=== PATIENT | female | born 1995 | race Caucasian/White ===

== ENCOUNTER 2023-05-12 21:09 | Outpatient (REF) | payer OTHER, SELFPAY ==
[2023-05-17 11:08] LABS: Age Gdln ACOG Testing Note (.); IGP, rfx Aptima HPV ASCU Note (.)
== END 2023-05-12 21:10 | disposition home or self-care (01) ==
LOC: LAB 21:09
PROVIDERS: Visit Provider Obstetrics & Gynecology
DX: Z12.4 Encounter for screening for malignant neoplasm of cervix (principal); Z11.51 Encounter for screening for human papillomavirus (HPV)
CPT/HCPCS: G0145

== ENCOUNTER 2023-06-09 11:37 | Outpatient (OUT) | payer OTHER, SELFPAY ==
[2023-06-12 15:09] LABS: AFP Value 42.1 ng/mL (.); Gest. Age on Collection Date 19.6 weeks (.); Gestat. Age Based On Ultrasound (.); Insulin Dep Diabetes No (.); Maternal Age At EDD 28.9 yr (.); OSBR Risk 1 IN 10000 (.); Results Report (.)
== END 2023-06-09 11:38 | disposition home or self-care (01) ==
PROVIDERS: Visit Provider Obstetrics & Gynecology
DX: Z34.92 Encounter for supervision of normal pregnancy, unspecified, second trimester (principal)
CPT/HCPCS: 36415; 82105

== ENCOUNTER 2023-06-28 09:56 | Outpatient (OUT) | payer OTHER, SELFPAY ==
--- NOTE | 2023-06-28 09:57 | US_ITS ---
[address] [address] Patient Name: RUEL READ MRN: [id number] date: 1995 Sex: F Assigned Patient Location: US Current Patient Location: US Accession/Order Number: [id number] Exam Date: 06/28/2023 10:06 Report Date: 06/28/2023 15:45 At the request of: YULIA ESTES Procedure: US OB anatomy EXAMINATION: US OB anatomy, US OB transvaginal HISTORY: SECOND TRIMESTER Z34.92 COMPARISON: No relevant comparison available. TECHNIQUE: Transabdominal sonographic examination was performed for obstetrical and evaluation. FINDINGS: Number: 1 Heart Rate: 126 H.B. /min Amniotic Fluid Volume: Subjectively normal Placental Location: Anterior with lower margin 5.8 cm from os Cervix Length: 3.5 cm, closed. ANATOMY: Normal Structures -cerebellum, choroid plexus, cisterna magna, lateral cerebral ventricles, orbits, midline falx, hard palate, four-chamber heart, RVOT, LVOT, stomach, kidneys, bladder, umbilical cord insertion into abdomen, three-vessel cord, cervical spine, thoracic spine, lumbar spine, sacral spine, right upper extremity, left upper extremity, right lower extremity, left lower extremity. SUBOPTIMALLY SEEN: None ABNORMALITIES: None BIOMETRY: BPD: 4.96 cm , 21 weeks 0 days HC: 19.60 cm 21 weeks 6 days AC: 15.51 cm 20 weeks 5 days FL: 3.85 cm 22 weeks 2 days EFW:425 g; 77% FL/AC: 24.82 FL/BPD: 77.62 HC/AC: 1.26 GESTATIONAL AGE: Age by EDC: 20 weeks 6 days SHADY by EDC: 11/09/2023 Age by current US: 21 weeks 3 days SHADY by current US: 11/05/2023 US/US OB anatomy IMPRESSION: 1. Single live intrauterine with growth detailed above. Electronically authenticated by: ALIS ECKERT Date: 06/28/2023 15:45
--- NOTE | 2023-06-28 09:58 | US_ITS ---
[address] [address] Patient Name: RUEL READ MRN: [id number] date: 1995 Sex: F Assigned Patient Location: US Current Patient Location: Accession/Order Number: [id number] Exam Date: 06/28/2023 10:06 Report Date: 06/28/2023 15:45 At the request of: YULIA ESTES Procedure: US OB transvaginal EXAMINATION: US OB anatomy, US OB transvaginal HISTORY: SECOND TRIMESTER Z34.92 COMPARISON: No relevant comparison available. TECHNIQUE: Transabdominal sonographic examination was performed for obstetrical and evaluation. FINDINGS: Number: 1 Heart Rate: 126 H.B. /min Amniotic Fluid Volume: Subjectively normal Placental Location: Anterior with lower margin 5.8 cm from os Cervix Length: 3.5 cm, closed. ANATOMY: Normal Structures -cerebellum, choroid plexus, cisterna magna, lateral cerebral ventricles, orbits, midline falx, hard palate, four-chamber heart, RVOT, LVOT, stomach, kidneys, bladder, umbilical cord insertion into abdomen, three-vessel cord, cervical spine, thoracic spine, lumbar spine, sacral spine, right upper extremity, left upper extremity, right lower extremity, left lower extremity. SUBOPTIMALLY SEEN: None ABNORMALITIES: None BIOMETRY: BPD: 4.96 cm , 21 weeks 0 days HC: 19.60 cm 21 weeks 6 days AC: 15.51 cm 20 weeks 5 days FL: 3.85 cm 22 weeks 2 days EFW:425 g; 77% FL/AC: 24.82 FL/BPD: 77.62 HC/AC: 1.26 GESTATIONAL AGE: Age by EDC: 20 weeks 6 days SHADY by EDC: 11/09/2023 Age by current US: 21 weeks 3 days SHADY by current US: 11/05/2023 US/US OB transvaginal IMPRESSION: 1. Single live intrauterine with growth detailed above. Electronically authenticated by: ALIS ECKERT Date: 06/28/2023 15:45
== END 2023-06-28 09:57 | disposition home or self-care (01) ==
LOC: US 09:56
PROVIDERS: Visit Provider Obstetrics & Gynecology
DX: Z34.92 Encounter for supervision of normal pregnancy, unspecified, second trimester (principal); Z3A.21 21 weeks gestation of pregnancy
CPT/HCPCS: 76805; 76817

== ENCOUNTER 2023-07-08 11:47 | Outpatient (OUT) | payer OTHER, SELFPAY ==
[2023-07-08 13:00] LABS: Basophils Percent Auto 0.1 % (0.2-2.0); Eosinophils Absolute Auto 0.1 10^3/uL (0.0-0.7); Eosinophils Percent Auto 0.8 % (0.9-7.0); Hematocrit 32.2 % (36.0-48.0); Immature Granulocytes Abs Auto 0.05 10^3/uL (0.00-0.03); Immature Granulocytes Pct Auto 0.6 % (0.0-0.5); Lymphocytes Absolute Auto 1.4 10^3/uL (1.2-3.8); Lymphocytes Percent Auto 18.6 % (20.5-60.0); Mean Corpuscular HGB Conc 34.2 g/dL (29.9-35.2); Mean Corpuscular Hemoglobin 29.3 pg (26.7-34.0); Mean Corpuscular Volume 85.9 fL (81.0-99.0); Mean Platelet Volume 12.2 fL (9.5-13.5); Monocytes Absolute Auto 0.4 10^3/uL (0.3-0.8); Monocytes Percent Auto 5.5 % (1.7-12.0); Neutrophils Absolute Auto 5.8 10^3/uL (1.4-6.5); Neutrophils Percent Auto 74.4 % (43.0-75.0); Platelet Count 133 10^3/uL (150-450); Red Blood Count 3.75 10^6/uL (4.20-5.40); Red Cell Distribution Width 13.2 % (11.0-15.0); White Blood Count 7.8 10^3/uL (4.0-11.0)
[2023-07-08 13:45] LABS: Glucose 1 Hour 119 mg/dL
== END 2023-07-08 11:48 | disposition home or self-care (01) ==
LOC: LAB 11:47
PROVIDERS: Visit Provider Obstetrics & Gynecology
DX: Z34.92 Encounter for supervision of normal pregnancy, unspecified, second trimester (principal)
CPT/HCPCS: 36415; 82950; 85025

== ENCOUNTER 2023-08-18 07:59 | Outpatient (OUT) | payer OTHER, SELFPAY | END 2023-08-18 08:00 | disposition home or self-care (01) | LOC: LAB 07:59 | PROVIDERS: Visit Provider Obstetrics & Gynecology | DX: O26.899 Other specified pregnancy related conditions, unspecified trimester (principal); Z67.91 Unspecified blood type, Rh negative | CPT/HCPCS: 36415; 86850; 86900; 86901 ==

== ENCOUNTER 2023-08-19 07:19 | Outpatient (RCR) | payer OTHER, SELFPAY ==
[2023-08-19 13:31] VITALS: BP 121/80; PULSE 86; RESP 18; TEMP 36.6; O2SAT 99
[2023-08-19] MEDS: RHO(D) IMMUNE GLOBULIN 1,500 UNIT SYRINGE 1500 UNIT IM (13:35)
--- NOTE | 2023-08-19 14:03 | PC.NURSE ---
Rhogam as per order left dorsal gluteal. Tolerated well. Instructed on s/s of rxn. explained will need to wait here for 15 to 20 mins. Given education on Rh-
== END 2023-08-21 23:59 | disposition home or self-care (01) ==
LOC: INF 07:19
PROVIDERS: Visit Provider Obstetrics & Gynecology
DX: O26.893 Other specified pregnancy related conditions, third trimester (principal); Z67.91 Unspecified blood type, Rh negative
CPT/HCPCS: 96372; J2790

== ENCOUNTER 2023-09-14 13:02 | Outpatient (OUT) | payer OTHER, SELFPAY ==
--- NOTE | 2023-09-14 13:05 | US_ITS ---
The [address] [address] Patient Name: RUEL READ MRN: [id number] date: 1995 Sex: F Assigned Patient Location: US Current Patient Location: US Accession/Order Number: [id number] Exam Date: 09/14/2023 13:06 Report Date: 09/14/2023 22:21 At the request of: YULIA ROBISON Procedure: US OB growth EXAMINATION: US OB growth HISTORY: SIZE INCONSISTENT WITH DATES COMPARISON: Ultrasound OB anatomy 06/28/2023 FINDINGS: Heart Rate: 148 bpm Number: One Position: Cephalic Amniotic Fluid Volume: 11.9 cm; normal range Maximum Vertical Pocket: 4.1 cm BIOMETRY: BPD: 8.45 cm; 34 weeks 0 days; 91% HC: 31.66cm; 35 weeks 4 days; 94% AC: 29.94 cm; 33 weeks 6 days; 93% FL: 6.72 cm; 34 weeks 4 days; 93 % EFW: 2391 g; 96% FL/AC: 22.44 FL/BPD: 79.53 HC/AC: 1.06 GESTATIONAL AGE: Age by EDC: 32 weeks 0 days SHADY by EDC: 11/09/2023 Age by US: 34 weeks 4 days SHADY by US: 10/22/2023 US/US OB growth IMPRESSION: 1. Single live intrauterine with growth detailed above. 2. Estimated weight is at [address] Robison was notified of these findings by nuclear equipment test engineer at time of imaging. Electronically authenticated by: ALIS ECKERT Date: 09/14/2023 22:21
== END 2023-09-14 13:03 | disposition home or self-care (01) ==
LOC: US 13:02
PROVIDERS: Visit Provider Obstetrics & Gynecology
DX: O26.843 Uterine size-date discrepancy, third trimester (principal); Z3A.34 34 weeks gestation of pregnancy
CPT/HCPCS: 76816

== ENCOUNTER 2023-10-05 13:10 | Emergency (ER) | payer OTHER, SELFPAY | END 2023-10-05 13:15 | disposition left against medical advice (07) | LOC: ER 13:14 | DX: Z53.8 Procedure and treatment not carried out for other reasons (principal) ==

== ENCOUNTER 2023-10-05 13:12 | Observation (INO) | payer OTHER, SELFPAY ==
[2023-10-05 13:33] VITALS: BP 131/73; PULSE 102
[2023-10-05 13:59] LABS: Bilirubin Urine NEGATIVE (NEGATIVE); Blood Urine TRACE-I (NEGATIVE); Clarity Urine CLEAR (CLEAR); Color Urine YELLOW (YELLOW); Glucose Urine UA 100 mg/dL (NEGATIVE); Ketones Urine NEGATIVE (NEGATIVE); Leukocyte Esterase Urine SMALL (NEGATIVE); Nitrite Urine NEGATIVE (NEGATIVE); Protein Urine TRACE mg/dL (NEG/TRACE); Specific Gravity Urine >=1.030 (1.005-1.025); Urobilinogen Urine 0.2 EU/dL (0.2-1.0)
[2023-10-05 14:10] LABS: Urine Microscopic Indicated YES
[2023-10-05 14:24] LABS: Bacteria Urine MODERATE #/HPF (NONE SEEN); Crystals Seen? Seen #/HPF (None Seen); Mucus Urine SMALL (NONE SEEN); Squamous Epithelial Cell Urine MODERATE #/LPF (NONE/RARE)
[2023-10-05 14:25] LABS: Calcium Oxalate Crystals Urine MODERATE; Cast Seen? NONE SEEN #/LPF (NONE SEEN); Urine Culture Indicated YES
== END 2023-10-05 15:45 | disposition home or self-care (01) ==
PROVIDERS: Admitting Provider Obstetrics & Gynecology; Visit Provider Obstetrics & Gynecology
DX: O26.899 Other specified pregnancy related conditions, unspecified trimester (principal); R10.2 Pelvic and perineal pain; O36.8190 Decreased fetal movements, unspecified trimester, not applicable or unspecified; Z3A.00 Weeks of gestation of pregnancy not specified
CPT/HCPCS: 59025; 81001; 87086; G0378; G0379

== ENCOUNTER 2023-10-07 19:28 | Outpatient (REF) | payer OTHER, SELFPAY | END 2023-10-07 19:29 | disposition home or self-care (01) | LOC: LAB 19:28 | PROVIDERS: Visit Provider Obstetrics & Gynecology | DX: Z34.93 Encounter for supervision of normal pregnancy, unspecified, third trimester (principal) | CPT/HCPCS: 87081 ==

== ENCOUNTER 2023-10-18 08:51 | Outpatient (OUT) | payer OTHER, SELFPAY ==
--- NOTE | 2023-10-18 08:53 | US_ITS ---
The [address] [address] Patient Name: RUEL READ MRN: [id number] date: 1995 Sex: F Assigned Patient Location: US Current Patient Location: US Accession/Order Number: [id number] Exam Date: 10/18/2023 08:54 Report Date: 10/18/2023 15:12 At the request of: YULIA ESTES Procedure: US OB growth EXAMINATION: US OB growth HISTORY: SIZE INCONSISTENT WITH DATES COMPARISON: Ultrasound OB growth 09/14/2023 FINDINGS: Heart Rate: 148.0 bpm Number: 1.0 Position: CEPHALIC Amniotic Fluid Volume: 18.1 cm Maximum Vertical Pocket: 7.0 cm BIOMETRY: BPD: 9.0 cm cm; 36 weeks 2 days; 48% HC: 34.7 cmcm; 40 weeks 1 days ; 92% AC: 35.2 cm cm; 39 weeks 1 days; >97% FL: 7.5 cm cm; 38 weeks 2 days; 82% EFW: 3561.4 grams; 93% FL/AC: 21.3 FL/BPD: 83.5 HC/AC: 1.0 GESTATIONAL AGE: Age by EDC: 36 weeks 6 days SHADY by EDC: 11/09/2023 Age by US: 38 weeks 3 days SHADY by US: 10/29/2023 US/US OB growth IMPRESSION: 1. Single live intrauterine with growth detailed above. 2. Abdominal circumference is greater than 97th percentile. Electronically authenticated by: ALIS ECKERT Date: 10/18/2023 15:12
== END 2023-10-18 08:52 | disposition home or self-care (01) ==
LOC: US 08:51
PROVIDERS: Visit Provider Obstetrics & Gynecology
DX: O26.843 Uterine size-date discrepancy, third trimester (principal); Z3A.36 36 weeks gestation of pregnancy
CPT/HCPCS: 76816

== ENCOUNTER 2023-10-19 14:44 | Outpatient (OUT) | payer OTHER, SELFPAY ==
[2023-10-19 15:02] VITALS: BP 127/83; PULSE 88; TEMP 36.6
[2023-10-19 15:44] LABS: Bilirubin Urine NEGATIVE (NEGATIVE); Blood Urine MODERATE (NEGATIVE); Clarity Urine CLEAR (CLEAR); Color Urine LT. YELLOW (YELLOW); Glucose Urine UA 250 mg/dL (NEGATIVE); Ketones Urine NEGATIVE (NEGATIVE); Leukocyte Esterase Urine TRACE (NEGATIVE); Nitrite Urine NEGATIVE (NEGATIVE); Protein Urine TRACE mg/dL (NEG/TRACE); Specific Gravity Urine 1.025 (1.005-1.025); Urine Microscopic Indicated YES; Urobilinogen Urine 0.2 EU/dL (0.2-1.0)
[2023-10-19 15:52] LABS: Bacteria Urine LARGE #/HPF (NONE SEEN); Mucus Urine MODERATE (NONE SEEN); Squamous Epithelial Cell Urine MANY #/LPF (NONE/RARE)
[2023-10-19 15:54] LABS: Urine Culture Indicated YES
[2023-10-19 19:24] VITALS: BP 127/72; PULSE 78; TEMP 36.3
== END 2023-10-19 21:53 | disposition home or self-care (01) ==
LOC: FBCO 14:45 → FBC 14:49
PROVIDERS: Visit Provider Midwife
DX: O26.843 Uterine size-date discrepancy, third trimester (principal)
CPT/HCPCS: 59025; 81001; 87086

== ENCOUNTER 2023-10-25 09:35 | Inpatient (IN) | payer OTHER, SELFPAY ==
[2023-10-25] VITALS (39 sets, daily range): BP systolic 109–145; BP diastolic 54–83; PULSE 61–93; RESP 16–18; TEMP 35.4–36.8
[2023-10-25 11:23] LABS: Basophils Percent Auto 0.2 % (0.2-2.0); Eosinophils Percent Auto 0.5 % (0.9-7.0); Hematocrit 35.4 % (36.0-48.0); Hemoglobin 11.6 g/dL (12.0-16.0); Immature Granulocytes Abs Auto 0.02 10^3/uL (0.00-0.03); Immature Granulocytes Pct Auto 0.3 % (0.0-0.5); Lymphocytes Absolute Auto 1.6 10^3/uL (1.2-3.8); Lymphocytes Percent Auto 23.6 % (20.5-60.0); Mean Corpuscular HGB Conc 32.8 g/dL (29.9-35.2); Mean Corpuscular Hemoglobin 27.4 pg (26.7-34.0); Mean Corpuscular Volume 83.5 fL (81.0-99.0); Mean Platelet Volume 10.7 fL (9.5-13.5); Monocytes Absolute Auto 0.5 10^3/uL (0.3-0.8); Monocytes Percent Auto 7.2 % (1.7-12.0); Neutrophils Absolute Auto 4.5 10^3/uL (1.4-6.5); Neutrophils Percent Auto 68.2 % (43.0-75.0); Platelet Count 184 10^3/uL (150-450); Red Blood Count 4.24 10^6/uL (4.20-5.40); Red Cell Distribution Width 13.9 % (11.0-15.0); White Blood Count 6.7 10^3/uL (4.0-11.0)
[2023-10-25 11:33] LABS: Amphetamine Screen Urine NEGATIVE (NEGATIVE); Barbiturates Screen Urine NEGATIVE (NEGATIVE); Benzodiazepines Screen Urine NEGATIVE (NEGATIVE); Buprenorphine Screen Urine NEGATIVE (NEGATIVE); Cannabinoid Screen Urine NEGATIVE (NEGATIVE); Cocaine Screen Urine NEGATIVE (NEGATIVE); Methadone Screen Urine NEGATIVE (NEGATIVE); Methamphetamines Screen Urine NEGATIVE (NEGATIVE); Opiate Screen Urine NEGATIVE (NEGATIVE); Oxycodone Screen Urine NEGATIVE (NEGATIVE); Phencyclidine Screen Urine NEGATIVE (NEGATIVE); Tricyclic Antidepressant Urine NEGATIVE (NEGATIVE)
[2023-10-25] MEDS: 0.9 % SODIUM CHLORIDE 1,000 ML 125 ML IV (12:00)
[2023-10-25] MEDS: OXYTOCIN/0.9 % SODIUM CHLORIDE 10 UNITS/500 ML PLAST..BAG 6 UNIT IV (12:00)
[2023-10-25] MEDS: ROPIVACAINE HCL/PF 400 MG/200 ML PREMIX 8 MG EPIDURAL (15:24)
--- NOTE | 2023-10-25 17:07 | PM.OBPRCVD ---
Procedure Intrapartal events: None Induction method: none Delivery augmentation: rupture of membranes and pitocin Delivery monitor: external FHT and external uterine Route of delivery: Episiotomy Description: midline Laceration description: perineal - 2nd degree Delivery repair: Vicryl Estimated blood loss (mL): 300 Anesthesia type: Epidural Disposition: floor Infant Delivery date: 10/25/23 Gender: female presentation: vertex Placental delivery description: Spontaneous cord description: 3 Vessels
[2023-10-25] MEDS: LIDOCAINE HCL 1% 200 MG/20 ML MDV INJ (17:25)
[2023-10-25] MEDS: OXYTOCIN/0.9 % SODIUM CHLORIDE 20 UNITS/1,000 ML PLAST..BAG 125 UNIT IV (17:25)
[2023-10-25] MEDS: IBUPROFEN 400 MG TABLET 800 MG PO (18:09)
--- NOTE | 2023-10-25 19:11 | W.PC.ACHO ---
Registration Status: ADM IN Primary Language: Salvadorean Preferred Language: Salvadorean Report given to Tameka Hathaway RN. Care relinquished. Active Medications Generic Name Dose Route Start Last Admin Trade Name Freq PRN Reason Stop Dose Admin Al Hydroxide/Mg Hydroxide 2,400 mg 10/25/23 17:39 Magnesium Hydroxide 2,400 Mg/10 Ml Oral.Susp PO Q6H PRN Dyspepsia Benzocaine/Menthol 1 applic 10/25/23 17:39 Benzocaine/Menthol 85 Gram Davis Bottle TOPICAL Q2H PRN Pain Carboprost Tromethamine 250 mcg 10/25/23 10:03 Carboprost Tromethamine 250 Mcg/Ml 1 Ml Vial IM 10/27/23 10:03 Q15M PRN Bleeding Diphenhydramine HCl 25 mg 10/25/23 13:43 Diphenhydramine Hcl 50 Mg/Ml (1ml) Vial IV 10/26/23 13:45 Q6H PRN Itching Diphtheria/Pertussis/Tetanus Vacc 0.5 ml 10/27/23 09:00 Adacel Diph,Pertuss(Acell),Tet Vac/Pf 0.5 Ml Adult Syringe IM 10/27/23 09:01 .ONCE ONE Docusate Sodium 100 mg 10/26/23 09:00 Docusate Sodium 100 Mg Capsule PO BID CANDIDA Ephedrine Sulfate 5 mg 10/25/23 13:43 Ephedrine Sulfate 50 Mg/Ml Vial IV 10/26/23 13:45 Q5M PRN Blood Pressure - Low Sodium Chloride 1,000 mls @ 125 mls/hr 10/25/23 10:15 10/25/23 12:00 Sodium Chloride 0.9% 1,000 Ml IV 125 mls/hr .Q8H CANDIDA Administration Oxytocin/Sodium Chloride 10 units in 500 mls @ 6 mls/hr 10/25/23 10:15 10/25/23 16:04 Pitocin 10 Unit/500 Ml-Ns IV 2 milliunit/min CONT CANDIDA 6 mls/hr Infusion Protocol 2 MILLIUNIT/MIN Ropivacaine/Sodium Chloride 400 mg in 200 mls @ 6 mls/hr 10/25/23 13:45 10/25/23 15:24 Naropin 0.2% 400 Mg/200 Ml Bag EPIDURAL 8 mls/hr Q24H CANDIDA Administration Ibuprofen 800 mg 10/25/23 17:39 10/25/23 18:09 Ibuprofen 400 Mg Tablet PO 800 mg Q8H PRN Administration Pain Lidocaine 5 ml 10/25/23 10:03 Lidocaine Viscous 2% 15 Ml Solution TOPICAL ONCE PRN Pain Lidocaine 1 ml 10/25/23 10:03 10/25/23 17:25 Lidocaine Hcl 1% 200 Mg/20 Ml Mdv INJ 1 ml ONCE PRN Administration Pain Lidocaine 5 ml 10/25/23 13:43 Lidocaine Hcl 2% Pf 100 Mg/5 Ml Vial INJ 10/26/23 13:44 Q1H PRN Pain Measles/Mumps/Rubella Vaccine Live 0.5 ml 10/27/23 09:00 Measles,Mumps,Rubella Vacc/Pf 0.5 Ml Vial SQ 10/27/23 09:01 .ONCE ONE Methylergonovine Maleate 0.2 mg 10/25/23 10:03 Methylergonovine Maleate 0.2 Mg/Ml Ampule IM 10/27/23 10:03 ONCE PRN Uterine Contractility/Contract Methylergonovine Maleate 0.2 mg 10/25/23 10:03 Methylergonovine Maleate 0.2 Mg Tablet PO 10/27/23 10:03 Q4H PRN Uterine Contractility/Contract Misoprostol 600 mcg 10/25/23 10:03 Misoprostol 100 Mcg Tablet PO 10/27/23 10:03 ONCE PRN Uterine Bleeding Misoprostol 800 mcg 10/25/23 10:03 Misoprostol 100 Mcg Tablet SL 10/27/23 10:03 ONCE PRN Uterine Bleeding Misoprostol 1,000 mcg 10/25/23 10:03 Misoprostol 100 Mcg Tablet AK 10/27/23 10:03 ONCE PRN Uterine Bleeding Naloxone HCl 0.4 mg 10/25/23 17:39 Naloxone Hcl 0.4 Mg/Ml Vial IV ONCE PRN Opiate Reversal Ondansetron HCl 4 mg 10/25/23 10:03 Ondansetron Pf 4 Mg/2 Ml Vial IV Q6H PRN Nausea And Vomiting Ondansetron HCl 4 mg 10/25/23 10:03 Ondansetron 4 Mg Rapdis Tablet SL Q6H PRN Nausea And Vomiting Oxytocin 10 unit 10/25/23 10:03 Oxytocin 10 Unit/Ml Vial IM 10/27/23 10:03 ONCE PRN Bleeding Simethicone 80 mg 10/25/23 17:39 Simethicone 80 Mg Tab.Chew PO QID PRN Abdominal Distention Witch Alysia/Glycerin 1 pad 10/25/23 17:39 Glycerin/Witch Alysia Pads TOPICAL Q2H PRN Pain Diet Category Date Time Status Regular Consistency Diet Diet 10/25/23 17:39 Active IV Insertion/Site Date of IV Line Insertion [20g 10/25/23 right Hand] IV Insertion Time [20g right 11:00 Hand] Neurology Patient orientation (short person,place,time,situation list)
[2023-10-25] MEDS: GLYCERIN/WITCH HAZEL PADS 1 PAD TOPICAL (19:42)
[2023-10-25] MEDS: BENZOCAINE/MENTHOL 85 GRAM SPRAY BOTTLE 1 APPLIC TOPICAL (19:42)
[2023-10-26] MEDS: RHO(D) IMMUNE GLOBULIN 1,500 UNIT SYRINGE 1500 UNIT IV (00:05)
[2023-10-26 04:10] VITALS: BP 111/57; PULSE 64; TEMP 36.8
[2023-10-26 06:54] LABS: Red Blood Count 3.28 10^6/uL (4.20-5.40); White Blood Count 8.3 10^3/uL (4.0-11.0)
[2023-10-26 06:55] LABS: Basophils Percent Auto 0.1 % (0.2-2.0); Eosinophils Percent Auto 0.2 % (0.9-7.0); Hematocrit 28.1 % (36.0-48.0); Immature Granulocytes Pct Auto 0.4 % (0.0-0.5); Lymphocytes Absolute Auto 2.1 10^3/uL (1.2-3.8); Lymphocytes Percent Auto 25.6 % (20.5-60.0); Mean Corpuscular Hemoglobin 27.4 pg (26.7-34.0); Mean Corpuscular Volume 85.7 fL (81.0-99.0); Mean Platelet Volume 11.5 fL (9.5-13.5); Monocytes Absolute Auto 0.5 10^3/uL (0.3-0.8); Monocytes Percent Auto 5.9 % (1.7-12.0); Neutrophils Absolute Auto 5.7 10^3/uL (1.4-6.5); Neutrophils Percent Auto 67.8 % (43.0-75.0); Platelet Count 142 10^3/uL (150-450); Red Cell Distribution Width 13.8 % (11.0-15.0)
[2023-10-26 06:56] LABS: Immature Granulocytes Abs Auto 0.03 10^3/uL (0.00-0.03)
[2023-10-26 08:47] VITALS: BP 119/72; PULSE 72
[2023-10-26] MEDS: DOCUSATE SODIUM 100 MG CAPSULE PO ×2 (08:48→22:27)
--- NOTE | 2023-10-26 08:48 | P.OBPN_ITS ---
OB - PN: Subj Subjective Patient comments: no complaints and pain well controlled [place] status: doing well and well [place] feeding status: exclusively Exam Constitutional Vital Signs, click to edit/add: Last Vital Signs Temp 98.2 F 10/26/23 04:10 Pulse 72 10/26/23 08:47 Resp 16 10/25/23 19:30 BP 119/72 10/26/23 08:47 O2 Del Method Room Air 10/25/23 19:30 Documenting provider has reviewed patient's vital signs: yes Common normals: no apparent distress and oriented x3 General appearance: cooperative and comfortable Orientation/consciousness: Yes awake, Yes oriented to person, Yes oriented to place and Yes oriented to time HENMT Common normals: normocephalic Eye Common normals: EOMs intact bilaterally Neck & C-Spine Common normals: full ROM and no lymphadenopathy Lymph Lymphatic: no lymphadenopathy noted Chest Common normals: inspection of chest normal Respiratory Common normals: normal respiratory effort Effort & inspection: able to speak in complete sentences Auscultation: clear to auscultation bilaterally Cardio Common normals: regular rate, regular rhythm and no murmurs GI Common normals: Normal to inspection, nondistended, normoactive bowel sounds present Common normals: no CVA tenderness Back & Pelvis Common normals: no CVA tenderness Extremity Common normals: normal to inspection Neuro Common normals: oriented x3 Sensorium/orientation: awake, alert, oriented to person, oriented to place and oriented to time Psych Common normals: mental status grossly normal and thought process normal Results Labs Labs: Short CBC 10/25/23 10/26/23 Range/Units 11:00 05:49 WBC 6.7 8.3 (4.0-11.0) 10^3/uL Hgb 11.6 L 9.0 L (12.0-16.0) g/dL Hct 35.4 L 28.1 L (36.0-48.0) % Plt Count 184 142 L (150-450) 10^3/uL OB - PN: A/P Plan - Vaginal Delivery day: 1 Plan: routine care Time Spent with Patient Time: Total time spent is greater than 50% in coordination of care (as documented) at patient's floor/unit and/or counseling patient: Total time spent with greater than 50% in coordination of care (as documented) at patient's floor/unit and/or counseling patient: less than 15 minutes
[2023-10-26 09:00] VITALS: RESP 18; TEMP 36.9
[2023-10-26] MEDS: IBUPROFEN 400 MG TABLET 800 MG PO ×2 (15:15→22:56)
[2023-10-26 15:38] VITALS: BP 125/79; PULSE 69
[2023-10-26 15:51] VITALS: BP 125/79; TEMP 36.7
[2023-10-26 15:54] VITALS: RESP 18
[2023-10-27 00:01] VITALS: TEMP 35.7
[2023-10-27 00:02] VITALS: BP 109/63; PULSE 58
[2023-10-27] MEDS: DOCUSATE SODIUM 100 MG CAPSULE PO (08:52)
[2023-10-27] MEDS: IBUPROFEN 400 MG TABLET 800 MG PO (08:52)
[2023-10-27 08:53] VITALS: BP 127/81; PULSE 64
[2023-10-27 09:16] VITALS: RESP 16; TEMP 36.9
--- NOTE | 2023-10-27 11:07 | P.OBPN_ITS ---
OB - PN: Subj Subjective Patient comments: no complaints and pain well controlled [place] status: doing well Exam Constitutional Vital Signs, click to edit/add: Last Vital Signs Temp 98.4 F 10/27/23 09:16 Pulse 64 10/27/23 08:53 Resp 16 10/27/23 09:16 BP 127/81 10/27/23 08:53 O2 Del Method Room Air 10/27/23 09:16 Documenting provider has reviewed patient's vital signs: yes Common normals: no apparent distress Respiratory Common normals: normal respiratory effort and clear to auscultation bilaterally Cardio Common normals: regular rate and regular rhythm GI Common normals: Normal to inspection, nondistended, normoactive bowel sounds present Extremity Common normals: no clubbing, cyanosis or edema and no calf tenderness OB - PN: A/P Plan - Vaginal Delivery day: 2 Plan: routine care, discharge home and follow up 6 weeks Time Spent with Patient Time: Total time spent is greater than 50% in coordination of care (as documented) at patient's floor/unit and/or counseling patient: Total time spent with greater than 50% in coordination of care (as documented) at patient's floor/unit and/or counseling patient: less than 15 minutes
== END 2023-10-27 11:30 | disposition home or self-care (01) | DRG 560 ==
PROVIDERS: Admitting Provider Obstetrics & Gynecology; Visit Provider Obstetrics & Gynecology
DX: O70.1 Second degree perineal laceration during delivery (principal); Z3A.37 37 weeks gestation of pregnancy; Z37.0 Single live birth; Z88.5 Allergy status to narcotic agent
CPT/HCPCS: 36415; 59050; 59410; 80307; 85025; 86850; 86900; 86901; 96372; 96374; 96376; J2790

== ENCOUNTER 2023-11-01 19:30 | Outpatient (OUT) | payer OTHER, SELFPAY ==
--- NOTE | 2023-11-01 20:35 | PC.NURSE ---
Meena and 7 day old Sowmya arrive for support as was seen in PEDS office to day and has weight loss of 15.6%. Mom denies complications with labor, no risk factors with , augmented for advanced dilatation, epidural with no relief of labor pain. and immediate skin to skin, latches and feeds well after delivery. Mom noted no sore nipples, milk in as able to pump 3-4 oz from one breast after baby nursed the other side. Currently only offering one breast per feed as baby appears satisfied. Infant weight 3240 gms pre-feed, to right breast, latches easily in cradle hold, audible swallows noted , good rhythm for suck swallow breast. Nursed 10 min and off breast. Post-feed weight 3270 gms. Burped and to second breast, again placed in cradle hold, to breast,latch but has short choppy sucks. Noted to have chin tucked to chest due to positioning. Unlatched and to breast in cross cradle hold. Chin now up off chest, tucked into breast with nose off breast. Immediate change is suck pattern, smooth suck swallow breathe rhythm noted. Audible swallows/gulps noted. Mom denies nipple pain at any point in feeding. Active nursing noted 12 minutes, to scales and additional 40 gms noted. Total of 70 gms up after feed. Discussed easy milk to assist in weight increase of 15ml to 45 ml. Affirmed to offer extra milk after BF effort, but not to cause vomiting/regurge of feed. jaundiced in color, states serum level was 15-16 today Mom to return to PEDS office 11/02/2023 0840 for weight check. Peds will consider re-admit if weight has not increased. plans for weight check 11/03/2023 1245 for continued support. Mom is motivated to continue to breastfeed. Willing to pump 10 min after breast effort to ensure supply and able to supplement with breast milk. See Visit Instructions. Mom and baby leave ambulatory, no further questions or concerns. Aware to call as needed and to keep scheduled appointments. Meena states feel better now on way out of door.
== END 2023-11-01 20:20 | disposition home or self-care (01) ==
PROVIDERS: Visit Provider Obstetrics & Gynecology
DX: Z39.1 Encounter for care and examination of lactating mother (principal)
CPT/HCPCS: G0463

== ENCOUNTER 2023-11-03 13:43 | Outpatient (OUT) | payer OTHER, SELFPAY ==
--- NOTE | 2023-11-03 14:15 | PC.NURSE ---
1245 Meena and Sujey present for weight check. Sujey is asleep in carrier. Mom states, she just finished eating before we came. Nb to scales after diaper change for a heavy wet, awakens with stimuli and tracks movements with eyes. Weight 3270 gms. 7# 3.5 ounces. Mother verbalizes she has been able to adhere to feeding plan and will continue. Mother will call if unable to adhere to plan or if anything is needed. Scheduled to return Wednesday @ 08. Sujey sees [employer] tomorrow.
== END 2023-11-03 13:44 | disposition home or self-care (01) ==
LOC: FBCO 13:44
PROVIDERS: Visit Provider Obstetrics & Gynecology
DX: Z39.1 Encounter for care and examination of lactating mother (principal)

== ENCOUNTER 2023-11-08 09:15 | Outpatient (OUT) | payer OTHER, SELFPAY | END 2023-11-08 09:16 | disposition home or self-care (01) | LOC: FBCO 09:18 | PROVIDERS: Visit Provider Obstetrics & Gynecology | DX: Z34.93 Encounter for supervision of normal pregnancy, unspecified, third trimester (principal) ==

== ENCOUNTER 2023-11-24 12:34 | Outpatient (OUT) | payer OTHER, SELFPAY ==
--- NOTE | 2023-11-24 13:56 | PC.NURSE ---
Val and Sowmya arrive for support. Baby is now 4 weeks old and remains below weight. BW 8-7 and today's weight 8-2 at [facility] office. Val seen here for follow up after delivery and doing well. Latch and positioning appropriate, milk in and couplet transferring well. Returned for follow up weight as needed and gain slow. feed observed and again , no concerns noted. Today Baby shows no signs of oral restrictions visually, adequate outputs and number of feeds per 24 hours. Mom tearful as she is concerned for lack of weight gain. Mom reports is now instructed to nurse baby on 1 breast for 10 minutes and pump the other breast at same time. Then to give 2 oz of fresh pumped milk that has been fortified with powder formula as directed. Mom states has plenty of milk as she is able to pump 7 oz from side baby not nursing on in the 10 minute window. Uses this pumped milk for supplement. LC and mom discuss concerns of over supply and not obtaining hind milk higher fat content milk. Baby does not display gassiness, fussiness or bright green colored stools typical for over supply, but also is not gaining weight appropriately. Plan that mom agrees with include, removing all obvious dairy products from her diet (1st child had severe milk allergy), Pumping both breasts prior to latching infant for feed at the breast, encouraging availability of higher fat content milk, and increasing supplement to 3 oz of fortified milk every 2-3 hours. Catch up milk amounts are approximately 25.3 oz intake daily. (9 feeds X 3 oz =27 oz total intake) Additionally, infant will have intake from time at the breast amount taken in undetermined each feed. Val tearful, states feels like I am failing her as a mom, like I produce the milk but it's not making her grow . Support and validation for feelings given. Discussed options of continuing to breastfeed and work through plan set by [employer], or to stop if feels that is better option. Val prefers to continue to work through challenges until after swallow study is complete and trying other recommendations. Support given and scheduled for visit 11/30/2023 for further support after her visit with [facility] earlier in the AM. Leaves feeling able to continue efforts and follow through.
== END 2023-11-24 14:15 | disposition home or self-care (01) ==
PROVIDERS: Visit Provider Obstetrics & Gynecology
DX: Z39.1 Encounter for care and examination of lactating mother (principal)

== ENCOUNTER 2023-11-30 08:15 | Outpatient (OUT) | payer OTHER, SELFPAY ==
--- OUTSIDE RECORDS SUMMARY | 2023-11-30 08:20 | XMS_ITS | CCD ---
Author Name Unknown Address 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 Name Role Phone Unavailable Primary Care Provider UnavailCharli Browne Primary Care Physician Kevin BENAVIDEZ, Keyon Brandon Primary Care Provider 1( [phone] ANTHONY Carl Attending UnavailKeyon Lockett Unavailable Evan Moyer Attending Unavailable LISHA, DR DRUMMOND LISTED Consulting Unavailronald BAXTER, DR NICOLE Primary Care Unavailable MEERA ., DR BENDER Attending Unavailable MEERA ., DR BENDER Admitting Unavailable ISRAEL BILLS Referring Unavailable ISRAEL BILLS Referring Unavailable ISRAEL BILLS Referring Unavailable KEYON BROWN Primary Care Unavailable KEYON BROWN Primary Care Unavailable OTTO INGRAM Attending Unavailable KEYON BROWN Primary Care Unavailable BEST THORNE Attending Unavailable KEYON BROWN Primary Care Unavailable SHA RUELAS Attending Unavailable ISRAEL BILLS Referring Unavailable KEYON BROWN Primary Care Unavailable KEYON BROWN Primary Care Unavailable ISRAEL BILLS Referring Unavailable YULIA ESTES Attending Unavailable YULIA ESTES Attending Unavailable YULIA ESTES Attending Unavailable Allergies Allergy Classification Reported Allergen(s) Allergy Type Date of Onset Reaction(s) Facility (6 sources) Acetaminophen / HYDROcodone Drug Allergy 7 Rash [facility] (6 sources) Acetaminophen / oxyCODONE Drug Allergy 6 Rash [facility] (9 sources) Codeine; Translations: [codeine] Drug Allergy 7 Rash, Cutaneous eruption (morphologic abnormality) [facility] (3 sources) Acetaminophen / HYDROcodone; Translations: [acetaminophen-hy drocodone] Drug Allergy Hives [facility] (3 sources) Acetaminophen / oxyCODONE; Translations: [acetaminophen-ox ycodone] Drug Allergy Cutaneous eruption (morphologic abnormality) [facility] (1 source) Acetaminophen / HYDROcodone Drug Allergy [facility] (1 source) Acetaminophen / oxyCODONE Drug Allergy [facility] (1 source) Codeine Drug Allergy [facility] Medications Current Medications Medication Drug Class(es) Dates Sig (Normalized) Sig (Original) amoxicillin 875 mg / clavulanate 125 mg oral tablet (1 source) Penicillin-class Antibacterial Start: 09-14-2021 End: 09-24-2021 take 1 tablet by mouth twice daily amoxicillin-clavu lanate (AUGMENTIN) 875-125 MG per tablet Take 1 tablet by mouth 2 times daily for 10 days 20 tablet 0 09/14/2021 09/24/2021 Active 12 hr dextromethorphan hydrobromide 60 mg / guaiFENesin 1200 mg extended release oral tablet (6 sources) Uncompetitive D-ciidju-M-aspartate Receptor Antagonist, Sigma-1 Agonist Start: 09-14-2021 take 1 tablet by mouth every twelve hours as needed for cough Dextromethorphan- guaiFENesin 60-1200 MG TB12 Take 1 tablet by mouth every 12 hours as needed (COUGH CONGESTION) 28 tablet 0 09/14/2021 Active dextromethorphan hydrobromide 3 mg/ml / promethazine hydrochloride 1.25 mg/ml oral solution (6 sources) Phenothiazine, Uncompetitive W-iiixra-Y-aspartate Receptor Antagonist, Sigma-1 Agonist Start: 05-31-2018 promethazine-dext romethorphan (PROMETHAZINE-DM) 6.25-15 MG/5ML syrup Take 5 mLs by mouth 4 times daily as needed for Cough 120 mL 0 05/31/2018 Active dicyclomine hydrochloride 20 mg oral tablet (7 sources) Anticholinergic Start: 07-20-2015 End: 12-18-2022 dicyclomine (BENTYL) 20 MG tablet ibuprofen 800 mg oral tablet (1 source) Nonsteroidal Anti-inflammatory Drug Start: 06-01-2022 End: 06-21-2022 take 1 tablet by mouth three times daily at mealtime, then take 4 tablets by mouth once daily ibuprofen 800 mg Tab 800 mg = 1 tab(s), Oral, TID, Take with food. Not to exceed 3200 mg/day, X 10 day(s), # 30 tab(s), Refills(s) 1, Pharmacy: [id number], 170, cm, 06/01/22 12:55:00 EDT, Height/Length Dosing, 91.3, kg, 06/01/22 12:55:00 EDT, Weight Dosing Start Date: 06/01/22 Stop Date: 06/21/22 Status: Ordered loperamide hydrochloride 2 mg oral capsule (1 source) Opioid Agonist Start: 12-04-2022 End: 12-14-2022 take 1 capsule by mouth four times daily as needed for diarrhea loperamide (RA ANTI-DIARRHEAL) 2 MG capsule Take 1 capsule by mouth 4 times daily as needed for Diarrhea 20 capsule 0 12/04/2022 12/14/2022 Active meloxicam 7.5 mg oral tablet (6 sources) Nonsteroidal Anti-inflammatory Drug Start: 07-12-2015 take 1 tablet by mouth once daily meloxicam (MOBIC) 7.5 MG tablet Indications: Rib pain on right side Take 1 tablet by mouth daily 30 tablet 3 07/12/2015 Active methocarbamol 500 mg oral tablet (6 sources) Muscle Relaxant take 1 tablet by mouth four times daily methocarbamol (ROBAXIN) 500 MG tablet Take 500 mg by mouth 4 times daily 0 Active omeprazole 20 mg delayed release oral capsule (6 sources) Proton Pump Inhibitor take 1 capsule by mouth once daily omeprazole (PRILOSEC) 20 MG capsule Take 20 mg by mouth daily 0 Active ondansetron 4 mg oral tablet (4 sources) Serotonin-3 Receptor Antagonist Start: 12-04-2022 take 1 tablet by mouth every eight hours as needed for nausea ondansetron (ZOFRAN) 4 MG tablet Take 1 tablet by mouth every 8 hours as needed for Nausea or Vomiting 12 tablet 0 12/04/2022 Active Multivitamins with Vitamin B Complex, Vitamin C, Minerals and L-Methylfolate oral capsule (2 sources) Start: 01-19-2017 Multivitamins with Vitamin B Complex, Vitamin C, Minerals and L-Methylfolate oral capsule 1 cap(s), Oral, Daily, 30 cap(s), Refill(s) 0 Start Date: 01/19/17 Status: Ordered Zofran ODT 4 mg Tab-Dis (1 source) Start: 09-03-2022 take 1 tablet by mouth three times daily Zofran ODT 4 mg Tab-Dis 4 mg = 1 tab(s), Oral, TID, # 15 tab(s), Refills(s) 0, Pharmacy: [id number], 170, cm, 09/03/22 14:31:00 EDT, Height/Length Dosing, 92, kg, 09/03/22 14:31:00 EDT, Weight Dosing Start Date: 09/03/22 Status: Ordered Problems Active Problems Problem Classification Problem Date Documented Da te Episodic/Chronic Acute bronchitis (1 source) Subacute bronchitis; Translations: [Acute bronchitis, unspecified] Episodic Esophageal disorders (2 sources) Acid reflux 08-22-2016 Chronic Fracture of lower limb (4 sources) Closed fracture of upper end of fibula; Translations: [Other fracture of upper and lower end of right fibula, subsequent encounter for closed fracture with routine healing] Onset: 01-29-2023 Episodic Headache; including migraine (1 source) Headache; including migraine; Translations: [Headache, unspecified] Onset: 05-05-2023 Intestinal infection (2 sources) Intestinal infectious disease; Translations: [Other specified intestinal infections] Onset: 12-08-2022 Episodic Other injuries and conditions due to external causes (1 source) Injury of right ankle; Translations: [Unspecified injury of right ankle, initial encounter] Episodic Other nervous system disorders (1 source) Carpal tunnel syndrome of left wrist; Translations: [Carpal tunnel syndrome, left upper limb] Onset: 06-01-2022 Chronic Other nervous system disorders (1 source) Carpal tunnel syndrome 06-01-2022 Chronic Other non-traumatic joint disorders (1 source) Pain of left wrist; Translations: [Pain in left wrist] Episodic Other nutritional; endocrine; and metabolic disorders (2 sources) Obese class I; Translations: [Body mass index (BMI) 31.0-31.9, adult] Onset: 06-01-2022 Chronic Other nutritional; endocrine; and metabolic disorders (4 sources) Obesity; Translations: [Obesity, unspecified] Onset: 06-01-2022 Chronic Other nutritional; endocrine; and metabolic disorders (2 sources) Body mass index 30+ - obesity 06-01-2022 Chronic Residual codes; unclassified (1 source) Patient encounter status; Translations: [Other specified health status] Onset: 06-01-2022 Episodic Residual codes; unclassified (1 source) 14 weeks gestation of ; Translations: [14 weeks gestation of ] Onset: 05-05-2023 Episodic Unclassified (2 sources) Non-smoker 06-01-2022 Past or Other Problems Problem Classification Problem Date Documented Da te Episodic/Chronic Other injuries and conditions due to external causes (1 source) Unspecified injury of right ankle, initial encounter; Translations: [Unspecified injury of right ankle, initial encounter] Onset: 01-10-2023 Episodic Other non-traumatic joint disorders (3 sources) Pain in left wrist; Translations: [Pain in left wrist] Onset: 06-19-2022 Episodic Unclassified (4 sources) Onset: 10-21-2012 Resolved: 11-22-2017 12-03-2017 Viral infection (2 sources) Viral disease; Translations: [Viral infection, unspecified] Onset: 12-04-2022 Episodic Results Test Name Value Interpretation Reference Range Facility CBC with Diffon 05-05-2023 Abs. Basophil 0.00 k/uL Normal 0.0-0.2 [facility] Comment on above: Performed By: #### C DP, CP #### [facility] [address] [place] [address] College Admissions Counselor: Armen Madrigal MD Abs.Neutrophil (Seg) 5.30 k/uL Normal 2.5-7.0 [facility] Comment on above: Performed By: #### C DP, CP #### [facility] [address] [place] [address] College Admissions Counselor: Amren Madrigal MD Auto Diff Performed YES Normal [facility] Comment on above: Performed By: #### C DP, CP #### [facility] [address] [place] [address] College Admissions Counselor: Armen Madrigal MD Basophils/100 WBC (Bld) 1 % Normal 0-2 [facility] Comment on above: Performed By: #### C DP, CP #### [facility] [address] [place], [place] [id number] College Admissions Counselor: Armen Madrigal MD Eosinophils (Bld) [#/Vol] 0.00 10*3/uL Normal 0.0-0.4 [facility] Comment on above: Performed By: #### C DP, CP #### [facility] [address] [place], [place] [id number] College Admissions Counselor: Armen Madrigal MD Eosinophils/100 WBC (Bld) 1 % Normal 0-5 [facility] Comment on above: Performed By: #### C DP, CP #### [facility] [address] [place] [id number] College Admissions Counselor: Armen Madrigal MD Erythrocyte distribution width (RBC) [Ratio] 13.8 % Normal 12.1-15.2 [facility] Comment on above: Performed By: #### C DP, CP #### [facility] [address] [place] [address] College Admissions Counselor: Amren Madrigal MD Hematocrit (Bld) [Volume fraction] 34.4 % Low 36-46 [facility] Comment on above: Performed By: #### C DP, CP #### [facility] [address] [place], [place] [id number] College Admissions Counselor: Armen Madrigal MD Hemoglobin (Bld) [Mass/Vol] 11.9 g/dL Low 12.0-16.0 [facility] Comment on above: Performed By: #### C DP, CP #### [facility] [address] [place], [place] [id number] College Admissions Counselor: Armen Madrigal MD Lymphocytes (Bld) [#/Vol] 1.90 10*3/uL Normal 1.0-4.8 [facility] Comment on above: Performed By: #### C DP, CP #### [facility] [address] [place] [address] College Admissions Counselor: Armen Madrigal MD Lymphocytes/100 WBC (Bld) 25 % Normal 15-40 [facility] Comment on above: Performed By: #### C DP, CP #### [facility] [address] [place] [address] College Admissions Counselor: Armen Madrigal MD MCH (RBC) [Entitic mass] 29.3 pg Normal 26-34 [facility] Comment on above: Performed By: #### C DP, CP #### [facility] [address] [place] [id number] College Admissions Counselor: Armen Madrigal MD MCHC (RBC) [Mass/Vol] 34.6 g/dL Normal 31-37 [facility] Comment on above: Performed By: #### C DP, CP #### [facility] [address] [place] [address] College Admissions Counselor: Armen Madrigal MD MCV (RBC) [Entitic vol] 84.8 fL Normal 80-100 [facility] Comment on above: Performed By: #### C DP, CP #### [facility] [address] [place] [id number] College Admissions Counselor: Armen Madrigal MD Monocytes (Bld) [#/Vol] 0.50 10*3/uL Normal 0.0-1.0 [facility] Comment on above: Performed By: #### C DP, CP #### [facility] [address] [place] [address] College Admissions Counselor: Armen Madrigal MD Monocytes/100 WBC (Bld) 6 % Normal 4-8 [facility] Comment on above: Performed By: #### C DP, CP #### [facility] [address] [place], [place] [id number] College Admissions Counselor: Armen Madrigal MD Neutrophil (Seg) 67 % Normal 47-75 [facility] Comment on above: Performed By: #### C DP, CP #### [facility] [address] [place], [place] [id number] College Admissions Counselor: Armen Madrigal MD Platelets (Bld) [#/Vol] 191 10*3/uL Normal 140-450 [facility] Comment on above: Performed By: #### C DP, CP #### [facility] [address] [place], [place] [id number] College Admissions Counselor: Armen Madrigal MD RBC (Bld) [#/Vol] 4.06 10*6/uL Normal 4.0-5.2 [facility] Comment on above: Performed By: #### C DP, CP #### [facility] [address] [place], [place] [phone] College Admissions Counselor: Armen Madrigal MD WBC (Bld) [#/Vol] 7.7 10*3/uL Normal 3.5-11.0 [facility] Comment on above: Performed By: #### C DP, CP #### [facility] [address] [place] [address] College Admissions Counselor: Armen Madrigal MD Comp Metabolic Profon 2022 Albumin [Mass/Vol] 3.4 g/dL Low 3.5-5.2 [facility] Comment on above: Performed By: #### C DP, CP #### [facility] [address] [place] [address] College Admissions Counselor: Armen Madrigal MD Alkaline Phos 44 U/L Normal 35-104 [facility] Comment on above: Performed By: #### C DP, CP #### [facility] [address] [place] [address] College Admissions Counselor: Armen Madrigal MD ALT [Catalytic activity/Vol] 5 U/L Normal 5-33 [facility] Comment on above: Performed By: #### C DP, CP #### [facility] [address] [place], [place] [phone] College Admissions Counselor: Armen Madrigal MD Anion gap [Moles/Vol] 11 mmol/L Normal 9-17 [facility] Comment on above: Performed By: #### C DP, CP #### [facility] [address] [place], [place] [id number] College Admissions Counselor: Armen Madrigal MD AST [Catalytic activity/Vol] 9 U/L Normal <32 [facility] Comment on above: Performed By: #### C DP, CP #### [facility] [address] [place], [place] [phone] College Admissions Counselor: Armen Madrigal MD Bilirubin [Mass/Vol] 0.2 mg/dL Low 0.3-1.2 [facility] Comment on above: Performed By: #### C DP, CP #### [facility] [address] [place], [place] [phone] College Admissions Counselor: Armen Madrigal MD BUN/CRE Ratio 22 High 9-20 [facility] Comment on above: Performed By: #### C DP, CP #### [facility] [address] [place], [place] [id number] College Admissions Counselor: Armen Madrigal MD Calcium [Mass/Vol] 8.8 mg/dL Normal 8.6-10.4 [facility] Comment on above: Performed By: #### C DP, CP #### [facility] [address] [place], [place] [id number] College Admissions Counselor: Armen Madrigal MD Chloride [Moles/Vol] 104 mmol/L Normal 98-107 [facility] Comment on above: Performed By: #### C DP, CP #### [facility] [address] [place], [place] [id number] College Admissions Counselor: Armen Madrigal MD CO2 [Moles/Vol] 19 mmol/L Low 20-31 [facility] Comment on above: Performed By: #### C DP, CP #### [facility] [address] [place], [place] [phone] College Admissions Counselor: Armen Madrigal MD Creatinine [Mass/Vol] 0.55 mg/dL Normal 0.50-0.90 [facility] Comment on above: Performed By: #### C DP, CP #### [facility] [address] [place] [address] College Admissions Counselor: Armen Madrigal MD GFR/1.73 sq M.predicted among non-blacks MDRD (S/P/Bld) [Vol rate/Area] mL/min/{1.73_m2} Normal >60 [facility] Comment on above: Result Comment: These results are not intended for use in patients <18 years of age. eGFR results are calculated without a race factor using the 2020 CKD-EPI equation. Careful clinical correlation is recommended, particularly when comparing to results calculated using previous equations. The CKD-EPI equation is less accurate in patients with extremes of muscle mass, extra-renal metabolism of creatine, excessive creatine ingestion, or following therapy that affects renal tubular secretion. Performed By: #### C DP, CP #### [facility] [address] [place] [address] College Admissions Counselor: Armen Madrigal MD Glucose [Mass/Vol] 86 mg/dL Normal 70-99 [facility] Comment on above: Performed By: #### C DP, CP #### [facility] [address] [place] [address] College Admissions Counselor: Armen Madriagl MD Potassium [Moles/Vol] 3.8 mmol/L Normal 3.7-5.3 [facility] Comment on above: Performed By: #### C DP, CP #### [facility] [address] [place], [place] [id number] College Admissions Counselor: Armen Madrigal MD Protein [Mass/Vol] 6.0 g/dL Low 6.4-8.3 [facility] Comment on above: Performed By: #### C DP, CP #### [facility] [address] [place], [place] [phone] College Admissions Counselor: Armen Madrigal MD Sodium [Moles/Vol] 134 mmol/L Low 135-144 [facility] Comment on above: Performed By: #### C DP, CP #### [facility] [address] [place], [place] [id number] College Admissions Counselor: Armen Madrigal MD Urea nitrogen [Mass/Vol] 12 mg/dL Normal 6-20 [facility] Comment on above: Performed By: #### C DP, CP #### [facility] [address] [place], [place] [phone] College Admissions Counselor: Armen Madrigal MD Urinalysis, Routineon 2022 Bilirubin, SemiQt,Ur Negative Normal NEG [facility] Comment on above: Performed By: #### U A #### [facility] [address] [place] [address] College Admissions Counselor: Armen Madrigal MD Blood, Urine Negative Normal NEG [facility] Comment on above: Performed By: #### U A #### [facility] [address] [place], [place] [id number] College Admissions Counselor: Armen Madrigal MD Clarity (U) Clear Normal CLEAR [facility] Comment on above: Performed By: #### U A #### [facility] [address] [place], [place] [phone] College Admissions Counselor: Armen Madrigal MD Color (U) Yellow Normal YEL [facility] Comment on above: Performed By: #### U A #### [facility] [address] [place], [place] [id number] College Admissions Counselor: Armen Madrigal MD Comment Normal [facility] Comment on above: Performed By: #### U A #### [facility] [address] [place], [place] [phone] College Admissions Counselor: Armen Madrigal MD Glucose Ql (U) Negative Normal NEG [facility] Comment on above: Performed By: #### U A #### [facility] [address] [place], [place] [phone] College Admissions Counselor: Armen Madrigal MD Ketones Ql (U) TRACE Abnormal NEG [facility] Comment on above: Performed By: #### U A #### [facility] [address] [place], [place] [phone] College Admissions Counselor: Armen Madrigal MD Leukocyte esterase Test strip Ql (U) Negative Normal NEG [facility] Comment on above: Performed By: #### U A #### [facility] [address] [place] [address] College Admissions Counselor: Armen Madrigal MD Nitrite,Ur Negative Normal NEG [facility] Comment on above: Performed By: #### U A #### [facility] [address] [place], [place] [phone] College Admissions Counselor: Armen Madrigal MD PH,Ur 6.0 Normal 5.0-8.0 [facility] Comment on above: Performed By: #### U A #### [facility] [address] [place], [place] [id number] College Admissions Counselor: Armen Madrigal MD Protein Ql (U) Negative Normal NEG [facility] Comment on above: Performed By: #### U A #### [facility] [address] [place], [place] [id number] College Admissions Counselor: Armen Madrigal MD Spec. [place],Ur 1.025 Normal 1.005-1.030 [facility] Comment on above: Performed By: #### U A #### [facility] [address] [place], [place] [phone] College Admissions Counselor: Armen Madrigal MD Urobilinogen,Ur Normal Normal NORM [facility] Comment on above: Performed By: #### U A #### [facility] [address] [place] [address] College Admissions Counselor: Armen Madrigal MD RAD - MISCon 02-01-2023 RAD - MISC [id number] #[id number]:127 Normal [facility] XR ANKLE RIGHT (MIN 3 VIEWS) on 01-29-2023 XR ANKLE RIGHT (MIN 3 VIEWS) EXAM: XR ANKLE RIGHT (MIN 3 VIEWS). HISTORY: Other closed fracture of proximal end of right fibula with routine healing, subsequent encounter. COMPARISON: 01/10/2023. IMPRESSION: FINDINGS/IMPRESSION: 1. Compression fracture tip of the fibula no longer separately seen. 2. Anatomic alignment throughout. 3. Soft tissue swelling has resolved. Interpreted by: Mauro Anton Jr., MD Signed by: Mauro Anton Jr., MD 01/29/23 Final result Normal [facility] FINDINGS/IMPRESSION: 1. Compression fracture tip of the fibula no longer separately seen. 2. Anatomic alignment throughout. 3. Soft tissue swelling has resolved. [facility] EXAM: XR ANKLE RIGHT (MIN 3 VIEWS). HISTORY: Other closed fracture of proximal end of right fibula with routine healing, subsequent encounter. COMPARISON: 01/10/2023. [facility] Mauro Anton Jr., MD - 01/29/2023 EXAM: XR ANKLE RIGHT (MIN 3 VIEWS). HISTORY: Other closed fracture of proximal end of right fibula with routine healing, subsequent encounter. COMPARISON: 01/10/2023. IMPRESSION: FINDINGS/IMPRESSION: 1. Compression fracture tip of the fibula no longer separately seen. 2. Anatomic alignment throughout. 3. Soft tissue swelling has resolved. [employer]LL[employer] Processing [facility] Work Phone: Radiology Study observation (narrative) [email or web address] Phone: XR ANKLE RIGHT (MIN 3 VIEWS) Ordered By: Mauro Anton on 01-29-2023 [email or web address] Phone: RAD - MISCon 01-11-2023 RAD - MISC [id number] #[id number]:[id number] Normal [facility] XR ANKLE RIGHT (MIN 3 VIEWS) on 01-10-2023 XR ANKLE RIGHT (MIN 3 VIEWS) CLINICAL HISTORY: Right ankle pain and swelling since an injury yesterday. RIGHT ANKLE 3 VIEWS: IMPRESSION: FINDINGS/IMPRESSION: 1. Very small nondisplaced incomplete fracture is questioned in the distal tip of the right fibula, with mild surrounding soft tissue swelling. 2. No other fracture, malalignment, significant arthritis or acute bony abnormality is seen. Interpreted by: João Amezquita MD Signed by: João Amezquita MD 01/10/23 Final result Normal [facility] FINDINGS/IMPRESSION: 1. Very small nondisplaced incomplete fracture is questioned in the distal tip of the right fibula, with mild surrounding soft tissue swelling. 2. No other fracture, malalignment, significant arthritis or acute bony abnormality is seen. [facility] CLINICAL HISTORY: Right ankle pain and swelling since an injury yesterday. RIGHT ANKLE 3 VIEWS: [facility] João Amezquita MD - 01/10/2023 CLINICAL HISTORY: Right ankle pain and swelling since an injury yesterday. RIGHT ANKLE 3 VIEWS: IMPRESSION: FINDINGS/IMPRESSION: 1. Very small nondisplaced incomplete fracture is questioned in the distal tip of the right fibula, with mild surrounding soft tissue swelling. 2. No other fracture, malalignment, significant arthritis or acute bony abnormality is seen. [email or web address] Phone: Radiology Study observation (narrative) [email or web address] Phone: XR ANKLE RIGHT (MIN 3 VIEWS) Ordered By: João Amezquita on 01-10-2023 [facility] [employer] Phone: Ambulatory Visit Summaryon 0 12-08-2022 Ambulatory Visit Summary MEENA READ :1995 Visit Date:12/08/2022 Ambulatory Visit Instructions Your Diagnosis Gastroenteritis due to [place]-like virus Obesity due to excess calories BMI 31.0-31.9,adult Your Care Team Attending Physician - KEVIN BENAVIDEZ, [place] Primary Care Physician - Charli LOPEZ This Is Your Medications List dicyclomine (dicyclomine 20 mg Tab) Contact prescribing physician if questions or concerns multivitamin, ( Multivitamins with Vitamin B Complex, Vitamin C, Minerals and L-Methylfolate oral capsule) ondansetron (Zofran ODT 4 mg Tab-Dis) Procedures Performed Cholecystectomy (2014), T and A education, Tonsillectomy. Discharge Vitals Temperature (Temporal Artery) 36.8 ?C Heart Rate (Peripheral) 84 Respiratory Rate 16 Blood Pressure 114/78 Height 170 cm Height 67 in Weight 90.5 kg Weight 199.1 lb BMI 31.31 What to do next You Need to Schedule the Following Appointments Follow Up with KEVIN BENAVIDEZ, KANDY Caban When: Only if needed Where: Medications What How Much When Instructions New dicyclomine (dicyclomine 20 mg Tab) 1 Tablets By Mouth 3 times a day Duration: 10 Days 30 to 60 minutes before meals Pickup at [facility] Unchanged multivitamin, ( Multivitamins with Vitamin B Complex, Vitamin C, Minerals and L-Methylfolate oral capsule) 1 Capsules By Mouth Every day Contact prescribing physician if questions or concerns Unchanged ondansetron (Zofran ODT 4 mg Tab-Dis) 1 Tablets By Mouth 3 times a day Contact prescribing physician if questions or concerns Pharmacy Information [facility]: [address] [place], [place] [phone] Medications and Immunizations Administered Not Given influenza virus vaccine, inactivated, Postpone due to refusal SARS-CoV-2 mRNA (tozinameran 5y-11y) vac, Postpone due to refusal Allergies Percocet 5/325 (Hives, Rash) Vicodin (Hives) codeine (Hives, Rash) Problems Ongoing - Any problem that you are currently receiving treatment for. BMI 31.0-31.9,adult Gastroenteritis due to Kingman-like virus Non-smoker Obesity due to excess calories Historical - Any problem that you are no longer receiving treatment for. Acid reflux Education Materials Viral Gastroenteritis, Adult Viral gastroenteritis is also known as the stomach flu. This condition may affect your stomach, small intestine, and large intestine. It can cause sudden watery diarrhea, fever, and vomiting. This condition is caused by many different viruses. These viruses can be passed from person to person very easily (are contagious). Diarrhea and vomiting can make you feel weak and cause you to become dehydrated. You may not be able to keep fluids down. Dehydration can make you tired and thirsty, cause you to have a dry mouth, and decrease how often you urinate. It is important to replace the fluids that you lose from diarrhea and vomiting. What are the causes? Gastroenteritis is caused by many viruses, including rotavirus and norovirus. Norovirus is the most common cause in adults. You can get sick after being exposed to the viruses from other people. You can also get sick by: ? Eating food, drinking water, or touching a surface contaminated with one of these viruses. ? Sharing utensils or other personal items with an infected person. What increases the risk? You are more likely to develop this condition if you: ? Have a weak body defense system (immune system). ? Live with one or more children who are younger than 2 years old. ? Live in a usp. ? Travel on cruise ships. What are the signs or symptoms? Symptoms of this condition start suddenly 1?3 days after exposure to a virus. Symptoms may last for a few days or for as long as a week. Common symptoms include watery diarrhea and vomiting. Other symptoms include: ? Fever. ? Headache. ? Fatigue. ? Pain in the abdomen. ? Chills. ? Weakness. ? Nausea. ? Muscle aches. ? Loss of appetite. How is this diagnosed? This condition is diagnosed with a medical history and physical exam. You may also have a stool test to check for viruses or other infections. How is this treated? This condition typically goes away on its own. The focus of treatment is to prevent dehydration and restore lost fluids (rehydration). This condition may be treated with: ? An oral rehydration solution (ORS) to replace important salts and minerals (electrolytes) in your body. Take this if told by your health care provider. This is a drink that is sold at pharmacies and retail stores. ? Medicines to help with your symptoms. ? Probiotic supplements to reduce symptoms of diarrhea. ? Fluids given through an IV, if dehydration is severe. Older adults and people with other diseases or a weak immune system (more content not included)... Normal [facility] ED Note-Physicianon 12-08-19 ED Note-Physician [id number] #1.00CD:127 Normal [facility] Family Medicine Office/Clini c Noteon 12-08-2022 Family Medicine Office/Clinic Note Chief Complaint mhw er f/u 12/04/22 for n/v/d, fevers, nasal congestion, cough, myalgias. neg covid and flu A/B. pt presents today with cont c/o same sx's. History of Present Illness Patient complains of multitude of symptoms developed approximately November 27. Her son was equally ill at that time but only lasted about 2 days primarily with fevers cough mild diarrhea. Her symptoms have progressed with persistent intermittent diarrhea associated with any meal generally watery. Has had some nausea using Zofran from the emergency room 12/04 as well as loperamide with limited response. Generally having abdominal cramps but no recognized fevers or chills currently. She feels weak but is keeping fluids in adequately. Cough is nonproductive. She tested negative for influenza and COVID. 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 She has city water. Has not had any recent antibiotics or other exposures. Review of Systems PHQ Score Initial Depression Screen Score: 0 See HPI otherwise negative Physical Exam Vitals & Measurements T: 36.8 ?C(Temporal Artery) HR: 84(Peripheral) RR: 16 BP: 114/78 SpO2: 100% HT: 67 in HT: 170 cm WT: 90.5 kg WT: 199.1 lb BMI: 31.31 Constitutional: Adequately hydrated HEENT: Slight dryness to the external nostrils, clear rhinorrhea. Oropharynx pink and moist no lesions. Neck without adenopathy conjunctive a clear TMs are clear Cardiothoracic: Regular rate and rhythm no murmurs Respiratory: CTA bilaterally does have a dry cough Abdomen/GI: Overweight nontender, hyperactive bowel sounds. Rectal exam deferred. Genitourinary: Deferred Musculoskeletal: Well-developed Neurologic: No tremors Integument: Skin pale warm dry adequate turgor Psychiatric: Cooperative insightful Assessment/Plan 1. Gastroenteritis due to Kingman-like virus (A08.8: Other specified intestinal infections) Viral nature of GI illness reviewed. Must maintain fluid hydration. Slow advancement of clear liquid diet discussed. Needs for which to call regarding dehydration potential reviewed. Antiemetic?s if indicated w/ sedation warning. Strict hygiene to prevent further transmission. Trial of Bentyl for the cramping offered. If persistent symptoms would give consideration to stool cultures. Strict hygiene because of working with food. 2. Obesity due to excess calories (E66.09: Other obesity due to excess calories) The standard range for ages 18 and older is >=18.5 and < 25 kg/m2. Your BMI today was above this range, this falls in the overweight to obese category and there are medical benefits to weight loss. We can offer counselling, referral, and/or medical support in addressing this problem. Your BMI and weight management will be followed at subsequent visits. 3. BMI 31.0-31.9,adult (Z68.31: Body mass index [BMI] 31.0-31.9, adult) See #2 Orders: dicyclomine, 20 mg = 1 tab(s), Oral, TID, 30 to 60 minutes before meals, X 10 day(s), # 30 tab(s), Refills(s) 0, Pharmacy: [facility], 170, cm, 12/08/22 12:00:00 EST, Height/Length Dosing, 90.5, kg, 12/08/22 12:00:00 EST, Weight Dosing Follow-up With When Contact Information Keyon BROWN MD, FAM Only if needed Additional Instructions: Patient Education Viral Gastroenteritis, Adult Problem List/Past Medical History Ongoing BMI 31.0-31.9,adult Gastroenteritis due to Kingman-like virus Non-smoker Obesity due to excess calories Historical Acid reflux Procedure/Surgical History Cholecystectomy (2014), T and A education, Tonsillectomy. 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 Never Smokeless Tobacco Use:., 12/08/2022 Family History Family history is negative Immunizations Vaccine Date Status Comments influenza virus vaccine, inactivated - Not Given Postpone due to refusal SARS-CoV-2 mRNA (tocassandranameran 5y-11y) vac - Not Given Postpone due to refusal Hep A, unspecified formulation 02/16/2008 Recorded diphtheria/pertussis , acel/tetanus adult 08/02/2007 Recorded meningococcal conjugate vaccine 08/02/2007 Recorded Hep A, unspecified formulation 08/02/2007 Recorded measles/mumps/rubell a virus vaccine 08/19/2000 Recorded DTaP, unspecified formulation 08/19/2000 Recorded varicella virus vaccine 10/10/1997 Recorded m (more content not included)... Normal [facility] Comment on above: Result Comment: Elec tronically Signed By: KEVIN BENAVIDEZ, Keyon\.br\Date and Time Signed: 12/08/22 12:20 EST Patient Educationon 12-08-19 23 Patient Education Gastroenterology Viral Gastroenteritis, Adult Viral gastroenteritis is also known as the stomach flu. This condition may affect your stomach, small intestine, and large intestine. It can cause sudden watery diarrhea, fever, and vomiting. This condition is caused by many different viruses. These viruses can be passed from person to person very easily (are contagious). Diarrhea and vomiting can make you feel weak and cause you to become dehydrated. You may not be able to keep fluids down. Dehydration can make you tired and thirsty, cause you to have a dry mouth, and decrease how often you urinate. It is important to replace the fluids that you lose from diarrhea and vomiting. What are the causes? Gastroenteritis is caused by many viruses, including rotavirus and norovirus. Norovirus is the most common cause in adults. You can get sick after being exposed to the viruses from other people. You can also get sick by: ? Eating food, drinking water, or touching a surface contaminated with one of these viruses. ? Sharing utensils or other personal items with an infected person. What increases the risk? You are more likely to develop this condition if you: ? Have a weak body defense system (immune system). ? Live with one or more children who are younger than 2 years old. ? Live in a usp. ? Travel on cruise ships. What are the signs or symptoms? Symptoms of this condition start suddenly 1?3 days after exposure to a virus. Symptoms may last for a few days or for as long as a week. Common symptoms include watery diarrhea and vomiting. Other symptoms include: ? Fever. ? Headache. ? Fatigue. ? Pain in the abdomen. ? Chills. ? Weakness. ? Nausea. ? Muscle aches. ? Loss of appetite. How is this diagnosed? This condition is diagnosed with a medical history and physical exam. You may also have a stool test to check for viruses or other infections. How is this treated? This condition typically goes away on its own. The focus of treatment is to prevent dehydration and restore lost fluids (rehydration). This condition may be treated with: ? An oral rehydration solution (ORS) to replace important salts and minerals (electrolytes) in your body. Take this if told by your health care provider. This is a drink that is sold at pharmacies and retail stores. ? Medicines to help with your symptoms. ? Probiotic supplements to reduce symptoms of diarrhea. ? Fluids given through an IV, if dehydration is severe. Older adults and people with other diseases or a weak immune system are at higher risk for dehydration. Follow these instructions at home: Eating and drinking ? Take an ORS as told by your health care provider. ? Drink clear fluids in small amounts as you are able. Clear fluids include: ? Water. ? Ice chips. ? Diluted fruit juice. ? Low-calorie sports drinks. ? Drink enough fluid to keep your urine pale yellow. ? Eat small amounts of healthy foods every 3?4 hours as you are able. This may include whole grains, fruits, vegetables, lean meats, and yogurt. ? Avoid fluids that contain a lot of sugar or caffeine, such as energy drinks, sports drinks, and soda. ? Avoid spicy or fatty foods. ? Avoid alcohol. General instructions ? Wash your hands often, especially after having diarrhea or vomiting. If soap and water are not available, use hand farm equipment operator. ? Make sure that all people in your household wash their hands well and often. ? Take lzwe-jlp-weguzfu and prescription medicines only as told by your health care provider. ? Rest at home while you recover. ? Watch your condition for any changes. ? Take a warm bath to relieve any burning or pain from frequent diarrhea episodes. ? Keep all follow-up visits as told by your health care provider. This is important. Contact a health care provider if you: ? Cannot keep fluids down. ? Have symptoms that get worse. ? Have new symptoms. ? Feel light-headed or dizzy. ? Have muscle cramps. Get help right away if you: ? Have chest pain. ? Feel extremely weak or you faint. ? See blood in your vomit. ? Have vomit that looks like coffee grounds. ? Have bloody or black stools or stools that look like tar. ? Have a severe headache, a stiff neck, or both. ? Have a rash. ? Have severe pain, cramping, or bloating in your abdomen. ? Have trouble breathing or you are breathing very quickly. ? Have a fast heartbeat. ? Have skin that feels cold and clammy. ? Feel confused. ? Have pain when you urinate. ? Have signs of dehydration, such as: ? Dark urine, very little urine, or no urine. ? Cracked lips. ? Dry mouth. ? Sunken eyes. ? Sleepiness. ? Weakness. Summary ? Viral gastroenteritis is also known as the stomach flu. It can cause sudden watery diarrhea, fever, and vomiting. ? This condition can be passed from person to person (more content not included)... Normal [facility] COVID-19, Rapidon 12-04-2022 SARS-CoV-2 (COVID-19) RNA WADE+probe Ql (Unsp spec) Not detected Not Detected [facility] Comment on above: Rapid NAAT: The specimen is NEGATIVE for SARS-CoV-2, the novel coronavirus associated with COVID-19. The ID NOW COVID-19 assay is designed to detect the virus that causes COVID-19 in patients with signs and symptoms of infection who are suspected of COVID-19. An individual without symptoms of COVID-19 and who is not shedding SARS-CoV-2 virus would expect to have a negative (not detected) result in this assay. Negative results should be treated as presumptive and, if inconsistent with clinical signs and symptoms or necessary for patient management, should be tested with an alternative molecular assay. Negative results do not preclude SARS-CoV-2 infection and should not be used as the sole basis for patient management decisions. Fact sheet for Healthcare Providers: https://www.fda.gov/media/512295/download Fact sheet for Patients: https://www.fda.gov/media/226230/download Methodology: Isothermal Nucleic Acid Amplification Specimen Description .[facility]NGEAL [facility] Flu A/B Ag Detectionon 12-04 Flu A Ag Detection Negative Normal NEG [facility] Comment on above: Result Comment: for Influenza A Antigen Performed By: #### F LUABA #### [facility] [address] [place] [address] College Admissions Counselor: Armen Madrigal MD Flu B Ag Detection Negative Normal NEG [facility] Comment on above: Result Comment: for Influenza B Antigen. Performed By: #### F LUABA #### [facility] [address] [place] [address] College Admissions Counselor: Armen Madrigal MD Rapid influenza A/B antigens on 12-04-2022 Flu A Antigen Negative NEGATIVE [facility] Comment on above: for Influenza A Anti gen Flu B Antigen Negative NEGATIVE [facility] Comment on above: for Influenza B Anti gen. [facility] [id number] 12-04-2022 SARS-CoV-2 (COVID-19) RNA WADE+probe Ql (Unsp spec) Not detected Normal NOTDET [facility] Comment on above: Result Comment: Rapid NAAT: The specimen is NEGATIVE for SARS-CoV-2, the novel coronavirus associated with COVID-19. The ID NOW COVID-19 assay is designed to detect the virus that causes COVID-19 in patients with signs and symptoms of infection who are suspected of COVID-19. An individual without symptoms of COVID-19 and who is not shedding SARS-CoV-2 virus would expect to have a negative (not detected) result in this assay. Negative results should be treated as presumptive and, if inconsistent with clinical signs and symptoms or necessary for patient management, should be tested with an alternative molecular assay. Negative results do not preclude SARS-CoV-2 infection and should not be used as the sole basis for patient management decisions. Fact sheet for Healthcare Providers: https://www.fda.gov/media/516687/download Fact sheet for Patients: https://www.fda.gov/media/145666/download Methodology: Isothermal Nucleic Acid Amplification Performed By: #### C OVRB #### [facility] [address] [place] [address] College Admissions Counselor: MD Massimo Stevens Urineon 09-06-2022 Bacteria identified Cx Nom (U) Microbiology PROCEDURE: Urine Culture [R1] SOURCE: U CleanCatch BODY SITE: COLLECTED DATE/TIME: 09/03/2022 14:49 EDT RECEIVED DATE/TIME: 09/04/2022 07:34 EDT START DATE/TIME: 09/04/2022 07:34 EDT FREE TEXT SOURCE: Derrick BELLAMY, Neil Meza PA-C, Neil FINAL REPORTS Final Report [] Verified Date/Time: 09/06/2022 11:12 EDT <10,000 cfu/ml Mixed skin contaminants Performing Locations R1: This test was performed at: [facility], [address] [place] [address], [address] , , [facility] Comment on above: Performed By: #### 2 [id number] ####[facility] [address] [place] [address] Coding Summary.on 09-04-2022 Coding Summary. CD:[id number] Gh0bWw+PGhlYWQ+PE1FV FDuK75ygZGtzR8LV7fLF D7FGIHVIABEOG2LKX5nt WW9ZSxnG4TbofUl HpwpgVOgAY86GIv8LHZ6 bBpuMLklzH8xpORrT1x3 NvUeOW18pQ14VJkuXHQv ZlR7AyUkrdpwmYHx I6noXfBpbBIaFkq+PHRh YmxlIHdpZHRoPScxMDAl IoSyqOgtCU2uTz7iUUHi LWNvbGxhcHNlOiBj p5fhGRAjNVfvYH6mrHcv E6AlfGT9ZCNud1o0Tr78 dHI+THVyCWG1cNgbJQqb b757VlXun7jrWGK8 tMBpPXskQSW4T75qy4Z4 MQRnIBInISK7dKA3xX5f wTmiwykdJ0QmmOQuWkE9 KAS8pKFmmM0hiOrg vmrbsQ7kTgh+Q14RGF0G QCCCHM7XSgu9M3AyGyyy dHI+OA93YWKgZN09rMGx yBJwy5hpzKz4RbMy WPVtBWJ0gYcjLLeen0Qp YJDsK35hfTCpn1M3GFQn fCbsxTMvJjFwvES6gB8j HDwgctfaa5mlhvzr Erziw7rfej85mA42Z97m PDyuEBSlPNW6FPKbUYVq qTbvkp8krX7sEh9+IDxj g8ppb7cjaYw7MjWf AZAlznPfuGfrYNL2b1Rf Ny46N9MytFcni7NcKeh0 ur03nJHkw1W1zJR6DGey ORJoeU5hUJtlDeZ7 REVzJzPsbP17xWCtXRrr Jv0whTaqqQoaBJ5sXEPs scxfEBEvwD4zKAXnxVNo lQsgYW8rNYIomjja p258IyJaMZZ5IFGdmGPw S1GtjM8aVqCtBDFbYSOk X3VswSHpWAxuA342CZjd AyA7HRDakvIzB2Av USEsgNybUgU9j1Y1Ha9V l8BpeojoGPA0AYynEQHr TlO9CmPlTaP1X4QzWoy7 FYQxuUfmHI3qW2Jx FQLkbzhemvzzaJQ3NUSt FYLysN93uNKxOWcoJx7f r0G6w885ULKlZHIszF78 Af2vjAbuVCFncHOR rU2meyykx2ygeqxuMpPn CDKaWHz0CBn8ACAefOzg BeFuRZH2QjY3ZRZ1tPWt cF3uvGkupkekiZ8s Oyc+H68foY7dCYR0TMP5 mgjtCYYhlwMoSR58ND25 M6LiLwtpgJDedDH+PGRp krGkoWreLQ9hUlSd e9alg2YlQBfeW5RtJIEy RWsvPsq8UVKqWZJ2wCC1 yV3zWSHnYGmlx3R2yOV0 Q5NokfNudu2ia4am JJKnGWiuB47wvCUpb1X6 AFJhtNN1HNPbrRkoShVl kX68Fyb+BBKyxSdwm7Dk Eagln1rgf2jcbNb5 IjMwJSIgdmFsaWduPSJ0 l1XsVy14R84nKDgpQFIs PBUsHHOfIJRcaYsrcb0k cG2nZv8+PGNvbCB3 iSO9dF5aBZTwCcG1OBdm W493SnUicLIlDeaxq3tc w7juxYu4YkHuRORdcrHf lJbhAXW7i8HxDb89 T18gAIlfRTLeIYOsNFUt JHJtzWkzoq2jfA9qFt6+ FL1bm5dqlm11uG14wJS+ CLDvKOD1xBwgKQdw BJYabZ0vVVppPkM0TLTc ReNmrJ26kXStLTrxEm2w fEijrNfuNM3cDBLqsanh o003CrYzl6knBQHq nTErAIycFFX2Y42ez6U1 UPSdKEChAJM0nKL8cI4m bGlnbjogbGVmdDsgdmVy eQkoEGclTNyqT757 IHRvcDsnPlBhdGllbnQg SrYvRVu5X7MuUom0YSXl gXzfVB0omSTsZVgkLs2i rRgwnWlhPP7yAZKx bhduy206IjCvq0vpVFJg yJJiRHzdLPM4Q69yg9E4 GYCqRIEgOCO2dEJ4pO7t bGlnbjogbGVmdDsg bqLkkTdhDGodWYolB774 IHRvcDsnPkJpcnRoIERh vIE3YJ39VA12yIVfb5T7 eXM2G6EjQHFnvela sousvYR1PCZwBOUynT34 Bg6nzVllIu3yXHPnDCB9 MXTieDQqM0XviC7eOdKc PIWmBOCwG0JeyWSf XRjcK192PWmmFxL9MYHr rgAnW6LqEZJypOjvIwU7 w0P7Lh0HE8S1OX60RS73 hPOsg8G4bNR8M6Ul BZWmluuhtylmbAZ4ISCs RSHvcA95Sc9tmXbvYn5c KBThIBM0PBDkfNLtV0Wd sL2gQfTmYNWvQCTd L4AghVSkFNpuC058BHam LnB7FGIiteArY4VnZLKq rKxoKoJ7d6X2Zn6UNTe3 VA01VW11kTLrc3D0 jYM5P3AiVMSozuyrkund rRT5HOHlZOUdgH71Nl1z gCvgFi8nGQDxPEU1DHDz tTDiY4XcrM4hSkMr YBEcFNCxA4IhsTSmOLqf W133BNvdDtM1XEPxocXl O0NxIVFqaDrnEqS2k0I6 Ll0MBXMnEC32AJM6 rUQ6CE79QV33T3GdApfa dGFibGU+PHRhYmxlIHdp ZHRoPScxMDAlJyBzdHls PI5uGo7bIDDgFTAr mXpbfLRrTyGkl5taXANe VUlbRN2yqOkqC9QjhIX8 KUQth2y3Or88S16wN4Mn dXA+SSEuwIK5vXS7 oC4jKsAwIbN1DAhfQ960 UmLuwCCmLyvbh0rti3nh qTx9SpG1ZBCsdrWrpAhm NVV0g7AiUr94X45v IHdpZHRoPSIxNSUiIHZh bOknvj9cpA8cOe6+PGNv lYO6uVD5uJ6rWxCnIrD3 BBwwX555YiEbmXSh Fuyii2ltj6xzeOa4SsTh TXArsvKbjGfpWZM0r3Dr Pb63I2LzkXweh1HkKdh6 hz42mVUxs8E3wHU5 Z2IiXHTwwmipiDFsbWbw WR0wMHQrxamrDRQgjB2g ZYNyZ2l6UzZgAbJ8CSyc W9DeexU2MDYnoWKd MHnaBMQ7R57hl1A2YGQm AOUiNUM6sOE5jD3kbExu bjogbGVmdDsgdmVydGlj KPngAUaxS676QYNi wZadHVVdmM0qSIDnvSNo oAjeSV3vLUJvhpeiLhSF Ql2UHFXqICrLPRtUGW0n RTwvdGQ+PHRkIHN0 xFebXYmiJJXusF4vTZFb P5r8ZbUeFtY5LUrhA1Wa GASkiamcWx28cN0oHhVf OzW7JGpjP1MpzxC9 ZCIvcUIwMUcaTJH9B39d d3A4NZQlRWIuLQE5hTE9 kD0irEsknifnaIRbxFth dmVydGljYWwtYWxp K908ADBusOdmIcLwAkR5 PvJ6PKA8L7YyRhq5ETLv eZvbNW3jnUFiAVnnEw2j lFgmrEatYR8bFFDa ggciMMOpvS5eMQPkcCIr dAvzMH5kGDVjdyxkz789 VqDlOTQ5UGLfkKVbM5Gy xW6cJaOuOLBtRIQc W1AekMIoPPgcM621BRqw VcR1KZGjdtFqF6VqFIEd qBnlUbR2u2K5Ib8tOsQO ZWFyczwvdGQ+PHRk SRA8gCjbRFlyOMLzcY3g SLTiO0z5ZpZoJeH7MGkl X4VpRPEcntwjLz47sQ9f BzUoXcU6OPzrU3Pm afA1LTPnsCUrONooJTD5 E33vo6H5HATqOAFpYYO7 hLI6rI7xsFzmvgzzgVIz dDsgdmVydGljYWwt FWleT144OKBwkPfkAsSc bWFsZTwvdGQ+PHRkIHN0 iYocWEqvOEHqoP2hSCLv O3u9GuCgOlI9VRly L0MjUIVdiavlFf61jI4q BuAsKqV4AUauG1QiwaX4 CUUcqTNjIRcsCLV4H43p x6P0SPKgIPQbMLK8 pNH6wF8ybWfdhiivoWDg dDsgdmVydGljYWwtYWxp C806KQWpuOhpUvYgILNq GD1pbYbyzKO+PC90 ms32Q1ThAjarWpi9IWLj ITB9ySA1nG8mBUFwHVie u7V2cWJ2B9XpqsQkej0z s9toMXLhIFzqR14t xRVxc7X5CMIvbBL7OSNs gAjtEbHzuC23Wfn+PGNv mDfoc8TfShmad4koc0xe tTe4NlIiLRXoerKv bEkwDEU5a3TvLu10G82d IHdpZHRoPSIzMCUiIHZh hHcxav3fdV7hCr0+PGNv aKJ4kTC2mO1dNuTd SaR6AEqqM667JgGwlDAw Fiwfe3qxa7ascKa7ZpEb FUTtttHelDxcIRQ8z5Ku Eq77T3TttAooe2Ya Ird3tv83iYSim8D2jOB2 R5JwKPFfhtdrqOGooMrk JU3uPJUzryhjJMBsrW5b IBLhA4e6TyVaVmG2 EPwzV7UeavB4GPBgaLKp XBBeyDMOfS0iypcpc4qe jlrxFlBfLLTnYNi1JTm4 LWFsaWduOiBsZWZ0 ZkK9ZUE6eEFdoW6mwDng lfvelA3dDfr+TJa3a1gu qTByUW4txCJ5YY53LK13 uGTns0Q2dFG6X0Nd SPCvtuvhhmtpoGA1DORr DVLvgQ53Di9geGpyNc9t NTEmZKZ8BSMhoXBhL4Eo kC9kYiXyDXOiIOBu J5TbbEOuEJbeE863EBch FdI9KQTtmtApC4TaSWWe fIgxJeL3l7Y8Ti7ARB92 ED17PG29qYTgm8J5 jPB0O8HeZWPllrltkttj oOE5CJCxAROeyQ23Iv4k jOgvRe2zOWJpAGT9BIXn aGWrR8VpiH3mPkEb UICfOCSvV7OphQSnATkj L493MGoyNzA0YPQdlvVq O7KvQQRqnCahBgM5u8N1 Cv3LEu21YZ35DO93 fYZhp2C6iFD3K1FmUFTa alpnbvmlhBX5UMRtIENo mW69Ah1bjOqcSv7vNDIc YMY2HOSfwYSbS4Kl rG2mHmVxFVWxYWTaW7Us fTRoZRouK396WLkeUuA6 KEGdsgXsF6OmUDWarIaz ZmQ3n6I8Pp7XAIej wwc1S5ToEtznmHS+PC90 LLBfNB04tXQyuXAhq2zs gXv1TaAyEOKsZPS1rGpp BWori8FmNWPiT84q bGFw (more content not included)... Normal [facility] Consent for Treatmenton 08-22 Consent for Treatment [id number] #1.00CD:127 Normal [facility] Discharge Instructionson Discharge Instructions [id number] #1.00CD:127 Normal [facility] ED Clinical Summaryon 2021 ED Clinical Summary [place] [address] ED Clinical Summary Person Information Name: MEENA READ Gayathri/[facility] Age: 26 Years : 1995 Sex: Female Language: Swiss PCP: Charli LOPEZ Marital Status: Single Visit Id: Visit Reason: Test; Nausea; POSS PREG, NAUSEA Speciality: Acuity: 4 Enc Type: Emergency Med Service: Emergency Arrival: 09/03/2022 14:27:10 Discharge: 09/03/2022 15:51:46 LOS: 000 01:24 Checkin: 09/03/2022 14:27:10 Checkout: 09/03/2022 15:51:46 Dispo Type: Home (Routine DC) EVENTS: Event Name Event Status Request Date/Time Start Date/Time Complete Date/Time Arrive Complete 09/03/2022 14:27:10 09/03/2022 14:27:10 09/03/2022 14:27:10 Document Home Meds Request 09/03/2022 14:27:10 Triage Complete 09/03/2022 14:27:10 09/03/2022 14:31:57 09/03/2022 14:31:57 Bed Assign Complete 09/03/2022 14:28:22 09/03/2022 14:28:22 09/03/2022 14:28:22 Dr Exam Complete 09/03/2022 14:28:22 09/03/2022 14:30:24 09/03/2022 14:30:24 RN Exam Complete 09/03/2022 14:28:22 09/03/2022 14:48:03 09/03/2022 14:48:03 Registration Complete 09/03/2022 14:30:24 09/03/2022 14:53:25 09/03/2022 14:53:25 Dr Exam Complete 09/03/2022 14:30:30 09/03/2022 14:30:30 09/03/2022 14:30:30 Pending Labs Complete 09/03/2022 14:33:13 09/03/2022 15:17:11 Lab Complete 09/03/2022 14:33:13 09/03/2022 15:17:11 Urine Collect Complete 09/03/2022 14:33:13 09/03/2022 15:17:11 Reg Complete Request 09/03/2022 14:53:25 Reg Bed Request Complete 09/03/2022 14:53:25 09/03/2022 14:53:25 09/03/2022 14:53:25 Pending Labs Collected 09/03/2022 15:17:11 09/03/2022 15:17:11 Lab Collected 09/03/2022 15:17:11 09/03/2022 15:17:11 Discharge Complete 09/03/2022 15:45:16 09/03/2022 15:51:51 09/03/2022 15:51:51 Transfer Complete 09/03/2022 15:51:51 09/03/2022 15:51:51 09/03/2022 15:51:51 ADDRESS: [address] [place] [id number] PHYS DOC NOTES: MEDICAL INFORMATION: Prescriptions Given: New Medications [facility], [address] [place], [place] [id number], [phone] ondansetron (Zofran ODT 4 mg Tab-Dis) 1 Tablets By Mouth 3 times a day. Refills: 0. Medications to Continue with No Changes Other Medications multivitamin, ( Multivitamins with Vitamin B Complex, Vitamin C, Minerals and L-Methylfolate oral capsule) 1 Capsules By Mouth every day. Refills: 0. PATIENT EDUCATION INFORMATION: Instructions: Nausea and Vomiting, Adult Follow up: With: Address: When: [place] [address] [facility] (1) In 3 days 09/06/2022 DIAGNOSIS: Nausea & vomiting Normal [facility] ED Note-Physicianon 09-03-20 ED Note-Physician Basic Information Time Seen: Neil Meza PA-C 09/03/2022 14:30 Chief Complaint patient c/o nausea x 2 wks. states that she is 17 days late and had a faintly + preg test History of Present Illness 26-year-old female comes to the ED with concern for . She states she currently 17 days late for her menstrual period. She been having associated nausea and vomiting. No fever, chills, abdominal pain, diarrhea constipation. No vaginal discharge or bleeding. She has had 1 previous , but did not have any of these same symptoms. No prior treatments. She took a home test that was faintly positive. Review of Systems A 10 point review of systems is negative except as noted above. Medical and Surgical History: Reviewed and noted Social history: Lives at home Tobacco: Denies Physical Exam Vitals & Measurements T: 36.5 ?C(Oral) HR: 99(Peripheral) RR: 18 BP: 125/74 SpO2: 95% HT: 170 cm WT: 92 kg BMI: 31.83 nurses notes and vital signs reviewed and patient is not hypoxic. General: The patient appears well, resting comfortably. Skin: Warm, dry. Head: Atraumatic. Neck: No JVD. Eye: Normal conjunctiva. Ears, Nose, Mouth, and Throat: Moist mucous membranes. Cardiovascular: Strong distal pulses. Chest wall: Respiratory: Respirations are nonlabored. Back: Normal range of motion. Musculoskeletal: Normal ROM with no gross deformity. Gastrointestinal: Soft and nontender Urological: Neurological: Awake and alert. No focal deficits. Follows commands. Psychiatric: Cooperative. Medical Decision Making Patient well-appearing examination. Abdomen is soft and nontender. No vaginal discharge or bleeding. Urine is negative. She does go on to report that there is been a stomach virus at work and other people have had nausea and vomiting as well. She is treated with Zofran discharged home PCP follow-up. Patient was encouraged to return to the ED if symptoms worsen or change. Assessment/Plan Nausea & vomiting (R11.2: Nausea with vomiting, unspecified) Orders: ondansetron, 4 mg = 1 tab(s), Oral, TID, # 15 tab(s), Refills(s) 0, Pharmacy: [facility], 170, cm, 09/03/22 14:31:00 EDT, Height/Length Dosing, 92, kg, 09/03/22 14:31:00 EDT, Weight Dosing U Beta Hcg Qual UA With Cult Reflex Urine Culture Disposition Plan Patient Discharge Condition Disposition: Discharged home Condition: Improved and stable Counseled: Patient and/or family were counseled to workup, results, treatment plan and follow-up recommendations Discharge Prescription List Prescriptions Zofran ODT 4 mg Tab-Dis, 4 mg= 1 tab(s), Oral, TID Follow-up With When Contact Information Charli CARLSON In 3 days 09/06/2022 EDT [address] [place] [address] [facility] (1) Additional Instructions: Patient Education Nausea and Vomiting, Adult Attestation Patient seen and evaluated by the physician field research assistant. Attending physician was present in the emergency department and supervised care. This visit was performed by both the physician and an APC. I performed all aspects of the MDM as documented. This report was transcribed using voice recognition software. Every effort was made to ensure accuracy, however, inadvertently computerized metal fabricator helper mistakes may be present. Appropriate healthcare PPE was used in evaluating this patient. The patient was placed in a mask. The healthcare provider was wearing mask, gloves, and utilizing proper hand hygiene. All equipment was properly cleansed. Problem List/Past Medical History Ongoing BMI 31.0-31.9,adult Carpal tunnel syndrome on left Non-smoker Obesity Historical Acid reflux Procedure/Surgical History Cholecystectomy (2014), T and A education, Tonsillectomy. Medications Inpatient No active inpatient medications Home Multivitamins with Vitamin B Complex, Vitamin C, Minerals and L-Methylfolate oral capsule, 1 cap(s), Oral, Daily Zofran ODT 4 mg Tab-Dis, 4 mg= 1 tab(s), Oral, TID Allergies Percocet 5/325 (Hives, Rash) Vicodin (Hives) codeine (Hives, Rash) Social History Alcohol - Denies Alcohol Use, 05/26/2017 Substance Abuse - Denies Substance Abuse, 05/26/2017 Tobacco - Denies Tobacco Use, 05/26/2017 Never (less than 100 in lifetime) Tobacco Use:. Never Smokeless Tobacco Use:., 06/01/2022 Family History Family history is negative Lab Results UA Spec Desc: Clean Catch (09/03/22 14:49:00) UA Color: Yellow2 (09/03/22 14:49:00) UA Clarity: Clear2 (09/03/22 14:49:00) UA Spec Grav: >=1.030 (09/03/22 14:49:00) UA pH: 5.5 (09/03/22 14:49:00) UA Protein: NEGATIVE1 (09/03/22 14:49:00) UA Glucose: NEGATIVE1 (09/03/22 14:49:00) UA Ketones: NEGATIVE1 (09/03/22 14:49:00) UA Bili: NEGATIVE1 (09/03/22 14:49:00) UA Blood: NEGATIVE1 (09/03/22 14:49:00) UA Nitrite: NEGATIVE1 (09/03/22 14:49:00) UA Urobilinogen: 0.2 (09/03/22 14:49:00) UA Leuk Est: NEGATIVE1 (09/03/22 14:49:0 (more content not included)... Normal [facility] Comment on above: Result Comment: Elec tronically Signed By: Neil Meza PA-C\.br\Date and Time Signed: 09/03/22 15:50 EDT\.br\Electronically Co-Signed By: Evan Moyer DO\.br\Date and Time Co-Signed: 09/03/22 19:41 EDT ED Patient Education Noteon 09-03-2022 ED Patient Education Note Gastroenterology Nausea and Vomiting, Adult Nausea is the feeling that you have an upset stomach or that you are about to vomit. Vomiting is when stomach contents are thrown up and out of the mouth as a result of nausea. Vomiting can make you feel weak and cause you to become dehydrated. Dehydration can make you feel tired and thirsty, cause you to have a dry mouth, and decrease how often you urinate. Older adults and people with other diseases or a weak disease-fighting system (immune system) are at higher risk for dehydration. It is important to treat your nausea and vomiting as told by your health care provider. Follow these instructions at home: Watch your symptoms for any changes. Tell your health care provider about them. Follow these instructions to care for yourself at home. Eating and drinking ? Take an oral rehydration solution (ORS). This is a drink that is sold at pharmacies and retail stores. ? Drink clear fluids slowly and in small amounts as you are able. Clear fluids include water, ice chips, low-calorie sports drinks, and fruit juice that has water added (diluted fruit juice). ? Eat bland, llqh-jw-xteakg foods in small amounts as you are able. These foods include bananas, applesauce, rice, lean meats, toast, and crackers. ? Avoid fluids that contain a lot of sugar or caffeine, such as energy drinks, sports drinks, and soda. ? Avoid alcohol. ? Avoid spicy or fatty foods. General instructions ? Take itnr-dsr-icjueuq and prescription medicines only as told by your health care provider. ? Drink enough fluid to keep your urine pale yellow. ? Wash your hands often using soap and water. If soap and water are not available, use hand farm equipment operator. ? Make sure that all people in your household wash their hands well and often. ? Rest at home while you recover. ? Watch your condition for any changes. ? Breathe slowly and deeply when you feel nauseated. ? Keep all follow-up visits as told by your health care provider. This is important. Contact a health care provider if: ? Your symptoms get worse. ? You have new symptoms. ? You have a fever. ? You cannot drink fluids without vomiting. ? Your nausea does not go away after 2 days. ? You feel light-headed or dizzy. ? You have a headache. ? You have muscle cramps. ? You have a rash. ? You have pain while urinating. Get help right away if: ? You have pain in your chest, neck, arm, or jaw. ? You feel extremely weak or you faint. ? You have persistent vomiting. ? You have vomit that is bright red or looks like black coffee grounds. ? You have bloody or black stools or stools that look like tar. ? You have a severe headache, a stiff neck, or both. ? You have severe pain, cramping, or bloating in your abdomen. ? You have difficulty breathing, or you are breathing very quickly. ? Your heart is beating very quickly. ? Your skin feels cold and clammy. ? You feel confused. ? You have signs of dehydration, such as: ? Dark urine, very little urine, or no urine. ? Cracked lips. ? Dry mouth. ? Sunken eyes. ? Sleepiness. ? Weakness. These symptoms may represent a serious problem that is an emergency. Do not wait to see if the symptoms will go away. Get medical help right away. Call your local emergency services (911 in the [place] Do not drive yourself to the hospital. Summary ? Nausea is the feeling that you have an upset stomach or that you are about to vomit. As nausea gets worse, it can lead to vomiting. Vomiting can make you feel weak and cause you to become dehydrated. ? Follow instructions from your health care provider about eating and drinking to prevent dehydration. ? Take apma-eiv-newmmyy and prescription medicines only as told by your health care provider. ? Contact your health care provider if your symptoms get worse, or you have new symptoms. ? Keep all follow-up visits as told by your health care provider. This is important. This information is not intended to replace advice given to you by your health care provider. Make sure you discuss any questions you have with your health care provider. Document Released: 11/08/2006 Document Revised: 03/01/2020 Document Reviewed: 04/18/2019 Elsevier Patient Education ? 2019 [employer] Normal [facility] ED Patient Summaryon 022 ED Patient Summary [address] [address] Patient Discharge Instructions Person Information Name: MEENA READ Age: 26 Years Arrival Date: 09/03/2022 14:27:10 Discharge Diagnosis: Nausea & vomiting Primary Care Physician: Charli LOPEZ Provider Information Primary Provider: Evan Moyer DO Advanced Cultural Historian:Neil Meza PA-C The exam and treatment you received in the Emergency Department were for an urgent problem and are not intended as complete care. It is important that you follow up with a doctor, nurse practitioner, or physician?s field research assistant for ongoing care. If your symptoms become worse or you do not improve as expected and you are unable to reach your usual health care provider, you should return to the Emergency Department. We are available 24 hours a day. MEENA READ has been given the following list of patient education materials, prescriptions and follow-up instructions: Follow-up Instructions: With: Address: When: Charli CARLSON [address] [place], [place] [id number] Business (1) In 3 days 09/06/2022 In the event that this physician does not participate in your insurance network, please consult with your insurance company to find a nearby participating provider. Patient Education Materials: Nausea and Vomiting, Adult A MESSAGE TO ALL PATIENTS REGARDING OPIOIDS PRESCRIPTION OPIOIDS: WHAT YOU NEED TO KNOW Prescription opioids can be used to help relieve wslhobba-wq-mrztof pain and are often prescribed following a surgery or injury, or for certain health conditions. These medications can be an important part of the treatment but also come with serious risks. It is important to work with your healthcare provider to make sure you are getting the safest, most effective care. WHAT ARE THE RISKS AND SIDE EFFECTS OF OPIOID USE? Prescription opioids carry serious risks of addiction and overdose, especially with prolonged use. An opioid overdose, often marked by slowed breathing, can cause sudden . The use of prescription opioids can have a number of side effects as well, even when taken as directed: ? Tolerance?meaning you might need to take more of the medication for the same pain relief ? Physical dependence?meaning you have symptoms of withdrawal when a medication is stopped ? Increased sensitivity to pain ? Constipation ? Nausea, vomiting, and dry mouth ? Sleepiness and dizziness ? Confusion ? Depression ? Low levels of testosterone that can result in lower sex drive, energy, and strength ? Itching and sweating RISKS ARE GREATER WITH: ? History of drug misuse, substance use disorder, or overdose ? Mental health conditions (such as depression or anxiety) ? Sleep apnea ? Older age (65 years and older) ? Avoid alcohol while taking prescription opioids. Also, unless specifically advised by your health care provider, medications to avoid include: ? Benzodiazepines (such as Xanax or Valium) ? Muscle relaxants (such as Soma or Flexeril) ? Hypnotics (such as Ambien or Lunesta) ? Other prescription opioids KNOW YOUR OPTIONS Talk to your health care provider about ways to manage your pain that don?t involve prescription opioids. Some of these options may actually work better and have fewer risks and side effects. Options may include: ? Pain relievers such as acetaminophen, ibuprofen, and naproxen ? Some medication that are also used for depression or seizures ? Physical therapy and exercise ? Cognitive behavioral therapy, a psychological, goal-directed approach, in which patients learn how to modify physical, behavioral, and emotional triggers of pain and stress. IF YOU ARE PRESCRIBED OPIOIDS FOR PAIN: ? Never take opioids in greater amounts or more often than prescribed. ? Follow up with your primary health care provider. o Work together to create a plan on how to manage your pain. o Talk about ways to help manage your pain that don?t involve prescription opioids. o Talk about any and all concerns and side effects. ? Help prevent misuse and abuse o Never sell or share prescription opioids. o Never use another person?s prescription opioids. ? Store prescription opioids in a secure place and out of reach of others (this may include visitors, children, friends, and family). ? Safely dispose of unused prescription opioids: Find your community drug take-back program or your pharmacy mail-back program, or flush them down the toilet, following guidance from the Food and Drug Administration (www.fda.gov/Drugs/R esourcesForYou). ? Visit www.cdc.gov/drugover dose to learn about the risks of opioids abuse and overdose. ? If you believe you may be struggling with addiction, tell your health career agent and ask for guidance or call SAMHSA?S National Helpline at 6-310-473-HELP. v Source: US Dep (more content not included)... [facility] U BetaHcg Qualon 09-03-2022 HCG.beta subunit (U) [Moles/Vol] Negative Normal [facility] Comment on above: Performed By: #### 2 [id number], [id number], [id number] ####[facility] [address] [place] [address] UA With Cult Reflexon 2021 Bacteria LM Ql (Urine sed) 2+ /HPF Abnormal Trace [facility] Comment on above: Performed By: #### 2 [id number], [id number], [id number] ####[facility] [address] [place] [address] Bilirubin Ql (U) Negative Normal Negative [facility] Comment on above: Performed By: #### 2 [id number], [id number], [id number] ####[facility] [address] [place] [address] Clarity (U) CLEAR Normal Clear [facility] Comment on above: Performed By: #### 2 [id number], [id number], [id number] ####[facility] [address] [place] [address] Color (U) YELLOW Normal Yellow [facility] Comment on above: Performed By: #### 2 [id number], [id number], [id number] ####[facility] [address] [place] [address] Epithelial cells.squamous LM.HPF (Urine sed) [#/Area] 5-8 Normal 0-2 [facility] Comment on above: Performed By: #### 2 [id number], [id number], [id number] ####[facility] [address] [place] [address] Glucose Test strip (U) [Mass/Vol] Negative Normal Negative [facility] Comment on above: Performed By: #### 2 [id number], [id number], [id number] ####[facility] [address] [place] [address] Hemoglobin Ql (U) Negative Normal Negative [facility] Comment on above: Performed By: #### 2 [id number], [id number], 0454212 ####[facility] [address] [place] [address] Ketones (U) [Mass/Vol] Negative Normal Negative [facility] Comment on above: Performed By: #### 2 [id number], [id number], [id number] ####[facility] [address] [place] [address] Kupreanof.plasma/Lit hium.RBC (Bld) [Mass ratio] 0-3 Normal 0-3 [facility] Comment on above: Performed By: #### 2 [id number], [id number], 5954559 ####[place] [address] Mucus Ql (Urine sed) 1+ Normal [facility] Comment on above: Performed By: #### 2 [id number], [id number], [id number] ####[place] [address] Nitrite Ql (U) Negative Normal Negative [facility] Comment on above: Performed By: #### 2 [id number], [id number], 7220426 ####[address] [address] pH (U) 5.5 [pH] Invalid Interpretation Code 5.0-9.0 [facility] Comment on above: Performed By: #### 2 [id number], [id number], 1563283 ####[address] [address] Protein (U) [Mass/Vol] Negative Normal Negative [facility] Comment on above: Performed By: #### 2 [id number], [id number], 5510010 ####[address] [address] Specific gravity (U) [Rel density] >=1.030 Invalid Interpretation Code 1.005-1.030 [facility] Comment on above: Performed By: #### 2 8270549, [id number], 1128119 ####[place] [address] Type of Urine collection method Clean Catch Normal [facility] Comment on above: Performed By: #### 2 5576565, [id number], [id number] ####[facility] [address] [place] [address] Urobilinogen Qn (U) 0.2 {Elver'U}/dL Normal 0.0-1.0 [facility] Comment on above: Performed By: #### 2 [id number], 19687102, 1731275 ####[facility] [address] [place] [address] WBC Auto Ql (U) Negative Normal Negative [facility] Comment on above: Performed By: #### 2 5899950, 50176610, 2180775 ####[facility] [address] [place] [address] WBC LM.HPF (Urine sed) [#/Area] 0-5 Normal 0-5 [facility] Comment on above: Performed By: #### 2 [id number], [id number], 2459520 ####[facility] [address] [place] [address] XR WRIST LEFT (MIN 3 VIEWS)o n 06-19-2022 XR WRIST LEFT (MIN 3 VIEWS) EXAM: XR WRIST LEFT (MIN 3 VIEWS) HISTORY: M25.532. 26-year-old female, left wrist pain. COMPARISON: None. TECHNIQUE: Three views left wrist. FINDINGS: The radiocarpal joint and wrist are normal. Normal scapholunate distance. No erosion or chondrocalcinosis. IMPRESSION: Normal left wrist. Interpreted by: Mauro Anton Jr., MD Signed by: Mauro Anton Jr., MD 06/19/22 Final result Normal [facility] Normal left wrist. [facility] EXAM: XR WRIST LEFT (MIN 3 VIEWS) HISTORY: M25.532. 26-year-old female, left wrist pain. COMPARISON: None. TECHNIQUE: Three views left wrist. FINDINGS: The radiocarpal joint and wrist are normal. Normal scapholunate distance. No erosion or chondrocalcinosis. [facility] Mauro Anton Jr., MD - 06/19/2022 EXAM: XR WRIST LEFT (MIN 3 VIEWS) HISTORY: M25.532. 26-year-old female, left wrist pain. COMPARISON: None. TECHNIQUE: Three views left wrist. FINDINGS: The radiocarpal joint and wrist are normal. Normal scapholunate distance. No erosion or chondrocalcinosis. IMPRESSION: Normal left wrist. 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 pain has been constant for about 1 week now. History of Present Illness Pt presents today to [facility] care. Previous pt of [facility] in [place]. Concerned today about left wrist pain which started about 1 yr ago; pain has worsened over the last week. 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 Carries everything in her left hand. Right handed. Pain location: medial martinez hand, radiating to wrist Pain description: shooting Pain rated: 2/10, 7/10 with certain movements. 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 Taking 400 mg QD. Review of Systems PHQ Score Initial Depression Screen Score: 0 See above. Physical Exam Vitals & Measurements T: 36.1 ?C(Oral) HR: 88(Peripheral) BP: 122/60 SpO2: 97% HT: 170.0 cm HT: 170 cm WT: 91.3 kg WT: 91.3 kg BMI: 31.59 General: well developed, well groomed, well nourished, in no acute distress. Neck: supple, no masses palpable. Trachea midline. Lungs: normal respiratory effort. Lungs clear and equal to auscultation throughout all raymond anterior and posterior. Cardiovascular: S1 and S2 present, with regular rate and rhythm. No murmur. Radial pulses palpable. No peripheral edema. Abdomen: soft, non-distended, non-tender. Bowel sounds active throughout. Musculoskeletal: full ROM of thomas wrists with smooth movements, without crepitus. Tenderness with full flexion/ext. Joints without swelling, redness, tenderness, deformities bilaterally. Negative Tinels and DeQuervians. + Phalens. Typing Pool Supervisor strength equal. Neurologic: Cranial nerves II-XII grossly intact. Skin: [place], warm and dry. No rashes, ulcerations, or suspicious lesions noted on visible/exposed skin. Mental status: alert and oriented x 3. Normal mood and affect, normal behavior for age. Assessment/Plan 1. Carpal tunnel syndrome on left (G56.02: Carpal tunnel syndrome, left upper limb) Discussed options. Will treat with Ibuprofen, dosing and s/e. reviewed. Declines PT. Will refer to specialist near [place], advised she will be called to set up appt. Continue to wear wrist brace. Avoid heavy lifting or exacerbating activities. Ordered: ibuprofen, 800 mg = 1 tab(s), Oral, TID, Take with food. Not to exceed 3200 mg/day, X 10 day(s), # 30 tab(s), Refills(s) 1, Pharmacy: [id number], 170, cm, 06/01/22 12:55:00 EDT, Height/Length Dosing, 91.3, kg, 06/01/22 12:55:00 EDT, Weight Dosing [facility] External Ambulatory Referral 2. BMI 31.0-31.9,adult (Z68.31: Body mass index [BMI] 31.0-31.9, adult) The standard range for ages 18 and older is >=18.5 and < 25 kg/m2. Your BMI today was above this range, this falls in the obese category and there are medical benefits to weight loss. We can offer counselling, referral, and/or medical support in addressing this problem. Visit [employer].gov for useful information to help make better choices when eating. Your BMI and weight management will be followed at subsequent visits. Ordered: Body Mass Index (BMI) documented 3008F Current tobacco non-user 1036F 3. Obesity (E66.9: Obesity, unspecified) See #2. 4. Non-smoker (Z78.9: Other specified health status) Continue non-smoking behaviors. Follow-up With When Contact Information Meena Carl CNP Only if needed Additional Instructions: Patient Education BMI for Adults Carpal Tunnel Syndrome Problem List/Past Medical History Ongoing BMI 31.0-31.9,adult Carpal tunnel syndrome on left Non-smoker Obesity Historical Acid reflux Procedure/Surgical History Cholecystectomy (2014), [employer] education, Tonsillectomy. Medications ibuprofen 800 mg Tab, 800 mg= 1 tab(s), Oral, TID, 1 refills Multivitamins with Vitamin B Complex, Vitamin C, Minerals and L-Methylfolate oral capsule, 1 cap(s), Oral, Daily Allergies Percocet 5/325 (Hives, Rash) Vicodin (Hives) codeine (Hives, Rash) Social History Alcohol - Denies Alcohol Use, 05/26/2017 Substance Abuse - Denies Substance Abuse, 05/26/2017 Tobacco - Denies Tobacco Use, 05/26/2017 Never (less than 100 in lifetime) Tobacco Use:. Never Smokeless Tobacco Use:., 06/01/2022 Family History Family history is negative Immunizations Vaccine Date Status Hep A, unspecified formulation 02/16/2008 Recorded diphtheria/pertussis , acel/tetanus adult 08/02/2007 Recorded meningococcal conjugate vaccine 08/02/2007 Recorded Hep A, unspecified formulation 08/02/2007 Recorded measles/mumps/rubell a virus vaccine 08/19/2000 Recorded DTaP, unspecified formulation 08/19/2000 Recorded varicella virus vaccine 10/10/1997 Recorded measles/mumps/rubell a virus vaccine 03/09/1996 Recorded Hib, unspecified formulation 03/09/1996 Recorded DTaP, unspecified fo (more content not included)... Normal [facility] Comment on above: Result Comment: Elec tronically Signed By: Meena Carl CNP\.br\Date and Time Signed: 06/01/22 13:16 EDT Patient Educationon 06-01-20 Patient Education Nutrition BMI for Adults Body mass index (BMI) is a number that is calculated from a person's weight and height. BMI may help to estimate how much of a person's weight is composed of fat. BMI can help identify those who may be at higher risk for certain medical problems. How is BMI used with adults? BMI is used as a screening tool to identify possible weight problems. It is used to check whether a person is obese, overweight, healthy weight, or underweight. How is BMI calculated? BMI measures your weight and compares it to your height. This can be done either in Swiss ([place] or metric measurements. Note that charts are available to help you find your BMI quickly and easily without having to do these calculations yourself. To calculate your BMI in Swiss ([place] measurements, your health care provider will: 1. Measure your weight in pounds (lb). 2. Multiply the number of pounds by 703. ? For example, for a person who weighs 180 lb, multiply that number by 703, which equals 126,540. 3. Measure your height in inches (in). Then multiply that number by itself to get a measurement called inches squared. ? For example, for a person who is 70 in tall, the inches squared measurement is 70 in x 70 in, which equals 4900 inches squared. 4. Divide the total from Step 2 (number of lb x 703) by the total from Step 3 (inches squared): 126,540 ? 4900 = 25.8. This is your BMI. To calculate your BMI in metric measurements, your health care provider will: 1. Measure your weight in kilograms (kg). 2. Measure your height in meters (m). Then multiply that number by itself to get a measurement called meters squared. ? For example, for a person who is 1.75 m tall, the meters squared measurement is 1.75 m x 1.75 m, which is equal to 3.1 meters squared. 3. Divide the number of kilograms (your weight) by the meters squared number. In this example: 70 ? 3.1 = 22.6. This is your BMI. How is BMI interpreted? To interpret your results, your health care provider will use BMI charts to identify whether you are underweight, normal weight, overweight, or obese. The following guidelines will be used: ? Underweight: BMI less than 18.5. ? Normal weight: BMI between 18.5 and 24.9. ? Overweight: BMI between 25 and 29.9. ? Obese: BMI of 30 and above. Please note: ? Weight includes both fat and muscle, so someone with a muscular build, such as an athlete, may have a BMI that is higher than 24.9. In cases like these, BMI is not an accurate measure of body fat. ? To determine if excess body fat is the cause of a BMI of 25 or higher, further assessments may need to be done by a health care provider. ? BMI is usually interpreted in the same way for men and women. Why is BMI a useful tool? BMI is useful in two ways: ? Identifying a weight problem that may be related to a medical condition, or that may increase the risk for medical problems. ? Promoting lifestyle and diet changes in order to reach a healthy weight. Summary ? Body mass index (BMI) is a number that is calculated from a person's weight and height. ? BMI may help to estimate how much of a person's weight is composed of fat. BMI can help identify those who may be at higher risk for certain medical problems. ? BMI can be measured using Swiss measurements or metric measurements. ? To interpret your results, your health care provider will use BMI charts to identify whether you are underweight, normal weight, overweight, or obese. This information is not intended to replace advice given to you by your health care provider. Make sure you discuss any questions you have with your health care provider. Document Released: 07/20/2005 Document Revised: 10/21/2018 Document Reviewed: 09/21/2018 [employer] Patient Education ? 2020 [employer] Orthopedics Carpal Tunnel Syndrome Carpal tunnel syndrome is a condition that causes pain in your hand and arm. The carpal tunnel is a narrow area located on the palm side of your wrist. Repeated wrist motion or certain diseases may cause swelling within the tunnel. This swelling pinches the main nerve in the wrist (median nerve). What are the causes? This condition may be caused by: ? Repeated wrist motions. ? Wrist injuries. ? Arthritis. ? A cyst or tumor in the carpal tunnel. ? Fluid buildup during . Sometimes the cause of this condition is not known. What increases the risk? The following factors may make you more likely to develop this condition: ? Having a job, such as being a internal sales or a parking lot attendant and cashier, that requires you to repeatedly move your wrist in the same motion. ? Being a woman. ? Having certain conditions, such as: ? Diabetes. ? Obesity. ? An underactive thyroid (hypothyroidism). ? Kidney failure. What are the signs or symptoms? Symptoms of this condition include: ? A tingling feeling in your fingers, especially in your thumb, index, and midd (more content not included)... Normal [facility] Physician Referralon 022 Physician Referral [id number] Normal [facility] Vital Signs Date Time Vital Sign Value Performing Clinician Faci lity 01-10-2023 14:29-0500 Body height 165.1 cm Best Thorne MD Work Phone: [employer] 01-10-2023 14:29-0500 Body mass index (BMI) [Ratio] 34.35 kg/m2 Best Thorne MD Work Phone: [employer] 01-10-2023 14:29-0500 Body temperature 98.49 [degF] Best Thorne MD Work Phone: [employer] 01-10-2023 14:29-0500 Body weight 93.62 kg Best Thorne MD Work Phone: [employer] 01-10-2023 14:29-0500 Diastolic blood pressure 79 mm[Hg] Best Thorne MD Work Phone: [employer] 01-10-2023 14:29-0500 Heart rate 75 /min Best Thorne MD Work Phone: [facility] 01-10-2023 14:29-0500 Respiratory rate 16 /min Best Thorne MD Work Phone: [employer] 01-10-2023 14:29-0500 SaO2% (BldA) [Mass fraction] 99 % Best Thorne MD Work Phone: [employer] 01-10-2023 14:29-0500 Systolic blood pressure 140 mm[Hg] Best Thorne MD Work Phone: [employer] 01-17-2023 11:51-0500 Blood Pressure Location Keyon BROWN [facility] 12-08-2022 11:51-0500 Body temperature 98.24 [degF] Keyon BROWN [facility] 12-08-2022 11:51-0500 Diastolic blood pressure 78 mm[Hg] Keyon BROWN [facility] 12-08-2022 11:51-0500 Heart rate 84 /min Keyon BROWN [facility] 12-08-2022 11:51-0500 Respiratory rate 16 /min Keyon BROWN [facility] 12-08-2022 11:51-0500 SaO2% (BldA) [Mass fraction] 100 % Keyon BROWN [facility] 12-08-2022 11:51-0500 Systolic blood pressure 114 mm[Hg] Keyon BROWN [facility] 12-04-2022 16:32-0500 Body mass index (BMI) [Ratio] 33.66 kg/m2 Sha Ruelas MD Work Phone: [facility] [employer] 12-04-2022 16:32-0500 Body temperature 98.49 [degF] Sha Ruelas MD Work Phone: [facility] [employer] 12-04-2022 16:32-0500 Body weight 91.76 kg Sha Ruelas MD Work Phone: [facility] [employer] 12-04-2022 16:32-0500 Diastolic blood pressure 75 mm[Hg] Sha Ruelas MD Work Phone: [facility] [employer] 12-04-2022 16:32-0500 Heart rate 91 /min Sha Ruelas MD Work Phone: [facility] 12-04-2022 16:32-0500 Respiratory rate 16 /min Sha Ruelas MD Work Phone: [facility] 12-04-2022 16:32-0500 SaO2% (BldA) [Mass fraction] 99 % Sha Ruelas MD Work Phone: [facility] 12-04-2022 16:32-0500 Systolic blood pressure 123 mm[Hg] Sha Ruelas MD Work Phone: [facility] 06-01-2022 12:50-0400 Blood Pressure Location Meena Carl [facility] 06-01-2022 12:50-0400 Body temperature 96.98 [degF] Meena Carl [facility] 06-01-2022 12:50-0400 Diastolic blood pressure 60 mm[Hg] Meena Carl [facility] 06-01-2022 12:50-0400 Heart rate 88 /min Meena Aguilarell [facility] 06-01-2022 12:50-0400 SaO2% (BldA) [Mass fraction] 97 % Meena Carl [facility] 06-01-2022 12:50-0400 Systolic blood pressure 122 mm[Hg] Meena Aguilarell [facility] 09-14-2021 10:15-0400 Body mass index (BMI) [Ratio] 31.62 kg/m2 Christopher Minh MD Work Phone: [employer] Work Phone: 09-14-2021 10:15-0400 Body weight 86.18 kg Keyon Wilkinson MD Work Phone: [employer] Work Phone: 09-14-2021 10:14-0400 Body height 165.1 cm Keyon Wilkinson MD Work Phone: [employer] Work Phone: 09-14-2021 10:14-0400 Body temperature 98.2 [degF] Keyon Wilkinson MD Work Phone: [employer] Work Phone: 09-14-2021 10:14-0400 Diastolic blood pressure 93 mm[Hg] Keyon Wilkinson MD Work Phone: [employer] Work Phone: 09-14-2021 10:14-0400 Heart rate 91 /min Keyon Wilkinson MD Work Phone: [employer] Work Phone: 09-14-2021 10:14-0400 Respiratory rate 20 /min Keyon Wilkinson MD Work Phone: [employer] Work Phone: 09-14-2021 10:14-0400 SaO2% (BldA) [Mass fraction] 96 % Keyon Wilkinson MD Work Phone: [employer] Work Phone: 09-14-2021 10:14-0400 Systolic blood pressure 131 mm[Hg] Keyon Wilkinson MD Work Phone: [employer] Work Phone: Encounters Encounter Date Encounter Type Care Provider Facility Start: 10-25-2023 End: 10-25-2023 ambulatory YULIA MEERA Not Available Start: 10-18-2023 End: 10-18-2023 ambulatory YULIA MEERA Not Available Start: 10-07-2023 End: 10-07-2023 ambulatory YULIA MEERA Not Available Start: 05-05-2023 End: 05-05-2023 Emergency department patient visit [facility] Start: 04-09-[address] NONE LISTED REQUEST Facility: Start: 02-26-2023 ambulatory [facility] Start: 01-29-2023 End: 02-01-2023 ambulatory [facility] Start: 01-29-2023 End: 02-01-2023 ambulatory [facility] Start: 01-29-2023 End: 01-31-2023 Subsequent hospital visit by physician [facility] Additional Xray At [facility] Comment on above: Other closed fractur e of proximal end of right fibula with routine healing, subsequent encounter Start: 01-29-2023 End: 01-31-2023 Subsequent hospital visit by physician Keyon Brown MD Work Phone: [facility] Start: 01-10-2023 End: 01-10-2023 Emergency department patient visit [facility] Start: 01-10-2023 End: 01-10-2023 Emergency department patient visit Best Thorne MD Work Phone: [facility] ED Comment on above: Injury of right ankl e, initial encounter (Primary Dx) Start: 12-08-2022 End: 12-09-2022 ambulatory Keyon BROWN Facility:[facility] Start: 12-08-2022 End: 12-08-2022 Patient encounter procedure Keyon BROWN [facility] Start: 12-04-2022 End: 12-04-2022 Emergency department patient visit [facility] Start: 12-04-2022 End: 12-04-2022 Emergency department patient visit Sha Ruelas MD Work Phone: [facility] ED Comment on above: Viral illness (Prima ry Dx) Start: 09-03-2022 End: 09-03-2022 Emergency department patient visit Evan OrozcoRosa João Facility[place] Start: 06-19-2022 End: 06-22-2022 ambulatory [facility] Start: 06-19-2022 End: 06-21-2022 Subsequent hospital visit by physician [facility] Additional Xray At [facility] Comment on above: Left wrist pain Start: 06-01-2022 End: 06-02-2022 ambulatory BROACH [employer]TER Meena Carl Facility:[facility] Start: 06-01-2022 End: 06-01-2022 Patient encounter procedure Meena Carl [facility] Start: 05-28-2022 ambulatory BROACH SETTER Meena Carl Faci lity:[facility] Start: 09-14-2021 End: 09-14-2021 Emergency department patient visit Keyon Wilkinson MD Work Phone: [facility] ED Comment on above: Subacute bronchitis (Primary Dx) Procedures Date Procedure Procedure Detail Performing Clinician Start: 01-29-2023 Radex ankle complete minimum 3 views Israel Bills MD Work Phone: Start: 01-10-2023 Radex ankle complete minimum 3 views Best Thorne MD Work Phone: Start: 12-04-2022 [employer] influenza Deniz Ruelas MD Work Phone: Start: 12-04-2022 COVID-19, RAPID Sha Ruelas MD Work Phone: Start: 06-19-2022 Radex wrist complete minimum 3 views Israel Bills MD Work Phone: Start: 11-22-2014 Cholecystectomy Meena Carl Tonsillectomy Meena Carl Tonsils and adenoids postoperative education Meena Carl Plan of Treatment Date Care Activity Detail Author Start: 07-23-2022 Influenza vaccination Flu vaccine (# 1) [facility] [employer] Start: 06-22-2022 Influenza vaccination Flu vaccine (# 1) [facility] [employer] Start: 07-23-2021 Influenza vaccination Flu vaccine (# 1) [employer] Phone: Start: 08-02-2017 DTaP/Tdap/Td vaccine (2 - Td or Tdap) DTaP/Tdap/Td vaccine (2 - Td or Tdap) [facility] [employer] Start: 2015 Screening for malign ant neoplasm of cervix [facility] Start: 2013 DTaP/Tdap/Td vaccine (1 - Tdap) DTaP/Tdap/Td vaccine (1 - Tdap) [employer] Phone: Start: 2012 Hepatitis C screening Hepatitis C sc reen [facility] Start: 2009 [facility] Start: 2006 COVID-19 Vaccine (1) COVID-19 Vaccin e (1) [employer] Phone: Start: 2006 Depression Screen Depression Screen [facility] Start: 2005 HPV vaccine (1 - 2-d ose series) HPV vaccine (1 - 2-dose series) [employer] Phone: Start: 1998 Varicella vaccine (2 of 2 - 2-dose childhood series) Varicella vaccine (2 of 2 - 2-dose childhood series) [facility] [employer] Start: 1995 Varicella vaccine (1 of 2 - 2-dose childhood series) Varicella vaccine (1 of 2 - 2-dose childhood series) [employer] Phone: Start: 05-30-1995 COVID-19 Vaccine (#1) COVID-19 Vacci ne (#1) [facility] Start: 1994 Hepatitis C screening [facility] [employer] Phone: Immunizations Immunization Date Immunization Notes Care Provider Jaci masterson 02-16-2008 Hep A, unspecified formulation Meena Carl [facility] 08-02-2007 Hep A, unspecified formulation Meena Carl [facility] 08-02-2007 meningococcal ACWY vaccine, unspecified formulation Meena Carl [facility] 08-02-2007 tetanus toxoid, reduced diphtheria toxoid, and acellular pertussis vaccine, adsorbed Meena Carl [facility] 08-19-2000 DTaP, unspecified formulation Meena Carl [facility] 08-19-2000 measles, mumps and rubella virus vaccine Meena Carl [facility] 10-10-1997 varicella virus vaccine Meena Carl [facility] 03-09-1996 DTaP, unspecified formulation Meena Carl [facility] 03-09-1996 Hib, unspecified formulation Meena Carl [facility] 03-09-1996 measles, mumps and rubella virus vaccine Meena Carl [facility] 06-11-1995 DTP-Hib Meena Carl [facility] 06-11-1995 hepatitis B vaccine, pediatric or pediatric/adolescent dosage Meena Carl [facility] 04-05-1995 DTP-Hib Meena Carl [facility] 02-01-1995 DTP-Hib Meena Carl [facility] 01-04-1995 hepatitis B vaccine, pediatric or pediatric/adolescent dosage Meena Carl [facility] 1994 hepatitis B vaccine, pediatric or pediatric/adolescent dosage Meena Carl [facility] NEGATED: Highlighted row has not occurred!12-08-2022 influenza virus vaccine, unspecified formulation [employer] KEVIN [facility] [place] NEGATED: Highlighted row has not occurred!12-08-2022 SARS-CoV-2 mRNA (tozinameran 5y-11y) vaccine [employer]ellro[employer] KEVIN [facility] [place] Payers Date Payer Category Payer Unknown [id number] 1994 Unknown [id number] 2.16.8 [id number] 1994 Unknown [id number] 2.16.8 [id number] 1994 Unknown [id number] 2.16.8 [id number] 1994 Unknown [id number] 2.16.8 [id number] 1994 Unknown [id number] 2.16.84 [id number] 1994 Unknown [id number] 2.16.8 [id number] 1994 Unknown [id number] 2.16.8 [id number] 1994 Unknown [id number] 2.16.8 [id number] 1994 Unknown [id number] 2.16.8 [id number] 1994 Unknown [id number] 2.16.8 [id number] 1994 Unknown [id number] 2.16.8 [id number] 1994 Unknown [id number] 2.16.8 [id number] 1994 Unknown [id number] 2.16.8 [id number] 1994 Unknown [id number] 2.16.840 .[id number] 1994 Unknown [id number] 2.16.840 .[id number] 1994 Unknown [id number] 2.16.840 .[id number] 1959 Unknown [id number] 1. [id number] Social History Date Type Detail Facility Start: 05-31-2018 End: 09-14-2021 Tobacco smoking status [facility] Never smoker [employer] Phone: Start: 05-31-2018 End: 09-14-2021 Tobacco use and exposure Never used [employer] Start: 09-14-2021 End: 01-10-2023 Alcohol intake Current non-drinker of alcohol (finding) [employer] Work Phone: Start: 1995 Sex Assigned At Not on file M ALTHIA Work Phone: Start: 11-24-2022 End: 01-10-2023 Exposure to SARS-CoV-2 (event) Not sure [employer] Tobacco smoking status Never [facility] Sex Assigned At Female [facility] Start: 12-04-2022 End: 01-10-2023 History SDOH Alcohol Frequency 1 [email or web address] Phone: Functional Status Date Assessment Result Facility 12-08-2022 Functional Status N/A [facility] [place] 06-01-2022 Functional Status N/A [facility] Clinical Notes 06-01-2022 to 01-10-2023 Discharge InstructionsAttachmentsDischarge InstructionsAttachments Note Date & Type Note Facility 01-10-2023 Hospital Discharg e instructions Best Thorne MD - 01/10/2023 3:17 PM EST There was a possible concern for fracture of the fibula. Please follow-up with Dr. Bills for further evaluation and be sure to use crutches and be nonweightbearing until then. The following attachments cannot be sent through Care Everywhere.Ankle Sprain (Swiss)documented in this encounter [email or web address] Phone: 12-08-2022 Hospital Discharg e instructions Patient Education 12/08/2022 09:52:19 Viral Gastroenteritis, Adult Viral Gastroenteritis, Adult Viral gastroenteritis is also known as the stomach flu. This condition may affect your stomach, small intestine, and large intestine. It can cause sudden watery diarrhea, fever, and vomiting. This condition is caused by many different viruses. These viruses can be passed from person to person very easily (are contagious). Diarrhea and vomiting can make you feel weak and cause you to become dehydrated. You may not be able to keep fluids down. Dehydration can make you tired and thirsty, cause you to have a dry mouth, and decrease how often you urinate. It is important to replace the fluids that you lose from diarrhea and vomiting. What are the causes? Gastroenteritis is caused by many viruses, including rotavirus and norovirus. Norovirus is the most common cause in adults. You can get sick after being exposed to the viruses from other people. You can also get sick by: Eating food, drinking water, or touching a surface contaminated with one of these viruses. Sharing utensils or other personal items with an infected person. What increases the risk? You are more likely to develop this condition if you: Have a weak body defense system (immune system). Live with one or more children who are younger than 2 years old. Live in a usp. Travel on cruise ships. What are the signs or symptoms? Symptoms of this condition start suddenly 1 3 days after exposure to a virus. Symptoms may last for a few days or for as long as a week. Common symptoms include watery diarrhea and vomiting. Other symptoms include: Fever. Headache. Fatigue. Pain in the abdomen. Chills. Weakness. Nausea. Muscle aches. Loss of appetite. How is this diagnosed? This condition is diagnosed with a medical history and physical exam. You may also have a stool test to check for viruses or other infections. How is this treated? This condition typically goes away on its own. The focus of treatment is to prevent dehydration and restore lost fluids (rehydration). This condition may be treated with: An oral rehydration solution (ORS) to replace important salts and minerals (electrolytes) in your body. Take this if told by your health care provider. This is a drink that is sold at pharmacies and retail stores. Medicines to help with your symptoms. Probiotic supplements to reduce symptoms of diarrhea. Fluids given through an IV, if dehydration is severe. Older adults and people with other diseases or a weak immune system are at higher risk for dehydration. Follow these instructions at home: Eating and drinking Take an ORS as told by your health care provider. Drink clear fluids in small amounts as you are able. Clear fluids include: ?Water. ?Ice chips. ?Diluted fruit juice. ?Low-calorie sports drinks. Drink enough fluid to keep your urine pale yellow. Eat small amounts of healthy foods every 3 4 hours as you are able. This may include whole grains, fruits, vegetables, lean meats, and yogurt. Avoid fluids that contain a lot of sugar or caffeine, such as energy drinks, sports drinks, and soda. Avoid spicy or fatty foods. Avoid alcohol. General instructions Wash your hands often, especially after having diarrhea or vomiting. If soap and water are not available, use hand farm equipment operator. Make sure that all people in your household wash their hands well and often. Take ewyj-tzx-clbxnob and prescription medicines only as told by your health care provider. Rest at home while you recover. Watch your condition for any changes. Take a warm bath to relieve any burning or pain from frequent diarrhea episodes. Keep all follow-up visits as told by your health care provider. This is important. Contact a health care provider if you: Cannot keep fluids down. Have symptoms that get worse. Have new symptoms. Feel light-headed or dizzy. Have muscle cramps. Get help right away if you: Have chest pain. Feel extremely weak or you faint. See blood in your vomit. Have vomit that looks like coffee grounds. Have bloody or black stools or stools that look like tar. Have a severe headache, a stiff neck, or both. Have a rash. Have severe pain, cramping, or bloating in your abdomen. Have trouble breathing or you are breathing very quickly. Have a fast heartbeat. Have skin that feels cold and clammy. Feel confused. Have pain when you urinate. Have signs of dehydration, such as: ?Dark urine, very little urine, or no urine. ?Cracked lips. ?Dry mouth. ?Sunken eyes. ?Sleepiness. ?Weakness. Summary Viral gastroenteritis is also known as the stomach flu. It can cause sudden watery diarrhea, fever, and vomiting. This condition can be passed from person to person very easily (is contagious). Take an ORS if told by your health care provider. This is a drink that is sold at pharmacies and retail stores. Wash your hands often, especially after having diarrhea or vomiting. If soap and water are not available, use hand farm equipment operator. This information is not intended to replace advice given to you by your health care provider. Make sure you discuss any questions you have with your health care provider. Document Released: 11/08/2006 Document Revised: 04/26/2020 Document Reviewed: 09/13/2019 [employer] Patient Education 2020 [employer]. Follow Up Care 12/08/2022 09:17:52 With:Keoyn BROWN MD, FAM Address: When: only if needed [facility] [place] 12-04-2022 Hospital Discharg e instructions Sha Ruelas MD - 12/04/2022 4:33 PM EST Increase fluids at home. Take Zofran for any nausea. Try Imodium/loperamide for diarrhea. Call primary care doctor for close follow-up. Use Tylenol or Motrin to keep fever down. The following attachments cannot be sent through Care Everywhere.Viral Infections (Swiss)documented in this encounter [facility] LOZ[facility] [employer] Phone: 06-01-2022 Hospital Discharg e instructions Patient Education 06/01/2022 13:15:41 BMI for Adults BMI for Adults Body mass index (BMI) is a number that is calculated from a person's weight and height. BMI may help to estimate how much of a person's weight is composed of fat. BMI can help identify those who may be at higher risk for certain medical problems. How is BMI used with adults? BMI is used as a screening tool to identify possible weight problems. It is used to check whether a person is obese, overweight, healthy weight, or underweight. How is BMI calculated? BMI measures your weight and compares it to your height. This can be done either in [place] or metric measurements. Note that charts are available to help you find your BMI quickly and easily without having to do these calculations yourself. To calculate your BMI in [place] measurements, your health care provider will: 1.Measure your weight in pounds (lb). 2.Multiply the number of pounds by 703. For example, for a person who weighs 180 lb, multiply that number by 703, which equals 126,540. 3.Measure your height in inches (in). Then multiply that number by itself to get a measurement called inches squared. For example, for a person who is 70 in tall, the inches squared measurement is 70 in x 70 in, which equals 4900 inches squared. 4.Divide the total from Step 2 (number of lb x 703) by the total from Step 3 (inches squared): 126,540 4900 = 25.8. This is your BMI. To calculate your BMI in metric measurements, your health care provider will: 1.Measure your weight in kilograms (kg). 2.Measure your height in meters (m). Then multiply that number by itself to get a measurement called meters squared. For example, for a person who is 1.75 m tall, the meters squared measurement is 1.75 m x 1.75 m, which is equal to 3.1 meters squared. 3.Divide the number of kilograms (your weight) by the meters squared number. In this example: 70 3.1 = 22.6. This is your BMI. How is BMI interpreted? To interpret your results, your health care provider will use BMI charts to identify whether you are underweight, normal weight, overweight, or obese. The following guidelines will be used: Underweight: BMI less than 18.5. Normal weight: BMI between 18.5 and 24.9. Overweight: BMI between 25 and 29.9. Obese: BMI of 30 and above. Please note: Weight includes both fat and muscle, so someone with a muscular build, such as an athlete, may have a BMI that is higher than 24.9. In cases like these, BMI is not an accurate measure of body fat. To determine if excess body fat is the cause of a BMI of 25 or higher, further assessments may need to be done by a health care provider. BMI is usually interpreted in the same way for men and women. Why is BMI a useful tool? BMI is useful in two ways: Identifying a weight problem that may be related to a medical condition, or that may increase the risk for medical problems. Promoting lifestyle and diet changes in order to reach a healthy weight. Summary Body mass index (BMI) is a number that is calculated from a person's weight and height. BMI may help to estimate how much of a person's weight is composed of fat. BMI can help identify those who may be at higher risk for certain medical problems. BMI can be measured using Swiss measurements or metric measurements. To interpret your results, your health care provider will use BMI charts to identify whether you are underweight, normal weight, overweight, or obese. This information is not intended to replace advice given to you by your health care provider. Make sure you discuss any questions you have with your health care provider. Document Released: 07/20/2005 Document Revised: 10/21/2018 Document Reviewed: 09/21/2018 [employer] Patient Education 2020 [employer]. 06/01/2022 13:15:39 Carpal Tunnel Syndrome Carpal Tunnel Syndrome Carpal tunnel syndrome is a condition that causes pain in your hand and arm. The carpal tunnel is a narrow area located on the palm side of your wrist. Repeated wrist motion or certain diseases may cause swelling within the tunnel. This swelling pinches the main nerve in the wrist (median nerve). What are the causes? This condition may be caused by: Repeated wrist motions. Wrist injuries. Arthritis. A cyst or tumor in the carpal tunnel. Fluid buildup during . Sometimes the cause of this condition is not known. What increases the risk? The following factors may make you more likely to develop this condition: Having a job, such as being a internal sales or a parking lot attendant and cashier, that requires you to repeatedly move your wrist in the same motion. Being a woman. Having certain conditions, such as: ?Diabetes. ?Obesity. ?An underactive thyroid (hypothyroidism). ?Kidney failure. What are the signs or symptoms? Symptoms of this condition include: A tingling feeling in your fingers, especially in your thumb, index, and middle fingers. Tingling or numbness in your hand. An aching feeling in your entire arm, especially when your wrist and elbow are bent for a long time. Wrist pain that goes up your arm to your shoulder. Pain that goes down into your palm or fingers. A weak feeling in your hands. You may have trouble grabbing and holding items. Your symptoms may feel worse during the night. How is this diagnosed? This condition is diagnosed with a medical history and physical exam. You may also have tests, including: Electromyogram (EMG). This test measures electrical signals sent by your nerves into the muscles. Nerve conduction study. This test measures how well electrical signals pass through your nerves. Imaging tests, such as X-rays, ultrasound, and MRI. These tests check for possible causes of your condition. How is this treated? This condition may be treated with: Lifestyle changes. It is important to stop or change the activity that caused your condition. Doing exercise and activities to strengthen your muscles and bones (physical therapy). Learning how to use your hand again after diagnosis (occupational therapy). Medicines for pain and inflammation. This may include medicine that is injected into your wrist. A wrist splint. Surgery. Follow these instructions at home: If you have a splint: Wear the splint as told by your health care provider. Remove it only as told by your health care provider. Loosen the splint if your fingers tingle, become numb, or turn cold and blue. Keep the splint clean. If the splint is not waterproof: ?Do not let it get wet. ?Cover it with a watertight covering when you take a bath or shower. Managing pain, stiffness, and swelling If directed, put ice on the painful area: ?If you have a removable splint, remove it as told by your health care provider. ?Put ice in a plastic bag. ?Place a towel between your skin and the bag. ?Leave the ice on for 20 minutes, 2 3 times per day. General instructions Take vwpz-mhj-keidaru and prescription medicines only as told by your health care provider. Rest your wrist from any activity that may be causing your pain. If your condition is work related, talk with your employer about changes that can be made, such as getting a wrist pad to use while typing. Do any exercises as told by your health care provider, physical therapist, or occupational therapist. Keep all follow-up visits as told by your health care provider. This is important. Contact a health care provider if: You have new symptoms. Your pain is not controlled with medicines. Your symptoms get worse. Get help right away if: You have severe numbness or tingling in your wrist or hand. Summary Carpal tunnel syndrome is a condition that causes pain in your hand and arm. It is usually caused by repeated wrist motions. Lifestyle changes and medicines are used to treat carpal tunnel syndrome. Surgery may be recommended. Follow your health care provider's instructions about wearing a splint, resting from activity, keeping follow-up visits, and calling for help. This information is not intended to replace advice given to you by your health care provider. Make sure you discuss any questions you have with your health care provider. Document Released: 11/05/2001 Document Revised: 03/17/2019 Document Reviewed: 03/17/2019 [employer] Patient Education [employer]. Follow Up Care 05/28/2022 08:22:05 With:Meena Carl CNP Address: When: only if needed [facility] Primary Care Evaluation + Plan note [facility] Primary Care Evaluation note Diagnosis Subacute bronchitis- Primary Acute bronchitis documented in this encounter [employer] Phone: evalqeyylu note* Diagnosis Left wrist pain Pain in joint, forearm documented in this encounter [facility] [place] [employer] Phone: evalegmvis note* Diagnosis Viral illness- Primary Unspecified viral infection, in conditions classified elsewhere and of unspecified site documented in this encounter [facility] [place] [employer] Phone: evalnhtevs note* Diagnosis Injury of right ankle, initial encounter- Primary documented in this encounter [employer] Phone: evaldbwtdi note* Diagnosis Other closed fracture of proximal end of right fibula with routine healing, subsequent encounter documented in this encounter [facility] [place] [employer] Phone: Hospital course Narrative No data available for this section [facility] Discharge instructions* Attachments The following attachments cannot be sent through Care Everywhere. 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 Son diagnosed with virus last week. Her pcp told her to push fluids. Reason Comments Ankle Pain Step on a seat wrong and has ankle pain to the right ankle Ordered Prescriptions (unrec ognized section and content) Prescription Sig Dispensed Refills Start Date End Da te Dextromethorphan-guaiFENe sin 60-1200 MG TB12 Take 1 tablet by mouth every 12 hours as needed (COUGH CONGESTION) 28 tablet 0 09/14/2021 amoxicillin-clavulanate (AUGMENTIN) 875-125 MG per tablet Take 1 tablet by mouth 2 times daily for 10 days 20 tablet 0 09/14/2021 09/24/2021 Prescription Sig Dispensed Refills Start Date End Da te loperamide (RA ANTI-DIARRHEAL) 2 MG capsule Take 1 capsule by mouth 4 times daily as needed for Diarrhea 20 capsule 0 12/04/2022 12/14/2022 ondansetron (ZOFRAN) 4 MG tablet Take 1 tablet by mouth every 8 hours as needed for Nausea or Vomiting 12 tablet 0 12/04/2022 Care Team (unrecognized sect ion and content) 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 Specialty Start Date End Date Keyon Brown MD [address] [place] [address] [place] [address] PCP - General Family Medicine 12/04/22 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 Specialty Start Date End Date Keyon Brown MD [address] [place] [address] [place] [address] PCP - General Family Medicine 12/04/22 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 Specialty Start Date End Date Keyon Brown MD [address] [place] [address] [place] [address] PCP - General Family Medicine 12/04/22 INFORMATION SOURCE (unrecogn ized section and content) DATE CREATED AUTHOR 02/01/2023 [facility] DATE CREATED AUTHOR AUTHOR'S ORGANIZ ATION 04/01/2023 [facility] DATE CREATED AUTHOR AUTHOR'S ORGANIZ ATION 05/06/2023 Kirsty charles DATE CREATED AUTHOR AUTHOR'S ORGANIZ ATION 10/26/2023 [facility] FOR RECORDS PERTAINING TO PATIENTS WHO ARE OR HAVE BEEN ENROLLED IN A CHEMICAL DEPENDENCY/SUBSTANCEABUSE PROGRAM, SOME INFORMATION MAY BE OMITTED. This clinical summary was aggregated from multiple sources. Caution should be exercised in using it in the provision of clinical care. This summary normalizes information from multiple sources, and as a consequence, information in this document may materially change the coding, format and clinical context of patient data. In addition, data may be omitted in some cases. CLINICAL DECISIONS SHOULD BE BASED ON THE PRIMARY CLINICAL RECORDS. [employer] provides no warranty or guarantee of the accuracy or completeness of information in this document.
== END 2023-11-30 08:16 | disposition home or self-care (01) ==
LOC: FBCO 08:17
PROVIDERS: Visit Provider Obstetrics & Gynecology
DX: Z39.1 Encounter for care and examination of lactating mother (principal)

== ENCOUNTER 2024-02-03 11:35 | Outpatient (RCR) | payer OTHER, SELFPAY ==
--- OUTSIDE RECORDS SUMMARY | 2024-02-03 11:49 | XMS_ITS | CCD ---
Author Name Unknown Address [address] [place] [address] Organization [facility] Care Team Providers Care Timber Robber Name Role Phone Unavailable Primary Care Provider UnavailCharli Browne Primary Care Physician Kevin BENAVIDEZ, Keyon Brandon Primary Care Provider ANTHONY Carl Attending UnavailKeyon Lockett Unavailable Evan Moyer Attending Unavailable LISHA, DR RDUMMOND LISTED Consulting Unavailronald BAXTER, DR NICOLE Primary Care Unavailable MEERA ., DR BENDER Attending Unavailable MEERA ., DR BENDER Admitting Unavailable ISRAEL BILLS Referring Unavailable ISRAEL BILLS Referring Unavailable ISRAEL BILLS Referring Unavailable KEYON BRWON Primary Care Unavailable KEYON BROWN Primary Care [...] Acetaminophen / HYDROcodone Drug Allergy 7 Rash [facility] (6 sources) Acetaminophen / oxyCODONE Drug Allergy 6 Rash [facility] (9 sources) Codeine; Translations: [codeine] Drug Allergy 7 Rash, Cutaneous eruption (morphologic abnormality) [facility] (3 sources) Acetaminophen / HYDROcodone; Translations: [acetaminophen-hy drocodone] Drug Allergy Hives [facility] (3 sources) Acetaminophen / oxyCODONE; Translations: [acetaminophen-ox ycodone] Drug Allergy Cutaneous eruption (morphologic abnormality) [facility] (1 source) Acetaminophen / HYDROcodone Drug Allergy [facility] (1 source) Acetaminophen / oxyCODONE Drug Allergy [facility] (1 source) Codeine Drug Allergy [facility] Medications Current Medications Medication Drug [...] extended release oral tablet (6 sources) Uncompetitive L-mxlfat-D-aspartate Receptor Antagonist, Sigma-1 Agonist Start: 09-14-2021 take 1 tablet by mouth every twelve hours as needed for cough Dextromethorphan- guaiFENesin 60-1200 MG TB12 Take 1 tablet by mouth every 12 hours as needed (COUGH CONGESTION) 28 tablet 0 09/14/2021 Active dextromethorphan hydrobromide 3 mg/ml / promethazine hydrochloride 1.25 mg/ml oral solution (6 sources) Phenothiazine, Uncompetitive K-qgjpuz-J-aspartate Receptor Antagonist, Sigma-1 Agonist Start: 05-31-2018 promethazine-dext [...] day(s), # 30 tab(s), Refills(s) 1, Pharmacy: [facility], 170, cm, 06/01/22 12:55:00 EDT, Height/Length [...] TID, # 15 tab(s), Refills(s) 0, Pharmacy: [facility], 170, cm, 09/03/22 14:31:00 EDT, Height/Length [...] 05-05-2023 Abs. Basophil 0.00 k/uL Normal 0.0-0.2 [facility] Comment on above: Performed By: #### C DP, CP #### [facility] [address] [place] [address] Plant Safety Leader: Armen Madrigal MD Abs.Neutrophil (Seg) 5.30 k/uL Normal 2.5-7.0 [facility] Comment on above: Performed By: #### C DP, CP #### [facility] [address] [facility] [place] [address] Plant Safety Leader: Armen Madrigal MD Auto Diff Performed YES Normal [facility] Comment on above: Performed By: #### C DP, CP #### [facility] [address] [facility] [address] [place], [place] [phone] Plant Safety Leader: Armen Madrigal MD Basophils/100 WBC (Bld) 1 % Normal 0-2 [facility] Comment on above: Performed By: #### C DP, CP #### [facility] [address] [place], [place] [phone] Plant Safety Leader: Armen Madrigal MD Eosinophils (Bld) [#/Vol] 0.00 10*3/uL Normal 0.0-0.4 [facility] Comment on above: Performed By: #### C DP, CP #### [facility] [address] [place], [place] [phone] Plant Safety Leader: Armen Madrigal MD Eosinophils/100 WBC (Bld) 1 % Normal 0-5 [facility] Comment on above: Performed By: #### C DP, CP #### [facility] [address] [place] [phone] Plant Safety Leader: Armen Madrigal MD Erythrocyte distribution width (RBC) [Ratio] 13.8 % Normal 12.1-15.2 [facility] Comment on above: Performed By: #### C DP, CP #### [facility] [address] [place] [phone] Plant Safety Leader: Armen Madrigal MD Hematocrit (Bld) [Volume fraction] 34.4 % Low 36-46 [facility] Comment on above: Performed By: #### C DP, CP #### [facility] [address] [place] [phone] Plant Safety Leader: Armen Madrigal MD Hemoglobin (Bld) [Mass/Vol] 11.9 g/dL Low 12.0-16.0 [facility] Comment on above: Performed By: #### C DP, CP #### [facility] [address] [place], [place] [phone] Plant Safety Leader: Armen aMdrigal MD Lymphocytes (Bld) [#/Vol] 1.90 10*3/uL Normal 1.0-4.8 [facility] Comment on above: Performed By: #### C DP, CP #### [facility] [address] [place] [address] Plant Safety Leader: Armen Madrigal MD Lymphocytes/100 WBC (Bld) 25 % Normal 15-40 [facility] Comment on above: Performed By: #### C DP, CP #### [facility] [address] [place] [address] Plant Safety Leader: Armen Madrigal MD MCH (RBC) [Entitic mass] 29.3 pg Normal 26-34 [facility] Comment on above: Performed By: #### C DP, CP #### [facility] [address] [place] [address] Plant Safety Leader: Armen Madrigal MD MCHC (RBC) [Mass/Vol] 34.6 g/dL Normal 31-37 [facility] Comment on above: Performed By: #### C DP, CP #### [facility] [address] [place] [address] Plant Safety Leader: Armen Madrigal MD MCV (RBC) [Entitic vol] 84.8 fL Normal 80-100 [facility] Comment on above: Performed By: #### C DP, CP #### [facility] [address] [place] [phone] Plant Safety Leader: Armen Madrigal MD Monocytes (Bld) [#/Vol] 0.50 10*3/uL Normal 0.0-1.0 [facility] Comment on above: Performed By: #### C DP, CP #### [facility] [address] [place] [address] Plant Safety Leader: Armen Madrigal MD Monocytes/100 WBC (Bld) 6 % Normal 4-8 [facility] Comment on above: Performed By: #### C DP, CP #### [facility] [address] [place], [place] [phone] Plant Safety Leader: Armen Madrigal MD Neutrophil (Seg) 67 % Normal 47-75 [facility] Comment on above: Performed By: #### C DP, CP #### [facility] [address] [place] [address] Plant Safety Leader: Armen Madrigal MD Platelets (Bld) [#/Vol] 191 10*3/uL Normal 140-450 [facility] Comment on above: Performed By: #### C DP, CP #### [facility] [address] [place], [place] [phone] Plant Safety Leader: Armen Madrigal MD RBC (Bld) [#/Vol] 4.06 10*6/uL Normal 4.0-5.2 [facility] Comment on above: Performed By: #### C DP, CP #### [facility] [address] [place], [place] [phone] Plant Safety Leader: Armen Madrigal MD WBC (Bld) [#/Vol] 7.7 10*3/uL Normal 3.5-11.0 [facility] Comment on above: Performed By: #### C DP, CP #### [facility] [address] [place], [place] [phone] Plant Safety Leader: Armen Madrigal MD Comp Metabolic Profon 2022 Albumin [Mass/Vol] 3.4 g/dL Low 3.5-5.2 [facility] Comment on above: Performed By: #### C DP, CP #### [facility] [address] [place], [place] [phone] Plant Safety Leader: Armen Madrigal MD Alkaline Phos 44 U/L Normal 35-104 [facility] Comment on above: Performed By: #### C DP, CP #### [facility] [address] [place], [place] [phone] Plant Safety Leader: Armen Madrigal MD ALT [Catalytic activity/Vol] 5 U/L Normal 5-33 [facility] Comment on above: Performed By: #### C DP, CP #### [facility] [address] [place], [place] [phone] Plant Safety Leader: Armen Madrigal MD Anion gap [Moles/Vol] 11 mmol/L Normal 9-17 [facility] Comment on above: Performed By: #### C DP, CP #### [facility] [address] [place], [place] [phone] Plant Safety Leader: Armen Madrigal MD AST [Catalytic activity/Vol] 9 U/L Normal <32 [facility] Comment on above: Performed By: #### C DP, CP #### [facility] [address] [place], [place] [phone] Plant Safety Leader: Armen Madrigal MD Bilirubin [Mass/Vol] 0.2 mg/dL Low 0.3-1.2 [facility] Comment on above: Performed By: #### C DP, CP #### [facility] [address] [place], [place] [phone] Plant Safety Leader: Armen Madrigal MD BUN/CRE Ratio 22 High 9-20 [facility] Comment on above: Performed By: #### C DP, CP #### [facility] [address] [place], [place] [phone] Plant Safety Leader: Armen Madrigal MD Calcium [Mass/Vol] 8.8 mg/dL Normal 8.6-10.4 [facility] Comment on above: Performed By: #### C DP, CP #### [facility] [address] [place], [place] [phone] Plant Safety Leader: Armen Madrigal MD Chloride [Moles/Vol] 104 mmol/L Normal 98-107 [facility] Comment on above: Performed By: #### C DP, CP #### [facility] [address] [place] [address] Plant Safety Leader: Armen Madrigal MD CO2 [Moles/Vol] 19 mmol/L Low 20-31 [facility] Comment on above: Performed By: #### C DP, CP #### [facility] [address] [place] [address] Plant Safety Leader: Armen Madrigal MD Creatinine [Mass/Vol] 0.55 mg/dL Normal 0.50-0.90 [facility] Comment on above: Performed By: #### C DP, CP #### [facility] [address] [place] [address] Plant Safety Leader: Armen Madrigal MD GFR/1.73 sq M.predicted among non-blacks MDRD (S/P/Bld) [Vol rate/Area] mL/min/{1.73_m2} Normal >60 [facility] Comment on above: Result Comment: These results [...] Performed By: #### C DP, CP #### [facility] [address] [place] [address] Plant Safety Leader: Armen Madrigal MD Glucose [Mass/Vol] 86 mg/dL Normal 70-99 [facility] Comment on above: Performed By: #### C DP, CP #### [facility] [address] [place] [address] Plant Safety Leader: Armen Madrigal MD Potassium [Moles/Vol] 3.8 mmol/L Normal 3.7-5.3 [facility] Comment on above: Performed By: #### C DP, CP #### [facility] [address] [place], [place] [phone] Plant Safety Leader: Armen Madrigal MD Protein [Mass/Vol] 6.0 g/dL Low 6.4-8.3 [facility] Comment on above: Performed By: #### C DP, CP #### [facility] [address] [place], [place] [phone] Plant Safety Leader: Armen Madrigal MD Sodium [Moles/Vol] 134 mmol/L Low 135-144 [facility] Comment on above: Performed By: #### C DP, CP #### [facility] [address] [place], [place] [phone] Plant Safety Leader: Armen Madrigal MD Urea nitrogen [Mass/Vol] 12 mg/dL Normal 6-20 [facility] Comment on above: Performed By: #### C DP, CP #### [facility] [address] [place], [place] [phone] Plant Safety Leader: Armen Madrigal MD Urinalysis, Routineon 2022 Bilirubin, SemiQt,Ur Negative Normal NEG [facility] Comment on above: Performed By: #### U A #### [facility] [address] [place], [place] [phone] Plant Safety Leader: Armen Madrigal MD Blood, Urine Negative Normal NEG [facility] Comment on above: Performed By: #### U A #### [facility] [address] [place], [place] [phone] Plant Safety Leader: Armen Madrigal MD Clarity (U) Clear Normal CLEAR [facility] Comment on above: Performed By: #### U A #### [facility] [address] [place], [place] [phone] Plant Safety Leader: Armen Madrigal MD Color (U) Yellow Normal YEL [facility] Comment on above: Performed By: #### U A #### [facility] [address] [place], [place] [phone] Plant Safety Leader: Armen Madrigal MD Comment Normal [facility] Comment on above: Performed By: #### U A #### [facility] [address] [place], [place] [phone] Plant Safety Leader: Armen Madrigal MD Glucose Ql (U) Negative Normal NEG [facility] Comment on above: Performed By: #### U A #### [facility] [address] [place] [address] Plant Safety Leader: Armen Madrigal MD Ketones Ql (U) TRACE Abnormal NEG [facility] Comment on above: Performed By: #### U A #### [facility] [address] [place] [address] Plant Safety Leader: Armen Madrigal MD Leukocyte esterase Test strip Ql (U) Negative Normal NEG [facility] Comment on above: Performed By: #### U A #### [facility] [address] [place] [address] Plant Safety Leader: Armen Madrigal MD Nitrite,Ur Negative Normal NEG [facility] Comment on above: Performed By: #### U A #### [facility] [address] [place], [place] [phone] Plant Safety Leader: Armen Madrigal MD PH,Ur 6.0 Normal 5.0-8.0 [facility] Comment on above: Performed By: #### U A #### [facility] [address] [place], [place] [phone] Plant Safety Leader: Armen Madrigal MD Protein Ql (U) Negative Normal NEG [facility] Comment on above: Performed By: #### U A #### [facility] [address] [place], [place] [phone] Plant Safety Leader: Armen Madrigal MD Spec. [place],Ur 1.025 Normal 1.005-1.030 [facility] Comment on above: Performed By: #### U A #### [facility] [address] [place] [address] Plant Safety Leader: Armen Madrigal MD Urobilinogen,Ur Normal Normal NORM [facility] Comment on above: Performed By: #### U A #### [facility] [address] [place] [address] Plant Safety Leader: Armen Madrigal MD RAD - MISCon 02-01-2023 RAD - MISC [id number] #1.00CD:127 Normal [facility] XR ANKLE RIGHT (MIN 3 VIEWS) [...] Anton Jr., MD 01/29/23 Final result Normal [facility] FINDINGS/IMPRESSION: 1. Compression fracture tip of the fibula no longer separately seen. 2. Anatomic alignment throughout. 3. Soft tissue swelling has resolved. [facility] EXAM: XR ANKLE RIGHT (MIN 3 VIEWS). HISTORY: Other closed fracture of proximal end of right fibula with routine healing, subsequent encounter. COMPARISON: 01/10/2023. [facility] Mauro Anton Jr., MD - 01/29/2023 EXAM: XR ANKLE RIGHT (MIN 3 VIEWS). HISTORY: Other closed fracture of proximal end of right fibula with routine healing, subsequent encounter. COMPARISON: 01/10/2023. IMPRESSION: FINDINGS/IMPRESSION: 1. Compression fracture tip of the fibula no longer separately seen. 2. Anatomic alignment throughout. 3. Soft tissue swelling has resolved. [facility] [employer] Phone: Radiology Study observation (narrative) [employer] Phone: XR ANKLE RIGHT (MIN 3 VIEWS) Ordered By: Mauro Anton on 01-29-[address] [facility] [employer] Phone: RAD - MISCon 01-11-2023 RAD - MISC [id number] #1.00CD:127 Normal [facility] XR ANKLE RIGHT (MIN 3 VIEWS) [...] João Amezquita MD 01/10/23 Final result Normal [facility] FINDINGS/IMPRESSION: 1. Very small nondisplaced incomplete fracture is questioned in the distal tip of the right fibula, with mild surrounding soft tissue swelling. 2. No other fracture, malalignment, significant arthritis or acute bony abnormality is seen. [facility] CLINICAL HISTORY: Right ankle pain and swelling since an injury yesterday. RIGHT ANKLE 3 VIEWS: [facility] João Amezquita MD - 01/10/2023 CLINICAL HISTORY: Right ankle pain and swelling since an injury yesterday. RIGHT ANKLE 3 VIEWS: IMPRESSION: FINDINGS/IMPRESSION: 1. Very small nondisplaced incomplete fracture is questioned in the distal tip of the right fibula, with mild surrounding soft tissue swelling. 2. No other fracture, malalignment, significant arthritis or acute bony abnormality is seen. [employer] Phone: Radiology Study observation (narrative) [employer] Phone: XR ANKLE RIGHT (MIN 3 VIEWS) Ordered By: João Amezquita on 01-10-2023 [employer] [employer] Phone: Ambulatory Visit Summaryon 0 12-08-2022 Ambulatory Visit Summary MEENA READ :1995 Visit Date:12/08/2022 Ambulatory Visit Instructions Your Diagnosis Gastroenteritis due to [place]-like virus Obesity due to excess calories BMI [...] to 60 minutes before meals Pickup at [facility] Unchanged multivitamin, ( Multivitamins with Vitamin B Complex, Vitamin C, Minerals and L-Methylfolate oral capsule) 1 Capsules By Mouth Every day Contact prescribing physician if questions or concerns Unchanged ondansetron (Zofran ODT 4 mg Tab-Dis) 1 Tablets By Mouth 3 times a day Contact prescribing physician if questions or concerns Pharmacy Information [facility]: [address], [place] [phone] Medications and Immunizations Administered Not Given influenza virus vaccine, inactivated, Postpone due to refusal SARS-CoV-2 mRNA (tozinameran 5y-11y) vac, Postpone due to refusal Allergies Percocet 5/325 (Hives, Rash) Vicodin (Hives) codeine (Hives, Rash) Problems Ongoing - Any problem that you are currently receiving treatment for. BMI 31.0-31.9,adult Gastroenteritis due to [place]-like virus Non-smoker Obesity due to excess calories [...] 1 years old. ? Live in a residential. ? Travel on cruise ships. What are [...] immune system (more content not included)... Normal [facility] ED Note-Physicianon 12-08-19 ED Note-Physician [id number] #1.00CD:127 Normal [facility] Family Medicine Office/Clini c Noteon 12-08-2022 [...] influenza and COVID. 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 She has [employer] water. Has not had any recent antibiotics [...] Cooperative insightful Assessment/Plan 1. Gastroenteritis due to [place]-like virus (A08.8: Other specified intestinal infections) Viral [...] day(s), # 30 tab(s), Refills(s) 0, Pharmacy: [facility], 170, cm, 12/08/22 12:00:00 EST, Height/Length Dosing, 90.5, kg, 12/08/22 12:00:00 EST, Weight Dosing Follow-up With When Contact Information Keyon BROWN MD, FAM Only if needed Additional Instructions: Patient Education Viral Gastroenteritis, Adult Problem List/Past Medical History Ongoing BMI 31.0-31.9,adult Gastroenteritis due to [place]-like virus Non-smoker Obesity due to excess calories [...] Use, 05/26/2017 Employment/School 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 Never Smokeless Tobacco Use:., 12/08/2022 Family History Family history is negative Immunizations Vaccine Date Status Comments influenza virus vaccine, inactivated - Not Given Postpone due to refusal SARS-CoV-2 mRNA (tozinameran 5y-11y) vac - Not Given Postpone due to refusal Hep A, unspecified formulation 02/16/2008 Recorded diphtheria/pertussis , acel/tetanus adult 08/02/2007 Recorded meningococcal conjugate vaccine 08/02/2007 Recorded Hep A, unspecified formulation 08/02/2007 Recorded measles/mumps/rubell a virus vaccine 08/19/2000 Recorded DTaP, unspecified formulation 08/19/2000 Recorded varicella virus vaccine 10/10/1997 Recorded m (more content not included)... Normal [facility] Comment on above: Result Comment: Elec tronically Signed By: KEVIN BENAVIDEZ, Keyon\.br\Date and Time Signed: 12/08/22 12:20 EST Patient Educationon 12-08-19 Patient Education Gastroenterology Viral Gastroenteritis, Adult Viral [...] 1 years old. ? Live in a residential. ? Travel on cruise ships. What are [...] and water are not available, use hand woodworking machine feeder. ? Make sure that all people in your household wash their hands well and often. ? Take jftr-hjk-sqzhlkd and prescription medicines only as told by [...] to person (more content not included)... Normal [facility] COVID-19, Rapidon 12-04-2022 SARS-CoV-2 (COVID-19) RNA WADE+probe Ql (Unsp spec) Not detected Not Detected [facility] Comment on above: Rapid NAAT: The [...] management decisions. Fact sheet for Healthcare Providers: https://www.fda.gov/media/747272/download Fact sheet for Patients: https://www.fda.gov/media/757897/download Methodology: Isothermal Nucleic Acid Amplification Specimen Description .NASOPHARYNGEAL SWAB [facility] Flu A/B Ag Detectionon 12-04 Flu A Ag Detection Negative Normal NEG [facility] Comment on above: Result Comment: for Influenza A Antigen Performed By: #### F LUABA #### [facility] [address] [place] [address] Plant Safety Leader: Armen Madrigal MD Flu B Ag Detection Negative Normal NEG [facility] Comment on above: Result Comment: for Influenza B Antigen. Performed By: #### F LUABA #### [facility] [address] [place] [address] Plant Safety Leader: Armen Madrigal MD Rapid influenza A/B antigens on 12-04-2022 Flu A Antigen Negative NEGATIVE [facility] Comment on above: for Influenza A Anti gen Flu B Antigen Negative NEGATIVE [facility] Comment on above: for Influenza B Anti gen. [facility] JTQO-QlX-2fk 12-04-2022 SARS-CoV-2 (COVID-19) RNA WADE+probe Ql (Unsp spec) Not detected Normal [facility] Comment on above: Result Comment: Rapid [...] management decisions. Fact sheet for Healthcare Providers: https://www.fda.gov/media/906547/download Fact sheet for Patients: https://www.fda.gov/media/627656/download Methodology: Isothermal Nucleic Acid Amplification Performed By: #### C OVRB #### [facility] [address] [place] [address] Plant Safety Leader: MD Massimo Stevens Urineon 09-06-2022 Bacteria identified [...] Locations R1: This test was performed at: [facility], [address] [place] [address], [phone] , [facility] Comment on above: Performed By: #### 2 [id number], [id number], [id number] ####[facility] [address] [address] Coding Summary.on 09-04-2022 Coding Summary. [id number] Gh0bWw+PGhlYWQ+PE1FV OUzC70gySYtnS8VT5nMF B7FAQBASSWFJV7BOE7ta LU1ACovA0YdfaLw RbtpfLPuIO38PLx8CMC3 tLyyVKalrB8ezIMqO6c8 FuEvVS86gS75BZvqRJQf UnN8BpGgsmegwIDq O1bbUeJvvJFiHzt+PHRh YmxlIHdpZHRoPScxMDAl RgLctOzvMX5fRy5tIQAb LWNvbGxhcHNlOiBj a4ubPTOcXBcfQO9btNnl P4AyfXR6ECIak4v4Xd49 dHI+XTOmRGY0fLqwMAgw t694NkHdw5voGDU7 uVKcOAmbOYL6R38ma3K3 HDOrPNLqHDT5dTZ8gD4z zHnlpqfuT2IddXIqPpQ1 XFG0sDXjvB8dpYkq ezaptZ7fYbt+D05VNJ7C TZQHCW5DRll6R8EzYnmk dHI+BE45XAZpSW31qQTy dXNdq9iaxUt7RwCn YLFjQOI9hQyfJGhai5Ly EWWfI00urUMni5N8UOZh nNcdmLSwDzQhmKY0iW7a QUkdhkilw5fveady Oefvm7sqyb30uV29G11b SLkfHOHiXBR1JJHqFGAq rXaucx9kjG4aLm0+IDxj k6ypp5ozyBn6AsLs WKSujyGibOxsTHC7p2Dz Gf64V1HrtCjmj3HnCun6 be43tHMlq0Q1gKR9WQtd DSEdoF4eGGneQqF9 OHUqEnHqvF38yXTsOQtk Mx5azQxgxUvmOO6fNXCt azgbRDHfwF8xTWRspTUf dIjtPQ8cWXPyetxo a686GcUyITJ8JPWllCNu H4VfwB0sSnRgIIBoARWg P6HroPEwDLgbP510SBvh QdM3TAUrtyAaB4Wg NUAtyGqvTyS6p8P6Ve4Y g5CkwxoyLWE3IKdjPAXy GaE6KbNrPaD9Y7CtAqv9 DBUpvOmqET3tH3Ik ZKJyjiiozxkpmEO7OZFe OBHjfZ18kIJuLBtcCu5v u5L8b495IYMtGKWhpY06 La5qcWtwHTJxoJIU gP5taolrk9epabjjGdTe OIAxTAt6VQz5YXVeuAbi HlDbMAU8DfK3SFM2kNMs lM6wpCrpudiyzJ6h Oyc+O99opJ7kPBS4KJR3 lgmbJHVpzrXmFV95BH85 P2LkKnfvfGIneLX+PGRp ipQjgTtaYB9rXzEe i2eih5YqERkqS2OpNJHu RIqjLrs8EEQbVSN3zPS4 wL5sTBAhKXeer0T2wYU6 J7WpwjSnvm3cg8fh GIFnYRrlW50fgOYmg9N5 EXYgcAI3UTYmqCgiBgNj uQ21Voh+EXWypDhgd9Hs Qbwko5yhz1jlbAg4 IjMwJSIgdmFsaWduPSJ0 j2BzGw45K61bLWnqQEVx FZTtLZAoNRLedQhkwd6u jK2tJz0+PGNvbCB3 vJR6zC1tKJYlNrH3OErr V073OnFgaSCoRmbar9ny e2lxkRq0KnFaWHMkgeBr uEvyFRZ1s0KlOv47 S33bSErhZNYhEIEeVROu QUDcgUihza4lsB6pWo8+ YN3vb3opij28yH84cOJ+ OCYrRTQ0iNglFHfd UJVhbV7cXBrpDzV3EIXe OxFhhX44hXRkZNirXm9u aEymtRaqQG3sQFOewmbv o938LzCwo6yxVDKe dNMkOMjsUSI5Y06hc1M9 DPHoISFrBGM9hXR3iL7u bGlnbjogbGVmdDsgdmVy yWxiDUgoCAeaX290 IHRvcDsnPlBhdGllbnQg WqHhWDt3J2TzZud7NVBp aCgzKC4fdTNiMMheWb4t jQstlOooFZ7oSSFr hsohk505VdQex4hqGXAq cFAxSQpsDWA1D58fr7J8 AUZrUEFtKMW9uOO6wL1v bGlnbjogbGVmdDsg huIdxHpyYHloUKviA702 IHRvcDsnPkJpcnRoIERh sML5BG38CX38bZSiy5C2 uLL2X4EhLLFbpqog iriouOF3YTPgSXOiyI02 Ln2pvLapIp9pJJEpUZF8 PSTijSQhM6YtcG9iXeZk NDKqMVChZ8QshRQz RZbsL699OUpkRtR3CQQn faDnW0YsJBMgmOjtRoT2 l9F9Gz2QI7H0AA98DB80 mTQeg1V2fVS0O4Db ONGjyhroilcyoHJ6WOAk MIKacK50Aa5bfUeaTz5l XCJtGJH1NKFjbTRkR6Ft pD2rSvPlWZKeWZIu S1RwnIEfBZegN890WShf RyR4OHNavoGiK3OuFVRm qGyeYyG3c1I3Ly5JUTg6 RM02NW12kIVvb9I3 tXT0F9OcUYDmqjfkpike nZW1DFQrHRNnnP57Rf1r fRpgNa2dCQEvZHO7DYLl kQDiE9XzkI1kGpGd YBQcFCGpY8UusONrEQqz Z354LYfqJmX7LCBvcjPe C8TpGNPqjRynHxN8i0S2 Bv2MCFZaXV65HGI5 kSN8UV28DA46Q1AcYgsl dGFibGU+PHRhYmxlIHdp ZHRoPScxMDAlJyBzdHls PE4dJm6wNKXgOGVb nOalkIMkSdHqu7hhUTTw DXyrZR7yqZxbI4CuqVO1 QWXli7u6Qd69D03oG2Qu dXA+RPWaxIT1iTT4 zU5nFhMlDrZ3MFnzJ719 GcYwjHQkKajqp4qlh3uo rJn5JhW1PKYfztFczBhu NCY6c7IuWh77H72z IHdpZHRoPSIxNSUiIHZh rPwiec4ikN9fHm8+PGNv sIS9oMP0hC8yLtFlGhW8 AZzwX788IiRkvJSg Iwuvf1afu4uytUg4RsNo ULNhqwYaeFuoGEW7i7Pd Lp55Q4SxlBkpy8HaUds3 xr61mHHba9O3uNM8 J2CiZZQfdkseaLRjsJxe EX6mWYRxmrwlLEMyoS8f DPNeL3q5HbPiOuE0IAlh Z4MawaH1HGGskELc RXnmUKM8C20oj8B5AZDf PKUnLLH7dPG4tO7twCfr bjogbGVmdDsgdmVydGlj EWlhWZtrQ476SEDi vMdgSCCmuS8gHAVyxWRm cPgnOJ6gNHOaiqhsUiAW Ja4PPUQlWZrACWxMEN9u RTwvdGQ+PHRkIHN0 kOaaPWpkWXQzkB0kWDYe V3a2OiQdEcS9TApfO7Vq PWPchceyWh75bW6pObAy HlZ1MZwnC0MpvrN9 XOEffNPqRKamJLT0L94m n2K2XZTxDQZaREV0pEA9 dI7pqJnrpfxbxJTonUkk dmVydGljYWwtYWxp S027FWEnuZobWeZsZvH0 BtR5VVW7O3BpChb5JPAf vCtmFZ9xpVVyZWcaHx2b uMpveHfrBW4eBGKc lrikVTCnpM1nCHYklNNq zVfvRL8uCYSyeszjo020 ZfNaMJN4AIJirNHaQ6Yf cH1gMtKkCKQgRBGe W4RqaDSvDXmgI791XDpw VsK7VPKtktOlV9GnHICu oJabTlR0f2W1Xh6xDyKO ZWFyczwvdGQ+PHRk HMP0zBakBZjcFVIngI3o JEYcJ5r0DvMlGwC8KOcr R1QjTQYqsyovHm73qM1w ZhBhKkB5PWnoR8Aq onM8WGQhfYGdTYdcUME1 F25jv9S2WHQaORWzOJB6 iUO5gE4ckVemijjcbZQw dDsgdmVydGljYWwt TDixL890DHTkhZbpSeAm bWFsZTwvdGQ+PHRkIHN0 eEqrGNowVGGtoH4aSUXr K4t8ZgMhBrM0QMiw Y4MdACWepbckFb66lF0y LcVlUjW2JCstW5NyysR5 UYBifOOoAJsfVUQ5I60o a1D9RNPhHILmFSX7 zRL0bF2cnQbqebtsiDZh dDsgdmVydGljYWwtYWxp U684AIQkzTcyLiMyISWt CB6vqDegcOZ+PC90 ks09Q2HlNnomWtt7HENn AKI4nKT5zH5dNMIaWMui f1T2aZZ6L1SxlrFlss8t l7dkKBQjSLnlD52w qDFtc3U0LVFvnNB7OPTy sDknHpMrzF42Ugb+PGNv xGzyd9MyAoqqm5ncg8js qRu3BjGsRGRixrOd bCnoSQQ0c6FtGf05G93r IHdpZHRoPSIzMCUiIHZh eBgjli3orS6dJn2+PGNv dST9hYP5wI7cDjDp LbD7BJaiQ866QgFmfSAl Vbart5xrk0uvqAp3ZxHq RQTpmdChzBewTLN9l9Lj Uw67S3XlcGqyw2Ld Jck7zx09nYYdg3P1tQP8 I5ZtWZDsstqogOPpgGtp MN2oLDYlsjtnQXHyxN2l JGOeD8m2RrEfVpJ0 IGwzO2IwdxH0QVNdeDVf QFKvvNIKqH3vdsbxo2tl hhxqIgWnMQQoTUj7ZAe0 LWFsaWduOiBsZWZ0 HmT9FET4uHNraW6dyCis ayvsdR2aOmt+FQw3e6pr lTImDZ2usKI2WI75IV46 xZXmh1P5hPT9Y2Mh KTIcevieyvipeZV6IXFx SANtwO51Zf2jjKhtIa2f WPBlTLF3BWFqfSHiG0Ai zO9yHwJiUXMuPPDt X3JuiFFlYBogZ183OWpi JaU6EAYcglNtE7CvBDRw lJwxMvU8c3D1Pi0WSR45 EJ90DH61sDYar6E2 wCU2M4ErRYBwgyzsqohz cTX1TJPlLZPihZ54Cw7i tXxwHx0kNPVkBFE5HTKg rTJzC8OsmF5iPqRn GLTjQDGqN7UvoPCyKVnp Q375GHkrUpW9KTQlefEj W1RjUWOuyXjsCgF4j4L7 Od3GOh64OT46PC68 vGXcf7I7sDI4A4RkYVMz bvmqikdczZL6UUEzMNJt aG57Ug5sqIglDm3xVHIa MHH9GCLreQTuT6Ns lW9mUmDvIAYbGGVyD9Rr mEHxTGkoU860CGcmHcB1 DNLvzmGwZ6RaJCVwlZjb OaM5m5D2Rq6OVTsg exc9U8IbMblmzUQ+PC90 BTUjSW87oDPjiXYer1vj nMv3OkOfRWZxTAR8fPki BFfzh1XcDOXbT86c bGFw (more content not included)... Normal [facility] Consent for Treatmenton 08-22 Consent for Treatment [id number] #1.00CD:127 Normal [facility] Discharge Instructionson Discharge Instructions [id number] #1.00CD:127 Normal [facility] ED Clinical Summaryon 2021 ED Clinical Summary [place] [address] ED Clinical Summary Person Information [facility]: [facility] 26 Years : 1995 Sex: Female Language: Samoan PCP: Charli LOPEZ Marital Status: Single Visit [...] 09/03/2022 15:51:51 09/03/2022 15:51:51 09/03/2022 15:51:51 ADDRESS: [address] [place] [id number] [facility] DOC NOTES: MEDICAL INFORMATION: Prescriptions Given: New Medications [facility] [address], [address], [place] [id number], [phone] ondansetron (Zofran ODT 4 mg Tab-Dis) 1 Tablets By Mouth 3 times a day. Refills: 0. Medications to Continue with No Changes Other Medications multivitamin, ( Multivitamins with Vitamin B Complex, Vitamin C, Minerals and L-Methylfolate oral capsule) 1 Capsules By Mouth every day. Refills: 0. PATIENT EDUCATION INFORMATION: Instructions: Nausea and Vomiting, Adult Follow up: With: Address: When: [place] [address] Business (1) In 3 days 09/06/2022 DIAGNOSIS: Nausea & vomiting Normal [facility] ED Note-Physicianon 09-03-20 ED Note-Physician Basic [...] TID, # 15 tab(s), Refills(s) 0, Pharmacy: [facility], 170, cm, 09/03/22 14:31:00 EDT, Height/Length [...] CARLSON In 3 days 09/06/2022 EDT [address] [place] [address]- Business (1) Additional Instructions: Patient Education Nausea and Vomiting, Adult Attestation Patient seen and evaluated by the physician freezer assistant. Attending physician was present in the emergency department and supervised care. This visit was performed by both the physician and an APC. I performed all aspects of the MDM as documented. This report was transcribed using voice recognition software. Every effort was made to ensure accuracy, however, inadvertently computerized bung sewer mistakes may be present. Appropriate healthcare PPE [...] (09/03/22 14:49:0 (more content not included)... Normal [facility] Comment on above: Result Comment: Elec [...] added (diluted fruit juice). ? Eat bland, nkrm-ao-rywxte foods in small amounts as you are able. These foods include bananas, applesauce, rice, lean meats, toast, and crackers. ? Avoid fluids that contain a lot of sugar or caffeine, such as energy drinks, sports drinks, and soda. ? Avoid alcohol. ? Avoid spicy or fatty foods. General instructions ? Take lvay-nkc-gmihzvv and prescription medicines only as told by your health care provider. ? Drink enough fluid to keep your urine pale yellow. ? Wash your hands often using soap and water. If soap and water are not available, use hand woodworking machine feeder. ? Make sure that all people in [...] and drinking to prevent dehydration. ? Take tkyy-aog-mrdltfv and prescription medicines only as told by [...] Reviewed: 04/18/2019 Elsevier Patient Education ? 2019 [employer] Normal [facility] ED Patient Summaryon 132 022 ED Patient Summary [place] [address] Patient Discharge Instructions Person Information Name: MEENA READ Age: 26 Years Arrival Date: 09/03/2022 14:27:10 Discharge Diagnosis: Nausea & vomiting Primary Care Physician: Charli LOPEZ Provider Information Primary Provider: Evan Moyer DO Advanced Safety Professional:Neil Meza PA-C The exam and treatment you received in the Emergency Department were for an urgent problem and are not intended as complete care. It is important that you follow up with a doctor, nurse practitioner, or physician?s freezer assistant for ongoing care. If your symptoms [...] Follow-up Instructions: With: Address: When: Charli CARLSON [address] [place], [place] [id number] Business (1) In 3 days 09/06/2022 In the event that this physician does not participate in your insurance network, please consult with your insurance company to find a nearby participating provider. Patient Education Materials: Nausea and Vomiting, Adult A MESSAGE TO ALL PATIENTS REGARDING OPIOIDS PRESCRIPTION OPIOIDS: WHAT YOU NEED TO KNOW Prescription opioids can be used to help relieve hvphmfxy-ew-dwkpqz pain and are often prescribed following a [...] be struggling with addiction, tell your health director of critical care and ask for guidance or call SAMHSA?S National Helpline at 1-177-435-POOE. v Source: [place] Dep (more content not included)... [facility] 09-03-2022 HCG.beta subunit (U) [Moles/Vol] Negative Normal [facility] Comment on above: Performed By: #### 2 [id number], [id number], [id number] ####[facility] [address] [place] [address] UA With Cult Reflexon 2021 Bacteria LM Ql (Urine sed) 2+ /HPF Abnormal Trace [facility] Comment on above: Performed By: #### 2 [id number], [id number], [id number] ####[facility] [address] [place] [address] Bilirubin Ql (U) Negative Normal Negative [facility] Comment on above: Performed By: #### 2 [id number], [id number], [id number] ####[facility] [address] [place] [address] Clarity (U) CLEAR Normal Clear [facility] Comment on above: Performed By: #### 2 [id number], [id number], [id number] ####[facility] [address] [place] [address] Color (U) YELLOW Normal Yellow [facility] Comment on above: Performed By: #### 2 [id number], [id number], [id number] ####[facility] [address] [place] [address] Epithelial cells.squamous LM.HPF (Urine sed) [#/Area] 5-8 Normal 0-2 [facility] Comment on above: Performed By: #### 2 [id number], [id number], [id number] ####[facility] [address] [place] [address] Glucose Test strip (U) [Mass/Vol] Negative Normal Negative [facility] Comment on above: Performed By: #### 2 [id number], [id number], 3351209 ####[facility] [address] [place] [address] Hemoglobin Ql (U) Negative Normal Negative [facility] Comment on above: Performed By: #### 2 3786969, [id number], 8565579 ####[address] [address] Ketones (U) [Mass/Vol] Negative Normal Negative [facility] Comment on above: Performed By: #### 2 [id number], [id number], 2332743 ####[address] [address] [place].plasma/Lit hium.RBC (Bld) [Mass ratio] 0-3 Normal 0-3 [facility] Comment on above: Performed By: #### 2 5125580, [id number], 2593202 ####[address] [address] Mucus Ql (Urine sed) 1+ Normal [facility] Comment on above: Performed By: #### 2 [id number], 01126671, 6891007 ####[place] [address] Nitrite Ql (U) Negative Normal Negative [facility] Comment on above: Performed By: #### 2 [id number], 72066199, 2540031 ####[address] [address] pH (U) 5.5 [pH] Invalid Interpretation Code 5.0-9.0 [facility] Comment on above: Performed By: #### 2 [id number], [id number], 7782839 ####[address] [address] Protein (U) [Mass/Vol] Negative Normal Negative [facility] Comment on above: Performed By: #### 2 2395119, 89921001, 2458335 ####[address] [address] Specific gravity (U) [Rel density] >=1.030 Invalid Interpretation Code 1.005-1.030 [facility] Comment on above: Performed By: #### 2 [id number], [id number], 3929404 ####[address] [place] [address] Type of Urine collection method Clean Catch Normal [facility] Comment on above: Performed By: #### 2 [id number], [id number], 8031182 ####[facility] [address] [place] [address] Urobilinogen Qn (U) 0.2 {Elver'U}/dL Normal 0.0-1.0 [facility] Comment on above: Performed By: #### 2 [id number], [id number], 8464794 ####[facility] [address] [place] [address] WBC Auto Ql (U) Negative Normal Negative [facility] Comment on above: Performed By: #### 2 5191631, 94164977, 2424818 ####[facility] [address] [place] [address] WBC LM.HPF (Urine sed) [#/Area] 0-5 Normal 0-5 [facility] Comment on above: Performed By: #### 2 [id number], [id number], 1072300 ####[facility] [address] [place] [address] XR WRIST LEFT (MIN 3 VIEWS)o n [...] Anton Jr., MD 06/19/22 Final result Normal [facility] Normal left wrist. [facility] CONSOLIDATED EXAM: XR WRIST LEFT (MIN 3 VIEWS) HISTORY: M25.532. 26-year-old female, left wrist pain. COMPARISON: None. TECHNIQUE: Three views left wrist. FINDINGS: The radiocarpal joint and wrist are normal. Normal scapholunate distance. No erosion or chondrocalcinosis. [facility] RIS CONSOLIDATED Mauro Anton Jr., MD - 06/19/2022 EXAM: XR WRIST LEFT (MIN 3 VIEWS) HISTORY: M25.532. 26-year-old female, left wrist pain. COMPARISON: None. TECHNIQUE: Three views left wrist. FINDINGS: The radiocarpal joint and wrist are normal. Normal scapholunate distance. No erosion or chondrocalcinosis. IMPRESSION: Normal left wrist. 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 pain has been constant for about 1 week now. History of Present Illness Pt presents today to [facility] care. Previous pt of [facility] in [place]. Concerned today about left wrist pain which started about 1 yr ago; pain has worsened over the last week. 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 Carries everything in her left hand. Right handed. Pain location: medial martinez hand, radiating to wrist Pain description: shooting Pain rated: 2/10, 7/10 with certain movements. 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 Negative Tinels and DeQuervians. + Phalens. Internal Medicine Doctor strength equal. Neurologic: Cranial nerves II-XII grossly intact. Skin: [place], warm and dry. No rashes, ulcerations, or [...] day(s), # 30 tab(s), Refills(s) 1, Pharmacy: [facility], 170, cm, 06/01/22 12:55:00 EDT, Height/Length Dosing, 91.3, kg, 06/01/22 12:55:00 EDT, Weight Dosing [facility] External Ambulatory Referral 2. BMI 31.0-31.9,adult (Z68.31: Body mass index [BMI] 31.0-31.9, adult) The standard range for ages 18 and older is >=18.5 and < 25 kg/m2. Your BMI today was above this range, this falls in the obese category and there are medical benefits to weight loss. We can offer counselling, referral, and/or medical support in addressing this problem. Visit [employer] for useful information to help make better [...] unspecified fo (more content not included)... Normal [facility] Comment on above: Result Comment: Elec [...] height. This can be done either in Samoan (U.S[place] or metric measurements. Note that charts are available to help you find your BMI quickly and easily without having to do these calculations yourself. To calculate your BMI in Samoan ([place] measurements, your health care provider will: [...] problems. ? BMI can be measured using Samoan measurements or metric measurements. ? To interpret [...] 07/20/2005 Document Revised: 10/21/2018 Document Reviewed: 09/21/2018 [employer] Patient Education ? 2020 [employer]. Orthopedics Carpal Tunnel Syndrome Carpal tunnel syndrome [...] Having a job, such as being a computing services director or a snuff grinder, that requires you to repeatedly move your [...] and midd (more content not included)... Normal [facility] Physician Referralon 022 Physician Referral [id number] #1.00CD:127 Normal [facility] Vital Signs Date Time Vital Sign Value Performing Clinician Faci lity 01-10-2023 14:29-0500 Body height 165.1 cm Best Thorne MD Work Phone: [employer] 01-10-2023 14:29-0500 Body mass index (BMI) [Ratio] 34.35 kg/m2 Best Thorne MD Work Phone: [employer] 01-10-2023 14:29-0500 Body temperature 98.49 [degF] Best Thorne MD Work Phone: [employer] 01-10-2023 14:29-0500 Body weight 93.62 kg Best Thorne MD Work Phone: [employer] 01-10-2023 14:29-0500 Diastolic blood pressure 79 mm[Hg] Best Thorne MD Work Phone: [employer] 01-10-2023 14:29-0500 Heart rate 75 /min Best Thorne MD Work Phone: [employer] 01-10-2023 14:29-0500 Respiratory rate 16 /min Best Thorne MD Work Phone: [employer] 01-10-2023 14:29-0500 SaO2% (BldA) [Mass fraction] 99 % Best Thorne MD Work Phone: [employer] 01-10-2023 14:29-0500 Systolic blood pressure 140 mm[Hg] Best Thorne MD Work Phone: [employer] 12-08-2022 11:51-0500 Blood Pressure Location Keyon BROWN [facility] 12-08-2022 11:51-0500 Body temperature 98.24 [degF] Keyon BROWN [facility] 12-08-2022 11:51-0500 Diastolic blood pressure 78 mm[Hg] Keyon BROWN [facility] 12-08-2022 11:51-0500 Heart rate 84 /min Keyon BROWN [facility] 12-08-2022 11:51-0500 Respiratory rate 16 /min Keyon BROWN [facility] 12-08-2022 11:51-0500 SaO2% (BldA) [Mass fraction] 100 % Keyon BROWN [facility] 12-08-2022 11:51-0500 Systolic blood pressure 114 mm[Hg] Keyon BROWN [facility] 12-04-2022 16:32-0500 Body mass index (BMI) [Ratio] 33.66 kg/m2 Sha Ruelas MD Work Phone: [facility] [employer] 12-04-2022 16:32-0500 Body temperature 98.49 [degF] Sha Ruelas MD Work Phone: [facility] [employer] 12-04-2022 16:32-0500 Body weight 91.76 kg Sha Ruelas MD Work Phone: [facility] 12-04-2022 16:32-0500 Diastolic blood pressure 75 mm[Hg] Sha Ruelas MD Work Phone: [facility] [employer] 12-04-2022 16:32-0500 Heart rate 91 /min Sha Ruelas MD Work Phone: [facility] 12-04-2022 16:32-0500 Respiratory rate 16 /min Sha Ruelas MD Work Phone: [facility] 12-04-2022 16:32-0500 SaO2% (BldA) [Mass fraction] 99 % Sha Ruelas MD Work Phone: [facility] 12-04-2022 16:32-0500 Systolic blood pressure 123 mm[Hg] Sha Ruelas MD Work Phone: [facility] [employer] 06-01-2022 12:50-0400 Blood Pressure Location Meena Carl [facility] 06-01-2022 12:50-0400 Body temperature 96.98 [degF] Meena Aguilarell [facility] 06-01-2022 12:50-0400 Diastolic blood pressure 60 mm[Hg] Meena Aguilarell [facility] 06-01-2022 12:50-0400 Heart rate 88 /min Meena Aguilarell [facility] 06-01-2022 12:50-0400 SaO2% (BldA) [Mass fraction] 97 % Meenazachariah Aguilarell [facility] 06-01-2022 12:50-0400 Systolic blood pressure 122 mm[Hg] Meena Carl [facility] 09-14-2021 10:15-0400 Body mass index (BMI) [Ratio] 31.62 kg/m2 Keyon Wilkinson MD Work Phone: [employer] Work Phone: 09-14-2021 10:15-0400 Body weight 86.18 kg Keyon Wilkinson MD Work Phone: [employer] Work Phone: 09-14-2021 10:14-0400 Body height 165.1 cm Keyon Wilkinson MD Work Phone: [employer] Work Phone: 09-14-2021 10:14-0400 Body temperature 98.2 [degF] Keyon Wilkinson MD Work Phone: [employer] Work Phone: 09-14-2021 10:14-0400 Diastolic blood pressure 93 mm[Hg] Keyon Wilkinson MD Work Phone: [employer] Work Phone: 09-14-2021 10:14-0400 Heart rate 91 /min Keyon Wilkinson MD Work Phone: [employer] Work Phone: 09-14-2021 10:14-0400 Respiratory rate 20 /min Keyon Wilkinson MD Work Phone: [employer] Work Phone: 09-14-2021 10:14-0400 SaO2% (BldA) [Mass fraction] 96 % Keyon Wilkinson MD Work Phone: [employer] Work Phone: 09-14-2021 10:14-0400 Systolic blood pressure 131 mm[Hg] Keyon Wilkinson MD Work Phone: [employer] Work Phone: Encounters Encounter Date Encounter Type Care Provider Facility Start: 12-08-2023 End: 12-08-2023 ambulatory YULIA ESTES Not Available Start: 10-25-2023 End: 10-25-2023 ambulatory YULIA MEERA Not Available Start: 10-18-2023 End: 10-18-2023 ambulatory YULIA MEERA Not Available Start: 10-07-2023 End: 10-07-2023 ambulatory YULIA MEERA Not Available Start: 05-05-2023 End: 05-05-2023 [facility] Start: 04-09-[address] NONE LISTED REQUEST Facility: Start: 02-26-2023 ambulatory [facility] Start: 01-29-2023 End: 02-01-2023 ambulatory [facility] Start: 01-29-2023 End: 02-01-2023 ambulatory [facility] Start: 01-29-2023 End: 01-31-2023 Subsequent hospital visit by physician [facility] Additional Xray At [facility] Comment on above: Other closed fractur e of proximal end of right fibula with routine healing, subsequent encounter Start: 01-29-2023 End: 01-31-2023 Subsequent hospital visit by physician Keyon Brown MD Work Phone: [facility] Start: 01-10-2023 End: 01-10-2023 Emergency department [facility] Start: 01-10-2023 End: 01-10-2023 Emergency department patient visit Best Thorne MD Work Phone: [facility] ED Comment on above: Injury of right ankl e, initial encounter (Primary Dx) Start: 12-08-2022 End: 12-09-2022 ambulatory Keyon BROWN Facility:[facility] Start: 12-08-2022 End: 12-08-2022 Patient encounter procedure Keyon BROWN [facility] [place] Start: 12-04-2022 End: 12-04-2022 Emergency department [facility] Start: 12-04-2022 End: 12-04-2022 Emergency department patient visit Sha Ruelas MD Work Phone: [facility] ED Comment on above: Viral illness (Prima ry Dx) Start: 09-03-2022 End: 09-03-2022 Emergency department patient visit Evan Moyer Facility:[facility] Start: 06-19-2022 End: 06-22-2022 ambulatory [facility] Start: 06-19-2022 End: 06-21-2022 Subsequent hospital visit by physician [facility] Additional Xray At [facility] Comment on above: Left wrist pain Start: 06-01-2022 End: 06-02-2022 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 Meena Carl Facility:[facility] Start: 06-01-2022 End: 06-01-2022 Patient encounter procedure Meena Carl [facility] Start: 05-28-2022 ambulatory 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 Meena Carl Faci lity:[facility] Start: 09-14-2021 End: 09-14-2021 Emergency department patient visit Keyon Wilkinson MD Work Phone: [facility] ED Comment on above: Subacute bronchitis (Primary [...] 07-23-2022 Influenza vaccination Flu vaccine (# 1) [facility] Start: 06-22-2022 Influenza vaccination Flu vaccine (# 1) [facility] Start: 07-23-2021 Influenza vaccination Flu vaccine (# 1) [facility] Phone: Start: 08-02-2017 DTaP/Tdap/Td vaccine (2 - Td or Tdap) DTaP/Tdap/Td vaccine (2 - Td or Tdap) [facility] Start: 2015 Screening for malign ant neoplasm of cervix Pap smear [facility] Start: 2013 DTaP/Tdap/Td vaccine (1 - Tdap) DTaP/Tdap/Td vaccine (1 - Tdap) [facility] Phone: Start: 2012 Hepatitis C screening Hepatitis C sc reen [facility] Start: 2009 HIV screening HIV screen [facility] Start: 2006 COVID-19 Vaccine (1) COVID-19 Vaccin e (1) [facility] Phone: Start: 2006 Depression Screen Depression Screen [facility] Start: 2005 HPV vaccine (1 - 2-d ose series) HPV vaccine (1 - 2-dose series) [facility] Phone: Start: 1998 Varicella vaccine (2 of 2 - 2-dose childhood series) Varicella vaccine (2 of 2 - 2-dose childhood series) [facility] Start: 1995 Varicella vaccine (1 of 2 - 2-dose childhood series) Varicella vaccine (1 of 2 - 2-dose childhood series) [facility] Phone: Start: 05-30-1995 COVID-19 Vaccine (#1) COVID-19 Vacci ne (#1) [facility] Start: 1994 Hepatitis C screening Hepatitis C sc reen [facility] Work Phone: Immunizations Immunization Date Immunization Notes Care Provider Jaci masterson 02-16-2008 Hep A, unspecified formulation Meena Carl [facility] 08-02-2007 Hep A, unspecified formulation Meena Carl [facility] 08-02-2007 meningococcal ACWY vaccine, unspecified formulation Meena Carl [facility] 08-02-2007 tetanus toxoid, reduced diphtheria toxoid, and acellular pertussis vaccine, adsorbed Meena Carl [facility] 08-19-2000 DTaP, unspecified formulation [facility] [facility] 08-19-2000 measles, mumps and rubella virus vaccine Meena Carl [facility] 10-10-1997 varicella virus vaccine Meena Carl [facility] 03-09-1996 DTaP, unspecified formulation Meena Carl [facility] 03-09-1996 Hib, unspecified formulation Meena Carl [facility] 03-09-1996 measles, mumps and rubella virus vaccine Meena Aguilarell [facility] 06-11-1995 DTP-Hib Meena Carl [facility] 06-11-1995 hepatitis B vaccine, pediatric or pediatric/adolescent dosage Meena Aguilarell [facility] 04-05-1995 DTP-Hib Meena Carl [facility] 02-01-1995 DTP-Hib Meena Carl [facility] 01-04-1995 hepatitis B vaccine, pediatric or pediatric/adolescent dosage Meena Carl [facility] 1994 hepatitis B vaccine, pediatric or pediatric/adolescent dosage Meena Carl [facility] NEGATED: Highlighted row has not occurred!12-08-2022 influenza virus vaccine, unspecified formulation Cordellroin KEVIN [facility] [place] NEGATED: Highlighted row has not occurred!12-08-2022 SARS-CoV-2 mRNA (tozinameran 5y-11y) vaccine Cordellsheriesarah BROWN [facility] [place] Payers Date Payer Category Payer Unknown [id number] 1994 Unknown [id number] 2.16.8 [id number] 1994 Unknown [id number] 2.16.8 40.1.419898.3.579.2.727 1994 Unknown [id number] 2.16.8 40.1.547270.3.579.2.727 1994 Unknown [id number] 2.16.8 40.1.151639.3.579.2.727 1994 Unknown [id number] 2.16.84 0.1.823601.3.579.2.593 1994 Unknown [id number] 2.16.8 40.1.825212.3.579.2.174 1994 Unknown [id number] 2.16.8 40.1.648582.3.579.2.174 1994 Unknown [id number] 2.16.8 40.1.068588.3.579.2.174 1994 Unknown [id number] 2.16.8 40.1.413355.3.579.2.174 1994 Unknown [id number] 2.16.8 40.1.591924.3.579.2.174 1994 Unknown [id number] 2.16.8 40.1.553400.3.579.2.174 1994 Unknown [id number] 2.16.8 40.1.631824.3.579.2.174 1994 Unknown [id number] 2.16.8 40.1.606809.3.579.2.174 1994 Unknown [id number] 2.16.84 0.1.376014.3.579.2.1259 1994 Unknown [id number] 2.16.840 .1.832314.3.579.2.1259 1994 Unknown [id number] 2.16.840 .1.146119.3.579.2.1259 1994 Unknown [id number] 2.16.840 .1.003336.3.579.2.1259 1959 Unknown [id number] 1. [id number] Social History Date Type Detail Facility Start: 05-31-2018 End: 09-14-2021 Tobacco smoking status NHIS Never smoker [facility] Phone: Start: 05-31-2018 End: 09-14-2021 Tobacco use and exposure Never used [facility] Start: 09-14-2021 End: 01-10-2023 Alcohol intake Current non-drinker of alcohol (finding) [facility] Work Phone: Start: 1995 Sex Assigned At Not on file M [facility] Phone: Start: 11-24-2022 End: 01-10-2023 Exposure to SARS-CoV-2 (event) Not sure [facility] Tobacco smoking status Never [facility] Sex Assigned At Female [facility] Start: 12-04-2022 End: 01-10-2023 History SDOH Alcohol Frequency 1 [facility] Phone: Functional Status Date Assessment Result Facility 12-08-2022 Functional Status N/A [facility] [place] 06-01-2022 Functional Status N/A [facility] Clinical Notes 06-01-2022 to 01-10-2023 [...] cannot be sent through Care Everywhere.Ankle Sprain (Samoan)documented in this encounter [facility] Phone: 12-08-2022 [facility] Discharg e instructions Patient Education 12/08/2022 09:52:19 [...] than 2 years old. Live in a residential. Travel on cruise ships. What are the [...] and water are not available, use hand woodworking machine feeder. Make sure that all people in your household wash their hands well and often. Take zytk-zck-tyltqcp and prescription medicines only as told by [...] and water are not available, use hand woodworking machine feeder. This information is not intended to replace advice given to you by your health care provider. Make sure you discuss any questions you have with your health care provider. Document Released: 11/08/2006 Document Revised: 04/26/2020 Document Reviewed: 09/13/2019 [employer] Patient Education 2020 [employer]. Follow Up Care 12/08/2022 09:17:52 With:Keyon BROWN MD, FAM Address: When: only if needed [facility] [place] 12-04-2022 [facility] Discharg e instructions Sha Ruelas MD - 12/04/2022 4:33 PM EST Increase fluids at home. Take Zofran for any nausea. Try Imodium/loperamide for diarrhea. Call primary care doctor for close follow-up. Use Tylenol or Motrin to keep fever down. The following attachments cannot be sent through Care Everywhere.Viral Infections (Samoan)documented in this encounter [facility] Work Phone: 06-01-2022 Hospital Discharg e instructions [...] height. This can be done either in Samoan ([place] or metric measurements. Note that charts are available to help you find your BMI quickly and easily without having to do these calculations yourself. To calculate your BMI in Samoan ([place] measurements, your health care provider will: [...] medical problems. BMI can be measured using Samoan measurements or metric measurements. To interpret your [...] 07/20/2005 Document Revised: 10/21/2018 Document Reviewed: 09/21/2018 [employer] Patient Education 2020 [employer]. 06/01/2022 13:15:39 Carpal Tunnel Syndrome Carpal Tunnel [...] Having a job, such as being a computing services director or a snuff grinder, that requires you to repeatedly move your [...] 3 times per day. General instructions Take hdxa-gwk-tcipkle and prescription medicines only as told by [...] 11/05/2001 Document Revised: 03/17/2019 Document Reviewed: 03/17/2019 [employer] Patient Education 2020 [employer]. Follow Up Care 05/28/2022 08:22:05 With:Meena Carl CNP Address: When: only if needed [facility] Evaluation + Plan note [facility] Evaluation note Diagnosis Subacute bronchitis- Primary Acute bronchitis [facility]: evaluation note* Diagnosis Left wrist pain Pain in joint, forearm documented in this encounter [facility] [employer] Phone: evalewnsoq note* Diagnosis Viral illness- Primary Unspecified viral infection, in conditions classified elsewhere and of unspecified site documented in this encounter [facility] [employer] Phone: evalkxjglt note* Diagnosis Injury of right ankle, initial encounter- Primary documented in this encounter [facility] [employer] Phone: evallgafqj note* Diagnosis Other closed fracture of proximal end of right fibula with routine healing, subsequent encounter [facility] Narrative No data available for this section [facility] Hospital Discharge instructions* Attachments The following attachments cannot be sent through Care Everywhere. 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 Summary Purpose Family History No Family History [...] Care Team (unrecognized sect ion and content) Timber Robber Relationship Specialty Start Date End Date Keyon Brown MD [address] [place] [address] [place] [address] PCP - General Family Medicine 12/04/22 Timber Robber Relationship Specialty Start Date End Date Keyon Brown MD [address] [place] [address] [place] [address] PCP - General Family Medicine 12/04/22 Timber Robber Relationship Specialty Start Date End Date Keyon Brown MD [address] [place] [address] [place] [address] PCP - General Family Medicine 12/04/22 INFORMATION SOURCE (unrecogn ized section and content) DATE CREATED AUTHOR 02/01/2023 Papito Monge [facility] DATE CREATED AUTHOR AUTHOR'S ORGANIZ ATION 04/01/2023 J[facility] DATE CREATED AUTHOR AUTHOR'S ORGANIZ ATION 05/06/2023 Kirsty Meza spital DATE CREATED AUTHOR AUTHOR'S ORGANIZ ATION 12/09/2023 [facility] Specialists [facility] FOR RECORDS PERTAINING TO PATIENTS WHO ARE [...] BE BASED ON THE PRIMARY CLINICAL RECORDS. [employer] [facility]. provides no warranty or guarantee of the accuracy or completeness of information in this document.
[2024-02-03 12:42] LABS: HCG Quantitative 68 mIU/mL
[2024-02-05 13:28] LABS: HCG Quantitative 245 mIU/mL
== END 2024-02-21 08:45 | disposition home or self-care (01) ==
LOC: LAB 11:35
PROVIDERS: Visit Provider Obstetrics & Gynecology
DX: N92.6 Irregular menstruation, unspecified (principal)
CPT/HCPCS: 36415; 84702

== ENCOUNTER 2024-03-02 08:24 | Emergency (ER) | payer OTHER, SELFPAY ==
[2024-03-02 08:30] VITALS: BP 137/74; PULSE 75; TEMP 36.7; O2SAT 99; BMI 34.1
--- NOTE | 2024-03-02 08:41 | US_ITS ---
The [address] [address] Patient Name: RUEL READ MRN: [id number] date: 1995 Sex: F Assigned Patient Location: ER Current Patient Location: ER Accession/Order Number: [id number] Exam Date: 03/02/2024 09:50 Report Date: 03/02/2024 10:49 At the request of: SHARON MONAHAN Procedure: US OB transvaginal EXAMINATION: US OB transvaginal HISTORY: /bleed COMPARISON: No relevant comparison available. FINDINGS: GESTATIONAL SAC: Present and normal appearing. YOLK SAC: Present and normal appearing. POLE: Present and normal appearing. CARDIAC: Present. UTERUS: Normal size and appearance. OVARIES: Right: Normal. Left: Normal. CERVIX: 3.5 cm in length and closed. CUL-DE-SAC: Normal. OTHER: None. AGE BY LMP: Unknown LMP SHADY BY LMP: AGE BY US CRL: 6 weeks 1 day SHADY BY US CRL: 10/25/2024 US/US OB transvaginal IMPRESSION: 1. Single live intrauterine . 2. No findings to suggest impending . Electronically authenticated by: ALIS ECKERT Date: 03/02/2024 10:49
[2024-03-02 08:58] LABS: Basophils Percent Auto 0.6 % (0.2-2.0); Eosinophils Absolute Auto 0.1 10^3/uL (0.0-0.7); Eosinophils Percent Auto 1.8 % (0.9-7.0); Hematocrit 37.9 % (36.0-48.0); Hemoglobin 12.3 g/dL (12.0-16.0); Immature Granulocytes Abs Auto 0.01 10^3/uL (0.00-0.03); Immature Granulocytes Pct Auto 0.2 % (0.0-0.5); Lymphocytes Absolute Auto 1.3 10^3/uL (1.2-3.8); Lymphocytes Percent Auto 26.2 % (20.5-60.0); Mean Corpuscular HGB Conc 32.5 g/dL (29.9-35.2); Mean Corpuscular Hemoglobin 27.4 pg (26.7-34.0); Mean Corpuscular Volume 84.4 fL (81.0-99.0); Mean Platelet Volume 10.8 fL (9.5-13.5); Monocytes Absolute Auto 0.3 10^3/uL (0.3-0.8); Monocytes Percent Auto 6.7 % (1.7-12.0); Neutrophils Absolute Auto 3.2 10^3/uL (1.4-6.5); Neutrophils Percent Auto 64.5 % (43.0-75.0); Platelet Count 168 10^3/uL (150-450); Red Blood Count 4.49 10^6/uL (4.20-5.40); Red Cell Distribution Width 13.6 % (11.0-15.0); White Blood Count 4.9 10^3/uL (4.0-11.0)
[2024-03-02 09:38] LABS: HCG Quantitative 18806 mIU/mL
--- NOTE | 2024-03-02 09:44 | ED.ABDPAIN1 ---
HPI - Abdominal Pain General Chief Complaint: Abdominal Pain Stated Complaint: ABDOMINAL PAIN Time Seen by Provider: 03/02/24 08:39 Source: patient Mode of arrival: walk-in History of Present Illness HPI narrative: This patient is here for abdominal cramping and a little bit of vaginal bleeding. She is , she has seen her PRODUCT APPLICATIONS ENGINEER and early in her she had serial quantitative hCGs done to make sure that they were doubling. She indicates that that test was normal. She is estimated to be about 6 weeks at this time. She has not had nausea vomiting and diarrhea she has not had a fever. She is not on any antibiotics. She has a 4-month-old baby. She never really had a period after her last . Related Data Home Medications ?Medication ?Instructions ?Recorded ?Confirmed rkkrcktyxonyewv-gisyntrhlpurmrp-HV 5 ml PO Q6H PRN cold symptoms 10/25/23 10/25/23 2 mg-30 mg-10 mg/5 mL oral syrup ondansetron HCl 4 mg tablet 4 mg PO Q6H 10/25/23 10/25/23 vits,calcium 21-iron fum 1 tab PO DAILY 10/25/23 10/25/23 14 mg iron-folic acid 400 mcg tablet ( Complete) Allergies Allergy/AdvReac Type Severity Reaction Status Date / Time codeine Allergy Chest Pain Verified 10/25/23 09:57 hydrocodone [From Vicodin] Allergy Rash Verified 10/25/23 09:57 oxycodone [From Percocet] Allergy Rash Verified 10/25/23 09:57 Exam Narrative Exam Narrative: This patient is awake alert very pleasant peers and noted. Vital signs are stable. She is holding her 4-month-old baby. Vital her stay: She does not appear pale or anemic. There is no clamminess or pallor. She has no respiratory distress or congestion. Describes minor abdominal cramping. Constitutional Vital Signs, click to edit/add: Last Vital Signs Temp 98.1 F 03/02/24 08:30 Pulse 72 03/02/24 11:03 Resp 18 03/02/24 11:03 BP 128/78 03/02/24 11:03 Pulse Ox 98 03/02/24 11:03 Course Vital Signs Vital signs: Vital Signs Temperature 98.1 F 03/02/24 08:30 Pulse Rate 75 03/02/24 08:30 Respiratory Rate 18 03/02/24 08:30 Blood Pressure 137/74 03/02/24 08:30 Pulse Oximetry 99 03/02/24 08:30 Temperature 98.1 F 03/02/24 08:30 Pulse Rate 72 03/02/24 11:03 Respiratory Rate 18 03/02/24 11:03 Blood Pressure 128/78 03/02/24 11:03 Pulse Oximetry 98 03/02/24 11:03 MDM - Abdominal Pain MDM Narrative Medical decision making narrative: Patient's quantitative hCG is more remarkably elevated. A ultrasound was done and is confirmatory for a live intrauterine gestation at 6 weeks. At this stage she is not having heavy bleeding or severe cramping. She is to continue present course of management and follow-up with her PRODUCT APPLICATIONS ENGINEER Lab Data Labs: Lab Results 03/02/24 Range/Units 08:45 WBC 4.9 (4.0-11.0) 10^3/uL RBC 4.49 (4.20-5.40) 10^6/uL Hgb 12.3 (12.0-16.0) g/dL Hct 37.9 (36.0-48.0) % MCV 84.4 (81.0-99.0) fL MCH 27.4 (26.7-34.0) pg MCHC 32.5 (29.9-35.2) g/dL RDW 13.6 (11.0-15.0) % Plt Count 168 (150-450) 10^3/uL MPV 10.8 (9.5-13.5) fL Neut % (Auto) 64.5 (43.0-75.0) % Lymph % (Auto) 26.2 (20.5-60.0) % Vance % (Auto) 6.7 (1.7-12.0) % Eos % (Auto) 1.8 (0.9-7.0) % Baso % (Auto) 0.6 (0.2-2.0) % Neut # (Auto) 3.2 (1.4-6.5) 10^3/uL Lymph # (Auto) 1.3 (1.2-3.8) 10^3/uL Vance # (Auto) 0.3 (0.3-0.8) 10^3/uL Eos # (Auto) 0.1 (0.0-0.7) 10^3/uL Baso # (Auto) 0.0 (0.0-0.1) 10^3/uL Abs Immat Gran (auto) 0.01 (0.00-0.03) 10^3/uL Imm/Tot Granulo (auto) 0.2 (0.0-0.5) % HCG, Quant 35589 mIU/mL Blood Type A Negative Discharge Plan Discharge Stand Alone Forms: Portal Instructions Chief Complaint: Abdominal Pain Clinical Impression: Intrauterine Patient Disposition: Home, Self-Care Time of Disposition Decision: 11:07 Prescriptions / Home Meds: No Action Complete 14 mg iron- 400 mcg tablet 1 tab PO DAILY ondansetron HCl 4 mg tablet 4 mg PO Q6H jqntbqerqkcijkx-xwebbsfkm-ZM 2-30-10 mg/5 mL syrup 5 ml PO Q6H PRN (Reason: cold symptoms) Print Language: Azeri Additional Instructions: Follow-up with primary care doctor Referrals: Physician,Non-Staff, [Primary Care Provider] - 1 week
[2024-03-02 11:03] VITALS: BP 128/78; PULSE 72; O2SAT 98
== END 2024-03-02 11:24 | disposition home or self-care (01) ==
PROVIDERS: Emergency Provider Emergency Medicine Emergency Medical Services
DX: O26.891 Other specified pregnancy related conditions, first trimester (principal); R10.9 Unspecified abdominal pain; Z3A.01 Less than 8 weeks gestation of pregnancy; Z79.899 Other long term (current) drug therapy
CPT/HCPCS: 36415; 76817; 84702; 85025; 86900; 86901; 99284

== ENCOUNTER 2024-03-04 10:31 | Outpatient (OUT) | payer OTHER, SELFPAY ==
--- OUTSIDE RECORDS SUMMARY | 2024-03-04 10:34 | XMS_ITS | CCD ---
Author Organization [facility] Care Team Providers Care Realtime Court Reporter Name Role Phone Unavailable Primary Care Provider UnavailCharli Browne Primary Care Physician Kevin BENAVIDEZ, Keyon Brandon Primary Care Provider 1( [phone] ANTHONY Carl Attending UnavailKeyon Lockett Unavailable Evan Moyer Attending Unavailable LISHA, DR DRUMMOND LISTED Consulting Unavailronald [facility], DR NICOLE Primary Care Unavailable MEERA ., [...] Referring Unavailable KEYON BROWN Primary Care Unavailable KEOYN BROWN Primary Care Unavailable ISRAEL BILLS Referring Unavailable YULIA ESTES Attending Unavailable YULIA ESTES Attending Unavailable YULIA ESTES Attending Unavailable YULIA ESTES Attending Unavailable Allergies Allergy Classification Reported Allergen(s) Allergy Type Date of Onset Reaction(s) Facility (6 sources) Acetaminophen / HYDROcodone Drug Allergy 7 Rash [facility] (6 sources) Acetaminophen / oxyCODONE Drug Allergy 6 Rash [facility] (9 sources) Codeine; Translations: [codeine] Drug Allergy 7 Rash, Cutaneous eruption (morphologic abnormality) [facility] (3 sources) Acetaminophen / HYDROcodone; Translations: [acetaminophen-hy drocodone] Drug Allergy [facility] (3 sources) Acetaminophen / oxyCODONE; Translations: [acetaminophen-ox ycodone] Drug Allergy Cutaneous eruption (morphologic abnormality) [facility] (1 source) Acetaminophen / HYDROcodone Drug Allergy [facility] (1 source) Acetaminophen / oxyCODONE Drug Allergy [facility] (1 source) Codeine Drug Allergy [facility] Medications Current Medications Medication Drug Class(es) [...] extended release oral tablet (6 sources) Uncompetitive U-lhhotb-E-aspartate Receptor Antagonist, Sigma-1 Agonist Start: 09-14-2021 take 1 tablet by mouth every twelve hours as needed for cough Dextromethorphan- guaiFENesin 60-1200 MG TB12 Take 1 tablet by mouth every 12 hours as needed (COUGH CONGESTION) 28 tablet 0 09/14/2021 Active dextromethorphan hydrobromide 3 mg/ml / promethazine hydrochloride 1.25 mg/ml oral solution (6 sources) Phenothiazine, Uncompetitive G-loqoih-V-aspartate Receptor Antagonist, Sigma-1 Agonist Start: 05-31-2018 promethazine-dext [...] day(s), # 30 tab(s), Refills(s) 1, Pharmacy: [facility], 170, cm, 06/01/22 12:55:00 EDT, Height/Length [...] TID, # 15 tab(s), Refills(s) 0, Pharmacy: [facility], 170, cm, 09/03/22 14:31:00 EDT, Height/Length [...] 05-05-2023 Abs. Basophil 0.00 k/uL Normal 0.0-0.2 [facility] Comment on above: Performed By: #### C DP, CP #### [facility] [address] [place] [address] Pilot Teacher: Armen Madrigal MD Abs.Neutrophil (Seg) 5.30 k/uL Normal 2.5-7.0 [facility] Comment on above: Performed By: #### C DP, CP #### [facility] [address] [facility] [place] [address] Pilot Teacher: Armen Madrigal MD Auto Diff Performed YES Normal [facility] Comment on above: Performed By: #### C DP, CP #### [facility] [address] [facility] [place] [address] Pilot Teacher: Armen Madrigal MD Basophils/100 WBC (Bld) 1 % Normal 0-2 [facility] Comment on above: Performed By: #### C DP, CP #### [facility] [address] [place] [address] Pilot Teacher: Armen Madrigal MD Eosinophils (Bld) [#/Vol] 0.00 10*3/uL Normal 0.0-0.4 [facility] Comment on above: Performed By: #### C DP, CP #### [facility] [address] [place] [id number] Pilot Teacher: Armen Madrigal MD Eosinophils/100 WBC (Bld) 1 % Normal 0-5 [facility] Comment on above: Performed By: #### C DP, CP #### [facility] [address] [place] [id number] Pilot Teacher: Armen Madrigal MD Erythrocyte distribution width (RBC) [Ratio] 13.8 % Normal 12.1-15.2 [facility] Comment on above: Performed By: #### C DP, CP #### [facility] [address] [place] [id number] Pilot Teacher: Armen Madrigal MD Hematocrit (Bld) [Volume fraction] 34.4 % Low 36-46 [facility] Comment on above: Performed By: #### C DP, CP #### [facility] [address] [place] [id number] Pilot Teacher: Armen Madrigal MD Hemoglobin (Bld) [Mass/Vol] 11.9 g/dL Low 12.0-16.0 [facility] Comment on above: Performed By: #### C DP, CP #### [facility] [address] [place] [address] Pilot Teacher: Armen Madrigal MD Lymphocytes (Bld) [#/Vol] 1.90 10*3/uL Normal 1.0-4.8 [facility] Comment on above: Performed By: #### C DP, CP #### [facility] [address] [place] [address] Pilot Teacher: Armen Madrigal MD Lymphocytes/100 WBC (Bld) 25 % Normal 15-40 [facility] Comment on above: Performed By: #### C DP, CP #### [facility] [address] [place] [address] Pilot Teacher: Armen Madrigal MD MCH (RBC) [Entitic mass] 29.3 pg Normal 26-34 [facility] Comment on above: Performed By: #### C DP, CP #### [facility] [address] [place] [address] Pilot Teacher: Armen Madrigal MD MCHC (RBC) [Mass/Vol] 34.6 g/dL Normal 31-37 [facility] Comment on above: Performed By: #### C DP, CP #### [facility] [address] [place] [address] Pilot Teacher: Armen Madrigal MD MCV (RBC) [Entitic vol] 84.8 fL Normal 80-100 [facility] Comment on above: Performed By: #### C DP, CP #### [facility] [address] [place] [address] Pilot Teacher: Armen Madrigal MD Monocytes (Bld) [#/Vol] 0.50 10*3/uL Normal 0.0-1.0 [facility] Comment on above: Performed By: #### C DP, CP #### [facility] [address] [place] [address] Pilot Teacher: Armen Madrigal MD Monocytes/100 WBC (Bld) 6 % Normal 4-8 [facility] Comment on above: Performed By: #### C DP, CP #### [facility] [address] [place] [address] Pilot Teacher: Armen Madrigal MD Neutrophil (Seg) 67 % Normal 47-75 [facility] Comment on above: Performed By: #### C DP, CP #### [facility] [address] [place], [place] [phone] Pilot Teacher: Armen Madrigal MD Platelets (Bld) [#/Vol] 191 10*3/uL Normal 140-450 [facility] Comment on above: Performed By: #### C DP, CP #### [facility] [address] [place], [place] [phone] Pilot Teacher: Armen Madrigal MD RBC (Bld) [#/Vol] 4.06 10*6/uL Normal 4.0-5.2 [facility] Comment on above: Performed By: #### C DP, CP #### [facility] [address] [place] [address] Pilot Teacher: Armen Madrigal MD WBC (Bld) [#/Vol] 7.7 10*3/uL Normal 3.5-11.0 [facility] Comment on above: Performed By: #### C DP, CP #### [facility] [address] [place] [address] Pilot Teacher: Armen Madrigal MD Comp Metabolic Profon 2022 Albumin [Mass/Vol] 3.4 g/dL Low 3.5-5.2 [facility] Comment on above: Performed By: #### C DP, CP #### [facility] [address] [place] [address] Pilot Teacher: Armen Madirgal MD Alkaline Phos 44 U/L Normal 35-104 [facility] Comment on above: Performed By: #### C DP, CP #### [facility] [address] [place] [address] Pilot Teacher: Armen Madrigal MD ALT [Catalytic activity/Vol] 5 U/L Normal 5-33 [facility] Comment on above: Performed By: #### C DP, CP #### [facility] [address] [place], [place] [id number] Pilot Teacher: Armen Madrigal MD Anion gap [Moles/Vol] 11 mmol/L Normal 9-17 [facility] Comment on above: Performed By: #### C DP, CP #### [facility] [address] [place], [place] [id number] Pilot Teacher: Armen Madrigal MD AST [Catalytic activity/Vol] 9 U/L Normal <32 [facility] Comment on above: Performed By: #### C DP, CP #### [facility] [address] [place], [place] [id number] Pilot Teacher: Armen Madrigal MD Bilirubin [Mass/Vol] 0.2 mg/dL Low 0.3-1.2 [facility] Comment on above: Performed By: #### C DP, CP #### [facility] [address] [place], [place] [id number] Pilot Teacher: Armen Madrigal MD BUN/CRE Ratio 22 High 9-20 [facility] Comment on above: Performed By: #### C DP, CP #### [facility] [address] [place], [place] [phone] Pilot Teacher: Armen Madrigal MD Calcium [Mass/Vol] 8.8 mg/dL Normal 8.6-10.4 [facility] Comment on above: Performed By: #### C DP, CP #### [facility] [address] [place], [place] [phone] Pilot Teacher: Armen Madrigal MD Chloride [Moles/Vol] 104 mmol/L Normal 98-107 [facility] Comment on above: Performed By: #### C DP, CP #### [facility] [address] [place] [address] Pilot Teacher: Armen Madrigal MD CO2 [Moles/Vol] 19 mmol/L Low 20-31 [facility] Comment on above: Performed By: #### C DP, CP #### [facility] [address] [place], [place] [id number] Pilot Teacher: Armen Madrigal MD Creatinine [Mass/Vol] 0.55 mg/dL Normal 0.50-0.90 [facility] Comment on above: Performed By: #### C DP, CP #### [facility] [address] [place] [address] Pilot Teacher: Armen Madrigal MD GFR/1.73 sq M.predicted among non-blacks MDRD (S/P/Bld) [Vol rate/Area] mL/min/{1.73_m2} Normal >60 [facility] Comment on above: Result Comment: These [...] Performed By: #### C DP, CP #### [facility] [address] [place] [address] Pilot Teacher: Armen Madrigal MD Glucose [Mass/Vol] 86 mg/dL Normal 70-99 [facility] Comment on above: Performed By: #### C DP, CP #### [facility] [address] [place] [address] Pilot Teacher: Armen Madrigal MD Potassium [Moles/Vol] 3.8 mmol/L Normal 3.7-5.3 [facility] Comment on above: Performed By: #### C DP, CP #### [facility] [address] [place] [address] Pilot Teacher: Armen Madrigal MD Protein [Mass/Vol] 6.0 g/dL Low 6.4-8.3 [facility] Comment on above: Performed By: #### C DP, CP #### [facility] [address] [place], [place] [id number] Pilot Teacher: Armen Madrigal MD Sodium [Moles/Vol] 134 mmol/L Low 135-144 [facility] Comment on above: Performed By: #### C DP, CP #### [facility] [address] [place] [address] Pilot Teacher: Armen Madrigal MD Urea nitrogen [Mass/Vol] 12 mg/dL Normal 6-20 [facility] Comment on above: Performed By: #### C DP, CP #### [facility] [address] [place], [place] [phone] Pilot Teacher: Armen Madrigal MD Urinalysis, Routineon 2022 Bilirubin, SemiQt,Ur Negative Normal NEG [facility] Comment on above: Performed By: #### U A #### [facility] [address] [place], [place] [id number] Pilot Teacher: Armen Madrigal MD Blood, Urine Negative Normal NEG [facility] Comment on above: Performed By: #### U A #### [facility] [address] [place] [address] Pilot Teacher: Armen Madrigal MD Clarity (U) Clear Normal CLEAR [facility] Comment on above: Performed By: #### U A #### [facility] [address] [place], [place] [id number] Pilot Teacher: Armen Madrigal MD Color (U) Yellow Normal YEL [facility] Comment on above: Performed By: #### U A #### [facility] [address] [place], [place] [id number] Pilot Teacher: Armen Mardigal MD Comment Normal [facility] Comment on above: Performed By: #### U A #### [facility] [address] [place], [place] [id number] Pilot Teacher: Armen Madrigal MD Glucose Ql (U) Negative Normal NEG [facility] Comment on above: Performed By: #### U A #### [facility] [address] [place], [place] [id number] Pilot Teacher: Armen Madrigal MD Ketones Ql (U) TRACE Abnormal NEG [facility] Comment on above: Performed By: #### U A #### [facility] [address] [place] [address] Pilot Teacher: Armen Madrigal MD Leukocyte esterase Test strip Ql (U) Negative Normal NEG [facility] Comment on above: Performed By: #### U A #### [facility] [address] [place], [place] [id number] Pilot Teacher: Armen Madrigal MD Nitrite,Ur Negative Normal NEG [facility] Comment on above: Performed By: #### U A #### [facility] [address] [place], [place] [id number] Pilot Teacher: Armen Madrigal MD PH,Ur 6.0 Normal 5.0-8.0 [facility] Comment on above: Performed By: #### U A #### [facility] [address] [place], [place] [address] Pilot Teacher: Armen Madrigal MD Protein Ql (U) Negative Normal NEG [facility] Comment on above: Performed By: #### U A #### [facility] [address] [place], [place] [id number] Pilot Teacher: Armen Madrigal MD Spec. [place],Ur 1.025 Normal 1.005-1.030 [facility] Comment on above: Performed By: #### U A #### [facility] [address] [place] [address] Pilot Teacher: Armen Madrigal MD Urobilinogen,Ur Normal Normal NORM [facility] Comment on above: Performed By: #### U A #### [facility] [address] [place] [address] Pilot Teacher: Armen Madrigal MD RAD - MISCon 02-01-2023 RAD - MISC [id number] #1.00CD:127 Normal [facility] XR ANKLE RIGHT (MIN 3 VIEWS) on [...] Anton Jr., MD 01/29/23 Final result Normal [facility] FINDINGS/IMPRESSION: 1. Compression fracture tip of the fibula no longer separately seen. 2. Anatomic alignment throughout. 3. Soft tissue swelling has resolved. [facility] EXAM: XR ANKLE RIGHT (MIN 3 VIEWS). HISTORY: Other closed fracture of proximal end of right fibula with routine healing, subsequent encounter. COMPARISON: 01/10/2023. [facility] Mauro Anton Jr., MD - 01/29/2023 EXAM: XR ANKLE RIGHT (MIN 3 VIEWS). HISTORY: Other closed fracture of proximal end of right fibula with routine healing, subsequent encounter. COMPARISON: 01/10/2023. IMPRESSION: FINDINGS/IMPRESSION: 1. Compression fracture tip of the fibula no longer separately seen. 2. Anatomic alignment throughout. 3. Soft tissue swelling has resolved. [employer] Phone: Radiology Study observation (narrative) [employer] Phone: XR ANKLE RIGHT (MIN 3 VIEWS) Ordered By: Mauro Anton on 01-29-2023 [facility] [employer] Phone: RAD - MISCon 01-11-2023 RAD - MIS [id number] #1.00CD:127 Normal [facility] XR ANKLE RIGHT (MIN 3 VIEWS) on [...] João Amezquita MD 01/10/23 Final result Normal [facility] FINDINGS/IMPRESSION: 1. Very small nondisplaced incomplete fracture is questioned in the distal tip of the right fibula, with mild surrounding soft tissue swelling. 2. No other fracture, malalignment, significant arthritis or acute bony abnormality is seen. [facility] CLINICAL HISTORY: Right ankle pain and swelling since an injury yesterday. RIGHT ANKLE 3 VIEWS: [facility] João Amezquita MD - 01/10/2023 CLINICAL HISTORY: Right ankle pain and swelling since an injury yesterday. RIGHT ANKLE 3 VIEWS: IMPRESSION: FINDINGS/IMPRESSION: 1. Very small nondisplaced incomplete fracture is questioned in the distal tip of the right fibula, with mild surrounding soft tissue swelling. 2. No other fracture, malalignment, significant arthritis or acute bony abnormality is seen. [employer] Phone: Radiology Study observation (narrative) [employer] Phone: XR ANKLE RIGHT (MIN 3 VIEWS) Ordered By: João Amezquita on 01-10-2023 [employer] Phone: Ambulatory Visit Summaryon 0 12-08-2022 Ambulatory Visit Summary MEENA READ :1995 Visit Date:12/08/2022 Ambulatory Visit Instructions Your Diagnosis Gastroenteritis due to Higdon-like virus Obesity due to excess calories BMI [...] to 60 minutes before meals Pickup at [facility] Unchanged multivitamin, ( Multivitamins with Vitamin B Complex, Vitamin C, Minerals and L-Methylfolate oral capsule) 1 Capsules By Mouth Every day Contact prescribing physician if questions or concerns Unchanged ondansetron (Zofran ODT 4 mg Tab-Dis) 1 Tablets By Mouth 3 times a day Contact prescribing physician if questions or concerns Pharmacy Information [facility]: [address], [place] [id number] [phone] Medications and Immunizations Administered Not Given influenza virus vaccine, inactivated, Postpone due to refusal SARS-CoV-2 mRNA (tozinameran 5y-11y) vac, Postpone due to refusal Allergies Percocet 5/325 (Hives, Rash) Vicodin (Hives) codeine (Hives, Rash) Problems Ongoing - Any problem that you are currently receiving treatment for. BMI 31.0-31.9,adult Gastroenteritis due to Higdon-like virus Non-smoker Obesity due to excess calories [...] 1 years old. ? Live in [place]. ? Travel on cruise ships. What are [...] immune system (more content not included)... Normal [facility] ED Note-Physicianon 12-08-19 ED Note-Physician [id number] #1.00CD:127 Normal [facility] Family Medicine Office/Clini c Noteon 12-08-2022 Family [...] and COVID. 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 Gastroenteritis due to Higdon-like virus (A08.8: Other specified intestinal infections) Viral [...] day(s), # 30 tab(s), Refills(s) 0, Pharmacy: [facility], 170, cm, 12/08/22 12:00:00 EST, Height/Length Dosing, 90.5, kg, 12/08/22 12:00:00 EST, Weight Dosing Follow-up With When Contact Information Keyon BROWN MD, FAM Only if needed Additional Instructions: Patient Education Viral Gastroenteritis, Adult Problem List/Past Medical History Ongoing BMI 31.0-31.9,adult Gastroenteritis due to Higdon-like virus Non-smoker Obesity due to excess calories [...] Alcohol Use, 05/26/2017 Employment/School 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 Never Smokeless Tobacco Use:., 12/08/2022 Family History Family history is negative Immunizations Vaccine Date Status Comments influenza virus vaccine, inactivated - Not Given Postpone due to refusal SARS-CoV-2 mRNA (lauren 5y-11y) vac - Not Given Postpone due to refusal Hep A, unspecified formulation 02/16/2008 Recorded diphtheria/pertussis , acel/tetanus adult 08/02/2007 Recorded meningococcal conjugate vaccine 08/02/2007 Recorded Hep A, unspecified formulation 08/02/2007 Recorded measles/mumps/rubell a virus vaccine 08/19/2000 Recorded DTaP, unspecified formulation 08/19/2000 Recorded varicella virus vaccine 10/10/1997 Recorded m (more content not included)... Normal [facility] Comment on above: Result Comment: Elec tronically [...] 1 years old. ? Live [place]. ? Travel on cruise ships. What are [...] and water are not available, use hand director of culture. ? Make sure that all people in your household wash their hands well and often. ? Take gsxy-jdz-qrstanv and prescription medicines only as told by [...] person (more content not included)... Normal [facility] COVID-19, Rapidon 12-04-2022 SARS-CoV-2 (COVID-19) RNA [...] management decisions. Fact sheet for Healthcare Providers: https://www.fda.gov/media/551816/download Fact sheet for Patients: https://www.fda.gov/media/924176/download Methodology: Isothermal Nucleic Acid Amplification Specimen Description .NASOPHARYNGEAL SWAB [facility] Flu A/B Ag Detectionon 12-04 Flu A Ag Detection Negative Normal NEG [facility] Comment on above: Result Comment: for Influenza A Antigen Performed By: #### F LUABA #### [facility] [address] [place] [address] Pilot Teacher: Armen Madrigal MD Flu B Ag Detection Negative Normal NEG [facility] Comment on above: Result Comment: for Influenza B Antigen. Performed By: #### F LUABA #### [facility] [address] [place] [address] Pilot Teacher: Armen Madrigal MD Rapid influenza A/B antigens on 12-04-2022 Flu A Antigen Negative NEGATIVE [facility] Comment on above: for Influenza A Anti gen Flu B Antigen Negative NEGATIVE [facility] Comment on above: for Influenza B Anti gen. [facility] AAKW-JcQ-2lf 12-04-2022 SARS-CoV-2 (COVID-19) RNA WADE+probe Ql (Unsp spec) Not detected Normal NOTDET [facility] Comment on above: Result Comment: Rapid NAAT: [...] management decisions. Fact sheet for Healthcare Providers: https://www.fda.gov/media/673356/download Fact sheet for Patients: https://www.fda.gov/media/777865/download Methodology: Isothermal Nucleic Acid Amplification Performed By: #### C OVRB #### [facility] [address] [place] [address] Pilot Teacher: MD Massimo Stevens Urineon 09-06-2022 Bacteria identified [...] Locations R1: This test was performed at: [facility], [address] [place] [address], [address] [place] [address], [facility] Comment on above: Performed By: #### 2 [id number], [id number], [id number] ####[facility] [address] [address] Coding Summary.on 09-04-2022 Coding Summary. [id number] Gh0bWw+PGhlYWQ+PE1FV ZGcY60awCBtfX2OI7eVM H7OTGTGSEOXRN6YUF2kt XJ1AWygE2VtupMr TpritULmWX93BXo8VMY8 zAzwZTbxiH7mgBFlN4j5 MbAcOG73cX31WWutKJHd SjT1AlZorqjakSLt O5dqWoSkxMHqCob+PHRh YmxlIHdpZHRoPScxMDAl QoXeaHzvLM6qMy0yRWIa LWNvbGxhcHNlOiBj z0rzICFvABqbXV9viQjk J3DauFW8YUMev1h3Zb85 dHI+UCYsTFK5aDcdYFas d381BiNhk6thZLQ3 gYRtRUmqYSR1Z16xc8D8 NYYkATJaQPR6bQO5nJ5d lRmuhajgW7BitPNsAzR8 VLD9xOKbiZ6atMpg ihrgxM3rTyt+F72WJD4J URYDDL6ONes3D5SgFfpo dHI+QG16OXPtWW11lYYv hFUkh0jgsMa5TbAj EHVqCTL1eXwhOAkkl0Hp LDMwV85udRUdp2K7OEDm jNuxdFNoIrFknJD4bT2k VUkipxtjy8kmduui Iucqm0ffig82pY92X53b VOdzVHKyYZV5ZRZyDCQg yMvtzd6wkA9sDo6+IDxj o0mnp7nqrNu0LtQx JCJlmsEkvMeqODE4t8Wd Is90T0ByfPzyt8GhHwu7 hn78kFSzv6L1jGY3TQtw NYVjiX2gZGzhYmO8 UJIvYvBllP80zCXvHEsg Gm4zuNmhyPemVD2nYZBq kkhcFVTthK5fPJYwoSRb nUnqDK7zNFTlzqhn b313LuDuYBR1VVXbjYNf Y6RhhS2qLfUlVKVvXRMz J0ZggDVsWXmdT865CBqg XwJ4VIEztuKfF1Ao CEZibMbrWaY9u5P3Rc7I i0OtzwwwPAL1NYfmKZZn VvT3WpRqYrP6P6TySlf2 PEZjyVzbFQ1eC6Zw UZQoftejgbqirID0SGWz ZRJnjZ76pUHaGRljHx4o w2Z1o318CNPdFZHlrU67 Wv1kyXvdBDSzuXLF zT0rwkxqz7bdiofjQsOt QFJaPFw4WEe1WASebJue OdKtEMD8TtN2OQJ6eRPv tA9aaBmqgsdloC3x Oyc+K79lxA1tGJY1GUT7 pneaFXAivkJmRW55WS43 U2CbNxjzgSPtxQO+PGRp zxGfvLvvBS6nVnSa m6xnj5SrEEosH3TdSZSz XNcdQyj5JKWeBUR1qHC5 eR2zQLJkRCzlp9W6qRK6 L2SxieZdoe4xn2cf NOFaUBnpJ66onMWgv3G0 JZNjxIN9KAUohUvrTiUi qU16Xga+TXOcnZtfd5Xz Mvitg6pzw0bzuKe0 IjMwJSIgdmFsaWduPSJ0 l1BjLs10D31bMOfvYBBu IMSeQRGvEKGohTbmzt4p uT0lUi9+PGNvbCB3 oBA1zA5oOHJtWiK4XOrx T662RrCypVFcMefjg5nv q8xsyKc0LjEgHWRlosDy rUqyXUT1n9XuGn29 M51iROxfIBXbHQTpOKRp LCSceWhsji3qnG5uEu8+ WC5dg0eniy37nW89aFB+ ILRgAAC9uSqwLRpc FROouF7hHLimSfY4KLOb QiHkgL77lNDsEEhdVh8u nSwhyVwqIJ5mPWJkonnu b775AnSwh9atCAHu kMBnGMgbNDB4H23xd0G6 TGBfIAIaWTM1xJN3fX6g bGlnbjogbGVmdDsgdmVy vSjzVBggVKmsD783 IHRvcDsnPlBhdGllbnQg PpHpOGu2T3DuJzj0GVOf yZzeSD5jgVJrKCvvGp5j cKhlqPuyCF6sYPCc dmdjt286VxCxc3vjHJZq dCZsQCnbZCO5X78hl3H8 PLIjHQUyYWK8fCO7gK5b bGlnbjogbGVmdDsg yuMizNoiVPtcQAmxV040 IHRvcDsnPkJpcnRoIERh sDK1ZA27DO84tTPaz2L5 vAX3P0WpLXGscvoa mjontXD6KOTwZRQhcK15 Jf3neKjkYa7gAJSbUIG7 QOQgaTAlA7OojH5yFwEm PBKsELUkW6OljPYj RBvhU339LSlnVyS0VYZm ncXyG3YiNVXamRgqKoP5 z0X1Nd6WS1D0RM45WH44 yLCkq4C1eDV3F2Gk LYDxtrditoprzLO6MXCz QILbeG13Pp9nsTijPh4a FQIsGKN3TIHkoDLnV5Ge uU4lCaDsIWJhJEXj L6RuyMTyMZpuM887JCpk QiV0CDWuwcMyT7GqRKFd cHntWpM1v0T7Vf9EPZc8 IH63KC22dBKlt9T2 gED3T5AwVUSuaofuacsu yNO2LSIcPYEtjC88Nh8d bDmtUj2qGRIcAGK6WNMf dHPdY1ZwpN6uWzAk VOShFHYxA3IeeQLfBMbc A285EDjdCbE9UENzsqYq H1CnULAxdQstRxL9e4R8 Bl3BLTJiYQ50JVC4 eNQ1XF85ZW20V7TsTelo dGFibGU+PHRhYmxlIHdp ZHRoPScxMDAlJyBzdHls CF9lUv4qDBRjSWYj jIxilUYfKgYbe0phAOTa DIcgEU1wdKzsW3SbsSP4 WYYeu9f9Is55D00lY0Ab dXA+WWYoeAV9oFL6 cS9eYwRxXmJ5IBcdK013 PaGdsQXdHdcdx9peh3jd mUv8OyF8ZQRqnmXuoTsc MVT3f9OsNf25F61l IHdpZHRoPSIxNSUiIHZh kCpmvd9ykT9bYj2+PGNv xVP2hMK1mL2qSoMqFzN6 KOihS101IdSpcVSe Plfpv4lom6hozVb0EaIr LDQseoRxbZzhBSH7w1Ua Dx75K6BzwCjcg8YcIlq4 ez32cXCht1G4mNY0 N3VcFHMcgwjvnHImzGzg UF6zFSLnhtcmIQHcdN7d GOQuM9k9PwVoDuM0DBev T0NlliA2TRQnxEXm CFnuEOQ3U01ka1J4JBNp FOWdADL0lAP5wB5joVks bjogbGVmdDsgdmVydGlj LDfdDRwaY903HWDf tJzaIJVeiZ8qRDYaoXOa nJoeYW7lDEJgibqjZlML Aj7AOMVcAPiXYMpUVQ7m RTwvdGQ+PHRkIHN0 iEapNCbzGUUfyP3yONUc O3y7OrTnCbN7ACxmM8Yp EJItujuiIk77tU7yDhWg GyZ3KEtgB5ZyegS4 YRWzbPYhBFsvUZI8Q39q a4E8ZQFjCBYoVVT8eKS7 wS5poQacierjuYHpfOoj dmVydGljYWwtYWxp P347GZUhdPctLdBuKiE1 IgT8JKJ5I1XaPsd7ARRg kUnrSV0rtUAjKMhrVf2l vVxrwUhvIH1qVHXn dbpfEARvgQ0lNRGemZGe rPpeYH0uGXWdccyzl369 SrRsAHD2CXTmuUZkY5Mg xO1vLqJoXBOuLRZc J8LtvSXkGFenU280BLwr BlK0IPXpezQcE6WlLDDy vBznJdL5g5O5Ta1dVfEW ZWFyczwvdGQ+PHRk DWL1iYltHLrbBARkqH5y BFWyS4n1PmGmHaH0FEwr B2VdKOJrblfuZd44dS0x IrJfQtA7APsyJ7Wi xpY3NPPuaWCzSWxhHLZ8 W79cv0Q7SEBpTZAjCFS2 yXT7pL7eoHavbmnzlGWd dDsgdmVydGljYWwt YKktV145JKPpnMtxKbXb bWFsZTwvdGQ+PHRkIHN0 vRwgSVfgNVKbiI9pJTSe L2v3HpDqJfU9DOqx B9FhDBTxyrebIk16yV4l AxJmGrV7LGaqN6GgbqW0 EFAklBSlIDkoUBN7R89x r9P0RDUcKAXeYZP4 xZT2kZ8nyGzdildwtQDz dDsgdmVydGljYWwtYWxp B591MJClySncAiSkCAGn DW6qnSymwAB+PC90 tc03E0PoDnwrDnm8WOVu GQT9jBV9qJ9cSKZjNIhl l2X4nIT5X5JmqrZkyo1h j2byUMQaVTbnM34d qFYot0B7OEIgoQV4UBDa zYzrDhFmtD94Rck+PGNv lAcun1LxYyiey3qyz8fa mMa6BsApVJArpsTb tLjuSSN4e8AkWr82N81b IHdpZHRoPSIzMCUiIHZh uEwiul2mzT3wXf1+PGNv tOD1pWM6eN6nRtDn XsY6AQedE112OoVzbDAj Krklj9tce6szyGi0KyJk PSTecsZniMxiOEK0v9Se Ay29Q7GruOdoa7Yg Ddt0fq41mEYhl1S5fAH9 H8VaDNZlwwnotMBalOcw VM4jLOQogaiiJOIfoI6b TSVhQ5l9WlWfJwH3 WZkiJ2UgylD6VBLheMFa ZGAevZDNcK5ktyocj8kt hlauFwLfDFVuWRx0OUq5 LWFsaWduOiBsZWZ0 UnO1HUO8eNOzvE9tbEax enlmjE6nEbw+UNa7l4tq zECyIM6udJT1TT50HJ45 hUNeq8R0aIA2E7Bn QIUhtkimvbjntUC9NHAg WIPdbG95Xx7mbEbdAh6j XSFnWNW4DFZzfGXsD9Sm cB4rTgSzKHXvMLBi U2QslEMmRFfuW406CEln OsA1YURyonKrE7IiRKMw hJfnMzX1u6Q4Ff3XDK73 SN38SE46pOGxi5F4 tCV3O2HkTEIafuuhnpnm qBF4MIElQXVezC88Aj1n dClkRm1bJTBbBWW6KBCf wGVhJ5UrgB2nCvNj DFSmHIOiC2NcwHQpLPpb K204XZffWgQ9MSFrujDd D1NcPFYywLaeKuO8f5R4 Js1XFt89UV57KV73 jQHhn7F8zWB9F1AiCARb jqibsqmyrNT1QWNxPKLp jG04Jk1nuChyTc7nGXCk PQG7XEBxjWDiY6Qj qO1rNfWrCDPzKEHqK1Iw oRFoWIfaI950RAejUnI6 LRBttzPhD3EyDDTllBgy AnW4o2P2Qw2CJVnu uew4L8KoRbzfiKO+PC90 UCXdLF62tQClrESzl6ml hMh6RoWeRVOcGLV2kBvs VKezo7GwSBPeH86q bGFw (more content not included)... Normal [facility] Consent for Treatmenton 08-22 Consent for Treatment [id number] #1.00CD:127 [facility] Discharge Instructionson Discharge Instructions [id number] #1.00CD:127 [facility] ED Clinical Summaryon 2021 ED Clinical Summary [place] [id number] ED Clinical Summary Person Information Name: MEENA READ [facility]ath[facility] Age: 26 Years : 1995 Sex: Female Language: Gibraltarian PCP: Charli LOPEZ Marital Status: Single Visit [...] 09/03/2022 15:51:51 09/03/2022 15:51:51 09/03/2022 15:51:51 ADDRESS: [address] [place] [id number] PHYS DOC NOTES: MEDICAL INFORMATION: Prescriptions Given: New Medications [facility], [address], [place] [id number], [phone] ondansetron (Zofran ODT 4 mg Tab-Dis) 1 Tablets By Mouth 3 times a day. Refills: 0. Medications to Continue with No Changes Other Medications multivitamin, ( Multivitamins with Vitamin B Complex, Vitamin C, Minerals and L-Methylfolate oral capsule) 1 Capsules By Mouth every day. Refills: 0. PATIENT EDUCATION INFORMATION: Instructions: Nausea and Vomiting, Adult Follow up: With: Address: When: Charli Gaines [place] [id number] Business ([employer]) In 3 days 09/06/2022 DIAGNOSIS: Nausea & vomiting Normal [facility] ED Note-Physicianon 09-03-20 ED Note-Physician Basic Information [...] TID, # 15 tab(s), Refills(s) 0, Pharmacy: [facility], 170, cm, 09/03/22 14:31:00 EDT, Height/Length [...] CARLSON In 3 days 09/06/2022 EDT [address] [place] [address] [facility] (1) Additional Instructions: Patient Education Nausea and Vomiting, Adult Attestation Patient seen and evaluated by the physician baking assistant. Attending physician was present in the emergency department and supervised care. This visit was performed by both the physician and an APC. I performed all aspects of the MDM as documented. This report was transcribed using voice recognition software. Every effort was made to ensure accuracy, however, inadvertently computerized machine cage maker mistakes may be present. Appropriate healthcare PPE [...] (09/03/22 14:49:0 (more content not included)... Normal [facility] Comment on above: Result Comment: Elec tronically [...] added (diluted fruit juice). ? Eat bland, nrcd-kl-nxyyma foods in small amounts as you are able. These foods include bananas, applesauce, rice, lean meats, toast, and crackers. ? Avoid fluids that contain a lot of sugar or caffeine, such as energy drinks, sports drinks, and soda. ? Avoid alcohol. ? Avoid spicy or fatty foods. General instructions ? Take qejp-gnr-iackjrz and prescription medicines only as told by your health care provider. ? Drink enough fluid to keep your urine pale yellow. ? Wash your hands often using soap and water. If soap and water are not available, use hand director of culture. ? Make sure that all people in [...] and drinking to prevent dehydration. ? Take arrw-zuj-bbdsdhl and prescription medicines only as told by [...] Reviewed: 04/18/2019 Elsevier Patient Education ? 2019 [employer] Normal [facility] ED Patient Summaryon 022 ED Patient Summary [place] [id number] Patient Discharge Instructions Person Information Name: MEENA READ Age: 26 Years Arrival Date: 09/03/2022 14:27:10 Discharge Diagnosis: Nausea & vomiting Primary Care Physician: Charli LOPEZ Provider Information Primary Provider: Evan Moyer DO Advanced Clinic Lead:Neil Meza PA-C The exam and treatment you received in the Emergency Department were for an urgent problem and are not intended as complete care. It is important that you follow up with a doctor, nurse practitioner, or physician?s baking assistant for ongoing care. If your symptoms [...] Follow-up Instructions: With: Address: When: Charli CARLSON [address] [place], [place] [id number] Business (1) In 3 days 09/06/2022 In the event that this physician does not participate in your insurance network, please consult with your insurance company to find a nearby participating provider. Patient Education Materials: Nausea and Vomiting, Adult A MESSAGE TO ALL PATIENTS REGARDING OPIOIDS PRESCRIPTION OPIOIDS: WHAT YOU NEED TO KNOW Prescription opioids can be used to help relieve msnpfvpx-bo-hqpijn pain and are often prescribed following a [...] be struggling with addiction, tell your health wild animal caretaker and ask for guidance or call [facility] National Helpline at 3-693-187-HELP. v Source: US Dep (more content not included)... Normal [facility] U BetaHcg Qualon 09-03-2022 HCG.beta subunit (U) [Moles/Vol] Negative Normal [facility] Comment on above: Performed By: #### 2 [id number], [id number], [id number] ####[facility] [address] [place] [address] UA With Cult Reflexon 2021 Bacteria LM Ql (Urine sed) 2+ /HPF Abnormal Trace [facility] Comment on above: Performed By: #### 2 [id number], [id number], [id number] ####[address] [address] Bilirubin Ql (U) Negative Normal Negative [facility] Comment on above: Performed By: #### 2 [id number], [id number], [id number] ####[place] [address] Clarity (U) CLEAR Normal Clear [facility] Comment on above: Performed By: #### 2 [id number], [id number], 9334672 ####[place] [address] Color (U) YELLOW Normal Yellow [facility] Comment on above: Performed By: #### 2 [id number], [id number], 9432230 ####[place] [address] Epithelial cells.squamous LM.HPF (Urine sed) [#/Area] 5-8 Normal 0-2 [facility] Comment on above: Performed By: #### 2 [id number], 44087226, 6213899 ####[address] [address] Glucose Test strip (U) [Mass/Vol] Negative Normal Negative [facility] Comment on above: Performed By: #### 2 8132677, 10313266, 7252507 ####[address] [address] Hemoglobin Ql (U) Negative Normal Negative [facility] Comment on above: Performed By: #### 2 [id number], 31060418, 4635724 ####[address] [place] [address] Ketones (U) [Mass/Vol] Negative Normal Negative [facility] Comment on above: Performed By: #### 2 8495077, 45910287, 6619608 ####[address] [address] Hornick.plasma/Lit hium.RBC (Bld) [Mass ratio] 0-3 Normal 0-3 [facility] Comment on above: Performed By: #### 2 1517939, 84467918, 9813002 ####[address] [address] Mucus Ql (Urine sed) 1+ Normal [facility] Comment on above: Performed By: #### 2 2804322, 59474033, 2678857 ####[address] [address] Nitrite Ql (U) Negative Normal Negative [facility] Comment on above: Performed By: #### 2 1862363, 28977696, 5833043 ####[address] [address] pH (U) 5.5 [pH] Invalid Interpretation Code 5.0-9.0 [facility] Comment on above: Performed By: #### 2 9538339, 19737090, 5682993 ####[address] [address] Protein (U) [Mass/Vol] Negative Normal Negative [facility] Comment on above: Performed By: #### 2 6835496, 30037453, 8271379 ####[address] [address] Specific gravity (U) [Rel density] >=1.030 Invalid Interpretation Code 1.005-1.030 [facility] Comment on above: Performed By: #### 2 9172756, 57937719, 7635618 ####[address] [address] Type of Urine collection method Clean Catch Normal [facility] Comment on above: Performed By: #### 2 8547919, [id number], 4959379 ####[facility] [address] [place] [address] Urobilinogen Qn (U) 0.2 {Elver'U}/dL Normal 0.0-1.0 [facility] Comment on above: Performed By: #### 2 6484003, 91431987, 0735104 ####[facility] [address] [place] [address] WBC Auto Ql (U) Negative Normal Negative [facility] Comment on above: Performed By: #### 2 5666352, 71599531, 6581057 ####[facility] [address] [place] [address] WBC LM.HPF (Urine sed) [#/Area] 0-5 Normal 0-5 [facility] Comment on above: Performed By: #### 2 9470309, [id number], 1045474 ####[facility] [address] [place] [address] XR WRIST LEFT (MIN 3 VIEWS)o n [...] Anton Jr., MD 06/19/22 Final result Normal [facility] Normal left wrist. [facility] EXAM: XR WRIST LEFT (MIN 3 VIEWS) HISTORY: M25.532. 26-year-old female, left wrist pain. COMPARISON: None. TECHNIQUE: Three views left wrist. FINDINGS: The radiocarpal joint and wrist are normal. Normal scapholunate distance. No erosion or chondrocalcinosis. [facility] Mauro Anton Jr., MD - 06/19/2022 EXAM: XR WRIST LEFT (MIN 3 VIEWS) HISTORY: M25.532. 26-year-old female, left wrist pain. COMPARISON: None. TECHNIQUE: Three views left wrist. FINDINGS: The radiocarpal joint and wrist are normal. Normal scapholunate distance. No erosion or chondrocalcinosis. IMPRESSION: Normal left wrist. 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 pain has been constant for about 1 week now. History of Present Illness Pt presents today to [facility]. Previous pt of [facility] [place]. Concerned today about left wrist pain which started about 1 yr ago; pain has worsened over the last week. 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 Carries everything in her left hand. Right handed. Pain location: medial martinez hand, radiating to wrist Pain description: shooting Pain rated: 2/10, 7/10 with certain movements. 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 Negative Tinels and DeQuervians. + Phalens. Technical Engineer strength equal. Neurologic: Cranial nerves II-XII grossly intact. Skin: [place], warm and dry. No rashes, ulcerations, or suspicious lesions noted on visible/exposed skin. Mental status: alert and oriented x 3. Normal mood and affect, normal behavior for age. Assessment/Plan 1. Carpal tunnel syndrome on left (G56.02: Carpal tunnel syndrome, left upper limb) Discussed options. Will treat with Ibuprofen, dosing and s/e. reviewed. Declines PT. Will refer to specialist shraddha Arciniega, advised she will be called to set up appt. Continue to wear wrist brace. Avoid heavy lifting or exacerbating activities. Ordered: ibuprofen, 800 mg = 1 tab(s), Oral, TID, Take with food. Not to exceed 3200 mg/day, X 10 day(s), # 30 tab(s), Refills(s) 1, Pharmacy: [facility], 170, cm, 06/01/22 12:55:00 EDT, Height/Length Dosing, 91.3, kg, 06/01/22 12:55:00 EDT, Weight Dosing [facility] External Ambulatory Referral 2. BMI 31.0-31.9,adult (Z68.31: Body mass index [BMI] 31.0-31.9, adult) The standard range for ages 18 and older is >=18.5 and < 25 kg/m2. Your BMI today was above this range, this falls in the obese category and there are medical benefits to weight loss. We can offer counselling, referral, and/or medical support in addressing this problem. Visit ChooseMyPlate.gov for useful information to help make better [...] unspecified fo (more content not included)... Normal [facility] Comment on above: Result Comment: Elec tronically Signed By: Meena Carl CNP\.br\Date and Time Signed: 06/01/22 13:16 EDT Patient Educationon 06-01-20 22 Patient Education Nutrition BMI for Adults Body [...] height. This can be done either in [place]arian ([place] or metric measurements. Note that charts are available to help you find your BMI quickly and easily without having to do these calculations yourself. To calculate your BMI in [place]arian ([place] measurements, your health care provider will: [...] problems. ? BMI can be measured using Gibraltarian measurements or metric measurements. ? To interpret [...] 07/20/2005 Document Revised: 10/21/2018 Document Reviewed: 09/21/2018 Fingerprint Patient Education ? 2020 [employer]. Orthopedics Carpal Tunnel Syndrome Carpal tunnel syndrome [...] Having a job, such as being a turbine subassembler or a lot attendant, that requires you to repeatedly move your [...] and midd (more content not included)... Normal [facility] Physician Referralon 022 Physician Referral [id number] #1.00CD:127 Normal [facility] Vital Signs Date Time Vital Sign Value Performing Clinician Chucki litmariya 01-10-2023 14:29-0500 Body height 165.1 cm Best Thorne MD Work Phone: [employer] 01-10-2023 14:29-0500 Body mass index (BMI) [Ratio] 34.35 kg/m2 Best Thorne MD Work Phone: [facility] 01-10-2023 14:29-0500 Body temperature 98.49 [degF] Best Thorne MD Work Phone: [facility] 01-10-2023 14:29-0500 Body weight 93.62 kg Best Thorne MD Work Phone: [facility] 01-10-2023 14:29-0500 Diastolic blood pressure 79 mm[Hg] Best Thorne MD Work Phone: [facility] 01-10-2023 14:29-0500 Heart rate 75 /min Best Thorne MD Work Phone: [facility] 01-10-2023 14:29-0500 Respiratory rate 16 /min Best Thorne MD Work Phone: [facility] 01-10-2023 14:29-0500 SaO2% (BldA) [Mass fraction] 99 % Best Thorne MD Work Phone: [facility] 01-10-2023 14:29-0500 Systolic blood pressure 140 mm[Hg] Best Thorne MD Work Phone: [employer] 12-08-2022 11:51-0500 Blood Pressure Location [facility] KEVIN [place] 12-08-2022 11:51-0500 Body temperature 98.24 [degF] Keyon BROWN [place] 12-08-2022 11:51-0500 Diastolic blood pressure 78 mm[Hg] Keyon BROWN [place] 12-08-2022 11:51-0500 Heart rate 84 /min Keyon BROWN [place] 12-08-2022 11:51-0500 Respiratory rate 16 /min Keyon BROWN [place] 12-08-2022 11:51-0500 SaO2% (BldA) [Mass fraction] 100 % Keyon BROWN [place] 12-08-2022 11:51-0500 Systolic blood pressure 114 mm[Hg] Keyon BROWN [place] 12-04-2022 16:32-0500 Body mass index (BMI) [Ratio] 33.66 kg/m2 Sha Ruelas MD Work Phone[facility] [employer] 12-04-2022 16:32-0500 Body temperature 98.49 [degF] Sha Ruelas MD Work Phone: [facility] 12-04-2022 16:32-0500 Body weight 91.76 kg Sha Ruelas MD Work Phone: [facility] [employer] 12-04-2022 16:32-0500 Diastolic blood pressure 75 mm[Hg] Sha Ruelas MD Work Phone: [facility] [employer] 12-04-2022 16:32-0500 Heart rate 91 /min Sha [...] 06-01-2022 12:50-0400 Blood Pressure Location Meena Carl [facility] 06-01-2022 12:50-0400 Body temperature 96.98 [degF] Meena Aguilarell [facility] 06-01-2022 12:50-0400 Diastolic blood pressure 60 mm[Hg] Meena Aguilarell [facility] 06-01-2022 12:50-0400 Heart rate 88 /min Meena Aguilarell [facility] 06-01-2022 12:50-0400 SaO2% (BldA) [Mass fraction] 97 % Meena Aguilarell [facility] 06-01-2022 12:50-0400 Systolic blood pressure 122 mm[Hg] Meena Carl [facility] 09-14-2021 10:15-0400 Body mass index (BMI) [Ratio] 31.62 kg/m2 Keyon Wilkinson MD Work Phone: [email or web address] Work Phone: 09-14-2021 10:15-0400 Body weight 86.18 kg Keyon Wilkinson MD Work Phone: [email or web address] Work Phone: 09-14-2021 10:14-0400 Body height 165.1 cm Keyon Wilkinson MD Work Phone: [email or web address] Work Phone: 09-14-2021 10:14-0400 Body temperature 98.2 [degF] Keyon Wilkinson MD Work Phone: [email or web address] Work Phone: 09-14-2021 10:14-0400 Diastolic blood pressure 93 mm[Hg] Keyon Wilkinson MD Work Phone: [email or web address] Work Phone: 09-14-2021 10:14-0400 Heart rate 91 /min Keyon Wilkinson MD Work Phone: [email or web address] Work Phone: 09-14-2021 10:14-0400 Respiratory rate 20 /min Keyon Wilkinson MD Work Phone: [email or web address] Work Phone: 09-14-2021 10:14-0400 SaO2% (BldA) [Mass fraction] 96 % Keyon Wilkinson MD Work Phone: [email or web address] Work Phone: 09-14-2021 10:14-0400 Systolic blood pressure 131 mm[Hg] Keyon Wilkinson MD Work Phone: [email or web address] Work Phone: Encounters Encounter Date Encounter Type Care Provider Facility Start: 12-08-2023 End: 12-08-2023 ambulatory YULIA MEERA Not Available Start: 10-25-2023 End: 10-25-2023 ambulatory YULIA MEERA Not Available Start: 10-18-2023 End: 10-18-2023 ambulatory YULIA CAMPBELLO Not Available Start: 10-07-2023 End: 10-07-2023 ambulatory YULIA MEERA Not Available Start: 05-05-2023 End: 05-05-2023 Emergency department patient visit [facility] Start: 04-09-[address] NONE LISTED REQUEST Facility: Start: 02-26-2023 ambulatory [facility] Start: 01-29-2023 End: 02-01-2023 ambulatory Critical access hospital Start: 01-29-2023 End: 02-01-2023 ambulatory [facility] Start: 01-29-2023 End: 01-31-2023 Subsequent hospital visit by physician [facility] Additional Xray At [facility] Comment on above: Other closed fractur e of proximal end of right fibula with routine healing, subsequent encounter Start: 01-29-2023 End: 01-31-2023 Subsequent hospital visit by physician Keyon Brown MD Work Phone: [facility] Start: 01-10-2023 End: 01-10-2023 Emergency department patient visit [facility] Start: 01-10-2023 End: 01-10-2023 Emergency department patient visit Best Thorne MD Work Phone: [facility] ED Comment on above: Injury of right ankl e, initial encounter (Primary Dx) Start: 12-08-2022 End: 12-09-2022 ambulatory Keyon BROWN Facility:[facility] Start: 12-08-2022 End: 12-08-2022 Patient encounter procedure Keyon BROWN [place] Start: 12-04-2022 End: 12-04-2022 Emergency department patient visit [facility] Start: 12-04-2022 End: 12-04-2022 Emergency department patient visit Sha Ruelas MD Work Phone: [facility] ED Comment on above: Viral illness (Prima ry Dx) Start: 09-03-2022 End: 09-03-2022 Emergency department patient visit Evan Matthew Moyer Facility:[facility] Start: 06-19-2022 End: 06-22-2022 ambulatory ISRAEL C [facility] Start: 06-19-2022 End: 06-21-2022 Subsequent hospital visit by physician [facility] Additional Xray At [facility] Radiology Comment on above: Left wrist pain Start: 06-01-2022 End: 06-02-2022 ambulatory WAFER FABRICATION OPERATOR Meena Carl Facility:[facility] Start: 06-01-2022 End: 06-01-2022 Patient encounter procedure Meena Carl [facility] Start: 05-28-2022 ambulatory WAFER FABRICATION OPERATOR Meena Carl Faci lity:[facility] Start: 09-14-2021 End: 09-14-2021 Emergency department patient visit Keyon Wilkinson MD Work Phone: [facility] ED Comment on above: Subacute bronchitis [...] 07-23-2022 [facility] Start: 06-22-2022 Influenza vaccination Flu vaccine (# 1) [facility] [employer] Start: 07-23-2021 Influenza vaccination Flu vaccine (# 1) [facility] Phone: Start: 08-02-2017 DTaP/Tdap/Td vaccine (2 - Td or Tdap) DTaP/Tdap/Td vaccine (2 - Td or Tdap) [facility] Start: 2015 Screening for malign ant neoplasm of cervix Pap smear [facility] [employer] Start: 2013 DTaP/Tdap/Td vaccine (1 - Tdap) DTaP/Tdap/Td vaccine (1 - Tdap) [facility] Phone: Start: 2012 Hepatitis C screening Hepatitis C sc reen [facility] [employer] Start: 2009 HIV screening HIV screen [facility] [employer] Start: 2006 COVID-19 Vaccine (1) COVID-19 Vaccin e (1) [facility] Phone: Start: 2006 Depression Screen Depression Screen [facility] Start: 2005 HPV vaccine (1 - 2-d ose series) HPV vaccine (1 - 2-dose series) [facility] Phone: Start: 1998 Varicella vaccine (2 of 2 - 2-dose childhood series) Varicella vaccine (2 of 2 - 2-dose childhood series) [facility] Start: 1995 Varicella vaccine (1 of 2 - 2-dose childhood series) Varicella vaccine (1 of 2 - 2-dose childhood series) [facility] Phone: Start: 05-30-1995 COVID-19 Vaccine (#1) COVID-19 Vacci ne (#1) [facility] Start: 1994 Hepatitis C screening [facility] Immunizations Immunization Date Immunization Notes Care Provider Fa prakash 02-16-2008 Hep A, unspecified formulation Meena Carl [facility] 08-02-2007 Hep A, unspecified formulation Meena Carl [facility] 08-02-2007 meningococcal ACWY vaccine, unspecified formulation Meena Carl [facility] 08-02-2007 tetanus toxoid, reduced diphtheria toxoid, and acellular pertussis vaccine, adsorbed Meena Carl [facility] 08-19-2000 DTaP, unspecified formulation Meena Carl [facility] 08-19-2000 measles, mumps and rubella virus vaccine Me[facility] Carl [facility] [facility] 10-10[facility]1997 varicella virus vaccine Meena Carl [facility] 03-09-1996 DTaP, unspecified formulation Meena Carl [facility] 03-09-1996 Hib, unspecified formulation Meena Carl [facility] 03-09-1996 measles, mumps and rubella virus vaccine Meena Carl [facility] 06-11-1995 DTP-Hib Meena Carl [facility] 06-11-1995 hepatitis B vaccine, pediatric or pediatric/adolescent dosage Meena Carl [facility] 04-05-1995 DTP-Hib Meena Carl [facility] 02-01-1995 DTP-Hib Meena Carl [facility] 01-04-1995 hepatitis B vaccine, pediatric or pediatric/adolescent dosage Meena Carl [facility] 1994 hepatitis B vaccine, pediatric or pediatric/adolescent dosage Meena Carl [facility] NEGATED: Highlighted row has not occurred!12-08-2022 influenza virus vaccine, unspecified formulation [facility] NEGATED: Highlighted row has not occurred!12-08-2022 SARS-CoV-2 mRNA (tozinameran 5y-11y) vaccine [facility] Payers Date Payer Category Payer Unknown [id number] 1994 Unknown [id number] 2.16.8 40.1.499013.3.579.2.727 1994 Unknown [id number] 2.16.8 40.1.327784.3.579.2.727 1994 Unknown [id number] 2.16.8 40.1.632740.3.579.2.727 1994 Unknown [id number] 2.16.8 40.1.195625.3.579.2.727 1994 Unknown [id number] 2.16.84 0.1.080455.3.579.2.593 1994 Unknown [id number] 2.16.8 40.1.122795.3.579.2.174 1994 Unknown [id number] 2.16.8 40.1.331854.3.579.2.174 1994 Unknown [id number] 2.16.8 40.1.332116.3.579.2.174 1994 Unknown [id number] 2.16.8 40.1.285557.3.579.2.174 1994 Unknown [id number] 2.16.8 40.1.141305.3.579.2.174 1994 Unknown [id number] 2.16.8 40.1.874962.3.579.2.174 1994 Unknown [id number] 2.16.8 40.1.473077.3.579.2.174 1994 Unknown [id number] 2.16.8 40.1.510936.3.579.2.174 1994 Unknown [id number] 2.16.84 0.1.113053.3.579.2.1259 1994 Unknown [id number] 2.16.840 .1.337935.3.579.2.1259 1994 Unknown [id number] 2.16.840 .1.362474.3.579.2.1259 1994 Unknown [id number] 2.16.840 .1.752050.3.579.2.1259 1959 Unknown [id number] 1. [id number] Social History Date Type Detail Facility Start: 05-31-2018 End: 09-14-2021 Tobacco smoking status NHIS Never smoker [facility] Phone: Start: 05-31-2018 End: 09-14-2021 Tobacco use and exposure Never used [email or web address] Start: 09-14-2021 End: 01-10-2023 Alcohol intake Current non-drinker of alcohol (finding) [facility] Phone: Start: 1995 Sex Assigned At Not on file [facility] [employer] Work Phone: Start: 11-24-2022 End: 01-10-2023 Exposure to SARS-CoV-2 (event) Not sure [email or web address] Tobacco smoking status Never [facility] Sex Assigned At Female [facility] Start: 12-04-2022 End: 01-10-2023 History SDOH Alcohol Frequency 1 [employer] Phone: Functional Status Date Assessment Result Facility 12-08-2022 Functional Status N/A [facility] 06-01-2022 Functional Status N/A [facility] Clinical Notes 06-01-2022 to [...] cannot be sent through Care Everywhere.Ankle Sprain ([place])documented in this encounter [employer] Phone: 12-08-2022 Hospital Discharg e instructions Patient [...] than 2 years old. Live in a [place]. Travel on cruise ships. What are the [...] and water are not available, use hand director of culture. Make sure that all people in your household wash their hands well and often. Take ktdx-maq-usyvuew and prescription medicines only as told by [...] and water are not available, use hand director of culture. This information is not intended to replace advice given to you by your health care provider. Make sure you discuss any questions you have with your health care provider. Document Released: 11/08/2006 Document Revised: 04/26/2020 Document Reviewed: 09/13/2019 [employer] Patient Education 2019 [employer]. Follow Up Care 12/08/2022 09:17:52 With:Keyon BROWN MD, FAM Address: When: only if needed [facility] [place] 12-04-2022 [facility] Discharg e instructions Sha Ruelas MD - 12/04/2022 4:33 PM EST Increase fluids at home. Take Zofran for any nausea. Try Imodium/loperamide for diarrhea. Call primary care doctor for close follow-up. Use Tylenol or Motrin to keep fever down. The following attachments cannot be sent through Care Everywhere.Viral Infections ([place])documented in this encounter [facility] Work Phone: 06-01-2022 Hospital Discharg e instructions [...] height. This can be done either in [place] or metric measurements. Note that charts are available to help you find your BMI quickly and easily without having to do these calculations yourself. To calculate your BMI in [place] measurements, your health care provider will: [...] medical problems. BMI can be measured using [place] measurements or metric measurements. To interpret your [...] 07/20/2005 Document Revised: 10/21/2018 Document Reviewed: 09/21/2018 [employer] Patient Education 2020 [employer]. 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 General instructions Take kdnu-iuc-ukqbwnc and prescription medicines only as told by [...] 11/05/2001 Document Revised: 03/17/2019 Document Reviewed: 03/17/2019 [employer] Patient Education 2020 [employer]. Follow Up Care 05/28/2022 08:22:05 With:Meena Carl CNP Address: When: only if needed [facility] Evaluation + Plan note [facility] Evaluation note Diagnosis Subacute bronchitis- Primary Acute bronchitis [facility]* Diagnosis Left wrist pain Pain in joint, forearm documented in this encounter [facility] [employer] Phone: evalnonocq note* Diagnosis Viral illness- Primary Unspecified viral infection, in conditions classified elsewhere and of unspecified site documented in this encounter [facility] [employer] Phone: evalxuagki note* Diagnosis Injury of right ankle, initial encounter- Primary documented in this encounter [facility] [employer] Phone: evalfnjtie note* Diagnosis Other closed fracture of proximal end of right fibula with routine healing, subsequent encounter [facility] Narrative No data available for this section [facility] Hospital Discharge instructions* Attachments The following attachments cannot be sent through Care Everywhere. 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 Court 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 Relationship Specialty Start Date End Date Keyon Brown MD [address] [place] [address] [place] [address] PCP - General Family Medicine 12/04/[address] Relationship Specialty Start Date End Date Keyon Brown MD [address] [place] [address] [place] [address] PCP - General Family Medicine 12/04/[address] Relationship Specialty Start Date End Date Keyon Brown MD [address] [place] [address] [place] [address] PCP - General Family Medicine 12/04/22 INFORMATION SOURCE (unrecogn ized section and content) DATE CREATED AUTHOR 02/01/2023 Papito Monge [facility] DATE CREATED AUTHOR AUTHOR'S ORGANIZ ATION 04/01/2023 [facility] DATE CREATED AUTHOR AUTHOR'S ORGANIZ ATION 05/06/2023 Kirsty charles DATE CREATED AUTHOR AUTHOR'S ORGANIZ ATION 12/09/2023 [facility] FOR RECORDS PERTAINING TO PATIENTS WHO [...] BE BASED ON THE PRIMARY CLINICAL RECORDS. [email or web address] provides no warranty or guarantee of the accuracy or completeness of information in this document.
[2024-03-04 11:45] LABS: HCG Qualitative POSITIVE (NEGATIVE)
[2024-03-04 12:58] LABS: HCG Quantitative 4050 mIU/mL
== END 2024-03-04 10:32 | disposition home or self-care (01) ==
LOC: LAB 10:32
PROVIDERS: Obstetrics & Gynecology; Visit Provider Obstetrics & Gynecology
DX: N92.6 Irregular menstruation, unspecified (principal)
CPT/HCPCS: 36415; 84702; 84703

== ENCOUNTER 2024-03-06 10:35 | Outpatient (OUT) | payer OTHER, SELFPAY ==
--- NOTE | 2024-03-06 10:50 | US_ITS ---
The [address] [address] Patient Name: RUEL READ MRN: [id number] date: 1995 Sex: F Assigned Patient Location: LAB Current Patient Location: LAB Accession/Order Number: [id number] Exam Date: 03/06/2024 10:51 Report Date: 03/06/2024 12:27 At the request of: YULIA ESTES Procedure: US OB transvaginal EXAMINATION: US OB transvaginal HISTORY: Vaginal Bleeding In O46.90 COMPARISON: 03/02/2024 FINDINGS: No intrauterine or ectopic is observed on the current exam. The uterus is normal, anteverted. The ovaries are normal. The cervix is closed US/US OB transvaginal IMPRESSION: Findings consistent with interval complete miscarriage Electronically authenticated by: GABBIE PICKERING Date: 03/06/2024 12:27
--- OUTSIDE RECORDS SUMMARY | 2024-03-06 10:56 | XMS_ITS | CCD ---
Author Organization [facility] Care Team Providers Care Inside Sales Representative Name Role Phone Unavailable Primary Care Provider UnavailCharli Browne Primary Care Physician [phone] Keyon Brown MD Primary Care Provider ANTHONY Carl Attending UnavailKeyon Lockett Unavailable Evan Moyer Attending Unavailable LISHA, DR DRUMMOND LISTED Consulting Unavaila peggy [facility], DR NICOLE Primary Care Unavailable MEERA ., DR BENDER Attending Unavailable MEERA ., DR BENDER Admitting Unavailable YULIA ESTES Attending Unavailable YULIA ESTES Attending Unavailable YULIA ESTES Attending Unavailable YULIA ESTES Attending Unavailable KEYON BROWN Primary Care Unavailable KEYON BROWN Primary Care Unavailable OTTO INGRAM Attending Unavailable KEYON BROWN Primary Care Unavailable OTTO INGRAM Attending Unavailable YULIA ESTES Referring Unavailable KEYON BROWN Primary Care Unavailable Allergies Allergy Classification Reported Allergen(s) Allergy Type Date of Onset Reaction(s) Facility (6 sources) Acetaminophen / HYDROcodone Drug Allergy 7 Rash [facility] (6 sources) Acetaminophen / oxyCODONE Drug Allergy 6 Rash [facility] (9 sources) Codeine; Translations: [codeine] Drug Allergy 7 Rash, Cutaneous eruption (morphologic abnormality) [facility] (3 sources) Acetaminophen / HYDROcodone; Translations: [acetaminophen-hy drocodone] Drug Allergy Hives [facility] (3 sources) Acetaminophen / oxyCODONE; Translations: [acetaminophen-ox ycodone] Drug Allergy Cutaneous eruption (morphologic abnormality) [facility] (1 source) Acetaminophen / HYDROcodone Drug Allergy [facility] (1 source) Acetaminophen / oxyCODONE Drug Allergy [facility] (1 source) Codeine Drug Allergy [facility] Medications Current Medications Medication Drug Class(es) [...] extended release oral tablet (6 sources) Uncompetitive U-qxsvpl-I-aspartate Receptor Antagonist, Sigma-1 Agonist Start: 09-14-2021 take 1 tablet by mouth every twelve hours as needed for cough Dextromethorphan- guaiFENesin 60-1200 MG TB12 Take 1 tablet by mouth every 12 hours as needed (COUGH CONGESTION) 28 tablet 0 09/14/2021 Active dextromethorphan hydrobromide 3 mg/ml / promethazine hydrochloride 1.25 mg/ml oral solution (6 sources) Phenothiazine, Uncompetitive P-nohgva-J-aspartate Receptor Antagonist, Sigma-1 Agonist Start: 05-31-2018 promethazine-dext [...] day(s), # 30 tab(s), Refills(s) 1, Pharmacy: [facility], 170, cm, 06/01/22 12:55:00 EDT, Height/Length [...] TID, # 15 tab(s), Refills(s) 0, Pharmacy: [facility], 170, cm, 09/03/22 14:31:00 EDT, Height/Length Dosing, 92, kg, 09/03/22 14:31:00 EDT, Weight Dosing Start Date: 09/03/22 Status: Ordered Problems Active Problems Problem Classification Problem Date Documented Da te Episodic/Chronic Acute bronchitis (1 source) Subacute bronchitis; Translations: [Acute bronchitis, unspecified] Episodic Esophageal disorders (2 sources) Acid reflux 08-22-2016 Chronic Fracture of lower limb (1 source) Closed fracture of upper end of fibula; Translations: [Other fracture of upper and lower end of right fibula, subsequent encounter for closed fracture with routine healing] Episodic Headache; including migraine (1 source) Headache; including migraine; Translations: [Headache, unspecified] Onset: 05-05-2023 Intestinal infection (2 sources) Intestinal infectious disease; Translations: [Other specified intestinal infections] Onset: 12-08-2022 Episodic Menstrual disorders (2 sources) Irregular menstruation, unspecified; Translations: [Irregular menstruation, unspecified] Onset: 03-04-2024 Chronic Other injuries and conditions due to external [...] [Other specified health status] Onset: 06-01-2022 Episodic Unclassified (2 sources) Non-smoker 06-01-2022 Viral infection (1 source) Viral disease; Translations: [Viral infection, unspecified] Episodic Past or Other Problems Problem Classification Problem Date Documented Da te Episodic/Chronic Other upper respiratory infections (1 source) Acute upper respiratory infection, unspecified; Translations: [Acute upper respiratory infection, unspecified] Onset: 07-19-2023 Episodic Residual codes; unclassified (1 source) 24 weeks gestation of ; Translations: [24 weeks gestation of ] Onset: 07-19-2023 Episodic Residual codes; unclassified (1 source) 14 weeks gestation of ; Translations: [14 weeks gestation of ] Onset: 05-05-2023 Episodic Unclassified (4 sources) Onset: 10-21-2012 Resolved: 11-22-2017 12-03-2017 Results Test Name Value Interpretation Reference Range Facility HCG, Quanton 03-04-2024 HCG, Quant 3680.0 mIU/mL High <5 [facility] Comment on above: Result Comment: Non-preg premeno <=5 Postmeno <=8 Male <=3 If HCG results do not concur with clinical observations, additional testing to confirm results is recommended. Performed By: #### B HCG #### [facility] [address] [place], [place] [id number] Capital Project Engineer: Armen Madrigal MD CBC with Diffon 05-05-2023 Abs. Basophil 0.00 k/uL Normal 0.0-0.2 [facility] Comment on above: Performed By: #### C DP, CP #### [facility] [address] [place], [place] [id number] Capital Project Engineer: Armen Madrigal MD Abs.Neutrophil (Seg) 5.30 k/uL Normal 2.5-7.0 [facility] Comment on above: Performed By: #### C DP, CP #### [facility] [address] [place], [place] [id number] Capital Project Engineer: Armen Madrigal MD Auto Diff Performed YES Normal [facility] Comment on above: Performed By: #### C DP, CP #### [facility] [address] [place] [id number] Capital Project Engineer: Armen Madrigal MD Basophils/100 WBC (Bld) 1 % Normal 0-2 [facility] Comment on above: Performed By: #### C DP, CP #### [facility] [address] [place] [id number] Capital Project Engineer: Armen Madrigal MD Eosinophils (Bld) [#/Vol] 0.00 10*3/uL Normal 0.0-0.4 [facility] Comment on above: Performed By: #### C DP, CP #### [facility] [address] [place] [address] Capital Project Engineer: Armen Madrigal MD Eosinophils/100 WBC (Bld) 1 % Normal 0-5 [facility] Comment on above: Performed By: #### C DP, CP #### [facility] [address] [place] [id number] Capital Project Engineer: Armen Madrigal MD Erythrocyte distribution width (RBC) [Ratio] 13.8 % Normal 12.1-15.2 [facility] Comment on above: Performed By: #### C DP, CP #### [facility] [address] [place] [id number] Capital Project Engineer: Armen Madrigal MD Hematocrit (Bld) [Volume fraction] 34.4 % Low 36-46 [facility] Comment on above: Performed By: #### C DP, CP #### [facility] [address] [place] [id number] Capital Project Engineer: Armen Madrigal MD Hemoglobin (Bld) [Mass/Vol] 11.9 g/dL Low 12.0-16.0 [facility] Comment on above: Performed By: #### C DP, CP #### [facility] [address] [place], [place] [id number] Capital Project Engineer: Armen Madrigal MD Lymphocytes (Bld) [#/Vol] 1.90 10*3/uL Normal 1.0-4.8 [facility] Comment on above: Performed By: #### C DP, CP #### [facility] [address] [place], [place] [id number] Capital Project Engineer: Armen Madrigal MD Lymphocytes/100 WBC (Bld) 25 % Normal 15-40 [facility] Comment on above: Performed By: #### C DP, CP #### [facility] [address] [place] [address] Capital Project Engineer: Armen Madrigal MD MCH (RBC) [Entitic mass] 29.3 pg Normal 26-34 [facility] Comment on above: Performed By: #### C DP, CP #### [facility] [address] [place] [address] Capital Project Engineer: Armen Madrigal MD MCHC (RBC) [Mass/Vol] 34.6 g/dL Normal 31-37 [facility] Comment on above: Performed By: #### C DP, CP #### [facility] [address] [place] [address] Capital Project Engineer: Armen Madrigal MD MCV (RBC) [Entitic vol] 84.8 fL Normal 80-100 [facility] Comment on above: Performed By: #### C DP, CP #### [facility] [address] [place] [address] Capital Project Engineer: Armen Madrigal MD Monocytes (Bld) [#/Vol] 0.50 10*3/uL Normal 0.0-1.0 [facility] Comment on above: Performed By: #### C DP, CP #### [facility] [address] [place] [address] Capital Project Engineer: Armen Madrigal MD Monocytes/100 WBC (Bld) 6 % Normal 4-8 [facility] Comment on above: Performed By: #### C DP, CP #### [facility] [address] [place], [place] [id number] Capital Project Engineer: Armen Madrigal MD Neutrophil (Seg) 67 % Normal 47-75 [facility] Comment on above: Performed By: #### C DP, CP #### [facility] [address] [place] [address] Capital Project Engineer: Armen Madrigal MD Platelets (Bld) [#/Vol] 191 10*3/uL Normal 140-450 [facility] Comment on above: Performed By: #### C DP, CP #### [facility] [address] [place] [address] Capital Project Engineer: Armen Madrigal MD RBC (Bld) [#/Vol] 4.06 10*6/uL Normal 4.0-5.2 [facility] Comment on above: Performed By: #### C DP, CP #### [facility] [address] [place] [address] Capital Project Engineer: Armen Madrigal MD WBC (Bld) [#/Vol] 7.7 10*3/uL Normal 3.5-11.0 [facility] Comment on above: Performed By: #### C DP, CP #### [facility] [address] [place] [address] Capital Project Engineer: Armen Madrigal MD Comp Metabolic Profon 2022 Albumin [Mass/Vol] 3.4 g/dL Low 3.5-5.2 [facility] Comment on above: Performed By: #### C DP, CP #### [facility] [address] [place] [address] Capital Project Engineer: Armen Madrigal MD Alkaline Phos 44 U/L Normal 35-104 [facility] Comment on above: Performed By: #### C DP, CP #### [facility] [address] [place], [place] [id number] Capital Project Engineer: Armen Madrigal MD ALT [Catalytic activity/Vol] 5 U/L Normal 5-33 [facility] Comment on above: Performed By: #### C DP, CP #### [facility] [address] [place], [place] [id number] Capital Project Engineer: Armen Madrigal MD Anion gap [Moles/Vol] 11 mmol/L Normal 9-17 [facility] Comment on above: Performed By: #### C DP, CP #### [facility] [address] [place], [place] [id number] Capital Project Engineer: Armen Madrigal MD AST [Catalytic activity/Vol] 9 U/L Normal <32 [facility] Comment on above: Performed By: #### C DP, CP #### [facility] [address] [place], [place] [id number] Capital Project Engineer: Armen Madrigal MD Bilirubin [Mass/Vol] 0.2 mg/dL Low 0.3-1.2 [facility] Comment on above: Performed By: #### C DP, CP #### [facility] [address] [place], [place] [id number] Capital Project Engineer: Armen Madrigal MD BUN/CRE Ratio 22 High 9-20 [facility] Comment on above: Performed By: #### C DP, CP #### [facility] [address] [place], [place] [id number] Capital Project Engineer: Armen Madrigal MD Calcium [Mass/Vol] 8.8 mg/dL Normal 8.6-10.4 [facility] Comment on above: Performed By: #### C DP, CP #### [facility] [address] [place], [place] [id number] Capital Project Engineer: Armen Madrigal MD Chloride [Moles/Vol] 104 mmol/L Normal 98-107 [facility] Comment on above: Performed By: #### C DP, CP #### [facility] [address] [place] [address] Capital Project Engineer: Armen Madrigal MD CO2 [Moles/Vol] 19 mmol/L Low 20-31 [facility] Comment on above: Performed By: #### C DP, CP #### [facility] [address] [place], [place] [id number] Capital Project Engineer: Armen Madrigal MD Creatinine [Mass/Vol] 0.55 mg/dL Normal 0.50-0.90 [facility] Comment on above: Performed By: #### C DP, CP #### [facility] [address] [place] [address] Capital Project Engineer: Armen Madrigal MD GFR/1.73 sq M.predicted among [...] Performed By: #### C DP, CP #### [facility] [address] [place] [address] Capital Project Engineer: Armen Madrigal MD Glucose [Mass/Vol] 86 mg/dL Normal 70-99 [facility] Comment on above: Performed By: #### C DP, CP #### [facility] [address] [place], [place] [id number] Capital Project Engineer: Armen Madrigal MD Potassium [Moles/Vol] 3.8 mmol/L Normal 3.7-5.3 [facility] Comment on above: Performed By: #### C DP, CP #### [facility] [address] [place], [place] [id number] Capital Project Engineer: Armen Madrigal MD Protein [Mass/Vol] 6.0 g/dL Low 6.4-8.3 [facility] Comment on above: Performed By: #### C DP, CP #### [facility] [address] [place] [address] Capital Project Engineer: Armen Madrigal MD Sodium [Moles/Vol] 134 mmol/L Low 135-144 [facility] Comment on above: Performed By: #### C DP, CP #### [facility] [address] [place], [place] [id number] Capital Project Engineer: Armen Madrigal MD Urea nitrogen [Mass/Vol] 12 mg/dL Normal 6-20 [facility] Comment on above: Performed By: #### C DP, CP #### [facility] [address] [place], [place] [id number] Capital Project Engineer: Armen Madrigal MD Urinalysis, Routineon 2022 Bilirubin, SemiQt,Ur Negative Normal NEG [facility] Comment on above: Performed By: #### U A #### [facility] [address] [place] [address] Capital Project Engineer: Armen Madrigal MD Blood, Urine Negative Normal NEG [facility] Comment on above: Performed By: #### U A #### [facility] [address] [place] [address] Capital Project Engineer: Armen Madrigal MD Clarity (U) Clear Normal CLEAR [facility] Comment on above: Performed By: #### U A #### [facility] [address] [place] [address] Capital Project Engineer: Armen Madrigal MD Color (U) Yellow Normal YEL [facility] Comment on above: Performed By: #### U A #### [facility] [address] [place] [address] Capital Project Engineer: Armen Madrigal MD Comment Normal [facility] Comment on above: Performed By: #### U A #### [facility] [address] [place], [place] [phone] Capital Project Engineer: Armen Madrigal MD Glucose Ql (U) Negative Normal NEG [facility] Comment on above: Performed By: #### U A #### [facility] [address] [place] [address] Capital Project Engineer: Armen Madrigal MD Ketones Ql (U) TRACE Abnormal NEG [facility] Comment on above: Performed By: #### U A #### [facility] [address] [place] [address] Capital Project Engineer: Armen Madrigal MD Leukocyte esterase Test strip Ql (U) Negative Normal NEG [facility] Comment on above: Performed By: #### U A #### [facility] [address] [place] [address] Capital Project Engineer: Armen Madrigal MD Nitrite,Ur Negative Normal NEG [facility] Comment on above: Performed By: #### U A #### [facility] [address] [place] [address] Capital Project Engineer: Armen Madrigal MD PH,Ur 6.0 Normal 5.0-8.0 [facility] Comment on above: Performed By: #### U A #### [facility] [address] [place] [address] Capital Project Engineer: Armen Madrigal MD Protein Ql (U) Negative Normal NEG [facility] Comment on above: Performed By: #### U A #### [facility] [address] [place] [address] Capital Project Engineer: Armen Madrigal MD Spec. Griffith,Ur 1.025 Normal 1.005-1.030 [facility] Comment on above: Performed By: #### U A #### [facility] [address] [place], [place] [id number] Capital Project Engineer: Armen Madrigal MD Urobilinogen,Ur Normal Normal NORM [facility] Comment on above: Performed By: #### U A #### [facility] [address] [place], [place] [id number] Capital Project Engineer: Armen Madrigal MD RAD - MISCon 02-01-2023 RAD - MISC [id number] #1.00CD:127 Normal [facility] XR ANKLE RIGHT (MIN 3 VIEWS) on 01-29-2023 FINDINGS/IMPRESSION: 1. Compression fracture tip of the fibula no longer separately seen. 2. Anatomic alignment throughout. 3. Soft tissue swelling has resolved. [facility] EXAM: XR ANKLE RIGHT (MIN 3 VIEWS). HISTORY: Other closed fracture of proximal end of right fibula with routine healing, subsequent encounter. COMPARISON: 01/10/2023. [facility] Mauro Anton Jr., MD - 01/29/2023 EXAM: XR ANKLE RIGHT (MIN 3 VIEWS). HISTORY: Other closed fracture of proximal end of right fibula with routine healing, subsequent encounter. COMPARISON: 01/10/2023. IMPRESSION: FINDINGS/IMPRESSION: 1. Compression fracture tip of the fibula no longer separately seen. 2. Anatomic alignment throughout. 3. Soft tissue swelling has resolved. [employer] Phone: Radiology Study observation (narrative) [employer] Phone: XR ANKLE RIGHT (MIN 3 VIEWS) Ordered By: Mauro Anton on 01-29-2023 [employer] Phone: RAD - MISCon 01-11-2023 RAD - [facility] [id number] #1.00CD:127 Normal [facility] XR ANKLE RIGHT (MIN 3 VIEWS) on 01-10-2023 FINDINGS/IMPRESSION: 1. Very small nondisplaced incomplete fracture is questioned in the distal tip of the right fibula, with mild surrounding soft tissue swelling. 2. No other fracture, malalignment, significant arthritis or acute bony abnormality is seen. [facility] CLINICAL HISTORY: Right ankle pain and swelling since an injury yesterday. RIGHT ANKLE 3 VIEWS: [facility] João Amezquita MD - 01/10/2023 CLINICAL HISTORY: Right ankle pain and swelling since an injury yesterday. RIGHT ANKLE 3 VIEWS: IMPRESSION: FINDINGS/IMPRESSION: 1. Very small nondisplaced incomplete fracture is questioned in the distal tip of the right fibula, with mild surrounding soft tissue swelling. 2. No other fracture, malalignment, significant arthritis or acute bony abnormality is seen. [employer] Phone: Radiology Study observation (narrative) [employer] Phone: XR ANKLE RIGHT (MIN 3 VIEWS) Ordered By: João Amezquita on 01-10-2023 [employer] Phone: Ambulatory Visit Summaryon 0 12-08-2022 Ambulatory Visit Summary MEENA READ :1995 Visit Date:12/08/2022 Ambulatory Visit Instructions Your Diagnosis Gastroenteritis due to [place]-like virus Obesity due to excess calories BMI 31.0-31.9,adult Your Care Team Attending Physician - SUSAN BENAVIDEZ, Keyon Primary Care Physician - Charli LOPEZ This Is Your Medications List dicyclomine (dicyclomine 20 mg Tab) Contact prescribing physician if questions or concerns multivitamin, ( Multivitamins with Vitamin B Complex, Vitamin C, Minerals and L-Methylfolate oral capsule) ondansetron (Zofran ODT 4 mg Tab-Dis) Procedures Performed Cholecystectomy (2015), T and A education, Tonsillectomy. Discharge Vitals Temperature (Temporal Artery) 36.8 ?C Heart Rate (Peripheral) 84 Respiratory Rate 16 Blood Pressure 114/78 Height 170 cm Height 67 in Weight 90.5 kg Weight 199.1 lb BMI 31.31 What to do next You Need to Schedule the Following Appointments Follow Up with SUSAN BENAVIDEZ, KANDY Caban When: Only if needed Where: Medications What How Much When Instructions New dicyclomine (dicyclomine 20 mg Tab) 1 Tablets By Mouth 3 times a day Duration: 10 Days 30 to 60 minutes before meals Pickup at [facility] Unchanged multivitamin, ( Multivitamins with Vitamin B Complex, Vitamin C, Minerals and L-Methylfolate oral capsule) 1 Capsules By Mouth Every day Contact prescribing physician if questions or concerns Unchanged ondansetron (Zofran ODT 4 mg Tab-Dis) 1 Tablets By Mouth 3 times a day Contact prescribing physician if questions or concerns Pharmacy Information [facility]: [address], [place] [id number] [phone] Medications and Immunizations Administered Not Given influenza virus vaccine, inactivated, Postpone due to refusal SARS-CoV-2 mRNA (tozinameran 5y-11y) vac, Postpone due to refusal Allergies Percocet 5/325 (Hives, Rash) Vicodin (Hives) codeine (Hives, Rash) Problems Ongoing - Any problem that you are currently receiving treatment for. BMI 31.0-31.9,adult Gastroenteritis due to [place]-like virus Non-smoker Obesity due to excess calories [...] 1 years old. ? Live in a correction. ? Travel on cruise ships. What are [...] immune system (more content not included)... Normal [facility] ED Note-Physicianon 12-08-19 ED Note-Physician [id number] #1.00CD:127 Normal [facility] Family Medicine Office/Clini c Noteon 12-08-2022 Family [...] influenza and COVID. 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 Gastroenteritis due to [place]-like virus (A08.8: Other specified intestinal infections) Viral [...] day(s), # 30 tab(s), Refills(s) 0, Pharmacy: [facility], 170, cm, 12/08/22 12:00:00 EST, Height/Length Dosing, 90.5, kg, 12/08/22 12:00:00 EST, Weight Dosing Follow-up With When Contact Information Keyon BROWN MD [facility] Only if needed Additional Instructions: Patient Education Viral Gastroenteritis, Adult Problem List/Past Medical History Ongoing BMI 31.0-31.9,adult Gastroenteritis due to [place]-like virus Non-smoker Obesity due to excess calories [...] Alcohol Use, 05/26/2017 Employment/School 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 Normal [facility] Comment on above: Result Comment: Elec tronically Signed By: SUSAN BENAVIDEZ, Keyon\.br\Date and Time Signed: 12/08/22 12:20 [...] 1 years old. ? Live in a correction. ? Travel on cruise ships. 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 ? Make sure that all people in your household wash their hands well and often. ? Take prdi-spi-urqxvmu and prescription medicines only as told by [...] to person (more content not included)... Normal [facility] COVID-19, Rapidon 12-04-2022 SARS-CoV-2 (COVID-19) RNA WADE+probe Ql (Unsp spec) Not detected Not Detected [facility] Comment on above: Rapid NAAT: The specimen [...] management decisions. Fact sheet for Healthcare Providers: https://www.fda.gov/media/415078/download Fact sheet for Patients: https://www.fda.gov/media/074649/download Methodology: Isothermal Nucleic Acid Amplification Specimen Description .NASOPHARYNGEAL SWAB [facility] Rapid influenza A/B antigens on 12-04-2022 Flu A Antigen Negative NEGATIVE [facility] Comment on above: for Influenza A Anti gen Flu B Antigen Negative NEGATIVE [facility] Comment on above: for Influenza B Anti gen. [facility] C Urineon 09-06-2022 Bacteria identified Cx Nom (U) Microbiology PROCEDURE: Urine Culture [R1] SOURCE: U CleanCatch BODY SITE: COLLECTED DATE/TIME: 09/03/2022 14:49 EDT RECEIVED DATE/TIME: 09/04/2022 07:34 EDT START DATE/TIME: 09/04/2022 07:34 EDT FREE TEXT SOURCE: Neil Meza PA-C, PA-C, Neil FINAL REPORTS Final Report [] Verified Date/Time: 09/06/2022 11:12 EDT <10,000 cfu/ml Mixed skin contaminants Performing Locations R1: This test was performed at: [facility], [address] [place] [address], [facility] , , [facility] Comment on above: Performed By: #### 2 [id number], [id number] ####[facility] [id number] [place] [address] Coding Summary.on 09-04-2022 Coding Summary. [id number] Gh0bWw+PGhlYWQ+PE1FV SWwQ62crDQcoI2HC9sQG I8XTGACASKMUZ5CGI8fa IE9SAnhA3EuubDg BxfkqQGfTC54IYh2JIV2 pXjaYWbzhG7gzQAyB1q7 OrZfCH94zD32TPpgYITr IyM3ZtVvblluaUDn V5ocXfMipOItMwv+PHRh YmxlIHdpZHRoPScxMDAl GtPwnZckBT8lYt3jVKJw LWNvbGxhcHNlOiBj j2eiGGJzPQlvZB9agMra E1OhxEM9ELVav0r5Ak25 dHI+ASHfHHI4sAfaKQnl k110HtNww8bpEXH9 vTZaSRevNVT2Z34oz3S1 LPQnXQMsWQW2iML9wG3f kHxqtulrE5QknFGbYhK3 BFC5wPNdoF0lmEkr lpabfQ1xJcu+R02PSG6Q PVMOLW5NFvh0O6OmAmcc dHI+YP70LSEvCE77vCIc yPOrh8ojlHh5MwWu QYEcQRV5oYciDXbdk3Eo JDBhS81azYRdu7O6AZCr xSqlwYIjWiQhtLB4kQ6d UVkloinae6pvoaox Oqrrj1cfru11jO37Z82v JEqlMZAbBYM1KGJsRBUf wEleno3laD9eMh1+IDxj d8rpy0opvUj8IdEz LCHjmeUbjUqsVJI2c1Hw Rf53P6BjcWgml9ToKzn0 fy66hJFnn2B2iEO3AMkh QHRosF3zHTrvZiP3 WQGaEcVunW13kSQpYJef Cp5qcDgjiHrmNK2uEAFs xhrhCAOpjP5gPIRrqEDu wLryIV2dGQMitfde z445NvZvCCF1ZWUbpPSi W0ZeaX3sNzPgOQAlWXAl S9SqmFMsPLycM095XFzs HyJ4QSFupsIwF5Yq KFVtfYezKmB0e1J9Qs1G r0TqvleoPAJ3XUniFOWo EtJ1KgTxTuU9S3SbAyi7 FTJivRbySM8eK6Rn GJPfxjenyxihyUK9EKMt RRJhrF31mMUcHAtbAm3z r4L7i999ARFqWQSqxK60 Yn8syFkwODOyjBFK lN5opaens1vfztxfHtPr PHFkMXq7KKt7RNNpxPzb ZmCaIVI5MkZ2GUH4kSQb dT3hnXgbvbfmdV5t Oyc+D00caZ8vQEK1ZXG9 zljuPEKifbNgUT20JS93 L5XcEwhjeUXqoPY+PGRp imXvuSwyAR4lMqIk e2osh3AgOPmhT1DuKNXo XBnbMue9XQKoJTO6yZN4 bE7pXKIdUMhlr5R2hRT2 X8PrutSmnm9sz0kl WGApKQuoZ20hdFUkz3I6 JJBneZH5ANFwuTnpFsKy wE21Hhb+UDAvvGrxn6Gq Zxflw1bjv3godUe8 IjMwJSIgdmFsaWduPSJ0 d4PcLv99O68fPUrwDFJp BRZtURAiGVNubVfuza7a fE9jOt4+PGNvbCB3 dJU7dM3mGLTgPdB8QMxu Z266IqCfaPJxFqcix5eq g1pjlBr0BuRqGONkpjBk wYafFZV9c7YsZv76 O08qFNoaBBKoATVtTEBb LIDmdRjulj4egO9qLa2+ XT3ld9xegw94kN70eDD+ EWAgAOT7yVntQUgy ECUlcR0eEVhxGeK6QRMo CeSwoF60bGDiPVqrPu5n pAfubOmmRX6cJNNlwopp b979XqQdh0dpYKBk jDVyMJubBFR0A82uk9N1 FGVdOUWrSLI9vUB9rJ7a bGlnbjogbGVmdDsgdmVy lGbkKNuoYKmiA583 IHRvcDsnPlBhdGllbnQg RsIbVSc8E0UuFvn5PALy vBfxXG4onWZxKQaqOf0d uHyxeJttYY0wRQPm fcphp694JmIsv6fuAXLe jBJtCUqrKUT3B35bx9L9 LAHdUPQzKJA6rPQ2iD9k bGlnbjogbGVmdDsg izApzKsoBJfmJRlrP758 IHRvcDsnPkJpcnRoIERh fMS8YK24NY59zSLxk7I3 vQP6D9IaGWUisohd qxhilGE3VSZoDTMopP42 Wb0mhRqzTj8kEMAvQJR4 QNVpdDCdM0VagO5wHlDt ZHDwUPOtT2WefAVh ELsxV629ADnnTqK7ESWd wlAgF2SiFGOjyGhkDyM8 m6D0Hy7DT9N5BT86ZM76 tPMyh5E4dDD0C1Ke WGCgyhfyliiseUX1PUAl DIOtaT92Lj1twNsrOv3w MHMxYPO6PDHblHYfX0Ye zK2jFkFsFQIcPQEm I0KbmXIcMQniB211UUuf ImU2FAXviuUuP4FtPAMy mKdkUrA7x8G1Cj6KMHt7 RO91BY07sHAtw4J8 lSX6B5EeGOJacndabjyt lQA9HLWbYMNyjO51Ae6t hDszVy0jLDHyITC1KWOt wFOcA8GhgW8bRsYj ALKrHHMfC4BwrDGcSLog E929YJakLeI1HVXnloJm B5LrEISwwCezCgX7k8L7 Xl3UHOKpFZ12JFH8 qNF6NP52AN68S0BiMxld dGFibGU+PHRhYmxlIHdp ZHRoPScxMDAlJyBzdHls BA4bPe8eXYUhGGSi zGydpCHrFxLsp6eyASUy IHefUN7wmNcpK9VcjMP5 SGGgw0z9Oj84U83tX2Nf dXA+SCDcnHA3lWM1 pP3uIcDzCuI9UQubH686 XqYroNHgSqbrr7qdu7dr kWc1NxK4XTGetgPnwYge HXO0x4XmIu09H87c IHdpZHRoPSIxNSUiIHZh gNvfbc5shA7yXp7+PGNv kNC0kHX5gR4xVtDxAyK6 OZquZ441AkQuuKZf Pnmah0cow9gsvCd6UhBf UNAwgwKhuVedBBZ2j1Fc Oz83Y1MmuAudu5UvEsh0 sc44jGOhh1O5qLW0 P1LiQMXyinackUOepZst MX0dCIWqdukfXHNohR8k HHLdX1u2XhOpDsY5OUel H7NpsjS0FSQtcUVx GAxvFPD4B57ug0F3MYIo LOBoMSD9kHS5oD3wcWag bjogbGVmdDsgdmVydGlj ORsoLTlaR790BXGi kVfiWBSolH0sAIPpyZCl uAdpJP5gKNHboolhQnEC Ec7AIPTeHHrXYAuBMS5v RTwvdGQ+PHRkIHN0 kZtcPFqxPQTsjY1rBSBx U1g0MgNuIlO9RAnkW0Pz IZIgmqjeIc08bA3lGvPz KuK6IJmpV8LhguC0 UTDosUKuOHmuNFD8S55a p5J5FJPdITYgULA0kIB4 tW7vfDovynjbdACggKqp dmVydGljYWwtYWxp P356PORnrPxnZvFpMaQ6 XcD6ZVK4Q6DdBcd5SLMh wHlpES3lbYLoBFuiZz0w xWhwyDxoFT8lBAYu yzqeEQVdxO7yMYCawIHe kUehQU6dAEGqjxiap537 RgZnNXI5ZOVjdUIbC7Kb cX3jUhVrVLCiDCGw F7IjdXDsFUfvE128JMio AqD6MLEkypOpV7TvYTXe xFikTnB0g9X9Pd7tSiDK ZWFyczwvdGQ+PHRk QLH4aSejGGvjRUAbpD4c DDIsH5e0RxBmJqT2WUli U8DhUUDbxzxdQe99rP9t OoDdCaO9RVglJ9Zt ifX8ZOUokGLjJUycPIX0 M19zh4A2DTEfILXuMPB3 hQA7jH2saKrvjyrrbSUd dDsgdmVydGljYWwt AQupQ628KUEebOscPdDt bWFsZTwvdGQ+PHRkIHN0 cVgnSNldXUWysD7oCABa T5i2LdSqJvB2GKht R4VwJSYxiobdOy73uO7c LfRjBcT0KEttM9SgvpI5 PBZfpJIvQPczXKB7C99e x3H5LXSeANJcENB7 lBP4sW6ryGlyukqsxKWl dDsgdmVydGljYWwtYWxp Y632RIUqsBcvVpKfSGZv NL8hdLvrbNM+PC90 nb03U0EyGvexWch1NCPk EJS0mAW5rP0rNTVlRVfc j8J9zSZ5H3ZtsoWozy1l w9mjOFBnDVvzA49b gNBve1Z3QJMnbKV3AZOa wOipTlKbbB56Diw+PGNv yHmaw9VbFdyjz9nap6dh fNf0YkKoSFFltrGl mLgyDEA5m4IcAa29M75q IHdpZHRoPSIzMCUiIHZh xBhwiu3xgS9cXx2+PGNv dAF6iQI6oH1eSmLk TrY8TJsrB286IyKssQQc Ffuog9tuf0qalBa7KyNz LEJhrrDzrZqfDEX9e7Er Io20Q5KuuQfzx6Rh Oej3cl40eMFgy4U0tUV8 A3ZoUVAkcdphnJRadRzs HX2yREQfclziZQOpbA7f UWGlE6s2OfLxCbR2 MUoqZ5DtcaV7PNOlnUNl KYPgwQRCwR6smyacy9gg kldwSmQkDSNqBIh3LJf5 LWFsaWduOiBsZWZ0 HcV1PSO3rYZbdA6jnVcs vlbbvN4cCxj+SRb5i0qg xLGkVM9hmAV7ZR02PY54 uEThf5A8vNQ6O0Yl JIAizkgnmmubuLX2WUPq TNTzmU48Zo4hcGnkSx2p LVJaYPL0MYHjkWWeW5Jk wR9pMaRbLXFoBVUj K3WtbSIiTVikQ457UOol MoF6GSRctlLgU4QbCVUi yHxzMuD7d8T7Ze2ONK49 GG26KN54jZHdz3G6 yUC0G1EcPLQfnbmqvkgr bWC0TDXkVYTokW46Lz1w pCzeTy7mDDIvVVH6CSOn aLJbS8VsjA7lPsKs PVSqQLMwB7MnjOAnLKpn W803TWoeTdO0PMFzgqYg Y9JuABQiwXuoFfW0r2M7 Rl8ANp57AM36CO63 fYJmb5E2oPO2U7JpEHRz koevkiphmAR9OXMaIVSa lJ23Ce3akBddUo9lNAYi PFC7QJDilUYfI0Lq cB8lIlFgUUHxDQJuC4Od sSCxGDjiI601KEojAhA4 NJZvxxZdX7UuNOZeeSms XkC0p0Q6Kl8UBZom coq9H6RuXqgwuWG+PC90 JPTyNK02lRRtdDLhr8yt iVr0ChRfZWNcDPK8iYad KLahj7LfOOTdM19j bGFw (more content not included)... Normal [facility] Consent for Treatmenton 08-22 Consent for Treatment [id number] #[id number]:127 Normal [facility] Discharge Instructionson Discharge Instructions [id number] #1.00CD:127 Normal [facility] ED Clinical Summaryon 2021 ED Clinical Summary [place] [id number] ED Clinical Summary Person Information Name: MEENA READ Gayathri/[facility] Age: 26 Years : 1995 Sex: Female Language: Swedish PCP: Charli LOPEZ Marital Status: Single Visit [...] 09/03/2022 15:51:51 09/03/2022 15:51:51 09/03/2022 15:51:51 ADDRESS: [address] [place] [phone] PHYS DOC NOTES: MEDICAL INFORMATION: Prescriptions Given: New Medications [facility], [address], [place] [id number], [phone] ondansetron (Zofran ODT 4 mg Tab-Dis) 1 Tablets By Mouth 3 times a day. Refills: 0. Medications to Continue with No Changes Other Medications multivitamin, ( Multivitamins with Vitamin B Complex, Vitamin C, Minerals and L-Methylfolate oral capsule) 1 Capsules By Mouth every day. Refills: 0. PATIENT EDUCATION INFORMATION: Instructions: Nausea and Vomiting, Adult Follow up: With: Address: When: Charli CARLSON [address] [place] [address] [phone] Business (1) In 3 days 09/06/2022 DIAGNOSIS: Nausea & vomiting Normal [facility] ED Note-Physicianon 09-03-20 ED Note-Physician Basic Information Time Seen: Derrick BELLAMY Neil 09/03/2022 14:30 Chief Complaint patient c/o nausea [...] TID, # 15 tab(s), Refills(s) 0, Pharmacy: [facility], 170, cm, 09/03/22 14:31:00 EDT, Height/Length [...] CARLSON In 3 days 09/06/2022 EDT [address] [phone] Business (1) Additional Instructions: Patient Education Nausea and Vomiting, Adult Attestation Patient seen and evaluated by the physician computer lab assistant. Attending physician was present in the emergency department and supervised care. This visit was performed by both the physician and an APC. I performed all aspects of the MDM as documented. This report was transcribed using voice recognition software. Every effort was made to ensure accuracy, however, inadvertently computerized academic advisor mistakes may be present. Appropriate healthcare PPE [...] (09/03/22 14:49:0 (more content not included)... Normal [facility] Comment on above: Result Comment: Elec tronically [...] added (diluted fruit juice). ? Eat bland, jbrh-xn-bwmcwe foods in small amounts as you are able. These foods include bananas, applesauce, rice, lean meats, toast, and crackers. ? Avoid fluids that contain a lot of sugar or caffeine, such as energy drinks, sports drinks, and soda. ? Avoid alcohol. ? Avoid spicy or fatty foods. General instructions ? Take ekah-plp-ftejphb and prescription medicines only as told by your health care provider. ? Drink enough fluid to keep your urine pale yellow. ? Wash your hands often using soap and water. If soap and water are not available, use hand blooming mill supervisor. ? Make sure that all people in [...] and drinking to prevent dehydration. ? Take lqrn-uaq-zgdklca and prescription medicines only as told by [...] 11/08/2006 Document Revised: 03/01/2020 Document Reviewed: 04/18/2019 [employer] Patient Education ? 2019 [employer] Normal [facility] ED Patient Summaryon 022 ED Patient Summary [place] [id number] Patient Discharge Instructions Person Information Name: MEENA READ Age: 26 Years Arrival Date: 09/03/2022 14:27:10 Discharge Diagnosis: Nausea & vomiting Primary Care Physician: Charli LOPEZ Provider Information Primary Provider: Evan Moyer DO Advanced Suspension Cord Tier:Neil Meza PA-C The exam and treatment you received in the Emergency Department were for an urgent problem and are not intended as complete care. It is important that you follow up with a doctor, nurse practitioner, or physician?s computer lab assistant for ongoing care. If your symptoms become worse or you do not improve as expected and you are unable to reach your usual health care provider, you should return to the Emergency Department. We are available 24 hours a day. MEENA READ has been given the following list of patient education materials, prescriptions and follow-up instructions: Follow-up Instructions: With: Address: When: [place] [address] Business (1) In 3 days 09/06/2022 In the event that this physician does not participate in your insurance network, please consult with your insurance company to find a nearby participating provider. Patient Education Materials: Nausea and Vomiting, Adult A MESSAGE TO ALL PATIENTS REGARDING OPIOIDS PRESCRIPTION OPIOIDS: WHAT YOU NEED TO KNOW Prescription opioids can be used to help relieve xinvttro-xm-drvojw pain and are often prescribed following a [...] be struggling with addiction, tell your health day care center director and ask for guidance or call [facility]?S National Helpline at 7-299-587-JRWP. v Source: US Dep (more content not included)... Normal [facility] U BetaHcg Qualon 09-03-2022 HCG.beta subunit (U) [Moles/Vol] Negative Normal [facility] Comment on above: Performed By: #### 2 [id number], [id number], [id number] ####[facility] [address] [place] [address] UA With Cult Reflexon 2021 Bacteria LM Ql (Urine sed) 2+ /HPF Abnormal Trace [facility] Comment on above: Performed By: #### 2 [id number], [id number], [id number] ####[facility] [address] [place] [address] Bilirubin Ql (U) Negative Normal Negative [facility] Comment on above: Performed By: #### 2 [id number], [id number], [id number] ####[facility] [address] [place] [address] Clarity (U) CLEAR Normal Clear [facility] Comment on above: Performed By: #### 2 [id number], [id number], 5022944 ####[address] [address] Color (U) YELLOW Normal Yellow [facility] Comment on above: Performed By: #### 2 [id number], [id number], 6491149 ####[place] 8[address]757 Epithelial cells.squamous LM.HPF (Urine sed) [#/Area] 5-8 Normal 0-2 [facility] Comment on above: Performed By: #### 2 4638186, 22046076, 0279766 ####[facility] [address] [place], [place] [id number] Glucose Test strip (U) [Mass/Vol] Negative Normal Negative [facility] Comment on above: Performed By: #### 2 8702717, 78934936, 8510682 ####[facility] [address] [place] [address] Hemoglobin Ql (U) Negative Normal Negative [facility] Comment on above: Performed By: #### 2 [id number], [id number], 9248269 ####[facility] [address] [place] [address] Ketones (U) [Mass/Vol] Negative Normal Negative [facility] Comment on above: Performed By: #### 2 7303885, 79559424, 6502754 ####[facility] [address] [place] [address] Mastic.plasma/Lit hium.RBC (Bld) [Mass ratio] 0-3 Normal 0-3 [facility] Comment on above: Performed By: #### 2 7724278, 63673309, 8206367 ####[facility] [address] [place] [address] Mucus Ql (Urine sed) 1+ Normal [facility] Comment on above: Performed By: #### 2 2726083, 99713720, 3825151 ####[facility] [address] [place] [address] Nitrite Ql (U) Negative Normal Negative [facility] Comment on above: Performed By: #### 2 5418688, 82404038, 2549377 ####[address] [address] pH (U) 5.5 [pH] Invalid Interpretation Code 5.0-9.0 [facility] Comment on above: Performed By: #### 2 9523254, 88440008, 4635213 ####[address] [address] Protein (U) [Mass/Vol] Negative Normal Negative [facility] Comment on above: Performed By: #### 2 1689008, 93032103, 1672066 ####[place] [address]757 Specific gravity (U) [Rel density] >=1.030 Invalid Interpretation Code 1.005-1.030 [facility] Comment on above: Performed By: #### 2 1806664, 50122634, 6377338 ####[place] [address] Type of Urine collection method Clean Catch Normal [facility] Comment on above: Performed By: #### 2 7492940, 16212288, 0256643 ####[address] [address] Urobilinogen Qn (U) 0.2 {Elver'U}/dL Normal 0.0-1.0 [facility] Comment on above: Performed By: #### 2 3885518, 47682939, 9931802 ####[place] [address] WBC Auto Ql (U) Negative Normal Negative [facility] Comment on above: Performed By: #### 2 8968968, 20454430, 8676026 ####[facility] [address] [place] [address] WBC LM.HPF (Urine sed) [#/Area] 0-5 Normal 0-5 [facility] Comment on above: Performed By: #### 2 2680321, 97552560, 2986883 ####[facility] [address] [place] [address] XR WRIST LEFT (MIN 3 VIEWS)o n 06-19-2022 Normal left wrist. [facility] EXAM: XR WRIST LEFT (MIN 3 VIEWS) HISTORY: M25.532. 26-year-old female, left wrist pain. COMPARISON: None. TECHNIQUE: Three views left wrist. FINDINGS: The radiocarpal joint and wrist are normal. Normal scapholunate distance. No erosion or chondrocalcinosis. [facility] Mauro Anton Jr., MD - 06/19/2022 EXAM: XR WRIST LEFT (MIN 3 VIEWS) HISTORY: M25.532. 26-year-old female, left wrist pain. COMPARISON: None. TECHNIQUE: Three views left wrist. FINDINGS: The radiocarpal joint and wrist are normal. Normal scapholunate distance. No erosion or chondrocalcinosis. IMPRESSION: Normal left wrist. 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 pain has been constant for about 1 week now. History of Present Illness Pt presents today to [facility] care. Previous pt of [facility] in [place]. Concerned today about left wrist pain which started about 1 yr ago; pain has worsened over the last week. 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 Carries everything in her left hand. Right handed. Pain location: medial martinez hand, radiating to wrist Pain description: shooting Pain rated: 2/10, 7/10 with certain movements. 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 Negative Tinels and DeQuervians. + Phalens. Sous Chef strength equal. Neurologic: Cranial nerves II-XII grossly intact. Skin: [place], warm and dry. No rashes, ulcerations, or [...] day(s), # 30 tab(s), Refills(s) 1, Pharmacy: [facility], 170, cm, 06/01/22 12:55:00 EDT, Height/Length Dosing, 91.3, kg, 06/01/22 12:55:00 EDT, Weight Dosing [facility] External Ambulatory Referral 2. BMI 31.0-31.9,adult (Z68.31: Body mass index [BMI] 31.0-31.9, adult) The standard range for ages 18 and older is >=18.5 and < 25 kg/m2. Your BMI today was above this range, this falls in the obese category and there are medical benefits to weight loss. We can offer counselling, referral, and/or medical support in addressing this problem. Visit [email or web address] for useful information to help make better [...] unspecified fo (more content not included)... Normal [facility] Comment on above: Result Comment: Elec tronically Signed By: Siddhartha CRUZ, Meena Adame.br\Date and Time Signed: 06/01/22 13:16 EDT Patient [...] height. This can be done either in Swedish (U.S.) or metric measurements. Note that charts are available to help you find your BMI quickly and easily without having to do these calculations yourself. To calculate your BMI in Swedish ([place].S[place] measurements, your health care provider will: [...] problems. ? BMI can be measured using Swedish measurements or metric measurements. ? To interpret [...] 07/20/2005 Document Revised: 10/21/2018 Document Reviewed: 09/21/2018 Elsevier Patient Education ? 2019 [employer]. Orthopedics Carpal Tunnel Syndrome Carpal tunnel syndrome [...] Having a job, such as being a netezza developer or a agency cashier, that requires you to repeatedly move [...] and midd (more content not included)... Normal [facility] Physician Referralon 022 Physician Referral [id number] #1.00CD:127 Normal [facility] Vital Signs Date Time Vital Sign Value Performing Clinician Ayad lozoya 01-10-2023 14:29-0500 Body height 165.1 cm Fei Canales MD Work Phone: [employer] 01-10-2023 14:29-0500 Body mass index (BMI) [Ratio] 34.35 kg/m2 Fei Canales MD Work Phone: [employer] 01-10-2023 14:29-0500 Body temperature 98.49 [degF] Fei Canales MD Work Phone: [employer] 01-10-2023 14:29-0500 Body weight 93.62 kg Fei Canales MD Work Phone: [employer] 01-10-2023 14:29-0500 Diastolic blood pressure 79 mm[Hg] Fei Canales MD Work Phone: [employer] 01-10-2023 14:29-0500 Heart rate 75 /min Fei Canales MD Work Phone: [employer] 01-10-2023 14:29-0500 Respiratory rate 16 /min Fei Canales MD Work Phone: [employer] 01-10-2023 14:29-0500 SaO2% (BldA) [Mass fraction] 99 % Fei Canales MD Work Phone: [employer] 01-10-2023 14:29-0500 Systolic blood pressure 140 mm[Hg] Fei Canales MD Work Phone: [employer] 12-08-2022 11:51-0500 Blood Pressure Location Keyon BROWN [facility] 12-08-2022 11:51-0500 Body temperature 98.24 [degF] Cordellorin BROWN [facility] 12-08-2022 11:51-0500 Diastolic blood pressure 78 mm[Hg] Keyon BROWN [facility] 12-08-2022 11:51-0500 Heart rate 84 /min Garfielder BROWN [facility] 12-08-2022 11:51-0500 Respiratory rate 16 /min Garfielder BROWN [facility] 12-08-2022 11:51-0500 SaO2% (BldA) [Mass fraction] 100 % Keyon BROWN [facility] 12-08-2022 11:51-0500 Systolic blood pressure 114 mm[Hg] Keyon BROWN [facility] [place] 12-04-2022 16:32-0500 Body mass index (BMI) [Ratio] 33.66 kg/m2 Jason [facility] MD [facility] 12-04-2022 16:32-0500 Body temperature 98.49 [degF] Jason Tracy MD Work Phone: [facility] [employer] 12-04-2022 16:32-0500 Body weight 91.76 kg Jason Tracy MD Work Phone: [facility] [employer] 12-04-2022 16:32-0500 Diastolic blood pressure 75 mm[Hg] Jason Tracy MD Work Phone: [facility] [employer] 12-04-2022 16:32-0500 Heart rate 91 /min Jason Tracy MD Work Phone: [facility] [employer] 12-04-2022 16:32-0500 Respiratory rate 16 /min Jason Tracy MD Work Phone: [facility] [employer] 12-04-2022 16:32-0500 SaO2% (BldA) [Mass fraction] 99 % Jason Tracy MD [facility] 12-04-2022 16:32-0500 Systolic blood pressure 123 mm[Hg] Jason Tracy MD Work Phone: [facility] [employer] 06-01-2022 12:50-0400 Blood Pressure Location [facility] 06-01-2022 12:50-0400 Body temperature 96.98 [degF] [facility] 06-01-2022 12:50-0400 Diastolic blood pressure 60 mm[Hg] [facility] 06-01-2022 12:50-0400 Heart rate 88 /min [facility] 06-01-2022 12:50-0400 SaO2% (BldA) [Mass fraction] 97 % [facility] 06-01-2022 12:50-0400 Systolic blood pressure 122 mm[Hg] [facility] 09-14-2021 10:15-0400 Body mass index (BMI) [Ratio] 31.62 kg/m2 Keyon Wilkinson MD Work Phone: [employer] Work Phone: 09-14-2021 10:15-0400 Body weight 86.18 kg Keyon Wilkinson MD Work Phone: [employer] Work Phone: 09-14-2021 10:14-0400 Body height 165.1 cm Keyon Wilkinson MD Work Phone: [employer] Work Phone: 09-14-2021 10:14-0400 Body temperature 98.2 [degF] Keyon Wilkinson MD Work Phone: [employer] Work Phone: 09-14-2021 10:14-0400 Diastolic blood pressure 93 mm[Hg] Keyon Wilkinson MD Work Phone: [employer] Work Phone: 09-14-2021 10:14-0400 Heart rate 91 /min Keyon Wilkinson MD Work Phone: [employer] Work Phone: 09-14-2021 10:14-0400 Respiratory rate 20 /min Keyon Wilkinson MD Work Phone: [employer] Work Phone: 09-14-2021 10:14-0400 SaO2% (BldA) [Mass fraction] 96 % Keyon Wilkinson MD Work Phone: [employer] Work Phone: 09-14-2021 10:14-0400 Systolic blood pressure 131 mm[Hg] Keyon Wilkinson MD Work Phone: [facility] [employer] Work Phone: Encounters Encounter Date Encounter Type Care Provider Facility Start: 03-04-2024 End: 03-05-2024 ambulatory YULIAMallorie AGUILAR [facility] Start: 03-04-2024 Emergency department patient visit [facility] Start: 12-08-2023 End: 12-08-2023 ambulatory YULIA MEERA Not Available Start: 10-25-2023 End: 10-25-2023 ambulatory YULIA MEERA Not Available Start: 10-18-2023 End: 10-18-2023 ambulatory YULIA MEERA Not Available Start: 10-07-2023 End: 10-07-2023 ambulatory YULIA MEERA Not Available Start: 07-19-2023 End: 07-19-2023 Emergency department patient visit [facility] Start: 05-05-2023 End: 05-05-2023 Emergency department patient visit [facility] Start: 04-09-[address] NONE LISTED REQUEST Facility: Start: 01-29-2023 End: 01-31-2023 Subsequent hospital visit by physician Neeru Additional Xray At [facility] Comment on above: Other closed fractur e of proximal end of right fibula with routine healing, subsequent encounter Start: 01-29-2023 End: 01-31-2023 Subsequent hospital visit by physician Keyon Brown MD Work Phone: [facility] Start: 01-10-2023 End: 01-10-2023 Emergency department patient visit Fei Canales MD Work Phone: [facility] ED Comment on above: Injury of right ankl e, initial encounter (Primary Dx) Start: 12-08-2022 End: 12-09-2022 ambulatory Keyon BROWN Facility:[facility] Start: 12-08-2022 End: 12-08-2022 Patient encounter procedure Keyon BROWN [facility] [place] Start: 12-04-2022 End: 12-04-2022 Emergency department patient visit Jason Tracy MD Work Phone: [facility] ED Comment on above: Viral illness (Prima ry Dx) Start: 09-03-2022 End: 09-03-2022 Emergency department patient visit Evan Moyer Facility:[facility] Start: 06-19-2022 End: 06-21-2022 Subsequent hospital visit by physician [facility] Additional Xray At [facility] Radiology Comment on above: Left wrist pain Start: 06-01-2022 End: 06-02-2022 ambulatory SERGEANT OF CORRECTIONS Meena Carl Facility:[facility] Start: 06-01-2022 End: 06-01-2022 Patient encounter procedure Meena Carl [facility] Start: 05-28-2022 ambulatory SERGEANT OF CORRECTIONS Meena Carl Faci lity:[facility] Start: 09-14-2021 End: 09-14-2021 Emergency department patient visit Keyon Wilkinson MD Work Phone: [facility] ED Comment on above: Subacute bronchitis (Primary Dx) Procedures Date Procedure Procedure Detail Performing Clinician Start: 01-29-2023 Radex ankle complete minimum 3 views Israel Rehman MD Work Phone: Start: 01-10-2023 Radex ankle complete minimum 3 views Fei Canales MD Work Phone: Start: 12-04-2022 Iaadiadoo influenza Deniz gabriela Tracy MD Work Phone: Start: 12-04-2022 COVID-19, RAPID Jason Tracy MD Work Phone: Start: 06-19-2022 Radex wrist complete minimum 3 views Israel Rehman MD Work Phone: Start: 11-22-2014 Cholecystectomy Meena Carl Tonsillectomy Meena Carl Tonsils and adenoids postoperative education Meena Carl Plan of Treatment Date Care Activity Detail Author Start: 07-23-2022 Influenza vaccination Flu vaccine (# 1) [facility] Start: 06-22-2022 Influenza vaccination Flu vaccine (# 1) [facility] Start: 07-23-2021 Influenza vaccination Flu vaccine (# 1) [facility] [employer] Work Phone: Start: 08-02-2017 DTaP/Tdap/Td vaccine (2 - Td or Tdap) DTaP/Tdap/Td vaccine (2 - Td or Tdap) [facility] Start: 2015 Screening for malign ant neoplasm of cervix Pap smear [facility] Start: 2013 DTaP/Tdap/Td vaccine (1 - Tdap) DTaP/Tdap/Td vaccine (1 - Tdap) [facility] [employer] Work Phone: Start: 2012 Hepatitis C screening Hepatitis C sc reen [facility] Start: 2009 HIV screening HIV screen [facility] Start: 2006 COVID-19 Vaccine (1) COVID-19 Vaccin e (1) [facility] [employer] Work Phone: Start: 2006 Depression Screen Depression Screen [facility] Start: 2005 HPV vaccine (1 - 2-d ose series) HPV vaccine (1 - 2-dose series) [facility] Phone: Start: 1998 Varicella vaccine (2 of 2 - 2-dose childhood series) Varicella vaccine (2 of 2 - 2-dose childhood series) [facility] Start: 1995 Varicella vaccine (1 of 2 - 2-dose childhood series) Varicella vaccine (1 of 2 - 2-dose childhood series) [facility] Phone: Start: 05-30-1995 COVID-19 Vaccine (#1) COVID-19 Vacci ne (#1) [facility] Start: 1994 Hepatitis C screening Hepatitis C sc reen [facility] Phone: Immunizations Immunization Date Immunization Notes Care Provider Jaci masterson 02-16-2008 Hep A, unspecified formulation Meena Carl [facility] 08-02-2007 Hep A, unspecified formulation Meena Carl [facility] 08-02-2007 meningococcal ACWY vaccine, unspecified formulation Meena Carl [facility] 08-02-2007 tetanus toxoid, reduced diphtheria toxoid, and acellular pertussis vaccine, adsorbed Meena Carl [facility] 08-19-2000 DTaP, unspecified formulation Meena Carl [facility] 08-19-2000 measles, mumps and rubella virus vaccine Meena Carl [facility] 10-10-1997 varicella virus vaccine Meena Carl [facility] 03-09-1996 DTaP, unspecified formulation Meena Carl [facility] 03-09-1996 Hib, unspecified formulation Meena Carl [facility] 03-09-1996 measles, mumps and rubella virus vaccine Meena Carl [facility] 06-11-1995 DTP-Hib Meena Carl [facility] 06-11-1995 hepatitis B vaccine, pediatric or pediatric/adolescent dosage Meena Carl [facility] 04-05-1995 DTP-Hib Meena Carl [facility] 02-01-1995 DTP-Hib Meena Carl [facility] 01-04-1995 hepatitis B vaccine, pediatric or pediatric/adolescent dosage Meena Carl [facility] 1994 hepatitis B vaccine, pediatric or pediatric/adolescent dosage Meena Carl [facility] NEGATED: Highlighted row has not occurred!12-08-2022 influenza virus vaccine, unspecified formulation Keyon BROWN [facility] [place] NEGATED: Highlighted row has not occurred!12-08-2022 SARS-CoV-2 mRNA (lauren 5y-11y) vaccine Keyon BROWN [facility] [place] Payers Date Payer Category Payer Unknown [id number] 1994 Unknown [id number] 2.16.8 [id number] 1994 Unknown [id number] 2.16.8 [id number] 1994 Unknown [id number] 2.16.8 [id number] 1994 Unknown [id number] 2.16.8 [id number] 1994 Unknown [id number] 2.16.84 [id number] 1994 Unknown [id number] 2.16.84 [id number] 1994 Unknown [id number] 2.16.840 .[id number] 1994 Unknown [id number] 2.16.840 .[id number] 1994 Unknown [id number] 2.16.840 .[id number] 1994 Unknown [id number] 2.16.8 [id number] 1994 Unknown [id number] 2.16.8 [id number] 1994 Unknown [id number] 2.16.8 [id number] 1994 Unknown [id number] 2.16.8 [id number] 1959 Unknown [id number] 1. [id number] Social History Date Type Detail Facility Start: 05-31-2018 End: 09-14-2021 Tobacco smoking status NHIS Never smoker [facility] Phone: Start: 05-31-2018 End: 09-14-2021 Tobacco use and exposure Never used [employer] Start: 09-14-2021 End: 01-10-2023 Alcohol intake Current non-drinker of alcohol (finding) [facility] Phone: Start: 1995 Sex Assigned At Not on file [facility] [employer] Phone: Start: 11-24-2022 End: 01-10-2023 Exposure to SARS-CoV-2 (event) Not sure [employer] Tobacco smoking status Never [facility] Sex Assigned At Female [facility] Start: 12-04-2022 End: 01-10-2023 History SDOH Alcohol Frequency 1 [facility] [employer] [employer] Work Phone: Functional Status Date Assessment Result Facility 12-08-2022 Functional Status N/A [facility] [place] 06-01-2022 Functional Status N/A [facility] Clinical Notes 06-01-2022 to 01-10-2023 Discharge InstructionsAttachmentsDischarge InstructionsAttachments Note Date & Type Note Facility 01-10-2023 Hospital Discharg e instructions Fei Canales MD - 01/10/2023 3:17 PM EST There was a possible concern for fracture of the fibula. Please follow-up with Dr. Rehman for further evaluation and be sure to use crutches and be nonweightbearing until then. The following attachments cannot be sent through Care Everywhere.Ankle Sprain (Swedish)documented in this encounter SALO BASSETT [employer] Work Phone: 12-08-2022 Hospital Discharg e instructions Patient [...] than 2 years old. Live in a correction. Travel on cruise ships. 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 Make sure that all people in your household wash their hands well and often. Take xycd-lny-fbrpiws and prescription medicines only as told by [...] and water are not available, use hand blooming mill supervisor. This information is not intended to replace advice given to you by your health care provider. Make sure you discuss any questions you have with your health care provider. Document Released: 11/08/2006 Document Revised: 04/26/2020 Document Reviewed: 09/13/2019 [employer] Patient Education 2020 [employer]. Follow Up Care 12/08/2022 09:17:52 With:SUSAN BENAVIDEZ, KANDY Caban Address: When: only if needed [facility] [place] 12-04-2022 Hospital Discharg e instructions Jason Tracy MD - 12/04/2022 4:33 PM EST Increase fluids at home. Take Zofran for any nausea. Try Imodium/loperamide for diarrhea. Call primary care doctor for close follow-up. Use Tylenol or Motrin to keep fever down. The following attachments cannot be sent through Care Everywhere.Viral Infections (Swedish)documented in this encounter [facility] Work Phone: 06-01-2022 Hospital Discharg e [...] height. This can be done either in [place] ([place] or metric measurements. Note that charts are available to help you find your BMI quickly and easily without having to do these calculations yourself. To calculate your BMI in [place] ([place] measurements, your health care provider will: [...] medical problems. BMI can be measured using Swedish measurements or metric measurements. To interpret your [...] 07/20/2005 Document Revised: 10/21/2018 Document Reviewed: 09/21/2018 [employer] Patient Education 2020 [employer]. 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 General instructions Take vpxx-omk-nnywcfu and prescription medicines only as told by [...] 11/05/2001 Document Revised: 03/17/2019 Document Reviewed: 03/17/2019 [employer] Patient Education [email or web address] Follow Up Care 05/28/2022 08:22:05 With:Meena Carl CNP Address: When: only if needed [facility] Evaluation + Plan note [facility] Evaluation note Diagnosis Subacute bronchitis- Primary Acute bronchitis documented in this encounter [facility] Phone: evalcsdskh note* Diagnosis Left wrist pain Pain in joint, forearm documented in this encounter [facility] [employer] Phone: evaleujpah note* Diagnosis Viral illness- Primary Unspecified viral infection, in conditions classified elsewhere and of unspecified site documented in this encounter [facility] [employer] Phone: evalyzeupq note* Diagnosis Injury of right ankle, initial encounter- Primary documented in this encounter [facility] [employer] Phone: evalezxoif note* Diagnosis Other closed fracture of proximal end of right fibula with routine healing, subsequent encounter documented in this encounter [facility] [employer] Phone: Hospital course Narrative No data available for this section [facility] Hospital Discharge instructions* Attachments The following attachments cannot be sent through Care Everywhere. 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 ACP-Advance Directive ACP-Power of Bacteriologist Dairy Summary Purpose Family History No Family History [...] Care Team (unrecognized sect ion and content) Inside Sales Representative Relationship Specialty Start Date End Date Keyon Brown MD [address] [place] [address] PCP - General Family Medicine 12/04/22 Inside Sales Representative Relationship Specialty Start Date End Date Keyon Brown MD [address] [place] [address] PCP - General Family Medicine 12/04/22 Inside Sales Representative Relationship Specialty Start Date End Date Keyon Brown MD [address] [place] [address] [place] [address] PCP - General Family Medicine 12/04/22 INFORMATION SOURCE (unrecogn ized section and content) DATE CREATED AUTHOR 02/01/[address] [facility] DATE CREATED AUTHOR AUTHOR'S ORGANIZ ATION 04/01/2023 [facility] DATE CREATED AUTHOR AUTHOR'S ORGANIZ ATION 12/09/2023 [facility] DATE CREATED AUTHOR AUTHOR'S ORGANIZ ATION 03/05/2024 Kirsty charles FOR RECORDS PERTAINING TO PATIENTS WHO ARE [...] BE BASED ON THE PRIMARY CLINICAL RECORDS. [employer] provides no warranty or guarantee of the accuracy or completeness of information in this document.
[2024-03-06 12:13] LABS: HCG Quantitative 1636 mIU/mL
== END 2024-03-06 10:36 | disposition home or self-care (01) ==
LOC: LAB 10:36
PROVIDERS: Visit Provider Obstetrics & Gynecology
DX: N92.6 Irregular menstruation, unspecified (principal); O46.90 Antepartum hemorrhage, unspecified, unspecified trimester
CPT/HCPCS: 36415; 76817; 84702

== ENCOUNTER 2024-03-13 08:56 | Outpatient (OUT) | payer OTHER, SELFPAY ==
[2024-03-13 11:09] LABS: HCG Quantitative 123 mIU/mL; Total Protein 6.9 g/dL (6.4-8.2)
[2024-03-14 15:08] LABS: Anticardiolipin Ab, IgG, Qn <9 GPL U/mL (0-14)
[2024-03-15 00:07] LABS: Antithrombin Activity 106 % (75-135)
[2024-03-15 05:07] LABS: Protein C-Functional 115 % (73-180); Protein S, Free 95 % (61-136); Protein S, Total 71 % (60-150)
[2024-03-16 05:08] LABS: Beta-2 Glycoprotein I Ab, IgA <9 (0-25); Beta-2 Glycoprotein I Ab, IgG <9 (0-20); Beta-2 Glycoprotein I Ab, IgM <9 (0-32)
== END 2024-03-13 08:57 | disposition home or self-care (01) ==
LOC: LAB 08:57
PROVIDERS: Visit Provider Obstetrics & Gynecology
DX: O03.9 Complete or unspecified spontaneous abortion without complication (principal); Z51.89 Encounter for other specified aftercare; D69.9 Hemorrhagic condition, unspecified
CPT/HCPCS: 36415; 81241; 84155; 84702; 85300; 85303; 85305; 85306; 85613; 86146; 86147

== ENCOUNTER 2024-03-20 08:05 | Outpatient (OUT) | payer OTHER, SELFPAY ==
--- OUTSIDE RECORDS SUMMARY | 2024-03-20 08:13 | XMS_ITS | CCD ---
Author Organization [facility] Care Team Providers Care Sales Special Agent Name Role Phone Unavailable Primary Care Provider UnavailCharli Browne Primary Care Physician [phone] Kevin BENAVIDEZ, Keyon Brandon Primary Care Provider [phone]( [phone] ANTHONY Carl Attending UnavailKeyon Lockett Unavailable Evan Moyer Attending Unavailable LISHA, DR DRUMMOND LISTED Consulting Unavaila [facility], DR NICOLE Primary Care Unavailable MEERA ., DR BENDER Attending Unavailable MEERA ., DR BENDER Admitting Unavailable KEYON BROWN Primary Care Unavailable KEYON BROWN Primary Care Unavailable OTTO INGRAM Attending Unavailable KEYON BROWN Primary Care Unavailable OTTO INGRAM Attending Unavailable YULIA ESTES JEFF Referring Unavailable KEYON BROWN Primary Care Unavailable YULIA ESTES Attending Unavailable YULIA ESTES Attending Unavailable YULIA ESTES Attending Unavailable YULIA ESTES Attending Unavailable YULIA ESTES Attending Unavailable Allergies Allergy Classification Reported Allergen(s) Allergy Type Date of Onset Reaction(s) Facility (6 sources) Acetaminophen / HYDROcodone Drug Allergy 7 Rash [facility] (6 sources) Acetaminophen / oxyCODONE Drug Allergy 6 Rash [facility] (9 sources) Codeine; Translations: [codeine] Drug Allergy 7 Rash, Cutaneous eruption (morphologic abnormality) [facility] (3 sources) Acetaminophen / HYDROcodone; Translations: [acetaminophen-hy drocodone] Drug Allergy Hives [facility] (3 sources) Acetaminophen / oxyCODONE; Translations: [acetaminophen-ox ycodone] Drug Allergy Cutaneous eruption (morphologic abnormality) [facility] (1 source) Acetaminophen / HYDROcodone Drug Allergy [facility] (1 source) Acetaminophen / oxyCODONE Drug Allergy [facility] (1 source) Codeine Drug Allergy [facility] Medications Current Medications Medication Drug [...] extended release oral tablet (6 sources) Uncompetitive N-dclmdm-V-aspartate Receptor Antagonist, Sigma-1 Agonist Start: 09-14-2021 take 1 tablet by mouth every twelve hours as needed for cough Dextromethorphan- guaiFENesin 60-1200 MG TB12 Take 1 tablet by mouth every 12 hours as needed (COUGH CONGESTION) 28 tablet 0 09/14/2021 Active dextromethorphan hydrobromide 3 mg/ml / promethazine hydrochloride 1.25 mg/ml oral solution (6 sources) Phenothiazine, Uncompetitive O-imasfa-X-aspartate Receptor Antagonist, Sigma-1 Agonist Start: 05-31-2018 promethazine-dext [...] day(s), # 30 tab(s), Refills(s) 1, Pharmacy: [facility], 170, cm, 06/01/22 12:55:00 EDT, Height/Length [...] TID, # 15 tab(s), Refills(s) 0, Pharmacy: [facility], 170, cm, 09/03/22 14:31:00 EDT, Height/Length [...] 03-04-2024 HCG, Quant 3680.0 mIU/mL High <5 [facility] Comment on above: Result Comment: Non-preg premeno <=5 Postmeno <=8 Male <=3 If HCG results do not concur with clinical observations, additional testing to confirm results is recommended. Performed By: #### B HCG #### [facility] [address] [place], [place] [phone] [employer] Kiss Maker: Armen Madrigal MD CBC with Diffon 05-05-2023 Abs. Basophil 0.00 k/uL Normal 0.0-0.2 [facility] Comment on above: Performed By: #### C DP, CP #### [facility] [address] [place] [address] [employer] Kiss Maker: Armen Madrigal MD Abs.Neutrophil (Seg) 5.30 k/uL Normal 2.5-7.[address] [facility] Comment on above: Performed By: #### C DP, CP #### [facility] [address] [place] [address] [employer] Fo[employer] Kiss Maker: Armen Madrigal MD Auto Diff Performed YES Normal [facility] Comment on above: Performed By: #### C DP, CP #### [facility] [address] [place] [address] [employer] Kiss Maker: Armen Madrigal MD Basophils/100 WBC (Bld) 1 % Normal 0-[address] [facility] Comment on above: Performed By: #### C DP, CP #### [facility] [address] [place] [phone] [employer] Kiss Maker: Armen Madrigal MD Eosinophils (Bld) [#/Vol] 0.00 10*3/uL Normal 0.0-0.[address] [facility] Comment on above: Performed By: #### C DP, CP #### [facility] [address] [place] [phone] [employer] Kiss Maker: Armen Madrigal MD Eosinophils/100 WBC (Bld) 1 % Normal 0-[address] [facility] Comment on above: Performed By: #### C DP, CP #### [facility] [address] [place] [phone] [employer] Kiss Maker: Armen Madrigal MD Erythrocyte distribution width (RBC) [Ratio] 13.8 % Normal 12.1-15.[address] [facility] Comment on above: Performed By: #### C DP, CP #### [facility] [address] [place] [phone] [employer] Kiss Maker: Armen Madrigal MD Hematocrit (Bld) [Volume fraction] 34.4 % Low 36-[address] [facility] Comment on above: Performed By: #### C DP, CP #### [facility] [address] [place] [phone] [employer] Kiss Maker: Armen Madrigal MD Hemoglobin (Bld) [Mass/Vol] 11.9 g/dL Low 12.0-16.[address] [facility] Comment on above: Performed By: #### C DP, CP #### [facility] [address] [place] [address] [employer] Foam Kiss Maker: Armen Madrigal MD Lymphocytes (Bld) [#/Vol] 1.90 10*3/uL Normal 1.0-4.[address] [facility] Comment on above: Performed By: #### C DP, CP #### [facility] [address] [place] [address] [employer] Fo[employer] Kiss Maker: Armen Madrigal MD Lymphocytes/100 WBC (Bld) 25 % Normal 15-[address] [facility] Comment on above: Performed By: #### C DP, CP #### [facility] [address] [place] [address] [employer] Foam Kiss Maker: Armen Madrigal MD MCH (RBC) [Entitic mass] 29.3 pg Normal 26-[address] [facility] Comment on above: Performed By: #### C DP, CP #### [facility] [address] [place] [address] [employer] Fo[employer] Kiss Maker: Armen Madrigal MD MCHC (RBC) [Mass/Vol] 34.6 g/dL Normal 31-[address] [facility] Comment on above: Performed By: #### C DP, CP #### [facility] [address] [place] [address] [employer] Fo[employer] Kiss Maker: Armen Madrigal MD MCV (RBC) [Entitic vol] 84.8 fL Normal 80-[address] [facility] Comment on above: Performed By: #### C DP, CP #### [facility] [address] [place] [address] [employer] Foam Kiss Maker: Armen Madrigal MD Monocytes (Bld) [#/Vol] 0.50 10*3/uL Normal 0.0-1.[address] [facility] Comment on above: Performed By: #### C DP, CP #### [facility] [address] [place], [place] [phone] Sea Foam Kiss Maker: Armen Madrigal MD Monocytes/100 WBC (Bld) 6 % Normal 4-[address] [facility] Comment on above: Performed By: #### C DP, CP #### [facility] [address] [place], [place] [phone] Sea Foam Kiss Maker: Armen Madrigal MD Neutrophil (Seg) 67 % Normal 47-75 [facility] Comment on above: Performed By: #### C DP, CP #### [facility] [address] [place], [place] [phone] Sea Fo[employer] Kiss Maker: Armen Madrigal MD Platelets (Bld) [#/Vol] 191 10*3/uL Normal 140-[address] [facility] Comment on above: Performed By: #### C DP, CP #### [facility] [address] [place], [place] [phone] Sea Fo[employer] Kiss Maker: Armen Madrigal MD RBC (Bld) [#/Vol] 4.06 10*6/uL Normal 4.0-5.[address] [facility] Comment on above: Performed By: #### C DP, CP #### [facility] [address] [place], [place] [phone] Sea Fo[employer] Kiss Maker: Armen Madrigal MD WBC (Bld) [#/Vol] 7.7 10*3/uL Normal 3.5-11.[address] [facility] Comment on above: Performed By: #### C DP, CP #### [facility] [address] [place], [place] [phone] Sea Fo[employer] Kiss Maker: Armen Madrigal MD Comp Metabolic Profon 2022 Albumin [Mass/Vol] 3.4 g/dL Low 3.5-5.[address] [facility] Comment on above: Performed By: #### C DP, CP #### [facility] [address] [place], [place] [phone] [employer] Fo[employer] Kiss Maker: Armen Madrigal MD Alkaline Phos 44 U/L Normal 35-104 [facility] Comment on above: Performed By: #### C DP, CP #### [facility] [address] [place], [place] [phone] Sea Fo[employer] Kiss Maker: Armen Madrigal MD ALT [Catalytic activity/Vol] 5 U/L Normal 5-[address] [facility] Comment on above: Performed By: #### C DP, CP #### [facility] [address] [place], [place] [phone] Sea Fo[employer] Kiss Maker: Armen Madrigal MD Anion gap [Moles/Vol] 11 mmol/L Normal 9-[address] [facility] Comment on above: Performed By: #### C DP, CP #### [facility] [address] [place], [place] [phone] Sea Fo[employer] Kiss Maker: Armen Madrigal MD AST [Catalytic activity/Vol] 9 U/L Normal <[address] [facility] Comment on above: Performed By: #### C DP, CP #### [facility] [address] [place], [place] [phone] Sea Fo[employer] Kiss Maker: Armen Madrigal MD Bilirubin [Mass/Vol] 0.2 mg/dL Low 0.3-1.[address] [facility] Comment on above: Performed By: #### C DP, CP #### [facility] [address] [place], [place] [phone] [employer] Fo[employer] Kiss Maker: Armen Madrigal MD BUN/CRE Ratio 22 High 9-20 [facility] Comment on above: Performed By: #### C DP, CP #### [facility] [address] [place], [place] [phone] [employer] Fo[employer] Kiss Maker: Armen Madrigal MD Calcium [Mass/Vol] 8.8 mg/dL Normal 8.6-10.[address] [facility] Comment on above: Performed By: #### C DP, CP #### [facility] [address] [place] [address] Sea Foam Kiss Maker: Armen Madrigal MD Chloride [Moles/Vol] 104 mmol/L Normal 98-[address] [facility] Comment on above: Performed By: #### C DP, CP #### [facility] [address] [place] [address] Sea Foam Kiss Maker: Armen Madrigal MD CO2 [Moles/Vol] 19 mmol/L Low 20-31 [facility] Comment on above: Performed By: #### C DP, CP #### [facility] [address] [place] [address] Sea Foam Kiss Maker: Armen Madrigal MD Creatinine [Mass/Vol] 0.55 mg/dL Normal 0.50-0.[address] [facility] Comment on above: Performed By: #### C DP, CP #### [facility] [address] [place], [place] [phone] Sea Foam Kiss Maker: Armen Madrigal MD GFR/1.73 sq M.predicted among non-blacks MDRD (S/P/Bld) [Vol rate/Area] mL/min/{1.73_m2} Normal >[address] [facility] Comment on above: Result Comment: These [...] Performed By: #### C DP, CP #### [facility] [address] [place], [place] [phone] Sea Foam Kiss Maker: Armen Madrigal MD Glucose [Mass/Vol] 86 mg/dL Normal 70-[address] [facility] Comment on above: Performed By: #### C DP, CP #### [facility] [address] [place] [address] Sea Foam Kiss Maker: Armen Madrigal MD Potassium [Moles/Vol] 3.8 mmol/L Normal 3.7-5.[address] [facility] Comment on above: Performed By: #### C DP, CP #### [facility] [address] [place], [place] [phone] Sea Foam Kiss Maker: Armen Madrigal MD Protein [Mass/Vol] 6.0 g/dL Low 6.4-8.[address] [facility] Comment on above: Performed By: #### C DP, CP #### [facility] [address] [place] [address] Sea Foam Kiss Maker: Armen Madrigal MD Sodium [Moles/Vol] 134 mmol/L Low 135-[address] [facility] Comment on above: Performed By: #### C DP, CP #### [facility] [address] [place], [place] [phone] Sea Foam Kiss Maker: Armen Madrigal MD Urea nitrogen [Mass/Vol] 12 mg/dL Normal 6-[address] [facility] Comment on above: Performed By: #### C DP, CP #### [facility] [address] [place] [address] Sea Foam Kiss Maker: Armen Madrigal MD Urinalysis, Routineon 2022 Bilirubin, SemiQt,Ur Negative Normal NEG [facility] Comment on above: Performed By: #### U A #### [facility] [address] [place] [address] Sea Foam Kiss Maker: Armen Madrigal MD Blood, Urine Negative Normal NEG [facility] Comment on above: Performed By: #### U A #### [facility] [address] [place], [place] [phone] Sea Foam Kiss Maker: Armen Madrigal MD Clarity (U) Clear Normal CLEAR [facility] Comment on above: Performed By: #### U A #### [facility] [address] [place], [place] [phone] Sea Foam Kiss Maker: Armen Madrigal MD Color (U) Yellow Normal YEL [facility] Comment on above: Performed By: #### U A #### [facility] [address] [place], [place] [phone] Sea Foam Kiss Maker: Armen Madrigal MD Comment Normal [facility] Comment on above: Performed By: #### U A #### [facility] [address] [place], [place] [phone] Sea Foam Kiss Maker: Armen Madrigal MD Glucose Ql (U) Negative Normal NEG [facility] Comment on above: Performed By: #### U A #### [facility] [address] [place] [address] Sea Foam Kiss Maker: Armen Madrigal MD Ketones Ql (U) TRACE Abnormal NEG [facility] Comment on above: Performed By: #### U A #### [facility] [address] [place], [place] [phone] Sea Foam Kiss Maker: Armen Madrigal MD Leukocyte esterase Test strip Ql (U) Negative Normal NEG [facility] Comment on above: Performed By: #### U A #### [facility] [address] [place], [place] [address] Sea Foam Kiss Maker: Armen Madrigal MD Nitrite,Ur Negative Normal NEG [facility] Comment on above: Performed By: #### U A #### [facility] [address] [place], [place] [phone] Sea Foam Kiss Maker: Armen Madrigal MD PH,Ur 6.0 Normal 5.0-8.[address] [facility] Comment on above: Performed By: #### U A #### [facility] [address] [place], [place] [phone] Sea Foam Kiss Maker: Armen Madrigal MD Protein Ql (U) Negative Normal NEG [facility] Comment on above: Performed By: #### U A #### [facility] [address] [place] [address] Sea Foam Kiss Maker: Armen Madrigal MD Spec. Troy,Ur 1.025 Normal 1.005-1.030 [facility] Comment on above: Performed By: #### U A #### [facility] [address] [place] [address] Sea Foam Kiss Maker: Armen Madrigal MD Urobilinogen,Ur Normal Normal NORM [facility] Comment on above: Performed By: #### U A #### [facility] [address] [place], [place] [phone] Sea Foam Kiss Maker: Armen Madrigal MD RAD - MISCon 02-01-2023 RAD - MISC [id number] #1.00CD:127 Normal [facility] XR ANKLE RIGHT (MIN 3 VIEWS) on 01-29-2023 FINDINGS/IMPRESSION: 1. Compression fracture tip of the fibula no longer separately seen. 2. Anatomic alignment throughout. 3. Soft tissue swelling has resolved. [facility] EXAM: XR ANKLE RIGHT (MIN 3 VIEWS). HISTORY: Other closed fracture of proximal end of right fibula with routine healing, subsequent encounter. COMPARISON: 01/10/2023. [facility] Mauro Anton Jr., MD - 01/29/2023 EXAM: XR ANKLE RIGHT (MIN 3 VIEWS). HISTORY: Other closed fracture of proximal end of right fibula with routine healing, subsequent encounter. COMPARISON: 01/10/2023. IMPRESSION: FINDINGS/IMPRESSION: 1. Compression fracture tip of the fibula no longer separately seen. 2. Anatomic alignment throughout. 3. Soft tissue swelling has resolved. [employer] Phone: Radiology Study observation (narrative) [employer] Phone: XR ANKLE RIGHT (MIN 3 VIEWS) Ordered By: Mauro Anton on 01-29-2023 [employer] Phone: RAD - MISCon 01-11-2023 RAD - MIS [id number] #1.00CD:127 Normal [facility] XR ANKLE RIGHT (MIN 3 VIEWS) on 01-10-2023 FINDINGS/IMPRESSION: 1. Very small nondisplaced incomplete fracture is questioned in the distal tip of the right fibula, with mild surrounding soft tissue swelling. 2. No other fracture, malalignment, significant arthritis or acute bony abnormality is seen. [facility] CLINICAL HISTORY: Right ankle pain and swelling since an injury yesterday. RIGHT ANKLE 3 VIEWS: [facility] João Amezquita MD - 01/10/2023 CLINICAL HISTORY: Right ankle pain and swelling since an injury yesterday. RIGHT ANKLE 3 VIEWS: IMPRESSION: FINDINGS/IMPRESSION: 1. Very small nondisplaced incomplete fracture is questioned in the distal tip of the right fibula, with mild surrounding soft tissue swelling. 2. No other fracture, malalignment, significant arthritis or acute bony abnormality is seen. [employer] Phone: Radiology Study observation (narrative) [employer] Phone: XR ANKLE RIGHT (MIN 3 VIEWS) Ordered By: João Amezquita on 01-10-2023 [employer] Phone: Ambulatory Visit Summaryon 0 12-08-2022 Ambulatory Visit Summary MEENA READ :1995 Visit Date:12/08/2022 Ambulatory Visit Instructions Your Diagnosis Gastroenteritis due to [place]-like virus Obesity due to excess calories BMI [...] to 60 minutes before meals Pickup at [facility] Unchanged multivitamin, ( Multivitamins with Vitamin B Complex, Vitamin C, Minerals and L-Methylfolate oral capsule) 1 Capsules By Mouth Every day Contact prescribing physician if questions or concerns Unchanged ondansetron (Zofran ODT 4 mg Tab-Dis) 1 Tablets By Mouth 3 times a day Contact prescribing physician if questions or concerns Pharmacy Information [facility]: [address] [place], [place] [id number] [phone] Medications and Immunizations Administered Not Given influenza virus vaccine, inactivated, Postpone due to refusal SARS-CoV-2 mRNA (tozinameran 5y-11y) vac, Postpone due to refusal Allergies Percocet 5/325 (Hives, Rash) Vicodin (Hives) codeine (Hives, Rash) Problems Ongoing - Any problem that you are currently receiving treatment for. BMI 31.0-31.9,adult Gastroenteritis due to [place]-like virus Non-smoker Obesity due to excess calories [...] 1 years old. ? Live in a long term. ? Travel on cruise ships. What are [...] immune system (more content not included)... Normal [facility] ED Note-Physicianon 12-08-19 ED Note-Physician [id number] #1.00CD:127 Normal [facility] Family Medicine Office/Clini c Noteon 12-08-2022 [...] for influenza and COVID. 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 Gastroenteritis due to [place]-like virus (A08.8: Other specified intestinal infections) Viral [...] day(s), # 30 tab(s), Refills(s) 0, Pharmacy: [facility], 170, cm, 12/08/22 12:00:00 EST, Height/Length Dosing, 90.5, kg, 12/08/22 12:00:00 EST, Weight Dosing Follow-up With When Contact Information Keyon BROWN MD, FAM Only if needed Additional Instructions: Patient Education Viral Gastroenteritis, Adult Problem List/Past Medical History Ongoing BMI 31.0-31.9,adult Gastroenteritis due to [place]-like virus Non-smoker Obesity due to excess calories [...] Use, 05/26/2017 Employment/School 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 Normal [facility] Comment on above: Result Comment: Elec [...] 1 years old. ? Live in a long term. ? Travel on cruise ships. 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 ? Make sure that all people in your household wash their hands well and often. ? Take rhei-unn-busntmf and prescription medicines only as told by [...] to person (more content not included)... Normal [facility] COVID-19, Rapidon 12-04-2022 SARS-CoV-2 (COVID-19) RNA WADE+probe Ql (Unsp spec) Not detected Not Detected [facility] Comment on above: Rapid NAAT: [...] management decisions. Fact sheet for Healthcare Providers: https://www.fda.gov/media/661695/download Fact sheet for Patients: https://www.fda.gov/media/137311/download Methodology: Isothermal Nucleic Acid Amplification Specimen Description .NASOPHARYNGEAL SWAB [facility] Rapid influenza A/B antigens on 12-04-2022 Flu A Antigen Negative NEGATIVE [facility] Comment on above: for Influenza A Anti gen Flu B Antigen Negative NEGATIVE [facility] Comment on above: for Influenza B Anti gen. [facility] C Urineon 09-06-2022 Bacteria identified Cx Nom [...] Locations R1: This test was performed at: [facility], [address] [place] [address], [facility] , , [facility] Comment on above: Performed By: #### 2 [id number], [id number], [id number] ####[facility] [id number] [place] [address] Coding Summary.on 09-04-2022 Coding Summary. [id number] Gh0bWw+PGhlYWQ+PE1FV GXvB70vcHBhqD5BN7qVQ X8RQECLUERRBH7DMF6zd HR9GAffJ2FjozRv PgdaqVLwDE95MWj8VBR6 bEdoYQivtN7tmKMkD6l5 KlZpZI08pK14LWtgTXXa EpS9QzQdmtxqfUVf R0ahEpRwkSFdFng+PHRh YmxlIHdpZHRoPScxMDAl HcSzzZofJF4cYo0kWACo LWNvbGxhcHNlOiBj c1pvRHOnPSpuCK5vdBoz F4UfuOU3DCMvb7r9Lo05 dHI+ZIAxQVV7gWksHWsn x924CiHqi8xxLWX5 xDPmNKcsTZF7C19zf9V8 JQRpGBNqNQP9zXD8aD4p iKoaqgrzF0LqyNKvCbF1 WDR8hEPrqW2yoWhe ibcdcQ5oXmh+T83SJZ6S UOPKZT5OUrb1Q9OfUled dHI+ND25DDAbVT54fDQr mYMhv2lqxYa4GzSn UPWkSGY8tVedHEkqb2Hv UDMwC19hdVYlo0L7LXSh kHehjBZcJjIqpLU9kY1v QVxstybiv6hutihd Jzzdu5omzw97bB44B90b LTuoSDIaVYG9RHBdARWa iRdbaw5tgW1gGj8+IDxj x7zes0mvzRt3NrSz MZXkqbLngDcmWPC4a8Mx Ew37V6PdcJnwl2RwZmu0 ul02bSNwb9Y6zGU4FKls AHPbuX5gVGrsDtT1 ZUYdNcJzyZ90sYEnNKtr Rh5emYubeLdmRQ9iFXVi zljkKSEdmP3pKMTyvDHv qNfbYI7hAFMhzvzz a301NdFzHKB6TCXkpDYq S3FlwQ6cYcUyCKYrQSAs J6XglQMjVYjcI553BWwf KiI6HBJdgjGkQ3Sd MQAzvXqtDqI4l8J2Bl9D h3QmhwaiVWQ1IYscUGCb ZdB7ApTfNcU3B9XhUmh4 DHYugEdhOY7aE2Gn STGnamhrbvfytKH6LTPv SYPugO45bJTyNLklZq4m x3S5f535MMZvTTIrqT45 Lq7obLfxJEAniSNI uA6xdqdwu4uyshriTwBi YMLsKEi5TAd5VPFeyVcy MeVgJDP8FaE1PYC8rTQb qG8xdUbxpqhewV4z Oyc+N77ahT2nZEV7KNI4 ncxnRGAohoHzRU49IT85 Z7GpFfixrNVhiXM+PGRp qvThtArhHV0lSsZu n1mkd5PuSWsyW3LaKWCw RPfuEyq0MKNnZRR2gYF2 kI0xHPDxSHxml7V8xIT5 G3WmdaHwdz9hp0qu XSBbBGedB66hiNJam4P9 RWInpWC2VCNrqSgcLjWx yZ80Afn+ALAntRali3Ec Yofro3ood3yrkLc5 IjMwJSIgdmFsaWduPSJ0 w9GrUk82G66hHXuxVMJt BMFcOTKlSNDzcYaxoa7y mB8aYo9+PGNvbCB3 zVL3zH1tCXIvNxU2VIcl W498BnAyfGSbAkatj3mj d3zpfQp3DbMsYOMkdqMx eHjcHJY2r2AxFt96 Q93uDEhcJHMqGHElCJFh EBGjnHxtlo6zwH3uLh5+ QL9me1ieip53yP59rPJ+ FINcFNC3tPelKWcb MJLumS0yZOpsLwH9LMSz IpGjiB05zYBbUYvqWa8y bWitmHamQT5lJOGlgdxx u528AfKlf9ssHXTq fEVgYLvqNKN5L42mx1U4 TKWxXCRwEYM1eJM6pW0h bGlnbjogbGVmdDsgdmVy fGrbQXrgSGzrP012 IHRvcDsnPlBhdGllbnQg YyUzUCy8A4TbXxs1ARAp wXsgNG0hyIZwKTuqPn6v pVussOsrKW5dERSw psado822UhCdy1ccXXFq dHIzVVojYZA6H71wg9Y3 XBGeGYCkFZM7dOR2zV5d bGlnbjogbGVmdDsg pmIvkPzmKUilEYieD580 IHRvcDsnPkJpcnRoIERh sDE7EU16YL43bVNeb2W4 vCL9B5JeFPSpeltu yemytNK5EGFzSCGddD99 Gy3beEcxWw7gSJJyVAO3 OMHmuJAeT3RqtZ8eArZn QYJgZDFnA4IkrCPf KLfwT540FMknUwP3MSUu cvDdZ4VyQRHnbAiiKiU3 q1K5Yy4UW0Y7RB19HV71 wLLxc8N1qFL8F4Nj QFYhmcxtiwghuDB4YRKc GAPcbZ93Ut7hnAhrGy3t HQMnLHS0CTAwdXZpK1Gh gQ5iOrLsSZJqZGVu V6HggBWoDLleY488PYab YxS6QUCqnuLqY7IkKBWl fSdeXpN4k8L6Dk8SYEl7 LO43HN41bYXqr8A3 hJG3S8RjNORqhqibkyue hZI2HUAlBKEcgJ92Vu9h zLxhJg1vTHKeRUM1GUWc oUAwB3CphS9nCuCw OOUbUFWhM3ZavBMvPNmr P060NQqgYhQ6MKHumjNr T0NqRUWhuAlnRlW0f9E8 Ad4PFBAmRU65DON9 vSH8SA70WF88R0HxBimc dGFibGU+PHRhYmxlIHdp ZHRoPScxMDAlJyBzdHls QY9kXw0nVMJrMYLm dIgbfMEwCcNhs7ehPYBg OPwfNZ3qiFdvM9MvsCD3 CAAjk1j3Lg93D59lN6Gy dXA+CMJuuNM7iDJ1 cZ3bNwMrVtB8XTlgE712 RzOohXRqQaytq7sjn9cm dTk6TzT5ETOnpgUylIek AVA1i9DxXl73N34u IHdpZHRoPSIxNSUiIHZh mXjqze5vfD9xDx3+PGNv lWG9cFX1aP6fApSbRkK3 KOwyW955WhYkeIYi Bmyje1ffa6gbzNi2SlHm UGVlyvHxpAkpXHQ1h4Pm Lt84M6FdzEvxc9DyNmn2 dn42lIQpy3F0uVQ6 M6MsXSDrwbozkYGloJlb AP6pFPVnskdvFCWcfY4h CGVfW0m1JrNlOoV5GIlx Y0VgpoO5NUNofLDg VGvhBLF7T32hv9A7XJFp VXGrRCH5iPC4rK1ytQaq bjogbGVmdDsgdmVydGlj JZbePSptF657VEWf fRncYWZqkE8hFTSjuZHk kKglXL4kJPYjdnnwLfYO Ig3YCKMaUPrKSKnKWA2r RTwvdGQ+PHRkIHN0 cXmoHKtxVHRqkS9rOLLl W3e9XhCmQpH9CYphH7Sd OYHwatkbBg02kP9pSdWa WhS4CGwvH3KirvC5 FBWhyOEsSGjoWPZ5J22m g4T2JIAaVJXhDLZ7vCG1 kU1geDcczbgcoKNdnCmk dmVydGljYWwtYWxp C333UYAnkZltUjDxFuC6 SsC2OSY5Z9MoBjx5LLAk cBhzSR7arAZcTQrnKh0r iFsjyIkhCX6rXAIg drryUFJfbB0xNZDdwOXn sKwxNM4bOTMdmkxat462 DrEsFWA8SURvrSPaO8Ph kO5bCuLlNDIfRUAq B4EuvMDjFRcmC294EEmb XfJ1EURdilUbO0XeHYJs tKciJvA5b2B9Kc7jYyLD ZWFyczwvdGQ+PHRk HRA9eNfiJZscWJGfhK3z YPSuD0e6JmAfZiB6AOsp J2TkNBWqwttiWo54kA8j DuAvSmR2DFnjD0Vu tkE5DXUfxQDdUZcmKVI6 N41cm3C5BRWlKGIkBPE5 sCF8bE5phWhcdngnoWZg dDsgdmVydGljYWwt SDmbW904OVCarUgxKyDi bWFsZTwvdGQ+PHRkIHN0 uUgtRLjoPXBzlU1lBFFt N1o0RlSiAvD9NCkw S8AjSTMeqabxZp13xW2a CtWpRvS4FNlsY0WihoO0 ZUCryVLtIBahCMY7M28d q2L4MWTdUNHaBMT2 rGE1kU5zcTozkjaysMWo dDsgdmVydGljYWwtYWxp Z440RZBvoMdqCqIlMXRj OA1bxKcxyRT+PC90 mg95T5WeYxusGil1GQTl WOG7vFE5mI7wUAAsJSbj x7D6vVU0O5TxdtBquq2r i8ivBSTfCFprW04t zQOir0C8ZLPckIX8POJl lIcuRcMmmM66Cym+PGNv iKgkv5EeRpafm8sfy8lv jMt4GjIgVCRktdKy xGssMOT5v7XgKv75S68u IHdpZHRoPSIzMCUiIHZh nUfchz3veJ1nJp0+PGNv nXS0kHA6xB3hIfVe CwZ3GEotA140BaSsfUWl Feafy1gil0upzBe5ZlTb XMPstvIkeMglDFK1m0Vh Hp55K8HsxMpvm6Fh Tot7oa71xICeu4Y3oDW8 D2PcGRHtyixyqXGqyTpb WU5aBCYxrfjlXLUteU1s XZLtU6y0CtBvDkP0 OIobD1UcsmN9EDLgkQIl ISPdcPYJdA7pdcsll1zf bmoiMpSnVHOwKWe3EPw4 LWFsaWduOiBsZWZ0 GhX8RVF0gEUtwI0ipWuh qpgjxE1yVap+ZFw9n1mi uNPuNJ7qqHF5WI13KN55 gEHzn8R6aTX4H3Dj VNWggippypkgpCH9ZKWe YDUgcW70Ne0cpQwfWa3j KMJrTCR1QQZquFNlB8Tp dG7rAfJpFYKfHWMz Z9CwsOAlXLuiT825GDku LlL9JROpbkNoK0ZnNSLd sZsyWxN2d1P5Pd6VYZ33 PP97TB02bBQfb4C0 dYS6E2MmUSQdoubwfexl kME1CZFbIHGqvU88Ze7j uTprOh7pXPDnWDY7JMBu vUDzY4PxqK2nHxFe CYGdRKUpU6KnqOVpOHld M900CLroZaL6FGMawdBj L5WtUILlwAayRsA0p1C6 Bi0ZBc86KP53EY60 hPVzn4Q3aOY8Z8PzYHRy nusmyoawoZI2STQhVGIk mC39Ln8qzUpaAb7bCNFq EHP2UQSowJCnO0Da vA9nJsSqGFYrVHDqY1Gt dYQnGHygI363LCtmKyZ7 XVMgjvWsR5BoAOTfyJnj XoF1v0Q4Ig9FOTmo wwb6J8EqNpvhaAO+PC90 CXEaXI03sREanAGze0er aNj8NzXpJFOaRZZ2kLmm NOasw2ReJVNdB71i bGFw (more content not included)... Normal [facility] Consent for Treatmenton 10- Consent for Treatment [id number] #1.00CD:127 Normal [facility] Discharge Instructionson Discharge Instructions [id number] #1.00CD:127 Normal [facility] ED Clinical Summaryon 2021 ED Clinical Summary [place] [id number] ED Clinical Summary Person Information Name: MEENA READ [place] Age: 26 Years : 1995 Sex: Female Language: Venezuelan PCP: Charli LOPEZ Marital Status: Single Visit [...] 09/03/2022 15:51:51 09/03/2022 15:51:51 09/03/2022 15:51:51 ADDRESS: [address] [place] [phone] PHYS DOC NOTES: MEDICAL INFORMATION: Prescriptions Given: New Medications [facility], [address] [place], [place] [id number], [phone] ondansetron (Zofran ODT 4 mg Tab-Dis) 1 Tablets By Mouth 3 times a day. Refills: 0. Medications to Continue with No Changes Other Medications multivitamin, ( Multivitamins with Vitamin B Complex, Vitamin C, Minerals and L-Methylfolate oral capsule) 1 Capsules By Mouth every day. Refills: 0. PATIENT EDUCATION INFORMATION: Instructions: Nausea and Vomiting, Adult Follow up: With: Address: When: Charli CARLSON [address] [place] [id number] Business (1) In 3 days 09/06/2022 DIAGNOSIS: Nausea & vomiting Normal [facility] ED Note-Physicianon 09-03-20 ED Note-Physician Basic Information Time Seen: Derrick BELLAMYNeil 09/03/2022 14:30 Chief Complaint patient c/o nausea [...] TID, # 15 tab(s), Refills(s) 0, Pharmacy: [facility], 170, cm, 09/03/22 14:31:00 EDT, Height/Length [...] CARLSON In 3 days 09/06/2022 EDT [address] [place] [address] [facility] (1) Additional Instructions: Patient Education Nausea and Vomiting, Adult Attestation Patient seen and evaluated by the physician oncology physician assistant. Attending physician was present in the emergency department and supervised care. This visit was performed by both the physician and an APC. I performed all aspects of the MDM as documented. This report was transcribed using voice recognition software. Every effort was made to ensure accuracy, however, inadvertently computerized health care consultant mistakes may be present. Appropriate healthcare PPE [...] (09/03/22 14:49:0 (more content not included)... Normal [facility] Comment on above: Result Comment: Elec [...] added (diluted fruit juice). ? Eat bland, znfw-ma-emmrwq foods in small amounts as you are able. These foods include bananas, applesauce, rice, lean meats, toast, and crackers. ? Avoid fluids that contain a lot of sugar or caffeine, such as energy drinks, sports drinks, and soda. ? Avoid alcohol. ? Avoid spicy or fatty foods. General instructions ? Take hqbp-dgq-awkokza and prescription medicines only as told by your health care provider. ? Drink enough fluid to keep your urine pale yellow. ? Wash your hands often using soap and water. If soap and water are not available, use hand turning machine operator helper. ? Make sure that all people in [...] and drinking to prevent dehydration. ? Take zmoz-ulk-yoqrkpw and prescription medicines only as told by [...] 11/08/2006 Document Revised: 03/01/2020 Document Reviewed: 04/18/2019 [employer] Patient Education ? 2019 [employer] Normal [facility] ED Patient Summaryon 022 ED Patient Summary [place] [id number] Patient Discharge Instructions Person Information Name: MEENA READ Age: 26 Years Arrival Date: 09/03/2022 14:27:10 Discharge Diagnosis: Nausea & vomiting Primary Care Physician: Charli LOPEZ Provider Information Primary Provider: Evan Moyer DO Advanced Territory Service Representative:Neil Meza PA-C The exam and treatment you received in the Emergency Department were for an urgent problem and are not intended as complete care. It is important that you follow up with a doctor, nurse practitioner, or physician?s oncology physician assistant for ongoing care. If your symptoms [...] Follow-up Instructions: With: Address: When: Charli Gaines [place] [phone] Business (1) In 3 days 09/06/2022 In the event that this physician does not participate in your insurance network, please consult with your insurance company to find a nearby participating provider. Patient Education Materials: Nausea and Vomiting, Adult A MESSAGE TO ALL PATIENTS REGARDING OPIOIDS PRESCRIPTION OPIOIDS: WHAT YOU NEED TO KNOW Prescription opioids can be used to help relieve fabratkj-hy-bfxtto pain and are often prescribed following a [...] be struggling with addiction, tell your health progressive care unit registered nurse and ask for guidance or call [facility]S National Helpline at 4-313-545-UOCQ. v Source: US Dep (more content not included)... Normal [facility] U BetaHcg Qualon 09-03-2022 HCG.beta subunit (U) [Moles/Vol] Negative Normal [facility] Comment on above: Performed By: #### 2 [id number], [id number], [id number] ####[facility] [address] [place] [address] UA With Cult Reflexon 2021 Bacteria LM Ql (Urine sed) 2+ /HPF Abnormal Trace [facility] Comment on above: Performed By: #### 2 [id number], [id number], [id number] ####[facility] [address] [place] [address] Bilirubin Ql (U) Negative Normal Negative [facility] Comment on above: Performed By: #### 2 [id number], [id number], [id number] ####[address] [address] Clarity (U) CLEAR Normal Clear [facility] Comment on above: Performed By: #### 2 [id number], [id number], [id number] ####[address] [address] Color (U) YELLOW Normal Yellow [facility] Comment on above: Performed By: #### 2 6339982, 69734165, [id number] ####[place] 1922457 Epithelial cells.squamous LM.HPF (Urine sed) [#/Area] 5-8 Normal 0-2 [facility] Comment on above: Performed By: #### 2 [id number], [id number], 4635661 ####[facility] [address] [place] [address] Glucose Test strip (U) [Mass/Vol] Negative Normal Negative [facility] Comment on above: Performed By: #### 2 3292879, [id number], 7660411 ####[address] [address] Hemoglobin Ql (U) Negative Normal Negative [facility] Comment on above: Performed By: #### 2 4773760, [id number], 4155703 ####[address] [address] Ketones (U) [Mass/Vol] Negative Normal Negative [facility] Comment on above: Performed By: #### 2 6062419, [id number], 0933937 ####[address] [address] [place].plasma/Lit hium.RBC (Bld) [Mass ratio] 0-3 Normal 0-3 [facility] Comment on above: Performed By: #### 2 0686496, [id number], 6565873 ####[address] [address] Mucus Ql (Urine sed) 1+ Normal [facility] Comment on above: Performed By: #### 2 5853983, 04172859, 4964637 ####[address] [address] Nitrite Ql (U) Negative Normal Negative [facility] Comment on above: Performed By: #### 2 [id number], 40028308, 0704790 ####[address] [address] pH (U) 5.5 [pH] Invalid Interpretation Code 5.0-9.0 [facility] Comment on above: Performed By: #### 2 2133491, 50678396, 7068299 ####[place] [address]22457 Protein (U) [Mass/Vol] Negative Normal Negative [facility] Comment on above: Performed By: #### 2 5689888, 62171604, 4033222 ####[place] 1922457 Specific gravity (U) [Rel density] >=1.030 Invalid Interpretation Code 1.005-1.030 [facility] Comment on above: Performed By: #### 2 2911607, 07576573, 5158145 ####[place] [address]22457 Type of Urine collection method Clean Catch Normal [facility] Comment on above: Performed By: #### 2 3282560, [id number], 4438479 ####[address] [address] Urobilinogen Qn (U) 0.2 {Elver'U}/dL Normal 0.0-1.0 [facility] Comment on above: Performed By: #### 2 8752655, 25923138, 0055368 ####[address] [address] WBC Auto Ql (U) Negative Normal Negative [facility] Comment on above: Performed By: #### 2 1659634, 36951848, 8074627 ####[facility] [address] [place] [address] WBC LM.HPF (Urine sed) [#/Area] 0-5 Normal 0-5 [facility] Comment on above: Performed By: #### 2 5015212, 41367104, 3749986 ####[facility] [address] [place] [address] XR WRIST LEFT (MIN 3 VIEWS)o n 06-19-2022 Normal left wrist. [facility] EXAM: XR WRIST LEFT (MIN 3 VIEWS) HISTORY: M25.532. 26-year-old female, left wrist pain. COMPARISON: None. TECHNIQUE: Three views left wrist. FINDINGS: The radiocarpal joint and wrist are normal. Normal scapholunate distance. No erosion or chondrocalcinosis. [facility] Mauro Anton Jr., MD - 06/19/2022 EXAM: XR WRIST LEFT (MIN 3 VIEWS) HISTORY: M25.532. 26-year-old female, left wrist pain. COMPARISON: None. TECHNIQUE: Three views left wrist. FINDINGS: The radiocarpal joint and wrist are normal. Normal scapholunate distance. No erosion or chondrocalcinosis. IMPRESSION: Normal left wrist. 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 pain has been constant for about 1 week now. History of Present Illness Pt [facility]. Previous pt of [facility] in [place]. Concerned today about left wrist pain which started about 1 yr ago; pain has worsened over the last week. 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 Carries everything in her left hand. Right handed. Pain location: medial martinez hand, radiating to wrist Pain description: shooting Pain rated: 2/10, 7/10 with certain movements. 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 Negative Tinels and DeQuervians. + Phalens. Executive Assistant strength equal. Neurologic: Cranial nerves II-XII grossly intact. Skin: [place], warm and dry. No rashes, ulcerations, or [...] day(s), # 30 tab(s), Refills(s) 1, Pharmacy: [facility], 170, cm, 06/01/22 12:55:00 EDT, Height/Length Dosing, 91.3, kg, 06/01/22 12:55:00 EDT, Weight Dosing [facility] External Ambulatory Referral 2. BMI 31.0-31.9,adult (Z68.31: Body mass index [BMI] 31.0-31.9, adult) The standard range for ages 18 and older is >=18.5 and < 25 kg/m2. Your BMI today was above this range, this falls in the obese category and there are medical benefits to weight loss. We can offer counselling, referral, and/or medical support in addressing this problem. Visit [employer] for useful information to help make better [...] unspecified fo (more content not included)... Normal [facility] Comment on above: Result Comment: Elec tronically Signed By: Siddhartha CRUZ, Meena Brandon\.br\Date and Time Signed: 06/01/22 13:16 EDT Patient [...] height. This can be done either in [place]an (U.S[place] or metric measurements. Note that charts are available to help you find your BMI quickly and easily without having to do these calculations yourself. To calculate your BMI in [place]an ([place] measurements, your health care provider will: [...] problems. ? BMI can be measured using Venezuelan measurements or metric measurements. ? To interpret [...] 07/20/2005 Document Revised: 10/21/2018 Document Reviewed: 09/21/2018 [employer] Patient Education ? 2019 [employer] Orthopedics Carpal Tunnel Syndrome Carpal tunnel syndrome [...] Having a job, such as being a supervisor telephone information or a front window cashier, that requires you to repeatedly move [...] and midd (more content not included)... Normal [facility] Physician Referralon 022 Physician Referral [id number] #1.00CD:127 Normal [facility] Vital Signs Date Time Vital Sign Value Performing Clinician Faci litmariya 01-10-2023 14:29-0500 Body height 165.1 cm Fei Canales MD Work Phone: [employer] 01-10-2023 14:29-0500 Body mass index (BMI) [Ratio] 34.35 kg/m2 Fei Canales MD Work Phone: [employer] 01-10-2023 14:29-0500 Body temperature 98.49 [degF] Fei Canales MD Work Phone: [employer] 01-10-2023 14:29-0500 Body weight 93.62 kg Fei Canales MD Work Phone: [employer] 01-10-2023 14:29-0500 Diastolic blood pressure 79 mm[Hg] Fei Canales MD Work Phone: [employer] 01-10-2023 14:29-0500 Heart rate 75 /min Fei Canales MD Work Phone: [employer] 01-10-2023 14:29-0500 Respiratory rate 16 /min Fei Canales MD Work Phone: [employer] 01-10-2023 14:29-0500 SaO2% (BldA) [Mass fraction] 99 % Fei Canales MD Work Phone: [employer] 01-10-2023 14:29-0500 Systolic blood pressure 140 mm[Hg] Fei Canales MD Work Phone: [employer] 12-08-2022 11:51-0500 Blood Pressure Location Keyon BROWN [facility] 12-08-2022 11:51-0500 Body temperature 98.24 [degF] Keyon BROWN [facility] 12-08-2022 11:51-0500 Diastolic blood pressure 78 mm[Hg] Keyon BROWN [facility] 12-08-2022 11:51-0500 Heart rate 84 /min Keyon KEVIN [facility] 12-08-2022 11:51-0500 Respiratory rate 16 /min Keyon BROWN [facility] 12-08-2022 11:51-0500 SaO2% (BldA) [Mass fraction] 100 % Keyon BROWN [facility] 12-08-2022 11:51-0500 Systolic blood pressure 114 mm[Hg] Keyon BROWN [facility] 12-04-2022 16:32-0500 Body mass index (BMI) [Ratio] 33.66 kg/m2 Jason Tracy MD Work Phone[email or web address] 12-04-2022 16:32-0500 Body temperature 98.49 [degF] Jason Tracy MD Work Phone: [email or web address] 12-04-2022 16:32-0500 Body weight 91.76 kg Jason Tracy MD Work Phone: [email or web address] 12-04-2022 16:32-0500 Diastolic blood pressure 75 mm[Hg] Jason Tracy MD Work Phone: [email or web address] 12-04-2022 16:32-0500 Heart rate 91 /min Jason Tracy MD Work Phone[facility] 12-04-2022 16:32-0500 Respiratory rate 16 /min Jason Tracy MD Work Phone: [facility] 12-04-2022 16:32-0500 SaO2% (BldA) [Mass fraction] 99 % Jason Tracy MD Work Phone: [email or web address] 12-04-2022 16:32-0500 Systolic blood pressure 123 mm[Hg] Jason Tracy MD Work Phone: [facility] 06-01-2022 12:50-0400 Blood Pressure Location Meena Carl [facility] 06-01-2022 12:50-0400 Body temperature 96.98 [degF] Meena Carl [facility] 06-01-2022 12:50-0400 Diastolic blood pressure 60 mm[Hg] Meena Carl [facility] 06-01-2022 12:50-0400 Heart rate 88 /min Meena Carl [facility] 06-01-2022 12:50-0400 SaO2% (BldA) [Mass fraction] 97 % Meena Carl [facility] 06-01-2022 12:50-0400 Systolic blood pressure 122 mm[Hg] Meena Carl [facility] 09-14-2021 10:15-0400 Body mass index (BMI) [Ratio] 31.62 kg/m2 Keyon Wilkinson MD Work Phone: [employer] Work Phone: 09-14-2021 10:15-0400 Body weight 86.18 kg Keyon Wilkinson MD Work Phone: [employer] Work Phone: 09-14-2021 10:14-0400 Body height 165.1 cm Keyon Wilkinson MD Work Phone: [employer] Work Phone: 09-14-2021 10:14-0400 Body temperature 98.2 [degF] Keyon Wilkinson MD Work Phone: [employer] Work Phone: 09-14-2021 10:14-0400 Diastolic blood pressure 93 mm[Hg] Keyon Wilkinson MD Work Phone: [employer] Work Phone: 09-14-2021 10:14-0400 Heart rate 91 /min Keyon Wilkinson MD Work Phone: [employer] Work Phone: 09-14-2021 10:14-0400 Respiratory rate 20 /min Keyon Wilkinson MD Work Phone: [employer] Work Phone: 09-14-2021 10:14-0400 SaO2% (BldA) [Mass fraction] 96 % Keyon Wilkinson MD Work Phone: [employer] Work Phone: 09-14-2021 10:14-0400 Systolic blood pressure 131 mm[Hg] Keyon Wilkinson MD Work Phone: [employer] Work Phone: Encounters Encounter Date Encounter Type Care Provider Facility Start: 03-06-2024 End: 03-06-2024 ambulatory YULIA MEERA Not Available Start: 03-04-2024 End: 03-05-2024 ambulatory YULIA JEFF [facility] Start: 03-04-2024 Emergency department patient visit [facility] Start: 12-08-2023 End: 12-08-2023 ambulatory YULIA MEERA Not Available Start: 10-25-2023 End: 10-25-2023 ambulatory YULIA MEERA Not Available Start: 10-18-2023 End: 10-18-2023 ambulatory YULIA MEERA Not Available Start: 10-07-2023 End: 10-07-2023 ambulatory YULIA MEERA Not Available Start: 07-19-2023 End: 07-19-2023 Emergency department patient visit [facility] Start: 05-05-2023 End: 05-05-2023 Emergency department patient visit [facility] Start: 04-09-[address] NONE LISTED REQUEST Facility: Start: 01-29-2023 End: 01-31-2023 Subsequent hospital visit by physician [facility] Additional Xray At [facility] Comment on above: Other closed fractur e of proximal end of right fibula with routine healing, subsequent encounter Start: 01-29-2023 End: 01-31-2023 Subsequent hospital visit by physician Keyon Brown MD Work Phone: [facility] Start: 01-10-2023 End: 01-10-2023 Emergency department patient visit Fei Canales MD Work Phone: [facility] ED Comment on above: Injury of right ankl e, initial encounter (Primary Dx) Start: 12-08-2022 End: 12-09-2022 ambulatory Keyon BROWN Facility:[facility] Start: 12-08-2022 End: 12-08-2022 Patient encounter procedure Keyon BROWN [facility] [place] Start: 12-04-2022 End: 12-04-2022 Emergency department patient visit Jason Tracy MD Work Phone: [facility] ED Comment on above: Viral illness (Prima ry Dx) Start: 09-03-2022 End: 09-03-2022 Emergency department patient visit Evan Moyer Facility:[facility] Start: 06-19-2022 End: 06-21-2022 Subsequent hospital visit by physician [facility] Additional Xray At [facility] Comment on above: Left wrist pain Start: 06-01-2022 End: 06-02-2022 ambulatory ANTHONY Carl Facility:[facility] Start: 06-01-2022 End: 06-01-2022 Patient encounter procedure Meena Carl [facility] Start: 05-28-2022 ambulatory ANTHONY Cral Faci lity:[facility] Start: 09-14-2021 End: 09-14-2021 Emergency department patient visit Keyon Wilkinson MD Work Phone: [facility] ED Comment on above: Subacute bronchitis [...] MD Work Phone: Start: 11-22-2014 Cholecystectomy Meena Siddhartha Tonsillectomy Meena Carl Tonsils and adenoids postoperative education Meena Carl Plan of Treatment Date Care Activity Detail Author Start: 07-23-2022 Influenza vaccination Flu vaccine (# 1) [facility] Start: 06-22-2022 Influenza vaccination Flu vaccine (# 1) [facility] Start: 07-23-2021 Influenza vaccination Flu vaccine (# 1) [facility] [employer] Work Phone: Start: 08-02-2017 DTaP/Tdap/Td vaccine (2 - Td or Tdap) DTaP/Tdap/Td vaccine (2 - Td or Tdap) [facility] Start: 2015 Screening for malign ant neoplasm of cervix Pap smear [facility] Start: 2013 DTaP/Tdap/Td vaccine (1 - Tdap) DTaP/Tdap/Td vaccine (1 - Tdap) [facility] [employer] Work Phone: Start: 2012 Hepatitis C screening Hepatitis C sc reen [facility] Start: 2009 HIV screening HIV screen [facility] Start: 2006 COVID-19 Vaccine (1) COVID-19 Vaccin e (1) [employer] Work Phone: Start: 2006 Depression Screen Depression Screen [facility] Start: 2005 HPV vaccine (1 - 2-d ose series) HPV vaccine (1 - 2-dose series) [email or web address] Phone: Start: 1998 Varicella vaccine (2 of 2 - 2-dose childhood series) Varicella vaccine (2 of 2 - 2-dose childhood series) [facility] Start: 1995 Varicella vaccine (1 of 2 - 2-dose childhood series) Varicella vaccine (1 of 2 - 2-dose childhood series) [email or web address] Phone: Start: 05-30-1995 COVID-19 Vaccine (#1) COVID-19 Vacci ne (#1) [facility] Start: 1994 Hepatitis C screening Hepatitis C sc reen [email or web address] Phone: Immunizations Immunization Date Immunization Notes Care Provider Fa zelalem 02-16-2008 Hep A, unspecified formulation Meena Carl [facility] 08-02-2007 Hep A, unspecified formulation Meena Carl [facility] 08-02-2007 meningococcal ACWY vaccine, unspecified formulation Meena Aguilarell [facility] 08-02-2007 tetanus toxoid, reduced diphtheria toxoid, and acellular pertussis vaccine, adsorbed Meena Carl [facility] 08-19-2000 DTaP, unspecified formulation Meena Carl [facility] 08-19-2000 measles, mumps and rubella virus vaccine Meena Carl [facility] 10-10-1997 varicella virus vaccine [facility] [facility] 03[facility]1996 DTaP, unspecified formulation Meena Carl [facility] 03-09-1996 Hib, unspecified formulation Meena Carl [facility] 03-09-1996 measles, mumps and rubella virus vaccine Meena Carl [facility] 06-11-1995 DTP-Hib Meena Carl [facility] 06-11-1995 hepatitis B vaccine, pediatric or pediatric/adolescent dosage Meena Carl [facility] 04-05-1995 DTP-Hib Meena Carl [facility] 02-01-1995 DTP-Hib Meena Carl [facility] 01-04-1995 hepatitis B vaccine, pediatric or pediatric/adolescent dosage Meena Aguilarell [facility] 1994 hepatitis B vaccine, pediatric or pediatric/adolescent dosage Meena Carl [facility] NEGATED: Highlighted row has not occurred!12-08-2022 influenza virus vaccine, unspecified formulation Keyon BROWN [facility] NEGATED: Highlighted row has not occurred!12-08-2022 SARS-CoV-2 mRNA (tocassandranameran 5y-11y) vaccine Keyon BROWN [facility] Payers Date Payer Category Payer Unknown [id number] 1994 Unknown [id number] 2.16.8 40.1.916116.3.579.2.727 1994 Unknown [id number] 2.16.8 40.1.091795.3.579.2.727 1994 Unknown [id number] 2.16.8 40.1.838135.3.579.2.727 1994 Unknown [id number] 2.16.8 40.1.755254.3.579.2.727 1994 Unknown [id number] 2.16.84 0.1.781737.3.579.2.593 1994 Unknown [id number] 2.16.8 40.1.570876.3.579.2.174 1994 Unknown [id number] 2.16.8 40.1.499779.3.579.2.174 1994 Unknown [id number] 2.16.8 40.1.356734.3.579.2.174 1994 Unknown [id number] 2.16.8 40.1.882450.3.579.2.174 1994 Unknown [id number] 2.16.84 0.1.356186.3.579.2.1259 1994 Unknown [id number] 2.16.84 0.1.254947.3.579.2.1259 1994 Unknown [id number] 2.16.840 .1.431934.3.579.2.1259 1994 Unknown [id number] 2.16.840 .1.495269.3.579.2.1259 1994 Unknown [id number] 2.16.840 .1.797089.3.579.2.1259 1959 Unknown [id number] 1. [id number] Social History Date Type Detail Facility Start: 05-31-2018 End: 09-14-2021 Tobacco smoking status NHIS Never smoker [email or web address] Phone: Start: 05-31-2018 End: 09-14-2021 Tobacco use and exposure Never used [employer] Start: 09-14-2021 End: 01-10-2023 Alcohol intake Current non-drinker of alcohol (finding) [email or web address] Phone: Start: 1995 Sex Assigned At Not on file [employer] Work Phone: Start: 11-24-2022 End: 01-10-2023 Exposure to SARS-CoV-2 (event) Not sure [employer] Tobacco smoking status Never [facility] Sex Assigned At Female [facility] Start: 12-04-2022 End: 01-10-2023 History SDOH Alcohol Frequency 1 [facility] [employer] Work Phone: Functional Status Date Assessment Result Facility 12-08-2022 Functional Status N/A [facility] [place] 06-01-2022 Functional Status N/A [facility] Clinical Notes 06-01-2022 to 01-10-2023 [...] cannot be sent through Care Everywhere.Ankle Sprain ([place])documented in this encounter [facility] [employer] Work Phone: 12-08-2022 Hospital Discharg e [...] than 2 years old. Live in a long term. Travel on cruise ships. What are the [...] and water are not available, use hand turning machine operator helper. Make sure that all people in your household wash their hands well and often. Take yhvp-ukk-hlmidgc and prescription medicines only as told by [...] and water are not available, use hand turning machine operator helper. This information is not intended to replace advice given to you by your health care provider. Make sure you discuss any questions you have with your health care provider. Document Released: 11/08/2006 Document Revised: 04/26/2020 Document Reviewed: 09/13/2019 [employer] Patient Education 2020 [employer]. Follow Up Care 12/08/2022 09:17:52 With:Keyon BROWN MD, FAM Address: When: only if needed [facility] [place] 12-04-2022 [facility] Discharg e instructions Jason Tracy MD - 12/04/2022 4:33 PM EST Increase fluids at home. Take Zofran for any nausea. Try Imodium/loperamide for diarrhea. Call primary care doctor for close follow-up. Use Tylenol or Motrin to keep fever down. The following attachments cannot be sent through Care Everywhere.Viral Infections ([place])documented in this encounter [facility] [employer] Work Phone: 06-01-2022 [facility] Discharg e instructions Patient Education 06/01/2022 [...] height. This can be done either in [place] ([place] or metric measurements. Note that charts are available to help you find your BMI quickly and easily without having to do these calculations yourself. To calculate your BMI in [place] ([place] measurements, your health care provider will: [...] medical problems. BMI can be measured using [place]an measurements or metric measurements. To interpret your [...] 07/20/2005 Document Revised: 10/21/2018 Document Reviewed: 09/21/2018 [employer] Patient Education 2020 [employer] 06/01/2022 13:15:39 Carpal Tunnel Syndrome Carpal Tunnel [...] Having a job, such as being a supervisor telephone information or a front window cashier, that requires you to repeatedly move [...] 3 times per day. General instructions Take ttns-ipu-apnozbm and prescription medicines only as told by [...] 11/05/2001 Document Revised: 03/17/2019 Document Reviewed: 03/17/2019 [employer] Patient Education [employer]. Follow Up Care 05/28/2022 08:22:05 With:Meena Carl CNP Address: When: only if needed [facility] Evaluation + Plan note [facility] Evaluation note Diagnosis Subacute bronchitis- Primary Acute bronchitis documented in this encounter [email or web address] Phone: evaluation note* Diagnosis Left wrist pain Pain in joint, forearm documented in this encounter [employer] Phone: evaluation note* Diagnosis Viral illness- Primary Unspecified viral infection, in conditions classified elsewhere and of unspecified site documented in this encounter [employer] Phone: evaluation note* Diagnosis Injury of right ankle, initial encounter- Primary documented in this encounter [employer] Phone: evaluation note* Diagnosis Other closed fracture of proximal end of right fibula with routine healing, subsequent encounter documented in this encounter [employer] Phone: Hospital course Narrative No data available for this section [facility] Hospital Discharge instructions* Attachments The following attachments cannot be sent through Care Everywhere. 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 Relationship Specialty Start Date End Date Keyon Brown MD [address] [place] [address] [place] [address] PCP - General Family Medicine 12/04/22 Sales Special 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 Relationship Specialty Start Date End Date Keyon Brown MD [address] [place] [address] PCP - General Family Medicine 12/04/22 Sales Special Agent Relationship Specialty Start Date End Date Keyon Brown MD [address] [place] [address] PCP - General Family Medicine 12/04/22 INFORMATION SOURCE (unrecogn ized section and content) DATE CREATED AUTHOR 02/01/2023 [facility] DATE CREATED AUTHOR AUTHOR'S ORGANIZ ATION 04/01/2023 [facility] DATE CREATED AUTHOR AUTHOR'S ORGANIZ ATION 03/05/2024 Kirsty charles DATE CREATED AUTHOR AUTHOR'S ORGANIZ ATION 03/07/2024 [facility] FOR RECORDS PERTAINING TO PATIENTS WHO [...] BE BASED ON THE PRIMARY CLINICAL RECORDS. [facility] [employer] provides no warranty or guarantee of the accuracy or completeness of information in this document.
[2024-03-20 09:52] LABS: HCG Quantitative 12 mIU/mL
== END 2024-03-20 08:06 | disposition home or self-care (01) ==
PROVIDERS: Visit Provider Obstetrics & Gynecology
DX: O03.9 Complete or unspecified spontaneous abortion without complication (principal); Z51.89 Encounter for other specified aftercare
CPT/HCPCS: 36415; 84702

== ENCOUNTER 2024-03-27 08:08 | Outpatient (OUT) | payer OTHER, SELFPAY ==
--- OUTSIDE RECORDS SUMMARY | 2024-03-27 08:21 | XMS_ITS | CCD ---
Author Organization [facility] Care Team Providers Care Matte Cutter Name Role Phone Unavailable Primary Care Provider UnavailCharli Browne Primary Care Physician Kevin BENAVIDEZ, Keyon Brandon Primary Care Provider ANTHONY Carl Attending UnavailKeyon Lockett Unavailable Evan Moyer Attending Unavailable LISHA, DR DRUMMOND LISTED Consulting Unavaila [facility], DR NICOLE Primary Care Unavailable MEERA ., [...] Acetaminophen / HYDROcodone Drug Allergy 7 Rash [facility] (6 sources) Acetaminophen / oxyCODONE Drug Allergy 6 Rash [facility] (9 sources) Codeine; Translations: [codeine] Drug Allergy 7 Rash, Cutaneous eruption (morphologic abnormality) [facility] (3 sources) Acetaminophen / HYDROcodone; Translations: [acetaminophen-hy drocodone] Drug Allergy Hives [facility] (3 sources) Acetaminophen / oxyCODONE; Translations: [acetaminophen-ox ycodone] Drug Allergy Cutaneous eruption (morphologic abnormality) [facility] (1 source) Acetaminophen / HYDROcodone Drug Allergy [facility] (1 source) Acetaminophen / oxyCODONE Drug Allergy [facility] (1 source) Codeine Drug Allergy [facility] Medications Current Medications Medication Drug [...] extended release oral tablet (6 sources) Uncompetitive Z-omypwx-P-aspartate Receptor Antagonist, Sigma-1 Agonist Start: 09-14-2021 take 1 tablet by mouth every twelve hours as needed for cough Dextromethorphan- guaiFENesin 60-1200 MG TB12 Take 1 tablet by mouth every 12 hours as needed (COUGH CONGESTION) 28 tablet 0 09/14/2021 Active dextromethorphan hydrobromide 3 mg/ml / promethazine hydrochloride 1.25 mg/ml oral solution (6 sources) Phenothiazine, Uncompetitive U-tklvfs-G-aspartate Receptor Antagonist, Sigma-1 Agonist Start: 05-31-2018 promethazine-dext [...] day(s), # 30 tab(s), Refills(s) 1, Pharmacy: [facility], 170, cm, 06/01/22 12:55:00 EDT, Height/Length [...] TID, # 15 tab(s), Refills(s) 0, Pharmacy: [facility], 170, cm, 09/03/22 14:31:00 EDT, Height/Length [...] 03-04-2024 HCG, Quant 3680.0 mIU/mL High <5 [facility] Comment on above: Result Comment: Non-preg premeno <=5 Postmeno <=8 Male <=3 If HCG results do not concur with clinical observations, additional testing to confirm results is recommended. Performed By: #### B HCG #### [facility] [address] [place], [place] [id number] Probe Operator: Armen Madrigal MD CBC with Diffon 05-05-2023 Abs. Basophil 0.00 k/uL Normal 0.0-0.2 [facility] Comment on above: Performed By: #### C DP, CP #### [facility] [address] [place] [address] Probe Operator: Armen Madrigal MD Abs.Neutrophil (Seg) 5.30 k/uL Normal 2.5-7.0 [facility] Comment on above: Performed By: #### C DP, CP #### [facility] [address] [place] [address] Probe Operator: Armen Madrigal MD Auto Diff Performed YES Normal [facility] Comment on above: Performed By: #### C DP, CP #### [facility] [address] [place] [address] Probe Operator: Armen Madrigal MD Basophils/100 WBC (Bld) 1 % Normal 0-2 [facility] Comment on above: Performed By: #### C DP, CP #### [facility] [address] [place] [id number] Probe Operator: Armen Madrigal MD Eosinophils (Bld) [#/Vol] 0.00 10*3/uL Normal 0.0-0.4 [facility] Comment on above: Performed By: #### C DP, CP #### [facility] [address] [place] [id number] Probe Operator: Armen Madrigal MD Eosinophils/100 WBC (Bld) 1 % Normal 0-5 [facility] Comment on above: Performed By: #### C DP, CP #### [facility] [address] [place] [id number] Probe Operator: Armen Madrigal MD Erythrocyte distribution width (RBC) [Ratio] 13.8 % Normal 12.1-15.2 [facility] Comment on above: Performed By: #### C DP, CP #### [facility] [address] [place] [id number] Probe Operator: Armen Madrigal MD Hematocrit (Bld) [Volume fraction] 34.4 % Low 36-46 [facility] Comment on above: Performed By: #### C DP, CP #### [facility] [address] [phone] Probe Operator: Armen Madrigal MD Hemoglobin (Bld) [Mass/Vol] 11.9 g/dL Low 12.0-16.0 [facility] Comment on above: Performed By: #### C DP, CP #### [facility] [address] [place] [address] Probe Operator: Armen Madrigal MD Lymphocytes (Bld) [#/Vol] 1.90 10*3/uL Normal 1.0-4.8 [facility] Comment on above: Performed By: #### C DP, CP #### [facility] [address] [place] [address] Probe Operator: Armen Madrigal MD Lymphocytes/100 WBC (Bld) 25 % Normal 15-40 [facility] Comment on above: Performed By: #### C DP, CP #### [facility] [address] [place] [address] Probe Operator: Armen Madrigal MD MCH (RBC) [Entitic mass] 29.3 pg Normal 26-34 [facility] Comment on above: Performed By: #### C DP, CP #### [facility] [address] [place] [address] Probe Operator: Armen Madrigal MD MCHC (RBC) [Mass/Vol] 34.6 g/dL Normal 31-37 [facility] Comment on above: Performed By: #### C DP, CP #### [facility] [address] [place] [address] Probe Operator: Armen Madrigal MD MCV (RBC) [Entitic vol] 84.8 fL Normal 80-100 [facility] Comment on above: Performed By: #### C DP, CP #### [facility] [address] [place] [address] Probe Operator: Armen Madrigal MD Monocytes (Bld) [#/Vol] 0.50 10*3/uL Normal 0.0-1.0 [facility] Comment on above: Performed By: #### C DP, CP #### [facility] [address] [place], [place] [phone] (139) Probe Operator: Armen Madrigal MD Monocytes/100 WBC (Bld) 6 % Normal 4-8 [facility] Comment on above: Performed By: #### C DP, CP #### [facility] [address] [place], [place] [phone] ([phone]) Probe Operator: Armen Madrigal MD Neutrophil (Seg) 67 % Normal 47-75 [facility] Comment on above: Performed By: #### C DP, CP #### [facility] [address] [place], [place] [phone] (358) Probe Operator: Armen Madrigal MD Platelets (Bld) [#/Vol] 191 10*3/uL Normal 140-450 [facility] Comment on above: Performed By: #### C DP, CP #### [facility] [address] [place], [place] [phone] (154) Probe Operator: Armen Madrigal MD RBC (Bld) [#/Vol] 4.06 10*6/uL Normal 4.0-5.2 [facility] Comment on above: Performed By: #### C DP, CP #### [facility] [address] [place], [place] [phone] (696) Probe Operator: Armen Madrigal MD WBC (Bld) [#/Vol] 7.7 10*3/uL Normal 3.5-11.0 [facility] Comment on above: Performed By: #### C DP, CP #### [facility] [address] [place], [place] [phone] ([phone]) Probe Operator: Armen Madrigal MD Comp Metabolic Profon 2022 Albumin [Mass/Vol] 3.4 g/dL Low 3.5-5.2 [facility] Comment on above: Performed By: #### C DP, CP #### [facility] [address] [place], [place] [phone] Probe Operator: Armen Madrigal MD Alkaline Phos 44 U/L Normal 35-104 [facility] Comment on above: Performed By: #### C DP, CP #### [facility] [address] [place], [place] [phone] Probe Operator: Armen Madrigal MD ALT [Catalytic activity/Vol] 5 U/L Normal 5-33 [facility] Comment on above: Performed By: #### C DP, CP #### [facility] [address] [place], [place] [phone] Probe Operator: Armen Madrigal MD Anion gap [Moles/Vol] 11 mmol/L Normal 9-17 [facility] Comment on above: Performed By: #### C DP, CP #### [facility] [address] [place], [place] [phone] Probe Operator: Armen Madrigal MD AST [Catalytic activity/Vol] 9 U/L Normal <32 [facility] Comment on above: Performed By: #### C DP, CP #### [facility] [address] [place], [place] [phone] Probe Operator: Armen Madrigal MD Bilirubin [Mass/Vol] 0.2 mg/dL Low 0.3-1.2 [facility] Comment on above: Performed By: #### C DP, CP #### [facility] [address] [place], [place] [phone] Probe Operator: Armen Madrigal MD BUN/CRE Ratio 22 High 9-20 [facility] Comment on above: Performed By: #### C DP, CP #### [facility] [address] [place], [place] [phone] Probe Operator: Armen Madrigal MD Calcium [Mass/Vol] 8.8 mg/dL Normal 8.6-10.4 [facility] Comment on above: Performed By: #### C DP, CP #### [facility] [address] [place] [address] Probe Operator: Armen Madrigal MD Chloride [Moles/Vol] 104 mmol/L Normal 98-107 [facility] Comment on above: Performed By: #### C DP, CP #### [facility] [address] [place] [address] Probe Operator: Armen Madrigal MD CO2 [Moles/Vol] 19 mmol/L Low 20-31 [facility] Comment on above: Performed By: #### C DP, CP #### [facility] [address] [place] [address] Probe Operator: Armen Madrigal MD Creatinine [Mass/Vol] 0.55 mg/dL Normal 0.50-0.90 [facility] Comment on above: Performed By: #### C DP, CP #### [facility] [address] [place], [place] [phone] Probe Operator: Armen Madrigal MD GFR/1.73 sq M.predicted among non-blacks MDRD (S/P/Bld) [Vol rate/Area] mL/min/{1.73_m2} Normal >60 [facility] Comment on above: Result Comment: These [...] Performed By: #### C DP, CP #### [facility] [address] [place], [place] [phone] Probe Operator: Armen Madrigal MD Glucose [Mass/Vol] 86 mg/dL Normal 70-99 [facility] Comment on above: Performed By: #### C DP, CP #### [facility] [address] [place] [address] Probe Operator: Armen Madrigal MD Potassium [Moles/Vol] 3.8 mmol/L Normal 3.7-5.3 [facility] Comment on above: Performed By: #### C DP, CP #### [facility] [address] [place], [place] [phone] Probe Operator: Armen Madrigal MD Protein [Mass/Vol] 6.0 g/dL Low 6.4-8.3 [facility] Comment on above: Performed By: #### C DP, CP #### [facility] [address] [place] [address] Probe Operator: Armen Madrigal MD Sodium [Moles/Vol] 134 mmol/L Low 135-144 [facility] Comment on above: Performed By: #### C DP, CP #### [facility] [address] [place], [place] [phone] Probe Operator: Armen Madrigal MD Urea nitrogen [Mass/Vol] 12 mg/dL Normal 6-20 [facility] Comment on above: Performed By: #### C DP, CP #### [facility] [address] [place] [address] Probe Operator: Armen Madrigal MD Urinalysis, Routineon 2022 Bilirubin, SemiQt,Ur Negative Normal NEG [facility] Comment on above: Performed By: #### U A #### [facility] [address] [place] [address] Probe Operator: Armen Madrigal MD Blood, Urine Negative Normal NEG [facility] Comment on above: Performed By: #### U A #### [facility] [address] [place], [place] [phone] Probe Operator: Armen Madrigal MD Clarity (U) Clear Normal CLEAR [facility] Comment on above: Performed By: #### U A #### [facility] [address] [place], [place] [phone] Probe Operator: Armen Madrigal MD Color (U) Yellow Normal YEL [facility] Comment on above: Performed By: #### U A #### [facility] [address] [place], [place] [phone] Probe Operator: Armen Madrigal MD Comment Normal [facility] Comment on above: Performed By: #### U A #### [facility] [address] [place], [place] [phone] Probe Operator: Armen Madrigal MD Glucose Ql (U) Negative Normal NEG [facility] Comment on above: Performed By: #### U A #### [facility] [address] [place] [address] Probe Operator: Armen Madrigal MD Ketones Ql (U) TRACE Abnormal NEG [facility] Comment on above: Performed By: #### U A #### [facility] [address] [place], [place] [phone] Probe Operator: Armen Madrigal MD Leukocyte esterase Test strip Ql (U) Negative Normal NEG [facility] Comment on above: Performed By: #### U A #### [facility] [address] [place], [place] [address] Probe Operator: Armen Madrigal MD Nitrite,Ur Negative Normal NEG [facility] Comment on above: Performed By: #### U A #### [facility] [address] [place], [place] [phone] Probe Operator: Armen Madrigal MD PH,Ur 6.0 Normal 5.0-8.0 [facility] Comment on above: Performed By: #### U A #### [facility] [address] [place], [place] [phone] Probe Operator: Armen Madrigal MD Protein Ql (U) Negative Normal NEG [facility] Comment on above: Performed By: #### U A #### [facility] [address] [place] [address] Probe Operator: Armen Madrigal MD Spec. [place],Ur 1.025 Normal 1.005-1.030 [facility] Comment on above: Performed By: #### U A #### [facility] [address] [place] [address] Probe Operator: Armen Madrigal MD Urobilinogen,Ur Normal Normal NORM [facility] Comment on above: Performed By: #### U A #### [facility] [address] [place], [place] [id number] Probe Operator: Armen Madrigal MD RAD - MISCon 02-01-2023 RAD - MISC [id number] #1.00CD:[address] [facility] XR ANKLE RIGHT (MIN 3 VIEWS) on 01-29-2023 FINDINGS/IMPRESSION: 1. Compression fracture tip of the fibula no longer separately seen. 2. Anatomic alignment throughout. 3. Soft tissue swelling has resolved. [facility] EXAM: XR ANKLE RIGHT (MIN 3 VIEWS). HISTORY: Other closed fracture of proximal end of right fibula with routine healing, subsequent encounter. COMPARISON: 01/10/2023. [facility] Mauro Anton Jr., MD - 01/29/2023 EXAM: XR ANKLE RIGHT (MIN 3 VIEWS). HISTORY: Other closed fracture of proximal end of right fibula with routine healing, subsequent encounter. COMPARISON: 01/10/2023. IMPRESSION: FINDINGS/IMPRESSION: 1. Compression fracture tip of the fibula no longer separately seen. 2. Anatomic alignment throughout. 3. Soft tissue swelling has resolved. [employer] Phone: Radiology Study observation (narrative) [employer] Phone: XR ANKLE RIGHT (MIN 3 VIEWS) Ordered By: Mauro Anton on 01-29-2023 [employer] Phone: RAD - MISCon 01-11-2023 RAD - MIS [id number] #1.00CD:[address] [facility] XR ANKLE RIGHT (MIN 3 VIEWS) on 01-10-2023 FINDINGS/IMPRESSION: 1. Very small nondisplaced incomplete fracture is questioned in the distal tip of the right fibula, with mild surrounding soft tissue swelling. 2. No other fracture, malalignment, significant arthritis or acute bony abnormality is seen. [facility] CLINICAL HISTORY: Right ankle pain and swelling since an injury yesterday. RIGHT ANKLE 3 VIEWS: [facility] João Amezquita MD - 01/10/2023 CLINICAL HISTORY: Right ankle pain and swelling since an injury yesterday. RIGHT ANKLE 3 VIEWS: IMPRESSION: FINDINGS/IMPRESSION: 1. Very small nondisplaced incomplete fracture is questioned in the distal tip of the right fibula, with mild surrounding soft tissue swelling. 2. No other fracture, malalignment, significant arthritis or acute bony abnormality is seen. [employer] Phone: Radiology Study observation (narrative) [employer] Phone: XR ANKLE RIGHT (MIN 3 VIEWS) Ordered By: João Amezquita on 01-10-2023 [employer] Phone: Ambulatory Visit Summaryon 0 12-08-2022 Ambulatory Visit Summary MEENA READ :1995 Visit Date:12/08/2022 Ambulatory Visit Instructions Your Diagnosis Gastroenteritis due to [place]-like virus Obesity due to excess calories BMI [...] to 60 minutes before meals Pickup at [facility] Unchanged multivitamin, ( Multivitamins with Vitamin B Complex, Vitamin C, Minerals and L-Methylfolate oral capsule) 1 Capsules By Mouth Every day Contact prescribing physician if questions or concerns Unchanged ondansetron (Zofran ODT 4 mg Tab-Dis) 1 Tablets By Mouth 3 times a day Contact prescribing physician if questions or concerns Pharmacy Information [facility]: [address] [place], [place] [id number] [phone] Medications and Immunizations Administered Not Given influenza virus vaccine, inactivated, Postpone due to refusal SARS-CoV-2 mRNA (tozinameran 5y-11y) vac, Postpone due to refusal Allergies Percocet 5/325 (Hives, Rash) Vicodin (Hives) codeine (Hives, Rash) Problems Ongoing - Any problem that you are currently receiving treatment for. BMI 31.0-31.9,adult Gastroenteritis due to [place]-like virus Non-smoker Obesity due to excess calories [...] 1 years old. ? Live in a halfway. ? Travel on cruise ships. What are [...] immune system (more content not included)... Normal [facility] ED Note-Physicianon 12-08-19 ED Note-Physician [id number] #1.00CD:[address] [facility] Family Medicine Office/Clini c Noteon 12-08-2022 [...] influenza and COVID. 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 Gastroenteritis due to [place]-like virus (A08.8: Other specified intestinal infections) Viral [...] day(s), # 30 tab(s), Refills(s) 0, Pharmacy: [facility], 170, cm, 12/08/22 12:00:00 EST, Height/Length Dosing, 90.5, kg, 12/08/22 12:00:00 EST, Weight Dosing Follow-up With When Contact Information Keyon BROWN MD, FAM Only if needed Additional Instructions: Patient Education Viral Gastroenteritis, Adult Problem List/Past Medical History Ongoing BMI 31.0-31.9,adult Gastroenteritis due to [place]-like virus Non-smoker Obesity due to excess calories [...] Alcohol Use, 05/26/2017 Employment/School 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 Normal [facility] Comment on above: Result Comment: Elec [...] 1 years old. ? Live in a halfway. ? Travel on cruise ships. What are [...] and water are not available, use hand town manager. ? Make sure that all people in your household wash their hands well and often. ? Take qadv-yha-aomrlgz and prescription medicines only as told by [...] to person (more content not included)... Normal [facility] COVID-19, Rapidon 12-04-2022 SARS-CoV-2 (COVID-19) RNA WADE+probe Ql (Unsp spec) Not detected Not Detected [facility] Comment on above: Rapid NAAT: The [...] management decisions. Fact sheet for Healthcare Providers: https://www.fda.gov/media/777983/download Fact sheet for Patients: https://www.fda.gov/media/243913/download Methodology: Isothermal Nucleic Acid Amplification Specimen Description .NASOPHARYNGEAL SWAB [facility] Rapid influenza A/B antigens on 12-04-2022 Flu A Antigen Negative NEGATIVE [facility] Comment on above: for Influenza A Anti gen Flu B Antigen Negative NEGATIVE [facility] Comment on above: for Influenza B Anti gen. [facility] C Urineon 09-06-2022 Bacteria identified Cx [...] Locations R1: This test was performed at: [facility], [address] [place] [address], [facility] , , [facility] Comment on above: Performed By: #### 2 [id number] ####[facility] [address] [place] [address] Coding Summary.on 09-04-2022 Coding Summary. [id number] Gh0bWw+PGhlYWQ+PE1FV OClC85nkIOxuQ6EK1fRE W5AAPMIWFPNRN5FMO0jp IR3AEbsO2LehuVu GdggjVNzBS87VWl0KUE7 dRnkBBxxcU6xyQLjV9n0 HzPuNK66dJ45VEhrZWRz JpL6JeBqpzfazSIg G7nvTdUmdSIpBat+PHRh YmxlIHdpZHRoPScxMDAl KjOicPjeTR9aVl4bSGQg LWNvbGxhcHNlOiBj x5vbVBAjZAgeJA8exBae I3IydQO5MHHyb1f2Bx69 dHI+JORpPWO4xFupGTbz d103JfBil8srKSN5 uTSyZSkbHSE8X87mm4K4 PDMvGKKxSZB4hSP8jK4s yHatnvpnQ8OilJJoFtW3 WCO4iIAzlJ0dzDnj epynfO7lKji+C96OBP7C NMLJUI0JUmh5B6FxYsca dHI+KX41CEQgTX18ePOk oTQdu5mqbWy1ZaGb UZYqPQW3dGtiZJoif2Qj ISQsQ88tdUXzs4V8QJXf bOfwnFAxCoLofVF3hC8v BHpchmrto1iljxgk Ezuag6mdeg84cI38P06c XJcxLBYuVGK7DLUuFOAd hXfsrs1fhR0zIu3+IDxj s9rdl7mbfNo7OcXk TMZpobQzzNsvGGX0q8Ce Pw69E0WgtMjee3SvNuj3 pp55wUPer4T7vLI1KZhb FNOmcS2oDZrgJyQ3 SWOkAhHjwT19cAEaNEis Me1yrIlfdDovHZ7rSNTr hvujIJWdeS0xXLPcnSRj zHqyUP1nPYXsidse c922ZlFzFGB4MSCtsWRd L5GziM1jNfEhDVEeTEUt O3YcyNPgHCckH476AWwu EgM0ZTUtllHpV1Aa GBPnhNctBpB3g2W8Fh0C l0XmrcvaDEU8CQmpPBEn FoG7SaPjKhQ9U1LgIxf9 NYVssJyeUU0qY9Fc VZJkmwhzdnpkcFN8TVYg PTVpjG92qZFjAFtvGl9c c0K6n029LKYwBQOiyP38 Cm7xdMzlUWKonCVR jW8gbpwrd8elgtvdEtAr YRCyQWr7ZRe3SBSqwLkd OwOrMRV9BjP3PKQ5jRVf iK3stQqrigehhS6u Oyc+J33gfT1wARQ5AYT8 uglqBQWqkiRfWD73IF39 B0PiNcbjnSAswRI+PGRp ygZfjMqvCN0lWdYo o2mmg6AlZCjpX7MxKMKi SVkpFly7QPEsYMJ6nST4 jB3jVTIqDGgef3D3bBU1 O3QvixDkry4sw7gd RAWqVMmjH50dvNKfy2B2 RGYwwYD2FIJxiQvvZmAu zW02Lza+OKYolZxto0Mj Fkllr3ynn3bcjAh4 IjMwJSIgdmFsaWduPSJ0 v1PlIr21X23vGWsvPXCc BKGeOTJzPPYznYzgcd1q oI5nCh0+PGNvbCB3 hMB5gO6jMFOcZnN5MLwg A307RpXjrKIyRbaks8ic y7dqvNg2UsLdYTJdmdOo sYrbBEG1t6WoZu84 Z22nYTstBEByHWQuRZDq FSXasJybds5pmW5vQz4+ VG7km2ykoq30bP77xYF+ GJEqIGV0rYoeWGfg HRQsqR7kYZomWvL7VRYo FxClyP13zTWnVGqqLu6r fZizpEuuMY4gLGWlnfhs t600IyIgd9vnOGAh qGEdSJhtXCE1E62rv2A3 WDLjDRKsOTI0jZG5sN4p bGlnbjogbGVmdDsgdmVy kLwpFEucNKhbL063 IHRvcDsnPlBhdGllbnQg UuCbVHc7U3FgWwp2HRCu sLmyMR8zrMBrBJglGh5y sAgznPxqOG3nWJAj nzjcy143ZfOub8qoYLFw iTYkVUezLOE7G78ht9V4 WMLbUVGkLDU1vWX6qA4h bGlnbjogbGVmdDsg mlVedWpyXLakOStbO085 IHRvcDsnPkJpcnRoIERh dNK1MP13QW10aQKdh0L8 jGI5J2McUWYbepat usrljSE9WAHaFVKccO95 Sp1juVafQr6fEUYfPTL8 XLPvaQHlI7ZaoZ8jNcJl AUApZCWsU1ZtbYGp TIalH722OLysMsJ3TGRr moEfP3FiMNInbOxoVzC2 h5F9Qq6SQ2Y0YJ97IM38 zSYgu9L0mTK9R1Yc MJWtggslqvptoDS4CZWr AAFyrY52Sw6uxOiiLz2s DYBnXDM1HEOpaURiY0Jb oI9pWcJtWORhSNCg Y0IjtEXkPQfvK237OSkp CyS6DARlctCjC8BhVGGt sDlhKoE2o6J7Mn4BZKq5 UC70CD58xWUho6Q9 rPF3I3BkILRxqxnwgyyu mUS2NMOfYBWwiY07Nd9f rLwuBu6iADUpZEW1AOUu yVRgT7EonB9tJqGi NFQfVICiM9GtkYHoPDcm E427SZxmKyD6NZMkprTa O0HzNIRkeOpsZvG6p9J9 Sg3EGJNgOO20WNM8 cZJ0AY70WU26T4ElXavr dGFibGU+PHRhYmxlIHdp ZHRoPScxMDAlJyBzdHls DA2lFt4oCPTwCDEz nQvqlJOdZzSqm8ghIXIq NJsvPT4cmPwcS6InsZT7 PSUth0r6Bf65X11jE7Lf dXA+LCJvlMO8wGA6 wQ2oIxRwMiI9OXefD403 MjZgaFRgWnjqa5fqn9hd iUs7JaX6IKHafzGujTlg FOQ4z8MwXn83V70n IHdpZHRoPSIxNSUiIHZh sTbhhh7ptY1tRw0+PGNv tHM8hBF9kY9kFkNvHrU1 WQqqI702CiFvfCEo Cofyr5yzv9borSt8GsCb BUWrwtYimPcnMBT5p5Af Fn90G1MmwTahv1ZzVya3 ee00xJLov9C1wIA9 B2CiJIBajnshaRLsiLed BY5bQARfespnAROwjL2y OWMiI0z5RvRzPrC9IKjn O1AvzqV5PZTutTDm LRycUEL3D43qx2I7HYVs MGYrTHO7vRU2xW0hlUod bjogbGVmdDsgdmVydGlj SRnkWObeO452THPd aKesOUIkxT6aHMYktMFf kAitRM7xOCBsrfjtFkLY Wx9RTCBsANaMVPiPUX5n RTwvdGQ+PHRkIHN0 aBdfCLhdEEMecP0jEABy U3y3UzFyVjI6AZalY1Ct FIGxfqnrWk75iC8wYrTd YdU3JLpwT7FbzxD3 JFKmiJBmOYkiLQB4J58m i3U6TBRfWKOfRCP0vBQ1 wN0nxIrajewwaNQkxMsc dmVydGljYWwtYWxp X810ALRdsMzxRuIfDfU7 UtN8HFL2R0XbDiq4QJHs rFdsIN9cnUNoJRraBr0j xVuhbPdtWO3dLMTy ucrqJZRkfD3lTZKycOEs xXxwPJ2rOLUecbyfg316 OxNfGPC8FIVtyUMfU0Mc cW0hUjLtCGLvOECf L7HchTPsKKdaK388DOiv YiB2TOBknsSjE7IzWIFx yZlwKhP0d6N0Hr5cRjJN ZWFyczwvdGQ+PHRk JWD9tKemOHhsFZZewN9k MNZvG9p8CkBqWbN1FYia W9IiQQXfwxheNx77cY7z MkNiApG4DAehY3Ud wqF1IGTjsRZrNKkjWQH2 N09wf4Z4VSVpJXYeDJU3 rVL7vO7uhYjkvbuzvVPi dDsgdmVydGljYWwt ALxiR050PELtcIvkUtIh bWFsZTwvdGQ+PHRkIHN0 dCuaJDuaPXTcfZ9vMTNn R5g6OvKhJnZ5PWhr S2KoAHBdkromTe49tQ7h DxZdFgA2HGjrY1CmzfI8 DXFxsKTwDQeiCKB3L39o p8N3GRVvZREjRHS3 tXJ7yI4pkHbwbtvbpVLz dDsgdmVydGljYWwtYWxp K881VNOltQjvLpDsCOZo ZA0xeImirDD+PC90 le04T1RsErovGen4EMVn PCZ2vZI0sT3gBDPlCRhl p5K2kKT9C5KnndBsyg7z b0spIRFlKYckV45m rTKij0P4IXZqnKC7IVLf vEgrJfHlpY11Zrw+PGNv eXdfv8AjXqgyc8ljd2mk gGa3QdWdQDNmnbUu uYgtKLH7u1ZbKp88Y80y IHdpZHRoPSIzMCUiIHZh dRxtfc2ovV0mMf7+PGNv qDA0mQZ9zK3dZdBa MjZ3MNdxC835IsDvnEEi Dbnpd7zkr0hqmOs0JjJm ZWHhdcGvfQfrOTB8r4Cl Og16R3IetXhxp0Sq Nwx3lp19lGVne9S4rSJ1 R0CzIDCrejgzzPWgqIiy DK5yPTRsbtdkKQZadI5n VRWuF8x6CaVvCoF7 LUxkY7CcyiP7LMOqfFXl SETblVBYlU2gbcnvv7cg ryufMwPaVDFjXCv8XWy4 LWFsaWduOiBsZWZ0 PpE3YVN0vBDpbY0dmFgl rqhioM2sYwp+AVb5o2fr uTCpVT9rrIN6ZW87IM46 oSKnp8A7bQS2B6Fv KEHlyzkadhvrnHB4GAJg RVSnsM31Cm2niNgePm2z DGOsJTB0VNNanXWxF1Bv vO3mRbJxCHTmEACq F8GjgGVhBOtwB167BYul RsV3GYTtgsRcU6RpVUGi gPzgUqA5c0Z6Jo7WGS87 YG74PB96pURyd7N2 sBH7W3XdIEYztxqfdugc zMI2YQEkRLKxbK40Rt8t iFtpCn1kZPTyLBH4YZMm eFBiY4IthL7lDtFt GDBdKWMaM5DfqNGxJVvb I946XJdtQrH1VWLunmBh Q5VoJGLmoJpvVcC5g2W1 Td7ZSo46TI78WL03 wOKiv9M7yDH8A3FiTUTy aeptohurrWC1GBCrDFPo nT13Fo3rrLipYm2eAZSq NXR8GNMohEUgW8Uj hC4rHzEbCWWiPGScJ2Fj iCGjKXjvU305RWcqUoM2 UMWygsQpZ7QbDIQrmJzg SaI9q6H7Tb3QFZir wiq5Q7QkPdtslQV+PC90 IPJhHF50oHMxdMOaf4vk vYj8GzHpXMHgELO8lWml OVsbk2JtCVItL24v bGFw (more content not included)... Normal [facility] Consent for Treatmenton 10- Consent for Treatment [id number] #1.00CD:[address] [facility] Discharge Instructionson Discharge Instructions [id number] #1.00CD:[address] [facility] ED Clinical Summaryon 2021 ED Clinical Summary [place] [id number] ED Clinical Summary Person Information Name: MEENA READ [place] Age: 26 Years : 1995 Sex: Female Language: Swazi PCP: Charli LOPEZ Marital Status: Single Visit [...] 09/03/2022 15:51:51 09/03/2022 15:51:51 09/03/2022 15:51:51 ADDRESS: [address] [place] [id number] PHYS DOC NOTES: MEDICAL INFORMATION: Prescriptions Given: New Medications [facility], [address] [place], [place] [id number], [phone] ondansetron (Zofran ODT 4 mg Tab-Dis) 1 Tablets By Mouth 3 times a day. Refills: 0. Medications to Continue with No Changes Other Medications multivitamin, ( Multivitamins with Vitamin B Complex, Vitamin C, Minerals and L-Methylfolate oral capsule) 1 Capsules By Mouth every day. Refills: 0. PATIENT EDUCATION INFORMATION: Instructions: Nausea and Vomiting, Adult Follow up: With: Address: When: Charli CARLSON [address] [place] [id number] Business (1) In 3 days 09/06/2022 DIAGNOSIS: Nausea & vomiting Normal [facility] ED Note-Physicianon 09-03-20 ED Note-Physician Basic [...] TID, # 15 tab(s), Refills(s) 0, Pharmacy: [facility], 170, cm, 09/03/22 14:31:00 EDT, Height/Length [...] CARLSON In 3 days 09/06/2022 EDT [address] [place] [address] [facility] (1) Additional Instructions: Patient Education Nausea and Vomiting, Adult Attestation Patient seen and evaluated by the physician assistant county attorney. Attending physician was present in the emergency department and supervised care. This visit was performed by both the physician and an APC. I performed all aspects of the MDM as documented. This report was transcribed using voice recognition software. Every effort was made to ensure accuracy, however, inadvertently computerized jig and fixture builder mistakes may be present. Appropriate healthcare PPE [...] (09/03/22 14:49:0 (more content not included)... Normal [facility] Comment on above: Result Comment: Elec [...] added (diluted fruit juice). ? Eat bland, sexq-me-lsxjtl foods in small amounts as you are able. These foods include bananas, applesauce, rice, lean meats, toast, and crackers. ? Avoid fluids that contain a lot of sugar or caffeine, such as energy drinks, sports drinks, and soda. ? Avoid alcohol. ? Avoid spicy or fatty foods. General instructions ? Take fkxr-uwz-zkvmabv and prescription medicines only as told by your health care provider. ? Drink enough fluid to keep your urine pale yellow. ? Wash your hands often using soap and water. If soap and water are not available, use hand town manager. ? Make sure that all people in [...] and drinking to prevent dehydration. ? Take eqdd-ilz-znndhyu and prescription medicines only as told by [...] 11/08/2006 Document Revised: 03/01/2020 Document Reviewed: 04/18/2019 [employer] Patient Education ? 2019 [employer] Normal [facility] ED Patient Summaryon 022 ED Patient Summary [place] [id number] Patient Discharge Instructions Person Information Name: MEENA READ Age: 26 Years Arrival Date: 09/03/2022 14:27:10 Discharge Diagnosis: Nausea & vomiting Primary Care Physician: Charli LOPEZ Provider Information Primary Provider: Evan Moyer DO Advanced Filter Bed Placer:Neil Meza PA-C The exam and treatment you received in the Emergency Department were for an urgent problem and are not intended as complete care. It is important that you follow up with a doctor, nurse practitioner, or physician?s assistant county attorney for ongoing care. If your symptoms become worse or you do not improve as expected and you are unable to reach your usual health care provider, you should return to the Emergency Department. We are available 24 hours a day. MEENA READ has been given the following list of patient education materials, prescriptions and follow-up instructions: Follow-up Instructions: With: Address: When: Charli Gaines [place] [phone] Business (1) In 3 days 09/06/2022 In the event that this physician does not participate in your insurance network, please consult with your insurance company to find a nearby participating provider. Patient Education Materials: Nausea and Vomiting, Adult A MESSAGE TO ALL PATIENTS REGARDING OPIOIDS PRESCRIPTION OPIOIDS: WHAT YOU NEED TO KNOW Prescription opioids can be used to help relieve mdebepoz-cd-jcvxoq pain and are often prescribed following a [...] be struggling with addiction, tell your health rn wound care and ask for guidance or call [facility] National Helpline at 7-621-396-SBEG. v Source: US Dep (more content not included)... Normal [facility] U BetaHcg Qualon 09-03-2022 HCG.beta subunit (U) [Moles/Vol] Negative Normal [facility] Comment on above: Performed By: #### 2 [id number], [id number], [id number] ####[facility] [address] [place] [address] UA With Cult Reflexon 2021 Bacteria LM Ql (Urine sed) 2+ /HPF Abnormal Trace [facility] Comment on above: Performed By: #### 2 [id number], [id number], 9377541 ####[facility] [address] [place] [address] Bilirubin Ql (U) Negative Normal Negative [facility] Comment on above: Performed By: #### 2 8851573, 13291068, 7254116 ####[address] [address] Clarity (U) CLEAR Normal Clear [facility] Comment on above: Performed By: #### 2 [id number], [id number], 6466101 ####[address] [address] Color (U) YELLOW Normal Yellow [facility] Comment on above: Performed By: #### 2 0681872, 39437632, 4100537 ####[place] 0846957 Epithelial cells.squamous LM.HPF (Urine sed) [#/Area] 5-8 Normal 0-2 [facility] Comment on above: Performed By: #### 2 1757856, 69019444, 4069043 ####[facility] [address] [place] [address] Glucose Test strip (U) [Mass/Vol] Negative Normal Negative [facility] Comment on above: Performed By: #### 2 4203627, 64697070, 7603695 ####[address] [address] Hemoglobin Ql (U) Negative Normal Negative [facility] Comment on above: Performed By: #### 2 8364370, 08010142, 3258442 ####[address] [address] Ketones (U) [Mass/Vol] Negative Normal Negative [facility] Comment on above: Performed By: #### 2 0929144, 43219399, 0329281 ####[address] [address] [place].plasma/Lit hium.RBC (Bld) [Mass ratio] 0-3 Normal 0-3 [facility] Comment on above: Performed By: #### 2 7004760, 46482041, 0249351 ####[address] [address] Mucus Ql (Urine sed) 1+ Normal [facility] Comment on above: Performed By: #### 2 0870012, 17516461, 1907738 ####[address] [address] Nitrite Ql (U) Negative Normal Negative [facility] Comment on above: Performed By: #### 2 0573928, 32091353, 2768702 ####[address] [address] pH (U) 5.5 [pH] Invalid Interpretation Code 5.0-9.0 [facility] Comment on above: Performed By: #### 2 3657924, 69834458, 9349968 ####[place] [address]846957 Protein (U) [Mass/Vol] Negative Normal Negative [facility] Comment on above: Performed By: #### 2 5754821, 48805178, 6266651 ####[place] 0846957 Specific gravity (U) [Rel density] >=1.030 Invalid Interpretation Code 1.005-1.030 [facility] Comment on above: Performed By: #### 2 1137521, 06488483, 6184054 ####[place] [address]846957 Type of Urine collection method Clean Catch Normal [facility] Comment on above: Performed By: #### 2 4331156, 01509002, 6209272 ####[address] [address] Urobilinogen Qn (U) 0.2 {Elver'U}/dL Normal 0.0-1.0 [facility] Comment on above: Performed By: #### 2 5708577, 71583826, 2913608 ####[address] [address] WBC Auto Ql (U) Negative Normal Negative [facility] Comment on above: Performed By: #### 2 0112451, 17038162, 9866617 ####[facility] [address] [place] [address] WBC LM.HPF (Urine sed) [#/Area] 0-5 Normal 0-5 [facility] Comment on above: Performed By: #### 2 3464048, 83898215, 0762102 ####[facility] [address] [place] [address] XR WRIST LEFT (MIN 3 VIEWS)o n 06-19-2022 Normal left wrist. [facility] EXAM: XR WRIST LEFT (MIN 3 VIEWS) HISTORY: M25.532. 26-year-old female, left wrist pain. COMPARISON: None. TECHNIQUE: Three views left wrist. FINDINGS: The radiocarpal joint and wrist are normal. Normal scapholunate distance. No erosion or chondrocalcinosis. [facility] Mauro Anton Jr., MD - 06/19/2022 EXAM: XR WRIST LEFT (MIN 3 VIEWS) HISTORY: M25.532. 26-year-old female, left wrist pain. COMPARISON: None. TECHNIQUE: Three views left wrist. FINDINGS: The radiocarpal joint and wrist are normal. Normal scapholunate distance. No erosion or chondrocalcinosis. IMPRESSION: Normal left wrist. 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 pain has been constant for about 1 week now. History of Present Illness Pt presents today to [facility] care. Previous pt of [facility] in [place]. Concerned today about left wrist pain which started about 1 yr ago; pain has worsened over the last week. 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 Carries everything in her left hand. Right handed. Pain location: medial martinez hand, radiating to wrist Pain description: shooting Pain rated: 2/10, 7/10 with certain movements. 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 Negative Tinels and DeQuervians. + Phalens. Door Patcher strength equal. Neurologic: Cranial nerves II-XII grossly intact. Skin: [place], warm and dry. No rashes, ulcerations, or [...] day(s), # 30 tab(s), Refills(s) 1, Pharmacy: [facility], 170, cm, 06/01/22 12:55:00 EDT, Height/Length Dosing, 91.3, kg, 06/01/22 12:55:00 EDT, Weight Dosing [facility] External Ambulatory Referral 2. BMI 31.0-31.9,adult (Z68.31: Body mass index [BMI] 31.0-31.9, adult) The standard range for ages 18 and older is >=18.5 and < 25 kg/m2. Your BMI today was above this range, this falls in the obese category and there are medical benefits to weight loss. We can offer counselling, referral, and/or medical support in addressing this problem. Visit [email or web address] for useful information to help make better [...] unspecified fo (more content not included)... Normal [facility] Comment on above: Result Comment: Elec [...] height. This can be done either in [place]azi ([place] or metric measurements. Note that charts are available to help you find your BMI quickly and easily without having to do these calculations yourself. To calculate your BMI in [place] ([place].S[place] measurements, your health care provider will: [...] problems. ? BMI can be measured using Swazi measurements or metric measurements. ? To interpret [...] 07/20/2005 Document Revised: 10/21/2018 Document Reviewed: 09/21/2018 [employer] Patient Education ? 2019 [employer] Orthopedics Carpal Tunnel Syndrome Carpal tunnel syndrome [...] Having a job, such as being a business management intern or a casino cashier, that requires you to repeatedly move [...] and midd (more content not included)... Normal [facility] Physician Referralon 022 Physician Referral [id number] #1.00CD:[address] [facility] Vital Signs Date Time Vital Sign Value Performing Clinician Faci litmariya 01-10-2023 14:29-0500 Body height 165.1 cm Fei Canales MD Work Phone: [facility] 01-10-2023 14:29-0500 Body mass index (BMI) [Ratio] 34.35 kg/m2 Fei Canales MD Work Phone: [facility] 01-10-2023 14:29-0500 Body temperature 98.49 [degF] Fei Canales MD Work Phone: [facility] 01-10-2023 14:29-0500 Body weight 93.62 kg Fei Canales MD Work Phone: [facility] 01-10-2023 14:29-0500 Diastolic blood pressure 79 mm[Hg] Fei Canales MD Work Phone: [facility] 01-10-2023 14:29-0500 Heart rate 75 /min Fei Canales MD Work Phone: [facility] 01-10-2023 14:29-0500 Respiratory rate 16 /min Fei Canales MD Work Phone: [facility] 01-10-2023 14:29-0500 SaO2% (BldA) [Mass fraction] 99 % Fei Canales MD Work Phone: [facility] 01-10-2023 14:29-0500 Systolic blood pressure 140 mm[Hg] Fei Canales MD Work Phone: [facility] 12-08-2022 11:51-0500 Blood Pressure Location Keyon BROWN [facility] 12-08-2022 11:51-0500 Body temperature 98.24 [degF] Keyon BROWN [facility] 12-08-2022 11:51-0500 Diastolic blood pressure 78 mm[Hg] Keyon BROWN [facility] 12-08-2022 11:51-0500 Heart rate 84 /min Keyon KEVIN [facility] 12-08-2022 11:51-0500 Respiratory rate 16 /min Keyon BROWN [facility] 12-08-2022 11:51-0500 SaO2% (BldA) [Mass fraction] 100 % Keyon BROWN [facility] 12-08-2022 11:51-0500 Systolic blood pressure 114 mm[Hg] Keyon BROWN [facility] 12-04-2022 16:32-0500 Body mass index (BMI) [Ratio] 33.66 kg/m2 Jason Tracy MD Work Phone: [email or web address] 12-04-2022 16:32-0500 Body temperature 98.49 [degF] Jason Tracy MD Work Phone: [email or web address] 12-04-2022 16:32-0500 Body weight 91.76 kg Jason Tracy MD Work Phone: [email or web address] 12-04-2022 16:32-0500 Diastolic blood pressure 75 mm[Hg] Jason Tracy MD Work Phone: [email or web address] 12-04-2022 16:32-0500 Heart rate 91 /min Jason Tracy MD Work Phone: [email or web address] 12-04-2022 16:32-0500 Respiratory rate 16 /min Jason Tracy MD Work Phone: [facility] 12-04-2022 16:32-0500 SaO2% (BldA) [Mass fraction] 99 % Jason Tracy MD Work Phone: [email or web address] 12-04-2022 16:32-0500 Systolic blood pressure 123 mm[Hg] Jason Tracy MD Work Phone: [facility] 06-01-2022 12:50-0400 Blood Pressure Location Meena Carl [facility] 06-01-2022 12:50-0400 Body temperature 96.98 [degF] Meena Carl [facility] 06-01-2022 12:50-0400 Diastolic blood pressure 60 mm[Hg] Meena Carl [facility] 06-01-2022 12:50-0400 Heart rate 88 /min Meena Carl [facility] 06-01-2022 12:50-0400 SaO2% (BldA) [Mass fraction] 97 % Meena Carl [facility] 06-01-2022 12:50-0400 Systolic blood pressure 122 mm[Hg] Meena Carl [facility] 09-14-2021 10:15-0400 Body mass index (BMI) [Ratio] 31.62 kg/m2 Keyon Wilkinson MD Work Phone: [facility] Work Phone: 09-14-2021 10:15-0400 Body weight 86.18 kg Keyon Wilkinson MD Work Phone: [facility] Work Phone: 09-14-2021 10:14-0400 Body height 165.1 cm Keyon Wilkinson MD Work Phone: [facility] Work Phone: 09-14-2021 10:14-0400 Body temperature 98.2 [degF] Keyon Wilkinson MD Work Phone: [facility] Work Phone: 09-14-2021 10:14-0400 Diastolic blood pressure 93 mm[Hg] Keyon Wilkinson MD Work Phone: [facility] Work Phone: 09-14-2021 10:14-0400 Heart rate 91 /min Keyon Wilkinson MD Work Phone: [facility] Work Phone: 09-14-2021 10:14-0400 Respiratory rate 20 /min Keyon Wilkinson MD Work Phone: [facility] Work Phone: 09-14-2021 10:14-0400 SaO2% (BldA) [Mass fraction] 96 % Keyon Wilkinson MD Work Phone: [facility] Work Phone: 09-14-2021 10:14-0400 Systolic blood pressure 131 mm[Hg] Keyon Wilkinson MD Work Phone: [facility] Work Phone: Encounters Encounter Date Encounter Type Care Provider Facility Start: 03-06-2024 End: 03-06-2024 ambulatory YULIA MEERA Not Available Start: 03-04-2024 End: 03-05-2024 ambulatory YULIA JEFF [facility] Start: 03-04-2024 Emergency department patient visit [facility] Start: 12-08-2023 End: 12-08-2023 ambulatory YULIA MEERA Not Available Start: 10-25-2023 End: 10-25-2023 ambulatory YULIA MEERA Not Available Start: 10-18-2023 End: 10-18-2023 ambulatory YULIA MEERA Not Available Start: 10-07-2023 End: 10-07-2023 ambulatory YULIA MEERA Not Available Start: 07-19-2023 End: 07-19-2023 Emergency department patient visit [facility] Start: 05-05-2023 End: 05-05-2023 Emergency department patient visit [facility] Start: 04-09-[address] NONE LISTED REQUEST Facility: Start: 01-29-2023 End: 01-31-2023 Subsequent hospital visit by physician [facility] Additional Xray At [facility] Comment on above: Other closed fractur e of proximal end of right fibula with routine healing, subsequent encounter Start: 01-29-2023 End: 01-31-2023 Subsequent hospital visit by physician Keyon Brown MD Work Phone: [facility] Start: 01-10-2023 End: 01-10-2023 Emergency department patient visit Fei Canales MD Work Phone: [facility] Comment on above: Injury of right ankl e, initial encounter (Primary Dx) Start: 12-08-2022 End: 12-09-2022 ambulatory Keyon BROWN Facility:[facility] Start: 12-08-2022 End: 12-08-2022 Patient encounter procedure Keyon BROWN [facility] [place] Start: 12-04-2022 End: 12-04-2022 Emergency department patient visit Jason Tracy MD Work Phone: [facility] ED Comment on above: Viral illness (Prima ry Dx) Start: 09-03-2022 End: 09-03-2022 Emergency department patient visit Evan Moyer Facility:[facility] Start: 06-19-2022 End: 06-21-2022 Subsequent hospital visit by physician [facility] Additional Xray [facility] Comment on above: Left wrist pain Start: 06-01-2022 End: 06-02-2022 ambulatory ANTHONY Carl Facility:[facility] Start: 06-01-2022 End: 06-01-2022 Patient encounter procedure Meena Carl [facility] Start: 05-28-2022 ambulatory ANTHONY Carl Faci lity:[facility] Start: 09-14-2021 End: 09-14-2021 Emergency department patient visit Keyon Wilkinson MD Work Phone: [facility] ED Comment on above: Subacute bronchitis [...] 07-23-2022 Influenza vaccination Flu vaccine (# 1) [facility] Start: 06-22-2022 Influenza vaccination Flu vaccine (# 1) [facility] Start: 07-23-2021 Influenza vaccination Flu vaccine (# 1) [facility] Work Phone: Start: 08-02-2017 DTaP/Tdap/Td vaccine (2 - Td or Tdap) DTaP/Tdap/Td vaccine (2 - Td or Tdap) [facility] Start: 2015 Screening for malign ant neoplasm of cervix Pap smear [facility] Start: 2013 DTaP/Tdap/Td vaccine (1 - Tdap) DTaP/Tdap/Td vaccine (1 - Tdap) [facility] Work Phone: Start: 2012 Hepatitis C screening Hepatitis C sc reen [facility] Start: 2009 HIV screening HIV screen [facility] Start: 2006 COVID-19 Vaccine (1) COVID-19 Vaccin e (1) [facility] Work Phone: Start: 2006 Depression Screen Depression Screen [facility] Start: 2005 HPV vaccine (1 - 2-d ose series) HPV vaccine (1 - 2-dose series) [facility] Phone: Start: 1998 Varicella vaccine (2 of 2 - 2-dose childhood series) Varicella vaccine (2 of 2 - 2-dose childhood series) [facility] Start: 1995 Varicella vaccine (1 of 2 - 2-dose childhood series) Varicella vaccine (1 of 2 - 2-dose childhood series) [facility] Phone: Start: 05-30-1995 COVID-19 Vaccine (#1) COVID-19 Vacci ne (#1) [facility] Start: 1994 Hepatitis C screening Hepatitis C sc reen [facility] Phone: Immunizations Immunization Date Immunization Notes Care Provider Fa zelalem 02-16-2008 Hep A, unspecified formulation Meena Carl [facility] 08-02-2007 Hep A, unspecified formulation Meena Carl [facility] 08-02-2007 meningococcal ACWY vaccine, unspecified formulation Meena Aguilraell [facility] 08-02-2007 tetanus toxoid, reduced diphtheria toxoid, and acellular pertussis vaccine, adsorbed Meena Carl [facility] 08-19-2000 DTaP, unspecified formulation Meena Carl [facility] 08-19-2000 measles, mumps and rubella virus vaccine Meena Carl [facility] 10-10-1997 varicella virus vaccine Meena Carl [facility] 03-09-1996 DTaP, unspecified formulation Meena Carl [facility] 03-09-1996 Hib, unspecified formulation Meena Carl [facility] 03-09-1996 measles, mumps and rubella virus vaccine Meena Carl [facility] 06-11-1995 DTP-Hib Meena Carl [facility] 06-11-1995 hepatitis B vaccine, pediatric or pediatric/adolescent dosage Meena Carl [facility] 04-05-1995 DTP-Hib Meena Carl [facility] 02-01-1995 DTP-Hib Meena Carl [facility] 01-04-1995 hepatitis B vaccine, pediatric or pediatric/adolescent dosage Meena Aguilarell [facility] 1995 hepatitis B vaccine, pediatric or pediatric/adolescent dosage Meena Carl [facility] NEGATED: Highlighted row has not occurred!12-08-2022 influenza virus vaccine, unspecified formulation Keyon BROWN [facility] NEGATED: Highlighted row has not occurred!12-08-2022 SARS-CoV-2 mRNA (tocassandranameran 5y-11y) vaccine Keyon BROWN [facility] Payers Date Payer Category Payer Unknown [id number] 1995 Unknown [id number] 2.16.8 [id number] 1995 Unknown [id number] 2.16.8 [id number] 1994 Unknown [id number] 2.16.8 [id number] 1994 Unknown [id number] 2.16.8 [id number] 1994 Unknown [id number] 2.16.84 [id number] 1994 Unknown [id number] 2.16.8 40.1.911916.3.579.2.174 1994 Unknown [id number] 2.16.8 40.1.909770.3.579.2.174 1994 Unknown [id number] 2.16.8 40.1.275223.3.579.2.174 1994 Unknown [id number] 2.16.8 40.1.498943.3.579.2.174 1994 Unknown [id number] 2.16.84 0.1.458545.3.579.2.1259 1994 Unknown [id number] 2.16.84 0.1.337204.3.579.2.1259 1994 Unknown [id number] 2.16.840 .1.371242.3.579.2.1259 1994 Unknown [id number] 2.16.840 .1.642441.3.579.2.1259 1994 Unknown [id number] 2.16.840 .1.422082.3.579.2.1259 1959 Unknown [id number] 1. [id number] Social History Date Type Detail Facility Start: 05-31-2018 End: 09-14-2021 Tobacco smoking status NHIS Never smoker [employer] Phone: Start: 05-31-2018 End: 09-14-2021 Tobacco use and exposure Never used [facility] Start: 09-14-2021 End: 01-10-2023 Alcohol intake Current non-drinker of alcohol (finding) [employer] Phone: Start: 1995 Sex Assigned At Not on file [facility] [employer] Work Phone: Start: 11-24-2022 End: 01-10-2023 Exposure to SARS-CoV-2 (event) Not sure [facility] Tobacco smoking status Never [facility] Sex Assigned At Female [facility] Start: 12-04-2022 End: 01-10-2023 History SDOH Alcohol Frequency 1 [facility] [employer] Work Phone: Functional Status Date Assessment Result Facility 12-08-2022 Functional Status N/A [facility] [place] 06-01-2022 Functional Status N/A [facility] Clinical Notes 06-01-2022 [...] cannot be sent through Care Everywhere.Ankle Sprain ([place])documented in this encounter [facility] [employer] Work Phone: 12-08-2022 Hospital Discharg e instructions [...] than 2 years old. Live in a halfway. Travel on cruise ships. What are the [...] and water are not available, use hand town manager. Make sure that all people in your household wash their hands well and often. Take xhes-twa-eigotvv and prescription medicines only as told by [...] and water are not available, use hand town manager. This information is not intended to replace advice given to you by your health care provider. Make sure you discuss any questions you have with your health care provider. Document Released: 11/08/2006 Document Revised: 04/26/2020 Document Reviewed: 09/13/2019 [employer] Patient Education 2020 [employer]. Follow Up Care 12/08/2022 09:17:52 With:Keyon BROWN MD, FAM Address: When: only if needed [facility] [place] 12-04-2022 [facility] Discharg e instructions Jason Tracy MD - 12/04/2022 4:33 PM EST Increase fluids at home. Take Zofran for any nausea. Try Imodium/loperamide for diarrhea. Call primary care doctor for close follow-up. Use Tylenol or Motrin to keep fever down. The following attachments cannot be sent through Care Everywhere.Viral Infections ([place])documented in this encounter [facility] [employer] Work Phone: 06-01-2022 [facility] Discharg e instructions Patient Education 06/01/2022 [...] height. This can be done either in [place] or metric measurements. Note that charts are available to help you find your BMI quickly and easily without having to do these calculations yourself. To calculate your BMI in [place] measurements, your health care provider will: [...] medical problems. BMI can be measured using [place] measurements or metric measurements. To interpret your [...] 07/20/2005 Document Revised: 10/21/2018 Document Reviewed: 09/21/2018 [employer] Patient Education 2020 [employer] 06/01/2022 13:15:39 Carpal Tunnel Syndrome Carpal [...] Having a job, such as being a business management intern or a casino cashier, that requires you to repeatedly move [...] 3 times per day. General instructions Take zigg-nhn-quhkbjj and prescription medicines only as told by [...] 11/05/2001 Document Revised: 03/17/2019 Document Reviewed: 03/17/2019 [employer] Patient Education [employer] Follow Up Care 05/28/2022 08:22:05 With:Meena Carl CNP Address: When: only if needed [facility] Evaluation + Plan [facility] Evaluation note Diagnosis Subacute bronchitis- Primary Acute bronchitis documented in this encounter [employer] Phone: evaluation note* Diagnosis Left wrist pain Pain in joint, forearm documented in this encounter [employer] Phone: evaluation note* Diagnosis Viral illness- Primary Unspecified viral infection, in conditions classified elsewhere and of unspecified site documented in this encounter [employer] Phone: evaluation note* Diagnosis Injury of right ankle, initial encounter- Primary documented in this encounter [employer] Phone: evaluation note* Diagnosis Other closed fracture of proximal end of right fibula with routine healing, subsequent encounter documented in this encounter [employer] Phone: Hospital course Narrative No data available for this section [facility] Hospital Discharge instructions* Attachments The following attachments cannot be sent through Care Everywhere. 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 Summary Purpose Family History No Family History [...] Care Team (unrecognized sect ion and content) Matte Cutter Relationship Specialty Start Date End Date Keyon Brown MD [address] [place] [address] [place] [address] PCP - General Family Medicine 12/04/22 Matte Cutter Relationship Specialty Start Date End Date Keyon Brown MD [address] [place] [address] PCP - General Family Medicine 12/04/22 Matte Cutter Relationship Specialty Start Date End Date Keyon Brown MD [address] [place] [address] PCP - General Family Medicine 12/04/22 INFORMATION SOURCE (unrecogn ized section and content) DATE CREATED AUTHOR 02/01/2023 [facility] DATE CREATED AUTHOR AUTHOR'S ORGANIZ ATION 04/01/2023 [facility] DATE CREATED AUTHOR AUTHOR'S ORGANIZ ATION 03/05/2024 Kirsty charles DATE CREATED AUTHOR AUTHOR'S ORGANIZ ATION 03/07/2024 [facility] FOR RECORDS PERTAINING TO PATIENTS WHO [...] BE BASED ON THE PRIMARY CLINICAL RECORDS. [facility] [employer] provides no warranty or guarantee of the accuracy or completeness of information in this document.
[2024-03-27 09:33] LABS: HCG Quantitative 3 mIU/mL
== END 2024-03-27 08:09 | disposition home or self-care (01) ==
LOC: LAB 08:08
PROVIDERS: Visit Provider Obstetrics & Gynecology
DX: O03.9 Complete or unspecified spontaneous abortion without complication (principal); Z51.89 Encounter for other specified aftercare
CPT/HCPCS: 36415; 84702

== ENCOUNTER 2024-08-18 09:05 | Outpatient (OUT) | payer OTHER, SELFPAY ==
--- NOTE | 2024-08-18 09:09 | US_ITS ---
The [address] [address] Patient Name: RUEL READ MRN: [id number] date: 1995 Sex: F Assigned Patient Location: [facility] Current Patient Location: [facility] Accession/Order Number: [id number] Exam Date: 08/18/2024 09:09 Report Date: 08/18/2024 15:27 At the request of: YULIA ESTES Procedure: US OB transvaginal EXAMINATION: US OB transvaginal HISTORY: MISSED MENSES COMPARISON: No relevant comparison available. FINDINGS: GESTATIONAL SAC: Present and normal appearing. YOLK SAC: Present and normal appearing. POLE: Present and normal appearing. CARDIAC: Present. UTERUS: Normal size and appearance. OVARIES: Right: Normal. Left: Not seen. CERVIX: 4.0 cm in length and closed. CUL-DE-SAC: Normal. OTHER: None. AGE BY LMP: 8 weeks 0 days SHADY BY LMP: 03/30/2025 AGE BY US CRL: 6 weeks 5 days SHADY BY US CRL: 04/08/2025 US/US OB transvaginal IMPRESSION: 1. Single live intrauterine . Electronically authenticated by: ALIS ECKERT Date: 08/18/2024 15:27
--- OUTSIDE RECORDS SUMMARY | 2024-08-18 09:09 | XMS_ITS | CCD ---
Author Organization [facility] Care Team Providers Care Lap Maker Name Role Phone Unavailable Primary Care Provider UnavailCharli Browne Primary Care Physician Keyon Brown MD Primary Care Provider ANTHNOY Carl Attending UnavailKeyon Lockett Attending Unavailable Evan Moyer Attending Unavailable LISHA, DR DRUMMOND LISTED Consulting Unavaila ble [facility], DR NICOLE Primary Care Unavailable MEERA ., DR BENDER Attending Unavailable MEERA ., DR BENDER Admitting Unavailable YULIA ROBISON Attending Unavailable MEERAYULIA Santos Attending Unavailable MEERAYULIA Attending Unavailable MEERAYULIA Attending Unavailable YULIA ROBISON Attending Unavailable Clingman DNP, Óscar A Primary Care Provider ClingmaÓscar yeh DNP A Primary Care Provider JOHN PARTIDA Referring Unavailable CLINGMAN, ÓSCAR A Primary Care Unavailable JOHN PARTIDA Attending Unavailable CLINREED, ÓSCAR A Primary Care Unavailable JOHN PARTIDA Referring Unavailable JOHN PARTIDA Attending Unavailable CLINJEFFN, ÓSCAR A Primary Care Unavailable YULIA ROBISON Referring Unavailable CLINGMAN, ÓSCAR A Primary Care Unavailable YULIA ROBISON Referring Unavailable YULIA ROBISON Referring Unavailable KEYON BROWN Primary Care Unavailable JOHN PARTIDA Referring Unavailable CLINGMAN, ÓSCAR A Primary Care Unavailable CLINGMAN, ÓSCAR A Primary Care Unavailable YULIA ROBISON Referring Unavailable CLINGMAN, ÓSCAR A Primary Care Unavailable JOHN PARTIDA Referring Unavailable JOHN PARTIDA Attending Unavailable CLINGMAN, ÓSCAR A Primary Care Unavailable JOHN PARTIDA J Referring Unavailable CLINGMAN, ÓSCAR A Primary Care Unavailable YULIA ROBISON Referring Unavailable OLEJOHN CAIN Attending Unavailable OLEJOHN CAIN J Referring Unavailable CLINGMAN, ÓSCAR A Primary Care Unavailable OLEJOHN CAIN Attending Unavailable OLEJHON CAIN J Referring Unavailable CLINGMAN, ÓSCAR A Primary Care Unavailable OLEJOHN CAIN Referring Unavailable OLEWIJOHN GOODMAN Attending Unavailable CLINGMAN, ÓSCAR A Primary Care Unavailable CLINGMAN, ÓSCAR A Primary Care Unavailable OLEWILERJOHN Referring Unavailable OLEWILERJOHN Attending Unavailable CLINGMAN, ÓSCAR A Primary Care Unavailable OLEANT, JOHN J Referring Unavailable OLEWIMAXINE, JOHN Dockery Attending Unavailable YULIA ROBISON Referring Unavailable CLINGMAN, ÓSCAR A Primary Care Unavailable OLEWIJOHN GOODMAN J Referring Unavailable CLINGMAN, ÓSCAR A Primary Care Unavailable JOHN PARTIDA Attending Unavailable JOHN PARTIAD Attending Unavailable CLINGMAN, ÓSCAR A Primary Care Unavailable OLEWIJOHN GOODMAN J Referring Unavailable CLINGMAN, ÓSCAR A Primary Care Unavailable YULIA ROBISON Referring Unavailable CLINGMAN, ÓSCAR A Primary Care Unavailable OLEWIMAXINE, JOHN J Referring Unavailable OLEWILER, JOHN Dockery Attending Unavailable OLEWILER, JOHN Dockery Attending Unavailable CLINGMAN, ÓSCAR A Primary Care Unavailable OLEJOHN CAIN J Referring Unavailable KEYON BROWN Primary Care Unavailable JOHN PARTIDA Referring Unavailable CLINGMAN, ÓSCAR A Primary Care Unavailable OLEJOHN CAIN Attending Unavailable OLELUCRECIALER, JOHN J Referring Unavailable CLINGMAN, ÓSCAR A Primary Care Unavailable JOHN PARTIDA Attending Unavailable Allergies Allergy Classification Reported Allergen(s) Allergy Type Date of Onset Reaction(s) Facility (13 sources) Acetaminophen / HYDROcodone Drug Allergy 7 Rash [facility] (13 sources) Acetaminophen / oxyCODONE Drug Allergy 6 [facility] (16 sources) Codeine; Translations: [codeine] Drug Allergy 7 Rash, Cutaneous eruption (morphologic abnormality) [facility] (3 sources) Acetaminophen / HYDROcodone; Translations: [acetaminophen-hy drocodone] Drug Allergy Hives [facility] (3 sources) Acetaminophen / oxyCODONE; Translations: [acetaminophen-ox ycodone] Drug Allergy Cutaneous eruption (morphologic abnormality) [facility] (1 source) Acetaminophen / HYDROcodone Drug Allergy [facility] (1 source) Acetaminophen / oxyCODONE Drug Allergy [facility] (1 source) Codeine Drug Allergy [facility] Medications Current Medications Medication Drug [...] extended release oral tablet (6 sources) Uncompetitive S-pvcuto-S-aspartate Receptor Antagonist, Sigma-1 Agonist Start: 09-14-2021 take 1 tablet by mouth every twelve hours as needed for cough Dextromethorphan- guaiFENesin 60-1200 MG TB12 Take 1 tablet by mouth every 12 hours as needed (COUGH CONGESTION) 28 tablet 0 09/14/2021 Active dextromethorphan hydrobromide 3 mg/ml / promethazine hydrochloride 1.25 mg/ml oral solution (6 sources) Phenothiazine, Uncompetitive V-hjydav-E-aspartate Receptor Antagonist, Sigma-1 Agonist Start: 05-31-2018 promethazine-dext [...] day(s), # 30 tab(s), Refills(s) 1, Pharmacy: [facility], 170, cm, 06/01/22 12:55:00 EDT, Height/Length [...] or Vomiting 12 tablet 0 12/04/2022 Active predniSONE 20 mg oral tablet (1 source) Start: 05-22-2024 End: 05-27-2024 take 2 tablets by mouth once daily predniSONE (DELTASONE) 20 MG tablet Indications: Right buttock pain , Sacral pain Take 2 tablets by mouth daily for 5 days 10 tablet 0 05/22/2024 05/27/2024 Active Multivitamins with Vitamin B Complex, Vitamin C, Minerals and L-Methylfolate oral capsule (2 sources) Start: 01-19-2017 Multivitamins with Vitamin B Complex, Vitamin C, Minerals and L-Methylfolate oral capsule 1 cap(s), Oral, Daily, 30 cap(s), Refill(s) 0 Start Date: 01/19/17 Status: Ordered MV-Min-Fe Fum-FA-DHA ( 1 PO) (7 sources) MV-Min-Fe Fum-FA-DHA ( 1 PO) Take by mouth Active MV-Min- Fe Fum-FA-DHA ( 1 PO) Take by mouth 0 Active Zofran ODT 4 mg Tab-Dis (1 source) Start: 09-03-2022 take 1 tablet by mouth three times daily Zofran ODT 4 mg Tab-Dis 4 mg = 1 tab(s), Oral, TID, # 15 tab(s), Refills(s) 0, Pharmacy: [facility], 170, cm, 09/03/22 14:31:00 EDT, Height/Length Dosing, 92, kg, 09/03/22 14:31:00 EDT, Weight Dosing Start Date: 09/03/22 Status: Ordered Problems Active Problems Problem Classification Problem Date Documented Date Episodic/Chronic Acute bronchitis (1 source) Subacute bronchitis; Translations: [Acute bronchitis, unspecified] Episodic Esophageal disorders (2 sources) Acid reflux 08-22-2016 Chronic Fracture of lower limb (1 source) Closed fracture of upper end of fibula; Translations: [Other fracture of upper and lower end of right fibula, subsequent encounter for closed fracture with routine healing] Episodic Intestinal infection (2 sources) Intestinal infectious disease; Translations: [Other specified intestinal infections] Onset: 12-08-2022 Episodic Menstrual disorders (2 sources) Irregular menstruation, unspecified; Translations: [Irregular menstruation, unspecified] Onset: 07-27-2024 Chronic Other connective tissue disease (3 sources) Myalgia, other site; Translations: [Myalgia, other site] Onset: 05-22-2024 Episodic Other injuries and conditions due to [...] [Other specified health status] Onset: 06-01-2022 Episodic Spondylosis; intervertebral disc disorders; other back problems (3 sources) Sacrococcygeal disorders, not elsewhere classified; Translations: [Sacrococcygeal disorders, not elsewhere classified] Onset: 05-22-2024 Episodic Unclassified (2 sources) Non-smoker 06-01-2022 Viral infection (1 source) Viral disease; Translations: [Viral infection, unspecified] Episodic Past or Other Problems Problem Classification Problem Date Documented Da te Episodic/Chronic Unclassified (4 sources) Onset: 10-21-2012 Resolved: 11-22-2017 12-03-2017 Results Test Name Value Interpretation Reference Range Facility HCG, [place] 08-07-2024 HCG, Quant 50394.0 mIU/mL High <5 [facility] Comment on above: Result Comment: Non-preg premeno <=5 Postmeno <=8 Male <=3 If HCG results do not concur with clinical observations, additional testing to confirm results is recommended. Performed By: #### B HCG #### [facility] [address] [place] [address] Regional Marketing Manager: Armen Madrigal MD HCG, Quantitative, on 08-07-2024 [place] [address].0 m[IU]/mL High [facility] Comment on above: Non-preg premeno <=5 Postmeno <=8 Male <=3 If HCG results do not concur with clinical observations, additional testing to confirm results is recommended. Interpretation and review of laboratory results Abnormal [facility] HCG, [place] 08-02-2024 HCG, Quant 1366.0 mIU/mL High <5 [facility] Comment on above: Result Comment: Non-preg premeno <=5 Postmeno <=8 Male <=3 If HCG results do not concur with clinical observations, additional testing to confirm results is recommended. Performed By: #### B HCG #### [facility] [address] [place] [address] Regional Marketing Manager: Armen Madrigal MD HCG, [place] 07-31-2024 HCG, Quant 506.3 mIU/mL High <5 [facility] Comment on above: Result Comment: Non-preg premeno <=5 Postmeno <=8 Male <=3 If HCG results do not concur with clinical observations, additional testing to confirm results is recommended. Performed By: #### B HCG #### [facility] [address] [place] [address] Regional Marketing Manager: Armen Madrigal MD HCG, Quantitative, on 07-31-2024 HCG.beta subunit Qn 506.3 m[IU]/mL High [facility] Comment on above: Non-preg premeno <=5 Postmeno <=8 Male <=3 If HCG results do not concur with clinical observations, additional testing to confirm results is recommended. Interpretation and review of laboratory results Abnormal [facility] HCG, [place] 07-29-2024 HCG, Quant 200.3 mIU/mL High <5 [facility] Comment on above: Result Comment: Non-preg premeno <=5 Postmeno <=8 Male <=3 If HCG results do not concur with clinical observations, additional testing to confirm results is recommended. Performed By: #### B HCG #### [facility] [address] [place] [address] Regional Marketing Manager: Armen Madrigal MD HCG Screen, Bloodon 07-27-20 24 HCG Screen, Blood Positive Abnormal NEG [facility] Comment on above: Result Comment: If HCG results do not concur with clinical observations, additional testing to confirm result is recommended. This test is not labeled for use as a tumor marker. [facility] has confirmed the use of plasma for this test. This has not been cleared or approved by the U.S. Food and Drug Administration. The FDA has determined that such clearance is not necessary. Performed By: #### H CG #### [facility] [address] [place] [address] Regional Marketing Manager: Armen Madrigal MD HCG, [place] 07-27-2024 HCG, Quant 73.4 mIU/mL High <5 [facility] Comment on above: Result Comment: Non-preg premeno <=5 Postmeno <=8 Male <=3 If HCG results do not concur with clinical observations, additional testing to confirm results is recommended. Performed By: #### B HCG #### [facility] [address] [place] [address] Regional Marketing Manager: Armen Madrigal MD HCG, [place] 06-08-2024 HCG, Quant <1.0 Normal <[address] [place] [address] Comment on above: Result Comment: Non-preg premeno <=5 Postmeno <=8 Male <=3 If HCG results do not concur with clinical observations, additional testing to confirm results is recommended. Performed By: #### B HCG #### [facility] [address] [place] [address] Regional Marketing Manager: Armen Madrigal MD XR SACRUM COCCYX (MIN 2 VIEW S)on 05-24-2024 XR SACRUM COCCYX (MIN 2 VIEWS) HISTORY: Sacral pain. TECHNIQUE: 3 views sacrum and coccyx. COMPARISON: None. FINDINGS: Sacroiliac joints are normal. No fracture or acute osseous abnormality is identified. IMPRESSION: No acute process. Interpreted by: Parker Coleman MD Signed by: Parker Coleman MD 05/24/24 Final result Normal [facility] HCG, [place] 03-04-2024 HCG, Quant 3680.0 mIU/mL High <5 [facility] Comment on above: Result Comment: Non-preg premeno <=5 Postmeno <=8 Male <=3 If HCG results do not concur with clinical observations, additional testing to confirm results is recommended. Performed By: #### B HCG #### [facility] [address] [place] [address] Regional Marketing Manager: Armen Madrigal MD [facility] [id number] #1.00CD:127 Normal [facility] XR ANKLE RIGHT (MIN 3 VIEWS) on 01-29-2023 FINDINGS/IMPRESSION: 1. Compression fracture tip of the fibula no longer separately seen. 2. Anatomic alignment throughout. 3. Soft tissue swelling has resolved. [facility] EXAM: XR ANKLE RIGHT (MIN 3 VIEWS). HISTORY: Other closed fracture of proximal end of right fibula with routine healing, subsequent encounter. COMPARISON: 01/10/2023. [facility] Mauro Anton Jr., MD - 01/29/2023 EXAM: XR ANKLE RIGHT (MIN 3 VIEWS). HISTORY: Other closed fracture of proximal end of right fibula with routine healing, subsequent encounter. COMPARISON: 01/10/2023. IMPRESSION: FINDINGS/IMPRESSION: 1. Compression fracture tip of the fibula no longer separately seen. 2. Anatomic alignment throughout. 3. Soft tissue swelling has resolved. [employer] Phone: Radiology Study observation (narrative) [employer] Phone: XR ANKLE RIGHT (MIN 3 VIEWS) Ordered By: Mauro Anton on 01-29-2023 [employer] Phone: RAD - MISCon 01-11-2023 RAD - MIS [id number] #1.00CD:127 Normal [facility] XR ANKLE RIGHT (MIN 3 VIEWS) on 01-10-2023 FINDINGS/IMPRESSION: 1. Very small nondisplaced incomplete fracture is questioned in the distal tip of the right fibula, with mild surrounding soft tissue swelling. 2. No other fracture, malalignment, significant arthritis or acute bony abnormality is seen. [facility] CLINICAL HISTORY: Right ankle pain and swelling since an injury yesterday. RIGHT ANKLE 3 VIEWS: [facility] João Amezquita MD - 01/10/2023 CLINICAL HISTORY: Right ankle pain and swelling since an injury yesterday. RIGHT ANKLE 3 VIEWS: IMPRESSION: FINDINGS/IMPRESSION: 1. Very small nondisplaced incomplete fracture is questioned in the distal tip of the right fibula, with mild surrounding soft tissue swelling. 2. No other fracture, malalignment, significant arthritis or acute bony abnormality is seen. [employer] Phone: Radiology Study observation (narrative) [employer] Phone: XR ANKLE RIGHT (MIN 3 VIEWS) Ordered By: João Amezquita on 01-10-2023 [employer] Phone: Ambulatory Visit Summaryon 0 12-08-2022 Ambulatory Visit Summary MEENA LUCERO :1995 Visit Date:12/08/2022 Ambulatory Visit Instructions Your Diagnosis Gastroenteritis due to [place]-like virus Obesity due to excess calories BMI [...] to 60 minutes before meals Pickup at [facility] Unchanged multivitamin, ( Multivitamins with Vitamin B Complex, Vitamin C, Minerals and L-Methylfolate oral capsule) 1 Capsules By Mouth Every day Contact prescribing physician if questions or concerns Unchanged ondansetron (Zofran ODT 4 mg Tab-Dis) 1 Tablets By Mouth 3 times a day Contact prescribing physician if questions or concerns Pharmacy Information [facility]: [address], [place] [phone] Medications and Immunizations Administered Not Given influenza virus vaccine, inactivated, Postpone due to refusal SARS-CoV-2 mRNA (tozinameran 5y-11y) vac, Postpone due to refusal Allergies Percocet 5/325 (Hives, Rash) Vicodin (Hives) codeine (Hives, Rash) Problems Ongoing - Any problem that you are currently receiving treatment for. BMI 31.0-31.9,adult Gastroenteritis due to [place]-like virus Non-smoker Obesity due to excess calories [...] 1 years old. ? Live in a senior living. ? Travel on cruise ships. What are [...] immune system (more content not included)... Normal [facility] ED Note-Physicianon 12-08-19 ED Note-Physician [id number] #1.00CD:127 Normal [facility] Family Medicine Office/Clini c Noteon 12-08-2022 [...] for influenza and COVID. She works in hand [employer] but absolutely no exposure to spoiled food [...] Cooperative insightful Assessment/Plan 1. Gastroenteritis due to [place]-like virus (A08.8: Other specified intestinal infections) Viral [...] day(s), # 30 tab(s), Refills(s) 0, Pharmacy: [facility], 170, cm, 12/08/22 12:00:00 EST, Height/Length Dosing, 90.5, kg, 12/08/22 12:00:00 EST, Weight Dosing Follow-up With When Contact Information Keyon BROWN MD [facility] Only if needed Additional Instructions: Patient Education Viral Gastroenteritis, Adult Problem List/Past Medical History Ongoing BMI 31.0-31.9,adult Gastroenteritis due to [place]-like virus Non-smoker Obesity due to excess calories [...] Use, 05/26/2017 Employment/School 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 Normal [facility] Comment on above: Result Comment: Elec [...] 1 years old. ? Live in a senior living. ? Travel on cruise ships. What are [...] and water are not available, use hand paste mixer. ? Make sure that all people in your household wash their hands well and often. ? Take slse-fqy-vnebujv and prescription medicines only as told by [...] to person (more content not included)... Normal [facility] COVID-19, Rapidon 12-04-2022 SARS-CoV-2 (COVID-19) RNA [...] management decisions. Fact sheet for Healthcare Providers: https://www.fda.gov/media/158813/download Fact sheet for Patients: https://www.fda.gov/media/202527/download Methodology: Isothermal Nucleic Acid Amplification Specimen Description .NASOPHARYNGEAL SWAB [facility] Rapid influenza A/B antigens on 12-04-2022 Flu [...] Locations R1: This test was performed at: [facility], [address] [place] [address], [facility] , , [facility] Comment on above: Performed By: #### 2 [id number] ####[facility] [address] [place] [address] Coding Summary.on 09-04-2022 Coding Summary. [id number] Gh0bWw+PGhlYWQ+PE1FV HJkG47giTTbkL9HH0aBF P6SPNAXUTUSZK5TTI3rx WJ7LSclZ0RhckEa TeeplMFgSH42CZd7DJH0 cCilDKpqyB6hqJFsV8k5 VkKdBF98uA04GWlaBIFm VsY0KlZagqbswGVm S5rmAcAcvJJzWcb+PHRh YmxlIHdpZHRoPScxMDAl WhTllDztPP0oQe1iPQVy LWNvbGxhcHNlOiBj y9nlHDZuAAksFR3aiIpp W6XzwJG9TGUxp6k6Ba35 dHI+CJDxHMO1mQdqLJcu h131YwBcl9tiFDX1 lYMxDWwuZKY2F51iz7Z9 WBWoJFVrTDU0cDM6pM7h yLusydgdZ9AryFXeKpE2 QYI6mKCgfU0wbRbi eutdjD5rOsm+D46HQP7L MYQMNZ3CEtr7K9IjFifa dHI+NH88GIGuZY62bNQg wDVdu1dhvHv6XbGw UJFwFQJ6iLpcXEssh2Ze HENvJ35gpZSgw4W6PSEr aOagbZDgDlLteVU0nW4y TYtclddtj5xbnlru Edbgm6pbak29dD17S67h TNlfUOTsAIQ1BXMmVSSc hQnsow3jqA8mGb1+IDxj b3wcz8ksjQr7JbXq QMEiybZzcCitBKW2l3Oy Ou01T0DkdYwob0DeSbj2 af96lFYsr4S1rJP1TOuv KGPbfQ2nPRtmJfS1 HGVvPkNswL49rNIhVGxq Ys7lcMiydKabON1yYHIl wjywQKLyxN7zKUIinTTj wDhwKU6vRGJcpdoi z449NkRoCEL3PFBdqIOz T8FbcM8xJuDeWXHtSPKs M0IswQQjXTjkP757KAko RgV8YRDuyyHqQ2Cp YXUhsAjtPsK2i5B0Jb4W o3FbqwbuVND8PZinUWHz MkE2CxVtMoE8I5GeDgo5 TIGujUiaBN0oS9Kt ATQprosbdhuzsTL9AXEs VXHpjS49tQDiRVymRc9e b1L1b360IRNhGXYdkA76 Vm7jrUhqWESwgUYF hC2essufu5mszaleQtSf QAXfSLy0ZPg5SDFhhEps EiWcWPI2IkT0BMR1pVUt wY0hrPkeckcfwH8x Oyc+T83voG7yXFX3YTL8 fjtrACIthcFgMP43ZS69 D0TfOfymiGXjoBU+PGRp ioOavQvgYS6ePsPg u9fhc4MqVMsuN4MuBDHx YSwpDxg4HUWtLZH3nZT9 rD9jJKAyCPzlt8N0tLL6 G3AlnlIvhc1gk7gb GPEgAQjvW18pfASrk5S0 ZANmzZL2JYCebHriQjXl kZ74Wiu+GAJeoYoih3Ec Gsxoq4omf7idbPn2 IjMwJSIgdmFsaWduPSJ0 y1WrGh42A05dLWfvYSRq AOWkCWItDJAtyDcijk6g pO5vIa3+PGNvbCB3 bAP3rF4tMRRzUwO9WSkz S646YhDnpGLuPxsky0tz k2yftQf8MoHeFMNpfdEj nSdaDJN0n4HfOm23 R35qPRkvCNUpSZYkJNCb TZFcySrivh9kyM0mIh0+ XK3or1zryo90jD37nZC+ DXKuZEC0nWqyCGeq LLRcbB4cEWzbDcZ0BBQv GnPwjC05nHHgUPrmXr9f tKoaxFifIF3lVZGvumnr i563UoBys2oeYCBi yOQnPNwaEQY3Q26ti6V2 SCDlVSThDVV1hDI1fO1r bGlnbjogbGVmdDsgdmVy dYkrLVnoSZnaH661 IHRvcDsnPlBhdGllbnQg OrAuDYa5D5YvRfw8TERh lEohQG7avYYfVMymEo8e dMxxgJraAZ4lTILz soddc049PvNht1cfLOGt nBGuHFqhGFH4W80ti2V0 FTBvAPKgRAD5wJV0kJ3p bGlnbjogbGVmdDsg sfEuuRafWKoeXDybL275 IHRvcDsnPkJpcnRoIERh cRO6GU29YK73fPOvt9T2 tAR6W3YpPRTskiyp hnjjiZT5AGXiLZZzyQ19 Ur0moZmgBz4dTTYlBHK3 GPDafKZjT3UyeW2tErEd OOLnSSTgK1LanWPe HDugI116ZRqxFzE7NRUt rfXyS6OiCHFgoWpkKpK5 n4X2Ne7EK1V0OL49YL81 gYNfx8P2gTH4C2My QXQqjhkyzuqrsEG8QASl SQFttW99Pq5esRtbBr8k YQVbPVN8NQLqbNPeO6Xs xX8eYnRgZRMqYINj D0LrzAZpNNxaA237LYre QsR2XHArmuGeO0IrUFVi jHhdGuP6f4X6Ua0JGXz6 CX47BA76uYKtn0Z6 uUC6R8UqGINwijsvltzn rDI2EWHaMDQgzY06Lj9e rXusJc1gDEQxQAQ0VROg wSZrH4IwwN9xVvEp JLUoHOBxL9LuoTYiXWpw Z278KEpwUhO7GWFfarVd C7JtBMHswNaoArN2f7Z6 Uh3QBREjRL06IVC3 sMT8VM70QN17L6VaHwbd dGFibGU+PHRhYmxlIHdp ZHRoPScxMDAlJyBzdHls YZ6zKo0uNSLhIFQh vDvpdAXlLeNnl9thJVZl VQjeDN4fhPneT3YxrMV1 IEEej0m9Xb61V30mU5Yr dXA+MGBwdAX1lGL1 bU5zEvMwEzM8PBgdR121 LaQzxQNcVkrdp3mip3wv uVl8JsC8HFNqeuCmhRus NLA1v0HxIb67A19u IHdpZHRoPSIxNSUiIHZh gBxnbd4deR7sGv7+PGNv eFB0nTW7sE4nHrTsQmM0 VAqoG545XbNamGFm Zprba5vqz2oebWy2JmTh OJGgxgGgfFkkFIE6o4Ur Id26J3BffFkfc7LhHcn9 ea73tYOtb9X5hWP7 J7ClPCAywviydZRlzEca TS9mHADesjrbNQUiuT4d HBMwV3j2IaVpKlP0FCjb V8PqvmU7FLJnhMNu ATclPWI3E40wi2O3DZRu MTMrVME7fXS3cW6cbUxw bjogbGVmdDsgdmVydGlj BBwpVBgeB311FCOz vQdfKGHblJ9hKNIvkMFg wNliOQ6tYRWnvktnTlER Yo9SUTEjJTpUWFoESV1u RTwvdGQ+PHRkIHN0 rEfwXLzpUBFjgE9fWLLx I1t5SoRoRdE5VQkiY7Sm LTSgefabQt96sN7kMuBb ZaH4SFkgC1UemeQ4 ZAEblCVqOOfsDXY0C43k u5U2JVJrSIJcUTM8kPZ4 yP7mxWhoesfwbFDevYoo dmVydGljYWwtYWxp T323KEJvwQorNqJfZsS4 SsV2JKX3O7WaMxm4ENJk jJlmSE1xsFCcAXeaWb1f aMjhjWldQB4rYOPv pethEOKudH6kDHTsoATt iDfcKV0hHSDfutqxf764 ClXfFNC8KXNggGQlP9De uS9dEnUfTNPxYAZb Y1EtzJLmRBgeZ177GEnu BgY7CCTaipFgW6EfSDZh fEqtPuO6u6X8Sm6lRuEF ZWFyczwvdGQ+PHRk JIU2zQvqJIvzAUFcjL1k QIUhD8b4DsScIbY0JIzp I2CkYAFbsgebOr98dD7j EpOzGbN8MYzkR7Id vcZ3GPHmwHFwURryWGO9 G01do7N8TRKpPFSjYTE0 mDB2pK1mcVnstgvknHLl dDsgdmVydGljYWwt PQjaU556CVZneJwsZbLl bWFsZTwvdGQ+PHRkIHN0 jFzfLYhoUVVnrG0eDAVh O9r9FpWvCoF4EZyl J2MlCOBwnxwuLs50aZ4a IoFzMvW1PYeyI4PujgN4 KFOepWOpEZcpRWJ3Z50z c6K2GHZeEAZiPJN4 vDE2hW9yuImboqhbzUDu dDsgdmVydGljYWwtYWxp L088RKMlrUdpScIePZQe LU8xvBabkGX+PC90 jh96N4TwZxumIhb2NTZv ZXB7kDS6oO5kBOFuBQnq y5M6lBY0C0UoleObvl6g e1xsSTLhTKloG15m xVUqp2F0WDWrtEG8KEVq yUbpDqErlX16Iwu+PGNv qTqxg5TpPgfgd0hen8yi hJv0GfFnMGKuwkGj wHdtMVR2u7HwMh33W43l IHdpZHRoPSIzMCUiIHZh mYkrxy4ymZ3bIz4+PGNv dUT5eLD9aN6sBqXg EvF5XRgcP468EjSckBZz Yodkp1alz4ckeUs1YhKz CHChbeZkgAkcLRZ2x8Wu As31R1XdtNtyy6Mj Ads4kj69lJWhy3I9lDQ6 E8ZqKPVbyjfxmLIexNex XB7uYJArkoukQTGrbI1c NSQfV1y4XnSxXmD7 NCvlD7VvwmQ1NGLbbPOf NABbaFMLoY8ksencz4tm jldaWuGeFWBlDJb3MBs4 LWFsaWduOiBsZWZ0 XkX9SZZ2nSUmpU8utIvn lumubZ6cVfd+FPy3t5hh cTXhSE9uyOT5DJ29SJ46 xLTdx2E8yBL8C8Kl ANKdjehpawglcSZ1NIIu TBZfuX97Hv9dkVqkNu3x DVFqSIT2RHJbaJTtK2Ls oZ7yZyHdWMUyMCSf Z6OxcHBhEWyuA832KJux IgW7MNDwveUeH0MjERPx sEtmCmB7c1W9By7KRL26 SQ57DC73sUEbd7V3 qVX1A7RuYPLjfxllorjd fIX4VSEgUQPhjO09Tn0q oKnqDp4jXABeOXX7UVDr rLUrA9MciR6rQkVu DXIxCJBpU2IcoUAnZPsc E825KOuxHtS5AGWdlrBb R9JvNLFnjFgyJeW2w6J4 Zr4OLt87QH05DA19 tCHpt3W7nAZ5S4PfOUOw jbsixhjvoTI5NNRmDVZy aN05Yg0bvDetSu7fBSDf FXG2KIFhaIZhW7Du dY4fPnUmICXtDCDvA8Gf cKNqRTgiJ870WLhvXeK6 TLEctoEkL8OcQERgtHcu NiF7z2K9Hp9CRDyb yrg4M4DlDxcwnVV+PC90 DCEsDA33iRZnwHVrn5ts cIa7LcCmAVLeZKB7pXje HYajl8TcLVZxH01u bGFw (more content not included)... Normal [facility] Consent for Treatmenton 10 Consent for Treatment [id number] #1.00CD:127 Normal [facility] Discharge Instructionson Discharge Instructions [id number] #1.00CD:127 Normal [facility] ED Clinical Summaryon 2021 ED Clinical Summary [place] [id number] ED Clinical Summary Person Information Name: MEENA LUCERO [facility] Age: 26 Years : 1995 Sex: Female Language: Bulgarian PCP: Charli LOPEZ Marital Status: Single Visit [...] 09/03/2022 15:51:51 09/03/2022 15:51:51 09/03/2022 15:51:51 ADDRESS: [address] [place] [id number] PHYS DOC NOTES: MEDICAL INFORMATION: Prescriptions Given: New Medications [facility], [address], [place] [id number], [phone] ondansetron (Zofran ODT 4 mg Tab-Dis) 1 Tablets By Mouth 3 times a day. Refills: 0. Medications to Continue with No Changes Other Medications multivitamin, ( Multivitamins with Vitamin B Complex, Vitamin C, Minerals and L-Methylfolate oral capsule) 1 Capsules By Mouth every day. Refills: 0. PATIENT EDUCATION INFORMATION: Instructions: Nausea and Vomiting, Adult Follow up: With: Address: When: Charli CARLSON [address] [place] [id number] Business (1) In 3 days 09/06/2022 DIAGNOSIS: Nausea & vomiting Normal [facility] ED Note-Physicianon 09-03-20 ED Note-Physician [...] TID, # 15 tab(s), Refills(s) 0, Pharmacy: [facility] #[facility], 170, cm, 09/03/22 14:31:00 EDT, Height/Length [...] CARLSON In 3 days 09/06/2022 EDT [address] [place] [address]- Business (1) Additional Instructions: Patient Education Nausea and Vomiting, Adult Attestation Patient seen and evaluated by the physician podiatrist assistant. Attending physician was present in the emergency department and supervised care. This visit was performed by both the physician and an APC. I performed all aspects of the MDM as documented. This report was transcribed using voice recognition software. Every effort was made to ensure accuracy, however, inadvertently computerized mint machine operator mistakes may be present. Appropriate healthcare PPE [...] (09/03/22 14:49:0 (more content not included)... Normal [facility] Comment on above: Result Comment: Elec [...] added (diluted fruit juice). ? Eat bland, rxnf-ds-qguqcv foods in small amounts as you are able. These foods include bananas, applesauce, rice, lean meats, toast, and crackers. ? Avoid fluids that contain a lot of sugar or caffeine, such as energy drinks, sports drinks, and soda. ? Avoid alcohol. ? Avoid spicy or fatty foods. General instructions ? Take zckl-idz-vvbgqqf and prescription medicines only as told by your health care provider. ? Drink enough fluid to keep your urine pale yellow. ? Wash your hands often using soap and water. If soap and water are not available, use hand paste mixer. ? Make sure that all people in [...] and drinking to prevent dehydration. ? Take oune-sjs-nqjbmam and prescription medicines only as told by [...] 11/08/2006 Document Revised: 03/01/2020 Document Reviewed: 04/18/2019 [employer] Patient Education ? 2019 [employer] Inc[employer] Normal [facility] ED Patient Summaryon 022 ED Patient Summary [place] [id number] Patient Discharge Instructions Person Information Name: MEENA LUCERO Age: 26 Years Arrival Date: 09/03/2022 14:27:10 Discharge Diagnosis: Nausea & vomiting Primary Care Physician: Charli LOPEZ Provider Information Primary Provider: Evan Moyer DO Advanced Clinical Haematologist:Neil Meza PA-C The exam and treatment you received in the Emergency Department were for an urgent problem and are not intended as complete care. It is important that you follow up with a doctor, nurse practitioner, or physician?s podiatrist assistant for ongoing care. If your symptoms become worse or you do not improve as expected and you are unable to reach your usual health care provider, you should return to the Emergency Department. We are available 24 hours a day. MEENA LUCERO has been given the following list of patient education materials, prescriptions and follow-up instructions: Follow-up Instructions: With: Address: When: [facility] [place] [address] Business (1) In 3 days 09/06/2022 In the event that this physician does not participate in your insurance network, please consult with your insurance company to find a nearby participating provider. Patient Education Materials: Nausea and Vomiting, Adult A MESSAGE TO ALL PATIENTS REGARDING OPIOIDS PRESCRIPTION OPIOIDS: WHAT YOU NEED TO KNOW Prescription opioids can be used to help relieve dtdkeyhj-zs-xuaicx pain and are often prescribed following a [...] be struggling with addiction, tell your health healthcare market consultant and ask for guidance or call [facility] National Helpline at 8-819-659-WHMJ. v Source: Dep (more content not included)... Normal [facility] U BetaHcg Qualon 09-03-2022 HCG.beta subunit (U) [Moles/Vol] Negative Normal [facility] Comment on above: Performed By: #### 2 [id number], [id number], [id number] ####[facility] [address] [place] [address] UA With Cult Reflexon 2021 Bacteria LM Ql (Urine sed) 2+ /HPF Abnormal Trace [facility] Comment on above: Performed By: #### 2 [id number], [id number], [id number] ####[facility] [address] [place] [address] Bilirubin Ql (U) Negative Normal Negative [facility] Comment on above: Performed By: #### 2 [id number], [id number], [id number] ####[address] [address] Clarity (U) CLEAR Normal Clear [facility] Comment on above: Performed By: #### 2 [id number], [id number], [id number] ####[address] [address] Color (U) YELLOW Normal Yellow [facility] Comment on above: Performed By: #### 2 [id number], [id number], [id number] ####[place] [id number] Epithelial cells.squamous LM.HPF (Urine sed) [#/Area] 5-8 Normal 0-2 [facility] Comment on above: Performed By: #### 2 [id number], [id number], [id number] ####[place] [address]04157 Glucose Test strip (U) [Mass/Vol] Negative Normal Negative [facility] Comment on above: Performed By: #### 2 [id number], [id number], [id number] ####[place] [address]157 Hemoglobin Ql (U) Negative Normal Negative [facility] Comment on above: Performed By: #### 2 [id number], [id number], [id number] ####[place] [address]04157 Ketones (U) [Mass/Vol] Negative Normal Negative [facility] Comment on above: Performed By: #### 2 4297085, 98504158, 0296963 ####[address] [address] Citrus.plasma/Lit hium.RBC (Bld) [Mass ratio] 0-3 Normal 0-3 [facility] Comment on above: Performed By: #### 2 8483705, [id number], [id number] ####[address] [address] Mucus Ql (Urine sed) 1+ Normal [facility] Comment on above: Performed By: #### 2 9232167, 15740907, 3724035 ####[address] [address] Nitrite Ql (U) Negative Normal Negative [facility] Comment on above: Performed By: #### 2 6906190, 48284133, 4162913 ####[address] [address] pH (U) 5.5 [pH] Invalid Interpretation Code 5.0-9.0 [facility] Comment on above: Performed By: #### 2 4097953, 97126001, 5112952 ####[address] [address] Protein (U) [Mass/Vol] Negative Normal Negative [facility] Comment on above: Performed By: #### 2 2631915, 70079088, 3318315 ####[address] [address] Specific gravity (U) [Rel density] >=1.030 Invalid Interpretation Code 1.005-1.030 [facility] Comment on above: Performed By: #### 2 0258881, 30109453, 2857051 ####[address] [address] Type of Urine collection method Clean Catch Normal [facility] Comment on above: Performed By: #### 2 6794927, [id number], [id number] ####[address] [address] Urobilinogen Qn (U) 0.2 {Elver'U}/dL Normal 0.0-1.0 [facility] Comment on above: Performed By: #### 2 9900981, 23035188, 3612731 ####[address] [address] WBC Auto Ql (U) Negative Normal Negative [facility] Comment on above: Performed By: #### 2 3450358, 08592224, 4732468 ####[facility] [address] [place] [address] WBC LM.HPF (Urine sed) [#/Area] 0-5 Normal 0-5 [facility] Comment on above: Performed By: #### 2 6180551, [id number], 7615458 ####[facility] [address] [place] [address] XR WRIST LEFT (MIN 3 VIEWS)o n 06-19-2022 Normal left wrist. [facility] EXAM: XR WRIST LEFT (MIN 3 VIEWS) HISTORY: M25.532. 26-year-old female, left wrist pain. COMPARISON: None. TECHNIQUE: Three views left wrist. FINDINGS: The radiocarpal joint and wrist are normal. Normal scapholunate distance. No erosion or chondrocalcinosis. [facility] Mauro Anton Jr., MD - 06/19/2022 EXAM: XR WRIST LEFT (MIN 3 VIEWS) HISTORY: M25.532. 26-year-old female, left wrist pain. COMPARISON: None. TECHNIQUE: Three views left wrist. FINDINGS: The radiocarpal joint and wrist are normal. Normal scapholunate distance. No erosion or chondrocalcinosis. IMPRESSION: Normal left wrist. 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 pain has been constant for about 1 week now. History of Present Illness Pt presents today to [facility] care. Previous pt of [facility] in [place]. Concerned today about left wrist pain which started about 1 yr ago; pain has worsened over the last week. 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 Carries everything in her left hand. Right handed. Pain location: medial martinez hand, radiating to wrist Pain description: shooting Pain rated: 2/10, 7/10 with certain movements. 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 Negative Tinels and DeQuervians. + Phalens. Report Developer strength equal. Neurologic: Cranial nerves II-XII grossly intact. Skin: [place], warm and dry. No rashes, ulcerations, or [...] day(s), # 30 tab(s), Refills(s) 1, Pharmacy: [facility], 170, cm, 06/01/22 12:55:00 EDT, Height/Length Dosing, 91.3, kg, 06/01/22 12:55:00 EDT, Weight Dosing [facility] External Ambulatory Referral 2. BMI 31.0-31.9,adult (Z68.31: Body mass index [BMI] 31.0-31.9, adult) The standard range for ages 18 and older is >=18.5 and < 25 kg/m2. Your BMI today was above this range, this falls in the obese category and there are medical benefits to weight loss. We can offer counselling, referral, and/or medical support in addressing this problem. Visit [employer] for useful information to help make better [...] unspecified fo (more content not included)... Normal [facility] Comment on above: Result Comment: Elec tronically [...] height. This can be done either in Bulgarian (U.S.) or metric measurements. Note that charts are available to help you find your BMI quickly and easily without having to do these calculations yourself. To calculate your BMI in Bulgarian (U.S[place] measurements, your health care provider will: [...] problems. ? BMI can be measured using Bulgarian measurements or metric measurements. ? To interpret [...] 07/20/2005 Document Revised: 10/21/2018 Document Reviewed: 09/21/2018 [employer] Patient Education ? 2019 [employer]. Orthopedics Carpal Tunnel Syndrome Carpal tunnel syndrome [...] Having a job, such as being a autotransfusionist or a food cashier, that requires you to repeatedly move [...] and midd (more content not included)... Normal [facility] Physician Referralon 022 Physician Referral [id number] #[id number] Normal [facility] Vital Signs Date Time Vital Sign Value Performing Clinician Ayad lozoya 01-10-2023 14:29-0500 Body height 165.1 cm Fei Canales MD Work Phone: [employer] [facility] 01-10-2023 14:29-0500 Body mass index (BMI) [Ratio] 34.35 kg/m2 Fei Canales MD Work Phone: [employer] [facility] 01-10-2023 14:29-0500 Body temperature 98.49 [degF] Fei Canales MD Work Phone: [facility] 01-10-2023 14:29-0500 Body weight 93.62 kg Fei Canales MD Work Phone: [facility] 01-10-2023 14:29-0500 Diastolic blood pressure 79 mm[Hg] Fei Canales MD Work Phone: [facility] 01-10-2023 14:29-0500 Heart rate 75 /min Fei Canales MD Work Phone: [facility] 01-10-2023 14:29-0500 Respiratory rate 16 /min Fei Canales MD Work Phone: [facility] 01-10-2023 14:29-0500 SaO2% (BldA) [Mass fraction] 99 % Fei Canales MD Work Phone: [facility] 01-10-2023 14:29-0500 Systolic blood pressure 140 mm[Hg] Fei Canales MD Work Phone: [facility] 12-08-2022 11:51-0500 Blood Pressure Location Keyon BROWN [facility] 12-08-2022 11:51-0500 Body temperature 98.24 [degF] Keyon BROWN [facility] 12-08-2022 11:51-0500 Diastolic blood pressure 78 mm[Hg] Cordellorin BROWN [facility] 12-08-2022 11:51-0500 Heart rate 84 /min Cordellorin BROWN [facility] 12-08-2022 11:51-0500 Respiratory rate 16 /min Keyon BROWN [facility] 12-08-2022 11:51-0500 SaO2% (BldA) [Mass fraction] 100 % Keyon SUSAN [facility] 12-08-2022 11:51-0500 Systolic blood pressure 114 mm[Hg] Keyon BROWN [facility] [place] 12-04-2022 16:32-0500 Body mass index (BMI) [Ratio] 33.66 kg/m2 Jason Tracy MD Work Phone: [facility] [place] 12-04-2022 16:32-0500 Body temperature 98.49 [degF] Jason Tracy MD Work Phone: [facility] [place] 12-04-2022 16:32-0500 Body weight 91.76 kg Jason Tracy MD Work Phone: [facility] [place] 12-04-2022 16:32-0500 Diastolic blood pressure 75 mm[Hg] Jason Tracy MD Work Phone: [facility] 12-04-2022 16:32-0500 Heart rate 91 /min Jason Tracy MD Work Phone: [facility] [place] 12-04-2022 16:32-0500 Respiratory rate 16 /min Jason Tracy MD Work Phone: [facility] [place] 12-04-2022 16:32-0500 SaO2% (BldA) [Mass fraction] 99 % Jason Tracy MD Work Phone: [facility] [place] 12-04-2022 16:32-0500 Systolic blood pressure 123 mm[Hg] Jason Tracy MD Work Phone: [facility] [place] 06-01-2022 12:50-0400 Blood Pressure Location Meena Carl [facility] 06-01-2022 12:50-0400 Body temperature 96.98 [degF] Meena Cral [facility] 06-01-2022 12:50-0400 Diastolic blood pressure 60 mm[Hg] Meena Carl [facility] 06-01-2022 12:50-0400 Heart rate 88 /min Meena Carl [facility] 06-01-2022 12:50-0400 SaO2% (BldA) [Mass fraction] 97 % Meena Carl [facility] 06-01-2022 12:50-0400 Systolic blood pressure 122 mm[Hg] Meena Carl [facility] 09-14-2021 10:15-0400 Body mass index (BMI) [Ratio] 31.62 kg/m2 Keyon Wilkinson MD Work Phone: [employer] Work Phone: 09-14-2021 10:15-0400 Body weight 86.18 kg Keyon Wilkinson MD Work Phone: [employer] Work Phone: 09-14-2021 10:14-0400 Body height 165.1 cm Keyon Wilkinson MD Work Phone: [employer] Work Phone: 09-14-2021 10:14-0400 Body temperature 98.2 [degF] Keyon Wilkinson MD Work Phone: [employer] Work Phone: 09-14-2021 10:14-0400 Diastolic blood pressure 93 mm[Hg] Keyon Wilkinson MD Work Phone: [employer] Work Phone: 09-14-2021 10:14-0400 Heart rate 91 /min Keyon Wilkinson MD Work Phone: [employer] Work Phone: 09-14-2021 10:14-0400 Respiratory rate 20 /min Keyon Wilkinson MD Work Phone: [employer] Work Phone: 09-14-2021 10:14-0400 SaO2% (BldA) [Mass fraction] 96 % Keyon Wilkinson MD Work Phone: [employer] Work Phone: 09-14-2021 10:14-0400 Systolic blood pressure 131 mm[Hg] Keyon Wilkinson MD Work Phone: [employer] Work Phone: Encounters Encounter Date Encounter Type Care Provider Facility Start: 08-07-2024 End: 08-07-2024 ambulatory ÓSCAR FUENTESJEFFLam [facility] Start: 08-07-2024 End: 08-07-2024 Subsequent hospital visit by physician Óscar Villagran DNP Work Phone: [facility] Start: 08-02-2024 End: 08-02-2024 ambulatory ÓSCAR Moreno ALFREDOJEFFN Chris[facility] Start: 07-31-2024 End: 07-31-2024 ambulatory ÓSCAR Moreno ALFREDOJEFFN [facility] Start: 07-31-2024 End: 07-31-2024 Subsequent hospital visit by physician Óscar Villagran DNP Work Phone: [facility] Start: 07-29-2024 End: 07-29-2024 ambulatory ÓSCAR GALLEGOSN [facility] Start: 07-27-2024 End: 07-27-2024 ambulatory ÓSCAR [facility]FFN [facility] Start: 07-27-2024 End: 07-27-2024 Subsequent hospital visit by physician John Partida DO Work Phone: [facility] Comment on above: Arrived Start: 07-25-2024 End: 07-25-2024 ambulatory ÓSCAR [facility] Start: 07-21-2024 End: 07-21-2024 ambulatory ÓSCAR [facility] Start: 07-19-2024 End: 07-19-2024 ambulatory ÓSCAR [facility] Start: 07-13-2024 End: 07-13-2024 Subsequent hospital visit by physician John Partida DO Work Phone: [facility] Comment on above: Arrived Start: 07-13-2024 End: 07-13-2024 ambulatory JOHN MEJIASLUCRECIAMAXINE [facility] Start: 07-06-2024 End: 07-06-2024 Subsequent hospital visit by physician John Partida DO Work Phone: [facility] Start: 06-29-2024 End: 06-29-2024 ambulatory JOHN PARTIDA [facility] Start: 06-29-2024 End: 06-29-2024 Subsequent hospital visit by physician John Partida DO Work Phone: [facility] Comment on above: Arrived Start: 06-26-2024 End: 06-26-2024 ambulatory JOHN MEJIASLUCRECIAMAXINE [facility] Start: 06-22-2024 End: 06-22-2024 ambulatory JOHN MEJIASLUCRECIAMAXINE [facility] Start: 06-20-2024 End: 06-20-2024 ambulatory JOHN Sarkis MEJIASLUCRECIAMAXINE [facility] Start: 06-16-2024 End: 06-16-2024 ambulatory JOHN Sarkis MEJIASLUCRECIAMAXINE [facility] Start: 06-14-2024 End: 06-14-2024 ambulatory JOHN Sarkis MEJIASLUCRECIAMAXINE [facility] Start: 06-08-2024 End: 06-08-2024 ambulatory YULIA ALVAREZZIO Mercmariya [facility] Start: 06-08-2024 End: 06-08-2024 ambulatory JOHN MEJIASLUCRECIAMAXINE [facility] Start: 05-22-2024 End: 05-24-2024 ambulatory JOHN JOHANSENMAXINE [facility] Start: 05-22-2024 End: 05-24-2024 Subsequent hospital visit by physician Óscar Villagran DNP Work Phone: [facility] Start: 03-06-2024 End: 03-06-2024 ambulatory YULIA MEERA Not Available Start: 03-04-2024 End: 03-04-2024 ambulatory YULIA JEFF MEERA [facility] Start: 03-04-2024 Emergency department patient visit KEYON BROWN [facility] Start: 12-08-2023 End: 12-08-2023 ambulatory YULIA MEERA Not Available Start: 10-25-2023 End: 10-25-2023 ambulatory YULIA MEERA Not Available Start: 10-18-2023 End: 10-18-2023 ambulatory YULIA MEERA Not Available Start: 10-07-2023 End: 10-07-2023 ambulatory YULIA MEERA Not Available Start: 04-09-[address] NONE LISTED REQUEST Facility: Start: 01-29-2023 End: 01-31-2023 Subsequent hospital visit by physician [facility] Additional Xray At [facility] Comment on above: Other closed fractur e of proximal end of right fibula with routine healing, subsequent encounter Start: 01-29-2023 End: 01-31-2023 Subsequent hospital visit by physician Keyon Brown MD Work Phone: [facility] Start: 01-10-2023 End: 01-10-2023 Emergency department patient visit Fei Canales MD Work Phone: [facility] ED Comment on above: Injury of right ankl e, initial encounter (Primary Dx) Start: 12-08-2022 End: 12-09-2022 ambulatory Keyon BROWN Facility:[facility] Start: 12-08-2022 End: 12-08-2022 Patient encounter procedure Keyon BROWN [facility] [place] Start: 12-04-2022 End: 12-04-2022 Emergency department patient visit Jason Tracy MD Work Phone: [facility] ED Comment on above: Viral illness (Prima ry Dx) Start: 09-03-2022 End: 09-03-2022 Emergency department patient visit Evan Moyer Facility:[facility] Start: 06-19-2022 End: 06-21-2022 Subsequent hospital visit by physician [facility] Additional Xray At [facility] Comment on above: Left wrist pain Start: 06-01-2022 End: 06-02-2022 ambulatory INTERNET MARKETING INTERN Meena Carl Facility:[facility] Start: 06-01-2022 End: 06-01-2022 Patient encounter procedure Meena Carl [facility] Start: 05-28-2022 ambulatory INTERNET MARKETING INTERN Meena Carl Faci lity:[facility] Start: 09-14-2021 End: 09-14-2021 Emergency department patient visit Keyon Wilkinson MD Work Phone: [facility] ED Comment on above: Subacute bronchitis (Primary Dx) Procedures Date Procedure Procedure Detail Performing Clinician Start: 08-07-2024 Gonadotropin chorion ic quantitative Yulia Robison MD Work Phone: Start: 07-31-2024 Gonadotropin chorion ic quantitative Yulia Robison MD Work Phone: Start: 01-29-2023 Radex ankle complete minimum 3 [...] Treatment Date Care Activity Detail Author Start: 03-14-2025 Depression Screen Depression Screen [facility] Start: 07-23-2024 COVID-19 Vaccine ( season) COVID-19 Vaccine () [facility] Start: 07-19-2024 End: 07-19-2024 Patient encounter procedure 07/19/2024 8:00 AM EDT Appointment [facility] Therapy [address] [place] [address] John Partida, DO [address] [place] [address] Claudia Mix, PT [address] [place] [address] [facility] Start: 07-13-2024 End: 07-13-2024 Patient encounter procedure [facility] Therapy Start: 07-06-2024 End: 07-06-2024 Patient encounter procedure 07/06/2024 9:00 AM EDT Appointment [facility] Physical Therapy [address] [facility] [place] [place] [address] John Partida, DO [address] [place] [address] Claudia Mix, PT [address] [place] [address] [facility] Physical Therapy Start: 06-22-2024 Influenza vaccination Flu vaccine (# 1) [facility] Start: 07-23-2023 COVID-19 Vaccine () COVID-19 Vaccine ( season) [facility] Start: 07-23-2022 Influenza vaccination Flu vaccine (# 1) [facility] Start: 06-22-2022 Influenza vaccination Flu vaccine (# 1) [facility] Start: 07-23-2021 Influenza vaccination Flu vaccine (# 1) [facility] Phone: Start: 08-02-2017 DTaP/Tdap/Td vaccine (2 - Td or Tdap) DTaP/Tdap/Td vaccine (2 - Td or Tdap) [facility] Start: 2015 Screening for malign ant neoplasm of cervix Pap smear [facility] Start: 2013 DTaP/Tdap/Td vaccine (1 - Tdap) DTaP/Tdap/Td vaccine (1 - Tdap) [facility] [facility] [employer] Phone: Start: 2013 Hepatitis B vaccine (1 of 3 - 19+ 3-dose series) Hepatitis B vaccine (1 of 3 - 19+ 3-dose series) [facility] Start: 2012 Hepatitis C screening Hepatitis C sc reen [facility] Start: 2009 HIV screening HIV screen [facility] Start: 2006 COVID-19 Vaccine (1) COVID-19 Vaccin e (1) [facility] [employer] Phone: Start: 2006 Depression Screen Depression Screen [facility] Start: 2005 HPV vaccine (1 - 2-d ose series) HPV vaccine (1 - 2-dose series) [facility] [employer] Phone: Start: 1998 Varicella vaccine (2 of 2 - 2-dose childhood series) Varicella vaccine (2 of 2 - 2-dose childhood series) [facility] Start: 1995 Varicella vaccine (1 of 2 - 2-dose childhood series) Varicella vaccine (1 of 2 - 2-dose childhood series) [facility] Phone[facility] Start: 05-30-1995 COVID-19 Vaccine (#1) COVID-19 Vacci ne (#1) [facility] Start: 1994 Hepatitis B vaccine (1 of 3 - 3-dose series) Hepatitis B vaccine (1 of 3 - 3-dose series) [facility] Start: 1994 Hepatitis C screening Hepatitis C [facility] Work Phone: Immunizations Immunization Date Immunization Notes Care Provider Fa zelalem 02-16-2008 Hep A, unspecified formulation Meena Carl [facility] 08-02-2007 Hep A, unspecified formulation Meena Carl [facility] 08-02-2007 meningococcal ACWY vaccine, unspecified formulation Meena Carl [facility] 08-02-2007 tetanus toxoid, reduced diphtheria toxoid, and acellular pertussis vaccine, adsorbed Meenazachariah Aguilarell [facility] 08-19-2000 DTaP, unspecified formulation Meena Carl [facility] 08-19-2000 measles, mumps and rubella virus vaccine Meena Carl [facility] 10-10-1997 varicella virus vaccine Meena Carl [facility] 03-09-1996 DTaP, unspecified formulation Meena Carl [facility] 03-09-1996 Hib, unspecified formulation Meena Carl [facility] 03-09-1996 measles, mumps and rubella virus vaccine Meena Carl [facility] 06-11-1995 DTP-Hib Meena Carl [facility] 06-11-1995 hepatitis B vaccine, pediatric or pediatric/adolescent dosage Meena Carl [facility] 04-05-1995 DTP-Hib Meena Carl [facility] 02-01-1995 DTP-Hib Meena Carl [facility] 01-04-1995 hepatitis B vaccine, pediatric or pediatric/adolescent dosage Meena Carl [facility] 1994 hepatitis B vaccine, pediatric or pediatric/adolescent dosage Meena Carl [facility] NEGATED: Highlighted row has not occurred!12-08-2022 influenza virus vaccine, unspecified formulation Cordellorin SUSAN [facility] NEGATED: Highlighted row has not occurred!12-08-2022 SARS-CoV-2 mRNA (tozinameran 5y-11y) vaccine Cordellsheriesarah BROWN [facility] [place] Payers Date Payer Category Payer Unknown [id number] 1994 Unknown [id number] 2.16.8 40.1.721853.3.579.2.727 1994 Unknown [id number] 2.16.8 40.1.584161.3.579.2.727 1994 Unknown [id number] 2.16.8 40.1.313264.3.579.2.727 1994 Unknown [id number] 2.16.8 40.1.438584.3.579.2.727 1994 Unknown [id number] 2.16.84 0.1.893814.3.579.2.593 1994 Unknown [id number] 2.16.84 0.1.384407.3.579.2.1259 1994 Unknown [id number] 2.16.84 0.1.560613.3.579.2.1259 1994 Unknown [id number] 2.16.840 .1.343623.3.579.2.1259 1994 Unknown [id number] 2.16.840 .1.172110.3.579.2.1259 1994 Unknown [id number] 2.16.840 .1.182522.3.579.2.1259 1994 Unknown [id number] 2.16.8 40.1.803953.3.579.2.174 1994 Unknown [id number] 2.16.8 40.1.548394.3.579.2.174 1994 Unknown [id number] 2.16.8 40.1.387307.3.579.2.174 1994 Unknown [id number] 2.16.8 40.1.066881.3.579.2.174 1994 Unknown [id number] 2.16.8 40.1.410490.3.579.2.174 1994 Unknown [id number] 2.16.8 40.1.628583.3.579.2.174 1994 Unknown [id number] 2.16.8 40.1.404581.3.579.2.174 1994 Unknown [id number] 2.16.8 40.1.177014.3.579.2.174 1994 Unknown [id number] 2.16.8 40.1.812447.3.579.2.174 1994 Unknown [id number] 2.16.8 40.1.191127.3.579.2.174 1994 Unknown [id number] 2.16.8 40.1.322038.3.579.2.174 1994 Unknown [id number] 2.16.8 40.1.223006.3.579.2.174 1994 Unknown [id number] 2.16.8 40.1.247646.3.579.2.174 1994 Unknown [id number] 2.16.8 40.1.318486.3.579.2.174 1994 Unknown [id number] 2.16.8 40.1.206413.3.579.2.174 1994 Unknown [id number] 2.16.8 40.1.819996.3.579.2.174 1994 Unknown [id number] 2.16.8 40.1.555499.3.579.2.174 1994 Unknown [id number] 2.16.8 40.1.771655.3.579.2.174 1994 Unknown [id number] 2.16.8 40.1.320785.3.579.2.174 1994 Unknown [id number] 2.16.8 40.1.664523.3.579.2.174 1994 Unknown [id number] 2.16.8 40.1.432319.3.579.2.174 1994 Unknown [id number] 2.16.8 40.1.189441.3.579.2.174 1994 Unknown [id number] 2.16.8 40.1.103934.3.579.2.174 1994 Unknown [id number] 2.16.8 40.1.165115.3.579.2.174 1959 Unknown [id number] 1. 2.840.452931.1.13.239.2.7.3.218711.315 Social History Date Type Detail Facility Start: 09-14-2021 End: 03-14-2024 Tobacco smoking status [facility] Never smoker [employer] Work Phone: Start: 09-14-2021 End: 03-14-2024 Tobacco use and exposure Never used [employer] Start: 09-14-2021 End: 05-22-2024 Alcohol intake Current non-drinker of alcohol (finding) [employer] Work Phone: Start: 1995 Sex Assigned At Not on file [facility] [employer] Work Phone: Start: 11-24-2022 End: 01-10-2023 Exposure to SARS-CoV-2 (event) Not sure [employer] Tobacco smoking status Never [facility] Start: 07-19-2023 End: 03-14-2024 Sex Assigned At Female [facility] Start: 12-04-2022 End: 01-10-2023 History SDOH Alcohol Frequency 1 [employer] Work Phone: Start: 07-19-2023 End: 03-14-2024 History of Social function [facility] [place] How often to you hav e a drink containing alcohol? Never [facility] [place] (I/We) worried wheth er (my/our) food would run out before (I/we) got money to buy more. Never true [facility] [place] At any time in the p ast 12 months, were you homeless or living in usp [including now]? No [facility] Start: 1995 Sex Assigned At Female [facility] [employer] Start: 07-19-2023 Gender identity Identifies as female gender (finding) [facility] Start: 07-19-2023 Sexual orientation Heterosexual (padmini miguelito) [facility] Functional Status Date Assessment Result Facility 12-08-2022 Functional Status N/A [facility] [place] 06-01-2022 Functional Status N/A [facility] Clinical Notes 06-01-2022 to 07-27-2024 Onel Brown, PT - 07/27/2024 9:15 AM EDClaudia Spivey, PT - 07/06/2024 9:00 AM Claudia Kowalski, PT - 06/29/2024 9:15 AM EDTDischarge InstructionsAttachmentsDischarge InstructionsAttachments Note Date & Type Note Facility 07-27-2024 History of Presen t illness Narrative Images from the original note were not included. [facility] Outpatient Physical Therapy Daily Note Date: 07/27/2024 Patient Name: Meena Lucero : 1995 (28 y.o.) Referring Provider (secondary): Dr. Partida Diagnosis: Sacral pain Treatment Diagnosis: SI pain Onset Date: 05/29/24 PT Insurance Information: [facility] Total # of Visits Approved: 16 Per Physician Order Total # of Visits to Date: 12 No Show: 0 Canceled Appointment: 0 Plan of Care/Certification Expiration Date: 08/03/24 Pre-Treatment Pain: 7/10 Subjective: 0910: Pain remains relatively unchanged. Pain still to gluteal fold today. Just found out she is . Assessment Assessment: Mild improvement after sacral corrections. Overall, minimal change since starting treatment. Advised to call referring physician if symptoms perisist. To call back here if she gets relief from today's treatment. Plan Continue with current plan of care Exercises/Modalities/Manual: See DocFlow Sheet Education: Education on POC and updated HEP with stretching Goals (Total # of Visits to Date: 12) Short Term Goals Short Term Goal 1: STG= LTG Travel Professional Goals Time Frame for Assisted Goals : 16 visits Travel Professional Goal 1: Decrease subjective SI/right gluteal pain to <3/10 with activity and transitional movements Post Treatment Pain: 5/10 Time In: 0910 Time Out : 09 Timed Code Treatment Minutes: 25 Minutes Total Treatment Time: 25 Minutes Onel Brown, PT Date: 07/27/2024 documented in this encounter [facility] 07-06-2024 History of Presen t illness Narrative Images from the original note were not included. [facility] Outpatient Physical Therapy Daily Note Date: 07/06/2024 Patient Name: Meena Lucero : 1995 (28 y.o.) Referring Provider (secondary): Dr. Partida Diagnosis: Sacral pain Treatment Diagnosis: SI pain Onset Date: 05/29/24 PT Insurance Information: [employer] Per Physician Order Total # of Visits to Date: 8 No Show: 0 Canceled Appointment: 0 Plan of Care/Certification Expiration Date: 08/03/24 Pre-Treatment Pain: 5/10 Assessment Assessment: Patient noting increased pain this week primarily with sitting and sit to stand movements. Symetrical iliac heights and PSIS in standing and supine. Forward flexion in standing exhibits slight right rotation higher than left PSIS. Tightness along sacral sulcus/crest. Educated on all 4's stretching. Will assess in one week. Plan Continue with current plan of care Exercises/Modalities/Manual: See DocFlow Sheet Education: All 4's stretching / lateral stretch. Will have pelvic health specialist in on treatment next session. Goals (Total # of Visits to Date: 8) Short Term Goals Time Frame for Short Term Goals: 4 visits Short Term Goal 1: Educate on home program of trunk/hip stretching and strengthening for self-correction of pelvic asymetry- MET Assisted Goals Time Frame for Travel Professional Goals : 10 visits Travel Professional Goal 1: Decrease subjective SI/right gluteal pain to <3/10 with activity and transitional movements Assisted Goal 2: Upgrade HEP for pelvic stab ex Assisted Goal 3: Maintain symetrical pelvic alignment for 5 consecutive days Post Treatment Pain: 4/10 Time In: 0910 Time Out : 0945 Timed Code Treatment Minutes: 35 Minutes Total Time: 35 Minutes CLAUDIA MIX PT Date: 07/06/2024 documented in this encounter [facility] 06-29-2024 History of Presen t illness Narrative Images from the original note were not included. [facility] Outpatient Physical Therapy Daily Note Date: 06/29/2024 Patient Name: Meena Lucero : 1995 (28 y.o.) Referring Provider (secondary): Dr. Partida Diagnosis: Sacral pain Treatment Diagnosis: SI pain Onset Date: 05/29/24 PT Insurance Information: [employer] Per Physician Order Total # of Visits to Date: 7 No Show: 0 Canceled Appointment: 0 Plan of Care/Certification Expiration Date: 08/03/24 Pre-Treatment Pain: 2/10 Assessment Assessment: Pain rated 2-3/10. Improved gait pattern and transfers sit to stand. Symetrical iliac crest heights as well as PSIS. Educated on standing hip ext and hip abd with tband. Hold IFES due to pain reduction. Plan to hold x 1 week and monitor status with patient completing independent HEP. Plan Continue with current plan of care Exercises/Modalities/Manual: See DocFlow Sheet Education: Educated on HEP and issued orang tband for hip abd and hip ext. Goals (Total # of Visits to Date: 7) Short Term Goals Time Frame for Short Term Goals: 4 visits Short Term Goal 1: Educate on home program of trunk/hip stretching and strengthening for self-correction of pelvic asymetry- MET Travel Professional Goals Time Frame for Assisted Goals : 10 visits Assisted Goal 1: Decrease subjective SI/right gluteal pain to <3/10 with activity and transitional movements Assisted Goal 2: Upgrade HEP for pelvic stab ex Travel Professional Goal 3: Maintain symetrical pelvic alignment for 5 consecutive days Post Treatment Pain: 2-01/29 Time In: 0915 Time Out : 0955 Timed Code Treatment Minutes: 35 Minutes Total Time: 40 Minutes CLAUDIA MIX PT Date: 06/29/2024 documented in this encounter [facility] 01-10-2023 Hospital Discharg e instructions Fei Canales MD - 01/10/2023 3:17 PM EST There was a possible concern for fracture of the fibula. Please follow-up with Dr. Rehman for further evaluation and be sure to use crutches and be nonweightbearing until then. The following attachments cannot be sent through Care Everywhere.Ankle Sprain (Bulgarian)documented in this encounter [facility] Work Phone: 12-08-2022 Hospital Discharg e instructions [...] than 2 years old. Live in a senior living. Travel on cruise ships. What are the [...] and water are not available, use hand paste mixer. Make sure that all people in your household wash their hands well and often. Take gbgi-ttt-harrklg and prescription medicines only as told by [...] and water are not available, use hand paste mixer. This information is not intended to replace advice given to you by your health care provider. Make sure you discuss any questions you have with your health care provider. Document Released: 11/08/2006 Document Revised: 04/26/2020 Document Reviewed: 09/13/2019 [employer] Patient Education 2020 [employer] Follow Up Care 12/08/2022 09:17:52 With:Keyon BROWN MD, FAM Address: When: only if needed [facility] [place] 12-04-2022 Hospital Discharg e instructions Jason Tracy MD - 12/04/2022 4:33 PM EST Increase fluids at home. Take Zofran for any nausea. Try Imodium/loperamide for diarrhea. Call primary care doctor for close follow-up. Use Tylenol or Motrin to keep fever down. The following attachments cannot be sent through Care Everywhere.Viral Infections (Bulgarian)documented in this encounter SAL[facility] LOZANO [employer] Work Phone: 06-01-2022 Hospital Discharg e instructions [...] height. This can be done either in Bulgarian ([place] or metric measurements. Note that charts are available to help you find your BMI quickly and easily without having to do these calculations yourself. To calculate your BMI in Bulgarian ([place] measurements, your health care provider will: [...] medical problems. BMI can be measured using Bulgarian measurements or metric measurements. To interpret your [...] 07/20/2005 Document Revised: 10/21/2018 Document Reviewed: 09/21/2018 [employer] Patient Education 2020 [employer] Inc[employer] 06/01/2022 13:15:39 Carpal Tunnel Syndrome Carpal [...] Having a job, such as being a autotransfusionist or a food cashier, that requires you to repeatedly move [...] 3 times per day. General instructions Take nfgu-vao-dneblav and prescription medicines only as told by [...] 11/05/2001 Document Revised: 03/17/2019 Document Reviewed: 03/17/2019 [employer] Patient Education 2020 [employer] Inc[employer] Follow Up Care 05/28/2022 08:22:05 With:Meena Carl CNP Address: When: only if needed [facility] Evaluation + Plan note [facility] Evaluation note Diagnosis Subacute bronchitis- Primary Acute bronchitis documented in this encounter [employer] Phone: evaluation note* Diagnosis Left wrist pain Pain in joint, forearm documented in this encounter SALO LOZANO [employer] Phone: evaluation note* Diagnosis Viral illness- Primary Unspecified viral infection, in conditions classified elsewhere and of unspecified site documented in this encounter [facility] [employer] Phone: [email or web address] note* Diagnosis Injury of right ankle, initial encounter- Primary documented in this encounter [facility] [employer] Phone: [email or web address] note* Diagnosis Other closed fracture of proximal end of right fibula with routine healing, subsequent encounter documented in this encounter [facility] [employer] Phone: Hospital course Narrative No data available for this section [facility] Care Hospital Discharge instructions* Attachments The following attachments cannot be sent through Care Everywhere. * Bronchitis (Bulgarian) [facility] Phone: progress note No data available for this section [facility] Reason for referral (narrative) Referred by: Meena Carl CNP 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 Summary Purpose Family History No Family History [...] Care Team (unrecognized sect ion and content) Lap Maker Relationship Specialty Start Date End Date Keyon Brown MD [address] [place] [address] [place] [address] PCP - General Family Medicine 12/04/22 Lap Maker Relationship Specialty Start Date End Date Keyon Brown MD [address] [place] [address] [place] [address] PCP - General Family Medicine 12/04/22 Lap Maker Relationship Specialty Start Date End Date Keyon Brown MD [address] [place] [address] [place] [address] PCP - General Family Medicine 12/04/22 Lap Maker Relationship Specialty Start Date End Date Óscar Villagran DNP [address] [place] [address] PCP - General Family Nurse Practitioner 03/14/24 Lap Maker Relationship Specialty Start Date End Date Óscar Vlilagran DNP [address] [place] [address] PCP - General Family Nurse Practitioner 03/14/24 Lap Maker Relationship Specialty Start Date End Date Óscar Villagran DNP [address] [place] [address] PCP - General Family Nurse Practitioner 03/14/24 Lap Maker Relationship Specialty Start Date End Date Óscar Villagran DNP [address] [place] [id number] PCP - General Family Nurse Practitioner 03/14/24 INFORMATION SOURCE (unrecogn ized section and content) DATE CREATED AUTHOR 02/01/2023 Cobos Saleem [facility] DATE CREATED AUTHOR AUTHOR'S ORGANIZ ATION 04/01/2023 [facility] DATE CREATED AUTHOR AUTHOR'S ORGANIZ ATION 03/07/2024 [facility] [place] DATE CREATED AUTHOR AUTHOR'S ORGANIZ ATION 08/08/2024 [facility] Acrinie[facility] Derrick charles FOR RECORDS PERTAINING TO PATIENTS WHO [...] BE BASED ON THE PRIMARY CLINICAL RECORDS. [facility] [employer] [facility]. provides no warranty or guarantee of the accuracy or completeness of information in this document.
== END 2024-08-18 09:06 | disposition home or self-care (01) ==
LOC: NOMS 09:06
PROVIDERS: Visit Provider Obstetrics & Gynecology
DX: Z34.91 Encounter for supervision of normal pregnancy, unspecified, first trimester (principal); Z3A.08 8 weeks gestation of pregnancy; N92.6 Irregular menstruation, unspecified
CPT/HCPCS: 76817

== ENCOUNTER 2024-09-11 08:32 | Outpatient (OUT) | payer OTHER, SELFPAY ==
--- OUTSIDE RECORDS SUMMARY | 2024-09-11 08:41 | XMS_ITS | CCD ---
Author Organization [facility] Care Team Providers Care Acid Etch Operator Name Role Phone Unavailable Primary Care Provider UnavailCharli Browne Primary Care Physician [phone] Keyon Brown MD Primary Care Provider 1( [phone] ANTHONY Carl Attending UnavailKeyon Lockett Attending Unavailable Evan Moyer Attending Unavailable LISHA, DR DRUMMOND LISTED Consulting Unavailronald woods [facility] NICOLE Primary Care Unavailable MEERA ., DR BENDER Attending Unavailable MEERA ., DR BENDER Admitting Unavailable Clingman DNP, Óscar A Primary Care Provider Clingman DNP, Óscar A Primary Care Provider JOHN PARTIDA Referring Unavailable CLINGMAN, ÓSCAR A Primary Care Unavailable JOHN PARTIDA Attending Unavailable CLINGMAN, ÓSCAR [...] Unavailable CLINJEFFN, ÓSCAR A Primary Care Unavailable JOHN PARTIDA Referring Unavailable CLINGMAN, ÓSCAR A Primary Care Unavailable YULIA ROBISON Referring Unavailable JOHN PARTIDA Attending Unavailable JOHN PARTIDA Referring Unavailable CLINGMAN, ÓSCAR A Primary Care Unavailable JOHN PARTIDA Attending Unavailable JOHN PARTIDA Referring Unavailable CLINGMAN, ÓSCAR A Primary Care Unavailable OLEJOHN CAIN Referring Unavailable OLEJOHN CAIN Attending Unavailable CLINGMAN, ÓSCAR A Primary Care Unavailable CLINGMAN, ÓSCAR A Primary Care Unavailable JOHN PARTIDA Referring Unavailable OLEJOHN CAIN Attending Unavailable CLINGMAN, ÓSCAR A Primary Care Unavailable OLEJOHN CAIN Referring Unavailable OLEJOHN CAIN Attending Unavailable YULIA ROBISON Referring Unavailable CLINGMAN, ÓSCAR A Primary Care Unavailable OLEJOHN CAIN Referring Unavailable CLINGMAN, ÓSCAR A Primary Care Unavailable OLEWIJOHN GOODMAN Attending Unavailable JOHN PARTIDA Attending Unavailable CLINGMAN, ÓSCAR A Primary Care Unavailable JOHN PARTIDA Referring Unavailable CLINGMAN, ÓSCAR A Primary Care Unavailable YULIA ROBISON Referring Unavailable CLINGMAN, ÓSCAR A Primary Care Unavailable OLEJOHN CAIN Referring Unavailable OLEWIJOHN GOODMAN Attending Unavailable JOHN PARTIDA Attending Unavailable CLINGMAN, ÓSCAR A Primary Care Unavailable JOHN PARTIDA Referring Unavailable KEYON BROWN Primary Care Unavailable JOHN PARTIDA Referring Unavailable CLINGMAN, ÓSCAR A Primary Care Unavailable JOHN PARTIDA Attending Unavailable JOHN PARTIDA Referring Unavailable CLINGMAN, ÓSCAR A Primary Care Unavailable JOHN PARTIDA Attending Unavailable MEERAYULIA Santos Attending Unavailable MEERAYULIA Attending Unavailable MEERAYULIA Attending Unavailable MEERA, YULIA Attending Unavailable MEERAYULIA Santos Attending Unavailable Allergies Allergy Classification Reported Allergen(s) Allergy Type Date of Onset Reaction(s) Facility (13 sources) Acetaminophen / HYDROcodone Drug Allergy 7 Rash [facility] (13 sources) Acetaminophen / oxyCODONE Drug Allergy 6 Rash [facility] (16 sources) Codeine; Translations: [codeine] Drug Allergy 7 Rash, Cutaneous eruption (morphologic abnormality) [facility] (3 sources) Acetaminophen / HYDROcodone; Translations: [acetaminophen-hy drocodone] Drug Allergy Hives [facility] (3 sources) Acetaminophen / oxyCODONE; Translations: [acetaminophen-ox ycodone] Drug Allergy Cutaneous eruption (morphologic abnormality) [facility] (1 source) Acetaminophen / HYDROcodone Drug Allergy [facility] (1 source) Acetaminophen / oxyCODONE Drug Allergy [facility] (1 source) Codeine Drug Allergy [facility] Medications Current Medications Medication Drug Class(es) [...] extended release oral tablet (6 sources) Uncompetitive P-trkihv-R-aspartate Receptor Antagonist, Sigma-1 Agonist Start: 09-14-2021 take 1 tablet by mouth every twelve hours as needed for cough Dextromethorphan- guaiFENesin 60-1200 MG TB12 Take 1 tablet by mouth every 12 hours as needed (COUGH CONGESTION) 28 tablet 0 09/14/2021 Active dextromethorphan hydrobromide 3 mg/ml / promethazine hydrochloride 1.25 mg/ml oral solution (6 sources) Phenothiazine, Uncompetitive J-citajx-X-aspartate Receptor Antagonist, Sigma-1 Agonist Start: 05-31-2018 promethazine-dext [...] day(s), # 30 tab(s), Refills(s) 1, Pharmacy: [facility], 170, cm, 06/01/22 12:55:00 EDT, Height/Length [...] TID, # 15 tab(s), Refills(s) 0, Pharmacy: [facility], 170, cm, 09/03/22 14:31:00 EDT, Height/Length [...] Range Facility HCG, [place] 08-07-2024 HCG, Quant 85294.0 mIU/mL High <5 [facility] Comment on above: Result Comment: Non-preg premeno <=5 Postmeno <=8 Male <=3 If HCG results do not concur with clinical observations, additional testing to confirm results is recommended. Performed By: #### B HCG #### [facility] [address] [place] [address] Telecommunications Cable Jointer: Armen Madrigal MD HCG, Quantitative, on 08-07-2024 [place] [address].0 m[IU]/mL High [facility] Comment on above: Non-preg premeno <=5 Postmeno <=8 Male <=3 If HCG results do not concur with clinical observations, additional testing to confirm results is recommended. Interpretation and review of laboratory results Abnormal [facility] HCG, [place] 08-02-2024 HCG, Quant 1366.0 mIU/mL High <5 [facility] Comment on above: Result Comment: Non-preg premeno <=5 Postmeno <=8 Male <=3 If HCG results do not concur with clinical observations, additional testing to confirm results is recommended. Performed By: #### B HCG #### [facility] [address] [place] [address] Telecommunications Cable Jointer: Armen Madrigal MD HCG, [place] 07-31-2024 HCG, Quant 506.3 mIU/mL High <5 [facility] Comment on above: Result Comment: Non-preg premeno <=5 Postmeno <=8 Male <=3 If HCG results do not concur with clinical observations, additional testing to confirm results is recommended. Performed By: #### B HCG #### [facility] [address] [place] [address] Telecommunications Cable Jointer: Armen Madrigal MD HCG, Quantitative, on 07-31-2024 HCG.beta subunit Qn 506.3 m[IU]/mL High [facility] Comment on above: Non-preg premeno <=5 Postmeno <=8 Male <=3 If HCG results do not concur with clinical observations, additional testing to confirm results is recommended. Interpretation and review of laboratory results Abnormal [facility] HCG, [place] 07-29-2024 HCG, Quant 200.3 mIU/mL High <5 [facility] Comment on above: Result Comment: Non-preg premeno <=5 Postmeno <=8 Male <=3 If HCG results do not concur with clinical observations, additional testing to confirm results is recommended. Performed By: #### B HCG #### [facility] [address] [place] [address] Telecommunications Cable Jointer: Armen Madrigal MD HCG Screen, Bloodon 07-27-20 24 HCG Screen, Blood Positive Abnormal [facility] Comment on above: Result Comment: If HCG results do not concur with clinical observations, additional testing to confirm result is recommended. This test is not labeled for use as a tumor marker. [facility] has confirmed the use of plasma for this test. This has not been cleared or approved by the U.S. Food and Drug Administration. The FDA has determined that such clearance is not necessary. Performed By: #### H CG #### [facility] [address] [place] [address] Telecommunications Cable Jointer: Armen Madrigal MD HCG, [place] 07-27-2024 HCG, Quant 73.4 mIU/mL High <[address] [place] [address] Comment on above: Result Comment: Non-preg premeno <=5 Postmeno <=8 Male <=3 If HCG results do not concur with clinical observations, additional testing to confirm results is recommended. Performed By: #### B HCG #### [facility] [address] [place] [address] Telecommunications Cable Jointer: Armen Madrigal MD HCG, [place] 06-08-2024 HCG, Quant <1.0 Normal <[address] [place] [address] Comment on above: Result Comment: Non-preg premeno <=5 Postmeno <=8 Male <=3 If HCG results do not concur with clinical observations, additional testing to confirm results is recommended. Performed By: #### B HCG #### [facility] [address] [place] [address] Telecommunications Cable Jointer: Armen Madrigal MD XR SACRUM COCCYX (MIN 2 VIEW S)on 05-24-2024 XR SACRUM COCCYX (MIN 2 VIEWS) HISTORY: Sacral pain. TECHNIQUE: 3 views sacrum and coccyx. COMPARISON: None. FINDINGS: Sacroiliac joints are normal. No fracture or acute osseous abnormality is identified. IMPRESSION: No acute process. Interpreted by: Parker Coleman MD Signed by: Parker Coleman MD 05/24/24 Final result Normal [facility] HCG, [place] 03-04-2024 HCG, Quant 3680.0 mIU/mL High <5 [facility] Comment on above: Result Comment: Non-preg premeno <=5 Postmeno <=8 Male <=3 If HCG results do not concur with clinical observations, additional testing to confirm results is recommended. Performed By: #### B HCG #### [facility] [address] [place] [address] Telecommunications Cable Jointer: Armen Madrigal MD RAD - MISCon 02-01-2023 RAD - MIS [id number] #1.00CD:127 [facility] XR ANKLE RIGHT (MIN 3 VIEWS) on 01-29-2023 FINDINGS/IMPRESSION: 1. Compression fracture tip of the fibula no longer separately seen. 2. Anatomic alignment throughout. 3. Soft tissue swelling has resolved. [facility] EXAM: XR ANKLE RIGHT (MIN 3 VIEWS). HISTORY: Other closed fracture of proximal end of right fibula with routine healing, subsequent encounter. COMPARISON: 01/10/2023. [facility] Mauro Anton Jr., MD - 01/29/2023 EXAM: XR ANKLE RIGHT (MIN 3 VIEWS). HISTORY: Other closed fracture of proximal end of right fibula with routine healing, subsequent encounter. COMPARISON: 01/10/2023. IMPRESSION: FINDINGS/IMPRESSION: 1. Compression fracture tip of the fibula no longer separately seen. 2. Anatomic alignment throughout. 3. Soft tissue swelling has resolved. [facility] Phone: Radiology Study observation (narrative) [facility] Phone: XR ANKLE RIGHT (MIN 3 VIEWS) Ordered By: Mauro Anton on 01-29-2023 [facility] Phone: RAD - MISCon 01-11-2023 [facility] [id number] #1.00CD:127 [facility] XR ANKLE RIGHT (MIN 3 VIEWS) on 01-10-2023 FINDINGS/IMPRESSION: 1. Very small nondisplaced incomplete fracture is questioned in the distal tip of the right fibula, with mild surrounding soft tissue swelling. 2. No other fracture, malalignment, significant arthritis or acute bony abnormality is seen. [facility] CLINICAL HISTORY: Right ankle pain and swelling since an injury yesterday. RIGHT ANKLE 3 VIEWS: [facility] João Amezquita MD - 01/10/2023 CLINICAL HISTORY: Right ankle pain and swelling since an injury yesterday. RIGHT ANKLE 3 VIEWS: IMPRESSION: FINDINGS/IMPRESSION: 1. Very small nondisplaced incomplete fracture is questioned in the distal tip of the right fibula, with mild surrounding soft tissue swelling. 2. No other fracture, malalignment, significant arthritis or acute bony abnormality is seen. [facility] Phone: Radiology Study observation (narrative) [facility] Phone: XR ANKLE RIGHT (MIN 3 VIEWS) Ordered By: João Amezquita on 01-10-2023 [facility] Phone: Ambulatory Visit Summaryon 0 12-08-2022 Ambulatory Visit Summary MEENA LUCERO :1995 Visit Date:12/08/2022 Ambulatory Visit Instructions Your Diagnosis Gastroenteritis due to [place]-like virus Obesity due to excess calories BMI [...] to 60 minutes before meals Pickup at [facility] Unchanged multivitamin, ( Multivitamins with Vitamin B Complex, Vitamin C, Minerals and L-Methylfolate oral capsule) 1 Capsules By Mouth Every day Contact prescribing physician if questions or concerns Unchanged ondansetron (Zofran ODT 4 mg Tab-Dis) 1 Tablets By Mouth 3 times a day Contact prescribing physician if questions or concerns Pharmacy Information [facility]: [address], [place] [id number] [phone] Medications and Immunizations Administered Not Given influenza virus vaccine, inactivated, Postpone due to refusal SARS-CoV-2 mRNA (tozinameran 5y-11y) vac, Postpone due to refusal Allergies Percocet 5/325 (Hives, Rash) Vicodin (Hives) codeine (Hives, Rash) Problems Ongoing - Any problem that you are currently receiving treatment for. BMI 31.0-31.9,adult Gastroenteritis due to [place]-like virus Non-smoker Obesity due to excess calories [...] 1 years old. ? Live in a assisted. ? Travel on cruise ships. What are [...] immune system (more content not included)... [facility] ED Note-Physicianon 12-08-19 ED Note-Physician [id number] #1.00CD:127 [facility] Family Medicine Office/Clini c Noteon 12-08-2022 [...] influenza and COVID. 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 Gastroenteritis due to [place]-like virus (A08.8: Other specified intestinal infections) Viral [...] day(s), # 30 tab(s), Refills(s) 0, Pharmacy: [facility], 170, cm, 12/08/22 12:00:00 EST, Height/Length Dosing, 90.5, kg, 12/08/22 12:00:00 EST, Weight Dosing Follow-up With When Contact Information Keyon BROWN MD [facility] Only if needed Additional Instructions: Patient Education Viral Gastroenteritis, Adult Problem List/Past Medical History Ongoing BMI 31.0-31.9,adult Gastroenteritis due to [place]-like virus Non-smoker Obesity due to excess calories [...] Use, 05/26/2017 Employment/School 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 [facility] Comment on above: Result Comment: Elec [...] 1 years old. ? Live in a assisted. ? Travel on cruise ships. What are [...] and water are not available, use hand surveillance camera technician. ? Make sure that all people in your household wash their hands well and often. ? Take qixb-msp-aihlukq and prescription medicines only as told by [...] to person (more content not included)... [facility] COVID-19, Rapidon 12-04-2022 SARS-CoV-2 (COVID-19) RNA WADE+probe Ql (Unsp spec) Not detected Not Detected [facility] Comment on above: Rapid NAAT: The [...] management decisions. Fact sheet for Healthcare Providers: https://www.fda.gov/media/986042/download Fact sheet for Patients: https://www.fda.gov/media/852724/download Methodology: Isothermal Nucleic Acid Amplification Specimen Description .NASOPHARYNGEAL SWAB [facility] Rapid influenza A/B antigens on 12-04-2022 Flu A Antigen Negative NEGATIVE [facility] Comment on above: for Influenza A Anti gen Flu B Antigen Negative NEGATIVE [facility] Comment on above: for Influenza B Anti gen. [facility] C Urineon 09-06-2022 Bacteria identified Cx [...] Locations R1: This test was performed at: [facility], [address] [place] [address], [facility] , , [facility] Comment on above: Performed By: #### 2 [id number] ####[facility] [address] [place] [address] Coding Summary.on 09-04-2022 Coding Summary. CD:[id number] Gh0bWw+PGhlYWQ+PE1FV YQcL13bwDRwhP9YD5jJJ C7LDAQFKQSIBC2GHW3er XZ7TGtmO3MktnQd IiudyCVkQF20JAi0JWV9 qAqzPWpotX3zbVDkH4i3 XwCqRH11aK65TQybZSAs VbN6VpTzqzixiAVx B8fsPdTckKXlPcx+PHRh YmxlIHdpZHRoPScxMDAl UkZsoTikOA0fHs8wWJJz LWNvbGxhcHNlOiBj j8nxCVUwNXpxBY5dtDjt L4TpcUQ0OHBfh9h2Nx92 dHI+CREgGAE5wVlfBCil c909YsYdc7ugSAK6 xZOtQBioTOS9C03lc0B3 LLVnQUGiOOB9oMY3wM9y gMuzwkiaI5CrxFYlNwI4 HZO8pMEtuQ1njOqi eqdfmE6jBwf+S91KRK8G CTQCDZ8DEwx4I7SwAbgl dHI+OA60NIGpII16mNXc dSKzq2alvLq8ZvLp KMKbUSH0pUmyNTijw6Lv JJTpP43lqSCtv0Q3JBNd lFdtjCTgYnZyxKO6uI4c FUxrhmkyl6fpvzaj Hdzvy5ingw66zB41F40h WIouHKHwNVS8AKTqDTNg eWoufq2haP3iUd8+IDxj o6mgb1ewySq7FkSf ASFcjkLyiIjfGXV2y5Eb Hw73K1NgsNasp5CcEwx5 xh27qHVyl7N0fDL3LUij FHIskE1fGCxhNfN8 BMFwPoRxuF52gRDnNPgv Ur4ydPlqbEicOJ3vTKDh qjvlUCYmsZ8sJBGvzMEx sHeaVY9tLEKgxfgj d042FaWbHGZ3UBEnhDIo S1FjbB6nEjQaBODiQFGa X0NgeZBeHPicY753ZIok OxY0WENyqpGqO1Xw AWQlwFbmNpQ8c6W3By9M q0LjnitmFJL4TSuqBTRx UmK9OqRnRcS6T6AgMcb3 NCEacQmiJJ6aU6Gu IDMqkxuljswecOI9JHDq XJWhmF41hJWsNPutPt2d z4M5s880QIUdSWPnwB72 Ld3veFeqPLIsoKBL yY7tpzpzk5uviolbUtUu FKKbZXd6SFl8OKGczUbj UcYjZJC9ZrI4NQW6pXFy oC5gtRrpeafoyH2i Oyc+S73poL4tZWI4WVX4 haeqDLGbkdEsFP33IK89 J8CoGioaeZUxvEX+PGRp zwExxPmmLP5hRzVi l4bte7FxBFnaD6EfAXOf AUroWra0DFRbJBI4eHJ9 jW4dMIIpNAmbd8N2pBZ8 K4BpmjDcxr9io7ki KISmZNnrE87lzMFft9D0 GTDgfGZ7HPRezSarBvPt bT56Rkc+ANWifSlwr6Jn Skdey1fqp6eoxTp1 IjMwJSIgdmFsaWduPSJ0 k7PxIs12L36fBVadKYEb SBLbGPHvKDZchIgiau3y pM7iOp0+PGNvbCB3 fZF6gU6uNOBoCdD3LDvo W725TaVblGGzQonbc3py j9xyjZc8JfKhMOYckrLx zXmkENZ4o8UkRn16 W85yQCnuVNZpDNJoNSSw DAIehPwbhx8acM2wSr0+ FA5yw0rapf19oD52nHF+ TSIeCQA0rCgsAGdv VRMjtF2aRTnzOzA8FINq LvYuhR27qCYwOMvxNk8e rSfzeXunVO9aUEIrinkm y087PxRox8kqNGTo qCKmGXjmTRB0Q88ou5Z5 YRTdISNtQOH9uYB5iA4e bGlnbjogbGVmdDsgdmVy iYznFZlkQNwfF092 IHRvcDsnPlBhdGllbnQg ZsYbPPe8G3IiYsj7CHEh zJodLB7usSUxWTfpTw6h nXzkbRvdRZ2lPOLk vqdhz282ElNqp5gfPJRn eNDkNFnrZRN4Q90az0F3 OUUfPWKzCZR2gLM5tT6x bGlnbjogbGVmdDsg bsQboEuvSBkaHCqoS000 IHRvcDsnPkJpcnRoIERh sOM5EP20NA08lQDmm1Q3 iZN1J2KnOFLaaoqk fqcmvXX1ODEuVOOzzF00 Ua2dyWuxYw7cPNCxRRQ2 MFFhgYClJ4WyvM6mBgOu FETaZDPsF4GlvWSj SZtlE174BLwmLbD5IPBp rtBmA7NjYUKxuDumKvU2 c2H8Bs5OE1E9XJ70XF17 yQEzj3R9mFY9N6Rx VKQjemoywdvvsMK6AUGm GWAgqA19Qf1snJqlCb6x SGGwJDV3LOPujFKrS5Dv zU5uMbYcUVJdVBHu W0NzyNYgYGtoM445TNcm YoG5JWIhtfDaY0HkBPDp cPfcQjT7d3S3Sz3QPLa5 OD63IY63rQSil6G0 fTO3V4DgLXQqcxhcpuyr gNV7HTPqSDLmmB97It0i iQmhJx7aGFFtLUN8HQNh xRJaW1ZpaN3qBgQx CPOnWARvF4ZlzHAiSShi M000CUlgLtY5HIGekcUb B6WsUAMonVhtUuF9n3T5 Im7BTALbLM49LFX7 aXS4QZ34QJ20T8ZeZlpm dGFibGU+PHRhYmxlIHdp ZHRoPScxMDAlJyBzdHls CL7nCh3dTLWcZIPp eKxqrFWbFhJbv1bkBPIr SNrkFI3ceFsxD9ImpGA0 YBSmj3i5Dr17P53vA9Ir dXA+JTRtcAM8aIM0 iP0kWeQuBtV8JMcnI256 LvMbmTBaTcxsc0vqn2nu jVq3EkR3GBOguxLyxYdd XFX9b5CyWh10S53n IHdpZHRoPSIxNSUiIHZh tOjcfc8leI9gJm6+PGNv bQD5kQQ6dQ5tAqNvEzJ4 DGklN736LkChrDLn Lafiz5dlw4alhEp9SnKl LASsdgUhhTldYZH7c9Rg Ud77P7WioEwfm3LpNuw8 gx53pQXxf4H1cIV9 V4DzPEJdpxfzyKGneJld BY0aINJijdfqLVGmaT5m AXQsX1r7CoKnJyC8BSqo V9LjbfB8DQEeyXMz BMsiTXE3U14li9F0YHEr CHYmGHY2kOV0dZ7crTdw bjogbGVmdDsgdmVydGlj FYzfPAayC235XCIh qZlgSHEkbT0hDZThbDEp wQbqNF9uQHJzhvhtIaJE Yq8QDQYvROpGBJlREB2s RTwvdGQ+PHRkIHN0 tDmrCJnyMTVwaO5oKPSu E2b8WuVwYfU1VZksR0Mv YOEbqanzIf41oD1xKpNf YhN1NXjtG7QlpbP9 RBBnoFJxMWfgDVN5R08l i3Q7OXDiTCJsBJG8qTH7 dL5riXqsiuwbxEFjzLeg dmVydGljYWwtYWxp I736ZKStxBitLyQeAkO7 RmW8DSB1A5XxMuh1XZLh tNklNW6xqGYaVFnxAl0s zBzzbDenMY0oXIXx bvfwGYDfuL8eZNOyoEKc oRyqOJ7fCQPkpebbz180 GrQiNUC5YIWldEHmM5Fp oU9kQfUrHPUqGQRd H2QajFErUTprJ072FLvb RsD7HZSverNgP4NzAIWb uBlnAuR5l3R8Fx5qDpBE ZWFyczwvdGQ+PHRk SVT5xVnvYCoyHZWbuK1a GXEjB3l0UuRxCkY2LXwl T6OsNUIbhvzrIv43gR7q KlJnOmA7UKcbY7Pb qoH1TWKxoLQmIIwxYPH2 K76ow7F0QBExUHOvWAP5 hXP8aR3xpVqyumdybGEo dDsgdmVydGljYWwt UUdhM502QMMypHhzTbHi bWFsZTwvdGQ+PHRkIHN0 pVehCVcmYQRqhX0wMEIu G1r6CeVvEkN1EKfl J5GyGJCdfqfjLk57sF6r YtDrKtW2KAnlZ2WpjrZ9 PIYjlZIuOIqtOGP4Z11h d8F8AAVtLYPkOKY2 gPP9lA7pbYcfgvtzxMAk dDsgdmVydGljYWwtYWxp H449ZWKjnUamGhFqLJSg EU2adPgyjYK+PC90 rk31A6TkJqwnMyi6LQCo HQT4sIO9rZ3wLJWsHMpf q7D4bID2W8VjrtGsqx4b h6mqQUTmXMbkE67a rAPjg9Z5BTNscKF9KHOc kQxhPwWlpQ81Ceu+PGNv fMfoi9BfWfced9nqr7er qOq8OkBeHOYkooXx rUfcLRA9x1CsCu30B50l IHdpZHRoPSIzMCUiIHZh fZvmhm6soO2iHh1+PGNv qFN7fHP8jP7tWtOy KhL0ZVooT216CtMqeNIs Xfqwh3phs5tmiYe7NzJw CKFqsfIamHlfRCU0q0Ii Fw02E1DpsGgzx6Kd Ujt5tx12pPUtk0T0rDS7 M5DdVJAcrfnvzOPpbKdl BG5yVHYpauydSTGmhL7v BQWjT8r5WuAcWzC0 ZHjdD5MtjhN6KAPvnRHt WITkqOZYoK0ldqqmb5fx ohkoQiAzDJUdELn8RPx2 LWFsaWduOiBsZWZ0 EuS5WQK9hOMqpJ4kbPgu lwxqoM7aCpm+QQs1x2ly uTCfLP5psQO0NG94TD88 oZHzm5R2tUW7M8Xq XGVsnvbsjskzcFZ9QUXd ISKdqS50Ro0utFrpWp0m PKFzCMJ8QNXjwKZhI3Mn dA6mLtRiDLKpHCLr S7TlwVRdVHdxI893OWwe JbW0MXUrjfGwY2JgVRKd nFmeNyC6g3W7Sl8RSZ53 YQ81YK30iHFwq9F2 lTD5H2GyWJYmtavchllu gUC2HTKlIZLojF85Qs7o kRveSi8aGMVfSKC6LJWa uAMdE8XywG7nOsLc AYGgOQNkT6LjvOTkYKom A117LHmiIxM1BTHbgnBm B0PeVSQceZgsAiS5b7F4 Uz4TWs07BV34LU64 kHOgl6O4bZN4G2ZzOXKk zoqobingnFE3LRPdXKSu tE22Zs4gkQdmUk9oQZGh XIY3FYRouXEoO3Ds mW1yAhRrEGXhULStQ6Wo sILgUKxiI874DNksLfE6 UDYjopXhW3AiRZVpaNyu AqD4p8I6Iu2NVHez crx2L4DhSzqhaFP+PC90 SEFyOB82vTVfmDDmc7oz zCq5HeSaPBBiZKD2lFdx FGoxm0GnSUKpN22e bGFw (more content not included)... [facility] Consent for Treatmenton 08-22 Consent for Treatment [id number] #1.00CD:127 [facility] Discharge Instructionson Discharge Instructions [id number] #1.00CD:127 [facility] ED Clinical Summaryon 2021 ED Clinical Summary [place] [id number] ED Clinical Summary Person Information Name: MEENA LUCERO [facility]athri/[facility] Age: 26 Years : 1995 Sex: Female Language: Sri [place]an PCP: Charli LOPEZ Marital Status: Single Visit [...] 15:51:51 09/03/2022 15:51:51 09/03/2022 15:51:51 ADDRESS: [address] [place] [address] [id number] PHYS DOC NOTES: MEDICAL INFORMATION: Prescriptions Given: New Medications [facility], [address], [place] [id number], [phone] ondansetron (Zofran ODT 4 mg Tab-Dis) 1 Tablets By Mouth 3 times a day. Refills: 0. Medications to Continue with No Changes Other Medications multivitamin, ( Multivitamins with Vitamin B Complex, Vitamin C, Minerals and L-Methylfolate oral capsule) 1 Capsules By Mouth every day. Refills: 0. PATIENT EDUCATION INFORMATION: Instructions: Nausea and Vomiting, Adult Follow up: With: Address: When: Charli CARLSON [address] [place] [id number] Business (1) In 3 days 09/06/2022 DIAGNOSIS: Nausea & vomiting [facility] ED Note-Physicianon 09-03-20 22 ED Note-Physician Basic Information Time Seen: Derrick [...] TID, # 15 tab(s), Refills(s) 0, Pharmacy: [facility], 170, cm, 09/03/22 14:31:00 EDT, Height/Length [...] CARLSON In 3 days 09/06/2022 EDT [address] [id number] Business (1) Additional Instructions: Patient Education Nausea and Vomiting, Adult Attestation Patient seen and evaluated by the physician anesthesiology physician assistant. Attending physician was present in the emergency department and supervised care. This visit was performed by both the physician and an APC. I performed all aspects of the MDM as documented. This report was transcribed using voice recognition software. Every effort was made to ensure accuracy, however, inadvertently computerized water treatment plant repairer mistakes may be present. Appropriate healthcare PPE [...] (09/03/22 14:49:0 (more content not included)... [facility] Comment on above: Result Comment: Elec [...] added (diluted fruit juice). ? Eat bland, omji-eo-gvdqlo foods in small amounts as you are able. These foods include bananas, applesauce, rice, lean meats, toast, and crackers. ? Avoid fluids that contain a lot of sugar or caffeine, such as energy drinks, sports drinks, and soda. ? Avoid alcohol. ? Avoid spicy or fatty foods. General instructions ? Take ypmp-giz-pzimraj and prescription medicines only as told by your health care provider. ? Drink enough fluid to keep your urine pale yellow. ? Wash your hands often using soap and water. If soap and water are not available, use hand surveillance camera technician. ? Make sure that all people in [...] and drinking to prevent dehydration. ? Take fzvv-ofs-zslwyho and prescription medicines only as told by [...] 11/08/2006 Document Revised: 03/01/2020 Document Reviewed: 04/18/2019 [employer] Patient Education ? 2019 [employer] [facility] ED Patient Summaryon 022 ED Patient Summary Jennifer [place] [id number] Patient Discharge Instructions Person Information Name: MEENA LUCERO Age: 26 Years Arrival Date: 09/03/2022 14:27:10 Discharge Diagnosis: Nausea & vomiting Primary Care Physician: Charli LOPEZ Provider Information Primary Provider: Evan Moyer DO Advanced Technical Solution Architect:Neil Meza PA-C The exam and treatment you received in the Emergency Department were for an urgent problem and are not intended as complete care. It is important that you follow up with a doctor, nurse practitioner, or physician?s anesthesiology physician assistant for ongoing care. If your [...] Follow-up Instructions: With: Address: When: [place] [address] Business (1) In 3 days 09/06/2022 In the event that this physician does not participate in your insurance network, please consult with your insurance company to find a nearby participating provider. Patient Education Materials: Nausea and Vomiting, Adult A MESSAGE TO ALL PATIENTS REGARDING OPIOIDS PRESCRIPTION OPIOIDS: WHAT YOU NEED TO KNOW Prescription opioids can be used to help relieve yyvvohzo-kr-limvwb pain and are often prescribed following a [...] be struggling with addiction, tell your health small animal caretaker and ask for guidance or call [facility]?S National Helpline at 9-320-031-BLVS. v Source: US Dep (more content not included)... Normal [facility] U BetaHcg Qualon 09-03-2022 HCG.beta subunit (U) [Moles/Vol] Negative Normal [facility] Comment on above: Performed By: #### 2 [id number], [id number], [id number] ####[facility] [address] [place] [address] UA With Cult Reflexon 2021 Bacteria LM Ql (Urine sed) 2+ /HPF Abnormal Trace [facility] Comment on above: Performed By: #### 2 [id number], [id number], [id number] ####[facility] [address] [place] [address] Bilirubin Ql (U) Negative Normal Negative [facility] Comment on above: Performed By: #### 2 [id number], [id number], [id number] ####[address] [address] Clarity (U) CLEAR Normal Clear [facility] Comment on above: Performed By: #### 2 [id number], [id number], [id number] ####[address] [address] Color (U) YELLOW Normal Yellow [facility] Comment on above: Performed By: #### 2 [id number], [id number], [id number] ####[place] 0680057 Epithelial cells.squamous LM.HPF (Urine sed) [#/Area] 5-8 Normal 0-2 [facility] Comment on above: Performed By: #### 2 [id number], [id number], [id number] ####[place] 0680057 Glucose Test strip (U) [Mass/Vol] Negative Normal Negative [facility] Comment on above: Performed By: #### 2 [id number], [id number], 1657879 ####[address] [address] Hemoglobin Ql (U) Negative Normal Negative [facility] Comment on above: Performed By: #### 2 [id number], [id number], [id number] ####[address] [address] Ketones (U) [Mass/Vol] Negative Normal Negative [facility] Comment on above: Performed By: #### 2 [id number], [id number], 0134073 ####[address] [address] [place].plasma/Lit hium.RBC (Bld) [Mass ratio] 0-3 Normal 0-3 [facility] Comment on above: Performed By: #### 2 [id number], [id number], [id number] ####[facility] [address] [place] [address] Mucus Ql (Urine sed) 1+ Normal [facility] Comment on above: Performed By: #### 2 [id number], [id number], [id number] ####[facility] [address] [place] [address] Nitrite Ql (U) Negative Normal Negative [facility] Comment on above: Performed By: #### 2 [id number], [id number], [id number] ####[address] [address] pH (U) 5.5 [pH] Invalid Interpretation Code 5.0-9.0 [facility] Comment on above: Performed By: #### 2 [id number], [id number], [id number] ####[address] [address] Protein (U) [Mass/Vol] Negative Normal Negative [facility] Comment on above: Performed By: #### 2 [id number], [id number], 6191833 ####[address] [address] Specific gravity (U) [Rel density] >=1.030 Invalid Interpretation Code 1.005-1.030 [facility] Comment on above: Performed By: #### 2 [id number], [id number], [id number] ####[place] [address]0057 Type of Urine collection method Clean Catch Normal [facility] Comment on above: Performed By: #### 2 [id number], [id number], [id number] ####[address] [address] Urobilinogen Qn (U) 0.2 {Elver'U}/dL Normal 0.0-1.0 [facility] Comment on above: Performed By: #### 2 8339056, 75966823, 0796081 ####[address] [address] WBC Auto Ql (U) Negative Normal Negative [facility] Comment on above: Performed By: #### 2 [id number], [id number], 0252277 ####[facility] [address] [place] [address] WBC LM.HPF (Urine sed) [#/Area] 0-5 Normal 0-5 [facility] Comment on above: Performed By: #### 2 [id number], [id number], 9013716 ####[facility] [address] [place] [address] XR WRIST LEFT (MIN 3 VIEWS)o n 06-19-2022 Normal left wrist. [facility] EXAM: XR WRIST LEFT (MIN 3 VIEWS) HISTORY: M25.532. 26-year-old female, left wrist pain. COMPARISON: None. TECHNIQUE: Three views left wrist. FINDINGS: The radiocarpal joint and wrist are normal. Normal scapholunate distance. No erosion or chondrocalcinosis. [facility] Mauro Anton Jr., MD - 06/19/2022 EXAM: XR WRIST LEFT (MIN 3 VIEWS) HISTORY: M25.532. 26-year-old female, left wrist pain. COMPARISON: None. TECHNIQUE: Three views left wrist. FINDINGS: The radiocarpal joint and wrist are normal. Normal scapholunate distance. No erosion or chondrocalcinosis. IMPRESSION: Normal left wrist. 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 pain has been constant for about 1 week now. History of [facility] Ill[facility] pt of [facility] in [place]. Concerned today about left wrist pain which started about 1 yr ago; pain has worsened over the last week. 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 Carries everything in her left hand. Right handed. Pain location: medial martinez hand, radiating to wrist Pain description: shooting Pain rated: 2/10, 7/10 with certain movements. 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 Negative Tinels and DeQuervians. + Phalens. Builder'S Labourer strength equal. Neurologic: Cranial nerves II-XII grossly intact. Skin: [place], warm and dry. No rashes, ulcerations, or [...] day(s), # 30 tab(s), Refills(s) 1, Pharmacy: [facility], 170, cm, 06/01/22 12:55:00 EDT, Height/Length Dosing, 91.3, kg, 06/01/22 12:55:00 EDT, Weight Dosing [facility] External Ambulatory Referral 2. BMI 31.0-31.9,adult (Z68.31: Body mass index [BMI] 31.0-31.9, adult) The standard range for ages 18 and older is >=18.5 and < 25 kg/m2. Your BMI today was above this range, this falls in the obese category and there are medical benefits to weight loss. We can offer counselling, referral, and/or medical support in addressing this problem. Visit [employer] for useful information to help make better [...] unspecified fo (more content not included)... Normal [facility] Comment on above: Result Comment: Elec [...] height. This can be done either in [place] (U.S[place] or metric measurements. Note that charts are available to help you find your BMI quickly and easily without having to do these calculations yourself. To calculate your BMI in [place] (U.[place] measurements, your health care provider will: [...] problems. ? BMI can be measured using [place]an measurements or metric measurements. ? To interpret [...] 07/20/2005 Document Revised: 10/21/2018 Document Reviewed: 09/21/2018 [employer] Patient Education ? 2020 [employer]. Orthopedics Carpal Tunnel Syndrome Carpal tunnel syndrome [...] Having a job, such as being a fire investigation lieutenant or a concession cashier, that requires you to repeatedly move [...] and midd (more content not included)... Normal [facility] Physician Referralon 022 Physician Referral [id number] Normal [facility] Vital Signs Date Time Vital Sign Value Performing Clinician Chucki devora 01-10-2023 14:29-0500 Body height 165.1 cm Fei Canales MD Work Phone: [facility] [employer] 01-10-2023 14:29-0500 Body mass index (BMI) [Ratio] 34.35 kg/m2 Fei Canales MD Work Phone: [facility] [employer] [facility] 01-10-2023 14:29-0500 Body temperature 98.49 [degF] Fei Canales MD Work Phone: [facility] [employer] [facility] 01-10-2023 14:29-0500 Body weight 93.62 kg Fei Canales MD Work Phone: [facility] [employer] [facility] 01-10-2023 14:29-0500 Diastolic blood pressure 79 mm[Hg] Fei Canales MD Work Phone: [facility] [employer] [facility] 01-10-2023 14:29-0500 Heart rate 75 /min Fei Canales MD Work Phone: [facility] [employer] [facility] 01-10-2023 14:29-0500 Respiratory rate 16 /min Fei Canales MD Work Phone: [employer] [facility] 01-10-2023 14:29-0500 SaO2% (BldA) [Mass fraction] 99 % Fei Canales MD Work Phone: [facility] [employer] 01-10-2023 14:29-0500 Systolic blood pressure 140 mm[Hg] Fei Canales MD Work Phone: [facility] 12-08-2022 11:51-0500 Blood Pressure Location Keyon BROWN [facility] 12-08-2022 11:51-0500 Body temperature 98.24 [degF] Cordellorin [facility] 12-08-2022 11:51-0500 Diastolic blood pressure 78 mm[Hg] Keyon S[facility] 12-08-2022 11:51-0500 Heart rate 84 /min Keyon SUSAN [facility] 12-08-2022 11:51-0500 Respiratory rate 16 /min Garfielder [facility] 12-08-2022 11:51-0500 SaO2% (BldA) [Mass fraction] 100 % Keyon BROWN [facility] 12-08-2022 11:51-0500 Systolic blood pressure 114 mm[Hg] Keyon BROWN [facility] [place] 12-04-2022 16:32-0500 Body mass index (BMI) [Ratio] 33.66 kg/m2 Jason Tracy MD Work Phone: [facility] [employer] 12-04-2022 16:32-0500 Body temperature 98.49 [degF] Jason Tracy MD Work Phone: [facility] [employer] 12-04-2022 16:32-0500 Body weight 91.76 kg Jason Tracy MD Work Phone: [facility] 12-04-2022 16:32-0500 Diastolic blood pressure 75 mm[Hg] Jason Tracy MD Work Phone: [facility] [employer] 12-04-2022 16:32-0500 Heart rate 91 /min Jason Tracy MD Work Phone: [facility] [employer] 12-04-2022 16:32-0500 Respiratory rate 16 /min Jason Tracy MD Work Phone: [facility] [employer] 12-04-2022 16:32-0500 SaO2% (BldA) [Mass fraction] 99 % Jason Tracy MD Work Phone: [facility] [employer] 12-04-2022 16:32-0500 Systolic blood pressure 123 mm[Hg] Jason Tracy MD Work Phone: [facility] [employer] 06-01-2022 12:50-0400 Blood Pressure Location Meena Carl [facility] 06-01-2022 12:50-0400 Body temperature 96.98 [degF] Meena Carl [facility] 06-01-2022 12:50-0400 Diastolic blood pressure 60 mm[Hg] Meena Carl [facility] 06-01-2022 12:50-0400 Heart rate 88 /min Meena Carl [facility] 06-01-2022 12:50-0400 SaO2% (BldA) [Mass fraction] 97 % Meena Carl [facility] 06-01-2022 12:50-0400 Systolic blood pressure 122 mm[Hg] Meena Carl [facility] 09-14-2021 10:15-0400 Body mass index (BMI) [Ratio] 31.62 kg/m2 Keyon Wilkinson MD Work Phone: [employer] Work Phone: 09-14-2021 10:15-0400 Body weight 86.18 kg Keyon Wilkinson MD Work Phone: [employer] Work Phone: 09-14-2021 10:14-0400 Body height 165.1 cm Keyon Wilkinson MD Work Phone: [employer] Work Phone: 09-14-2021 10:14-0400 Body temperature 98.2 [degF] Keyon Wilkinson MD Work Phone: [employer] Work Phone: 09-14-2021 10:14-0400 Diastolic blood pressure 93 mm[Hg] Keyon Wilkinson MD Work Phone: [employer] Work Phone: 09-14-2021 10:14-0400 Heart rate 91 /min Keyon Wilkinson MD Work Phone: [employer] Work Phone: 09-14-2021 10:14-0400 Respiratory rate 20 /min Keyon Wilkinson MD Work Phone: [employer] Work Phone: 09-14-2021 10:14-0400 SaO2% (BldA) [Mass fraction] 96 % Keyon Wilkinson MD Work Phone: [employer] Work Phone: 09-14-2021 10:14-0400 Systolic blood pressure 131 mm[Hg] Keyon Wilkinson MD Work Phone: [employer] Work Phone: Encounters Encounter Date Encounter Type Care Provider Facility Start: 08-18-2024 End: 08-18-2024 ambulatory YULIA ROBISON Not Available Start: 08-07-2024 End: 08-07-2024 ambulatory [facility] Start: 08-07-2024 End: 08-07-2024 Subsequent hospital visit by physician Óscar Villagran DNP Work Phone: [facility] Start: 08-02-2024 End: 08-02-2024 ambulatory ÓSCAR Ronald FUENTESREED [facility] Start: 07-31-2024 End: 07-31-2024 ambulatory [facility]AR [facility] Start: 07-31-2024 End: 07-31-2024 Subsequent hospital visit by physician Óscar Villagran DNP Work Phone: [facility] Start: 07-29-2024 End: 07-29-2024 ambulatory [facility] Start: 07-27-2024 End: 07-27-2024 ambulatory [facility]SCAR [facility] Start: 07-27-2024 End: 07-27-2024 Subsequent hospital visit by physician John Partida DO Work Phone: [facility] Comment on above: Arrived Start: 07-25-2024 End: 07-25-2024 ambulatory [facility]AR [facility] Start: 07-21-2024 End: 07-21-2024 ambulatory [facility] Start: 07-19-2024 End: 07-19-2024 ambulatory [facility]SCAR [facility] Start: 07-13-2024 End: 07-13-2024 Subsequent hospital visit by physician John Partida DO Work Phone: [facility] Comment on above: Arrived Start: 07-13-2024 End: 07-13-2024 ambulatory JOHN MEJIASLUCRECIAMAXINE [facility] Start: 07-06-2024 End: 07-06-2024 Subsequent hospital visit by physician John Partida DO Work Phone: [facility] Start: 06-29-2024 End: 06-29-2024 ambulatory JOHN MEJIASLUCRECIAMAXINE [facility] Start: 06-29-2024 End: 06-29-2024 Subsequent hospital visit by physician John Partida DO Work Phone: [facility] Comment on above: Arrived Start: 06-26-2024 End: 06-26-2024 ambulatory JOHN Sarkis MEJIASANT [facility] Start: 06-22-2024 End: 06-22-2024 ambulatory JOHN Sarkis MEJIASANT [facility] Start: 06-20-2024 End: 06-20-2024 ambulatory JOHN Dockery MAGALIEANT [facility] Start: 06-16-2024 End: 06-16-2024 ambulatory JOHN Sarkis MEJIASANT [facility] Start: 06-14-2024 End: 06-14-2024 ambulatory JOHN J MAGALIELUCRECIAMAXINE [facility] Start: 06-08-2024 End: 06-08-2024 ambulatory YULIA [facility] Start: 06-08-2024 End: 06-08-2024 ambulatory JOHN PARTIDA [facility] Start: 05-22-2024 End: 05-24-2024 [facility] Start: 05-22-2024 End: 05-24-2024 Subsequent hospital visit by physician Óscar Villagran DNP Work Phone: [facility] Start: 03-06-2024 End: 03-06-2024 ambulatory YULIA MEERA Not Available Start: 03-04-2024 End: 03-04-2024 ambulatory YULIA JEFF MEERA [facility] Start: 03-04-2024 Emergency department patient visit KEYON BROWN [facility] Start: 12-08-2023 End: 12-08-2023 ambulatory YULIA MEERA Not Available Start: 10-25-2023 End: 10-25-2023 ambulatory YULIA MEERA Not Available Start: 10-18-2023 End: 10-18-2023 ambulatory YULIA MEERA Not Available Start: 10-07-2023 End: 10-07-2023 ambulatory YULIA MEERA Not Available Start: 04-09-[address] NONE LISTED REQUEST Facility: Start: 01-29-2023 End: 01-31-2023 Subsequent hospital visit by physician Neeru Additional Xray At [facility] Comment on above: Other closed fractur e of proximal end of right fibula with routine healing, subsequent encounter Start: 01-29-2023 End: 01-31-2023 Subsequent hospital visit by physician Keyon Brown MD Work Phone: [facility] Start: 01-10-2023 End: 01-10-2023 Emergency department patient visit Fei Canales MD Work Phone: [facility] ED Comment on above: Injury of right ankl e, initial encounter (Primary Dx) Start: 12-08-2022 End: 12-09-2022 ambulatory Keyon BROWN Facility:[facility] Start: 12-08-2022 End: 12-08-2022 Patient encounter procedure Keyon BROWN [facility] [place] Start: 12-04-2022 End: 12-04-2022 Emergency department patient visit Jason Tracy MD Work Phone: [facility] ED Comment on above: Viral illness (Prima ry Dx) Start: 09-03-2022 End: 09-03-2022 Emergency department patient visit Evan Moyer Facility:[facility] Start: 06-19-2022 End: 06-21-2022 Subsequent hospital visit by physician [facility] Additional Xray At [facility] Comment on above: Left wrist pain Start: 06-01-2022 End: 06-02-2022 ambulatory CLINICAL SPECIALIST MEDICAL DEVICE Meena Carl Facility:[facility] Start: 06-01-2022 End: 06-01-2022 Patient encounter procedure Meena Carl [facility] Start: 05-28-2022 ambulatory CLINICAL SPECIALIST MEDICAL DEVICE Meena Carl Faci lity:[facility] Start: 09-14-2021 End: 09-14-2021 Emergency department patient visit Keyon Wilkinson MD Work Phone: [facility] ED Comment on above: Subacute [...] Work Phone: Start: 12-04-2022 Iaadiadoo influenza Deniz Tracy MD Work Phone: Start: 12-04-2022 COVID-19, RAPID Jason Tracy MD Work Phone: Start: 06-19-2022 Radex wrist complete minimum 3 views Israel Rehman MD Work Phone: Start: 11-22-2014 Cholecystectomy Meena Carl Tonsillectomy Meena Carl Tonsils and adenoids postoperative education Meena Carl Plan of Treatment Date Care Activity Detail Author Start: 03-14-2025 Depression Screen Depression Screen [facility] Start: 07-23-2024 COVID-19 Vaccine () COVID-19 Vaccine () [facility] Start: 07-19-2024 End: 07-19-2024 Patient encounter procedure 07/19/2024 8:00 AM EDT Appointment [facility] [address] [place] [address] John Partida, [address] [place] [id number] Claudia Mix, PT [address] [place] [address] [facility] Start: 07-13-2024 End: 07-13-2024 Patient encounter procedure [facility] Start: 07-06-2024 End: 07-06-2024 Patient encounter procedure 07/06/2024 9:00 AM EDT Appointment [facility] [address] [place] [address] John Partida, [address] [place] [address] Claudia Mix, PT [address] [place] [address] [facility] Start: 06-22-2024 Influenza vaccination Flu vaccine (# 1) [facility] Start: 07-23-2023 COVID-19 Vaccine ( season) COVID-19 Vaccine ( season) [facility] Start: 07-23-2022 Influenza vaccination Flu vaccine (# 1) [facility] Start: 06-22-2022 Influenza vaccination Flu vaccine (# 1) [facility] Start: 07-23-2021 Influenza vaccination Flu vaccine (# 1) [facility] Phone: Start: 08-02-2017 DTaP/Tdap/Td vaccine (2 - Td or Tdap) DTaP/Tdap/Td vaccine (2 - Td or Tdap) [facility] Start: 2015 Screening for malign ant neoplasm of cervix Pap smear [facility] Start: 2013 DTaP/Tdap/Td vaccine (1 - Tdap) DTaP/Tdap/Td vaccine (1 - Tdap) [facility] Phone: Start: 2013 Hepatitis B vaccine (1 of 3 - 19+ 3-dose series) Hepatitis B vaccine (1 of 3 - 19+ 3-dose series) [facility] Start: 2012 Hepatitis C screening Hepatitis C sc reen [facility] Start: 2009 HIV screening HIV screen [facility] Start: 2006 COVID-19 Vaccine (1) COVID-19 Vaccin e (1) [facility] Phone: Start: 2006 Depression Screen Depression Screen [facility] Start: 2005 HPV vaccine (1 - 2-d ose series) HPV vaccine (1 - 2-dose series) [facility] Phone: Start: 1998 Varicella vaccine (2 of 2 - 2-dose childhood series) Varicella vaccine (2 of 2 - 2-dose childhood series) [facility] Start: 1995 Varicella vaccine (1 of 2 - 2-dose childhood series) Varicella vaccine (1 of 2 - 2-dose childhood series) [facility] Work Phone: Start: 05-30-1995 COVID-19 Vaccine (#1) COVID-19 Vacci ne (#1) [facility] Start: 1994 Hepatitis B vaccine (1 of 3 - 3-dose series) Hepatitis B vaccine (1 of 3 - 3-dose series) [facility] Start: 1994 Hepatitis C screening Hepatitis C sc [facility] Work Phone: Immunizations Immunization Date Immunization Notes Care Provider Fa cilityrone 02-16-2008 Hep A, unspecified formulation Meena Carl [facility] 08-02-2007 Hep A, unspecified formulation Meena Carl [facility] 08-02-2007 meningococcal ACWY vaccine, unspecified formulation Meena Carl [facility] 08-02-2007 tetanus toxoid, reduced diphtheria toxoid, and acellular pertussis vaccine, adsorbed Meenazachariah Aguilarell [facility] 08-19-2000 DTaP, unspecified formulation Meena Carl [facility] 08-19-2000 measles, mumps and rubella virus vaccine Meenazachariah Carl [facility] 10-10-1997 varicella virus vaccine Meenazachariah Carl [facility] 03-09-1996 DTaP, unspecified formulation Meena Carl [facility] 03-09-1996 Hib, unspecified formulation Meena Carl [facility] 03-09-1996 measles, mumps and rubella virus vaccine Meena Carl [facility] 06-11-1995 DTP-Hib Meena Carl [facility] 06-11-1995 hepatitis B vaccine, pediatric or pediatric/adolescent dosage Meena Carl [facility] 04-05-1995 DTP-Hib Meena Carl [facility] 02-01-1995 DTP-Hib Meena Carl [facility] 01-04-1995 hepatitis B vaccine, pediatric or pediatric/adolescent dosage Meena Carl [facility] 1994 hepatitis B vaccine, pediatric or pediatric/adolescent dosage Meena Carl [facility] NEGATED: Highlighted row has not occurred!12-08-2022 influenza virus vaccine, unspecified formulation Keyon BROWN [facility] NEGATED: Highlighted row has not occurred!12-08-2022 SARS-CoV-2 mRNA (tozinameran 5y-11y) vaccine Keyon BROWN [facility] [place] Payers Date Payer Category Payer Unknown [id number] 1994 Unknown [id number] 2.16.8 [id number] 1994 Unknown [id number] 2.16.8 40.1.976780.3.579.2.727 1994 Unknown [id number] 2.16.8 40.1.845598.3.579.2.727 1994 Unknown [id number] 2.16.8 40.1.620560.3.579.2.727 1994 Unknown [id number] 2.16.84 0.1.682608.3.579.2.593 1994 Unknown [id number] 2.16.8 40.1.091526.3.579.2.174 1994 Unknown [id number] 2.16.8 40.1.097079.3.579.2.174 1994 Unknown [id number] 2.16.8 40.1.149707.3.579.2.174 1994 Unknown [id number] 2.16.8 40.1.118474.3.579.2.174 1994 Unknown [id number] 2.16.8 40.1.426159.3.579.2.174 1994 Unknown [id number] 2.16.8 40.1.880628.3.579.2.174 1994 Unknown [id number] 2.16.8 40.1.670847.3.579.2.174 1994 Unknown [id number] 2.16.8 40.1.321356.3.579.2.174 1994 Unknown [id number] 2.16.8 40.1.079003.3.579.2.174 1994 Unknown [id number] 2.16.8 40.1.217323.3.579.2.174 1994 Unknown [id number] 2.16.8 40.1.389483.3.579.2.174 1994 Unknown [id number] 2.16.8 40.1.905245.3.579.2.174 1994 Unknown [id number] 2.16.8 40.1.027261.3.579.2.174 1994 Unknown [id number] 2.16.8 40.1.215928.3.579.2.174 1994 Unknown [id number] 2.16.8 40.1.715371.3.579.2.174 1994 Unknown [id number] 2.16.8 40.1.066631.3.579.2.174 1994 Unknown [id number] 2.16.8 40.1.347034.3.579.2.174 1994 Unknown [id number] 2.16.8 40.1.080505.3.579.2.174 1994 Unknown [id number] 2.16.8 40.1.674848.3.579.2.174 1994 Unknown [id number] 2.16.8 40.1.375254.3.579.2.174 1994 Unknown [id number] 2.16.8 40.1.691544.3.579.2.174 1994 Unknown [id number] 2.16.8 40.1.714436.3.579.2.174 1994 Unknown [id number] 2.16.8 40.1.940429.3.579.2.174 1994 Unknown [id number] 2.16.8 40.1.382758.3.579.2.174 1994 Unknown [id number] 2.16.84 0.1.021998.3.579.2.1259 1994 Unknown [id number] 2.16.84 0.1.708537.3.579.2.1259 1994 Unknown [id number] 2.16.84 0.1.762013.3.579.2.1259 1994 Unknown [id number] 2.16.840 .1.371484.3.579.2.1259 1994 Unknown [id number] 2.16.840 .1.509463.3.579.2.1259 1994 Unknown [id number] 2.16.840 .1.482492.3.579.2.1259 1959 Unknown [id number] 1. 2.840.922774.1.13.239.2.7.3.015272.315 Social History Date Type Detail Facility Start: 09-14-2021 End: 03-14-2024 Tobacco smoking status [facility] Never smoker [employer] Work Phone: Start: 09-14-2021 End: 03-14-2024 Tobacco use and exposure Never used [employer] Start: 09-14-2021 End: 05-22-2024 Alcohol intake Current non-drinker of alcohol (finding) [employer] Work Phone: Start: 1995 [facility] Start: 11-24-2022 End: 01-10-2023 Exposure to SARS-CoV-2 (event) Not sure [employer] Tobacco smoking status Never [facility] Start: 07-19-2023 End: 03-14-2024 Sex Assigned At Female [facility] Start: 12-04-2022 End: 01-10-2023 History SDOH Alcohol Frequency 1 [employer] Work Phone: Start: 07-19-2023 End: 03-14-2024 History of Social function [employer] [employer] How often to you hav e a drink containing alcohol? Never [place] [employer] (I/We) worried wheth er (my/our) food would run out before (I/we) got money to buy more. Never true [facility] At any time in the p ast 12 months, were you homeless or living in [facility] [including now]? No [facility] Start: 1995 Sex Assigned At Female [facility] Start: 07-19-2023 Gender identity Identifies as female gender (finding) [facility] Start: 07-19-2023 Sexual orientation Heterosexual (fin ding) [facility] Functional Status Date Assessment Result Facility 12-08-2022 Functional Status N/A [facility] 06-01-2022 Functional Status N/A [facility] Clinical Notes 06-01-2022 to 07-27-2024 Onel Brown, PT - 07/27/2024 9:15 AM Claudia Kowalski, PT - 07/06/2024 9:00 AM Claudia Kowalski, PT - 06/29/2024 9:15 AM EDTDischarge InstructionsAttachmentsDischarge InstructionsAttachments Note Date & Type Note Facility 07-27-2024 History of Presen t illness Narrative Images from the original note were not included. [facility] Daily Note Date: 07/27/2024 Patient Name: Meena Lucero : 1995 (28 y.o.) Referring Provider (secondary): Dr. Partida Diagnosis: Sacral pain Treatment Diagnosis: SI pain Onset Date: 05/29/24 PT Insurance Information: [employer] Total # of Visits Approved: 16 Per [...] Goals Short Term Goal 1: STG= LTG Straight Edger Goals Time Frame for Straight Edger Goals : 16 [address] Jail Goal 1: Decrease subjective SI/right gluteal pain to <3/10 with activity and transitional movements Post Treatment Pain: 5/10 Time In: 0910 Time Out : 09 Timed Code Treatment Minutes: 25 Minutes Total Treatment Time: 25 Minutes Onel Brown, PT Date: 07/27/2024 documented in this encounter [facility] 07-06-2024 History of Presen t illness Narrative Images from the original note were not included. [facility] Daily Note Date: 07/06/2024 [...] strengthening for self-correction of pelvic asymetry- MET Jail Goals Time Frame for Straight Edger Goals : 10 visits Jail Goal 1: Decrease subjective SI/right gluteal pain to <3/10 with activity and transitional movements Straight Edger Goal 2: Upgrade HEP for pelvic stab ex Straight Edger Goal 3: Maintain symetrical pelvic alignment for 5 consecutive days Post Treatment Pain: 10 Time In: 0910 Time Out : 0945 Timed Code Treatment Minutes: 35 Minutes Total Time: 35 Minutes CLAUDIA MIX PT Date: 07/06/2024 documented in this encounter [facility] 06-29-2024 History of Presen t illness Narrative Images from the original note were not included. [facility] Therapy Daily Note Date: 06/29/2024 [...] strengthening for self-correction of pelvic asymetry- MET Jail Goals Time Frame for Straight Edger Goals : 10 visits Jail Goal 1: Decrease subjective SI/right gluteal pain to <3/10 with activity and transitional movements Straight Edger Goal 2: Upgrade HEP for pelvic stab ex Jail Goal 3: Maintain symetrical pelvic alignment for 5 consecutive days Post Treatment Pain: 2-3/10 Time In: 0915 Time Out : 0955 Timed Code Treatment Minutes: 35 Minutes Total Time: 40 Minutes CLAUDIA MIX PT Date: 06/29/2024 documented in this encounter [facility] 01-10-2023 [facility] Discharg e instructions Fei Canales MD - 01/10/2023 3:17 PM EST There was a possible concern for fracture of the fibula. Please follow-up with Dr. Rehman for further evaluation and be sure to use crutches and be nonweightbearing until then. The following attachments cannot be sent through Care Everywhere.Ankle Sprain ([place])documented in this encounter [facility] Work Phone: 12-08-2022 Hospital Discharg e [...] than 2 years old. Live in a assisted. Travel on cruise ships. What are the [...] and water are not available, use hand surveillance camera technician. Make sure that all people in your household wash their hands well and often. Take tmed-rur-rzrerjp and prescription medicines only as told by [...] and water are not available, use hand surveillance camera technician. This information is not intended to replace advice given to you by your health care provider. Make sure you discuss any questions you have with your health care provider. Document Released: 11/08/2006 Document Revised: 04/26/2020 Document Reviewed: 09/13/2019 [employer] Patient Education 2020 [employer] Follow Up Care 12/08/2022 09:17:52 With:Keyon BROWN MD, FAM Address: When: only if needed [facility] [place] 12-04-2022 Hospital Discharg e instructions Jason Tracy MD - 12/04/2022 4:33 PM EST Increase fluids at home. Take Zofran for any nausea. Try Imodium/loperamide for diarrhea. Call primary care doctor for close follow-up. Use Tylenol or Motrin to keep fever down. The following attachments cannot be sent through Care Everywhere.Viral Infections ([place])documented in this encounter [employer] [employer] Work Phone: 06-01-2022 Hospital Discharg e instructions [...] height. This can be done either in [place] ([place] or metric measurements. Note that charts are available to help you find your BMI quickly and easily without having to do these calculations yourself. To calculate your BMI in [place] measurements, your health care provider will: [...] medical problems. BMI can be measured using [place] measurements or metric measurements. To interpret your [...] 07/20/2005 Document Revised: 10/21/2018 Document Reviewed: 09/21/2018 [employer] Patient Education 2020 [employer] 06/01/2022 13:15:39 Carpal Tunnel Syndrome Carpal [...] Having a job, such as being a fire investigation lieutenant or a concession cashier, that requires you to repeatedly move [...] 3 times per day. General instructions Take knpe-gbx-nuybgdt and prescription medicines only as told by [...] 11/05/2001 Document Revised: 03/17/2019 Document Reviewed: 03/17/2019 [employer] Patient Education 2020 [employer]. Follow Up Care 05/28/2022 08:22:05 With:Meena Carl CNP Address: When: only if needed [facility] Evaluation + Plan note [facility] Evaluation note Diagnosis Subacute bronchitis- Primary Acute bronchitis documented in this encounter [employer] Phone: evalsfpsor note* Diagnosis Left wrist pain Pain in joint, forearm documented in this encounter [facility] [employer] Phone: evalefazvg note* Diagnosis Viral illness- Primary Unspecified viral infection, in conditions classified elsewhere and of unspecified site documented in this encounter [employer] Phone: evalspbvjl note* Diagnosis Injury of right ankle, initial encounter- Primary documented in this encounter [employer] Phone: evaluqvotz note* Diagnosis Other closed fracture of proximal end of right fibula with routine healing, subsequent encounter documented in this encounter [facility] [employer] Phone: Hospital course Narrative No data available for this section [facility] Hospital Discharge instructions* Attachments The following attachments cannot be sent through Care Everywhere. * Bronchitis ([place]) [facility] progress note No data available for this section [facility] Reason for referral (narrative) Referred by: Meena Carl CNP [facility] Advance Directives No Advanced Directives Records FoundDocuments on File Type Date Recorded Patient Radio Rigger Expl anation ACP-Advance Directive ACP-Power of [employer] Sales Associate Summary Purpose Family History No Family History [...] Sig Dispensed Refills Start Date End Da loperamide (RA ANTI-DIARRHEAL) 2 MG capsule Take 1 capsule by mouth 4 times daily as needed for Diarrhea 20 capsule 0 12/04/2022 12/14/2022 ondansetron (ZOFRAN) 4 MG tablet Take 1 tablet by mouth every 8 hours as needed for Nausea or Vomiting 12 tablet 0 12/04/2022 Care Team (unrecognized sect ion and content) Acid Etch Operator Relationship Specialty Start Date End Date Keyon Brown MD [address] [place] [address] [place] [address] PCP - General Family Medicine 12/04/22 Acid Etch Operator Relationship Specialty Start Date End Date Keyon Brown MD [address] [place] [address] [place] [address] PCP - General Family Medicine 12/04/22 Acid Etch Operator Relationship Specialty Start Date End Date Keyon Brown MD [address] [place] [address] [place] [address] PCP - General Family Medicine 12/04/22 Acid Etch Operator Relationship Specialty Start Date End Date Óscar Villagran DNP [address] [place] [address] PCP - General Family Nurse Practitioner 03/14/24 Acid Etch Operator Relationship Specialty Start Date End Date Óscar Villagran DNP [address] [place] [address] PCP - General Family Nurse Practitioner 03/14/24 Acid Etch Operator Relationship Specialty Start Date End Date Óscar Villagran DNP [address] [place] [id number] PCP - General Family Nurse Practitioner 03/14/24 Acid Etch Operator Relationship Specialty Start Date End Date Óscar VillagranHUMA [address] [place] [phone] PCP - General Family Nurse Practitioner 03/14/24 INFORMATION SOURCE (unrecogn ized section and content) DATE CREATED AUTHOR [facility]/01/2023 [facility] DATE CREATED AUTHOR AUTHOR'S ORGANIZ ATION 04/01/2023 [facility] DATE CREATED AUTHOR AUTHOR'S ORGANIZ ATION 08/08/2024 Kirsty charles DATE CREATED AUTHOR AUTHOR'S ORGANIZ ATION 08/19/[address] [facility] FOR RECORDS PERTAINING TO PATIENTS WHO ARE [...] BE BASED ON THE PRIMARY CLINICAL RECORDS. [facility] [employer] [facility]. provides no warranty or guarantee of the accuracy or completeness of information in this document.
[2024-09-11 08:59] LABS: BOX Test Reference Lab UNITY; BOX Test Sent Out UNITY
[2024-09-11 09:00] LABS: Basophils Percent Auto 0.7 % (0.2-2.0); Eosinophils Absolute Auto 0.1 10^3/uL (0.0-0.7); Eosinophils Percent Auto 1.8 % (0.9-7.0); Hematocrit 38.8 % (36.0-48.0); Immature Granulocytes Abs Auto 0.01 10^3/uL (0.00-0.03); Immature Granulocytes Pct Auto 0.2 % (0.0-0.5); Lymphocytes Percent Auto 21.5 % (20.5-60.0); Mean Corpuscular HGB Conc 33.5 g/dL (29.9-35.2); Mean Corpuscular Hemoglobin 28.3 pg (26.7-34.0); Mean Corpuscular Volume 84.3 fL (81.0-99.0); Mean Platelet Volume 12.1 fL (9.5-13.5); Monocytes Absolute Auto 0.3 10^3/uL (0.3-0.8); Monocytes Percent Auto 5.8 % (1.7-12.0); Neutrophils Absolute Auto 3.2 10^3/uL (1.4-6.5); Platelet Count 133 10^3/uL (150-450); Red Cell Distribution Width 13.6 % (11.0-15.0); White Blood Count 4.5 10^3/uL (4.0-11.0)
[2024-09-11 11:10] LABS: Estimated Average Glucose 100 mg/dL; Glycohemoglobin A1C 5.1 % (4.5-6.2)
[2024-09-11 11:15] LABS: Amphetamine Screen Urine NEGATIVE (NEGATIVE); Barbiturates Screen Urine NEGATIVE (NEGATIVE); Benzodiazepines Screen Urine NEGATIVE (NEGATIVE); Buprenorphine Screen Urine NEGATIVE (NEGATIVE); Cannabinoid Screen Urine NEGATIVE (NEGATIVE); Cocaine Screen Urine NEGATIVE (NEGATIVE); Methadone Screen Urine NEGATIVE (NEGATIVE); Methamphetamines Screen Urine NEGATIVE (NEGATIVE); Opiate Screen Urine NEGATIVE (NEGATIVE); Oxycodone Screen Urine NEGATIVE (NEGATIVE); Phencyclidine Screen Urine NEGATIVE (NEGATIVE); Tricyclic Antidepressant Urine NEGATIVE (NEGATIVE)
[2024-09-12 06:09] LABS: HBsAg Screen Negative (Negative); HCV Ab Non Reactive (Non Reactive); HIV Ab/p24 Ag Screen Non Reactive (Non Reactive)
[2024-09-12 07:09] LABS: Rubella Antibodies, IgG <0.90 index (Immune >0.99)
[2024-09-12 11:09] LABS: Rapid Plasma Reagin, Quant Non Reactive titer (NonRea<1:1)
== END 2024-09-11 08:33 | disposition home or self-care (01) ==
LOC: LAB 08:33
PROVIDERS: Visit Provider Obstetrics & Gynecology
DX: Z34.01 Encounter for supervision of normal first pregnancy, first trimester (principal); Z36.0 Encounter for antenatal screening for chromosomal anomalies; N92.6 Irregular menstruation, unspecified
CPT/HCPCS: 36415; 80307; 83036; 85025; 86592; 86762; 86803; 86850; 86900; 86901; 87086; 87340; 87389

== ENCOUNTER 2024-10-17 19:37 | Outpatient (REF) | payer OTHER, SELFPAY ==
--- OUTSIDE RECORDS SUMMARY | 2024-10-17 19:41 | XMS_ITS | CCD ---
Author Organization [facility] Care Team Providers Care [place] Distribution Clerk Name Role Phone Unavailable Primary Care Provider UnavailCharli Browne Primary Care Physician Keyon Brown MD Primary Care Provider ANTHONY Carl Attending UnavailKeyon Lockett Attending Unavailable Evan Moyer Attending Unavailable REQUEST, DR DRUMMOND LISTED Consulting Unavaila [place] [facility] [place]ICO[place] Primary Care Unavailable ENRIQUETA ., DR BENDER Attending Unavailable ENRIQUETA ., DR BENDER Admitting Unavailable Clingman HUMA, Óscar Moreno Primary Care Provider Tyshawn FINN, Óscar A Primary Care Provider Keyon Brown MD Primary Care Provider Yulia Robison DO Unavailable YULIA ROBISON Attending Unavailable ENRIQUETA, YULIA Attending Unavailable ENRIQUETAYULIA Attending Unavailable ENRIQUETAYULIA Attending Unavailable ENRIQUETAYULIA Attending Unavailable YULIA ROBISON Attending Unavailable CLINGMAN, ÓSCAR A Primary Care [...] Care Unavailable OLEWIMAXINE, JOHN J Referring Unavailable OLEWILERJOHN Attending Unavailable CLINGMAN, ÓSCAR A Primary Care Unavailable OLEWIJOHN GOODMAN J Referring Unavailable OLEWILER, JOHN J Attending Unavailable CLINGMAN, ÓSCAR A Primary Care Unavailable OLEWILER, JOHN J Referring Unavailable OLEWIJOHN GOODMAN J Attending Unavailable CLINGMAN, ÓSCAR A Primary Care Unavailable OLEWILER, JOHN J Referring Unavailable OLEWILER, JOHN J Attending Unavailable CLINGMAN, ÓSCAR A Primary Care Unavailable OLEWILER, JOHN J Referring Unavailable OLEWILER, JOHN J Attending Unavailable CLINGMAN, ÓSCAR A Primary Care Unavailable OLEWILER, JOHN J Referring Unavailable OLEWILER, JOHN J Attending Unavailable CLINGMAN, ÓSCAR A Primary Care Unavailable OLEANT, JOHN J Referring Unavailable OLEWILER, JOHN J Attending Unavailable CLINGMAN, ÓSCAR A Primary Care Unavailable OLEANT, JOHN J Referring Unavailable OLEWILER, JOHN J Attending Unavailable CLINGMAN, ÓSCAR A Primary Care Unavailable YULIA ROBISON Referring Unavailable CLINGMAN, ÓSCAR A Primary Care Unavailable OLEANT, JOHN J Referring Unavailable OLEWIJOHN GOODMAN J Attending Unavailable CLINGMAN, ÓSCAR A Primary Care Unavailable OLEWIMAXINE, JOHN J Referring Unavailable OLEJOHN CAIN Attending Unavailable CLINGMAN, ÓSCAR A Primary Care Unavailable YULIA ROBISON Referring Unavailable CLINGMAN, ÓSCAR A Primary Care Unavailable JOHN PARTIDA Referring Unavailable OLEJOHN CAIN Attending Unavailable CLINGMAN, ÓSCAR A Primary Care Unavailable YULIA ROBISON Referring Unavailable CLINGMAN, ÓSCAR A Primary Care Unavailable JOHN PARTIDA Referring Unavailable OLEJOHN CAIN Attending Unavailable CLINGMAN, ÓSCAR A Primary Care Unavailable ELENOLER, JOHN Dockery Referring Unavailable OLEWIMAXINE, JOHN Dockery Attending Unavailable CLINGMAN, ÓSCAR A Primary Care Unavailable JOHN PARTIDA Referring Unavailable JOHN PARTIDA Attending Unavailable KEYON BROWN Primary Care Unavailable KEYON BROWN Primary Care Unavailable YULIA ROBISON Referring Unavailable ÓSCAR NASSAR Primary Care Unavailable JOHN PARTIDA Referring Unavailable JOHN PARTIDA Attending Unavailable Allergies Allergy Classification Reported Allergen(s) Allergy Type Date of Onset Reaction(s) Facility (19 sources) Acetaminophen / HYDROcodone Drug Allergy 7 Rash, Unknown [facility] (19 sources) Acetaminophen / oxyCODONE Drug Allergy 5 Rash, Unknown [facility] (20 sources) Codeine; Translations: [codeine] Drug Allergy 7 Rash, Cutaneous eruption (morphologic abnormality), Unknown [facility] (3 sources) Acetaminophen / HYDROcodone; Translations: [acetaminophen-hy drocodone] Drug Allergy [facility] (3 sources) Acetaminophen / oxyCODONE; Translations: [acetaminophen-ox ycodone] Drug Allergy Cutaneous eruption (morphologic abnormality) [facility] (1 source) Acetaminophen / HYDROcodone Drug Allergy [facility] (1 source) Acetaminophen / oxyCODONE Drug Allergy [facility] (1 source) Codeine Drug Allergy [facility] (3 sources) HYDROcodone Drug Allergy 3 [facility] (3 sources) orange allergenic extract Drug Allergy 5 [facility] Medications Current Medications Medication Drug Class(es) Dates [...] extended release oral tablet (6 sources) Uncompetitive O-vvcygt-D-aspartate Receptor Antagonist, Sigma-1 Agonist Start: 09-14-2021 take 1 tablet by mouth every twelve hours as needed for cough Dextromethorphan- guaiFENesin 60-1200 MG TB12 Take 1 tablet by mouth every 12 hours as needed (COUGH CONGESTION) 28 tablet 0 09/14/2021 Active dextromethorphan hydrobromide 3 mg/ml / promethazine hydrochloride 1.25 mg/ml oral solution (6 sources) Phenothiazine, Uncompetitive Y-zzqtma-D-aspartate Receptor Antagonist, Sigma-1 Agonist Start: 05-31-2018 promethazine-dext [...] day(s), # 30 tab(s), Refills(s) 1, Pharmacy: [facility], 170, cm, 06/01/22 12:55:00 EDT, Height/Length [...] days 10 tablet 0 05/22/2024 05/27/2024 Active 27-1 MG tablet (3 sources) 27-1 MG tablet 1 (one) time each day at the same time Active Multivitamins with Vitamin B Complex, Vitamin C, Minerals and L-Methylfolate oral capsule (2 sources) Start: 01-19-2017 Multivitamins with Vitamin B Complex, Vitamin C, Minerals and L-Methylfolate oral capsule 1 cap(s), Oral, Daily, 30 cap(s), Refill(s) 0 Start Date: 01/19/17 Status: Ordered MV-Min-Fe Fum-FA-DHA ( 1 PO) (13 sources) MV-Min-Fe Fum-FA-DHA ( 1 PO) Take by mouth. Active MV-Min- Fe Fum-FA-DHA ( 1 PO) Take by mouth Active MV-Min- Fe Fum-FA-DHA ( 1 PO) Take by mouth 0 Active promethazine hydrochloride 12.5 mg oral tablet (3 sources) Phenothiazine Start: 02-10-2024 take 1 tablet by mouth every six hours for nausea promethazine (Phenergan) 12.5 MG tablet Indications: Nausea and vomiting in Take 1 tablet (12.5 mg) by mouth every 6 (six) hours if needed for nausea or vomiting for up to 14 doses 56 tablet 02/10/2024 Active Zofran ODT 4 mg Tab-Dis (1 source) Start: 09-03-2022 take 1 tablet by mouth three times daily Zofran ODT 4 mg Tab-Dis 4 mg = 1 tab(s), Oral, TID, # 15 tab(s), Refills(s) 0, Pharmacy: [facility], 170, cm, 09/03/22 14:31:00 EDT, Height/Length [...] menstruation, unspecified; Translations: [Irregular menstruation, unspecified] Onset: 08-02-2024 Chronic Other injuries and conditions due to [...] mass index 30+ - obesity 06-01-2022 Chronic Other and delivery including normal (2 sources) First trimester ; Translations: [Encounter for supervision of normal , unspecified, first trimester] 09-18-2024 Episodic Residual codes; unclassified (3 sources) Patient encounter status; Translations: [Other specified health status] Onset: 06-01-2022 Episodic Residual codes; unclassified (2 sources) Gestation period, 11 weeks; Translations: [11 weeks gestation of ] 09-18-2024 Episodic Unclassified (2 sources) Non-smoker 06-01-2022 Viral infection (1 source) Viral disease; Translations: [Viral infection, unspecified] Episodic Past or Other Problems Problem Classification Problem Date Documented Date Episodic/Chronic Other connective tissue disease (3 sources) Myalgia, other site; Translations: [Myalgia, other site] Onset: 05-22-2024 Episodic Spondylosis; intervertebral disc disorders; other back problems (3 sources) Sacrococcygeal disorders, not elsewhere classified; Translations: [Sacrococcygeal disorders, not elsewhere classified] Onset: 05-22-2024 Episodic Unclassified (4 sources) Onset: 10-21-2012 Resolved: 11-22-2017 12-03-2017 NEGATED: Highlighted row has been ruled out!Unclassified (3 sources) No known active problems 05-22-2024 Results Test Name Value Interpretation Reference Range Facility Urinalysis macro (dipstick) panel (U)on 09-18-2024 Bilirubin, UA Negative Negative - 4(70) +++ mg/dL [facility] Blood, UA Negative Negative - 50 Darnell/mcL [facility] Clarity, UA Clear [facility] re Color, UA Yellow [facility] Healthcar e Glucose, UA Negative Negative - 1999(110) ++++ mg/dL [facility] Interpretation and review of laboratory results [facility] Ketones, UA Negative Negative - 160(16) ++++ mg/dL [facility] Leukocytes, UA Negative Negative - 500+++ Shona/mcL [facility] Nitrite, UA Negative Negative - Positive [facility] pH, UA 6.5 5 - 9 [facility] Healthcar e Protein, UA Negative Negative - 1999(20) ++++ mg/dL [facility] Spec Grav, UA 1.015 1 - 1.03 [facility] Urobilinogen, UA 0.2 0.2 - 12 mg/dL [facility] BOX TESTon 09-11-2024 BOX TEST SENT OUT [facility] [address] [facility] Healthcar e [address]OX2 11/11/24 [facility] Healthcar e UNITY BOX [facility] Healthcar e HCG, Quanton 08-07-2024 HCG, Quant 50313.0 mIU/mL High <5 [facility] Comment on above: Result Comment: Non-preg premeno <=5 Postmeno <=8 Male <=3 If HCG results do not concur with clinical observations, additional testing to confirm results is recommended. Performed By: #### B HCG #### [facility] [address] [place] [address] Circulation Supervisor: Armen Madrigal MD HCG, Quantitative, on 08-07-2024 [place] [address].0 m[IU]/mL High [facility] Comment on above: Non-preg premeno <=5 Postmeno <=8 Male <=3 If HCG results do not concur with clinical observations, additional testing to confirm results is recommended. Interpretation and review of laboratory results Abnormal [facility] HCG, Quanton 08-02-2024 HCG, Quant 1366.0 mIU/mL High <5 [facility] Comment on above: Result Comment: Non-preg premeno <=5 Postmeno <=8 Male <=3 If HCG results do not concur with clinical observations, additional testing to confirm results is recommended. Performed By: #### B HCG #### [facility] [address] [place] [address] Circulation Supervisor: Armen Madrigal MD HCG, Quanton 07-31-2024 HCG, Quant 506.3 mIU/mL High <5 [facility] Comment on above: Result Comment: Non-preg premeno <=5 Postmeno <=8 Male <=3 If HCG results do not concur with clinical observations, additional testing to confirm results is recommended. Performed By: #### B HCG #### [facility] [address] [place] [address] Circulation Supervisor: Armen Madrigal MD HCG, Quantitative, on 07-31-2024 HCG.beta subunit Qn 506.3 m[IU]/mL High [facility] Comment on above: Non-preg premeno <=5 Postmeno <=8 Male <=3 If HCG results do not concur with clinical observations, additional testing to confirm results is recommended. Interpretation and review of laboratory results Abnormal [facility] HCG, Quanton 07-29-2024 HCG, Quant 200.3 mIU/mL High <[address] [place] [address] Comment on above: Result Comment: Non-preg premeno <=5 Postmeno <=8 Male <=3 If HCG results do not concur with clinical observations, additional testing to confirm results is recommended. Performed By: #### B HCG #### [facility] [address] [place] [address] Circulation Supervisor: Armen Madrigal MD HCG Screen, Bloodon 07-27-20 24 HCG Screen, Blood Positive Abnormal [facility] Comment on above: Result Comment: If HCG results do not concur with clinical observations, additional testing to confirm result is recommended. This test is not labeled for use as a tumor marker. [facility] has confirmed the use of plasma for this test. This has not been cleared or approved by the U.S. Food and Drug Administration. The FDA has determined that such clearance is not necessary. Performed By: #### H CG #### [facility] [address] [place] [address] Circulation Supervisor: Armen Madrigal MD HCG, Quanton 07-27-2024 HCG, Quant 73.4 mIU/mL High <[address] [place] [address] Comment on above: Result Comment: Non-preg premeno <=5 Postmeno <=8 Male <=3 If HCG results do not concur with clinical observations, additional testing to confirm results is recommended. Performed By: #### B HCG #### [facility] [address] [place] [address] Circulation Supervisor: Armen Madrigal MD HCG, Quanton 06-08-2024 HCG, Quant <1.0 Normal <5 [facility] Comment on above: Result Comment: Non-preg premeno <=5 Postmeno <=8 Male <=3 If HCG results do not concur with clinical observations, additional testing to confirm results is recommended. Performed By: #### B HCG #### [facility] [address] [place] [address] Circulation Supervisor: Armen Madrigal MD XR SACRUM COCCYX (MIN 2 VIEW S)on 05-24-2024 XR SACRUM COCCYX (MIN 2 VIEWS) HISTORY: Sacral pain. TECHNIQUE: 3 views sacrum and coccyx. COMPARISON: None. FINDINGS: Sacroiliac joints are normal. No fracture or acute osseous abnormality is identified. IMPRESSION: No acute process. Interpreted by: Parker Coleman MD Signed by: Parker Coleman MD 05/24/24 Final result Normal [facility] HCG, Quanton 03-04-2024 HCG, Quant 3680.0 mIU/mL High <5 [facility] Comment on above: Result Comment: Non-preg premeno <=5 Postmeno <=8 Male <=3 If HCG results do not concur with clinical observations, additional testing to confirm results is recommended. Performed By: #### B HCG #### [facility] [address] [place] [address] Circulation Supervisor: Armen Madrigal MD [facility] - MIS [id number] #1.00CD:127 Normal [facility] XR ANKLE RIGHT (MIN 3 VIEWS) on 01-29-2023 FINDINGS/IMPRESSION: 1. Compression fracture tip of the fibula no longer separately seen. 2. Anatomic alignment throughout. 3. Soft tissue swelling has resolved. [facility] RIS CONSOLIDATED EXAM: XR ANKLE RIGHT (MIN 3 VIEWS). HISTORY: Other closed fracture of proximal end of right fibula with routine healing, subsequent encounter. COMPARISON: 01/10/2023. [facility] RIS Mauro Dhaliwal Jr., MD - 01/29/2023 EXAM: XR ANKLE RIGHT (MIN 3 VIEWS). HISTORY: Other closed fracture of proximal end of right fibula with routine healing, subsequent encounter. COMPARISON: 01/10/2023. IMPRESSION: FINDINGS/IMPRESSION: 1. Compression fracture tip of the fibula no longer separately seen. 2. Anatomic alignment throughout. 3. Soft tissue swelling has resolved. [facility] Phone: Radiology Study observation (narrative) [facility] Phone: XR ANKLE RIGHT (MIN 3 VIEWS) Ordered By: Mauro Anton on 01-29-2023 [facility] Phone: RAD - MISCon 01-11-2023 RAD - MIS [id number] #1.00CD:127 Normal [facility] XR ANKLE RIGHT (MIN 3 VIEWS) on 01-10-2023 FINDINGS/IMPRESSION: 1. Very small nondisplaced incomplete fracture is questioned in the distal tip of the right fibula, with mild surrounding soft tissue swelling. 2. No other fracture, malalignment, significant arthritis or acute bony abnormality is seen. [facility] CLINICAL HISTORY: Right ankle pain and swelling since an injury yesterday. RIGHT ANKLE 3 VIEWS: [facility] João Driscoll MD - 01/10/2023 CLINICAL HISTORY: Right ankle pain and swelling since an injury yesterday. RIGHT ANKLE 3 VIEWS: IMPRESSION: FINDINGS/IMPRESSION: 1. Very small nondisplaced incomplete fracture is questioned in the distal tip of the right fibula, with mild surrounding soft tissue swelling. 2. No other fracture, malalignment, significant arthritis or acute bony abnormality is seen. [facility] Phone: Radiology Study observation (narrative) [facility] Phone: XR ANKLE RIGHT (MIN 3 VIEWS) Ordered By: João Amezquita on 01-10-2023 [facility] Phone: Ambulatory Visit Summaryon 0 12-08-2022 Ambulatory Visit Summary MEENA LUCERO :1995 Visit Date:12/08/2022 Ambulatory Visit Instructions Your Diagnosis Gastroenteritis due to [place]-like virus Obesity due to excess calories [...] to 60 minutes before meals Pickup at [facility] Unchanged multivitamin, ( Multivitamins with Vitamin B Complex, Vitamin C, Minerals and L-Methylfolate oral capsule) 1 Capsules By Mouth Every day Contact prescribing physician if questions or concerns Unchanged ondansetron (Zofran ODT 4 mg Tab-Dis) 1 Tablets By Mouth 3 times a day Contact prescribing physician if questions or concerns Pharmacy Information [facility]: [address], [place] [phone] Medications and Immunizations Administered Not Given influenza virus vaccine, inactivated, Postpone due to refusal SARS-CoV-2 mRNA (tozinameran 5y-11y) vac, Postpone due to refusal Allergies Percocet 5/325 (Hives, Rash) Vicodin (Hives) codeine (Hives, Rash) Problems Ongoing - Any problem that you are currently receiving treatment for. BMI 31.0-31.9,adult Gastroenteritis due to [place]-like virus Non-smoker Obesity due to excess [...] 1 years old. ? Live in a long-term. ? Travel on cruise ships. What are [...] immune system (more content not included)... Normal [facility] ED Note-Physicianon 12-08-19 ED Note-Physician [id number] #1.00CD:127 Normal [facility] Family Medicine Office/Clini c Noteon [...] for influenza and COVID. 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 Normal [facility] Comment on above: Result Comment: Elec tronically Signed By: SUSAN BENAVIDEZ, Keyon\.mariann\Date and Time Signed: 12/08/22 12:20 EST Patient [...] 1 years old. ? Live in a long-term. ? Travel on cruise ships. 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 ? Make sure that all people in your household wash their hands well and often. ? Take bftn-lrr-xtmxrac and prescription medicines only as told by [...] person (more content not included)... Normal [facility] COVID-19, Rapidon 12-04-2022 SARS-CoV-2 (COVID-19) RNA WADE+probe Ql (Unsp spec) Not detected Not Detected [facility] Comment on above: Rapid NAAT: [...] management decisions. Fact sheet for Healthcare Providers: https://www.fda.gov/media/749811/download Fact sheet for Patients: https://www.fda.gov/media/181660/download Methodology: Isothermal Nucleic Acid Amplification Specimen Description .NASOPHARYNGEAL SWAB [facility] Rapid influenza A/B antigens on 12-04-2022 Flu A Antigen Negative NEGATIVE [facility] Comment on above: for Influenza A Anti gen Flu B Antigen Negative NEGATIVE [facility] Comment on above: for Influenza B Anti gen. [facility] C Urineon 09-06-2022 Bacteria identified [...] Locations R1: This test was performed at: [facility], [address] [place] [address], [id number] [place] [address], Normal [facility] Comment on above: Performed By: #### 2 [id number] ####[facility] [id number] [place] [id number] Coding Summary.on 09-04-2022 Coding Summary. CD:[id number] Gh0bWw+PGhlYWQ+PE1FV ASkH08cuQVmuO8KN7mMD P0IIAROUOLFAZ5AFC0pf FV0ORvlQ6QyevFg RopbtWOpOF87ZXf2LDT2 pUhbOCdqqW4xsGNeR1a6 GnCpTB89zE40PTjbXPHh DtJ1LjZybqgpwGPt F3egYqScrURwRbf+PHRh YmxlIHdpZHRoPScxMDAl CsSbfSrhDH5wEo8pSEQj LWNvbGxhcHNlOiBj a5mmYZFxXKquNZ5zxNnl B8EclIP8AXZog3m1Xv23 dHI+VURpZKN3hDyqADty o713KbPru5iiAWL5 pAWhGRmoUAC1J79lx1H8 BXPqUNIbQJC0uRO1nT0g wBqbmpcmX0DxzAAoAlY4 UVN4wYKffG1dwOiv sgyscM5aLls+R50UPT6Q OTTOAT5OQdk9P3JiAyir dHI+UG41DTMoYK60lFHj tOFgp6yowSv0RiDz EXVgNKL1bKouUVdme0Mu TFYjH89rqSOuj1P2NMDw aGocbJNiJcRfcOA1oZ9l JXmukvsqh2uvmjiw Ezwhh7yshq99wY10N15e WVwrRGFsPJA3PTAzFJDl dAcdvc9viN4eLq9+IDxj f3miw5mvbHy7SnJh FWAdhuAlnOfvZFK4v3Td Hn12O5AbeKnpb6GxAtv1 mj18vCQjc8C6iSS2HYze VYAndM0xAEvxOxK8 CNIxTkLemZ89mSGkDPqt Pe8qrPsquXrtHU4aJVCt gqmjTVYviA7gRBTrfYJn bFrtSW0nPUZcvffx r468VzHaPEL5CKNfcUIp Q9RchU3jVmPtSNViNWQa J0BdqYHhLOblQ304PThd AtX5NJSwuoVqX9Xw HGAbbCovDxU0w2Y7Hn5L v0GmzdmcZRS4OXjfGMUc OsO2HcEgOyZ7X9DvNco1 LWIhtKfaYT7yK1Ip EGRkrmzxkeqgfBK6QVAy SMVycM30uPCkGYarOf6s u9W9m213WHNeSGQnlJ87 Fr5kcHwqXJLwhYGH uS9ayhfhp8pjptbpEiXf LSBwSCh2JWt8MHScaBbr GaAcVDM0AiA6WHW5yGFo oP2scEbqzmanzJ0i Oyc+U86zmC2pVLJ4XIH0 jzstMGManuMzBN66JS43 S7MdSebzvWEigLP+PGRp zcHhuPhdEA7fPlIe b4xuh9YbMPjtF8EqESYu HNwnXcn2GYFbCLM1dUW2 dH1iFGOlEMkir2W7iOF9 T2OxpsHcep0lc7xo QTEsOIbqU79loLHfm1Q3 GADuvDV7ZJWchTkdVfAv qM77Zie+YTTtzSidy8Hb Kneqb9she6kagEq1 IjMwJSIgdmFsaWduPSJ0 v8UbYx28Q13qBQhdFIFy PPZqNBTmCOYcuGgtyp2v iD3pMz2+PGNvbCB3 hZJ8tO9oTUBmNjV8AWug Y669UiWhyRZoVqtvu9da v8nvkZn3ToYgGRWkvkHq cMjzRBI1d7XlVb69 H29rFVhdQXNpQMKmBUMo FNPxmLlrxg6pnW2lXg0+ OS5ql6oicb18qC82vJL+ USWbQXF2wQjmZCnx DRYfaD7mRYnpZdM5PBFg UlEydT52rEGgHTmdSg8u gYeddCcgWU6pENPfijib r867FsVdz2cmMGRl uRDyXTvzAKC1R08wv5B5 ZVWsCEXbPLA7fRN7mT8w bGlnbjogbGVmdDsgdmVy aOjyNZszRPwrR530 IHRvcDsnPlBhdGllbnQg NtIxMRf7U9BxCpn2HZBc wVxdWV1ahGDeOWtzAx4b eQjggMouBN5hRAKy sphab193KvAoy7dhWMTf rFDqXFteAQA5G78ei5O1 NPElAHWfTLD2cQE6vZ1k bGlnbjogbGVmdDsg feHzeUexQVqbQPzfA968 IHRvcDsnPkJpcnRoIERh zXT3KL90LR61yZZnp9K7 rIO9C1NkCPTtycam dygnjFD4NSYoGMYnhS59 Za5erNivRs6kFWGmELB5 PZRneZZlL4VkkS1xEaKw ACWcSBYsS7HcrRXk XPikY319LUebSnQ0OIWl ngOaG9LiXVGanLymYnE3 h9D9Xt2PK9X8ED45KH60 jIFxo6O1bIT7F3Sj LSPfxldpeetsxNA1KEOp PUAaxY75Pv9kbJphPy2e LTRbIMB0OLRqgJOtU8Sm eJ8eNpBkUZZyJVZg F6GjjVUeUUjrP247VDgi EwF6EHRubkSyV2WmNLXy rVigGoD4d1A6Ub6GUHv1 EU62CH23bCKhb7M3 eEY6X2UlALOsbzzvbslk kYM4CPOmMJPcoI21Fc9h bZrbTz7zPPMfBOV1VSVd sCYaZ8VscR5gVyDu DCYpGLUuI4NabVLnUOqo F024YWmdCrI3JSUlyaTp L4OmUBAhfBcwYoS7j2C1 Bb5PFAZbIN82YXL0 fVO7VO66SL97C3EtXxbh dGFibGU+PHRhYmxlIHdp ZHRoPScxMDAlJyBzdHls HA5tJf2uSUDiLMOe kWbiwQVaRuTph4wtISTn HGzlGJ9yzDycH8VjvCW2 KTFak1g6Rv73U56eV2Sa dXA+XKPbxND6gUN3 oQ4uEzEwTvW0UXnnM784 MzZyiSIbDugfd4tib2yq kJf4JoA9OGEtvdVmnXad MNN7m0BfYs80X87e IHdpZHRoPSIxNSUiIHZh tOniua8dkM8nNf1+PGNv wHM3qCL7eL3yQoUmDaI6 FVjvN249MrEjbVQp Zhfzb2fiy2unvSm9CtKl YRVjqpYrdVyoBJA3n9Uw Jc68L4ImtNfak2IyFog0 ke05bNYqn0M1gXL2 M2ZkCKLbmwaqcNFvyYmv OO9uUDCnfuvsIHUsdA3w VOOnO1c6XjAvKjO0PUxi S0PfcdY0FECngQIx FEeeSBV0B59uf0D1UGAq YDDqNVE8xMN2eN4qeQoj bjogbGVmdDsgdmVydGlj HMfiZPysB881ARJp aZuaOAJjjL8kPOKzqDOp aRpyOG9hXEZytxldFuRJ Fo5VDWWoQBgJFCxUGD4n RTwvdGQ+PHRkIHN0 wHncTQcuXDGczC3sZWAg I8m4LyCoYjG5XTyhW7Ci KTXjlqgzEf99fP5rAgUp JyX2XPupM0LhwoA9 JNLzlSDeDLkdMRW6V83t w1T1BVIrHQNdSZM9pWT7 iD7vkAiwwkqktMHxuGnx dmVydGljYWwtYWxp R450KIBysFjcShVaBsQ9 KbF9RZL4H8BlPwo0GTNg rAuvZV9viGVkPNpbAa0l cOzihGkhZO2sUVNy idzxXJEtaM0wTTUtoREu iOgrPO5zTNLcavtuw419 DcJyLTU5YSHddVEmV9Xa aT0pOgDmQCBqTUZg C6BcnZMcKLswY312OEln BiI1XFUofyHrU1NrUPQj hXuaYgO7v3T5Ii6mHzZD ZWFyczwvdGQ+PHRk TIG3kFjtVLsoKLGwgE8i BWJdD7o6WhObZkR3ZNce E9HeHKNitijiWh48tL6h SsTtKpN4EReyG3Fv fdW3JAMobDNwDVdvBGE2 S92dh4V6JREeVVLqEAP0 aYY0uC7aqImbepiarAXn dDsgdmVydGljYWwt MTroB675AXEuzVmnYtJs bWFsZTwvdGQ+PHRkIHN0 xPlbUGthKMPxeP6fZDNo V6h9BnYvSlE9XNlp N7UfOYPfzokhDy49kK6d NqNjVrU7UBmkU6QvayI9 OCGokMHuUFipJOJ3G94k d3J8AZFxHGJkADT8 aCT6nW3yoFheujhrxNZs dDsgdmVydGljYWwtYWxp B618QCItmHhuCeGaPHMq KC2yaTfxzRM+PC90 qf00T9ZvTnztYcv3UQCf ZQX2xVO1eC0oGPZvRKwx l0Q9nES9B1KsiiOwtv9j d5zjJNXdWHxvM98f fMCga8J0MVVadYT3FSCj yAtsSoVxwJ20Whz+PGNv vAwhj3PnGchzj3irt1gi fFt7YxAkEEJhvoNl yTnmGJW1r9NnPa63R35f IHdpZHRoPSIzMCUiIHZh pFfawz2qbU9nGa9+PGNv oPX1dCD8rU2bWdPh CsC1HNdrU028ErKmaOWw Znmza9vaq6ytpUi9ObVt TKWgkwAztJnuVXJ8f2Nl Ja12G1IzuLbbm2Da Jgw6dk47mFNmb8N1fGD9 K6RtBUSfbsrxnFOuiSvs XV5oYWEkaxnjVOQteO8t MHKvK8e7JqGiMwD1 LYlfC1FzeoA6UBNhaGVv QKJlxNCVbT6ctyytp8pa ddprFaRtDJJeLTh4HMk6 LWFsaWduOiBsZWZ0 ZhS2BJU9oDTjbB0tnDue pglweR1pEey+GCp1i9kw dQSnGD0vfWC2UO28YR00 iVUbp4M5fMM4V1Nk EDUpjdfmbvlskWK0XQKb XVKdpU51Op5haNkfKc9k KGCuCGX1ITLfpTSyW5Ye wC5fVlPhHMZfEGHz L0KttWToLWjaG588YEem QaN3RTOmdtMaH9UqEIIp eYirMzK3n3S7Dq7NAX02 JV62BD60eBQks1T8 jPG7S3QvCPGfcpwxjjwj pWA7GWIbVIJgpM66Ws1b wIfyYh6cXAPgCGW0GXNs kWHpZ0LkbV9aDhPp OONcPEFgS5DjiHHfLEtm M685UZlwAzB5EMVdmmXs I8BkSYBmlJflBlS4o0K9 Ts8AZj00LQ78WO10 sLFnn5X5vDN0J6VnJEPq gieutnwrcVK4AETjDLOt vR09Ub0klYwnNt7fLFYv UZV2LXYxkUWuL2Iu gX7dGhOlEZCvVMIdG3Zu xCLiQRoaK026GUafIpX2 XBKzltOxH4DuTEWrvDqv QuN8k3N4Ua7IOKrm lft2I8XdXgtteEX+PC90 PODvTX56dZNcoBWbn8zh nUo3LrRjLIMhAUZ2uZvk UDbcq7FcXLNuH41l bGFw (more content not included)... Normal [facility] Consent for Treatmenton 08-22 Consent for Treatment [id number] #1.00CD:127 Normal [facility] Discharge Instructionson Discharge Instructions [id number] #1.00CD:127 Normal [facility] ED Clinical Summaryon 2021 ED Clinical Summary [place] [id number] ED Clinical Summary Person Information Name: MEENA LUCERO [facility]athri/[facility] Age: 26 Years : 1995 Sex: Female Language: Canadian PCP: Charli LOPEZ Marital Status: Single Visit [...] 09/03/2022 15:51:51 09/03/2022 15:51:51 09/03/2022 15:51:51 ADDRESS: [address] [place] [id number] PHYS DOC NOTES: MEDICAL INFORMATION: Prescriptions Given: New Medications [facility], [address] [place], [place] [id number], [phone] ondansetron (Zofran ODT 4 mg Tab-Dis) 1 Tablets By Mouth 3 times a day. Refills: 0. Medications to Continue with No Changes Other Medications multivitamin, ( Multivitamins with Vitamin B Complex, Vitamin C, Minerals and L-Methylfolate oral capsule) 1 Capsules By Mouth every day. Refills: 0. PATIENT EDUCATION INFORMATION: Instructions: Nausea and Vomiting, Adult Follow up: With: Address: When: [place] [address] Business (1) In 3 days 09/06/2022 DIAGNOSIS: Nausea & vomiting Normal [facility] ED Note-Physicianon 09-03-20 ED Note-Physician Basic [...] TID, # 15 tab(s), Refills(s) 0, Pharmacy: [facility], 170, cm, 09/03/22 14:31:00 EDT, Height/Length [...] CARLSON In 3 days 09/06/2022 EDT [address] [place] [address]- Business (1) Additional Instructions: Patient Education Nausea and Vomiting, Adult Attestation Patient seen and evaluated by the physician assistant professor of art. Attending physician was present in the emergency department and supervised care. This visit was performed by both the physician and an APC. I performed all aspects of the MDM as documented. This report was transcribed using voice recognition software. Every effort was made to ensure accuracy, however, inadvertently computerized blindstitch lining feller mistakes may be present. Appropriate healthcare PPE [...] (09/03/22 14:49:0 (more content not included)... Normal [facility] Comment on above: Result Comment: [...] added (diluted fruit juice). ? Eat bland, otcn-hf-uzthsh foods in small amounts as you are able. These foods include bananas, applesauce, rice, lean meats, toast, and crackers. ? Avoid fluids that contain a lot of sugar or caffeine, such as energy drinks, sports drinks, and soda. ? Avoid alcohol. ? Avoid spicy or fatty foods. General instructions ? Take erov-vxv-qkzxked and prescription medicines only as told by your health care provider. ? Drink enough fluid to keep your urine pale yellow. ? Wash your hands often using soap and water. If soap and water are not available, use hand button tufting machine operator. ? Make sure that all people [...] and drinking to prevent dehydration. ? Take petu-vsi-pxpxggm and prescription medicines only as told by [...] 11/08/2006 Document Revised: 03/01/2020 Document Reviewed: 04/18/2019 [employer] Patient Education ? 2019 [employer]. [facility] ED Patient Summaryon 022 ED Patient Summary [address] [address] Patient Discharge Instructions Person Information Name: MEENA LUCERO Age: 26 Years Arrival Date: 09/03/2022 14:27:10 Discharge Diagnosis: Nausea & vomiting Primary Care Physician: Charli LOPEZ Provider Information Primary Provider: Evan Moyer DO Advanced Composition Instructor:Neil Meza PA-C The exam and treatment you received in the Emergency Department were for an urgent problem and are not intended as complete care. It is important that you follow up with a doctor, nurse practitioner, or physician?s assistant professor of art for ongoing care. If your symptoms become worse or you do not improve as expected and you are unable to reach your usual health care provider, you should return to the Emergency Department. We are available 24 hours a day. MEENA LUCERO has been given the following list of patient education materials, prescriptions and follow-up instructions: Follow-up Instructions: With: Address: When: Charli CARLSON [address] [place] [id number] Business (1) In 3 days 09/06/2022 In the event that this physician does not participate in your insurance network, please consult with your insurance company to find a nearby participating provider. Patient Education Materials: Nausea and Vomiting, Adult A MESSAGE TO ALL PATIENTS REGARDING OPIOIDS PRESCRIPTION OPIOIDS: WHAT YOU NEED TO KNOW Prescription opioids can be used to help relieve zqmegmin-wf-suzjaj pain and are often prescribed following a [...] be struggling with addiction, tell your health urgent care technician and ask for guidance or call SAMHSA?S National Helpline at 4-174-184-HELP. v Source: Dep (more content not included)... Normal [facility] U BetaHcg Qualon 09-03-2022 HCG.beta subunit (U) [Moles/Vol] Negative Normal [facility] Comment on above: Performed By: #### 2 [id number], [id number], [id number] ####[facility] [address] [place] [address] UA With Cult Reflexon 2021 Bacteria LM Ql (Urine sed) 2+ /HPF Abnormal Trace [facility] Comment on above: Performed By: #### 2 [id number], [id number], [id number] ####[place] [address]57 Bilirubin Ql (U) Negative Normal Negative [facility] Comment on above: Performed By: #### 2 [id number], [id number], [id number] ####[place] [address] Clarity (U) CLEAR Normal Clear [facility] Comment on above: Performed By: #### 2 [id number], [id number], 9581559 ####[facility] [address] [place] [address] Color (U) YELLOW Normal Yellow [facility] Comment on above: Performed By: #### 2 [id number], [id number], 7995645 ####[address] [address] Epithelial cells.squamous LM.HPF (Urine sed) [#/Area] 5-8 Normal 0-2 [facility] Comment on above: Performed By: #### 2 [id number], [id number], 4892551 ####[facility] [address] [place] [address] Glucose Test strip (U) [Mass/Vol] Negative Normal Negative [facility] Comment on above: Performed By: #### 2 8428419, [id number], [id number] ####[facility] [address] [place] [address] Hemoglobin Ql (U) Negative Normal Negative [facility] Comment on above: Performed By: #### 2 3632123, 11007782, 4443990 ####[facility] [address] [place] [address] Ketones (U) [Mass/Vol] Negative Normal Negative [facility] Comment on above: Performed By: #### 2 8055385, [id number], 2825947 ####[facility] [address] [place] [address] West Line.plasma/Lit hium.RBC (Bld) [Mass ratio] 0-3 Normal 0-3 [facility] Comment on above: Performed By: #### 2 6054912, [id number], 0728445 ####[address] [address] Mucus Ql (Urine sed) 1+ Normal [facility] Comment on above: Performed By: #### 2 [id number], 30272737, 5168372 ####[address] [address] Nitrite Ql (U) Negative Normal Negative [facility] Comment on above: Performed By: #### 2 0922985, [id number], 4346176 ####[facility] [address] [place] [address] pH (U) 5.5 [pH] Invalid Interpretation Code 5.0-9.0 [facility] Comment on above: Performed By: #### 2 6034559, 72835789, 8756431 ####[facility] [address] [place] [address] Protein (U) [Mass/Vol] Negative Normal Negative [facility] Comment on above: Performed By: #### 2 1979467, 15778692, 6442445 ####[facility] [address] [place] [address] Specific gravity (U) [Rel density] >=1.030 Invalid Interpretation Code 1.005-1.030 [facility] Comment on above: Performed By: #### 2 [id number], [id number], [id number] ####[facility] [address] [place] [address] Type of Urine collection method Clean Catch Normal [facility] Comment on above: Performed By: #### 2 [id number], [id number], 0235812 ####[facility] [address] [place] [address] Urobilinogen Qn (U) 0.2 {Elver'U}/dL Normal 0.0-1.0 [facility] Comment on above: Performed By: #### 2 1069099, 23710572, 2636568 ####[facility] [address] [place] [address] WBC Auto Ql (U) Negative Normal Negative [facility] Comment on above: Performed By: #### 2 8519678, [id number], 4359187 ####[facility] [address] [place] [address] WBC LM.HPF (Urine sed) [#/Area] 0-5 Normal 0-5 [facility] Comment on above: Performed By: #### 2 0947949, 24702941, 9428862 ####[facility] [address] [place], [place] [address] XR WRIST LEFT (MIN 3 VIEWS)o n 06-19-2022 Normal left wrist. [facility] CONSOLIDATED EXAM: XR WRIST LEFT (MIN 3 VIEWS) HISTORY: M25.532. 26-year-old female, left wrist pain. COMPARISON: None. TECHNIQUE: Three views left wrist. FINDINGS: The radiocarpal joint and wrist are normal. Normal scapholunate distance. No erosion or chondrocalcinosis. [facility] CONSOLID[facility] Mauro Anton Jr., MD - 06/19/2022 EXAM: XR WRIST LEFT (MIN 3 VIEWS) HISTORY: M25.532. 26-year-old female, left wrist pain. COMPARISON: None. TECHNIQUE: Three views left wrist. FINDINGS: The radiocarpal joint and wrist are normal. Normal scapholunate distance. No erosion or chondrocalcinosis. IMPRESSION: Normal left wrist. 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 pain has been constant for about 1 week now. History of Present Illness Pt presents [facility]. Previous pt of [facility] in [place]. Concerned today about left wrist pain which started about 1 yr ago; pain has worsened over the last week. 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 Carries everything in her left hand. Right handed. Pain location: medial martinez hand, radiating to wrist Pain description: shooting Pain rated: 2/10, 7/10 with certain movements. 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 Negative Tinels and DeQuervians. + Phalens. Frame Trimmer strength equal. Neurologic: Cranial nerves II-XII grossly intact. Skin: [place], warm and dry. No rashes, ulcerations, or [...] day(s), # 30 tab(s), Refills(s) 1, Pharmacy: [facility], 170, cm, 06/01/22 12:55:00 EDT, Height/Length Dosing, 91.3, kg, 06/01/22 12:55:00 EDT, Weight Dosing [facility] External Ambulatory Referral 2. BMI 31.0-31.9,adult (Z68.31: Body mass index [BMI] 31.0-31.9, adult) The standard range for ages 18 and older is >=18.5 and < 25 kg/m2. Your BMI today was above this range, this falls in the obese category and there are medical benefits to weight loss. We can offer counselling, referral, and/or medical support in addressing this problem. Visit [employer] for useful information to help make better [...] unspecified fo (more content not included)... Normal [facility] Comment on above: Result Comment: Elec tronically Signed By: Siddhartha CRUZ, Meena Adame.mariann\Date and Time Signed: 06/01/22 13:16 EDT Patient [...] height. This can be done either in [place] (U.S.) or metric measurements. Note that charts are available to help you find your BMI quickly and easily without having to do these calculations yourself. To calculate your BMI in Canadian (U.S.) measurements, your health care provider will: [...] problems. ? BMI can be measured using Canadian measurements or metric measurements. ? To interpret [...] 07/20/2005 Document Revised: 10/21/2018 Document Reviewed: 09/21/2018 [employer] Patient Education ? 2020 [employer]. Orthopedics Carpal Tunnel Syndrome Carpal tunnel [...] Having a job, such as being a air conditioning unit assembler or a cashier office, that requires you to repeatedly move your [...] and midd (more content not included)... Normal [facility] Physician Referralon 022 Physician Referral [id number] #1.00CD:127 [facility] Vital Signs Date Time Vital Sign Value Performing Clinician Ayad lozoya 09-18-2024 11:15-0400 Body mass index (BMI) [Ratio] 35.2 kg/m2 Yulia Enriqueta DO Work Phone: [facility] 09-18-2024 11:15-0400 Body weight 95.94 kg Yulia Enriqueta DO Work Phone: [facility] 09-18-2024 11:15-0400 Diastolic blood pressure 74 mm[Hg] Yulia Enriqueta DO Work Phone: [facility] 09-18-2024 11:15-0400 Systolic blood pressure 122 mm[Hg] Yulia Enriqueta DO Work Phone: [facility] 01-10-2023 14:29-0500 Body height 165.1 cm Fei Canales MD Work Phone: [employer] 01-10-2023 14:29-0500 Body mass index (BMI) [Ratio] 34.35 kg/m2 Fei Canales MD Work Phone: [employer] 01-10-2023 14:29-0500 Body temperature 98.49 [degF] Fei Canales MD Work Phone: [employer] 01-10-2023 14:29-0500 Body weight 93.62 kg Fei Canales MD Work Phone: [employer] 01-10-2023 14:29-0500 Diastolic blood pressure 79 mm[Hg] Fei Canales MD Work Phone: [employer] 01-10-2023 14:29-0500 Heart rate 75 /min Fei Canales MD Work Phone: [employer] 01-10-2023 14:29-0500 Respiratory rate 16 /min Fei Canales MD Work Phone: [employer] 01-10-2023 14:29-0500 SaO2% (BldA) [Mass fraction] 99 % Fei Canales MD Work Phone: [facility] [employer] 01-10-2023 14:29-0500 Systolic blood pressure 140 mm[Hg] Fei Canales MD Work Phone: [facility] 12-08-2022 11:51-0500 Blood Pressure Location Keyon BROWN [facility] 12-08-2022 11:51-0500 Body temperature 98.24 [degF] Keyon BROWN [facility] 12-08-2022 11:51-0500 Diastolic blood pressure 78 mm[Hg] Keyon BROWN [facility] 12-08-2022 11:51-0500 Heart rate 84 /min Keyon BROWN [facility] 12-08-2022 11:51-0500 Respiratory rate 16 /min Keyon BROWN [facility] 12-08-2022 11:51-0500 SaO2% (BldA) [Mass fraction] 100 % Keyon BROWN [facility] 12-08-2022 11:51-0500 Systolic blood pressure 114 mm[Hg] Keyon BROWN [facility] 12-04-2022 16:32-0500 Body mass index (BMI) [Ratio] 33.66 kg/m2 Jason Tracy MD Work Phone: [facility] [employer] 12-04-2022 16:32-0500 Body temperature 98.49 [degF] Jason Tracy MD Work Phone: [facility] [employer] 12-04-2022 16:32-0500 Body weight 91.76 kg Jason Tracy MD Work Phone[facility] 12-04-2022 16:32-0500 Diastolic blood pressure 75 mm[Hg] Jason Tracy MD Work Phone[facility] 12-04-2022 16:32-0500 Heart rate 91 /min Jason Tracy MD Work Phone[facility] 12-04-2022 16:32-0500 Respiratory rate 16 /min Jason Tracy MD Work Phone: [facility] [employer] 12-04-2022 16:32-0500 SaO2% (BldA) [Mass fraction] 99 % Jason Tracy MD Work Phone: [facility] 12-04-2022 16:32-0500 Systolic blood pressure 123 mm[Hg] Jason Tracy MD Work Phone: [facility] 06-01-2022 12:50-0400 Blood Pressure Location Meena Carl [facility] 06-01-2022 12:50-0400 Body temperature 96.98 [degF] Meena Carl [facility] 06-01-2022 12:50-0400 Diastolic blood pressure 60 mm[Hg] Meena Carl [facility] 06-01-2022 12:50-0400 Heart rate 88 /min Meena Carl [facility] 06-01-2022 12:50-0400 SaO2% (BldA) [Mass fraction] 97 % Meena Carl [facility] 06-01-2022 12:50-0400 Systolic blood pressure 122 mm[Hg] Meena Carl [facility] 09-14-2021 10:15-0400 Body mass index (BMI) [Ratio] 31.62 kg/m2 Keyon Wilkinson MD Work Phone: [employer] Work Phone: 09-14-2021 10:15-0400 Body weight 86.18 kg Keyon Wilkinson MD Work Phone: [employer] Work Phone: 09-14-2021 10:14-0400 Body height 165.1 cm Keyon Wilkinson MD Work Phone: [employer] Work Phone: 09-14-2021 10:14-0400 Body temperature 98.2 [degF] Keyon Wilkinson MD Work Phone: [employer] Work Phone: 09-14-2021 10:14-0400 Diastolic blood pressure 93 mm[Hg] Keyon Wilkinson MD Work Phone: [employer] Work Phone: 09-14-2021 10:14-0400 Heart rate 91 /min Keyon Wilkinson MD Work Phone: [employer] Work Phone: 09-14-2021 10:14-0400 Respiratory rate 20 /min Keyon Wilkinson MD Work Phone: [employer] Work Phone: 09-14-2021 10:14-0400 SaO2% (BldA) [Mass fraction] 96 % Keyon Wilkinson MD Work Phone: [employer] Work Phone: 09-14-2021 10:14-0400 Systolic blood pressure 131 mm[Hg] Keyon Wilkinson MD Work Phone: [facility] Work Phone: Encounters Encounter Date Encounter Type Care Provider Facility Start: 10-12-2024 End: 10-12-[address] [facility] Start: 10-12-2024 End: 10-12-2024 Subsequent hospital visit by physician John Partida DO Work Phone: [facility] Comment on above: Arrived Start: 10-10-2024 End: 10-10-[address] [facility] Start: 10-10-2024 End: 10-10-2024 Subsequent hospital visit by physician John Partida DO Work Phone: [facility] Comment on above: Arrived Start: 10-04-2024 End: 10-04-2024 Subsequent hospital visit by physician John Partida DO Work Phone: [facility] Start: 10-04-2024 [facility] Start: 09-18-2024 End: 09-18-2024 Office outpatient visit 15 minutes Yulia Enriqueta DO Work Phone: [facility] Comment on above: First trimester preg wily; 11 weeks gestation of ; Encounter for sterilization education Start: 09-18-2024 End: 09-18-2024 ambulatory YULIA ENRIQUETA Not Available Start: 09-11-2024 End: 09-11-2024 [facility] Result Encounter Yulia Enriqueta DO Work Phone: [facility] External Department Unsolicited Start: 09-11-2024 End: 09-11-2024 [facility] Result Encounter Yulia Enriqueta DO Work Phone: [facility] External Department Unsolicited Start: 08-18-2024 End: 08-18-2024 ambulatory YULIA ENRIQUETA Not Available Start: 08-07-2024 End: 08-07-[address] [facility] Start: 08-07-2024 End: 08-07-2024 Subsequent hospital visit by physician Óscar Nassar DNP Work Phone: [facility] Start: 08-02-2024 End: 08-02-2024 ambulatory [facility] Start: 07-31-2024 End: 07-31-2024 ambulatory [facility] Start: 07-31-2024 End: 07-31-2024 Subsequent hospital visit by physician Óscar Nassar DNP Work Phone: [facility] Start: 07-29-2024 End: 07-29-2024 ambulatory [facility] Start: 07-27-2024 End: 07-27-2024 ambulatory [facility] Start: 07-27-2024 End: 07-27-2024 Subsequent hospital visit by physician John Partida DO Work Phone: [facility] Comment on above: Arrived Start: 07-25-2024 End: 07-25-[address] [facility] Start: 07-21-2024 End: 07-21-2024 ambulatory [facility] Start: 07-19-2024 End: 07-19-[address] [facility] Start: 07-13-2024 End: 07-13-2024 Subsequent hospital visit by physician John Partida DO Work Phone: [facility] Comment on above: Arrived Start: 07-13-2024 End: 07-13-2024 ambulatory [facility] Start: 07-06-2024 End: 07-06-2024 Subsequent hospital visit by physician John Partdia DO Work Phone: [facility] Start: 06-29-2024 End: 06-29-2024 ambulatory [facility] Start: 06-29-2024 End: 06-29-2024 Subsequent hospital visit by physician Johnyifan Partida DO Work Phone: [facility] Comment on above: Arrived Start: 06-26-2024 End: 06-26-2024 ambulatory [facility] Start: 06-22-2024 End: 06-22-2024 ambulatory [facility] Start: 06-20-2024 End: 06-20-2024 ambulatory [facility] Start: 06-16-2024 End: 06-16-2024 ambulatory [facility] Start: 06-14-2024 End: 06-14-2024 ambulatory [facility] Start: 06-08-2024 End: 06-08-2024 ambulatory [facility] Start: 06-08-2024 End: 06-08-2024 ambulatory [facility] Start: 05-22-2024 End: 05-24-2024 ambulatory [facility] Start: 05-22-2024 End: 05-24-2024 Subsequent hospital visit by physician Óscar Nassar DNP Work Phone: [facility] Start: 03-06-2024 End: 03-06-2024 ambulatory YULIA ENRIQUETA Not Available Start: 03-04-2024 End: 03-04-2024 ambulatory [facility] Start: 03-04-2024 Emergency department patient visit [facility] Start: 12-08-2023 End: 12-08-2023 ambulatory YULIA ENRIQUETA Not Available Start: 10-25-2023 End: 10-25-2023 ambulatory YULIA ENRIQUETA Not Available Start: 10-18-2023 End: 10-18-2023 ambulatory YULIA ENRIQUETA Not Available Start: 10-07-2023 End: 10-07-2023 ambulatory YULIA ENRIQUETA Not Available Start: 04-09-[address] NONE LISTED REQUEST Facility: Start: 01-29-2023 End: 01-31-2023 Subsequent hospital visit by physician Neeru Additional Xray At [facility] Comment on above: Other closed fractur e of proximal end of right fibula with routine healing, subsequent encounter Start: 01-29-2023 End: 01-31-2023 Subsequent hospital visit by physician Keyon Brown MD Work Phone: [facility] Start: 01-10-2023 End: 01-10-2023 Emergency department patient visit Fei Canales MD Work Phone: [facility] ED Comment on above: Injury of right ankl e, initial encounter (Primary Dx) Start: 12-08-2022 End: 12-09-2022 ambulatory Keyon BROWN Facility:[facility] Start: 12-08-2022 End: 12-08-2022 Patient encounter procedure Keyon BROWN [facility] [place] Start: 12-04-2022 End: 12-04-2022 Emergency department patient visit Jason Tracy MD Work Phone: [facility] ED Comment on above: Viral illness (Prima ry Dx) Start: 09-03-2022 End: 09-03-2022 Emergency department patient visit Evan Moyer Facility:[facility] Start: 06-19-2022 End: 06-21-2022 Subsequent hospital visit by physician Betito Additional Xray At [facility] Comment on above: Left wrist pain Start: 06-01-2022 End: 06-02-2022 ambulatory ANTHONY Carl Facility:[facility] Start: 06-01-2022 End: 06-01-2022 Patient encounter procedure Meena Carl [facility] Start: 05-28-2022 ambulatory ANTHONY Carl Faci lity:[facility] Start: 09-14-2021 End: 09-14-2021 Emergency department patient visit Keyon Wilkinson MD Work Phone: [facility] ED Comment on above: Subacute bronchitis (Primary Dx) Procedures Date Procedure Procedure Detail Performing Clinician Start: 09-18-2024 Urnls dip stick/tabl et rgnt non-auto w/o micrscp Yulia Robison DO Work Phone: Start: 09-11-2024 BOX TEST Yulia barone DO Work Phone: Start: 08-07-2024 Gonadotropin chorion ic quantitative Yulia [...] Treatment Date Care Activity Detail Author Start: 2069 Respiratory Syncytia l Virus (RSV) or age 60 yrs+ (1 - 1-dose 75+ series) Respiratory Syncytial Virus (RSV) or age 60 yrs+ (1 - 1-dose 75+ series) [facility] [employer] Start: 2054 Respiratory Syncytia l Virus (RSV) or age 60 yrs+ (1 - 1-dose 60+ series) Respiratory Syncytial Virus (RSV) or age 60 yrs+ (1 - 1-dose 60+ series) [employer] Start: 03-14-2025 Depression Screen Depression Screen [facility] Start: 10-17-2024 End: 10-17-2024 Patient encounter procedure 10/17/2024 10:50 AM EST Routine [facility] [address] [place] [address] Yulia Robison DO [address] [place] [address] [facility] Start: 10-17-2024 End: 10-17-2024 Patient encounter procedure 10/17/2024 8:15 AM EST Appointment [facility] [address] [place] [address] John Partida, DO [address] [place] [address] Trinity Browning 16 of 30 Sacral Pain, [facility] Comment on above: 16 of 30 Sacral Pain , Start: 10-12-2024 End: 10-12-2024 Patient encounter procedure 10/12/2024 8:00 AM EST Appointment [facility] [address] [place] [address] John Partida, DO [address] [place] [address] Clara Castrejon, PT 15 of 30 Sacral Pain, [facility] Comment on above: 15 of 30 Sacral Pain , Start: 10-10-2024 End: 10-10-2024 Patient encounter procedure 10/10/2024 9:30 AM EST Appointment [facility] [address] [place] [address] John Partida, DO [address] [place] [address] Clara Castrejon, PT 14 of 30 Sacral Pain, [facility] Comment on above: 14 of 30 Sacral Pain , Start: 09-18-2024 End: 09-18-2024 Patient encounter procedure 09/18/2024 10:40 AM EDT Routine [facility] [address] [place] [id number] Yulia Robison, DO [address] [place] [address] [facility] Start: 07-23-2024 COVID-19 Vaccine ( season) COVID-19 Vaccine ( season) [facility] Start: 07-23-2024 Influenza vaccination Influenza Vacc ine (#1) [facility] Start: 07-19-2024 End: 07-19-2024 Patient encounter procedure 07/19/2024 8:00 AM EDT Appointment [facility] [address] [place] [address] John Partida, DO [address] [place] [address] Claudia Mix, PT [address] [place] [address] [facility] Start: 07-13-2024 End: 07-13-2024 Patient encounter procedure [facility] Start: 07-06-2024 End: 07-06-2024 Patient encounter procedure 07/06/2024 9:00 AM EDT Appointment [facility] [address] [place] [address] John Partida, DO [address] [place] [address] Claudia Mix, PT [address] [place] [address] [facility] Start: 06-22-2024 Influenza vaccination Flu vaccine (# 1) [facility] Start: 07-23-2023 COVID-19 Vaccine ( season) COVID-19 Vaccine ( season) [facility] Start: 07-23-2022 Influenza vaccination Flu vaccine (# 1) [facility] Start: 06-22-2022 Influenza vaccination Flu vaccine (# 1) [facility] Start: 07-23-2021 Influenza vaccination Flu vaccine (# [facility]) [facility] Start: 08-02-2017 DTaP/Tdap/Td vaccine (2 - Td or Tdap) DTaP/Tdap/Td vaccine (2 - Td or Tdap) [facility] Start: 2015 Screening for malign ant neoplasm of cervix Pap smear [facility] Start: 2013 DTaP/Tdap/Td vaccine (1 - Tdap) DTaP/Tdap/Td vaccine (1 - Tdap) [facility]: Start: 2013 Hepatitis B vaccine (1 of 3 - 19+ 3-dose series) Hepatitis B vaccine (1 of 3 - 19+ 3-dose series) [facility] Start: 2012 Hepatitis C screening Hepatitis C sc reen [facility] Start: 2009 HIV screening HIV screen [facility] Start: 2006 COVID-19 Vaccine (1) COVID-19 Vaccin e (1) [facility]: Start: 2006 Depression Screen Depression Screen [facility] Start: 2005 HPV vaccine (1 - 2-d ose series) HPV vaccine (1 - 2-dose series) [facility] [employer] Phone: Start: 1998 Varicella vaccine (2 of 2 - 2-dose childhood series) Varicella vaccine (2 of 2 - 2-dose childhood series) [facility] Start: 1995 Varicella vaccine (1 of 2 - 2-dose childhood series) Varicella vaccine (1 of 2 - 2-dose childhood series) [facility]: Start: 05-30-1995 COVID-19 Vaccine (#1) COVID-19 Vacci ne (#1) [facility] Start: 1994 Hepatitis B vaccine (1 of 3 - 3-dose series) Hepatitis B vaccine (1 of 3 - 3-dose series) [facility] Start: 1994 Hepatitis C screening Hepatitis C [facility] Work Phone: Immunizations Immunization Date Immunization Notes Care Provider Fa zelalem 02-16-2008 Hep A, unspecified formulation Meena Carl [facility] 08-02-2007 Hep A, unspecified formulation Meena Carl [facility] 08-02-2007 meningococcal ACWY vaccine, unspecified formulation Meena Carl [facility] 08-02-2007 tetanus toxoid, reduced diphtheria toxoid, and acellular pertussis vaccine, adsorbed Meena Carl [facility] 08-19-2000 DTaP, unspecified formulation Meena Siddhartha [facility] 08-19-2000 measles, mumps and rubella virus vaccine Meena Carl [facility] 10-10-1997 varicella virus vaccine Meenazachariah Aguilarell [facility] 03-09-1996 DTaP, unspecified formulation Meena Carl [facility] 03-09-1996 Hib, unspecified formulation Meena Carl [facility] 03-09-1996 measles, mumps and rubella virus vaccine Meena Carl [facility] 06-11-1995 DTP-Hib Meena Carl [facility] 06-11-1995 hepatitis B vaccine, pediatric or pediatric/adolescent dosage Meena Carl [facility] 04-05-1995 DTP-Hib Meena Carl [facility] 02-01-1995 DTP-Hib Meena Carl [facility] 01-04-1995 hepatitis B vaccine, pediatric or pediatric/adolescent dosage Meena Carl [facility] 1994 hepatitis B vaccine, pediatric or pediatric/adolescent dosage Meena Carl [facility] NEGATED: Highlighted row has not occurred!12-08-2022 influenza virus vaccine, unspecified formulation Keyon BROWN [facility] NEGATED: Highlighted row has not occurred!12-08-2022 SARS-CoV-2 mRNA (tozinameran 5y-11y) vaccine Keyon BROWN [facility] Payers Date Payer Category Payer Private Health Insurance [facility] MEDICAID [id number] 2014 Unknown [id number] 1.2.840.568484.1.13.239.2. 7.3.439725.315 1994 Unknown [id number] 2.16.840.1.765785.3.579.2. 727 1994 Unknown [id number] 2.16.840.1.693165.3.579.2. 727 1994 Unknown [id number] 2.16.840.1.005989.3.579.2. 727 1994 Unknown [id number] 2.16.840.1.642413.3.579.2. 7 1994 Unknown [id number] 2.16.840.1.112668.3.579.2. 593 1994 Unknown [id number] 2.16.840.1.471552.3.579.2. 1259 1994 Unknown [id number] 2.16.840.1.107248.3.579.2. 9 1994 Unknown [id number] 2.16.840.1.815461.3.579.2. 9 1994 Unknown [id number] 2.16.840.1.084222.3.579.2. 9 1994 Unknown [id number] 2.16.840.1.953508.3.579.2. 9 1994 Unknown [id number] 2.16.840.1.670222.3.579.2. 1259 1994 Unknown [id number] 2.16.840.1.965464.3.579.2. 1259 1994 Unknown [id number] 2.16.840.1.030931.3.579.2. 174 1994 Unknown [id number] 2.16.840.1.363552.3.579.2. 174 1994 Unknown [id number] 2.16.840.1.744177.3.579.2. 174 1994 Unknown [id number] 2.16.840.1.205365.3.579.2. 174 1994 Unknown [id number] 2.16.840.1.003184.3.579.2. 174 1994 Unknown [id number] 2.16.840.1.070461.3.579.2. 174 1994 Unknown [id number] 2.16.840.1.020628.3.579.2. 174 1994 Unknown [id number] 2.16.840.1.795285.3.579.2. 174 1994 Unknown [id number] 2.16.840.1.290132.3.579.2. 174 1994 Unknown [id number] 2.16.840.1.044362.3.579.2. 174 1994 Unknown [id number] 2.16.840.1.690185.3.579.2. 174 1994 Unknown [id number] 2.16.840.1.585519.3.579.2. 174 1994 Unknown [id number] 2.16.840.1.769454.3.579.2. 174 1994 Unknown [id number] 2.16.840.1.818402.3.579.2. 174 1994 Unknown [id number] 2.16.840.1.201737.3.579.2. 174 1994 Unknown [id number] 2.16.840.1.421743.3.579.2. 174 1994 Unknown [id number] 2.16.840.1.098844.3.579.2. 174 1994 Unknown [id number] 2.16.840.1.863958.3.579.2. 174 1994 Unknown [id number] 2.16.840.1.616031.3.579.2. 174 1994 Unknown [id number] 2.16.840.1.215353.3.579.2. 174 1994 Unknown [id number] 2.16.840.1.723868.3.579.2. 174 1994 Unknown [id number] 2.16.840.1.636110.3.579.2. 174 1994 Unknown [id number] 2.16.840.1.820892.3.579.2. 174 1994 Unknown [id number] 2.16.840.1.972739.3.579.2. 174 1994 Unknown [id number] 2.16.840.1.689677.3.579.2. 174 1994 Unknown [id number] 2.16.840.1.168515.3.579.2. 174 1994 Unknown [id number] 2.16.840.1.094232.3.579.2. 174 1959 Unknown [id number] 1.2.840.679539.1.13.239.2. 7.3.668031.315 Social History Date Type Detail Facility Start: 09-14-2021 End: 03-14-2024 Tobacco smoking status [facility] Never smoker [employer] Phone: Start: 09-14-2021 End: 03-14-2024 Tobacco use and exposure Never used [employer] Start: 09-14-2021 End: 08-21-2024 Alcohol intake Current non-drinker of alcohol (finding) [employer] Work Phone: Start: 1995 Sex Assigned At Not on file [employer] Work Phone: Start: 11-24-2022 End: 01-10-2023 Exposure to SARS-CoV-2 (event) Not sure [facility] [employer] Tobacco smoking status Never [facility] Start: 07-19-2023 End: 03-14-2024 Sex Assigned At Female [facility] Start: 12-04-2022 End: 01-10-2023 History SDOH Alcohol Frequency 1 [employer] Work Phone: Start: 07-19-2023 End: 03-14-2024 History of Social function [employer] How often to you hav e a drink containing alcohol? Never [employer] (I/We) worried artemio er (my/our) food would run out before (I/we) got money to buy more. Never true [employer] At any time in the p ast 12 months, were you homeless or living in senior care [including now]? No [employer] Start: 1995 Sex Assigned At Female [employer] Start: 07-19-2023 Gender identity Identifies as female gender (finding) [employer] Start: 07-19-2023 Sexual orientation Heterosexual (finding) [employer] Start: 07-16-2024 [facility] Start: 09-18-2024 Alcoholic beverage intake Lifetime non-drinker (finding) [facility] Functional Status Date Assessment Result Facility 12-08-2022 Functional Status N/A [facility] [place] 06-01-2022 Functional Status N/A [facility] Clinical Notes 06-01-2022 to 10-12-2024 Clara Castrejon, PT - 10/12/2024 8:00 AM Trinity Posey - 10/04/2024 9:30 AM Bob Cordova LPN - 09/18/2024 10:40 AM Onel Merrill PT - 07/27/2024 9:15 AM EDTDishallerge Instructions Note Date & Type Note Facility 10-12-2024 History of Present illness Narrative Images from the original note were not included. [facility] Daily Note Date: 10/12/2024 Patient Name: Meena Lucero : 1995 (28 y.o.) Referring Provider (secondary): Dr. Partida Diagnosis: R buttock pain, sacral pain Treatment Diagnosis: back pain, SI pain Onset Date: 09/28/24 (Referral) PT [facility] Total # of Visits Approved: 16 Per Physician Order Total # of Visits to Date: 2 Plan of Care/Certification Expiration Date: 12/08/24 Pre-Treatment Pain: 5/10 Assessment Assessment: Pain 5/10 in low back Nad R buttock, mild limp this date. Patient completed therex and manual therapy per Doc flow. Reviewed HEP,patient repots compliance. Discussed SI belt, patient plans to order it this weekend. Cntinue per plan. Plan Continue with current plan of care Exercises/Modalities/Manual: See DocFlow Sheet Education: On ex form, review of HEP Goals (Total # of Visits to Date: 2) Short Term Goals Time Frame for Short Term Goals: 8 Short Term Goal 1: Patient to be educated on and independent with HEP safe ex during pregnacy Short Term Goal 2: Patient to be educated on and use SI belt to decrease pain during Short Term Goal 3: Increase strength R hip abd 4+/5 for improved pelvic stability Academic Associate Goals Time Frame for Academic Associate Goals : 16 [facility] Goal 1: Improve functional mobility with Oswestry score <15/50 (from 50) [facility] Goal 2: Decrease R SI pain 4/10 at worst x3 days Post Treatment Pain: 4/10 Time In: 8:00 Time Out : 8:33 Timed Code Treatment Minutes: 33 Minutes Total Treatment Time: 33 Minutes Clara Castrejon, PT Date: 10/12/2024 documented in this encounter [facility] 10-04-2024 History of Present illness Narrative Physical Therapy [facility] Date: 10/04/2024 Patient Name: Meena Lucero : 1995 Pt Cancelled Appt due to therapist ill Trinity Harris Date: 10/04/2024 documented in this encounter [facility] 09-18-2024 History of Present illness Narrative Reason for Appointment: Patient ID: Meena Lucero is a 28 y.o. female who presents for Routine Visit Patient presents today for Return OB appointment. MEDICATIONS Current Outpatient Medications Medication Instructions 27-1 MG tablet Every 24 hours MV-Min-Fe Fum-FA-DHA ( 1 PO) Oral promethazine (PHENERGAN) 12.5 mg, Oral, Every 6 hours PRN ALLERGIES Allergies Allergen Reactions Hydrocodone Elk Oil Hives Codeine Rash and Unknown Chest and back pain Hydrocodone-Acetaminophen Unknown and Rash Oxycodone-Acetaminophen Rash and Unknown PROBLEMS Active Ambulatory Problems Diagnosis Date Noted No Active Ambulatory Problems Resolved Ambulatory Problems Diagnosis Date Noted No Resolved Ambulatory Problems Past Medical History: Diagnosis Date Bronchitis HISTORY PAST MEDICAL HISTORY SOCIAL HISTORY Past Medical History: Diagnosis Date Bronchitis Social History Tobacco Use Smoking status: Never Smokeless tobacco: Never Substance Use Topics Alcohol use: Never Drug use: Never FAMILY HISTORY Family History Problem Relation Name Age of Onset Narcolepsy Mother No Known Problems Son Breast cancer Maternal Grandmother Grandma Cancer Maternal Grandmother Grandma Diabetes Maternal Grandmother Grandma SURGICAL HISTORY Past Surgical History: Procedure Laterality Date CHOLECYSTECTOMY TONSILLECTOMY REVIEW OF SYSTEMS Review of Systems: Review of Systems All other systems reviewed and are negative. OBJECTIVE Objective: Physical Exam Constitutional: Appearance: Normal appearance. She is well-developed. Cardiovascular: Rate and Rhythm: Normal rate and regular rhythm. Pulmonary: Effort: Pulmonary effort is normal. Breath sounds: Normal breath sounds. Abdominal: General: Bowel sounds are normal. There is no distension. Palpations: Abdomen is soft. Tenderness: There is no abdominal tenderness. There is no guarding or rebound. Musculoskeletal: General: No swelling. Normal range of motion. Right lower leg: No edema. Left lower leg: No edema. Neurological: Mental Status: She is alert and oriented to person, place, and time. Skin: General: Skin is warm and dry. Psychiatric: Mood and Affect: Mood normal. Behavior: Behavior normal. Vitals and nursing note reviewed. Exam conducted with a collection officer present. Vitals: Estimated body mass index is 35.2 kg/m as calculated from the following: Height as of 04/09/23: 5' 5 . Weight as of this encounter: 211 lb 8 oz. BP: 122/74 Patient's last menstrual period was 06/23/2024. ASSESSMENT & PLAN ICD-10-CM 1. First trimester Z34.91 POCT urinalysis dipstick manually resulted 2. 11 weeks gestation of Z3A.11 New OB: Patient presents today for 1st time obstetrics appointment with provider. Patient is currently 11w1d . Patients history has been reviewed in great detail including any potential risks. Patient stated she currently has no complaints. Expectations throughout regarding labs, ultrasounds, and appointments have been discussed with the patient in detail. It was reiterated that the patient is to drink 6-8 glasses of water a day, eat 6 small meals a day, do not consume raw or undercooked meat, and stay away from [facility]. Patient has been consulted regarding any further do's and don'ts of . Patient voiced understanding and all questions and concerns were answered. Patient voiced that she desires to have permanent sterilization after delivery. Patient aware that surgical procedure could be setup 7 weeks post appointment and if patient has to have a she would desire to have sterilization at time of delivery. Patient voiced that her PCP she should put in for disability due to to back pain. Patient has started process and for disability & office may receive paperwork in regards to increase in pain during . Orders Placed This Encounter Procedures POCT urinalysis dipstick manually resulted Follow Up: Patient is to return in 4 weeks for routine OB appointment. Documented by Bre Cordova LPN on behalf of: Yulia Robison DO documented in this encounter [facility] 07-27-2024 History of Present illness Narrative Images from the original note were not included. [facility] Daily Note Date: 07/27/2024 Patient Name: Meena Lucero : 1995 (28 y.o.) Referring Provider (secondary): Dr. Partida Diagnosis: Sacral pain Treatment Diagnosis: SI pain Onset Date: 05/29/24 PT Insurance Information: [facility] Total # of Visits Approved: 16 [...] Goals Short Term Goal 1: STG= LTG Academic Associate Goals Time Frame for [facility] Goals : 16 visits Academic Associate Goal 1: Decrease subjective SI/right gluteal pain to <3/10 with activity and transitional movements Post Treatment Pain: 5/10 Time In: 0910 Time Out : 0935 Timed Code Treatment Minutes: 25 Minutes Total Treatment Time: 25 Minutes Onel Brown, PT Date: 07/27/2024 documented in this encounter [facility] 07-06-2024 History of Present illness Narrative Images from the original note were not included. [facility] Daily Note Date: 07/06/2024 [...] strengthening for self-correction of pelvic asymetry- MET Academic Associate Goals Time Frame for Academic Associate Goals : 10 visits Academic Associate Goal 1: Decrease subjective SI/right gluteal pain to <3/10 with activity and transitional movements [facility] Goal 2: Upgrade HEP for pelvic stab ex Academic Associate Goal 3: Maintain symetrical pelvic alignment for 5 consecutive days Post Treatment Pain: 4/10 Time In: 0910 Time Out : 0945 Timed Code Treatment Minutes: 35 Minutes Total Time: 35 Minutes CLAUDIA MIX PT Date: 07/06/2024 documented in this encounter [facility] 06-29-2024 History of Present illness Narrative Images from the original note were not included. [facility] Daily Note Date: 06/29/2024 [...] strengthening for self-correction of pelvic asymetry- MET [facility] Goals Time Frame for [facility] Goals : 10 visits [facility] Goal 1: Decrease subjective SI/right gluteal pain to <3/10 with activity and transitional movements Academic Associate Goal 2: Upgrade HEP for pelvic stab ex Academic Associate Goal 3: Maintain symetrical pelvic alignment for 5 consecutive days Post Treatment Pain: 2-3/10 Time In: 0915 Time Out : 0955 Timed Code Treatment Minutes: 35 Minutes Total Time: 40 Minutes CLAUDIA MIX PT Date: 06/29/2024 documented in this encounter [facility] 01-10-2023 Hospital Discharge instructions Fei Canales MD - 01/10/2023 3:17 PM EST There was a possible concern for fracture of the fibula. Please follow-up with Dr. Rehman for further evaluation and be sure to use crutches and be nonweightbearing until then. The following attachments cannot be sent through Care Everywhere.Ankle Sprain (Canadian)documented in this encounter [facility] LO[facility]ANO [employer] Work Phone: 12-08-2022 Hospital Discharge instructions Patient Education 12/08/2022 09:52:19 Viral Gastroenteritis, [...] than 2 years old. Live in a long-term. Travel on cruise ships. What are the [...] and water are not available, use hand button tufting machine operator. Make sure that all people in your household wash their hands well and often. Take [id number] and prescription medicines only as told by [...] and water are not available, use hand button tufting machine operator. This information is not intended to replace advice given to you by your health care provider. Make sure you discuss any questions you have with your health care provider. Document Released: 11/08/2006 Document Revised: 04/26/2020 Document Reviewed: 09/13/2019 [employer] Patient Education 2020 [employer]. Follow Up Care 12/08/2022 09:17:52 With:Keyon BROWN MD, FAM Address: When: only if needed [facility] [place] 12-04-2022 Hospital Discharge instructions Jason Tracy MD - 12/04/2022 4:33 PM EST Increase fluids at home. Take Zofran for any nausea. Try Imodium/loperamide for diarrhea. Call primary care doctor for close follow-up. Use Tylenol or Motrin to keep fever down. The following attachments cannot be sent through Care Everywhere.Viral Infections (Canadian)documented in this encounter [facility] Work Phone: 06-01-2022 Hospital Discharge instructions Patient Education 06/01/2022 13:15:41 BMI for [...] height. This can be done either in [place] ([place] or metric measurements. Note that charts are available to help you find your BMI quickly and easily without having to do these calculations yourself. To calculate your BMI in [place] ([place] measurements, your health care provider will: [...] medical problems. BMI can be measured using Canadian measurements or metric measurements. To interpret your [...] 07/20/2005 Document Revised: 10/21/2018 Document Reviewed: 09/21/2018 [employer] Patient Education 2020 [employer]. 06/01/2022 13:15:39 Carpal Tunnel Syndrome Carpal [...] Having a job, such as being a air conditioning unit assembler or a cashier office, that requires you to repeatedly move your [...] 3 times per day. General instructions Take [id number] and prescription medicines only as told by [...] 11/05/2001 Document Revised: 03/17/2019 Document Reviewed: 03/17/2019 [employer] Patient Education [employer]. Follow Up Care 05/28/2022 08:22:05 With:Meena Carl CNP Address: When: only if needed [facility] Evaluation + Plan note [facility] Evaluation note Diagnosis Subacute bronchitis- Primary Acute bronchitis documented in this encounter [facility] Phone: evaluation note* Diagnosis Left wrist pain Pain in joint, forearm documented in this encounter [facility] Phone: evaluation note* Diagnosis Viral illness- Primary Unspecified viral infection, in conditions classified elsewhere and of unspecified site documented in this encounter [facility] Phone: evaluation note* Diagnosis Injury of right ankle, initial encounter- Primary documented in this encounter [facility] Phone: evaluation note* Diagnosis Other closed fracture of proximal end of right fibula with routine healing, subsequent encounter documented in this encounter [facility] Phone: evaluation note* Diagnosis First trimester state, incidental 11 weeks gestation of Encounter for sterilization education [facility] Narrative No data available for this section [facility] Hospital Discharge instructions* Attachments The following attachments cannot be sent through Care Everywhere. 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 ACP-Advance Directive ACP-Power of Freight Service Inspector Summary Purpose Family History No Family History [...] has ankle pain to the right ankle Reason Comments Routine Visit Ordered Prescriptions (unrec ognized section and content) [...] Care Team (unrecognized sect ion and content) City Distribution Clerk Relationship Specialty Start Date End Date Keyon Brown MD [facility] [place] [place] [address] PCP - General Family Medicine 12/04/22 City Distribution Clerk Relationship Specialty Start Date End Date Keyon Brown MD [address] [place] [place] [address] PCP - General Family Medicine 12/04/22 City Distribution Clerk Relationship Specialty Start Date End Date Keyon Brown MD [address] [place] [address] [place] [address] PCP - General Family Medicine 12/04/22 City Distribution Clerk Relationship Specialty Start Date End Date Óscar Nassar DNP [address] [place] [address] PCP - General Family Nurse Practitioner 03/14/24 City Distribution Clerk Relationship Specialty Start Date End Date Óscar Nassar DNP [address] [place] [address] PCP - General Family Nurse Practitioner 03/14/24 City Distribution Clerk Relationship Specialty Start Date End Date Óscar Nassar DNP [address] [place] [address] PCP - General Family Nurse Practitioner 03/14/24 City Distribution Clerk Relationship Specialty Start Date End Date Óscar Nassar DNP [address] [place] [address] PCP - General Family Nurse Practitioner 03/14/24 City Distribution Clerk Relationship Specialty Start Date End Date Keyon Brown MD [address] [place] [address] [place] [address] PCP - General 05/12/23 Yulia Robison DO [address] [place] [address] [place] [address] PCP - [facility] 02/21/24 City Distribution Clerk Relationship Specialty Start Date End Date Keyon Brown MD [address] [place] [address] [place] [address] PCP - General 05/12/23 Yulia Robison DO [address] [place] [address] [place] [address] PCP - [facility] 02/21/24 City Distribution Clerk Relationship Specialty Start Date End Date Óscar Nassar DNP [address] [place] [address] PCP - General Family Nurse Practitioner 03/14/24 INFORMATION SOURCE (unrecogn ized section and content) DATE CREATED AUTHOR 02/01/2023 [place] [facility] DATE CREATED AUTHOR AUTHOR'S ORGANIZ ATION 04/01/2023 [facility] p[facility] DATE CREATED AUTHOR AUTHOR'S ORGANIZ ATION 09/19/2024 [facility] DATE CREATED AUTHOR AUTHOR'S ORGANIZ ATION 10/16/2024 Kirsty charles FOR RECORDS PERTAINING TO PATIENTS [...] BE BASED ON THE PRIMARY CLINICAL RECORDS. [employer] provides no warranty or guarantee of the accuracy or completeness of information in this document.
== END 2024-10-17 19:38 | disposition home or self-care (01) ==
LOC: LAB 19:37
PROVIDERS: Visit Provider Obstetrics & Gynecology
DX: Z01.419 Encounter for gynecological examination (general) (routine) without abnormal findings (principal)
CPT/HCPCS: 88175

== ENCOUNTER 2024-11-20 07:48 | Outpatient (OUT) | payer OTHER, SELFPAY ==
--- NOTE | 2024-11-20 07:50 | US_ITS ---
[address] [address] Patient Name: RUEL READ MRN: [id number] date: 1995 Sex: F Assigned Patient Location: US Current Patient Location: US Accession/Order Number: [id number] Exam Date: 11/20/2024 07:55 Report Date: 11/20/2024 14:08 At the request of: YULIA ESTES Procedure: US OB anatomy EXAMINATION: US OB anatomy, US OB cervical length HISTORY: Anatomy Scan Second Trimester COMPARISON: No relevant comparison available. TECHNIQUE: Transabdominal sonographic examination was performed for obstetrical and evaluation. FINDINGS: Number: 1 Heart Rate: 148.35 bpm H.B. /min Amniotic Fluid Volume: Subjectively normal Placental Location: Posterior with lower margin 5.6 cm from os. Suspect circumvallate placenta. Cervix Length: 3.69 cm ; closed. ANATOMY: Normal Structures -cerebellum, choroid plexus, cisterna magna, lateral cerebral ventricles, orbits, midline falx, hard palate, four-chamber heart, RVOT, LVOT, stomach, kidneys, bladder, umbilical cord insertion into abdomen, three-vessel cord, cervical spine, thoracic spine, lumbar spine, sacral spine, right upper extremity, left upper extremity, right lower extremity, left lower extremity. SUBOPTIMALLY SEEN: None ABNORMALITIES: None BIOMETRY: BPD: 4.78 cm; 20 weeks 3 days; 63.50 % HC: 18.08 cm; 20 weeks 3 days; 58.50 % AC: 17.15 cm; 22 weeks 1 day; 93.80 % FL: 3.28 cm; 20 weeks 2 days; 45.90 % EFW:403.57 g; 92.90 % FL/AC: 19.13 FL/BPD: 68.58 HC/AC: 1.05 GESTATIONAL AGE: Age by EDC: 20 weeks 1 day Age by current US: 20 weeks 6 days SHADY by current US: 2025-04-03 SHADY by EDC: 2025-04-08 US/US OB anatomy IMPRESSION: 1. Single live intrauterine with growth detailed above. 2. Suspect circumflex placenta (normal variant). No perfusion or previa. Electronically authenticated by: ALIS ECKERT Date: 11/20/2024 14:08
--- NOTE | 2024-11-20 07:50 | US_ITS ---
[address] [address] Patient Name: RUEL READ MRN: [id number] date: 1995 Sex: F Assigned Patient Location: US Current Patient Location: Accession/Order Number: [id number] Exam Date: 11/20/2024 07:55 Report Date: 11/20/2024 14:08 At the request of: YULIA ESTES Procedure: US OB cervical length EXAMINATION: US OB anatomy, US OB cervical length HISTORY: Anatomy Scan Second Trimester COMPARISON: No relevant comparison available. TECHNIQUE: Transabdominal sonographic examination was performed for obstetrical and evaluation. FINDINGS: Number: 1 Heart Rate: 148.35 bpm H.B. /min Amniotic Fluid Volume: Subjectively normal Placental Location: Posterior with lower margin 5.6 cm from os. Suspect circumvallate placenta. Cervix Length: 3.69 cm ; closed. ANATOMY: Normal Structures -cerebellum, choroid plexus, cisterna magna, lateral cerebral ventricles, orbits, midline falx, hard palate, four-chamber heart, RVOT, LVOT, stomach, kidneys, bladder, umbilical cord insertion into abdomen, three-vessel cord, cervical spine, thoracic spine, lumbar spine, sacral spine, right upper extremity, left upper extremity, right lower extremity, left lower extremity. SUBOPTIMALLY SEEN: None ABNORMALITIES: None BIOMETRY: BPD: 4.78 cm; 20 weeks 3 days; 63.50 % HC: 18.08 cm; 20 weeks 3 days; 58.50 % AC: 17.15 cm; 22 weeks 1 day; 93.80 % FL: 3.28 cm; 20 weeks 2 days; 45.90 % EFW:403.57 g; 92.90 % FL/AC: 19.13 FL/BPD: 68.58 HC/AC: 1.05 GESTATIONAL AGE: Age by EDC: 20 weeks 1 day Age by current US: 20 weeks 6 days SHADY by current US: 2025-04-03 SHADY by EDC: 2025-04-08 US/US OB cervical length IMPRESSION: 1. Single live intrauterine with growth detailed above. 2. Suspect circumflex placenta (normal variant). No perfusion or previa. Electronically authenticated by: ALIS ECKERT Date: 11/20/2024 14:08
--- OUTSIDE RECORDS SUMMARY | 2024-11-20 08:05 | XMS_ITS | CCD ---
Author Organization [facility] Care Team Providers Care Paving Inspector Name Role Phone Unavailable Primary Care Provider UnavailCharli Browne Primary Care Physician [phone] Keyon Brown MD Primary Care Provider ANTHONY Carl Attending UnavailKeyon Lockett Attending Unavailable Evan Moyer Attending Unavailable LISHA, DR DRUMMOND LISTED Consulting Unavaila ble [facility] [place] [facility] [place] NICOLE Primary Care Unavailable ENRIQUETA ., DR BENDER Attending Unavailable ENRIQUETA ., DR BENDER Admitting Unavailable Clingman HUMA, Óscar Moreno Primary Care Provider Tyshawn FINN, Óscar Moreno Primary Care Provider [phone] Keyon Brown MD Primary Care Provider [phone] Gary Robison DO Unavailable GARY ROBISON Attending Unavailable ENRIQUETA, GARY Attending Unavailable ENRIQUETAGARY WOODS Attending Unavailable ENRIQUETA, GARY Attending Unavailable ENRIQUETAGARY WOODS Attending Unavailable GARY ROBISON Attending Unavailable JOHN PARTIDA Referring Unavailable JOHN PARTIDA Attending Unavailable CLINGMAN, ÓSCAR A Primary Care Unavailable JOHN PARTIDA Referring Unavailable CLINGMAN, ÓSCAR A Primary Care Unavailable JOHN PARTIDA Referring Unavailable CLINGMAN, ÓSCAR A Primary Care Unavailable JOHN PARTIDA Attending Unavailable GARY ROBISON Referring Unavailable CLINGMAN, ÓSCAR A Primary Care Unavailable GARY ROBISON Referring Unavailable CLINGMAN, ÓSCAR A Primary Care Unavailable GARY ROBISON Referring Unavailable CLINGMAN, ÓSCAR A Primary Care Unavailable GARY ROBISON Referring Unavailable CLINGMAN, ÓSCAR A Primary [...] Primary Care Unavailable OLEJOHN CAIN Attending Unavailable CLINGMAN, ÓSCAR A Primary Care Unavailable JOHN PARTIDA Referring Unavailable JOHN PARTIDA Referring Unavailable OLEJOHN CAIN Attending Unavailable CLINGMAN, ÓSCAR A Primary Care Unavailable JOHN PARTIDA Referring Unavailable CLINGMAN, ÓSCAR A Primary Care Unavailable JOHN PARTIDA Attending Unavailable JOHN PARTIDA Referring Unavailable CLINGMAN, ÓSCAR A Primary Care Unavailable JOHN PARTIDA Attending Unavailable GARY ROBISON Referring Unavailable CLINGMAN, ÓSCAR A Primary Care Unavailable JOHN PARTIDA Referring Unavailable JOHN PARTIDA Attending Unavailable CLINGMAN, ÓSCAR A Primary Care Unavailable JOHN PARTIDA Referring Unavailable JOHN PARTIDA Attending Unavailable CLINGMAN, ÓSCAR A Primary Care Unavailable KEYON BROWN Primary Care Unavailable GARY ROBISON Referring Unavailable JOHN PARTIDA Attending Unavailable [...] Unavailable CLINGMAN, ÓSCAR A Primary Care Unavailable KEYON BROWN Primary Care Unavailable GARY ROBISON Referring Unavailable CLINGMAN, ÓSCAR A Primary Care Unavailable JOHN PARTIDA Attending Unavailable JOHN PARTIDA Referring Unavailable ÓSCAR VILLAGRAN Primary Care Unavailable Allergies Allergy Classification Reported Allergen(s) Allergy Type Date of Onset Reaction(s) Facility (20 sources) Acetaminophen / HYDROcodone Drug Allergy 7 Rash, Unknown [facility] (20 sources) Acetaminophen / oxyCODONE Drug Allergy 5 Rash, Unknown [facility] (20 sources) Codeine; Translations: [codeine] Drug Allergy 7 Rash, Cutaneous eruption (morphologic abnormality), Unknown [facility] (3 sources) Acetaminophen / HYDROcodone; Translations: [acetaminophen-hy drocodone] Drug Allergy [facility] (3 sources) Acetaminophen / oxyCODONE; Translations: [acetaminophen-ox ycodone] Drug Allergy Cutaneous eruption (morphologic abnormality) [facility] Care (1 source) Acetaminophen / HYDROcodone Drug Allergy [facility] (1 source) Acetaminophen / oxyCODONE Drug Allergy [facility] (1 source) Codeine Drug Allergy [facility] (13 sources) HYDROcodone Drug Allergy 3 [facility] (13 sources) orange allergenic extract Drug Allergy 5 [facility] Medications Current Medications Medication Drug Class(es) Dates Sig (Normalized) Sig (Original) amoxicillin 875 mg / clavulanate 125 mg oral tablet (1 source) Penicillin-class Antibacterial Start: 09-14-2021 End: 09-24-2021 take 1 tablet by mouth twice daily amoxicillin-clavul anate (AUGMENTIN) 875-125 MG per tablet Take 1 tablet by mouth 2 times daily for 10 days 20 tablet 0 09/14/2021 09/24/2021 Active 12 hr dextromethorphan hydrobromide 60 mg / guaiFENesin 1200 mg extended release oral tablet (6 sources) Uncompetitive O-htogkh-H-aspartate Receptor Antagonist, Sigma-1 Agonist Start: 09-14-2021 take 1 tablet by mouth every twelve hours as needed for cough Dextromethorphan-g uaiFENesin 60-1200 MG TB12 Take 1 tablet by mouth every 12 hours as needed (COUGH CONGESTION) 28 tablet 0 09/14/2021 Active dextromethorphan hydrobromide 3 mg/ml / promethazine hydrochloride 1.25 mg/ml oral solution (6 sources) Phenothiazine, Uncompetitive F-gwjdwk-H-aspartate Receptor Antagonist, Sigma-1 Agonist Start: 05-31-2018 promethazine-dextr omethorphan (PROMETHAZINE-DM) 6.25-15 MG/5ML syrup Take 5 mLs [...] day(s), # 30 tab(s), Refills(s) 1, Pharmacy: [id number], 170, cm, 06/01/22 12:55:00 EDT, Height/Length [...] by mouth 4 times daily 0 Active metoclopramide 10 mg oral tablet (4 sources) Dopamine-2 Receptor Antagonist Start: 10-17-2024 End: 01-15-2025 metoclopramide (Reglan) 10 MG tablet Indications: Nausea and vomiting during Take 1 tablet (10 mg) by mouth in the morning and 1 tablet (10 mg) at noon and 1 tablet (10 mg) in the evening and 1 tablet (10 mg) before bedtime. 120 tablet 2 10/17/2024 01/15/2025 Active omeprazole 20 mg delayed release oral capsule (6 sources) Proton Pump Inhibitor take 1 capsule by mouth once daily omeprazole (PRILOSEC) 20 MG capsule Take 20 mg by mouth daily 0 Active ondansetron 4 mg disintegrating oral tablet (5 sources) Serotonin-3 Receptor Antagonist Start: 08-07-2024 End: 09-06-2024 take 1 tablet by mouth every six hours for nausea ondansetron ODT (Zofran-ODT) 4 MG disintegrating tablet Indications: Nausea and vomiting in Take 1 tablet (4 mg) by mouth every 6 (six) hours if needed for nausea or vomiting 30 tablet 2 08/07/2024 09/06/2024 Active Start: 12-04-2022 take 1 tablet by aurelia th every eight hours as needed for nausea [...] 0 05/22/2024 05/27/2024 Active 27-1 MG tablet (8 sources) 27-1 MG tablet 1 (one) time each day at the same time Active Multivitamins with Vitamin B Complex, Vitamin C, Minerals and L-Methylfolate oral capsule (2 sources) Start: 01-19-2017 Multi vitamins with Vitamin B Complex, Vitamin C, Minerals and L-Methylfolate oral capsule 1 cap(s), Oral, Daily, 30 cap(s), Refill(s) 0 Start Date: 01/19/17 Status: Ordered MV-Min-Fe Fum-FA-DHA ( 1 PO) (20 sources) MV-Min- Fe Fum-FA-DHA ( 1 PO) Take by mouth. Active MV-Min- Fe Fum-FA-DHA ( 1 PO) Take by mouth Active MV-Min- Fe Fum-FA-DHA ( 1 PO) Take by mouth 0 Active promethazine hydrochloride 12.5 mg oral tablet (13 sources) Phenothiazine Start: 02-10-2024 take 1 tablet [...] TID, # 15 tab(s), Refills(s) 0, Pharmacy: [facility], 170, cm, 09/03/22 14:31:00 EDT, Height/Length [...] for closed fracture with routine healing] Episodic Immunizations and screening for infectious disease (2 sources) Exposure to sexually transmissible disorder; Translations: [Contact with and (suspected) exposure to infections with a predominantly sexual mode of transmission] 10-17-2024 Episodic Intestinal infection (2 sources) Intestinal infectious disease; Translations: [Other specified intestinal infections] Onset: 12-08-2022 Episodic Menstrual disorders (3 sources) Irregular menstruation, unspecified; Translations: [Missed period] Onset: 06-08-2024 Chronic Other complications of (2 sources) Vomiting of , unspecified; Translations: [Unspecified vomiting of , unspecified as to episode of care or not applicable] 10-17-2024 Episodic Other female genital disorders (2 sources) Vaginal discharge; Translations: [Other specified noninflammatory disorders of vagina] 10-17-2024 Episodic Other injuries and conditions due to [...] 06-01-2022 Chronic Other and delivery including normal (11 sources) First trimester ; Translations: [Encounter for supervision of normal , unspecified, first trimester] Onset: 10-17-2024 09-18-2024 Episodic Residual codes; unclassified (9 sources) Patient encounter status; Translations: [Other specified health status] Onset: 06-01-2022 Episodic Residual codes; unclassified (2 sources) Gestation period, 11 weeks; Translations: [11 weeks gestation of ] 09-18-2024 Episodic Residual codes; unclassified (6 sources) Gestation period, 15 weeks; Translations: [15 weeks gestation of ] Onset: 10-17-2024 10-17-2024 Episodic Residual codes; unclassified (1 source) Gestation period, 6 weeks; Translations: [Less than 8 weeks gestation of ] 08-18-2024 Episodic Unclassified (2 sources) Non-smoker 06-01-2022 Viral [...] NEGATED: Highlighted row has been ruled out!Unclassified (4 sources) No known active problems 05-22-2024 Results Test Name Value Interpretation Reference Range Facility IGP,APTIMA HPV,AGE GDLNon AGE GDLN ACOG TESTING Note . [facility] Comment on above: TESTS RESULT FLAG UN ITS REF RANGE LAB Clinician Provided Cytology Information Source.............Cervix No. of containers..01 ThinPrep Vial Age Algo ACOG Subha... -20 12 FLAG LEGEND: L-Low Normal,H-High Normal,LL-Alert Low,HH-Alert High <-Panic Low,>-Panic High,A-Abnormal,AA-Critical Abnormal Performed at: 01 =G [facility] [address] [place] [address] Yulisa Mustafa MD, IGP, RFX APTIMA HPV ASCU Note . [facility] Comment on above: TESTS RESULT FLAG UN ITS REF RANGE LAB DIAGNOSIS: 02 NEGATIVE FOR INTRAEPITHELIAL LESION OR MALIGNANCY. FUNGAL ORGANISMS MORPHOLOGICALLY CONSISTENT WITH FELIPE SPECIES ARE PRESENT. Specimen adequacy: 02 Satisfactory for evaluation. Endocervical and/or squamous metaplastic cells (endocervical component) are present. Performed by: 02 Susan Boucher, Tile Edger ([facility]) . 02 Note: Note 03 The Pap smear is a screening test designed to aid in the detection of premalignant and malignant conditions of the uterine cervix. It is not a diagnostic procedure and should not be used as the sole means of detecting cervical cancer. Both false-positive and false-negative reports do occur. Test Methodology: Note 03 This liquid based ThinPrep(R) pap test was screened with the use of an image guided system. . 02 The HPV DNA reflex criteria were not met with this specimen result therefore, no HPV testing was performed. FLAG LEGEND: L-Low Normal,H-High Normal,LL-Alert Low,HH-Alert High <-Panic Low,>-Panic High,A-Abnormal,AA-Critical Abnormal Performed at: 02 [facility]NGEL [facility] [address] [facility] [place] [address] Pily Shields PhD, [facility] [address] [place] [address] Yulisa Mustafa MD, Performed at: [facility] [address], [place] [id number] Storage Center Manager: Yulisa Mustafa MD, Phone: [phone] Performed at: [address], [place] [id number] Storage Center Manager: Pily Shields PhD, Phone: [phone] SPATULA-ALONE CERVIX [facility] Healthcar e RECURRENT VAGINITIS (HTRX)on 10-18-2024 ATOPOBIUM VAGINAE 0 [facility] ATOPOBIUM VAGINAE Not detected [facility] BVAB 2,3 (BACTERIAL VAGINOSIS ASSOCIATED BACTERIA 2, 3); MOBILUNCUS SPP 0 [facility] BVAB 2,3 (BACTERIAL VAGINOSIS ASSOCIATED BACTERIA 2, 3); MOBILUNCUS SPP Not detected [facility] FELIPE ALBICANS, PARAPSILOSIS, TROPICALIS 0 [facility] FELIPE ALBICANS, PARAPSILOSIS, TROPICALIS Not detected [facility] FELIPE GLABRATA 0 [facility] FELIPE GLABRATA Not detected [facility] FELIPE KRUSEI [facility] KRUSEI Not detected [facility] CHLAMYDIA TRACHOMATIS 0 [facility] CHLAMYDIA TRACHOMATIS Not detected [facility] GARDNERELLA VAGINALIS 0 [facility] GARDNERELLA VAGINALIS Not detected [facility] MEGASPHAERA (TYPES 1, 2) 0 [facility] MEGASPHAERA (TYPES 1, 2) Not detected [facility] MYCOPLASMA GENITALIUM 0 [facility] MYCOPLASMA GENITALIUM Not detected [facility] NEISSERIA GONORRHOEAE 0 [facility] NEISSERIA GONORRHOEAE Not detected [facility] TRICHOMONAS VAGINALIS 0 [facility] TRICHOMONAS VAGINALIS Not detected [facility] Healthcar e Urinalysis macro (dipstick) panel (U)on 10-17-2024 Bilirubin, UA Negative Negative - 4(70) +++ mg/dL [facility] Comment on above: n Blood, UA Negative Negative - 50 Darnell/mcL [facility] Clarity, UA Clear [facility] Color, UA Yellow [facility] Glucose, UA Negative Negative - 1999(110) ++++ mg/dL [facility] Interpretation and review of laboratory results Normal [facility] Healthca re Ketones, UA Negative Negative - 160(16) ++++ mg/dL [facility] Leukocytes, UA Negative Negative - 500+++ Shona/mcL [facility] Nitrite, UA Negative Negative - Positive [facility] pH, UA 6 5 - 9 [facility] Healthcar e Protein, UA Negative Negative - 1999(20) ++++ mg/dL [facility] Spec Grav, UA 1.03 1 - 1.03 [facility] Urobilinogen, UA 0.2 0.2 - 12 mg/dL [facility] Healthcar e Urinalysis macro (dipstick) panel (U)on 09-18-2024 Bilirubin, UA Negative Negative - 4(70) +++ mg/dL [facility] Blood, UA Negative Negative - 50 Darnell/mcL [facility] Clarity, UA Clear [facility] Color, UA Yellow [facility] Healthcar e Glucose, UA Negative Negative - 1999(110) ++++ mg/dL [facility] Interpretation and review of laboratory results Normal [facility] Ketones, UA Negative Negative - 160(16) ++++ mg/dL [facility] Leukocytes, UA Negative Negative - 500+++ Shona/mcL [facility] Nitrite, UA Negative Negative - Positive [facility] pH, UA 6.5 5 - 9 [facility] Healthcar e Protein, UA Negative Negative - 1999(20) ++++ mg/dL [facility] Spec Grav, UA 1.015 1 - 1.03 [facility] Urobilinogen, UA 0.2 0.2 - 12 mg/dL [facility] BOX TESTon 09-11-2024 BOX TEST SENT OUT [employer] [facility] althcare [address] [facility] iPierian e [address] 11/11/24 [facility] [employer] BOX [facility] [employer] HCG ( test) Ql (U)o n 08-18-2024 Interpretation and review of laboratory results Abnormal [facility] Healthca re Preg Test, Ur Positive [facility] Urinalysis macro (dipstick) panel (U)on 08-18-2024 Bilirubin, UA Negative Negative - 4(70) +++ mg/dL [facility] Blood, UA Negative Negative - 50 Darnell/mcL [facility] Clarity, UA Clear [facility] Healthca re Color, UA Yellow [facility] Healthcar e Glucose, UA Negative Negative - 1999(110) ++++ mg/dL [facility] Interpretation and review of laboratory results Abnormal [facility] Healthca re Ketones, UA Negative Negative - 160(16) ++++ mg/dL [facility] Leukocytes, UA Negative Negative - 500+++ Shona/mcL [facility] Nitrite, UA Positive Negative - Positive [facility] Comment on above: small pH, UA 7.0 5 - 9 [facility] Protein, UA Negative Negative - 1999(20) ++++ mg/dL [facility] Spec Grav, UA 1.015 1 - 1.03 [facility] Urobilinogen, UA 0.2 0.2 - 12 mg/dL [facility] Healthcar e ALL HCG, QUANTITATIVEon 07-23 Interpretation and review of laboratory results Abnormal [facility] Healthma re MHPT HCG, QUANT 50995.0 High [facility] Comment on above: Non-preg premeno <=5 Postmeno <=8 Male <=3 If HCG results do not concur with clinical observations, additional testing to confirm results is recommended. Original Ordering Provider: GARY HARRELLZIO [facility] Healthcar e HCG, Quanton 08-07-2024 HCG, Quant 01436.0 mIU/mL High <5 [facility] Comment on above: Result Comment: Non-preg premeno <=5 Postmeno <=8 Male <=3 If HCG results do not concur with clinical observations, additional testing to confirm results is recommended. Performed By: #### B HCG #### [facility] [address] [place] [address] Storage Center Manager: Armen Madrigal MD HCG, Quantitative, on 08-07-2024 [place] [address].0 m[IU]/mL High [facility] Comment on above: Non-preg premeno <=5 Postmeno <=8 Male <=3 If HCG results do not concur with clinical observations, additional testing to confirm results is recommended. Interpretation and review of laboratory results Abnormal [facility] ALL HCG, QUANTITATIVEon 07-23 Interpretation and review of laboratory results Abnormal [facility] MHPT HCG, QUANT 1366.0 High [facility] Comment on above: Non-preg premeno <=5 Postmeno <=8 Male <=3 If HCG results do not concur with clinical observations, additional testing to confirm results is recommended. Original Ordering Provider: GARY AGUILAR DO ALVAREZZIO [facility] HCG, Quanton 08-02-2024 HCG, Quant 1366.0 mIU/mL High <5 [facility] Comment on above: Result Comment: Non-preg premeno <=5 Postmeno <=8 Male <=3 If HCG results do not concur with clinical observations, additional testing to confirm results is recommended. Performed By: #### B HCG #### [facility] [address] [place] [address] Storage Center Manager: Armen Madrigal MD ALL HCG, QUANTITATIVEon Interpretation and review of laboratory results Abnormal [facility] re MHPT HCG, QUANT 506.3 High [facility] Comment on above: Non-preg premeno <=5 Postmeno <=8 Male <=3 If HCG results do not concur with clinical observations, additional testing to confirm results is recommended. Original Ordering Provider: GARY AGUILAR DO [facility] Health[facility] HCG, Quanton 07-31-2024 HCG, Quant 506.3 mIU/mL High <[address] [facility] Comment on above: Result Comment: Non-preg premeno <=5 Postmeno <=8 Male <=3 If HCG results do not concur with clinical observations, additional testing to confirm results is recommended. Performed By: #### B HCG #### [facility] [address] [place] [address] Storage Center Manager: Armen Madrigal MD HCG, Quantitative, on 07-31-2024 HCG.beta subunit Qn 506.3 m[IU]/mL High [facility] Comment on above: Non-preg premeno <=5 Postmeno <=8 Male <=3 If HCG results do not concur with clinical observations, additional testing to confirm results is recommended. Interpretation and review of laboratory results Abnormal [facility] ALL HCG, QUANTITATIVEon Interpretation and review of laboratory results Abnormal [facility] MHPT HCG, QUANT 200.3 High [facility]INF [facility] Comment on above: Non-preg premeno <=5 Postmeno <=8 Male <=3 If HCG results do not concur with clinical observations, additional testing to confirm results is recommended. Original Ordering Provider: GARY HARRELLZIO [facility] HCG, Quanton 07-29-2024 HCG, Quant 200.3 mIU/mL High <[address] [facility] Comment on above: Result Comment: Non-preg premeno <=5 Postmeno <=8 Male <=3 If HCG results do not concur with clinical observations, additional testing to confirm results is recommended. Performed By: #### B HCG #### [facility] [address] [place] [address] Storage Center Manager: Armen Madrigal MD ALL HCG SERUM,QUALITATIVEon 07-27-2024 Interpretation and review of laboratory results Abnormal [facility] MHPT HCG SCREEN, BLOOD Positive Abnormal NEG [facility] Comment on above: If HCG results do not concur with clinical observations, additional testing to confirm result is recommended. This test is not labeled for use as a tumor marker. [facility] has confirmed the use of plasma for this test. This has not been cleared or approved by the U.S. Food and Drug Administration. The FDA has determined that such clearance is not necessary. Original Ordering Provider: GARY WALTERSISYMN [facility] HCG Screen, Bloodon 07-27-20 24 HCG Screen, Blood Positive Abnormal NEG [facility] Comment on above: Result Comment: If HCG results do not concur with clinical observations, additional testing to confirm result is recommended. This test is not labeled for use as a tumor marker. [facility] has confirmed the use of plasma for this test. This has not been cleared or approved by the U.S. Food and Drug Administration. The FDA has determined that such clearance is not necessary. Performed By: #### H CG #### [facility] [address] [place] [address] Storage Center Manager: Armen Madrigal MD HCG, Quanton 07-27-2024 HCG, Quant 73.4 mIU/mL High <5 [facility] Comment on above: Result Comment: Non-preg premeno <=5 Postmeno <=8 Male <=3 If HCG results do not concur with clinical observations, additional testing to confirm results is recommended. Performed By: #### B HCG #### [facility] [address] [place], [place] [id number] Storage Center Manager: Armen Madrigal MD HCG, Quanton 06-08-2024 HCG, Quant <1.0 Normal <5 [facility] Comment on above: Result Comment: Non-preg premeno <=5 Postmeno <=8 Male <=3 If HCG results do not concur with clinical observations, additional testing to confirm results is recommended. Performed By: #### B HCG #### [facility] [address] [place] [address] Storage Center Manager: Armen Madrigal MD XR SACRUM COCCYX (MIN 2 VIEW S)on 05-24-2024 XR SACRUM COCCYX (MIN 2 VIEWS) HISTORY: Sacral pain. TECHNIQUE: 3 views sacrum and coccyx. COMPARISON: None. FINDINGS: Sacroiliac joints are normal. No fracture or acute osseous abnormality is identified. IMPRESSION: No acute process. Interpreted by: Parker Coleman MD Signed by: Parker Coleman MD 05/24/24 Final result Normal [facility] HCG, Quanton 03-04-2024 HCG, Quant 3680.0 mIU/mL High <5 [facility] Comment on above: Result Comment: Non-preg premeno <=5 Postmeno <=8 Male <=3 If HCG results do not concur with clinical observations, additional testing to confirm results is recommended. Performed By: #### B HCG #### [facility] [address] [place] [address] Storage Center Manager: Armen Madrigal MD Cytology Cervical or vaginal smear or scraping studyon 05-26-[address] [facility] lissa RAD - MISCon 02-01-2023 RAD - MISC [id number] Normal [facility] XR ANKLE RIGHT (MIN 3 VIEWS) on 01-29-2023 FINDINGS/IMPRESSION: 1. Compression fracture tip of the fibula no longer separately seen. 2. Anatomic alignment throughout. 3. Soft tissue swelling has resolved. [facility] EXAM: XR ANKLE RIGHT (MIN 3 VIEWS). HISTORY: Other closed fracture of proximal end of right fibula with routine healing, subsequent encounter. COMPARISON: 01/10/2023. [facility] Mauro Anton Jr., MD - 01/29/2023 EXAM: XR ANKLE RIGHT (MIN 3 VIEWS). HISTORY: Other closed fracture of proximal end of right fibula with routine healing, subsequent encounter. COMPARISON: 01/10/2023. IMPRESSION: FINDINGS/IMPRESSION: 1. Compression fracture tip of the fibula no longer separately seen. 2. Anatomic alignment throughout. 3. Soft tissue swelling has resolved. [email or web address] Phone: Radiology Study observation (narrative) [employer] Phone: XR ANKLE RIGHT (MIN 3 VIEWS) Ordered By: Mauro Anton on 01-29-2023 [facility] [employer] Phone: RAD - MISCon 01-11-2023 RAD - MISC [id number] #1.00CD:127 Normal [facility] XR ANKLE RIGHT (MIN 3 VIEWS) on 01-10-2023 FINDINGS/IMPRESSION: 1. Very small nondisplaced incomplete fracture is questioned in the distal tip of the right fibula, with mild surrounding soft tissue swelling. 2. No other fracture, malalignment, significant arthritis or acute bony abnormality is seen. [facility] CLINICAL HISTORY: Right ankle pain and swelling since an injury yesterday. RIGHT ANKLE 3 VIEWS: [facility] DAVID Amezquita, João Ayala MD - 01/10/2023 CLINICAL HISTORY: Right ankle pain and swelling since an injury yesterday. RIGHT ANKLE 3 VIEWS: IMPRESSION: FINDINGS/IMPRESSION: 1. Very small nondisplaced incomplete fracture is questioned in the distal tip of the right fibula, with mild surrounding soft tissue swelling. 2. No other fracture, malalignment, significant arthritis or acute bony abnormality is seen. 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 Obesity due to excess calories BMI [...] to 60 minutes before meals Pickup at [facility] Unchanged multivitamin, ( Multivitamins with Vitamin B Complex, Vitamin C, Minerals and L-Methylfolate oral capsule) 1 Capsules By Mouth Every day Contact prescribing physician if questions or concerns Unchanged ondansetron (Zofran ODT 4 mg Tab-Dis) 1 Tablets By Mouth 3 times a day Contact prescribing physician if questions or concerns Pharmacy Information [facility]: [address], [place] [id number] [phone] Medications and Immunizations Administered Not Given influenza virus vaccine, inactivated, Postpone due to refusal SARS-CoV-2 mRNA (tozinameran 5y-11y) vac, Postpone due to refusal Allergies Percocet 5/325 (Hives, Rash) Vicodin (Hives) codeine (Hives, Rash) Problems Ongoing - Any problem that you are currently receiving treatment for. 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 Normal [facility] ED Note-Physicianon 12-08-19 ED Note-Physician [id number] #1.00CD:127 Normal [facility] Family Medicine Office/Clini c Noteon 12-08-2022 [...] for influenza and COVID. 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 Normal [facility] Comment on above: Result Comment: Elec jacquelinenically Signed By: Keyon BROWN MD\.br\Date and Time Signed: 12/08/22 12:20 EST Patient [...] and water are not available, use hand ice platform supervisor. ? Make sure that all people in your household wash their hands well and often. ? Take mhkq-wnw-bbedhvi and prescription medicines only as told by [...] content not included)... Normal [facility] COVID-19, Rapidon 12-04-2022 SARS-CoV-2 (COVID-19) RNA WADE+probe Ql (Unsp spec) Not detected Not Detected [facility] Comment on above: Rapid NAAT: The [...] management decisions. Fact sheet for Healthcare Providers: https://www.fda.gov/media/825269/download Fact sheet for Patients: https://www.fda.gov/media/613092/download Methodology: Isothermal Nucleic Acid Amplification Specimen Description .NASOPHARYNGEAL SWAB [facility] Rapid influenza A/B antigens on 12-04-2022 Flu A Antigen Negative NEGATIVE [facility] Comment on above: for Influenza A Anti gen Flu B Antigen Negative NEGATIVE [facility] Comment on above: for Influenza B Anti gen. [facility] C Urineon 09-06-2022 Bacteria identified Cx [...] Locations R1: This test was performed at: [facility], [address] [place] [address], [facility] , , [facility] Comment on above: Performed By: #### 2 [id number], [id number], [id number] ####[facility] [address] [place] [address] Coding Summary.on 09-04-2022 Coding Summary. [id number] Gh0bWw+PGhlYWQ+PE1FV DGqF00csXBsfW7FY7fLN M1LHEHBSEHJMA9LMX4hl DT5MTzgG2MkrdKk SvggkOUmYB73PGe1OFR1 gKcbTOuanU4miDOsI4u2 GmBsGD94oC28HCiuUPYu AhS4WcYupgnbtMJu K7aqAcUykNDkCta+PHRh YmxlIHdpZHRoPScxMDAl DtBuiVwhMV0fTr0wFYQr LWNvbGxhcHNlOiBj j3jiNQEgJMcqMT1hsNev V3AimTV7VMEoh9n2Pe39 dHI+HSPgGIG6yDwwRJjy z447EeRrh6ayUCG8 sWOnFYgiMRY9D32jj4L0 YOKbAKKpKLR4gPX6yD4f jHvrcaxjI3RnnYFiEmX0 HJY3aWDicV8zkSeh mviogI2xMfc+T53OGM3F CYSQPN1IFam7G8MtClur dHI+DE32RBEmNK25tLFj gKUpj9qimTs5HjZu WNMgPZP9qYxrBZmrr3Gl GWQtC71arBOul6S1WADb iIuwzEAvZaRqkPK4pJ1r AEdngidub4maczto Kofkn0lmpt33hV75Q44e MJulHFZfIDG4RUQuQAZi fEwnsz5qqA6kKd3+IDxj e3vcp1mpcWh5BkFi BWDilqCnmGuoCTW8x9Qo Ex64Q3UvzCkfa0AlWgc2 sc31aTOcb8H1pCX3WPzd UVPnoV2mVIwnNjZ3 STWwRdKxaL42cIJoWJvm Tz2ylBnvePbbPY3vBAZn fmvcUKSukG8jBMObmFNm wSwpPS0yJWSzpkvx r959BvYmWWZ0LHZncJMo L2ShzJ3kOpJlJGKnPKKg L3IefRYqXYccU368NTdt MeD9TYIsuzYsZ9Uc BBPnqYnjTvZ4n8D9Ov3F x9FdopibLJM9QHkrZDEr EzA3JmQkEtZ0Y5JeQyn9 BAShoVqaIV3uS7Vy ECCpknasxrivsJL7QHZb ZRQiqV03dJMnGNunSe9j r6W1i745XUEuFYOokQ40 Wa7xzUtpCCFvyVMO yK3hfgpqz7bgzsxlVgWy PCYwQKz5DLp6ILSwqMzc LeVeAVQ8FyT9NSJ5jMCw nK1fbYsbnbtfoR3h Oyc+X95noK5vSDI8VKG4 eogzZMLyqtHgFR21SB46 Q2WgPwbtuNJkjTH+PGRp qaYgyDudCM1cKjCn e8nsv0KhKYyfB7HfLHHb GTbhEfx9KMGgJKD3eGQ3 hH7qSEWnLPtjc7B9eIN9 B2IcwaRafb0tp7wo MQCtNHdsD12pbSChk0O6 CLFlwZZ2SIUdnVvlNaIe oW88Rmx+ADIabUoaa8Gc Tcawc6awm2tmvMi5 IjMwJSIgdmFsaWduPSJ0 f3RbEb79Q46vMPwfDBEk YUHrYUHrISSrqZhigm8i fF5aTf2+PGNvbCB3 zHY7uI4oLYZvOjX8LMzv S826ZiZurBOvHtzge8rk u4nkyRh0NlEzMARnnpJg dDwmHKA2m3BwLj74 A19vZTszFKSgIOGrRVNb NMLgdGsdai3zeW1qKw6+ VS2gw1arpr10eS18uBX+ ACDnRPU1mHenDRwt LLPkzY1hXMlqXpD0JIFf IhCxjJ12jMGqNSxbSc5g mOmizTyoCJ3nMEXkbfrj h989UqGbt3mxAZAa rRLsAVltCAL5T83gm7L2 IDJwJSZnQUF0tTZ5tP4m bGlnbjogbGVmdDsgdmVy vFyyNBfnZHyfB291 IHRvcDsnPlBhdGllbnQg LuCgFHb2H2HoOjx2UJEe aKisXC4veSXlLJztMa1d nNbckSphEV3rKOOo ulary849EnBsx1ooKOYe nIRaTFftMHD9W44ru6I8 IDXcLJKiLXS0eSY1tZ7v bGlnbjogbGVmdDsg yzPejFmgSSweSWkwX524 IHRvcDsnPkJpcnRoIERh ePJ6SO94NR36lIZyo1K2 jWN3D2ShDFEbmhkh kzxegUE7NCYuFMKuzA35 Qi3ciPeoWm4aAWEpZOB9 CMBspBNhZ8OdvA2lOoVg VOCtUGWeR6KfjKEb DUjbD929RPqmQsB8KPUr guXrC1OtXPOidJkhGaO7 t6B6Cv3NA1F7EP63NM41 lBJma5L6dLL0L7Qh MVJyxqvwrquslNE1ZOWa DPMsvF10Xn9xoEyiFm0s DWTwEPU4FWUwpPKtH8Ot pD4rGcCwVSVuZONp H7HikUZjATpdT618LVdp NdF3KWCmwtGrJ0XtKBOm fDbeIvV6h5F6Ca7JHAb2 TS47AV11dTKty6I2 gBG8N9QyXUWnzxtwilcq mSN3OUKpXFNdvI59Fg4q yTyhPg9sMVBzOAQ4YEAq tJTwC1BigQ9cRrWn XNPsQXDpJ3TwhYUyKMqb O682VVljFwI1FLJsvwSj T5DsQBWtvRjkQeE4g2K4 Js1XLGHlYJ94SGZ9 fJQ0EB43UX43E1EcUkir dGFibGU+PHRhYmxlIHdp ZHRoPScxMDAlJyBzdHls JJ1fBn7sYLRtQLWc wDygzBJhBrMaq7zdEWSy BAozML2yrAdqC7TszMV8 VYYjg2j1Ax60I91vR0Zs dXA+ILXqvJP5eLP9 xP8hLpIhZtV5ZEpzE116 OyEneBNvLpezt5wmj8zd oEq3DaT0ZWPqkuGunVrq THY2h9OxDi35H46i IHdpZHRoPSIxNSUiIHZh aDptyg9byY4cNe9+PGNv rEC6vDR7uX1iBtPkFcE2 DEkrF268XgWttXGu Tgtxl9rmg0wijZj0HlRp PTWjvvXwsMfhWKS5m5Vi Qw97B6CjaJhtk7HrQbr6 mh07dXTgk3O7sGM1 B7PsMFQckknijQVemQhc MW4tPTWwsuygYBEpnC6o TFYtJ5l3ZaKrCjF9WUzo A1WjinO8QDWjuWYw OOdfEKQ1S68xr9T8YEXb WECwMFT3aMP0pD3hvMpm bjogbGVmdDsgdmVydGlj IAacRAboU349ACLb vZtwJXTpjE9jFSDxnAQe gWaqNN0wWESqvjhuYbWK Zm1AMSWfRUeSVUoKHF6r RTwvdGQ+PHRkIHN0 hPkiDJfdGXGhxC0aJDIt W7a7PwIkIsT9JEhdP7Av YQQzmiuxXl32yZ6mTtHh DtQ7CUmqJ7QutdF8 PWTnzBAdPXpaSKA6Q43x v2F5QNEtALSqGLO8sUU4 qX4zzUtffdtriMHrnUtt dmVydGljYWwtYWxp A711QRKpqLiwJkVtVtN9 VcJ4TWD7W1MpBrk4OVQt iTguZP0wjGErQIxeRu2s pJmwgWizEK6fQKTq mtfbPRPgiI0xZNQlhWUb gQflNL6yZQTqxbqfn829 SvTjSIH1LODviDBpM3Lm wI3iYcIrBQYtKAEl I6ScvKFsDFqjG886CVzg JxP6DHXkdwTjM1XmBWJd oKocZbI7p7N8Nm4wWfNO ZWFyczwvdGQ+PHRk OYO5gQxqKHqsDRXaeG5u RVDuH9o4HgEzZeL0ELin N3HbKMRzsegtTf50aW1x YpPfTvA0FGksG7Ty oiK5VYYyfFSwREpcIBL5 U12mw1Y1NTYhMPHaMQH7 mZI9jR4stKsbezqgfXCi dDsgdmVydGljYWwt ELwmB813HMYzdOmrKbWx bWFsZTwvdGQ+PHRkIHN0 fYttYVloLUMelT3oKHNo M9d6FeZjNcN7BMnc Q6DzFPToirriYx84bD6o ZsZxLeV0KDnzY4IdyzN3 FGTebCDuLYexFIQ0Y01h s7C7XMYzAMWqSRB5 zEC5cK8npRrrzbylrRZe dDsgdmVydGljYWwtYWxp E459FTNtsXirQlOoXXYo WS7fwMqsxLI+PC90 tu14B2HnNkgiBgo7XCJp DPV3oQG0bC9uMYJgXLgc i1L3kFK2F3QalyJrgy7g n5shMBBdCJovX65q aYNpb4Y6YWFglFY3WTXi qJjvSoWsiT94Gha+PGNv pUlrn0DnJnkky2pdt6da sNq5BzSyKXVnofEr cVdfCVZ9r2LhYg38Y75n IHdpZHRoPSIzMCUiIHZh uAulla3qdJ4eZx0+PGNv sJN8yRF0bR3hGhMu YgE2UHhxH401ReGlkWDl Qncwx5fqz2pmzYg7LhTh WIYmimZrsJkyXHZ2o7Xm Sy80L7CoxPlww6Of Sud5dr37rFRfu0U8tJH7 N3JgPYEtipfdhXTbpRid AW9wMOBrmlhtWULlkS9a OGNfV9d8NkWbTgT3 ISdmK5HvnjO9CQTksUEn OMPpqCUGuW5blwlng4ju rxwnQgLpABLgLQu5GZq0 LWFsaWduOiBsZWZ0 RaT4SUO7tCTswN6iwXju lwbraH0fXwr+EGs3o4zt yPEtDS4kuHI9WE83JQ78 dVVyw5U9pPY4U6Od XUFpjfnucktkjLW2AHKz ZENxbC46Er4thEshAt1b AKOaWUR8TJTleVBdJ1Vx cT3kYoVvYAApVLFr Y6YwsIFsYTgqO693WLwh DsT0AZParyEnN8IdLSHz lViqPdL2w9P0Nn8LCV85 DQ01KS27zBBkk5U7 bWY3P1EeSIPpmddjpjkb fWW5LPJaNTCyuI23Sl1i xMmaDn6bUFPcCLU7FATn sCDhK5BlgW8fDdRb YDQhSVQcG2FgxGCsJWph C928NOpbEmS9EIOcbcYn K0ZfJRNgoWpvEaD8g0W1 Nk6PMt40CJ58MA82 tXWhd6O3tOI9W8KgZMWs qxjtucvndLW4MJVmBAIi zW26Uz3foUssKu2nGLSt TSM6UNDkhBLvX1Ya aK2kJaHnYYWtGIEfW8Xa gVLlXHlcE092KKayEsP4 TZKitkVxI0HkPQEllQfp HrL6z3Z6Ik8NSImo lym1I1OxLcwkgLN+PC90 CWDmXB21rTUrnEChi4zo nQy8KnBhMJXlGOT4kMpt VVsmb2SgGMVqZ07k bGFw (more content not included)... Normal [facility] Consent for Treatmenton 08-22 Consent for Treatment [id number] #1.00CD:127 Normal [facility] Discharge Instructionson Discharge Instructions [id number] #1.00CD:127 Normal [facility] ED Clinical Summaryon 2021 ED Clinical Summary [address] [address] ED Clinical Summary Person Information Name: LUCEROMEENA/[place] Age: 26 Years : 1995 Sex: Female Language: Libyan PCP: Charli LOPEZ Marital Status: Single Visit [...] 09/03/2022 15:51:51 09/03/2022 15:51:51 09/03/2022 15:51:51 ADDRESS: [address] [place] [id number] PHYS DOC NOTES: MEDICAL INFORMATION: Prescriptions Given: New Medications [facility], [address], [place] [id number], [phone] ondansetron (Zofran ODT 4 mg Tab-Dis) 1 Tablets By Mouth 3 times a day. Refills: 0. Medications to Continue with No Changes Other Medications multivitamin, ( Multivitamins with Vitamin B Complex, Vitamin C, Minerals and L-Methylfolate oral capsule) 1 Capsules By Mouth every day. Refills: 0. PATIENT EDUCATION INFORMATION: Instructions: Nausea and Vomiting, Adult Follow up: With: Address: When: Charli CARLSON [address] [place] [address] Business (1) In 3 days 09/06/2022 DIAGNOSIS: Nausea & vomiting Normal [facility] ED Note-Physicianon 09-03-20 ED Note-Physician Basic [...] TID, # 15 tab(s), Refills(s) 0, Pharmacy: [facility], 170, cm, 09/03/22 14:31:00 EDT, Height/Length [...] CARLSON In 3 days 09/06/2022 EDT [address] [place] [address]- Business (1) Additional Instructions: Patient Education Nausea and Vomiting, Adult Attestation Patient seen and evaluated by the physician engineer third assistant. Attending physician was present in the emergency department and supervised care. This visit was performed by both the physician and an APC. I performed all aspects of the MDM as documented. This report was transcribed using voice recognition software. Every effort was made to ensure accuracy, however, inadvertently computerized baseball inspector mistakes may be present. Appropriate healthcare PPE [...] content not included)... Normal [facility] Comment on above: Result Comment: Elec [...] added (diluted fruit juice). ? Eat bland, luhj-to-bnspnr foods in small amounts as you are able. These foods include bananas, applesauce, rice, lean meats, toast, and crackers. ? Avoid fluids that contain a lot of sugar or caffeine, such as energy drinks, sports drinks, and soda. ? Avoid alcohol. ? Avoid spicy or fatty foods. General instructions ? Take bvou-dcc-lrqiolk and prescription medicines only as told by your health care provider. ? Drink enough fluid to keep your urine pale yellow. ? Wash your hands often using soap and water. If soap and water are not available, use hand ice platform supervisor. ? Make sure that all people [...] and drinking to prevent dehydration. ? Take hoql-gwv-egqmbus and prescription medicines only as told by [...] Reviewed: 04/18/2019 Elsevier Patient Education ? 2019 [employer]. Normal [facility] ED Patient Summaryon 022 ED Patient Summary [address] [address] Patient Discharge Instructions Person Information Name: MEENA LUCERO Age: 26 Years Arrival Date: 09/03/2022 14:27:10 Discharge Diagnosis: Nausea & vomiting Primary Care Physician: Charli LOPEZ Provider Information Primary Provider: Evan Moyer DO Advanced Education Intern:Neil Meza PA-C The exam and treatment you received in the Emergency Department were for an urgent problem and are not intended as complete care. It is important that you follow up with a doctor, nurse practitioner, or physician?s engineer third assistant for ongoing care. If your symptoms become worse or you do not improve as expected and you are unable to reach your usual health care provider, you should return to the Emergency Department. We are available 24 hours a day. JACEKSHAHEENMEENA Lissa has been given the following list of patient education materials, prescriptions and follow-up instructions: Follow-up Instructions: With: Address: When: Charli Gaines [place], [place] [id number] Business (1) In 3 days 09/06/2022 In the event that this physician does not participate in your insurance network, please consult with your insurance company to find a nearby participating provider. Patient Education Materials: Nausea and Vomiting, Adult A MESSAGE TO ALL PATIENTS REGARDING OPIOIDS PRESCRIPTION OPIOIDS: WHAT YOU NEED TO KNOW Prescription opioids can be used to help relieve ejgyajsd-hz-eblljo pain and are often prescribed following a [...] struggling with addiction, tell your health healthcare sales representative and ask for guidance or call [facility]?S National Helpline at 6-415-258-LNIG. b Source: Dep (more content not included)... Normal [facility] U BetaHcg Qualon 09-03-2022 HCG.beta subunit (U) [Moles/Vol] Negative Normal [facility] Comment on above: Performed By: #### 2 [id number], [id number], [id number] ####[facility] [address] [place] [address] UA With Cult Reflexon 2021 Bacteria LM Ql (Urine sed) 2+ /HPF Abnormal Trace [facility] Comment on above: Performed By: #### 2 [id number], [id number], [id number] ####[facility] [address] [place] [address] Bilirubin Ql (U) Negative Normal Negative [facility] Comment on above: Performed By: #### 2 [id number], [id number], 8638503 ####[facility] [address] [place] [address] Clarity (U) CLEAR Normal Clear [facility] Comment on above: Performed By: #### 2 [id number], [id number], 4081550 ####[facility] [address] [place] [address] Color (U) YELLOW Normal Yellow [facility] Comment on above: Performed By: #### 2 6693039, 31687999, 2949620 ####[facility] [address] [place] [address] Epithelial cells.squamous LM.HPF (Urine sed) [#/Area] 5-8 Normal 0-2 [facility] Comment on above: Performed By: #### 2 [id number], 46263461, 5605457 ####[address] [address] Glucose Test strip (U) [Mass/Vol] Negative Normal Negative [facility] Comment on above: Performed By: #### 2 [id number], 03093094, 6598652 ####[address] [address] Hemoglobin Ql (U) Negative Normal Negative [facility] Comment on above: Performed By: #### 2 7451496, 28836619, 9465846 ####[address] [address] Ketones (U) [Mass/Vol] Negative Normal Negative [facility] Comment on above: Performed By: #### 2 1906841, 75918747, 3201125 ####[place] [id number] Herald.plasma/Lit hium.RBC (Bld) [Mass ratio] 0-3 Normal 0-3 [facility] Comment on above: Performed By: #### 2 6279071, 64003864, 2818362 ####[facility] [address] [place] [address] Mucus Ql (Urine sed) 1+ Normal [facility] Comment on above: Performed By: #### 2 1854836, 74152201, 8356037 ####[address] [address] Nitrite Ql (U) Negative Normal Negative [facility] Comment on above: Performed By: #### 2 2479943, 86302356, 3400986 ####[address] [address] pH (U) 5.5 [pH] Invalid Interpretation Code 5.0-9.0 [facility] Comment on above: Performed By: #### 2 6068597, 68480307, 5224987 ####[address] [address] Protein (U) [Mass/Vol] Negative Normal Negative [facility] Comment on above: Performed By: #### 2 2512387, 82156051, 8865017 ####[address] [address] Specific gravity (U) [Rel density] >=1.030 Invalid Interpretation Code 1.005-1.030 [facility] Comment on above: Performed By: #### 2 6585932, 37563859, 2340064 ####[address] [address] Type of Urine collection method Clean Catch Normal [facility] Comment on above: Performed By: #### 2 4240916, 47118029, 2892804 ####[place] [address] Urobilinogen Qn (U) 0.2 {Elver'U}/dL Normal 0.0-1.0 [facility] Comment on above: Performed By: #### 2 1266920, 79975409, 5964576 ####[address] [address] WBC Auto Ql (U) Negative Normal Negative [facility] Comment on above: Performed By: #### 2 1839935, 65182049, 5540164 ####[address] [address] WBC LM.HPF (Urine sed) [#/Area] 0-5 Normal 0-5 [facility] Comment on above: Performed By: #### 2 [id number], 22976362, 4202960 ####[address] [address] XR WRIST LEFT (MIN 3 VIEWS)o n 06-19-2022 Normal left wrist. [facility] EXAM: XR WRIST LEFT (MIN 3 VIEWS) HISTORY: M25.532. 26-year-old female, left wrist pain. COMPARISON: None. TECHNIQUE: Three views left wrist. FINDINGS: The radiocarpal joint and wrist are normal. Normal scapholunate distance. No erosion or chondrocalcinosis. [facility] Mauro Anton Jr., MD - 06/19/2022 EXAM: XR WRIST LEFT (MIN 3 VIEWS) HISTORY: M25.532. 26-year-old female, left wrist pain. COMPARISON: None. TECHNIQUE: Three views left wrist. FINDINGS: The radiocarpal joint and wrist are normal. Normal scapholunate distance. No erosion or chondrocalcinosis. IMPRESSION: Normal left wrist. 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 pain has been constant for about 1 week now. History of Present Illness Pt [facility] to [facility]. Previous pt of [facility] in [place]. Concerned today about left wrist pain which started about 1 yr ago; pain has worsened over the last week. 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 Carries everything in her left hand. Right handed. Pain location: medial martinez hand, radiating to wrist Pain description: shooting Pain rated: 2/10, 7/10 with certain movements. 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 Negative Tinels and DeQuervians. + Phalens. Health And Fitness Professor strength equal. Neurologic: Cranial nerves II-XII grossly intact. Skin: [place], warm and dry. No rashes, ulcerations, or suspicious lesions noted on visible/exposed skin. Mental status: alert and oriented x 3. Normal mood and affect, normal behavior for age. Assessment/Plan 1. Carpal tunnel syndrome on left (G56.02: Carpal tunnel syndrome, left upper limb) Discussed options. Will treat with Ibuprofen, dosing and s/e. reviewed. Declines PT. [place] refer to specialist near [place], advised she will be called to set up appt. Continue to wear wrist brace. Avoid heavy lifting or exacerbating activities. Ordered: ibuprofen, 800 mg = 1 tab(s), Oral, TID, Take with food. Not to exceed 3200 mg/day, X 10 day(s), # 30 tab(s), Refills(s) 1, Pharmacy: [id number], 170, cm, 06/01/22 12:55:00 EDT, Height/Length Dosing, 91.3, kg, 06/01/22 12:55:00 EDT, Weight Dosing [facility] [place] Ambulatory Referral 2. BMI 31.0-31.9,adult (Z68.31: Body mass index [BMI] 31.0-31.9, adult) The standard range for ages 18 and older is >=18.5 and < 25 kg/m2. Your BMI today was above this range, this falls in the obese category and there are medical benefits to weight loss. We can offer counselling, referral, and/or medical support in addressing this problem. Visit [employer] for useful information to help make better [...] content not included)... Normal [facility] Comment on above: Result Comment: Elec tronically Signed By: Meena Carl CNP.[email or web address]\Date and Time Signed: 06/01/22 13:16 EDT Patient [...] height. This can be done either in [place] ([place] or metric measurements. Note that charts are available to help you find your BMI quickly and easily without having to do these calculations yourself. To calculate your BMI in [place] ([place] measurements, your health care provider will: [...] problems. ? BMI can be measured using [place] measurements or metric measurements. ? To interpret [...] 07/20/2005 Document Revised: 10/21/2018 Document Reviewed: 09/21/2018 [employer] Patient Education ? 2020 [employer] [facility] Carpal Tunnel Syndrome Carpal tunnel syndrome [...] Having a job, such as being a heat treatment technician or a hotel dining room cashier, that requires you to repeatedly move [...] content not included)... Normal [facility] Physician Referralon 022 Physician Referral [id number] Normal [facility] Vital Signs Date Time Vital Sign Value Performing Clinician Ayad lozoya 10-17-2024 13:10-0500 Body mass index (BMI) [Ratio] 35.35 kg/m2 Gary Enriqueta DO Work Phone: [facility] 10-17-2024 13:10-0500 Body weight 96.34 kg Gary Enriqueta DO Work Phone: [facility] 10-17-2024 13:10-0500 Diastolic blood pressure 70 mm[Hg] Gary Enriqueta DO Work Phone: [facility] 10-17-2024 13:10-0500 Systolic blood pressure 120 mm[Hg] Gary Enriqueta DO Work Phone: [facility] 09-18-2024 11:15-0400 Body mass index (BMI) [Ratio] 35.2 kg/m2 Gary Enriqueat DO Work Phone: [facility] 09-18-2024 11:15-0400 Body weight 95.94 kg Gary Enriqueta DO Work Phone: [facility] 09-18-2024 11:15-0400 Diastolic blood pressure 74 mm[Hg] Gary Enriqueta DO Work Phone: [facility] 09-18-2024 11:15-0400 Systolic blood pressure 122 mm[Hg] Gary Robison DO Work Phone: [facility] 08-18-2024 10:28-0400 Body mass index (BMI) [Ratio] 34.95 kg/m2 [facility] 08-18-2024 10:28-0400 Body weight 95.25 kg [facility] Nurse [facility] 01-10-2023 14:29-0500 Body height 165.1 cm Fei Canales MD Work Phone: [employer] 01-10-2023 14:29-0500 Body mass index (BMI) [Ratio] 34.35 kg/m2 Fei Canales MD Work Phone: [employer] 01-10-2023 14:29-0500 Body temperature 98.49 [degF] Fei Canales MD Work Phone: [employer] 01-10-2023 14:29-0500 Body weight 93.62 kg Fei Canales MD Work Phone: [employer] 01-10-2023 14:29-0500 Diastolic blood pressure 79 mm[Hg] Fei Canales MD Work Phone: [employer] 01-10-2023 14:29-0500 Heart rate 75 /min Fei Canales MD Work Phone: [employer] 01-10-2023 14:29-0500 Respiratory rate 16 /min Fei Canales MD Work Phone: [employer] 01-10-2023 14:29-0500 SaO2% (BldA) [Mass fraction] 99 % Fei Canales MD Work Phone: [employer] 01-10-2023 14:29-0500 Systolic blood pressure 140 mm[Hg] Fei Canales MD Work Phone: [employer] 12-08-2022 11:51-0500 Blood Pressure Location Cordellorin SUSAN [facility] 12-08-2022 11:51-0500 Body temperature 98.24 [degF] Keyon BROWN [facility] 12-08-2022 11:51-0500 Diastolic blood pressure 78 mm[Hg] Keyon BROWN [facility] 12-08-2022 11:51-0500 Heart rate 84 /min Keyon BROWN [facility] 12-08-2022 11:51-0500 Respiratory rate 16 /min Keyon BROWN [facility] 12-08-2022 11:51-0500 SaO2% (BldA) [Mass fraction] 100 % Keyon BROWN [facility] 12-08-2022 11:51-0500 Systolic blood pressure 114 mm[Hg] Keyon BROWN [facility] 12-04-2022 16:32-0500 Body mass index (BMI) [Ratio] 33.66 kg/m2 Jason Tracy MD Work Phone: [facility] [email or web address] 12-04-2022 16:32-0500 Body temperature 98.49 [degF] Jason Tracy MD Work Phone: [facility] 12-04-2022 16:32-0500 Body weight 91.76 kg Jason Tracy MD Work Phone: [facility] [email or web address] 12-04-2022 16:32-0500 Diastolic blood pressure 75 mm[Hg] Jason Tracy MD Work Phone: [facility] [email or web address] 12-04-2022 16:32-0500 Heart rate 91 /min Jason Tracy MD Work Phone: [facility] 12-04-2022 16:32-0500 Respiratory rate 16 /min Jason Tracy MD Work Phone: [facility] 12-04-2022 16:32-0500 SaO2% (BldA) [Mass fraction] 99 % Jason Tracy MD Work Phone: [facility] 12-04-2022 16:32-0500 Systolic blood pressure 123 mm[Hg] Jason Tracy MD Work Phone: [facility] 06-01-2022 12:50-0400 Blood Pressure Location Meena Carl [facility] 06-01-2022 12:50-0400 Body temperature 96.98 [degF] Meena Aguilarell [facility] 06-01-2022 12:50-0400 Diastolic blood pressure 60 mm[Hg] Meena Aguilarell [facility] 06-01-2022 12:50-0400 Heart rate 88 /min Meena Aguilarell [facility] 06-01-2022 12:50-0400 SaO2% (BldA) [Mass fraction] 97 % Meenazachariah Aguilarell [facility] 06-01-2022 12:50-0400 Systolic blood pressure 122 mm[Hg] Meena Carl [facility] 09-14-2021 10:15-0400 Body mass index (BMI) [Ratio] 31.62 kg/m2 Keyon Wilkinson MD Work Phone: [employer] Work Phone: 09-14-2021 10:15-0400 Body weight 86.18 kg Keyon Wilkinson MD Work Phone: [employer] Work Phone: 09-14-2021 10:14-0400 Body height 165.1 cm Keyon Wilkinson MD Work Phone: [employer] Work Phone: 09-14-2021 10:14-0400 Body temperature 98.2 [degF] Keyon Wilkinson MD Work Phone: [employer] Work Phone: 09-14-2021 10:14-0400 Diastolic blood pressure 93 mm[Hg] Keyon Wilkinson MD Work Phone: [employer] Work Phone: 09-14-2021 10:14-0400 Heart rate 91 /min Keyon Wilkinson MD Work Phone: [employer] Work Phone: 09-14-2021 10:14-0400 Respiratory rate 20 /min Keyon Wilkinson MD Work Phone: [employer] Work Phone: 09-14-2021 10:14-0400 SaO2% (BldA) [Mass fraction] 96 % Keyon Wilknison MD Work Phone: [employer] Work Phone: 09-14-2021 10:14-0400 Systolic blood pressure 131 mm[Hg] Keyon Wilkinson MD Work Phone: [employer] Work Phone: Encounters Encounter Date Encounter Type Care Provider Facility Start: 10-17-2024 End: 10-17-2024 Subsequent hospital visit by physician John Partida DO Work Phone: [facility] Start: 10-17-2024 End: 10-29-2024 Clinisync Result Encounter Gary Barcenaso DO Work Phone: [facility] Unsolicited Start: 10-17-2024 End: 10-18-2024 External Result Encounter Gary Barcenaso DO Work Phone: [facility] Unsolicited Start: 10-17-2024 End: 10-29-2024 External Result Encounter Gary Barcenaso DO Work Phone: [facility] Unsolicited Start: 10-17-2024 End: 10-17-2024 Office outpatient visit 15 minutes Gary Barcenaso DO Work Phone: [facility] Comment on above: Screening, , for anatomic survey; 15 weeks gestation of ; Second trimester ; Encounter for gynecological examination without abnormal finding; Vaginal discharge; STD exposure; Nausea and vomiting during Start: 10-17-2024 End: 10-17-2024 Patient encounter status Gary Barcenaso DO Work Phone: [facility] Start: 10-12-2024 End: 10-12-2024 ambulatory [facility] Start: 10-12-2024 End: 10-12-2024 Subsequent hospital visit by physician John Partida DO Work Phone: [facility] Comment on above: Arrived Start: 10-10-2024 End: 10-10-2024 [facility] Start: 10-10-2024 End: 10-10-2024 Subsequent hospital visit by physician John Partida DO Work Phone: [facility] Comment on above: Arrived Start: 10-04-2024 End: 10-04-2024 Subsequent hospital visit by physician John Partida DO Work Phone: [facility] Start: 10-04-2024 [facility] Start: 09-18-2024 End: 09-18-2024 Office outpatient visit 15 minutes Gary Barcenaso DO Work Phone: [facility] Comment on above: First trimester preg wily; 11 weeks gestation of ; Encounter for sterilization education Start: 09-18-2024 End: 09-18-2024 ambulatory GARY ENRIQUETA Not Available Start: 09-11-2024 End: 09-11-2024 Clinisync Result Encounter Gary Enriqueta DO Work Phone: [facility] Unsolicited Start: 09-11-2024 End: 09-11-2024 Clinisync Result Encounter Gary Enriqueta DO Work Phone: [facility] Unsolicited Start: 08-18-2024 End: 08-18-2024 ambulatory [facility] Enriqueta Nurse [facility] Comment on above: GA: 6w5d Start: 08-07-2024 End: 08-07-2024 Clinisync Result Encounter Gary Enriqueta DO Work Phone: [facility] Unsolicited Start: 08-07-2024 End: 08-07-2024 Clinisync Result Encounter Gary Enriqueta DO Work Phone: [facility] Unsolicited Start: 08-07-2024 End: 08-07-2024 ambulatory [facility] Start: 08-07-2024 End: 08-07-2024 Subsequent hospital visit by physician Óscar Villagran DNP Work Phone: [facility] Start: 08-02-2024 End: 08-02-2024 Clinisync Result Encounter Gary Enriqueta DO Work Phone: [facility] Unsolicited Start: 08-02-2024 End: 08-02-2024 Clinisync Result Encounter Gary Enriqueta DO Work Phone: [facility] Unsolicited Start: 08-02-2024 End: 08-02-2024 ambulatory [facility] Start: 07-31-2024 End: 07-31-2024 Clinisync Result Encounter Gary Enriqueta DO Work Phone: [facility] Unsolicited Start: 07-31-2024 End: 07-31-2024 Clinisync Result Encounter Gary Enriqueta DO Work Phone: [facility] Unsolicited Start: 07-31-2024 End: 07-31-2024 [facility] Start: 07-31-2024 End: 07-31-2024 Subsequent hospital visit by physician Óscar Villagran DNP Work Phone: [facility] Start: 07-29-2024 End: 07-29-2024 Clinisync Result Encounter Gary Enriqueta DO Work Phone: [facility] Unsolicited Start: 07-29-2024 End: 07-29-2024 Clinisync Result Encounter Gary Enriqueta DO Work Phone: [facility] Unsolicited Start: 07-29-2024 End: 07-29-2024 [facility] Start: 07-27-2024 End: 07-27-2024 Clinisync Result Encounter Gary Enriqueta DO Work Phone: [facility] Unsolicited Start: 07-27-2024 End: 07-27-2024 Clinisync Result Encounter Gary Enriqueta DO Work Phone: [facility] Unsolicited Start: 07-27-2024 End: 07-27-2024 ambulatory [facility] Start: 07-27-2024 End: 07-27-2024 Subsequent hospital visit by physician John Partida DO Work Phone: [facility] Comment on above: Arrived Start: 07-25-2024 End: 07-25-2024 [facility] Start: 07-21-2024 End: 07-21-2024 [facility] Start: 07-19-2024 End: 07-19-2024 [facility] Start: 07-13-2024 End: 07-13-2024 Subsequent hospital visit by physician John Partida DO Work Phone: [facility] Comment on above: Arrived Start: 07-13-2024 End: 07-13-2024 ambulatory [facility] Start: 07-06-2024 End: 07-06-2024 Subsequent hospital visit by physician John Partida DO Work Phone: [facility] Start: 06-29-2024 End: 06-29-2024 ambulatory [facility] Start: 06-29-2024 End: 06-29-2024 Subsequent hospital visit by physician John Partida DO Work Phone: [facility] Comment on above: Arrived Start: 06-26-2024 End: 06-26-2024 [facility] Start: 06-22-2024 End: 06-22-2024 [facility] Start: 06-20-2024 End: 06-20-2024 [facility] Start: 06-16-2024 End: 06-16-2024 ambulatory [facility] Start: 06-14-2024 End: 06-14-2024 [facility] Start: 06-08-2024 End: 06-08-2024 ambulatory GARY [facility] Start: 06-08-2024 End: 06-08-2024 ambulatory [facility] Start: 05-22-2024 End: 05-24-2024 ambulatory [facility] Start: 05-22-2024 End: 05-24-2024 Subsequent hospital visit by physician Óscar Villagran DNP Work Phone: [facility] Start: 03-06-2024 End: 03-06-2024 [facility] Start: 03-04-2024 End: 03-04-2024 [facility] Start: 03-04-2024 [facility] Start: 12-08-2023 End: 12-08-2023 ambulatory GARY ENRIQUETA Not Available Start: 10-25-2023 End: 10-25-2023 ambulatory GARY ENRIQUETA Not Available Start: 10-18-2023 End: 10-18-2023 ambulatory GARY ENRIQUETA Not Available Start: 10-07-2023 End: 10-07-2023 ambulatory GARY ENRIQUETA Not Available Start: 04-09-[address] NONE LISTED REQUEST Facility: Start: 01-29-2023 End: 01-31-2023 Subsequent hospital visit by physician [facility] Additional Xray At [facility] Comment on above: Other closed fractur e of proximal end of right fibula with routine healing, subsequent encounter Start: 01-29-2023 End: 01-31-2023 Subsequent hospital visit by physician Keyon Brown MD Work Phone: [facility] Start: 01-10-2023 End: 01-10-2023 Emergency department patient visit Fei Canales MD Work Phone: [facility] ED Comment on above: Injury of right ankl e, initial encounter (Primary Dx) Start: 12-08-2022 End: 12-09-2022 ambulatory Keyon BROWN Facility:[facility] Start: 12-08-2022 End: 12-08-2022 Patient encounter procedure Keyon BROWN 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 MACHINE OPERATOR HELPER Meena Carl Faci lity:[facility] Start: 09-14-2021 End: 09-14-2021 Emergency department patient visit Keyon Wilkinson MD Work Phone: [facility] Comment on above: Subacute bronchitis (Primary Dx) Procedures Date Procedure Procedure Detail Performing Clinician Start: 10-17-2024 Urnls dip stick/tabl et rgnt non-auto w/o micrscp Gary Enriqueta DO Work Phone: Start: 10-17-2024 RECURRENT VAGINITIS (HTRX) Gary Enriqueta DO Work Phone: Start: 10-17-2024 IGP,APTIMA HPV,AGE GDLN Agry Enriqueta DO Work Phone: Start: 09-18-2024 Urnls dip stick/tabl et rgnt non-auto w/o micrscp Gary Enriqueta DO Work Phone: Start: 09-11-2024 BOX TEST Gary Fazi o DO Work Phone: Start: 08-18-2024 End: 08-18-2024 Urnls dip stick/tablet rgnt non-auto w/o micrscp Gary Enriqueta DO Work Phone: Start: 08-07-2024 ALL HCG, QUANTITATIVE C orey Enriqueta DO Work Phone: Start: 08-07-2024 Gonadotropin chorion ic quantitative Gary Robison MD Work Phone: Start: 08-02-2024 ALL HCG, QUANTITATIVE C orey Enriqueta DO Work Phone: Start: 07-31-2024 ALL HCG, QUANTITATIVE C marco Robison DO Work Phone: Start: 07-31-2024 Gonadotropin chorion ic quantitative Gary Robison MD Work Phone: Start: 07-29-2024 ALL HCG, QUANTITATIVE C marco Robison DO Work Phone: Start: 07-27-2024 ALL HCG SERUM,QUALITATIVE Gary Robison DO Work Phone: Start: 05-26-2023 Cytp cerv/vag auto t hin layer prep mnl screen Gary Robison DO Work Phone: Start: 01-29-2023 Radex ankle complete [...] 60 yrs+ (1 - 1-dose 75+ series) [facility] Start: 2054 Respiratory Syncytia l Virus (RSV) or age 60 yrs+ (1 - 1-dose 60+ series) Respiratory Syncytial Virus (RSV) or age 60 yrs+ (1 - 1-dose 60+ series) [facility] Start: 03-14-2025 Depression Screen Depression Screen [facility] Start: 11-20-2024 End: 11-20-2024 Patient encounter procedure 11/20/2024 9:20 AM EST Routine [facility] [address] [place] [id number] Genevieve Calderon PA [address] [place] [address] [facility] Start: 11-20-2024 End: 11-20-2024 Professional / ancillary services management 11/20/2024 8:00 AM EST Ancillary Procedure [facility] [address] [place], [place] [address] [place] [id number] [facility] Start: 10-17-2024 End: 01-17-2025 Alpha fetoprotein, maternal Alpha fetoprotein, maternal Lab Routine 15 weeks gestation of Expected: 10/17/2024 (Approximate), Expires: 01/17/2025 [facility] Work Phone: Comment on above: Expected: 10/17/2024 (Approximate), Expires: 01/17/2025 Start: 10-17-2024 End: 10-17-2025 US for US OB ANATOMY SINGLE W US OB CERVICAL LENGTH Imaging Routine Screening, , for anatomic survey 15 weeks gestation of Expected: 10/17/2024 (Approximate), Expires: 10/17/2025 [facility] Comment on above: Expected: 10/17/2024 (Approximate), Expires: 10/17/2025 Start: 10-17-2024 End: 10-17-2024 Patient encounter procedure 10/17/2024 10:50 AM EST Routine [facility] [address] [facility] [place] [id number] Gary Robison DO [address] [place] [address] [facility] Start: 10-17-2024 End: 10-17-2024 Patient encounter procedure 10/17/2024 8:15 AM EST Appointment [facility] [address] [place] [address] John Partida, DO [address] [place] [address] Trinity Browning 16 of 30 Sacral Pain, [facility] Comment on above: 16 of 30 Sacral Pain , Start: 10-12-2024 End: 10-12-2024 Patient encounter procedure 10/12/2024 8:00 AM EST Appointment [facility] [address] [place] [address] John Partida, DO [address] [place] [address] Clara Castrejon, PT 15 of 30 Sacral Pain, [facility] Comment on above: 15 of 30 Sacral Pain , Start: 10-10-2024 End: 10-10-2024 Patient encounter procedure 10/10/2024 9:30 AM EST Appointment [facility] [address] [place] [address] John Partida, DO [address] [place] [address] Clara Castrejon, PT 14 of 30 Sacral Pain, [facility] Comment on above: 14 of 30 Sacral Pain , Start: 09-18-2024 End: 09-18-2024 Patient encounter procedure 09/18/2024 10:40 AM EDT Routine [facility] [address] [place] [place] [id number] Gary Robison DO [address] [place] [address] [facility] Start: 08-18-2024 End: 08-18-2025 ABO/Rh ABO/Rh Lab Routine Missed menses , unspecified gestational age Expected: 08/18/2024 (Approximate), Expires: 08/18/2025 [facility] Comment on above: Expected: 08/18/2024 (Approximate), Expires: 08/18/2025 Start: 08-18-2024 End: 08-18-2025 Blood type and Indirect antibody screen panel - Blood Type and screen Lab Routine Missed menses , unspecified gestational age Expected: 08/18/2024 (Approximate), Expires: 08/18/2025 [facility] Work Phone: Comment on above: Expected: 08/18/2024 (Approximate), Expires: 08/18/2025 Start: 08-18-2024 End: 08-18-2025 Drugs of abuse panel - Urine by Screen method Rapid drug screen, urine Lab Routine , unspecified gestational age Encounter for supervision of normal first in first trimester Expected: 08/18/2024 (Approximate), Expires: 08/18/2025 [facility] Comment on above: Expected: 08/18/2024 (Approximate), Expires: 08/18/2025 Start: 08-18-2024 End: 08-18-2025 US Pelvis transvaginal US OB transvaginal Imaging Routine Missed menses Expected: 08/18/2024 (Approximate), Expires: 08/18/2025 [facility] Comment on above: Expected: 08/18/2024 (Approximate), Expires: 08/18/2025 Start: 08-18-2024 End: 08-18-2024 ambulatory 08/18/2024 9:30 AM EDT Initial [facility] [address] [place] [address] [facility] Start: 08-18-2024 End: 08-18-2024 Professional / ancillary services management 08/18/2024 9:00 AM EDT Ancillary Procedure [facility] [address] [place] [address] [facility] Start: 07-23-2024 COVID-19 Vaccine ( season) COVID-19 Vaccine ( season) [facility] Start: 07-23-2024 Influenza vaccination Influenza Vacc ine (#1) [facility] Start: 07-19-2024 End: 07-19-2024 Patient encounter procedure 07/19/2024 8:00 AM EDT Appointment [facility] [address] [facility] [place] [address] John Partida, DO [address] [place] [address] Asia Mix, PT [address] [place] [address] [facility] Start: 07-13-2024 End: 07-13-2024 Patient encounter procedure [facility] Start: 07-06-2024 End: 07-06-2024 Patient encounter procedure 07/06/2024 9:00 AM EDT Appointment [facility] [address] [place] [address] John Partida, DO [address] [place] [address] Asia Mix, PT [address] [place] [address] [facility] Start: 06-22-2024 Influenza vaccination Flu vaccine (# 1) [facility] Start: 07-23-2023 COVID-19 Vaccine ( season) COVID-19 Vaccine ( season) [facility] Start: 07-23-2022 Influenza vaccination Flu vaccine (# 1) [facility] Start: 06-22-2022 Influenza vaccination Flu vaccine (# 1) [facility] Start: 07-23-2021 Influenza vaccination Flu vaccine (# 1) [facility] Work Phone: Start: 08-02-2017 DTaP/Tdap/Td vaccine (2 - Td or Tdap) DTaP/Tdap/Td vaccine (2 - Td or Tdap) [facility] [employer] Start: 2015 Screening for malign ant neoplasm of cervix Pap smear [facility] Start: 2013 DTaP/Tdap/Td vaccine (1 - Tdap) DTaP/Tdap/Td vaccine (1 - Tdap) [facility] Phone: Start: 2013 Hepatitis B vaccine (1 of 3 - 19+ 3-dose series) Hepatitis B vaccine (1 of 3 - 19+ 3-dose series) [facility] Start: 2012 Hepatitis C screening Hepatitis C sc reen [facility] Start: 2009 HIV screening HIV screen [facility] [employer] Start: 2006 COVID-19 Vaccine (1) COVID-19 Vaccin e (1) [facility] Phone: Start: 2006 Depression Screen Depression Screen [facility] Start: 2005 HPV vaccine (1 - 2-d ose series) HPV vaccine (1 - 2-dose series) [facility] Phone: Start: 1998 Varicella vaccine (2 of 2 - 2-dose childhood series) Varicella vaccine (2 of 2 - 2-dose childhood series) [facility] Start: 1995 Varicella vaccine (1 of 2 - 2-dose childhood series) Varicella vaccine (1 of 2 - 2-dose childhood series) [facility] Phone: Start: 05-30-1995 COVID-19 Vaccine (#1) COVID-19 Vacci ne (#1) [facility] Start: 1994 Hepatitis B vaccine (1 of 3 - 3-dose series) Hepatitis B vaccine (1 of 3 - 3-dose series) [facility] Start: 1994 Hepatitis C screening Hepatitis C sc reen [facility] Phone: Bacteria identified in Urine by Culture Urine culture Microbiology Routine Missed menses Ordered: 08/18/2024 [facility] Comment on above: Ordered: 08/18/2024 CBC W Auto Different ial panel - Blood CBC and differential Lab Routine Missed menses , unspecified gestational age Ordered: 08/18/2024 [facility] Comment on above: Ordered: 08/18/2024 CHLAMYDIA TRACHOMATI S (GENITO/STI) CHLAMYDIA TRACHOMATIS (GENITO/STI) Lab Routine Vaginal discharge STD exposure Ordered: 10/17/2024 [facility] Comment on above: Ordered: 10/17/2024 Cytology Cervical or vaginal smear or scraping study Pap Smear Pathology and Cytology Routine Encounter for gynecological examination without abnormal finding Ordered: 10/17/2024 [facility] Comment on above: Ordered: 10/17/2024 Hemoglobin A1c/Hemoglobin.total in Blood Hemoglobin A1c Lab Routine Missed menses , unspecified gestational age Ordered: 08/18/2024 [facility] Comment on above: Ordered: 08/18/2024 Hepatitis B virus surface Ag [Presence] in Serum or Plasma by Immunoassay Hepatitis B surface antigen Lab Routine Missed menses , unspecified gestational age Ordered: 08/18/2024 [facility] Comment on above: Ordered: 08/18/2024 Hepatitis C virus Ab [Presence] in Serum or Plasma by Immunoassay Hepatitis C antibody Lab Routine Missed menses , unspecified gestational age Ordered: 08/18/2024 [facility] Comment on above: Ordered: 08/18/2024 HIV-1/HIV-2 antigen/antibody combination immunoassay HIV-1 and HIV-2 antibodies Lab Routine Missed menses , unspecified gestational age Ordered: 08/18/2024 [facility] Comment on above: Ordered: 08/18/2024 Neisseria gonorrhoea e DNA [Presence] in Unspecified specimen by WADE with probe detection Neisseria gonorrhea DNA probe, direct Lab Routine Vaginal discharge STD exposure Ordered: 10/17/2024 [facility] Comment on above: Ordered: 10/17/2024 Reagin Ab [Presence] in Serum by RPR RPR Lab Routine Missed menses , unspecified gestational age Ordered: 08/18/2024 [facility] Comment on above: Ordered: 08/18/2024 Rubella antibody, IgG Rubella an tibody, IgG Lab Routine Missed menses , unspecified gestational age Ordered: 08/18/2024 [facility] Comment on above: Ordered: 08/18/2024 SURESWAB(R) ADVANCED VAGINITIS PLUS, TMA SURESWAB(R) ADVANCED VAGINITIS PLUS, TMA Pathology and Cytology Routine Vaginal discharge STD exposure Ordered: 10/17/2024 [facility] Comment on above: Ordered: 10/17/2024 Immunizations Immunization Date Immunization Notes Care Provider Jaci masterson 02-16-2008 Hep A, unspecified formulation Meena Aguilarell [facility] 08-02-2007 Hep A, unspecified formulation Meena Carl [facility] 08-02-2007 meningococcal ACWY vaccine, unspecified formulation Meena Carl [facility] 08-02-2007 tetanus toxoid, reduced diphtheria toxoid, and acellular pertussis vaccine, adsorbed Meena Carl [facility] 08-19-2000 DTaP, unspecified formulation Meena Carl [facility] 08-19-2000 measles, mumps and rubella virus vaccine Meena Carl [facility] 10-10-1997 varicella virus vaccine Meena Carl [facility] 03-09-1996 DTaP, unspecified formulation Meena Carl [facility] 03-09-1996 Hib, unspecified formulation Meena Carl [facility] 03-09-1996 measles, mumps and rubella virus vaccine Meena Carl [facility] 06-11-1995 DTP-Hib Meena Carl [facility] 06-11-1995 hepatitis B vaccine, pediatric or pediatric/adolescent dosage Meena Carl [facility] 04-05-1995 DTP-Hib Meena Carl [facility] 02-01-1995 DTP-Hib Meena Carl [facility] 01-04-1995 hepatitis B vaccine, pediatric or pediatric/adolescent dosage Meena Carl [facility] 1994 hepatitis B vaccine, pediatric or pediatric/adolescent dosage Meena Carl [facility] NEGATED: Highlighted row has not occurred!12-08-2022 influenza virus vaccine, unspecified formulation Keyon BROWN [facility] NEGATED: Highlighted row has not occurred!12-08-2022 SARS-CoV-2 mRNA (tozinameran 5y-11y) vaccine Keyon BROWN [facility] Payers Date Payer Category Payer Medicaid [employer] [place] [id number] 2022-Present [address] [place] [address] [id number] 2022 Private Health Insurance [facility] MEDICAID [id number] 2014 Unknown [id number] 1.2.840.204542.1.13.239.2. 7.3.330523.315 1994 Unknown [id number] 2.16.840.1.875524.3.579.2. 727 1994 Unknown [id number] 2.16.840.1.111865.3.579.2. 727 1994 Unknown [id number] 2.16.840.1.397124.3.579.2. 727 1994 Unknown [id number] 2.16.840.1.576069.3.579.2. 727 1994 Unknown [id number] 2.16.840.1.045837.3.579.2. 593 1994 Unknown [id number] 2.16.840.1.237630.3.579.2. 1259 1994 Unknown [id number] 2.16.840.1.254463.3.579.2. 9 1994 Unknown [id number] 2.16.840.1.089605.3.579.2. 1259 1994 Unknown [id number] 2.16.840.1.160221.3.579.2. 1259 1994 Unknown [id number] 2.16.840.1.824504.3.579.2. 1259 1994 Unknown [id number] 2.16.840.1.671509.3.579.2. 1259 1994 Unknown [id number] 2.16.840.1.055945.3.579.2. 1259 1994 Unknown [id number] 2.16.840.1.815985.3.579.2. 174 1994 Unknown [id number] 2.16.840.1.104362.3.579.2. 174 1994 Unknown [id number] 2.16.840.1.428300.3.579.2. 174 1994 Unknown [id number] 2.16.840.1.042131.3.579.2. 174 1994 Unknown [id number] 2.16.840.1.950887.3.579.2. 174 1994 Unknown [id number] 2.16.840.1.563790.3.579.2. 174 1994 Unknown [id number] 2.16.840.1.572805.3.579.2. 174 1994 Unknown [id number] 2.16.840.1.381784.3.579.2. 174 1994 Unknown [id number] 2.16.840.1.965446.3.579.2. 174 1994 Unknown [id number] 2.16.840.1.933466.3.579.2. 174 1994 Unknown [id number] 2.16.840.1.939078.3.579.2. 174 1994 Unknown [id number] 2.16.840.1.646665.3.579.2. 174 1994 Unknown [id number] 2.16.840.1.231961.3.579.2. 174 1994 Unknown [id number] 2.16.840.1.181555.3.579.2. 174 1994 Unknown [id number] 2.16.840.1.771502.3.579.2. 174 1994 Unknown [id number] 2.16.840.1.054457.3.579.2. 174 1994 Unknown [id number] 2.16.840.1.844491.3.579.2. 174 1994 Unknown [id number] 2.16.840.1.306396.3.579.2. 174 1994 Unknown [id number] 2.16.840.1.223716.3.579.2. 174 1994 Unknown [id number] 2.16.840.1.245741.3.579.2. 174 1994 Unknown [id number] 2.16.840.1.890836.3.579.2. 174 1994 Unknown [id number] 2.16.840.1.789140.3.579.2. 174 1994 Unknown [id number] 2.16.840.1.559649.3.579.2. 174 1994 Unknown [id number] 2.16.840.1.175490.3.579.2. 174 1994 Unknown [id number] 2.16.840.1.491079.3.579.2. 174 1994 Unknown [id number] 2.16.840.1.850465.3.579.2. 174 1994 Unknown [id number] 2.16.840.1.056615.3.579.2. 174 1959 Unknown [id number] 1.2.840.998746.1.13.239.2. 7.3.967990.315 Social History Date Type Detail Facility Start: 09-14-2021 End: 07-04-2023 Tobacco smoking status WIIS Never smoker [employer] Phone: Start: 09-14-2021 End: 09-18-2024 Tobacco use and exposure Never used [employer] Start: 09-14-2021 End: 08-21-2024 Alcohol intake Current non-drinker of alcohol (finding) [employer] Work Phone: Start: 1995 Sex Assigned At Not on file [employer] Work Phone: Start: 11-24-2022 End: 01-10-2023 Exposure to SARS-CoV-2 (event) Not sure [employer] Tobacco smoking status Never [facility] Start: 07-19-2023 End: 09-01-2023 Sex Assigned At Female [facility] Start: 12-04-2022 End: 01-10-2023 History SDOH Alcohol Frequency 1 [employer] Work Phone: Start: 07-19-2023 End: 09-01-2023 History of Social function [employer] How often to you hav e a drink containing alcohol? Never [employer] (I/We) worried wheth er (my/our) food would run out before (I/we) got money to buy more. Never true [employer] At any time in the p ast 12 months, were you homeless or living in penitentiary [including now]? No [employer] Start: 1995 Sex Assigned At Female [employer] Start: 07-19-2023 Gender identity Identifies as female gender (finding) [employer] Start: 07-19-2023 Sexual orientation Heterosexual (finding) [employer] Start: 07-16-2024 [facility] Start: 09-18-2024 Alcoholic beverage intake Lifetime non-drinker (finding) [facility] Functional Status Date Assessment Result Facility 12-08-2022 Functional Status N/A [facility] 06-01-2022 Functional Status N/A [facility] Clinical Notes 06-01-2022 to 10-17-2024 Marlene Olea [employer]TER - 10/17/2024 10:50 AM Trinity Posey - 10/17/2024 8:15 AM Clara Wahl, PT - 10/12/2024 8:00 AM Trinity Posey - 10/04/2024 9:30 AM ESTDischarge InstructionsAttachments Note Date & Type Note Facility 10-17-2024 History of Present illness Narrative Reason for Appointment: Patient ID: Meena Lucero is a 28 y.o. female who presents for No chief complaint on file. Patient presents today for Return OB appointment. MEDICATIONS Current Outpatient Medications Medication Instructions metoclopramide (REGLAN) 10 mg, Oral, 4 times daily 27-1 MG tablet Every 24 hours MV-Min-Fe Fum-FA-DHA ( 1 PO) Oral promethazine (PHENERGAN) 12.5 mg, Oral, Every 6 hours PRN ALLERGIES Allergies Allergen Reactions Hydrocodone Cutler Oil Hives Codeine Rash and Unknown Chest and back pain Hydrocodone-Acetaminophen Unknown and Rash Oxycodone-Acetaminophen Rash and Unknown PROBLEMS Active Ambulatory Problems Diagnosis Date Noted Screening, , for anatomic survey 10/17/2024 15 weeks gestation of 10/17/2024 Second trimester 10/17/2024 Resolved Ambulatory Problems Diagnosis Date Noted No [...] SYSTEMS Review of Systems: Review of Systems Constitutional: Negative. HENT: Negative. Eyes: Negative. Respiratory: Negative. Cardiovascular: Negative. Gastrointestinal: Negative. Genitourinary: Negative. Musculoskeletal: Negative. Skin: Negative. Neurological: Negative. All other systems reviewed and are negative. Hematological: Negative. Endocrine: Negative. Allergic/Immunologic: Negative. OBJECTIVE Objective: Physical Exam Constitutional: Appearance: Normal [...] nursing note reviewed. Exam conducted with a activities assistant present. Vitals: Estimated body mass index is 35.35 kg/m as calculated from the following: Height as of 04/09/23: 5' 5 . Weight as of this encounter: 212 lb 6.4 oz. BP: Patient's last menstrual period was 06/23/2024. ASSESSMENT & PLAN ICD-10-CM 1. Screening, , for anatomic survey Z36.89 US OB ANATOMY SINGLE W US OB CERVICAL LENGTH 2. 15 weeks gestation of Z3A.15 Alpha fetoprotein, maternal US OB ANATOMY SINGLE W US OB CERVICAL LENGTH Alpha fetoprotein, maternal POCT urinalysis dipstick manually resulted 3. Second trimester Z34.92 POCT urinalysis dipstick manually resulted 4. Encounter for gynecological examination without abnormal finding Z01.419 Pap Smear 5. Vaginal discharge N89.8 SURESWAB(R) ADVANCED VAGINITIS PLUS, TMA CHLAMYDIA TRACHOMATIS (GENITO/STI) Neisseria gonorrhea DNA probe, direct 6. STD exposure Z20.2 SURESWAB(R) ADVANCED VAGINITIS PLUS, TMA CHLAMYDIA TRACHOMATIS (GENITO/STI) Neisseria gonorrhea DNA probe, direct 7. Nausea and vomiting during O21.9 metoclopramide (Reglan) 10 MG tablet Return OB/Annual Exam: Patient presents today for a annual exam/routine obstetrics appointment. Patient is currently 15w2d . Patient states she is doing well but has complaints of nausea in the morning rx for reglan faxed to pharmacy. Pap and cultures was obtained without difficulty and patient was given orders for anatomy scan and msAFP to be obtained. Orders Placed This Encounter Procedures US OB ANATOMY SINGLE W US OB CERVICAL LENGTH Alpha fetoprotein, maternal CHLAMYDIA TRACHOMATIS (GENITO/STI) Neisseria gonorrhea DNA probe, direct POCT urinalysis dipstick manually resulted Follow Up: Patient is to schedule annual exam for next year and return to office in 4 weeks for OB appointment. Documented by Marlene Olea LPN on behalf of: Gary Robison DO documented in this encounter [facility] 10-17-2024 History of Present illness Narrative Occupational Therapy [facility] Date: 10/17/2024 Patient Name: Meena Lucero : 1995 Pt Cancelled Appt due to no reason for cancel Trinity Keys Kimberly Date: 10/17/2024 documented in this encounter [facility] 10-12-2024 History of Present illness Narrative Images from the original note were not included. [facility] Daily Note Date: 10/12/2024 Patient Name: Meena Lucero : 1995 (28 y.o.) Referring Provider (secondary): Dr. Partida Diagnosis: R buttock pain, sacral pain Treatment Diagnosis: back pain, SI pain Onset Date: 09/28/24 (Referral) PT Insurance Information: [facility] Total # of Visits Approved: 16 [...] hip abd 4+/5 for improved pelvic stability Child Care Nurse Goals Time Frame for Child Care Nurse Goals : 16 Fdc Goal 1: Improve functional mobility with Oswestry score <15/50 (from 22/50) Fdc Goal 2: Decrease R SI pain 4/10 at worst x3 days Post Treatment Pain: 4/10 Time In: 8:00 Time Out : 8:33 Timed Code Treatment Minutes: 33 Minutes Total Treatment Time: 33 Minutes Clara Castrejon, PT Date: 10/12/2024 documented in this encounter [facility] 10-04-2024 History of Present illness Narrative Physical Therapy [facility] Date: 10/04/2024 Patient Name: Meena Lucero : 1995 Pt Cancelled Appt due to therapist ill Trinity Harris Date: 10/04/2024 documented in this encounter [facility] 09-18-2024 History of Present illness Narrative Reason for Appointment: Patient ID: Meena Lucero is a 28 y.o. female who presents for Routine Visit Patient presents today for Return OB appointment. MEDICATIONS Current Outpatient Medications Medication Instructions 27-1 MG tablet Every 24 hours MV-Min-Fe Fum-FA-DHA ( 1 PO) Oral promethazine (PHENERGAN) 12.5 mg, Oral, Every 6 hours PRN ALLERGIES Allergies Allergen Reactions Hydrocodone Cutler Oil Hives Codeine Rash and Unknown Chest [...] nursing note reviewed. Exam conducted with a activities assistant present. Vitals: Estimated body mass index is [...] or undercooked meat, and stay away from [facility]. Patient has been consulted regarding any further [...] by Bre Cordova LPN on behalf of: Gary Robison DO documented in this encounter [facility] 08-18-2024 History of Present illness Narrative Reason for Appointment: Patient ID: Meena Lucero is a 28 y.o. female who presents for Amenorrhea Patient presents today for a Nurse OB Intake appointment. Patient is 6w5d with a Estimated Date of Delivery: 04/08/25 OB History Para Term AB Living 5 1 1 1 2 SAB IAB Ectopic Multiple Live Births 2 # Outcome Date GA Lbr Jackson/2nd Weight Sex Type Anes PTL Lv 5 Current 4 Term 10/25/23 37w6d Vag-Spont ROHINI 3 2 AB 1 Current Medications: has a current medication list which includes the following prescription(s): ondansetron odt, , mv-min-fe fum-fa-dha, and promethazine. Medical History: Active Ambulatory Problems Diagnosis Date Noted No Active Ambulatory Problems Resolved Ambulatory Problems Diagnosis Date Noted No Resolved Ambulatory Problems Past Medical History: Diagnosis Date Bronchitis Family History Problem Relation Name Age of Onset Narcolepsy Mother No Known Problems Son Social History Tobacco Use Smoking status: Never Smokeless tobacco: Not on file Substance Use Topics Alcohol use: Not on file Drug use: Never Past Surgical History: Procedure Laterality Date CHOLECYSTECTOMY TONSILLECTOMY Allergies Allergen Reactions Hydrocodone Cutler Oil Hives Codeine Rash and Unknown Chest and back pain Hydrocodone-Acetaminophen Unknown and Rash Oxycodone-Acetaminophen Rash and Unknown Vitals: Estimated body mass index is 34.95 kg/m as calculated from the following: Height as of 04/09/23: 5' 5 . Weight as of this encounter: 210 lb. BP: Patient's last menstrual period was 06/23/2024. Assessment/Plan Diagnoses and all orders for this visit: Missed menses - Type and screen; Future - ABO/Rh; Future - CBC and differential - Hemoglobin A1c - RPR - Rubella antibody, IgG - Hepatitis B surface antigen - Hepatitis C antibody - HIV-1 and HIV-2 antibodies - Urine culture - US OB transvaginal; Future - POCT , urine manually resulted - POCT urinalysis dipstick manually resulted First trimester 6 weeks gestation of , unspecified gestational age - Type and screen; Future - ABO/Rh; Future - CBC and differential - Hemoglobin A1c - RPR - Rubella antibody, IgG - Hepatitis B surface antigen - Hepatitis C antibody - HIV-1 and HIV-2 antibodies - Rapid drug screen, urine; Future Encounter for supervision of normal first in first trimester - Rapid drug screen, urine; Future Nurse Note: Pt given [place] 21 and advised to have labs done together at 10 weeks. Pt verbally understood. Pt requests to only see Enriqueta through out her . I noted this on Flowsheet. Pt was advised that there will times that she will not be able to see him due to being called out for a delivery. Pt may have to reschedule unless she agrees to see Genevieve Calderon. Follow Up: Patient is to have labs drawn at directed and return to office for initial OB appointment with provider. Patient may call office as needed with any concerns or questions. Nurse Visit Completed by: Daxa Martinez MA documented in this encounter [facility] 07-27-2024 History of Present illness Narrative Images from the original note were not included. [facility] Daily Note Date: [...] Goals Short Term Goal 1: STG= LTG Child Care Nurse Goals Time Frame for Child Care Nurse Goals : 16 visits Child Care Nurse Goal 1: Decrease subjective SI/right gluteal pain to <3/10 with activity and transitional movements Post Treatment Pain: 5/10 Time In: 0910 Time Out : 0935 Timed Code Treatment Minutes: 25 Minutes Total Treatment Time: 25 Minutes Onel Brown, PT Date: 07/27/2024 documented in this encounter [facility] 07-06-2024 History of Present illness Narrative Images from the original note were not included. [facility] Daily Note Date: [...] strengthening for self-correction of pelvic asymetry- MET Child Care Nurse Goals Time Frame for Child Care Nurse Goals : 10 visits Child Care Nurse Goal 1: Decrease subjective SI/right gluteal pain to <3/10 with activity and transitional movements Child Care Nurse Goal 2: Upgrade HEP for pelvic stab ex Fdc Goal 3: Maintain symetrical pelvic alignment for 5 consecutive days Post Treatment Pain: 4/10 Time In: 0910 Time Out : 0945 Timed Code Treatment Minutes: 35 Minutes Total Time: 35 Minutes ASIA MIX PT Date: 07/06/2024 documented in this encounter [facility] 06-29-2024 History of Present illness Narrative Images from the original note were not included. [facility] Daily Note Date: [...] strengthening for self-correction of pelvic asymetry- MET Fdc Goals Time Frame for Child Care Nurse Goals : 10 visits Child Care Nurse Goal 1: Decrease subjective SI/right gluteal pain to <3/10 with activity and transitional movements Fdc Goal 2: Upgrade HEP for pelvic stab ex Fdc Goal 3: Maintain symetrical pelvic alignment for 5 consecutive days Post Treatment Pain: 2-3/10 Time In: 0915 Time Out : 0955 Timed Code Treatment Minutes: 35 Minutes Total Time: 40 Minutes ASIA MIX PT Date: 06/29/2024 documented in this encounter [facility] 01-10-2023 Hospital Discharge instructions Fei Canales MD - 01/10/2023 3:17 PM EST There was a possible concern for fracture of the fibula. Please follow-up with Dr. Rehman for further evaluation and be sure to use crutches and be nonweightbearing until then. The following attachments cannot be sent through Care Everywhere.Ankle Sprain (Libyan)documented in this encounter [facility] Work Phone: 12-08-2022 Hospital Discharge instructions Patient [...] and water are not available, use hand ice platform supervisor. Make sure that all people in your household wash their hands well and often. Take gjkj-hlv-ptpjuqp and prescription medicines only as told by [...] and water are not available, use hand ice platform supervisor. This information is not intended to replace advice given to you by your health care provider. Make sure you discuss any questions you have with your health care provider. Document Released: 11/08/2006 Document Revised: 04/26/2020 Document Reviewed: 09/13/2019 [employer] Patient Education 2019 [employer]. Follow Up Care 12/08/2022 09:17:52 With:Keyon BROWN MD, FAM Address: When: only if needed [facility] [place] 12-04-2022 Hospital Discharge instructions Jason Tracy MD - 12/04/2022 4:33 PM EST Increase fluids at home. Take Zofran for any nausea. Try Imodium/loperamide for diarrhea. Call primary care doctor for close follow-up. Use Tylenol or Motrin to keep fever down. The following attachments cannot be sent through Care Everywhere.Viral Infections (Libyan)documented in this encounter [facility] [email or web address] Work Phone: 06-01-2022 Hospital Discharge instructions Patient [...] height. This can be done either in [place] ([place] or metric measurements. Note that charts are available to help you find your BMI quickly and easily without having to do these calculations yourself. To calculate your BMI in [place] ([place] measurements, your health care provider will: [...] medical problems. BMI can be measured using Libyan measurements or metric measurements. To interpret your [...] 07/20/2005 Document Revised: 10/21/2018 Document Reviewed: 09/21/2018 [employer] Patient Education 2020 [employer]. 06/01/2022 13:15:39 Carpal Tunnel Syndrome Carpal Tunnel [...] Having a job, such as being a heat treatment technician or a hotel dining room cashier, that requires you to repeatedly move [...] 3 times per day. General instructions Take gjte-hdh-ujvldrz and prescription medicines only as told by [...] 11/05/2001 Document Revised: 03/17/2019 Document Reviewed: 03/17/2019 [employer] Patient Education 2020 [employer]. Follow Up Care 05/28/2022 08:22:05 With:Meena Carl CNP Address: When: only if needed [facility] Evaluation + Plan note [facility] Evaluation note Diagnosis Subacute bronchitis- Primary Acute bronchitis documented in this encounter [employer] Phone: evaluation note* Diagnosis Left wrist pain Pain in joint, forearm documented in this encounter [email or web address] Phone: evaluation note* Diagnosis Viral illness- Primary Unspecified viral infection, in conditions classified elsewhere and of unspecified site documented in this encounter [email or web address] Phone: evaluation note* Diagnosis Injury of right ankle, initial encounter- Primary documented in this encounter [email or web address] Phone: evaluation note* Diagnosis Other closed fracture of proximal end of right fibula with routine healing, subsequent encounter documented in this encounter [email or web address] Phone: evaluation note* Diagnosis First trimester state, incidental 11 weeks gestation of Encounter for sterilization education [facility] Screening, , for anatomic survey Encounter for anatomic survey 15 weeks gestation of Second trimester state, incidental Encounter for gynecological examination without abnormal finding Vaginal discharge Leukorrhea, not specified as infective STD exposure Nausea and vomiting during [facility] Diagnosis Missed menses First trimester state, incidental 6 weeks gestation of , unspecified gestational age Encounter for supervision of normal first in first trimester documented in this encounter [facility] Narrative No data available for this section [facility] Hospital Discharge instructions* Attachments The following attachments cannot be sent through Care Everywhere. * Bronchitis ([place]) [facility]: progress note No data available for this section [facility] Reason for referral (narrative) Referred by: Meena Carl CNP [facility] Advance Directives Documents on File Type Date Recorded Patient Technology Services Manager Expl anation ACP-Advance Directive ACP-Power of Dental Assisting Instructor Summary Purpose Family History No Family History [...] the right ankle Reason Comments Routine Visit Reason Comments Amenorrhea Ordered Prescriptions (unrec ognized section and content) [...] Care Team (unrecognized sect ion and content) Paving Inspector Relationship Specialty Start Date End Date Keyon Brown MD [address] [place] [address] PCP - General Family Medicine 12/04/22 Paving Inspector Relationship Specialty Start Date End Date Keyon Brown MD [address] [place] [address] PCP - General Family Medicine 12/04/22 Paving Inspector Relationship Specialty Start Date End Date Keyon Brown MD [address] [place] [address] PCP - General Family Medicine 12/04/22 Paving Inspector Relationship Specialty Start Date End Date Óscar Villagran DNP [address] [place] [address] PCP - General Family Nurse Practitioner 03/14/24 Paving Inspector Relationship Specialty Start Date End Date Óscar Villagran DNP [address] [place] [address] PCP - General Family Nurse Practitioner 03/14/24 Paving Inspector Relationship Specialty Start Date End Date Óscar Villagran DNP [address] [id number] PCP - General Family Nurse Practitioner 03/14/24 Paving Inspector Relationship Specialty Start Date End Date Óscar Villagran DNP [address] [place] [phone] PCP - General Family Nurse Practitioner 03/14/24 Paving Inspector Relationship Specialty Start Date End Date Keyon Brown MD [address] [place], [place] [address] [address] PCP - General 05/12/23 Gary Robison DO [address] [place] [address] [place] [address] PCP - [facility] 02/21/24 Paving Inspector Relationship Specialty Start Date End Date Keyon Brown MD [facility] [place] [phone] PCP - General 05/12/23 Gary Robison, [facility] [place] [address] PCP - [facility] 02/21/24 Paving Inspector Relationship Specialty Start Date End Date Óscar Villagran DNP [address] [place], [place] [phone] PCP - General Family Nurse Practitioner 03/14/24 Paving Inspector Relationship Specialty Start Date End Date Keyon Brown MD [address] [place], [place] [address]k[place]y [place] [phone] PCP - General 05/12/23 Gary Robison, [facility] Le[place], [id number] PCP [facility] 02/21/24 Paving Inspector Relationship Specialty Start Date End Date Keyon Brown MD [address] [place], [place] [address]k[place]y [place] [phone] PCP - General 05/12/23 Gary Robison, [facility] [place] [address] PCP - [facility] 02/21/24 Paving Inspector Relationship Specialty Start Date End Date Keyon Brown MD [address] [place] [phone] PCP - General 05/12/23 Gary Robison DO [address] [place] [address] PCP - [facility] 02/21/24 Paving Inspector Relationship Specialty Start Date End Date Keyon Brown MD [address] [place] [address] [place] [phone] PCP - General 05/12/23 Gary Robison DO [address] [place] [address] PCP - [facility] 02/21/24 INFORMATION SOURCE (unrecogn ized section and content) DATE CREATED AUTHOR 02/01/2023 [facility] DATE CREATED AUTHOR AUTHOR'S ORGANIZ ATION 04/01/2023 [facility] DATE CREATED AUTHOR AUTHOR'S ORGANIZ ATION 09/19/2024 [facility] DATE CREATED AUTHOR AUTHOR'S ORGANIZ ATION 10/19/2024 Kirsty charles FOR RECORDS PERTAINING TO PATIENTS [...] BE BASED ON THE PRIMARY CLINICAL RECORDS. [facility] [employer] [facility]. provides no warranty or guarantee of the accuracy or completeness of information in this document.
== END 2024-11-20 07:49 | disposition home or self-care (01) ==
LOC: US 07:48
PROVIDERS: Visit Provider Obstetrics & Gynecology
DX: Z36.89 Encounter for other specified antenatal screening (principal); Z3A.20 20 weeks gestation of pregnancy
CPT/HCPCS: 76805; 76817

== ENCOUNTER 2024-12-12 08:09 | Outpatient (OUT) | payer OTHER, SELFPAY ==
--- NOTE | 2024-12-12 08:13 | US_ITS ---
The [address] [address] Patient Name: RUEL READ MRN: [id number] date: 1995 Sex: F Assigned Patient Location: US Current Patient Location: US Accession/Order Number: [id number] Exam Date: 12/12/2024 08:30 Report Date: 12/12/2024 08:51 At the request of: YULIA ESTES Procedure: US OB placenta EXAMINATION: US OB placenta HISTORY: Circumvallate Placenta In Second Trimester COMPARISON: Ultrasound OB anatomy 11/20/2024 FINDINGS: PLACENTA: Posterior, grade 0, without appreciable abnormality. No apparent circumvallate placenta on today's study. HEART RATE: 142 bpm OTHER: None. US/US OB placenta IMPRESSION: s 1. Normal appearance of the posterior placenta. No abnormal or suspicious findings. Electronically authenticated by: ALIS ECKERT Date: 12/12/2024 08:51
--- OUTSIDE RECORDS SUMMARY | 2024-12-12 08:20 | XMS_ITS | CCD ---
Author Organization [facility] Care Team Providers Care Insurance Counselor Name Role Phone Unavailable Primary Care Provider UnavailCharli Browne Primary Care Physician Keyon Brown MD Primary Care Provider ANTHONY Carl Attending UnavailKeyon Lockett Attending Unavailable Evan Moyer Attending Unavailable LISHA, DR DRUMMOND LISTED Consulting Unavaila ble [facility] [place] NICOLE Primary Care Unavailable ENRIQUETA ., DR BENDER Attending Unavailable ENRIQUETA ., DR BENDER Admitting Unavailable Clingman Óscar FINN Primary Care Provider Óscar Villagran DNP Primary Care Provider Keyon Brown MD Primary Care Provider Gary Robison DO Unavailable GARY ROBISON Attending Unavailable GARY ROBISON Attending Unavailable GARY ROBISON Attending Unavailable GENEVIEVE PINTO Attending Unavailable CLINGMAÓSCAR Fritz A Primary Care Unavailable JOHN PARTIDA Referring Unavailable JOHN PARTIDA Attending Unavailable CLINGMAN, ÓSCAR A Primary Care Unavailable JOHN PARTIDA Referring Unavailable JOHN PARTIDA Attending Unavailable CLINGMAN, ÓSCAR A Primary Care Unavailable JOHN PARTIDA Referring Unavailable JOHN PARTIDA Attending Unavailable CLINGMAN, ÓSCAR A Primary Care Unavailable GARY ROBISON Referring Unavailable KEYON BROWN Primary Care Unavailable GARY ROBISON Referring Unavailable CLINGMALam, ÓSCAR A Primary Care Unavailable JOHN PARTIDA Referring Unavailable CLINGMAN, ÓSCAR A Primary Care Unavailable GARY ROBISON Referring Unavailable CLINGMAN, ÓSCAR A Primary Care Unavailable OLEWILER, JOHN J Referring Unavailable JOHN PARTIDA Attending Unavailable CLINGMAN, [...] Referring Unavailable KEYON BROWN Primary Care Unavailable CLINGMAN, ÓSCAR A Primary Care Unavailable GARY ROBISON Referring Unavailable ÓSCAR VILLAGRAN Primary Care Unavailable JOHN PARTIDA Referring Unavailable JOHN PARTIDA Attending Unavailable Allergies Allergy Classification Reported Allergen(s) Allergy Type Date of Onset Reaction(s) Facility (20 sources) Acetaminophen / HYDROcodone Drug Allergy 7 Rash, Unknown [facility] (20 sources) Acetaminophen / oxyCODONE Drug Allergy 5 Rash, Unknown [facility] (20 sources) Codeine; Translations: [codeine] Drug Allergy 7 Rash, Cutaneous eruption (morphologic abnormality), Unknown [facility] (3 sources) Acetaminophen / HYDROcodone; Translations: [acetaminophen-hy drocodone] Drug Allergy [facility] (3 sources) Acetaminophen / oxyCODONE; Translations: [acetaminophen-ox ycodone] Drug Allergy Cutaneous eruption (morphologic abnormality) [facility] (1 source) Acetaminophen / HYDROcodone Drug Allergy [facility] Rep[facility] (1 source) Acetaminophen / oxyCODONE Drug Allergy [facility] (1 source) Codeine Drug Allergy [facility] (16 sources) HYDROcodone Drug Allergy 3 [facility] (16 sources) orange allergenic extract Drug Allergy 5 [facility] Medications Current Medications Medication Drug Class(es) Dates [...] extended release oral tablet (6 sources) Uncompetitive X-pctbyr-Q-aspartate Receptor Antagonist, Sigma-1 Agonist Start: 09-14-2021 take 1 tablet by mouth every twelve hours as needed for cough Dextromethorphan-g uaiFENesin 60-1200 MG TB12 Take 1 tablet by mouth every 12 hours as needed (COUGH CONGESTION) 28 tablet 0 09/14/2021 Active dextromethorphan hydrobromide 3 mg/ml / promethazine hydrochloride 1.25 mg/ml oral solution (6 sources) Phenothiazine, Uncompetitive B-liggqv-W-aspartate Receptor Antagonist, Sigma-1 Agonist Start: 05-31-2018 promethazine-dextr [...] day(s), # 30 tab(s), Refills(s) 1, Pharmacy: [facility], 170, cm, 06/01/22 12:55:00 EDT, Height/Length [...] 0 Active metoclopramide 10 mg oral tablet (7 sources) Dopamine-2 Receptor Antagonist Start: 10-17-2024 End: 01-15-2025 metoclopramide (Reglan) 10 MG tablet Indications: Nausea and vomiting during Take 1 tablet (10 mg) by mouth in the morning and 1 tablet (10 mg) at noon and 1 tablet (10 mg) in the evening and 1 tablet (10 mg) before bedtime. 120 tablet 2 10/17/2024 01/15/2025 Active omeprazole 20 mg delayed release oral capsule (8 sources) Proton Pump Inhibitor Start: 11-20-2024 End: 11-20-2025 take 1 capsule by mouth once before mealtime omeprazole (PriLOSEC) [address] capsule Indications: Second trimester Take 1 capsule (20 mg) by mouth in the morning. Take before meals. Do not crush or chew.. 30 capsule 11 11/20/2024 11/20/2025 Active take 1 capsule by mouth once brittney ly omeprazole (PRILOSEC) 20 MG capsule Take 20 [...] 0 05/22/2024 05/27/2024 Active 27-1 MG tablet (11 sources) 27-1 MG tablet 1 (one) time [...] Active promethazine hydrochloride 12.5 mg oral tablet (16 sources) Phenothiazine Start: 02-10-2024 take 1 tablet [...] TID, # 15 tab(s), Refills(s) 0, Pharmacy: [facility], 170, cm, 09/03/22 14:31:00 EDT, Height/Length [...] Onset: 12-08-2022 Episodic Menstrual disorders (3 sources) Missed period; Translations: [Irregular menstruation, unspecified] Onset: 08-07-2024 08-18-2024 Chronic Other complications of (2 sources) Vomiting [...] 06-01-2022 Chronic Other and delivery including normal (16 sources) First trimester ; Translations: [Encounter for supervision of normal , unspecified, first trimester] Onset: 10-17-2024 09-18-2024 Episodic Residual codes; unclassified (14 sources) Patient encounter status; Translations: [Other specified health status] Onset: 06-01-2022 Episodic Residual codes; unclassified (2 sources) Gestation period, 11 weeks; Translations: [11 weeks gestation of ] 09-18-2024 Episodic Residual codes; unclassified (9 sources) Gestation period, 15 weeks; Translations: [15 weeks gestation of ] Onset: 10-17-2024 10-17-2024 Episodic Residual codes; unclassified (1 source) Gestation period, 6 weeks; Translations: [Less than 8 weeks gestation of ] 08-18-2024 Episodic Residual codes; unclassified (2 sources) Gestation period, 20 weeks; Translations: [20 weeks gestation of ] 11-20-2024 Episodic Unclassified (2 sources) Non-smoker 06-01-2022 Viral [...] NEGATED: Highlighted row has been ruled out!Unclassified (5 sources) No known active problems 05-22-2024 Results Test Name Value Interpretation Reference Range Facility Urinalysis macro (dipstick) panel (U)on 11-20-2024 Bilirubin, UA Negative Negative - 4(70) +++ mg/dL [facility] Blood, UA Negative Negative - 50 Darnell/mcL [facility] Clarity, UA Clear [facility] Color, UA Yellow [facility] Glucose, UA Negative Negative - 2000(110) ++++ mg/dL [facility] Interpretation and review of laboratory results Abnormal [facility] re Ketones, UA Negative Negative - 160(16) ++++ mg/dL [facility] Leukocytes, UA Positive Negative - 500+++ Shona/mcL [facility] Comment on above: small Nitrite, UA Negative Negative - Positive [facility] pH, UA 7.5 5 - 9 [facility] RPost e Protein, UA Negative Negative - 1999(20) ++++ mg/dL [facility] Spec Grav, UA 1.015 1 - 1.03 [facility] Urobilinogen, UA 0.2 0.2 - 12 mg/dL [facility] RPost e IGP,APTIMA HPV,AGE GDLNon AGE GDLN ACOG TESTING Note . [facility] Comment on above: TESTS RESULT FLAG UN [facility] REF RANGE LAB Clinician Provided Cytology Information Source.............Cervix No. of containers..01 ThinPrep Vial Age Algo ACOG Subha... FLAG LEGEND: L-Low Normal,H-High Normal,LL-Alert Low,HH-Alert High <-Panic Low,>-Panic High,A-Abnormal,AA-Critical Abnormal Performed at: 01 =G [facility] [address] [place] [address] Yulisa Mustafa MD, IGP, RFX APTIMA HPV ASCU Note . [facility] Comment on above: TESTS RESULT FLAG UN ITS REF RANGE LAB DIAGNOSIS: 02 NEGATIVE FOR INTRAEPITHELIAL LESION OR MALIGNANCY. FUNGAL ORGANISMS MORPHOLOGICALLY CONSISTENT WITH FELIPE SPECIES ARE PRESENT. Specimen adequacy: 02 Satisfactory for evaluation. Endocervical and/or squamous metaplastic cells (endocervical component) are present. Performed by: Estefany Boucher, Injection Molding Operator ([facility]) . 02 Note: Note 03 The Pap [...] <-Panic Low,>-Panic High,A-Abnormal,AA-Critical Abnormal Performed at: [address] [place] [address] Pily Shields PhD, [address] [address] Yulisa Mustafa MD, Performed at: = - [address] [id number] Scheme Technician: Yulisa Mustafa MD, Phone: [phone] Performed at: [address], [place] [id number] Scheme Technician: Pily Shields PhD, Phone: [phone] SPATULA-ALONE CERVIX [facility]INIS[facility] e RECURRENT VAGINITIS (HTRX)on 10-18-2024 ATOPOBIUM VAGINAE 0 [facility] ATOPOBIUM VAGINAE Not detected [facility] BVAB 2,3 (BACTERIAL VAGINOSIS ASSOCIATED BACTERIA 2, 3); MOBILUNCUS SPP 0 [facility] BVAB 2,3 (BACTERIAL VAGINOSIS ASSOCIATED BACTERIA 2, 3); MOBILUNCUS SPP Not detected [facility] FELIPE ALBICANS, PARAPSILOSIS, TROPICALIS 0 [facility] FELIPE ALBICANS, PARAPSILOSIS, TROPICALIS Not detected [facility] FELIPE GLABRATA 0 [facility] FELIPE GLABRATA Not detected [facility] ealthcare FELIPE KRUSEI [facility]IPE KRUSEI Not detected [facility] CHLAMYDIA TRACHOMATIS 0 [facility] CHLAMYDIA TRACHOMATIS Not detected [facility] GARDNERELLA VAGINALIS 0 [facility] GARDNERELLA VAGINALIS Not detected [facility] MEGASPHAERA (TYPES 1, 2) 0 [facility] MEGASPHAERA (TYPES 1, 2) Not detected [facility] MYCOPLASMA GENITALIUM 0 [facility] MYCOPLASMA GENITALIUM Not detected [facility] NEISSERIA GONORRHOEAE 0 [facility] NEISSERIA GONORRHOEAE Not detected [facility] TRICHOMONAS VAGINALIS 0 [facility] TRICHOMONAS VAGINALIS Not detected [facility] Urinalysis macro (dipstick) panel (U)on 10-17-2024 Bilirubin, UA Negative Negative - (70) +++ mg/dL [facility] Comment on above: n Blood, UA Negative Negative - 50 Darnell/mcL [facility] Clarity, UA Clear [facility] re Color, UA Yellow [facility] e Glucose, UA Negative Negative - 1999(110) ++++ mg/dL [facility] Interpretation and review of laboratory results Normal [facility] re Ketones, UA Negative Negative - 160(16) ++++ mg/dL [facility] Leukocytes, UA Negative Negative - 500+++ Shona/mcL [facility] Nitrite, UA Negative Negative - Positive [facility] pH, UA 6 5 - [address] [facility] e Protein, UA Negative Negative - 1999(20) ++++ mg/dL [facility] Spec Grav, UA 1.03 1 - 1.03 [facility] Urobilinogen, UA 0.2 0.2 - 12 mg/dL [facility] Urinalysis macro (dipstick) panel (U)on 09-18-2024 Bilirubin, UA Negative Negative - 4(70) +++ mg/dL [facility] Blood, UA Negative Negative - 50 Darnell/mcL [facility] Clarity, UA Clear [facility] Health[facility] re Color, UA Yellow [facility] e Glucose, UA Negative Negative - 1999(110) ++++ mg/dL [facility] Interpretation and review of laboratory results Normal [facility] re Ketones, UA Negative Negative - 160(16) ++++ mg/dL [facility] Leukocytes, UA Negative Negative - 500+++ Shona/mcL [facility] Nitrite, UA Negative Negative - Positive [facility] pH, UA 6.5 5 - 9 [facility] Health[facility] e Protein, UA Negative Negative - 1999(20) ++++ mg/dL [facility] Spec Grav, UA 1.015 1 - 1.03 [facility] Urobilinogen, UA 0.2 0.2 - 12 mg/dL [facility] BOX TESTon 09-11-2024 BOX TEST SENT OUT [employer] [facility] BOX1 [facility] e BOX2 11/11/24 [facility] [employer] [facility] [employer] BOX [facility] e HCG ( test) Ql (U)o n 08-18-2024 Interpretation and review of laboratory results Abnormal [facility] Healthsc re Preg Test, Ur Positive [facility] Urinalysis macro (dipstick) panel (U)on 08-18-2024 Bilirubin, UA Negative Negative - 4(70) +++ mg/dL [facility] Blood, UA Negative Negative - 50 Darnell/mcL [facility] Clarity, UA Clear [facility] Health[facility] re Color, UA Yellow [facility] Health[facility] e Glucose, UA Negative Negative - 1999(110) ++++ mg/dL [facility] Interpretation and review of laboratory results Abnormal [facility] re Ketones, UA Negative Negative - 160(16) ++++ mg/dL [facility] Leukocytes, UA Negative Negative - 500+++ Shona/mcL [facility] Nitrite, UA Positive Negative - Positive [facility] Comment on above: small pH, UA 7.0 5 - 9 [facility] Health[facility] e Protein, UA Negative Negative - 1999(20) ++++ mg/dL [facility] Spec Grav, UA 1.015 1 - 1.03 [facility] Urobilinogen, UA 0.2 0.2 - 12 mg/dL [facility] ALL HCG, QUANTITATIVEon 07-23 Interpretation and review of laboratory results Abnormal [facility] Healthca re MHPT HCG, QUANT 43946.0 High [facility]al [facility]care Comment on above: Non-preg premeno <=5 Postmeno <=8 Male <=3 If HCG results do not concur with clinical observations, additional testing to confirm results is recommended. Original Ordering Provider: GARY AGUILAR DO [facility]A [facility] HCG, Quanton 08-07-2024 HCG, Quant 55260.0 mIU/mL High <5 [facility] Comment on above: Result Comment: Non-preg premeno <=5 Postmeno <=8 Male <=3 If HCG results do not concur with clinical observations, additional testing to confirm results is recommended. Performed By: #### B HCG #### [facility] [address] [place] [address] Scheme Technician: Armen Madrigal MD HCG, Quantitative, on 08-07-2024 [place] [address].0 m[IU]/mL High [facility] Comment on above: Non-preg premeno <=5 Postmeno <=8 Male <=3 If HCG results do not concur with clinical observations, additional testing to confirm results is recommended. Interpretation and review of laboratory results Abnormal [facility] ALL HCG, QUANTITATIVEon 07-23 Interpretation and review of laboratory results Abnormal [facility] re PT HCG, QUANT 1366.0 High [facility] Comment on above: Non-preg premeno <=5 Postmeno <=8 Male <=3 If HCG results do not concur with clinical observations, additional testing to confirm results is recommended. Original Ordering Provider: GARY AGUILAR DO ENRIQUETA CLINIS[facility]NC [facility] Health[facility] e HCG, Quanton 08-02-2024 HCG, Quant 1366.0 mIU/mL High <5 [facility] Comment on above: Result Comment: Non-preg premeno <=5 Postmeno <=8 Male <=3 If HCG results do not concur with clinical observations, additional testing to confirm results is recommended. Performed By: #### B HCG #### [facility] [address] [place], [place] [id number] Scheme Technician: Armen Madrigal MD ALL HCG, QUANTITATIVEon Interpretation and review of laboratory results Abnormal [facility] MHPT HCG, QUANT 506.3 High [facility] Comment on above: Non-preg premeno <=5 Postmeno <=8 Male <=3 If HCG results do not concur with clinical observations, additional testing to confirm results is recommended. Original Ordering Provider: [facility]ARY [facility]I [facility] HCG, Quanton 07-31-2024 HCG, Quant 506.3 mIU/mL High <5 [facility] Comment on above: Result Comment: Non-preg premeno <=5 Postmeno <=8 Male <=3 If HCG results do not concur with clinical observations, additional testing to confirm results is recommended. Performed By: #### B HCG #### [facility] [address] [place], [place] [id number] Scheme Technician: Armen Madrigal MD HCG, Quantitative, on 07-31-2024 HCG.beta subunit Qn 506.3 m[IU]/mL High [facility] Comment on above: Non-preg premeno <=5 Postmeno <=8 Male <=3 If HCG results do not concur with clinical observations, additional testing to confirm results is recommended. Interpretation and review of laboratory results Abnormal [facility] ALL HCG, QUANTITATIVEon Interpretation and review of laboratory results Abnormal [facility] MHPT HCG, QUANT 200.3 High [facility] Comment on above: Non-preg premeno <=5 Postmeno <=8 Male <=3 If HCG results do not concur with clinical observations, additional testing to confirm results is recommended. Original Ordering Provider: GARY MEI CLINISYDE [facility] HCG, Quanton 07-29-2024 HCG, Quant 200.3 mIU/mL High <5 [facility] Comment on above: Result Comment: Non-preg premeno <=5 Postmeno <=8 Male <=3 If HCG results do not concur with clinical observations, additional testing to confirm results is recommended. Performed By: #### B HCG #### [facility] [address] [place] [address] Scheme Technician: Armen Madrigal MD ALL HCG SERUM,QUALITATIVEon 07-27-2024 Interpretation and review of laboratory results Abnormal [facility] MHPT HCG SCREEN, BLOOD Positive Abnormal NEG [facility] Comment on above: If HCG results do not concur with clinical observations, additional testing to confirm result is recommended. This test is not labeled for use as a tumor marker. [facility] has confirmed the use of plasma for this test. This has not been cleared or approved by the U.S. Food and Drug Administration. The FDA has determined that such clearance is not necessary. Original Ordering Provider: GARY AGUILAR DO CAMP[facility] HCG Screen, Bloodon 07-27-20 24 HCG Screen, Blood Positive Abnormal NEG [facility] Comment on above: Result Comment: If HCG results do not concur with clinical observations, additional testing to confirm result is recommended. This test is not labeled for use as a tumor marker. [facility] has confirmed the use of plasma for this test. This has not been cleared or approved by the U.S. Food and Drug Administration. The FDA has determined that such clearance is not necessary. Performed By: #### H CG #### [facility] [address] [place] [address] Scheme Technician: Armen Madrigal MD HCG, Quanton 07-27-2024 HCG, Quant 73.4 mIU/mL High <5 [facility] Comment on above: Result Comment: Non-preg premeno <=5 Postmeno <=8 Male <=3 If HCG results do not concur with clinical observations, additional testing to confirm results is recommended. Performed By: #### B HCG #### [facility] [address] [place] [address] Scheme Technician: Armen Madrigla MD HCG, Quanton 06-08-2024 HCG, Quant <1.0 Normal <5 [facility] Comment on above: Result Comment: Non-preg premeno <=5 Postmeno <=8 Male <=3 If HCG results do not concur with clinical observations, additional testing to confirm results is recommended. Performed By: #### B HCG #### [facility] [address] [place] [address] Scheme Technician: Armen Madrigal MD XR SACRUM COCCYX (MIN 2 VIEW S)on 05-24-2024 XR SACRUM COCCYX (MIN 2 VIEWS) HISTORY: Sacral pain. TECHNIQUE: 3 views sacrum and coccyx. COMPARISON: None. FINDINGS: Sacroiliac joints are normal. No fracture or acute osseous abnormality is identified. IMPRESSION: No acute process. Interpreted by: Parker Coleman MD Signed by: Parker Coleman MD 05/24/24 Final result Normal [facility] HCG, Quanton 03-04-2024 HCG, Quant 3680.0 mIU/mL High <5 [facility] Comment on above: Result Comment: Non-preg premeno <=5 Postmeno <=8 Male <=3 If HCG results do not concur with clinical observations, additional testing to confirm results is recommended. Performed By: #### B HCG #### [facility] [address] [place] [address] Scheme Technician: Armen Madrigal MD Cytology Cervical or vaginal smear or scraping studyon 05-26-2023 [facility] RAD - MISCon 02-01-2023 RAD - MISC [id number] #1.00CD:127 Normal [facility] XR ANKLE RIGHT (MIN 3 VIEWS) on 01-29-2023 FINDINGS/IMPRESSION: 1. Compression fracture tip of the fibula no longer separately seen. 2. Anatomic alignment throughout. 3. Soft tissue swelling has resolved. [facility]IS CONSOLIDATED EXAM: XR ANKLE RIGHT (MIN 3 VIEWS). HISTORY: Other closed fracture of proximal end of right fibula with routine healing, subsequent encounter. COMPARISON: 01/10/2023. [facility] CON[facility] Mauro Anton Jr., MD - 01/29/2023 EXAM: XR ANKLE RIGHT (MIN 3 VIEWS). HISTORY: Other closed fracture of proximal end of right fibula with routine healing, subsequent encounter. COMPARISON: 01/10/2023. IMPRESSION: FINDINGS/IMPRESSION: 1. Compression fracture tip of the fibula no longer separately seen. 2. Anatomic alignment throughout. 3. Soft tissue swelling has resolved. [employer] Phone: Radiology Study observation (narrative) [employer] Phone: XR ANKLE RIGHT (MIN 3 VIEWS) Ordered By: Mauro Anton on 01-29-2023 [employer] Phone: RAD - MISCon 01-11-2023 RAD - MIS [id number] #1.00CD:127 Normal [facility] XR ANKLE RIGHT (MIN 3 VIEWS) on 01-10-2023 FINDINGS/IMPRESSION: 1. Very small nondisplaced incomplete fracture is questioned in the distal tip of the right fibula, with mild surrounding soft tissue swelling. 2. No other fracture, malalignment, significant arthritis or acute bony abnormality is seen. [facility] CONSOL[facility] CLINICAL HISTORY: Right ankle pain and swelling since an injury yesterday. RIGHT ANKLE 3 VIEWS: [facility] João Amezquita MD - 01/10/2023 CLINICAL HISTORY: Right ankle pain and swelling since an injury yesterday. RIGHT ANKLE 3 VIEWS: IMPRESSION: FINDINGS/IMPRESSION: 1. Very small nondisplaced incomplete fracture is questioned in the distal tip of the right fibula, with mild surrounding soft tissue swelling. 2. No other fracture, malalignment, significant arthritis or acute bony abnormality is seen. 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 Obesity due to excess calories BMI [...] to 60 minutes before meals Pickup at [facility] Unchanged multivitamin, ( Multivitamins with Vitamin B Complex, Vitamin C, Minerals and L-Methylfolate oral capsule) 1 Capsules By Mouth Every day Contact prescribing physician if questions or concerns Unchanged ondansetron (Zofran ODT 4 mg Tab-Dis) 1 Tablets By Mouth 3 times a day Contact prescribing physician if questions or concerns Pharmacy Information [facility]: [address], [place] [phone] Medications and Immunizations Administered Not Given influenza virus vaccine, inactivated, Postpone due to refusal SARS-CoV-2 mRNA (tozinameran 5y-11y) vac, Postpone due to refusal Allergies Percocet 5/325 (Hives, Rash) Vicodin (Hives) codeine (Hives, Rash) Problems Ongoing - Any problem that you are currently receiving treatment for. 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 [facility] ED Note-Physicianon 12-08-19 ED Note-Physician [id number] #1.00CD:127 [facility] Family Medicine Office/Clini c Noteon 12-08-2022 [...] and COVID. 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 [facility] Comment on above: Result Comment: Elec [...] and water are not available, use hand tobacco sizer. ? Make sure that all people in your household wash their hands well and often. ? Take fxoe-cgp-hxvwzxs and prescription medicines only as told by [...] person (more content not included)... [facility] COVID-19, Rapidon 12-04-2022 SARS-CoV-2 (COVID-19) RNA WADE+probe Ql (Unsp spec) Not detected Not Detected [facility] Comment on above: Rapid NAAT: [...] management decisions. Fact sheet for Healthcare Providers: https://www.fda.gov/media/046699/download Fact sheet for Patients: https://www.fda.gov/media/428543/download Methodology: Isothermal Nucleic Acid Amplification Specimen Description .NASOPHARYNGEAL SWAB [facility] Rapid influenza A/B antigens on 12-04-2022 Flu A Antigen Negative NEGATIVE [facility] Comment on above: for Influenza A Anti gen Flu B Antigen Negative NEGATIVE [facility] Comment on above: for Influenza B Anti gen. [facility] C Urineon 09-06-2022 Bacteria identified [...] This test was performed at: [facility], [address] [place] [address], [address]- , , Normal [facility] Comment on above: Performed By: #### 2 [id number], [id number], [id number] ####[facility] [address] [place] [address] Coding Summary.on 09-04-2022 Coding Summary. CD:[id number] Gh0bWw+PGhlYWQ+PE1FV AXrW18jlNZtoY5FK6bEK U1IGCTIDNEOYH2YYW3fy EM1AWrtR0CnzwBk ZyfwvNVaWJ28NQt9BKB9 iJamXEoewS7fiJAnF2d5 OnGdCG26wR81KFqxAZFg LqR5WpDschlsaNLk A7rdSfVhnEAiMlt+PHRh YmxlIHdpZHRoPScxMDAl MwXolJwaLK1zEm5sOKUa LWNvbGxhcHNlOiBj k5baAKVoZUbtXT1vnCqo S7UbyHR4YOVuk6o8Lm94 dHI+OTNnWVI5nXfsKGte d589TjTnr9bsBWG3 mFEeENsvOOP7T66cd9G3 ANWxOAIeEVO3cXG8yF2v nWghglczN5YphQXlGqM7 ZKK9gPGrpF5vbBbd unplzL7gTtv+W87HLI6G QRDPQU5IWyl5G8CcSxzy dHI+SM22NOGqOV85lZVh iUYzo4nuyTo3TsMt SFWdWTZ5wXrsZJmyd6Qq SZMjA82jeQQhc6Y6FOWw fXksmQDgFgYadLR5uD8z ZHvcvjzhj9jwvzdb Zabiq8nfic34uF91M81b QRcoOYXkBKM3BSFzNCEf cZzukv0ozB0tRk5+IDxj r6lpo3auuVm8BdZd MGSjjmBfvDfoFCS6b3Il Eo62H7DwfMaop0JnFkm2 cx08qEZyi2K1iJX7ZPun TQTbyL3qYRkzZoQ5 ZFDoNtEwqX78lQTvXRld Sy2jcPvsnHipCX9zSLCq oxrvWOOtfZ0yNYWpbUCj gEfaIO9gBBAsxidm n013WiIeRCB3QLOxeBNg X8XdeH2wCoXjOARbMXKd Y5IkpYOqZCmgY948JRui PlI4VOGbfyNhO5Md XOPkeWynKaS1d5E2Qu7H o5EiuvwqNCY8RXifLZKj OhD2TiVqXzJ3F7VjXrk6 XPDwjDktWJ7sF4Vj DPAlobfmsdenfRA0PQHw VYCfgW19aKDyRImlPs5c c5L3y891PIIbAOUchK57 Xa2nhItjDQVguTEP kK7jpbwxb5ddeumwFdHn QZFnMSt7BSo0KPKadCwb KeJmHLE6KzF4WVU7pPLu mU5toUrukhebnK5n Oyc+A04qgZ9hTWZ5RUA0 coowHKKufjDiVJ15DS38 K8XlWmkyfCNjkKU+PGRp auOxkIlkPC1jOhRv l4kjn7SbGAhqZ9DxGUPz EVkmGvl7XPQoYLY7iBJ8 rP1oODEpRKhwb2B7wWR3 M8BlzyNisn2kn8tr GGHcAExhA98xsMHsq8G5 ZYLamIF1ZFUojXcgJsUe xQ66Uqc+VJAwnCscz6Ij Einky3sjl5iybHo8 IjMwJSIgdmFsaWduPSJ0 h6UwTn08T57cZIkpVAPv HAVmBLUiAUAggWgiix8y oD7aVj3+PGNvbCB3 jPU4cE9xRWRdOjX6YHwr R399YwEzoHKhNlykv0hx l3vatDn8KgUnWRPelhKf gEtwARB2l5ZgMy68 P48nOJmqWJAiFNKyFELe CFFdoRsscy7zdV2nQd8+ US2xj2guwx24uK44eNE+ TLVfXKT7yPgcBXho VDSxeF7zAYqbZgF7POEr JvMezJ37wQUpOFtbTp7k mLmrgMxsTR7iFJVhfbgy a323RrEnd3uxBKZu dJMhWGckFDM4W61mh6V2 PNRhTKYlIFY2lBP8lY4p bGlnbjogbGVmdDsgdmVy wOaaBHteHPkeN851 IHRvcDsnPlBhdGllbnQg DcOdWQa8M7LbKjj4OPPf sIadNX5kwCZhHMqbSl1r yYimvViqYB8yFVTe tprjy429GbPmz4inRGIn yIMiCMkiZJT0A69lz5I0 FWUqAYFiQFQ1gFN5qB5n bGlnbjogbGVmdDsg xmIycBemWPmsMEhrE851 IHRvcDsnPkJpcnRoIERh rQT3QJ18UW80vZQbp3O1 zEQ5Q2MjQAJfwqdn srzjwMA5IACbORGdrL69 Jd2tdCuuBd5bEOGfRMO6 UBFjjNSiG8ZvbN4fBfGq IDVcBQNhE2OgxCMn GIbdK013UCguFoZ6MWGy ptTrA7DwDNCwqFlfBxR9 s3J4Nj6YF8A8EI98VN81 hUSod0W7jUC9D7Yp MXFyggmdhavxlIT6ENWh BNAvdB39Sx4lzPeuDq1t WBYlXAX3LYEanYUtB5An kS0rIzKtRFYvJUGz C9RbcTXwJUyzC390HAlw FpI6ZEHcmqPtN9EpUKLf oTrrOvA1g7Y7Zi2OIAv5 IB77NJ09nIHhv7F3 rKQ3Q8CwCATrtidbonet vFQ2QRTsXJTdbY35Tf6n lYnfAe9eBJAbVWS2WPMi qEDoF5IfeK7rLpNu MEAnZBBbX8IuoOSmWRnv T071QWaaVgI5YFAnjuIb U8TfIQXnuGlhEdM6u5N8 Qy9JLYJeNH05KAW4 kAL2DJ49GO50Z9WoDexl dGFibGU+PHRhYmxlIHdp ZHRoPScxMDAlJyBzdHls AW5gVo8zFYHwAABy iBxhcRIyHyMqg6joUXUv NXqgGU7yqOgrF0NfhZA2 PPFma6s2To94V71eV8Rw dXA+BQFyeCN7yRR5 zP3lWlJuIwQ9ODfoK532 RvAvgXVyRmcmh5mjc6uv mPf0OqN7YHObriTwtIqk ZWN4j0ZmAc91Z99g IHdpZHRoPSIxNSUiIHZh zGfqxc2pyT1lCn0+PGNv hUW2zZX8fB6jPkIbBtQ1 AYlmC563LaIgiBXl Mdxbi1ktx8eipOr9EnEh NEYjxjPzgSrfTLB6l7Ha Wa72O1XpnJobx0GjBru3 dn43dQPyz2T0sRM2 P2ZxDOXghpqvlGUatVqm SB6yWIPjrulhLLWhlM6t ETRzF9s0RjAwBqI3CRfx L6TvvoL6MTBgzNIe SLucTLQ8W50wh8J3WYOk SYSxRQO4qQD4pN2qaEpv bjogbGVmdDsgdmVydGlj IQpqFFjtI336DKWu xKdoWMEqtS1zLYHyeTAf aNlhOH2eFYDxfploNfKS Rh9BBTTzDArAHAnVLD3i RTwvdGQ+PHRkIHN0 eAcgBHokYYMkcZ9lGSIi A2z5QmHfZaX2YYlmP2Jf LAXbdzrdBg04jE7wTcIr EaY1CEyjC5WdovZ5 CWJstFHoSAqpKVF8L32z o9Z6AGNwGTXoFLX6pYG5 bA0hrPkmxhithTOkiBpr dmVydGljYWwtYWxp F743NUKwpCrbNiDoVzE3 OuV7YPB4Z2VqLlp0AEVc cNzuWT1qpKKpZXlfCq9k lReoqBfvLB2zKFAu irtwSUPwiF7bPWPvrWBe aYzzJK0wLTZxtwmal335 ZuVaUVH2UFUcbLIlU2Zx lW3cMjArWXYuEDNc H6WmaQGuNXicC239FHar OsC8RGSkyvTwH9MxPQPi cRgxYaN7h3N9Hh5pGjIJ ZWFyczwvdGQ+PHRk OTN3yBxlMMbcUSHhgN8q XHDdR7g6ZmGiLmF4KBpx F4FvLBYnwtaiHk63tP5o QmObFbR5HXgaP1Cv odS3OASrpBHiPXlsAXS1 X17ob8C8ODBgZCSwFQM1 zUW5jM2zwZxypyunkMNo dDsgdmVydGljYWwt UZfjJ018NMJgvGalOkSn bWFsZTwvdGQ+PHRkIHN0 pDrbLWbgFWZeoO7aACAp I6i2NeDqNgN2SNet S7YfHRJufkouVx26zN8n TkHlAyW6DVozT5AdqmA7 IEYuyMGjXHsnPWD1Z35v r7Z7JYLaAAPsZFH2 gQX1zU5uvGcdgiljfELk dDsgdmVydGljYWwtYWxp V438ENPqdJexDyOpEBVi DQ0ptOajvCZ+PC90 ti06J9ZyRjanAda8IGLg GYQ3vJH3aA7aZACcQYvq a8G2tAN6V7WgxgUbcr2n x5jpCJXbWVeeY56t yRShp4W3VWImbPQ2QYEe mSxiOdPpcZ35Cfr+PGNv lLosl6HwQmdrj8wgz1hz jOm1SrJyYRLsypXa fRrwFDQ2k6LoUs82H93a IHdpZHRoPSIzMCUiIHZh xYovtg3ggI5kLd3+PGNv jQE0gRZ8kW2dVmYg AlM0ADeoS108GiZceVJm Lchwd8xgv2mvsYx9ZlEa KRXmriKlrTypHOA1z1Cf Gj76M6FnvXuag1Jq Zve3cb87gKMvh8U5wBU6 D0NlMOVwzgoknFLncSej KC5cGCCqeqweFGPmzX4h SMScS4p6XlBbNtW3 PPqeS0UhutI6QSLkcKAc NYIrxKBXzD9bdphei6np akmkYmBvVJGjEEc4ZUs7 LWFsaWduOiBsZWZ0 MtW0DHP4fQCjzU6hlKou nddywJ3pOcv+PEx4u5tt uSEuGH6uyXO8HA03GH87 gPDbg7R3jSC1O1Lq DLXvwtnicakdvWX4TFCp RKPqjW19Xv0ytUfbSm4m TURqGUV4KLJqjFCdC4Fu oV3sSoDrXOLoCRFu Z6EfcVJlVKmaD162IFox FsV4SCOmcyUxA1VtQFHm jHhkJrU3b4J5Jb7SYS64 KW33ZU07nQVap5H6 jTO8U2DhOCBplvelitss aJY5ZEDhZBOobR07Nq8y xDvgGf1eDKGgLNU2NBHh vZAvG6GpvF1wIaJk QYByLPQlU4JfuPOcUPqm W759RIspTiK5QZDnklRi N6JnOBNauInvGjD7u4E4 Ph3RRe03ED97JJ28 wCYoj7J6bDB7H6NyGPFm pqisogzveQR5NVFyIQEw iO65Mv3imXnnQz9xFUSo UVV5GFLwsOFpD6Ri cZ2iRhExWYNqPHDvM8Uk kDTqBYnuW050TEzeMvW5 SCChvbRsB6CuOCKvnRch BnK1a4P1Ww2KEDxi dks7H8IgKdwprYK+PC90 MRMjBR21dZZolHSdh6bu cCg2UmCnVOHiBMQ9hIou WMqai6PeKBMrY47p bGFw (more content not included)... [facility] Consent for Treatmenton 08-22 Consent for Treatment [id number] #1.00CD:127 [facility] Discharge Instructionson Discharge Instructions [id number] #1.00CD:127 [facility] ED Clinical Summaryon 2021 ED Clinical Summary [place] [id number] ED Clinical Summary Person Information Name: MEENA LUCERO Gayathri/[facility] Age: 26 Years : 1995 Sex: Female Language: Belarusian PCP: Charli LOPEZ Marital Status: Single Visit [...] 09/03/2022 15:51:51 09/03/2022 15:51:51 09/03/2022 15:51:51 ADDRESS: [address] [place] [id number] PHYS DOC NOTES: MEDICAL INFORMATION: Prescriptions Given: New Medications [facility], [address], [place] [id number], [phone] ondansetron (Zofran ODT 4 mg Tab-Dis) 1 Tablets By Mouth 3 times a day. Refills: 0. Medications to Continue with No Changes Other Medications multivitamin, ( Multivitamins with Vitamin B Complex, Vitamin C, Minerals and L-Methylfolate oral capsule) 1 Capsules By Mouth every day. Refills: 0. PATIENT EDUCATION INFORMATION: Instructions: Nausea and Vomiting, Adult Follow up: With: Address: When: Charli CARLSON [address] [place] [id number] Business (1) In 3 days 09/06/2022 DIAGNOSIS: Nausea & vomiting [facility] ED Note-Physicianon 09-03-20 ED Note-Physician Basic [...] TID, # 15 tab(s), Refills(s) 0, Pharmacy: [facility], 170, cm, 09/03/22 14:31:00 EDT, Height/Length [...] Oral, TID Follow-up With When Contact Information hCarli CARLSON In 3 days 09/06/2022 EDT [address] [place] [address]- Business (1) Additional Instructions: Patient Education Nausea and Vomiting, Adult Attestation Patient seen and evaluated by the physician photography assistant. Attending physician was present in the emergency department and supervised care. This visit was performed by both the physician and an APC. I performed all aspects of the MDM as documented. This report was transcribed using voice recognition software. Every effort was made to ensure accuracy, however, inadvertently computerized drive thru order taker mistakes may be present. Appropriate healthcare PPE [...] (09/03/22 14:49:0 (more content not included)... [facility] Comment on above: Result Comment: Elec [...] added (diluted fruit juice). ? Eat bland, gnvf-gd-apptuc foods in small amounts as you are able. These foods include bananas, applesauce, rice, lean meats, toast, and crackers. ? Avoid fluids that contain a lot of sugar or caffeine, such as energy drinks, sports drinks, and soda. ? Avoid alcohol. ? Avoid spicy or fatty foods. General instructions ? Take oevm-dga-lpnvhvj and prescription medicines only as told by your health care provider. ? Drink enough fluid to keep your urine pale yellow. ? Wash your hands often using soap and water. If soap and water are not available, use hand tobacco sizer. ? Make sure that all people in [...] and drinking to prevent dehydration. ? Take cpny-wov-lqjurcj and prescription medicines only as told by [...] Reviewed: 04/18/2019 Elsevier Patient Education ? 2019 [employer] [facility] ED Patient Summaryon 022 ED Patient Summary [address] [address] Patient Discharge Instructions Person Information Name: MEENA LUCERO Age: 26 Years Arrival Date: 09/03/2022 14:27:10 Discharge Diagnosis: Nausea & vomiting Primary Care Physician: Charli LOPEZ Provider Information Primary Provider: Evan Moyer DO Advanced Postal Inspector:Neil Meza PA-C The exam and treatment you received in the Emergency Department were for an urgent problem and are not intended as complete care. It is important that you follow up with a doctor, nurse practitioner, or physician?s photography assistant for ongoing care. If your symptoms [...] Follow-up Instructions: With: Address: When: Charli CARLSON [address] [place] [phone] Business (1) In 3 days 09/06/2022 In the event that this physician does not participate in your insurance network, please consult with your insurance company to find a nearby participating provider. Patient Education Materials: Nausea and Vomiting, Adult A MESSAGE TO ALL PATIENTS REGARDING OPIOIDS PRESCRIPTION OPIOIDS: WHAT YOU NEED TO KNOW Prescription opioids can be used to help relieve avtxoexv-np-jpatrh pain and are often prescribed following a [...] be struggling with addiction, tell your health manager progressive care and ask for guidance or call [facility]?S National Helpline at 3-434-377-XCFZ. h Source: US Dep (more content not included)... [facility] U BetaHcg Qualon 09-03-2022 HCG.beta subunit (U) [Moles/Vol] Negative [facility] Comment on above: Performed By: #### 2 [id number], [id number], [id number] ####[facility] [address] [place] [address] UA With Cult Reflexon 2021 Bacteria LM Ql (Urine sed) 2+ /HPF Abnormal Trace [facility] Comment on above: Performed By: #### 2 [id number], [id number], [id number] ####[facility] [address] [place] [address] Bilirubin Ql (U) Negative Normal Negative [facility] Comment on above: Performed By: #### 2 8373358, [id number], [id number] ####[facility] [address] [place] [address] Clarity (U) CLEAR Normal Clear [facility] Comment on above: Performed By: #### 2 9786940, [id number], [id number] ####[facility] [address] [place] [address] Color (U) YELLOW Normal Yellow [facility] Comment on above: Performed By: #### 2 [id number], [id number], [id number] ####[facility] [address] [place] [address] Epithelial cells.squamous LM.HPF (Urine sed) [#/Area] 5-8 Normal 0-2 [facility] Comment on above: Performed By: #### 2 2046478, 60324675, 5262704 ####[facility] [address] [place] [address] Glucose Test strip (U) [Mass/Vol] Negative Normal Negative [facility] Comment on above: Performed By: #### 2 [id number], [id number], 8262360 ####[facility] [address] [place] [address] Hemoglobin Ql (U) Negative Normal Negative [facility] Comment on above: Performed By: #### 2 0053432, 56407624, 8819124 ####[facility] [address] [place] [address] Ketones (U) [Mass/Vol] Negative Normal Negative [facility] Comment on above: Performed By: #### 2 9130997, 44320938, 3441755 ####[place] [address] Gaastra.plasma/Lit hium.RBC (Bld) [Mass ratio] 0-3 Normal 0-3 [facility] Comment on above: Performed By: #### 2 4849576, 42564086, 5221773 ####[address] [address] Mucus Ql (Urine sed) 1+ Normal [facility] Comment on above: Performed By: #### 2 1232643, 44937483, 7520301 ####[address] [address] Nitrite Ql (U) Negative Normal Negative [facility] Comment on above: Performed By: #### 2 1981686, 17136193, 1453316 ####[address] [address] pH (U) 5.5 [pH] Invalid Interpretation Code 5.0-9.0 [facility] Comment on above: Performed By: #### 2 1979495, 78792815, 4910562 ####[address] [address] Protein (U) [Mass/Vol] Negative Normal Negative [facility] Comment on above: Performed By: #### 2 6330520, 95440920, 4656770 ####[place] [address] Specific gravity (U) [Rel density] >=1.030 Invalid Interpretation Code 1.005-1.030 [facility] Comment on above: Performed By: #### 2 9321288, 40089594, 5546553 ####[facility] [address] [place] [address] Type of Urine collection method Clean Catch Normal [facility] Comment on above: Performed By: #### 2 8808231, 70142854, 7505836 ####[facility] [address] [place] [address] Urobilinogen Qn (U) 0.2 {Elver'U}/dL Normal 0.0-1.0 [facility] Comment on above: Performed By: #### 2 9097914, 61592964, 4422808 ####[facility] [address] [place] [address] WBC Auto Ql (U) Negative Normal Negative [facility] Comment on above: Performed By: #### 2 7801996, 47899733, 4956746 ####[facility] [address] [place] [address] WBC LM.HPF (Urine sed) [#/Area] 0-5 Normal 0-5 [facility] Comment on above: Performed By: #### 2 6528862, 27740250, 5690330 ####[address] [address] XR WRIST LEFT (MIN 3 VIEWS)o n 06-19-2022 Normal left wrist. [facility] RIS CONSOLIDATED EXAM: XR WRIST LEFT (MIN 3 VIEWS) HISTORY: M25.532. 26-year-old female, left wrist pain. COMPARISON: None. TECHNIQUE: Three views left wrist. FINDINGS: The radiocarpal joint and wrist are normal. Normal scapholunate distance. No erosion or chondrocalcinosis. [facility] CONSOLIDATED Mauro Anton Jr., MD - 06/19/2022 EXAM: XR WRIST LEFT (MIN 3 VIEWS) HISTORY: M25.532. 26-year-old female, left wrist pain. COMPARISON: None. TECHNIQUE: Three views left wrist. FINDINGS: The radiocarpal joint and wrist are normal. Normal scapholunate distance. No erosion or chondrocalcinosis. IMPRESSION: Normal left wrist. 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 pain has been constant for about 1 week now. History of Present Illness Pt [facility]. Previous pt of [facility] [place]. Concerned today about left wrist pain which started about 1 yr ago; pain has worsened over the last week. 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 Carries everything in her left hand. Right handed. Pain location: medial martinez hand, radiating to wrist Pain description: shooting Pain rated: 2/10, 7/10 with certain movements. 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 Negative Tinels and DeQuervians. + Phalens. Rv Servicer strength equal. Neurologic: Cranial nerves II-XII grossly intact. Skin: [place], warm and dry. No rashes, ulcerations, or [...] day(s), # 30 tab(s), Refills(s) 1, Pharmacy: [facility], 170, cm, 06/01/22 12:55:00 EDT, Height/Length Dosing, 91.3, kg, 06/01/22 12:55:00 EDT, Weight Dosing [facility] [place] External Ambulatory Referral 2. BMI 31.0-31.9,adult (Z68.31: Body mass index [BMI] 31.0-31.9, adult) The standard range for ages 18 and older is >=18.5 and < 25 kg/m2. Your BMI today was above this range, this falls in the obese category and there are medical benefits to weight loss. We can offer counselling, referral, and/or medical support in addressing this problem. Visit [employer] for useful information to help make better [...] unspecified fo (more content not included)... [facility] Comment on above: Result Comment: Elec [...] height. This can be done either in [place]ian ([place] or metric measurements. Note that charts are available to help you find your BMI quickly and easily without having to do these calculations yourself. To calculate your BMI in [place]ian ([place] measurements, your health care provider will: [...] problems. ? BMI can be measured using Belarusian measurements or metric measurements. ? To interpret [...] 07/20/2005 Document Revised: 10/21/2018 Document Reviewed: 09/21/2018 [employer] Patient Education ? 2020 [employer]. Orthopedics Carpal Tunnel Syndrome Carpal tunnel syndrome [...] Having a job, such as being a keyseater operator or a snack bar cashier, that requires you to repeatedly move [...] and midd (more content not included)... [facility] Physician Referralon 022 Physician Referral [id number] #1.00CD:127 [facility] Vital Signs Date Time Vital Sign Value Performing Clinician Faci lity 11-20-2024 09:42-0500 Body mass index (BMI) [Ratio] 36.61 kg/m2 Genevieve MARIA Work Phone: [facility] 11-20-2024 09:42-0500 Body weight 99.79 kg Genevieve MARIA Work Phone: [facility] 11-20-2024 09:42-0500 Diastolic blood pressure 74 mm[Hg] Genevieve MARIA Work Phone: [facility] 11-20-2024 09:42-0500 Systolic blood pressure 120 mm[Hg] Genevieve MARIA Work Phone: [facility] 10-17-2024 13:10-0500 Body mass index (BMI) [Ratio] 35.35 kg/m2 Gary Enriqueta DO Work Phone: [facility] 10-17-2024 13:10-0500 Body weight 96.34 kg Gary Enriqueta DO Work Phone: [facility] 10-17-2024 13:10-0500 Diastolic blood pressure 70 mm[Hg] Gary Enriqueta DO Work Phone: [facility] 10-17-2024 13:10-0500 Systolic blood pressure 120 mm[Hg] Gary Enriqueta DO Work Phone: [facility] 09-18-2024 11:15-0400 Body mass index (BMI) [Ratio] 35.2 kg/m2 Gary Enriqueta DO Work Phone: [facility] 09-18-2024 11:15-0400 Body weight 95.94 kg Gary Enriqueta DO Work Phone: [facility] 09-18-2024 11:15-0400 Diastolic blood pressure 74 mm[Hg] Gary Enriqueta DO Work Phone: [facility] 09-18-2024 11:15-0400 Systolic blood pressure 122 mm[Hg] Gary Enriqueta DO Work Phone: [facility] 08-18-2024 10:28-0400 Body mass index (BMI) [Ratio] 34.95 kg/m2 [facility] 08-18-2024 10:28-0400 Body weight 95.25 kg [facility] 01-10-2023 14:29-0500 Body height 165.1 cm Fei Canales MD Work Phone: [employer] 01-10-2023 14:29-0500 Body mass index (BMI) [Ratio] 34.35 kg/m2 Fei Canales MD Work Phone: [employer] 01-10-2023 14:29-0500 Body temperature 98.49 [degF] Fei Canales MD Work Phone: [employer] 01-10-2023 14:29-0500 Body weight 93.62 kg Fei Canales MD Work Phone: [employer] 01-10-2023 14:29-0500 Diastolic blood pressure 79 mm[Hg] Fei Canales MD Work Phone: [employer] 01-10-2023 14:29-0500 Heart rate 75 /min Fei Canales MD Work Phone: [employer] 01-10-2023 14:29-0500 Respiratory rate 16 /min Fei Canales MD Work Phone: [employer] 01-10-2023 14:29-0500 SaO2% (BldA) [Mass fraction] 99 % Fei Canales MD Work Phone: [employer] 01-10-2023 14:29-0500 Systolic blood pressure 140 mm[Hg] Fei Canales MD Work Phone: [employer] 12-08-2022 11:51-0500 Blood Pressure Location [facility] 12-08-2022 11:51-0500 Body temperature 98.24 [degF] [facility] 12-08-2022 11:51-0500 Diastolic blood pressure 78 mm[Hg] [facility] 12-08-2022 11:51-0500 Heart rate 84 /min [facility] 12-08-2022 11:51-0500 Respiratory rate 16 /min [facility] 12-08-2022 11:51-0500 SaO2% (BldA) [Mass fraction] 100 % [facility] 12-08-2022 11:51-0500 Systolic blood pressure 114 mm[Hg] [facility] 12-04-2022 16:32-0500 Body mass index (BMI) [Ratio] 33.66 kg/m2 Jason Tracy MD Work Phone: [facility] [employer] [facility] 12-04-2022 16:32-0500 Body temperature 98.49 [degF] Jason Tracy MD Work Phone: [facility] [employer] 12-04-2022 16:32-0500 Body weight 91.76 kg Jason Tracy MD Work Phone: [facility] [employer] 12-04-2022 16:32-0500 Diastolic blood pressure 75 mm[Hg] Jason Tracy MD Work Phone: [facility] [employer] 12-04-2022 16:32-0500 Heart rate 91 /min Jason Tracy MD Work Phone: [facility] [employer] [facility] 12-04-2022 16:32-0500 Respiratory rate 16 /min Jason Trcay MD Work Phone: [facility] [employer] [facility] 12-04-2022 16:32-0500 SaO2% (BldA) [Mass fraction] 99 % Jason Tracy MD Work Phone: [facility] [employer] [facility] 12-04-2022 16:32-0500 Systolic blood pressure 123 mm[Hg] Jason Tracy MD Work Phone: [facility] [employer] 06-01-2022 12:50-0400 Blood Pressure Location Meena Carl [facility] 06-01-2022 12:50-0400 Body temperature 96.98 [degF] Meena Carl [facility] 06-01-2022 12:50-0400 Diastolic blood pressure 60 mm[Hg] Meena Aguilarell [facility] 06-01-2022 12:50-0400 Heart rate 88 /min Meena Aguilarell [facility] 06-01-2022 12:50-0400 SaO2% (BldA) [Mass fraction] 97 % Meena Aguilarell [facility] 06-01-2022 12:50-0400 Systolic blood pressure 122 mm[Hg] Meena Aguilarell [facility] 09-14-2021 10:15-0400 Body mass index (BMI) [Ratio] 31.62 kg/m2 Keyon Wilkinson MD Work Phone: [facility] Work Phone: 09-14-2021 10:15-0400 Body weight 86.18 kg Keyon Wilkinson MD Work Phone: [facility] Work Phone: 09-14-2021 10:14-0400 Body height 165.1 cm Keyon Wilkinson MD Work Phone: [facility] Work Phone: 09-14-2021 10:14-0400 Body temperature 98.2 [degF] Keyon Wilkinson MD Work Phone: [facility] Work Phone: 09-14-2021 10:14-0400 Diastolic blood pressure 93 mm[Hg] Keyon Wilkinson MD Work Phone: [facility] Work Phone: 09-14-2021 10:14-0400 Heart rate 91 /min Keyon Wilkinson MD Work Phone: [facility] Work Phone: 09-14-2021 10:14-0400 Respiratory rate 20 /min Keyon Wilkinson MD Work Phone: [facility] Work Phone: 09-14-2021 10:14-0400 SaO2% (BldA) [Mass fraction] 96 % Keyon Wilkinson MD Work Phone: [facility] Work Phone: 09-14-2021 10:14-0400 Systolic blood pressure 131 mm[Hg] Keyon Wilkinson MD Work Phone: [facility] Work Phone: Encounters Encounter Date Encounter Type Care Provider Facility Start: 12-06-2024 End: 12-06-2024 [facility] Start: 12-06-2024 End: 12-06-2024 Subsequent hospital visit by physician John Partida DO Work Phone: [facility] Comment on above: Arrived Start: 11-20-2024 End: 11-20-2024 Bamboo flowsheet Genevieve MARIA Work Phone: [facility] Start: 11-20-2024 End: 11-20-2024 Bamboo flowsheet Genevieve MARIA Work Phone: [facility] Start: 11-20-2024 End: 11-20-2024 ambulatory GENEVIEVE PINTO Not Available Start: 11-20-2024 End: 11-20-2024 Office outpatient visit 15 minutes Genevieve MARIA Work Phone: [facility] Comment on above: Second trimester pre gnancy; 20 weeks gestation of ; Diabetes mellitus screening Start: 10-17-2024 End: 10-17-2024 Subsequent hospital visit by physician John Partida DO Work Phone: [facility] Start: 10-17-2024 End: 10-29-2024 Clinisync Result Encounter Gary Enriqueta DO Work Phone: [facility] External Department Unsolicited Start: 10-17-2024 End: 10-18-2024 External Result Encounter Gary Enriqueta DO Work Phone: [facility] External Department Unsolicited Start: 10-17-2024 End: 10-29-2024 External Result Encounter Gary Enriqueta DO Work Phone: [facility] External Department Unsolicited Start: 10-17-2024 End: 10-17-2024 Office outpatient visit 15 minutes Gary Enriqueta DO Work Phone: [facility] Comment on above: Screening, , for anatomic survey; 15 weeks gestation of ; Second trimester ; Encounter for gynecological examination without abnormal finding; Vaginal discharge; STD exposure; Nausea and vomiting during Start: 10-17-2024 End: 10-17-2024 Patient encounter status Gary Enriqueta DO Work Phone: [facility] Start: 10-12-2024 End: 10-12-2024 ambulatory [facility] Start: 10-12-2024 End: 10-12-2024 Subsequent hospital visit by physician John Partida DO Work Phone: [facility] Comment on above: Arrived Start: 10-10-2024 End: 10-10-2024 ambulatory [facility] Start: 10-10-2024 End: 10-10-2024 Subsequent hospital visit by physician John Partida DO Work Phone: [facility] Comment on above: Arrived Start: 10-04-2024 End: 10-04-2024 Subsequent hospital visit by physician John Partida DO Work Phone: [facility] Start: 10-04-2024 [facility] Start: 09-18-2024 End: 09-18-2024 Office outpatient visit 15 minutes Gary Enriqueta DO Work Phone: [facility] [...] ambulatory [facility] Enriqueta Nurse [facility] Comment on above: GA: 6w5d Start: 08-07-2024 End: 08-07-2024 Clinisync Result Encounter Gary Enriqueta DO Work Phone: [facility] Unsolicited Start: 08-07-2024 End: 08-07-2024 Clinisync Result Encounter Gary Enriqueta DO Work Phone: [facility] Unsolicited Start: 08-07-2024 End: 08-07-2024 [facility] Start: 08-07-2024 End: 08-07-2024 Subsequent hospital visit by physician Óscar Villagran DNP Work Phone: [facility] Start: 08-02-2024 End: 08-02-2024 Clinisync Result Encounter Gary Enriqueta DO Work Phone: [facility] Unsolicited Start: 08-02-2024 End: 08-02-2024 Clinisync Result Encounter Gary Enriqueta DO Work Phone: [facility] Unsolicited Start: 08-02-2024 End: 08-02-2024 [facility] Start: 07-31-2024 End: 07-31-2024 Clinisync Result Encounter Gary Enriqueta DO Work Phone: [facility] Unsolicited Start: 07-31-2024 End: 07-31-2024 Clinisync Result Encounter Gary Enriqueta DO Work Phone: [facility] Unsolicited Start: 07-31-2024 End: 07-31-2024 [facility] Start: 07-31-2024 End: 07-31-2024 Subsequent hospital visit by physician Óscar Villagran DNP Work Phone: [facility] Start: 07-29-2024 End: 07-29-2024 Clinisync Result Encounter Gary Enriqueta DO Work Phone: [facility] Unsolicited Start: 07-29-2024 End: 07-29-2024 Clinisync Result Encounter Gary Enriqueta DO Work Phone: [facility] Unsolicited Start: 07-29-2024 End: 07-29-2024 ambulatory [facility] Start: 07-27-2024 End: 07-27-2024 Clinisync Result Encounter Gary Enriqueta DO Work Phone: [facility] Unsolicited Start: 07-27-2024 End: 07-27-2024 Clinisync Result Encounter Gary Enriqueta DO Work Phone: [facility] Unsolicited Start: 07-27-2024 End: 07-27-2024 ambulatory [facility] Start: 07-27-2024 End: 07-27-2024 Subsequent hospital visit by physician John Partida DO Work Phone: [facility] Comment on above: Arrived Start: 07-25-2024 End: 07-25-2024 [facility] Start: 07-21-2024 End: 07-21-2024 ambulatory [facility] Start: 07-19-2024 End: 07-19-2024 ambulatory [facility] Start: 07-13-2024 End: 07-13-2024 Subsequent hospital visit by physician John Partida DO Work Phone: [facility] Comment on above: Arrived Start: 07-13-2024 End: 07-13-2024 [facility] Start: 07-06-2024 End: 07-06-2024 Subsequent hospital visit by physician John Partida DO Work Phone: [facility] Start: 06-29-2024 End: 06-29-2024 ambulatory [facility] Start: 06-29-2024 End: 06-29-2024 Subsequent hospital visit by physician John Partida DO Work Phone: [facility] Comment on above: Arrived Start: 06-26-2024 End: 06-26-2024 [facility] Start: 06-22-2024 End: 06-22-2024 ambulatory [facility] Start: 06-20-2024 End: 06-20-2024 ambulatory [facility] Start: 06-16-2024 End: 06-16-2024 ambulatory [facility] Start: 06-14-2024 End: 06-14-2024 ambulatory [facility] Start: 06-08-2024 End: 06-08-2024 ambulatory [facility] Start: 06-08-2024 End: 06-08-2024 ambulatory [facility] Start: 05-22-2024 End: 05-24-2024 ambulatory [facility] Start: 05-22-2024 End: 05-24-2024 Subsequent hospital visit by physician Óscar Villagran DNP Work Phone: [facility] Start: 03-06-2024 End: 03-06-2024 ambulatory GARY ENRIQUETA Not Available Start: 03-04-2024 End: 03-04-2024 [facility] Start: 03-04-2024 [facility] Start: 12-08-2023 End: 12-08-2023 ambulatory GARY ENRIQUETA Not Available Start: 04-09-[address] NONE LISTED REQUEST Facility: Start: 01-29-2023 End: 01-31-2023 Subsequent hospital visit by physician Neeru Additional Xray At [facility] Comment on above: Other closed fractur e of proximal end of right fibula with routine healing, subsequent encounter Start: 01-29-2023 End: 01-31-2023 Subsequent hospital visit by physician Keyon Brown MD Work Phone: [facility] Start: 01-10-2023 End: 01-10-2023 Emergency department patient visit Fei Canales MD Work Phone: [facility] Comment on above: Injury of right ankl e, initial encounter (Primary Dx) Start: 12-08-2022 End: 12-09-2022 ambulatory Keyon BROWN Facility: [facility] Start: 12-08-2022 End: 12-08-2022 Patient encounter procedure Keyon BROWN [facility] Start: 12-04-2022 End: 12-04-2022 Emergency department patient visit Jason Tracy MD Work Phone: [facility] Comment on above: Viral illness (Prima ry Dx) Start: 09-03-2022 End: 09-03-2022 Emergency department patient visit Evan Moyer Facility:[facility] Start: 06-19-2022 End: 06-21-2022 Subsequent hospital visit by physician [facility] Additional Xray At [facility] Comment on above: Left wrist pain Start: 06-01-2022 End: 06-02-2022 ambulatory [employer] Meena Carl Facility:[facility] Start: 06-01-2022 End: 06-01-2022 Patient encounter procedure Meena Carl [facility] Start: 05-28-2022 ambulatory [employer] Meena Carl Faci lity:[facility] Start: 09-14-2021 End: 09-14-2021 Emergency department patient visit Keyon Wilkinson MD Work Phone: [facility] Comment on above: Subacute bronchitis (Primary Dx) Procedures Date Procedure Procedure Detail Performing Clinician Start: 11-20-2024 Urnls dip stick/tabl et rgnt non-auto w/o micrscp Genevieve MARIA Work Phone: Start: 10-17-2024 Urnls dip stick/tabl et rgnt non-auto w/o micrscp Gary Robison DO Work Phone: Start: 10-17-2024 RECURRENT VAGINITIS (HTRX) Gary Enriqueta DO Work Phone: Start: 10-17-2024 IGP,APTIMA HPV,AGE GDLN Gary Robison DO Work Phone: Start: 09-18-2024 Urnls dip stick/tabl et rgnt non-auto w/o micrscp Garymariya Campbello DO Work Phone: Start: 09-11-2024 BOX TEST Gary barone DO Work Phone: Start: 08-18-2024 End: 08-18-2024 Urnls dip stick/tablet rgnt non-auto w/o micrscp Gary Robison DO Work Phone: Start: 08-07-2024 ALL HCG, QUANTITATIVE C marco Robison DO Work Phone: Start: 08-07-2024 Gonadotropin chorion ic quantitative Gary Robison MD Work Phone: Start: 08-02-2024 ALL HCG, QUANTITATIVE C marco Campbello DO Work Phone: Start: 07-31-2024 ALL HCG, QUANTITATIVE C marco Campbello DO Work Phone: Start: 07-31-2024 Gonadotropin chorion ic quantitative Gary Robison MD Work Phone: Start: 07-29-2024 ALL HCG, QUANTITATIVE C marco Campbello DO Work Phone: Start: 07-27-2024 ALL HCG [...] MD Work Phone: Start: 11-22-2014 Cholecystectomy Meena Aguilarell Tonsillectomy Meena Aguilarell Tonsils and adenoids postoperative education Meena Aguilarell Plan of Treatment Date Care Activity Detail Author Start: 2069 Respiratory Syncytia l Virus (RSV) or age 60 yrs+ (1 - 1-dose 75+ series) Respiratory Syncytial Virus (RSV) or age 60 yrs+ (1 - 1-dose 75+ series) [facility] Start: 2054 Respiratory Syncytia l Virus (RSV) or age 60 yrs+ (1 - 1-dose 60+ series) Respiratory Syncytial Virus (RSV) or age 60 yrs+ (1 - 1-dose 60+ series) [facility] Start: 03-14-2025 Depression Screen Depression Screen [facility] Start: 12-19-2024 End: 12-19-2024 Patient encounter procedure 12/19/2024 9:50 AM EST Routine [facility] [address] [place] [address] Gary Robison DO [address] [place] [address] [facility] Start: 12-15-2024 End: 12-15-2024 Patient encounter procedure 12/15/2024 8:15 AM EST Appointment [facility] [address] [place] [address] John Partida, DO [address] [place] [address] Clara Castrejon, PT *[employer] 3 of 30 Sacral Pain, [facility] Comment on above: *[employer] 3 of 30 Sacral Pain, Start: 12-13-2024 End: 12-13-2024 Patient encounter procedure 12/13/2024 9:45 AM EST Appointment [facility] [address] [place] [address] John Partida, DO [address] [place] [address] Trinity Browning *[employer] 2 of 30 Sacral Pain, [facility] Comment on above: *[employer] 2 of 30 Sacral Pain, Start: 2024 Screening for malign ant neoplasm of cervix [facility] Start: 11-20-2024 End: 11-20-2025 CBC panel - Blood by Automated count CBC Lab Routine Diabetes mellitus screening Expected: 11/20/2024 (Approximate), Expires: 11/20/2025 [facility] Work Phone: Comment on above: Expected: 11/20/2024 (Approximate), Expires: 11/20/2025 Start: 11-20-2024 End: 11-20-2025 Measurement of glucose 1 hour after glucose challenge for glucose tolerance test Glucose tolerance, 1 hour Lab Routine Diabetes mellitus screening Expected: 11/20/2024 (Approximate), Expires: 11/20/2025 [facility] Comment on above: Expected: 11/20/2024 (Approximate), Expires: 11/20/2025 Start: 11-20-2024 End: 11-20-2024 Patient encounter procedure 11/20/2024 9:20 AM EST Routine [facility] [address] [place] [address] Genevieve Pinto PA [address] [place] [address] [facility] Start: 11-20-2024 End: 11-20-2024 Professional / ancillary services management 11/20/2024 8:00 AM EST Ancillary Procedure [facility] [address] [place] [address] [facility] Start: 10-17-2024 End: 01-17-2025 [...] gestation of Expected: 10/17/2024 (Approximate), Expires: 10/17/2025 [facility] Comment on above: Expected: 10/17/2024 (Approximate), Expires: 10/17/2025 Start: 10-17-2024 End: 10-17-2024 Patient encounter procedure 10/17/2024 10:50 AM EST Routine [facility] [address] [place] [id number] Gary Robison DO [address] [place] [address] [facility] Start: 10-17-2024 End: 10-17-2024 Patient encounter procedure 10/17/2024 8:15 AM EST Appointment [facility] [address] [place] [address] John Partida, DO [address] [place] [phone] Trinity Browning 16 of 30 Sacral Pain, [facility] Comment on above: 16 of 30 Sacral Pain , Start: 10-12-2024 End: 10-12-2024 Patient encounter procedure 10/12/2024 8:00 AM EST Appointment [facility] [address] [place] [address] John Partida, DO [address] [place] [address] Clara Castrejon, PT 15 of 30 Sacral Pain, [facility] Comment on above: 15 of 30 Sacral Pain , Start: 10-10-2024 End: 10-10-2024 Patient encounter procedure 10/10/2024 9:30 AM EST Appointment [facility] [address] [place], [place] [id number] John Partida, DO [address] [place] [address] Clara Castrejon, PT 14 of 30 Sacral Pain, [facility] Comment on above: 14 of 30 Sacral Pain , Start: 09-18-2024 End: 09-18-2024 Patient encounter procedure 09/18/2024 10:40 AM EDT Routine [facility] [address] [place] [id number] Gary Robison [address] [address] [facility] Start: 08-18-2024 End: 08-18-2025 ABO/Rh ABO/Rh Lab Routine Missed menses , unspecified gestational age Expected: 08/18/2024 (Approximate), Expires: 08/18/2025 [facility] Comment on above: Expected: 08/18/2024 (Approximate), Expires: 08/18/2025 Start: 08-18-2024 End: 08-18-2025 Blood type and Indirect antibody screen panel - Blood Type and screen Lab Routine Missed menses , unspecified gestational age Expected: 08/18/2024 (Approximate), Expires: 08/18/2025 [facility] Work Phone: Comment on above: Expected: 08/18/2024 (Approximate), Expires: 08/18/2025 Start: 08-18-2024 End: 08-18-2025 Drugs of abuse panel - Urine by Screen method Rapid drug screen, urine Lab Routine , unspecified gestational age Encounter for supervision of normal first in first trimester Expected: 08/18/2024 (Approximate), Expires: 08/18/2025 [facility] Comment on above: Expected: 08/18/2024 (Approximate), Expires: 08/18/2025 Start: 08-18-2024 End: 08-18-2025 US Pelvis transvaginal US OB transvaginal Imaging Routine Missed menses Expected: 08/18/2024 (Approximate), Expires: 08/18/2025 [facility] Comment on above: Expected: 08/18/2024 (Approximate), Expires: 08/18/2025 Start: 08-18-2024 End: 08-18-2024 ambulatory 08/18/2024 9:30 AM EDT Initial [facility] [address] [place] [address] [facility] Start: 08-18-2024 End: 08-18-2024 Professional / ancillary services management 08/18/2024 9:00 AM EDT Ancillary Procedure [facility] [address] [place] [address] [facility] Start: 07-23-2024 COVID-19 Vaccine ( season) COVID-19 Vaccine ( season) [facility] Start: 07-23-2024 Influenza vaccination Influenza Vacc ine (#1) [facility] Start: 07-19-2024 End: 07-19-2024 Patient encounter procedure 07/19/2024 8:00 AM EDT Appointment [facility] [address] [place] [phone] John Partida, DO [address] [place] [phone] Asia Mix, JASPER [address] [place] [phone] [facility] Start: 07-13-2024 End: 07-13-2024 Patient encounter procedure [facility] Start: 07-06-2024 End: 07-06-2024 Patient encounter procedure 07/06/2024 9:00 AM EDT Appointment [facility] [address] [place] [address] John Partida, DO [address] [place] [address] Asia Mix, PT [address] [place] [address] [facility] Start: 06-22-2024 Influenza vaccination Flu vaccine (# 1) [facility] Start: 07-23-2023 COVID-19 Vaccine ( season) COVID-19 Vaccine ( season) [facility] Start: 07-23-2022 Influenza vaccination Flu vaccine (# 1) [facility] Start: 06-22-2022 Influenza vaccination Flu vaccine (# 1) [facility] Start: 07-23-2021 Influenza vaccination Flu vaccine (# 1) [facility] [employer] Phone: Start: 08-02-2017 DTaP/Tdap/Td vaccine (2 - Td or Tdap) DTaP/Tdap/Td vaccine (2 - Td or Tdap) [facility] Start: 2015 Screening for malign ant neoplasm of cervix Pap smear [facility] Start: 2013 DTaP/Tdap/Td vaccine (1 - Tdap) DTaP/Tdap/Td vaccine (1 - Tdap) [facility] [employer] Phone: Start: 2013 Hepatitis B vaccine (1 of 3 - 19+ 3-dose series) Hepatitis B vaccine (1 of 3 - 19+ 3-dose series) [facility] Start: 2012 Hepatitis C screening Hepatitis C sc reen [facility] Start: 2009 HIV screening HIV screen [facility] Start: 2006 COVID-19 Vaccine (1) COVID-19 Vaccin e (1) [employer] Phone: Start: 2006 Depression Screen Depression Screen [facility] [employer] Start: 2005 HPV vaccine (1 - 2-d ose series) HPV vaccine (1 - 2-dose series) [employer] Phone: Start: 1998 Varicella vaccine (2 of 2 - 2-dose childhood series) Varicella vaccine (2 of 2 - 2-dose childhood series) [facility] Start: 1995 Varicella vaccine (1 of 2 - 2-dose childhood series) Varicella vaccine (1 of 2 - 2-dose childhood series) [employer] Phone: Start: 05-30-1995 COVID-19 Vaccine (#1) COVID-19 Vacci ne (#1) [facility] [employer] Start: 1994 Hepatitis B vaccine (1 of 3 - 3-dose series) Hepatitis B vaccine (1 of 3 - 3-dose series) [facility] Start: 1994 Hepatitis C screening Hepatitis C sc [facility] [employer] Phone: Bacteria identified in Urine by Culture Urine culture Microbiology Routine Missed menses Ordered: 08/18/2024 [facility] Comment on above: Ordered: 08/18/2024 CBC W Auto Different ial panel - Blood CBC and differential Lab Routine Missed menses , unspecified gestational age Ordered: 08/18/2024 [facility] Comment on above: Ordered: 08/18/2024 CHLAMYDIA TRACHOMATI S (GENITO/STI) CHLAMYDIA TRACHOMATIS (GENITO/STI) Lab Routine Vaginal discharge STD exposure Ordered: 10/17/2024 [facility] Comment on above: Ordered: 10/17/2024 Cytology Cervical or vaginal smear or scraping study Pap Smear Pathology and Cytology Routine Encounter for gynecological examination without abnormal finding Ordered: 10/17/2024 [facility] Comment on above: Ordered: 10/17/2024 Hemoglobin A1c/Hemoglobin.total in Blood Hemoglobin A1c Lab Routine Missed menses , unspecified gestational age Ordered: 08/18/2024 [facility] Comment on above: Ordered: 08/18/2024 Hepatitis B virus surface Ag [Presence] in Serum or Plasma by Immunoassay Hepatitis B surface antigen Lab Routine Missed menses , unspecified gestational age Ordered: 08/18/2024 [facility] Comment on above: Ordered: 08/18/2024 Hepatitis C virus Ab [Presence] in Serum or Plasma by Immunoassay Hepatitis C antibody Lab Routine Missed menses , unspecified gestational age Ordered: 08/18/2024 [facility] Comment on above: Ordered: 08/18/2024 HIV-1/HIV-2 antigen/antibody combination immunoassay HIV-1 and HIV-2 antibodies Lab Routine Missed menses , unspecified gestational age Ordered: 08/18/2024 [facility] Comment on above: Ordered: 08/18/2024 Neisseria gonorrhoea e DNA [Presence] in Unspecified specimen by WADE with probe detection Neisseria gonorrhea DNA probe, direct Lab Routine Vaginal discharge STD exposure Ordered: 10/17/2024 [facility] Comment on above: Ordered: 10/17/2024 Reagin Ab [Presence] in Serum by RPR RPR Lab Routine Missed menses , unspecified gestational age Ordered: 08/18/2024 [facility] Comment on above: Ordered: 08/18/2024 Rubella antibody, IgG Rubella an tibody, IgG Lab Routine Missed menses , unspecified gestational age Ordered: 08/18/2024 [facility] Comment on above: Ordered: 08/18/2024 SURESWAB(R) ADVANCED VAGINITIS PLUS, TMA SURESWAB(R) ADVANCED VAGINITIS PLUS, TMA Pathology and Cytology Routine Vaginal discharge STD exposure Ordered: 10/17/2024 [facility] Comment on above: Ordered: 10/17/2024 Immunizations Immunization Date Immunization Notes Care Provider Jaci masterson 02-16-2008 Hep A, unspecified formulation Meena Carl [facility] 08-02-2007 Hep A, unspecified formulation Meena Carl [facility] 08-02-2007 meningococcal ACWY vaccine, unspecified formulation Meena Carl [facility] 08-02-2007 tetanus toxoid, reduced diphtheria toxoid, and acellular pertussis vaccine, adsorbed Meena Carl [facility] 08-19-2000 DTaP, unspecified formulation Meena Carl [facility] 08-19-2000 measles, mumps and rubella virus vaccine Meena Carl [facility] 10-10-1997 varicella virus vaccine Meena Carl [facility] 03-09-1996 DTaP, unspecified formulation Meena Carl [facility] 03-09-1996 Hib, unspecified formulation Meena Carl [facility] 03-09-1996 measles, mumps and rubella virus vaccine Meena Carl [facility] 06-11-1995 DTP-Hib Meena Carl [facility] 06-11-1995 hepatitis B vaccine, pediatric or pediatric/adolescent dosage Meena Carl [facility] 04-05-1995 DTP-Hib Meena Carl [facility] 02-01-1995 DTP-Hib Meena Carl [facility] 01-04-1995 hepatitis B vaccine, pediatric or pediatric/adolescent dosage Meena Aguilarell [facility] 1994 hepatitis B vaccine, pediatric or pediatric/adolescent dosage Meena [facility] NEGATED: Highlighted row has not occurred!12-08-2022 influenza virus vaccine, unspecified formulation Keyon BROWN [facility] NEGATED: Highlighted row has not occurred!12-08-2022 SARS-CoV-2 mRNA (tozinameran 5y-11y) vaccine Keyon BROWN [facility] Payers Date Payer Category Payer Medicaid [employer] [place] [id number] 2022-Present [address] [place] [address] [id number] 2022 Private Health Insurance [facility] MEDICAID [id number] 2014 Unknown [id number] 1.2.840.191467.1.13.239.2. 7.3.628568.315 1994 Unknown [id number] 2.16.840.1.116512.3.579.2. 727 1994 Unknown [id number] 2.16.840.1.744794.3.579.2. 727 1994 Unknown [id number] 2.16.840.1.091557.3.579.2. 727 1994 Unknown [id number] 2.16.840.1.010294.3.579.2. 727 1994 Unknown [id number] 2.16.840.1.790813.3.579.2. 593 1994 Unknown [id number] 2.16.840.1.935546.3.579.2. 1259 1994 Unknown [id number] 2.16.840.1.631022.3.579.2. 1259 1994 Unknown [id number] 2.16.840.1.563925.3.579.2. 9 1994 Unknown [id number] 2.16.840.1.399241.3.579.2. 1259 1994 Unknown [id number] 2.16.840.1.255194.3.579.2. 9 1994 Unknown [id number] 2.16.840.1.602259.3.579.2. 174 1994 Unknown [id number] 2.16.840.1.536978.3.579.2. 174 1994 Unknown [id number] 2.16.840.1.370936.3.579.2. 174 1994 Unknown [id number] 2.16.840.1.367802.3.579.2. 174 1994 Unknown [id number] 2.16.840.1.299523.3.579.2. 174 1994 Unknown [id number] 2.16.840.1.775226.3.579.2. 174 1994 Unknown [id number] 2.16.840.1.195252.3.579.2. 174 1994 Unknown [id number] 2.16.840.1.652774.3.579.2. 174 1994 Unknown [id number] 2.16.840.1.839727.3.579.2. 174 1994 Unknown [id number] 2.16.840.1.396313.3.579.2. 174 1994 Unknown [id number] 2.16.840.1.698966.3.579.2. 174 1994 Unknown [id number] 2.16.840.1.604268.3.579.2. 174 1994 Unknown [id number] 2.16.840.1.546890.3.579.2. 174 1994 Unknown [id number] 2.16.840.1.591460.3.579.2. 174 1994 Unknown [id number] 2.16.840.1.401733.3.579.2. 174 1994 Unknown [id number] 2.16.840.1.693122.3.579.2. 174 1994 Unknown [id number] 2.16.840.1.519996.3.579.2. 174 1994 Unknown [id number] 2.16.840.1.240575.3.579.2. 174 1994 Unknown [id number] 2.16.840.1.559080.3.579.2. 174 1994 Unknown [id number] 2.16.840.1.944241.3.579.2. 174 1994 Unknown [id number] 2.16.840.1.558879.3.579.2. 174 1994 Unknown [id number] 2.16.840.1.028357.3.579.2. 174 1994 Unknown [id number] 2.16.840.1.379878.3.579.2. 174 1994 Unknown [id number] 2.16.840.1.795144.3.579.2. 174 1994 Unknown [id number] 2.16.840.1.688028.3.579.2. 174 1994 Unknown [id number] 2.16.840.1.888006.3.579.2. 174 1994 Unknown [id number] 2.16.840.1.862553.3.579.2. 174 1994 Unknown [id number] 2.16.840.1.057382.3.579.2. 174 1959 Unknown [id number] 1.2.840.796014.1.13.239.2. 7.3.992375.315 Social History Date Type Detail Facility Start: 09-14-2021 End: 03-14-2024 Tobacco smoking status [facility] Never smoker [employer] Phone: Start: 09-14-2021 End: 03-14-2024 Tobacco use and exposure Never used [employer] Start: 09-14-2021 End: 08-21-2024 Alcohol intake Current non-drinker of alcohol (finding) [employer] Phone: Start: 1995 Sex Assigned At Not on file [employer] Phone: Start: 11-24-2022 End: 01-10-2023 Exposure to SARS-CoV-2 (event) Not sure [facility] Tobacco smoking status Never [facility] Start: 07-19-2023 End: 03-14-2024 Sex Assigned At Female [facility] Start: 12-04-2022 End: 01-10-2023 History SDOH Alcohol Frequency 1 [employer] Work Phone: Start: 07-19-2023 End: 03-14-2024 History of Social function [employer] How often to you hav e a drink containing alcohol? Never [employer] (I/We) worried artemio er (my/our) food would run out before (I/we) got money to buy more. Never true [facility] At any time in the p ast 12 months, were you homeless or living in longterm [including now]? No [facility] Start: 1995 Sex [facility]igned At [facility] Start: 07-19-2023 Gender identity Identifies as female gender (finding) [facility] Start: 07-19-2023 Sexual orientation Heterosexual (finding) [facility] Start: 07-16-2024 [facility] Start: 09-18-2024 Alcoholic beverage intake Lifetime non-drinker (finding) [facility] Functional Status Date Assessment Result Facility 12-08-2022 Functional Status N/A [facility]es 06-01-2022 Functional Status N/A [facility] Clinical Notes 06-01-2022 to 12-06-2024 Clara Castrejon, PT - 12/06/2024 9:45 AM Clara Wahl, PT - 12/06/2024 9:45 AM Oskar Pinto PA - 11/20/2024 9:20 AM Lalo Olea LPN - 10/17/2024 10:50 AM Sera Instructions Note Date & Type Note Facility 12-06-2024 History of Present illness Narrative Images from the original note were not included. [facility] Daily Note Date: 12/06/2024 Patient Name: Meena Lucero : 1995 (29 y.o.) Referring Provider (secondary): Dr. Partida Diagnosis: R buttock pain, sacral pain Treatment Diagnosis: back pain, SI pain Onset Date: 09/28/24 (Referral) PT Insurance Information: [facility] Total # of Visits Approved: 16 Per Physician Order Total # of Visits to Date: 3 Plan of Care/Certification Expiration Date: 01/19/25 Pre-Treatment Pain: 8/10 Assessment Assessment: Patient reports she missed 6 wks of therapy due to holidays and miscommunication with therapy office personnel; but she would like to resume PT due to back pain. Pain 8/10 R buttock and low back, radiates down R posterior leg. Completed therex and manual therapy per doc flow. reviewed and modifeid HEP. Patient reports compliance to HEP. She reports she has an back brace she uses regularly. Strength R hip abd 4-/5 with painful MMT. Plan to focus on lumbar and piriformis tissue mobs in sidelying as patient 5 month . Plan Continue with current plan of care Exercises/Modalities/Manual: See DocFlow Sheet Education: reviewed and modifeid HEP. Patient reports compliance to HEP. She reports she has an back brace she uses regularl Goals (Total # of Visits to Date: 3) Short Term Goals Time Frame for Short Term Goals: 8 Short Term Goal 1: Patient to be educated on and independent with HEP safe ex during pregnacy-Met Short Term Goal 2: Patient to be educated on and use SI belt to decrease pain during -Met Short Term Goal 3: Increase strength R hip abd 4+/5 for improved pelvic stability Naturopathic Oncology Provider Goals Time Frame for Naturopathic Oncology Provider Goals : 16 Naturopathic Oncology Provider Goal 1: Improve functional mobility with Oswestry score <15/50 (from 22/50) Custodial Goal 2: Decrease R SI pain 4/10 at worst x3 days Treatment Tolerance: Treatment Tolerance: Tolerated treatment well. Post Treatment Pain: 6/10 Time In: 9:45 Time Out : 10:18 Timed Code Treatment Minutes: 33 Minutes Total Treatment Time: 33 Minutes Clara Castrejon, PT Date: 12/06/2024 Images from the original note were not included. [facility] Progress Report Date: 12/06/2024 Patient: Meena Lucero : 1995 Referring Provider (secondary): Dr. Partida Diagnosis: R buttock pain, sacral pain Treatment Diagnosis: back pain, SI pain Onset Date: 09/28/24 (Referral) PT Insurance Information: [facility] Total # of Visits Approved: 16 Per Physician Order Total # of Visits to Date: 3 Assessment Assessment: Patient reports she missed 6 wks of therapy due to holidays and miscommunication with therapy office personnel; but she would like to resume PT due to back pain. Pain 8/10 R buttock and low back, radiates down R posterior leg. Completed therex and manual therapy per doc flow. reviewed and modifeid HEP. Patient reports compliance to HEP. She reports she has an back brace she uses regularly. Strength R hip abd 4-/5 with painful MMT. Plan to focus on lumbar and piriformis tissue mobs in sidelying as patient 5 month . Therapy Prognosis: Good Plan Continue with current plan of care Goals Short Term Goals Time Frame for Short Term Goals: 8 Short Term Goal 1: Patient to be educated on and independent with HEP safe ex during pregnacy-Met Short Term Goal 2: Patient to be educated on and use SI belt to decrease pain during -Met Short Term Goal 3: Increase strength R hip abd 4+/5 for improved pelvic stability Naturopathic Oncology Provider Goals Time Frame for Naturopathic Oncology Provider Goals : 16 Custodial Goal 1: Improve functional mobility with Oswestry score <15/50 (from 22/50) Custodial Goal 2: Decrease R SI pain 4/10 at worst x3 days Clara Castrejon, PT Date: 12/06/2024 documented in this encounter [facility] 11-20-2024 History of Present illness Narrative Reason for [...] hours PRN ALLERGIES Allergies Allergen Reactions Hydrocodone Conner Oil Hives Codeine Rash and Unknown Chest [...] Negative. Gastrointestinal: Negative. Genitourinary: Negative. Musculoskeletal: Negative. Neurological: Negative. Psychiatric/Behavioral: Negative. OBJECTIVE Objective: Physical Exam Constitutional: Appearance: Normal appearance. She is normal weight. HENT: Head: Normocephalic. Cardiovascular: Rate and Rhythm: Normal rate. Pulses: Normal pulses. Pulmonary: Effort: Pulmonary effort is normal. Breath sounds: Normal breath sounds. Abdominal: Palpations: Abdomen is soft. Musculoskeletal: General: Normal range of motion. Neurological: General: No focal deficit present. Mental Status: She is alert and oriented to person, place, and time. Psychiatric: Mood and Affect: Mood normal. Behavior: Behavior normal. Thought Content: Thought content normal. Judgment: Judgment normal. Vitals and nursing note reviewed. Vitals: Estimated body mass index is 35.35 kg/m as calculated from the following: Height as of 04/09/23: 5' 5 . Weight as of 10/17/24: 212 lb 6.4 oz. BP: Patient's last menstrual period was 06/23/2024. ASSESSMENT & PLAN ICD-10-CM 1. Second trimester Z34.92 POCT urinalysis dipstick manually resulted 2. 20 weeks gestation of Z3A.20 3. Diabetes mellitus screening Z13.1 CBC Glucose tolerance, 1 hour CBC Glucose tolerance, 1 hour Return OB: Patient presents today for a routine obstetrics appointment. Patient is currently 20w1d . Patient states she is doing well but has complaints of being tired due to current . Patient has verbalizes frequent movement. labor precautions was discussed/given and patient was instructed to perform kick counts three times a day. Orders Placed This Encounter Procedures CBC Glucose tolerance, 1 hour POCT urinalysis dipstick manually resulted Follow Up: Patient is to return to office in 2 week for routine OB appointment. Documented by Daxa Martinez MA on behalf of: CANDACE Avitia documented in this encounter [facility] 10-17-2024 History of Present illness Narrative Reason [...] hours PRN ALLERGIES Allergies Allergen Reactions Hydrocodone Conner Oil Hives Codeine Rash and Unknown Chest [...] nursing note reviewed. Exam conducted with a optical instruments supervisor present. Vitals: Estimated body mass index is [...] Gary Robison DO documented in this encounter [facility] 10-17-2024 History of Present illness Narrative Occupational Therapy [facility] Date: 10/17/2024 Patient Name: Meena Lucero : 1995 Pt Cancelled Appt due to no reason for cancel Trinity Keys Kimberly Date: 10/17/2024 documented in this encounter [facility] 10-12-2024 History of Present illness Narrative Images from the original note were not included. [facility] Daily Note Date: 10/12/2024 Patient Name: Meena Lucero : 1995 (28 y.o.) Referring Provider (secondary): Dr. Partida Diagnosis: R buttock pain, sacral pain Treatment Diagnosis: back pain, SI pain Onset Date: 09/28/24 (Referral) PT Insurance Information: [employer] Total # of [...] hip abd 4+/5 for improved pelvic stability Custodial Goals Time Frame for Naturopathic Oncology Provider Goals : 16 Naturopathic Oncology Provider Goal 1: Improve functional mobility with Oswestry score <15/50 (from 22/50) Custodial Goal 2: Decrease R SI pain 4/10 at worst x3 days Post Treatment Pain: 4/10 Time In: 8:00 Time Out : 8:33 Timed Code Treatment Minutes: 33 Minutes Total Treatment Time: 33 Minutes Clara Castrejon, PT Date: 10/12/2024 documented in this encounter [facility] 10-04-2024 History of Present illness Narrative Physical Therapy [facility] Date: 10/04/2024 Patient Name: Meean Lucero : 1995 Pt Cancelled Appt due to therapist ill Trinity Harris Date: 10/04/2024 documented in this encounter [facility] 09-18-2024 History of Present illness Narrative Reason for Appointment: Patient ID: Meena Lucero is a 28 y.o. female who presents for Routine Visit Patient presents today for Return OB appointment. MEDICATIONS Current Outpatient Medications Medication Instructions 27-1 MG tablet Every 24 hours MV-Min-Fe Fum-FA-DHA ( 1 PO) Oral promethazine (PHENERGAN) 12.5 mg, Oral, Every 6 hours PRN ALLERGIES Allergies Allergen Reactions Hydrocodone Conner Oil Hives Codeine Rash and Unknown Chest [...] nursing note reviewed. Exam conducted with a optical instruments supervisor present. Vitals: Estimated body mass index is [...] or undercooked meat, and stay away from [facility]. Patient has been consulted regarding any further [...] Gary Robison DO documented in this encounter [facility] 08-18-2024 History of Present illness Narrative Reason [...] Date CHOLECYSTECTOMY TONSILLECTOMY Allergies Allergen Reactions Hydrocodone Conner Oil Hives Codeine Rash and Unknown Chest [...] screen, urine; Future Nurse Note: Pt given [place] [address] and advised to have labs done [...] reschedule unless she agrees to see Genevieve Pinto. Follow Up: Patient is to have labs drawn at directed and return to office for initial OB appointment with provider. Patient may call office as needed with any concerns or questions. Nurse Visit Completed by: Daxa Martinez MA documented in this encounter [facility] 07-27-2024 History of Present illness Narrative Images from the original note were not included. [facility] Therapy Daily Note Date: 07/27/2024 Patient Name: Meena Lucero : 1995 (28 y.o.) Referring Provider (secondary): Dr. Partida Diagnosis: Sacral pain Treatment Diagnosis: SI pain Onset Date: 05/29/24 PT Insurance Information: [facility] Total # of Visits Approved: 16 [...] Goals Short Term Goal 1: STG= LTG Naturopathic Oncology Provider Goals Time Frame for Naturopathic Oncology Provider Goals : 16 visits Naturopathic Oncology Provider Goal 1: Decrease subjective SI/right gluteal pain to <3/10 with activity and transitional movements Post Treatment Pain: 5/10 Time In: 0910 Time Out : 0935 Timed Code Treatment Minutes: 25 Minutes Total Treatment Time: 25 Minutes Onel Brown, PT Date: 07/27/2024 documented in this encounter [facility] 07-06-2024 History of Present illness Narrative Images from the original note were not included. [facility] Therapy Daily Note Date: 07/06/2024 [...] strengthening for self-correction of pelvic asymetry- MET Naturopathic Oncology Provider Goals Time Frame for Naturopathic Oncology Provider Goals : 10 visits Custodial Goal 1: Decrease subjective SI/right gluteal pain to <3/10 with activity and transitional movements Custodial Goal 2: Upgrade HEP for pelvic stab ex Naturopathic Oncology Provider Goal 3: Maintain symetrical pelvic alignment for 5 consecutive days Post Treatment Pain: 4/10 Time In: 0910 Time Out : 0945 Timed Code Treatment Minutes: 35 Minutes Total Time: 35 Minutes ASIA MIX PT Date: 07/06/2024 documented in this encounter [facility] 06-29-2024 History of Present illness Narrative Images from the original note were not included. [facility] Daily Note Date: 06/29/2024 [...] strengthening for self-correction of pelvic asymetry- MET Naturopathic Oncology Provider Goals Time Frame for Naturopathic Oncology Provider Goals : 10 visits Custodial Goal 1: Decrease subjective SI/right gluteal pain to <3/10 with activity and transitional movements Naturopathic Oncology Provider Goal 2: Upgrade HEP for pelvic stab ex Naturopathic Oncology Provider Goal 3: Maintain symetrical pelvic alignment for 5 consecutive days Post Treatment Pain: 2-3/10 Time In: 0915 Time Out : 0955 Timed Code Treatment Minutes: 35 Minutes Total Time: 40 Minutes ASIA MIX, PT Date: 06/29/2024 documented in this encounter [facility] [employer] [facility] 01-10-2023 Hospital Discharge instructions Fei Canales MD - 01/10/2023 3:17 PM EST There was a possible concern for fracture of the fibula. Please follow-up with Dr. Rehman for further evaluation and be sure to use crutches and be nonweightbearing until then. The following attachments cannot be sent through Care Everywhere.Ankle Sprain (Belarusian)documented in this encounter [employer] Work Phone: 12-08-2022 Hospital Discharge instructions Patient [...] and water are not available, use hand tobacco sizer. Make sure that all people in your household wash their hands well and often. Take zaxj-gwt-omoqbrx and prescription medicines only as told by [...] and water are not available, use hand tobacco sizer. This information is not intended to replace advice given to you by your health care provider. Make sure you discuss any questions you have with your health care provider. Document Released: 11/08/2006 Document Revised: 04/26/2020 Document Reviewed: 09/13/2019 [employer] Patient Education 2019 [employer]. Follow Up Care 12/08/2022 09:17:52 With:Keyon BROWN MD, FAM Address: When: only if needed [facility] Jo[facility] 12-04-2022 Hospital Discharge instructions Jason Tracy MD - 12/04/2022 4:33 PM EST Increase fluids at home. Take Zofran for any nausea. Try Imodium/loperamide for diarrhea. Call primary care doctor for close follow-up. Use Tylenol or Motrin to keep fever down. The following attachments cannot be sent through Care Everywhere.Viral Infections (Belarusian)documented in this encounter [facility] [employer] Work Phone: 06-01-2022 Hospital Discharge instructions Patient [...] height. This can be done either in [place]ian ([place] or metric measurements. Note that charts are available to help you find your BMI quickly and easily without having to do these calculations yourself. To calculate your BMI in [place]ian ([place] measurements, your health care provider will: [...] medical problems. BMI can be measured using Belarusian measurements or metric measurements. To interpret your [...] 07/20/2005 Document Revised: 10/21/2018 Document Reviewed: 09/21/2018 [employer] Patient Education 2020 [employer]. 06/01/2022 13:15:39 Carpal Tunnel Syndrome Carpal Tunnel [...] Having a job, such as being a keyseater operator or a snack bar cashier, that requires you to repeatedly move [...] 3 times per day. General instructions Take ehwk-vij-feghvap and prescription medicines only as told by [...] 11/05/2001 Document Revised: 03/17/2019 Document Reviewed: 03/17/2019 [employer] Patient Education 2020 [employer]. Follow Up Care 05/28/2022 08:22:05 With:Meena Carl CNP Address: When: only if needed [facility] Evaluation + Plan note [facility] Evaluation note Diagnosis Subacute bronchitis- Primary Acute bronchitis documented in this encounter [employer] Phone: evalewxrzk note* Diagnosis Left wrist pain Pain in joint, forearm documented in this encounter [employer] Phone: evaluation note* Diagnosis Viral illness- Primary Unspecified viral infection, in conditions classified elsewhere and of unspecified site documented in this encounter [employer] Phone: evaluation note* Diagnosis Injury of right ankle, initial encounter- Primary documented in this encounter [employer] Phone: evaluation note* Diagnosis Other closed fracture of proximal end of right fibula with routine healing, subsequent encounter documented in this encounter [employer] Phone: evaluation note* Diagnosis First trimester state, [...] in first trimester documented in this encounter [facility] HealthcareEvaluation note* Diagnosis Second trimester state, incidental 20 weeks gestation of Diabetes mellitus screening Screening for diabetes mellitus documented in this encounter [facility] HealthcareHospital course Narrative No data available for this section [facility] Hospital Discharge instructions* Attachments The following attachments cannot be sent through Care Everywhere. * Bronchitis (Belarusian) [facility] progress note No data available for this section [facility] Reason for referral (narrative) Referred by: Meena Carl CNP 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 Summary Purpose Family History No Family [...] Care Team (unrecognized sect ion and content) Insurance Counselor Relationship Specialty Start Date End Date Keyon Brown MD [address] [place] [address] PCP - General Family Medicine 12/04/22 Insurance Counselor Relationship Specialty Start Date End Date Keyon Brown MD [address] [place] [address] PCP - General Family Medicine 12/04/22 Insurance Counselor Relationship Specialty Start Date End Date Keyon Brown MD [address] [place] [address] PCP - General Family Medicine 12/04/22 Insurance Counselor Relationship Specialty Start Date End Date Óscar Villagran DNP [address] [phone] PCP - General Family Nurse Practitioner 03/14/24 Insurance Counselor Relationship Specialty Start Date End Date Óscar Villagran DNP [address] [place] [address] PCP - General Family Nurse Practitioner 03/14/24 Insurance Counselor Relationship Specialty Start Date End Date Óscar Villagran DNP [address] [place] [address] PCP - General Family Nurse Practitioner 03/14/24 Insurance Counselor Relationship Specialty Start Date End Date Óscar Villagran DNP [address] [place] [address] PCP - General Family Nurse Practitioner 03/14/24 Insurance Counselor Relationship Specialty Start Date End Date Keyon Brown MD [address] [place] [phone] PCP - General 05/12/23 Gary Robison [place] [address] PCP - [facility] 02/21/24 Insurance Counselor Relationship Specialty Start Date End Date Keyon Brown MD [address] [place] [phone] PCP - General 05/12/23 Gary Robison, [facility] [place] [phone] PCP - [facility] 02/21/24 Insurance Counselor Relationship Specialty Start Date End Date Óscar Villagran DNP [address] [place], [place] [phone] PCP - General Family Nurse Practitioner 03/14/24 Insurance Counselor Relationship Specialty Start Date End Date Keyon Brown MD [address] [place], [place] [address] [phone] PCP - General 05/12/23 Gary Robison DO [facility] [place], [facility] PCP - [facility] 02/21/24 Insurance Counselor Relationship Specialty Start Date End Date Keyon Brown MD [address] [phone] PCP - General 05/12/23 Gary Robison [place] [address] PCP - [facility] 02/21/24 Insurance Counselor Relationship Specialty Start Date End Date Keyon Brown MD [address] [place] [phone] PCP - General 05/12/23 Gary Robison, [place] [facility] [address] PCP - [facility] 02/21/24 Insurance Counselor Relationship Specialty Start Date End Date Keyon Brown MD [address] [place] [phone] PCP - General 05/12/23 Gary Robison, [place] [address] PCP - [facility] 02/21/24 Insurance Counselor Relationship Specialty Start Date End Date Keyon Brown MD [address] [place] [phone] PCP - General 05/12/23 Gary Robison, [place] [address] PCP - [facility] 02/21/24 Insurance Counselor Relationship Specialty Start Date End Date Óscar Villagran DNP [address] [place] [address] [place] [phone] PCP - General Family Nurse Practitioner 03/14/24 INFORMATION SOURCE (unrecogn ized section and content) DATE CREATED AUTHOR 02/01/2023 Papito Monge [facility] DATE CREATED AUTHOR AUTHOR'S ORGANIZ ATION 04/01/2023 [facility] DATE CREATED AUTHOR AUTHOR'S ORGANIZ ATION 11/20/2024 [facility] DATE CREATED AUTHOR AUTHOR'S ORGANIZ ATION 12/09/2024 Chrismariya Arciniega Derrick charles FOR RECORDS PERTAINING TO PATIENTS [...] BE BASED ON THE PRIMARY CLINICAL RECORDS. [facility] Alexis Bittar [facility]. provides no warranty or guarantee of the accuracy or completeness of information in this document.
== END 2024-12-12 08:10 | disposition home or self-care (01) ==
LOC: US 08:09
PROVIDERS: Visit Provider Obstetrics & Gynecology
DX: O43.112 Circumvallate placenta, second trimester (principal)
CPT/HCPCS: 76815

== ENCOUNTER 2024-12-19 08:05 | Outpatient (OUT) | payer OTHER, SELFPAY ==
--- OUTSIDE RECORDS SUMMARY | 2024-12-19 08:31 | XMS_ITS | CCD ---
Author Organization [facility] Care Team Providers Care Satellite Project Site Monitor Name Role Phone Unavailable Primary Care Provider UnavailCharli Browne Primary Care Physician Keyon Brown MD Primary Care Provider 1( [phone] ANTHONY Carl Attending UnavailKeyon Lockett Attending Unavailable Evan Moyer Attending Unavailable LISHA, DR DRUMMOND LISTED Consulting Unavaila ble [facility] NICOLE Primary Care Unavailable ENRIQUETA ., [...] Referring Unavailable JOHN PARTIDA Attending Unavailable CLINGMAN, ÓSCRA A Primary Care Unavailable OLEJOHN CAIN Referring [...] Primary Care Unavailable GARY ROBISON Referring Unavailable SUSAN SINDIARUNAKWESI Roma Primary Care Unavailable ÓSCAR VILLAGRAN Primary Care Unavailable GARY ROBISON Referring Unavailable ÓSCAR VILLAGRAN Primary Care Unavailable JOHN PARTIDA Referring Unavailable JOHN PARTIDA Attending Unavailable Allergies Allergy Classification Reported Allergen(s) Allergy Type Date of Onset Reaction(s) Facility (20 sources) Acetaminophen / HYDROcodone Drug Allergy 7 Rash, Unknown [facility] (20 sources) Acetaminophen / oxyCODONE Drug Allergy 5 Rash, Unknown [facility] (20 sources) Codeine; Translations: [codeine] Drug Allergy 7 Rash, Cutaneous eruption (morphologic abnormality), Unknown [facility] (3 sources) Acetaminophen / HYDROcodone; Translations: [acetaminophen-hy drocodone] Drug Allergy [facility] Primary Care (3 sources) Acetaminophen / oxyCODONE; Translations: [acetaminophen-ox ycodone] Drug Allergy Cutaneous eruption (morphologic abnormality) [facility] Primary Care (1 source) Acetaminophen / HYDROcodone Drug Allergy [facility] (1 source) Acetaminophen / oxyCODONE Drug Allergy [facility] (1 source) Codeine Drug Allergy [facility] (16 sources) HYDROcodone Drug Allergy 3 [facility] Healthcare (16 sources) orange allergenic extract Drug Allergy 5 [facility] Medications Current Medications Medication Drug Class(es) Dates [...] extended release oral tablet (6 sources) Uncompetitive N-zrdidx-S-aspartate Receptor Antagonist, Sigma-1 Agonist Start: 09-14-2021 take 1 tablet by mouth every twelve hours as needed for cough Dextromethorphan-g uaiFENesin 60-1200 MG TB12 Take 1 tablet by mouth every 12 hours as needed (COUGH CONGESTION) 28 tablet 0 09/14/2021 Active dextromethorphan hydrobromide 3 mg/ml / promethazine hydrochloride 1.25 mg/ml oral solution (6 sources) Phenothiazine, Uncompetitive X-hctbvg-E-aspartate Receptor Antagonist, Sigma-1 Agonist Start: 05-31-2018 promethazine-dextr [...] day(s), # 30 tab(s), Refills(s) 1, Pharmacy: [facility], 170, cm, 06/01/22 12:55:00 EDT, Height/Length [...] TID, # 15 tab(s), Refills(s) 0, Pharmacy: [facility], 170, cm, 09/03/22 14:31:00 EDT, Height/Length [...] NEGATED: Highlighted row has been ruled out!Unclassified (6 sources) No known active problems 05-22-2024 Results Test Name Value Interpretation Reference Range Facility Urinalysis macro (dipstick) panel (U)on 11-20-2024 Bilirubin, UA Negative Negative - 4(70) +++ mg/dL [facility] Blood, UA Negative Negative - 50 Darnell/mcL [facility] Clarity, UA Clear [facility] re Color, UA Yellow [facility] Glucose, UA Negative Negative - 2000(110) ++++ mg/dL [facility] Interpretation and review of laboratory results Abnormal [facility] Health[facility] re Ketones, UA Negative Negative - 160(16) ++++ mg/dL [facility] Leukocytes, UA Positive Negative - 500+++ Shona/mcL [facility] Comment on above: small Nitrite, UA Negative Negative - Positive [facility] pH, UA 7.5 5 - 9 [facility] [employer] Protein, UA Negative Negative - 1999(20) ++++ mg/dL [facility] Spec Grav, UA 1.015 1 - 1.03 [facility] Urobilinogen, UA 0.2 0.2 - 12 mg/dL [facility] IGP,APTIMA HPV,AGE GDLNon AGE GDLN ACOG TESTING Note . [facility] Comment on above: TESTS RESULT FLAG UN ITS REF RANGE LAB Clinician Provided Cytology Information Source.............Cervix No. of containers..01 ThinPrep Vial Age Algo ACOG Subha... -20 12 FLAG LEGEND: L-Low Normal,H-High Normal,LL-Alert Low,HH-Alert High <-Panic Low,>-Panic High,A-Abnormal,AA-Critical Abnormal Performed at: 01 =[facility] [address] [place] [address] Yulisa Mustafa MD, IGP, RFX APTIMA HPV ASCU Note . [facility] Comment on above: TESTS RESULT FLAG UN ITS REF RANGE LAB DIAGNOSIS: 02 NEGATIVE FOR INTRAEPITHELIAL LESION OR MALIGNANCY. FUNGAL ORGANISMS MORPHOLOGICALLY CONSISTENT WITH FELIPE SPECIES ARE PRESENT. Specimen adequacy: 02 Satisfactory for evaluation. Endocervical and/or squamous metaplastic cells (endocervical component) are present. Performed by: Estefany Boucher, Display Manager ([facility]) . 02 Note: Note 03 The Pap [...] <-Panic Low,>-Panic High,A-Abnormal,AA-Critical Abnormal Performed at: [address] [address] Pily Shields PhD, [address] [address] Yulisa Mustafa MD, Performed at: [address] [id number] [employer] Worker: Yulisa Mustafa MD, Phone: [phone] Performed at: [address], [place], [place] [id number] [employer] Worker: Pily Shields PhD, Phone: [phone] SPATULA-ALONE CERVIX [facility] Healthcar e RECURRENT VAGINITIS (HTRX)on 10-18-2024 ATOPOBIUM VAGINAE 0 [facility] ATOPOBIUM VAGINAE Not detected [facility] BVAB 2,3 (BACTERIAL VAGINOSIS ASSOCIATED BACTERIA 2, 3); MOBILUNCUS SPP 0 [facility] BVAB 2,3 (BACTERIAL VAGINOSIS ASSOCIATED BACTERIA 2, 3); MOBILUNCUS SPP Not detected [facility] FELIPE ALBICANS, PARAPSILOSIS, TROPICALIS 0 [facility] FELIPE ALBICANS, PARAPSILOSIS, TROPICALIS Not detected [facility] Healthcare FELIPE GLABRATA 0 [facility] Hea lthcare FELIPE GLABRATA Not detected [facility] FELIPE KRUSEI 0 [facility] Healt hcare FELIPE KRUSEI Not detected [facility] Hea lthcare CHLAMYDIA TRACH[facility]ATIS 0 [facility]LAM[facility] TRACHOMATIS Not detected [facility] GARDNERELLA VAGINALIS 0 [facility] GARDNERELLA VAGINALIS Not detected [facility] MEGASPHAERA (TYPES 1, 2) 0 [facility] MEGASPHAERA (TYPES 1, 2) Not detected [facility] MYCOPLASMA GENITALIUM 0 [facility] MYCOPLASMA GENITALIUM Not detected [facility] NEISSERIA GONORRHOEAE 0 [facility] NEISSERIA GONORRHOEAE Not detected [facility] TRICHOMONAS VAGINALIS 0 [facility] TRICHOMONAS VAGINALIS Not detected [facility] Healthcar e Urinalysis macro (dipstick) panel (U)on 10-17-2024 Bilirubin, UA Negative Negative - (70) +++ mg/dL [facility] Comment on above: n Blood, UA Negative Negative - 50 Darnell/mcL [facility] Clarity, UA Clear [facility] Healthca re Color, UA Yellow [facility] Health[facility] e Glucose, UA Negative Negative - 1999(110) ++++ mg/dL [facility] Interpretation and review of laboratory results Normal [facility] Health[facility] re Ketones, UA Negative Negative - 160(16) ++++ mg/dL [facility] Leukocytes, UA Negative Negative - 500+++ Shona/mcL [facility] Nitrite, UA Negative Negative - Positive [facility] pH, UA 6 5 - 9 [facility] Protein, UA Negative Negative - 1999(20) ++++ mg/dL [facility] Spec Grav, UA 1.03 1 - 1.03 [facility] Urobilinogen, UA 0.2 0.2 - 12 mg/dL [facility] Urinalysis macro (dipstick) panel (U)on 09-18-2024 Bilirubin, UA Negative Negative - 4(70) +++ mg/dL [facility] Blood, UA Negative Negative - 50 Darnell/mcL [facility] Clarity, UA Clear [facility] Healthca re Color, UA Yellow [facility] Health[facility] e Glucose, UA Negative Negative - 1999(110) ++++ mg/dL [facility] Interpretation and review of laboratory results Normal [facility] Healthca re Ketones, UA Negative Negative - 160(16) ++++ mg/dL [facility] Leukocytes, UA Negative Negative - 500+++ Shona/mcL [facility] Nitrite, UA Negative Negative - Positive [facility] pH, UA 6.5 5 - 9 [facility] Healthcar e Protein, UA Negative Negative - 1999(20) ++++ mg/dL [facility] Spec Grav, UA 1.015 1 - 1.03 [facility] Urobilinogen, UA 0.2 0.2 - 12 mg/dL [facility] Healthcar e BOX TESTon 09-11-2024 BOX TEST SENT OUT [facility] BOX1 UNITY [facility] Healthcar e BOX2 11/11/24 [facility] [employer]CD[employer] e UNITY BOX [facility] Health[facility] e HCG ( test) Ql (U)o n 08-18-2024 Interpretation and review of laboratory results Abnormal [facility] Healthca re Preg Test, Ur Positive [facility] Urinalysis macro (dipstick) panel (U)on 08-18-2024 Bilirubin, UA Negative Negative - 4(70) +++ mg/dL [facility] Blood, UA Negative Negative - 50 Darnell/mcL [facility] Clarity, UA Clear [facility] Healthca re Color, UA Yellow [facility] Healthcar e Glucose, UA Negative Negative - 1999(110) ++++ mg/dL [facility] Interpretation and review of laboratory results Abnormal [facility] Health[facility] re Ketones, UA Negative Negative - 160(16) ++++ mg/dL [facility] Leukocytes, UA Negative Negative - 500+++ Shona/mcL [facility] Nitrite, UA Positive Negative - Positive [facility] Comment on above: small pH, UA 7.0 5 - 9 [facility] Healthcar e Protein, UA Negative Negative - 2000(20) ++++ mg/dL [facility] Spec Grav, UA 1.015 1 - 1.03 [facility] Urobilinogen, UA 0.2 0.2 - 12 mg/dL [facility] ALL HCG, QUANTITATIVEon 07-23 Interpretation and review of laboratory results Abnormal [facility] re MHPT HCG, QUANT 63735.0 High [facility] Heal thcare Comment on above: Non-preg premeno <=5 Postmeno <=8 Male <=3 If HCG results do not concur with clinical observations, additional testing to confirm results is recommended. Original Ordering Provider: GARY HARRELLZIO CLINIS[facility]NC [facility] Healthcar e HCG, Quanton 08-07-2024 HCG, Quant 32776.0 mIU/mL High <5 [facility] Comment on above: Result Comment: Non-preg premeno <=5 Postmeno <=8 Male <=3 If HCG results do not concur with clinical observations, additional testing to confirm results is recommended. Performed By: #### B HCG #### [facility] [address] [place] [address] [employer]am Worker: Armen Madrigal MD HCG, Quantitative, on 08-07-2024 [place] [address].0 m[IU]/mL High [facility] Comment on above: Non-preg premeno <=5 Postmeno <=8 Male <=3 If HCG results do not concur with clinical observations, additional testing to confirm results is recommended. Interpretation and review of laboratory results Abnormal [facility] ALL HCG, QUANTITATIVEon 07-23 Interpretation and review of laboratory results Abnormal [facility] Healthca re MHPT HCG, QUANT 1366.0 High [facility] Comment on above: Non-preg premeno <=5 Postmeno <=8 Male <=3 If HCG results do not concur with clinical observations, additional testing to confirm results is recommended. Original Ordering Provider: [facility]LL[facility] HCG, Quanton 08-02-2024 HCG, Quant 1366.0 mIU/mL High <5 [facility] Comment on above: Result Comment: Non-preg premeno <=5 Postmeno <=8 Male <=3 If HCG results do not concur with clinical observations, additional testing to confirm results is recommended. Performed By: #### B HCG #### [facility] [address] [place] [address] [employer] Worker: Armen Madrigal MD ALL HCG, QUANTITATIVEon Interpretation and review of laboratory results Abnormal [facility] MHPT HCG, QUANT 506.3 High [facility] Comment on above: Non-preg premeno <=5 Postmeno <=8 Male <=3 If HCG results do not concur with clinical observations, additional testing to confirm results is recommended. Original Ordering Provider: GARY JEFF [facility] e HCG, Quanton 07-31-2024 HCG, Quant 506.3 mIU/mL High <5 [facility] Comment on above: Result Comment: Non-preg premeno <=5 Postmeno <=8 Male <=3 If HCG results do not concur with clinical observations, additional testing to confirm results is recommended. Performed By: #### B HCG #### [facility] [address] [place] [address] [employer]am Worker: Armen Madrigal MD HCG, Quantitative, on 07-31-2024 HCG.beta subunit Qn 506.3 m[IU]/mL High [facility] Comment on above: Non-preg premeno <=5 Postmeno <=8 Male <=3 If HCG results do not concur with clinical observations, additional testing to confirm results is recommended. Interpretation and review of laboratory results Abnormal [facility] ALL HCG, QUANTITATIVEon Interpretation and review of laboratory results Abnormal [facility] MHPT HCG, QUANT 200.3 High [facility] Comment on above: Non-preg premeno <=5 Postmeno <=8 Male <=3 If HCG results do not concur with clinical observations, additional testing to confirm results is recommended. Original Ordering Provider: GARY AGUILAR ENRIQUETA [facility] HCG, Quanton 07-29-2024 HCG, Quant 200.3 mIU/mL High <5 [facility] Comment on above: Result Comment: Non-preg premeno <=5 Postmeno <=8 Male <=3 If HCG results do not concur with clinical observations, additional testing to confirm results is recommended. Performed By: #### B HCG #### [facility] [address] [place] [address] [employer] Foam Worker: Armen Madrigal MD ALL HCG SERUM,QUALITATIVEon 07-27-2024 Interpretation and review of laboratory results Abnormal [facility] MHPT HCG SCREEN, BLOOD Positive Abnormal NEG [facility] Comment on above: If HCG results do not concur with clinical observations, additional testing to confirm result is recommended. This test is not labeled for use as a tumor marker. [facility] has confirmed the use of plasma for this test. This has not been cleared or approved by the U.S. Food and Drug Administration. The FDA has determined that such clearance is not necessary. Original Ordering Provider: GARYMariya AGUILAR ENRIQUETA [facility] HCG Screen, Bloodon 07-27-20 24 HCG Screen, Blood Positive Abnormal NEG [facility] Comment on above: Result Comment: If HCG results do not concur with clinical observations, additional testing to confirm result is recommended. This test is not labeled for use as a tumor marker. [facility] has confirmed the use of plasma for this test. This has not been cleared or approved by the U.S. Food and Drug Administration. The FDA has determined that such clearance is not necessary. Performed By: #### H CG #### [facility] [address] [place] [address] [employer]am Worker: Armen Madrigal MD HCG, Quanton 07-27-2024 HCG, Quant 73.4 mIU/mL High <5 [facility] Comment on above: Result Comment: Non-preg premeno <=5 Postmeno <=8 Male <=3 If HCG results do not concur with clinical observations, additional testing to confirm results is recommended. Performed By: #### B HCG #### [facility] [address] [place], [place] [id number] [employer] Worker: Armen Madrigal MD HCG, Quanton 06-08-2024 HCG, Quant <1.0 Normal <5 [facility] Comment on above: Result Comment: Non-preg premeno <=5 Postmeno <=8 Male <=3 If HCG results do not concur with clinical observations, additional testing to confirm results is recommended. Performed By: #### B HCG #### [facility] [address] [place] [address] [employer] Foam Worker: Armen Madrigal MD XR SACRUM COCCYX (MIN 2 VIEW S)on 05-24-2024 XR SACRUM COCCYX (MIN 2 VIEWS) HISTORY: Sacral pain. TECHNIQUE: 3 views sacrum and coccyx. COMPARISON: None. FINDINGS: Sacroiliac joints are normal. No fracture or acute osseous abnormality is identified. IMPRESSION: No acute process. Interpreted by: Parker Coleman MD Signed by: Parker Coleman MD 05/24/24 Final result Normal [facility] HCG, Quanton 03-04-2024 HCG, Quant 3680.0 mIU/mL High <5 [facility] Comment on above: Result Comment: Non-preg premeno <=5 Postmeno <=8 Male <=3 If HCG results do not concur with clinical observations, additional testing to confirm results is recommended. Performed By: #### B HCG #### [facility] [address] [place], [place] [id number] [employer] Worker: Armen Madrigal MD Cytology Cervical or vaginal smear or scraping studyon 05-26-2023 [facility] RAD - MISCon 02-01-2023 RAD - MISC [id number] #1.00CD:127 Normal [facility] XR ANKLE RIGHT (MIN 3 VIEWS) on 01-29-2023 FINDINGS/IMPRESSION: 1. Compression fracture tip of the fibula no longer separately seen. 2. Anatomic alignment throughout. 3. Soft tissue swelling has resolved. [facility] EXAM: XR ANKLE RIGHT (MIN 3 VIEWS). HISTORY: Other closed fracture of proximal end of right fibula with routine healing, subsequent encounter. COMPARISON: 01/10/2023. [facility] Mauro Anton Jr., MD - 01/29/2023 EXAM: XR ANKLE RIGHT (MIN 3 VIEWS). HISTORY: Other closed fracture of proximal end of right fibula with routine healing, subsequent encounter. COMPARISON: 01/10/2023. IMPRESSION: FINDINGS/IMPRESSION: 1. Compression fracture tip of the fibula no longer separately seen. 2. Anatomic alignment throughout. 3. Soft tissue swelling has resolved. [employer] Phone: Radiology Study observation (narrative) [employer] Phone: XR ANKLE RIGHT (MIN 3 VIEWS) Ordered By: Mauro Anton on 01-29-2023 [employer] Phone: RAD - MISCon 01-11-2023 RAD - MISC [id number] #1.00CD:127 Normal [facility] XR ANKLE RIGHT (MIN 3 VIEWS) on 01-10-2023 FINDINGS/IMPRESSION: 1. Very small nondisplaced incomplete fracture is questioned in the distal tip of the right fibula, with mild surrounding soft tissue swelling. 2. No other fracture, malalignment, significant arthritis or acute bony abnormality is seen. [facility] CLINICAL HISTORY: Right ankle pain and swelling since an injury yesterday. RIGHT ANKLE 3 VIEWS: [facility] João Amezquita MD - 01/10/2023 CLINICAL HISTORY: Right ankle pain and swelling since an injury yesterday. RIGHT ANKLE 3 VIEWS: IMPRESSION: FINDINGS/IMPRESSION: 1. Very small nondisplaced incomplete fracture is questioned in the distal tip of the right fibula, with mild surrounding soft tissue swelling. 2. No other fracture, malalignment, significant arthritis or acute bony abnormality is seen. 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 Obesity due to excess calories BMI [...] to 60 minutes before meals Pickup at [facility] Unchanged multivitamin, ( Multivitamins with Vitamin B Complex, Vitamin C, Minerals and L-Methylfolate oral capsule) 1 Capsules By Mouth Every day Contact prescribing physician if questions or concerns Unchanged ondansetron (Zofran ODT 4 mg Tab-Dis) 1 Tablets By Mouth 3 times a day Contact prescribing physician if questions or concerns Pharmacy Information [facility]: [address], [place] [phone] Medications and Immunizations Administered Not Given influenza virus vaccine, inactivated, Postpone due to refusal SARS-CoV-2 mRNA (tocassandranameran 5y-11y) vac, Postpone due to refusal Allergies Percocet /325 (Hives, Rash) Vicodin (Hives) codeine (Hives, Rash) Problems Ongoing - Any problem that you are currently receiving treatment for. 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 ? Live in a penitentiary. ? Travel on cruise ships. What are [...] immune system (more content not included)... Normal [facility] ED Note-Physicianon 12-08-19 ED Note-Physician [id number] #1.00CD:127 Normal [facility] Family Medicine Office/Clini c Noteon 12-08-2022 [...] for influenza and COVID. 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 Normal [facility] Comment on above: Result Comment: Elec [...] 1 years old. ? Live in a penitentiary. ? Travel on cruise ships. What are [...] and water are not available, use hand event mgr. ? Make sure that all people in your household wash their hands well and often. ? Take upue-qyz-dcczlat and prescription medicines only as told by [...] person (more content not included)... Normal [facility] COVID-19, Rapidon 12-04-2022 SARS-CoV-2 (COVID-19) RNA [...] management decisions. Fact sheet for Healthcare Providers: https://www.fda.gov/media/444206/download Fact sheet for Patients: https://www.fda.gov/media/114719/download Methodology: Isothermal Nucleic Acid Amplification Specimen Description .NASOPHARYNGEAL SWAB [facility] Rapid influenza A/B antigens on 12-04-2022 Flu A Antigen Negative NEGATIVE [facility] Comment on above: for Influenza A Anti gen Flu B Antigen Negative NEGATIVE [facility] Comment on above: for Influenza B Anti gen. [facility] C Urineon 09-06-2022 Bacteria identified Cx Nom (U) Microbiology PROCEDURE: Urine Culture [R1] SOURCE: U CleanCatch BODY SITE: COLLECTED DATE/TIME: 09/03/2022 14:49 EDT RECEIVED DATE/TIME: 09/04/2022 07:34 EDT START DATE/TIME: 09/04/2022 07:34 EDT FREE TEXT SOURCE: Derrick BELLAMY, Neil Mercado PA-C FINAL REPORTS Final Report [] Verified Date/Time: 09/06/2022 11:12 EDT <10,000 cfu/ml Mixed skin contaminants Performing Locations R1: This test was performed at: [facility], [address] [place] [address], [id number] , [place], [facility] Comment on above: Performed By: #### 2 [id number], [id number] ####[facility] [address] [place] [id number] Coding Summary.on 09-04-2022 Coding Summary. CD:[id number] XCrO86eyYNhqC0OE8hDQ X3CTRFXYWGUQN4FWM0kg JW4USuoU6IjkzUf XmhakAYcMY80QNh0EBP1 mTulTIzvrG7zbIKjL3p7 KhXfBE30iX28DFjxNOUk IrJ1IsHoofsvvMKd P5gcBfOldDXsIvi+PHRh YmxlIHdpZHRoPScxMDAl YuObmDdfXC9iRv4nLTHb LWNvbGxhcHNlOiBj d7gbKENbNJenAJ5nfZft M1YqkAB6BFQll3s5Ze28 dHI+TETdEMG5hKnoXCjc q603WoZrr3cyITE2 qXTkPYxrKMB7O47gr7H1 JCMnIWIvGOG3pJB5cJ8a sYshnkugF3CmrZIxGuZ9 CKU5mPBttQ2njWqi mbafyU4dYem+V29ETK5M VDGBZW8UIqw3V0VyJmkp dHI+HL77GREnVF36iPEg qEZco5tghIp6LoIw GQHkWAU3wMbzHMnhk0Bm BBWyY22snLByg5E3NFLn tNknwLFyXqHmhGD0sY7m ZCmifyxtq1yjhpos Daqpu6jdku57xQ65Z37h IKerGOClXUU5JRIcATLw oUfbev7dmB4wKk1+IDxj c9nnf3jnjCd4DlBo YOIguoIqsZicHXE7g3Ie Zi91I1BhqXqpp8BwSoo9 vl62kOOtu1T6zVP8WRov RUUbeJ2rHMzuEnC2 ITPiLtCbjS58sDSsNLif Yj5xrVuuiPasIL4qYDHs zzgxSNRbeF2nYYHlhQNo rHadBO6mHKImekev p252FbAhLYC5UXJffPJm E8SlkA3pFjXmEDVzGLFm E2VrrDJtPDxkO476HMks ImL4YLYyvoXqY8Fw HLCbrEodAgJ5m9A9Dc0Z b2VtvcqnZSI7LZqcJJPo NrK5DvRfTiY7G5DqTtd5 TGPctQhvVF9cD2Ly CJMyzbatyvgbgOD7BKWg PNBybQ04qRSlPIgtMl5e i4O6y691BMRlDKKhwU01 Xb2plFxvFPUucIFQ rF8uhahvx8gpyxebAxOd BROeGLg6EVi4TCWyfQhs LzLcWFC0DoQ0CMI8hFEa yJ7nlQpgyncziQ0d Oyc+R91bnH4bHBP3IEW0 omokKVFstzPvTB10ZI30 M1LkUsjgdODkeVS+PGRp pyZssGqeYE9iEjOg y5mbw3KcKJfoN9CeTCLg AAdkEvd3CSXaNVE9qQF1 hD3vREGzJMjcm7S5sSX7 B4YslmXybp8jh2cb MEEfUOljJ27yvFKox0F6 TRSbsPA3MDCchKqjIeZu vY11Pww+NTHupJasz0Ts Ouiuh8mob8xydIp3 IjMwJSIgdmFsaWduPSJ0 f9VgZv57O99wYKrqNNQt LJGmLZOaBIWqqNvfha8j lB8zBf3+PGNvbCB3 aIB4dK2sGLJcBhL9DVuz T088VoPlqPNfLfpea7yv o7esqJu3MeIwNTCqifIe hPrrXOZ5y2JlPf63 Z10kHAmyRDRiAMMeYAEx ZOYbyAldhs4zvV5nNt4+ QB5jb9bvkc33tW54cQA+ RQAjMJL1dLftINqk KNJzkZ0mOEpyRhJ3DSKj EvGxvL01pBElDOphXk4u fKbrpZupHG6dKPAbkyuv j735EqZxi1wzOQAk dPLbQJhyNOH5K95ps3Q9 GQAoRRBgFOO8oTP2nJ6x bGlnbjogbGVmdDsgdmVy cLcfRAtpJKajJ757 IHRvcDsnPlBhdGllbnQg MpFjANv4S0YlBlh1IVRu yIjiIA2weVClPZeoEu8x tVvmjHpsSJ5zCJIl ozlui767CpTpm1ydYYTb mJRtSTifXIS7M64dc3J0 RBAcKXYrBCP2fJR0fC2n bGlnbjogbGVmdDsg euVmwBikTHjtPOogC619 IHRvcDsnPkJpcnRoIERh yVH3KI21LI95uMRhp0N9 hPT8S1CjTILgcdkg wujuvWK7RZQfMOQvbQ64 In3dhHukTe2fPNDiKHO1 IZTnrGUwW1EvyD6hMqWv AXOkHYHiE7MeoQEd CFykP667KIqoGrC1HBGg vrSkY5OrJEOvzHbuIdJ0 c3E5Az0XU1Y1SE27SZ11 lNCfj2F5yQN0Y5Kp IZFrwuiodkqhoOA0BGZg ZFNzpY70Jk4dyYcaQj8j DPNwBYJ2ZOAheBTbI3Yj pH4zIbJhINCdNOIu B6PmqBVuXZfhF671STxt OsA3YSHqenSnY2PuGXJc aOrsHdO8f2K9Wi4WGSk4 OM15TO80lFIzl1P9 nWM6X0WyOCWpcfyyawwd gBC5OEZqHLGwvY65Gf8h yTenSz1lJTNnNSD9ENLi jJXgZ4BebW3xAaXu UTHsYEQuR6RoyDAsALqj C112WFlkWhS7OXCelxMp L5YrGHLxyNkuOgQ7r2G5 Cr8CZLKpWQ06OKL0 iPK4UX95JM21B4XfWdfm dGFibGU+PHRhYmxlIHdp ZHRoPScxMDAlJyBzdHls UB9mCg0sTVMfQFLq aOpyoUCtWwOkj8paJEFu RExsKK1drRvcR8RcoBX2 AQPsh8b9Nw92L28sO1Vl dXA+LVKcmFG7lLY2 tR3wWrHoYeJ6QJqwC845 DhJdiFFdKnaxx4hoi7cn jLk1EgL5JSNkunFayFtf SIM2r4PoDy84Q09r IHdpZHRoPSIxNSUiIHZh gXalqk8ynO8wSl8+PGNv vUQ8aDI5vD1yBcJpCoX3 PEjvR653RbSmmRKa Ntcim2ygv7iiuYc9SsFx DMEklnCssJngPJS5r1Kl Jl76I3FrcVsqx1EcXuh1 fv42rHLcc5V5zEN1 G0CbLMPwmefagXMsyKqv DO2tQLKzufavXOScfS9k YPIvP6x3QxWoBmT9WVfk E6NfipV7YRHzjOPi SMgjDGJ1Q12jw6L5JGXp FZBzQNT1xHH3qF7tqQtl bjogbGVmdDsgdmVydGlj FNvuIZqeK764JOPh pRmbSWZxjI8gNRBbiEKa iJbwJB9aRLTchmadHbCC Dt1DCEUtAQyFIKcPTD8z RTwvdGQ+PHRkIHN0 uQcdDYdoVLPqmB8vSHUz A8l6EzRyPgO7XUqcM4Kb TAGmrfiaUp80vM1hSpBb NoV7IAxsN0RhklQ7 ZMFmgLTzDCgtFLM1N30o n7X5CUKhBPXtGVU4tCJ7 aH4hpWfbwgfciFTzaKtk dmVydGljYWwtYWxp F040NUClrXwqYhBsJvY9 JoL4KQN4R2WpZmr6CBTw nIezWU4nmLIgSHhaQb6l aLyhtRxxFB6yTQMq aqhqRSKgzM4zWYCwvLDr bLwrFW7eUKTdxpktm578 EzQjBGT2WRPkeYXqW5Lh yY8mYrQhWFNdHSXf Y1TxoDZdUXlhO350KEai IdX7BBCegrFnQ6NiKNQs dHbgMuZ6o5O5Pb8iWzUJ ZWFyczwvdGQ+PHRk FLY4bFcsFPmdRDXzhA0p ZQFdH3x5ChPqRxS2EVfz C8YpPTTzsndwFu28xO0v IlAgTwJ7ZPspY5Ho aaG9VLHtdNGfCBzlGZS6 N97gs7O8WTKcSEImDDQ4 hCN8gZ5yrShseyijxMCo dDsgdmVydGljYWwt JQuoP770WQCxpAblErQw bWFsZTwvdGQ+PHRkIHN0 xTnrYQtlZBJtqA5bRJRc E1c3RtDgKdK0ZPtz V7JuADRgjmzcIz67aL1o LsKyMxI2VThdP9LfndW0 RRSatFOgEQefBRQ1M59s i2A9CFSiREGyIFG9 mAS2aR8onDnnahxvhNTz dDsgdmVydGljYWwtYWxp W657SCMkpOfiMtXbNEXl YC6zzDpijEF+PC90 vy12P9GlMcnqAyl2LHJg NSJ6mBL0gG9cNNNeSRqo h0B8aQB6Y4NsqiDzkv1d f7onRRHvAJhhH23k mISca5S6GGToxXV2URXc ySupLrVzrS59Nnn+PGNv dWznc9FhLjcbg9mmq8pr dVq1VaHbKZKurfEi nIatCPK9b1FeWd78N91i IHdpZHRoPSIzMCUiIHZh cIroqs3ofP0kYp5+PGNv cCS1iZH6wA1eVrSj WmL1VDutK557SnKpfBAo Bavey3dlt9myzMk6VoKk VORnzvSdwSzfSOK8w5Hp Su27F9OeuQwhz4Xr Wox8ex51aKVlu0O2dWF3 H4MsIJIzqhgzjWFekWrr CY6gEJRehjlpOQZzmC0r NGXaI3s2GvRfFfU0 OQvdZ6JduqC1UWImgUQs AJZmjIAUgU2mvqwnb2eo fmusDeHdMPUwTPr8YDy5 LWFsaWduOiBsZWZ0 AaJ2LNW0mBQigJ7njLvn gshqkR8wMlo+LXk8m6vz aPBgBS2noWY8YX56QF69 oYPxk1N1vKE0F1Vp BPJvwptwkldnjUZ2IOQs NWXobU00Le5vsNwiWn2a EVKpWQR7VQBirIGiZ7Zw bP7xDuRcAAZjEQUa T6KsoHIcABmfY432CVwz NgO1GVNjimGiT6QdAGOv wTerIjH9i1F7Ey4RFT38 XZ34XI92jRJnf7S7 tXB1P9LmECVibpxdlmhn uAP8NKToPLTjvO13Fs7s pKoeRq6kIEXaPKP1MYCh fKUwS9AbmE6qUsTg QCUlHJKlJ6EueJBpMGlw X854PAxgImF3MLVvbeMz I6XtAFUahAhhByK3u0W8 Kn5KHr10EB46IA90 pQBub7P4cDR6A9YfFTRe ievxoqhewXS8ZSKfWNFr xG82Wl7hsOjxRy6qNCVk SYX9WLLsgCAeZ2Zj kD6gYxNoQIPnQLMiA3Tg sETlOHtsE836OZdkTdN3 GVJiswOlD9KcERSshTvm SwS4d4D6Sl9TNHfz pyf5S0GxOmfthYP+PC90 TEDoEH87gTVeaVWao9wm bHi5XmVlUTWkDGG0gGez PIehz6JjTFWzJ99p bGFw (more content not included)... Normal [facility] Consent for Treatmenton 08-22 Consent for Treatment [id number] #1.00CD:127 Normal [facility] Discharge Instructionson Discharge Instructions [id number] #1.00CD:127 Normal [facility] ED Clinical Summaryon 2021 ED Clinical Summary [place] [id number] ED Clinical Summary Person Information Name: [facility] Age[facility] 26 Years : 1995 Sex: Female Language: Filipino PCP: Charli LOPEZ Marital Status: Single Visit [...] 09/03/2022 15:51:51 09/03/2022 15:51:51 09/03/2022 15:51:51 ADDRESS: [address] [place] [id number] PHYS DOC NOTES: MEDICAL INFORMATION: Prescriptions Given: New Medications [facility], [address], [place] [id number], [phone] ondansetron (Zofran ODT 4 mg Tab-Dis) 1 Tablets By Mouth 3 times a day. Refills: 0. Medications to Continue with No Changes Other Medications multivitamin, ( Multivitamins with Vitamin B Complex, Vitamin C, Minerals and L-Methylfolate oral capsule) 1 Capsules By Mouth every day. Refills: 0. PATIENT EDUCATION INFORMATION: Instructions: Nausea and Vomiting, Adult Follow up: With: Address: When: Charli CARLSON [address] [place] [address] [phone] Business (1) In 3 days 09/06/2022 DIAGNOSIS: Nausea & vomiting Normal [facility] ED Note-Physicianon 09-03-20 ED Note-Physician Basic [...] TID, # 15 tab(s), Refills(s) 0, Pharmacy: [facility], 170, cm, 09/03/22 14:31:00 EDT, Height/Length [...] CARLSON In 3 days 09/06/2022 EDT [address] [place] [address]- Business (1) Additional Instructions: Patient Education Nausea and Vomiting, Adult Attestation Patient seen and evaluated by the physician hospital medical assistant. Attending physician was present in the emergency department and supervised care. This visit was performed by both the physician and an APC. I performed all aspects of the MDM as documented. This report was transcribed using voice recognition software. Every effort was made to ensure accuracy, however, inadvertently computerized commercial announcer mistakes may be present. Appropriate healthcare PPE [...] (09/03/22 14:49:0 (more content not included)... Normal [facility] Comment on above: Result Comment: Elec [...] added (diluted fruit juice). ? Eat bland, vjmj-sj-wubjow foods in small amounts as you are able. These foods include bananas, applesauce, rice, lean meats, toast, and crackers. ? Avoid fluids that contain a lot of sugar or caffeine, such as energy drinks, sports drinks, and soda. ? Avoid alcohol. ? Avoid spicy or fatty foods. General instructions ? Take eynn-wee-bxfhkwn and prescription medicines only as told by your health care provider. ? Drink enough fluid to keep your urine pale yellow. ? Wash your hands often using soap and water. If soap and water are not available, use hand event mgr. ? Make sure that all people in [...] and drinking to prevent dehydration. ? Take vgdf-lyp-nmguqat and prescription medicines only as told by [...] Reviewed: 04/18/2019 Elsevier Patient Education ? 2019 [employer]. Normal [facility] ED Patient Summaryon 022 ED Patient Summary [address] [address] Patient Discharge Instructions Person Information Name: MEENA LUCERO Age: 26 Years Arrival Date: 09/03/2022 14:27:10 Discharge Diagnosis: Nausea & vomiting Primary Care Physician: Charli LOPEZ Provider Information Primary Provider: Evan Moyer DO Advanced Project Mgr:Neil Meza PA-C The exam and treatment you received in the Emergency Department were for an urgent problem and are not intended as complete care. It is important that you follow up with a doctor, nurse practitioner, or physician?s hospital medical assistant for ongoing care. If your symptoms [...] Follow-up Instructions: With: Address: When: Charli CARLSON [address] [place] [phone] Business (1) In 3 days 09/06/2022 In the event that this physician does not participate in your insurance network, please consult with your insurance company to find a nearby participating provider. Patient Education Materials: Nausea and Vomiting, Adult A MESSAGE TO ALL PATIENTS REGARDING OPIOIDS PRESCRIPTION OPIOIDS: WHAT YOU NEED TO KNOW Prescription opioids can be used to help relieve blthrxpq-ac-mgerwg pain and are often prescribed following a [...] be struggling with addiction, tell your health personal care home administrator and ask for guidance or call [facility]?S National Helpline at 0-100-467-WODS. h Source: Dep (more content not included)... Normal [facility] U BetaHcg Qualon 09-03-2022 HCG.beta subunit (U) [Moles/Vol] Negative Normal [facility] Comment on above: Performed By: #### 2 [id number], [id number], [id number] ####[facility] [address] [place] [address] UA With Cult Reflexon 2021 Bacteria LM Ql (Urine sed) 2+ /HPF Abnormal Trace [facility] Comment on above: Performed By: #### 2 [id number], [id number], [id number] ####[facility] [address] [place] [address] Bilirubin Ql (U) Negative Normal Negative [facility] Comment on above: Performed By: #### 2 [id number], [id number], 1281547 ####[facility] [address] [place] [address] Clarity (U) CLEAR Normal Clear [facility] Comment on above: Performed By: #### 2 2253985, [id number], 5848918 ####[facility] [address] [place] [address] Color (U) YELLOW Normal Yellow [facility] Comment on above: Performed By: #### 2 [id number], 66153462, 7069407 ####[facility] [address] [place] [address] Epithelial cells.squamous LM.HPF (Urine sed) [#/Area] 5-8 Normal 0-2 [facility] Comment on above: Performed By: #### 2 3868227, 15388635, 3955054 ####[facility] [address] [place] [address] Glucose Test strip (U) [Mass/Vol] Negative Normal Negative [facility] Comment on above: Performed By: #### 2 0616284, 16541415, 9454871 ####[facility] [address] [place] [address] Hemoglobin Ql (U) Negative Normal Negative [facility] Comment on above: Performed By: #### 2 3207578, 22946192, 4178685 ####[facility] [address] [place] [address] Ketones (U) [Mass/Vol] Negative Normal Negative [facility] Comment on above: Performed By: #### 2 1622657, 53649084, 3846589 ####[facility] [address] [place] [address] [place].plasma/Lit hium.RBC (Bld) [Mass ratio] 0-3 Normal 0-3 [facility] Comment on above: Performed By: #### 2 2776031, 33240605, 9561891 ####[facility] [address] [place] [address] Mucus Ql (Urine sed) 1+ Normal [facility] Comment on above: Performed By: #### 2 5978311, 22379507, 7821720 ####[facility] [address] [place] [address] Nitrite Ql (U) Negative Normal Negative [facility] Comment on above: Performed By: #### 2 4558982, 88316986, 5895419 ####[facility] [address] [place] [address] pH (U) 5.5 [pH] Invalid Interpretation Code 5.0-9.0 [facility] Comment on above: Performed By: #### 2 0593883, 09065816, 1323689 ####[facility] [address] [place] [address] Protein (U) [Mass/Vol] Negative Normal Negative [facility] Comment on above: Performed By: #### 2 1107312, 65561512, 9099279 ####[facility] [address] [place] [address] Specific gravity (U) [Rel density] >=1.030 Invalid Interpretation Code 1.005-1.030 [facility] Comment on above: Performed By: #### 2 0854055, [id number], 5893683 ####[place] 2479957 Type of Urine collection method Clean Catch Normal [facility] Comment on above: Performed By: #### 2 2443044, 23880777, 8870529 ####[place] 2479957 Urobilinogen Qn (U) 0.2 {Elver'U}/dL Normal 0.0-1.0 [facility] Comment on above: Performed By: #### 2 2303709, 56620260, 6393757 ####[place] 2479957 WBC Auto Ql (U) Negative Normal Negative [facility] Comment on above: Performed By: #### 2 5553263, 87688446, 6620148 ####[place] 2479957 WBC LM.HPF (Urine sed) [#/Area] 0-5 Normal 0-5 [facility] Comment on above: Performed By: #### 2 8946212, 04195460, 1533549 ####[address] [address] XR WRIST LEFT (MIN 3 VIEWS)o n 06-19-2022 Normal left wrist. [facility] EXAM: XR WRIST LEFT (MIN 3 VIEWS) HISTORY: M25.532. 26-year-old female, left wrist pain. COMPARISON: None. TECHNIQUE: Three views left wrist. FINDINGS: The radiocarpal joint and wrist are normal. Normal scapholunate distance. No erosion or chondrocalcinosis. [facility] Mauro Anton Jr., MD - 06/19/2022 EXAM: XR WRIST LEFT (MIN 3 VIEWS) HISTORY: M25.532. 26-year-old female, left wrist pain. COMPARISON: None. TECHNIQUE: Three views left wrist. FINDINGS: The radiocarpal joint and wrist are normal. Normal scapholunate distance. No erosion or chondrocalcinosis. IMPRESSION: Normal left wrist. 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 pain has been constant for about 1 week now. History of Present Illness Pt [facility]. Previous pt of [facility] in [place]. Concerned today about left wrist pain which started about 1 yr ago; pain has worsened over the last week. 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 Carries everything in her left hand. Right handed. Pain location: medial martinez hand, radiating to wrist Pain description: shooting Pain rated: 2/10, 7/10 with certain movements. 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 Negative Tinels and DeQuervians. + Phalens. Amf Mechanic strength equal. Neurologic: Cranial nerves II-XII grossly intact. Skin: [place], warm and dry. No rashes, ulcerations, or [...] day(s), # 30 tab(s), Refills(s) 1, Pharmacy: [facility], 170, cm, 06/01/22 12:55:00 EDT, Height/Length Dosing, 91.3, kg, 06/01/22 12:55:00 EDT, Weight Dosing [facility] External Ambulatory Referral 2. BMI 31.0-31.9,adult (Z68.31: Body mass index [BMI] 31.0-31.9, adult) The standard range for ages 18 and older is >=18.5 and < 25 kg/m2. Your BMI today was above this range, this falls in the obese category and there are medical benefits to weight loss. We can offer counselling, referral, and/or medical support in addressing this problem. Visit [employer] for useful information to help make better [...] unspecified fo (more content not included)... Normal [facility] Comment on above: Result Comment: Elec [...] height. This can be done either in Filipino ([place].S[place] or metric measurements. Note that charts are available to help you find your BMI quickly and easily without having to do these calculations yourself. To calculate your BMI in Filipino (U.S[place] measurements, your health care provider will: [...] problems. ? BMI can be measured using Filipino measurements or metric measurements. ? To interpret [...] 07/20/2005 Document Revised: 10/21/2018 Document Reviewed: 09/21/2018 [employer] Patient Education ? 2020 [employer]. Orthopedics Carpal Tunnel Syndrome Carpal tunnel syndrome [...] Having a job, such as being a recreation instructor or a parimutuel cashier, that requires you to repeatedly move [...] and midd (more content not included)... Normal [facility] Physician Referralon 022 Physician Referral [id number] #1.00CD:127 Normal [facility] Vital Signs Date Time Vital Sign Value Performing Clinician Ayad lozoya 11-20-2024 09:42-0500 Body mass index (BMI) [Ratio] 36.61 kg/m2 Genevieve MARIA Work Phone: [facility] 11-20-2024 09:42-0500 Body weight 99.79 kg Genevieve MARIA Work Phone: [facility] 11-20-2024 09:42-0500 Diastolic blood pressure 74 mm[Hg] Genevieve MARIA Work Phone: [facility] 11-20-2024 09:42-0500 Systolic blood pressure 120 mm[Hg] Genevieve MARIA Work Phone: [facility] 10-17-2024 13:10-0500 Body mass index (BMI) [Ratio] 35.35 kg/m2 Gary Enriqueta DO Work Phone: [facility] 10-17-2024 13:10-0500 Body weight 96.34 kg Gary Enriqueta DO Work Phone: [facility] 10-17-2024 13:10-0500 Diastolic blood pressure 70 mm[Hg] Gary Enriqueta DO Work Phone: [facility] 10-17-2024 13:10-0500 Systolic blood pressure 120 mm[Hg] Gary Enriqueta DO Work Phone: [facility] 09-18-2024 11:15-0400 Body mass index (BMI) [Ratio] 35.2 kg/m2 Gary Enriqueta DO Work Phone: [facility] 09-18-2024 11:15-0400 Body weight 95.94 kg Gary Enriqueta DO Work Phone: [facility] 09-18-2024 11:15-0400 Diastolic blood pressure 74 mm[Hg] Gary Enriqueta DO Work Phone: [facility] 09-18-2024 11:15-0400 Systolic blood pressure 122 mm[Hg] Gary Enriqueta DO Work Phone: [facility] 08-18-2024 10:28-0400 Body mass index (BMI) [Ratio] 34.95 kg/m2 [facility] Nurse [facility] 08-18-2024 10:28-0400 Body weight 95.25 kg [facility] Nurse [facility] 01-10-2023 14:29-0500 Body height 165.1 cm Fei Canales MD Work Phone: [employer] [facility] 01-10-2023 14:29-0500 Body mass index (BMI) [Ratio] 34.35 kg/m2 Fei Canales MD Work Phone: [employer] [facility] 01-10-2023 14:29-0500 Body temperature 98.49 [degF] Fei Canales MD Work Phone: [employer] 01-10-2023 14:29-0500 Body weight 93.62 kg Fei Canales MD Work Phone: [employer] [facility] 01-10-2023 14:29-0500 Diastolic blood pressure 79 mm[Hg] Fei Canales MD Work Phone: [employer] 01-10-2023 14:29-0500 Heart rate 75 /min Fei Canales MD Work Phone: [employer] 01-10-2023 14:29-0500 Respiratory rate 16 /min Fei Canales MD Work Phone: [employer] 01-10-2023 14:29-0500 SaO2% (BldA) [Mass fraction] 99 % Fei Canales MD Work Phone: [employer] 01-10-2023 14:29-0500 Systolic blood pressure 140 mm[Hg] Fei Canales MD Work Phone: [facility] 12-08-2022 11:51-0500 Blood Pressure Location Keyon BROWN [facility] 12-08-2022 11:51-0500 Body temperature 98.24 [degF] Keyon BROWN [facility] 12-08-2022 11:51-0500 Diastolic blood pressure 78 mm[Hg] Keyon BROWN [facility] 12-08-2022 11:51-0500 Heart rate 84 /min Keyon BROWN [facility] 12-08-2022 11:51-0500 Respiratory rate 16 /min Keyon BROWN [facility] 12-08-2022 11:51-0500 SaO2% (BldA) [Mass fraction] 100 % Keyon BROWN [facility] 12-08-2022 11:51-0500 Systolic blood pressure 114 mm[Hg] Keyon BROWN [facility] 12-04-2022 16:32-0500 Body mass index (BMI) [Ratio] 33.66 kg/m2 Jason Tracy MD Work Phone: [facility] 12-04-2022 16:32-0500 Body temperature 98.49 [degF] Jason Tracy MD Work Phone: [facility] 12-04-2022 16:32-0500 Body weight 91.76 kg Jason Tracy MD Work Phone: [facility] 12-04-2022 16:32-0500 Diastolic blood pressure 75 mm[Hg] Jason Tracy MD Work Phone: [facility] 12-04-2022 16:32-0500 Heart rate 91 /min Jason Tracy MD Work Phone: [facility] 12-04-2022 16:32-0500 Respiratory rate 16 /min Jason Tracy MD Work Phone: [facility] [employer] 12-04-2022 16:32-0500 SaO2% (BldA) [Mass fraction] 99 % Jason Tracy MD Work Phone: [facility] 12-04-2022 16:32-0500 Systolic blood pressure 123 mm[Hg] Jason Tracy MD Work Phone: [facility] 06-01-2022 12:50-0400 Blood Pressure Location Meena Carl [facility] 06-01-2022 12:50-0400 Body temperature 96.98 [degF] Meena Aguilarell [facility] 06-01-2022 12:50-0400 Diastolic blood pressure 60 mm[Hg] Meena Carl [facility] 06-01-2022 12:50-0400 Heart rate 88 /min Meena Carl [facility] 06-01-2022 12:50-0400 SaO2% (BldA) [Mass fraction] 97 % Meena Carl [facility] 06-01-2022 12:50-0400 Systolic blood pressure 122 mm[Hg] Meena Carl [facility] 09-14-2021 10:15-0400 Body mass index (BMI) [Ratio] 31.62 kg/m2 Keyon Wilkinson MD Work Phone: [employer] Work Phone: 09-14-2021 10:15-0400 Body weight 86.18 kg Keyon Wilkinson MD Work Phone: [employer] Work Phone: 09-14-2021 10:14-0400 Body height 165.1 cm Keyon Wilkinson MD Work Phone: [employer] Work Phone: 09-14-2021 10:14-0400 Body temperature 98.2 [degF] Keyon Wilkinson MD Work Phone: [employer] Work Phone: 09-14-2021 10:14-0400 Diastolic blood pressure 93 mm[Hg] Keyon Wilkinson MD Work Phone: [employer] Work Phone: 09-14-2021 10:14-0400 Heart rate 91 /min Keyon Wilkinson MD Work Phone: [employer] Work Phone: 09-14-2021 10:14-0400 Respiratory rate 20 /min Keyon Wilkinson MD Work Phone: [employer] Work Phone: 09-14-2021 10:14-0400 SaO2% (BldA) [Mass fraction] 96 % Keyon Wilkinson MD Work Phone: [employer] Work Phone: 09-14-2021 10:14-0400 Systolic blood pressure 131 mm[Hg] Keyon Wilkinson MD Work Phone: [employer] Work Phone: Encounters Encounter Date Encounter Type Care Provider Facility Start: 12-13-2024 End: 12-13-2024 ambulatory [facility] Start: 12-13-2024 End: 12-13-2024 Subsequent hospital visit by physician John Partida DO Work Phone: [facility] Comment on above: Arrived Start: 12-06-2024 End: 12-06-2024 ambulatory [facility] Start: 12-06-2024 End: 12-06-2024 Subsequent hospital visit by physician John Partida DO Work Phone: [facility] Comment on above: Arrived Start: 11-20-2024 End: 11-20-2024 Bamboo flowsheet Genevieve MARIA Work Phone: [facility] Start: 11-20-2024 End: 11-20-2024 Bamboo flowsheet Genevieve MARIA Work Phone: [facility] Start: 11-20-2024 End: 11-20-2024 ambulatory GENEVIEVE PINTO Not Available Start: 11-20-2024 End: 11-20-2024 Office outpatient visit 15 minutes Genevieve MARIA Work Phone: [facility] Comment on above: Second trimester pre [...] encounter status Gary Enriqueta DO Work Phone: [facility] Start: 10-12-2024 End: 10-12-2024 ambulatory [facility] Start: 10-12-2024 End: 10-12-2024 Subsequent hospital visit by physician John Partida DO Work Phone: [facility] Comment on above: Arrived Start: 10-10-2024 End: 10-10-2024 [facility] Start: 10-10-2024 End: 10-10-2024 Subsequent hospital visit by physician John Partida DO Work Phone: [facility] Comment on above: Arrived Start: 10-04-2024 End: 10-04-2024 Subsequent hospital visit by physician John Partida DO Work Phone: [facility] Start: 10-04-2024 [facility] Start: 09-18-2024 End: 09-18-2024 Office outpatient [...] Department Unsolicited Start: 08-07-2024 End: 08-07-2024 ambulatory [facility] Start: 08-07-2024 End: 08-07-2024 Subsequent hospital visit by physician Óscar Villagran DNP Work Phone: [facility] Start: 08-02-2024 End: 08-02-2024 Clinisync Result Encounter Gary Enriqueta DO Work Phone: [facility] Unsolicited Start: 08-02-2024 End: 08-02-2024 Clinisync Result Encounter Gary Enriqueta DO Work Phone: [facility] Unsolicited Start: 08-02-2024 End: 08-02-2024 ambulatory [facility] Start: 07-31-2024 End: 07-31-2024 Clinisync Result Encounter Gary Enriqueta DO Work Phone: [facility] Unsolicited Start: 07-31-2024 End: 07-31-2024 Clinisync Result Encounter Gary Enriqueta DO Work Phone: [facility] Unsolicited Start: 07-31-2024 End: 07-31-2024 ambulatory [facility] Start: 07-31-2024 End: 07-31-2024 Subsequent hospital visit by physician Óscar Villagran DNP Work Phone: [facility] Start: 07-29-2024 End: 07-29-2024 Clinisync Result Encounter Gary Enriqueta DO Work Phone: [facility] Unsolicited Start: 07-29-2024 End: 07-29-2024 Clinisync Result Encounter Gary Enriqueta DO Work Phone: [facility] Unsolicited Start: 07-29-2024 End: 07-29-2024 ambulatory [facility] Start: 07-27-2024 End: 07-27-2024 Clinisync Result Encounter Gary Enriqueta DO Work Phone: [facility] Unsolicited Start: 07-27-2024 End: 07-27-2024 Clinisync Result Encounter Gary Enriqueta DO Work Phone: [facility] Unsolicited Start: 07-27-2024 End: 07-27-2024 ambulatory [facility] Start: 07-27-2024 End: 07-27-2024 Subsequent hospital visit by physician John Partida DO Work Phone: [facility] Comment on above: Arrived Start: 07-25-2024 End: 07-25-2024 [facility] Start: 07-21-2024 End: 07-21-2024 [facility] Start: 07-19-2024 End: 07-19-2024 ambulatory [facility] Start: 07-13-2024 End: 07-13-2024 Subsequent hospital visit by physician John Partida DO Work Phone: [facility] Comment on above: Arrived Start: 07-13-2024 End: 07-13-2024 ambulatory [facility] Start: 07-06-2024 End: 07-06-2024 Subsequent hospital visit by physician John Partida DO Work Phone: [facility] Start: 06-29-2024 End: 06-29-2024 ambulatory [facility] Start: 06-29-2024 End: 06-29-2024 Subsequent hospital visit by physician John Partida DO Work Phone: [facility] Physical Therapy Comment on above: Arrived Start: 06-26-2024 End: 06-26-2024 ambulatory [facility] Start: 06-22-2024 End: 06-22-2024 ambulatory [facility] Start: 06-20-2024 End: 06-20-2024 ambulatory [facility] Start: 06-16-2024 End: 06-16-2024 ambulatory [facility] Start: 06-14-2024 End: 06-14-2024 ambulatory [facility] Start: 06-08-2024 End: 06-08-2024 ambulatory [facility] Start: 06-08-2024 End: 06-08-2024 ambulatory [facility] Start: 05-22-2024 End: 05-24-2024 ambulatory [facility] Start: 05-22-2024 End: 05-24-2024 Subsequent hospital visit by physician Óscar Villagran DNP Work Phone: [facility] Start: 03-06-2024 End: 03-06-2024 ambulatory GARY ENRIQUETA Not Available Start: 03-04-2024 End: 03-04-2024 ambulatory [facility] Start: 03-04-2024 Emergency department patient visit [facility] Start: 12-08-2023 End: 12-08-2023 ambulatory GARY ENRIQUETA Not Available Start: 04-09-[address] NONE LISTED REQUEST Facility: Start: 01-29-2023 End: 01-31-2023 Subsequent hospital visit by physician [facility] Comment on above: Other closed fractur e of proximal end of right fibula with routine healing, subsequent encounter Start: 01-29-2023 End: 01-31-2023 Subsequent hospital visit by physician Keyon Brown MD Work Phone: [facility] Start: 01-10-2023 End: 01-10-2023 Emergency department patient visit Fei Canales MD Work Phone: [facility] ED Comment on above: Injury of right ankl e, initial encounter (Primary Dx) Start: 12-08-2022 End: 12-09-2022 ambulatory Keyon BROWN Facility:[facility] Start: 12-08-2022 End: 12-08-2022 Patient encounter procedure Keyon BROWN [facility] [place] Start: 12-04-2022 End: 12-04-2022 Emergency department patient visit Jason Tracy MD Work Phone: [facility] ED Comment on above: Viral illness (Prima ry Dx) Start: 09-03-2022 End: 09-03-2022 Emergency department patient visit Evan Moyer Facility:[facility] Start: 06-19-2022 End: 06-21-2022 Subsequent hospital visit by physician [facility] Additional [facility]iology Comment on above: Left wrist pain Start: 06-01-2022 End: 06-02-2022 ambulatory SUPERVISOR FLESHING Meena Carl Facility:[facility] Start: 06-01-2022 End: 06-01-2022 Patient encounter procedure Meena Carl [facility] Start: 05-28-2022 ambulatory [employer]PER[employer] Meena Carl Faci lity:[facility] Start: 09-14-2021 End: 09-14-2021 Emergency department patient visit Keyon Wilkinson MD Work Phone: [facility] ED Comment on above: Subacute bronchitis (Primary Dx) Procedures Date Procedure Procedure Detail Performing Clinician Start: 11-20-2024 Urnls dip stick/tabl et rgnt non-auto w/o micrscp Genevieve MARIA Work Phone: Start: 10-17-2024 Urnls dip stick/tabl et rgnt non-auto w/o micrscp Gary Barcenaso DO Work Phone: Start: 10-17-2024 RECURRENT VAGINITIS (HTRX) Gary Barcenaso DO Work Phone: Start: 10-17-2024 IGP,APTIMA HPV,AGE GDLN Garymariya Barcenaso DO Work Phone: Start: 09-18-2024 Urnls dip stick/tabl et rgnt non-auto w/o micrscp Gary Barcenaso DO Work Phone: Start: 09-11-2024 BOX TEST Gary barone DO Work Phone: Start: 08-18-2024 End: 08-18-2024 Urnls dip stick/tablet rgnt non-auto w/o micrscp Gary Barcenaso DO Work Phone: Start: 08-07-2024 ALL HCG, QUANTITATIVE C juaniy Enriqueta DO Work Phone: Start: 08-07-2024 Gonadotropin chorion ic quantitative Gary Robison MD Work Phone: Start: 08-02-2024 ALL HCG, QUANTITATIVE C marco Barcenaso DO Work Phone: Start: 07-31-2024 ALL HCG, QUANTITATIVE C orey Enriqueta DO Work Phone: Start: 07-31-2024 Gonadotropin chorion ic quantitative Gary Robison MD Work Phone: Start: 07-29-2024 ALL HCG, QUANTITATIVE C orey Enriqueta DO Work Phone: Start: 07-27-2024 ALL HCG SERUM,QUALITATIVE Gary Barcenaso DO Work Phone: Start: 05-26-2023 Cytp cerv/vag [...] 60 yrs+ (1 - 1-dose 75+ series) [facility] Start: 2054 Respiratory Syncytia l Virus (RSV) or age 60 yrs+ (1 - 1-dose 60+ series) Respiratory Syncytial Virus (RSV) or age 60 yrs+ (1 - 1-dose 60+ series) [facility] Start: 03-14-2025 Depression Screen Depression Screen [facility] Start: 12-22-2024 End: 12-22-2024 Patient encounter procedure 12/22/2024 8:00 AM EST Appointment [facility] [address] [place] [address] John Partida, DO [address] [place] [address] Austen Puga PTA *[employer] 5 of 30 Sacral Pain, [facility] Comment on above: *[employer] 5 of 30 Sacral Pain, Start: 12-20-2024 End: 12-20-2024 Patient encounter procedure 12/20/2024 9:00 AM EST Appointment [facility] [address] [place] [address] John Partida, DO [address] [place] [address] Clara Castrejon, PT *[employer] 4 of 30 Sacral Pain, [facility] Comment on above: *[employer] 4 of 30 Sacral Pain, Start: 12-19-2024 End: 12-19-2024 Patient encounter procedure 12/19/2024 9:50 AM EST Routine [facility] [address] [facility] [place] [address] Gary Robison DO [address] [facility] [place] [address] [facility] Start: 12-15-2024 End: 12-15-2024 Patient encounter procedure 12/15/2024 8:15 AM EST Appointment [facility] [address] [place] [address] John Partida, DO [address] [place] [address] Clara Castrejon, PT *[employer] 3 of 30 Sacral Pain, [facility] Comment on above: *[employer] 3 of 30 Sacral Pain, Start: 12-13-2024 End: 12-13-2024 Patient encounter procedure 12/13/2024 9:45 AM EST Appointment [facility] [address] [place] [address] John Partida, DO [address] [place] [address] Trinity Browning *[employer] 2 of 30 Sacral Pain, [facility] Comment on above: *[employer] 2 of 30 Sacral Pain, Start: 2024 Screening for malign ant neoplasm of cervix [facility] Start: 11-20-2024 End: 11-20-2025 CBC panel - Blood by Automated count CBC Lab Routine Diabetes mellitus screening Expected: 11/20/2024 (Approximate), Expires: 11/20/2025 [facility] Work Phone: Comment on above: Expected: 11/20/2024 (Approximate), Expires: 11/20/2025 Start: 11-20-2024 End: 11-20-2025 Measurement of glucose 1 hour after glucose challenge for glucose tolerance test Glucose tolerance, 1 hour Lab Routine Diabetes mellitus screening Expected: 11/20/2024 (Approximate), Expires: 11/20/2025 [facility] Comment on above: Expected: 11/20/2024 (Approximate), Expires: 11/20/2025 Start: 11-20-2024 End: 11-20-2024 Patient encounter procedure 11/20/2024 9:20 AM EST Routine [facility] [address] [facility] [place] [id number] Genevieve Pinto PA [address] [facility] [address] [place], [place] [id number] [facility] Start: 11-20-2024 End: 11-20-2024 Professional / ancillary services management 11/20/2024 8:00 AM EST Ancillary Procedure [facility] [address] [place] [address] [facility] Start: 10-17-2024 End: 01-17-2025 Alpha fetoprotein, maternal Alpha fetoprotein, maternal Lab Routine 15 weeks gestation of Expected: 10/17/2024 (Approximate), Expires: 01/17/2025 [facility] Work Phone: Comment on above: Expected: 10/17/2024 (Approximate), Expires: 01/17/2025 Start: 10-17-2024 End: 10-17-2025 US for US OB ANATOMY SINGLE W US OB CERVICAL LENGTH Imaging Routine Screening, , for anatomic survey 15 weeks gestation of Expected: 10/17/2024 (Approximate), Expires: 10/17/2025 [facility] Comment on above: Expected: 10/17/2024 (Approximate), Expires: 10/17/2025 Start: 10-17-2024 End: 10-17-2024 Patient encounter procedure 10/17/2024 10:50 AM EST Routine [facility] [address] [facility] [place] [address] Gary Robison DO [address] [facility] [place] [address] [facility] Start: 10-17-2024 End: 10-17-2024 Patient encounter procedure 10/17/2024 8:15 AM EST Appointment [facility] [address] [place] [address] John Partida, DO [address] [place] [address] Trinity Browning 16 of 30 Sacral Pain, [facility] Comment on above: 16 of 30 Sacral Pain , Start: 10-12-2024 End: 10-12-2024 Patient encounter procedure 10/12/2024 8:00 AM EST Appointment [facility] [address] [place] [address] John Partida, DO [address] [place] [address] Clara Castrejon, PT 15 of 30 Sacral Pain, [facility] Comment on above: 15 of 30 Sacral Pain , Start: 10-10-2024 End: 10-10-2024 Patient encounter procedure 10/10/2024 9:30 AM EST Appointment [facility] [address] [place] [address] John Partida, DO [address] [place] [address] Clara Castrejon, PT 14 of 30 Sacral Pain, [facility] Comment on above: 14 of 30 Sacral Pain , Start: 09-18-2024 End: 09-18-2024 Patient encounter procedure 09/18/2024 10:40 AM EDT Routine [facility] [address] [facility] [place] [id number] Gary Robison DO [address] [facility] [place] [address] [facility] Start: 08-18-2024 End: 08-18-2025 ABO/Rh ABO/Rh Lab Routine Missed menses , unspecified gestational age Expected: 08/18/2024 (Approximate), Expires: 08/18/2025 [facility] Comment on above: Expected: 08/18/2024 (Approximate), Expires: 08/18/2025 Start: 08-18-2024 End: 08-18-2025 Blood type and Indirect antibody screen panel - Blood Type and screen Lab Routine Missed menses , unspecified gestational age Expected: 08/18/2024 (Approximate), Expires: 08/18/2025 [facility] Work Phone: Comment on above: Expected: 08/18/2024 (Approximate), Expires: 08/18/2025 Start: 08-18-2024 End: 08-18-2025 Drugs of abuse panel - Urine by Screen method Rapid drug screen, urine Lab Routine , unspecified gestational age Encounter for supervision of normal first in first trimester Expected: 08/18/2024 (Approximate), Expires: 08/18/2025 [facility] Comment on above: Expected: 08/18/2024 (Approximate), Expires: 08/18/2025 Start: 08-18-2024 End: 08-18-2025 US Pelvis transvaginal US OB transvaginal Imaging Routine Missed menses Expected: 08/18/2024 (Approximate), Expires: 08/18/2025 [facility] Comment on above: Expected: 08/18/2024 (Approximate), Expires: 08/18/2025 Start: 08-18-2024 End: 08-18-2024 ambulatory 08/18/2024 9:30 AM EDT Initial [facility] [address] [facility] [place] [id number] [facility] Start: 08-18-2024 End: 08-18-2024 Professional / ancillary services management 08/18/2024 9:00 AM EDT Ancillary Procedure [facility] [address] [facility] [place] [address] [facility] Start: 07-23-2024 COVID-19 Vaccine ( season) COVID-19 Vaccine () [facility] Start: 07-23-2024 Influenza vaccination Influenza Vacc ine (#1) [facility] Start: 07-19-2024 End: 07-19-2024 Patient encounter procedure 07/19/2024 8:00 AM EDT Appointment [facility] [address] [place] [id number] John Partida, DO [address] [place] [address] Asia Mix, PT [address] [place] [address] [facility] Start: 07-13-2024 End: 07-13-2024 Patient encounter procedure [facility] Start: 07-06-2024 End: 07-06-2024 Patient encounter procedure 07/06/2024 9:00 AM EDT Appointment [facility] [address] [place] [address] John Partida, [address] [place] [address] Asia Mix, PT [address] [place] [address] [facility] Start: 06-22-2024 Influenza vaccination Flu vaccine (# 1) [facility] Start: 07-23-2023 COVID-19 Vaccine ( season) COVID-19 Vaccine ( season) [facility] Start: 07-23-2022 Influenza vaccination Flu vaccine (# 1) [facility] Start: 06-22-2022 Influenza vaccination Flu vaccine (# 1) [facility] Start: 07-23-2021 Influenza vaccination Flu vaccine (# 1) [facility] [employer] Phone: Start: 08-02-2017 DTaP/Tdap/Td vaccine (2 - Td or Tdap) DTaP/Tdap/Td vaccine (2 - Td or Tdap) [facility] Start: 2015 Screening for malign ant neoplasm of cervix Pap smear [facility] Start: 2013 DTaP/Tdap/Td vaccine (1 - Tdap) DTaP/Tdap/Td vaccine (1 - Tdap) [facility] [employer] Phone: Start: 2013 Hepatitis B vaccine (1 of 3 - 19+ 3-dose series) Hepatitis B vaccine (1 of 3 - 19+ 3-dose series) [facility] Start: 2012 Hepatitis C screening Hepatitis C sc reen [facility] Start: 2009 HIV screening HIV screen [facility] Start: 2006 COVID-19 Vaccine (1) COVID-19 Vaccin e (1) [facility] [employer] Phone: Start: 2006 Depression Screen Depression Screen [facility] Start: 2005 HPV vaccine (1 - 2-d ose series) HPV vaccine (1 - 2-dose series) [facility] [employer] Phone: Start: 1998 Varicella vaccine (2 of 2 - 2-dose childhood series) Varicella vaccine (2 of 2 - 2-dose childhood series) [facility] Start: 1995 Varicella vaccine (1 of 2 - 2-dose childhood series) Varicella vaccine (1 of 2 - 2-dose childhood series) [employer] Phone: Start: 05-30-1995 COVID-19 Vaccine (#1) COVID-19 Vacci ne (#1) [facility] Start: 1994 Hepatitis B vaccine (1 of 3 - 3-dose series) Hepatitis B vaccine (1 of 3 - 3-dose series) [facility] Start: 1994 Hepatitis C screening Hepatitis C sc [facility] [employer] Phone: Bacteria identified in Urine by Culture Urine culture Microbiology Routine Missed menses Ordered: 08/18/2024 [facility] Comment on above: Ordered: 08/18/2024 CBC W Auto Different ial panel - Blood CBC and differential Lab Routine Missed menses , unspecified gestational age Ordered: 08/18/2024 [facility] Comment on above: Ordered: 08/18/2024 CHLAMYDIA TRACHOMATI S (GENITO/STI) CHLAMYDIA TRACHOMATIS (GENITO/STI) Lab Routine Vaginal discharge STD exposure Ordered: 10/17/2024 [facility] Comment on above: Ordered: 10/17/2024 Cytology Cervical or vaginal smear or scraping study Pap Smear Pathology and Cytology Routine Encounter for gynecological examination without abnormal finding Ordered: 10/17/2024 [facility] Comment on above: Ordered: 10/17/2024 Hemoglobin A1c/Hemoglobin.total in Blood Hemoglobin A1c Lab Routine Missed menses , unspecified gestational age Ordered: 08/18/2024 [facility] Comment on above: Ordered: 08/18/2024 Hepatitis B virus surface Ag [Presence] in Serum or Plasma by Immunoassay Hepatitis B surface antigen Lab Routine Missed menses , unspecified gestational age Ordered: 08/18/2024 [facility] Comment on above: Ordered: 08/18/2024 Hepatitis C virus Ab [Presence] in Serum or Plasma by Immunoassay Hepatitis C antibody Lab Routine Missed menses , unspecified gestational age Ordered: 08/18/2024 [facility] Comment on above: Ordered: 08/18/2024 HIV-1/HIV-2 antigen/antibody combination immunoassay HIV-1 and HIV-2 antibodies Lab Routine Missed menses , unspecified gestational age Ordered: 08/18/2024 [facility] Comment on above: Ordered: 08/18/2024 Neisseria gonorrhoea e DNA [Presence] in Unspecified specimen by WADE with probe detection Neisseria gonorrhea DNA probe, direct Lab Routine Vaginal discharge STD exposure Ordered: 10/17/2024 [facility] Comment on above: Ordered: 10/17/2024 Reagin Ab [Presence] in Serum by RPR RPR Lab Routine Missed menses , unspecified gestational age Ordered: 08/18/2024 [facility] Comment on above: Ordered: 08/18/2024 Rubella antibody, IgG Rubella an tibody, IgG Lab Routine Missed menses , unspecified gestational age Ordered: 08/18/2024 [facility] Comment on above: Ordered: 08/18/2024 SURESWAB(R) ADVANCED VAGINITIS PLUS, TMA SURESWAB(R) ADVANCED VAGINITIS PLUS, TMA Pathology and Cytology Routine Vaginal discharge STD exposure Ordered: 10/17/2024 [facility] Comment on above: Ordered: 10/17/2024 Immunizations Immunization Date Immunization Notes Care Provider Jaci masterson 02-16-2008 Hep A, unspecified formulation Meena Carl [facility] 08-02-2007 Hep A, unspecified formulation Meena Siddhartha [facility] 08-02-2007 meningococcal ACWY vaccine, unspecified formulation Meena Siddhartha [facility] 08-02-2007 tetanus toxoid, reduced diphtheria toxoid, and acellular pertussis vaccine, adsorbed Meenazachariah Aguilarell [facility] 08-19-2000 DTaP, unspecified formulation Meena Carl [facility] 08-19-2000 measles, mumps and rubella virus vaccine Meenazachariah Carl [facility] 10-10-1997 varicella virus vaccine Meena Carl [facility] 03-09-1996 DTaP, unspecified formulation Meena Carl [facility] 03-09-1996 Hib, unspecified formulation Meena Carl [facility] 03-09-1996 measles, mumps and rubella virus vaccine Meena Carl [facility] 06-11-1995 DTP-Hib Meena Carl [facility] 06-11-1995 hepatitis B vaccine, pediatric or pediatric/adolescent dosage Meena Carl [facility] 04-05-1995 DTP-Hib Meena Carl [facility] 02-01-1995 DTP-Hib Meena Carl [facility] 01-04-1995 hepatitis B vaccine, pediatric or pediatric/adolescent dosage Meena Aguilarell [facility] 1994 hepatitis B vaccine, pediatric or pediatric/adolescent dosage Meena Aguilarell [facility] NEGATED: Highlighted row has not occurred!12-08-2022 influenza virus vaccine, unspecified formulation Keyon BROWN [facility] Kim NEGATED: Highlighted row has not occurred!12-08-2022 SARS-CoV-2 mRNA (tozinameran 5y-11y) vaccine Keyon BROWN [facility] Kim Payers Date Payer Category Payer Medicaid [employer] [place] [id number] 2022-Present [address] [place] [address] [id number] 2022 Private Health Insurance [facility] MEDICAID [id number] 2014 Unknown [id number] 1.2.840.263624.1.13.239.2. 7.3.187286.315 1994 Unknown [id number] 2.16.840.1.699607.3.579.2. 727 1994 Unknown [id number] 2.16.840.1.075033.3.579.2. 727 1994 Unknown [id number] 2.16.840.1.245994.3.579.2. 727 1994 Unknown [id number] 2.16.840.1.764982.3.579.2. 727 1994 Unknown [id number] 2.16.840.1.336174.3.579.2. 593 1994 Unknown [id number] 2.16.840.1.672592.3.579.2. 1259 1994 Unknown [id number] 2.16.840.1.769264.3.579.2. 1259 1994 Unknown [id number] 2.16.840.1.374433.3.579.2. 1259 1994 Unknown [id number] 2.16.840.1.564925.3.579.2. 1259 1994 Unknown [id number] 2.16.840.1.735424.3.579.2. 1259 1994 Unknown [id number] 2.16.840.1.394543.3.579.2. 174 1994 Unknown [id number] 2.16.840.1.802381.3.579.2. 174 1994 Unknown [id number] 2.16.840.1.234512.3.579.2. 174 1994 Unknown [id number] 2.16.840.1.147333.3.579.2. 174 1994 Unknown [id number] 2.16.840.1.361576.3.579.2. 174 1994 Unknown [id number] 2.16.840.1.573658.3.579.2. 174 1994 Unknown [id number] 2.16.840.1.632426.3.579.2. 174 1994 Unknown [id number] 2.16.840.1.885736.3.579.2. 174 1994 Unknown [id number] 2.16.840.1.591380.3.579.2. 174 1994 Unknown [id number] 2.16.840.1.915142.3.579.2. 174 1994 Unknown [id number] 2.16.840.1.760832.3.579.2. 174 1994 Unknown [id number] 2.16.840.1.570627.3.579.2. 174 1994 Unknown [id number] 2.16.840.1.303914.3.579.2. 174 1994 Unknown [id number] 2.16.840.1.212744.3.579.2. 174 1994 Unknown [id number] 2.16.840.1.930803.3.579.2. 174 1994 Unknown [id number] 2.16.840.1.974756.3.579.2. 174 1994 Unknown [id number] 2.16.840.1.450884.3.579.2. 174 1994 Unknown [id number] 2.16.840.1.357481.3.579.2. 174 1994 Unknown [id number] 2.16.840.1.945923.3.579.2. 174 1994 Unknown [id number] 2.16.840.1.705947.3.579.2. 174 1994 Unknown [id number] 2.16.840.1.126424.3.579.2. 174 1994 Unknown [id number] 2.16.840.1.153882.3.579.2. 174 1994 Unknown [id number] 2.16.840.1.208475.3.579.2. 174 1994 Unknown [id number] 2.16.840.1.193279.3.579.2. 174 1994 Unknown [id number] 1995 Unknown [id number] 1995 Unknown [id number] 1995 Unknown [id number] 1995 Unknown [id number] 1960 Unknown [id number] Social History Date Type Detail Facility Start: 09-14-2021 End: 03-14-2024 Tobacco smoking status NVIS Never smoker [facility] Work Phone: Start: 09-14-2021 End: 03-14-2024 Tobacco use and exposure Never used [facility] Start: 09-14-2021 End: 08-21-2024 Alcohol intake Current non-drinker of alcohol (finding) [facility] Work Phone: Start: 1995 Sex Assigned At Not on file [facility] Work Phone: Start: 11-24-2022 End: 01-10-2023 Exposure to SARS-CoV-2 (event) Not sure [facility] Tobacco smoking status Never [facility] Start: 07-19-2023 End: 03-14-2024 Sex Assigned At Female [facility] Start: 12-04-2022 End: 01-10-2023 History SDOH Alcohol Frequency 1 [employer] Work Phone: Start: 07-19-2023 End: 03-14-2024 History of Social function [employer] How often to you hav e a drink containing alcohol? Never [employer] (I/We) worried wheaniyah er (my/our) food would run out before (I/we) got money to buy more. Never true [employer] At any time in the p ast 12 months, were you homeless or living in usp [including now]? No [employer] Start: 1995 Sex Assigned At Female [facility] Start: 07-19-2023 Gender identity Identifies as female gender (finding) [facility] Start: 07-19-2023 Sexual orientation Heterosexual (finding) [facility] Start: 07-16-2024 [facility] Start: 09-18-2024 Alcoholic beverage intake Lifetime non-drinker (finding) [facility] Functional Status Date Assessment Result Facility 12-08-2022 Functional Status N/A [facility] Kim 06-01-2022 Functional Status N/A [facility] Clinical Notes 06-01-2022 to 12-13-2024 Austen Puga, HVAC DESIGNER - 12/13/2024 9:45 AM Clara Wahl, PT - 12/06/2024 9:45 AM Clara Wahl, PT - 12/06/2024 9:45 AM Oskar Pinto PA - 11/20/2024 9:20 AM Sera Instructions Note Date & Type Note Facility 12-13-2024 History of Present illness Narrative Images from the original note were not included. [facility] Daily Note Date: 12/13/2024 Patient Name: Meena Lucero : 1995 (29 y.o.) Referring Provider (secondary): Dr. Partida Diagnosis: R buttock pain, sacral pain Treatment Diagnosis: back pain, SI pain Onset Date: 09/28/24 (Referral) PT Insurance Information: [employer] Total # of Visits Approved: 16 Per Physician Order Total # of Visits to Date: 4 Plan of Care/Certification Expiration Date: 01/19/25 Pre-Treatment Pain: 8/10 Assessment Assessment: Pt reports pain 8/10 R buttock and low back, radiates down R posterior leg. She reports that her baby was breech, but she can feel him moving and that has created more pain. Completed therex and manual therapy per flowsheet. Mild relief noted with gentle stretching and manual therapy. Plan Continue with current plan of care Exercises/Modalities/Manual: See DocFlow Sheet Education: HEP review Goals (Total # of Visits to Date: 4) Short Term Goals Time Frame for Short Term Goals: 8 Short Term Goal 1: Patient to be educated on and independent with HEP safe ex during pregnacy-Met Short Term Goal 2: Patient to be educated on and use SI belt to decrease pain during -Met Short Term Goal 3: Increase strength R hip abd 4+/5 for improved pelvic stability Retail Area Manager Goals Time Frame for Retail Area Manager Goals : 16 Retail Area Manager Goal 1: Improve functional mobility with Oswestry score <15/50 (from ) Retail Area Manager Goal 2: Decrease R SI pain 4/10 at worst x3 days Treatment Tolerance: Treatment Tolerance: Tolerated treatment well. Post Treatment Pain: 6/10 Time In: 0945 Time Out: 1018 Timed Code Treatment Minutes: 33 Minutes Total Treatment Time: 33 Minutes Ausetn Puga, VITA Date: 12/13/2024 documented in this encounter [facility] 12-06-2024 History of Present illness Narrative Images from the original note were not included. [facility] Daily Note Date: 12/06/2024 [...] hip abd 4+/5 for improved pelvic stability Alf Goals Time Frame for Alf Goals : 16 Alf Goal 1: Improve functional mobility with Oswestry score <15/50 (from 22/50) Retail Area Manager Goal 2: Decrease R SI pain 4/10 at worst x3 days Treatment Tolerance: Treatment Tolerance: Tolerated treatment well. Post Treatment Pain: 6/10 Time In: 9:45 Time Out : 10:18 Timed Code Treatment Minutes: 33 Minutes Total Treatment Time: 33 Minutes Clara Castrejon, PT Date: 12/06/2024 Images from the original note were not included. [facility] Progress Report Date: 12/06/2024 Patient: Meena Lucero : 1995 Referring Provider (secondary): Dr. Partida Diagnosis: R buttock pain, sacral pain Treatment Diagnosis: back pain, SI pain Onset Date: 09/28/24 (Referral) PT Insurance Information: [facility] Total # of Visits Approved: 16 Per [...] hip abd 4+/5 for improved pelvic stability Alf Goals Time Frame for Alf Goals : 16 Alf Goal 1: Improve functional mobility with Oswestry score <15/50 (from 22/50) Retail Area Manager Goal 2: Decrease R SI pain 4/10 at worst x3 days Clara Castrejon, PT Date: 12/06/2024 documented in this encounter [facility] 11-20-2024 History of Present illness Narrative Reason [...] hours PRN ALLERGIES Allergies Allergen Reactions Hydrocodone Ponce Oil Hives Codeine Rash and Unknown Chest [...] of: CANDACE Avitia documented in this encounter [facility] 10-17-2024 History of Present illness Narrative Reason [...] hours PRN ALLERGIES Allergies Allergen Reactions Hydrocodone Ponce Oil Hives Codeine Rash and Unknown Chest [...] nursing note reviewed. Exam conducted with a coffee blender present. Vitals: Estimated body mass index is [...] Gary Robison DO documented in this encounter [facility] 10-17-2024 History of Present illness Narrative Occupational Therapy [facility] Date: 10/17/2024 Patient Name: Meena Lucero : 1995 Pt Cancelled Appt due to no reason for cancel Trinity Keys Kimberly Date: 10/17/2024 documented in this encounter [facility] 10-12-2024 History of Present illness Narrative Images from the original note were not included. [facility] Daily Note Date: 10/12/2024 Patient Name: Meena Lucero : 1995 (28 y.o.) Referring Provider (secondary): Dr. Partida Diagnosis: R buttock pain, sacral pain Treatment Diagnosis: back pain, SI pain Onset Date: 09/28/24 (Referral) PT Insurance Information: [facility] Total # of Visits Approved: 16 Per [...] hip abd 4+/5 for improved pelvic stability Alf Goals Time Frame for Retail Area Manager Goals : 16 Retail Area Manager Goal 1: Improve functional mobility with Oswestry score <15/50 (from 22/50) Alf Goal 2: Decrease R SI pain 4/10 at worst x3 days Post Treatment Pain: 4/10 Time In: 8:00 Time Out : 8:33 Timed Code Treatment Minutes: 33 Minutes Total Treatment Time: 33 Minutes Clara Castrejon, PT Date: 10/12/2024 documented in this encounter [facility] 10-04-2024 History of Present illness Narrative Physical Therapy [facility] Date: 10/04/2024 Patient Name: Meena Lucero : 1995 Pt Cancelled Appt due to therapist ill Trinity Massimo Harris Date: 10/04/2024 documented in this encounter [facility] 09-18-2024 History of Present illness Narrative Reason for Appointment: Patient ID: Meena Lucero is a 28 y.o. female who presents for Routine Visit Patient presents today for Return OB appointment. MEDICATIONS Current Outpatient Medications Medication Instructions 27-1 MG tablet Every 24 hours MV-Min-Fe Fum-FA-DHA ( 1 PO) Oral promethazine (PHENERGAN) 12.5 mg, Oral, Every 6 hours PRN ALLERGIES Allergies Allergen Reactions Hydrocodone Ponce Oil Hives Codeine Rash and Unknown Chest [...] nursing note reviewed. Exam conducted with a coffee blender present. Vitals: Estimated body mass index is [...] or undercooked meat, and stay away from [facility]. Patient has been consulted regarding any [...] Gary Robison DO documented in this encounter [facility] 08-18-2024 History of Present illness Narrative Reason [...] Date CHOLECYSTECTOMY TONSILLECTOMY Allergies Allergen Reactions Hydrocodone Ponce Oil Hives Codeine Rash and Unknown Chest and back pain Hydrocodone-Acetaminophen Unknown and Rash Oxycodone-Acetaminophen Rash and Unknown Vitals: Estimated body mass index is 34.95 kg/m as calculated from the following: Height as of 5/19/23: 5' 5 . Weight as of this [...] screen, urine; Future Nurse Note: Pt given [place] and advised to have labs done [...] Daxa Martinez MA documented in this encounter [facility] 07-27-2024 History of Present illness Narrative Images from the original note were not included. [facility] Daily Note [...] Goals Short Term Goal 1: STG= LTG Alf Goals Time Frame for Alf Goals : 16 visits Alf Goal 1: Decrease subjective SI/right gluteal pain to <3/10 with activity and transitional movements Post Treatment Pain: 5/10 Time In: 0910 Time Out : 0935 Timed Code Treatment Minutes: 25 Minutes Total Treatment Time: 25 Minutes Onel Brown, PT Date: 07/27/2024 documented in this encounter [facility] 07-06-2024 History of Present illness Narrative Images from the original note were not included. [facility] Daily Note [...] strengthening for self-correction of pelvic asymetry- MET Alf Goals Time Frame for Alf Goals : 10 visits Alf Goal 1: Decrease subjective SI/right gluteal pain to <3/10 with activity and transitional movements Retail Area Manager Goal 2: Upgrade HEP for pelvic stab ex Retail Area Manager Goal 3: Maintain symetrical pelvic alignment for 5 consecutive days Post Treatment Pain: 4/10 Time In: 0910 Time Out : 0945 Timed Code Treatment Minutes: 35 Minutes Total Time: 35 Minutes ASIA MIX PT Date: 07/06/2024 documented in this encounter [facility] 06-29-2024 History of Present illness Narrative Images from the original note were not included. [facility] Daily Note [...] strengthening for self-correction of pelvic asymetry- MET Alf Goals Time Frame for Retail Area Manager Goals : 10 visits Alf Goal 1: Decrease subjective SI/right gluteal pain to <3/10 with activity and transitional movements Alf Goal 2: Upgrade HEP for pelvic stab ex Alf Goal 3: Maintain symetrical pelvic alignment for 5 consecutive days Post Treatment Pain: 2-3/10 Time In: 0915 Time Out : 0955 Timed Code Treatment Minutes: 35 Minutes Total Time: 40 Minutes ASIA MIX PT Date: 06/29/2024 documented in this encounter [facility] 01-10-2023 Hospital Discharge instructions Fei Canales MD - 01/10/2023 3:17 PM EST There was a possible concern for fracture of the fibula. Please follow-up with Dr. Rehman for further evaluation and be sure to use crutches and be nonweightbearing until then. The following attachments cannot be sent through Care Everywhere.Ankle Sprain (Filipino)documented in this encounter [facility] Work Phone: 12-08-2022 Hospital Discharge instructions [...] than 2 years old. Live in a penitentiary. Travel on cruise ships. What are the [...] and water are not available, use hand event mgr. Make sure that all people in your household wash their hands well and often. Take xasz-cfx-agsnocr and prescription medicines only as told by [...] and water are not available, use hand event mgr. This information is not intended to replace advice given to you by your health care provider. Make sure you discuss any questions you have with your health care provider. Document Released: 11/08/2006 Document Revised: 04/26/2020 Document Reviewed: 09/13/2019 Elsevier Patient Education 2020 [employer] Follow Up Care 12/08/2022 09:17:52 With:Keyon BROWN MD, FAM Address: When: only if needed [facility] [place] 12-04-2022 Hospital Discharge instructions Jason Tracy MD - 12/04/2022 4:33 PM EST Increase fluids at home. Take Zofran for any nausea. Try Imodium/loperamide for diarrhea. Call primary care doctor for close follow-up. Use Tylenol or Motrin to keep fever down. The following attachments cannot be sent through Care Everywhere.Viral Infections (Filipino)documented in this encounter [facility] Work Phone: 06-01-2022 Hospital Discharge instructions Patient [...] height. This can be done either in Filipino ([place] or metric measurements. Note that charts are available to help you find your BMI quickly and easily without having to do these calculations yourself. To calculate your BMI in Filipino ([place] measurements, your health care provider will: [...] medical problems. BMI can be measured using Filipino measurements or metric measurements. To interpret your [...] 07/20/2005 Document Revised: 10/21/2018 Document Reviewed: 09/21/2018 [employer] Patient Education 2020 [employer]. 06/01/2022 13:15:39 Carpal Tunnel Syndrome Carpal Tunnel [...] Having a job, such as being a recreation instructor or a parimutuel cashier, that requires you to repeatedly move [...] 3 times per day. General instructions Take ijxp-ksb-gzzqanl and prescription medicines only as told by [...] 11/05/2001 Document Revised: 03/17/2019 Document Reviewed: 03/17/2019 [employer] Patient Education 2020 [employer]. Follow Up Care 05/28/2022 08:22:05 With:Meena Carl CNP Address: When: only if needed [facility] Evaluation + Plan note [facility] Evaluation note Diagnosis Subacute bronchitis- Primary Acute bronchitis documented in this encounter [employer] Phone: evaluation note* Diagnosis Left wrist pain Pain in joint, forearm documented in this encounter [employer] Phone: [email or web address] note* Diagnosis Viral illness- Primary Unspecified viral infection, in conditions classified elsewhere and of unspecified site documented in this encounter [employer] Phone: [email or web address] note* Diagnosis Injury of right ankle, initial encounter- Primary documented in this encounter [employer] Phone: [email or web address] note* Diagnosis Other closed fracture of proximal end of right fibula with routine healing, subsequent encounter documented in this encounter [employer] Phone: [email or web address] note* Diagnosis First trimester state, incidental 11 weeks gestation of Encounter for sterilization education documented in this encounter [facility] HealthcareEvaluation note* Diagnosis Screening, , for anatomic survey Encounter for anatomic survey 15 weeks gestation of Second trimester state, incidental Encounter for gynecological examination without abnormal finding Vaginal discharge Leukorrhea, not specified as infective STD exposure Nausea and vomiting during documented in this encounter [facility] HealthcareEvaluation note* Diagnosis Missed menses First trimester state, incidental 6 weeks gestation of , unspecified gestational age Encounter for supervision of normal first in first trimester documented in this encounter [facility] HealthcareEvaluation note* Diagnosis Second trimester state, incidental 20 weeks gestation of Diabetes mellitus screening Screening for diabetes mellitus documented in this encounter [facility] Healthcare[facility]ospital course Narrative No data available for this section [facility] Hospital Discharge instructions* Attachments The following attachments cannot be sent through Care Everywhere. * Bronchitis (Filipino) [facility] progress note No data available for this section [facility] Reason for referral (narrative) Referred by: Meena Carl CNP [facility] Advance Directives No Advanced Directives Records FoundDocuments on File Type Date Recorded Patient Land Manager Expl anation ACP-Advance Directive ACP-Power of Voice Studies Director Summary Purpose Family History No Family History [...] Care Team (unrecognized sect ion and content) [employer] Site Monitor Relationship Specialty Start Date End Date Keyon Brown MD [address] [place] [address] PCP - General Family Medicine 12/04/22 [employer]ellite Project Site Monitor Relationship Specialty Start Date End Date Keyon Brown MD [facility] [place] [address] PCP - General Family Medicine 12/04/22 Satellite Project Site Monitor Relationship Specialty Start Date End Date Keyon Brown MD [address] [place] [address] PCP - General Family Medicine 12/04/22 Satellite Project Site Monitor Relationship Specialty Start Date End Date Óscar Villagran DNP [address] [phone] PCP - General Family Nurse Practitioner 03/14/24 [employer]ellite Project Site Monitor Relationship Specialty Start Date End Date Óscar Villagran DNP [address] [phone] PCP - General Family Nurse Practitioner 03/14/24 Satellite Project Site Monitor Relationship Specialty Start Date End Date Óscar Villagran DNP [address] [place] [address] PCP - General Family Nurse Practitioner 03/14/24 Satellite Project Site Monitor Relationship Specialty Start Date End Date Óscar Villagran DNP [address] [place] [address] PCP - General Family Nurse Practitioner 03/14/24 [employer]ellite Project Site Monitor Relationship Specialty Start Date End Date Keyon Brown MD [address] [place], [place] [address] [address] PCP - General 05/12/23 Gary Robison DO [address] [place] [address] [place] [address] PCP - [facility] 02/21/24 Satellite Project Site Monitor Relationship Specialty Start Date End Date Keyon Brown MD [address] [phone] PCP - General 05/12/23 Gary Robison DO [facility] [address], [place] [phone] PCP [facility] 02/21/24 Satellite Project Site Monitor Relationship Specialty Start Date End Date Óscar Villagran DNP [address] [place] [address] [place] [address] PCP - General Family Nurse Practitioner 03/14/24 Satellite Project Site Monitor Relationship Specialty Start Date End Date Keyon Brown MD [facility] [address] [phone] PCP - General 05/12/23 Gary Robison DO [facility] [address] [place], [facility] PCP [facility] 02/21/24 Satellite Project Site Monitor Relationship Specialty Start Date End Date Keyon Brown MD [facility] [address] [phone] PCP - General 05/12/23 Gary Robison DO [facility] [address] [place], [facility] PCP [facility] 02/21/24 Satellite Project Site Monitor Relationship Specialty Start Date End Date Keyon Brown MD [address] [phone] PCP - General 05/12/23 Gary Robison DO [address] [place] [address] [address] - [facility] 02/21/24 Satellite Project Site Monitor Relationship Specialty Start Date End Date Keyon Brown MD [address] [phone] PCP - General 05/12/23 Gary Robison DO [address] [place] [address] PCP - [facility] 02/21/24 Satellite Project Site Monitor Relationship Specialty Start Date End Date Keyon Brown MD [address] [phone] PCP - General 05/12/23 Gary Robison DO [address] [place] [address] PCP - [facility] 02/21/24 Satellite Project Site Monitor Relationship Specialty Start Date End Date Óscar Villagran DNP [address] [place] [phone] PCP - General Family Nurse Practitioner 03/14/24 INFORMATION SOURCE (unrecogn ized section and content) DATE CREATED AUTHOR [facility]/01/2023 [facility] DATE CREATED AUTHOR AUTHOR'S ORGANIZ ATION 04/01/2023 [facility] DATE CREATED AUTHOR AUTHOR'S ORGANIZ ATION 11/20/2024 [facility] DATE CREATED AUTHOR AUTHOR'S ORGANIZ ATION 12/15/2024 Kirsty charles FOR RECORDS PERTAINING TO PATIENTS [...] BE BASED ON THE PRIMARY CLINICAL RECORDS. [facility]. provides no warranty or guarantee of the accuracy or completeness of information in this document.
[2024-12-19 09:21] LABS: Basophils Percent Auto 0.2 % (0.2-2.0); Eosinophils Absolute Auto 0.1 10^3/uL (0.0-0.7); Eosinophils Percent Auto 0.9 % (0.9-7.0); Hematocrit 34.6 % (36.0-48.0); Hemoglobin 11.5 g/dL (12.0-16.0); Immature Granulocytes Abs Auto 0.02 10^3/uL (0.00-0.03); Immature Granulocytes Pct Auto 0.3 % (0.0-0.5); Lymphocytes Absolute Auto 1.3 10^3/uL (1.2-3.8); Mean Corpuscular HGB Conc 33.2 g/dL (29.9-35.2); Mean Corpuscular Hemoglobin 28.8 pg (26.7-34.0); Mean Corpuscular Volume 86.5 fL (81.0-99.0); Mean Platelet Volume 11.7 fL (9.5-13.5); Monocytes Absolute Auto 0.4 10^3/uL (0.3-0.8); Monocytes Percent Auto 7.2 % (1.7-12.0); Neutrophils Percent Auto 69.4 % (43.0-75.0); Platelet Count 117 10^3/uL (150-450); Red Cell Distribution Width 13.2 % (11.0-15.0); White Blood Count 5.7 10^3/uL (4.0-11.0)
[2024-12-19 10:22] LABS: Glucose 1 Hour 93 mg/dL (<130)
== END 2024-12-19 08:06 | disposition home or self-care (01) ==
LOC: LAB 08:08
PROVIDERS: Physician Assistant; Visit Provider Obstetrics & Gynecology
DX: Z13.1 Encounter for screening for diabetes mellitus (principal)
CPT/HCPCS: 36415; 82950; 85025

== ENCOUNTER 2024-12-25 08:09 | Outpatient (OUT) | payer OTHER, SELFPAY ==
[2024-12-25 08:26] LABS: Platelet Count 139 10^3/uL (150-450)
--- OUTSIDE RECORDS SUMMARY | 2024-12-25 08:28 | XMS_ITS | CCD ---
Author Organization [facility] Care Team Providers Care Fire Lieutenant Name Role Phone Unavailable Primary Care Provider UnavailCharli Browne Primary Care Physician Keyon Brown MD Primary Care Provider ANTHONY Carl Attending UnavailKeyon Lockett Attending Unavailable Evan Moyer Attending Unavailable LISHA, DR DRUMMOND LISTED Consulting Unavaila ble [facility] NICOLE Primary Care Unavailable ENRIQUETA ., DR BENDER Attending Unavailable ENRIQUETA ., DR BENDER Admitting Unavailable Clingman HUMA, Óscar Moreno Primary Care Provider Tyshawn FINN, Óscar A Primary Care Provider Keyon Brown MD Primary Care Provider Gary Robison DO Unavailable GARY ROIBSON Attending Unavailable GARY ROBISON Attending Unavailable GARY ROBISON Attending Unavailable GENEVIEVE PINTO Attending Unavailable JOHN PARTIDA Attending Unavailable JOHN PARTIDA [...] PARTIDA Attending Unavailable JOHN PARTIDA Referring Unavailable JOHN PARTIDA Referring Unavailable JOHN PARTIDA [...] PARTIDA Attending Unavailable JOHN PARTIDA Referring Unavailable JOHN PARTIDA Attending Unavailable JOHN [...] PARTIDA Attending Unavailable JOHN PARTIDA Referring Unavailable JOHN PARTIDA Attending Unavailable JOHN PARTIDA Referring Unavailable CLINGMAN, ÓSCAR A Primary Care Unavailable CLINGMAN, ÓSCAR A Primary Care Unavailable OJHN PARTIDA Referring Unavailable CLINGMAN, ÓSCAR A Primary Care Unavailable JOHN PARTIDA Attending Unavailable JOHN PARTIDA Referring Unavailable JOHN PARTIDA Attending Unavailable JOHN PARTIDA Referring Unavailable CLINGMAN, ÓSCAR A Primary Care Unavailable CLINGMAN, ÓSCAR A Primary Care Unavailable JOHN PARTIDA Attending Unavailable JOHN PARTIDA Referring Unavailable CLINGMAN, ÓSCAR A Primary Care Unavailable OLEWILER, JOHN J Referring Unavailable JOHN PARTIDA Referring Unavailable JOHN PARTIDA [...] Unavailable CLINGMAN, ÓSCAR A Primary Care Unavailable Allergies Allergy Classification Reported Allergen(s) Allergy Type Date of Onset Reaction(s) Facility (20 sources) Acetaminophen / HYDROcodone Drug Allergy 7 Rash, Unknown [facility] (20 sources) Acetaminophen / oxyCODONE Drug Allergy 5 Rash, Unknown [employer] (20 sources) Codeine; Translations: [codeine] Drug Allergy 7 Rash, Cutaneous eruption (morphologic abnormality), Unknown [facility] (3 sources) Acetaminophen / HYDROcodone; Translations: [acetaminophen-hy drocodone] Drug Allergy [facility] (3 sources) Acetaminophen / oxyCODONE; Translations: [acetaminophen-ox ycodone] Drug Allergy Cutaneous eruption (morphologic abnormality) [facility] (1 source) Acetaminophen / HYDROcodone Drug Allergy [facility] (1 source) Acetaminophen / oxyCODONE Drug Allergy [facility] (1 source) Codeine Drug Allergy [facility] (19 sources) HYDROcodone Drug Allergy 3 [facility] Healthcare (19 sources) orange allergenic extract Drug Allergy [address] [facility] Medications Current Medications Medication Drug Class(es) Dates [...] extended release oral tablet (6 sources) Uncompetitive W-sqcqmh-N-aspartate Receptor Antagonist, Sigma-1 Agonist Start: 09-14-2021 take 1 tablet by mouth every twelve hours as needed for cough Dextromethorphan-g uaiFENesin 60-1200 MG TB12 Take 1 tablet by mouth every 12 hours as needed (COUGH CONGESTION) 28 tablet 0 09/14/2021 Active dextromethorphan hydrobromide 3 mg/ml / promethazine hydrochloride 1.25 mg/ml oral solution (6 sources) Phenothiazine, Uncompetitive X-ckszft-E-aspartate Receptor Antagonist, Sigma-1 Agonist Start: 05-31-2018 promethazine-dextr [...] day(s), # 30 tab(s), Refills(s) 1, Pharmacy: [id number], 170, cm, 06/01/22 12:55:00 EDT, Height/Length [...] 0 Active metoclopramide 10 mg oral tablet (10 sources) Dopamine-2 Receptor Antagonist Start: 10-17-2024 End: 01-15-2025 metoclopramide (Reglan) 10 MG tablet Indications: Nausea and vomiting during Take 1 tablet (10 mg) by mouth in the morning and 1 tablet (10 mg) at noon and 1 tablet (10 mg) in the evening and 1 tablet (10 mg) before bedtime. 120 tablet 2 10/17/2024 01/15/2025 Active omeprazole 20 mg delayed release oral capsule (11 sources) Proton Pump Inhibitor Start: 11-20-2024 End: [...] 0 05/22/2024 05/27/2024 Active 27-1 MG tablet (14 sources) 27-1 MG tablet 1 (one) time [...] TID, # 15 tab(s), Refills(s) 0, Pharmacy: [id number], 170, cm, 09/03/22 14:31:00 EDT, Height/Length Dosing, 92, kg, 09/03/22 14:31:00 EDT, Weight Dosing Start Date: 09/03/22 Status: Ordered Completed/Discontinued Medications Medication Drug Class(es) Dates Sig (Normalized) Sig (Original) promethazine hydrochloride 12.5 mg oral tablet (19 sources) Phenothiazine Start: 02-10-2024 End: 12-19-2024 take 1 tablet by mouth every six hours for nausea promethazine (Phenergan) 12.5 MG tablet Indications: Nausea and vomiting in Take 1 tablet (12.5 mg) by mouth every 6 (six) hours if needed for nausea or vomiting for up to 14 doses 56 tablet 02/10/2024 12/19/2024 Discontinued (Therapy completed) Problems Active Problems Problem Classification Problem Date Documented Date Episodic/Chronic Acute bronchitis (1 source) Subacute bronchitis; Translations: [Acute bronchitis, unspecified] Episodic Coagulation and hemorrhagic disorders (2 sources) Platelet count below reference range; Translations: [Thrombocytopenia, unspecified] 12-19-2024 Chronic Esophageal disorders (2 sources) Acid reflux 08-22-2016 [...] Missed period; Translations: [Irregular menstruation, unspecified] Onset: 03-04-2024 08-18-2024 Chronic Other complications of (2 sources) Vomiting of , unspecified; Translations: [Unspecified vomiting of , unspecified as to episode of care or not applicable] 10-17-2024 Episodic Other complications of (2 sources) Thrombocytopenic disorder; Translations: [Other diseases of the blood and blood-forming organs and certain disorders involving the immune mechanism complicating , unspecified trimester] 12-19-2024 Episodic Other complications of (2 sources) Placenta circumvallata; Translations: [Circumvallate placenta, second trimester] 12-19-2024 Episodic Other female genital disorders (2 sources) [...] 06-01-2022 Chronic Other and delivery including normal (20 sources) First trimester ; Translations: [Encounter for supervision of normal , unspecified, first trimester] Onset: 10-17-2024 09-18-2024 Episodic Residual codes; unclassified (19 sources) Patient encounter status; Translations: [Other specified health status] Onset: 06-01-2022 Episodic Residual codes; unclassified (2 sources) Gestation period, 11 weeks; Translations: [11 weeks gestation of ] 09-18-2024 Episodic Residual codes; unclassified (12 sources) Gestation period, 15 weeks; Translations: [15 weeks gestation of ] Onset: 10-17-2024 10-17-2024 Episodic Residual codes; unclassified (1 source) Gestation period, 6 weeks; Translations: [Less than 8 weeks gestation of ] 08-18-2024 Episodic Residual codes; unclassified (2 sources) Gestation period, 20 weeks; Translations: [20 weeks gestation of ] 11-20-2024 Episodic Residual codes; unclassified (2 sources) Gestation period, 24 weeks; Translations: [24 weeks gestation of ] 12-19-2024 Episodic Unclassified (2 sources) Non-smoker 06-01-2022 Viral [...] NEGATED: Highlighted row has been ruled out!Unclassified (8 sources) No known active problems 05-22-2024 Results Test Name Value Interpretation Reference Range Facility ALL CBC WITH AUTO DIFFon BASOPHILS ABSOLUTE AUTO 0 [facility] Basophils/100 WBC (Bld) 0.2 % 0.2 - 2.0 % [facility] Eosinophils/100 WBC (Bld) 0.9 % 0.9 - 7.0 % [facility] Erythrocyte distribution width (RBC) [Ratio] 13.2 % 11.0 - 15.0 % [facility] Hematocrit (Bld) [Volume fraction] 34.6 % Low 36.0 - 48.0 % [facility] (Bld) [Mass/Vol] 11.5 g/dL Low 12.0 - 16.0 g/dL [facility] IMMATURE GRANULOCYTES ABS AUTO 0.02 [facility] Immature granulocytes/100 WBC (Bld) 0.3 % 0.0 - 0.5 % [facility] Interpretation and review of laboratory results Abnormal [facility] LYMPHOCYTES ABSOLUTE AUTO 1.3 [facility] Lymphocytes/100 WBC (Bld) 22 % 20.5 - 60.0 % [facility] MCH (RBC) [Entitic mass] 28.8 pg 26.7 - 34.0 pg [facility] MCHC (RBC) [Mass/Vol] 33.2 g/dL 29.9 - 35.2 g/dL [facility] MCV (RBC) [Entitic vol] 86.5 fL 81.0 - 99.0 fL [facility] MONOCYTES ABSOLUTE AUTO 0.4 [facility] Monocytes/100 WBC (Bld) 7.2 % 1.7 - 12.0 % [facility] NEUTROPHILS ABSOLUTE AUTO 4 [facility] Neutrophils/100 WBC (Bld) 69.4 % 43.0 - 75.0 % [facility] Platelet mean volume (Bld) [Entitic vol] 11.7 fL 9.5 - 13.5 fL [facility] TBH EO # 0.1 [facility] TB PLT 117 Low [facility] Healthcar e TBH RBC 4 Low [facility] Healthcar e TBH WBC 5.7 [facility] Healthcar e Urinalysis macro (dipstick) panel (U)on 12-19-2024 Bilirubin, UA Negative Negative - 4(70) +++ mg/dL [facility] Blood, UA Negative Negative - 50 Darnell/mcL [facility] Clarity, UA Clear [facility] Healthca re Color, UA Yellow [facility] Healthcar e Glucose, UA Positive Negative - 1999(110) ++++ mg/dL [facility] Comment on above: 100 mg Interpretation and review of laboratory results Abnormal [facility] Healthca re Ketones, UA Negative Negative - 160(16) ++++ mg/dL [facility] Leukocytes, UA Positive Negative - 500+++ Shona/mcL [facility] Comment on above: small Nitrite, UA Negative Negative - Positive [facility] pH, UA 7 5 - 9 [facility] e Protein, UA Negative Negative - 1999(20) ++++ mg/dL [facility] Spec Grav, UA 1.02 1 - 1.03 [facility] Urobilinogen, UA 0.2 0.2 - 12 mg/dL [facility] Healthcar e Urinalysis macro (dipstick) panel (U)on 11-20-2024 Bilirubin, UA Negative Negative - 4(70) +++ mg/dL [facility] Blood, UA Negative Negative - 50 Darnell/mcL [facility] Clarity, UA Clear [facility] Healthca re Color, UA Yellow [facility] Healthcar e Glucose, UA Negative Negative - 1999(110) ++++ mg/dL [facility] Interpretation and review of laboratory results Abnormal [facility] Healthca re Ketones, UA Negative Negative - 160(16) ++++ mg/dL [facility] Leukocytes, UA Positive Negative - 500+++ Shona/mcL [facility] Comment on above: small Nitrite, UA Negative Negative - Positive [facility] pH, UA 7.5 5 - 9 [facility] [employer] e Protein, UA Negative Negative - 1999(20) ++++ mg/dL [facility] Spec Grav, UA 1.015 1 - 1.03 [facility] Urobilinogen, UA 0.2 0.2 - 12 mg/dL [facility] [employer] IGP,APTIMA HPV,AGE GDLNon AGE GDLN ACOG TESTING Note . [facility] Comment on above: TESTS RESULT FLAG U NITS REF RANGE LAB Clinician Provided Cytology Information Source.............Cervix No. of containers..01 ThinPrep Vial Age Algo ACOG Subha... FLAG LEGEND: L-Low Normal,H-High Normal,LL-Alert Low,HH-Alert High <-Panic Low,>-Panic High,A-Abnormal,AA-Critical Abnormal Performed at: 01 =[facility] [address] [place] [address] Yulisa Mustafa MD, IGP, RFX APTIMA HPV ASCU Note . [facility] Comment on above: TESTS RESULT FLAG UN ITS REF RANGE LAB DIAGNOSIS: 02 NEGATIVE FOR INTRAEPITHELIAL LESION OR MALIGNANCY. FUNGAL ORGANISMS MORPHOLOGICALLY CONSISTENT WITH FELIPE SPECIES ARE PRESENT. Specimen adequacy: 02 Satisfactory for evaluation. Endocervical and/or squamous metaplastic cells (endocervical component) are present. Performed by: Estefany Boucher, Firmware Software Verification Engineer ([facility]) . 02 Note: Note 03 The [...] <-Panic Low,>-Panic High,A-Abnormal,AA-Critical Abnormal Performed at: [address] [place] [address] Pily Shields PhD, [address] [address] Yulisa Mustafa MD, Performed at: = - [address] [id number] Shipping/Receiving Manager: Yulisa Mustafa MD, Phone: [phone] Performed at: [address], [place] [id number] Shipping/Receiving Manager: Pily Shields PhD, Phone: [phone] SPATULA-ALONE CERVIX [facility] RECURRENT VAGINITIS (HTRX)on 10-18-2024 AT[facility]UM VAGINAE [address] [facility] ATOP[facility]BI[facility] VAGINAE Not detected [facility] BVAB 2,3 (BACTERIAL VAGINOSIS ASSOCIATED BACTERIA 2, 3); MOBILUNCUS SPP 0 [facility] BVAB 2,3 (BACTERIAL VAGINOSIS ASSOCIATED BACTERIA 2, 3); MOBILUNCUS SPP Not detected [facility] FELIPE ALBICANS, PARAPSILOSIS, TROPICALIS 0 [facility] FELIPE ALBICANS, PARAPSILOSIS, TROPICALIS Not detected [facility] FELIPE GLABRATA 0 [facility] Hea lthcare FELIPE GLABRATA Not detected [facility] FELIPE KRUSEI 0 [facility] FELIPE KRUSEI Not [facility] CHLAMYDIA TRACHOMATIS 0 [facility] CHLAMYDIA TRACHOMATIS Not detected [facility] GARDNERELLA VAGINALIS 0 [facility] GARDNERELLA VAGINALIS Not detected [facility] MEGASPHAERA (TYPES 1, 2) 0 [facility] MEGASPHAERA (TYPES 1, 2) Not detected [facility] MYCOPLASMA GENITALIUM 0 [facility] MYCOPLASMA GENITALIUM Not detected [facility] NEISSERIA GONORRHOEAE 0 [facility] NEISSERIA GONORRHOEAE Not detected [facility] TRICHOMONAS VAGINALIS 0 [facility] TRICHOMONAS VAGINALIS Not detected [facility] e Urinalysis macro (dipstick) panel (U)on 10-17-2024 Bilirubin, UA Negative Negative - (70) +++ mg/dL [facility] Comment on above: n Blood, UA Negative Negative - 50 Darnell/mcL [facility] Clarity, UA Clear [facility] re Color, UA Yellow [facility] Glucose, UA Negative Negative - 1999(110) ++++ mg/dL [facility] Interpretation and review of laboratory results Normal [facility] re Ketones, UA Negative Negative - 160(16) ++++ mg/dL [facility] Leukocytes, UA Negative Negative - 500+++ Shona/mcL [facility] Nitrite, UA Negative Negative - Positive [facility] pH, UA 6 5 - 9 [facility] e Protein, UA Negative Negative - 1999(20) ++++ mg/dL [facility] Spec Grav, UA 1.03 1 - 1.03 [facility] Urobilinogen, UA 0.2 0.2 - 12 mg/dL [facility] Urinalysis macro (dipstick) panel (U)on 09-18-2024 Bilirubin, UA Negative Negative - 4(70) +++ mg/dL [facility] Blood, UA Negative Negative - 50 Darnell/mcL [facility] Clarity, UA Clear [facility] Color, UA Yellow [facility] Healthcar e Glucose, UA Negative Negative - 1999(110) ++++ mg/dL [facility] Interpretation and review of laboratory results Normal [facility] Health[facility] re Ketones, UA Negative Negative - 160(16) ++++ mg/dL [facility] Leukocytes, UA Negative Negative - 500+++ Shona/mcL [facility] Nitrite, UA Negative Negative - Positive [facility] pH, UA 6.5 5 - 9 [facility] Healthcar e Protein, UA Negative Negative - 1999(20) ++++ mg/dL [facility] Spec Grav, UA 1.015 1 - 1.03 [facility] Urobilinogen, UA 0.2 0.2 - 12 mg/dL [facility] BOX TESTon 09-11-2024 BOX TEST SENT OUT [employer] [facility] BOX1 [facility] e BOX2 11/11/24 [facility] [employer] BOX [facility] Healthcar e HCG ( test) Ql (U)o n 08-18-2024 Interpretation and review of laboratory results Abnormal [facility] Healthca re Preg Test, Ur Positive [facility] Urinalysis macro (dipstick) panel (U)on 08-18-2024 Bilirubin, UA Negative Negative - 4(70) +++ mg/dL [facility] Blood, UA Negative Negative - 50 Darnell/mcL [facility] Clarity, UA Clear [facility] Healthca re Color, UA Yellow [facility] Healthcar e Glucose, UA Negative Negative - 1999(110) ++++ mg/dL [facility] Interpretation and review of laboratory results Abnormal [facility] Ketones, UA Negative Negative - 160(16) ++++ mg/dL [facility] Leukocytes, UA Negative Negative - 500+++ Shona/mcL [facility] Nitrite, UA Positive Negative - Positive [facility] Comment on above: small pH, UA 7.0 5 - 9 [facility] Healthcar e Protein, UA Negative Negative - 1999(20) ++++ mg/dL [facility] Spec Grav, UA 1.015 1 - 1.03 [facility] Urobilinogen, UA 0.2 0.2 - 12 mg/dL [facility] ALL HCG, QUANTITATIVEon 07-23 Interpretation and review of laboratory results Abnormal [facility] Healthca re MHPT HCG, QUANT 18811.0 High [facility] Comment on above: Non-preg premeno <=5 Postmeno <=8 Male <=3 If HCG results do not concur with clinical observations, additional testing to confirm results is recommended. Original Ordering Provider: GARY FOSTERO [facility] HCG, Quanton 08-07-2024 HCG, Quant 88573.0 mIU/mL High <5 [facility] Comment on above: Result Comment: Non-preg premeno <=5 Postmeno <=8 Male <=3 If HCG results do not concur with clinical observations, additional testing to confirm results is recommended. Performed By: #### B HCG #### [facility] [address] [place] [address] Shipping/Receiving Manager: Armen Madrigal MD HCG, Quantitative, on 08-07-2024 [place] [address].0 m[IU]/mL High [facility] Comment on above: Non-preg premeno <=5 Postmeno <=8 Male <=3 If HCG results do not concur with clinical observations, additional testing to confirm results is recommended. Interpretation and review of laboratory results Abnormal [facility] ALL HCG, QUANTITATIVEon 07-23 Interpretation and review of laboratory results Abnormal [facility] Healthca re MHPT HCG, QUANT 1366.0 High [facility] Comment on above: Non-preg premeno <=5 Postmeno <=8 Male <=3 If HCG results do not concur with clinical observations, additional testing to confirm results is recommended. Original Ordering Provider: GARY AGUILAR DO [facility]A [facility] HCG, Quanton 08-02-2024 HCG, Quant 1366.0 mIU/mL High <5 [facility] Comment on above: Result Comment: Non-preg premeno <=5 Postmeno <=8 Male <=3 If HCG results do not concur with clinical observations, additional testing to confirm results is recommended. Performed By: #### B HCG #### [facility] [address] [place], [place] [id number] Shipping/Receiving Manager: Armen Madrigal MD ALL HCG, QUANTITATIVEon Interpretation and review of laboratory results Abnormal [facility] MHPT HCG, QUANT 506.3 High [facility] Comment on above: Non-preg premeno <=5 Postmeno <=8 Male <=3 If HCG results do not concur with clinical observations, additional testing to confirm results is recommended. Original Ordering Provider[facility] H[facility], Quanton 07-31-2024 HCG, Quant 506.3 mIU/mL High <5 [facility] Comment on above: Result Comment: Non-preg premeno <=5 Postmeno <=8 Male <=3 If HCG results do not concur with clinical observations, additional testing to confirm results is recommended. Performed By: #### B HCG #### [facility] [address] [place] [address] Shipping/Receiving Manager: Armen Madrigal MD HCG, Quantitative, on 07-31-2024 HCG.beta subunit Qn 506.3 m[IU]/mL High [facility] Comment on above: Non-preg premeno <=5 Postmeno <=8 Male <=3 If HCG results do not concur with clinical observations, additional testing to confirm results is recommended. Interpretation and review of laboratory results Abnormal [facility] ALL HCG, QUANTITATIVEon Interpretation and review of laboratory results Abnormal [facility] MHPT HCG, QUANT 200.3 High [facility] Comment on above: Non-preg premeno <=5 Postmeno <=8 Male <=3 If HCG results do not concur with clinical observations, additional testing to confirm results is recommended. Original Ordering Provider: GARY MEI [facility] HCG, Quanton 07-29-2024 HCG, Quant 200.3 mIU/mL High <5 [facility] Comment on above: Result Comment: Non-preg premeno <=5 Postmeno <=8 Male <=3 If HCG results do not concur with clinical observations, additional testing to confirm results is recommended. Performed By: #### B HCG #### [facility] [address] [place] [address] Shipping/Receiving Manager: Armen Madrigal MD ALL HCG SERUM,QUALITATIVEon 07-27-2024 Interpretation and review of laboratory results Abnormal [facility] MHPT HCG SCREEN, BLOOD Positive Abnormal NEG [facility] Comment on above: If HCG results do not concur with clinical observations, additional testing to confirm result is recommended. This test is not labeled for use as a tumor marker. [facility] has confirmed the use of plasma for this test. This has not been cleared or approved by the U.S. Food and Drug Administration. The FDA has determined that such clearance is not necessary. Original Ordering Provider: GARY MEI [facility] HCG Screen, Bloodon 07-27-20 24 HCG Screen, Blood Positive Abnormal NEG [facility] Comment on above: Result Comment: If HCG results do not concur with clinical observations, additional testing to confirm result is recommended. This test is not labeled for use as a tumor marker. [facility] [place] has confirmed the use of plasma for this test. This has not been cleared or approved by the U.S. Food and Drug Administration. The FDA has determined that such clearance is not necessary. Performed By: #### H CG #### [facility] [address] [place] [address] Shipping/Receiving Manager: Armen Madrigal MD HCG, Quanton 07-27-2024 HCG, Quant 73.4 mIU/mL High <5 [facility] Comment on above: Result Comment: Non-preg premeno <=5 Postmeno <=8 Male <=3 If HCG results do not concur with clinical observations, additional testing to confirm results is recommended. Performed By: #### B HCG #### [facility] [address] [place] [address] Shipping/Receiving Manager: Armen Madrigal MD HCG, Quanton 06-08-2024 HCG, Quant <1.0 Normal <5 [facility] Comment on above: Result Comment: Non-preg premeno <=5 Postmeno <=8 Male <=3 If HCG results do not concur with clinical observations, additional testing to confirm results is recommended. Performed By: #### B HCG #### [facility] [address] [place] [address] Shipping/Receiving Manager: Armen Madrigal MD XR SACRUM COCCYX (MIN 2 VIEW S)on 05-24-2024 XR SACRUM COCCYX (MIN 2 VIEWS) HISTORY: Sacral pain. TECHNIQUE: 3 views sacrum and coccyx. COMPARISON: None. FINDINGS: Sacroiliac joints are normal. No fracture or acute osseous abnormality is identified. IMPRESSION: No acute process. Interpreted by: Parker Coleman MD Signed by: Parker Coleman MD 05/24/24 Final result Normal [facility] HCG, Quanton 03-04-2024 HCG, Quant 3680.0 mIU/mL High <5 [facility] Comment on above: Result Comment: Non-preg premeno <=5 Postmeno <=8 Male <=3 If HCG results do not concur with clinical observations, additional testing to confirm results is recommended. Performed By: #### B HCG #### [facility] [address] [place] [address] Shipping/Receiving Manager: Armen Madrigal MD Cytology Cervical or vaginal smear or scraping studyon 05-26-2023 [facility] RAD - MISCon 02-01-2023 RAD - MISC [id number] #1.00CD:127 Normal [facility] XR ANKLE RIGHT (MIN 3 VIEWS) on 01-29-2023 FINDINGS/IMPRESSION: 1. Compression fracture tip of the fibula no longer separately seen. 2. Anatomic alignment throughout. 3. Soft tissue swelling has resolved. [facility] EXAM: XR ANKLE RIGHT (MIN 3 VIEWS). HISTORY: Other closed fracture of proximal end of right fibula with routine healing, subsequent encounter. COMPARISON: 01/10/2023. [facility] Mauro Anton Jr., MD - 01/29/2023 EXAM: XR ANKLE RIGHT (MIN 3 VIEWS). HISTORY: Other closed fracture of proximal end of right fibula with routine healing, subsequent encounter. COMPARISON: 01/10/2023. IMPRESSION: FINDINGS/IMPRESSION: 1. Compression fracture tip of the fibula no longer separately seen. 2. Anatomic alignment throughout. 3. Soft tissue swelling has resolved. [facility] Phone: Radiology Study observation (narrative) [facility] Phone: XR ANKLE RIGHT (MIN 3 VIEWS) Ordered By: Mauro Anton on 01-29-2023 [facility] Phone: RAD - MISCon 01-11-2023 RAD - MISC [id number] #1.00CD:127 Normal [facility] XR ANKLE RIGHT (MIN 3 VIEWS) on 01-10-2023 FINDINGS/IMPRESSION: 1. Very small nondisplaced incomplete fracture is questioned in the distal tip of the right fibula, with mild surrounding soft tissue swelling. 2. No other fracture, malalignment, significant arthritis or acute bony abnormality is seen. [facility] CLINICAL HISTORY: Right ankle pain and swelling since an injury yesterday. RIGHT ANKLE 3 VIEWS: [facility] João Amezquita MD - 01/10/2023 CLINICAL HISTORY: Right ankle pain and swelling since an injury yesterday. RIGHT ANKLE 3 VIEWS: IMPRESSION: FINDINGS/IMPRESSION: 1. Very small nondisplaced incomplete fracture is questioned in the distal tip of the right fibula, with mild surrounding soft tissue swelling. 2. No other fracture, malalignment, significant arthritis or acute bony abnormality is seen. [facility] Phone: Radiology Study observation (narrative) [facility] Phone: XR ANKLE RIGHT (MIN 3 VIEWS) Ordered By: João Amezquita on 01-10-2023 [facility] Phone: Ambulatory Visit Summaryon 0 12-08-2022 Ambulatory Visit Summary MEENA LUCERO :1995 Visit Date:12/08/2022 Ambulatory Visit Instructions Your Diagnosis Gastroenteritis due to [place]-like virus Obesity due to excess calories BMI [...] to 60 minutes before meals Pickup at [facility] Unchanged multivitamin, ( Multivitamins with Vitamin B Complex, Vitamin C, Minerals and L-Methylfolate oral capsule) 1 Capsules By Mouth Every day Contact prescribing physician if questions or concerns Unchanged ondansetron (Zofran ODT 4 mg Tab-Dis) 1 Tablets By Mouth 3 times a day Contact prescribing physician if questions or concerns Pharmacy Information [facility]: [address], [place] [id number] [phone] Medications and Immunizations Administered Not Given influenza virus vaccine, inactivated, Postpone due to refusal SARS-CoV-2 mRNA (tozinameran 5y-11y) vac, Postpone due to refusal Allergies Percocet 5/325 (Hives, Rash) Vicodin (Hives) codeine (Hives, Rash) Problems Ongoing - Any problem that you are currently receiving treatment for. BMI 31.0-31.9,adult Gastroenteritis due to [place]-like virus Non-smoker Obesity due to excess calories [...] 1 years old. ? Live in a fci. ? Travel on cruise ships. What are [...] system (more content not included)... Normal [facility] ED Note-Physicianon 12-08-19 ED Note-Physician [id number] #1.00CD:127 Normal [facility] Family Medicine Office/Clini c Noteon 12-08-2022 Family [...] for influenza and COVID. 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 Gastroenteritis due to [place]-like virus (A08.8: Other specified intestinal infections) Viral [...] day(s), # 30 tab(s), Refills(s) 0, Pharmacy: [facility], 170, cm, 12/08/22 12:00:00 EST, Height/Length Dosing, 90.5, kg, 12/08/22 12:00:00 EST, Weight Dosing Follow-up With When Contact Information Keyon BROWN MD, FAM Only if needed Additional Instructions: Patient Education Viral Gastroenteritis, Adult Problem List/Past Medical History Ongoing BMI 31.0-31.9,adult Gastroenteritis due to [place]-like virus Non-smoker Obesity due to excess calories [...] Alcohol Use, 05/26/2017 Employment/School 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 Normal [facility] Comment on above: Result Comment: Elec tronically [...] 1 years old. ? Live in a fci. ? Travel on cruise ships. What are [...] and water are not available, use hand color paste mixing supervisor. ? Make sure that all people in your household wash their hands well and often. ? Take prwb-jjq-mufllio and prescription medicines only as told by [...] person (more content not included)... Normal [facility] COVID-19, Rapidon 12-04-2022 SARS-CoV-2 (COVID-19) RNA WADE+probe Ql (Unsp spec) Not detected Not Detected [facility] Comment on above: Rapid NAAT: The [...] management decisions. Fact sheet for Healthcare Providers: https://www.fda.gov/media/908764/download Fact sheet for Patients: https://www.fda.gov/media/312571/download Methodology: Isothermal Nucleic Acid Amplification Specimen Description .NASOPHARYNGEAL SWAB [facility] Rapid influenza A/B antigens on 12-04-2022 Flu A Antigen Negative NEGATIVE [facility] Comment on above: for Influenza A Anti gen Flu B Antigen Negative NEGATIVE [facility] Comment on above: for Influenza B Anti gen. [facility] C Urineon 09-06-2022 Bacteria identified Cx [...] Locations R1: This test was performed at: [facility], [address] [place] [address], [address] , , [facility] Comment on above: Performed By: #### 2 [id number], [id number], [id number] ####[facility] [address] [place] [address] Coding Summary.on 09-04-2022 Coding Summary. CD:[id number] Gh0bWw+PGhlYWQ+PE1FV LHrU88myUHujN8MT3uTU C1PCZQCMYBWSC7SAL9ll NI1FNjlR9TeqeCc RkcrhNRxJU33LCb2OWZ0 gVldOYlkcU1raSTvX4x4 GdYuKY94qG52IZonWMTd DxH8FcHwyvswgRUr F9azFwAojZAuKaf+PHRh YmxlIHdpZHRoPScxMDAl YpTatAhcJK1qQw0kNWNg LWNvbGxhcHNlOiBj i6lbNYRcEQawIX2wtMzw U9RaxAI0KOFeq5p0Re66 dHI+OSAgPKP3qIeeIQve i010ZwSwj4zhGHE1 pBAgNEfwUHH3G02re2T6 UPQsHSNdTRT0hZR9wH1a iAiaqsxoH0SfaSUxFuX3 BGY4iPBjkA8uxYab rtmwpH4yYqm+H42ESD0O LMRXEK3BEvk5S9IdQsbs dHI+NY49CSZkQU19bLOh gAWtq7jahMn9AcGx REHjNRB1fHlbZBvud0Kx YECjF83hqUKgu2V0ZCSv eCjyuQQkCsGroNG0dH5s VFhbbfsja0wuglsh Dqybh1psta27iX96A47u VAjoDBMgAUY9FFNgMSQu rJjknh8mzY5aXt7+IDxj w8dwh2unbKl2NnUo SWXbxcIxdJvlIFV5s2Zo Rb11Z6ThyYkam4QsPxa0 ln91rZHzf5E8lZF3EFsy TBWhgB4pVAdlTuW2 MNHvDmLzgL91qDWfCSoz Zi7rtJrrhBxsPL8zXSNl dopyWUBsuO9qTLIzfNTf pSbrFG9mSDAcqrqv g654SrCgSHA7UVMwpJDs N5TjtB2gZcDkDSYoKFLd P0LqaDDqZTjfG562IBjd JhQ5QLSitrYjJ5Pk VAYgsEurYdM6n2U4Pk0G a5RnybjzEEM5VEdvHLJt AlT7GiVxChU7I5QrQyk9 VXPryOrjNV6sT2Cp NZKeovvkyveyoOA3CPWl KGPxlE49mWPtJLuzOq3p a5N6y924TZNtJPCzhT67 Oy1cmVutHHCkzYRY lR9ubstti9qjojmeRiZb NTNlLWb5HEb5SREmiVzx JkEsOOR5XqN8SAL1oPUs wU7wbLaztusodR4g Oyc+K85ugJ2rCPG5CEB9 atevPCDauaJeWC63GV38 C7SmHukfsMOxwEL+PGRp quZitNibIV9dQzTs w8ewy2KdVHfnZ9UsXUZj DTjpGmm0EGMeXCC8zTP5 mQ4jQTKpUGssw8O1vCY0 H2TfwpAlpe6ip8gi XPRrATbzQ42syMZwm6P2 BSBemKK4MGVldNkxRnAi aJ04Kvn+VXDdaHzdt8Wu Pmtgw1mtl2yuiDh2 IjMwJSIgdmFsaWduPSJ0 z1QePr83O43yVClwSNQz RCMuXGDvFBUetDczpv2d cN8rVu8+PGNvbCB3 tOV9tE7hCYVwEwA0DPfi S037BxZyjXMsAjqal9pa w3nkmIp5DfKmEWPnbuAy iAaeMQH7a3ZlTd81 M18hSGfsCZBnDNSnSUJc PHVgjFjwhg8cbQ7wJq1+ UY0gx3ojfv54kE35zIC+ MAOfSPM5oYyjZNgo BHNlkE8tTReoUkJ4NQKf VrYkqA09uNVuZJhpIv9a uDwwbEujRK5vAOGbhqxl k441WxEji5iuJMCn xZWeSTmyITC9K39sv8X4 QUExBFAuINX9nEZ2lD7o bGlnbjogbGVmdDsgdmVy qZtcJKlqMSxsT812 IHRvcDsnPlBhdGllbnQg TyTfDEa2R4SfUtt9ZAUp fDoxBR5uoSGdHRhjVl3g kPhhuIauVP8tNPXz qwmzb414XnJsx9njMFCn jSPrHNbcAAW2A27lf5O7 GHHzPYVxDGR2yKM9cG8h bGlnbjogbGVmdDsg bfIuaLpuEJphOHyfG326 IHRvcDsnPkJpcnRoIERh mLQ7YO51BA94pLAia1S7 cGC3U0HjMICethhz pmjyiAJ2AMIfBNNcoG63 Lp3rdAijNa0vYJRjINJ6 VUKeuEJiW0FikC6cAiMg SCPlCTYxK3GomXVi HIydN383GNtdCgO3LNCr nkOhG3ZzGTYomIkdLeV5 s0B6Hb7HJ0K5EF92ES62 rYEkt7X9tJZ8Z3Gr REZhpcfjwhztoTD0YRDu IBRbfP23Cm5rkNfwQb4l BOPjPZY6CBBclPBdO0Oy oF9nFgHmAZQvWIIm N6EleTUeTTvlU949QOac DhX9EDXfpqOpS8XbINOg vEtbQhI2c2U7Op1QZXp7 VB82SS84wXKpb3A0 dVO4S0EeDEIncufjyyjm dUX9MLWjAAEkwG76Xu4b pZkyIs6rSVPeOZD3JNSl vEWcT9ZzdH3lZkDk TKFpICCgC7DweHSaESbt P629OLxrQjL0TXWtugLb O8SwIINxyBskYkI5k0B7 Vq6PPZJvFM07WEJ4 gXQ1EW46YV46C6NsGqon dGFibGU+PHRhYmxlIHdp ZHRoPScxMDAlJyBzdHls BR5jLp8uKQFaNOEa gZvvoAYtZpGwu1djRHFb XPgxWZ2qpZxaA8AtdYF0 FIZeo2t4Zt73O77wR8Sg dXA+CKVpiHF2eLN9 iA3tTnEaWyI0BVryS019 WhBcbCGlCvcza5vrv7yd aDc4EmC1NLHosjIkeTpt VNB0p4SaJn22B98k IHdpZHRoPSIxNSUiIHZh fKauts1xmA1iNr1+PGNv uIN7kYC0hJ4xOiFcXvN7 UCkrI202JfLujUFf Aakll3epi5skxZw6KcDg GSJozxGsuLgyAEV7b5Ev Ha09O7VfdOrbp8RySyn7 jx54iYXcf2A8nUO1 H1TfXYLuheslcRIcjCmh PH7tEMVypdznFPIxeU3n THWwM5e5EcOdGgJ4OMpe B9EoxuW0BCQxrDIt JEgcEJU7Z81rg8A6AHQq CXYvDMO4zXJ6iO3inSnx bjogbGVmdDsgdmVydGlj IQeyTZsiX477SYXf sWfzCWVqxS7dPOMviCHk nZsrMB2hPMHgdaqyXpHG Tf4KBPZpOIaXESrOND2n RTwvdGQ+PHRkIHN0 oLnwVZxmZTArjS7uZKUy W0x0AqSzKmF4BAueR8Dp VLSlszirYm10mP7iLrMb DvA7DHhvI5JcstP3 VAHliPVwRRalFZF4R26a z2A9ZIVsCYIgKST1xGS6 iU3mrDvxnqkbqKDlcIcj dmVydGljYWwtYWxp A327LTQjpIpoSeWiTvR0 VtU2WTP6V4KwNbf4WELl vLtyIO1wrRJpXLrdYt3f tVlaaFxgVH7fRJMv dzetYLRirI6gOXWhlHSd jNocGV3xPQIpoqqdn760 PaDyZPP9BHPbnUPkB6Od dG2sLpCqGNHzQPPv K4MnkSXaEAsoY994PCft CnV2RKGucnKkG4ZkHFLv eDssPsT1o3U1Su1jGdNQ ZWFyczwvdGQ+PHRk VUD5qTdaWKonLEAcbS3c FRZyS2l3ApUeDyU1QAoj D8ZfPRQrpokqCb43pJ0h BxTaJfT5RUasT0Hj luY2VQEnxYRhGRqyJTC3 H82jq3J5RBAtOUEaACU7 sEM1jN3odEjtfrtdsRMe dDsgdmVydGljYWwt SCthE093TQIbiOgaEsNb bWFsZTwvdGQ+PHRkIHN0 tImgJFvaXZWmgX9aYQSm V8m0BnOpSzU3FLkr R6YkBIWirlmdSm17sR0w TzGaRrL8HOogL0QlidW2 HBCgaGOuYNjeDYC5M85o h8M6NMUjTQOvLJL2 vWG8sI0npOlrwqpbnLJl dDsgdmVydGljYWwtYWxp O007UHPdzMydWoAqKQNk RY1tzBbfqIL+PC90 cu76M7CrOqopDpr5FZBo LHH0pSX6zB5fZWPtBLct x5F7tOP5H8SetqOgaw1m u8imMKXtTClwX48o eBLfw7O5VFKxtUO2XDRj yAsiTsErcQ18Vic+PGNv aRxrq2McXonbg2odj0ks wNw8YdJvIKIbkmRe aCzjIOR9u3XrOp22S75y IHdpZHRoPSIzMCUiIHZh fWvbyy4wkV6cGb5+PGNv dXF1mHU4uM1tRgGg XoJ9HPlaG888KmWwdCWp Cbhsn6psz2fbbTr9YvKh MAZtkfOlaVupZQX4n6Rk Pw86E6AajVpou2Gj Xzb9vu40bOVym5B1qJJ9 S1ZkCJPtjheniOOjvHlg UO0mHDQsomxzCGTtmC8a DNSaV9c1LsDhDqO1 EElqO2FrfmV4GRUizNRb HWOzjMVWyC7pclxht4mf wpjvSyMhTOJqAJa0BQc3 LWFsaWduOiBsZWZ0 VgW6RUW7hBYciS1blNpc opakzX5yMww+SJb2z5tg fOTyMK6ozPM5XF61ZC08 wBGyn9M6tCR4V0Th MFGlexxludlivRE3SVKy POXhaW06Or8psBouTk5p CZJhUNE5JFEvdAXnJ4Pu oB0cBaTnUVBuUMXs N7FzoVSiBOhzJ461FXwr EwR3EEIsvcSxC1XvHQCw iIpdYxC6g2K4Xv6PHX47 AY73JW04cBFif5N3 aZX7D4LtQVWimaxtqbom yRJ4UYMuWDNdtN56Nw5k dGfyUl1fEYFnESV4MUYi xWBkW3EjbV6bTdYs LPMwSOZrU0UwoSOqALtz P278YDfaKaR1XQNagdZx O3FzLBHbxEzuOsM6g1X4 Gi7QYx36CA60DM13 iLTqw3I7ePM8Y6QyEVYt yexxyzwjqEB1EQThUKRi nG85Pm5gyXtgWk6rASXh WSM9UQPdoFAxI5Hr gR4dJlZzJUNeEGKlC9Yp zQIbCZlgE733KXqsJfQ1 ULLimvMiS3IbLADlqSfu TzF0o0B4Rl3FUStr oxx5N2YkZrkvwQL+PC90 KFWtPT17xENwbZSyz5yi hXn9IpIlVPEmFJH0lCtx LRtel1RtHEYrM24p bGFw (more content not included)... Normal [facility] Consent for Treatmenton 08-22 Consent for Treatment [id number] #1.00CD:127 Normal [facility] Discharge Instructionson Discharge Instructions [id number] #1.00CD:127 Normal [facility] ED Clinical Summaryon 2021 ED Clinical Summary [address] [address] ED Clinical Summary Person Information Name: MEENA LUCERO Gayathri/[facility] Age: 26 Years : 1995 Sex: Female Language: Czech PCP: Charli LOPEZ Marital Status: Single Visit [...] 15:51:51 09/03/2022 15:51:51 09/03/2022 15:51:51 ADDRESS: [address] [place] [id number] PHYS DOC NOTES: MEDICAL INFORMATION: Prescriptions Given: New Medications [facility], [address], [place] [id number], [phone] ondansetron (Zofran ODT 4 mg Tab-Dis) 1 Tablets By Mouth 3 times a day. Refills: 0. Medications to Continue with No Changes Other Medications multivitamin, ( Multivitamins with Vitamin B Complex, Vitamin C, Minerals and L-Methylfolate oral capsule) 1 Capsules By Mouth every day. Refills: 0. PATIENT EDUCATION INFORMATION: Instructions: Nausea and Vomiting, Adult Follow up: With: Address: When: Charli CARLSON [address] [place] [phone] Business (1) In 3 days 09/06/2022 DIAGNOSIS: Nausea & vomiting Normal [facility] ED Note-Physicianon 09-03-20 ED Note-Physician Basic Information [...] TID, # 15 tab(s), Refills(s) 0, Pharmacy: [facility], 170, cm, 09/03/22 14:31:00 EDT, Height/Length [...] CARLSON In 3 days 09/06/2022 EDT [address] [place] [address]- Business (1) Additional Instructions: Patient Education Nausea and Vomiting, Adult Attestation Patient seen and evaluated by the physician registered dental assistant rda. Attending physician was present in the emergency department and supervised care. This visit was performed by both the physician and an APC. I performed all aspects of the MDM as documented. This report was transcribed using voice recognition software. Every effort was made to ensure accuracy, however, inadvertently computerized drum tester mistakes may be present. Appropriate healthcare PPE [...] 14:49:0 (more content not included)... Normal [facility] Comment on above: Result Comment: Elec tronically [...] added (diluted fruit juice). ? Eat bland, jone-lz-ehqula foods in small amounts as you are able. These foods include bananas, applesauce, rice, lean meats, toast, and crackers. ? Avoid fluids that contain a lot of sugar or caffeine, such as energy drinks, sports drinks, and soda. ? Avoid alcohol. ? Avoid spicy or fatty foods. General instructions ? Take tkws-vtx-tqeunwr and prescription medicines only as told by your health care provider. ? Drink enough fluid to keep your urine pale yellow. ? Wash your hands often using soap and water. If soap and water are not available, use hand color paste mixing supervisor. ? Make sure that all people [...] and drinking to prevent dehydration. ? Take aqeg-ean-ipyhbsd and prescription medicines only as told by [...] Reviewed: 04/18/2019 Elsevier Patient Education ? 2019 [employer] Normal [facility] ED Patient Summaryon 022 ED Patient Summary [address] [address] Patient Discharge Instructions Person Information Name: MEENA LUCERO Age: 26 Years Arrival Date: 09/03/2022 14:27:10 Discharge Diagnosis: Nausea & vomiting Primary Care Physician: Charli LOPEZ Provider Information Primary Provider: Evan Moyer DO Advanced Assistant Printer Floor Covering:Neil Meza PA-C The exam and treatment you received in the Emergency Department were for an urgent problem and are not intended as complete care. It is important that you follow up with a doctor, nurse practitioner, or physician?s registered dental assistant rda for ongoing care. If your symptoms become worse or you do not improve as expected and you are unable to reach your usual health care provider, you should return to the Emergency Department. We are available 24 hours a day. MEENA LUCERO has been given the following list of patient education materials, prescriptions and follow-up instructions: Follow-up Instructions: With: Address: When: Charli CARLSON [address] [place] [phone] Business (1) In 3 days 09/06/2022 In the event that this physician does not participate in your insurance network, please consult with your insurance company to find a nearby participating provider. Patient Education Materials: Nausea and Vomiting, Adult A MESSAGE TO ALL PATIENTS REGARDING OPIOIDS PRESCRIPTION OPIOIDS: WHAT YOU NEED TO KNOW Prescription opioids can be used to help relieve gpsitvbg-jm-bzkpmp pain and are often prescribed following a [...] with addiction, tell your health urgent care nurse practitioner and ask for guidance or call [facility]?S National Helpline at 3-221-928-IRYS. y Source: Dep (more content not included)... Normal [facility] U BetaHcg Qualon 09-03-2022 HCG.beta subunit (U) [Moles/Vol] Negative Normal [facility] Comment on above: Performed By: #### 2 [id number], [id number], [id number] ####[facility] [address] [place] [address] UA With Cult Reflexon 2021 Bacteria LM Ql (Urine sed) 2+ /HPF Abnormal Trace [facility] Comment on above: Performed By: #### 2 [id number], [id number], [id number] ####[facility] [address] [place] [address] Bilirubin Ql (U) Negative Normal Negative [facility] Comment on above: Performed By: #### 2 [id number], [id number], [id number] ####[facility] [address] [place] [address] Clarity (U) CLEAR Normal Clear [facility] Comment on above: Performed By: #### 2 9039857, 24659065, [id number] ####[facility] [address] [place] [address] Color (U) YELLOW Normal Yellow [facility] Comment on above: Performed By: #### 2 2093663, [id number], 8649781 ####[facility] [address] [place] [address] Epithelial cells.squamous LM.HPF (Urine sed) [#/Area] 5-8 Normal 0-2 [facility] Comment on above: Performed By: #### 2 [id number], 18668335, 2988615 ####[facility] [address] [place] [address] Glucose Test strip (U) [Mass/Vol] Negative Normal Negative [facility] Comment on above: Performed By: #### 2 7615648, [id number], 1595101 ####[facility] [address] [place] [address] Hemoglobin Ql (U) Negative Normal Negative [facility] Comment on above: Performed By: #### 2 9007958, 80829720, 5338384 ####[facility] [address] [place] [address] Ketones (U) [Mass/Vol] Negative Normal Negative [facility] Comment on above: Performed By: #### 2 6366620, 27867243, 6710480 ####[place] [id number] [place].plasma/Lit hium.RBC (Bld) [Mass ratio] 0-3 Normal 0-3 [facility] Comment on above: Performed By: #### 2 6478347, 34863202, 0154281 ####[place] [id number] Mucus Ql (Urine sed) 1+ Normal [facility] Comment on above: Performed By: #### 2 6952876, 50051817, 5111223 ####[address] [address] Nitrite Ql (U) Negative Normal Negative [facility] Comment on above: Performed By: #### 2 6044068, 66661599, 8634893 ####[address] [address] pH (U) 5.5 [pH] Invalid Interpretation Code 5.0-9.0 [facility] Comment on above: Performed By: #### 2 [id number], 06225228, 0203413 ####[address] [address] Protein (U) [Mass/Vol] Negative Normal Negative [facility] Comment on above: Performed By: #### 2 3383563, 76292832, 8476878 ####[address] [place] [address] Specific gravity (U) [Rel density] >=1.030 Invalid Interpretation Code 1.005-1.030 [facility] Comment on above: Performed By: #### 2 3116075, 15555945, 7165341 ####[address] [address] Type of Urine collection method Clean Catch Normal [facility] Comment on above: Performed By: #### 2 0154630, [id number] ####[facility] [id number] [place] [id number] Urobilinogen Qn (U) 0.2 {Elver'U}/dL Normal 0.0-1.0 [facility] Comment on above: Performed By: #### 2 [id number], [id number], [id number] ####[place] [id number] WBC Auto Ql (U) Negative Normal Negative [facility] Comment on above: Performed By: #### 2 [id number], [id number], [id number] ####[facility] [address] [place] [id number] WBC LM.HPF (Urine sed) [#/Area] 0-5 Normal 0-5 [facility] Comment on above: Performed By: #### 2 [id number], [id number], [id number] ####[place] [id number] XR WRIST LEFT (MIN 3 VIEWS)o n 06-19-2022 Normal left wrist. [facility] RIS CONSOLIDATED EXAM: XR WRIST LEFT (MIN 3 VIEWS) HISTORY: M25.532. 26-year-old female, left wrist pain. COMPARISON: None. TECHNIQUE: Three views left wrist. FINDINGS: The radiocarpal joint and wrist are normal. Normal scapholunate distance. No erosion or chondrocalcinosis. [facility] CONSOLID[facility] Mauro Anton Jr., MD - 06/19/2022 EXAM: XR WRIST LEFT (MIN 3 VIEWS) HISTORY: M25.532. 26-year-old female, left wrist pain. COMPARISON: None. TECHNIQUE: Three views left wrist. FINDINGS: The radiocarpal joint and wrist are normal. Normal scapholunate distance. No erosion or chondrocalcinosis. IMPRESSION: Normal left wrist. 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 pain has been constant for about 1 week now. History of Present Illness Pt presents today to [facility]. Previous pt of [facility] in [place]. Concerned today about left wrist pain which started about 1 yr ago; pain has worsened over the last week. 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 Carries everything in her left hand. Right handed. Pain location: medial martinez hand, radiating to wrist Pain description: shooting Pain rated: 2/10, 7/10 with certain movements. 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 Negative Tin[place] and [employer]. + Phal[employer]. Human Resources Admin strength equal. Neurologic: Cranial nerves II-XII grossly intact. Skin: [place], warm and dry. No rashes, ulcerations, or [...] day(s), # 30 tab(s), Refills(s) 1, Pharmacy: [facility], 170, cm, 06/01/22 12:55:00 EDT, Height/Length Dosing, 91.3, kg, 06/01/22 12:55:00 EDT, Weight Dosing [facility] External Ambulatory Referral 2. BMI 31.0-31.9,adult (Z68.31: Body mass index [BMI] 31.0-31.9, adult) The standard range for ages 18 and older is >=18.5 and < 25 kg/m2. Your BMI today was above this range, this falls in the obese category and there are medical benefits to weight loss. We can offer counselling, referral, and/or medical support in addressing this problem. Visit [employer] for useful information to help make better [...] fo (more content not included)... Normal [facility] Comment on above: Result Comment: Elec tronically [...] height. This can be done either in [place] ([place].S.) or metric measurements. Note that charts are available to help you find your BMI quickly and easily without having to do these calculations yourself. To calculate your BMI in Czech ([place].S.) measurements, your health care provider will: [...] problems. ? BMI can be measured using Czech measurements or metric measurements. ? To interpret [...] 07/20/2005 Document Revised: 10/21/2018 Document Reviewed: 09/21/2018 [employer] Patient Education ? 2020 Integrated Medical Management. Orthopedics Carpal Tunnel Syndrome Carpal tunnel syndrome [...] Having a job, such as being a software verification engineer or a cashier manager, that requires you to repeatedly move your [...] midd (more content not included)... Normal [facility] Physician Referralon 022 Physician Referral [id number] #[id number] Normal [facility] Vital Signs Date Time Vital Sign Value Performing Clinician Faci lity 12-19-2024 10:19-0500 Body mass index (BMI) [Ratio] 37.44 kg/m2 Gary Enriqueta DO Work Phone: [facility] 12-19-2024 10:19-0500 Body weight 102.06 kg Gary Enriqueta DO Work Phone: [facility] 12-19-2024 10:19-0500 Diastolic blood pressure 76 mm[Hg] Gary Enriqueta DO Work Phone: [facility] 12-19-2024 10:19-0500 Systolic blood pressure 122 mm[Hg] Gary Enriqueta DO Work Phone: [facility] 11-20-2024 09:42-0500 Body mass index (BMI) [Ratio] 36.61 kg/m2 Genevieve MARIA Work Phone: [facility] 11-20-2024 09:42-0500 Body weight 99.79 kg Genevieve MARIA Work Phone: [facility] 11-20-2024 09:42-0500 Diastolic blood pressure 74 mm[Hg] Genevieve MARIA Work Phone: [facility] 11-20-2024 09:42-0500 Systolic blood pressure 120 mm[Hg] Genevieve MARIA Work Phone: [facility] 10-17-2024 13:10-0500 Body mass index (BMI) [Ratio] 35.35 kg/m2 Gary Enriqueta DO Work Phone: [facility] 10-17-2024 13:10-0500 Body weight 96.34 kg Gary Enriqueta DO Work Phone: [facility] 10-17-2024 13:10-0500 Diastolic blood pressure 70 mm[Hg] Gary Enriqueta DO Work Phone: [facility] 10-17-2024 13:10-0500 Systolic blood pressure 120 mm[Hg] Gary Enriqueta DO Work Phone: [facility] 09-18-2024 11:15-0400 Body mass index (BMI) [Ratio] 35.2 kg/m2 Gary Enriqueta DO Work Phone: [facility] 09-18-2024 11:15-0400 Body weight 95.94 kg Gary Enriqueta DO Work Phone: [facility] 09-18-2024 11:15-0400 Diastolic blood pressure 74 mm[Hg] Gary Enriqueta DO Work Phone: [facility] 09-18-2024 11:15-0400 Systolic blood pressure 122 mm[Hg] Gary Enriqueta DO Work Phone: [facility] 08-18-2024 10:28-0400 Body mass index (BMI) [Ratio] 34.95 kg/m2 [facility] Nurse [facility] 08-18-2024 10:28-0400 Body weight 95.25 kg [facility] Nurse [facility] 01-10-2023 14:29-0500 Body height 165.1 cm Fei Canales MD Work Phone: Maintenance Assistant [facility] [employer] 01-10-2023 14:29-0500 Body mass index (BMI) [Ratio] 34.35 kg/m2 Fei Canales MD Work Phone: [employer] 01-10-2023 14:29-0500 Body temperature 98.49 [degF] Fei Canales MD Work Phone: Maintenance Assistant [facility] [employer] 01-10-2023 14:29-0500 Body weight 93.62 kg Fei Canales MD Work Phone: Maintenance Assistant [facility] [employer] 01-10-2023 14:29-0500 Diastolic blood pressure 79 mm[Hg] Fei Canales MD Work Phone: Maintenance Assistant [facility] 01-10-2023 14:29-0500 Heart rate 75 /min Fei Canales MD Work Phone: [facility] 01-10-2023 14:29-0500 Respiratory rate 16 /min Fei Canales MD Work Phone: [facility] 01-10-2023 14:29-0500 SaO2% (BldA) [Mass fraction] 99 % Fei Canales MD Work Phone: [facility] 01-10-2023 14:29-0500 Systolic blood pressure 140 mm[Hg] Fei Canales MD Work Phone: [facility] [employer] 12-08-2022 11:51-0500 Blood Pressure Location Keyon BROWN [facility] 12-08-2022 11:51-0500 Body temperature 98.24 [degF] Keyon BROWN [facility] 12-08-2022 11:51-0500 Diastolic blood pressure 78 mm[Hg] Christopher BROWN [facility] 12-08-2022 11:51-0500 Heart rate 84 /min Keyon BROWN [facility] 12-08-2022 11:51-0500 Respiratory rate 16 /min Garfieldsarah BROWN [facility] 12-08-2022 11:51-0500 SaO2% (BldA) [Mass fraction] 100 % Christsherieer BROWN [facility] 12-08-2022 11:51-0500 Systolic blood pressure 114 mm[Hg] Christopher BROWN [facility] 12-04-2022 16:32-0500 Body mass index (BMI) [Ratio] 33.66 kg/m2 Jason Tracy MD Work Phone: [facility] 12-04-2022 16:32-0500 Body temperature 98.49 [degF] Jason Tracy MD Work Phone: [facility] 12-04-2022 16:32-0500 Body weight 91.76 kg Jason Tracy MD Work Phone: [facility] 12-04-2022 16:32-0500 Diastolic blood pressure 75 mm[Hg] Jason Tracy MD Work Phone: [facility] 12-04-2022 16:32-0500 Heart rate 91 /min Jason Tracy MD Work Phone: [facility] 12-04-2022 16:32-0500 Respiratory rate 16 /min Jason Tracy MD Work Phone: [email or web address] 12-04-2022 16:32-0500 SaO2% (BldA) [Mass fraction] 99 % Jason Tracy MD Work Phone: [email or web address] 12-04-2022 16:32-0500 Systolic blood pressure 123 mm[Hg] Jason Tracy MD Work Phone: [facility] 06-01-2022 12:50-0400 Blood Pressure Location Meena Siddhartha [facility] 06-01-2022 12:50-0400 Body temperature 96.98 [degF] Meena Siddhartha [facility] 06-01-2022 12:50-0400 Diastolic blood pressure 60 mm[Hg] Meena Carl [facility] 07-11-2022 12:50-0400 Heart rate 88 /min Meena Carl [facility] 06-01-2022 12:50-0400 SaO2% (BldA) [Mass fraction] 97 % Meena Carl [facility] 06-01-2022 12:50-0400 Systolic blood pressure 122 mm[Hg] Meena Carl [facility] 09-14-2021 10:15-0400 Body mass index (BMI) [Ratio] 31.62 kg/m2 Keyon Wilkinson MD Work Phone: [employer] Work Phone: 09-14-2021 10:15-0400 Body weight 86.18 kg Keyon Wilkinson MD Work Phone: [employer] Work Phone: 09-14-2021 10:14-0400 Body height 165.1 cm Keyon Wilkinson MD Work Phone: [employer] Work Phone: 09-14-2021 10:14-0400 Body temperature 98.2 [degF] Keyon Wilkinson MD Work Phone: [employer] Work Phone: 09-14-2021 10:14-0400 Diastolic blood pressure 93 mm[Hg] Keyon Wilkinson MD Work Phone: [employer] Work Phone: 09-14-2021 10:14-0400 Heart rate 91 /min Keyon Wilkinson MD Work Phone: [employer] Work Phone: 09-14-2021 10:14-0400 Respiratory rate 20 /min Keyon Wilkinson MD Work Phone: [employer] Work Phone: 09-14-2021 10:14-0400 SaO2% (BldA) [Mass fraction] 96 % Keyon Wilkinson MD Work Phone: [employer] Phone: 09-14-2021 10:14-0400 Systolic blood pressure 131 mm[Hg] Keyno Wilkinson MD Work Phone: [employer] Work Phone: Encounters Encounter Date Encounter Type Care Provider Facility Start: 12-22-2024 End: 12-22-2024 ambulatory [facility] Start: 12-22-2024 End: 12-22-2024 Subsequent hospital visit by physician John Partida DO Work Phone: [facility] Comment on above: Arrived Start: 12-20-2024 End: 12-20-2024 ambulatory DWIGHT Sarkis [facility] Start: 12-20-2024 End: 12-20-2024 Subsequent hospital visit by physician John Partida DO Work Phone: [facility] Comment on above: Arrived Start: 12-19-2024 End: 12-19-2024 Clinisync Result Encounter Genevieve MARIA Work Phone: [facility] Unsolicited Start: 12-19-2024 End: 12-19-2024 Clinisync Result Encounter Genevieve MARIA Work Phone: [facility] Unsolicited Start: 12-19-2024 End: 12-19-2024 Office outpatient visit 15 minutes Gary Enriqueta DO Work Phone: [facility] Comment on above: Second trimester pre gnancy; 24 weeks gestation of ; Diabetes mellitus screening; Low platelet count (CMS/HCC); Thrombocytopenia affecting , antepartum (CMS/HCC); 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] encounter status Gary Barcenaso DO Work Phone: [facility] Start: 10-12-2024 End: 10-12-2024 [facility] Start: 10-12-2024 End: 10-12-2024 Subsequent hospital visit by physician John Ruiz Phone: [facility] Comment on above: Arrived Start: 10-10-2024 End: 10-10-2024 [facility] Start: 10-10-2024 End: 10-10-2024 Subsequent hospital visit by physician John Ruiz Phone: [facility] Comment on above: Arrived Start: 10-04-2024 End: 10-04-2024 Subsequent hospital visit by physician John Partida DO Work Phone: [facility] Start: 10-04-2024 [facility] Start: 09-18-2024 End: 09-18-2024 Office [...] Department Unsolicited Start: 08-07-2024 End: 08-07-2024 ambulatory GARYMariya AGUILAR [facility] Start: 08-07-2024 End: 08-07-2024 Subsequent hospital visit by physician Óscar Villagran [facility] Work Phone: [facility] Start: 08-02-2024 End: 08-02-2024 Clinisync Result Encounter Gary Enriqueta DO Work Phone: [facility] External [facility] Unsolicited Start: 08-02-2024 End: 08-02-2024 Clinisync Result Encounter Gary Enriqueta DO Work Phone: [facility] External [facility] Unsolicited Start: 08-02-2024 End: 08-02-2024 ambulatory [facility] Josh [facility] Start: 07-31-2024 End: 07-31-2024 Clinisync Result Encounter Gary Enriqueta DO Work Phone: [facility] External [facility] Unsolicited Start: 07-31-2024 End: 07-31-2024 Clinisync Result Encounter Gary Enriqueta DO Work Phone: [facility] External [facility] Unsolicited Start: 07-31-2024 End: 07-31-2024 ambulatory [facility] Start: 07-31-2024 End: 07-31-2024 Subsequent hospital visit by physician Óscar Villagran DNP Work Phone: [facility] Start: 07-29-2024 End: 07-29-2024 Clinisync Result Encounter Gary Enriqueta DO Work Phone: [facility] External [facility] Unsolicited Start: 07-29-2024 End: 07-29-2024 Clinisync Result Encounter Gary Enriqueta DO Work Phone: [facility] Unsolicited Start: 07-29-2024 End: 07-29-2024 ambulatory SÓCARSCARLETT VILLAGRAN [facility] Start: 07-27-2024 End: 07-27-2024 Clinisync Result Encounter Gary Enriqueta DO Work Phone: [facility] Unsolicited Start: 07-27-2024 End: 07-27-2024 Clinisync Result Encounter Gary Enriqueta DO Work Phone: [facility] Unsolicited Start: 07-27-2024 End: 07-27-2024 ambulatory ÓSCAR VILLAGRAN [facility] Start: 07-27-2024 End: 07-27-2024 Subsequent hospital visit by physician John Partida DO Work Phone: [facility] Comment on above: Arrived Start: 07-25-2024 End: 07-25-2024 [facility] Start: 07-21-2024 End: 07-21-2024 ambulatory [facility] Start: 07-19-2024 End: 07-19-2024 [facility] Start: 07-13-2024 End: 07-13-2024 Subsequent hospital visit by physician John Partida DO Work Phone: [facility] Comment on above: Arrived Start: 07-13-2024 End: 07-13-2024 [facility] Start: 07-06-2024 End: 07-06-2024 Subsequent hospital visit by physician John Partida DO Work Phone: [facility] Start: 06-29-2024 End: 06-29-2024 ambulatory [facility] Start: 06-29-2024 End: 06-29-2024 Subsequent hospital visit by physician John Partida DO Work Phone: [facility] Comment on above: Arrived Start: 06-26-2024 End: 06-26-2024 ambulatory [facility] Start: 06-22-2024 End: 06-22-2024 ambulatory [facility] Start: 06-20-2024 End: 06-20-2024 [facility] Start: 06-16-2024 End: 06-16-2024 [facility] Start: 06-14-2024 End: 06-14-2024 ambulatory [facility] Start: 06-08-2024 End: 06-08-2024 ambulatory [facility] Start: 06-08-2024 End: 06-08-2024 ambulatory [facility] Start: 05-22-2024 End: 05-24-2024 [facility] Start: 05-22-2024 End: 05-24-2024 Subsequent hospital visit by physician Óscar Villagran DNP Work Phone: [facility] Start: 03-06-2024 End: 03-06-2024 ambulatory GARY ROBISON Not Available Start: 03-04-2024 End: 03-04-[address] [facility] Start: 03-04-2024 Emergency department patient visit [facility] Start: 04-09-[address] NONE LISTED REQUEST Facility: Start: 01-29-2023 End: 01-31-2023 Subsequent hospital visit by physician Neeru Additional Xray At [facility] Comment on above: Other closed fractur e of proximal end of right fibula with routine healing, subsequent encounter Start: 01-29-2023 End: 01-31-2023 Subsequent hospital visit by physician Keyon Brown MD Work Phone: [facility] Start: 01-10-2023 End: 01-10-2023 Emergency department patient visit Fei Canales MD Work Phone: [facility] ED Comment on above: Injury of right ankl e, initial encounter (Primary Dx) Start: 12-08-2022 End: 12-09-2022 ambulatory Keyon BROWN Facility:[facility] Start: 12-08-2022 End: 12-08-2022 Patient encounter procedure Keyon BROWN [facility] Start: 12-04-2022 End: 12-04-2022 Emergency department patient visit Jason Tracy MD Work Phone: [facility] ED Comment on above: Viral illness (Prima ry Dx) Start: 09-03-2022 End: 09-03-2022 Emergency department patient visit Evan Moyer Facility:[facility] Start: 06-19-2022 End: 06-21-2022 Subsequent hospital visit by physician Neeru Additional Xray At [facility] Comment on above: Left wrist pain Start: 06-01-2022 End: 06-02-2022 ambulatory ANTHONY Carl Facility:[facility] Start: 06-01-2022 End: 06-01-2022 Patient encounter procedure Meena Carl [facility] Start: 05-28-2022 ambulatory ANTHONY Carl Faci lity:[facility] Start: 09-14-2021 End: 09-14-2021 Emergency department patient visit Keyon Wilkinson MD Work Phone: [facility] ED Comment on above: Subacute bronchitis (Primary Dx) Procedures Date Procedure Procedure Detail Performing Clinician Start: 12-19-2024 Urnls dip stick/tabl et rgnt non-auto w/o micrscp Gary Enriqueta DO Work Phone: Start: 12-19-2024 ALL CBC WITH AUTO DIFF Genevieve MARIA Work Phone: Start: 11-20-2024 Urnls dip stick/tabl et rgnt non-auto w/o micrscp Genevieve MARIA Work Phone: Start: 10-17-2024 Urnls dip stick/tabl et rgnt non-auto w/o micrscp Gary Enriqueta DO Work Phone: Start: 10-17-2024 RECURRENT VAGINITIS (HTRX) Gary Enriqueta DO Work Phone: Start: 10-17-2024 IGP,APTIMA HPV,AGE GDLN Gary Enriqueta DO Work Phone: Start: 10-17-2024 Microscopic observat ion [Identifier] in Cervix by Cyto stain Genevieve MARIA Work Phone: Start: 09-18-2024 Urnls dip stick/tabl et rgnt non-auto w/o micrscp Gary Enriqueta DO Work Phone: Start: 09-11-2024 BOX TEST Gary Fazi o DO Work Phone: Start: 08-18-2024 End: 08-18-2024 Urnls dip stick/tablet rgnt non-auto w/o micrscp Gary Enriqueta DO Work Phone: Start: 08-07-2024 ALL HCG, QUANTITATIVE C orey Enriqueta DO Work Phone: Start: 08-07-2024 Gonadotropin chorion ic quantitative Gary Keo Robison MD Work Phone: Start: 08-02-2024 ALL [...] 60 yrs+ (1 - 1-dose 75+ series) [facility] Start: 2054 Respiratory Syncytia l Virus (RSV) or age 60 yrs+ (1 - 1-dose 60+ series) Respiratory Syncytial Virus (RSV) or age 60 yrs+ (1 - 1-dose 60+ series) [facility] [employer] Start: 05-26-2028 Screening for malign ant neoplasm of cervix HPV/Cotest [facility] Start: 10-17-2027 Screening for malign ant neoplasm of cervix [facility] Start: 03-14-2025 Depression Screen Depression Screen [facility] Start: 01-16-2025 End: 01-16-2025 Patient encounter procedure 01/16/2025 8:40 AM EST Routine [facility] [address] [place] [id number] Gary Robison DO [address] [place] [address] [facility] Start: 01-16-2025 End: 01-16-2025 Professional / ancillary services management 01/16/2025 8:00 AM EST Ancillary Procedure [facility] [address] [place] [id number] [facility] Start: 12-29-2024 End: 12-29-2024 Patient encounter procedure 12/29/2024 11:15 AM EST Appointment [facility] [address] [place] [address] John Partida, DO [address] [place] [address] Clara Castrejon, PT *[employer] 7 of 30 Sacral Pain, [facility] Comment on above: *[employer] 7 of 30 Sacral Pain, Start: 12-27-2024 End: 12-27-2024 Patient encounter procedure 12/27/2024 9:00 AM EST Appointment [facility] [address] [place] [address] John Partida, DO [address] [place] [address] Austen Puga PTA *[employer] 6 of 30 Sacral Pain, [facility] Comment on above: *[employer] 6 of 30 Sacral Pain, Start: 12-27-2024 ambulatory Ambulatory [facility] Start: 12-22-2024 End: 12-22-2024 Patient encounter procedure 12/22/2024 8:00 AM EST Appointment [facility] [address] [place] [address] John Partida, DO [address] [place] [address] Austen Puga PTA *[employer] 5 of 30 Sacral Pain, [facility] Comment on above: *[employer] 5 of 30 Sacral Pain, Start: 12-20-2024 End: 12-20-2024 Patient encounter procedure 12/20/2024 9:00 AM EST Appointment [facility] [address] [place] [address] John Partida, DO [address] [place] [place] [address] Clara Castrejon, PT *[employer] 4 of 30 Sacral Pain, [facility] Comment on above: *[employer] 4 of 30 Sacral Pain, Start: 12-19-2024 End: 12-19-2024 Patient encounter procedure 12/19/2024 9:50 AM EST Routine [facility] [address] [place] [id number] Gary Robison, DO [address] [place] [address] [facility] Start: 12-15-2024 End: 12-15-2024 Patient encounter procedure 12/15/2024 8:15 AM EST Appointment [facility] [address] [place] [address] John Partida, DO [address] [place] [place] [address] Clara Castrejon, PT *[employer] 3 of 30 Sacral Pain, [facility] Comment on above: *[employer] 3 of 30 Sacral Pain, Start: 12-13-2024 End: 12-13-2024 Patient encounter procedure 12/13/2024 9:45 AM EST Appointment [facility] [address] [place] [address] John Partida, DO [address] [place] [address] Trinity Browning *[employer] 2 of 30 Sacral Pain, [facility] Comment on above: *[employer] 2 of 30 Sacral Pain, Start: 2024 Screening for malign ant neoplasm of cervix [facility] Start: 11-20-2024 End: 11-20-2025 CBC panel - Blood by Automated count CBC Lab Routine Diabetes mellitus screening Expected: 11/20/2024 (Approximate), Expires: 11/20/2025 [facility] Work Phone: Comment on above: Expected: 11/20/2024 (Approximate), Expires: 11/20/2025 Start: 11-20-2024 End: 11-20-2025 Measurement of glucose 1 hour after glucose challenge for glucose tolerance test Glucose tolerance, 1 hour Lab Routine Diabetes mellitus screening Expected: 11/20/2024 (Approximate), Expires: 11/20/2025 [facility] Comment on above: Expected: 11/20/2024 (Approximate), Expires: 11/20/2025 Start: 11-20-2024 End: 11-20-2024 Patient encounter procedure 11/20/2024 9:20 AM EST Routine [facility] [address] [place] [address] Genevieve Pinto PA [address] [place] [address] [facility] Start: 11-20-2024 End: 11-20-2024 Professional / ancillary services management 11/20/2024 8:00 AM EST Ancillary Procedure [facility] [address] [place] [address] [facility] Start: 10-17-2024 End: 01-17-2025 Alpha fetoprotein, maternal Alpha fetoprotein, maternal Lab Routine 15 weeks gestation of Expected: 10/17/2024 (Approximate), Expires: 01/17/2025 [facility] Work Phone: Comment on above: Expected: 10/17/2024 (Approximate), Expires: 01/17/2025 Start: 10-17-2024 End: 10-17-2025 US for US OB ANATOMY SINGLE W US OB CERVICAL LENGTH Imaging Routine Screening, , for anatomic survey 15 weeks gestation of Expected: 10/17/2024 (Approximate), Expires: 10/17/2025 [facility] Comment on above: Expected: 10/17/2024 (Approximate), Expires: 10/17/2025 Start: 10-17-2024 End: 10-17-2024 Patient encounter procedure 10/17/2024 10:50 AM EST Routine [facility] OB [address] [place] [id number] Gary Robison DO [address] [place] [place] [address] [facility] OB Start: 10-17-2024 End: 10-17-2024 Patient encounter procedure 10/17/2024 8:15 AM EST Appointment [facility] [address] [place] [address] John Partida, DO [address] [place] [address] Trinity Browning 16 of 30 Sacral Pain, [facility] Comment on above: 16 of 30 Sacral Pain , Start: 10-12-2024 End: 10-12-2024 Patient encounter procedure 10/12/2024 8:00 AM EST Appointment [facility] [address] [place] [address] John Partida, DO [address] [place] [address] Clara Castrejon, PT 15 of 30 Sacral Pain, [facility] Comment on above: 15 of 30 Sacral Pain , Start: 10-10-2024 End: 10-10-2024 Patient encounter procedure 10/10/2024 9:30 AM EST Appointment [facility] [address] [place] [address] John Partida, DO [address] [place] [address] Clara Castrejon, PT 14 of 30 Sacral Pain, [facility] Comment on above: 14 of 30 Sacral Pain , Start: 09-18-2024 End: 09-18-2024 Patient encounter procedure 09/18/2024 10:40 AM EDT Routine [facility] [address] [place] [id number] Gary Robison [address] [place] [address] [facility] Start: 08-18-2024 End: 08-18-2025 ABO/Rh ABO/Rh Lab Routine Missed menses , unspecified gestational age Expected: 08/18/2024 (Approximate), Expires: 08/18/2025 [facility] Comment on above: Expected: 08/18/2024 (Approximate), [...] first trimester Expected: 08/18/2024 (Approximate), Expires: 08/18/2025 [facility] Healthcare Comment on above: Expected: 08/18/2024 (Approximate), Expires: 08/18/2025 Start: 08-18-2024 End: 08-18-2025 US Pelvis transvaginal US OB transvaginal Imaging Routine Missed menses Expected: 08/18/2024 (Approximate), Expires: 08/18/2025 [facility] Healthcare Comment on above: Expected: 08/18/2024 (Approximate), Expires: 08/18/2025 Start: 08-18-2024 End: 08-18-2024 ambulatory 08/18/2024 9:30 AM EDT Initial [facility] [address] [place] [address] [facility] Start: 08-18-2024 End: 08-18-2024 Professional / ancillary services management 08/18/2024 9:00 AM EDT Ancillary Procedure [facility] [address] [place] [address] [facility] Start: 07-23-2024 COVID-19 Vaccine ( season) COVID-19 Vaccine ( season) [facility] Start: 07-23-2024 Influenza vaccination Influenza Vacc ine (#1) [facility] Start: 07-19-2024 End: 07-19-2024 Patient encounter procedure 07/19/2024 8:00 AM EDT Appointment [facility] [address] [place] [id number] John Partida, DO [address] [place] [id number] Asia Mix, PT [address] [place] [id number] [facility] Start: 07-13-2024 End: 07-13-2024 Patient encounter procedure [facility] Start: 07-06-2024 End: 07-06-2024 Patient encounter procedure 07/06/2024 9:00 AM EDT Appointment [facility] [address] [place] [address] John Partida, DO [address] [place] [address] Saw Asia, PT [address] [place] [address] [facility] Start: 06-22-2024 Influenza vaccination Flu vaccine (# 1) [facility] Start: 07-23-2023 COVID-19 Vaccine ( season) COVID-19 Vaccine ( season) [facility] Start: 07-23-2022 Influenza vaccination Flu vaccine (# 1) [facility] Start: 06-22-2022 Influenza vaccination Flu vaccine (# 1) [facility] Start: 07-23-2021 Influenza vaccination Flu vaccine (# 1) [facility] Start: 08-02-2017 DTaP/Tdap/Td vaccine (2 - Td or Tdap) DTaP/Tdap/Td vaccine (2 - Td or Tdap) [facility] Start: 2015 Screening for malign ant neoplasm of cervix Pap smear [facility] Start: 2013 DTaP/Tdap/Td vaccine (1 - Tdap) DTaP/Tdap/Td vaccine (1 - Tdap) [facility] Start: 2013 Hepatitis B vaccine (1 of 3 - 19+ 3-dose series) Hepatitis B vaccine (1 of 3 - 19+ 3-dose series) [facility] Start: 2012 Hepatitis C screening Hepatitis C sc reen [facility] Start: 2009 HIV screening HIV screen [facility] Start: 2006 COVID-19 Vaccine (1) COVID-19 Vaccin e (1) [employer] Phone: Start: 2006 Depression Screen Depression Screen [facility] Start: 2005 HPV vaccine (1 - 2-d ose series) HPV vaccine (1 - 2-dose series) [employer] Phone: Start: 1998 Varicella vaccine (2 of 2 - 2-dose childhood series) Varicella vaccine (2 of 2 - 2-dose childhood series) [facility] Start: 1995 Varicella vaccine (1 of 2 - 2-dose childhood series) Varicella vaccine (1 of 2 - 2-dose childhood series) [employer] Phone: Start: 05-30-1995 COVID-19 Vaccine (#1) COVID-19 Vacci ne (#1) [facility] Start: 1994 Hepatitis B vaccine (1 of 3 - 3-dose series) Hepatitis B vaccine (1 of 3 - 3-dose series) [facility] Start: 1994 Hepatitis C screening Hepatitis C sc [facility] [employer] Phone: Bacteria identified in Urine by Culture Urine culture Microbiology Routine Missed menses Ordered: 08/18/2024 [facility] Comment on above: Ordered: 08/18/2024 CBC W Auto Different ial panel - Blood CBC and differential Lab Routine Missed menses , unspecified gestational age Ordered: 08/18/2024 [facility] Comment on above: Ordered: 08/18/2024 CHLAMYDIA TRACHOMATI S (GENITO/STI) CHLAMYDIA TRACHOMATIS (GENITO/STI) Lab Routine Vaginal discharge STD exposure Ordered: 10/17/2024 [facility] Comment on above: Ordered: 10/17/2024 Cytology Cervical or vaginal smear or scraping study Pap Smear Pathology and Cytology Routine Encounter for gynecological examination without abnormal finding Ordered: 10/17/2024 [facility] Comment on above: Ordered: 10/17/2024 Hemoglobin A1c/Hemoglobin.total in Blood Hemoglobin A1c Lab Routine Missed menses , unspecified gestational age Ordered: 08/18/2024 [facility] Comment on above: Ordered: 08/18/2024 Hepatitis B virus surface Ag [Presence] in Serum or Plasma by Immunoassay Hepatitis B surface antigen Lab Routine Missed menses , unspecified gestational age Ordered: 08/18/2024 [facility] Comment on above: Ordered: 08/18/2024 Hepatitis C virus Ab [Presence] in Serum or Plasma by Immunoassay Hepatitis C antibody Lab Routine Missed menses , unspecified gestational age Ordered: 08/18/2024 [facility] Comment on above: Ordered: 08/18/2024 HIV-1/HIV-2 antigen/antibody combination immunoassay HIV-1 and HIV-2 antibodies Lab Routine Missed menses , unspecified gestational age Ordered: 08/18/2024 [facility] Comment on above: Ordered: 08/18/2024 Neisseria gonorrhoea e DNA [Presence] in Unspecified specimen by WADE with probe detection Neisseria gonorrhea DNA probe, direct Lab Routine Vaginal discharge STD exposure Ordered: 10/17/2024 [facility] Comment on above: Ordered: 10/17/2024 Platelets [#/volume] in Blood Platelet count Lab Routine Low platelet count (CMS/HCC) Ordered: 12/19/2024 [facility] Work Phone: Comment on above: Ordered: 12/19/2024 Reagin Ab [Presence] in Serum by RPR RPR Lab Routine Missed menses , unspecified gestational age Ordered: 08/18/2024 [facility] Comment on above: Ordered: 08/18/2024 Rubella antibody, IgG Rubella an tibody, IgG Lab Routine Missed menses , unspecified gestational age Ordered: 08/18/2024 [facility] Comment on above: Ordered: 08/18/2024 SURESWAB(R) ADVANCED VAGINITIS PLUS, TMA SURESWAB(R) ADVANCED VAGINITIS PLUS, TMA Pathology and Cytology Routine Vaginal discharge STD exposure Ordered: 10/17/2024 [facility] Comment on above: Ordered: 10/17/2024 Immunizations Immunization Date Immunization Notes Care Provider Jaci masterson 02-16-2008 Hep A, unspecified formulation Meena Carl [facility] 08-02-2007 Hep A, unspecified formulation Meena Carl [facility] 08-02-2007 meningococcal ACWY vaccine, unspecified formulation Meena Carl [facility] 08-02-2007 tetanus toxoid, reduced diphtheria toxoid, and acellular pertussis vaccine, adsorbed Meena Carl [facility] 08-19-2000 DTaP, unspecified formulation Meena Carl [facility] 08-19-2000 measles, mumps and rubella virus vaccine Meena Carl [facility] 10-10-1997 varicella virus vaccine Meena Carl [facility] 03-09-1996 DTaP, unspecified formulation Meena Carl [facility] 03-09-1996 Hib, unspecified formulation Meena Carl [facility] 03-09-1996 measles, mumps and rubella virus vaccine Meena Carl [facility] 06-11-1995 DTP-Hib Meena Carl [facility] 06-11-1995 hepatitis B vaccine, pediatric or pediatric/adolescent dosage Meena Carl [facility] 04-05-1995 DTP-Hib Meena Aguilarell [facility] 02-01-1995 DTP-Hib Meena Carl [facility] 01-04-1995 hepatitis B vaccine, pediatric or pediatric/adolescent dosage Meena Carl [facility] 1994 hepatitis B vaccine, pediatric or pediatric/adolescent dosage Meena Carl [facility] NEGATED: Highlighted row has not occurred!12-08-2022 influenza virus vaccine, unspecified formulation Keyon SUSAN [facility] NEGATED: Highlighted row has not occurred!12-08-2022 SARS-CoV-2 mRNA (tozinameran 5y-11y) vaccine Cordellorin SUSAN [facility] Payers Date Payer Category Payer Medicaid [employer] [place] [id number] 2022-Present [address] [place] [id number] 2022 Private Health Insurance [facility] MEDICA[facility] [id number] 2014 Unknown [id number] 1.2.840.590597.1.13.239.2. 7.3.745170.315 1994 Unknown [id number] 2.16.840.1.094578.3.579.2. 727 1994 Unknown [id number] 2.16.840.1.859250.3.579.2. 727 1994 Unknown [id number] 2.16.840.1.320922.3.579.2. 727 1994 Unknown [id number] 2.16.840.1.954529.3.579.2. 727 1994 Unknown [id number] 2.16.840.1.943049.3.579.2. 593 1994 Unknown [id number] 2.16.840.1.712585.3.579.2. 1259 1994 Unknown [id number] 2.16.840.1.543365.3.579.2. 1259 1994 Unknown [id number] 2.16.840.1.221417.3.579.2. 1259 1994 Unknown [id number] 2.16.840.1.697968.3.579.2. 1259 1994 Unknown [id number] 2.16.840.1.594958.3.579.2. 1259 1994 Unknown [id number] 2.16.840.1.356058.3.579.2. 174 1994 Unknown [id number] 2.16.840.1.665404.3.579.2. 174 1994 Unknown [id number] 2.16.840.1.728122.3.579.2. 174 1994 Unknown [id number] 2.16.840.1.546183.3.579.2. 174 1994 Unknown [id number] 2.16.840.1.995952.3.579.2. 174 1994 Unknown [id number] 2.16.840.1.439009.3.579.2. 174 1994 Unknown [id number] 2.16.840.1.867774.3.579.2. 174 1994 Unknown [id number] 2.16.840.1.056086.3.579.2. 174 1994 Unknown [id number] 2.16.840.1.412884.3.579.2. 174 1994 Unknown [id number] 2.16.840.1.712393.3.579.2. 174 1994 Unknown [id number] 2.16.840.1.322763.3.579.2. 174 1994 Unknown [id number] 2.16.840.1.428168.3.579.2. 174 1994 Unknown [id number] 2.16.840.1.025366.3.579.2. 174 1994 Unknown [id number] 2.16.840.1.604890.3.579.2. 174 1994 Unknown [id number] 2.16.840.1.964918.3.579.2. 174 1994 Unknown [id number] 2.16.840.1.361898.3.579.2. 174 1994 Unknown [id number] 2.16.840.1.495033.3.579.2. 174 1994 Unknown [id number] 2.16.840.1.644377.3.579.2. 174 1994 Unknown [id number] 2.16.840.1.589026.3.579.2. 174 1994 Unknown [id number] 2.16.840.1.157874.3.579.2. 174 1994 Unknown [id number] 2.16.840.1.190953.3.579.2. 174 1994 Unknown [id number] 2.16.840.1.905523.3.579.2. 174 1994 Unknown [id number] 2.16.840.1.209623.3.579.2. 174 1994 Unknown [id number] 2.16.840.1.186991.3.579.2. 174 1994 Unknown [id number] 2.16.840.1.414501.3.579.2. 174 1994 Unknown [id number] 2.16.840.1.591823.3.579.2. 174 1994 Unknown [id number] 2.16.840.1.369006.3.579.2. 174 1994 Unknown [id number] 2.16.840.1.842615.3.579.2. 174 1994 Unknown [id number] 2.16.840.1.401027.3.579.2. 174 1994 Unknown [id number] 2.16.840.1.508796.3.579.2. 174 1994 Unknown [id number] 2.16.840.1.472341.3.579.2. 174 1994 Unknown [id number] 2.16.840.1.962662.3.579.2. 174 1994 Unknown [id number] 2.16.840.1.979088.3.579.2. 174 1959 Unknown [id number] 1.2.840.302359.1.13.239.2. 7.3.268461.315 Social History Date Type Detail Facility Start: 09-14-2021 End: 03-14-2024 Tobacco smoking status MIIS Never smoker [employer] Phone: Start: 09-14-2021 End: 03-14-2024 Tobacco use and exposure Never used [facility] Start: 09-14-2021 End: 08-21-2024 Alcohol intake Current non-drinker of alcohol (finding) [facility] Work Phone: Start: 1995 Sex Assigned At Not on file [employer] Work Phone: Start: 11-24-2022 End: 01-10-2023 Exposure to SARS-CoV-2 (event) Not sure [facility] Tobacco smoking status Never [facility] Start: 07-19-2023 End: 03-14-2024 Sex Assigned At Female [facility] Start: 12-04-2022 End: 01-10-2023 History SDOH Alcohol Frequency 1 [employer] Work Phone: Start: 07-19-2023 End: 03-14-2024 History of Social function Instant Information How often to you hav e a drink containing alcohol? Never Instant Information (I/We) worried artemio smith (my/our) food would run out before (I/we) got money to buy more. Never true Instant Information At any time in the p ast 12 months, were you homeless or living in [facility] [including now]? No [employer] Start: 1995 Sex Assigned At Female [employer] Start: 07-19-2023 Gender identity Identifies as female gender (finding) [employer] Start: 07-19-2023 Sexual orientation Heterosexual (finding) [employer] Start: 07-16-2024 [facility] Start: 09-18-2024 Alcoholic beverage intake Lifetime non-drinker (finding) [facility] Functional Status Date Assessment Result Facility 12-08-2022 Functional Status N/A [facility] 06-01-2022 Functional Status N/A [facility] Clinical Notes 06-01-2022 to 12-22-2024 Austen Puga, CLIENT DEVELOPMENT DIRECTOR - 12/22/2024 8:00 AM Clara aWhl PT - 12/20/2024 9:00 AM Lalo Olea LPN - 12/19/2024 9:50 AM Austen Jones PTA - 12/13/2024 9:45 AM Sera Instructions Note Date & Type Note Facility 12-22-2024 History of Present illness Narrative Images from the original note were not included. [facility] Daily Note Date: 12/22/2024 Patient Name: Meena Lucero : 1995 (29 y.o.) Referring Provider (secondary): Dr. Partida Diagnosis: R buttock pain, sacral pain Treatment Diagnosis: back pain, SI pain Onset Date: 09/28/24 (Referral) PT [facility] Total # of Visits Approved: 16 Per Physician Order Total # of Visits to Date: 7 Plan of Care/Certification Expiration Date: 01/19/25 Pre-Treatment Pain: 7/10 Assessment Assessment: Patient reports pain 7/10 today. Continued pain in groin and intermittent in sacral area. Completed manual therapy per Doc flow. Able to resume full program since pt daugther was cooperative today. Post session pain 5-6/10. Plan Continue with current plan of care Exercises/Modalities/Manual: See DocFlow Sheet Education: HEP Goals (Total # of Visits to [...] hip abd 4+/5 for improved pelvic stability Lehr Attendant Goals Time Frame for Lehr Attendant Goals : 16 Lehr Attendant Goal 1: Improve functional mobility with Oswestry score <15/50 (from ) Lehr Attendant Goal 2: Decrease R SI pain 4/10 at worst x3 days Treatment Tolerance: Treatment Tolerance: Tolerated treatment well. Post Treatment Pain: 5-6/10 Time In: 0801 Time Out: 0836 Timed Code Treatment Minutes: 35 Minutes Total Treatment Time: 35 Minutes Austen Puga PTA Date: 12/22/2024 documented in this encounter [facility] 12-20-2024 History of Present illness Narrative Images from the original note were not included. [facility] Daily Note Date: 12/20/2024 Patient Name: Meena Lucero : 1995 (29 y.o.) Referring Provider (secondary): Dr. Partida Diagnosis: R buttock pain, sacral pain Treatment Diagnosis: back pain, SI pain Onset Date: 09/28/24 (Referral) PT Insurance Information: [facility] Total # of Visits Approved: 16 Per Physician Order Total # of Visits to Date: 6 Plan of Care/Certification Expiration Date: 01/19/25 Pre-Treatment Pain: 7/10 Assessment Assessment: Patient reports pain 7/10 today, worse pain in R groin area. Patient had her 18 month old daugther with her, so did shortened session. Completed manual therapy per Doc flow. Patient to complete therex/ HEP at home later. post session pain decreased to 6/10 in groin, patient advised to work on hip add squeezes to help. Plan Continue with current plan of care Exercises/Modalities/Manual: See DocFlow Sheet Education: On continuation of HEP Goals (Total # of Visits to Date: 6) Short Term Goals Time Frame for Short Term Goals: 8 Short Term Goal 1: Patient to be educated on and independent with HEP safe ex during pregnacy-Met Short Term Goal 2: Patient to be educated on and use SI belt to decrease pain during -Met Short Term Goal 3: Increase strength R hip abd 4+/5 for improved pelvic stability Correction Goals Time Frame for Correction Goals : 16 Lehr Attendant Goal 1: Improve functional mobility with Oswestry score <15/50 (from 50) Correction Goal 2: Decrease R SI pain 4/10 at worst x3 days Treatment Tolerance: Treatment Tolerance: Tolerated treatment well. Post Treatment Pain: 6/10 Time In: 9;00 Time Out : 9:26 Timed Code Treatment Minutes: 26 Minutes Total Treatment Time: 26 Minutes Clara Castrejon, PT Date: 12/20/2024 documented in this encounter [facility] 12-19-2024 History of Present illness Narrative Reason for Appointment: Patient ID: Meena Lucero is a 29 y.o. female who presents for Routine Visit Patient presents today for Return OB appointment. MEDICATIONS Current Outpatient Medications Medication Instructions metoclopramide (REGLAN) 10 mg, Oral, 4 times daily omeprazole (PRILOSEC) 20 mg, Oral, Daily before breakfast, Do not crush or chew. 27-1 MG tablet Every 24 hours MV-Min-Fe Fum-FA-DHA ( 1 PO) Oral ALLERGIES Allergies Allergen Reactions Hydrocodone Limestone Oil Hives Codeine Rash and Unknown Chest [...] nursing note reviewed. Exam conducted with a chip bin operator present. Vitals: Estimated body mass index is 37.44 kg/m as calculated from the following: Height as of 04/09/23: 5' 5 . Weight as of this encounter: 225 lb. BP: 122/76 Patient's last menstrual period was 06/23/2024. ASSESSMENT & PLAN ICD-10-CM 1. Second trimester Z34.92 POCT urinalysis dipstick manually resulted 2. 24 weeks gestation of Z3A.24 3. Diabetes mellitus screening Z13.1 CANCELED: CBC CANCELED: Glucose tolerance, 1 hour CANCELED: CBC CANCELED: Glucose tolerance, 1 hour 4. Low platelet count (CMS/HCC) D69.6 Platelet count 5. Thrombocytopenia affecting , antepartum (CMS/HCC) O99.119 D69.6 6. 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, antepartum O43.112 Return OB: Patient presents today for a routine obstetrics appointment. Patient is currently 24w2d . Patient states she is doing well but has complaints of being tired due to current . Patient has verbalizes frequent movement. labor precautions was discussed/given. Pt passed glucose- platelets low- given repeat lab for platelets. Pt to start growths at 28 weeks- bc of circumvallate placenta. Discussed gestational thrombocytopenia. Orders Placed This Encounter Procedures Platelet count POCT urinalysis dipstick manually resulted Follow Up: Patient is to return to office in 2 week for routine OB appointment. Documented by Marlene Olea LPN on behalf of: Gary Robison DO documented in this encounter [facility] 12-13-2024 History of Present illness Narrative Images from the original note were not included. [facility] Daily Note Date: 12/13/2024 Patient Name: Meena Lucero : 1995 (29 y.o.) Referring Provider (secondary): Dr. Partida Diagnosis: R buttock pain, sacral pain Treatment Diagnosis: back pain, SI pain Onset Date: 09/28/24 (Referral) PT Insurance Information: [facility] Total # of Visits Approved: 16 [...] hip abd 4+/5 for improved pelvic stability Correction Goals Time Frame for Correction Goals : 16 Correction Goal 1: Improve functional mobility with Oswestry score <15/50 (from 50) Correction Goal 2: Decrease R SI pain 4/10 at worst x3 days Treatment Tolerance: Treatment Tolerance: Tolerated treatment well. Post Treatment Pain: 6/10 Time In: 0945 Time Out: 1018 Timed Code Treatment Minutes: 33 Minutes Total Treatment Time: 33 Minutes Austen Puga PTA Date: 12/13/2024 documented in this encounter [facility] 12-06-2024 History of Present illness Narrative Images from the original note were not included. [facility] Daily Note Date: 12/06/2024 Patient Name: Meena Lucero : 1995 (29 y.o.) Referring Provider (secondary): Dr. Partida Diagnosis: R buttock pain, sacral pain Treatment Diagnosis: back pain, SI pain Onset Date: 09/28/24 (Referral) PT Insurance Information: [facility] Total # of Visits Approved: 16 [...] hip abd 4+/5 for improved pelvic stability Lehr Attendant Goals Time Frame for Correction Goals : 16 Correction Goal 1: Improve functional mobility with Oswestry score <15/50 (from 22/50) Lehr Attendant Goal 2: Decrease R SI pain 4/10 at worst x3 days Treatment Tolerance: Treatment Tolerance: Tolerated treatment well. Post Treatment Pain: 6/10 Time In: 9:45 Time Out : 10:18 Timed Code Treatment Minutes: 33 Minutes Total Treatment Time: 33 Minutes Clara Castrejon PT Date: 12/06/2024 Images from the original note were not included. [facility] Progress Report Date: 12/06/2024 Patient: Meena Lucero : 1995 Referring Provider (secondary): Dr. Partida Diagnosis: R buttock pain, sacral pain Treatment Diagnosis: back pain, SI pain Onset Date: 09/28/24 (Referral) PT Insurance Information: [facility] Total # of Visits Approved: 16 [...] hip abd 4+/5 for improved pelvic stability Lehr Attendant Goals Time Frame for Correction Goals : 16 Lehr Attendant Goal 1: Improve functional mobility with Oswestry score <15/50 (from 22/50) Correction Goal 2: Decrease R SI pain 4/10 at worst x3 days Clara Castrejon PT Date: 12/06/2024 documented in this encounter [facility] 11-20-2024 History of Present illness Narrative [...] hours PRN ALLERGIES Allergies Allergen Reactions Hydrocodone Limestone Oil Hives Codeine Rash and Unknown Chest [...] of: CANDACE Avitia documented in this encounter [facility] 10-17-2024 History of Present illness Narrative Reason [...] hours PRN ALLERGIES Allergies Allergen Reactions Hydrocodone Limestone Oil Hives Codeine Rash and Unknown Chest [...] nursing note reviewed. Exam conducted with a chip bin operator present. Vitals: Estimated body mass index is [...] Gary Robison DO documented in this encounter [facility] 10-17-2024 History of Present illness Narrative Occupational Therapy [facility] Date: 10/17/2024 Patient Name: Meena Lucero : 1995 Pt Cancelled Appt due to no reason for cancel Trinity Harris Date: 10/17/2024 documented in this encounter [facility] 10-12-2024 History of Present illness Narrative Images from the original note were not included. [facility] Daily Note Date: 10/12/2024 [...] hip abd 4+/5 for improved pelvic stability Lehr Attendant Goals Time Frame for Correction Goals : 16 Lehr Attendant Goal 1: Improve functional mobility with Oswestry score <15/50 (from 22/50) Correction Goal 2: Decrease R SI pain 4/10 at worst x3 days Post Treatment Pain: 4/10 Time In: 8:00 Time Out : 8:33 Timed Code Treatment Minutes: 33 Minutes Total Treatment Time: 33 Minutes Clara Castrejon, PT Date: 10/12/2024 documented in this encounter [facility] 10-04-2024 History of Present illness Narrative Physical Therapy [facility] Date: 10/04/2024 Patient Name: Meena Lucero : 1995 Pt Cancelled Appt due to therapist ill Trinity Harris Date: 10/04/2024 documented in this encounter [facility] 09-18-2024 History of Present illness [...] hours PRN ALLERGIES Allergies Allergen Reactions Hydrocodone Limestone Oil Hives Codeine Rash and Unknown Chest [...] nursing note reviewed. Exam conducted with a chip bin operator present. Vitals: Estimated body mass index is [...] or undercooked meat, and stay away from [facility]. Patient has been consulted regarding any [...] Gary Robison DO documented in this encounter [facility] 08-18-2024 History of Present illness Narrative [...] Date CHOLECYSTECTOMY TONSILLECTOMY Allergies Allergen Reactions Hydrocodone Limestone Oil Hives Codeine Rash and Unknown Chest [...] screen, urine; Future Nurse Note: Pt given [place] [address] and advised to have labs done [...] Daxa Martinez MA documented in this encounter [facility] 07-27-2024 History of Present illness Narrative Images from the original note were not included. [facility] Daily Note Date: 07/27/2024 Patient Name: Meena Lucero : 1995 (28 y.o.) Referring Provider (secondary): Dr. Partida Diagnosis: Sacral pain Treatment Diagnosis: SI pain Onset Date: 05/29/24 PT Insurance Information: [facility] Total # of Visits Approved: 16 [...] Goals Short Term Goal 1: STG= LTG Lehr Attendant Goals Time Frame for Lehr Attendant Goals : 16 visits Correction Goal 1: Decrease subjective SI/right gluteal pain to <3/10 with activity and transitional movements Post Treatment Pain: 5/10 Time In: 0910 Time Out : 0935 Timed Code Treatment Minutes: 25 Minutes Total Treatment Time: 25 Minutes Onel Brown PT Date: 07/27/2024 documented in this encounter [facility] 07-06-2024 History of Present illness Narrative Images from the original note were not included. [facility] Daily Note Date: 07/06/2024 [...] strengthening for self-correction of pelvic asymetry- MET Lehr Attendant Goals Time Frame for Lehr Attendant Goals : 10 visits Lehr Attendant Goal 1: Decrease subjective SI/right gluteal pain to <3/10 with activity and transitional movements Lehr Attendant Goal 2: Upgrade HEP for pelvic stab ex Lehr Attendant Goal 3: Maintain symetrical pelvic alignment for 5 consecutive days Post Treatment Pain: 4/10 Time In: 0910 Time Out : 0945 Timed Code Treatment Minutes: 35 Minutes Total Time: 35 Minutes ASIA MIX PT Date: 07/06/2024 documented in this encounter [facility] 06-29-2024 History of Present illness Narrative Images from the original note were not included. [facility] Daily Note Date: 06/29/2024 [...] strengthening for self-correction of pelvic asymetry- MET Lehr Attendant Goals Time Frame for Lehr Attendant Goals : 10 visits Lehr Attendant Goal 1: Decrease subjective SI/right gluteal pain to <3/10 with activity and transitional movements Correction Goal 2: Upgrade HEP for pelvic stab ex Lehr Attendant Goal 3: Maintain symetrical pelvic alignment for 5 consecutive days Post Treatment Pain: 2-3/10 Time In: 0915 Time Out : 0955 Timed Code Treatment Minutes: 35 Minutes Total Time: 40 Minutes ASIA MIX PT Date: 06/29/2024 documented in this encounter [facility] 01-10-2023 Hospital Discharge instructions Fei Canales MD - 01/10/2023 3:17 PM EST There was a possible concern for fracture of the fibula. Please follow-up with Dr. Rehman for further evaluation and be sure to use crutches and be nonweightbearing until then. The following attachments cannot be sent through Care Everywhere.Ankle Sprain (Czech)documented in this encounter [facility] Work Phone: 12-08-2022 Hospital Discharge instructions Patient [...] than 2 years old. Live in a fci. Travel on cruise ships. What are the [...] and water are not available, use hand color paste mixing supervisor. Make sure that all people in your household wash their hands well and often. Take emjp-ntp-nzfgtys and prescription medicines only as told by [...] and water are not available, use hand color paste mixing supervisor. This information is not intended to replace advice given to you by your health care provider. Make sure you discuss any questions you have with your health care provider. Document Released: 11/08/2006 Document Revised: 04/26/2020 Document Reviewed: 09/13/2019 [employer] Patient Education 2020 Integrated Medical Management. Follow Up Care 12/08/2022 09:17:52 With:SUSAN BENAVIDEZ, KANDY Caban Address: When: only if needed [facility] Kim 12-04-2022 Hospital Discharge instructions Jason Tracy MD - 12/04/2022 4:33 PM EST Increase fluids at home. Take Zofran for any nausea. Try Imodium/loperamide for diarrhea. Call primary care doctor for close follow-up. Use Tylenol or Motrin to keep fever down. The following attachments cannot be sent through Care Everywhere.Viral Infections (Czech)documented in this encounter [facility] Work Phone: 06-01-2022 Hospital Discharge instructions Patient [...] height. This can be done either in [place] ([place] or metric measurements. Note that charts are available to help you find your BMI quickly and easily without having to do these calculations yourself. To calculate your BMI in Czech ([place] measurements, your health care provider will: [...] medical problems. BMI can be measured using Czech measurements or metric measurements. To interpret your [...] 07/20/2005 Document Revised: 10/21/2018 Document Reviewed: 09/21/2018 [employer] Patient Education 2020 Integrated Medical Management. 06/01/2022 13:15:39 Carpal Tunnel Syndrome Carpal Tunnel [...] Having a job, such as being a software verification engineer or a cashier manager, that requires you to repeatedly move your [...] 3 times per day. General instructions Take pdse-zol-igcqgzl and prescription medicines only as told by [...] 11/05/2001 Document Revised: 03/17/2019 Document Reviewed: 03/17/2019 [employer] Patient Education [employer] Follow Up Care 05/28/2022 08:22:05 With:Meena Carl CNP Address: When: only if needed [facility] Evaluation + Plan note [facility] Evaluation note Diagnosis Subacute bronchitis- Primary Acute bronchitis documented in this encounter [employer] Phone: evallllqjl note* Diagnosis Left wrist pain Pain in joint, forearm documented in this encounter [employer] Phone: [email or web address] note* Diagnosis Viral illness- Primary Unspecified viral infection, in conditions classified elsewhere and of unspecified site documented in this encounter [employer] Phone: evaltfbwnu note* Diagnosis Injury of right ankle, initial encounter- Primary documented in this encounter [employer] Phone: [email or web address] note* Diagnosis Other closed fracture of proximal end of right fibula with routine healing, subsequent encounter documented in this encounter [employer] Phone: evaluation note* Diagnosis First trimester state, incidental 11 weeks gestation of Encounter for sterilization education documented in this encounter [facility]* Diagnosis Screening, , for anatomic survey Encounter for anatomic survey 15 weeks gestation of Second trimester state, incidental Encounter for gynecological examination without abnormal finding Vaginal discharge Leukorrhea, not specified as infective STD exposure Nausea and vomiting during documented in this encounter [facility] HealthcareEvaluation note* Diagnosis Missed menses First trimester state, incidental 6 weeks gestation of , unspecified gestational age Encounter for supervision of normal first in first trimester documented in this encounter [facility] HealthcareEvaluation note* Diagnosis Second trimester state, incidental 20 weeks gestation of Diabetes mellitus screening Screening for diabetes mellitus documented in this encounter [facility] HealthcareEvaluation note* Diagnosis Second trimester state, incidental 24 weeks gestation of Diabetes mellitus screening Screening for diabetes mellitus Low platelet count (CMS/HCC) Thrombocytopenia affecting , antepartum (CMS/HCC) 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, antepartum documented in this encounter [facility] HealthcareHospital course Narrative No data available for this section [facility] Hospital Discharge instructions* Attachments The following attachments cannot be sent through Care Everywhere. * Bronchitis (Czech) [facility]: progress note No data available for this section [facility] Reason for referral (narrative) Referred by: Meena Carl CNP [facility] Advance Directives No Advanced Directives Records FoundDocuments on File Type Date Recorded Patient Bag Turner Expl anation ACP-Advance Directive ACP-Power of Wastewater Manager Summary Purpose Family History No Family [...] Care Team (unrecognized sect ion and content) Fire Lieutenant Relationship Specialty Start Date End Date Keyon Brown MD [address] [place] [address] [place] [address] PCP - General Family Medicine 12/04/22 Fire Lieutenant Relationship Specialty Start Date End Date Keyon Brown MD [address] [place] [address] [place] [address] PCP - General Family Medicine 12/04/22 Fire Lieutenant Relationship Specialty Start Date End Date Keyon Brown MD [address] [place] [address] [place] [address] PCP - General Family Medicine 12/04/22 Fire Lieutenant Relationship Specialty Start Date End Date Óscar Villagran DNP [address] [place] [address] PCP - General Family Nurse Practitioner 03/14/24 Fire Lieutenant Relationship Specialty Start Date End Date Óscar Villagran DNP [address] [place] [address] PCP - General Family Nurse Practitioner 03/14/24 Fire Lieutenant Relationship Specialty Start Date End Date Óscar Villagran DNP [address] [place] [address] PCP - General Family Nurse Practitioner 03/14/24 Fire Lieutenant Relationship Specialty Start Date End Date Óscar Villagran DNP [address] [place] [phone] PCP - General Family Nurse Practitioner 03/14/24 Fire Lieutenant Relationship Specialty Start Date End Date Keyon Brown MD [address] [place], [place] [address] [phone] PCP - General 05/12/23 Gary Robison DO [address] [place] [address] Dr Emma Juarez, [facility] PCP - [facility] 02/21/24 Fire Lieutenant Relationship Specialty Start Date End Date Keyon Brown MD [address] [place], [place] [address] [phone] PCP - General 05/12/23 Gary Robison DO [address] [place] [address] [place] [address] PCP - [facility] 02/21/24 Fire Lieutenant Relationship Specialty Start Date End Date Óscar Villagran DNP [address] [place] [phone] PCP - General Family Nurse Practitioner 03/14/24 Fire Lieutenant Relationship Specialty Start Date End Date Keyon Brown MD [address] [place] [phone] PCP - General 05/12/23 Gary Robison, [facility] Leia Juarez, [facility] PCP [facility] 02/21/24 Fire Lieutenant Relationship Specialty Start Date End Date Keyon Brown MD [facility] [place] [phone] PCP - General 05/12/23 Gary Robison, DO [facility] Leia Juarez, [facility] 02/21/24 Fire Lieutenant Relationship Specialty Start Date End Date Keyon Brown MD [facility] [place] [phone] PCP - General 05/12/23 Gary Robison, DO [facility] Leia Juarez, [facility] PCP [facility] 02/21/24 Fire Lieutenant Relationship Specialty Start Date End Date Keyon Brown MD [facility] [place] [address] PCP - General 05/12/23 Gary Robison, DO [facility] Leia Juarez, [place] [phone] PCP [facility] 02/21/24 Fire Lieutenant Relationship Specialty Start Date End Date Keyon Brown MD [address] [place] [phone] PCP - General 05/12/23 Gary Robison DO [facility] Leia Juarez, [place] [phone] PCP - [facility] 02/21/24 Fire Lieutenant Relationship Specialty Start Date End Date Óscar Villagran DNP [address] [place] [address] PCP - General Family Nurse Practitioner 03/14/24 Fire Lieutenant Relationship Specialty Start Date End Date Keyon Brown MD [address] [place], [place] [address] [phone] PCP - General 05/12/23 Gary Robison DO [facility] [place] [phone] PCP [facility] 02/21/24 Fire Lieutenant Relationship Specialty Start Date End Date Keyon Brown MD [facility] [place] [phone] PCP - General 05/12/23 Gary Robison DO [facility] [place] [phone] PCP [facility] 02/21/24 Fire Lieutenant Relationship Specialty Start Date End Date Óscar Villagran DNP [address] [place] [address] PCP - General Family Nurse Practitioner 03/14/24 INFORMATION SOURCE (unrecogn ized section and content) DATE CREATED AUTHOR 02/01/2023 Papito Monge [facility] DATE CREATED AUTHOR AUTHOR'S ORGANIZ ATION 04/01/2023 [facility] DATE CREATED AUTHOR AUTHOR'S ORGANIZ ATION 12/20/2024 [facility] Special[facility] DATE CREATED AUTHOR AUTHOR'S ORGANIZ ATION 12/24/2024 Chrismariya Arciniega Derrick charles FOR RECORDS PERTAINING [...] BE BASED ON THE PRIMARY CLINICAL RECORDS. [facility] [employer] [facility]. provides no warranty or guarantee of the accuracy or completeness of information in this document.
== END 2024-12-25 08:10 | disposition home or self-care (01) ==
LOC: LAB 08:10
PROVIDERS: Visit Provider Obstetrics & Gynecology
DX: D69.6 Thrombocytopenia, unspecified (principal)
CPT/HCPCS: 36415; 85049

== ENCOUNTER 2025-01-16 07:56 | Outpatient (OUT) | payer OTHER, SELFPAY ==
--- NOTE | 2025-01-16 | US_ITS ---
The [address] [address] Patient Name: RUEL READ MRN: [id number] date: 1995 Sex: F Assigned Patient Location: Current Patient Location: US Accession/Order Number: [id number] Exam Date: 01/16/2025 11:08 Report Date: 01/16/2025 11:19 At the request of: YULIA ESTES DO Procedure: US OB growth CLINICAL DATA: Suspected circumvallate placenta ULTRASOUND OB GROWTH COMPARISON: 12/12/2024 and 11/20/2024 There is a single live intrauterine gestation in cephalic presentation. There is cardiac and somatic activity with heart rate of 153 bpm. The amniotic fluid index measures 16.2 cm which is in normal range. The following measurements were obtained: Biparietal diameter 7.5 cm 30 weeks 0 days 87% Head circumference 28.2 cm 30 week 6 days 91% Abdominal circumference 24.3 cm 28 weeks 4 days 53% Femur length 5.6 cm 29 weeks 3 days 68% The composite ultrasound age based on these measurements is 29 weeks 5 days +/- 2 weeks 1 day. The estimated date of delivery based on today's measurements is 03/29/2025. The estimated weight is 3 lbs. 0 oz. +/- 7 ounces. US/US OB growth IMPRESSION: SINGLE LIVE INTRAUTERINE GESTATION WITH TODAY'S ULTRASOUND AGE OF 29 WEEKS 5 DAYS. ULTRASOUND OB PLACENTA COMPARISON: 12/12/2024 There is a grade 1 posterior placenta. There is no suspected circumvallate placenta on today's exam. No previa is noted. IMPRESSION: NO APPARENT PLACENTAL ABNORMALITY. Impression dictated by: Marlene Orellana M.D.01/16/2025 11:19 AM Dictation Location: [employer] Electronically authenticated by: [id number] Y Date: 01/16/2025 11:19
--- NOTE | 2025-01-16 07:59 | US_ITS ---
The [address] [address] Patient Name: RUEL READ MRN: [id number] date: 1995 Sex: F Assigned Patient Location: Current Patient Location: [facility] Accession/Order Number: [id number] Exam Date: 01/16/2025 11:08 Report Date: 01/16/2025 11:19 At the request of: YULIA ESTES DO Procedure: US OB growth CLINICAL DATA: Suspected circumvallate placenta ULTRASOUND OB GROWTH COMPARISON: 12/12/2024 and 11/20/2024 There is a single live intrauterine gestation in cephalic presentation. There is cardiac and somatic activity with heart rate of 153 bpm. The amniotic fluid index measures 16.2 cm which is in normal range. The following measurements were obtained: Biparietal diameter 7.5 cm 30 weeks 0 days 87% Head circumference 28.2 cm 30 week 6 days 91% Abdominal circumference 24.3 cm 28 weeks 4 days 53% Femur length 5.6 cm 29 weeks 3 days 68% The composite ultrasound age based on these measurements is 29 weeks 5 days +/- 2 weeks 1 day. The estimated date of delivery based on today's measurements is 03/29/2025. The estimated weight is 3 lbs. 0 oz. +/- 7 ounces. US/US OB placenta IMPRESSION: SINGLE LIVE INTRAUTERINE GESTATION WITH TODAY'S ULTRASOUND AGE OF 29 WEEKS 5 DAYS. ULTRASOUND OB PLACENTA COMPARISON: 12/12/2024 There is a grade 1 posterior placenta. There is no suspected circumvallate placenta on today's exam. No previa is noted. IMPRESSION: NO APPARENT PLACENTAL ABNORMALITY. Impression dictated by: Marlene Orellana M.D.01/16/2025 11:19 AM Dictation Location: [employer] Electronically authenticated by: [id number] Y Date: 01/16/2025 11:19
--- OUTSIDE RECORDS SUMMARY | 2025-01-16 08:16 | XMS_ITS | CCD ---
Author Organization [facility] Care Team Providers Care Operational Risk Manager Name Role Phone Unavailable Primary Care Provider UnavailCharli Browne Primary Care Physician [phone] Keyon Davis MD Primary Care Provider 1( [phone] ANTHONY Carl Attending UnavailKeyon Lockett Attending Unavailable Evan Moyer Attending Unavailable LISHA, DR DRUMMOND LISTED Consulting Unavaila ble [facility], DR NICOLE Primary Care Unavailable ENRIQUETA ., DR BENDER Attending Unavailable ENRIQUETA ., DR BENDER Admitting Unavailable Clingman HUMA, Óscar Moreno Primary Care Provider Tyshawn FINN, Óscar A Primary Care Provider Keyon Davis MD Primary Care Provider Gary Robison DO Unavailable GARY ROBISON Attending Unavailable GARY ROBISON Attending Unavailable GARY ROBISON Attending Unavailable GENEVIEVE CALDERON Attending Unavailable JOHN PARTIDA Attending Unavailable JOHN PARTIDA Referring Unavailable CLINGMAN, ÓSCAR A Primary Care Unavailable JOHN PARTIDA Attending Unavailable JOHN PARTIDA Referring Unavailable CLINGMAN, ÓSCAR A Primary Care Unavailable JOHN PARTIDA Attending Unavailable JOHN PARTIDA Referring Unavailable CLINGMAN, ÓSCAR A Primary Care Unavailable KEYON DAVIS Primary Care Unavailable GARY ROBISON Referring Unavailable CLINGMAN, ÓSCAR A Primary Care Unavailable GARY ROBISON Referring Unavailable CLINGMAN, ÓSCAR A Primary Care Unavailable GARY ROBISON Referring Unavailable GARY ROBISON Referring Unavailable CLINGMAN, ÓSCAR A Primary Care Unavailable JOHN PARTIDA Attending Unavailable JOHN PARITDA Referring Unavailable CLINGMAN, ÓSCAR A Primary Care [...] ÓSCAR A Primary Care Unavailable OLEWIJOHN GOODMAN Referring Unavailable CLINGMAN, ÓSCAR A Primary Care Unavailable OLEJOHN CAIN Attending Unavailable JOHN PARTIDA Referring Unavailable CLINGMAN, ÓSCAR A Primary Care Unavailable OLEJOHN CAIN Attending Unavailable OLEWILERJOHN J Referring Unavailable CLINGMAN, ÓSCAR A Primary Care Unavailable OLEJOHN CAIN Attending Unavailable OLEJOHN CAIN Referring Unavailable CLINGMAN, ÓSCAR A Primary Care Unavailable CLINGMAN, ÓSCAR A Primary Care Unavailable GARY ROBISON Referring Unavailable OLEWIJOHN GOODMAN Attending Unavailable JOHN PARTIDA Referring Unavailable CLINGMAN, ÓSCAR A Primary Care Unavailable JOHN PARTIDA Attending Unavailable OLEWIJOHN GOODMAN J Referring Unavailable CLINGMAN, ÓSCAR A Primary Care Unavailable OLEWIJOHN GOODMAN Attending Unavailable OLEJOHN CAIN Referring Unavailable CLINGMAN, ÓSCAR A Primary Care Unavailable OLEJOHN CAIN Attending Unavailable OLEJOHN CAIN Referring Unavailable CLINGMAN, ÓSCAR A Primary Care Unavailable OLEJOHN CAIN Attending Unavailable JOHN PARTIDA Referring Unavailable CLINGMAN, ÓSCAR A Primary Care Unavailable CLINGMAN, ÓSCAR A Primary Care Unavailable GARY ROBISON Referring Unavailable KEYON DAVIS Primary Care Unavailable CLINGMAN, ÓSCAR A Primary Care Unavailable GARY ROBISON Referring Unavailable JOHN PARTIDA Attending Unavailable JOHN PARTIDA Referring Unavailable CLINGMAN, ÓSCAR A Primary Care Unavailable Allergies Allergy Classification Reported Allergen(s) Allergy Type Date of Onset Reaction(s) Facility (20 sources) Acetaminophen / HYDROcodone Drug Allergy 7 Rash, Unknown [facility] (20 sources) Acetaminophen / oxyCODONE Drug Allergy 5 Rash, Unknown [facility] (20 sources) Codeine; Translations: [codeine] Drug Allergy 7 Rash, Cutaneous eruption (morphologic abnormality), Unknown [facility] (3 sources) Acetaminophen / HYDROcodone; Translations: [acetaminophen-hy drocodone] Drug Allergy Hives [facility] (3 sources) Acetaminophen / oxyCODONE; Translations: [acetaminophen-ox ycodone] Drug Allergy Cutaneous eruption (morphologic abnormality) [facility] (1 source) Acetaminophen / HYDROcodone Drug Allergy [facility] (1 source) Acetaminophen / oxyCODONE Drug Allergy [facility] (1 source) Codeine Drug Allergy [facility] (20 sources) HYDROcodone Drug Allergy 3 [facility] Healthcare (20 sources) orange allergenic extract Drug Allergy 5 [facility] Medications Current Medications Medication Drug Class(es) [...] extended release oral tablet (6 sources) Uncompetitive Y-cuhmnd-E-aspartate Receptor Antagonist, Sigma-1 Agonist Start: 09-14-2021 take 1 tablet by mouth every twelve hours as needed for cough Dextromethorphan-g uaiFENesin 60-1200 MG TB12 Take 1 tablet by mouth every 12 hours as needed (COUGH CONGESTION) 28 tablet 0 09/14/2021 Active dextromethorphan hydrobromide 3 mg/ml / promethazine hydrochloride 1.25 mg/ml oral solution (6 sources) Phenothiazine, Uncompetitive M-xjhzzw-A-aspartate Receptor Antagonist, Sigma-1 Agonist Start: 05-31-2018 promethazine-dextr [...] day(s), # 30 tab(s), Refills(s) 1, Pharmacy: [email or web address], 170, cm, 06/01/22 12:55:00 EDT, Height/Length [...] 0 Active metoclopramide 10 mg oral tablet (11 sources) Dopamine-2 Receptor Antagonist Start: 10-17-2024 End: 01-15-2025 metoclopramide (Reglan) 10 MG tablet Indications: Nausea and vomiting during Take 1 tablet (10 mg) by mouth in the morning and 1 tablet (10 mg) at noon and 1 tablet (10 mg) in the evening and 1 tablet (10 mg) before bedtime. 120 tablet 2 10/17/2024 01/15/2025 Active omeprazole 20 mg delayed release oral capsule (12 sources) Proton Pump Inhibitor Start: 11-20-2024 End: [...] 0 05/22/2024 05/27/2024 Active 27-1 MG tablet (15 sources) 27-1 MG tablet 1 (one) time [...] TID, # 15 tab(s), Refills(s) 0, Pharmacy: [email or web address], 170, cm, 09/03/22 14:31:00 EDT, Height/Length [...] Onset: 10-17-2024 09-18-2024 Episodic Residual codes; unclassified (20 sources) Patient encounter status; Translations: [Other specified health status] Onset: 06-01-2022 Episodic Residual codes; unclassified (2 sources) Gestation period, 11 weeks; Translations: [11 weeks gestation of ] 09-18-2024 Episodic Residual codes; unclassified (13 sources) Gestation period, 15 weeks; Translations: [15 [...] NEGATED: Highlighted row has been ruled out!Unclassified (15 sources) No known active problems 05-22-2024 Results Test Name Value Interpretation Reference Range Facility ALL PLATELET COUNTon 025 Interpretation and review of laboratory results Abnormal [facility] re TBH PLT 139 Low [facility] e ALL CBC WITH AUTO DIFFon BASOPHILS ABSOLUTE AUTO 0 [facility] Basophils/100 WBC (Bld) 0.2 % 0.2 - 2.0 % [facility] Eosinophils/100 WBC (Bld) 0.9 % 0.9 - 7.0 % [facility] Erythrocyte distribution width (RBC) [Ratio] 13.2 % 11.0 - 15.0 % [facility] Hematocrit (Bld) [Volume fraction] 34.6 % Low 36.0 - 48.0 % [facility] Health[facility] e Hemoglobin (Bld) [Mass/Vol] 11.5 g/dL Low 12.0 - 16.0 g/dL [facility] IMMATURE GRANULOCYTES ABS AUTO 0.02 [facility] Immature granulocytes/100 WBC (Bld) 0.3 % 0.0 - 0.5 % [facility] Interpretation and review of laboratory results [facility] LYMPHOC[facility] ABSOLUTE AUTO 1.3 [facility] Lymphocytes/100 WBC (Bld) 22 % 20.5 - 60.0 % [facility] MCH (RBC) [Entitic mass] 28.8 pg 26.7 - 34.0 pg [facility] MCHC (RBC) [Mass/Vol] 33.2 g/dL 29.9 - 35.2 g/dL [facility] MCV (RBC) [Entitic vol] 86.5 fL 81.0 - 99.0 fL [facility] MONOCYTES ABSOLUTE AUTO 0.4 [facility] Monocytes/100 WBC (Bld) 7.2 % 1.7 - 12.0 % [facility] NEUTROPHILS ABSOLUTE AUTO 4 [facility] Neutrophils/100 WBC (Bld) 69.4 % 43.0 - 75.0 % [facility] Platelet mean volume (Bld) [Entitic vol] 11.7 fL 9.5 - 13.5 fL [facility] TBH EO # 0.1 [facility] TB PLT 117 Low [facility] TB RBC 4 Low [facility] e TB WBC 5.7 [facility] e Urinalysis macro (dipstick) panel (U)on 12-19-2024 Bilirubin, UA Negative Negative - 4(70) +++ mg/dL [facility] Blood, UA Negative Negative - 50 Darnell/mcL [facility] Clarity, UA Clear [facility] re Color, UA Yellow [facility] Health[facility] e Glucose, UA Positive Negative - 2000(110) ++++ mg/dL [facility] Comment on above: 100 mg Interpretation and review of laboratory results Abnormal [facility] re Ketones, UA Negative Negative - 160(16) ++++ mg/dL [facility] Leukocytes, UA Positive Negative - 500+++ Shona/mcL [facility] Comment on above: small Nitrite, UA Negative Negative - Positive [facility] pH, UA 7 5 - 9 [facility] Health[facility] e Protein, UA Negative Negative - 1999(20) ++++ mg/dL [facility] Spec Grav, UA 1.02 1 - 1.03 [facility] Urobilinogen, UA 0.2 0.2 - 12 mg/dL [facility] Urinalysis macro (dipstick) panel (U)on 11-20-2024 Bilirubin, UA Negative Negative - 4(70) +++ mg/dL [facility] Blood, UA Negative Negative - 50 Darnell/mcL [facility] Clarity, UA Clear [facility] Color, UA Yellow [facility] Glucose, UA Negative Negative - 1999(110) ++++ mg/dL [facility] Interpretation and review of laboratory results Abnormal [facility] Ketones, UA Negative Negative - 160(16) ++++ mg/dL [facility] Leukocytes, UA Positive Negative - 500+++ Shona/mcL [facility] Comment on above: small Nitrite, UA Negative Negative - Positive [facility] pH, UA 7.5 5 - 9 [facility] Protein, UA Negative Negative - 1999(20) ++++ mg/dL [facility] Spec Grav, UA 1.015 1 - 1.03 [facility] Urobilinogen, UA 0.2 0.2 - 12 mg/dL [facility] IGP,APTIMA HPV,AGE GDLNon AGE GDLN ACOG TESTING Note . [facility] Comment on above: TESTS RESULT FLAG UN ITS REF RANGE LAB Clinician Provided Cytology Information Source.............Cervix No. of containers..01 ThinPrep Vial Age Algo ACOG Subha... FLAG LEGEND: L-Low Normal,H-High Normal,LL-Alert Low,HH-Alert High <-Panic Low,>-Panic High,A-Abnormal,AA-Critical Abnormal Performed at: 01 =G [facility] [address] [facility], [place] [address] Yulisa Mustafa MD, IGP, RFX APTIMA HPV ASCU Note . [facility] Comment on above: TESTS RESULT FLAG UN ITS REF RANGE LAB DIAGNOSIS: 02 NEGATIVE FOR INTRAEPITHELIAL LESION OR MALIGNANCY. FUNGAL ORGANISMS MORPHOLOGICALLY CONSISTENT WITH FELIPE SPECIES ARE PRESENT. Specimen adequacy: 02 Satisfactory for evaluation. Endocervical and/or squamous metaplastic cells (endocervical component) are present. Performed by: Estefany Boucher, [employer] ([facility]) . 02 Note: Note 03 The [...] <-Panic Low,>-Panic High,A-Abnormal,AA-Critical Abnormal Performed at: [id number] [facility] [place] [address] Pily Shields PhD, [address] [address] Yulisa Mustafa MD, Performed at: [address] [id number] [employer]: Yulisa Mustafa MD, Phone: [phone] Performed at: [address], [place] [id number] [employer]: Pily Shields PhD, Phone: [phone] SPATULA-ALONE CERVIX [facility] Healthcar e RECURRENT VAGINITIS (HTRX)on 10-18-2024 ATOPOBIUM VAGINAE 0 [facility] ATOPOBIUM VAGINAE Not detected [facility] BVAB 2,3 (BACTERIAL VAGINOSIS ASSOCIATED BACTERIA 2, 3); MOBILUNCUS SPP 0 [facility] BVAB 2,3 (BACTERIAL VAGINOSIS ASSOCIATED BACTERIA 2, 3); MOBILUNCUS SPP Not detected [facility] FELIPE ALBICANS, PARAPSILOSIS, TROPICALIS 0 [facility] FELIPE ALBICANS, PARAPSILOSIS, TROPICALIS Not detected [facility] FELIPE GLABRATA 0 [facility] FEL[facility] GLABRATA Not detected [facility] FELIPE KRUSEI 0 [facility] FELIPE KRUSEI Not [facility] CHLAMYDIA TRACHOMATIS 0 [facility] CHLAMYDIA TRACHOMATIS Not detected [facility] GARDNERELLA V[facility]INALIS 0 [facility] GARDN[facility] VAGINALIS Not detected [facility] MEGASPHAERA (TYPES 1, 2) 0 [facility] MEGASPHAERA (TYPES 1, 2) Not detected [facility] MYCOPLASMA GENITALIUM 0 [facility] MYCOPLASMA GENITALIUM Not detected [facility] NEISSERIA GONORRHOEAE 0 [facility] NEISSERIA GONORRHOEAE Not detected [facility] TRICHOMONAS VAGINALIS 0 [facility] TRICHOMONAS VAGINALIS Not detected [facility] Urinalysis macro (dipstick) panel (U)on 10-17-2024 Bilirubin, UA Negative Negative - 4(70) +++ mg/dL [facility] Comment on above: n Blood, UA Negative Negative - 50 Darnell/mcL [facility] Healthcare Clarity, UA Clear [facility] Color, UA Yellow [facility] Health[facility] e Glucose, UA Negative Negative - 1999(110) ++++ mg/dL [facility] Interpretation and review of laboratory results Normal [facility] re Ketones, UA Negative Negative - 160(16) ++++ mg/dL [facility] Leukocytes, UA Negative Negative - 500+++ Shona/mcL [facility] Nitrite, UA Negative Negative - Positive [facility] pH, UA 6 5 - 9 [facility] Health[facility] e Protein, UA Negative Negative - 1999(20) ++++ mg/dL [facility] Spec Grav, UA 1.03 1 - 1.03 [facility] Urobilinogen, UA 0.2 0.2 - 12 mg/dL [facility] Urinalysis macro (dipstick) panel (U)on 09-18-2024 Bilirubin, UA Negative Negative - 4(70) +++ mg/dL [facility] Blood, UA Negative Negative - 50 Darnell/mcL [facility] Clarity, UA Clear [facility] Health[facility] re Color, UA Yellow [facility] Health[facility] Glucose, UA Negative Negative - 1999(110) ++++ mg/dL [facility] Interpretation and review of laboratory results Normal [facility] re Ketones, UA Negative Negative - 160(16) ++++ mg/dL [facility] Leukocytes, UA Negative Negative - 500+++ Shona/mcL [facility] Healthcare Nitrite, UA Negative Negative - Positive [facility] pH, UA 6.5 5 - 9 [facility] Health[facility] e Protein, UA Negative Negative - 1999(20) ++++ mg/dL [facility] Spec Grav, UA 1.015 1 - 1.03 [facility] Urobilinogen, UA 0.2 0.2 - 12 mg/dL [facility] BOX TESTon 09-11-2024 BOX TEST SENT OUT [facility] [place] [facility]care BOX1 [facility] Healthcar e BOX2 11/11/24 [facility] e UNITY BOX [facility] ( test) Ql (U)o n 08-18-2024 Interpretation and review of laboratory results Abnormal [facility] re Preg Test, Ur Positive [facility] e Urinalysis macro (dipstick) panel (U)on 08-18-2024 Bilirubin, UA Negative Negative - 4(70) +++ mg/dL [facility] Blood, UA Negative Negative - 50 Darnell/mcL [facility] Clarity, UA Clear [facility] re Color, UA Yellow [facility] e Glucose, UA Negative Negative - 1999(110) ++++ mg/dL [facility] Interpretation and review of laboratory results Abnormal [facility] Ketones, UA Negative Negative - 160(16) ++++ mg/dL [facility] Leukocytes, UA Negative Negative - 500+++ Shona/mcL [facility] Nitrite, UA Positive Negative - Positive [facility] Comment on above: small pH, UA 7.0 5 - 9 [facility] Protein, UA Negative Negative - 1999(20) ++++ mg/dL [facility] Spec Grav, UA 1.015 1 - 1.03 [facility] Urobilinogen, UA 0.2 0.2 - 12 mg/dL [facility] ALL HCG, QUANTITATIVEon 07-23 Interpretation and review of laboratory results Abnormal [facility] re MHPT HCG, QUANT 31197.0 High [facility] thcare Comment on above: Non-preg premeno <=5 Postmeno <=8 Male <=3 If HCG results do not concur with clinical observations, additional testing to confirm results is recommended. Original Ordering Provider: GARY WALTERSISYNC [facility] Healthcar e HCG, Quanton 08-07-2024 HCG, Quant 26443.0 mIU/mL High <5 [facility] Comment on above: Result Comment: Non-preg premeno <=5 Postmeno <=8 Male <=3 If HCG results do not concur with clinical observations, additional testing to confirm results is recommended. Performed By: #### B HCG #### [facility] [address] [place] [address] [employer]: Armen Madrigal MD HCG, Quantitative, on 08-07-2024 [place] [address].0 m[IU]/mL High NINF [facility] Comment on above: Non-preg premeno <=5 Postmeno <=8 Male <=3 If HCG results do not concur with clinical observations, additional testing to confirm results is recommended. Interpretation and review of laboratory results Abnormal [facility] ALL HCG, QUANTITATIVEon 07-23 Interpretation and review of laboratory results Abnormal [facility] MHPT HCG, QUANT 1366.0 High NINF [facility] Comment on above: Non-preg premeno <=5 Postmeno <=8 Male <=3 If HCG results do not concur with clinical observations, additional testing to confirm results is recommended. Original Ordering Provider: GARY HARRELLZIO [facility] HCG, Quanton 08-02-2024 HCG, Quant 1366.0 mIU/mL High <5 [facility] Comment on above: Result Comment: Non-preg premeno <=5 Postmeno <=8 Male <=3 If HCG results do not concur with clinical observations, additional testing to confirm results is recommended. Performed By: #### B HCG #### [facility] [address], [place] [id number] [employer]ler: Armen Madrigal MD ALL HCG, QUANTITATIVEon Interpretation and review of laboratory results Abnormal [facility] MHPT HCG, QUANT 506.3 High [facility]INF [facility] Comment on above: Non-preg premeno <=5 Postmeno <=8 Male <=3 If HCG results do not concur with clinical observations, additional testing to confirm results is recommended. Original Ordering Provider: GARY AGUILAR DO ENRIQUETA [facility] HCG, Quanton 07-31-2024 HCG, Quant 506.3 mIU/mL High <5 [facility] Comment on above: Result Comment: Non-preg premeno <=5 Postmeno <=8 Male <=3 If HCG results do not concur with clinical observations, additional testing to confirm results is recommended. Performed By: #### B HCG #### [facility] [address] [place] [address] Stave [employer] Roller: Armen Madrigal MD HCG, Quantitative, on 07-31-2024 HCG.beta subunit Qn 506.3 m[IU]/mL High NINF [facility] Comment on above: Non-preg premeno <=5 Postmeno <=8 Male <=3 If HCG results do not concur with clinical observations, additional testing to confirm results is recommended. Interpretation and review of laboratory results Abnormal [facility] ALL HCG, QUANTITATIVEon Interpretation and review of laboratory results Abnormal [facility] MHPT HCG, QUANT 200.3 High NIN [facility] Comment on above: Non-preg premeno <=5 Postmeno <=8 Male <=3 If HCG results do not concur with clinical observations, additional testing to confirm results is recommended. Original Ordering Provider: GARY MEI [facility] HCG, Quanton 07-29-2024 HCG, Quant 200.3 mIU/mL High <5 [facility] Comment on above: Result Comment: Non-preg premeno <=5 Postmeno <=8 Male <=3 If HCG results do not concur with clinical observations, additional testing to confirm results is recommended. Performed By: #### B HCG #### [facility] [address] [place] [address] [employer]ler: Armen Madrigal MD ALL HCG SERUM,QUALITATIVEon 07-27-2024 Interpretation and review of laboratory results Abnormal [facility] MHPT HCG SCREEN, BLOOD Positive Abnormal NEG [facility] Healthcare Comment on above: If HCG results do not concur with clinical observations, additional testing to confirm result is recommended. This test is not labeled for use as a tumor marker. [employer] has confirmed the use of plasma for this test. This has not been cleared or approved by the U.S. Food and Drug Administration. The FDA has determined that such clearance is not necessary. Original Ordering Provider: GARY MEI [facility] HCG Screen, Bloodon 07-27-20 24 HCG Screen, Blood Positive Abnormal NEG [facility] Comment on above: Result Comment: If HCG results do not concur with clinical observations, additional testing to confirm result is recommended. This test is not labeled for use as a tumor marker. [facility] has confirmed the use of plasma for this test. This has not been cleared or approved by the U.S. Food and Drug Administration. The FDA has determined that such clearance is not necessary. Performed By: #### H CG #### [facility] [address] [place] [address] [employer]ler: Armen Madrigal MD HCG, Quanton 07-27-2024 HCG, Quant 73.4 mIU/mL High <5 [facility] Comment on above: Result Comment: Non-preg premeno <=5 Postmeno <=8 Male <=3 If HCG results do not concur with clinical observations, additional testing to confirm results is recommended. Performed By: #### B HCG #### [facility] [address] [facility] [place] [address] Stave [employer] Roller: Armen Madrigal MD HCG, Quanton 06-08-2024 HCG, Quant <1.0 Normal <[address] [place] [address] Comment on above: Result Comment: Non-preg premeno <=5 Postmeno <=8 Male <=3 If HCG results do not concur with clinical observations, additional testing to confirm results is recommended. Performed By: #### B HCG #### [facility] [address] [place] [address] [employer]ler: Armen Madrigal MD XR SACRUM COCCYX (MIN 2 VIEW S)on 05-24-2024 XR SACRUM COCCYX (MIN 2 VIEWS) HISTORY: Sacral pain. TECHNIQUE: 3 views sacrum and coccyx. COMPARISON: None. FINDINGS: Sacroiliac joints are normal. No fracture or acute osseous abnormality is identified. IMPRESSION: No acute process. Interpreted by: Parker Coleman MD Signed by: Parker Coleman MD 05/24/24 Final result Normal [facility] HCG, Quanton 03-04-2024 HCG, Quant 3680.0 mIU/mL High <5 [facility] Comment on above: Result Comment: Non-preg premeno <=5 Postmeno <=8 Male <=3 If HCG results do not concur with clinical observations, additional testing to confirm results is recommended. Performed By: #### B HCG #### [facility] [address] [place] [address] [employer] Roller: Armen Madrigal MD Cytology Cervical or vaginal smear or scraping studyon 05-26-2023 [facility] RAD - MISCon 02-01-2023 RAD - MISC [id number] #[id number] Normal [facility] XR ANKLE RIGHT (MIN 3 VIEWS) on 01-29-2023 FINDINGS/IMPRESSION: 1. Compression fracture tip of the fibula no longer separately seen. 2. Anatomic alignment throughout. 3. Soft tissue swelling has resolved. [facility] EXAM: XR ANKLE RIGHT (MIN 3 VIEWS). HISTORY: Other closed fracture of proximal end of right fibula with routine healing, subsequent encounter. COMPARISON: 01/10/2023. [facility] Mauro Anton Jr., MD - 01/29/2023 EXAM: XR ANKLE RIGHT (MIN 3 VIEWS). HISTORY: Other closed fracture of proximal end of right fibula with routine healing, subsequent encounter. COMPARISON: 01/10/2023. IMPRESSION: FINDINGS/IMPRESSION: 1. Compression fracture tip of the fibula no longer separately seen. 2. Anatomic alignment throughout. 3. Soft tissue swelling has resolved. [employer] Phone: Radiology Study observation (narrative) [employer] Phone: XR ANKLE RIGHT (MIN 3 VIEWS) Ordered By: Mauro Anton on 01-29-2023 [employer] Phone: RAD - MISCon 01-11-2023 RAD - MISC [id number] #1.00CD:127 Normal [facility] XR ANKLE RIGHT (MIN 3 VIEWS) on 01-10-2023 FINDINGS/IMPRESSION: 1. Very small nondisplaced incomplete fracture is questioned in the distal tip of the right fibula, with mild surrounding soft tissue swelling. 2. No other fracture, malalignment, significant arthritis or acute bony abnormality is seen. [facility] CLINICAL HISTORY: Right ankle pain and swelling since an injury yesterday. RIGHT ANKLE 3 VIEWS: [facility] João Amezquita MD - 01/10/2023 CLINICAL HISTORY: Right ankle pain and swelling since an injury yesterday. RIGHT ANKLE 3 VIEWS: IMPRESSION: FINDINGS/IMPRESSION: 1. Very small nondisplaced incomplete fracture is questioned in the distal tip of the right fibula, with mild surrounding soft tissue swelling. 2. No other fracture, malalignment, significant arthritis or acute bony abnormality is seen. [employer] Phone: Radiology Study observation (narrative) [employer] Phone: XR ANKLE RIGHT (MIN 3 VIEWS) Ordered By: João Amezquita on 01-10-2023 [employer] Phone: Ambulatory Visit Summaryon 0 12-08-2022 Ambulatory Visit Summary MEENA LUCERO :1995 Visit Date:12/08/2022 Ambulatory Visit Instructions Your Diagnosis Gastroenteritis due to [place]-like virus Obesity due to excess calories BMI [...] Schedule the Following Appointments Follow Up with Keyon DAVIS MD, FAM When: Only if needed Where: Medications What How Much When Instructions New dicyclomine (dicyclomine 20 mg Tab) 1 Tablets By Mouth 3 times a day Duration: 10 Days 30 to 60 minutes before meals Pickup at [facility] Unchanged multivitamin, ( Multivitamins with Vitamin B Complex, Vitamin C, Minerals and L-Methylfolate oral capsule) 1 Capsules By Mouth Every day Contact prescribing physician if questions or concerns Unchanged ondansetron (Zofran ODT 4 mg Tab-Dis) 1 Tablets By Mouth 3 times a day Contact prescribing physician if questions or concerns Pharmacy Information [facility]: [address], [place] [id number] [phone] Medications and Immunizations Administered Not Given influenza virus vaccine, inactivated, Postpone due to refusal SARS-CoV-2 mRNA (tozinameran 5y-11y) vac, Postpone due to refusal Allergies Percocet 5/325 (Hives, Rash) Vicodin (Hives) codeine (Hives, Rash) Problems Ongoing - Any problem that you are currently receiving treatment for. BMI 31.0-31.9,adult Gastroenteritis due to [place]-like virus Non-smoker Obesity due to excess calories [...] 1 years old. ? Live in a jail. ? Travel on cruise ships. What are [...] immune system (more content not included)... Normal [facility] ED Note-Physicianon 12-08-19 ED Note-Physician [id number] #1.00CD:127 Normal [facility] Family Medicine Office/Clini c Noteon [...] and COVID. 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 Gastroenteritis due to [place]-like virus (A08.8: Other specified intestinal infections) Viral [...] day(s), # 30 tab(s), Refills(s) 0, Pharmacy: [facility], 170, cm, 12/08/22 12:00:00 EST, Height/Length Dosing, 90.5, kg, 12/08/22 12:00:00 EST, Weight Dosing Follow-up With When Contact Information SUSAN BENAVIDEZ, KANDY Caban Only if needed Additional Instructions: Patient Education Viral Gastroenteritis, Adult Problem List/Past Medical History Ongoing BMI 31.0-31.9,adult Gastroenteritis due to [place]-like virus Non-smoker Obesity due to excess calories [...] Use, 05/26/2017 Employment/School 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 Normal [facility] Comment on above: Result Comment: [...] 1 years old. ? Live in a jail. ? Travel on cruise ships. What are [...] and water are not available, use hand insole department worker. ? Make sure that all people in your household wash their hands well and often. ? Take iyen-clh-hxcmeju and prescription medicines only as told by [...] to person (more content not included)... Normal [facility] COVID-19, Rapidon 12-04-2022 SARS-CoV-2 (COVID-19) [...] management decisions. Fact sheet for Healthcare Providers: https://www.fda.gov/media/885415/download Fact sheet for Patients: https://www.fda.gov/media/848561/download Methodology: Isothermal Nucleic Acid Amplification Specimen Description .NASOPHARYNGEAL [facility] Rapid influenza A/B antigens on 12-04-2022 Flu A Antigen Negative NEGATIVE [facility] Comment on above: for Influenza A Anti gen Flu B Antigen Negative NEGATIVE [facility] Comment on above: for Influenza B Anti gen. [facility] C Urineon 09-06-2022 Bacteria identified [...] Locations R1: This test was performed at: [facility], [address] [place] [address], [facility] , , [facility] Comment on above: Performed By: #### 2 [id number], [id number], [id number] ####[facility] [address] [place] [address] Coding Summary.on 09-04-2022 Coding Summary. [id number] Gh0bWw+PGhlYWQ+PE1FV GJiI67hvRJqtA8MQ9wNZ U8WETJCVYNCGL8XYS5wh HY8OYxvM6ObjkPc YllikAOoXU00LHe3AWA7 fXwaKDsxhT8nhDHdB2g8 IqZmPJ40hA67JOonFOMw JpQ3OoRcktlylSFf W5arHrIrcKJqGoc+PHRh YmxlIHdpZHRoPScxMDAl ItLtdIcwZX4vZk8dGXSg LWNvbGxhcHNlOiBj q4whEBIhUTxwSJ7rkQbg R1KziDA9ORNan4z2Nq71 dHI+NYYrXAN1oBgaVIag v802ImFuo4qlOKP7 iJTkYDxvEDS4V17ec5F3 KLTlNXCgLWX8oUM5xJ8l sZkbvvejC2VbcDApGoO6 CHE4eXQygS7vuXto cqvskY8qImr+C47TYQ8X HQNYFD0JPgb4R8SkOvlq dHI+JL76ZDIaGA68mNEb iUMbt5znlXt9QiAb CXOjNTW7aEweCFshf5Yj VMUjQ68dbQZsy3A3HUEw rIwclCJhMwPpaAJ6oQ2n RNqqmdndm9ulxfjv Hwssn5clsm11xE93E38x GDbaAJLhXNK9UEWlPVXr rIrugw7vvQ3dDp8+IDxj b4uqj6mupXp1FoKv IIQivbLsqUjmIJX2k4Tt Hs99Q1KtcBigf1RkBbs5 ig51aGUez1M1iYG8TPdj KMCxxR0rIRnxInH0 EDXsZeTfaB90iMGlJNzi Gt1lsDmnwYrjNU7mXSKm uawcUZRuoF5oUXBzdYOu hYrxGE0vTEVibfmg p430RfFkTJS7AYYsfUSh F6HbfW6kZwVgNLHvYZJm S3ZpyPKiGVdrR292UBne UhS9XHWktwNaO7Gf RIQhpBtgUyA0p1G3Ol7P t8TkmloiYBL2WOznHXXu NiA3PoYzTmE5Z2WiQju1 BVYvrAfdTW1qE9Ta MLDwuctmucvxmGG4PIMe WWAfcW13iCGbIYolMt8l q2K9n592DUCaANQsnF49 Eg9czFexXAVynUOQ eC9wscdib5mdeezkYpSa WFZkRVi6ODq2RGRtuFjt KeDqPOX6FyT5SJO2vMEi eD1ntPglqgxnfF2x Oyc+W94yaT7sDCW1DBQ3 qaabHXEycjMxOD01BT81 V9UbLbhdrFQxiJP+PGRp gaSzbBiuTD4pXyTg b2czl8AhLBazA6KbPOTa TIxmKcv0RSMtEEW1qJA5 dW2sXABfRAgbb7G5tOS2 V0YioiNadi8vp8ek CAVfWJhbW14roNMof9B4 VHDzgZD5EIApoPptKhGl rV84Lvt+APUvwPkwz9Oa Fckio2fzg6frwBk6 IjMwJSIgdmFsaWduPSJ0 s4WnRk26V21cQIscZSRy WFPyYWRnYWMciDpzky2n qU9dBb7+PGNvbCB3 yWG2nN9jKHVbLhN7FItg T328ElPijHFbClham9xd l1tuzKq3PrPkVSCghgCr nSkkPPS4d7DpEz86 P84iWUrvMKRlFSJkMSAq RZTtnTzcdc7etM3bGb8+ DX7fs3bemj08aE56kTG+ HQClRQI2iZtyWNsr RMBzfE7jVEvgEnD5HZIo FoDhwA09iORqLLpkPo8r sJwujKlxBC7wTOIqbtuf z823YqYsq0kwRSUv oEJuOKgoYBP2J90ah1O4 VQMzAYTxAPW4pPC2yX2a bGlnbjogbGVmdDsgdmVy yKnvIJjpUIzkI862 IHRvcDsnPlBhdGllbnQg ZuFyKIl4V0TqSex6OZRy kLwjOI2evKBaRDbmRj2c wVmblKenKO4vRHAi wryez451WwMlz6wrUJQg zCCiVGufOET6B35jt1Z7 PPLoNXIhABX2iNT6iN0k bGlnbjogbGVmdDsg joEarNixLIkpZYxiE069 IHRvcDsnPkJpcnRoIERh vNH4ZT75EO75yXXib3G2 zIW8C1UaHBXbqxsf tttpnNI5OCMnDQShcO11 Po7ahDquPk5mTDGoKXX1 XRSmkAWpG3EpbH4nHoKr QXDvDTPxN5FtoWMn DEokC096QMypYoD0IVLf bfGeW6LrMCFjoJmcTsZ4 h6H7Zv6KE2Q0WY59KL31 cFNyu9N0tQJ6C8Ar VAVgiakvzsllhBL4WYTl WQWbfR62Rz8qxUjuUh0i WMImOSY4JLZcoMXdM3Cx dK7aRwKzCXPhKYNe S8MepYFoJRcwB327QDxv GwV6HRDjaiMgU6QwXPSd nDheJeO6w5B3Ij2ASGs4 UB66JV19sUOnn5D7 jZB8T0ZoALXwpuzphiac bVA3ACEqYWQnsA29Jg1j sUcoTe3nTKPcGBQ6VEMl rJKxP7PttP9nPjXu RGTiKQOmL5OpoBIjUZzq T724AQipNdF5JBPmjbJk L4VnHMTpbRdwAvW0v3Y1 Hv3QGWPzAS69LBR4 tWF5AM56XV06M9KvTnog dGFibGU+PHRhYmxlIHdp ZHRoPScxMDAlJyBzdHls XD9vMm6gPSDaDPPc kJzgcAQzFkSzm0kuHHXs LYwpUE1lfRuoK1YrbDS2 TZUoa7f9Qs38H17vL4Av dXA+RGNehLX8aKB0 zX0vBlRyByI3XNgeM386 FtCzdPOqKkodi7mug0kf rZi9MpX8AGKrtaNsaXnx TQV5w8VuEz16Q56n IHdpZHRoPSIxNSUiIHZh uJpeez9viZ5uDy3+PGNv qYN3lEC3xY2nZjDaVnG6 HUntU827HtQsdXWd Bnapi7slh0bxdPt2DeUi YJZgvyOsqApjTZR9u5El Xr46Q8UqwUvtx4KeNwf5 tp16aJDum7J5kUJ3 B2PnRQKwbphbgEVheByf EB7aJAJrctkgZEXveM9e UURhV8y8GjDuWbY9AJjg O9GxtqH5RKZqbYNy VEmvCFP9M60gh2A0MHSb HCTrOLK1yPC3rZ4jnKtj bjogbGVmdDsgdmVydGlj YVgmBWkuJ848RXIm vSpbZVIavE8vJFOesIMl cBquLC6sBBFeiinvNpRW Fb0GBXCrIFoIFSkYSU1u RTwvdGQ+PHRkIHN0 lMulMQavKGZkgP2lMQWw Z1a0CsUtNmD9VZvmR0Ii ZTRduzylSz73fS0jJdSw EyK7EDbaA4ZjbfJ9 NJSqoTYjYCcsEMB8J21h u4Q7QFElUVEpQJD7jMV9 pV1gkLoofkakxDMqwKna dmVydGljYWwtYWxp R920TNNevBrtSxIyHtR6 YcA5BQF8W8LnUzt9ZVOp rEwnPY8irPJoKUgfIg9h vYguuBhvVN0dXYXf feomDJBboN8aUZGodAKv iKqgEU0yKGVczstly401 LrKdUFQ5ZEYcaRNhK8Hl sE2qQwKkZEKoYPLp E4XliLPzPWrpJ775BQxe VrI0CSDpqwZjL0FbKMUv wNhlHiH5d7B6Yx1pKkVH ZWFyczwvdGQ+PHRk VBM4wTjmKWhzZZTvmJ7f DKEgY6n0IdBzGiC0VTpt A0XvWVAbilymYc72rC6z CcJaCgW2ELhlI1At lwL1DQUnaOLiQJjdEXK5 B13gc8N7NQTiXLSgQEC0 lKJ2sA2pkAgsuqzjdUSt dDsgdmVydGljYWwt NZzoH864JFNytQihFsOr bWFsZTwvdGQ+PHRkIHN0 dBorZCjqDFMokH6jGKIp V8v6VhFhEvP4QThr X2BpLBRqbzynHb72hB4k LwXrQyX6XJiiF1KcgoJ7 FGJpwCTcQKkoSWL8K78k y3A3KASnGCGkBYS1 uXD0wB9oqIojmteonWRe dDsgdmVydGljYWwtYWxp I056VMTpeJynWcLzUUXa QD0weXgefWO+PC90 oo05A0QeOheaEwz9FDHo TBC1lRN6zB9xTBSwKFyh q9A2pTG9L0ZsguRjaa1t c9wcGKUtGTjhM01l tVPfn6B4CVMgjRI5IQDn tVyhDcKfsD89Ubf+PGNv hDvyr7LcAdbcp8okx1rb iQf6UbTeHGPjtwEx pEtjBJX1c7OaWs14S29s IHdpZHRoPSIzMCUiIHZh xFhokd2qnA2xEx4+PGNv qLB3rYL9fU3tBzIw DeV7HJhaD585EkLggFKq Fixhn3fac9jlxBj5PoEv VFOpeqQgeMhkQKE6q2Fv Qb97G1BypUjlv3Lb Juw2mp00wOXky7F8iZF4 E7BiITLoozldbXFxvCpk BC9iDKDjtxmtEFExpA4f CWAeN2a0JzGtNfZ1 SQmeE0ZdypY5WCLezBIc RAUeyTNJnM0xpwniu4im knwkObRmRPHrTOw1TPu2 LWFsaWduOiBsZWZ0 DkL7XDJ1lSUkhW1jzOhi jmnuoO3kHbs+UUk6o7ns zIUdGP9ciQH2KJ50XR50 kGOuo4D0lZA5D8Zm WLHyjtayfrskyNE3UQCo UCIuiD86Nx4swVhnTn9s RQHtCWS9WECfaMRvO1Cb fN6qHmZtIQVqSAMt D1OkmPWnUDfzF950YZih QtZ3LRCjvfYhK9OrWAUd eSmjOcP8r5F7Cp8IFX49 FV31LW79rCNam2J5 tMS9Z8UmFWSdtyjparzv kIJ5JDUmPLOqaZ39Ig2n bQxnHu2mRVMcZXY9YHFr mSYsJ9CqtY0cEzRl MCRjHYBwD0FuwKWlJHor M794XLorJbN2ADPqxkSj M8GsIYEbaIjqIiQ1q8S7 Lz4AGw62XN19TG90 rROum9H9jXR7O3MjAGRw zqyizrcnrHL2OIHhHSUr jJ47Vd1arNruHm1zPVSq PED2HMMskOAqU2Lw kJ2mLjHhCAFtOIOxT7Su eGPiMJszX898CAovEzW0 BAEivcSpY9WkKXAtvEtc JqR4e7F0Yi7SPFtm mnb4W4DqCylfiKC+PC90 BEIsDS37pUWnyOIqw7yj zYt8HeNvHLVoGOX9hItk OLrvj5PdSHUbB36c bGFw (more content not included)... Normal [facility] Consent for Treatmenton 08-22 Consent for Treatment [id number] #1.00CD:127 Normal [facility] Discharge Instructionson Discharge Instructions [id number] #1.00CD:127 Normal [facility] ED Clinical Summaryon 2021 ED Clinical Summary [place] [id number] ED Clinical Summary Person Information Name: MEENA LUCERO/New_Tang Age: 26 Years : 1995 Sex: Female Language: Taiwanese PCP: Charli LOPEZ Marital Status: Single Visit [...] 09/03/2022 15:51:51 09/03/2022 15:51:51 09/03/2022 15:51:51 ADDRESS: [address] [place] [id number] PHYS DOC NOTES: MEDICAL INFORMATION: Prescriptions Given: New Medications [facility], [address], [place] [id number], [phone] ondansetron (Zofran ODT 4 mg Tab-Dis) 1 Tablets By Mouth 3 times a day. Refills: 0. Medications to Continue with No Changes Other Medications multivitamin, ( Multivitamins with Vitamin B Complex, Vitamin C, Minerals and L-Methylfolate oral capsule) 1 Capsules By Mouth every day. Refills: 0. PATIENT EDUCATION INFORMATION: Instructions: Nausea and Vomiting, Adult Follow up: With: Address: When: Charli CARLSON [address] [place] [id number] Business (1) In 3 days 09/06/2022 DIAGNOSIS: Nausea & vomiting Normal [facility] ED Note-Physicianon 09-03-20 ED Note-Physician [...] TID, # 15 tab(s), Refills(s) 0, Pharmacy: [facility], 170, cm, 09/03/22 14:31:00 EDT, Height/Length [...] TID Follow-up With When Contact Information Charli ALDO In 3 days 09/06/2022 EDT [address] [place] [address]- Business (1) Additional Instructions: Patient Education Nausea and Vomiting, Adult Attestation Patient seen and evaluated by the physician assistant wrestling coach. Attending physician was present in the emergency department and supervised care. This visit was performed by both the physician and an APC. I performed all aspects of the MDM as documented. This report was transcribed using voice recognition software. Every effort was made to ensure accuracy, however, inadvertently computerized supervisor cell room mistakes may be present. Appropriate healthcare PPE [...] (09/03/22 14:49:0 (more content not included)... Normal [facility] Comment on above: Result Comment: [...] added (diluted fruit juice). ? Eat bland, yosk-gt-szbibr foods in small amounts as you are able. These foods include bananas, applesauce, rice, lean meats, toast, and crackers. ? Avoid fluids that contain a lot of sugar or caffeine, such as energy drinks, sports drinks, and soda. ? Avoid alcohol. ? Avoid spicy or fatty foods. General instructions ? Take okuy-ojy-yywqwas and prescription medicines only as told by your health care provider. ? Drink enough fluid to keep your urine pale yellow. ? Wash your hands often using soap and water. If soap and water are not available, use hand insole department worker. ? Make sure that all people in [...] and drinking to prevent dehydration. ? Take hftx-qym-cgjilpv and prescription medicines only as told by [...] 11/08/2006 Document Revised: 03/01/2020 Document Reviewed: 04/18/2019 [employer] Patient Education ? 2019 [employer] Normal [facility] ED Patient Summaryon 022 ED Patient Summary [place] [id number] Patient Discharge Instructions Person Information Name: MEENA LUCERO Age: 26 Years Arrival Date: 09/03/2022 14:27:10 Discharge Diagnosis: Nausea & vomiting Primary Care Physician: Charli LOPEZ Provider Information Primary Provider: Evan Moyer DO Advanced Mail Technician:Neil Meza PA-C The exam and treatment you received in the Emergency Department were for an urgent problem and are not intended as complete care. It is important that you follow up with a doctor, nurse practitioner, or physician?s assistant wrestling coach for ongoing care. If your symptoms become worse or you do not improve as expected and you are unable to reach your usual health care provider, you should return to the Emergency Department. We are available 24 hours a day. MEENA LUCERO has been given the following list of patient education materials, prescriptions and follow-up instructions: Follow-up Instructions: With: Address: When: [place] [address] Business (1) In 3 days 09/06/2022 In the event that this physician does not participate in your insurance network, please consult with your insurance company to find a nearby participating provider. Patient Education Materials: Nausea and Vomiting, Adult A MESSAGE TO ALL PATIENTS REGARDING OPIOIDS PRESCRIPTION OPIOIDS: WHAT YOU NEED TO KNOW Prescription opioids can be used to help relieve fgrnaxks-yb-ysbnbc pain and are often prescribed following a [...] be struggling with addiction, tell your health auto care center manager and ask for guidance or call [facility]?S National Helpline at [phone]-RMXL. v Source: US Dep (more content not included)... Normal [facility] U BetaHcg Qualon 09-03-2022 HCG.beta subunit (U) [Moles/Vol] Negative Normal [facility] Comment on above: Performed By: #### 2 [id number], [id number], [id number] ####[facility] [address] [place] [address] UA With Cult Reflexon 2021 Bacteria LM Ql (Urine sed) 2+ /HPF Abnormal Trace [facility] Comment on above: Performed By: #### 2 [id number], [id number], [id number] ####[facility] [address] [place] [address] Bilirubin Ql (U) Negative Normal Negative [facility] Comment on above: Performed By: #### 2 [id number], [id number], [id number] ####[facility] [address] [place] [address] Clarity (U) CLEAR Normal Clear [facility] Comment on above: Performed By: #### 2 4204707, [id number], 1705189 ####[facility] [address] [place] [address] Color (U) YELLOW Normal Yellow [facility] Comment on above: Performed By: #### 2 8963092, [id number], [id number] ####[facility] [address] [place] [address] Epithelial cells.squamous LM.HPF (Urine sed) [#/Area] 5-8 Normal 0-2 [facility] Comment on above: Performed By: #### 2 1122690, [id number], 9197083 ####[place] [address] Glucose Test strip (U) [Mass/Vol] Negative Normal Negative [facility] Comment on above: Performed By: #### 2 [id number], [id number], [id number] ####[facility] [address] [place] [address] Hemoglobin Ql (U) Negative Normal Negative [facility] Comment on above: Performed By: #### 2 0679006, 03934485, [id number] ####[facility] [address] [place] [address] Ketones (U) [Mass/Vol] Negative Normal Negative [facility] Comment on above: Performed By: #### 2 5507054, 20395898, 8975298 ####[facility] [address] [place] [address] [place].plasma/Lit hium.RBC (Bld) [Mass ratio] 0-3 Normal 0-3 [facility] Comment on above: Performed By: #### 2 9940218, [id number], 9040164 ####[facility] [address] [place] [address] Mucus Ql (Urine sed) 1+ Normal [facility] Comment on above: Performed By: #### 2 6734628, [id number], 0874058 ####[address] [address] Nitrite Ql (U) Negative Normal Negative [facility] Comment on above: Performed By: #### 2 5093441, 26262524, 1177435 ####[place] [address] pH (U) 5.5 [pH] Invalid Interpretation Code 5.0-9.0 [facility] Comment on above: Performed By: #### 2 9025034, 07101557, 9776883 ####[place] [address] Protein (U) [Mass/Vol] Negative Normal Negative [facility] Comment on above: Performed By: #### 2 0227409, 25868252, 3193919 ####[place] [address] Specific gravity (U) [Rel density] >=1.030 Invalid Interpretation Code 1.005-1.030 [facility] Comment on above: Performed By: #### 2 5427267, 93787690, 7026368 ####[place] [address] Type of Urine collection method Clean Catch Normal [facility] Comment on above: Performed By: #### 2 3081466, [id number], 7381144 ####[place] [address] Urobilinogen Qn (U) 0.2 {Elver'U}/dL Normal 0.0-1.0 [facility] Comment on above: Performed By: #### 2 5825792, 47114809, 0319346 ####[address] [address] WBC Auto Ql (U) Negative Normal Negative [facility] Comment on above: Performed By: #### 2 1321596, 50338102, 7547402 ####[facility] [address] [place] [address] WBC LM.HPF (Urine sed) [#/Area] 0-5 Normal 0-5 [facility] Comment on above: Performed By: #### 2 3106399, 03141157, 9784082 ####[facility] [address] [place] [address] XR WRIST LEFT (MIN 3 VIEWS)o n 06-19-2022 Normal left wrist. [facility] EXAM: XR WRIST LEFT (MIN 3 VIEWS) HISTORY: M25.532. 26-year-old female, left wrist pain. COMPARISON: None. TECHNIQUE: Three views left wrist. FINDINGS: The radiocarpal joint and wrist are normal. Normal scapholunate distance. No erosion or chondrocalcinosis. [facility] Mauro Anton Jr., MD - 06/19/2022 EXAM: XR WRIST LEFT (MIN 3 VIEWS) HISTORY: M25.532. 26-year-old female, left wrist pain. COMPARISON: None. TECHNIQUE: Three views left wrist. FINDINGS: The radiocarpal joint and wrist are normal. Normal scapholunate distance. No erosion or chondrocalcinosis. IMPRESSION: Normal left wrist. 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 pain has been constant for about 1 week now. History of Present Illness Pt presents today to [facility] care. Previous pt of [facility] in [place]. Concerned today about left wrist pain which started about 1 yr ago; pain has worsened over the last week. 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 Carries everything in her left hand. Right handed. Pain location: medial martinez hand, radiating to wrist Pain description: shooting Pain rated: 2/10, 7/10 with certain movements. 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 Negative Tinels and DeQuervians. + Phalens. Farm Product Purchaser strength equal. Neurologic: Cranial nerves II-XII grossly intact. Skin: [place], warm and dry. No rashes, ulcerations, or [...] day(s), # 30 tab(s), Refills(s) 1, Pharmacy: [email or web address], 170, cm, 06/01/22 12:55:00 EDT, Height/Length Dosing, 91.3, kg, 06/01/22 12:55:00 EDT, [place] D[place] [facility] [place] 2. BMI 31.0-31.9,adult (Z68.31: Body mass index [BMI] 31.0-31.9, adult) The standard range for ages 18 and older is >=18.5 and < 25 kg/m2. Your BMI today was above this range, this falls in the obese category and there are medical benefits to weight loss. We can offer counselling, referral, and/or medical support in addressing this problem. Visit [email or web address] for useful information to help make better [...] unspecified fo (more content not included)... [facility] Comment on above: Result Comment: Elec tronically Signed By: Meena Carl CNP.br\Date and Time Signed: 06/01/22 13:16 EDT Patient [...] height. This can be done either in [place] or metric measurements. Note that charts are available to help you find your BMI quickly and easily without having to do these calculations yourself. To calculate your BMI in [place] measurements, your health care provider will: [...] problems. ? BMI can be measured using [place]ese measurements or metric measurements. ? To interpret [...] Reviewed: 09/21/2018 Elsevier Patient Education ? 2019 [employer] [facility] Carpal Tunnel Syndrome Carpal tunnel [...] Having a job, such as being a general manager in training or a legal cashier, that requires you to repeatedly move [...] and midd (more content not included)... [facility] Physician Referralon 022 Physician Referral [id number] [facility] Vital Signs Date Time Vital Sign Value Performing Clinician Ayad lozoya 12-19-2024 10:19-0500 Body mass index (BMI) [Ratio] 37.44 kg/m2 Tapjoy DO Work Phone: [facility] [employer] 12-19-2024 10:19-0500 Body weight 102.06 kg Tapjoy DO Work Phone: [facility] 12-19-2024 10:19-0500 Diastolic blood pressure 76 mm[Hg] Tapjoy DO Work Phone: [facility] 12-19-2024 10:19-0500 Systolic blood pressure 122 mm[Hg] [employer] DO Work Phone: [facility] 11-20-2024 09:42-0500 Body mass index (BMI) [Ratio] 36.61 kg/m2 Genevieve Calderon PA Work Phone: [facility] 11-20-2024 09:42-0500 Body weight 99.79 kg Genevieve Calderon PA Work Phone: [facility] 11-20-2024 09:42-0500 Diastolic blood pressure 74 mm[Hg] Genevieve Calderon PA Work Phone: [facility] 11-20-2024 09:42-0500 Systolic blood pressure 120 mm[Hg] Genevieve Calderon PA Work Phone: [facility] 10-17-2024 13:10-0500 Body mass index (BMI) [Ratio] 35.35 kg/m2 Gary Enriqueta DO Work Phone: [facility] 10-17-2024 13:10-0500 Body weight 96.34 kg Gary Enriqueta DO Work Phone: [facility] 10-17-2024 13:10-0500 Diastolic blood pressure 70 mm[Hg] Gary Enriqueta DO Work Phone: [facility] 10-17-2024 13:10-0500 Systolic blood pressure 120 mm[Hg] Gary Enriqueta DO Work Phone: [facility] 09-18-2024 11:15-0400 Body mass index (BMI) [Ratio] 35.2 kg/m2 Gary Enriqueta DO Work Phone: [facility] 09-18-2024 11:15-0400 Body weight 95.94 kg Gary Enriqueta DO Work Phone: [facility] 09-18-2024 11:15-0400 Diastolic blood pressure 74 mm[Hg] Gary Enriqueta DO Work Phone: [facility] 09-18-2024 11:15-0400 Systolic blood pressure 122 mm[Hg] Gary Enriqueta DO Work Phone: [facility] 08-18-2024 10:28-0400 Body mass index (BMI) [Ratio] 34.95 kg/m2 [facility] 08-18-2024 10:28-0400 Body weight 95.25 kg [facility] Nurse [facility] 01-10-2023 14:29-0500 Body height 165.1 cm Fei Canales MD Work Phone: [employer] 01-10-2023 14:29-0500 Body mass index (BMI) [Ratio] 34.35 kg/m2 Fei Canales MD Work Phone: [employer] 01-10-2023 14:29-0500 Body temperature 98.49 [degF] Fei Canales MD Work Phone: [employer] 01-10-2023 14:29-0500 Body weight 93.62 kg Fei Canales MD Work Phone: [employer] 01-10-2023 14:29-0500 Diastolic blood pressure 79 mm[Hg] Fei Canales MD Work Phone: [employer] 01-10-2023 14:29-0500 Heart rate 75 /min Fei Canales MD Work Phone: [employer] 01-10-2023 14:29-0500 Respiratory rate 16 /min Fei Canales MD Work Phone: [employer] 01-10-2023 14:29-0500 SaO2% (BldA) [Mass fraction] 99 % Fei Canales MD Work Phone: [employer] 01-10-2023 14:29-0500 Systolic blood pressure 140 mm[Hg] Fei Canales MD Work Phone: [employer] 12-08-2022 11:51-0500 Blood Pressure Location Keyon DAVIS [facility] 12-08-2022 11:51-0500 Body temperature 98.24 [degF] Keyon DAVIS [facility] 12-08-2022 11:51-0500 Diastolic blood pressure 78 mm[Hg] Cordellorin DAVIS [facility] 12-08-2022 11:51-0500 Heart rate 84 /min Keyon DAVIS [facility] 12-08-2022 11:51-0500 Respiratory rate 16 /min Cordellorin DAVIS [facility] 12-08-2022 11:51-0500 SaO2% (BldA) [Mass fraction] 100 % Keyon DAVIS [facility] 12-08-2022 11:51-0500 Systolic blood pressure 114 mm[Hg] Keyon DAVIS [facility] 12-04-2022 16:32-0500 Body mass index (BMI) [Ratio] 33.66 kg/m2 Jason Tracy MD Work Phone: [employer] 12-04-2022 16:32-0500 Body temperature 98.49 [degF] Jason Tracy MD Work Phone: [facility] [employer] 12-04-2022 16:32-0500 Body weight 91.76 kg Jason Tracy MD Work Phone: [employer] 12-04-2022 16:32-0500 Diastolic blood pressure 75 mm[Hg] Jason Tracy MD Work Phone: [employer] 12-04-2022 16:32-0500 Heart rate 91 /min Jason Tracy MD Work Phone: [facility] [employer] 12-04-2022 16:32-0500 Respiratory rate 16 /min Jason Tracy MD Work Phone: [facility] [employer] 12-04-2022 16:32-0500 SaO2% (BldA) [Mass fraction] 99 % Jason Tracy MD Work Phone: [facility] [employer] 12-04-2022 16:32-0500 Systolic blood pressure 123 mm[Hg] Jason Tracy MD Work Phone: [facility] 06-01-2022 12:50-0400 Blood Pressure Location Meena Carl [facility] 06-01-2022 12:50-0400 Body temperature 96.98 [degF] Meena Carl [facility] 06-01-2022 12:50-0400 Diastolic blood pressure 60 mm[Hg] Meena Aguilarell [facility] 06-01-2022 12:50-0400 Heart rate 88 /min Meena Carl [facility] 06-01-2022 12:50-0400 SaO2% (BldA) [Mass fraction] 97 % Meena Carl [facility] 06-01-2022 12:50-0400 Systolic blood pressure 122 mm[Hg] Meena Aguilarell [facility] 09-14-2021 10:15-0400 Body mass index (BMI) [Ratio] 31.62 kg/m2 Keyon Wilkinson MD Work Phone: [employer] Work Phone: 09-14-2021 10:15-0400 Body weight 86.18 kg Keyon Wilkinson MD Work Phone: [employer] Work Phone: 09-14-2021 10:14-0400 Body height 165.1 cm Keyon Wilkinson MD Work Phone: [employer] Work Phone: 09-14-2021 10:14-0400 Body temperature 98.2 [degF] Keyon Wilkinson MD Work Phone: [employer] Work Phone: 09-14-2021 10:14-0400 Diastolic blood pressure 93 mm[Hg] Keyon Wilkinson MD Work Phone: [employer] Work Phone: 09-14-2021 10:14-0400 Heart rate 91 /min Keyon Wilkinson MD Work Phone: [employer] Work Phone: 09-14-2021 10:14-0400 Respiratory rate 20 /min Keyon Wilkinson MD Work Phone: [employer] Work Phone: 09-14-2021 10:14-0400 SaO2% (BldA) [Mass fraction] 96 % Keyon Wilkinson MD Work Phone: [employer] Phone: 09-14-2021 10:14-0400 Systolic blood pressure 131 mm[Hg] Keyon Wilkinson MD Work Phone: [employer] Work Phone: Encounters Encounter Date Encounter Type Care Provider Facility Start: 01-29-2025 [facility] Start: 01-15-2025 End: 01-15-2025 [facility] Start: 01-15-2025 End: 01-15-2025 Subsequent hospital visit by physician John Partida DO Work Phone: [facility] Comment on above: Arrived Start: 01-12-2025 End: 01-12-2025 [facility] Start: 01-12-2025 End: 01-12-2025 Subsequent hospital visit by physician John Partida DO Work Phone: [facility] Comment on above: Arrived Start: 01-10-2025 End: 01-10-2025 [facility] Start: 01-10-2025 End: 01-10-2025 Subsequent hospital visit by physician John Partida DO Work Phone: [facility] Comment on above: Arrived Start: 01-05-2025 End: 01-05-2025 [facility] Start: 01-05-2025 End: 01-05-2025 Subsequent hospital visit by physician John Partida DO Work Phone: [facility] Comment on above: Arrived Start: 01-02-2025 End: 01-02-2025 [facility] Start: 01-02-2025 End: 01-02-2025 Subsequent hospital visit by physician John Partida DO Work Phone: [facility] Comment on above: Arrived Start: 12-29-2024 End: 12-29-2024 [facility] Start: 12-29-2024 End: 12-29-2024 Subsequent hospital visit by physician John Partida DO Work Phone: [facility] Comment on above: Arrived Start: 12-27-2024 End: 12-27-2024 [facility] Start: 12-27-2024 End: 12-27-2024 Subsequent hospital visit by physician John Partida DO Work Phone: [facility] Comment on above: Arrived Start: 12-25-2024 End: 12-25-2024 Clinisync Result Encounter Gary Robison DO Work Phone: [facility] Unsolicited Start: 12-25-2024 End: 12-25-2024 Clinisync Result Encounter Gary Enriqueta DO Work Phone: [facility] Unsolicited Start: 12-22-2024 End: 12-22-2024 [facility] Start: 12-22-2024 End: 12-22-2024 Subsequent hospital visit by physician John Partida DO Work Phone: [facility] Comment on above: Arrived Start: 12-20-2024 End: 12-20-2024 [facility] Start: 12-20-2024 End: 12-20-2024 Subsequent hospital visit [...] ENRIQUETA Not Available Start: 12-15-2024 End: 12-15-2024 [facility] Start: 12-13-2024 End: 12-13-2024 [facility] Start: 12-13-2024 End: 12-13-2024 Subsequent hospital visit by physician John Partida DO Work Phone: [facility] Comment on above: Arrived Start: 12-06-2024 End: 12-06-2024 ambulatory JOHN PARTIDA [facility] Start: 12-06-2024 End: 12-06-2024 Subsequent hospital visit by physician John Partida DO Work Phone: [facility] Comment on above: Arrived Start: 11-20-2024 End: 11-20-2024 [employer] Genevieve MARIA Work Phone: [facility] Start: 11-20-2024 End: 11-20-2024 [employer]amboo flowsheet Genevieve MARIA Work Phone: [facility] Start: 11-20-2024 End: 11-20-2024 ambulatory GENEVIEVE CALDERON Not Available Start: 11-20-2024 End: 11-20-2024 Office [...] Start: 10-17-2024 End: 10-17-2024 Patient encounter status aGry Robison DO Work Phone: [facility] Start: 10-12-2024 End: 10-12-[address] [facility] Start: 10-12-2024 End: 10-12-2024 Subsequent hospital visit by physician John Partida DO Work Phone: [facility] Comment on above: Arrived Start: 10-10-2024 End: 10-10-2024 [facility] Start: 10-10-2024 End: 10-10-2024 Subsequent hospital visit by physician John Partida DO Work Phone: [facility] Comment on above: Arrived Start: 10-04-2024 End: 10-04-2024 Subsequent hospital visit by physician John Ruiz Phone: [facility] Start: 10-04-2024 [facility] Start: 09-18-2024 End: 09-18-2024 Office outpatient visit 15 minutes Gary Robison DO Work Phone: [facility] Comment on above: First trimester preg wily; 11 weeks gestation of ; Encounter for sterilization education Start: 09-18-2024 End: 09-18-2024 ambulatory GARY ALVAREZZIO Not Available Start: 09-11-2024 End: 09-11-2024 [employer] [...] 08-07-2024 End: 08-07-2024 Clinisync Result Encounter Gary Alvarezzio DO Work Phone: [facility] Unsolicited Start: 08-07-2024 End: 08-07-2024 ambulatory [facility] Josh [facility] Start: 08-07-2024 End: 08-07-2024 Subsequent hospital visit by physician Óscar Villagran DNP Work Phone: [facility] Start: 08-02-2024 End: 08-02-2024 Clinisync Result Encounter Gary Enriqueta DO Work Phone: [facility] Unsolicited Start: 08-02-2024 End: 08-02-2024 Clinisync Result Encounter Gary Enriqueta DO Work Phone: [facility] Unsolicited Start: 08-02-2024 End: 08-02-2024 [facility] Start: 07-31-2024 End: 07-31-2024 Clinisync Result Encounter Gary Alvarezzio DO Work Phone: [facility] Unsolicited Start: 07-31-2024 End: 07-31-2024 Clinisync Result Encounter Gary Alvarezzio DO Work Phone: [facility] Unsolicited Start: 07-31-2024 End: 07-31-2024 ambulatory [facility] Start: 07-31-2024 End: 07-31-2024 Subsequent hospital visit by physician Óscar Villagran DNP Work Phone: [facility] Start: 07-29-2024 End: 07-29-2024 Clinisync Result Encounter Gary Alvarezzio DO Work Phone: [facility] Unsolicited Start: 07-29-2024 End: 07-29-2024 Clinisync Result Encounter Gary Enriqueta DO Work Phone: [facility] Unsolicited Start: 07-29-2024 End: 07-29-2024 [facility] Start: 07-27-2024 End: 07-27-2024 Clinisync Result Encounter Gary Enriqueta DO Work Phone: [facility] Unsolicited Start: 07-27-2024 End: 07-27-2024 Clinisync Result Encounter Gary Enriqueta DO Work Phone: [facility] Unsolicited Start: 07-27-2024 End: 07-27-2024 [facility] Start: 07-27-2024 End: 07-27-2024 Subsequent hospital visit by physician John Partida DO Work Phone: [facility] Comment on above: Arrived Start: 07-25-2024 End: 07-25-2024 [facility] Start: 07-21-2024 End: 07-21-2024 [facility] Start: 07-19-2024 End: 07-19-2024 [facility] Start: 07-13-2024 End: 07-13-2024 Subsequent hospital visit by physician John Partida DO Work Phone: [facility] Comment on above: Arrived Start: 07-13-2024 End: 07-13-2024 [facility] Start: 07-06-2024 End: 07-06-2024 Subsequent hospital visit by physician John Partida DO Work Phone: [facility] Start: 06-29-2024 End: 06-29-2024 [facility] Start: 06-29-2024 End: 06-29-2024 Subsequent hospital visit by physician John Partida DO Work Phone: [facility] Comment on above: Arrived Start: 06-26-2024 End: 06-26-[address] [facility] Start: 06-22-2024 End: 06-22-2024 [facility] Start: 06-20-2024 End: 06-20-2024 ambulatory [facility] Start: 06-16-2024 End: 06-16-2024 ambulatory [facility] Start: 06-14-2024 End: 06-14-2024 ambulatory [facility] Start: 06-08-2024 End: 06-08-2024 [facility] Start: 06-08-2024 End: 06-08-2024 [facility] Start: 05-22-2024 End: 05-24-2024 ambulatory [facility] Start: 05-22-2024 End: 05-24-2024 Subsequent hospital visit by physician Óscar Villagran DNP Work Phone: [facility] Start: 03-06-2024 End: 03-06-2024 ambulatory GARYMallorie CAMPBELLO Not Available Start: 03-04-2024 End: 03-04-2024 [facility] Start: 03-04-2024 [facility] Start: 04-09-[address] NONE LISTED REQUEST Facility: Start: 01-29-2023 End: 01-31-2023 Subsequent hospital visit by physician [facility] Comment on above: Other closed fractur e of proximal end of right fibula with routine healing, subsequent encounter Start: 01-29-2023 End: 01-31-2023 Subsequent hospital visit by physician Keyon Davis MD Work Phone: [facility] Start: 01-10-2023 End: 01-10-2023 Emergency department patient visit Fei Canales MD Work Phone: [facility] ED Comment on above: Injury of right ankl e, initial encounter (Primary Dx) Start: 12-08-2022 End: 12-09-2022 ambulatory Keyon DAVIS Facility:[facility] Start: 12-08-2022 End: 12-08-2022 Patient encounter procedure Keyon DAVIS [facility] Start: 12-04-2022 End: 12-04-2022 Emergency department patient visit Jason Tracy MD Work Phone: [facility] ED Comment on above: Viral illness (Prima ry Dx) Start: 09-03-2022 End: 09-03-2022 Emergency department patient visit Evan Moyer [facility] Start: 06-19-2022 End: 06-21-2022 Subsequent hospital visit by physician [facility] Comment on above: Left wrist pain Start: 06-01-2022 End: 06-02-2022 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 Meena Carl Facility:[facility] Start: 06-01-2022 End: 06-01-2022 Patient encounter procedure Meena Carl [facility] Start: 05-28-2022 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 Meena Carl Faci lity:[facility] Start: 09-14-2021 End: 09-14-2021 Emergency department patient visit Keyon Wilkinson MD Work Phone: [facility] ED Comment on above: Subacute bronchitis (Primary Dx) Procedures Date Procedure Procedure Detail Performing Clinician Start: 12-25-2024 ALL PLATELET COUNT Core y Enriqueta DO Work Phone: Start: 12-19-2024 Urnls dip stick/tabl et rgnt [...] 60 yrs+ (1 - 1-dose 75+ series) [facility] Start: 2054 Respiratory Syncytia l Virus (RSV) or age 60 yrs+ (1 - 1-dose 60+ series) Respiratory Syncytial Virus (RSV) or age 60 yrs+ (1 - 1-dose 60+ series) [facility] Start: 05-26-2028 Screening for malign ant neoplasm of cervix HPV/[facility] Start: 10-17-2027 Screening for malign ant neoplasm of cervix [facility] Start: 03-14-2025 Depression Screen Depression Screen [facility] Start: 01-29-2025 End: 01-29-2025 Patient encounter procedure 01/29/2025 9:00 AM EDT Appointment [facility] [address] [place] [address] John Partida, DO [address] [place] [address] Clara Castrejon, PT *[employer] 15 of 30 Sacral Pain, [facility] Comment on above: *[employer] 15 of 30 Sacral Pain, Start: 01-18-2025 End: 01-18-2025 Patient encounter procedure 01/18/2025 8:00 AM EST Appointment [facility] [address] [place] [address] John Partida, DO [address] [facility] [place] [address] Clara Castrejon, PT *[employer] 14 of 30 Sacral Pain, [facility] Comment on above: *[employer] 14 of 30 Sacral Pain, Start: 01-16-2025 End: 01-16-2025 Patient encounter procedure 01/16/2025 8:40 AM EST Routine [facility] [address] [id number] Gary Robison, DO [address] [facility] [address] [place] [address] [facility] Start: 01-16-2025 End: 01-16-2025 Professional / ancillary services management 01/16/2025 8:00 AM EST Ancillary Procedure [facility] [address] [place] [id number] [facility] Start: 01-15-2025 End: 01-15-2025 Patient encounter procedure 01/15/2025 9:00 AM EST Appointment [facility] [address] [place] [address] John Partida, DO [address] [place] [address] lCara Castrejon, PT *[employer] 13 of 30 Sacral Pain, [facility] Comment on above: *[employer] 13 of 30 Sacral Pain, Start: 01-12-2025 End: 01-12-2025 Patient encounter procedure [facility] Comment on above: *[employer] 12 of 30 Sacral Pain, Start: 01-10-2025 End: 01-10-2025 Patient encounter procedure [facility] Comment on above: *[employer] 11 of 30 Sacral Pain, Start: 01-05-2025 End: 01-05-2025 Patient encounter procedure [facility] Comment on above: *[employer] 9 of 30 Sacral Pain, *[employer] 10 of 30 Sacral Pain, Start: 01-02-2025 Subsequent hospital visit by physician 01/02/2025 11:15 AM EST Hospital Encounter [facility] [address] [place] [address] John Partida, DO [address] [place] [address] Lauryn Edwards [facility] Start: 01-02-2025 End: 01-02-2025 Patient encounter procedure 01/02/2025 8:00 AM EST Appointment [facility] [address] [place] [address] John Partida, DO [address] [place] [address] Clara Castrejon, PT *[employer] 8 of 30 Sacral Pain, [facility] Comment on above: *[employer] 8 of 30 Sacral Pain, Start: 12-29-2024 End: 12-29-2024 Patient encounter procedure 12/29/2024 11:15 AM EST Appointment [facility] [address] [place] [address] John Partida, DO [address] [place] [address] Clara Castrejon, PT *[employer] 7 of 30 Sacral Pain, [facility] Comment on above: *[employer] 7 of 30 Sacral Pain, Start: 12-27-2024 End: 12-27-2024 Patient encounter procedure 12/27/2024 9:00 AM EST Appointment [facility] [address] [place] [address] John Partida, DO [address] [facility] [place] [address] Austen Puga PTA *[employer] 6 of 30 Sacral Pain, [facility] Comment on above: *[employer] 6 of 30 Sacral Pain, Start: 12-22-2024 End: 12-22-2024 Patient encounter procedure 12/22/2024 8:00 AM EST Appointment [facility] [address] [place] [address] John Partida, DO [address] [place] [address] Austen Puga PTA *[employer] 5 of 30 Sacral Pain, [facility] Comment on above: *[employer] 5 of 30 Sacral Pain, Start: 12-20-2024 End: 12-20-2024 Patient encounter procedure 12/20/2024 9:00 AM EST Appointment [facility] [address] [place] [address] John Partida, DO [address] [place] [address] Clara Castrejon, PT *[employer] 4 of 30 Sacral Pain, [facility] Comment on above: *[employer] 4 of 30 Sacral Pain, Start: 12-19-2024 End: 12-19-2024 Patient encounter procedure 12/19/2024 9:50 AM EST Routine [facility] [address] [place] [address] Gary Robison DO [address] [facility] [place] [address] [facility] Start: 12-15-2024 End: 12-15-2024 Patient encounter procedure 12/15/2024 8:15 AM EST Appointment [facility] [address] [facility] [place] [address] John Partida, DO [address] [facility] [place] [address] Clara Castrejon, PT *[employer] 3 of 30 Sacral Pain, [facility] Comment on above: *[employer] 3 of 30 Sacral Pain, Start: 12-13-2024 End: 12-13-2024 Patient encounter procedure 12/13/2024 9:45 AM EST Appointment [facility] [address] [place] [address] John Partida, DO [address] [place] [address] Trinity Browning *[employer] 2 of 30 Sacral Pain, [facility] Comment on above: *[employer] 2 of 30 Sacral Pain, Start: 2024 Screening for malign ant neoplasm of cervix [facility] Start: 11-20-2024 End: 11-20-2025 CBC panel - Blood by Automated count CBC Lab Routine Diabetes mellitus screening Expected: 11/20/2024 (Approximate), Expires: 11/20/2025 [facility] Work Phone: Comment on above: Expected: 11/20/2024 (Approximate), Expires: 11/20/2025 Start: 11-20-2024 End: 11-20-2025 Measurement of glucose 1 hour after glucose challenge for glucose tolerance test Glucose tolerance, 1 hour Lab Routine Diabetes mellitus screening Expected: 11/20/2024 (Approximate), Expires: 11/20/2025 [facility] Comment on above: Expected: 11/20/2024 (Approximate), Expires: 11/20/2025 Start: 11-20-2024 End: 11-20-2024 Patient encounter procedure 11/20/2024 9:20 AM EST Routine [facility] [address] [place] [id number] Genevieve Calderon PA [address] [facility] [place] [address] [facility] Start: 11-20-2024 End: 11-20-2024 Professional / ancillary services management 11/20/2024 8:00 AM EST Ancillary Procedure [facility] [address] [id number] [facility] Start: 10-17-2024 End: 01-17-2025 Alpha fetoprotein, maternal Alpha fetoprotein, maternal Lab Routine 15 weeks gestation of Expected: 10/17/2024 (Approximate), Expires: 01/17/2025 [facility] Work Phone: Comment on above: [...] AM EST Routine [facility] [address] [place] [id number] Gary Robison DO [address] [facility] [address] [place] [address] [facility] Start: 10-17-2024 End: 10-17-2024 Patient encounter procedure 10/17/2024 8:15 AM EST Appointment [facility] [address] [place] [address] John Partida, DO [address] [place] [address] Trinity Browning 16 of 30 Sacral Pain, [facility] Comment on above: 16 of 30 Sacral Pain , Start: 10-12-2024 End: 10-12-2024 Patient encounter procedure 10/12/2024 8:00 AM EST Appointment [facility] [address] [place] [address] John Partida, DO [address] [place] [address] Clara Castrejon, PT 15 of 30 Sacral Pain, [facility] Comment on above: 15 of 30 Sacral Pain , Start: 10-10-2024 End: 10-10-2024 Patient encounter procedure 10/10/2024 9:30 AM EST Appointment [facility] [address] [place] [address] John Partida, DO [address] [place] [address] Clara Castrejon, PT 14 of 30 Sacral Pain, [facility] Comment on above: 14 of 30 Sacral Pain , Start: 09-18-2024 End: 09-18-2024 Patient encounter procedure 09/18/2024 10:40 AM EDT Routine [facility] [address] [place] [phone] Gary Robison DO [address] [place] [address] [facility] Start: 08-18-2024 End: 08-18-2025 [...] first trimester Expected: 08/18/2024 (Approximate), Expires: 08/18/2025 [facility] Comment on above: Expected: 08/18/2024 (Approximate), Expires: 08/18/2025 Start: 08-18-2024 End: 08-18-2025 US Pelvis transvaginal US OB transvaginal Imaging Routine Missed menses Expected: 08/18/2024 (Approximate), Expires: 08/18/2025 [facility] Comment on above: Expected: 08/18/2024 (Approximate), Expires: 08/18/2025 Start: 08-18-2024 End: 08-18-2024 ambulatory 08/18/2024 9:30 AM EDT Initial [facility] [address] [place] [id number] [facility] Start: 08-18-2024 End: 08-18-2024 Professional / ancillary services management 08/18/2024 9:00 AM EDT Ancillary Procedure [facility] [address] [place] [id number] [facility] Start: 07-23-2024 COVID-19 Vaccine () COVID-19 Vaccine () [facility] Start: 07-23-2024 COVID-19 Vaccine ( season) COVID-19 Vaccine ( season) [facility] Start: 07-23-2024 Influenza vaccination Influenza Vacc ine (#1) [facility] Start: 07-19-2024 End: 07-19-2024 Patient encounter procedure 07/19/2024 8:00 AM EDT Appointment [facility] [address] [place] [id number] John Partida, [address] [place] [address] Asia Mix, PT [address] [place] [address] [facility] Start: 07-13-2024 End: 07-13-2024 Patient encounter procedure [facility] Start: 07-06-2024 End: 07-06-2024 Patient encounter procedure 07/06/2024 9:00 AM EDT Appointment [facility] [address] [place] [address] John Partida, [address] [place] [address] Asia Mix, PT [address] [place] [address] [facility] Start: 06-22-2024 Influenza vaccination Flu vaccine (# 1) [facility] Start: 07-23-2023 COVID-19 Vaccine ( season) COVID-19 Vaccine ( season) [facility] Start: 07-23-2022 Influenza vaccination Flu vaccine (# 1) [facility] Start: 06-22-2022 Influenza vaccination Flu vaccine (# 1) [facility] Start: 07-23-2021 Influenza vaccination Flu vaccine (# 1) [employer] Phone: Start: 08-02-2017 DTaP/Tdap/Td vaccine (2 - Td or Tdap) DTaP/Tdap/Td vaccine (2 - Td or Tdap) [facility] Start: 2015 Screening for malign ant neoplasm of cervix Pap smear [facility] Start: 2013 DTaP/Tdap/Td vaccine (1 - Tdap) DTaP/Tdap/Td vaccine (1 - Tdap) [facility] Start: 2013 Hepatitis B vaccine (1 of 3 - 19+ 3-dose series) Hepatitis B vaccine (1 of 3 - 19+ 3-dose series) [facility] Start: 2012 Hepatitis C screening Hepatitis C sc reen [facility] Start: 2009 HIV screening HIV screen [facility] Start: 2006 COVID-19 Vaccine (1) COVID-19 Vaccin e (1) [facility]: Start: 2006 [facility] Screen [facility] Start: 2005 HPV vaccine (1 - 2-d ose series) HPV vaccine (1 - 2-dose series) [facility]: Start: 1998 Varicella vaccine (2 of 2 - 2-dose childhood series) Varicella vaccine (2 of 2 - 2-dose childhood series) [facility] Start: 1995 Varicella vaccine (1 of 2 - 2-dose childhood series) Varicella vaccine (1 of 2 - 2-dose childhood series) [facility] Phone: Start: 05-30-1995 COVID-19 Vaccine (#1) COVID-19 Vacci ne (#1) [facility] Start: 1994 Hepatitis B vaccine (1 of 3 - 3-dose series) Hepatitis B vaccine (1 of 3 - 3-dose series) [facility] Start: 1994 Hepatitis C screening Hepatitis C sc reen [facility] [employer] Phone: Bacteria identified in Urine by Culture Urine culture Microbiology Routine Missed menses Ordered: 08/18/2024 [facility] Comment on above: Ordered: 08/18/2024 CBC W Auto Different ial panel - Blood CBC and differential Lab Routine Missed menses , unspecified gestational age Ordered: 08/18/2024 [facility] Comment on above: Ordered: 08/18/2024 CHLAMYDIA TRACHOMATI S (GENITO/STI) CHLAMYDIA TRACHOMATIS (GENITO/STI) Lab Routine Vaginal discharge STD exposure Ordered: 10/17/2024 [facility] Comment on above: Ordered: 10/17/2024 Cytology Cervical or vaginal smear or scraping study Pap Smear Pathology and Cytology Routine Encounter for gynecological examination without abnormal finding Ordered: 10/17/2024 [facility] Comment on above: Ordered: 10/17/2024 Hemoglobin A1c/Hemoglobin.total in Blood Hemoglobin A1c Lab Routine Missed menses , unspecified gestational age Ordered: 08/18/2024 [facility] Comment on above: Ordered: 08/18/2024 Hepatitis B virus surface Ag [Presence] in Serum or Plasma by Immunoassay Hepatitis B surface antigen Lab Routine Missed menses , unspecified gestational age Ordered: 08/18/2024 [facility] Comment on above: Ordered: 08/18/2024 Hepatitis C virus Ab [Presence] in Serum or Plasma by Immunoassay Hepatitis C antibody Lab Routine Missed menses , unspecified gestational age Ordered: 08/18/2024 [facility] Comment on above: Ordered: 08/18/2024 HIV-1/HIV-2 antigen/antibody combination immunoassay HIV-1 and HIV-2 antibodies Lab Routine Missed menses , unspecified gestational age Ordered: 08/18/2024 [facility] Comment on above: Ordered: 08/18/2024 Neisseria gonorrhoea e DNA [Presence] in Unspecified specimen by WADE with probe detection Neisseria gonorrhea DNA probe, direct Lab Routine Vaginal discharge STD exposure Ordered: 10/17/2024 [facility] Comment on above: Ordered: 10/17/2024 Platelets [#/volume] in Blood Platelet count Lab Routine Low platelet count (CMS/HCC) Ordered: 12/19/2024 [facility] Work Phone: Comment on above: Ordered: 12/19/2024 Reagin Ab [Presence] in Serum by RPR RPR Lab Routine Missed menses , unspecified gestational age Ordered: 08/18/2024 [facility] Comment on above: Ordered: 08/18/2024 Rubella antibody, IgG Rubella an tibody, IgG Lab Routine Missed menses , unspecified gestational age Ordered: 08/18/2024 [facility] Comment on above: Ordered: 08/18/2024 SURESWAB(R) ADVANCED VAGINITIS PLUS, TMA SURESWAB(R) ADVANCED VAGINITIS PLUS, TMA Pathology and Cytology Routine Vaginal discharge STD exposure Ordered: 10/17/2024 [facility] Comment on above: Ordered: 10/17/2024 Immunizations Immunization Date Immunization Notes Care Provider Jaci masterson 02-16-2008 Hep A, unspecified formulation Meena Carl [facility] 08-02-2007 Hep A, unspecified formulation Meena Carl [facility] 08-02-2007 meningococcal ACWY vaccine, unspecified formulation Meena Aguilarell [facility] 08-02-2007 tetanus toxoid, reduced diphtheria toxoid, and acellular pertussis vaccine, adsorbed Meena Carl [facility] 08-19-2000 DTaP, unspecified formulation Meena Aguilarell [facility] 08-19-2000 measles, mumps and rubella virus vaccine Meenazachariah Carl [facility] 10-10-1997 varicella virus vaccine Meena Carl [facility] 03-09-1996 DTaP, unspecified formulation Meena Carl [facility] 03-09-1996 Hib, unspecified formulation Meena Carl [facility] 03-09-1996 measles, mumps and rubella virus vaccine Meena Carl [facility] 06-11-1995 DTP-Hib Meena Carl [facility] 06-11-1995 hepatitis B vaccine, pediatric or pediatric/adolescent dosage Meena Carl [facility] 04-05-1995 DTP-Hib Meena Carl [facility] 02-01-1995 DTP-Hib Meena Carl [facility] 01-04-1995 hepatitis B vaccine, pediatric or pediatric/adolescent dosage Meena Carl [facility] 1994 hepatitis B vaccine, pediatric or pediatric/adolescent dosage Meena Carl [facility] NEGATED: Highlighted row has not occurred!12-08-2022 influenza virus vaccine, unspecified formulation Cordellorin SUSAN [facility] [place] NEGATED: Highlighted row has not occurred!12-08-2022 SARS-CoV-2 mRNA (tozinameran 5y-11y) vaccine Keyon DAVIS [facility] [place] Payers Date Payer Category Payer Medicaid [employer] [place] [id number] 2022-Present [address] [place] [address] [id number] 2022 Private Health Insurance [facility] [id number] 2014 Unknown [id number] 1.2.840.251587.1.13.239.2. 7.3.325982.315 1994 Unknown [id number] 2.16.840.1.463510.3.579.2. 727 1994 Unknown [id number] 2.16.840.1.221908.3.579.2. 727 1994 Unknown [id number] 2.16.840.1.736783.3.579.2. 727 1994 Unknown [id number] 2.16.840.1.029363.3.579.2. 727 1994 Unknown [id number] 2.16.840.1.639315.3.579.2. 593 1994 Unknown [id number] 2.16.840.1.774851.3.579.2. 1259 1994 Unknown [id number] 2.16.840.1.394605.3.579.2. 1259 1994 Unknown [id number] 2.16.840.1.652803.3.579.2. 1259 1994 Unknown [id number] 2.16.840.1.756193.3.579.2. 1259 1994 Unknown [id number] 2.16.840.1.108369.3.579.2. 1259 1994 Unknown [id number] 2.16.840.1.587437.3.579.2. 174 1994 Unknown [id number] 2.16.840.1.757278.3.579.2. 174 1994 Unknown [id number] 2.16.840.1.736649.3.579.2. 174 1994 Unknown [id number] 2.16.840.1.547160.3.579.2. 174 1994 Unknown [id number] 2.16.840.1.417531.3.579.2. 174 1994 Unknown [id number] 2.16.840.1.040059.3.579.2. 174 1994 Unknown [id number] 2.16.840.1.724411.3.579.2. 174 1994 Unknown [id number] 2.16.840.1.551605.3.579.2. 174 1994 Unknown [id number] 2.16.840.1.475357.3.579.2. 174 1994 Unknown [id number] 2.16.840.1.736724.3.579.2. 174 1994 Unknown [id number] 2.16.840.1.827196.3.579.2. 174 1994 Unknown [id number] 2.16.840.1.023324.3.579.2. 174 1994 Unknown [id number] 2.16.840.1.667887.3.579.2. 174 1994 Unknown [id number] 2.16.840.1.856595.3.579.2. 174 1994 Unknown [id number] 2.16.840.1.958190.3.579.2. 174 1994 Unknown [id number] 2.16.840.1.974993.3.579.2. 174 1994 Unknown [id number] 2.16.840.1.080719.3.579.2. 174 1994 Unknown [id number] 2.16.840.1.973101.3.579.2. 174 1994 Unknown [id number] 2.16.840.1.815279.3.579.2. 174 1994 Unknown [id number] 2.16.840.1.966523.3.579.2. 174 1994 Unknown [id number] 2.16.840.1.597112.3.579.2. 174 1994 Unknown [id number] 2.16.840.1.173012.3.579.2. 174 1994 Unknown [id number] 2.16.840.1.292169.3.579.2. 174 1994 Unknown [id number] 2.16.840.1.283062.3.579.2. 174 1994 Unknown [id number] 2.16.840.1.718079.3.579.2. 174 1994 Unknown [id number] 2.16.840.1.358511.3.579.2. 174 1994 Unknown [id number] 2.16.840.1.157142.3.579.2. 174 1994 Unknown [id number] 2.16.840.1.807544.3.579.2. 174 1994 Unknown [id number] 2.16.840.1.484145.3.579.2. 174 1994 Unknown [id number] 2.16.840.1.669709.3.579.2. 174 1994 Unknown [id number] 2.16.840.1.144433.3.579.2. 174 1994 Unknown [id number] 2.16.840.1.028880.3.579.2. 174 1994 Unknown [id number] 2.16.840.1.775735.3.579.2. 174 1994 Unknown [id number] 2.16.840.1.312157.3.579.2. 174 1994 Unknown [id number] 2.16.840.1.610923.3.579.2. 174 1994 Unknown [id number] 2.16.840.1.845805.3.579.2. 174 1994 Unknown [id number] 2.16.840.1.098479.3.579.2. 174 1994 Unknown [id number] 2.16.840.1.709732.3.579.2. 174 1994 Unknown [id number] 2.16.840.1.931592.3.579.2. 174 1994 Unknown [id number] 2.16.840.1.752299.3.579.2. 174 1959 Unknown [id number] 1.2.840.600437.1.13.239.2. 7.3.749259.315 Social History Date Type Detail Facility Start: 09-14-2021 End: 03-14-2024 Tobacco smoking status [facility] Never smoker [employer] Phone: Start: 09-14-2021 End: 03-14-2024 Tobacco use and exposure Never used [employer] Start: 09-14-2021 End: 08-21-2024 Alcohol intake Current non-drinker of alcohol (finding) [employer] Phone: Start: 1995 Sex Assigned At Not on file [employer] Phone: Start: 11-24-2022 End: 01-10-2023 Exposure to SARS-CoV-2 (event) Not sure [facility] Tobacco smoking status Never [facility] Start: 07-19-2023 End: 03-14-2024 Sex Assigned At Female [facility] Start: 12-04-2022 End: 01-10-2023 History SDOH Alcohol Frequency 1 [employer] Work Phone: Start: 07-19-2023 End: 03-14-2024 History of Social function [employer] How often to you hav e a drink containing alcohol? Never [employer] (I/We) worried artemio smith (my/our) food would run out before (I/we) got money to buy more. Never true [employer] At any time in the p ast 12 months, were you homeless or living in intermediate [including now]? No [employer] Start: 1995 Sex Assigned At Female [employer] Start: 07-19-2023 Gender identity Identifies as female gender (finding) [employer] Start: 07-19-2023 Sexual orientation Heterosexual (finding) [employer] Start: 07-16-2024 [facility] Start: 09-18-2024 Alcoholic beverage intake Lifetime non-drinker (finding) [facility] Functional Status Date Assessment Result Facility 12-08-2022 Functional Status N/A [facility] [place] 06-01-2022 Functional Status N/A [facility] Clinical Notes 06-01-2022 to 01-15-2025 Clara Castrejon, PT - 01/15/2025 9:00 AM Clara Wahl, PT - 01/12/2025 8:15 AM Austen Jones, [employer] - 01/10/2025 9:00 AM Austen Jones PTA - 01/05/2025 8:00 AM ESTDischarge Instructions Note Date & Type Note Facility 01-15-2025 History of Present illness Narrative Images from the original note were not included. [facility] Daily Note Date: 01/15/2025 Patient Name: Meena Lucero : 1995 (29 y.o.) Referring Provider (secondary): Dr. Partida Diagnosis: R buttock pain, sacral pain Treatment Diagnosis: back pain, SI pain Onset Date: 09/28/24 (Referral) PT Insurance Information: [facility] Total # of Visits Approved: 16 Per Physician Order Total # of Visits to Date: 14 Plan of Care/Certification Expiration Date: 01/19/25 Pre-Treatment Pain: 6/10 Assessment Assessment: Pain 6/10 today. Patient reports was walking and shopping yesterday, very active with pain 4-5/10, but now having increase pain this morning. Completed manual therapy per Doc Flow. Patient to continue with HEP on own. 2 visits remaining, recheck Oswestry. Plan Continue with current plan of care Exercises/Modalities/Manual: See DocFlow Sheet Education: On continuation of HEP Goals (Total # of Visits to Date: 14) Short Term Goals Time Frame for Short Term Goals: 8 Short Term Goal 1: Patient to be educated on and independent with HEP safe ex during pregnacy-Met Short Term Goal 2: Patient to be educated on and use SI belt to decrease pain during -Met Short Term Goal 3: Increase strength R hip abd 4+/5 for improved pelvic stability-Met STG Goal 3 Status:: Met [employer] Goals Time Frame for Am[employer]ia [employer]it[employer] Goals : 16 [facility] Goal 1: Improve functional mobility with Oswestry score <15/50 (from 22/50) [employer] Goal 2: Decrease R SI pain 4/10 at worst x3 days Treatment Tolerance: Treatment Tolerance: Tolerated treatment well. Post Treatment Pain: 5/10 Time In: 9:05 Time Out : 9:35 Timed Code Treatment Minutes: 30 Minutes Total Treatment Time: 30 Minutes Clara Castrejon, PT Date: 01/15/2025 documented in this encounter [facility] 01-12-2025 History of Present illness Narrative Images from the original note were not included. [facility] Daily Note Date: 01/12/2025 Patient Name: Meena Lucero : 1995 (29 y.o.) Referring Provider (secondary): Dr. Partida Diagnosis: R buttock pain, sacral pain Treatment Diagnosis: back pain, SI pain Onset Date: 09/28/24 (Referral) PT Insurance Information: [facility] Total # of Visits Approved: 16 Per Physician Order Total # of Visits to Date: 13 Plan of Care/Certification Expiration Date: 01/19/25 Pre-Treatment Pain: 6/10 Assessment Assessment: Pain 6/10 today. Patient reports pain daily, but somedays pain less than others. Completed therex and manual therapy both hips and low back per Doc flow. Post treatment pain 3/10. Continue per plan. Plan Continue with current plan of care Exercises/Modalities/Manual: See DocFlow Sheet Education: On ex form Goals (Total # of Visits to Date: 13) Short Term Goals Time Frame for Short Term Goals: 8 Short Term Goal 1: Patient to be educated on and independent with HEP safe ex during pregnacy-Met Short Term Goal 2: Patient to be educated on and use SI belt to decrease pain during -Met Short Term Goal 3: Increase strength R hip abd 4+/5 for improved pelvic stability-Met STG Goal 3 Status:: Met [facility] Goals Time Frame for Ammonia Nitrate Operator Goals : 16 [employer]it[employer] Goal 1: Improve functional mobility with Oswestry score <15/50 (from 22/50) [facility] Goal 2: Decrease R SI pain 4/10 at worst x3 days Treatment Tolerance: Treatment Tolerance: Tolerated treatment well. Post Treatment Pain: 3/10 Time In: 8:13 Time Out : 8:54 Timed Code Treatment Minutes: 41 Minutes Total Treatment Time: 41 Minutes Clara Castrejon, PT Date: 01/12/2025 documented in this encounter Bon [facility] 01-10-2025 History of Present illness Narrative Images from the original note were not included. [facility] Daily Note Date: 01/10/2025 Patient Name: Meena Lucero : 1995 (29 y.o.) Referring Provider (secondary): Dr. Partida Diagnosis: R buttock pain, sacral pain Treatment Diagnosis: back pain, SI pain Onset Date: 09/28/24 (Referral) PT Insurance Information: [facility] Total # of Visits Approved: 16 Per Physician Order Total # of Visits to Date: 12 Plan of Care/Certification Expiration Date: 01/19/25 Pre-Treatment Pain: 5/10 Assessment Assessment: Patient rates pain 5/10 today which is less than the last few visits. She feels that the baby is sitting lower now and this could be why she has less pain. Pt works well through session today. Hip flexor stretch and STM to both sides today d/t relief noted after trying both sides last visit. Plan Continue with current plan of care Exercises/Modalities/Manual: See DocFlow Sheet Education: HEP Goals (Total # of Visits to Date: 12) Short Term Goals Time Frame for Short Term Goals: 8 Short Term Goal 1: Patient to be educated on and independent with HEP safe ex during pregnacy-Met Short Term Goal 2: Patient to be educated on and use SI belt to decrease pain during -Met Short Term Goal 3: Increase strength R hip abd 4+/5 for improved pelvic stability-Met STG Goal 3 Status:: Met [facility] Goals Time Frame for [facility] Goals : 16 Am[employer]ia Nit[employer] Goal 1: Improve functional mobility with Oswestry score <15/50 (from 2250) [facility] Goal 2: Decrease R SI pain 4/10 at worst x3 days Treatment Tolerance: Treatment Tolerance: Tolerated treatment well. Post Treatment Pain: 4/10 Time In: 0902 Time Out: 09 Timed Code Treatment Minutes: 31 Minutes Total Treatment Time: 31 Minutes Austen Puga PTA Date: 01/10/2025 documented in this encounter Bon [facility] 01-05-2025 History of Present illness Narrative Images from the original note were not included. [facility] Daily Note Date: 01/05/2025 Patient Name: Meena Lucero : 1995 (29 y.o.) Referring Provider (secondary): Dr. Partida Diagnosis: R buttock pain, sacral pain Treatment Diagnosis: back pain, SI pain Onset Date: 09/28/24 (Referral) PT [facility] Total # of Visits Approved: 16 Per Physician Order Total # of Visits to Date: 11 Plan of Care/Certification Expiration Date: 01/19/25 Pre-Treatment Pain: 8/10 Assessment Assessment: Patient rates pain today 8/10 on left more than right. Added hip flexor stretch to left d/t relief noted. Pt tolerates treatment. She feels that relief only lasts for a few hours after each session. Plan Continue with current plan of care Exercises/Modalities/Manual: See DocFlow Sheet Education: HEP Goals (Total # of Visits to Date: 11) Short Term Goals Time Frame for Short Term Goals: 8 Short Term Goal 1: Patient to be educated on and independent with HEP safe ex during pregnacy-Met Short Term Goal 2: Patient to be educated on and use SI belt to decrease pain during -Met Short Term Goal 3: Increase strength R hip abd 4+/5 for improved pelvic stability-Met STG Goal 3 Status:: Met Am[employer]ia Nitrate Operator Goals Time Frame for [facility]ci Goals : 16 [facility] Goal 1: Improve functional mobility with Oswestry score <15/50 (from 22/50) [facility] Goal 2: Decrease R SI pain 4/10 at worst x3 days Treatment Tolerance: Treatment Tolerance: Tolerated treatment well. Post Treatment Pain: 5/10 Time In: 0802 Time Out: 0838 Timed Code Treatment Minutes: 36 Minutes Total Treatment Time: 36 Minutes Austen Puga PTA Date: 01/05/2025 documented in this encounter [facility] 01-02-2025 History of Present illness Narrative Images from the original note were not included. [facility] Daily Note Date: 01/02/2025 Patient Name: Meena Lucero : 1995 (29 y.o.) Referring Provider (secondary): Dr. Partida Diagnosis: R buttock pain, sacral pain Treatment Diagnosis: back pain, SI pain Onset Date: 09/28/24 (Referral) PT Insurance Information: [facility] Total # of Visits Approved: 16 Per Physician Order Total # of Visits to Date: 9 Plan of Care/Certification Expiration Date: 01/19/25 Pre-Treatment Pain: 8/10 Assessment Assessment: Patient rates pain today as 8/10. Completes exercises followed by manual therapy per doc flow sheet. No change in pain following session. Continue. Plan Continue with current plan of care Exercises/Modalities/Manual: See DocFlow Sheet Education: Goals (Total # of Visits to Date: 9) Short Term Goals Time Frame for Short Term Goals: 8 Short Term Goal 1: Patient to be educated on and independent with HEP safe ex during pregnacy-Met Short Term Goal 2: Patient to be educated on and use SI belt to decrease pain during -Met Short Term Goal 3: Increase strength R hip abd 4+/5 for improved pelvic stability-Met STG Goal 3 Status:: Met [facility] Goals Time Frame for Ammonia Nitrate Operator Goals : 16 [facility] Goal 1: Improve functional mobility with Oswestry score <15/50 (from 22/50) [employer] Goal 2: Decrease R SI pain 4/10 at worst x3 days Treatment Tolerance: Treatment Tolerance: Tolerated treatment well. Post Treatment Pain: 8/10 Time In: 1114 Time Out : 1152 Timed Code Treatment Minutes: 37 Minutes Total Treatment Time: 37 Minutes Lauryn Edwards,[employer] Date: 01/02/2025 documented in this encounter [facility] 12-29-2024 History of Present illness Narrative Images from the original note were not included. [facility] Daily Note Date: 12/29/2024 Patient Name: Meena Lucero : 1995 (29 y.o.) Referring Provider (secondary): Dr. Partida Diagnosis: R buttock pain, sacral pain Treatment Diagnosis: back pain, SI pain Onset Date: 09/28/24 (Referral) PT [facility] Total # of Visits Approved: 16 Per Physician Order Total # of Visits to Date: 9 Plan of Care/Certification Expiration Date: 01/19/25 Pre-Treatment Pain: 6/10 Assessment Assessment: Pain 6/10 bilateral low back and in sides of hips. Completed manual therapy per Doc Flow. Held therex due to has child with her. Post session pain 4/10. Continue per plan. Plan Continue with current plan of care Exercises/Modalities/Manual: See DocFlow Sheet Education: Goals (Total # of Visits to Date: 9) Short Term Goals Time Frame for Short Term Goals: 8 Short Term Goal 1: Patient to be educated on and independent with HEP safe ex during pregnacy-Met Short Term Goal 2: Patient to be educated on and use SI belt to decrease pain during -Met Short Term Goal 3: Increase strength R hip abd 4+/5 for improved pelvic stability-Met STG Goal 3 Status:: Met Ammonia Nitrate Operator Goals Time Frame for Fci Goals : 16 Ammonia Nitrate Operator Goal 1: Improve functional mobility with Oswestry score <15/50 (from 22/50) Ammonia Nitrate Operator Goal 2: Decrease R SI pain 4/10 at worst x3 days Treatment Tolerance: Treatment Tolerance: Tolerated treatment well. Post Treatment Pain: 4/10 Time In: 11;15 Time Out : 11:43 Timed Code Treatment Minutes: 28 Minutes Total Treatment Time: 28 Minutes Clara Castrejon, PT Date: 12/29/2024 documented in this encounter [facility] 12-27-2024 History of Present illness Narrative Images from the original note were not included. [facility] Outpatient Physical Therapy Daily Note Date: 12/27/2024 Patient Name: Meena Lucero : 1995 (29 y.o.) Referring Provider (secondary): Dr. Partida Diagnosis: R buttock pain, sacral pain Treatment Diagnosis: back pain, SI pain Onset Date: 09/28/24 (Referral) PT Insurance Information: [facility] Total # of Visits Approved: 16 Per Physician Order Total # of Visits to Date: 8 Plan of Care/Certification Expiration Date: 01/19/25 Pre-Treatment Pain: 6/10 Assessment Assessment: Pt reports pain in back today 5/10, pelvic pain 6/10. She reports feeling the baby's head is now in her pelvis since he's been moving, creating more discomfort.Hip ABD MMT 4+/5. Plan Continue with current plan of care [...] hip abd 4+/5 for improved pelvic stability STG Goal 3 Status:: Met Fci Goals Time Frame for Fci Goals : 16 Ammonia Nitrate Operator Goal 1: Improve functional mobility with Oswestry score <15/50 (from 22/50) Ammonia Nitrate Operator Goal 2: Decrease R SI pain 4/10 at worst x3 days Treatment Tolerance: Treatment Tolerance: Tolerated treatment well. Post Treatment Pain: 5/10 Time In: 0900 Time Out: 0935 Timed Code Treatment Minutes: 35 Minutes Total Treatment Time: 35 Minutes Austen Puga PTA Date: 12/27/2024 documented in this encounter Leonardo [facility] 12-22-2024 History of Present illness Narrative Images from the original note were not included. [facility] Outpatient Physical Therapy Daily Note Date: 12/22/2024 Patient Name: Meena Lucero : 1995 (29 y.o.) Referring Provider (secondary): Dr. Partida Diagnosis: R buttock pain, sacral pain Treatment Diagnosis: back pain, SI pain Onset Date: 09/28/24 (Referral) PT Insurance Information: [facility] Total # of Visits Approved: 16 [...] hip abd 4+/5 for improved pelvic stability Ammonia Nitrate Operator Goals Time Frame for Fci Goals : 16 Fci Goal 1: Improve functional mobility with Oswestry score <15/50 (from 22/50) Ammonia Nitrate Operator Goal 2: Decrease R SI pain 4/10 at worst x3 days Treatment Tolerance: Treatment Tolerance: Tolerated treatment well. Post Treatment Pain: 5-6/10 Time In: 0801 Time Out: 0836 Timed Code Treatment Minutes: 35 Minutes Total Treatment Time: 35 Minutes Austen Puga PTA Date: 12/22/2024 documented in this encounter Leonardo [facility] 12-20-2024 History of Present illness Narrative Images from the original note were not included. [facility] Outpatient Physical Therapy Daily Note Date: 12/20/2024 Patient Name: Meena Lucero : 1995 (29 y.o.) Referring Provider (secondary): Dr. Partida Diagnosis: R buttock pain, sacral pain Treatment Diagnosis: back pain, SI pain Onset Date: 09/28/24 (Referral) PT [facility] Total # of Visits Approved: 16 Per [...] hip abd 4+/5 for improved pelvic stability Fci Goals Time Frame for Ammonia Nitrate Operator Goals : 16 Fci Goal 1: Improve functional mobility with Oswestry score <15/50 (from 22/50) Ammonia Nitrate Operator Goal 2: Decrease R SI pain 4/10 at worst x3 days Treatment Tolerance: Treatment Tolerance: Tolerated treatment well. Post Treatment Pain: 6/10 Time In: 9;00 Time Out : 9:26 Timed Code Treatment Minutes: 26 Minutes Total Treatment Time: 26 Minutes Clara Castrejon, PT Date: 12/20/2024 documented in this encounter [facility] 12-19-2024 History of Present illness Narrative [...] PO) Oral ALLERGIES Allergies Allergen Reactions Hydrocodone [place] Oil Hives Codeine Rash and Unknown Chest [...] nursing note reviewed. Exam conducted with a supervisor computer operations present. Vitals: Estimated body mass index is [...] Gary Robison DO documented in this encounter [facility] 12-13-2024 History of Present illness Narrative Images from the original note were not included. [facility] Outpatient Physical Therapy Daily Note Date: 12/13/2024 Patient Name: Meena Lucero : 1995 (29 y.o.) Referring Provider (secondary): Dr. Partida Diagnosis: R buttock pain, sacral pain Treatment Diagnosis: back pain, SI pain Onset Date: 09/28/24 (Referral) PT Insurance Information: [facility] Total # of Visits Approved: 16 [...] hip abd 4+/5 for improved pelvic stability Fci Goals Time Frame for Fci Goals : 16 Fci Goal 1: Improve functional mobility with Oswestry score <15/50 (from 22/50) Ammonia Nitrate Operator Goal 2: Decrease R SI pain 4/10 at worst x3 days Treatment Tolerance: Treatment Tolerance: Tolerated treatment well. Post Treatment Pain: 6/10 Time In: 0945 Time Out: 1018 Timed Code Treatment Minutes: 33 Minutes Total Treatment Time: 33 Minutes Austen Puga PTA Date: 12/13/2024 documented in this encounter [facility] 12-06-2024 History of Present illness Narrative Images from the original note were not included. [facility] Outpatient Physical Therapy Daily Note Date: 12/06/2024 Patient Name: Meena Lucero : 1995 (29 y.o.) Referring Provider (secondary): Dr. Partida Diagnosis: R buttock pain, sacral pain Treatment Diagnosis: back pain, SI pain Onset Date: 09/28/24 (Referral) PT Insurance Information: [facility] Total # of Visits Approved: 16 [...] hip abd 4+/5 for improved pelvic stability Fci Goals Time Frame for Fci Goals : 16 Ammonia Nitrate Operator Goal 1: Improve functional mobility with Oswestry score <15/50 (from 22/50) Ammonia Nitrate Operator Goal 2: Decrease R SI pain 4/10 at worst x3 days Treatment Tolerance: Treatment Tolerance: Tolerated treatment well. Post Treatment Pain: 6/10 Time In: 9:45 Time Out : 10:18 Timed Code Treatment Minutes: 33 Minutes Total Treatment Time: 33 Minutes Clara Castrejon, PT Date: 12/06/2024 Images from the original note were not included. [facility] Out[facility] Therapy Progress Report Date: 12/06/2024 Patient: Meena Lucero : 1995 Referring Provider (secondary): Dr. Partida Diagnosis: R buttock pain, sacral pain Treatment Diagnosis: back pain, SI pain Onset Date: 09/28/24 (Referral) PT Insurance Information: [facility] Total # of Visits Approved: 16 [...] hip abd 4+/5 for improved pelvic stability Fci Goals Time Frame for Fci Goals : 16 Fci Goal 1: Improve functional mobility with Oswestry score <15/50 (from 22/50) Ammonia Nitrate Operator Goal 2: Decrease R SI pain 4/10 at worst x3 days Clara Castrejon, PT Date: 12/06/2024 documented in this encounter Bon [facility] 11-20-2024 History of Present illness Narrative [...] hours PRN ALLERGIES Allergies Allergen Reactions Hydrocodone [place] Oil Hives Codeine Rash and Unknown Chest [...] of: CANDACE Avitia documented in this encounter [facility] 10-17-2024 History of Present illness Narrative [...] hours PRN ALLERGIES Allergies Allergen Reactions Hydrocodone [place] Oil Hives Codeine Rash and Unknown Chest [...] nursing note reviewed. Exam conducted with a supervisor computer operations present. Vitals: Estimated body mass index is [...] Gary Robison DO documented in this encounter [facility] 10-17-2024 History of Present illness Narrative Occupational Therapy [facility] Date: 10/17/2024 Patient Name: Meena Lucero : 1995 Pt Cancelled Appt due to no reason for cancel Trinity Harris Date: 10/17/2024 documented in this encounter [facility] 10-12-2024 History of Present illness Narrative Images from the original note were not included. [facility] Outpatient Physical Therapy Daily Note Date: 10/12/2024 Patient Name: Meena Lucero : 1995 (28 y.o.) Referring Provider (secondary): Dr. Partida Diagnosis: R buttock pain, sacral pain Treatment Diagnosis: back pain, SI pain Onset Date: 09/28/24 (Referral) PT Insurance Information: [facility] Total # of Visits Approved: 16 [...] hip abd 4+/5 for improved pelvic stability Fci Goals Time Frame for Ammonia Nitrate Operator Goals : 16 Ammonia Nitrate Operator Goal 1: Improve functional mobility with Oswestry score <15/50 (from 22/50) Fci Goal 2: Decrease R SI pain 4/10 at worst x3 days Post Treatment Pain: 4/10 Time In: 8:00 Time Out : 8:33 Timed Code Treatment Minutes: 33 Minutes Total Treatment Time: 33 Minutes Clara Castrejon, PT Date: 10/12/2024 documented in this encounter [facility] 10-04-2024 History of Present illness Narrative Physical Therapy [facility] Date: 10/04/2024 Patient Name: Meena Lucero : 1995 Pt Cancelled Appt due to therapist ill Trinity Harris Date: 10/04/2024 documented in this encounter [facility] 09-18-2024 History of Present illness Narrative Reason for Appointment: Patient ID: Meena Lucero is a 28 y.o. female who presents for Routine Visit Patient presents today for Return OB appointment. MEDICATIONS Current Outpatient Medications Medication Instructions 27-1 MG tablet Every 24 hours MV-Min-Fe Fum-FA-DHA ( 1 PO) Oral promethazine (PHENERGAN) 12.5 mg, Oral, Every 6 hours PRN ALLERGIES Allergies Allergen Reactions Hydrocodone [place] Oil Hives Codeine Rash and Unknown Chest [...] nursing note reviewed. Exam conducted with a supervisor computer operations present. Vitals: Estimated body mass index is [...] or undercooked meat, and stay away from [facility]. Patient has been consulted regarding any further [...] Gary Robison DO documented in this encounter [facility] 08-18-2024 History of Present illness Narrative Reason for Appointment: Patient ID: Meena Luecro is a 28 y.o. female who presents [...] Date CHOLECYSTECTOMY TONSILLECTOMY Allergies Allergen Reactions Hydrocodone [place] Oil Hives Codeine Rash and Unknown Chest [...] screen, urine; Future Nurse Note: Pt given [place] [address] and advised to have labs done [...] Daxa Martinez MA documented in this encounter [facility] 07-27-2024 History of Present illness Narrative Images from the original note were not included. [facility] Outpatient Physical Therapy Daily Note Date: 07/27/2024 Patient Name: Meena Lucero : 1995 (28 y.o.) Referring Provider (secondary): Dr. Partida Diagnosis: Sacral pain Treatment Diagnosis: SI pain Onset Date: 05/29/24 PT Insurance Information: [facility] Total # of Visits Approved: 16 [...] Goals Short Term Goal 1: STG= LTG Fci Goals Time Frame for Fci Goals : 16 visits Ammonia Nitrate Operator Goal 1: Decrease subjective SI/right gluteal pain to <3/10 with activity and transitional movements Post Treatment Pain: 5/10 Time In: 0910 Time Out : 0935 Timed Code Treatment Minutes: 25 Minutes Total Treatment Time: 25 Minutes Onel Davis, PT Date: 07/27/2024 documented in this encounter [facility] 07-06-2024 History of Present illness Narrative Images from the original note were not included. [facility] Out[facility] Physical Therapy Daily Note Date: [...] strengthening for self-correction of pelvic asymetry- MET Fci Goals Time Frame for Ammonia Nitrate Operator Goals : 10 visits Fci Goal 1: Decrease subjective SI/right gluteal pain to <3/10 with activity and transitional movements Fci Goal 2: Upgrade HEP for pelvic stab ex Fci Goal 3: Maintain symetrical pelvic alignment for 5 consecutive days Post Treatment Pain: 4/10 Time In: 0910 Time Out : 0945 Timed Code Treatment Minutes: 35 Minutes Total Time: 35 Minutes ASIA MIX PT Date: 07/06/2024 documented in this encounter [facility] 06-29-2024 History of Present illness Narrative Images from the original note were not included. [facility] Outpatient Physical Therapy Daily Note Date: [...] strengthening for self-correction of pelvic asymetry- MET Ammonia Nitrate Operator Goals Time Frame for Ammonia Nitrate Operator Goals : 10 visits Fci Goal 1: Decrease subjective SI/right gluteal pain to <3/10 with activity and transitional movements Ammonia Nitrate Operator Goal 2: Upgrade HEP for pelvic stab ex Ammonia Nitrate Operator Goal 3: Maintain symetrical pelvic alignment for 5 consecutive days Post Treatment Pain: 2-3/10 Time In: 0915 Time Out : 0955 Timed Code Treatment Minutes: 35 Minutes Total Time: 40 Minutes ASIA MIX PT Date: 06/29/2024 documented in this encounter [facility] 01-10-2023 Hospital Discharge instructions Fei Canales MD - 01/10/2023 3:17 PM EST There was a possible concern for fracture of the fibula. Please follow-up with Dr. Rehman for further evaluation and be sure to use crutches and be nonweightbearing until then. The following attachments cannot be sent through Care Everywhere.Ankle Sprain ([place]ai[place]ese)documented in this encounter LEONARDO LOZANO [employer] [facility] Work Phone: 12-08-2022 Hospital Discharge instructions Patient [...] than 2 years old. Live in a jail. Travel on cruise ships. What are the [...] and water are not available, use hand insole department worker. Make sure that all people in your household wash their hands well and often. Take wtfo-mup-[id number] and prescription medicines only as told by [...] and water are not available, use hand insole department worker. This information is not intended to replace advice given to you by your health care provider. Make sure you discuss any questions you have with your health care provider. Document Released: 11/08/2006 Document Revised: 04/26/2020 Document Reviewed: 09/13/2019 [employer] Patient Education 2020 [employer]. Follow Up Care 12/08/2022 09:17:52 With:Keyon DAVIS MD, FAM Address: When: only if needed [facility] [place] 12-04-2022 Hospital Discharge instructions Jason Tracy MD - 12/04/2022 4:33 PM EST Increase fluids at home. Take Zofran for any nausea. Try Imodium/loperamide for diarrhea. Call primary care doctor for close follow-up. Use Tylenol or Motrin to keep fever down. The following attachments cannot be sent through Care Everywhere.Viral Infections (Taiwanese)documented in this encounter [facility] [employer] Work Phone: 06-01-2022 Hospital Discharge instructions Patient [...] height. This can be done either in [place] ([place] or metric measurements. Note that charts are available to help you find your BMI quickly and easily without having to do these calculations yourself. To calculate your BMI in [place]ese ([place] measurements, your health care provider will: [...] medical problems. BMI can be measured using [place]ese measurements or metric measurements. To interpret your [...] 07/20/2005 Document Revised: 10/21/2018 Document Reviewed: 09/21/2018 [employer] Patient Education 2020 [employer]. 06/01/2022 13:15:39 Carpal Tunnel Syndrome Carpal Tunnel [...] Having a job, such as being a general manager in training or a legal cashier, that requires you to repeatedly move [...] 3 times per day. General instructions Take gxwl-mtv-qfbofqx and prescription medicines only as told by [...] 11/05/2001 Document Revised: 03/17/2019 Document Reviewed: 03/17/2019 [employer] Patient Education [employer]. Follow Up Care 05/28/2022 08:22:05 With:Meena Carl CNP Address: When: only if needed [facility] Evaluation + Plan note [facility] Evaluation note Diagnosis Subacute bronchitis- Primary Acute bronchitis documented in this encounter [employer] Phone: evaldywekm note* Diagnosis Left wrist pain Pain in joint, forearm documented in this encounter [employer] Phone: evaluation note* Diagnosis Viral illness- Primary Unspecified viral infection, in conditions classified elsewhere and of unspecified site documented in this encounter [employer] Phone: evaluation note* Diagnosis Injury of right ankle, initial encounter- Primary documented in this encounter [employer] Phone: evaluation note* Diagnosis Other closed fracture of proximal end of right fibula with routine healing, subsequent encounter documented in this encounter [employer] Phone: evaluation note* Diagnosis First trimester state, [...] and vomiting during documented in this encounter [facility] HealthcareEvaluation note* Diagnosis Missed menses First trimester state, incidental 6 weeks gestation of , unspecified gestational age Encounter for supervision of normal first in first trimester documented in this encounter [facility] HealthcareEvaluation note* Diagnosis Second trimester state, incidental 20 weeks gestation of Diabetes mellitus screening Screening for diabetes mellitus documented in this encounter [facility] HealthcareEvaluation note* Diagnosis Second trimester state, incidental 24 weeks gestation of Diabetes mellitus screening Screening for diabetes mellitus Low platelet count (CMS/HCC) Thrombocytopenia affecting , antepartum (CMS/HCC) 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 * Bronchitis (Taiwanese) [facility] note No data available for this section [facility] Reason for referral (narrative) Referred by: Meena Carl CNP [facility] Advance Directives No Advanced Directives Records FoundDocuments on File Type Date Recorded Patient Thread Trimmer Expl anation ACP-Advance Directive ACP-Power of Methods Examiner Summary Purpose Family History No Family History [...] Care Team (unrecognized sect ion and content) Operational Risk Manager Relationship Specialty Start Date End Date Keyon Davis MD [address] [place] [address] [place] [address] PCP - General Family Medicine 12/04/22 Operational Risk Manager Relationship Specialty Start Date End Date Keyon Davis MD [address] [place] [address] [place] [address] PCP - General Family Medicine 12/04/22 Operational Risk Manager Relationship Specialty Start Date End Date Keyon Davis MD [address] [place] [address] [place] [address] PCP - General Family Medicine 12/04/22 Operational Risk Manager Relationship Specialty Start Date End Date Óscar Villagran DNP [address] [place] [address] PCP - General Family Nurse Practitioner 03/14/24 Operational Risk Manager Relationship Specialty Start Date End Date Óscar Villagran DNP [address] [place] [address] PCP - General Family Nurse Practitioner 03/14/24 Operational Risk Manager Relationship Specialty Start Date End Date Óscar Villagran DNP [address] [place] [address] PCP - General Family Nurse Practitioner 03/14/24 Operational Risk Manager Relationship Specialty Start Date End Date Óscar Villagran DNP [address] [place] [phone] PCP - General Family Nurse Practitioner 03/14/24 Operational Risk Manager Relationship Specialty Start Date End Date Keyon Davis MD [facility] [place] [place] [id number] PCP - General 05/12/23 Gary Robison DO [address] [place], [place] [address] [address] PCP - [facility] 02/21/24 Operational Risk Manager Relationship Specialty Start Date End Date Keyon Davis MD [facility] [place] [place] [id number] PCP - General 05/12/23 Gary Robison DO [address] [place], [place] [address] [address] PCP - [facility] 02/21/24 Operational Risk Manager Relationship Specialty Start Date End Date Óscar Villagran DNP [address] [place] [phone] PCP - General Family Nurse Practitioner 03/14/24 Operational Risk Manager Relationship Specialty Start Date End Date Keyon Davis MD [facility] [place] [address] PCP - General 05/12/23 Gary Robison DO [facility] [place] [address] PCP [facility] 02/21/24 Operational Risk Manager Relationship Specialty Start Date End Date Keyon Davis MD [address] [place] [phone] PCP - General 05/12/23 Gary Robison, [place] [facility] [place] [address] PCP [facility] 02/21/24 Operational Risk Manager Relationship Specialty Start Date End Date Keyon Davis MD [facility] [address], [phone] PCP - General 05/12/23 Gary Robison, [place] [facility] [place] [address] PCP [facility] 02/21/24 Operational Risk Manager Relationship Specialty Start Date End Date Keyon Davis MD [facility] [address], [phone] PCP - General 05/12/23 Gary Robison, [place] [facility] [place] [address] PCP [facility] 02/21/24 Operational Risk Manager Relationship Specialty Start Date End Date Keyon Davis MD [address] [place] [phone] PCP - General 05/12/23 Gary Robison, [address] [place], [place] [phone] PCP - [facility] 02/21/24 Operational Risk Manager Relationship Specialty Start Date End Date Óscar Villagran DNP [address] [place] [address] PCP - General Family Nurse Practitioner 03/14/24 Operational Risk Manager Relationship Specialty Start Date End Date Keyon Davis MD [facility] [place] [address] PCP - General 05/12/23 Gary Robison DO [address] [place] [address] PCP [facility] 02/21/24 Operational Risk Manager Relationship Specialty Start Date End Date Keyon Davis MD [facility] [place] [address] PCP - General 05/12/23 Gary Robison DO [address] [place] [phone] PCP [facility] 02/21/24 Operational Risk Manager Relationship Specialty Start Date End Date Óscar Villagran DNP [address] [place] [address] PCP - General Family Nurse Practitioner 03/14/24 Operational Risk Manager Relationship Specialty Start Date End Date Keyon Davis MD [facility] [place] [address] PCP - General 05/12/23 Gary Robison DO [address] [place] [address] [place] [address] PCP - [facility] 02/21/24 INFORMATION SOURCE (unrecogn ized section and content) DATE CREATED AUTHOR 02/01/2023 [facility] DATE CREATED AUTHOR AUTHOR'S ORGANIZ ATION 04/01/2023 [facility] DATE CREATED AUTHOR AUTHOR'S ORGANIZ ATION 12/20/2024 [facility] EPIC DATE CREATED AUTHOR AUTHOR'S ORGANIZ ATION 01/16/2025 Kirsty charles FOR RECORDS PERTAINING TO PATIENTS [...] BE BASED ON THE PRIMARY CLINICAL RECORDS. [employer] provides no warranty or guarantee of the accuracy or completeness of information in this document.
== END 2025-01-16 07:57 | disposition home or self-care (01) ==
LOC: US 07:57
PROVIDERS: Visit Provider Obstetrics & Gynecology
DX: O43.113 Circumvallate placenta, third trimester (principal); Z3A.29 29 weeks gestation of pregnancy
CPT/HCPCS: 76815; 76816

== ENCOUNTER 2025-01-17 07:35 | Outpatient (RCR) | payer OTHER, SELFPAY ==
[2025-01-17 09:58] VITALS: BP 122/76; PULSE 80; TEMP 36.5; O2SAT 99
[2025-01-17] MEDS: RHO(D) IMMUNE GLOBULIN 1,500 UNIT SYRINGE 1500 UNIT IM (10:12)
== END 2025-01-17 13:20 | disposition home or self-care (01) ==
LOC: INF 07:35
PROVIDERS: Visit Provider Obstetrics & Gynecology
DX: O43.113 Circumvallate placenta, third trimester (principal); Z3A.29 29 weeks gestation of pregnancy; O26.893 Other specified pregnancy related conditions, third trimester; Z67.91 Unspecified blood type, Rh negative
CPT/HCPCS: 36415; 76815; 76816; 86850; 86900; 86901; 96372; J2791

== ENCOUNTER 2025-01-22 10:01 | Outpatient (OUT) | payer OTHER, SELFPAY ==
--- OUTSIDE RECORDS SUMMARY | 2025-01-22 10:15 | XMS_ITS | CCD ---
Author Organization [facility] Care Team Providers Care Pattern Painter Name Role Phone Unavailable Primary Care Provider UnavailCharli Browne Primary Care Physician [phone] Keyon Davis MD Primary Care Provider ANTHONY Carl Attending UnavailKeyon Lockett Attending Unavailable Evan Moyer Attending Unavailable LISHA, DR DRUMMOND LISTED Consulting Unavaila ble [facility] [place] NICOLE Primary Care Unavailable ENRIQUETA ., DR BENDER Attending Unavailable ENRIQUETA ., DR BENDER Admitting Unavailable Clingman HUMA, Óscar Moreno Primary Care Provider Tyshawn FINN, Óscar A Primary Care Provider Keyon Davis MD Primary Care Provider Gary Robison DO Unavailable JOHN PARTIDA Attending Unavailable JOHN PARTIDA Referring Unavailable CLINGMAN, ÓSCAR A Primary Care Unavailable JOHN PARTIDA Attending Unavailable JOHN PARTIDA Referring Unavailable CLINGMAN, ÓSCAR A Primary Care Unavailable JOHN PARTIDA Attending Unavailable JOHN PARTIDA Referring Unavailable CLINGMAN, ÓSCAR A Primary Care Unavailable KEYON DAVIS Primary Care Unavailable GARY ROBSION Referring Unavailable CLINGMAN, ÓSCAR A Primary Care [...] Care Unavailable JOHN PARTIDA Attending Unavailable JOHN APRTIDA Referring Unavailable CLINGMAN, ÓSCAR A Primary Care [...] Unavailable CLINGMAN, ÓSCAR A Primary Care Unavailable ENRIQUETAGARY WOODS Referring Unavailable OLEWIJOHN GOODMAN Attending Unavailable JOHN [...] ÓSCAR A Primary Care Unavailable GARY ROBISON Attending Unavailable GARY ROBISON Attending Unavailable GARY ROBISON Attending Unavailable GARY ROBISON Attending Unavailable GENEVIEVE CALDERON Attending Unavailable Allergies Allergy Classification Reported Allergen(s) Allergy Type Date of Onset Reaction(s) Facility (20 sources) Acetaminophen / HYDROcodone Drug Allergy 7 Rash, Unknown [facility] (20 sources) Acetaminophen / oxyCODONE Drug Allergy 5 Rash, Unknown [facility] (20 sources) Codeine; Translations: [codeine] Drug Allergy 7 Rash, Cutaneous eruption (morphologic abnormality), Unknown [facility] (3 sources) Acetaminophen / HYDROcodone; Translations: [acetaminophen-hy drocodone] Drug Allergy [facility] (3 sources) Acetaminophen / oxyCODONE; Translations: [acetaminophen-ox ycodone] Drug Allergy Cutaneous eruption (morphologic abnormality) [facility] (1 source) Acetaminophen / HYDROcodone Drug Allergy [facility] (1 source) Acetaminophen / oxyCODONE Drug Allergy [facility] (1 source) Codeine Drug Allergy [facility] (20 sources) HYDROcodone Drug Allergy 3 [facility] (20 sources) orange allergenic extract Drug Allergy 5 [facility] Medications Current Medications Medication Drug Class(es) [...] extended release oral tablet (6 sources) Uncompetitive I-sfrjum-G-aspartate Receptor Antagonist, Sigma-1 Agonist Start: 09-14-2021 take 1 tablet by mouth every twelve hours as needed for cough Dextromethorphan-g uaiFENesin 60-1200 MG TB12 Take 1 tablet by mouth every 12 hours as needed (COUGH CONGESTION) 28 tablet 0 09/14/2021 Active dextromethorphan hydrobromide 3 mg/ml / promethazine hydrochloride 1.25 mg/ml oral solution (6 sources) Phenothiazine, Uncompetitive B-uciebl-L-aspartate Receptor Antagonist, Sigma-1 Agonist Start: 05-31-2018 promethazine-dextr [...] day(s), # 30 tab(s), Refills(s) 1, Pharmacy: [facility], 170, cm, 06/01/22 12:55:00 EDT, Height/Length [...] 0 Active metoclopramide 10 mg oral tablet (14 sources) Dopamine-2 Receptor Antagonist Start: 10-17-2024 End: 01-16-2025 metoclopramide (Reglan) 10 MG tablet Indications: Nausea and vomiting during Take 1 tablet (10 mg) by mouth in the morning and 1 tablet (10 mg) at noon and 1 tablet (10 mg) in the evening and 1 tablet (10 mg) before bedtime. 120 tablet 2 10/17/2024 01/16/2025 Discontinued omeprazole 20 mg delayed release oral capsule (17 sources) Proton Pump Inhibitor Start: 11-20-2024 End: [...] or Vomiting 12 tablet 0 12/04/2022 Active pantoprazole 40 mg delayed release oral tablet (4 sources) Proton Pump Inhibitor Start: 01-16-2025 End: 01-16-2026 take 1 tablet by mouth before mealtime pantoprazole (Protonix) 40 MG EC tablet Indications: Heartburn during in third trimester Take 1 tablet (40 mg) by mouth in the morning. Take before meals. Do not crush, chew, or split.. 30 tablet 11 01/16/2025 01/16/2026 Active predniSONE 20 mg oral tablet (1 source) Start: 05-22-2024 End: 05-27-2024 take 2 tablets by mouth once daily predniSONE (DELTASONE) 20 MG tablet Indications: Right buttock pain , Sacral pain Take 2 tablets by mouth daily for 5 days 10 tablet 0 05/22/2024 05/27/2024 Active 27-1 MG tablet (20 sources) 27-1 MG tablet 1 (one) time each day at the same time Active Multivitamins with Vitamin B Complex, Vitamin C, Minerals and L-Methylfolate oral capsule (2 sources) Start: 01-19-2017 Multivitamins with Vitamin B Complex, Vitamin C, Minerals and L-Methylfolate oral capsule 1 cap(s), Oral, Daily, 30 cap(s), Refill(s) 0 Start Date: 01/19/17 Status: Ordered MV-Min-Fe Fum-FA-DHA ( 1 PO) (20 sources) End: 01-16-2025 MV-Min-Fe Fum-FA-DHA ( 1 PO) Take by mouth. 01/16/2025 Discontinued MV-Min- Fe Fum-FA-DHA ( 1 PO) Take [...] TID, # 15 tab(s), Refills(s) 0, Pharmacy: [facility], 170, cm, 09/03/22 14:31:00 EDT, Height/Length [...] [Circumvallate placenta, second trimester] 12-19-2024 Episodic Other complications of (2 sources) Heartburn; Translations: [Other specified related conditions, third trimester] 01-16-2025 Episodic Other female genital disorders (2 sources) [...] system disorders (1 source) Carpal tunnel syndrome 07-11-2022 Chronic Other non-traumatic joint disorders (1 source) [...] - obesity 06-01-2022 Chronic Residual codes; unclassified (2 sources) Gestation period, 11 weeks; Translations: [11 weeks gestation of ] 09-18-2024 Episodic Residual codes; unclassified (1 source) Gestation period, 6 weeks; Translations: [Less than 8 weeks gestation of ] 08-18-2024 Episodic Residual codes; unclassified (2 sources) Gestation period, 20 weeks; Translations: [20 weeks gestation of ] 11-20-2024 Episodic Residual codes; unclassified (2 sources) Gestation period, 24 weeks; Translations: [24 weeks gestation of ] 12-19-2024 Episodic Residual codes; unclassified (2 sources) Gestation period, 28 weeks; Translations: [28 weeks gestation of ] 01-16-2025 Episodic Unclassified (2 sources) Non-smoker 06-01-2022 Viral infection (1 source) Viral disease; Translations: [Viral infection, unspecified] Episodic Past or Other Problems Problem Classification Problem Date Documented Date Episodic/Chronic Other connective tissue disease (3 sources) Myalgia, other site; Translations: [Myalgia, other site] Onset: 05-22-2024 Episodic Other and delivery including normal (20 sources) First trimester ; Translations: [Encounter for supervision of normal , unspecified, first trimester] Onset: 10-17-2024 09-18-2024 Episodic Residual codes; unclassified (20 sources) Patient encounter status; Translations: [Other specified health status] Onset: 06-01-2022 Episodic Residual codes; unclassified (18 sources) Gestation period, 15 weeks; Translations: [15 weeks gestation of ] Onset: 10-17-2024 10-17-2024 Episodic Spondylosis; intervertebral disc disorders; other back problems (3 sources) Sacrococcygeal disorders, not elsewhere classified; Translations: [Sacrococcygeal disorders, not elsewhere classified] Onset: 05-22-2024 Episodic Unclassified (4 sources) Onset: 10-21-2012 Resolved: 11-22-2017 12-03-2017 NEGATED: Highlighted row has been ruled out!Unclassified (15 sources) No known active problems 05-22-2024 Results Test Name Value Interpretation Reference Range Facility US OB PLACENTAon 01-17-2025 [place] [address] Ultrasound Report Signed Patient: MEENA LUCERO MR#: [id number] : 1995 Acct:[id number] Age/Sex: 29 / F ADM Date: 01/16/25 Loc: US Attending Dr: Gary Robison D.O. Ordering Physician: Gary Robison D.O. Date of Service: 01/16/25 Procedure(s): US OB placenta Accession Number(s): [id number] cc: Gary Robison D.O.; Physician,Non-Staff M.DRosa [address] [address] Patient Name: MEENA LUCERO MRN: [id number] date: 1995 Sex: F Assigned Patient Location: Current Patient Location: [facility] Accession/Order Number: [id number] Exam Date: 01/16/2025 11:08 Report Date: 01/16/2025 11:19 At the request of: GARY ROBISON DO Procedure: US OB growth CLINICAL DATA: Suspected circumvallate placenta ULTRASOUND OB GROWTH COMPARISON: 12/12/2024 and 11/20/2024 There is a single live intrauterine gestation in cephalic presentation. There is cardiac and somatic activity with heart rate of 153 bpm. The amniotic fluid index measures 16.2 cm which is in normal range. The following measurements were obtained: Biparietal diameter 7.5 cm 30 weeks 0 days 87% Head circumference 28.2 cm 30 week 6 days 91% Abdominal circumference 24.3 cm 28 weeks 4 days 53% Femur length 5.6 cm 29 weeks 3 days 68% The composite ultrasound age based on these measurements is 29 weeks 5 days +/- 2 weeks 1 day. The estimated date of delivery based on today's measurements is 03/29/2025. The estimated weight is 3 lbs. 0 oz. +/- 7 ounces. US/US OB placenta IMPRESSION: SINGLE LIVE INTRAUTERINE GESTATION WITH TODAY'S ULTRASOUND AGE OF 29 WEEKS 5 DAYS. ULTRASOUND OB PLACENTA COMPARISON: 12/12/2024 There is a grade 1 posterior placenta. There is no suspected circumvallate placenta on today's exam. No previa is noted. IMPRESSION: NO APPARENT PLACENTAL ABNORMALITY. Impression dictated by: Marlene Orellana M.D.01/16/2025 11:19 AM Dictation Location: [place] [address] Electronically authenticated by: [id number] Y Date: 01/16/2025 11:19 Dictated By: Marlene Orellana M.D. 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 Ordering Physician: Gary Robison D.O. Date of Service: 01/16/25 Procedure(s): US OB placenta Accession Number(s): [id number] cc: Gary Robison D.O.; Physician,Non-Staff Del The [place] [id number] Patient Name: MEENA LUCERO MRN: [facility]:[id number] date: 1995 Sex: F Assigned Patient Location: Current Patient Location: [facility] Accession/Order Number: [id number] Exam Date: 01/16/2025 11:08 Report Date: 01/16/2025 11:19 At the request of: GARY ENRIQUETA DO Procedure: US OB growth CLINICAL DATA: Suspected circumvallate placenta ULTRASOUND OB GROWTH COMPARISON: 12/12/2024 and 11/20/2024 There is a single live intrauterine gestation in cephalic presentation. There is cardiac and somatic activity with heart rate of 153 bpm. The amniotic fluid index measures 16.2 cm which is in normal range. The following measurements were obtained: Biparietal diameter 7.5 cm 30 weeks 0 days 87% Head circumference 28.2 cm 30 week 6 days 91% Abdominal circumference 24.3 cm 28 weeks 4 days 53% Femur length 5.6 cm 29 weeks 3 days 68% The composite ultrasound age based on these measurements is 29 weeks 5 days +/- 2 weeks 1 day. The estimated date of delivery based on today's measurements is 03/29/2025. The estimated weight is 3 lbs. 0 oz. +/- 7 ounces. US/US OB placenta IMPRESSION: SINGLE LIVE INTRAUTERINE GESTATION WITH TODAY'S ULTRASOUND AGE OF 29 WEEKS 5 DAYS. ULTRASOUND OB PLACENTA COMPARISON: 12/12/2024 There is a grade 1 posterior placenta. There is no suspected circumvallate placenta on today's exam. No previa is noted. IMPRESSION: NO APPARENT PLACENTAL ABNORMALITY. Impression dictated by: Marlene Orellana M.D.01/16/2025 11:19 AM Dictation Location: [place] [address] Electronically authenticated by: [id number] Y Date: 01/16/2025 11:19 Dictated By: Marlene Orellana M.D. Signed By: 01/17/25 1034 DD/ 1119 TD/TT: Ice Cream Truck Driver: [facility] Code[facility]ars OB PLACENTAOrdered By: Ra duncan Radiology on [facility]-17-2025 [facility] Work Phone: No Panel Informationon 01-16 Radiology Study observation (narrative) [facility]OWTHon 01-16-[address] [address] Ultrasound Report Signed Patient: MEENA LUCERO MR#: [id number] : 1995 Acct:[id number] Age/Sex: 29 / F ADM Date: 01/16/25 Loc: US Attending Dr: Gary Robison D.O. Ordering Physician: Gary Robison D.O. Date of Service: 01/16/25 Procedure(s): US OB growth Accession Number(s): [id number] cc: Gary Robison D.O.; Physician,Non-Staff Del [place] [id number] Patient Name: MEENA LUCERO MRN: [facility]:[id number] date: 1995 Sex: F Assigned Patient Location: Current Patient Location: US Accession/Order Number: [id number] Exam Date: 01/16/2025 11:08 Report Date: 01/16/2025 11:19 At the request of: GARY ROBISON DO Procedure: US OB growth CLINICAL DATA: Suspected circumvallate placenta ULTRASOUND OB GROWTH COMPARISON: 12/12/2024 and 11/20/2024 There is a single live intrauterine gestation in cephalic presentation. There is cardiac and somatic activity with heart rate of 153 bpm. The amniotic fluid index measures 16.2 cm which is in normal range. The following measurements were obtained: Biparietal diameter 7.5 cm 30 weeks 0 days 87% Head circumference 28.2 cm 30 week 6 days 91% Abdominal circumference 24.3 cm 28 weeks 4 days 53% Femur length 5.6 cm 29 weeks 3 days 68% The composite ultrasound age based on these measurements is 29 weeks 5 days +/- 2 weeks 1 day. The estimated date of delivery based on today's measurements is 03/29/2025. The estimated weight is 3 lbs. 0 oz. +/- 7 ounces. US/US OB growth IMPRESSION: SINGLE LIVE INTRAUTERINE GESTATION WITH TODAY'S ULTRASOUND AGE OF 29 WEEKS 5 DAYS. ULTRASOUND OB PLACENTA COMPARISON: 12/12/2024 There is a grade 1 posterior placenta. There is no suspected circumvallate placenta on today's exam. No previa is noted. IMPRESSION: NO APPARENT PLACENTAL ABNORMALITY. Impression dictated by: Marlene Orellana M.D.01/16/2025 11:19 AM [facility]ictation [facility] Electronically authenticated by: [id number] Y Date: 01/16/2025 11:19 Dictated By: Marlene Orellana M.D. Signed By: 01/16/25 1122 DD/ 1119 TD/TT: Ice Cream Truck Driver: [facility] Radiology, Radiologist, - 01/16/2025 [place] [address] Ultrasound Report Signed Patient: MEENA LUCERO MR#: [id number] : 1995 Acct:[id number] Age/Sex: 29 / F ADM Date: 01/16/25 Loc: US Attending Dr: Gary Robison D.O. Ordering Physician: Gary Robison D.O. Date of Service: 01/16/25 Procedure(s): US OB growth Accession Number(s): [id number] cc: Gary Robison D.O.; Physician,Non-Staff Del The [place] [id number] Patient Name: MEENA LUCERO MRN: [facility]:[id number] date: 1995 Sex: F Assigned Patient Location: US Current Patient Location: US Accession/Order Number: [id number] Exam Date: 01/16/2025 11:08 Report Date: 01/16/2025 11:19 At the request of: GARY ROBISON DO Procedure: US OB growth CLINICAL DATA: Suspected circumvallate placenta ULTRASOUND OB GROWTH COMPARISON: 12/12/2024 and 11/20/2024 There is a single live intrauterine gestation in cephalic presentation. There is cardiac and somatic activity with heart rate of 153 bpm. The amniotic fluid index measures 16.2 cm which is in normal range. The following measurements were obtained: Biparietal diameter 7.5 cm 30 weeks 0 days 87% Head circumference 28.2 cm 30 week 6 days 91% Abdominal circumference 24.3 cm 28 weeks 4 days 53% Femur length 5.6 cm 29 weeks 3 days 68% The composite ultrasound age based on these measurements is 29 weeks 5 days +/- 2 weeks 1 day. The estimated date of delivery based on today's measurements is 03/29/2025. The estimated weight is 3 lbs. 0 oz. +/- 7 ounces. US/US OB growth IMPRESSION: SINGLE LIVE INTRAUTERINE GESTATION WITH TODAY'S ULTRASOUND AGE OF 29 WEEKS 5 DAYS. ULTRASOUND OB PLACENTA COMPARISON: 12/12/2024 There is a grade 1 posterior placenta. There is no suspected circumvallate placenta on today's exam. No previa is noted. IMPRESSION: NO APPARENT PLACENTAL ABNORMALITY. Impression dictated by: Marlene Orellana M.D.01/16/2025 11:19 AM Dictation Location: [place] Electronically authenticated by: [id number] Y Date: 01/16/2025 11:19 Dictated By: Marlene Orellana M.D. Signed By: 01/16/25 1122 DD/ 1119 TD/TT: Ice Cream Truck Driver: [facility] OB GROWTHOrdered By: Braxton ologrolo Radiology on 01-16-2025 [facility] Work Phone: Urinalysis macro (dipstick) panel (U)on 01-16-2025 Bilirubin, UA Negative Negative - 4(70) +++ mg/dL [facility] Blood, UA Negative Negative - 50 Darnell/mcL [facility] Clarity, UA Clear [facility] Color, UA Yellow [facility] Glucose, UA Negative Negative - 1999(110) ++++ mg/dL [facility] Interpretation and review of laboratory results Abnormal [facility] re Ketones, UA Negative Negative - 160(16) ++++ mg/dL [facility] Leukocytes, UA Moderate Negative - 500+++ Shona/mcL [facility] Nitrite, UA Negative Negative - Positive [facility] pH, UA 7 5 - 9 [facility] Protein, UA Negative Negative - 1999(20) ++++ mg/dL [facility] Spec Grav, UA 1.015 1 - 1.03 [facility] Urobilinogen, UA 0.2 0.2 - 12 mg/dL [facility] ALL PLATELET COUNTon 025 Interpretation and review of laboratory results Abnormal [facility] PLT 139 Low [facility] ALL CBC WITH AUTO DIFFon BASOPHILS ABSOLUTE AUTO 0 [facility] Basophils/100 WBC (Bld) 0.2 % 0.2 - 2.0 % [facility] Eosinophils/100 WBC (Bld) 0.9 % 0.9 - 7.0 % [facility] Erythrocyte distribution width (RBC) [Ratio] 13.2 % 11.0 - 15.0 % [facility] Hematocrit (Bld) [Volume fraction] 34.6 % Low 36.0 - 48.0 % [facility] Hemoglobin (Bld) [Mass/Vol] 11.5 g/dL Low 12.0 - 16.0 g/dL [facility] IMMATURE GRANULOCYTES ABS AUTO 0.02 [facility] Immature granulocytes/100 WBC (Bld) 0.3 % 0.0 - 0.5 % [facility] Interpretation and review of laboratory results Abnormal [facility] LYMPHOCYTES ABSOLUTE AUTO 1.3 [facility] Lymphocytes/100 WBC (Bld) 22 % 20.5 - 60.0 % [facility] MCH (RBC) [Entitic mass] 28.8 pg 26.7 - 34.0 pg [facility] MCHC (RBC) [Mass/Vol] 33.2 g/dL 29.9 - 35.2 g/dL [facility] MCV (RBC) [Entitic vol] 86.5 fL 81.0 - 99.0 fL [facility] MONOCYTES ABSOLUTE AUTO 0.4 [facility] Monocytes/100 WBC (Bld) 7.2 % 1.7 - 12.0 % [facility] NEUTROPHILS ABSOLUTE AUTO 4 [facility] Neutrophils/100 WBC (Bld) 69.4 % 43.0 - 75.0 % [facility] Platelet mean volume (Bld) [Entitic vol] 11.7 fL 9.5 - 13.5 fL [facility] TBH EO # 0.1 [facility] TBH PLT 117 Low [facility] TBH RBC 4 Low [facility] TB WBC 5.7 [facility] Urinalysis macro (dipstick) panel (U)on 12-19-2024 Bilirubin, UA Negative Negative - 4(70) +++ mg/dL [facility] Blood, UA Negative Negative - 50 Darnell/mcL [facility] Clarity, UA Clear [facility] Color, UA Yellow [facility] Glucose, UA Positive Negative - 1999(110) ++++ mg/dL [facility] Comment on above: 100 mg Interpretation and review of laboratory results Abnormal [facility] Ketones, UA Negative Negative - 160(16) ++++ mg/dL [facility] Leukocytes, UA Positive Negative - 500+++ Shona/mcL [facility] Comment on above: small Nitrite, UA Negative Negative - Positive [facility] pH, UA 7 5 - 9 [facility] e Protein, UA Negative Negative - 1999(20) ++++ mg/dL [facility] Spec Grav, UA 1.02 1 - 1.03 [facility] Urobilinogen, UA 0.2 0.2 - 12 mg/dL [facility] Urinalysis macro (dipstick) panel (U)on 11-20-2024 Bilirubin, UA Negative Negative - 4(70) +++ mg/dL [facility] Blood, UA Negative Negative - 50 Darnell/mcL [facility] Clarity, UA Clear [facility] Color, UA Yellow [facility] Glucose, UA Negative Negative - 1999(110) ++++ mg/dL [facility] Interpretation and review of laboratory results Abnormal [facility] Ketones, UA Negative Negative - 160(16) ++++ mg/dL [facility] Leukocytes, UA Positive Negative - 500+++ Shona/mcL [facility] Comment on above: small Nitrite, UA Negative Negative - Positive [facility] pH, UA 7.5 5 - 9 [facility] Healthcar e Protein, UA Negative Negative - 1999(20) ++++ mg/dL [facility] Spec Grav, UA 1.015 1 - 1.03 [facility] Urobilinogen, UA 0.2 0.2 - 12 mg/dL [facility] IGP,APTIMA HPV,AGE GDLNon AGE GDLN ACOG TESTING Note . [facility] Comment on above: TESTS RESULT FLAG UN ITS REF RANGE LAB Clinician Provided Cytology Information Source.............Cervix No. of containers..01 ThinPrep Vial Age Jermain Mascorro... FLAG LEGEND: L-Low Normal,H-High Normal,LL-Alert Low,HH-Alert High <-Panic Low,>-Panic High,A-Abnormal,AA-Critical Abnormal Performed at: 01 =[facility] [address] Yulisa Mustafa MD, IGP, RFX APTIMA HPV ASCU Note . [facility] Comment on above: TESTS RESULT FLAG UN ITS REF RANGE LAB DIAGNOSIS: 02 NEGATIVE FOR INTRAEPITHELIAL LESION OR MALIGNANCY. FUNGAL ORGANISMS MORPHOLOGICALLY CONSISTENT WITH FELIPE SPECIES ARE PRESENT. Specimen adequacy: 02 Satisfactory for evaluation. Endocervical and/or squamous metaplastic cells (endocervical component) are present. Performed by: 02 Susan Boucher, Manager Care ([facility]) . 02 Note: Note 03 [...] <-Panic Low,>-Panic High,A-Abnormal,AA-Critical Abnormal Performed at: [address] [address] Pily Shields PhD, [address] [address] Yulisa Mustafa MD, Performed at: =[facility] [id number] Research Spec: Yulisa Mustafa MD, Phone: [phone] Performed at: [place] [address] [place], [place] [id number] Research Spec: Pily Shields PhD, Phone: [phone] [facility] RECURRENT VAGINITIS (HTRX)on 10-18-2024 ATOPOBIUM VAGINAE 0 [facility] ATOPOBIUM VAGINAE Not detected [facility] BVAB 2,3 (BACTERIAL VAGINOSIS ASSOCIATED BACTERIA 2, 3); MOBILUNCUS SPP 0 [facility] BVAB 2,3 (BACTERIAL VAGINOSIS ASSOCIATED BACTERIA 2, 3); MOBILUNCUS SPP Not detected [facility] FELIPE ALBICANS, PARAPSILOSIS, TROPICALIS 0 [facility] FELIPE ALBICANS, PARAPSILOSIS, TROPICALIS Not detected [facility] FELIPE GLABRATA 0 [facility] FELIPE GLABRATA Not detected [facility] FELIPE KRUSEI 0 [facility] [facility] FELIPE KRUSEI Not detected [facility] CHLAMYDIA TRACHOMATIS 0 [facility] CHLAMYDIA TRACHOMATIS Not detected [facility] GARDNERELLA VAGINALIS 0 [facility] GARDNERELLA VAGINALIS Not detected [facility] MEGASPHAERA (TYPES 1, 2) 0 [facility] MEGASPHAERA (TYPES 1, 2) Not detected [facility] MYCOPLASMA GENITALIUM 0 [facility] MYCOPLASMA GENITALIUM Not detected [facility] NEISSERIA GONORRHOEAE 0 [facility] NEISSERIA GONORRHOEAE Not detected [facility] TRICHOMONAS VAGINALIS 0 [facility] TRICHOMONAS VAGINALIS Not detected [facility] Urinalysis macro (dipstick) panel (U)on 10-17-2024 Bilirubin, UA Negative Negative - 4(70) +++ mg/dL [facility] Comment on above: n Blood, UA Negative Negative - 50 Darnell/mcL [facility] Clarity, UA Clear [facility] Color, UA Yellow [facility] Glucose, UA Negative Negative - 1999(110) ++++ mg/dL [facility] Interpretation and review of laboratory results Normal [facility] Ketones, UA Negative Negative - 160(16) ++++ mg/dL [facility] Leukocytes, UA Negative Negative - 500+++ Shona/mcL [facility] Nitrite, UA Negative Negative - Positive [facility] pH, UA 6 5 - 9 [facility] Protein, UA Negative Negative - 1999(20) ++++ mg/dL [facility] Spec Grav, UA 1.03 1 - 1.03 [facility] Urobilinogen, UA 0.2 0.2 - 12 mg/dL [facility] Urinalysis macro (dipstick) panel (U)on 09-18-2024 Bilirubin, UA Negative Negative - 4(70) +++ mg/dL [facility] Blood, UA Negative Negative - 50 Darnell/mcL [facility] Clarity, UA Clear [facility] Color, UA Yellow [facility] Glucose, UA Negative Negative - 1999(110) ++++ mg/dL [facility] Interpretation and review of laboratory results Normal [facility] Ketones, UA Negative Negative - 160(16) ++++ mg/dL [facility] Leukocytes, UA Negative Negative - 500+++ Shona/mcL [facility] Nitrite, UA Negative Negative - Positive [facility] pH, UA 6.5 5 - 9 [facility] Protein, UA Negative Negative - 1999(20) ++++ mg/dL [facility] Spec Grav, UA 1.015 1 - 1.03 [facility] Urobilinogen, UA 0.2 0.2 - 12 mg/dL [facility] BOX TESTon 09-11-2024 BOX TEST SENT OUT EDGAR ALEMAN [facility] BOX1 [facility] BOX2 11/11/24 [facility] ( test) Ql (U)o n 08-18-2024 Interpretation and review of laboratory results Abnormal [facility] Preg Test, Ur Positive [facility] Urinalysis macro (dipstick) panel (U)on 08-18-2024 Bilirubin, UA Negative Negative - 4(70) +++ mg/dL [facility] Blood, UA Negative Negative - 50 Darnell/mcL [facility] Clarity, UA Clear [facility] Color, UA Yellow [facility] e Glucose, UA Negative Negative - 1999(110) ++++ mg/dL [facility] Interpretation and review of laboratory results Abnormal [facility] re Ketones, UA Negative Negative - 160(16) ++++ mg/dL [facility] Leukocytes, UA Negative Negative - 500+++ Shona/mcL [facility] Nitrite, UA Positive Negative - Positive [facility] Comment on above: small pH, UA 7.0 5 - 9 [facility] Protein, UA Negative Negative - 1999(20) ++++ mg/dL [facility] Spec Grav, UA 1.015 1 - 1.03 [facility] Urobilinogen, UA 0.2 0.2 - 12 mg/dL [facility] ALL HCG, QUANTITATIVEon 07-23 Interpretation and review of laboratory results Abnormal [facility] MHPT HCG, QUANT 45260.0 High NINF [facility] th[facility] Comment on above: Non-preg premeno <=5 Postmeno <=8 Male <=3 If HCG results do not concur with clinical observations, additional testing to confirm results is recommended. Original Ordering Provider: GARY [facility]I [facility] HCG, Quanton 08-07-2024 HCG, Quant 23338.0 mIU/mL High <5 [facility] Comment on above: Result Comment: Non-preg premeno <=5 Postmeno <=8 Male <=3 If HCG results do not concur with clinical observations, additional testing to confirm results is recommended. Performed By: #### B HCG #### [facility] [address] [place] [address] Research Spec: Armen Madrigal MD HCG, Quantitative, on 08-07-2024 [place] [address].0 m[IU]/mL High NINF [facility] Comment on above: Non-preg premeno <=5 Postmeno <=8 Male <=3 If HCG results do not concur with clinical observations, additional testing to confirm results is recommended. Interpretation and review of laboratory results Abnormal [facility] ALL HCG, QUANTITATIVEon 07-23 Interpretation and review of laboratory results Abnormal [facility] MHPT HCG, QUANT 1366.0 High NINF [facility] Comment on above: Non-preg premeno <=5 Postmeno <=8 Male <=3 If HCG results do not concur with clinical observations, additional testing to confirm results is recommended. Original Ordering Provider: [facility] HCG, Quanton 08-02-2024 HCG, Quant 1366.0 mIU/mL High <5 [facility] Comment on above: Result Comment: Non-preg premeno <=5 Postmeno <=8 Male <=3 If HCG results do not concur with clinical observations, additional testing to confirm results is recommended. Performed By: #### B HCG #### [facility] [address] [place] [address] Research Spec: Armen Madrigal MD ALL HCG, QUANTITATIVEon Interpretation [...] Quant 506.3 mIU/mL High <5 [facility] Comment on above: Result Comment: Non-preg premeno <=5 Postmeno <=8 Male <=3 If HCG results do not concur with clinical observations, additional testing to confirm results is recommended. Performed By: #### B HCG #### [facility] [address] [place] [address] Research Spec: Armen Madrigal MD HCG, Quantitative, on 07-31-2024 HCG.beta subunit Qn 506.3 m[IU]/mL High NINF [facility] Comment on above: Non-preg premeno <=5 Postmeno <=8 Male <=3 If HCG results do not concur with clinical observations, additional testing to confirm results is recommended. Interpretation and review of laboratory results Abnormal [facility] ALL HCG, QUANTITATIVEon Interpretation and review of laboratory results Abnormal [facility] MHPT HCG, QUANT 200.3 High NINF [facility] Comment on above: Non-preg premeno <=5 Postmeno <=8 Male <=3 If HCG results do not concur with clinical observations, additional testing to confirm results is recommended. Original Ordering Provider: GARY AGUILAR DO [facility] HCG, Quanton 07-29-2024 HCG, Quant 200.3 mIU/mL High <5 [facility] Comment on above: Result Comment: Non-preg premeno <=5 Postmeno <=8 Male <=3 If HCG results do not concur with clinical observations, additional testing to confirm results is recommended. Performed By: #### B HCG #### [facility] [address] [address] Research Spec: Armen Madrigal MD ALL HCG SERUM,QUALITATIVEon 07-27-2024 Interpretation and review of laboratory results Abnormal [facility] MHPT HCG SCREEN, BLOOD Positive Abnormal NEG [facility] Comment on above: If HCG results do not concur with clinical observations, additional testing to confirm result is recommended. This test is not labeled for use as a tumor marker. [facility] has confirmed the use of plasma for this test. This has not been cleared or approved by the U.S. Food and Drug Administration. The FDA has determined that such clearance is not necessary. Original Ordering Provider: [facility] HCG Screen, Bloodon 07-27-20 24 HCG Screen, Blood Positive Abnormal NEG [facility] Comment on above: Result Comment: If HCG results do not concur with clinical observations, additional testing to confirm result is recommended. This test is not labeled for use as a tumor marker. [facility] has confirmed the use of plasma for this test. This has not been cleared or approved by the U.S. Food and Drug Administration. The FDA has determined that such clearance is not necessary. Performed By: #### H CG #### [facility] [address] [place] [address] Research Spec: Armen Madrigal MD HCG, Quanton 07-27-2024 HCG, Quant 73.4 mIU/mL High <5 [facility] Comment on above: Result Comment: Non-preg premeno <=5 Postmeno <=8 Male <=3 If HCG results do not concur with clinical observations, additional testing to confirm results is recommended. Performed By: #### B HCG #### [facility] [address] [place] [address] Research Spec: Armen Madrigal MD HCG, Quanton 06-08-2024 HCG, Quant <1.0 Normal <5 [facility] Comment on above: Result Comment: Non-preg premeno <=5 Postmeno <=8 Male <=3 If HCG results do not concur with clinical observations, additional testing to confirm results is recommended. Performed By: #### B HCG #### [facility] [address] [place] [address] Research Spec: Armen Madrigal MD XR SACRUM COCCYX (MIN 2 VIEW S)on 05-24-2024 XR SACRUM COCCYX (MIN 2 VIEWS) HISTORY: Sacral pain. TECHNIQUE: 3 views sacrum and coccyx. COMPARISON: None. FINDINGS: Sacroiliac joints are normal. No fracture or acute osseous abnormality is identified. IMPRESSION: No acute process. Interpreted by: Parker Coleman MD Signed by: Parker Coleman MD 05/24/[address] [facility] HCG, Quanton 03-04-2024 HCG, Quant 3680.0 mIU/mL High <5 [facility] Comment on above: Result Comment: Non-preg premeno <=5 Postmeno <=8 Male <=3 If HCG results do not concur with clinical observations, additional testing to confirm results is recommended. Performed By: #### B HCG #### [facility] [address] [place] [address] Research Spec: Armen Madrigal MD Cytology Cervical or vaginal smear or scraping studyon 05-26-2023 [facility] RAD - MISCon 02-01-2023 RAD - MISC [id number] #1.00CD:127 Normal [facility] XR ANKLE RIGHT (MIN 3 VIEWS) on 01-29-2023 FINDINGS/IMPRESSION: 1. Compression fracture tip of the fibula no longer separately seen. 2. Anatomic alignment throughout. 3. Soft tissue swelling has resolved. [facility] EXAM: XR ANKLE RIGHT (MIN 3 VIEWS). HISTORY: Other closed fracture of proximal end of right fibula with routine healing, subsequent encounter. COMPARISON: 01/10/2023. [facility] Mauro Anton Jr., MD - 01/29/2023 EXAM: XR ANKLE RIGHT (MIN 3 VIEWS). HISTORY: Other closed fracture of proximal end of right fibula with routine healing, subsequent encounter. COMPARISON: 01/10/2023. IMPRESSION: FINDINGS/IMPRESSION: 1. Compression fracture tip of the fibula no longer separately seen. 2. Anatomic alignment throughout. 3. Soft tissue swelling has resolved. [facility] Work Phone: Radiology Study observation (narrative) ByRead Phone: XR ANKLE RIGHT (MIN 3 VIEWS) Ordered By: Mauro Anton on 01-29-2023 ByRead Phone: RAD - MISCon 01-11-2023 RAD - MIS [id number] #1.00CD:127 Normal [facility] XR ANKLE RIGHT (MIN 3 VIEWS) on 01-10-2023 FINDINGS/IMPRESSION: 1. Very small nondisplaced incomplete fracture is questioned in the distal tip of the right fibula, with mild surrounding soft tissue swelling. 2. No other fracture, malalignment, significant arthritis or acute bony abnormality is seen. [facility] CLINICAL HISTORY: Right ankle pain and swelling since an injury yesterday. RIGHT ANKLE 3 VIEWS: [facility] João Amezquita MD - 01/10/2023 CLINICAL HISTORY: Right ankle pain and swelling since an injury yesterday. RIGHT ANKLE 3 VIEWS: IMPRESSION: FINDINGS/IMPRESSION: 1. Very small nondisplaced incomplete fracture is questioned in the distal tip of the right fibula, with mild surrounding soft tissue swelling. 2. No other fracture, malalignment, significant arthritis or acute bony abnormality is seen. By[employer] Phone: Radiology Study observation (narrative) ByRead Phone: XR ANKLE RIGHT (MIN 3 VIEWS) Ordered By: João Amezquita on 01-10-2023 ByRead Phone: Ambulatory Visit Summaryon 0 12-08-2022 Ambulatory Visit Summary MEENA LUCERO :1995 Visit Date:12/08/2022 Ambulatory Visit Instructions Your Diagnosis Gastroenteritis due to [place]-like virus Obesity due to excess calories BMI 31.0-31.9,adult Your Care Team Attending Physician - SUSAN BENAVIDEZ, [place] Primary Care Physician - ALDO MARIA, Charli Moreno This Is Your Medications List dicyclomine (dicyclomine [...] to 60 minutes before meals Pickup at [facility] Unchanged multivitamin, ( Multivitamins with Vitamin B Complex, Vitamin C, Minerals and L-Methylfolate oral capsule) 1 Capsules By Mouth Every day Contact prescribing physician if questions or concerns Unchanged ondansetron (Zofran ODT 4 mg Tab-Dis) 1 Tablets By Mouth 3 times a day Contact prescribing physician if questions or concerns Pharmacy Information [facility]: [address], [place] [id number] [phone] Medications and Immunizations Administered Not Given influenza virus vaccine, inactivated, Postpone due to refusal SARS-CoV-2 mRNA (tozinameran 5y-11y) vac, Postpone due to refusal Allergies Percocet 5/325 (Hives, Rash) Vicodin (Hives) codeine (Hives, Rash) Problems Ongoing - Any problem that you are currently receiving treatment for. BMI 31.0-31.9,adult Gastroenteritis due to [place]-like virus Non-smoker Obesity due to excess calories [...] 1 years old. ? Live in a alf. ? Travel on cruise ships. What are [...] immune system (more content not included)... Normal [facility] ED Note-Physicianon 12-08-19 ED Note-Physician [id number] #1.00CD:127 Normal [facility] Medicine Office/Clini c Noteon 12-08-2022 Family Medicine [...] and COVID. 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 She has [employer] water. Has not had any recent antibiotics [...] Cooperative insightful Assessment/Plan 1. 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 Normal [facility] Comment on above: Result Comment: Elec [...] 1 years old. ? Live in a alf. ? Travel on cruise ships. What are [...] and water are not available, use hand magazine grinder loader. ? Make sure that all people in your household wash their hands well and often. ? Take zmpw-mkp-rxrauji and prescription medicines only as told by [...] to person (more content not included)... Normal [facility] COVID-19, Rapidon 12-04-2022 SARS-CoV-2 (COVID-19) RNA WADE+probe Ql (Unsp spec) Not detected Not Detected [facility] Comment on above: Rapid NAAT: The [...] management decisions. Fact sheet for Healthcare Providers: https://www.fda.gov/media/756474/download Fact sheet for Patients: https://www.fda.gov/media/242317/download Methodology: Isothermal Nucleic Acid Amplification Specimen Description .NASOPHARYNGEAL SWAB [facility] Rapid influenza A/B antigens on 12-04-2022 Flu A Antigen Negative NEGATIVE [facility] Comment on above: for Influenza A Anti gen Flu B Antigen Negative NEGATIVE [facility] Comment on above: for Influenza B Anti gen. [facility] C Urineon 09-06-2022 Bacteria identified Cx [...] Locations R1: This test was performed at: [facility], [address] [place] [address], [facility] , , Normal [facility] Comment on above: Performed By: #### 2 [id number] ####[place] [address] Coding Summary.on 09-04-2022 Coding Summary. [id number] Gh0bWw+PGhlYWQ+PE1FV UJyC79aoGVotF7FC7iJJ U0WDLAFJXRRKF1MIM4uk OL5HDsuA1JdxdXd EklvuJLsTA27EJd3UIZ6 fXoeZCfchO4hhQJoB3f3 YiUjGR11vG61EMpnLZBo SpZ9MvNlhsotaSMl J8noYqNwwEAsVtj+PHRh YmxlIHdpZHRoPScxMDAl ZsQugFfyTM5vFx3aZPFf LWNvbGxhcHNlOiBj g3mtRUZwKPvoZT0bcOuh B9EchRB4SNJzx4r5Op09 dHI+LWUuLPI9nYakUGyh v795EaOez3slXOK1 wGIeVCqoEQM7A35ag3H5 BSExQPVbWUJ8oRA1pP3y xVbejdnvR3TtpEXqXlH9 UQI7sMAywS0tlOvp avosvV8wKem+C33KMR9N XPSDNV7FUok6U4SgFkri dHI+FE40JOIkKH83uXEz rYSmg9hdxIz5JuAb CETeBLZ8wFxmAKthy2Ox CKOdZ02hqAKsm4M6EQYq oMmgmBMtGcUejUR9jI0q QIaehvbai8scfcqp Hlqji8ijkd60yS56G98d TGfvERIaBNN7DQJiRHZx dJxmnp5spO3tSb5+IDxj v9fgp7dlxIx1JgNw TDDpfjLteIzgCQQ5j0Qi Ag28D7QivKbfb3FlJzy9 ul18yTWsa1U2xNE4TQkk HTEafB9mRFkvPeN1 RNPqDwUywJ27vAZzVXww Fr2kkIxnlLtmVK7qWKYb dhfvWFEgkJ6uPSDeaAVr wBdbZY2xRBIolyxe l192YkVqITN6WEAsyAHy Q8MfxY9mBnUpSPAtIFYv Y5VmwCOqERbgM850EGdp VqX5LCSuzeYxT7Qm GEPkwGskQbB7l8K0Yl8K v1CnfgxlZNS0CKoqFMLf TxS8DeOcLrI5C4RuOrk3 JUTngIbnQO1sE1Fo NHEcaglkcdvgqHE7FNDn PCUpzH48lVQyQFqcKr2z a6K7j159SXZtQKOofI45 Iu1guMetEVFteMCI vD8yfgluk9ircfhgRfDn RZMhYUx5GWg0IIMsyBbu NdTkQHD3UnE9KGA1cYJo eR4ayDrhrwomuL4k Oyc+S37roJ3bNXQ5EGU2 jlslEAYtgjDzNA85XC92 Z6SlYbrmaKNwuVG+PGRp wxEocEihUI0fPgBz j7kvf6TpXJpjJ5XqPDHv HViqNmo5ODHkGMI9tKB9 zC8oJTGoBUxsr0C5iZR9 K8OoakCayf9yv0js DWZhNIhkJ03puYNiv4Q5 IRFhdVN3TMXwtGqrTyXr bN96Jvp+ENQvoMadr5Rw Jgqqv0xvz6bpgBk5 IjMwJSIgdmFsaWduPSJ0 m5SaTf13B49pSTwaATMq XMBeZXJiYGVvuZkvcr3t gB8fWo4+PGNvbCB3 pCB5tV4wUWZvSuS2BNph R539EpPpmHHsMkned8la j2ndnTp6CoSlKHOivjFb mWklNKO4m1WyKm85 R92oMOafILCmAJShWFRr NSNgiGvrng7zsK7aGr9+ GF6hw9euuf72rN24bPM+ NLYjCRE9sFydTQgx LKGxoJ4jBHjkUxX5BYEd BmWoyS25iVQvXTetSo0k tKvsvPylFU3bKAVnfnea c850JmLoy5kkDZOe mCAnSHhqWGJ2I29oe0C5 OOQkKTNrPYZ5mQH9uS0k bGlnbjogbGVmdDsgdmVy yGywPWtcNEaoY615 IHRvcDsnPlBhdGllbnQg LdWfWWv3C3HbXrq4QQMf aRowEW7egBWtHWhnUm4j fMfagDdeTU6qEIAv bvmeb660HgRai3obGSMs wNZwDByrKBS4J16hd1Z2 RKLoEQNyWYF6nYD5eJ7k bGlnbjogbGVmdDsg olPuoTuwCPkwVJffV933 IHRvcDsnPkJpcnRoIERh lXK5TC32BG44sDCrf5R9 lNB0K0NxDRKifzoo yehglCG6KFEhRGQppF43 Da6piOwmVn5uJPQuASZ1 HUTucAKvJ2AywX6vBwIr QWExOSFcD8MvcBSu KRwpC587NRdgKcN8IMMq veWjB3PnJJBplGlkElE8 v2C8Xt2LX1F8LO03VD70 vGGpm0S6gAH3O0Sl MGZtolwdpplatZA5LYVm HHUvvG86Gk4ppTowOu1x JMGpCBD4RGBygDPaG4Ee lZ7xYnGvMMIwHIFs B1SqdYCnFSuyC890UWqw BrS5MBFxjyMqL8UvLGVs sHolBuU4e2S7Mc1QHWw2 WI99TN88mSOwy2I5 gZD3Z9HjQYEsudoxqugh gUY9IOIgCAWyrH63Oz7f iCrhKx1kBPHsCMX6TLPh oUCzH5GnwE5nXmDs CINrUSOtC9GuyMZyFZjd S205VIqcTrU3ATAgmyWy L8PqUVUqnEzqEhJ1q1H4 Tk1BHTWgWQ97KHI5 kVU3YC05MC79I2YyAcwx dGFibGU+PHRhYmxlIHdp ZHRoPScxMDAlJyBzdHls XZ0dJk7oNUJtNWMw kIxctINrFfEls1mhHODp CFumOD6zmDenC1ExbSK1 HDUdf0h4Xl58T18mN9Dn dXA+GOZmfXI4gWL7 fJ2mOxCcHtJ1RZtqN923 SuPlhRCcCyubw0uac6ny qSv0SgG5EPJuclXvrRsa ONE5t3JqOh59V84a IHdpZHRoPSIxNSUiIHZh zBdxoq9pjS4eOo6+PGNv vSA7iRM4rC9oSnWhYbJ4 PJczV323ToMauJVr Xcbiw2pvn7yspDn3JkFf SFYewuBsdEolGAR6d0Vd Ti39U1TpjFaiv0TbVfn6 tx18wCTdt8U9dTR5 G1AwWQOfhoslsZExxYfp EA3kAUZhckvuWGQumZ8l MIHwK7x2QpVtFuT8UPec O2AgcnI4YLPxjAOo IMwyVSM3C57ft9B2QFMw BORsBOZ6hQK2eT0knHlj bjogbGVmdDsgdmVydGlj EFtdMZtzB835ZSTn jWgnXKRmcN0iWWYxqQSz eRwuIJ1bPWBcybuqUlSE Qc6GMWVgWSuXQDbBUO9u RTwvdGQ+PHRkIHN0 wErxLAmuGZXlfL4nIPUc O1h7BdVpCeW0KHrcO6Og PSPoyapvHz60eN2hWxLa VdN1ICilJ4SqbyP5 GFQdbNRvIIzpIDQ8S34j v7S6JONlYZWlZBT7sLC4 wB0caNqtwengaNOtsLyo dmVydGljYWwtYWxp U914IAPcxRhsXtUsStC5 JbR5ZMQ4T9PmXss6HPIy uHxnVU9hqEWvDGfbFs3v fBrjuEjzSL4yVZBi njwnZAWxnQ5nXRVgqESt hCjuMP1hJRUpzxivl388 LqRgTLB4TARbmWQiS0Da aM8iCaDjSHFsTCIi T1QkwWTpLWeeN337PWza LeR6NHRazsKiD2BiHEKk vMlvTlM6q8H9Px0wNbKO ZWFyczwvdGQ+PHRk KHQ8gGjxGFrsWDAbpB3b LRUnX1c7UeVkZbS8ZNbp C4DoMSQpuzpsCr90aR0p NpIfWzD8VVmqP7Zi kyE8YRTepKTmNCceMRC8 W11au3Q0TFZdPHHaDZB5 gTT5oX3iqTbdcpspxKDw dDsgdmVydGljYWwt BDavG089ANWuiMxvOjCb bWFsZTwvdGQ+PHRkIHN0 kTopNGwfYVDtaD8cYSTs Y2a3UbPzUcX3FIpi T2HqMZIyqhwcSc33jG1j LtQsWcY2IPyuR9NehtI8 NJOyfCNsTDocURN2E03v t3L5PZBmNGFzDUO2 hLZ5rL5prZakkodwjEDo dDsgdmVydGljYWwtYWxp K727YYOtuLgtOrNeQJNa CI9rnBxeyGX+PC90 yw45F5ArCszyZvd9QEYa CAR7aPR4mV9lUFDlLAhj f5G9xZY6K1MxiwMsds2a m3fqSRVmPBsrH80c xLUzy7R6BBYxdZC2BVMb nCaeXyRcwP84Oow+PGNv kYxxp5HnLksmx3zva6uk pYj0RgEuQSYgizUs bNlhUFH1y3HkLk39Q48d IHdpZHRoPSIzMCUiIHZh cJaswp8ojB1gTj5+PGNv kJE5mCO7nM0nWvDd WtY0ZTjqF841FwGfkXLw Ezxfy5yaj5fzmDo9CnLg GSEtiaXnwCulEBR8b5Mo Ar06X0QlqZhwy3Mq Gbd2cx30eZXcm0M2hVX9 E2JaMMVoslyvdZZhgZkd KF7eCHQdfoixAEMzoB7j UGRmD2l5JeVlXxF2 QLvwQ3FaeiJ8MEHadWPt CAJorZYUzU9sylhmx2ii fgzqMeKzMIYuHIp7NAn3 LWFsaWduOiBsZWZ0 OsQ4ZAW0cSTrtW7ynDzr udfzaR5tSsu+VFk8n0fj hZZvAJ7hpFE6BL50TD64 tKHeh4B4pVW8E7Mt ZJXmrntfripimMZ4XGHv AATfxV91Ui5voOppYz4m TXBpFNN8VIZgsSHvG8Ci eZ6bLrZhOBUdNPBc P4SgiQSvMCilQ589TFlc NeE7AUHzfwZlD3YuZAGo cJfnDaW3p1V2Tp0WBZ82 YD66XT73bVJbb9W7 vEX0P6MrSHHfwevgrdjn uLO6BBSaBAKupT35Tl1z kBxhWc8lIHNkWAB9YFSg jFPeQ8GocF9pKpRd WXPsENNjP3CxpCQrOOts Y352SUvdMmD8DXDhjcWq G9GsAZYymZleItW6b9Q2 Qy9FVw19UZ86EG94 sVMcr7B7uMV4I9DeSPSj ttsznijhlSO5WJOiQQCh fW68Qm5knQgrWd5uXBEg KIU6FDAxuGVeH3Wo lU6tCfSbJJCgDKKxG6Wl eGHfYPwuO305XWxdJiB3 TWOlecOgK1RpVXNgsFfv TjL9m0F4Jk3DBUls vsx0Y3VtEsnoeZO+PC90 EEBeQB91yUSczIVls0gj bIj0EhXqWLCyUQY5dTcw ZJyvy8BmOTXoB62s bGFw (more content not included)... Normal [facility] Consent for Treatmenton 08-22 Consent for Treatment [id number] #1.00CD:127 Normal [facility] Discharge Instructionson Discharge Instructions [id number] #1.00CD:127 Normal [facility] ED Clinical Summaryon 2021 ED Clinical Summary [address] [address] ED Clinical Summary Person Information Name: [facility] 26 [facility] : 1995 Sex: Female Language: Fijian PCP: Charli LOPEZ Marital Status: Single Visit [...] 09/03/2022 15:51:51 09/03/2022 15:51:51 09/03/2022 15:51:51 ADDRESS: [address] [place] [phone] PHYS DOC NOTES: MEDICAL INFORMATION: Prescriptions Given: New Medications [facility], [address], [place] [id number], [phone] ondansetron (Zofran ODT 4 mg Tab-Dis) 1 Tablets By Mouth 3 times a day. Refills: 0. Medications to Continue with No Changes Other Medications multivitamin, ( Multivitamins with Vitamin B Complex, Vitamin C, Minerals and L-Methylfolate oral capsule) 1 Capsules By Mouth every day. Refills: 0. PATIENT EDUCATION INFORMATION: Instructions: Nausea and Vomiting, Adult Follow up: With: Address: When: Charli [place] [phone] Business (1) In 3 days 09/06/2022 DIAGNOSIS: Nausea & vomiting Normal [facility] ED Note-Physicianon 09-03-20 ED Note-Physician Basic [...] TID, # 15 tab(s), Refills(s) 0, Pharmacy: [facility], 170, cm, 09/03/22 14:31:00 EDT, Height/Length [...] ALDO In 3 days 09/06/2022 EDT [address] [place] [address] Business (1) Additional Instructions: Patient Education Nausea and Vomiting, Adult Attestation Patient seen and evaluated by the physician plumber's assistant. Attending physician was present in the emergency department and supervised care. This visit was performed by both the physician and an APC. I performed all aspects of the MDM as documented. This report was transcribed using voice recognition software. Every effort was made to ensure accuracy, however, inadvertently computerized spray painting machine operator mistakes may be present. Appropriate [...] (09/03/22 14:49:0 (more content not included)... Normal [facility] Comment on above: Result Comment: Elec [...] added (diluted fruit juice). ? Eat bland, ecdg-nq-pmzglg foods in small amounts as you are able. These foods include bananas, applesauce, rice, lean meats, toast, and crackers. ? Avoid fluids that contain a lot of sugar or caffeine, such as energy drinks, sports drinks, and soda. ? Avoid alcohol. ? Avoid spicy or fatty foods. General instructions ? Take qnec-gjk-fyietzp and prescription medicines only as told by your health care provider. ? Drink enough fluid to keep your urine pale yellow. ? Wash your hands often using soap and water. If soap and water are not available, use hand magazine grinder loader. ? Make sure that all people in [...] and drinking to prevent dehydration. ? Take htuy-vyj-zxytopw and prescription medicines only as told by [...] 11/08/2006 Document Revised: 03/01/2020 Document Reviewed: 04/18/2019 [employer] Patient Education ? 2019 [employer] Normal [facility] ED Patient Summaryon 022 ED Patient Summary [place] [id number] Patient Discharge Instructions Person Information Name: MEENA LUCERO Age: 26 Years Arrival Date: 09/03/2022 14:27:10 Discharge Diagnosis: Nausea & vomiting Primary Care Physician: Charli LOPEZ Provider Information Primary Provider: Evan Moyer DO Advanced Illuminating Engineer:Neil Meza PA-C The exam and treatment you received in the Emergency Department were for an urgent problem and are not intended as complete care. It is important that you follow up with a doctor, nurse practitioner, or physician?s plumber's assistant for ongoing care. If your symptoms become worse or you do not improve as expected and you are unable to reach your usual health care provider, you should return to the Emergency Department. We are available 24 hours a day. MEENA LUCERO has been given the following list of patient education materials, prescriptions and follow-up instructions: Follow-up Instructions: With: Address: When: Charlibillie CARLSON [address] [place] [id number] Business (1) In 3 days 09/06/2022 In the event that this physician does not participate in your insurance network, please consult with your insurance company to find a nearby participating provider. Patient Education Materials: Nausea and Vomiting, Adult A MESSAGE TO ALL PATIENTS REGARDING OPIOIDS PRESCRIPTION OPIOIDS: WHAT YOU NEED TO KNOW Prescription opioids can be used to help relieve matsqexa-eq-oiaaic pain and are often prescribed following a [...] struggling with addiction, tell your health career development specialist and ask for guidance or call SAMHSA?S National Helpline at 7-993-449-HELP. v Source: US Dep (more content not included)... Normal [facility] U BetaHcg Qualon 09-03-2022 HCG.beta subunit (U) [Moles/Vol] Negative Normal [facility] Comment on above: Performed By: #### 2 [id number], [id number], [id number] ####[facility] [address] [place] [address] UA With Cult Reflexon 2021 Bacteria LM Ql (Urine sed) 2+ /HPF Abnormal Trace [facility] Comment on above: Performed By: #### 2 [id number], [id number], [id number] ####[facility] [address] [place] [address] Bilirubin Ql (U) Negative Normal Negative [facility] Comment on above: Performed By: #### 2 [id number], [id number], [id number] ####[address] [address] Clarity (U) CLEAR Normal Clear [facility] Comment on above: Performed By: #### 2 [id number], [id number], [id number] ####[place] [id number] Color (U) YELLOW Normal Yellow [facility] Comment on above: Performed By: #### 2 [id number], [id number], [id number] ####[place] 2337357 Epithelial cells.squamous LM.HPF (Urine sed) [#/Area] 5-8 Normal 0-2 [facility] Comment on above: Performed By: #### 2 [id number], [id number], [id number] ####[facility] [address] [place], [place] [id number] Glucose Test strip (U) [Mass/Vol] Negative Normal Negative [facility] Comment on above: Performed By: #### 2 [id number], [id number], [id number] ####[facility] [address] [place] [address] Hemoglobin Ql (U) Negative Normal Negative [facility] Comment on above: Performed By: #### 2 [id number], [id number], [id number] ####[address] [address] Ketones (U) [Mass/Vol] Negative Normal Negative [facility] Comment on above: Performed By: #### 2 [id number], [id number], [id number] ####[place] 2337357 [place].plasma/Lith ium.RBC (Bld) [Mass ratio] 0-3 Normal 0-3 [facility] Comment on above: Performed By: #### 2 [id number], [id number], [id number] ####[facility] [address] [place] [address] Mucus Ql (Urine sed) 1+ Normal [facility] Comment on above: Performed By: #### 2 [id number], [id number], 3720266 ####[address] [address] Nitrite Ql (U) Negative Normal Negative [facility] Comment on above: Performed By: #### 2 [id number], [id number], [id number] ####[address] [address] pH (U) 5.5 [pH] Invalid Interpretation Code 5.0-9.0 [facility] Comment on above: Performed By: #### 2 4405734, [id number], 9096102 ####[address] [address] Protein (U) [Mass/Vol] Negative Normal Negative [facility] Comment on above: Performed By: #### 2 [id number], [id number], [id number] ####[address] [address] Specific gravity (U) [Rel density] >=1.030 Invalid Interpretation Code 1.005-1.030 [facility] Comment on above: Performed By: #### 2 [id number], [id number], [id number] ####[address] [address] Type of Urine collection method Clean Catch Normal [facility] Comment on above: Performed By: #### 2 [id number], [id number], [id number] ####[facility] [address] [place] [address] Urobilinogen Qn (U) 0.2 {Elver'U}/dL Normal 0.0-1.0 [facility] Comment on above: Performed By: #### 2 [id number], [id number], [id number] ####[facility] [address] [place] [address] WBC Auto Ql (U) Negative Normal Negative [facility] Comment on above: Performed By: #### 2 [id number], [id number], [id number] ####[facility] [address] [place] [address] WBC LM.HPF (Urine sed) [#/Area] 0-5 Normal 0-5 [facility] Comment on above: Performed By: #### 2 [id number], [id number], [id number] ####[facility] [address] [place] [address] XR WRIST LEFT (MIN 3 VIEWS)o n 06-19-2022 Normal left wrist. [facility] EXAM: XR WRIST LEFT (MIN 3 VIEWS) HISTORY: M25.532. 26-year-old female, left wrist pain. COMPARISON: None. TECHNIQUE: Three views left wrist. FINDINGS: The radiocarpal joint and wrist are normal. Normal scapholunate distance. No erosion or chondrocalcinosis. [facility] Mauro Anton Jr., MD - 06/19/2022 EXAM: XR WRIST LEFT (MIN 3 VIEWS) HISTORY: M25.532. 26-year-old female, left wrist pain. COMPARISON: None. TECHNIQUE: Three views left wrist. FINDINGS: The radiocarpal joint and wrist are normal. Normal scapholunate distance. No erosion or chondrocalcinosis. IMPRESSION: Normal left wrist. 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 pain has been constant for about 1 week now. History of Present Illness Pt presents today to [facility] care. Previous pt of [facility] in [place]. Concerned today about left wrist pain which started about 1 yr ago; pain has worsened over the last week. 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 Carries everything in her left hand. Right handed. Pain location: medial martinez hand, radiating to wrist Pain description: shooting Pain rated: 2/10, 7/10 with certain movements. 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 Negative Tinels and DeQuervians. + Phalens. Ingredient Handler strength equal. Neurologic: Cranial nerves II-XII grossly intact. Skin: Aldora, warm and dry. No rashes, ulcerations, or suspicious lesions noted on visible/exposed skin. Mental status: alert and oriented x 3. Normal mood and affect, normal behavior for age. Assessment/Plan 1. Carpal tunnel syndrome on left (G56.02: Carpal tunnel syndrome, left upper limb) Discussed options. Will treat with Ibuprofen, dosing and s/e. reviewed. Declines PT. Will refer to specialist near [place], advised she will be called to set up appt. Continue to wear wrist brace. Avoid heavy lifting or exacerbating activities. Ordered: ibuprofen, 800 mg = 1 tab(s), Oral, TID, Take with food. Not to exceed 3200 mg/day, X 10 day(s), # 30 tab(s), Refills(s) 1, Pharmacy: [facility], 170, cm, 06/01/22 12:55:00 EDT, Height/Length Dosing, 91.3, kg, 06/01/22 12:55:00 EDT, Weight Dosing [facility] [place] External Ambulatory Referral 2. [...] medical support in addressing this problem. Visit [employer] for useful information to help make better [...] unspecified fo (more content not included)... Normal [facility] Comment on above: Result Comment: Elec [...] height. This can be done either in Fijian (U.S[place] or metric measurements. Note that charts are available to help you find your BMI quickly and easily without having to do these calculations yourself. To calculate your BMI in Fijian (U.S[place] measurements, your health care provider will: [...] problems. ? BMI can be measured using Fijian measurements or metric measurements. ? To interpret [...] Document Reviewed: 09/21/2018 Else[employer] Patient Education ? 2020 [employer] Orth[employer]ics Carpal Tunnel Syndrome Carpal tunnel syndrome [...] Having a job, such as being a health specialist or a art history instructor, that requires you to repeatedly move your [...] and midd (more content not included)... Normal [facility] Physician Referralon 022 Physician Referral [id number] #[id number] Normal [facility] Vital Signs Date Time Vital Sign Value Performing Clinician Ayad lozoya 01-16-2025 08:41-0500 Body mass index (BMI) [Ratio] 38.07 kg/m2 [employer] DO Work Phone: [facility] 01-16-2025 08:41-0500 Body weight 103.78 kg [employer] DO Work Phone: [facility] 01-16-2025 08:41-0500 Diastolic blood pressure 70 mm[Hg] Gary Enriqueta DO Work Phone: [facility] 01-16-2025 08:41-0500 Systolic blood pressure 110 mm[Hg] Gary Enriqueta DO Work Phone: [facility] 12-19-2024 10:19-0500 Body mass index (BMI) [Ratio] 37.44 kg/m2 Gary Enriqueta DO Work Phone: [facility] 12-19-2024 10:19-0500 Body weight 102.06 kg Gary Enriqueta DO Work Phone: [facility] 12-19-2024 10:19-0500 Diastolic blood pressure 76 mm[Hg] Gary Enriqueta DO Work Phone: [facility] 12-19-2024 10:19-0500 Systolic blood pressure 122 mm[Hg] Gary Enriqueta DO Work Phone: [facility] 11-20-2024 09:42-0500 Body mass index (BMI) [Ratio] 36.61 kg/m2 Genevieve MARIA Work Phone: [facility] 11-20-2024 09:42-0500 Body weight 99.79 kg Genevieve MARIA Work Phone: [facility] 11-20-2024 09:42-0500 Diastolic blood pressure 74 mm[Hg] Genevieve MARIA Work Phone: [facility] 11-20-2024 09:42-0500 Systolic blood pressure 120 mm[Hg] Genevieve Calderon PA Work Phone: [facility] 10-17-2024 13:10-0500 Body mass index (BMI) [Ratio] 35.35 kg/m2 Gary Enriqueta DO Work Phone: [facility] 10-17-2024 13:10-0500 Body weight 96.34 kg Gary Enriqueta DO Work Phone: [facility] 10-17-2024 13:10-0500 Diastolic blood pressure 70 mm[Hg] Gary Enriqueta DO Work Phone: [facility] 10-17-2024 13:10-0500 Systolic blood pressure 120 mm[Hg] Gary Enriqueta DO Work Phone: [facility] 09-18-2024 11:15-0400 Body mass index (BMI) [Ratio] 35.2 kg/m2 Gary Enriqueta DO Work Phone: [facility] 09-18-2024 11:15-0400 Body weight 95.94 kg Gary Enriqueta DO Work Phone: [facility] 09-18-2024 11:15-0400 Diastolic blood pressure 74 mm[Hg] Gary Enriqueta DO Work Phone: [facility] 09-18-2024 11:15-0400 Systolic blood pressure 122 mm[Hg] Gary Enriqueta DO Work Phone: [facility] 08-18-2024 10:28-0400 Body mass index (BMI) [Ratio] 34.95 kg/m2 [facility] Nurse [facility] 08-18-2024 10:28-0400 Body weight 95.25 kg [facility] Nurse [facility] 01-10-2023 14:29-0500 Body height 165.1 cm Fei Canales MD Work Phone: [employer] 01-10-2023 14:29-0500 Body mass index (BMI) [Ratio] 34.35 kg/m2 Fei Canales MD Work Phone: [employer] 01-10-2023 14:29-0500 Body temperature 98.49 [degF] Fei Canales MD Work Phone: [employer] 01-10-2023 14:29-0500 Body weight 93.62 kg Fei Canales MD Work Phone: [employer] 01-10-2023 14:29-0500 Diastolic blood pressure 79 mm[Hg] Fei Canales MD Work Phone: [employer] 01-10-2023 14:29-0500 Heart rate 75 /min Fei Canales MD Work Phone: [employer] 01-10-2023 14:29-0500 Respiratory rate 16 /min Fei Canales MD Work Phone: [employer] [facility] 01-10-2023 14:29-0500 SaO2% (BldA) [Mass fraction] 99 % Fei Canales MD Work Phone: [employer] [facility] 01-10-2023 14:29-0500 Systolic blood pressure 140 mm[Hg] Fei Canales MD Work Phone: [employer] 12-08-2022 11:51-0500 Blood Pressure Location Keyon DAVIS [facility] 12-08-2022 11:51-0500 Body temperature 98.24 [degF] Cordellorin DAVIS [facility] 12-08-2022 11:51-0500 Diastolic blood pressure 78 mm[Hg] Cordellorin DAVIS [facility] 12-08-2022 11:51-0500 Heart rate 84 /min Keyon SUSAN [facility] 12-08-2022 11:51-0500 Respiratory rate 16 /min Keyon DAVIS [facility] 12-08-2022 11:51-0500 SaO2% (BldA) [Mass fraction] 100 % Keyon SUSAN [facility] 12-08-2022 11:51-0500 Systolic blood pressure 114 mm[Hg] Keyon SUSAN [facility] 12-04-2022 16:32-0500 Body mass index (BMI) [Ratio] 33.66 kg/m2 Jason Tracy MD Work Phone: [facility] 12-04-2022 16:32-0500 Body temperature 98.49 [degF] Jason Tracy MD Work Phone: [facility] 12-04-2022 16:32-0500 Body weight 91.76 kg Jason Tracy MD Work Phone: [facility] 12-04-2022 16:32-0500 Diastolic blood pressure 75 mm[Hg] Jason Tracy MD Work Phone: [facility] 12-04-2022 16:32-0500 Heart rate 91 /min Jason Tracy MD Work Phone: [facility] 12-04-2022 16:32-0500 Respiratory rate 16 /min Jason Tracy MD Work Phone: [facility] [employer] 12-04-2022 16:32-0500 SaO2% (BldA) [Mass fraction] 99 % Jason Tracy MD Work Phone: [facility] [employer] 12-04-2022 16:32-0500 Systolic blood pressure 123 mm[Hg] Jason Tracy MD Work Phone: [facility] [employer] 06-01-2022 12:50-0400 Blood Pressure Location Meena Siddhartha [facility] 06-01-2022 12:50-0400 Body temperature 96.98 [degF] Meena Siddhartha [facility] 06-01-2022 12:50-0400 Diastolic blood pressure 60 mm[Hg] Meena Siddhartha [facility] 06-01-2022 12:50-0400 Heart rate 88 /min Meena Carl [facility] 06-01-2022 12:50-0400 SaO2% (BldA) [Mass fraction] 97 % Meena Carl [facility] 06-01-2022 12:50-0400 Systolic blood pressure 122 mm[Hg] Meena Carl [facility] 09-14-2021 10:15-0400 Body mass index (BMI) [Ratio] 31.62 kg/m2 Keyon Wilkinson MD Work Phone: [employer] Work Phone: 09-14-2021 10:15-0400 Body weight 86.18 kg Keyon Wilkinson MD Work Phone: [employer] Work Phone: 09-14-2021 10:14-0400 Body height 165.1 cm Keyon Wilkinson MD Work Phone: [employer] Work Phone: 09-14-2021 10:14-0400 Body temperature 98.2 [degF] Keyon Wilkinson MD Work Phone: [employer] Work Phone: 09-14-2021 10:14-0400 Diastolic blood pressure 93 mm[Hg] Keyon Wilkinson MD Work Phone: [employer] Work Phone: 09-14-2021 10:14-0400 Heart rate 91 /min Keyon Wilkinson MD Work Phone: [employer] Work Phone: 09-14-2021 10:14-0400 Respiratory rate 20 /min Keyon Wilkinson MD Work Phone: [employer] Work Phone: 09-14-2021 10:14-0400 SaO2% (BldA) [Mass fraction] 96 % Keyon Wilkinson MD Work Phone: [employer] Phone: 09-14-2021 10:14-0400 Systolic blood pressure 131 mm[Hg] Keyon Wilkinson MD Work Phone: [employer] Phone: Encounters Encounter Date Encounter Type Care Provider Facility Start: 01-29-2025 ambulatory [facility] Start: 01-16-2025 End: 01-16-2025 Bamboo flowsheet Gary Enriqueta DO Work Phone: [facility] Start: 01-16-2025 End: 01-17-2025 Bamboo flowsheet Gary Enriqueta DO Work Phone: [facility] Start: 01-16-2025 End: 01-17-2025 Clinisync Result Encounter Gary Enriqueta DO Work Phone: [facility] Unsolicited Start: 01-16-2025 End: 01-16-2025 Office outpatient visit 15 minutes Gary Enriqueta DO Work Phone: [facility] Comment on above: 28 weeks gestation o f ; Third trimester ; Heartburn during in third trimester Start: 01-16-2025 End: 01-16-2025 ambulatory GARY ENRIQUETA Not Available Start: 01-15-2025 End: 01-15-2025 ambulatory [facility] Start: 01-15-2025 End: 01-15-2025 Subsequent hospital visit by physician John Partida DO Work Phone: [facility] Comment on above: Arrived Start: 01-12-2025 End: 01-12-2025 ambulatory [facility] Start: 01-12-2025 End: 01-12-2025 Subsequent hospital visit by physician John Partida DO Work Phone: [facility] Comment on above: Arrived Start: 01-10-2025 End: 01-10-2025 [facility] Start: 01-10-2025 End: 01-10-2025 Subsequent hospital visit by physician John Partida DO Work Phone: [facility] Comment on above: Arrived Start: 01-05-2025 End: 01-05-2025 [facility] Start: 01-05-2025 End: 01-05-2025 Subsequent hospital visit by physician John Partida DO Work Phone: [facility] Comment on above: Arrived Start: 01-02-2025 End: 01-02-2025 [facility] Start: 01-02-2025 End: 01-02-2025 Subsequent hospital visit by physician John Partida DO Work Phone: [facility] Comment on above: Arrived Start: 12-29-2024 End: 12-29-2024 [facility] Start: 12-29-2024 End: 12-29-2024 Subsequent hospital visit by physician John Partida DO Work Phone: [facility] Comment on above: Arrived Start: 12-27-2024 End: 12-27-2024 [facility] Start: 12-27-2024 End: 12-27-2024 Subsequent hospital visit by physician John Partida DO Work Phone: [facility] Comment on above: Arrived Start: 12-25-2024 End: 12-25-2024 Clinisync Result Encounter Gary Enriqueta DO Work Phone: [facility] Unsolicited Start: 12-25-2024 End: 12-25-2024 Clinisync Result Encounter Gary Enriqueta DO Work Phone: [facility] Unsolicited Start: 12-22-2024 End: 12-22-2024 [facility] Start: 12-22-2024 End: 12-22-2024 Subsequent hospital visit by physician John Partida DO Work Phone: [facility] Comment on above: Arrived Start: 12-20-2024 End: 12-20-2024 [facility] Start: 12-20-2024 End: 12-20-2024 Subsequent hospital visit by physician John Partida DO Work Phone: [facility] Comment on above: Arrived Start: 12-19-2024 End: 12-19-2024 Clinisync Result Encounter Genevieve MARIA Work Phone: [facility] Unsolicited Start: 12-19-2024 End: 12-19-2024 Clinisync Result Encounter Genevieve MARIA Work Phone: [facility] Unsolicited Start: 12-19-2024 End: 12-19-2024 Office outpatient visit 15 minutes Gary Barcenaso DO Work Phone: [facility] Comment on above: Second trimester pre gnancy; 24 weeks gestation of ; Diabetes mellitus screening; Low platelet count (CMS/HCC); Thrombocytopenia affecting , antepartum (CMS/HCC); 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, antepartum Start: 12-19-2024 End: 12-19-2024 ambulatory GARY ENRIQUETA Not Available Start: 12-15-2024 End: 12-15-2024 [facility] Start: 12-13-2024 End: 12-13-2024 [facility] Start: 12-13-2024 End: 12-13-2024 Subsequent hospital visit by physician John Partida DO Work Phone: [facility] Comment on above: Arrived Start: 12-06-2024 End: 01-15-2025 [facility] Start: 12-06-2024 End: 12-06-2024 Subsequent hospital visit by physician John Partida DO Work Phone: [facility] Comment on above: Arrived Start: 11-20-2024 End: 11-20-2024 Bamboo flowsheet Genevieve MARIA Work Phone: [facility] Start: 11-20-2024 End: 11-20-2024 Bamboo flowsheet Genevieve Calderon PA Work Phone: [facility] Start: 11-20-2024 End: 11-20-2024 ambulatory GENEVIEVE CALDERON Not Available Start: 11-20-2024 End: 11-20-2024 Office outpatient visit 15 minutes Genevieve Calderon PA Work Phone: [facility] Comment on above: Second trimester pre gnancy; 20 weeks gestation of ; Diabetes mellitus screening Start: 10-17-2024 End: 10-17-2024 Subsequent hospital visit by physician John Partida DO Work Phone: [facility] Start: 10-17-2024 End: 10-29-2024 Clinisync [...] Phone: [facility] Start: 10-12-2024 End: 10-12-2024 [facility] Start: 10-12-2024 End: 10-12-2024 Subsequent hospital visit by physician John Partida DO Work Phone: [facility] Comment on above: Arrived Start: 10-10-2024 End: 10-10-2024 ambulatory [facility] Start: 10-10-2024 End: 10-10-2024 Subsequent hospital visit by physician John Partida DO Work Phone: [facility] Comment on above: Arrived Start: 10-04-2024 End: 10-04-2024 Subsequent hospital visit by physician John Partida DO Work Phone: [facility] Start: 10-04-2024 [facility] Start: 09-18-2024 End: 09-18-2024 Office [...] External Department Unsolicited Start: 08-07-2024 End: 08-07-2024 [facility] Start: 08-07-2024 End: 08-07-2024 Subsequent hospital visit by physician Óscar Nassar DNP Work Phone: [facility] Start: 08-02-2024 End: 08-02-2024 Clinisync Result Encounter Gary Enriqueta DO Work Phone: [facility] External Department Unsolicited Start: 08-02-2024 End: 08-02-2024 Clinisync Result Encounter Gary Enriqueta DO Work Phone: [facility] External Department Unsolicited Start: 08-02-2024 End: 08-02-2024 [facility] GARY AGUILAR [facility] Start: 07-31-2024 End: 07-31-2024 Clinisync Result Encounter Gary Enriqueta DO Work Phone: [facility] External Department Unsolicited Start: 07-31-2024 End: 07-31-2024 Clinisync Result Encounter Gary Enriqueta DO Work Phone: [facility] External Department Unsolicited Start: 07-31-2024 End: 07-31-2024 ambulatory ÓSCAR Josh NASSAR [facility] Start: 07-31-2024 End: 07-31-2024 Subsequent hospital visit by physician Óscar Nassar DNP Work Phone: [facility] Start: 07-29-2024 End: 07-29-2024 Clinisync Result Encounter Gary Enriqueta DO Work Phone: [facility] External Department Unsolicited Start: 07-29-2024 End: 07-29-2024 Clinisync Result Encounter Gary Enriqueta DO Work Phone: [facility] External Department Unsolicited Start: 07-29-2024 End: 07-29-2024 [facility] Start: 07-27-2024 End: 07-27-2024 Clinisync Result Encounter Gary Barcenaso DO Work Phone: [facility] External Department Unsolicited Start: 07-27-2024 End: 07-27-2024 Clinisync Result Encounter Gary Barcenaso DO Work Phone: [facility] External Department Unsolicited Start: 07-27-2024 End: 07-27-2024 [facility] Start: 07-27-2024 End: 07-27-2024 Subsequent hospital visit by physician John Partida DO Work Phone: [facility] Comment on above: Arrived Start: 07-25-2024 End: 07-25-2024 [facility] Start: 07-21-2024 End: 07-21-2024 [facility] Start: 07-19-2024 End: 07-19-2024 [facility] Start: 07-13-2024 End: 07-13-2024 Subsequent hospital visit by physician John Partida DO Work Phone: [facility] Comment on above: Arrived Start: 07-13-2024 End: 07-13-2024 [facility] Start: 07-06-2024 End: 07-06-2024 Subsequent hospital visit by physician John Partida DO Work Phone: [facility] Start: 06-29-2024 End: 06-29-2024 [facility] Start: 06-29-2024 End: 06-29-2024 Subsequent hospital visit by physician John Partida DO Work Phone: [facility] Comment on above: Arrived Start: 06-26-2024 End: 06-26-2024 [facility] Start: 06-22-2024 End: 06-22-2024 ambulatory [facility] Start: 06-20-2024 End: 06-20-2024 ambulatory [facility] Start: 06-16-2024 End: 06-16-2024 ambulatory [facility] Start: 06-14-2024 End: 06-14-2024 ambulatory [facility] Start: 06-08-2024 End: 06-08-2024 [facility] Start: 06-08-2024 End: 06-08-2024 ambulatory [facility] Start: 05-22-2024 End: 05-24-2024 ambulatory [facility] Start: 05-22-2024 End: 05-24-2024 Subsequent hospital visit by physician Óscar Nassar DNP Work Phone: [facility] Start: 03-06-2024 End: 03-06-2024 ambulatory GARY ENRIQUETA Not Available Start: 03-04-2024 End: 03-04-2024 ambulatory [facility] Start: 03-04-2024 Emergency department patient visit [facility] Start: 04-09-[address] NONE LISTED REQUEST Facility: Start: 01-29-2023 End: 01-31-2023 Subsequent hospital visit by physician [facility] Additional [facility] Comment on above: Other closed fractur e of proximal end of right fibula with routine healing, subsequent encounter Start: 01-29-2023 End: 01-31-2023 Subsequent hospital visit by physician Keyon Davis MD Work Phone: [facility] Start: 01-10-2023 End: 01-10-2023 Emergency department patient visit Fei Canales MD Work Phone: [facility] ED Comment on above: Injury of right ankl e, initial encounter (Primary Dx) Start: 12-08-2022 End: 12-09-2022 ambulatory Keyon DAVIS Facility: [facility] Start: 12-08-2022 End: 12-08-2022 Patient encounter procedure Cordellorin SUSAN [facility] Start: 12-04-2022 End: 12-04-2022 Emergency department patient visit Jason Tracy MD Work Phone: 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 Start: 05-28-2022 ambulatory VOTATOR MACHINE OPERATOR Meena Carl Faci lity:[facility] Start: 09-14-2021 End: 09-14-2021 Emergency department patient visit Keyon Wilkinson MD Work Phone: [facility] ED Comment on above: Subacute bronchitis (Primary Dx) Procedures Date Procedure Procedure Detail Performing Clinician Start: 01-16-2025 US OB GROWTH Gary Fazi o DO Work Phone: Start: 01-16-2025 US OB PLACENTA Gary Fa zio DO Work Phone: Start: 01-16-2025 Urnls dip stick/tabl et rgnt non-auto w/o micrscp Gary Enriqueta DO Work Phone: Start: 12-25-2024 ALL PLATELET COUNT Core y [...] 60 yrs+ (1 - 1-dose 75+ series) [facility] Start: 2054 Respiratory Syncytia l Virus (RSV) or age 60 yrs+ (1 - 1-dose 60+ series) Respiratory Syncytial Virus (RSV) or age 60 yrs+ (1 - 1-dose 60+ series) [facility] Start: 05-26-2028 Screening for malign ant neoplasm of cervix HPV/Cotest [facility] Start: 10-17-2027 Screening for malign ant neoplasm of cervix [facility] Start: 03-14-2025 Depression Screen Depression Screen [facility] Start: 01-30-2025 End: 01-30-2025 Patient encounter procedure 01/30/2025 8:50 AM EDT Routine [facility] [address] [facility] [place] [address] Genevieve Calderon PA [address] [place] [address] [facility] Start: 01-29-2025 End: 01-29-2025 Patient encounter procedure 01/29/2025 9:00 AM EDT Appointment [facility] [address] [place] [address] John Partida, DO [address] [place] [address] Clara Castrejon, PT *[employer] 15 of 30 Sacral Pain, [facility] Comment on above: *[employer] 15 of 30 Sacral Pain, Start: 01-18-2025 End: 01-18-2025 Patient encounter procedure 01/18/2025 8:00 AM EST Appointment [facility] [address] [place] [address] John Partida, DO [address] [place] [address] Clara Castrejon, PT *[employer] 14 of 30 Sacral Pain, [facility] Comment on above: *[employer] 14 of 30 Sacral Pain, Start: 01-16-2025 End: 01-16-2025 Patient encounter procedure [facility] Comment on above: Arrived Start: 01-16-2025 End: 01-16-2025 Professional / ancillary services management 01/16/2025 8:00 AM EST Ancillary Procedure [facility] [address] [facility] [place] [place] [address] [facility] Start: 01-15-2025 End: 01-15-2025 Patient encounter procedure 01/15/2025 9:00 AM EST Appointment [facility] [address] [place] [address] John Partida, DO [address] [place] [address] Clara Castrejon, PT *[employer] 13 of 30 Sacral [...] EST Hospital Encounter [facility] [address] [place] [address] John Partida, DO [address] [place] [address] Lauryn Edwards [facility] Start: 01-02-2025 End: 01-02-2025 Patient encounter procedure 01/02/2025 8:00 AM EST Appointment [facility] [address] [place] [address] John Partida, DO [address] [place] [address] Clara Castrejon, PT *[employer] 8 of 30 Sacral Pain, [facility] Comment on above: *[employer] 8 of 30 Sacral Pain, Start: 12-29-2024 End: 12-29-2024 Patient encounter procedure 12/29/2024 11:15 AM EST Appointment [facility] [address] [place] [address] John Partida, DO [address] [place] [address] Clara Castrejon, PT *[employer] 7 of 30 Sacral Pain, [facility] Comment on above: *[employer] 7 of 30 Sacral Pain, Start: 12-27-2024 End: 12-27-2024 Patient encounter procedure 12/27/2024 9:00 AM EST Appointment [facility] [address] [place] [address] John Partida, DO [address] [facility] [place] [address] Austen Puga, VITA *[employer]aresource 6 of 30 Sacral Pain, [facility] Comment on above: *[employer]aresource 6 of 30 Sacral Pain, Start: 12-22-2024 End: 12-22-2024 Patient encounter procedure 12/22/2024 8:00 AM EST Appointment [facility] [address] [place] [address] John Partida, DO [address] [facility] [place] [address] Austen Puga, UNIX ANALYST *[employer] 5 of 30 Sacral Pain, [facility] Comment on above: *[employer]ource 5 of 30 Sacral Pain, Start: 12-20-2024 End: 12-20-2024 Patient encounter procedure 12/20/2024 9:00 AM EST Appointment [facility] [address] [place] [address] John Partida, DO [address] [facility] [place] [address] Clara Castrejon, PT *[employer] 4 of 30 Sacral Pain, [facility] Comment on above: *[employer] 4 of 30 Sacral Pain, Start: 12-19-2024 End: 12-19-2024 Patient encounter procedure 12/19/2024 9:50 AM EST Routine [facility] [address] [facility] [address] [place] [address] Gary Robison DO [address] [place] [address] [facility] Start: 12-15-2024 End: 12-15-2024 Patient encounter procedure 12/15/2024 8:15 AM EST Appointment [facility] [address] [place] [address] John Partida, DO [address] [facility] [place] [address] Clara Castrejon, PT *[employer] 3 of 30 Sacral Pain, [facility] Comment on above: *C[employer]ource 3 of 30 Sacral Pain, Start: 12-13-2024 End: 12-13-2024 Patient encounter procedure 12/13/2024 9:45 AM EST Appointment [facility] [address] [place] [address] John Partida, DO [address] [facility] [place] [address] Trinity Browning *[employer]ource 2 of 30 Sacral Pain, [facility] Comment on above: *[employer]aresource 2 of 30 Sacral Pain, Start: 2024 Screening for malign ant neoplasm of cervix [facility] Start: 11-20-2024 End: 11-20-2025 CBC panel - [...] mellitus screening Expected: 11/20/2024 (Approximate), Expires: 11/20/2025 [facility] Comment on above: Expected: 11/20/2024 (Approximate), Expires: 11/20/2025 Start: 11-20-2024 End: 11-20-2024 Patient encounter procedure 11/20/2024 9:20 AM EST Routine [facility] [address] [facility] [place] [address] Genevieve Calderon PA [address] [place], [place] [id number] [facility] Start: 11-20-2024 End: 11-20-2024 Professional / ancillary services management 11/20/2024 8:00 AM EST Ancillary Procedure [facility] [address] [facility] [place] [address] [facility] OB Start: 10-17-2024 End: 01-17-2025 Alpha fetoprotein, maternal Alpha fetoprotein, maternal Lab Routine 15 weeks gestation of Expected: 10/17/2024 (Approximate), Expires: 01/17/2025 [facility] Work Phone: Comment on above: Expected: 10/17/2024 (Approximate), Expires: 01/17/2025 Start: 10-17-2024 End: 10-17-2025 US for US OB ANATOMY SINGLE W US OB CERVICAL LENGTH Imaging Routine Screening, , for anatomic survey 15 weeks gestation of Expected: 10/17/2024 (Approximate), Expires: 10/17/2025 [facility] Comment on above: Expected: 10/17/2024 (Approximate), Expires: 10/17/2025 Start: 10-17-2024 End: 10-17-2024 Patient encounter procedure 10/17/2024 10:50 AM EST Routine [facility] [address] [facility] [address] [place] [address] Gary Robison, DO [address] [place] [address] [facility] Start: 10-17-2024 End: 10-17-2024 Patient encounter procedure 10/17/2024 8:15 AM EST Appointment [facility] [address] [place] [id number] John Partida, DO [address] [place] [address] Trinity Browning 16 of 30 Sacral Pain, [facility] Comment on above: 16 of 30 Sacral Pain , Start: 10-12-2024 End: 10-12-2024 Patient encounter procedure 10/12/2024 8:00 AM EST Appointment [facility] [address] [place] [address] John Partida, DO [address] [place] [address] Clara Castrejon, PT 15 of 30 Sacral Pain, [facility] Comment on above: 15 of 30 Sacral Pain , Start: 10-10-2024 End: 10-10-2024 Patient encounter procedure 10/10/2024 9:30 AM EST Appointment [facility] [address] [place] [address] John Partida, DO [address] [place] [address] Clara Castrejon, PT 14 of 30 Sacral Pain, [facility] Comment on above: 14 of 30 Sacral Pain , Start: 09-18-2024 End: 09-18-2024 Patient encounter procedure 09/18/2024 10:40 AM EDT Routine [facility] [address] [place] [address] [place] [address] Gary Robison, DO [address] [place] [address] [facility] Start: 08-18-2024 End: 08-18-2025 ABO/Rh ABO/Rh Lab Routine Missed menses , unspecified gestational age Expected: 08/18/2024 (Approximate), Expires: 08/18/2025 [facility] Comment on above: Expected: 08/18/2024 [...] first trimester Expected: 08/18/2024 (Approximate), Expires: 08/18/2025 [facility] Comment on above: Expected: 08/18/2024 (Approximate), Expires: 08/18/2025 Start: 08-18-2024 End: 08-18-2025 US Pelvis transvaginal US OB transvaginal Imaging Routine Missed menses Expected: 08/18/2024 (Approximate), Expires: 08/18/2025 [facility] Comment on above: Expected: 08/18/2024 (Approximate), Expires: 08/18/2025 Start: 08-18-2024 End: 08-18-2024 ambulatory 08/18/2024 9:30 AM EDT Initial [facility] [address] [facility] [place] [address] [facility] Start: 08-18-2024 End: 08-18-2024 Professional / ancillary services management 08/18/2024 9:00 AM EDT Ancillary Procedure [facility] OB [address] [facility] [address] [place] [address] [facility] Start: 07-23-2024 COVID-19 Vaccine ( season) COVID-19 Vaccine ( season) [facility] Start: 07-23-2024 COVID-19 Vaccine ( season) COVID-19 Vaccine ( season) [facility] Start: 07-23-2024 Influenza vaccination Influenza Vacc ine (#1) [facility] Start: 07-19-2024 End: 07-19-2024 Patient encounter procedure 07/19/2024 8:00 AM EDT Appointment [facility] [address] [place] [address] John Partida, DO [address] [place] [address] Asia Mix, PT [address] [place] [address] [facility] Start: 07-13-2024 End: 07-13-2024 Patient encounter procedure [facility] Start: 07-06-2024 End: 07-06-2024 Patient encounter procedure 07/06/2024 9:00 AM EDT Appointment [facility] [address] [place] [address] John Partida, DO [address] [place] [address] Asia Mix, PT [address] [place] [address] [facility] Start: 06-22-2024 Influenza vaccination Flu vaccine (# 1) [facility] Start: 07-23-2023 COVID-19 Vaccine ( season) COVID-19 Vaccine ( season) [facility] Start: 07-23-2022 Influenza vaccination Flu vaccine (# 1) [facility] Start: 06-22-2022 Influenza vaccination Flu vaccine (# 1) [facility] Start: 07-23-2021 Influenza vaccination [facility] (# [facility] Start: 08-02-2017 DTaP/Tdap/Td vaccine (2 - Td or Tdap) DTaP/Tdap/Td vaccine (2 - Td or Tdap) [facility] Start: 2015 Screening for malign ant neoplasm of cervix Pap smear [facility] Start: 2013 DTaP/Tdap/Td vaccine (1 - Tdap) DTaP/Tdap/Td vaccine (1 - Tdap) [facility] [employer] Phone: Start: 2013 Hepatitis B vaccine (1 of 3 - 19+ 3-dose series) Hepatitis B vaccine (1 of 3 - 19+ 3-dose series) [facility] Start: 2012 Hepatitis C screening Hepatitis C sc reen [facility] Start: 2009 HIV screening HIV screen [facility] Start: 2006 COVID-19 Vaccine (1) COVID-19 Vaccin e (1) [facility] Phone: Start: 2006 Depression Screen Depression Screen [facility] Start: 2005 HPV vaccine (1 - 2-d ose series) HPV vaccine (1 - 2-dose series) [facility] [employer] Phone: Start: 1998 Varicella vaccine (2 of 2 - 2-dose childhood series) Varicella vaccine (2 of 2 - 2-dose childhood series) [facility] Start: 1995 Varicella vaccine (1 of 2 - 2-dose childhood series) Varicella vaccine (1 of 2 - 2-dose childhood series) [facility] Phone: Start: 05-30-1995 COVID-19 Vaccine (#1) COVID-19 Vacci ne (#1) [facility] Start: 1994 Hepatitis B vaccine (1 of 3 - 3-dose series) Hepatitis B vaccine (1 of 3 - 3-dose series) [facility] Start: 1994 Hepatitis C screening Hepatitis C mn mary [facility] [employer] Work Phone: Bacteria identified in Urine by Culture Urine culture Microbiology Routine Missed menses Ordered: 08/18/2024 [facility] Comment on above: Ordered: 08/18/2024 CBC W Auto Different ial panel - Blood CBC and differential Lab Routine Missed menses , unspecified gestational age Ordered: 08/18/2024 [facility] Comment on above: Ordered: 08/18/2024 CHLAMYDIA TRACHOMATI S (GENITO/STI) CHLAMYDIA TRACHOMATIS (GENITO/STI) Lab Routine Vaginal discharge STD exposure Ordered: 10/17/2024 [facility] Comment on above: Ordered: 10/17/2024 Cytology Cervical or vaginal smear or scraping study Pap Smear Pathology and Cytology Routine Encounter for gynecological examination without abnormal finding Ordered: 10/17/2024 [facility] Comment on above: Ordered: 10/17/2024 Hemoglobin A1c/Hemoglobin.total in Blood Hemoglobin A1c Lab Routine Missed menses , unspecified gestational age Ordered: 08/18/2024 [facility] Comment on above: Ordered: 08/18/2024 Hepatitis B virus surface Ag [Presence] in Serum or Plasma by Immunoassay Hepatitis B surface antigen Lab Routine Missed menses , unspecified gestational age Ordered: 08/18/2024 [facility] Comment on above: Ordered: 08/18/2024 Hepatitis C virus Ab [Presence] in Serum or Plasma by Immunoassay Hepatitis C antibody Lab Routine Missed menses , unspecified gestational age Ordered: 08/18/2024 [facility] Comment on above: Ordered: 08/18/2024 HIV-1/HIV-2 antigen/antibody combination immunoassay HIV-1 and HIV-2 antibodies Lab Routine Missed menses , unspecified gestational age Ordered: 08/18/2024 [facility] Comment on above: Ordered: 08/18/2024 Neisseria gonorrhoea e DNA [Presence] in Unspecified specimen by WADE with probe detection Neisseria gonorrhea DNA probe, direct Lab Routine Vaginal discharge STD exposure Ordered: 10/17/2024 [facility] Comment on above: Ordered: 10/17/2024 Platelets [#/volume] in Blood Platelet count Lab Routine Low platelet count (CMS/HCC) Ordered: 12/19/2024 [facility] Work Phone: Comment on above: Ordered: 12/19/2024 Reagin Ab [Presence] in Serum by RPR RPR Lab Routine Missed menses , unspecified gestational age Ordered: 08/18/2024 [facility] Comment on above: Ordered: 08/18/2024 Rubella antibody, IgG Rubella an tibody, IgG Lab Routine Missed menses , unspecified gestational age Ordered: 08/18/2024 [facility] Comment on above: Ordered: 08/18/2024 SURESWAB(R) ADVANCED VAGINITIS PLUS, TMA SURESWAB(R) ADVANCED VAGINITIS PLUS, TMA Pathology and Cytology Routine Vaginal discharge STD exposure Ordered: 10/17/2024 [facility] Comment on above: Ordered: 10/17/2024 Immunizations Immunization Date Immunization Notes Care Provider Jaci masterson 02-16-2008 Hep A, unspecified formulation Meena Carl [facility] 08-02-2007 Hep A, unspecified formulation Meena Carl [facility] 08-02-2007 meningococcal ACWY vaccine, unspecified formulation Meena Carl [facility] 08-02-2007 tetanus toxoid, reduced diphtheria toxoid, and acellular pertussis vaccine, adsorbed Meena Carl [facility] 08-19-2000 DTaP, unspecified formulation Meena Carl [facility] 08-19-2000 measles, mumps and rubella virus vaccine Meena Carl [facility] 10-10-1997 varicella virus vaccine Meena Carl [facility] 03-09-1996 DTaP, unspecified formulation Meena Carl [facility] 03-09-1996 Hib, unspecified formulation Meena Carl [facility] 03-09-1996 measles, mumps and rubella virus vaccine Meena Carl [facility] 06-11-1995 DTP-Hib Meena Carl [facility] 06-11-1995 hepatitis B vaccine, pediatric or pediatric/adolescent dosage Meena Carl [facility] 04-05-1995 DTP-Hib Meena Aguilarell [facility] 02-01-1995 DTP-Hib Meena Aguilarell [facility] 01-04-1995 hepatitis B vaccine, pediatric or pediatric/adolescent dosage Meena Aguilarell [facility] 1994 hepatitis B vaccine, pediatric or pediatric/adolescent dosage Meenazachariah Aguilarell [facility] NEGATED: Highlighted row has not occurred!12-08-2022 influenza virus vaccine, unspecified formulation Keyon DAVIS [facility] NEGATED: Highlighted row has not occurred!12-08-2022 SARS-CoV-2 mRNA (tozinameran 5y-11y) vaccine Keyon DAVIS [facility] Payers Date Payer Category Payer Medicaid [facility] [employer] [place] [id number] 2022-Present [address] [place] [address] [id number] 2022 Private Health Insurance [facility] MEDICAID [id number] 2014 Unknown [id number] 1994 Unknown [id number] 1994 Unknown [id number] 1994 Unknown [id number] 1994 Unknown [id number] 1994 Unknown [id number] 1994 Unknown [id number] 1995 Unknown [id number] 2.16.840.1.775874.3.579.2. 174 1995 Unknown [id number] 2.16.840.1.651072.3.579.2. 174 1995 Unknown [id number] 2.16.840.1.309557.3.579.2. 174 1994 Unknown [id number] 2.16.840.1.400847.3.579.2. 174 1994 Unknown [id number] 2.16.840.1.251654.3.579.2. 174 1994 Unknown [id number] 2.16.840.1.870393.3.579.2. 174 1994 Unknown [id number] 2.16.840.1.547286.3.579.2. 174 1994 Unknown [id number] 2.16.840.1.176581.3.579.2. 174 1994 Unknown [id number] 2.16.840.1.479161.3.579.2. 174 1994 Unknown [id number] 2.16.840.1.436663.3.579.2. 174 1994 Unknown [id number] 2.16.840.1.820575.3.579.2. 174 1994 Unknown [id number] 2.16.840.1.569536.3.579.2. 174 1994 Unknown [id number] 2.16.840.1.445647.3.579.2. 174 1994 Unknown [id number] 2.16.840.1.101923.3.579.2. 174 1994 Unknown [id number] 2.16.840.1.797592.3.579.2. 174 1994 Unknown [id number] 2.16.840.1.885301.3.579.2. 174 1994 Unknown [id number] 2.16.840.1.985880.3.579.2. 174 1994 Unknown [id number] 2.16.840.1.912045.3.579.2. 174 1994 Unknown [id number] 2.16.840.1.423374.3.579.2. 174 1994 Unknown [id number] 2.16.840.1.910579.3.579.2. 174 1994 Unknown [id number] 2.16.840.1.909147.3.579.2. 174 1994 Unknown [id number] 2.16.840.1.727858.3.579.2. 174 1994 Unknown [id number] 2.16.840.1.914467.3.579.2. 174 1994 Unknown [id number] 2.16.840.1.026814.3.579.2. 174 1994 Unknown [id number] 2.16.840.1.107813.3.579.2. 174 1994 Unknown [id number] 2.16.840.1.909428.3.579.2. 174 1994 Unknown [id number] 2.16.840.1.245775.3.579.2. 174 1994 Unknown [id number] 2.16.840.1.834540.3.579.2. 174 1994 Unknown [id number] 2.16.840.1.869259.3.579.2. 174 1994 Unknown [id number] 2.16.840.1.086825.3.579.2. 174 1994 Unknown [id number] 2.16.840.1.868593.3.579.2. 174 1994 Unknown [id number] 2.16.840.1.529418.3.579.2. 174 1994 Unknown [id number] 2.16.840.1.427640.3.579.2. 174 1994 Unknown [id number] 2.16.840.1.444636.3.579.2. 174 1994 Unknown [id number] 2.16.840.1.806684.3.579.2. 174 1994 Unknown [id number] 2.16.840.1.060254.3.579.2. 174 1994 Unknown [id number] 2.16.840.1.251804.3.579.2. 174 1994 Unknown [id number] 2.16.840.1.937404.3.579.2. 174 1994 Unknown [id number] 2.16.840.1.005833.3.579.2. 174 1994 Unknown [id number] 2.16.840.1.521681.3.579.2. 9 1994 Unknown [id number] 2.16.840.1.171756.3.579.2. 9 1994 Unknown [id number] 2.16.840.1.030063.3.579.2. 9 1994 Unknown [id number] 2.16.840.1.299502.3.579.2. 9 1994 Unknown [id number] 2.16.840.1.604009.3.579.2. 1259 1994 Unknown [id number] 2.16.840.1.362795.3.579.2. 1259 1959 Unknown [id number] 1.2.840.026300.1.13.239.2. 7.3.988259.315 Social History Date Type Detail Facility Start: 09-14-2021 End: 09-18-2024 Tobacco smoking status NHIS Never smoker [employer] Work Phone: Start: 09-14-2021 End: 09-18-2024 Tobacco use and exposure Never used [employer] Start: 09-14-2021 End: 08-21-2024 Alcohol intake Current non-drinker of alcohol (finding) [employer] Work Phone: Start: 1995 Sex Assigned At Not on file [employer] Work Phone: Start: 11-24-2022 End: 01-10-2023 Exposure to SARS-CoV-2 (event) Not sure [employer] Tobacco smoking status Never [facility] Start: 07-19-2023 End: 09-18-2024 Sex Assigned At Female [facility] Start: 12-04-2022 End: 01-10-2023 History SDOH Alcohol Frequency 1 [employer] Work Phone: Start: 07-19-2023 End: 09-18-2024 History of Social function [employer] How often to you hav e a drink containing alcohol? Never [employer] (I/We) worried wheth er (my/our) food would run out before (I/we) got money to buy more. Never true [employer] At any time in the p ast 12 months, were you homeless or living in long-term [including now]? No [employer] Start: 1995 Sex Assigned At Female [employer] Start: 07-19-2023 Gender identity Identifies as female gender (finding) [employer] Start: 07-19-2023 Sexual orientation Heterosexual (finding) [employer] Start: 07-16-2024 [facility] Start: 09-18-2024 End: 01-16-2025 Alcoholic beverage intake Lifetime non-drinker (finding) [facility] Functional Status Date Assessment Result Facility 12-08-2022 Functional Status N/A [facility] [place] 07-11-2022 Functional Status N/A [facility] Clinical Notes 06-01-2022 to 01-16-2025 Marlene RUTH Olea - 01/16/2025 8:40 AM Clara Wahl, PT - 01/15/2025 9:00 AM Clara Wahl, PT - 01/12/2025 8:15 AM Austen Jones, UNIX ANALYST - 01/10/2025 9:00 AM ESTDischarge Instructions Note Date & Type Note Facility 01-16-2025 History of Present illness Narrative Reason for Appointment: Patient ID: Meena Lucero is a 29 y.o. female who presents for Routine Visit Patient presents today for Return OB appointment. MEDICATIONS Current Outpatient Medications Medication Instructions omeprazole (PRILOSEC) 20 mg, Oral, Daily before breakfast, Do not crush or chew. 27-1 MG tablet Every 24 hours ALLERGIES Allergies Allergen Reactions Hydrocodone Codeine Rash and Unknown Chest and back [...] nursing note reviewed. Exam conducted with a deputy grand jury present. Vitals: Estimated body mass index is 38.07 kg/m as calculated from the following: Height as of 04/09/23: 5' 5 . Weight as of this encounter: 228 lb 12.8 oz. BP: 110/70 Patient's last menstrual period was 06/23/2024. ASSESSMENT & PLAN ICD-10-CM 1. 28 weeks gestation of Z3A.28 POCT urinalysis dipstick manually resulted 2. Third trimester Z34.93 POCT urinalysis dipstick manually resulted Return OB: Patient presents today for a routine obstetrics appointment. Patient is currently 28w2d . Patient states she is doing well but has complaints of being tired due to current . Patient has verbalizes frequent movement. labor precautions was discussed/given and patient was instructed to perform kick counts three times a day. Orders Placed This Encounter Procedures POCT urinalysis dipstick manually resulted Follow Up: Patient is to return to office in 2 week for routine OB appointment. Documented by Marlene Olea LPN on behalf of: Gary Robison DO documented in this encounter [facility] 01-15-2025 History of Present illness Narrative Images from the original note were not included. [facility] Daily Note Date: 01/15/2025 [id number] : 1995 (29 y.o.) Referring Provider (secondary): Dr. Partida Diagnosis: R buttock pain, sacral pain Treatment Diagnosis: back pain, SI pain Onset Date: 09/28/24 (Referral) PT Insurance Information: [facility] Total # of Visits Approved: 16 Per [...] pelvic stability-Met STG Goal 3 Status:: Met Fdc Goals Time Frame for Legal Technician Goals : 16 Legal Technician Goal 1: Improve functional mobility with Oswestry score <15/50 (from 22/50) Fdc Goal 2: Decrease R SI pain 4/10 at worst x3 days Treatment Tolerance: Treatment Tolerance: Tolerated treatment well. Post Treatment Pain: 5/10 Time In: 9:05 Time Out : 9:35 Timed Code Treatment Minutes: 30 Minutes Total Treatment Time: 30 Minutes Clara Castrejon, PT Date: 01/15/2025 documented in this encounter [facility] 01-12-2025 History of Present illness Narrative Images from the original note were not included. [facility] Daily Note Date: [...] pelvic stability-Met STG Goal 3 Status:: Met Fdc Goals Time Frame for Fdc Goals : 16 Legal Technician Goal 1: Improve functional mobility with Oswestry score <15/50 (from 22/50) Legal Technician Goal 2: Decrease R SI pain 4/10 at worst x3 days Treatment Tolerance: Treatment Tolerance: Tolerated treatment well. Post Treatment Pain: 3/10 Time In: 8:13 Time Out : 8:54 Timed Code Treatment Minutes: 41 Minutes Total Treatment Time: 41 Minutes Clara Castrejon, PT Date: 01/12/2025 documented in this encounter [facility] 01-10-2025 History of Present illness Narrative Images from the original note were not included. [facility] Daily Note Date: [...] pelvic stability-Met STG Goal 3 Status:: Met Legal Technician Goals Time Frame for Fdc Goals : 16 Legal Technician Goal 1: Improve functional mobility with Oswestry score <15/50 (from 22/50) Legal Technician Goal 2: Decrease R SI pain 4/10 at worst x3 days Treatment Tolerance: Treatment Tolerance: Tolerated treatment well. Post Treatment Pain: 4/10 Time In: 0902 Time Out: 0933 Timed Code Treatment Minutes: 31 Minutes Total Treatment Time: 31 Minutes Austen Puga PTA Date: 01/10/2025 documented in this encounter [facility] 01-05-2025 History of Present illness Narrative Images from the original note were not included. [facility] Daily Note Date: 01/05/2025 Patient Name: Meena Lucero : 1995 (29 y.o.) Referring Provider (secondary): Dr. Partida Diagnosis: R buttock pain, sacral pain Treatment Diagnosis: back pain, SI pain Onset Date: 09/28/24 (Referral) PT Insurance Information: [facility] Total # of Visits Approved: 16 Per [...] pelvic stability-Met STG Goal 3 Status:: Met Fdc Goals Time Frame for Legal Technician Goals : 16 Fdc Goal 1: Improve [...] Date: 01/05/2025 documented in this encounter [facility] 01-02-2025 History of Present illness Narrative Images from the original note were not included. [facility] Daily Note Date: [...] pelvic stability-Met STG Goal 3 Status:: Met Fdc Goals Time Frame for Legal Technician Goals : 16 Legal Technician Goal 1: Improve functional mobility with Oswestry score <15/50 (from 22/50) Fdc Goal 2: Decrease R SI pain 4/10 at worst x3 days Treatment Tolerance: Treatment Tolerance: Tolerated treatment well. Post Treatment Pain: 8/10 Time In: 1114 Time Out : 1152 Timed Code Treatment Minutes: 37 Minutes Total Treatment Time: 37 Minutes Lauryn Edwards PTA Date: 01/02/2025 documented in this encounter [facility] 12-29-2024 History of Present illness Narrative Images from the original note were not included. [facility] Daily Note Date: 12/29/2024 Patient Name: Meena Lucero : 1995 (29 y.o.) Referring Provider (secondary): Dr. Partida Diagnosis: R buttock pain, sacral pain Treatment Diagnosis: back pain, SI pain Onset Date: 09/28/24 (Referral) PT Insurance Information: [facility] Total # of Visits Approved: 16 Per [...] pelvic stability-Met STG Goal 3 Status:: Met Fdc Goals Time Frame for Legal Technician Goals : 16 Legal Technician Goal 1: Improve functional mobility with Oswestry score <15/50 (from 22/50) Legal Technician Goal 2: Decrease R SI pain 4/10 at worst x3 days Treatment Tolerance: Treatment Tolerance: Tolerated treatment well. Post Treatment Pain: 4/10 Time In: 11;15 Time Out : 11:43 Timed Code Treatment Minutes: 28 Minutes Total Treatment Time: 28 Minutes Clara Castrejon, PT Date: 12/29/2024 documented in this encounter [facility] 12-27-2024 History of Present illness Narrative Images from the original note were not included. [facility] Daily Note Date: 12/27/2024 Patient Name: Meena Lucero : 1995 (29 y.o.) Referring Provider (secondary): Dr. Partida Diagnosis: R buttock pain, sacral pain Treatment Diagnosis: back pain, SI pain Onset Date: 09/28/24 (Referral) PT Insurance Information: [facility] Total # of Visits Approved: 16 Per [...] pelvic stability STG Goal 3 Status:: Met Fdc Goals Time Frame for Fdc Goals : 16 Legal Technician Goal 1: Improve functional mobility with Oswestry score <15/50 (from 22/50) Fdc Goal 2: Decrease R SI pain 4/10 at worst x3 days Treatment Tolerance: Treatment Tolerance: Tolerated treatment well. Post Treatment Pain: 5/10 Time In: 0900 Time Out: 0935 Timed Code Treatment Minutes: 35 Minutes Total Treatment Time: 35 Minutes Austen Puga PTA Date: 12/27/2024 documented in this encounter [facility] 12-22-2024 History of Present illness Narrative Images from the original note were not included. [facility] Daily Note Date: 12/22/2024 Patient Name: Meena Lucero : 1995 (29 y.o.) Referring Provider (secondary): Dr. Partida Diagnosis: R buttock pain, sacral pain Treatment Diagnosis: back pain, SI pain Onset Date: 09/28/24 (Referral) PT Insurance Information: [facility] Total # of Visits Approved: 16 Per [...] hip abd 4+/5 for improved pelvic stability Legal Technician Goals Time Frame for Fdc Goals : 16 Legal Technician Goal 1: Improve functional mobility with Oswestry score <15/50 (from 22/50) Fdc Goal 2: Decrease R SI pain 4/10 at worst x3 days Treatment Tolerance: Treatment Tolerance: Tolerated treatment well. Post Treatment Pain: 5-6/10 Time In: 0801 Time Out: 0836 Timed Code Treatment Minutes: 35 Minutes Total Treatment Time: 35 Minutes Austen Puga PTA Date: 12/22/2024 documented in this encounter [facility] 12-20-2024 History of Present illness Narrative Images from the original note were not included. [facility] Daily Note Date: 12/20/2024 Patient Name: Meena Lucero : 1995 (29 y.o.) Referring Provider (secondary): Dr. Partida Diagnosis: R buttock pain, sacral pain Treatment Diagnosis: back pain, SI pain Onset Date: 09/28/24 (Referral) PT Insurance Information: [facility] Total # of Visits Approved: 16 Per [...] hip abd 4+/5 for improved pelvic stability Fdc Goals Time Frame for Legal Technician Goals : 16 Fdc Goal 1: Improve functional mobility with Oswestry score <15/50 (from 22/50) Legal Technician Goal 2: Decrease R SI pain 4/10 at worst x3 days Treatment Tolerance: Treatment Tolerance: Tolerated treatment well. Post Treatment Pain: 6/10 Time In: 9;00 Time Out : 9:26 Timed Code Treatment Minutes: 26 Minutes Total Treatment Time: 26 Minutes Clara Castrejon, PT Date: 12/20/2024 documented in this encounter [facility] 12-19-2024 History of Present illness Narrative Reason [...] PO) Oral ALLERGIES Allergies Allergen Reactions Hydrocodone [place] Oil Hives Codeine Rash and Unknown Chest [...] nursing note reviewed. Exam conducted with a deputy grand jury present. Vitals: Estimated body mass index is [...] tolerance, 1 hour 4. Low platelet count ([facility]) D69.6 Platelet count 5. Thrombocytopenia affecting , antepartum ([facility]) O99.119 D69.6 6. Circumvallate placenta during in [...] Gary Robison DO documented in this encounter [facility] 12-13-2024 History of Present illness Narrative Images from the original note were not included. [facility] Daily Note Date: 12/13/2024 Patient Name: Meena Lucero : 1995 (29 y.o.) Referring Provider (secondary): Dr. Partida Diagnosis: R buttock pain, sacral pain Treatment Diagnosis: back pain, SI pain Onset Date: 09/28/24 (Referral) PT Insurance Information: [facility] Total # of Visits Approved: 16 Per [...] hip abd 4+/5 for improved pelvic stability Fdc Goals Time Frame for Fdc Goals : 16 Fdc Goal 1: Improve functional mobility with Oswestry score <15/50 (from ) Fdc Goal 2: Decrease R SI pain 4/10 at worst x3 days Treatment Tolerance: Treatment Tolerance: Tolerated treatment well. Post Treatment Pain: 6/10 Time In: 0945 Time Out: 1018 Timed Code Treatment Minutes: 33 Minutes Total Treatment Time: 33 Minutes Austen Puga PTA Date: 12/13/2024 documented in this encounter [facility] 12-06-2024 History of Present illness Narrative Images from the original note were not included. [facility] Daily Note Date: 12/06/2024 Patient Name: Meena Lucero : 1995 (29 y.o.) Referring Provider (secondary): Dr. Partida Diagnosis: R buttock pain, sacral pain Treatment Diagnosis: back pain, SI pain Onset Date: 09/28/24 (Referral) PT Insurance Information: [facility] Total # of Visits Approved: 16 Per [...] hip abd 4+/5 for improved pelvic stability Fdc Goals Time Frame for Fdc Goals : 16 Fdc Goal 1: Improve functional mobility with Oswestry score <15/50 (from 22/50) Legal Technician Goal 2: Decrease R SI pain 4/10 at worst x3 days Treatment Tolerance: Treatment Tolerance: Tolerated treatment well. Post Treatment Pain: 6/10 Time In: 9:45 Time Out : 10:18 Timed Code Treatment Minutes: 33 Minutes Total Treatment Time: 33 Minutes Clara Castrejon, PT Date: 12/06/2024 Images from the original note were not included. [facility] Progress Report Date: 12/06/2024 Patient: Meenajayshree Lucero : 1995 Referring Provider (secondary): Dr. Partida Diagnosis: R buttock pain, sacral pain Treatment Diagnosis: back pain, SI pain Onset Date: 09/28/24 (Referral) PT Insurance Information: [facility] Total # of Visits Approved: 16 Per [...] hip abd 4+/5 for improved pelvic stability Fdc Goals Time Frame for Fdc Goals : 16 Legal Technician Goal 1: Improve functional mobility with Oswestry score <15/50 (from 22/50) Legal Technician Goal 2: Decrease R SI pain 4/10 at worst x3 days Clara Castrejon, PT Date: 12/06/2024 documented in this encounter [facility] 11-20-2024 History of Present illness Narrative Reason [...] hours PRN ALLERGIES Allergies Allergen Reactions Hydrocodone [place] Oil Hives Codeine Rash and Unknown Chest [...] of: CANDACE Avitia documented in this encounter [facility] 10-17-2024 History of Present illness Narrative [...] hours PRN ALLERGIES Allergies Allergen Reactions Hydrocodone [place] Oil Hives Codeine Rash and Unknown Chest [...] nursing note reviewed. Exam conducted with a deputy grand jury present. Vitals: Estimated body mass index is [...] Gary Robison DO documented in this encounter [facility] 10-17-2024 History of Present illness Narrative Occupational Therapy [facility] Date: 10/17/2024 Patient Name: Meena Lucero : 1995 Pt Cancelled Appt due to no reason for cancel [facility] Massimo Harris Date: 10/17/2024 documented in this encounter [facility] 10-12-2024 History of Present illness Narrative Images from the original note were not included. [facility] Daily Note Date: [...] hip abd 4+/5 for improved pelvic stability Legal Technician Goals Time Frame for Legal Technician Goals : 16 Legal Technician Goal 1: Improve functional mobility with Oswestry score <15/50 (from 50) Legal Technician Goal 2: Decrease R SI pain 4/10 at worst x3 days Post Treatment Pain: 4/10 Time In: 8:00 Time Out : 8:33 Timed Code Treatment Minutes: 33 Minutes Total Treatment Time: 33 Minutes Clara Castrejon, PT Date: 10/12/2024 documented in this encounter [facility] 10-04-2024 History of Present illness Narrative Physical Therapy [facility] Date: 10/04/2024 Patient Name: Meena Lucero : 1995 Pt Cancelled Appt due to therapist ill [facility] Harris Date: 10/04/2024 documented in this encounter [facility] 09-18-2024 History of Present illness Narrative Reason for Appointment: Patient ID: Meena Lucero is a 28 y.o. female who presents for Routine Visit Patient presents today for Return OB appointment. MEDICATIONS Current Outpatient Medications Medication Instructions 27-1 MG tablet Every 24 hours MV-Min-Fe Fum-FA-DHA ( 1 PO) Oral promethazine (PHENERGAN) 12.5 mg, Oral, Every 6 hours PRN ALLERGIES Allergies Allergen Reactions Hydrocodone [place] Oil Hives Codeine Rash and Unknown Chest [...] nursing note reviewed. Exam conducted with a deputy grand jury present. Vitals: Estimated body mass index is [...] or undercooked meat, and stay away from [facility]. Patient has been consulted regarding any further [...] Gary Robison DO documented in this encounter [facility] 08-18-2024 History of Present illness Narrative [...] Date CHOLECYSTECTOMY TONSILLECTOMY Allergies Allergen Reactions Hydrocodone [place] Oil Hives Codeine Rash and Unknown Chest [...] screen, urine; Future Nurse Note: Pt given [place] 21 and advised to have labs done [...] Daxa Martinez MA documented in this encounter [facility] 07-27-2024 History of Present illness Narrative Images from the original note were not included. [facility] Daily Note Date: [...] Goals Short Term Goal 1: STG= LTG Fdc Goals Time Frame for Fdc Goals : 16 visits Fdc Goal 1: Decrease subjective SI/right gluteal pain to <3/10 with activity and transitional movements Post Treatment Pain: 5/10 Time In: 0910 Time Out : 0935 Timed Code Treatment Minutes: 25 Minutes Total Treatment Time: 25 Minutes Onel Davis, PT Date: 07/27/2024 documented in this encounter [facility] 07-06-2024 History of Present illness Narrative Images from the original note were not included. [facility] Daily Note Date: [...] asymetry- MET Fdc Goals Time Frame for Fdc Goals : 10 visits Legal Technician Goal 1: Decrease subjective SI/right gluteal pain to <3/10 with activity and transitional movements Legal Technician Goal 2: Upgrade HEP for pelvic stab ex Fdc Goal 3: Maintain symetrical pelvic alignment for 5 consecutive days Post Treatment Pain: 4/10 Time In: 0910 Time Out : 0945 Timed Code Treatment Minutes: 35 Minutes Total Time: 35 Minutes ASIA MIX PT Date: 07/06/2024 documented in this encounter [facility] 06-29-2024 History of Present illness Narrative Images from the original note were not included. [facility] Daily Note Date: [...] strengthening for self-correction of pelvic asymetry- MET Legal Technician Goals Time Frame for Legal Technician Goals : 10 visits Fdc Goal 1: Decrease subjective SI/right gluteal pain to <3/10 with activity and transitional movements Fdc Goal 2: Upgrade HEP for pelvic stab ex Legal Technician Goal 3: Maintain symetrical pelvic alignment for 5 consecutive days Post Treatment Pain: 2-3/10 Time In: 0915 Time Out : 0955 Timed Code Treatment Minutes: 35 Minutes Total Time: 40 Minutes ASIA MIX PT Date: 06/29/2024 documented in this encounter [facility] 01-10-2023 Hospital Discharge instructions Fei Canales MD - 01/10/2023 3:17 PM EST There was a possible concern for fracture of the fibula. Please follow-up with Dr. Rehman for further evaluation and be sure to use crutches and be nonweightbearing until then. The following attachments cannot be sent through Care Everywhere.Ankle Sprain (Fijian)documented in this encounter [facility] Work Phone: 12-08-2022 Hospital Discharge instructions Patient [...] than 2 years old. Live in a alf. Travel on cruise ships. What are the [...] and water are not available, use hand magazine grinder loader. Make sure that all people in your household wash their hands well and often. Take [id number] and prescription medicines only as told by [...] and water are not available, use hand magazine grinder loader. This information is not intended to replace advice given to you by your health care provider. Make sure you discuss any questions you have with your health care provider. Document Released: 11/08/2006 Document Revised: 04/26/2020 Document Reviewed: 09/13/2019 [employer] Patient Education 2019 [employer]. Follow Up Care 12/08/2022 09:17:52 With:Keyon DAVIS MD, FAM Address: When: only if needed [facility] 12-04-2022 Hospital Discharge instructions Jason Tracy MD - 12/04/2022 4:33 PM EST Increase fluids at home. Take Zofran for any nausea. Try Imodium/loperamide for diarrhea. Call primary care doctor for close follow-up. Use Tylenol or Motrin to keep fever down. The following attachments cannot be sent through Care Everywhere.Viral Infections (Fijian)documented in this encounter [facility] Work Phone: 06-01-2022 Hospital Discharge instructions Patient [...] height. This can be done either in [place] ([place] or metric measurements. Note that charts are available to help you find your BMI quickly and easily without having to do these calculations yourself. To calculate your BMI in [place] ([place] measurements, your health care provider will: [...] medical problems. BMI can be measured using Fijian measurements or metric measurements. To interpret your [...] 07/20/2005 Document Revised: 10/21/2018 Document Reviewed: 09/21/2018 [employer] Patient Education 2020 [employer]. 06/01/2022 13:15:39 Carpal Tunnel Syndrome Carpal Tunnel [...] Having a job, such as being a health specialist or a art history instructor, that requires you to repeatedly move your [...] 3 times per day. General instructions Take jukc-eoi-[id number] and prescription medicines only as told by [...] 11/05/2001 Document Revised: 03/17/2019 Document Reviewed: 03/17/2019 [employer] Patient Education 2020 [employer]. Follow Up Care 05/28/2022 08:22:05 With:Meena Carl CNP Address: When: only if needed [facility] Primary Care Evaluation + Plan note [facility] Primary Care Evaluation note Diagnosis Subacute bronchitis- Primary Acute bronchitis documented in this encounter [employer] Phone: evaluation note* Diagnosis Left wrist pain Pain in joint, forearm documented in this encounter [employer] Phone: evaluation note* Diagnosis Viral illness- Primary Unspecified viral infection, in conditions classified elsewhere and of unspecified site documented in this encounter [employer] Phone: evaluation note* Diagnosis Injury of right ankle, initial encounter- Primary documented in this encounter [employer] Phone: evaluation note* Diagnosis Other closed fracture of proximal end of right fibula with routine healing, subsequent encounter documented in this encounter [employer] Phone: evaluation note* Diagnosis First trimester state, [...] in first trimester documented [facility] encounter [facility]* Diagnosis Second trimester state, incidental 20 weeks gestation of Diabetes mellitus screening Screening for diabetes mellitus [facility] Diagnosis Second trimester state, incidental 24 weeks gestation of Diabetes mellitus screening Screening for diabetes mellitus Low platelet count (CMS/HCC) Thrombocytopenia affecting , antepartum (CMS/HCC) 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, antepartum [facility]* Diagnosis 28 weeks gestation of Third trimester state, incidental Heartburn during in third trimester documented [facility] Narrative No data available for this section [facility] Primary Care Hospital Discharge instructions* Attachments The following attachments cannot be sent through Care Everywhere. * Bronchitis ([place]ijian) [facility] progress note No data available for this section [facility] Primary Care Reason for referral (narrative) Referred by: Meena Carl CNP 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 ACP-Advance Directive ACP-Power of Tree Planter Summary Purpose Family History No Family History [...] Care Team (unrecognized sect ion and content) Pattern Painter Relationship Specialty Start Date End Date Keyon Davis MD [address] [place] [address] [place] [address] PCP - General Family Medicine 12/04/22 Pattern Painter Relationship Specialty Start Date End Date Keyon Davis MD [address] [place] [address] [place] [address] PCP - General Family Medicine 12/04/22 Pattern Painter Relationship Specialty Start Date End Date Keyon Davis MD [address] [place] [address] [place] [address] PCP - General Family Medicine 12/04/22 Pattern Painter Relationship Specialty Start Date End Date Óscar Nassar DNP [address] [place] [address] PCP - General Family Nurse Practitioner 03/14/24 Pattern Painter Relationship Specialty Start Date End Date Óscar Nassar DNP [address] [place] [address] PCP - General Family Nurse Practitioner 03/14/24 Pattern Painter Relationship Specialty Start Date End Date Óscar Nassar DNP [address] [place] [address] PCP - General Family Nurse Practitioner 03/14/24 Pattern Painter Relationship Specialty Start Date End Date Óscar Nassar DNP [address] [place] [phone] PCP - General Family Nurse Practitioner 03/14/24 Pattern Painter Relationship Specialty Start Date End Date Keyon Davis MD [address] [phone] PCP - General 05/12/23 Gray Robison, [facility] [address] [place], [facility] PCP - [facility] 02/21/24 Pattern Painter Relationship Specialty Start Date End Date Keyon Davis MD [address] [place], [place] [address] [place] [address] PCP - General 05/12/23 Gary Robison, [facility] [place], [facility] PCP [facility] 02/21/24 Pattern Painter Relationship Specialty Start Date End Date Óscar Nassar DNP [address] [place] [phone] PCP - General Family Nurse Practitioner 03/14/24 Pattern Painter Relationship Specialty Start Date End Date Keyon Davis MD [facility] [place] [address] PCP - General 05/12/23 Gary Robison, [facility] [place] [address] PCP [facility] 02/21/24 Pattern Painter Relationship Specialty Start Date End Date Keyon Davis MD [address] [phone] PCP - General 05/12/23 Gary Robison, DO [facility] [place], [facility] PCP [facility] 02/21/24 Pattern Painter Relationship Specialty Start Date End Date Keyon Davis MD [address] [phone] PCP - [facility] 05/12/23 Gary Robison, DO [facility] [place], [place] [address] [facility] 02/21/24 Pattern Painter Relationship Specialty Start Date End Date Keyon Davis MD [facility] [address] [place] [phone] PCP - [facility] 05/12/23 Gary Robison, DO [facility] [place], [place] [address] [facility] 02/21/24 Pattern Painter Relationship Specialty Start Date End Date Keyon Davis MD [address] [phone] PCP - General 05/12/23 Gary Robison, DO [facility] [place] [phone] [facility] BOX SEALING INSPECTOR 02/21/24 Pattern Painter Relationship Specialty Start Date End Date Óscar Nassar DNP [address] [place], [place] [phone] PCP - General Family Nurse Practitioner 03/14/24 Pattern Painter Relationship Specialty Start Date End Date Keyon Davis MD [facility] [address] [place] [phone] PCP - General 05/12/23 Gary Robison DO [facility] [place] [address] PCP [facility] 02/21/24 Pattern Painter Relationship Specialty Start Date End Date Keyon Davis MD [facility] [address] [place] [phone] PCP - General 05/12/23 Gary Robison DO [facility] [place] [address] PCP [facility] 02/21/24 Pattern Painter Relationship Specialty Start Date End Date Óscar Nassar DNP [address] [place], [place] [phone] PCP - General Family Nurse Practitioner 03/14/24 Pattern Painter Relationship Specialty Start Date End Date Keyon Davis MD [facility] [address] [place] [phone] PCP - General 05/12/23 Gary Robison DO [facility] [place] [phone] PCP - [facility] 02/21/24 Pattern Painter Relationship Specialty Start Date End Date Keyon Davis MD [address] [place] [address] [place] [address] PCP - General 05/12/23 Gary Robison DO [address] [place] [address] [place] [address] PCP - [facility] 02/21/24 INFORMATION SOURCE (unrecogn ized section and content) DATE CREATED AUTHOR 02/01/2023 [facility] DATE CREATED AUTHOR AUTHOR'S ORGANIZ ATION 04/01/2023 [facility] DATE CREATED AUTHOR AUTHOR'S ORGANIZ ATION 01/16/2025 Kirsty Meza spimilady DATE CREATED AUTHOR AUTHOR'S ORGANIZ ATION 01/17/2025 [facility] FOR RECORDS PERTAINING TO PATIENTS WHO [...] BE BASED ON THE PRIMARY CLINICAL RECORDS. [facility] [employer] provides no warranty or guarantee of the accuracy or completeness of information in this document.
[2025-01-22 10:22] LABS: Platelet Count 151 10^3/uL (150-450)
== END 2025-01-22 10:02 | disposition home or self-care (01) ==
LOC: LAB 10:04
PROVIDERS: Visit Provider Obstetrics & Gynecology
DX: D69.6 Thrombocytopenia, unspecified (principal)
CPT/HCPCS: 36415; 85049

== ENCOUNTER 2025-02-13 09:39 | Outpatient (OUT) | payer OTHER, SELFPAY ==
--- NOTE | 2025-02-13 | US_ITS ---
[address] [address] Patient Name: RUEL READ MRN: [id number] date: 1995 Sex: F Assigned Patient Location: [facility] Current Patient Location: [facility] Accession/Order Number: [id number] Exam Date: 02/13/2025 10:42 Report Date: 02/13/2025 10:43 At the request of: BEVERLY PINTO Procedure: US OB BPP w non-stress Biophysical profile. Reason for exam: Circumvallate placenta. COMPARISON: None. TECHNIQUE: Transabdominal imaging of the gravid uterus was obtained. FINDINGS: Control Panel Tester reports a BPP of 8 out of 8. MAXIMILIANO is normal at 12.5 cm. heart rate 153 bpm. US/US OB BPP w non-stress IMPRESSION: BPP 8 out of 8. Impression dictated by: Mati Redding Jr., D.O.02/13/2025 10:43 AM Dictation Location: [facility] Electronically authenticated by: [id number] Y Date: 02/13/2025 10:43
[2025-02-13 10:06] VITALS: TEMP 36.5
[2025-02-13 10:07] VITALS: BP 118/63; PULSE 81
== END 2025-02-13 10:45 | disposition home or self-care (01) ==
LOC: US 09:39 → FBC 09:42
PROVIDERS: Visit Provider Physician Assistant
DX: O43.113 Circumvallate placenta, third trimester (principal); Z3A.33 33 weeks gestation of pregnancy
CPT/HCPCS: 76818

== ENCOUNTER 2025-02-16 08:41 | Outpatient (OUT) | payer OTHER, SELFPAY ==
--- OUTSIDE RECORDS SUMMARY | 2025-02-16 08:49 | XMS_ITS | CCD ---
Author Organization [facility] Care Team Providers Care Cmm Inspector Name Role Phone Unavailable Primary Care Provider UnavailCharli Browne Primary Care Physician [phone] Keyon Davis MD Primary Care Provider [phone] ANTHONY Carl Attending UnavailKeyon Lockett Attending Unavailable Evan Moyer Attending Unavailable LISHA, DR DRUMMOND LISTED Consulting Unavailjosh woods [facility] NICOLE Primary Care Unavailable ENRIQUETA ., DR BENDER Attending Unavailable ENRIQUETA ., DR BENDER Admitting Unavailable Clingman HUMA, Óscar A Primary Care Provider Tyshawn FINN, Óscar Moreno Primary Care Provider Keyon Davis MD Primary Care Provider [phone] Gary Robison DO Unavailable GARY ROBISON Attending Unavailable GARY ROBISON Attending Unavailable GENEVIEVE CALDERON Attending Unavailable GARY ROBISON Attending Unavailable GARY ROBISON Attending Unavailable GARY ROBISON Attending Unavailable GENEVIEVE CALDERON Attending Unavailable JOHN PARTIDA Attending Unavailable JOHN PARTIDA Referring Unavailable CLINGMAN, ÓSCAR A Primary Care Unavailable JOHN PARTIDA Attending Unavailable JOHN PARTIDA Referring Unavailable CLINGMAN, ÓSCAR A Primary Care Unavailable JOHN PARTIDA Attending Unavailable CLINGMAN, ÓSCAR A Primary Care Unavailable JOHN PRATIDA Referring Unavailable KEYON DAVIS Primary Care Unavailable GARY [...] PARTIDA Referring Unavailable JOHN PARTIDA Referring Unavailable CLINGMAN, ÓSCAR [...] Primary Care Unavailable GARY ROBISON Referring Unavailable OLEJOHN CAIN Attending Unavailable JOHN PARTIDA [...] / HYDROcodone Drug Allergy 7 Rash, Unknown [facility] (20 sources) Acetaminophen / oxyCODONE Drug Allergy 5 Rash, Unknown [facility] (20 sources) Codeine; Translations: [codeine] Drug Allergy 7 Rash, Cutaneous eruption (morphologic abnormality), Unknown [facility] (3 sources) Acetaminophen / HYDROcodone; Translations: [acetaminophen-hy drocodone] Drug Allergy [facility] (3 sources) Acetaminophen / oxyCODONE; Translations: [acetaminophen-ox ycodone] Drug Allergy Cutaneous eruption (morphologic abnormality) [facility] (1 source) Acetaminophen / HYDROcodone Drug Allergy [facility] Rep[facility] (1 source) Acetaminophen / oxyCODONE Drug Allergy [facility] (1 source) Codeine Drug Allergy [facility] (20 sources) HYDROcodone Drug Allergy 3 [facility] Healthcare (20 sources) orange allergenic extract Drug Allergy 5 [facility] Medications Current Medications Medication Drug [...] extended release oral tablet (6 sources) Uncompetitive A-btmasq-E-aspartate Receptor Antagonist, Sigma-1 Agonist Start: 09-14-2021 take 1 tablet by mouth every twelve hours as needed for cough Dextromethorphan-g uaiFENesin 60-1200 MG TB12 Take 1 tablet by mouth every 12 hours as needed (COUGH CONGESTION) 28 tablet 0 09/14/2021 Active dextromethorphan hydrobromide 3 mg/ml / promethazine hydrochloride 1.25 mg/ml oral solution (6 sources) Phenothiazine, Uncompetitive X-kxbwgi-E-aspartate Receptor Antagonist, Sigma-1 Agonist Start: 05-31-2018 promethazine-dextr [...] day(s), # 30 tab(s), Refills(s) 1, Pharmacy: [facility], 170, cm, 06/01/22 12:55:00 EDT, Height/Length [...] omeprazole 20 mg delayed release oral capsule (18 sources) Proton Pump Inhibitor Start: 11-20-2024 End: [...] pantoprazole 40 mg delayed release oral tablet (5 sources) Proton Pump Inhibitor Start: 01-16-2025 End: [...] TID, # 15 tab(s), Refills(s) 0, Pharmacy: [facility], 170, cm, 09/03/22 14:31:00 EDT, Height/Length [...] related conditions, third trimester] 01-16-2025 Episodic Other connective tissue disease (3 sources) Myalgia, other site; Translations: [Myalgia, other site] Onset: 05-22-2024 Episodic Other female genital disorders (2 sources) [...] [28 weeks gestation of ] 01-16-2025 Episodic Spondylosis; intervertebral disc disorders; other back problems (3 sources) Sacrococcygeal disorders, not elsewhere classified; Translations: [Sacrococcygeal disorders, not elsewhere classified] Onset: 05-22-2024 Episodic Unclassified (2 sources) Non-smoker 06-01-2022 Viral infection (1 source) Viral disease; Translations: [Viral infection, unspecified] Episodic Past or Other Problems Problem Classification Problem Date Documented Da te Episodic/Chronic Other and delivery including normal (20 sources) First trimester ; Translations: [Encounter for supervision of normal , unspecified, first trimester] Onset: 10-17-2024 09-18-2024 Episodic Residual codes; unclassified (20 sources) Patient encounter status; Translations: [Other specified health status] Onset: 06-01-2022 Episodic Residual codes; unclassified (19 sources) Gestation period, 15 weeks; Translations: [15 weeks gestation of ] Onset: 10-17-2024 10-17-2024 Episodic Unclassified (4 sources) Onset: 10-21-2012 Resolved: 11-22-2017 12-03-2017 NEGATED: Highlighted row has been ruled out!Unclassified (16 sources) No known active problems 05-22-2024 Results Test Name Value Interpretation Reference Range Facility ALL PLATELET COUNTon 025 TBH PLT 151 [facility] US OB PLACENTAon 01-17-2025 [place] [address] Ultrasound Report Signed Patient: MEENA LUCERO MR#: [id number] : 1995 Acct:[id number] Age/Sex: 29 / F ADM Date: 01/16/25 Loc: US Attending Dr: Gary Robison D.O. Ordering Physician: Gary Robison D.O. Date of Service: 01/16/25 Procedure(s): US OB placenta Accession Number(s): [id number] cc: Gary Robison D.O.; Physician,Non-Staff M.DRosa [place] [id number] Patient Name: MEENA LUCERO MRN: [facility]:[id number] date: 1995 Sex: F Assigned Patient Location: US Current [facility] Accession/Order Number: [id number] Exam Date: 01/16/2025 11:08 Report Date: 01/16/2025 [...] Marlene Orellana M.D.01/16/2025 11:19 AM Dictation Location: [place] [address] Electronically authenticated by: [id number] Y Date: 01/16/2025 11:19 Dictated By: Marlene Orellana M.D. Signed By: 01/17/25 1034 DD/ 1119 TD/TT: Raw Stock Drier Tender: [facility] Radiology, Radiologist, MD - 01/17/2025 [place] [address] Ultrasound Report Signed Patient: MEENA LUCERO MR#: [id number] : 1995 Acct:[id number] Age/Sex: 29 / F ADM Date: 01/16/25 Loc: US Attending Dr: Gary Robison D.O. Ordering Physician: Gary Robison D.O. Date of Service: 01/16/25 Procedure(s): US OB placenta Accession Number(s): [id number] cc: Gary Robison D.O.; Physician,Non-Staff Del The [place] [id number] Patient Name: MEENA LUCERO MRN: [facility]:[id number] date: 1995 Sex: F Assigned Patient Location: US Current [facility] Location: [facility] Accession/Order Number: [id number] Exam Date: 01/16/2025 11:08 Report Date: 01/16/2025 [...] Marlene Orellana M.D.01/16/2025 11:19 AM Dictation Location: [place] [address] Electronically authenticated by: [id number] Y Date: 01/16/2025 11:19 Dictated By: Marlene Orellana M.D. Signed By: 01/17/25 1034 DD/ 1119 TD/TT: Raw Stock Drier Tender: [facility] [employer] OB PLACENTAOrdered By: Ra duncan Radiology on 01-17-2025 [facility] [employer] e Work Phone: No Panel Informationon 01-16 Radiology Study observation (narrative) [facility] OB GROWTHon 01-16-[address] [address] Ultrasound Report Signed Patient: MEENA LUCERO MR#: [id number] : 1995 Acct:[id number] Age/Sex: 29 / F ADM Date: 01/16/25 Loc: US Attending Dr: Gary Robison D.O. Ordering Physician: Gary Robison D.O. Date of Service: 01/16/25 Procedure(s): US OB growth Accession Number(s): [id number] cc: Gary Robison D.O.; Physician,Non-Staff M.Martinez [place] [id number] Patient Name: MEENA LUCERO MRN: [id number] date: 1995 Sex: F Assigned Patient Location: Current Patient Location: US Accession/Order Number: [id number] Exam Date: 01/16/2025 11:08 Report Date: 01/16/2025 [...] Marlene Orellana M.D.01/16/2025 11:19 AM Dictation Location: [place] [address] Electronically authenticated by: [id number] Y Date: 01/16/2025 11:19 Dictated By: Marlene Orellana M.D. Signed By: 01/16/25 1122 DD/ 1119 TD/TT: Raw Stock Drier Tender: [facility] Radiology, Radiologist, MD - 01/16/2025 [place] [address] Ultrasound Report Signed Patient: MEENA LUCERO MR#: [id number] : 1995 Acct:[id number] Age/Sex: 29 / F ADM Date: 01/16/25 Loc: US Attending Dr: Gary Robison D.O. Ordering Physician: Gary Robison D.O. Date of Service: 01/16/25 Procedure(s): US OB growth Accession Number(s): [id number] cc: Gary Robison D.O.; Physician,Non-Staff Del The [place] [id number] Patient Name: MEENA LUCERO MRN: [facility]:[id number] date: 1995 Sex: F Assigned Patient Location: Current Patient Location: US Accession/Order Number: [id number] Exam Date: 01/16/2025 11:08 Report Date: 01/16/2025 [...] Marlene Orellana M.D.01/16/2025 11:19 AM Dictation Location: [place] [address] Electronically authenticated by: [id number] Y Date: 01/16/2025 11:19 Dictated By: Marlene Orellana M.D. Signed By: 01/16/25 1122 DD/ 1119 TD/TT: Raw Stock Drier Tender: [facility] OB GROWTHOrdered By: Braxton bravoogrolo Radiology on 01-16-2025 [facility] [employer] Work Phone: Urinalysis macro (dipstick) panel (U)on 01-16-2025 Bilirubin, UA Negative Negative - 4(70) +++ mg/dL [facility] Blood, UA Negative Negative - 50 Darnell/mcL [facility] Clarity, UA Clear [facility] re Color, UA Yellow [facility] [employer] Glucose, UA Negative Negative - 1999(110) ++++ mg/dL [facility] Interpretation and review of laboratory results Abnormal [facility] re Ketones, UA Negative Negative - 160(16) ++++ mg/dL [facility] Leukocytes, UA Moderate Negative - 500+++ Shona/mcL [facility] Nitrite, UA Negative Negative - Positive [facility] pH, UA 7 5 - 9 [facility] [employer] e Protein, UA Negative Negative - 1999(20) ++++ mg/dL [facility] Spec Grav, UA 1.015 1 - 1.03 [facility] Urobilinogen, UA 0.2 0.2 - 12 mg/dL [facility] ALL PLATELET COUNTon 025 Interpretation and review of laboratory results Abnormal [facility] re TBH PLT 139 Low [facility] ALL CBC WITH AUTO DIFFon BASOPHILS ABSOLUTE AUTO 0 [facility] Basophils/100 WBC (Bld) 0.2 % 0.2 - 2.0 % [facility] Eosinophils/100 WBC (Bld) 0.9 % 0.9 - 7.0 % [facility] Erythrocyte distribution width (RBC) [Ratio] 13.2 % 11.0 - 15.0 % [facility] Hematocrit (Bld) [Volume fraction] 34.6 % Low 36.0 - 48.0 % [facility] Hemoglobin (Bld) [Mass/Vol] 11.5 g/dL Low 12.0 - 16.0 g/dL [facility] IMMATURE GRANULOCYTES ABS AUTO 0.02 [facility] Immature granulocytes/100 WBC (Bld) 0.3 % 0.0 - 0.5 % [facility] Interpretation and review of laboratory results Abnormal [facility] re LYMPHOCYTES ABSOLUTE AUTO 1.3 [facility] Lymphocytes/100 WBC (Bld) 22 % 20.5 - 60.0 % [facility] MCH (RBC) [Entitic mass] 28.8 pg 26.7 - 34.0 pg [facility] MCHC (RBC) [Mass/Vol] 33.2 g/dL 29.9 - 35.2 g/dL [facility] MCV (RBC) [Entitic vol] 86.5 fL 81.0 - 99.0 fL [facility] MONOCYTES ABSOLUTE AUTO 0.4 [facility] Monocytes/100 WBC (Bld) 7.2 % 1.7 - 12.0 % [facility] NEUTROPHILS ABSOLUTE AUTO 4 [facility] Neutrophils/100 WBC (Bld) 69.4 % 43.0 - 75.0 % [facility] Platelet mean volume (Bld) [Entitic vol] 11.7 fL 9.5 - 13.5 fL [facility] TBH EO # 0.1 [facility] TBH PLT 117 Low [facility] TBH RBC 4 Low [facility] TBH WBC 5.7 [facility] Urinalysis macro (dipstick) panel (U)on 12-19-2024 Bilirubin, UA Negative Negative - 4(70) +++ mg/dL [facility] Blood, UA Negative Negative - 50 Darnell/mcL [facility] Clarity, UA Clear [facility] Color, UA Yellow [facility] Glucose, UA Positive Negative - 1999(110) ++++ mg/dL [facility] Comment on above: 100 mg Interpretation and review of laboratory results Abnormal [facility] Ketones, UA Negative Negative - 160(16) ++++ mg/dL [facility] Leukocytes, UA Positive Negative - 500+++ Shona/mcL [facility] Comment on above: small Nitrite, UA Negative Negative - Positive [facility] pH, UA 7 5 - 9 [facility] Protein, UA Negative Negative - 1999(20) ++++ mg/dL [facility] Spec Grav, UA 1.02 1 - 1.03 [facility] Urobilinogen, UA 0.2 0.2 - 12 mg/dL [facility] Urinalysis macro (dipstick) panel (U)on 11-20-2024 Bilirubin, UA Negative Negative - 4(70) +++ mg/dL [facility] Blood, UA Negative Negative - 50 Darnell/mcL [facility] Clarity, UA Clear [facility] re Color, UA Yellow [facility] Glucose, UA Negative Negative - 1999(110) ++++ mg/dL [facility] Interpretation and review of laboratory results Abnormal [facility] re Ketones, UA Negative Negative - 160(16) ++++ mg/dL [facility] Leukocytes, UA Positive Negative - 500+++ Shona/mcL [facility] Comment on above: small Nitrite, UA Negative Negative - Positive [facility] pH, UA 7.5 5 - 9 [facility] Protein, UA Negative Negative - 1999(20) ++++ mg/dL [facility] Spec Grav, UA 1.015 1 - 1.03 [facility] Urobilinogen, UA 0.2 0.2 - 12 mg/dL [facility] IGP,APTIMA HPV,AGE GDLNon AGE GDLN ACOG TESTING Note . [facility] Comment on above: TESTS RESULT FLAG UN ITS REF RANGE LAB Clinician Provided Cytology Information Source.............Cervix No. of containers..01 ThinPrep Vial Age Jermain ANGEL Subha... FLAG LEGEND: L-Low Normal,H-High Normal,LL-Alert Low,HH-Alert High <-Panic Low,>-Panic High,A-Abnormal,AA-Critical Abnormal Performed at: 01 =[facility] [address] [place] [address] Yulisa Mustafa MD, IGP, RFX APTIMA HPV ASCU Note . [facility] Comment on above: TESTS RESULT FLAG UN ITS REF RANGE LAB DIAGNOSIS: 02 NEGATIVE FOR INTRAEPITHELIAL LESION OR MALIGNANCY. FUNGAL ORGANISMS MORPHOLOGICALLY CONSISTENT WITH FELIPE SPECIES ARE PRESENT. Specimen adequacy: 02 Satisfactory for evaluation. Endocervical and/or squamous metaplastic cells (endocervical component) are present. Performed by: 02 Susan Boucher, Diver Tender ([facility]) . 02 Note: Note 03 The [...] <-Panic Low,>-Panic High,A-Abnormal,AA-Critical Abnormal Performed at: [address] [address] Pily Shields PhD, [address] [address] Yulisa Mustafa MD, Performed at: =[address] [id number] [employer] Consultant: Yulisa Mustafa MD, Phone: [phone] Performed at: [address] [id number] [employer] Consultant: Pily Shields PhD, Phone: [phone] SPATULA-ALONE CERVIX [facility] e RECURRENT VAGINITIS (HTRX)on 10-18-2024 [facility] V[facility]AE Not detected [facility] BVAB 2,3 (BACTERIAL VAGINOSIS ASSOCIATED BACTERIA 2, 3); MOBILUNCUS SPP 0 [facility] BVAB 2,3 (BACTERIAL VAGINOSIS ASSOCIATED BACTERIA 2, 3); MOBILUNCUS SPP Not detected [facility] FELIPE ALBICANS, PARAPSILOSIS, TROPICALIS 0 [facility] FELIPE ALBICANS, PARAPSILOSIS, TROPICALIS Not detected [facility] FELIPE GLABRATA 0 [facility] FELIPE GLABRATA Not detected [facility] FELIPE KRUSEI 0 [facility] FELIPE KRUSEI Not detected [facility] CHLAMYDIA TRACHOMATIS 0 [facility] CHLAMYDIA TRACHOMATIS Not [facility] GARDNERELLA [facility]INALIS 0 [facility] GARDNERELLA VAGINALIS Not detected [facility] MEGASPHAERA (TYPES 1, 2) 0 [facility] MEGASPHAERA (TYPES 1, 2) Not detected [facility] MYCOPLASMA GENITALIUM 0 [facility] MYCOPLASMA GENITALIUM Not detected [facility] NEISSERIA GONORRHOEAE 0 [facility] NEISSERIA GONORRHOEAE Not detected [facility] TRICHOMONAS VAGINALIS 0 [facility] TRICHOMONAS VAGINALIS Not detected [facility] Urinalysis macro (dipstick) panel (U)on 10-17-2024 Bilirubin, UA Negative Negative - 4(70) +++ mg/dL [facility] Comment on above: n Blood, UA Negative Negative - 50 Darnell/mcL [facility] Clarity, UA Clear [facility] re Color, UA Yellow [facility] Glucose, UA Negative Negative - 1999(110) ++++ mg/dL [facility] Interpretation and review of laboratory results Normal [facility] re Ketones, UA Negative Negative - 160(16) ++++ mg/dL [facility] Leukocytes, UA Negative Negative - 500+++ Shona/mcL [facility] Nitrite, UA Negative Negative - Positive [facility] pH, UA 6 5 - 9 [facility] Protein, UA Negative Negative - 1999(20) ++++ mg/dL [facility] Spec Grav, UA 1.03 1 - 1.03 [facility] Urobilinogen, UA 0.2 0.2 - 12 mg/dL [facility] Urinalysis macro (dipstick) panel (U)on 09-18-2024 Bilirubin, UA Negative Negative - 4(70) +++ mg/dL [facility] Blood, UA Negative Negative - 50 Darnell/mcL [facility] Clarity, UA Clear [facility] re Color, UA Yellow [facility] Glucose, UA Negative Negative - 1999(110) ++++ mg/dL [facility] Interpretation and review of laboratory results Normal [facility] re Ketones, UA Negative Negative - 160(16) ++++ mg/dL [facility] Leukocytes, UA Negative Negative - 500+++ Shona/mcL [facility] Nitrite, UA Negative Negative - Positive [facility] pH, UA 6.5 5 - 9 [facility] Protein, UA Negative Negative - 1999(20) ++++ mg/dL [facility] Spec Grav, UA 1.015 1 - 1.03 [facility] Urobilinogen, UA 0.2 0.2 - 12 mg/dL [facility] e BOX TESTon 09-11-2024 BOX TEST SENT OUT [facility]thcare [address] [facility] [employer] e [address]OX2 11/11/24 [facility] [employer] BOX [facility] e HCG ( test) Ql (U)o n 08-18-2024 Interpretation and review of laboratory results Abnormal [facility] re Preg Test, Ur Positive [facility] Urinalysis macro (dipstick) panel (U)on 08-18-2024 Bilirubin, UA Negative Negative - 4(70) +++ mg/dL [facility] Blood, UA Negative Negative - 50 Darnell/mcL [facility] Clarity, UA Clear [facility] Color, UA Yellow [facility] e Glucose, UA Negative Negative - 1999(110) ++++ mg/dL [facility] Interpretation and review of laboratory results Abnormal [facility] re Ketones, UA Negative Negative - 160(16) ++++ mg/dL [facility] Leukocytes, UA Negative Negative - 500+++ Shona/mcL [facility] Nitrite, UA Positive Negative - Positive [facility] Comment on above: small pH, UA 7.0 5 - 9 [facility] Protein, UA Negative Negative - 1999(20) ++++ mg/dL [facility] Spec Grav, UA 1.015 1 - 1.03 [facility] Urobilinogen, UA 0.2 0.2 - 12 mg/dL [facility] Health[facility] e ALL HCG, QUANTITATIVEon 07-23 Interpretation and review of laboratory results Abnormal [facility] MHPT HCG, QUANT 90032.0 High NINF [facility] Heal thcare Comment on above: Non-preg premeno <=5 Postmeno <=8 Male <=3 If HCG results do not concur with clinical observations, additional testing to confirm results is recommended. Original Ordering Provider: GARY JEFF ENRIQUETA [facility] HCG, Quanton 08-07-2024 HCG, Quant 49310.0 mIU/mL High <5 [facility] Comment on above: Result Comment: Non-preg premeno <=5 Postmeno <=8 Male <=3 If HCG results do not concur with clinical observations, additional testing to confirm results is recommended. Performed By: #### B HCG #### [facility] [address] [place] [address] [employer] Consultant: Armen Madrigal MD HCG, Quantitative, on 08-07-2024 [place] [address].0 m[IU]/mL High [facility] Comment on above: Non-preg premeno <=5 Postmeno <=8 Male <=3 If HCG results do not concur with clinical observations, additional testing to confirm results is recommended. Interpretation and review of laboratory results Abnormal [facility] ALL HCG, QUANTITATIVEon 07-23 Interpretation and review of laboratory results Abnormal [facility] Healthca re MHPT HCG, QUANT 1366.0 High [facility] Comment on above: Non-preg premeno <=5 Postmeno <=8 Male <=3 If HCG results do not concur with clinical observations, additional testing to confirm results is recommended. Original Ordering Provider: GARY JEFF ENRIQUETA [facility] HCG, Quanton 08-02-2024 HCG, Quant 1366.0 mIU/mL High <5 [facility] Comment on above: Result Comment: Non-preg premeno <=5 Postmeno <=8 Male <=3 If HCG results do not concur with clinical observations, additional testing to confirm results is recommended. Performed By: #### B HCG #### [facility] [address] [place] [address] [employer] Consultant: Armen Madrigal MD ALL HCG, QUANTITATIVEon Interpretation [...] 07-31-2024 HCG, Quant 506.3 mIU/mL High <5 [facility] Comment on above: Result Comment: Non-preg premeno <=5 Postmeno <=8 Male <=3 If HCG results do not concur with clinical observations, additional testing to confirm results is recommended. Performed By: #### B HCG #### [facility] [address] [place] [address] [employer] Consultant: Armen Madrigal MD HCG, Quantitative, on 07-31-2024 HCG.beta subunit Qn 506.3 m[IU]/mL High NINF B ON [facility] Comment on above: Non-preg premeno <=5 Postmeno <=8 Male <=3 If HCG results do not concur with clinical observations, additional testing to confirm results is recommended. Interpretation and review of laboratory results Abnormal [facility] ALL HCG, QUANTITATIVEon Interpretation and review of laboratory results Abnormal [facility] MHPT HCG, QUANT 200.3 High NINF [facility] Comment on above: Non-preg premeno <=5 Postmeno <=8 Male <=3 If HCG results do not concur with clinical observations, additional testing to confirm results is recommended. Original Ordering Provider: GARY AGUILAR DO [facility] e HCG, Quanton 07-29-2024 HCG, Quant 200.3 mIU/mL High <5 [facility] Comment on above: Result Comment: Non-preg premeno <=5 Postmeno <=8 Male <=3 If HCG results do not concur with clinical observations, additional testing to confirm results is recommended. Performed By: #### B HCG #### [facility] [address] [place] [address] Webmethods Consultant: Armen Madrigal MD ALL HCG SERUM,QUALITATIVEon 07-27-2024 Interpretation and review of laboratory results Abnormal [facility] MHPT HCG SCREEN, BLOOD Positive Abnormal NEG [facility] Comment on above: If HCG results do not concur with clinical observations, additional testing to confirm result is recommended. This test is not labeled for use as a tumor marker. [facility] has confirmed the use of plasma for this test. This has not been cleared or approved by the U.S. Food and Drug Administration. The FDA has determined that such clearance is not necessary. Original Ordering Provider: [facility] H[facility] Screen, Bloodon 07-27-20 24 HCG Screen, Blood Positive Abnormal NEG [facility] Comment on above: Result Comment: If HCG results do not concur with clinical observations, additional testing to confirm result is recommended. This test is not labeled for use as a tumor marker. [facility] has confirmed the use of plasma for this test. This has not been cleared or approved by the U.S. Food and Drug Administration. The FDA has determined that such clearance is not necessary. Performed By: #### H CG #### [facility] [address] [place] [address] Webmethods Consultant: Armen Madrigal MD HCG, Quanton 07-27-2024 HCG, Quant 73.4 mIU/mL High <5 [facility] Comment on above: Result Comment: Non-preg premeno <=5 Postmeno <=8 Male <=3 If HCG results do not concur with clinical observations, additional testing to confirm results is recommended. Performed By: #### B HCG #### [facility] [address] [facility] [place] [address] Webmethods Consultant: Armen Madrigal MD HCG, Quanton 06-08-2024 HCG, Quant <1.0 Normal <5 [facility] Comment on above: Result Comment: Non-preg premeno <=5 Postmeno <=8 Male <=3 If HCG results do not concur with clinical observations, additional testing to confirm results is recommended. Performed By: #### B HCG #### [facility] [address] [place] [address] Webmethods Consultant: Armen Madrigal MD XR SACRUM COCCYX (MIN [...] result Normal [facility] HCG, Quanton 03-04-2024 HCG, Quant 3680.0 mIU/mL High <5 [facility] Comment on above: Result Comment: Non-preg premeno <=5 Postmeno <=8 Male <=3 If HCG results do not concur with clinical observations, additional testing to confirm results is recommended. Performed By: #### B HCG #### [facility] [address] [place] [address] Webmethods Consultant: Armen Madrigal MD Cytology Cervical or vaginal smear or scraping studyon 05-26-2023 [facility] RAD - MISCon 02-01-2023 RAD - MISC [id number] #1.00CD:127 Normal [facility] XR ANKLE RIGHT (MIN 3 VIEWS) on 01-29-2023 FINDINGS/IMPRESSION: 1. Compression fracture tip of the fibula no longer separately seen. 2. Anatomic alignment throughout. 3. Soft tissue swelling has resolved. [facility] EXAM: XR ANKLE RIGHT (MIN 3 VIEWS). HISTORY: Other closed fracture of proximal end of right fibula with routine healing, subsequent encounter. COMPARISON: 01/10/2023. [facility] Mauro Anton Jr., MD - 01/29/2023 EXAM: XR ANKLE RIGHT (MIN 3 VIEWS). HISTORY: Other closed fracture of proximal end of right fibula with routine healing, subsequent encounter. COMPARISON: 01/10/2023. IMPRESSION: FINDINGS/IMPRESSION: 1. Compression fracture tip of the fibula no longer separately seen. 2. Anatomic alignment throughout. 3. Soft tissue swelling has resolved. [employer] Phone: Radiology Study observation (narrative) [employer] Phone: XR ANKLE RIGHT (MIN 3 VIEWS) Ordered By: Mauro Anton on 01-29-2023 [employer] Phone: RAD - MISReplaced By [facility] 01-11-2023 RAD - MIS [id number] #1.00CD:127 Normal [facility] XR ANKLE RIGHT (MIN 3 VIEWS) on 01-10-2023 FINDINGS/IMPRESSION: 1. Very small nondisplaced incomplete fracture is questioned in the distal tip of the right fibula, with mild surrounding soft tissue swelling. 2. No other fracture, malalignment, significant arthritis or acute bony abnormality is seen. [facility] CLINICAL HISTORY: Right ankle pain and swelling since an injury yesterday. RIGHT ANKLE 3 VIEWS: [facility] João Amezquita MD - 01/10/2023 CLINICAL HISTORY: Right ankle pain and swelling since an injury yesterday. RIGHT ANKLE 3 VIEWS: IMPRESSION: FINDINGS/IMPRESSION: 1. Very small nondisplaced incomplete fracture is questioned in the distal tip of the right fibula, with mild surrounding soft tissue swelling. 2. No other fracture, malalignment, significant arthritis or acute bony abnormality is seen. [employer] Phone: Radiology Study observation (narrative) [employer] Phone: XR ANKLE RIGHT (MIN 3 VIEWS) Ordered By: João Amezquita on 01-10-2023 [employer] Phone: Ambulatory Visit Summaryon 0 12-08-2022 Ambulatory Visit Summary MEENA LUCERO :1995 Visit Date:12/08/2022 Ambulatory Visit Instructions Your Diagnosis Gastroenteritis due to Clarendon-like virus Obesity due to excess calories BMI [...] to 60 minutes before meals Pickup at [facility] Unchanged multivitamin, ( Multivitamins with Vitamin B Complex, Vitamin C, Minerals and L-Methylfolate oral capsule) 1 Capsules By Mouth Every day Contact prescribing physician if questions or concerns Unchanged ondansetron (Zofran ODT 4 mg Tab-Dis) 1 Tablets By Mouth 3 times a day Contact prescribing physician if questions or concerns Pharmacy Information [facility]: [address], [place] [id number] [phone] Medications and Immunizations Administered Not Given influenza virus vaccine, inactivated, Postpone due to refusal SARS-CoV-2 mRNA (tozinameran 5y-11y) vac, Postpone due to refusal Allergies Percocet 5/325 (Hives, Rash) Vicodin (Hives) codeine (Hives, Rash) Problems Ongoing - Any problem that you are currently receiving treatment for. BMI 31.0-31.9,adult Gastroenteritis due to Clarendon-like virus Non-smoker Obesity due to excess calories [...] immune system (more content not included)... Normal [facility] ED Note-Physicianon 12-08-19 ED Note-Physician [id number] #1.00CD:127 Normal [facility] Medicine Office/Clini c Noteon 12-08-2022 Family Medicine [...] for influenza and COVID. 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 Gastroenteritis due to Clarendon-like virus (A08.8: Other specified intestinal infections) Viral [...] day(s), # 30 tab(s), Refills(s) 0, Pharmacy: [facility], 170, cm, 12/08/22 12:00:00 EST, Height/Length Dosing, 90.5, kg, 12/08/22 12:00:00 EST, Weight Dosing Follow-up With When Contact Information SUSAN BENAVIDEZ, KANDY Caban Only if needed Additional Instructions: Patient Education Viral Gastroenteritis, Adult Problem List/Past Medical History Ongoing BMI 31.0-31.9,adult Gastroenteritis due to Clarendon-like virus Non-smoker Obesity due to excess calories [...] Use, 05/26/2017 Employment/School 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 Normal [facility] Comment on above: Result [...] and water are not available, use hand reinforcing steel erector. ? Make sure that all people in your household wash their hands well and often. ? Take uhoz-njg-juacikr and prescription medicines only as told by [...] to person (more content not included)... Normal [facility] COVID-19, Rapidon 12-04-2022 SARS-CoV-2 (COVID-19) RNA WADE+probe Ql (Unsp spec) Not detected Not Detected [facility] Comment on above: Rapid NAAT: [...] management decisions. Fact sheet for Healthcare Providers: https://www.fda.gov/media/660535/download Fact sheet for Patients: https://www.fda.gov/media/690669/download Methodology: Isothermal Nucleic Acid Amplification Specimen Description .NASOPHARYNGEAL SWAB [facility] Rapid influenza A/B antigens on 12-04-2022 Flu A Antigen Negative NEGATIVE [facility] Comment on above: for Influenza A Anti gen Flu B Antigen Negative NEGATIVE [facility] Comment on above: for Influenza B Anti gen. [facility] C Urineon 09-06-2022 Bacteria identified [...] Locations R1: This test was performed at: [facility], [address] [place] [address], [address] , , [facility] Comment on above: Performed By: #### 2 [id number], [id number], [id number] ####[place] [id number] [place] [address] Coding Summary.on 09-04-2022 Coding Summary. CD:[id number] Gh0bWw+PGhlYWQ+PE1FV LCuX32hvHTesD4XZ1sLA L5FSFJIPWRGKD4HGF7cf YE6JVtjA0QmarOo HridzRSkSS99DMl2JGM9 oTmqTKjloI3ryPHfM1q3 PoBlCF73gY28JEqxQIEa DxB0ZkVclbdvoDHe E7lqNhQjxOXiJcj+PHRh YmxlIHdpZHRoPScxMDAl EwDirYhzSG5tDb4gIHUm LWNvbGxhcHNlOiBj s5mqZRVkZEvtWY7xaGfg X7IhbEO6YAHni2q5Bs77 dHI+MTZiTCH8hMkeQBmv a475PjBtx0gsRDS2 yPGuZXdfGAE8S49pd1B6 IMYxXGYlTWL1aQB6bX7r aQrcxswvK2WzxLQpCxC7 YDR4rOWppS2zaDqq vitszW9sToi+D65MNH7B ARZMUC9TXmi8P8QoQash dHI+ZF95BJLjTR95ySNz xGHig4wdfOa7AwRu NCElBGO9qJggJLrcx5Vq LLSeS46hwJLpm9U4MRJt eAxhaKFfBmSjnHE4oD3n EWlgxwxzy5zffxvs Pdfde7sxgj46bG71Y48u QFrxQVIyZVK3SRJxWMWy rExbje9nuG3mAq1+IDxj h3dtc3ujuWu0BfSx TTXsadZayAwoGFC2g0Kl Jw92D6EtiAmey3WeDdn0 pz82zUGss8C5gUU8HAxx EAMcyJ5dHEelCwK7 LCFfSxLolJ52vBKjRHjw Nl1epEpwxUymYT2iUZGd odgmJXVxdK5bKQCykFVk cUrdQG3aATWwreix q827GkXzDKM5AUVugYCn U5SlyM5eIbOoRKWaLWOt C7DxuEZeVYdvA353QIkp YmO8ZNLiskNzM9Wf RONmxKaqGxH7s0A9Px7F g6AurmpiHQU2XNrqIWCi ZxA7PcYgBaT1G8MyWah1 PNYsvGnzWW1xC1Te PIQzpxizuamfwUJ8MDHy TEIhaM29zJEnREjlWe0g g6S8p876QHZlDCPrbZ91 Qy9klLcgGSMozLLM vJ6nmttvq6jruwmtLvHl EMVmRTu7EXx9BBRcdIfm IsWkUPL9NfS1SLK0lUBz vZ6ghIxfzeqmjZ6v Oyc+K00vuR4bRMW4FIN4 zfxcIPSsucFdQX25PB81 Z3ZqPcokjGQfvFT+PGRp gjVoyHznHE5rPuFf l6qxw2QgUNvzP3QqEIIp FKytCew2HCXuMVF1hNQ3 eL1cXULhJIzdn4K8bLU7 I0QnkdOlck0ue4nu UFSzPNrlG03jzBXkq8W9 LOCkqVG3YUOffKqwUqDp kA60Yug+CWFmyGwxl6Eg Zrdva9ivf0exhSy0 IjMwJSIgdmFsaWduPSJ0 y3CvBn31P53rQIebJDZu FSNjLKUlTAArjEunuq0o vR3fOw7+PGNvbCB3 zLE9iM0lEOGrWiT9BBgi F819NqXjlODfTwzll1or s2zfuWh4SlDnLWCcyrDp jUgeHJZ8r9NpYy87 D01bXDwqGDAeHKThPWXq EXUmaYytno3rnS6eXk1+ KY6xq7fxqs57zB89vVC+ SCGuCHQ8sSraVGwp GVWjuS8aMImrImR3WXKv WhDwmR56kLTpWOokKt0b pWbfeIufKW2uKWPtdwen p623NfVow2azPPMl mXCbZCeoOKE1K06bc9N9 OXIoHHWlLJJ9kPA5jZ0t bGlnbjogbGVmdDsgdmVy yIpaMLrkSBchA699 IHRvcDsnPlBhdGllbnQg WbJgNWu5K0CyLli0GZNh rVhgCB9odOQdYYwlAi3a eDyfnJuwGP9oHUDc ovnyf021ToKzk9hsJORj sDStTRhjGJM5V06jr2G3 ACRjFXPuDJA0xKU4rY2r bGlnbjogbGVmdDsg qcCfiDecTLypXLthG132 IHRvcDsnPkJpcnRoIERh cTV7ZD48KD44bQIqw8O3 uHN4S5LrTNYceeds bgxyoWR7IYNdJMUliG42 Yi8idTpnXi1oANEnSVW2 SPQxfERnB9IuaP0wKgYq BDKlLUHhJ7CeqDUu OQajF532BZxaCwQ5YQWg ryLkM4ErMWCblQrvPkJ1 q4Q6Cf8TQ7V1OX15XP03 gZFhy8N2sDW7G2It MKKjdqgkzjzerWG7VFFi WFAbmH94Xo5vkJtoOc0z AHLgTHR7MTKfhDOkA6Hl aE6pQuPsYMNdVXXg C2HduXXkRMbvF584IOgi GyN0LKYvczDcS4BtHFCm oDxrZsL5e1B0Kg7CRTm4 DG67ZD77fSWxd3P2 aSR6B0ExFUKkgaddvftn tMX5XMRxERVfmT06Wp2h kCghCt5nKKQdXGX8VPIj mEXpZ4JsfO4cKfYg IHCdTYXhV0KucLCnBJfj X735IMlqIhJ2ISQbcdLu N2WbAURnvOobIzM9s4P0 Jj4TLSXpEU95YMI9 pOK7IG53FD28N2YjXxbx dGFibGU+PHRhYmxlIHdp ZHRoPScxMDAlJyBzdHls XT0mQq1hTUJvXLXd xYtybCCrLdNsb7xaNEGh HQpoRV4jiKpaB8WsgUF8 NXQpt8u0Cz31O29vX5Mw dXA+LEGhkRP4tBC4 rP7yEtHgHmW8IRlhE434 YsHvdXYsXyjeo6idt0do jMi6ZzH0BBZrqmQtjGxs UKY4k5MvZq63L85o IHdpZHRoPSIxNSUiIHZh vNzfij6yoA4fMd4+PGNv oLF6zNN8cQ3pPbWsKzA3 KTwgW242RfDlgNHs Gzbcf8xta0tzjGw7LrFt KZCrpnOvsWakURO8s4Rv Nn69I8BefUxva3CwBsf9 hi55pILwj8Q7oEL9 L8WtIPNhayzacSCtrApi PT2xEBSfxwbdIZTsiP8i PKZyW0i0XoXfPqN3GOww B3IltsC0FTWtbMRu AHbsUTY8P15pd8E7WEOc SRJcSZS7sOK5lO2ddAzb bjogbGVmdDsgdmVydGlj LCvvKIknZ763NZQi fVztGIHfiV9uZYKahWXx mOhpUC2aYHCrgfdjRdFD Sk7JIDHgJDtGSPpVSI3l RTwvdGQ+PHRkIHN0 cIjhBImvHNLbbK5mAZAa D3h9RoExMsF5LXneF1Pz BECvtqwpEt78sR6zWkKk SoI2VPdjU6TossE9 YMWquTDpUNitYAH0Y52j l6H8XJFuWSItLGB5yQJ2 xC1puPslbvtnyRGojFxb dmVydGljYWwtYWxp T932GXDqoUhjJaKtLlN9 XxA4HZK2P7DxZkq7KNQt mSmaJV2czLPpUIjmVi3q jXvonDfmLA0fBTHv agruBHBzjJ1lTMQqwNDt kJsaBV4lUKFinlrip212 AlXwUZB7QXKgsKSaV1Bm uV9hUcQuWEZkGERa F9IwcUNuWSzjD892VAgw UkX8EEXmldGtR8QsVXNc zGgnEzY4q1O5Eq1fBfBB ZWFyczwvdGQ+PHRk WHA3xFxaJIooHSOdqL1f TVChK0e7JcGsMmR3HQng C9KwPQVvsnwzPc71yZ2e QfClGxV7CNbuD3Ph grJ0SWUikUNoUDudFEH9 Y53sg2E9FOAcRCMbYUS1 yUT2kX4hyVnffjtvkQRq dDsgdmVydGljYWwt NJgnD214OWTntMepNjUv bWFsZTwvdGQ+PHRkIHN0 lCukJBbjIQFhnB4lAXTz X7m0YoCiBmE5KJka W3TdPEPfhmyjPn81dN8s TkIjHxX0YSdpU8RxiaZ7 FTOalWIgUDubSCF7B45d r0N5CZGnPTAgPIC3 uAE1rZ8ngTaragnphILr dDsgdmVydGljYWwtYWxp G777ZUBecAjgPwNqBNTg FA5wmYmjxRG+PC90 nf21J9RtFigdSxr5RKEx ADT6aOG4nH7bFICqRXfl a1E4xWK4R6ChywMdaf3j g3hzLYEtXOeuM00r vCFba2Z3SHEsrCT1IKJu jQadDbKvpZ26Kqo+PGNv rUefa3TrDetwx2vtn3na lKi7YqJcEPDpfqDl dScdQFQ7g3XzIy38K97b IHdpZHRoPSIzMCUiIHZh tRqwqk9jfA6rLw7+PGNv mSI2kYK3kI9xQcOz OlD8BRsxR143AeGwrFLh Itkhu4cgn8vfuLd6YsDq WVZtvpActVasHHN8e6Xy Qc87B2RlkPpmq0Rr Mdc8cl94eAEsq3Z2rFB8 E8UuXMKlqvrlqBDiqTpn CI7rTJUluumnHYLgoT7s GTIjN4r4HrUlUjK0 MTatM1OsmpJ9ESDpoTOv UMMljEVZsC7rdgaaa2mc shrgOxMqBNWbJHz0HEd5 LWFsaWduOiBsZWZ0 HsV1YHF0eQXlyX1voLxj dcbzcP0qBci+KWq3p6qn aVEwJI2iyXW5PY75KF81 kFXag6G9iWG5I7Wm LZLjjtrmzzndsHZ1KOHj NTSxvJ75Sv9xaHelEd4e VBYlREI0LZMvgYUmL5Md uO8nCyHwXJSxDLOk N6QnuHWrEPeyV990RIpr RcK6VVGybmYfW8EcFWWp sNdlYkJ6i5S9Cn9FNF58 RK65FM13bGRgf2Z8 yPB3L2VcLSLtjotyukep dII8YARbMZFlzD87Ye4f eEwsOt1cSLOlTUA9BPVt pQAuY3SkmP3wZfAe IHEvRGOiT3HbyUGyQQfs T915ZIrwVyR7LRYwrlAr P7PrOKUapAkaVpG3f3M9 Su0BEq30GN17HG72 kDEgo5T4aKF7G1FlRZFy sxggaspnhDU7CMRjOTYd kC50Qe1tlRxpFq0pWTSl UZG5ACTfdZGkY6Xk fI5xYqQoKSJrTZJmZ7Pm gGGvFWkeH052GFtsDeF6 LHLekkUhF0PpWGVipDgi RuH1e3A4Jp6MQTut gni7G4IaFciolDE+PC90 GTCeBG16zGDghRBbg3vo nQb8YaUuDTGfIOL5pUti WPohy7EcBJJeI17z bGFw (more content not included)... Normal [facility] Consent for Treatmenton 08-22 Consent for Treatment [id number] #1.00CD:127 Normal [facility] Discharge Instructionson Discharge Instructions [id number] #1.00CD:127 Normal [facility] ED Clinical Summaryon 2021 ED Clinical Summary [place] [id number] ED Clinical Summary Person Information Name: MEENA LUCERO Gayathri/[facility] Age: 26 Years : 1995 Sex: Female Language: Angolan PCP: Charli LOPEZ Marital Status: Single Visit [...] 09/03/2022 15:51:51 09/03/2022 15:51:51 09/03/2022 15:51:51 ADDRESS: [address] [place] [id number] PHYS DOC NOTES: MEDICAL INFORMATION: Prescriptions Given: New Medications [facility] [employer], [address], [place] [id number], [phone] ondansetron (Zofran ODT 4 mg Tab-Dis) 1 Tablets By Mouth 3 times a day. Refills: 0. Medications to Continue with No Changes Other Medications multivitamin, ( Multivitamins with Vitamin B Complex, Vitamin C, Minerals and L-Methylfolate oral capsule) 1 Capsules By Mouth every day. Refills: 0. PATIENT EDUCATION INFORMATION: Instructions: Nausea and Vomiting, Adult Follow up: With: Address: When: [place] [address] Business (1) In 3 days 09/06/2022 DIAGNOSIS: Nausea & vomiting Normal [facility] ED Note-Physicianon 09-03-20 ED [...] TID, # 15 tab(s), Refills(s) 0, Pharmacy: [facility], 170, cm, 09/03/22 14:31:00 EDT, Height/Length [...] CARLSON In 3 days 09/06/2022 EDT [address] [place] [address] Business (1) Additional Instructions: Patient Education Nausea and Vomiting, Adult Attestation Patient seen and evaluated by the physician assistant mechanic. Attending physician was present in the emergency department and supervised care. This visit was performed by both the physician and an APC. I performed all aspects of the MDM as documented. This report was transcribed using voice recognition software. Every effort was made to ensure accuracy, however, inadvertently computerized silk screener mistakes may be present. Appropriate healthcare PPE [...] (09/03/22 14:49:0 (more content not included)... Normal [facility] Comment on above: Result [...] added (diluted fruit juice). ? Eat bland, wdzq-wm-wdapql foods in small amounts as you are able. These foods include bananas, applesauce, rice, lean meats, toast, and crackers. ? Avoid fluids that contain a lot of sugar or caffeine, such as energy drinks, sports drinks, and soda. ? Avoid alcohol. ? Avoid spicy or fatty foods. General instructions ? Take nqsn-aax-rdkjmva and prescription medicines only as told by your health care provider. ? Drink enough fluid to keep your urine pale yellow. ? Wash your hands often using soap and water. If soap and water are not available, use hand reinforcing steel erector. ? Make sure that all people in [...] and drinking to prevent dehydration. ? Take xdha-pjm-dbygcso and prescription medicines only as told by [...] Reviewed: 04/18/2019 Elsevier Patient Education ? 2019 [employer] Normal [facility] ED Patient Summaryon 022 ED Patient Summary [place] [id number] Patient Discharge Instructions Person Information Name: MEENA LCUERO Age: 26 Years Arrival Date: 09/03/2022 14:27:10 Discharge Diagnosis: Nausea & vomiting Primary Care Physician: Charli LOPEZ Provider Information Primary Provider: Evan Moyer DO Advanced Intensive Care Specialist:Neil Meza PA-C The exam and treatment you received in the Emergency Department were for an urgent problem and are not intended as complete care. It is important that you follow up with a doctor, nurse practitioner, or physician?s assistant mechanic for ongoing care. If your symptoms become worse or you do not improve as expected and you are unable to reach your usual health care provider, you should return to the Emergency Department. We are available 24 hours a day. MEENA LUCERO has been given the following list of patient education materials, prescriptions and follow-up instructions: Follow-up Instructions: With: Address: When: Charli CARLSNO [address] [place] [address] Business (1) In 3 days 09/06/2022 In the event that this physician does not participate in your insurance network, please consult with your insurance company to find a nearby participating provider. Patient Education Materials: Nausea and Vomiting, Adult A MESSAGE TO ALL PATIENTS REGARDING OPIOIDS PRESCRIPTION OPIOIDS: WHAT YOU NEED TO KNOW Prescription opioids can be used to help relieve uhsgkali-it-irkyuz pain and are often prescribed following a [...] be struggling with addiction, tell your health livestock caretaker and ask for guidance or call [facility]S National Helpline at 3-234-531-OHWK. v Source: US Dep (more content not included)... Normal [facility] U BetaHcg Qualon 09-03-2022 HCG.beta subunit (U) [Moles/Vol] Negative Normal [facility] Comment on above: Performed By: #### 2 [id number], [id number], [id number] ####[facility] [address] [place] [address] UA With Cult Reflexon 2021 Bacteria LM Ql (Urine sed) 2+ /HPF Abnormal Trace [facility] Comment on above: Performed By: #### 2 [id number], [id number], [id number] ####[facility] [address] [place] [address] Bilirubin Ql (U) Negative Normal Negative [facility] Comment on above: Performed By: #### 2 [id number], [id number], [id number] ####[facility] [address] [place] [address] Clarity (U) CLEAR Normal Clear [facility] Comment on above: Performed By: #### 2 [id number], [id number], [id number] ####[facility] [address] [place] [address] Color (U) YELLOW Normal Yellow [facility] Comment on above: Performed By: #### 2 [id number], [id number], [id number] ####[facility] [address] [place] [address] Epithelial cells.squamous LM.HPF (Urine sed) [#/Area] 5-8 Normal 0-2 [facility] Comment on above: Performed By: #### 2 [id number], [id number], [id number] ####[facility] [address] [place] [address] Glucose Test strip (U) [Mass/Vol] Negative Normal Negative [facility] Comment on above: Performed By: #### 2 [id number], [id number], [id number] ####[facility] [address] [place] [address] Hemoglobin Ql (U) Negative Normal Negative [facility] Comment on above: Performed By: #### 2 [id number], [id number], [id number] ####[facility] [address] [place] [address] Ketones (U) [Mass/Vol] Negative Normal Negative [facility] Comment on above: Performed By: #### 2 [id number], [id number], [id number] ####[address] [address] [place].plasma/Lith ium.RBC (Bld) [Mass ratio] 0-3 Normal 0-3 [facility] Comment on above: Performed By: #### 2 [id number], [id number], [id number] ####[place] [id number] Mucus Ql (Urine sed) 1+ Normal [facility] Comment on above: Performed By: #### 2 [id number], [id number], [id number] ####[place] [address] Nitrite Ql (U) Negative Normal Negative [facility] Comment on above: Performed By: #### 2 [id number], [id number], [id number] ####[place] [address] pH (U) 5.5 [pH] Invalid Interpretation Code 5.0-9.0 [facility] Comment on above: Performed By: #### 2 [id number], [id number], [id number] ####[address] [address] Protein (U) [Mass/Vol] Negative Normal Negative [facility] Comment on above: Performed By: #### 2 [id number], [id number], [id number] ####[address] [address] Specific gravity (U) [Rel density] >=1.030 Invalid Interpretation Code 1.005-1.030 [facility] Comment on above: Performed By: #### 2 [id number], [id number], [id number] ####[address] [address] Type of Urine collection method Clean Catch Normal [facility] Comment on above: Performed By: #### 2 [id number], [id number], [id number] ####[facility] [address] [place] [address] Urobilinogen Qn (U) 0.2 {Elver'U}/dL Normal 0.0-1.0 [facility] Comment on above: Performed By: #### 2 [id number], [id number], [id number] ####[facility] [address] [place] [address] WBC Auto Ql (U) Negative Normal Negative [facility] Comment on above: Performed By: #### 2 [id number], [id number], [id number] ####[facility] [address] [place] [address] WBC LM.HPF (Urine sed) [#/Area] 0-5 Normal 0-5 [facility] Comment on above: Performed By: #### 2 [id number], [id number] ####[facility] [id number] [place] [address] XR WRIST LEFT (MIN 3 VIEWS)o n 06-19-2022 Normal left wrist. [facility] EXAM: XR WRIST LEFT (MIN 3 VIEWS) HISTORY: M25.532. 26-year-old female, left wrist pain. COMPARISON: None. TECHNIQUE: Three views left wrist. FINDINGS: The radiocarpal joint and wrist are normal. Normal scapholunate distance. No erosion or chondrocalcinosis. [facility] Mauro Anton Jr., MD - 06/19/2022 EXAM: XR WRIST LEFT (MIN 3 VIEWS) HISTORY: M25.532. 26-year-old female, left wrist pain. COMPARISON: None. TECHNIQUE: Three views left wrist. FINDINGS: The radiocarpal joint and wrist are normal. Normal scapholunate distance. No erosion or chondrocalcinosis. IMPRESSION: Normal left wrist. 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 pain has been constant for about 1 week now. History of Present Illness Pt presents today to [facility]. Previous pt of [facility] in [place]. Concerned today about left wrist pain which started about 1 yr ago; pain has worsened over the last week. 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 Carries everything in her left hand. Right handed. Pain location: medial martinez hand, radiating to wrist Pain description: shooting Pain rated: 2/10, 7/10 with certain movements. 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 Negative Tinels and DeQuervians. + Phalens. Composite Science Teacher strength equal. Neurologic: Cranial nerves II-XII grossly intact. Skin: [place], warm and dry. No rashes, ulcerations, or suspicious lesions noted on visible/exposed skin. Mental status: alert and oriented x 3. Normal mood and affect, normal behavior for age. Assessment/Plan 1. Carpal tunnel syndrome on left (G56.02: Carpal tunnel syndrome, left upper limb) Discussed options. Will treat with Ibuprofen, dosing and s/e. reviewed. Declines PT. Will refer to specialist shraddha Alvarez, advised she will be called to set up appt. Continue to wear wrist brace. Avoid heavy lifting or exacerbating activities. Ordered: ibuprofen, 800 mg = 1 tab(s), Oral, TID, Take with food. Not to exceed 3200 mg/day, X 10 day(s), # 30 tab(s), Refills(s) 1, Pharmacy: [id number], 170, cm, 06/01/22 12:55:00 EDT, Height/Length Dosing, 91.3, kg, 06/01/22 12:55:00 EDT, Weight Dosing [facility] External Ambulatory Referral 2. BMI 31.0-31.9,adult (Z68.31: Body mass index [BMI] 31.0-31.9, adult) The standard range for ages 18 and older is >=18.5 and < 25 kg/m2. Your BMI today was above this range, this falls in the obese category and there are medical benefits to weight loss. We can offer counselling, referral, and/or medical support in addressing this problem. Visit Handseeing Information.gov for useful information to help make better [...] unspecified fo (more content not included)... Normal [facility] Comment on above: Result [...] height. This can be done either in [place] ([place] or metric measurements. Note that charts are available to help you find your BMI quickly and easily without having to do these calculations yourself. To calculate your BMI in [place] ([place] measurements, your health care provider will: [...] problems. ? BMI can be measured using Angolan measurements or metric measurements. ? To interpret [...] 07/20/2005 Document Revised: 10/21/2018 Document Reviewed: 09/21/2018 [employer] Patient Education ? 2019 [employer]. Orthopedics Carpal Tunnel Syndrome Carpal tunnel syndrome [...] Having a job, such as being a genetic counsellor or a parimutuel cashier, that requires you [...] and midd (more content not included)... Normal [facility] Physician Referralon 022 Physician Referral [id number] Normal [facility] Vital Signs Date Time Vital Sign Value Performing Clinician Ayad lozoya 01-16-2025 08:41-0500 Body mass index (BMI) [Ratio] 38.07 kg/m2 Gary Robison DO Work Phone: [facility] 01-16-2025 08:41-0500 Body weight 103.78 kg Gary Enriqueta DO Work Phone: [facility] 01-16-2025 08:41-0500 Diastolic blood pressure 70 mm[Hg] Gary Enriqueta DO Work Phone: [facility] 01-16-2025 08:41-0500 Systolic blood pressure 110 mm[Hg] Gary Enriqueta DO Work Phone: [facility] 12-19-2024 10:19-0500 Body mass index (BMI) [Ratio] 37.44 kg/m2 Gary Enriqueta DO Work Phone: [facility] 12-19-2024 10:19-0500 Body weight 102.06 kg Gary Enriqueta DO Work Phone: [facility] 12-19-2024 10:19-0500 Diastolic blood pressure 76 mm[Hg] Gary Enriqueta DO Work Phone: [facility] 12-19-2024 10:19-0500 Systolic blood pressure 122 mm[Hg] Gary Enriqueta DO Work Phone: [facility] 11-20-2024 09:42-0500 Body mass index (BMI) [Ratio] 36.61 kg/m2 Genevieve MARIA Work Phone: [facility] 11-20-2024 09:42-0500 Body weight 99.79 kg Genevieve MARIA Work Phone: [facility] 11-20-2024 09:42-0500 Diastolic blood pressure 74 mm[Hg] Genevieve MARIA Work Phone: [facility] 11-20-2024 09:42-0500 Systolic blood pressure 120 mm[Hg] Genevieve MARIA Work Phone: [facility] 10-17-2024 13:10-0500 Body mass index (BMI) [Ratio] 35.35 kg/m2 Gary Enriqueta DO Work Phone: [facility] 10-17-2024 13:10-0500 Body weight 96.34 kg Gary Enriqueta DO Work Phone: [facility] 10-17-2024 13:10-0500 Diastolic blood pressure 70 mm[Hg] Gary Enriqueta DO Work Phone: [facility] 10-17-2024 13:10-0500 Systolic blood pressure 120 mm[Hg] Gary Enriqueta DO Work Phone: [facility] 09-18-2024 11:15-0400 Body mass index (BMI) [Ratio] 35.2 kg/m2 Gary Enriqueta DO Work Phone: [facility] 09-18-2024 11:15-0400 Body weight 95.94 kg Gary Enriqueta DO Work Phone: [facility] 09-18-2024 11:15-0400 Diastolic blood pressure 74 mm[Hg] Gary Enriqueta DO Work Phone: [facility] 09-18-2024 11:15-0400 Systolic blood pressure 122 mm[Hg] Gary Enriqueta DO Work Phone: [facility] 08-18-2024 10:28-0400 Body mass index (BMI) [Ratio] 34.95 kg/m2 [facility] 08-18-2024 10:28-0400 Body weight 95.25 kg [facility] 01-10-2023 14:29-0500 Body height 165.1 cm Fei Canales MD Work Phone: N-1-1 [facility] [employer] 01-10-2023 14:29-0500 Body mass index (BMI) [Ratio] 34.35 kg/m2 Fei Canales MD Work Phone: N[facility]1 [facility] 01-10-2023 14:29-0500 Body temperature 98.49 [degF] Fei Canales MD Work Phone: N-1-1 [facility] 01-10-2023 14:29-0500 Body weight 93.62 kg Fei Canales MD Work Phone: [employer] 01-10-2023 14:29-0500 Diastolic blood pressure 79 mm[Hg] Fei Canales MD Work Phone: [employer] 01-10-2023 14:29-0500 Heart rate 75 /min Fei Canales MD Work Phone: N-1-1 [facility] [employer] 01-10-2023 14:29-0500 Respiratory rate 16 /min Fei Canales MD Work Phone: N-1[facility]1 [facility] 01-10-2023 14:29-0500 SaO2% (BldA) [Mass fraction] 99 % Fei Canales MD Work Phone: [employer] 01-10-2023 14:29-0500 Systolic blood pressure 140 mm[Hg] Fei Canales MD Work Phone: [email or web address] 12-08-2022 11:51-0500 Blood Pressure Location Garfieldsarah DAVIS [facility] 12-08-2022 11:51-0500 Body temperature 98.24 [degF] Christsherieer BROWN [facility] 12-08-2022 11:51-0500 Diastolic blood pressure 78 mm[Hg] Garfielder BROWN [facility] 12-08-2022 11:51-0500 Heart rate 84 /min Garfielder BROWN [facility] 12-08-2022 11:51-0500 Respiratory rate 16 /min Christopher BROWN [facility] 12-08-2022 11:51-0500 SaO2% (BldA) [Mass fraction] 100 % Keyon BROWN [facility] 12-08-2022 11:51-0500 Systolic blood pressure 114 mm[Hg] Cordellopher BROWN [facility] 12-04-2022 16:32-0500 Body mass index (BMI) [Ratio] 33.66 kg/m2 Jason Tracy MD Work Phone: [facility] [employer] 12-04-2022 16:32-0500 Body temperature 98.49 [degF] Jason Tracy MD Work Phone: [facility] 12-04-2022 16:32-0500 Body weight 91.76 kg Jason Tracy MD Work Phone: [facility] 12-04-2022 16:32-0500 Diastolic blood pressure 75 mm[Hg] Jason Tracy MD Work Phone: [facility] [employer] 12-04-2022 16:32-0500 Heart rate 91 /min Jason Tracy MD Work Phone: [facility] 12-04-2022 16:32-0500 Respiratory rate 16 /min Jason Tracy MD Work Phone: [facility] 12-04-2022 16:32-0500 SaO2% (BldA) [Mass fraction] 99 % Jason Tracy MD Work Phone: [facility] 12-04-2022 16:32-0500 Systolic blood pressure 123 mm[Hg] Jason Tracy MD Work Phone: [facility] 06-01-2022 12:50-0400 Blood Pressure Location Meena Carl [facility] 06-01-2022 12:50-0400 Body temperature 96.98 [degF] Meena Carl [facility] 06-01-2022 12:50-0400 Diastolic blood pressure 60 mm[Hg] Meena Carl [facility] 06-01-2022 12:50-0400 Heart rate 88 /min Meena Carl [facility] 06-01-2022 12:50-0400 SaO2% (BldA) [Mass fraction] 97 % Meena Carl [facility] 06-01-2022 12:50-0400 Systolic blood pressure 122 mm[Hg] Meena Carl [facility] 09-14-2021 10:15-0400 Body mass index (BMI) [Ratio] 31.62 kg/m2 Keyon Wilkinson MD Work Phone: [employer] Work Phone: 09-14-2021 10:15-0400 Body weight 86.18 kg Keyon Wilkinson MD Work Phone: [employer] Work Phone: 09-14-2021 10:14-0400 Body height 165.1 cm Keyon Wilkinson MD Work Phone: [employer] Work Phone: 09-14-2021 10:14-0400 Body temperature 98.2 [degF] Keyon Wilkinson MD Work Phone: [employer] Work Phone: 09-14-2021 10:14-0400 Diastolic blood pressure 93 mm[Hg] Keyon Wilkinson MD Work Phone: [employer] Work Phone: 09-14-2021 10:14-0400 Heart rate 91 /min Keyon Wilkinson MD Work Phone: [employer] Work Phone: 09-14-2021 10:14-0400 Respiratory rate 20 /min Keyon Wilkinson MD Work Phone: [employer] Work Phone: 09-14-2021 10:14-0400 SaO2% (BldA) [Mass fraction] 96 % Keyon Wilkinson MD Work Phone: [employer] Work Phone: 09-14-2021 10:14-0400 Systolic blood pressure 131 mm[Hg] Keyon Wilkinson MD Work Phone: [employer] Phone: Encounters Encounter Date Encounter Type Care Provider Facility Start: 02-13-2025 End: 02-13-2025 ambulatory GARY ENRIQUETA Not Available Start: 01-30-2025 End: 01-30-2025 ambulatory GENEVIEVE CALDERON Not Available Start: 01-29-2025 End: 01-29-2025 ambulatory JOHN PARTIDA [facility] Start: 01-29-2025 End: 01-29-2025 Subsequent hospital visit by physician John Partida DO Work Phone: [facility] Comment on above: Arrived Start: 01-22-2025 End: 01-22-2025 Clinisync Result Encounter Gary Enriqueta DO Work Phone: [facility] Unsolicited Start: 01-22-2025 End: 01-22-2025 Clinisync Result Encounter Gary Enriqueta DO Work Phone: [facility] Unsolicited Start: 01-16-2025 End: 01-16-2025 Bamboo flowsheet Gary Enriqueta DO Work Phone: [facility] Start: 01-16-2025 End: 01-17-2025 Bamboo flowsheet Gary Enriqueta DO Work Phone: [facility] Start: 01-16-2025 End: 01-17-2025 Clinisync Result Encounter Gary Enriqueta DO Work Phone: [facility] Unsolicited Start: 01-16-2025 End: 01-16-2025 Office outpatient visit 15 minutes Gary Barcenaso DO Work Phone: [facility] Comment on above: 28 weeks gestation o f ; Third trimester ; Heartburn during in third trimester Start: 01-16-2025 End: 01-16-2025 ambulatory GARY BARCENASO Not Available Start: 01-15-2025 End: 01-15-2025 [facility] Start: 01-15-2025 End: 01-15-2025 Subsequent hospital visit by physician John Partida DO Work Phone: [facility] Comment on above: Arrived Start: 01-12-2025 End: 01-12-2025 [facility] Start: 01-12-2025 End: 01-12-2025 Subsequent hospital visit by physician John Partida DO Work Phone: [facility] Comment on above: Arrived Start: 01-10-2025 End: 01-10-2025 [facility] Start: 01-10-2025 End: 01-10-2025 Subsequent hospital visit by physician John Partida DO Work Phone: [facility] Comment on above: Arrived Start: 01-05-2025 End: 01-05-2025 [facility] Start: 01-05-2025 End: 01-05-2025 Subsequent hospital visit by physician John Partida DO Work Phone: [facility] Comment on above: Arrived Start: 01-02-2025 End: 01-02-2025 [facility] Start: 01-02-2025 End: 01-02-2025 Subsequent hospital visit by physician John Partida DO Work Phone: [facility] Comment on above: Arrived Start: 12-29-2024 End: 12-29-2024 [facility] Start: 12-29-2024 End: 12-29-2024 Subsequent hospital visit by physician John Partida DO Work Phone: [facility] Comment on above: Arrived Start: 12-27-2024 End: 12-27-2024 [facility] Start: 12-27-2024 End: 12-27-2024 Subsequent hospital visit by physician John Partida DO Work Phone: [facility] Comment on above: Arrived Start: 12-25-2024 End: 12-25-2024 Clinisync Result Encounter Gary Robison DO Work Phone: [facility] Unsolicited Start: 12-25-2024 End: 12-25-2024 Clinisync Result Encounter Gary Enriquetarafael LAMB Work Phone: [facility] Unsolicited Start: 12-22-2024 End: 12-22-2024 [facility] Start: 12-22-2024 End: 12-22-2024 Subsequent hospital visit by physician John Partida DO Work Phone: [facility] Comment on above: Arrived Start: 12-20-2024 End: 12-20-2024 [facility] Start: 12-20-2024 End: 12-20-2024 Subsequent hospital visit [...] antepartum Start: 12-19-2024 End: 12-19-2024 ambulatory GARY BARCENASO Not Available Start: 12-15-2024 End: 12-15-2024 [facility] Start: 12-13-2024 End: 12-13-2024 [facility] Start: 12-13-2024 End: 12-13-2024 Subsequent hospital visit by physician John Partida DO Work Phone: [facility] Comment on above: Arrived Start: 12-06-2024 End: 12-06-2024 [facility] Start: 12-06-2024 End: 12-06-2024 Subsequent hospital visit by physician John Partida DO Work Phone: [facility] Comment on above: Arrived Start: 11-20-2024 End: 11-20-2024 Bamboo flowsheet Genevieve MARIA Work Phone: [facility] Start: 11-20-2024 End: 11-20-2024 [...] 10-17-2024 End: 10-29-2024 Clinisync Result Encounter Gary Robison DO Work Phone: [facility] Unsolicited Start: 10-17-2024 End: 10-18-2024 External Result Encounter Gary Robison DO Work Phone: [facility] Unsolicited Start: 10-17-2024 End: 10-29-2024 External Result Encounter Gary Robison DO Work Phone: [facility] Unsolicited Start: 10-17-2024 End: 10-17-2024 Office outpatient visit 15 minutes Gary Robison DO Work Phone: [facility] Comment on above: Screening, , for anatomic survey; 15 weeks gestation of ; Second trimester ; Encounter for gynecological examination without abnormal finding; Vaginal discharge; STD exposure; Nausea and vomiting during Start: 10-17-2024 End: 10-17-2024 Patient encounter status Gary Robison DO Work Phone: [facility] Start: 10-12-2024 End: 10-12-2024 [facility] Start: 10-12-2024 End: 10-12-2024 Subsequent hospital visit by physician John Partida DO Work Phone: [facility] Comment on above: Arrived Start: 10-10-2024 End: 10-10-2024 ambulatory [facility] Start: 10-10-2024 End: 10-10-2024 Subsequent hospital visit by physician John Partida DO Work Phone: [facility] Comment on above: Arrived Start: 10-04-2024 End: 10-04-2024 Subsequent hospital visit by physician John Partida DO Work Phone: [facility] Start: 10-04-2024 [facility] Start: 09-18-2024 End: 09-18-2024 Office outpatient [...] Start: 08-07-2024 End: 08-07-2024 ambulatory GARYMariya AGUILAR [facility] Start: 08-07-2024 End: 08-07-2024 Subsequent hospital visit by physician Óscar Nassar DNP Work Phone: [facility] Start: 08-02-2024 End: 08-02-2024 Clinisync Result Encounter Gary Enriqueta DO Work Phone: [facility] Unsolicited Start: 08-02-2024 End: 08-02-2024 Clinisync Result Encounter Gary Enriqueta DO Work Phone: [facility] Unsolicited Start: 08-02-2024 End: 08-02-2024 ambulatory ÓSCAR NASSAR [facility] Start: 07-31-2024 End: 07-31-2024 Clinisync Result Encounter Gary Enriqueta DO Work Phone: [facility] Unsolicited Start: 07-31-2024 End: 07-31-2024 Clinisync Result Encounter Gary Enriqueta DO Work Phone: [facility] Unsolicited Start: 07-31-2024 End: 07-31-2024 [facility] Start: 07-31-2024 End: 07-31-2024 Subsequent hospital visit by physician Óscar Nassar DNP Work Phone: [facility] Start: 07-29-2024 End: 07-29-2024 Clinisync Result Encounter Gary Enriqueta DO Work Phone: [facility] Unsolicited Start: 07-29-2024 End: 07-29-2024 Clinisync Result Encounter Gary Enriqueta DO Work Phone: [facility] Unsolicited Start: 07-29-2024 End: 07-29-2024 [facility] Start: 07-27-2024 End: 07-27-2024 Clinisync Result Encounter Gary Enriqueta DO Work Phone: [facility] Unsolicited Start: 07-27-2024 End: 07-27-2024 Clinisync Result Encounter Gary Enriqueta DO Work Phone: [facility] Unsolicited Start: 07-27-2024 End: 07-27-2024 ambulatory [facility] Start: 07-27-2024 End: 07-27-2024 Subsequent hospital visit by physician John Partida DO Work Phone: [facility] Comment on above: Arrived Start: 07-25-2024 End: 07-25-2024 [facility] Start: 07-21-2024 End: 07-21-2024 [facility] Start: 07-19-2024 End: 07-19-2024 [facility] Start: 07-13-2024 End: 07-13-2024 Subsequent hospital visit by physician John Partida DO Work Phone: [facility] Comment on above: Arrived Start: 07-13-2024 End: 07-13-2024 [facility] Start: 07-06-2024 End: 07-06-2024 Subsequent hospital visit by physician John Partida DO Work Phone: [facility] Start: 06-29-2024 End: 06-29-2024 ambulatory [facility] Start: 06-29-2024 End: 06-29-2024 Subsequent hospital visit by physician John Partida DO Work Phone: [facility] Comment on above: Arrived Start: 06-26-2024 End: 06-26-2024 [facility] Start: 06-22-2024 End: 06-22-2024 [facility] Start: 06-20-2024 End: 06-20-2024 [facility] Start: 06-16-2024 End: 06-16-2024 [facility] Start: 06-14-2024 End: 06-14-2024 [facility] Start: 06-08-2024 End: 06-08-2024 ambulatory [facility] Josh NASSAR [facility] Start: 06-08-2024 End: 06-08-2024 ambulatory [facility] Start: 05-22-2024 End: 05-24-2024 [facility] Start: 05-22-2024 End: 05-24-2024 Subsequent hospital visit by physician Óscar Nassar DNP Work Phone: [facility] Start: 03-06-2024 End: 03-06-2024 ambulatory GARY ROBISON Not Available Start: 03-04-2024 End: 03-04-2024 [facility] Start: 03-04-2024 Emergency [facility] Start: 04-09-[address] NONE LISTED REQUEST Facility: Start: 01-29-2023 End: 01-31-2023 Subsequent hospital visit by physician [facility] Additional Xray At [facility] Comment on above: Other closed fractur e of proximal end of right fibula with routine healing, subsequent encounter Start: 01-29-2023 End: 01-31-2023 Subsequent hospital visit by physician Keyon Davis MD Work Phone: [facility] Start: 01-10-2023 End: 01-10-2023 Emergency department patient visit Fei Canales MD Work Phone: [facility] ED Comment on above: Injury of right ankl e, initial encounter (Primary Dx) Start: 12-08-2022 End: 12-09-2022 ambulatory Keyon DAVIS Facility:[facility] Start: 12-08-2022 End: 12-08-2022 Patient encounter procedure Keyon DAVIS [facility] Start: 12-04-2022 End: 12-04-2022 Emergency department patient visit Jason Tracy MD Work Phone: [facility] ED Comment on above: Viral illness (Prima ry Dx) Start: 09-03-2022 End: 09-03-2022 Emergency department patient visit Evan Moyer Facility:[facility] Start: 06-19-2022 End: 06-21-2022 Subsequent hospital visit by physician [facility] Additional Xray At [facility] Comment on above: Left wrist pain Start: 06-01-2022 End: 06-02-2022 ambulatory ASSISTANT MANAGER QUALITY MANAGEMENT Meena Carl Facility:[facility] Start: 06-01-2022 End: 06-01-2022 Patient encounter procedure Meena Carl [facility] Start: 05-28-2022 ambulatory ASSISTANT MANAGER QUALITY MANAGEMENT Meena Siddhartha Lion lity:[facility] Start: 09-14-2021 End: 09-14-2021 Emergency department patient visit Keyon Wilkinson MD Work Phone: [facility] ED Comment on above: Subacute bronchitis (Primary Dx) Procedures Date Procedure Procedure Detail Performing Clinician Start: 01-22-2025 ALL PLATELET COUNT Core y Enriqueta DO Work Phone: Start: 01-16-2025 US OB GROWTH Gary Fazi [...] Phone: Start: 08-07-2024 ALL HCG, QUANTITATIVE C oremariya Barcenaso DO Work Phone: Start: 08-07-2024 Gonadotropin chorion ic quantitative Gary Robison MD Work Phone: Start: 08-02-2024 ALL HCG, QUANTITATIVE C orey Enriqueta DO Work Phone: Start: 07-31-2024 ALL HCG, QUANTITATIVE C orey Enriqueta DO Work Phone: Start: 07-31-2024 Gonadotropin chorion ic quantitative Gary Robison MD Work Phone: Start: 07-29-2024 ALL HCG, QUANTITATIVE C marco Barcenaso DO Work Phone: Start: 07-27-2024 ALL HCG SERUM,QUALITATIVE Gary Barcenaso DO Work Phone: Start: 05-26-2023 Cytp cerv/vag auto t hin layer prep mnl screen Gary Enriqueta DO Work Phone: Start: 01-29-2023 Radex ankle complete minimum 3 views Israel Rehman MD Work Phone: Start: 01-10-2023 Radex ankle complete minimum 3 views Fei Canales MD Work Phone: Start: 12-04-2022 Iaadiadoo influenza Deniz Trayc MD Work Phone: Start: 12-04-2022 COVID-19, RAPID Jason Tracy MD Work Phone: Start: 06-19-2022 Radex wrist complete minimum 3 views Israel Rehman MD Work Phone: Start: 11-22-2014 Cholecystectomy Meena Aguilarell Tonsillectomy Meena Siddhartha Tonsils and adenoids postoperative education Meena Aguilarell Plan of Treatment Date Care Activity Detail Author Start: 2069 Respiratory Syncytia l Virus (RSV) or age 60 yrs+ (1 - 1-dose 75+ series) Respiratory Syncytial Virus (RSV) or age 60 yrs+ (1 - 1-dose 75+ series) [facility] Start: 2054 Respiratory Syncytia l Virus (RSV) or age 60 yrs+ (1 - 1-dose 60+ series) Respiratory Syncytial Virus (RSV) or age 60 yrs+ (1 - 1-dose 60+ series) [facility] Start: 05-26-2028 Screening for malign ant neoplasm of cervix HPV/Cotest [facility] Start: 10-17-2027 Screening for malign ant neoplasm of cervix [facility] Start: 03-14-2025 Depression Screen Depression Screen [facility] Start: 02-14-2025 End: 02-14-2025 Patient encounter procedure 02/14/2025 9:00 AM EDT Appointment [facility] [address] [place] [address] John Partida, DO [address] [place] [address] Clara Castrejon, PT *[employer] 15 of 30 Sacral Pain, [facility] Comment on above: *[employer] 15 of 30 Sacral Pain, Start: 01-30-2025 End: 01-30-2025 Patient encounter procedure 01/30/2025 8:50 AM EDT Routine [facility] [address] [place] [id number] Genevieve Calderon PA [address] [place] [address] [facility] Start: 01-29-2025 End: 01-29-2025 Patient encounter procedure 01/29/2025 9:00 AM EDT Appointment [facility] [address] [place] [address] John Partida, DO [address] [place] [address] Clara Castrejon, PT *[employer] 15 of 30 Sacral Pain, [facility] Comment on above: *[employer] 15 of 30 Sacral Pain, Start: 01-18-2025 End: 01-18-2025 Patient encounter procedure 01/18/2025 8:00 AM EST Appointment [facility] [address] [place] [address] John Partida, DO [address] [place] [address] Clara Castrejon, PT *[employer] 14 of 30 Sacral Pain, [facility] Comment on above: *[employer] 14 of 30 Sacral Pain, Start: 01-16-2025 End: 01-16-2025 Patient encounter procedure [facility] Comment on above: Arrived Start: 01-16-2025 End: 01-16-2025 Professional / ancillary services management 01/16/2025 8:00 AM EST Ancillary Procedure [facility] [address] [facility] [place] [phone] [facility] Start: 01-15-2025 End: 01-15-2025 Patient encounter procedure 01/15/2025 9:00 AM EST Appointment [facility] [address] [place] [address] John Partida, DO [address] [place] [address] Clara Castrejon, PT *[employer]ource 13 of 30 [...] EST Hospital Encounter [facility] [address] [place] [address] John Partida, DO [address] [place] [address] Lauryn Edwards [facility] Start: 01-02-2025 End: 01-02-2025 Patient encounter procedure 01/02/2025 8:00 AM EST Appointment [facility] [address] [place] [address] John Partida, DO [address] [place] [address] Clara Castrejon, PT *[employer] 8 of 30 Sacral Pain, [facility] Comment on above: *[employer]aresource 8 of 30 Sacral Pain, Start: 12-29-2024 End: 12-29-2024 Patient encounter procedure 12/29/2024 11:15 AM EST Appointment [facility] [address] [place] [address] John Partida DO [address] [place] [address] Clara Castrejon, PT *[employer]aresource 7 of 30 Sacral Pain, [facility] Comment on above: *[employer]aresource 7 of 30 Sacral Pain, Start: 12-27-2024 End: 12-27-2024 Patient encounter procedure 12/27/2024 9:00 AM EST Appointment [facility] [address] [place] [address] John Partida, DO [address] [facility] [place] [address] Austen Puga PTA *[facility]aresource 6 of 30 Sacral Pain, [facility] Comment on above: *[facility]aresource 6 of 30 Sacral Pain, Start: 12-22-2024 End: 12-22-2024 Patient encounter procedure 12/22/2024 8:00 AM EST Appointment [facility] [address] [place] [address] John Partida, DO [address] [facility] [place] [place] [address] Austen Puga PTA *[facility] 5 of 30 Sacral Pain, [facility] Comment on above: *[employer]aresource 5 of 30 Sacral Pain, Start: 12-20-2024 End: 12-20-2024 Patient encounter procedure 12/20/2024 9:00 AM EST Appointment [facility] [address] [place] [address] John Partida, DO [address] [place] [address] Clara Castrejon, PT *[employer] 4 of 30 Sacral Pain, [facility] Comment on above: *[employer]aresource 4 of 30 Sacral Pain, Start: 12-19-2024 End: 12-19-2024 Patient encounter procedure 12/19/2024 9:50 AM EST Routine [facility] [address] [place] [address] Gary Robison, DO [address] [facility] [place] [address] [facility] Start: 12-15-2024 End: 12-15-2024 Patient encounter procedure 12/15/2024 8:15 AM EST Appointment [facility] [address] [place] [address] John Partida, DO [address] [facility] [place] [address] Clara Castrejon, PT *[employer]ource 3 of 30 Sacral Pain, [facility] Comment on above: *Caresource 3 of 30 Sacral Pain, Start: 12-13-2024 End: 12-13-2024 Patient encounter procedure 12/13/2024 9:45 AM EST Appointment [facility] [address] [place] [address] John Partida, DO [address] [place] [address] Trinity Browning *Caresource 2 of 30 Sacral Pain, [facility] Comment on above: *[employer]aresource 2 of 30 Sacral Pain, Start: 2024 Screening for malign ant neoplasm of cervix [facility] Start: 11-20-2024 End: 11-20-2025 CBC panel - Blood by Automated count CBC Lab Routine Diabetes mellitus screening Expected: 11/20/2024 (Approximate), Expires: 11/20/2025 [facility] Work Phone: Comment on above: Expected: 11/20/2024 [...] AM EST Routine [facility] [address] [facility] [phone] Genevieve Calderon PA [address] [facility] [place] [address] [facility] Start: 11-20-2024 End: 11-20-2024 Professional / ancillary services management 11/20/2024 8:00 AM EST Ancillary Procedure [facility] [address] [facility] [phone] [facility] Start: 10-17-2024 End: 01-17-2025 Alpha fetoprotein, maternal Alpha fetoprotein, maternal Lab Routine 15 weeks gestation of Expected: 10/17/2024 (Approximate), Expires: 01/17/2025 [facility] Work Phone: Comment on above: [...] AM EST Routine [facility] [address] [facility] [id number] Gary Robison DO [address] [facility] [place] [address] [facility] Start: 10-17-2024 End: 10-17-2024 Patient encounter procedure 10/17/2024 8:15 AM EST Appointment [facility] [address] [place] [address] John Partida, DO [address] [place] [place] [address] Trinity Browning 16 of 30 Sacral Pain, [facility] Comment on above: 16 of 30 Sacral Pain , Start: 10-12-2024 End: 10-12-2024 Patient encounter procedure 10/12/2024 8:00 AM EST Appointment [facility] [address] [place] [address] John Partida, [address] [place] [address] Clara Castrejon, PT 15 of 30 Sacral Pain, [facility] Comment on above: 15 of 30 Sacral Pain , Start: 10-10-2024 End: 10-10-2024 Patient encounter procedure 10/10/2024 9:30 AM EST Appointment [facility] [address] [place] [address] John Partida, DO [address] [place] [address] Clara Castrejon, PT 14 of 30 Sacral Pain, [facility] Comment on above: 14 of 30 Sacral Pain , Start: 09-18-2024 End: 09-18-2024 Patient encounter procedure 09/18/2024 10:40 AM EDT Routine [facility] [address] [facility] [place] [phone] Gary Robison DO [address] [place] [address] [facility] Start: 08-18-2024 End: 08-18-2025 ABO/Rh ABO/Rh Lab Routine Missed menses , unspecified gestational age Expected: 08/18/2024 (Approximate), Expires: 08/18/2025 [facility] Comment on above: Expected: 08/18/2024 [...] Missed menses Expected: 08/18/2024 (Approximate), Expires: 08/18/2025 [facility] Comment on above: Expected: 08/18/2024 (Approximate), Expires: 08/18/2025 Start: 08-18-2024 End: 08-18-2024 ambulatory 08/18/2024 9:30 AM EDT Initial [facility] [address] [facility] [place] [phone] [facility] Start: 08-18-2024 End: 08-18-2024 Professional / ancillary services management 08/18/2024 9:00 AM EDT Ancillary Procedure [facility] [address] [place] [phone] [facility] Start: 07-23-2024 COVID-19 Vaccine () COVID-19 Vaccine () [facility] Start: 07-23-2024 COVID-19 Vaccine ( season) COVID-19 Vaccine ( season) [facility] Start: 07-23-2024 Influenza vaccination Influenza Vacc ine (#1) [facility] Start: 07-19-2024 End: 07-19-2024 Patient encounter procedure 07/19/2024 8:00 AM EDT Appointment [facility] Physical Therapy [address] [place] [address] John Partida, [address] [place] [address] Asia Mix, PT [address] [place] [address] [facility] Physical Therapy Start: 07-13-2024 End: 07-13-2024 Patient encounter procedure [facility] Therapy Start: 07-06-2024 End: 07-06-2024 Patient encounter procedure 07/06/2024 9:00 AM EDT Appointment [facility] Physical Therapy [address] [place] [address] John Partida, [address] [place] [address] Asia Mix, PT [address] [place] [address] [facility] Physical Therapy Start: 06-22-2024 Influenza vaccination Flu vaccine (# 1) [facility] Start: 07-23-2023 COVID-19 Vaccine ( season) COVID-19 Vaccine ( season) [facility] Start: 07-23-2022 Influenza vaccination Flu vaccine (# 1) [facility] Start: 06-22-2022 Influenza vaccination Flu vaccine (# 1) [facility] Start: 07-23-2021 Influenza vaccination Flu vaccine (# 1) [facility] Work Phone: Start: 08-02-2017 DTaP/Tdap/Td vaccine (2 - Td or Tdap) DTaP/Tdap/Td vaccine (2 - Td or Tdap) [facility] Start: 2015 Screening for malign ant neoplasm of cervix Pap smear [facility] Start: 2013 DTaP/Tdap/Td vaccine (1 - Tdap) DTaP/Tdap/Td vaccine (1 - Tdap) [facility] Start: 2013 Hepatitis B vaccine (1 of 3 - 19+ 3-dose series) Hepatitis B vaccine (1 of 3 - 19+ 3-dose series) [facility] Start: 2012 Hepatitis C screening Hepatitis C sc reen [facility] Start: 2009 HIV screening [facility] screen [facility] Start: 2006 COVID-19 Vaccine (1) COVID-19 Vaccin e (1) [facility] Phone: Start: 2006 Depression Screen Depression Screen [facility] Start: 2005 HPV vaccine (1 - 2-d ose series) HPV vaccine (1 - 2-dose series) [facility] Phone: Start: 1998 Varicella vaccine (2 of 2 - 2-dose childhood series) Varicella vaccine (2 of 2 - 2-dose childhood series) [facility] Start: 1995 Varicella vaccine (1 of 2 - 2-dose childhood series) Varicella vaccine (1 of 2 - 2-dose childhood series) [facility] Phone: Start: 05-30-1995 COVID-19 Vaccine (#1) COVID-19 Vacci ne (#1) [facility] Start: 1994 Hepatitis B vaccine (1 of 3 - 3-dose series) Hepatitis B vaccine (1 of 3 - 3-dose series) [facility] Start: 1994 Hepatitis C screening Hepatitis C sc reen [facility] Phone: Bacteria identified in Urine by Culture Urine culture Microbiology Routine Missed menses Ordered: 08/18/2024 [facility] Comment on above: Ordered: 08/18/2024 CBC W Auto Different ial panel - Blood CBC and differential Lab Routine Missed menses , unspecified gestational age Ordered: 08/18/2024 [facility] Comment on above: Ordered: 08/18/2024 CHLAMYDIA TRACHOMATI S (GENITO/STI) CHLAMYDIA TRACHOMATIS (GENITO/STI) Lab Routine Vaginal discharge STD exposure Ordered: 10/17/2024 [facility] Comment on above: Ordered: 10/17/2024 Cytology Cervical or vaginal smear or scraping study Pap Smear Pathology and Cytology Routine Encounter for gynecological examination without abnormal finding Ordered: 10/17/2024 [facility] Comment on above: Ordered: 10/17/2024 Hemoglobin A1c/Hemoglobin.total in Blood Hemoglobin A1c Lab Routine Missed menses , unspecified gestational age Ordered: 08/18/2024 [facility] Comment on above: Ordered: 08/18/2024 Hepatitis B virus surface Ag [Presence] in Serum or Plasma by Immunoassay Hepatitis B surface antigen Lab Routine Missed menses , unspecified gestational age Ordered: 08/18/2024 [facility] Comment on above: Ordered: 08/18/2024 Hepatitis C virus Ab [Presence] in Serum or Plasma by Immunoassay Hepatitis C antibody Lab Routine Missed menses , unspecified gestational age Ordered: 08/18/2024 [facility] Comment on above: Ordered: 08/18/2024 HIV-1/HIV-2 antigen/antibody combination immunoassay HIV-1 and HIV-2 antibodies Lab Routine Missed menses , unspecified gestational age Ordered: 08/18/2024 [facility] Comment on above: Ordered: 08/18/2024 Neisseria gonorrhoea e DNA [Presence] in Unspecified specimen by WADE with probe detection Neisseria gonorrhea DNA probe, direct Lab Routine Vaginal discharge STD exposure Ordered: 10/17/2024 [facility] Comment on above: Ordered: 10/17/2024 Platelets [#/volume] in Blood Platelet count Lab Routine Low platelet count (CMS/HCC) Ordered: 12/19/2024 [facility] Work Phone: Comment on above: Ordered: 12/19/2024 Reagin Ab [Presence] in Serum by RPR RPR Lab Routine Missed menses , unspecified gestational age Ordered: 08/18/2024 [facility] Comment on above: Ordered: 08/18/2024 Rubella antibody, IgG Rubella an tibody, IgG Lab Routine Missed menses , unspecified gestational age Ordered: 08/18/2024 [facility] Comment on above: Ordered: 08/18/2024 SURESWAB(R) ADVANCED VAGINITIS PLUS, TMA SURESWAB(R) ADVANCED VAGINITIS PLUS, TMA Pathology and Cytology Routine Vaginal discharge STD exposure Ordered: 10/17/2024 [facility] Comment on above: Ordered: 10/17/2024 Immunizations Immunization Date Immunization Notes Care Provider Jaci masterson 02-16-2008 Hep A, unspecified formulation Meena Carl [facility] 08-02-2007 Hep A, unspecified formulation Meena Carl [facility] 08-02-2007 meningococcal ACWY vaccine, unspecified formulation Meena Siddhartha [facility] 08-02-2007 tetanus toxoid, reduced diphtheria toxoid, and acellular pertussis vaccine, adsorbed Meena Siddhartha [facility] 08-19-2000 DTaP, unspecified formulation Meena Carl [facility] 08-19-2000 measles, mumps and rubella virus vaccine Meena Carl [facility] 10-10-1997 varicella virus vaccine Meena Siddharhta [facility] 03-09-1996 DTaP, unspecified formulation Meena Carl [facility] 03-09-1996 Hib, unspecified formulation Meena Carl [facility] 03-09-1996 measles, mumps and rubella virus vaccine Meena Carl [facility] 06-11-1995 DTP-Hib Meena Carl [facility] 06-11-1995 hepatitis B vaccine, pediatric or pediatric/adolescent dosage Meena Carl [facility] 04-05-1995 DTP-Hib Meena Carl [facility] 02-01-1995 DTP-Hib Meena Carl [facility] 01-04-1995 hepatitis B vaccine, pediatric or pediatric/adolescent dosage Meena Carl [facility] 1994 hepatitis B vaccine, pediatric or pediatric/adolescent dosage Meena Carl [facility] NEGATED: Highlighted row has not occurred!12-08-2022 influenza virus vaccine, unspecified formulation Keyon DAVIS [facility] [place] NEGATED: Highlighted row has not occurred!12-08-2022 SARS-CoV-2 mRNA (tozinameran 5y-11y) vaccine Keyon DAVIS [facility] [place] Payers Date Payer Category Payer Medicaid [facility] A[facility] [employer] [place] [id number] 2022-Present [address] [place] [address] [id number] 2022 [facility] Health [facility] [id number] 2014 Unknown [id number] 1.2.840.474755.1.13.239.2. 7.3.051558.315 1994 Unknown [id number] 2.16.840.1.875248.3.579.2. 727 1994 Unknown [id number] 2.16.840.1.535277.3.579.2. 727 1994 Unknown [id number] 2.16.840.1.622563.3.579.2. 727 1994 Unknown [id number] 2.16.840.1.963851.3.579.2. 727 1994 Unknown [id number] 2.16.840.1.720768.3.579.2. 593 1994 Unknown [id number] 2.16.840.1.859329.3.579.2. 1259 1994 Unknown [id number] 2.16.840.1.386898.3.579.2. 1259 1994 Unknown [id number] 2.16.840.1.428261.3.579.2. 1258 1994 Unknown [id number] 2.16.840.1.465246.3.579.2. 1258 1994 Unknown [id number] 2.16.840.1.240820.3.579.2. 1258 1994 Unknown [id number] 2.16.840.1.760777.3.579.2. 1258 1994 Unknown [id number] 2.16.840.1.786870.3.579.2. 1258 1994 Unknown [id number] 2.16.840.1.223474.3.579.2. 1258 1994 Unknown [id number] 2.16.840.1.595976.3.579.2. 174 1994 Unknown [id number] 2.16.840.1.350687.3.579.2. 174 1994 Unknown [id number] 2.16.840.1.110546.3.579.2. 174 1994 Unknown [id number] 2.16.840.1.337882.3.579.2. 174 1994 Unknown [id number] 2.16.840.1.774771.3.579.2. 174 1994 Unknown [id number] 2.16.840.1.473888.3.579.2. 174 1994 Unknown [id number] 2.16.840.1.311391.3.579.2. 174 1994 Unknown [id number] 2.16.840.1.675361.3.579.2. 174 1994 Unknown [id number] 2.16.840.1.261373.3.579.2. 174 1994 Unknown [id number] 2.16.840.1.239783.3.579.2. 174 1994 Unknown [id number] 2.16.840.1.737775.3.579.2. 174 1994 Unknown [id number] 2.16.840.1.254608.3.579.2. 174 1994 Unknown [id number] 2.16.840.1.994741.3.579.2. 174 1994 Unknown [id number] 2.16.840.1.484232.3.579.2. 174 1994 Unknown [id number] 2.16.840.1.116500.3.579.2. 174 1994 Unknown [id number] 2.16.840.1.630320.3.579.2. 174 1994 Unknown [id number] 2.16.840.1.189887.3.579.2. 174 1994 Unknown [id number] 2.16.840.1.369947.3.579.2. 174 1994 Unknown [id number] 2.16.840.1.783416.3.579.2. 174 1994 Unknown [id number] 2.16.840.1.020135.3.579.2. 174 1994 Unknown [id number] 2.16.840.1.331153.3.579.2. 174 1994 Unknown [id number] 2.16.840.1.014734.3.579.2. 174 1994 Unknown [id number] 2.16.840.1.317046.3.579.2. 174 1994 Unknown [id number] 2.16.840.1.391642.3.579.2. 174 1994 Unknown [id number] 2.16.840.1.463546.3.579.2. 174 1994 Unknown [id number] 2.16.840.1.847450.3.579.2. 174 1994 Unknown [id number] 2.16.840.1.050084.3.579.2. 174 1994 Unknown [id number] 2.16.840.1.041357.3.579.2. 174 1994 Unknown [id number] 2.16.840.1.627808.3.579.2. 174 1994 Unknown [id number] 2.16.840.1.570892.3.579.2. 174 1994 Unknown [id number] 2.16.840.1.940686.3.579.2. 174 1994 Unknown [id number] 2.16.840.1.180883.3.579.2. 174 1994 Unknown [id number] 2.16.840.1.494747.3.579.2. 174 1994 Unknown [id number] 2.16.840.1.569496.3.579.2. 174 1994 Unknown [id number] 2.16.840.1.577416.3.579.2. 174 1994 Unknown [id number] 2.16.840.1.691613.3.579.2. 174 1994 Unknown [id number] 2.16.840.1.168431.3.579.2. 174 1994 Unknown [id number] 2.16.840.1.397590.3.579.2. 174 1994 Unknown [id number] 2.16.840.1.723779.3.579.2. 174 1994 Unknown [id number] 2.16.840.1.155295.3.579.2. 174 1959 Unknown [id number] 1.2.840.606621.1.13.239.2. 7.3.543380.315 Social History Date Type Detail Facility Start: 09-14-2021 End: 03-14-2024 Tobacco smoking status [facility] Never smoker [facility] Phone: Start: 09-14-2021 End: 03-14-2024 Tobacco use and exposure Never used [facility] Start: 09-14-2021 End: 08-21-2024 Alcohol intake Current non-drinker of alcohol (finding) [facility] Work Phone: Start: 1995 Sex Assigned At Not on file [facility] Work Phone: Start: 11-24-2022 End: 01-10-2023 Exposure to SARS-CoV-2 (event) Not sure [facility] Tobacco smoking status Never [facility] Start: 07-19-2023 End: 03-14-2024 Sex Assigned At Female [facility] Start: 12-04-2022 End: 01-10-2023 History SDOH Alcohol Frequency 1 [facility] Work Phone: Start: 07-19-2023 End: 03-14-2024 History of Social function [facility] How often to you hav e a drink containing alcohol? Never [facility] (I/We) worried wheth er (my/our) food would run out before (I/we) got money to buy more. Never true [facility] At any time in the p ast 12 months, were you homeless or living in fdc [including now]? No [facility] Start: 1995 Sex Assigned At Female [facility] Start: 07-19-2023 Gender identity Identifies as female gender (finding) [facility] Start: 07-19-2023 Sexual orientation Heterosexual (finding) [facility] Start: 07-16-2024 [facility] Start: 09-18-2024 End: 01-16-2025 Alcoholic beverage intake Lifetime non-drinker (finding) [facility] Start: 01-03-2013 Sex Female (finding) [facility] Functional Status Date Assessment Result Facility 12-08-2022 Functional Status N/A [facility] [place] 07-11-2022 Functional Status N/A [facility] Clinical Notes 06-01-2022 to 01-29-2025 Clara Castrejon, PT - 01/29/2025 9:00 AM Chata Olea LPN - 01/16/2025 8:40 AM Clara Wahl, PT - 01/15/2025 9:00 AM Clara Wahl, PT - 01/12/2025 8:15 AM ESTDischarge Instructions Note Date & Type Note Facility 01-29-2025 History of Present illness Narrative Images from the original note were not included. [facility] Daily Note Date: 01/29/2025 Patient Name: Meena Lucero : 1995 (29 y.o.) Referring Provider (secondary): Dr. Partida Diagnosis: R buttock pain, sacral pain Treatment Diagnosis: back pain, SI pain Onset Date: 09/28/24 (Referral) PT Insurance Information: [facility] Total # of Visits Approved: 16 Per Physician Order Total # of Visits to Date: 15 Plan of Care/Certification Expiration Date: 01/19/25 Pre-Treatment Pain: 5/10 Assessment Assessment: Pain 5/10 low back and into R buttock. Completed manual therapy per Doc Flow. Patient to continue with HEP and walk outddors for ex as able. One visit remaining, recheck Oswestry next visit. Plan Continue with current plan of care Exercises/Modalities/Manual: See DocFlow Sheet Education: Goals (Total # of Visits to Date: 15) Short Term Goals Time Frame for Short [...] pelvic stability-Met STG Goal 3 Status:: Met Correction Goals Time Frame for [employer]der [employer] Goals : 16 [employer] Goal 1: Improve functional mobility with Oswestry score <15/50 (from 22/50) Correction Goal 2: Decrease R SI pain 4/10 at worst x3 days Treatment Tolerance: Treatment Tolerance: Tolerated treatment well. Post Treatment Pain: 4/10 Time In: 9:00 Time Out : 9:33 Timed Code Treatment Minutes: 33 Minutes Total Treatment Time: 33 Minutes Clara Castrejon, PT Date: 01/29/2025 documented in this encounter [facility] 01-16-2025 History of Present illness Narrative Reason [...] nursing note reviewed. Exam conducted with a sanitary engineering teacher present. Vitals: Estimated body mass index is [...] Gary Robison DO documented in this encounter [facility] 01-15-2025 History of Present illness Narrative Images from the original note were not included. [facility] Out[facility] Physical Therapy Daily Note Date: 01/15/2025 Patient Name: Meena Lucero : 1995 (29 y.o.) Referring Provider (secondary): Dr. Partida Diagnosis: R buttock pain, sacral pain Treatment Diagnosis: back pain, SI pain Onset Date: 09/28/24 (Referral) PT Insurance Information: [facility] Total # of Visits Approved: 16 Per [...] pelvic stability-Met STG Goal 3 Status:: Met Welder Setter Electron Beam Machine Goals Time Frame for Correction Goals : 16 Correction Goal 1: Improve functional mobility with Oswestry score <15/50 (from 22/50) Welder Setter Electron Beam Machine Goal 2: Decrease R SI pain 4/10 at worst x3 days Treatment Tolerance: Treatment Tolerance: Tolerated treatment well. Post Treatment Pain: 5/10 Time In: 9:05 Time Out : 9:35 Timed Code Treatment Minutes: 30 Minutes Total Treatment Time: 30 Minutes Clara Castrejon, PT Date: 01/15/2025 documented in this encounter [facility] 01-12-2025 History of Present illness Narrative Images from the original note were not included. [facility] Out[facility] Physical Therapy Daily Note Date: 01/12/2025 Patient Name: Meena Lucero : 1995 (29 y.o.) Referring Provider (secondary): Dr. Partida Diagnosis: R buttock pain, sacral pain Treatment Diagnosis: back pain, SI pain Onset Date: 09/28/24 (Referral) PT Insurance Information: [facility] Total # of Visits Approved: 16 Per [...] pelvic stability-Met STG Goal 3 Status:: Met Welder Setter Electron Beam Machine Goals Time Frame for Welder Setter Electron Beam Machine Goals : 16 Welder Setter Electron Beam Machine Goal 1: Improve functional mobility with Oswestry score <15/50 (from 22/50) Correction Goal 2: Decrease R SI pain 4/10 at worst x3 days Treatment Tolerance: Treatment Tolerance: Tolerated treatment well. Post Treatment Pain: 3/10 Time In: 8:13 Time Out : 8:54 Timed Code Treatment Minutes: 41 Minutes Total Treatment Time: 41 Minutes Clara Castrejon, PT Date: 01/12/2025 documented in this encounter [facility] 01-10-2025 History of Present illness Narrative Images from the original note were not included. [facility] Out[facility] Physical Therapy Daily Note Date: 01/10/2025 [id number] 1995 (29 y.o.) Referring Provider (secondary): Dr. Partida Diagnosis: R buttock pain, sacral pain Treatment Diagnosis: back pain, SI pain Onset Date: 09/28/24 (Referral) PT Insurance Information: [facility] Total # of Visits Approved: 16 Per [...] pelvic stability-Met STG Goal 3 Status:: Met Correction Goals Time Frame for Correction Goals [...] PTA Date: 01/10/2025 documented in this encounter [facility] 01-05-2025 History of Present illness Narrative Images from the original note were not included. [facility] Out[facility] Physical Therapy Daily Note Date: 01/05/2025 Patient Name: Meena uLcero : 1995 (29 y.o.) Referring Provider (secondary): Dr. Partida Diagnosis: R buttock pain, sacral pain Treatment Diagnosis: back pain, SI pain Onset Date: 09/28/24 (Referral) PT Insurance Information: [facility] Total # of Visits Approved: 16 Per [...] pelvic stability-Met STG Goal 3 Status:: Met Welder Setter Electron Beam Machine Goals Time Frame for Welder Setter Electron Beam Machine Goals : 16 Welder Setter Electron Beam Machine Goal 1: Improve functional mobility with Oswestry score <15/50 (from 22/50) Welder Setter Electron Beam Machine Goal 2: Decrease R SI pain 4/10 at worst x3 days Treatment Tolerance: Treatment Tolerance: Tolerated treatment well. Post Treatment Pain: 5/10 Time In: 0802 Time Out: 0838 Timed Code Treatment Minutes: 36 Minutes Total Treatment Time: 36 Minutes Austen Puga PTA Date: 01/05/2025 documented in this encounter [facility] 01-02-2025 History of Present illness Narrative Images from the original note were not included. [facility] Out[facility] Physical Therapy Daily Note Date: 01/02/2025 Patient Name: Meena Lucero : 1995 (29 y.o.) Referring Provider (secondary): Dr. Partida Diagnosis: R buttock pain, sacral pain Treatment Diagnosis: back pain, SI pain Onset Date: 09/28/24 (Referral) PT Insurance Information: [facility] Total # of Visits Approved: 16 Per [...] pelvic stability-Met STG Goal 3 Status:: Met Welder Setter Electron Beam Machine Goals Time Frame for Welder Setter Electron Beam Machine Goals : 16 Welder Setter Electron Beam Machine Goal 1: Improve functional mobility with Oswestry score <15/50 (from 22/50) Correction Goal 2: Decrease R SI pain 4/10 at worst x3 days Treatment Tolerance: Treatment Tolerance: Tolerated treatment well. Post Treatment Pain: 8/10 Time In: 1114 Time Out : 1152 Timed Code Treatment Minutes: 37 Minutes Total Treatment Time: 37 Minutes Lauryn Edwards,BEAN PICKER Date: 01/02/2025 documented in this encounter [facility] 12-29-2024 History of Present illness Narrative Images from the original note were not included. [facility] Out[facility] Physical Therapy Daily Note Date: 12/29/2024 Patient Name: Meena Lucero : 1995 (29 y.o.) Referring Provider (secondary): Dr. Partida Diagnosis: R buttock pain, sacral pain Treatment Diagnosis: back pain, SI pain Onset Date: 09/28/24 (Referral) PT Insurance Information: [facility] Total # of Visits Approved: 16 Per [...] pelvic stability-Met STG Goal 3 Status:: Met Correction Goals Time Frame for Welder Setter Electron Beam Machine Goals : 16 Welder Setter Electron Beam Machine Goal 1: Improve functional mobility with Oswestry score <15/50 (from 22/50) Welder Setter Electron Beam Machine Goal 2: Decrease R SI pain 4/10 at worst x3 days Treatment Tolerance: Treatment Tolerance: Tolerated treatment well. Post Treatment Pain: 4/10 Time In: 11;15 Time Out : 11:43 Timed Code Treatment Minutes: 28 Minutes Total Treatment Time: 28 Minutes Clara Castrejon PT Date: 12/29/2024 documented in this encounter [facility] 12-27-2024 History of Present illness Narrative Images from the original note were not included. [facility] Out[facility] Physical Therapy Daily Note Date: 12/27/2024 Patient Name: Meena Lucero : 1995 (29 y.o.) Referring Provider (secondary): Dr. Partida Diagnosis: R buttock pain, sacral pain Treatment Diagnosis: back pain, SI pain Onset Date: 09/28/24 (Referral) PT Insurance Information: [facility] Total # of Visits Approved: 16 Per [...] pelvic stability STG Goal 3 Status:: Met Correction Goals Time Frame for Correction Goals [...] Date: 12/27/2024 documented in this encounter [facility] 12-22-2024 History of Present illness Narrative Images from the original note were not included. [facility] Out[facility] Physical Therapy Daily Note Date: 12/22/2024 Patient Name: Meena Lucero : 1995 (29 y.o.) Referring Provider (secondary): Dr. Partida Diagnosis: R buttock pain, sacral pain Treatment Diagnosis: back pain, SI pain Onset Date: 09/28/24 (Referral) PT Insurance Information: [facility] Total # of Visits Approved: 16 Per [...] hip abd 4+/5 for improved pelvic stability Welder Setter Electron Beam Machine Goals Time Frame for Welder Setter Electron Beam Machine Goals : 16 Welder Setter Electron Beam Machine Goal 1: Improve functional mobility with Oswestry score <15/50 (from 22/50) Correction Goal 2: Decrease R SI pain 4/10 at worst x3 days Treatment Tolerance: Treatment Tolerance: Tolerated treatment well. Post Treatment Pain: 5-6/10 Time In: 0801 Time Out: 0836 Timed Code Treatment Minutes: 35 Minutes Total Treatment Time: 35 Minutes Austen Puga, VITA Date: 12/22/2024 documented in this encounter [facility] 12-20-2024 History of Present illness Narrative Images from the original note were not included. [facility] Out[facility] Physical Therapy Daily Note Date: 12/20/2024 Patient Name: Meena Lucero : 1995 (29 y.o.) Referring Provider (secondary): Dr. Partida Diagnosis: R buttock pain, sacral pain Treatment Diagnosis: back pain, SI pain Onset Date: 09/28/24 (Referral) PT Insurance Information: [facility] Total # of Visits Approved: 16 Per [...] hip abd 4+/5 for improved pelvic stability Welder Setter Electron Beam Machine Goals Time Frame for Correction Goals : 16 Welder Setter Electron Beam Machine Goal 1: Improve functional mobility with Oswestry score <15/50 (from 22/50) Welder Setter Electron Beam Machine Goal 2: Decrease R SI pain 4/10 at worst x3 days Treatment Tolerance: Treatment Tolerance: Tolerated treatment well. Post Treatment Pain: 6/10 Time In: 9;00 Time Out : 9:26 Timed Code Treatment Minutes: 26 Minutes Total Treatment Time: 26 Minutes Clara Castrejon, PT Date: 12/20/2024 documented in this encounter [facility] 12-19-2024 History of Present illness Narrative Reason [...] PO) Oral ALLERGIES Allergies Allergen Reactions Hydrocodone Russell Oil Hives Codeine Rash and Unknown Chest [...] nursing note reviewed. Exam conducted with a sanitary engineering teacher present. Vitals: Estimated body mass index is [...] tolerance, 1 hour 4. Low platelet count (CMS/[facility]) D69.6 Platelet count 5. Thrombocytopenia affecting , [...] Gary Robison DO documented in this encounter [facility] 12-13-2024 History of Present illness Narrative Images from the original note were not included. [facility] Out[facility] Physical Therapy Daily Note Date: 12/13/2024 [...] pelvic stability Correction Goals Time Frame for Welder Setter Electron Beam Machine Goals : 16 Welder Setter Electron Beam Machine Goal 1: Improve functional mobility with Oswestry score <15/50 (from 22/50) Welder Setter Electron Beam Machine Goal 2: Decrease R SI pain 4/10 at worst x3 days Treatment Tolerance: Treatment Tolerance: Tolerated treatment well. Post Treatment Pain: 6/10 Time In: 0945 Time Out: 1018 Timed Code Treatment Minutes: 33 Minutes Total Treatment Time: 33 Minutes Austen Puga, VITA Date: 12/13/2024 documented in this encounter [facility] 12-06-2024 History of Present illness Narrative Images from the original note were not included. [facility] Out[facility] Physical Therapy Daily Note Date: 12/06/2024 [...] hip abd 4+/5 for improved pelvic stability Welder Setter Electron Beam Machine Goals Time Frame for Correction Goals : 16 Correction Goal 1: Improve functional mobility with Oswestry score <15/50 (from 22/50) Welder Setter Electron Beam Machine Goal 2: Decrease R SI pain 4/10 at worst x3 days Treatment Tolerance: Treatment Tolerance: Tolerated treatment well. Post Treatment Pain: 6/10 Time In: 9:45 Time Out : 10:18 Timed Code Treatment Minutes: 33 Minutes Total Treatment Time: 33 Minutes Clara Castrejon, PT Date: 12/06/2024 Images from the original note were not included. [facility] Out[facility] Physical Therapy Progress Report Date: 12/06/2024 Patient: Meena Lucero : 1995 Referring Provider (secondary): Dr. Partida Diagnosis: R buttock pain, sacral pain Treatment Diagnosis: back pain, SI pain Onset Date: 09/28/24 (Referral) PT Insurance Information: [facility] Total # of Visits Approved: 16 Per [...] pelvic stability Correction Goals Time Frame for Welder Setter Electron Beam Machine Goals : 16 Welder Setter Electron Beam Machine Goal 1: Improve functional mobility with Oswestry score <15/50 (from 22/50) Correction Goal 2: Decrease R SI pain 4/10 at worst x3 days Clara Castrejon, PT Date: 12/06/2024 documented in this encounter [facility] 11-20-2024 History of Present illness Narrative Reason for Appointment: Patient ID: Meena uLcero is a 28 y.o. female who presents for Routine Visit Patient presents today for Return OB appointment. MEDICATIONS Current Outpatient Medications Medication Instructions metoclopramide (REGLAN) 10 mg, Oral, 4 times daily 27-1 MG tablet Every 24 hours MV-Min-Fe Fum-FA-DHA ( 1 PO) Oral promethazine (PHENERGAN) 12.5 mg, Oral, Every 6 hours PRN ALLERGIES Allergies Allergen Reactions Hydrocodone Russell Oil Hives Codeine Rash and Unknown Chest [...] of: CANDACE Avitia documented in this encounter [facility] 10-17-2024 History of Present illness Narrative Reason [...] hours PRN ALLERGIES Allergies Allergen Reactions Hydrocodone Russell Oil Hives Codeine Rash and Unknown Chest [...] nursing note reviewed. Exam conducted with a sanitary engineering teacher present. Vitals: Estimated body mass index is [...] Gary Robison DO documented in this encounter [facility] 10-17-2024 History of Present illness Narrative Occupational Therapy [facility] Date: 10/17/2024 Patient Name: Meena Lucero : 1995 Pt Cancelled Appt due to no reason for cancel [facility] Massimo Harris Date: 10/17/2024 documented in this encounter [facility] 10-12-2024 History of Present illness Narrative Images from the original note were not included. [facility] Out[facility] Physical Therapy Daily Note Date: 10/12/2024 [...] pelvic stability Correction Goals Time Frame for Welder Setter Electron Beam Machine Goals : 16 Correction Goal 1: Improve functional mobility with Oswestry score <15/50 (from 22/50) Correction Goal 2: Decrease R SI pain 4/10 at worst x3 days Post Treatment Pain: 4/10 Time In: 8:00 Time Out : 8:33 Timed Code Treatment Minutes: 33 Minutes Total Treatment Time: 33 Minutes Clara Castrejon, PT Date: 10/12/2024 documented in this encounter [facility] 10-04-2024 History of Present illness Narrative Physical Therapy [facility] Date: 10/04/2024 Patient Name: Meena Lucero : 1995 Pt Cancelled Appt due to therapist ill [facility] Harris Date: 10/04/2024 documented in this encounter [facility] 09-18-2024 History of Present illness [...] hours PRN ALLERGIES Allergies Allergen Reactions Hydrocodone Russell Oil Hives Codeine Rash and Unknown Chest [...] nursing note reviewed. Exam conducted with a sanitary engineering teacher present. Vitals: Estimated body mass index is [...] or undercooked meat, and stay away from [facility]. Patient has been consulted regarding any further [...] Gary Robison DO documented in this encounter [facility] 08-18-2024 History of Present illness Narrative Reason [...] Date CHOLECYSTECTOMY TONSILLECTOMY Allergies Allergen Reactions Hydrocodone Russell Oil Hives Codeine Rash and Unknown Chest [...] screen, urine; Future Nurse Note: Pt given Eugene 21 and advised to have labs done [...] Daxa Martinez MA documented in this encounter [facility] 07-27-2024 History of Present illness Narrative Images from the original note were not included. [facility] Out[facility] Physical Therapy Daily Note Date: 07/27/2024 [...] Goals Short Term Goal 1: STG= LTG Correction Goals Time Frame for Correction Goals : 16 visits Correction Goal 1: Decrease subjective SI/right gluteal pain to <3/10 with activity and transitional movements Post Treatment Pain: 5/10 Time In: 0910 Time Out : 0935 Timed Code Treatment Minutes: 25 Minutes Total Treatment Time: 25 Minutes Onel Davis, PT Date: 07/27/2024 documented in this encounter [facility] 07-06-2024 History of Present illness Narrative Images from the original note were not included. 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 [facility] Out[facility] Physical Therapy Daily Note Date: 06/29/2024 [...] strengthening for self-correction of pelvic asymetry- MET Correction Goals Time Frame for Welder Setter Electron Beam Machine Goals : 10 visits Correction Goal 1: Decrease subjective SI/right gluteal pain to <3/10 with activity and transitional movements Welder Setter Electron Beam Machine Goal 2: Upgrade HEP for pelvic stab ex Welder Setter Electron Beam Machine Goal 3: Maintain symetrical pelvic alignment for 5 consecutive days Post Treatment Pain: 2-3/10 Time In: 0915 Time Out : 0955 Timed Code Treatment Minutes: 35 Minutes Total Time: 40 Minutes ASIA MIX PT Date: 06/29/2024 documented in this encounter [facility] 01-10-2023 Hospital Discharge instructions Fei Canales MD - 01/10/2023 3:17 PM EST There was a possible concern for fracture of the fibula. Please follow-up with Dr. Rehman for further evaluation and be sure to use crutches and be nonweightbearing until then. The following attachments cannot be sent through Care Everywhere.Ankle Sprain (Angolan)documented in this encounter [facility] Work Phone: 12-08-2022 Hospital Discharge instructions [...] and water are not available, use hand reinforcing steel erector. Make sure that all people in your household wash their hands well and often. Take [id number] and prescription medicines only as told by [...] and water are not available, use hand reinforcing steel erector. This information is not intended to replace advice given to you by your health care provider. Make sure you discuss any questions you have with your health care provider. Document Released: 11/08/2006 Document Revised: 04/26/2020 Document Reviewed: 09/13/2019 Elsevier Patient Education 2020 [employer]. Follow Up Care 12/08/2022 09:17:52 With:Keyon DAVIS MD, FAM Address: When: only if needed [facility] Kim 12-04-2022 Hospital Discharge instructions Jason Tracy MD - 12/04/2022 4:33 PM EST Increase fluids at home. Take Zofran for any nausea. Try Imodium/loperamide for diarrhea. Call primary care doctor for close follow-up. Use Tylenol or Motrin to keep fever down. The following attachments cannot be sent through Care Everywhere.Viral Infections (Angolan)documented in this encounter [facility] Work Phone: 06-01-2022 Hospital Discharge instructions Patient [...] height. This can be done either in [place] ([place] or metric measurements. Note that charts are available to help you find your BMI quickly and easily without having to do these calculations yourself. To calculate your BMI in [place] ([place] measurements, your health care provider will: [...] medical problems. BMI can be measured using Angolan measurements or metric measurements. To interpret your [...] 07/20/2005 Document Revised: 10/21/2018 Document Reviewed: 09/21/2018 [employer] Patient Education 2020 [employer]. 06/01/2022 13:15:39 Carpal Tunnel Syndrome Carpal Tunnel [...] Having a job, such as being a genetic counsellor or a parimutuel cashier, that requires you [...] 3 times per day. General instructions Take byqn-mge-nurwezi and prescription medicines only as told by [...] 11/05/2001 Document Revised: 03/17/2019 Document Reviewed: 03/17/2019 [employer] Patient Education 2020 [employer]. Follow Up Care 05/28/2022 08:22:05 With:Meena Carl CNP Address: When: only if needed [facility] Evaluation + Plan note [facility] Evaluation note Diagnosis Subacute bronchitis- Primary Acute bronchitis documented in this encounter [employer] Phone: evaluation note* Diagnosis Left wrist pain Pain in joint, forearm documented in this encounter [employer] Phone: evaluation note* Diagnosis Viral illness- Primary Unspecified viral infection, in conditions classified elsewhere and of unspecified site documented in this encounter [facility] [employer] Phone: evaluation note* Diagnosis Injury of right ankle, initial encounter- Primary documented in this encounter [employer] Phone: evaluation note* Diagnosis Other closed fracture of proximal end of right fibula with routine healing, subsequent encounter documented in this encounter [employer] Phone: evaluation note* Diagnosis First trimester state, [...] for diabetes mellitus documented in this encounter [facility] HealthcareEvaluation note* Diagnosis Second trimester state, incidental 24 weeks gestation of Diabetes mellitus screening Screening for diabetes mellitus Low platelet count (CMS/HCC) Thrombocytopenia affecting , antepartum (CMS/HCC) 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 Summary Purpose Family History No [...] Care Team (unrecognized sect ion and content) Cmm Inspector Relationship Specialty Start Date End Date Keyon Davis MD [address] [place] [address] PCP - General Family Medicine 12/04/22 Cmm Inspector Relationship Specialty Start Date End Date Keyon Davis MD [address] [place] [address] PCP - General Family Medicine 12/04/22 Cmm Inspector Relationship Specialty Start Date End Date Keyon Davis MD [address] [address] PCP - General Family Medicine 12/04/22 Cmm Inspector Relationship Specialty Start Date End Date Óscar Nassar DNP [address], [place] [address] PCP - General Family Nurse Practitioner 03/14/24 Cmm Inspector Relationship Specialty Start Date End Date Óscar Nassar DNP [address] [place] [address] PCP - General Family Nurse Practitioner 03/14/24 Cmm Inspector Relationship Specialty Start Date End Date Óscar Nassar DNP [address] [place] [address] PCP - General Family Nurse Practitioner 03/14/24 Cmm Inspector Relationship Specialty Start Date End Date Óscar Nassar DNP [address] [place] [phone] PCP - General Family Nurse Practitioner 03/14/24 Cmm Inspector Relationship Specialty Start Date End Date Keyon Davis MD [address] [place], [place] [address]k[place]y [place] [phone] PCP - General 05/12/23 Gary Robison DO [facility] [place] [id number] PCP - [facility] 02/21/24 Cmm Inspector Relationship Specialty Start Date End Date Keyon Davis MD [address] [place], [place] [address]k[place]y [place] [phone] PCP - General 05/12/23 Gary Robison DO [facility] Leia Juarez, [facility] PCP - [facility] 02/21/24 Cmm Inspector Relationship Specialty Start Date End Date Óscar Nassar DNP [address] [place] [phone] PCP - General Family Nurse Practitioner 03/14/24 Cmm Inspector Relationship Specialty Start Date End Date Keyon Davis MD [address] [place], [place] [address]k[place]y [place] [phone] PCP - General 05/12/23 Gary Robison DO [facility] Leia Juarez, [place] [id number] PCP - [facility] 02/21/24 Cmm Inspector Relationship Specialty Start Date End Date Keyon Davis MD [address] [place] [phone] PCP - General 05/12/23 Gary Robison, [facility] [place] [address] PCP [facility] 02/21/24 Cmm Inspector Relationship Specialty Start Date End Date Keyon Davis MD [address] [place], [place] [address]k[place]y [place] [phone] PCP - General 05/12/23 Gary Robison, DO [facility] Leia Juarez, [facility]CP [facility] 02/21/24 Cmm Inspector Relationship Specialty Start Date End Date Keyon Davis MD [address] [place], [place] [address]k[place] [phone] PCP - General 05/12/23 Gary Robison, DO [facility] Leia Juarez, [facility] PCP [facility] 02/21/24 Cmm Inspector Relationship Specialty Start Date End Date Keyon Davis MD [facility] [place] [phone] PCP - General 05/12/23 Gary Robison, DO [facility] [place] [address] PCP [facility] 02/21/24 Cmm Inspector Relationship Specialty Start Date End Date Óscar Nassar DNP [address] [place] [address] PCP - General Family Nurse Practitioner 03/14/24 Cmm Inspector Relationship Specialty Start Date End Date Keyon Davis MD [address] [place] [phone] PCP - General 05/12/23 Gary Robison DO [facility] Leia Juarez, [facility] PCP - [facility] 02/21/24 Cmm Inspector Relationship Specialty Start Date End Date Keyon Davis MD [facility] [place] [phone] PCP - General 05/12/23 Gary Robison DO [facility] Leia Juarez, [facility] PCP - [facility] 02/21/24 Cmm Inspector Relationship Specialty Start Date End Date Óscar Nassar DNP [address] [place] [phone] PCP - General Family Nurse Practitioner 03/14/24 Cmm Inspector Relationship Specialty Start Date End Date Keyon Davis MD [facility] [place] [address] PCP - General 05/12/23 Gary Robison DO [facility] [place] [address] PCP - [facility] 02/21/24 Cmm Inspector Relationship Specialty Start Date End Date Keyon Davis MD [address] [place] [address] [place] [address] PCP - General 05/12/23 Gary Robison DO [address] [place] [address] [place] [address] PCP - [facility] 02/21/24 Cmm Inspector Relationship Specialty Start Date End Date Óscar Nassar DNP [address] [facility] [address] [place] [address] PCP - General Family Nurse Practitioner 03/14/24 INFORMATION SOURCE (unrecogn ized section and content) DATE CREATED AUTHOR 02/01/2023 [facility] DATE CREATED AUTHOR AUTHOR'S ORGANIZ ATION 04/01/2023 [facility] DATE CREATED AUTHOR AUTHOR'S ORGANIZ ATION 02/14/2025 [facility] DATE CREATED AUTHOR AUTHOR'S ORGANIZ ATION 02/15/2025 Kirsty charles FOR RECORDS PERTAINING TO PATIENTS [...] BE BASED ON THE PRIMARY CLINICAL RECORDS. [employer] provides no warranty or guarantee of the accuracy or completeness of information in this document.
[2025-02-16 08:53] VITALS: BP 112/71; PULSE 87
== END 2025-02-16 09:35 | disposition home or self-care (01) ==
LOC: FBCO 08:41 → FBC 08:44
PROVIDERS: Visit Provider Obstetrics & Gynecology
DX: O26.893 Other specified pregnancy related conditions, third trimester (principal)
CPT/HCPCS: 59025

== ENCOUNTER 2025-02-20 08:17 | Outpatient (OUT) | payer OTHER, SELFPAY ==
--- NOTE | 2025-02-20 08:21 | US_ITS ---
[facility] [place] [address] Patient Name: RUEL READ MRN: [id number] date: 1995 Sex: F Assigned Patient Location: [facility] Current Patient Location: Accession/Order Number: [id number] Exam Date: 02/20/2025 09:19 Report Date: 02/20/2025 09:20 At the request of: BEVERLY PINTO Procedure: US OB BPP w non-stress BIOPHYSICAL PROFILE: CLINICAL INFORMATION: Circumvallate placenta COMPARISON: 02/13/2025 There is a single live intrauterine gestation in cephalic presentation. The reported gestational age is 33 weeks 2 days. The heart rate [id number] beats per minute. FINDINGS: TONE: 1 or more episodes of activity extension and flexion of extremity or opening and closing of the hand [Y] 2/2 GROSS BODY MOVEMENTS: 3 or more discrete body or limb movements [Y] 2/2 BREATHING MOVEMENTS: 1 or more episodes of breathing lasting at least 30 seconds [Y] 2/2 MAXIMILIANO: A single deepest vertical pocket of amniotic fluid greater than 2 cm [Y] 2/2 MAXIMILIANO: 12.3 cm. This is in low-normal range. Total score: 8/8 US/US OB BPP w non-stress IMPRESSION: NORMAL BIOPHYSICAL PROFILE. Impression dictated by: Marlene Orellana M.D.02/20/2025 9:20 AM Dictation Location: [place] [address] Electronically authenticated by: [id number] Y Date: 02/20/2025 09:20
--- OUTSIDE RECORDS SUMMARY | 2025-02-20 08:25 | XMS_ITS | CCD ---
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 Name Role Phone Unavailable Primary Care Provider UnavailCharli Browne Primary Care Physician Keyon Davis MD Primary Care Provider ANTHONY [...] ROBISON Attending Unavailable ENRIQUETA, GARY Attending Unavailable GENEVIEVE CALDERON Attending Unavailable GARY ROBISON Attending Unavailable ENRIQUETAGARY WOODS Attending Unavailable ENRIQUETAGARY WOODS Attending Unavailable GENEVIEVE CALDERON Attending Unavailable JOHN PARTIDA Attending Unavailable JOHN PARTIDA Referring Unavailable CLINGMAN, ÓSCAR A Primary Care Unavailable JOHN PARTIDA Attending Unavailable JOHN PARTIDA Referring Unavailable CLINGMAN, ÓSCAR A Primary Care Unavailable JOHN PARTIDA Attending Unavailable CLINGMAN, ÓSCAR A Primary Care Unavailable JOHN PARTIDA Referring Unavailable KEYON DAVIS Primary Care Unavailable GARY ROBISON Referring Unavailable CLINGMAN, ÓSCAR A Primary Care Unavailable GARY ROBISON Referring Unavailable CLINGMAN, ÓSCAR A Primary Care Unavailable GARY ROBISON Referring GARY Dominguez Referring Unavailable CLINGMAN, ÓSCAR A Primary Care [...] ROBISON Referring Unavailable OLEJOHN CAIN Attending Unavailable ELENOLERJOHN J Referring Unavailable CLINGMAN, ÓSCAR A Primary Care Unavailable OLEANT, JOHN Dockery Attending Unavailable OLEWIJOHN GOODMAN J Referring Unavailable CLINGMAN, ÓSCAR A Primary Care Unavailable JOHN PARTIDA Attending Unavailable JOHN PARTIDA Referring Unavailable CLINGMAN, ÓSCAR A Primary Care Unavailable JOHN PARTIDA Attending Unavailable OLEWIBHAVIK GOODMANSHSHANICE Dockery Referring Unavailable CLINGMAN, ÓSCAR A Primary Care [...] / HYDROcodone Drug Allergy 7 Rash, Unknown [facility] (20 sources) Acetaminophen / oxyCODONE Drug Allergy 5 Rash, Unknown [facility] (20 sources) Codeine; Translations: [codeine] Drug Allergy 7 Rash, Cutaneous eruption (morphologic abnormality), Unknown [facility] (3 sources) Acetaminophen / HYDROcodone; Translations: [acetaminophen-hy drocodone] Drug Allergy [facility] (3 sources) Acetaminophen / oxyCODONE; Translations: [acetaminophen-ox ycodone] Drug Allergy Cutaneous eruption (morphologic abnormality) [facility] (1 source) Acetaminophen / HYDROcodone Drug Allergy [facility] (1 source) Acetaminophen / oxyCODONE Drug Allergy [facility] (1 source) Codeine Drug Allergy [facility] (20 sources) HYDROcodone Drug Allergy 3 [facility] (20 sources) orange allergenic extract Drug Allergy 5 [facility] Medications Current Medications Medication Drug Class(es) [...] extended release oral tablet (6 sources) Uncompetitive B-yagxso-W-aspartate Receptor Antagonist, Sigma-1 Agonist Start: 09-14-2021 take 1 tablet by mouth every twelve hours as needed for cough Dextromethorphan-g uaiFENesin 60-1200 MG TB12 Take 1 tablet by mouth every 12 hours as needed (COUGH CONGESTION) 28 tablet 0 09/14/2021 Active dextromethorphan hydrobromide 3 mg/ml / promethazine hydrochloride 1.25 mg/ml oral solution (6 sources) Phenothiazine, Uncompetitive Z-aczhyt-B-aspartate Receptor Antagonist, Sigma-1 Agonist Start: 05-31-2018 promethazine-dextr [...] day(s), # 30 tab(s), Refills(s) 1, Pharmacy: [facility], 170, cm, 06/01/22 12:55:00 EDT, Height/Length [...] omeprazole 20 mg delayed release oral capsule (20 sources) Proton Pump Inhibitor Start: 11-20-2024 End: [...] pantoprazole 40 mg delayed release oral tablet (7 sources) Proton Pump Inhibitor Start: 01-16-2025 End: [...] TID, # 15 tab(s), Refills(s) 0, Pharmacy: [facility], 170, cm, 09/03/22 14:31:00 EDT, Height/Length [...] related conditions, third trimester] 01-16-2025 Episodic Other complications of (2 sources) Excessive growth affecting management of mother; Translations: [Maternal care for excessive growth, unspecified trimester, not applicable or unspecified] 02-13-2025 Episodic Other connective tissue disease (3 sources) [...] Onset: 10-17-2024 09-18-2024 Episodic Residual codes; unclassified (2 sources) Gestation [...] [28 weeks gestation of ] 01-16-2025 Episodic Residual codes; unclassified (2 sources) Gestation period, 32 weeks; Translations: [32 weeks gestation of ] 02-13-2025 Episodic Spondylosis; intervertebral disc disorders; other back problems (3 sources) Sacrococcygeal disorders, not elsewhere classified; Translations: [Sacrococcygeal disorders, not elsewhere classified] Onset: 05-22-2024 Episodic Unclassified (2 sources) Non-smoker 06-01-2022 Viral infection (1 source) Viral disease; Translations: [Viral infection, unspecified] Episodic Past or Other Problems Problem Classification Problem Date Documented Da te Episodic/Chronic Residual codes; unclassified (20 sources) Patient encounter status; Translations: [Other specified health status] Onset: 06-01-2022 Episodic Residual codes; unclassified (20 sources) Gestation period, 15 weeks; Translations: [15 weeks gestation of ] Onset: 10-17-2024 10-17-2024 Episodic Unclassified (4 sources) Onset: 10-21-2012 Resolved: 11-22-2017 12-03-2017 NEGATED: Highlighted row has been ruled out!Unclassified (17 sources) No known active problems 05-22-2024 Results Test Name Value Interpretation Reference Range Facility Urinalysis macro (dipstick) panel (U)on 02-13-2025 Bilirubin, UA Negative Negative - 4(70) +++ mg/dL [facility] Blood, UA Negative Negative - 50 Darnell/mcL [facility] Clarity, UA Clear [facility] Color, UA Yellow [facility] Glucose, UA Negative Negative - 1999(110) ++++ mg/dL [facility] Interpretation and review of laboratory results Abnormal [facility] Ketones, UA Negative Negative - 160(16) ++++ mg/dL [facility] Leukocytes, UA Positive Negative - 500+++ Shona/mcL [facility] Comment on above: small Nitrite, UA Negative Negative - Positive [facility] pH, UA 6 5 - 9 [facility] Protein, UA Trace Negative - 1999(20) ++++ mg/dL [facility] Spec Grav, UA 1.025 1 - 1.03 [facility] Urobilinogen, UA 0.2 0.2 - 12 mg/dL [facility] ALL PLATELET COUNTon 025 TBH PLT 151 [facility] US OB PLACENTAon 01-17-[address] [address] Ultrasound Report Signed Patient: MEENA LUCERO MR#: [id number] : 1995 Acct:[id number] Age/Sex: 29 / F ADM Date: 01/16/25 Loc: US Attending Dr: Gary Robison D.O. Ordering Physician: Gary Robison D.O. Date of Service: 01/16/25 Procedure(s): US OB placenta Accession Number(s): [id number] cc: Gary Robison D.O.; Physician,Non-Staff [place] [address] Patient Name: MEENA LUCERO MRN: [id number] date: 1995 Sex: F Assigned Patient Location: Current Patient Location: [facility] Accession/Order Number: [id number] Exam Date: 01/16/2025 11:08 Report Date: 01/16/2025 [...] Marlene Orellana M.D.01/16/2025 11:19 AM Dictation Location: [place] [address] Electronically authenticated by: [id number] Y Date: 01/16/2025 11:19 Dictated By: Marlene Orellana M.D. Signed By: 01/17/25 1034 DD/ 1119 TD/TT: Market Development Executive: [facility] Radiology, Radiologist, - 01/17/2025 [place] [address] Ultrasound Report Signed Patient: MEENA LUCERO MR#: [id number] : 1995 Acct:[id number] Age/Sex: 29 / F ADM Date: 01/16/25 Loc: US Attending Dr: Gary Robison D.O. Ordering Physician: Gary Robison D.O. Date of Service: 01/16/25 Procedure(s): US OB placenta Accession Number(s): [id number] cc: Gary Robison D.O.; Physician,Non-Staff Del The [place] [id number] Patient Name: MEENA LUCERO MRN: [facility]:[id number] date: 1995 Sex: F Assigned Patient Location: Current Patient Location: [facility] Accession/Order Number: [id number] Exam Date: 01/16/2025 11:08 Report Date: 01/16/2025 [...] Marlene Orellana M.D.01/16/2025 11:19 AM Dictation Location: [place] [address] Electronically authenticated by: [id number] Y Date: 01/16/2025 11:19 Dictated By: Marlene Orellana M.D. Signed By: 01/17/25 1034 DD/ 1119 TD/TT: Market Development Executive: [facility] OB PLACENTAOrdered By: Ra duncan Radiology on 01-17-2025 [facility] [employer] Work Phone: No Panel Informationon 01-16 Radiology Study observation (narrative) [facility] OB GROWTHon 01-16-2025 [place] [address] Ultrasound Report Signed Patient: MEENA LUCERO MR#: [id number] : 1995 Acct:[id number] Age/Sex: 29 / F ADM Date: 01/16/25 Loc: US Attending Dr: Gary Robison D.O. Ordering Physician: Gary Robison D.O. Date of Service: 01/16/25 Procedure(s): US OB growth Accession Number(s): [id number] cc: Gary Robison D.O.; Physician,Non-Staff MFelipe The [address] [address] Patient Name: MEENA LUCERO MRN: [id number] date: 1995 Sex: F Assigned Patient Location: US Current Patient Location: US Accession/Order Number: [id number] Exam Date: 01/16/2025 11:08 Report Date: 01/16/2025 [...] Marlene Orellana M.D.01/16/2025 11:19 AM Dictation Location: [place] [address] Electronically authenticated by: [id number] Y Date: 01/16/2025 11:19 Dictated By: Marlene Orellana M.D. Signed By: 01/16/25 1122 DD/ 1119 TD/TT: Market Development Executive: [facility] Radiology, Radiologist, MD - 01/16/[address] [address] Ultrasound Report Signed Patient: MEENA LUCERO MR#: [id number] : 1995 Acct:[id number] Age/Sex: 29 / F ADM Date: 01/16/25 Loc: US Attending Dr: Gary Robison D.O. Ordering Physician: Gary Robison D.O. Date of Service: 01/16/25 Procedure(s): US OB growth Accession Number(s): [id number] cc: Gary Robison D.O.; Physician,Non-Staff [place] [address] Patient Name: MEENA LUCERO MRN: [facility]:[id number] date: 1995 Sex: F Assigned Patient Location: Current Patient Location: US Accession/Order Number: [id number] Exam Date: 01/16/2025 11:08 Report Date: 01/16/2025 [...] Marlene Orellana M.D.01/16/2025 11:19 AM Dictation Location: [place] [address] Electronically authenticated by: [id number] Y Date: 01/16/2025 11:19 Dictated By: Marlene Orellana M.D. Signed By: 01/16/25 1122 DD/ 1119 TD/TT: Market Development Executive: [facility] OB GROWTHOrdered By: Braxton ologrolo Radiology on 01-16-2025 [facility] Work Phone: Urinalysis macro (dipstick) panel (U)on 01-16-2025 Bilirubin, UA Negative Negative - 4(70) +++ mg/dL [facility] Blood, UA Negative Negative - 50 Darnell/mcL [facility] Clarity, UA Clear [facility] Color, UA Yellow [facility] e Glucose, UA Negative Negative - 1999(110) ++++ mg/dL [facility] Interpretation and review of laboratory results Abnormal [facility] Ketones, UA Negative Negative - 160(16) ++++ mg/dL [facility] Leukocytes, UA Moderate Negative - 500+++ Shona/mcL [facility] Nitrite, UA Negative Negative - Positive [facility] pH, UA 7 5 - 9 [facility] Protein, UA Negative Negative - 1999(20) ++++ mg/dL [facility] Spec Grav, UA 1.015 1 - 1.03 [facility] Urobilinogen, UA 0.2 0.2 - 12 mg/dL [facility] ALL PLATELET COUNTon 025 Interpretation and review of laboratory results Abnormal [facility] TBH PLT 139 Low [facility] ALL CBC WITH AUTO DIFFon BASOPHILS ABSOLUTE AUTO 0 [facility] Basophils/100 WBC (Bld) 0.2 % 0.2 - 2.0 % [facility] Eosinophils/100 WBC (Bld) 0.9 % 0.9 - 7.0 % [facility] Erythrocyte distribution width (RBC) [Ratio] 13.2 % 11.0 - 15.0 % [facility] Hematocrit (Bld) [Volume fraction] 34.6 % Low 36.0 - 48.0 % [facility] Hemoglobin (Bld) [Mass/Vol] 11.5 g/dL Low 12.0 - 16.0 g/dL [facility] IMMATURE GRANULOCYTES ABS AUTO 0.02 [facility] Immature granulocytes/100 WBC (Bld) 0.3 % 0.0 - 0.5 % [facility] Interpretation and review of laboratory results Abnormal [facility] re LYMPHOCYTES ABSOLUTE AUTO 1.3 [facility] Lymphocytes/100 WBC (Bld) 22 % 20.5 - 60.0 % [facility] MCH (RBC) [Entitic mass] 28.8 pg 26.7 - 34.0 pg [facility] MCHC (RBC) [Mass/Vol] 33.2 g/dL 29.9 - 35.2 g/dL [facility] MCV (RBC) [Entitic vol] 86.5 fL 81.0 - 99.0 fL [facility] MONOCYTES ABSOLUTE AUTO 0.4 [facility] Monocytes/100 WBC (Bld) 7.2 % 1.7 - 12.0 % [facility] NEUTROPHILS ABSOLUTE AUTO 4 [facility] Neutrophils/100 WBC (Bld) 69.4 % 43.0 - 75.0 % [facility] Platelet mean volume (Bld) [Entitic vol] 11.7 fL 9.5 - 13.5 fL [facility] TBH EO # 0.1 [facility] TB PLT 117 Low [facility] e TB RBC 4 Low [facility] TB WBC 5.7 [facility] Urinalysis macro (dipstick) panel (U)on 12-19-2024 Bilirubin, UA Negative Negative - 4(70) +++ mg/dL [facility] Blood, UA Negative Negative - 50 Darnell/mcL [facility] Clarity, UA Clear [facility] re Color, UA Yellow [facility] e Glucose, UA Positive Negative - 1999(110) ++++ mg/dL [facility] Comment on above: 100 mg Interpretation and review of laboratory results Abnormal [facility] re Ketones, UA Negative Negative - 160(16) ++++ mg/dL [facility] Leukocytes, UA Positive Negative - 500+++ Shona/mcL [facility] Comment on above: small Nitrite, UA Negative Negative - Positive [facility] pH, UA 7 5 - 9 [facility] e Protein, UA Negative Negative - 1999(20) ++++ mg/dL [facility] Spec Grav, UA 1.02 1 - 1.03 [facility] Urobilinogen, UA 0.2 0.2 - 12 mg/dL [facility] Urinalysis macro (dipstick) panel (U)on 11-20-2024 Bilirubin, UA Negative Negative - 4(70) +++ mg/dL [facility] Blood, UA Negative Negative - 50 Darnell/mcL [facility] Clarity, UA Clear [facility] re Color, UA Yellow [facility] [employer] [facility] [employer] [facility] e Glucose, UA Negative Negative - 1999(110) ++++ mg/dL [facility] Interpretation and review of laboratory results Abnormal [facility] re Ketones, UA Negative Negative - 160(16) ++++ mg/dL [facility] Leukocytes, UA Positive Negative - 500+++ Shona/mcL [facility] Comment on above: small Nitrite, UA Negative Negative - Positive [facility] pH, UA 7.5 5 - 9 [facility] Protein, UA Negative Negative - 1999(20) ++++ mg/dL [facility] Spec Grav, UA 1.015 1 - 1.03 [facility] Urobilinogen, UA 0.2 0.2 - 12 mg/dL [facility] [employer] [facility] e IGP,APTIMA HPV,AGE GDLNon AGE GDLN ACOG TESTING Note . [facility] Comment on above: TESTS RESULT FLAG UN ITS REF RANGE LAB Clinician Provided Cytology Information Source.............Cervix No. of containers..01 ThinPrep Vial Age Algo ACOG Subha... -20 12 FLAG LEGEND: L-Low Normal,H-High Normal,LL-Alert Low,HH-Alert High <-Panic Low,>-Panic High,A-Abnormal,AA-Critical Abnormal Performed at: 01 =[facility] [address] [place] [address] Yulisa Mustafa MD, IGP, RFX APTIMA HPV ASCU Note . [facility] Comment on above: TESTS RESULT FLAG UN ITS REF RANGE LAB DIAGNOSIS: 02 NEGATIVE FOR INTRAEPITHELIAL LESION OR MALIGNANCY. FUNGAL ORGANISMS MORPHOLOGICALLY CONSISTENT WITH FELIPE SPECIES ARE PRESENT. Specimen adequacy: 02 Satisfactory for evaluation. Endocervical and/or squamous metaplastic cells (endocervical component) are present. Performed by: Estefany Boucher, Earth Mover ([facility]) . 02 Note: Note 03 The [...] <-Panic Low,>-Panic High,A-Abnormal,AA-Critical Abnormal Performed at: [address] [place] [address] Pily Shields PhD, [facility] [address] [address] Yulisa Mustafa MD, Performed at: =[facility] [address] [id number] Pnp: Yulisa Mustafa MD, Phone: [phone] Performed at: [address], [place] [id number] Pnp: Pily Shields PhD, Phone: [phone] SPATULA-ALONE CERVIX [facility] RECURRENT VAGINITIS (HTRX)on 10-18-2024 ATOPOBIUM VAGINAE 0 [facility] ATOPOBIUM VAGINAE Not detected [facility] BVAB 2,3 (BACTERIAL VAGINOSIS ASSOCIATED BACTERIA 2, 3); MOBILUNCUS SPP 0 [facility] BVAB 2,3 (BACTERIAL VAGINOSIS ASSOCIATED BACTERIA 2, 3); MOBILUNCUS SPP Not detected [facility] FELIPE ALBICANS, PARAPSILOSIS, TROPICALIS 0 [facility] FELIPE ALBICANS, PARAPSILOSIS, TROPICALIS Not detected [facility] FELIPE GLABRATA Not detected [facility] FELIPE KRUSEI 0 [facility] FELIPE KRUSEI Not detected [facility] CHLAMYDIA TRACHOMATIS 0 [facility] CHLAMYDIA TRACHOMATIS Not detected [facility] GARDNERELLA VAGINALIS 0 [facility] GARDNERELLA VAGINALIS Not detected [facility] MEGASPHAERA (TYPES 1, 2) 0 [facility] MEGASPHAERA (TYPES 1, 2) Not detected [facility] MYCOPLASMA GENITALIUM 0 [facility] MYCOPLASMA GENITALIUM Not detected [facility] NEISSERIA GONORRHOEAE 0 [facility] NEISSERIA GONORRHOEAE Not detected [facility] TRICHOMONAS VAGINALIS 0 [facility] TRICHOMONAS VAGINALIS Not detected [facility] Urinalysis macro (dipstick) panel (U)on 10-17-2024 Bilirubin, UA Negative Negative - 4(70) +++ mg/dL [facility] Comment on above: n Blood, UA Negative Negative - 50 Darnell/mcL [facility] Clarity, UA Clear [facility] Color, UA Yellow [facility] Glucose, UA Negative Negative - 1999(110) ++++ mg/dL [facility] Interpretation and review of laboratory results Normal [facility] Ketones, UA Negative Negative - 160(16) ++++ mg/dL [facility] Leukocytes, UA Negative Negative - 500+++ Shona/mcL [facility] Nitrite, UA Negative Negative - Positive [facility] pH, UA 6 5 - 9 [facility] Protein, UA Negative Negative - 1999(20) ++++ mg/dL [facility] Spec Grav, UA 1.03 1 - 1.03 [facility] Urobilinogen, UA 0.2 0.2 - 12 mg/dL [facility] Urinalysis macro (dipstick) panel (U)on 09-18-2024 Bilirubin, UA Negative Negative - 4(70) +++ mg/dL [facility] Blood, UA Negative Negative - 50 Darnell/mcL [facility] Clarity, UA Clear [facility] Color, UA Yellow [facility] Glucose, UA Negative Negative - 1999(110) ++++ mg/dL [facility] Interpretation and review of laboratory results Normal [facility] Ketones, UA Negative Negative - 160(16) ++++ mg/dL [facility] Leukocytes, UA Negative Negative - 500+++ Shona/mcL [facility] Nitrite, UA Negative Negative - Positive [facility] pH, UA 6.5 5 - 9 [facility] Protein, UA Negative Negative - 1999(20) ++++ mg/dL [facility] Spec Grav, UA 1.015 1 - 1.03 [facility] Urobilinogen, UA 0.2 0.2 - 12 mg/dL [facility] BOX TESTon 09-11-2024 BOX TEST SENT OUT EDGAR ALEMAN [facility] BOX1 [facility] BOX2 11/11/24 [facility] UNITY BOX [facility] HCG ( test) Ql (U)o n 08-18-2024 Interpretation and review of laboratory results Abnormal [facility] Preg Test, Ur Positive [facility] Urinalysis macro (dipstick) panel (U)on 08-18-2024 Bilirubin, UA Negative Negative - 4(70) +++ mg/dL [facility] Blood, UA Negative Negative - 50 Darnell/mcL [facility] Clarity, UA Clear [facility] re Color, UA Yellow [facility] e Glucose, UA Negative Negative - 1999(110) ++++ mg/dL [facility] Interpretation and review of laboratory results Abnormal [facility] Ketones, UA Negative Negative - 160(16) ++++ mg/dL [facility] Leukocytes, UA Negative Negative - 500+++ Shona/mcL [facility] Nitrite, UA Positive Negative - Positive [facility] Comment on above: small pH, UA 7.0 5 - 9 [facility] Protein, UA Negative Negative - 1999(20) ++++ mg/dL [facility] Spec Grav, UA 1.015 1 - 1.03 [facility] Urobilinogen, UA 0.2 0.2 - 12 mg/dL [facility] ALL HCG, QUANTITATIVEon 07-23 Interpretation and review of laboratory results Abnormal [facility] re MHPT HCG, QUANT 26300.0 High [facility] thcare Comment on above: Non-preg premeno <=5 Postmeno <=8 Male <=3 If HCG results do not concur with clinical observations, additional testing to confirm results is recommended. Original Ordering Provider: GARY MEI [facility] HCG, Quanton 08-07-2024 HCG, Quant 61961.0 mIU/mL High <5 [facility] Comment on above: Result Comment: Non-preg premeno <=5 Postmeno <=8 Male <=3 If HCG results do not concur with clinical observations, additional testing to confirm results is recommended. Performed By: #### B HCG #### [facility] [address] [place] [address] Pnp: Armen Madrigal MD HCG, Quantitative, on 08-07-2024 [place] [address].0 m[IU]/mL High [facility] Comment on above: Non-preg premeno <=5 Postmeno <=8 Male <=3 If HCG results do not concur with clinical observations, additional testing to confirm results is recommended. Interpretation and review of laboratory results Abnormal [facility] ALL HCG, QUANTITATIVEon 07-23 Interpretation and review [...] 08-02-2024 HCG, Quant 1366.0 mIU/mL High <[address] [facility] Comment on above: Result Comment: Non-preg premeno <=5 Postmeno <=8 Male <=3 If HCG results do not concur with clinical observations, additional testing to confirm results is recommended. Performed By: #### B HCG #### [facility] [address] [place] [address] Pnp: Armen Madrigal MD ALL HCG, QUANTITATIVEon Interpretation and review of laboratory results Abnormal [facility] MHPT HCG, QUANT 506.3 High [facility]al thcare Comment on above: Non-preg premeno <=5 Postmeno <=8 Male <=3 If HCG results do not concur with clinical observations, additional testing to confirm results is recommended. Original Ordering Provider: GARY AGUILAR DO [facility] HCG, Quanton 07-31-2024 HCG, Quant 506.3 mIU/mL High <5 [facility] Comment on above: Result Comment: Non-preg premeno <=5 Postmeno <=8 Male <=3 If HCG results do not concur with clinical observations, additional testing to confirm results is recommended. Performed By: #### B HCG #### [facility] [address] [place] [address] Pnp: Armen Madrigal MD HCG, Quantitative, on 07-31-2024 HCG.beta subunit Qn 506.3 m[IU]/mL High NINF B ON [facility] Comment on above: Non-preg premeno <=5 Postmeno <=8 Male <=3 If HCG results do not concur with clinical observations, additional testing to confirm results is recommended. Interpretation and review of laboratory results Abnormal BON [facility] ALL HCG, QUANTITATIVEon Interpretation and review of laboratory results Abnormal [facility] HCG, QUANT 200.3 High NINF [facility] Comment on above: Non-preg premeno <=5 Postmeno <=8 Male <=3 If HCG results do not concur with clinical observations, additional testing to confirm results is recommended. Original Ordering Provider: GARY WALTERSISYRAMON [facility] HCG, Quanton 07-29-2024 HCG, Quant 200.3 mIU/mL High <5 [facility] Comment on above: Result Comment: Non-preg premeno <=5 Postmeno <=8 Male <=3 If HCG results do not concur with clinical observations, additional testing to confirm results is recommended. Performed By: #### B HCG #### [facility] [address] [place] [address] Pnp: Armen Madrigal MD ALL HCG SERUM,QUALITATIVEon 07-27-2024 Interpretation and review of laboratory results Abnormal [facility] HCG SCREEN, BLOOD Positive Abnormal NEG [facility] Comment on above: If HCG results do not concur with clinical observations, additional testing to confirm result is recommended. This test is not labeled for use as a tumor marker. [facility] has confirmed the use of plasma for this test. This has not been cleared or approved by the U.S. Food and Drug Administration. The FDA has determined that such clearance is not necessary. Original Ordering Provider: GARY WALTERSISYNC [facility] HCG Screen, Bloodon 07-27-20 24 HCG Screen, Blood Positive Abnormal NEG [facility] Comment on above: Result Comment: If HCG results do not concur with clinical observations, additional testing to confirm result is recommended. This test is not labeled for use as a tumor marker. [facility] has confirmed the use of plasma for this test. This has not been cleared or approved by the U.S. Food and Drug Administration. The FDA has determined that such clearance is not necessary. Performed By: #### H CG #### [facility] [address] [place] [address] Pnp: Armen Madrigal MD HCG, Quanton 07-27-2024 HCG, Quant 73.4 mIU/mL High <5 [facility] Comment on above: Result Comment: Non-preg premeno <=5 Postmeno <=8 Male <=3 If HCG results do not concur with clinical observations, additional testing to confirm results is recommended. Performed By: #### B HCG #### [facility] [address] [place] [address] Pnp: Armen Madrigal MD HCG, Quanton 06-08-2024 HCG, Quant <1.0 Normal <5 [facility] Comment on above: Result Comment: Non-preg premeno <=5 Postmeno <=8 Male <=3 If HCG results do not concur with clinical observations, additional testing to confirm results is recommended. Performed By: #### B HCG #### [facility] [address] [place] [address] Pnp: Armen Madrigal MD XR SACRUM COCCYX (MIN 2 VIEW S)on 05-24-2024 XR SACRUM COCCYX (MIN 2 VIEWS) HISTORY: Sacral pain. TECHNIQUE: 3 views sacrum and coccyx. COMPARISON: None. FINDINGS: Sacroiliac joints are normal. No fracture or acute osseous abnormality is identified. IMPRESSION: No acute process. Interpreted by: Parker Coleman MD Signed by: Parker Coleman MD 05/24/24 Final result Normal [facility] HCG, Quanton 03-04-2024 HCG, Quant 3680.0 mIU/mL High <[address] [facility] Comment on above: Result Comment: Non-preg premeno <=5 Postmeno <=8 Male <=3 If HCG results do not concur with clinical observations, additional testing to confirm results is recommended. Performed By: #### B HCG #### [facility] [address] [place] [address] Pnp: Armen Madrigal MD Cytology Cervical or vaginal smear or scraping studyon 05-26-2023 [facility] RAD - MISCon 02-01-2023 RAD - MISC [id number] #1.00CD:127 Normal [facility] XR ANKLE RIGHT (MIN 3 VIEWS) on 01-29-2023 FINDINGS/IMPRESSION: 1. Compression fracture tip of the fibula no longer separately seen. 2. Anatomic alignment throughout. 3. Soft tissue swelling has resolved. [facility] EXAM: XR ANKLE RIGHT (MIN 3 VIEWS). HISTORY: Other closed fracture of proximal end of right fibula with routine healing, subsequent encounter. COMPARISON: 01/10/2023. [facility] Mauro Anton Jr., MD - 01/29/2023 EXAM: XR ANKLE RIGHT (MIN 3 VIEWS). HISTORY: Other closed fracture of proximal end of right fibula with routine healing, subsequent encounter. COMPARISON: 01/10/2023. IMPRESSION: FINDINGS/IMPRESSION: 1. Compression fracture tip of the fibula no longer separately seen. 2. Anatomic alignment throughout. 3. Soft tissue swelling has resolved. [employer] Phone: Radiology Study observation (narrative) [employer] Phone: XR ANKLE RIGHT (MIN 3 VIEWS) Ordered By: Mauro Anton on 01-29-2023 [employer] Phone: RAD - MISCon 01-11-2023 RAD - MISC [id number] #1.00CD:127 Normal [facility] XR ANKLE RIGHT (MIN 3 VIEWS) on 01-10-2023 FINDINGS/IMPRESSION: 1. Very small nondisplaced incomplete fracture is questioned in the distal tip of the right fibula, with mild surrounding soft tissue swelling. 2. No other fracture, malalignment, significant arthritis or acute bony abnormality is seen. [facility] CLINICAL HISTORY: Right ankle pain and swelling since an injury yesterday. RIGHT ANKLE 3 VIEWS: [facility] João Amezquita MD - 01/10/2023 CLINICAL HISTORY: Right ankle pain and swelling since an injury yesterday. RIGHT ANKLE 3 VIEWS: IMPRESSION: FINDINGS/IMPRESSION: 1. Very small nondisplaced incomplete fracture is questioned in the distal tip of the right fibula, with mild surrounding soft tissue swelling. 2. No other fracture, malalignment, significant arthritis or acute bony abnormality is seen. 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 Obesity due to excess calories BMI 31.0-31.9,adult Your Care Team Attending Physician - Keyon DAVIS MD Primary Care Physician - Charli LOPEZ This [...] Following Appointments Follow Up with SUSAN BENAVIDEZ, Christopher, FAM When: Only if needed Where: Medications What How Much When Instructions New dicyclomine (dicyclomine 20 mg Tab) 1 Tablets By Mouth 3 times a day Duration: 10 Days 30 to 60 minutes before meals Pickup at [facility] Unchanged multivitamin, ( Multivitamins with Vitamin B Complex, Vitamin C, Minerals and L-Methylfolate oral capsule) 1 Capsules By Mouth Every day Contact prescribing physician if questions or concerns Unchanged ondansetron (Zofran ODT 4 mg Tab-Dis) 1 Tablets By Mouth 3 times a day Contact prescribing physician if questions or concerns Pharmacy Information [facility]: [address], [place] [id number] [phone] Medications and Immunizations Administered Not Given influenza virus vaccine, inactivated, Postpone due to refusal SARS-CoV-2 mRNA (tozinameran 5y-11y) vac, Postpone due to refusal Allergies Percocet 5/325 (Hives, Rash) Vicodin (Hives) codeine (Hives, Rash) Problems Ongoing - Any problem that you are currently receiving treatment for. BMI 31.0-31.9,adult Gastroenteritis due to Camby-like virus Non-smoker Obesity due to excess calories [...] immune system (more content not included)... Normal [facility] ED Note-Physicianon 12-08-19 ED Note-Physician [id number] #1.00CD:127 Normal [facility] Family Medicine Office/Clini c Noteon 12-08-2022 [...] influenza and COVID. 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 Gastroenteritis due to Camby-like virus (A08.8: Other specified intestinal infections) Viral [...] day(s), # 30 tab(s), Refills(s) 0, Pharmacy: [facility], 170, cm, 12/08/22 12:00:00 EST, Height/Length Dosing, 90.5, kg, 12/08/22 12:00:00 EST, Weight Dosing Follow-up With When Contact Information SUSAN BENAVDIEZ, KANDY Caban Only if needed Additional Instructions: Patient Education Viral Gastroenteritis, Adult Problem List/Past Medical History Ongoing BMI 31.0-31.9,adult Gastroenteritis due to Camby-like virus Non-smoker Obesity due to excess calories [...] Alcohol Use, 05/26/2017 Employment/School 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 Normal [facility] Comment on above: Result Comment: [...] and water are not available, use hand livestock farm manager. ? Make sure that all people in your household wash their hands well and often. ? Take fect-wwv-abdbikc and prescription medicines only as told by [...] to person (more content not included)... Normal [facility] COVID-19, Rapidon 12-04-2022 SARS-CoV-2 (COVID-19) RNA WADE+probe Ql (Unsp spec) Not detected Not Detected [facility] Comment on above: Rapid NAAT: The [...] management decisions. Fact sheet for Healthcare Providers: https://www.fda.gov/media/720600/download Fact sheet for Patients: https://www.fda.gov/media/394655/download Methodology: Isothermal Nucleic Acid Amplification Specimen Description .NASOPHARYNGEAL SWAB [facility] Rapid influenza A/B antigens on 01-13-2023 Flu A Antigen Negative NEGATIVE [facility] Comment on above: for Influenza A Anti gen Flu B Antigen Negative NEGATIVE [facility] Comment on above: for Influenza B Anti gen. [facility] C Urineon 09-06-2022 Bacteria identified Cx [...] Locations R1: This test was performed at: [facility], [address] [place] [address], [address] [place] [address], [facility] Comment on above: Performed By: #### 2 [id number], [id number], [id number] ####[place] [address] Coding Summary.on 09-04-2022 Coding Summary. CD:[id number] Gh0bWw+PGhlYWQ+PE1FV OLpA76ngMVzgG6OI6bGW B3YAGYTNJIORJ0NCQ5ed CH0TAslZ8KrohIz NknwcWLaFZ53QOw2LCL6 iBtnBPkdjX7knJRjX5g4 PmEbUH17jB82DDjoBWIc UmV1OzIgrjpseQDo A4zwKeMlgKStDna+PHRh YmxlIHdpZHRoPScxMDAl QqTofSfuLC2iLt1eUJOy LWNvbGxhcHNlOiBj d9adEUUnYJxmFS9ilQox L3LflWP4MTEef3v5Ba68 dHI+PHDkTEN2qLecBWvt m251HxWdt4ywOGC2 vIDxAWjfAAO2Q54hs2U1 XRBfNGIqDLF7rML4yT2l qUethelcG5UusQZpFiD8 HMT9fUZgaX4drOep kbadlV0iKor+D74MQB9H BIFEQI9TSts7C2JqOsvq dHI+WX29HNTqAR88sBWp wHNde0enfHz5HuNm QIUmSQC8lJbnKUnfz2Ng EWCvI42szTFmi3R9WDWc bYdjhMHgCrYrdZH4vK9v WFuqabtxj8pdpgxd Kwigr2ndjx77tT43K69n PJldHVStGDS0KIKgAISu gDwndu6emO2fIj4+IDxj o1utt7cnoQf8KpRp VPFvbzFqgEehFSA0z8Td Tv47X5EmsVoaa6LgSkx2 an55gQMym3B2tXI4SJwx EXEqbQ2kPMjiGrJ6 BYXrBmQxfW18rYZnKOxj Ro1wzMibhAjcUW8fHEHr fubzPLSjrP8tXDQioYIo cHbxOD4cARYbatzi w689KiBiDUV4GWVvxTMe D6LgeS2iAnKeVIBpCJMq O5UwpXRiHUywH999IZdp ZnA2JUPtruIsE9Aq FTJajUoeJsL5f2X6Wn2C d8WuzbodBYY3NFgjKJAd FkL8UtDwBkA2P2SkKnr2 AEDfhXlsMZ2iF3Qp JDJjvhuiacpkbDU2ZNRw ZATxzG10iSCkMJdeKd2u i8V5t779QEHyTRIxkC33 Ug4ieHxgOYNloFVP nK9bxkdri0ifzltkMgNx CLOcCVb6PYl9ETVlqCnq MoSmCVZ1QmW7XDG1mUGs xI0jpVgohzpxgW8i Oyc+X62vfD7sNLQ0UYG1 gkpxSHLwpqMpDO17VO52 H2DuYvcmuLXogAJ+PGRp bgTfwPsxSI9mOxLk z2ssm6VdMAgsG0YqHNVo BOmoFug0NXWbGTO0gXU1 nM8hILYhVJfns7L7yMK1 K2LdevJuzh3aj1kv QERbRMvuC03baESir9C3 RJNkiAL2CAWofFecTaKd dM55Ulq+TBHxmRoza2Ej Aguif1dju0iwgOd2 IjMwJSIgdmFsaWduPSJ0 n1RaQm17B58cMRvpFFXd RSDiWLAlVSVyeTpiuc2a wB9tTj9+PGNvbCB3 iYZ5eK5vOXAdSkO5OVto Z200CqGmbXGhLrrfz9sw z9jiuQa2GpPyGGLwrsSq cZwdBMD9j0VhYp78 Y36aTEshZUKiKJAiCOWj ECLmbBhnhp3suV6sEt3+ AW2ca9davi46zW96uPS+ WXKrIYV1yGveRFnb QVNypY9uHSfbZdX8YVLz AfRkvC87wKNtSCplFt7y oGkklJogXL7tCUMpofox m391HsQix8udVJKk hSDeSEdcQOW2X83uo2S4 HZHhRTYgMNO1zVA0cQ7t bGlnbjogbGVmdDsgdmVy mWxsZAupFBlrB330 IHRvcDsnPlBhdGllbnQg YiYzDEu1W4UsHas5EAEl oEznXC7bxWZfEIyfEi3h wFwbyKbvGY7mBQWc vnxlo584MaDyn1neFRCo zYSzILoxRHZ7U67pm7K3 LTPfNTVfKNH7tDE5aT5s bGlnbjogbGVmdDsg wcVgsZsmEAdiNGarI084 IHRvcDsnPkJpcnRoIERh wTE6QG54EV66fWJwx9O1 sCA8B5IxKOOugntn rsqvgKP5BNRbRVGeyH86 Xo3okSbuQt0wWDCuKWW2 NFWmaNTuI7AesY2jHhWj APHxYEDuY7OvlUPj IFecL126QXexSwK2BZJw mkBxG0AkRHRjxManRwK9 f7F0Ki6RU5Q2DI12SB44 bYIoi2N8oUZ4D8Bp KVHplrttolltvYA3WLZe BBGncN56Gw6pcPukRe2e VTUuPBZ4NZBryUFsI2By gO2vWpZqXAZhIDDe E2IbkLXgGRthS861MExz DdJ0WYKqahJjX1XwXPKb rZvxMoN3r2D5Px0YFJn6 ZD90SM67mVZky8O5 hAV9L5CxCTBafhymosnn iQU7IWErFZXdiD28Yf3x xYdrYh2zHHAtEEU2SXDt nSZcQ1WpaJ3mKiUq LWZdDMGaU6JktKDlMSfl E285CHwyBaR9CQBanjTv D5WsJRSgtEktApS6p1X3 Kg7DHEInYH01PGM7 yTV8LF52WB16B0ChLkea dGFibGU+PHRhYmxlIHdp ZHRoPScxMDAlJyBzdHls LR3uMa1uXXLzSESo wYqpeTThJmUco0oyFSVl GFgvQB0zeAdhM9YisQM6 FDOvd2t8Wb44I48iR9Dv dXA+OWGazYB8xLG9 rJ3vUmYiBeF0SQmjV462 VvVmdQDuBhfkk0oji4oc qTr3OcA4UUIrnnQsdUtu QNC1l4EtKl35K82o IHdpZHRoPSIxNSUiIHZh aOonfk2yuB0cSd7+PGNv hLO7xPZ6tR4cTxHiXpR5 YNxdK342ZwTtiKQd Segmb6rqh8rlmSj3SrSd WHIpfgYlrEjxKYH8q4Xe Qt77Y7KopIyxn5MvMgt7 al62uJFeb6Q4dPG9 S2XsWADbctnlbFMrzJrz YF9dXPDvguvhWBDryS9e AGPpD0x0QeGrGaV7ONkq V5FrqwQ5IBCatFCn APrmTOO8E50al9O3JHUs RNCwAHR6fWJ5cJ5nqLkg bjogbGVmdDsgdmVydGlj DFrcBQvmU818TYVk zZocYCRwtR8gNKUpaMSb rFqvXE3kHBYkvsxwHcAF Qt2LHWUkGNnXKVjGSG9k RTwvdGQ+PHRkIHN0 wSsbWCjsIDFibT0nXDTt U3r4GdZmShV8PIswL4Rf LZWrxidqYj11qZ1hEpLx YkW1BQmsC9VqyzJ0 QZFueKKzHQgfZZA5L75n d3X2AZEwPTSlLAS4iAI5 wH1qsMcyigmrvTZriPry dmVydGljYWwtYWxp Y359VNIfhVzaDeWwQoJ9 NeG1SBF4K6EzJcj4MVAi vRdxXW4tkBCsFQemSh4x uQtiyXpvTJ0mMGYb fmreRGDrwW9eUNBsoMHq zZggTN0bSBNmbiome881 VtRsECT9NITptRRgH8As wZ7eLbCxGVIhQMAo L2TulKUfLDeiD357PKdg GfG7MAAociMmP3UaCQZv gFpnVhX2y5X2Jt5mWcIW ZWFyczwvdGQ+PHRk HUS3nQhqRGyiGQJuvZ7p STRgD7f2VtFkReS3QQsl T5VxSPKvcgzvRv43lP1q UpZwCoE1XVvaL2Mm upO3PDLbjPFpVKczOUO5 F91jn8O2EGWeWLKlFJI7 tZN0lJ1arNmykecblPDq dDsgdmVydGljYWwt RMbhZ243VXEyyIxyAzXc bWFsZTwvdGQ+PHRkIHN0 tDazCQgaZHIfdM0rEEZh M5y8FlPjPvA1XJvg F8AuDWPeiszhDl85wT7g OeFdMxK6GBzwJ0EjubT4 QJEyxMCfMYsvVNQ3M95p p7Z2PENeZPIiZOX2 tIR1vC5vsMacteqzyWGu dDsgdmVydGljYWwtYWxp T520EKWyhLgyPvKqHSFv CL2jjSkwmOB+PC90 du17X6EfIzgfTfl7QVOw PWR5gCL6yQ4oAIWlSWfx c8U8hEY1C0IvwqDmub8u k5eqCSJeWUuiC86u vKEnh0Z0UDAltMA1JFLr dLqjAlEqkZ09Asm+PGNv gTofz8FiOxdnw9cxb3fl dSv9SbSxHHZbuaUx nFxmVGP3y0NsDi60W46q IHdpZHRoPSIzMCUiIHZh qWynhf2drE1vDl1+PGNv fNM3qAY5iE6kEeYp GyQ5WQuzL751IvEcrGHe Zakqn9rgv0jrxMw2UuMt NZLrmsNjqOlvVBO5v7Ri Ib20X0KlwUijh9Tq Rji6zc61xPGgn2N5kIA2 Y3BwYINuxdtxmVAplLdo LT3qHUXkayhpHTKkuO1t ANCqU3f0WiKqRhG0 TOpeH7BidfH5ABXjgHVc CDTyfUNEvU5twnlte2jh onloMlDwGYZxAKx5AMa2 LWFsaWduOiBsZWZ0 HjB2AHH2zOUotI1aaMza lhdulQ9gSgr+OMh4l1jd xGVsBX9lvXK3SQ85EW11 vTGks1W2yNM9W4Ww KATyeymxkqgbtPC5GWYn EFVwxC79Sm8ddMjmNt0n JXCnDMX4URUkfCZvH5Xi aT4cHfYrPDSnJPYm L9KboDMyTRqeW499TEcj PxT2QFOetuOwD1YoENBw yElpPqY0o9W4Fe9PLI42 UJ47CB68nBTxn5E6 kYA9Y2FuQMHfccklprxv nAZ5AXXuJWRbgR30Br7i zWysIh3dOJIhMBL1EWRg yURjJ7YcvK9zWsAh AMJcYTHhR9GrhBZzLXjg M062ECnsOdF9TGUuqwZh G7VoHTMprDujDlY4f8W8 Xj3EWa18FW30NM31 rZJmq2Y4fFL0T8EpRKDn czoqpqvjgOI3NBHrQKGw nZ87Cc7fcVwfHe2aNIZh OCN6MLDapQFrR5Sr gL5fMlEhZRClECOcG6Pl mLGzOXjwC222ADhmRpQ0 GCDzgoMcV1IuMCUagMfp RcY0v1Z5Mw3ESOnv bpr7X0WnDejfbEZ+PC90 MYVlRG74sMZavMHqb7oy sMn5TkUeJVXjULO0dTwa VZvso1MaWSSwL23h bGFw (more content not included)... Normal [facility] Consent for Treatmenton 08-22 Consent for Treatment [id number] #1.00CD:127 Normal [facility] Discharge Instructionson Discharge Instructions [id number] #1.00CD:127 Normal [facility] ED Clinical Summaryon 2021 ED Clinical Summary [address] [address] ED Clinical Summary Person Information Name: MEENA LUCERO/New_Tang Age: 26 Years : 1995 Sex: Female Language: Mongolian PCP: Charli LOPEZ Marital Status: Single Visit [...] 09/03/2022 15:51:51 09/03/2022 15:51:51 09/03/2022 15:51:51 ADDRESS: [address] [place] [id number] [facility] DOC NOTES: MEDICAL INFORMATION: Prescriptions Given: New Medications [facility], [address], [place] [id number], [phone] ondansetron (Zofran ODT 4 mg Tab-Dis) 1 Tablets By Mouth 3 times a day. Refills: 0. Medications to Continue with No Changes Other Medications multivitamin, ( Multivitamins with Vitamin B Complex, Vitamin C, Minerals and L-Methylfolate oral capsule) 1 Capsules By Mouth every day. Refills: 0. PATIENT EDUCATION INFORMATION: Instructions: Nausea and Vomiting, Adult Follow up: With: Address: When: Charli CARLSON [address] [place] [id number] Business (1) In 3 days 09/06/2022 DIAGNOSIS: Nausea & vomiting Normal [facility] ED Note-Physicianon 09-03-20 ED Note-Physician Basic [...] TID, # 15 tab(s), Refills(s) 0, Pharmacy: [facility], 170, cm, 09/03/22 14:31:00 EDT, Height/Length [...] Oral, TID Follow-up With When Contact Information Charlibillie CARLSON In 3 days 09/06/2022 EDT [address] [place] [address]- Business (1) Additional Instructions: Patient Education Nausea and Vomiting, Adult Attestation Patient seen and evaluated by the physician boilermaker's assistant. Attending physician was present in the emergency department and supervised care. This visit was performed by both the physician and an APC. I performed all aspects of the MDM as documented. This report was transcribed using voice recognition software. Every effort was made to ensure accuracy, however, inadvertently computerized pipe manufacture supervisor mistakes may be present. Appropriate healthcare PPE [...] (09/03/22 14:49:0 (more content not included)... Normal [facility] Comment on above: Result Comment: Elec [...] added (diluted fruit juice). ? Eat bland, vuvg-db-iueqmv foods in small amounts as you are able. These foods include bananas, applesauce, rice, lean meats, toast, and crackers. ? Avoid fluids that contain a lot of sugar or caffeine, such as energy drinks, sports drinks, and soda. ? Avoid alcohol. ? Avoid spicy or fatty foods. General instructions ? Take kxsd-zsw-cawfocp and prescription medicines only as told by your health care provider. ? Drink enough fluid to keep your urine pale yellow. ? Wash your hands often using soap and water. If soap and water are not available, use hand livestock farm manager. ? Make sure that all people [...] and drinking to prevent dehydration. ? Take btqt-iwt-gyevyoe and prescription medicines only as told by [...] 11/08/2006 Document Revised: 03/01/2020 Document Reviewed: 04/18/2019 [employer] Patient Education ? 2019 [employer]. Normal [facility] ED Patient Summaryon 022 ED Patient Summary [address] [address] Patient Discharge Instructions Person Information Name: MEENA LUCERO Age: 26 Years Arrival Date: 09/03/2022 14:27:10 Discharge Diagnosis: Nausea & vomiting Primary Care Physician: Charli LOPEZ Provider Information Primary Provider: Evan Moyer DO Advanced Employee Relations Advisor:Neil Meza PA-C The exam and treatment you received in the Emergency Department were for an urgent problem and are not intended as complete care. It is important that you follow up with a doctor, nurse practitioner, or physician?s boilermaker's assistant for ongoing care. If your symptoms become worse or you do not improve as expected and you are unable to reach your usual health care provider, you should return to the Emergency Department. We are available 24 hours a day. SHAHEEN LUCEROHRKERRY Alcaraz has been given the following list of patient education materials, prescriptions and follow-up instructions: Follow-up Instructions: With: Address: When: Charli CARLSON [address] [place] [id number] [facility] (1) In 3 days 09/06/2022 In the event that this physician does not participate in your insurance network, please consult with your insurance company to find a nearby participating provider. Patient Education Materials: Nausea and Vomiting, Adult A MESSAGE TO ALL PATIENTS REGARDING OPIOIDS PRESCRIPTION OPIOIDS: WHAT YOU NEED TO KNOW Prescription opioids can be used to help relieve pmdpfibs-re-ibblid pain and are often prescribed following a [...] struggling with addiction, tell your health rn acute care and ask for guidance or call [facility]?S National Helpline at 4-874-076-PLUO. v Source: US Dep (more content not included)... Normal [facility] U BetaHcg Qualon 09-03-2022 HCG.beta subunit (U) [Moles/Vol] Negative Normal [facility] Comment on above: Performed By: #### 2 [id number] ####[facility] [address] [place] [address] UA With Cult Reflexon 2021 Bacteria LM Ql (Urine sed) 2+ /HPF Abnormal Trace [facility] Comment on above: Performed By: #### 2 [id number], [id number] ####[facility] [address] [place] [address] Bilirubin Ql (U) Negative Normal Negative [facility] Comment on above: Performed By: #### 2 [id number], [id number], [id number] ####[facility] [address] [place] [address] Clarity (U) CLEAR Normal Clear [facility] Comment on above: Performed By: #### 2 [id number], [id number], [id number] ####[facility] [address] [place] [address] Color (U) YELLOW Normal Yellow [facility] Comment on above: Performed By: #### 2 [id number], [id number], [id number] ####[facility] [address] [place] [address] Epithelial cells.squamous LM.HPF (Urine sed) [#/Area] 5-8 Normal 0-2 [facility] Comment on above: Performed By: #### 2 [id number], [id number], [id number] ####[facility] [address] [place] [address] Glucose Test strip (U) [Mass/Vol] Negative Normal Negative [facility] Comment on above: Performed By: #### 2 [id number], [id number], [id number] ####[address] [address] Hemoglobin Ql (U) Negative Normal Negative [facility] Comment on above: Performed By: #### 2 [id number], [id number], [id number] ####[facility] [address] [place] [address] Ketones (U) [Mass/Vol] Negative Normal Negative [facility] Comment on above: Performed By: #### 2 [id number], [id number], [id number] ####[facility] [address] [place] [address] [place].plasma/Lith ium.RBC (Bld) [Mass ratio] 0-3 Normal 0-3 [facility] Comment on above: Performed By: #### 2 [id number], [id number], [id number] ####[facility] [address] [place] [address] Mucus Ql (Urine sed) 1+ Normal [facility] Comment on above: Performed By: #### 2 [id number], [id number], [id number] ####[facility] [address] [place] [address] Nitrite Ql (U) Negative Normal Negative [facility] Comment on above: Performed By: #### 2 [id number], [id number], [id number] ####[place] [id number] pH (U) 5.5 [pH] Invalid Interpretation Code 5.0-9.0 [facility] Comment on above: Performed By: #### 2 [id number], [id number], [id number] ####[place] [id number] Protein (U) [Mass/Vol] Negative Normal Negative [facility] Comment on above: Performed By: #### 2 9505096, 81379980, [id number] ####[place] [id number] Specific gravity (U) [Rel density] >=1.030 Invalid Interpretation Code 1.005-1.030 [facility] Comment on above: Performed By: #### 2 [id number] ####[place] [id number] Type of Urine collection method Clean Catch Normal [facility] Comment on above: Performed By: #### 2 [id number] ####[place] [id number] Urobilinogen Qn (U) 0.2 {Elver'U}/dL Normal 0.0-1.0 [facility] Comment on above: Performed By: #### 2 [id number] ####[address] [address] WBC Auto Ql (U) Negative Normal Negative [facility] Comment on above: Performed By: #### 2 [id number] ####[address] [address] WBC LM.HPF (Urine sed) [#/Area] 0-5 Normal 0-5 [facility] Comment on above: Performed By: #### 2 [id number] ####[place] [facility] [address] [place] [address] XR WRIST LEFT (MIN 3 VIEWS)o n 06-19-2022 Normal left wrist. [facility] EXAM: XR WRIST LEFT (MIN 3 VIEWS) HISTORY: M25.532. 26-year-old female, left wrist pain. COMPARISON: None. TECHNIQUE: Three views left wrist. FINDINGS: The radiocarpal joint and wrist are normal. Normal scapholunate distance. No erosion or chondrocalcinosis. [facility] Mauro Anton Jr., MD - 06/19/2022 EXAM: XR WRIST LEFT (MIN 3 VIEWS) HISTORY: M25.532. 26-year-old female, left wrist pain. COMPARISON: None. TECHNIQUE: Three views left wrist. FINDINGS: The radiocarpal joint and wrist are normal. Normal scapholunate distance. No erosion or chondrocalcinosis. IMPRESSION: Normal left wrist. [employer] Phone: Radiology Study observation (narrative) [employer] Phone: XR WRIST LEFT (MIN 3 VIEWS)O rdered By: Mauro Anton on 06-19-2022 [employer] Phone: Family Medicine Office/Clini c Noteon 06-01-2022 Family Medicine Office/Clinic Note Chief Complaint psychiatric arnp here for pain in left wrist, onset around 1 year no know injury. pain has been constant for about 1 week now. History of Present Illness Pt presents today to [facility]. Previous pt of [facility] in [place]. Concerned today about left wrist pain which started about 1 yr ago; pain has worsened over the last week. 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 Carries everything in her left hand. Right handed. Pain location: medial martinez hand, radiating to wrist Pain description: shooting Pain rated: 2/10, 7/10 with certain movements. 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 Negative Tinels and DeQuervians. + Phalens. Jewelry Manager strength equal. Neurologic: Cranial nerves II-XII grossly intact. Skin: [place], warm and dry. No rashes, ulcerations, or [...] day(s), # 30 tab(s), Refills(s) 1, Pharmacy: [facility], 170, cm, 06/01/22 12:55:00 EDT, Height/Length Dosing, 91.3, kg, 06/01/22 12:55:00 EDT, Weight Dosing [facility] External Ambulatory Referral 2. BMI 31.0-31.9,adult (Z68.31: Body mass index [BMI] 31.0-31.9, adult) The standard range for ages 18 and older is >=18.5 and < 25 kg/m2. Your BMI today was above this range, this falls in the obese category and there are medical benefits to weight loss. We can offer counselling, referral, and/or medical support in addressing this problem. Visit Spendji.gov for useful information to help make better [...] unspecified fo (more content not included)... Normal [facility] Comment on above: Result Comment: Elec [...] height. This can be done either in Mongolian (U.S[place] or metric measurements. Note that charts are available to help you find your BMI quickly and easily without having to do these calculations yourself. To calculate your BMI in Mongolian ([place] measurements, your health care provider will: [...] problems. ? BMI can be measured using Mongolian measurements or metric measurements. ? To interpret [...] 07/20/2005 Document Revised: 10/21/2018 Document Reviewed: 09/21/2018 [employer] Patient Education ? 2020 [employer] Orthopedics Carpal Tunnel Syndrome Carpal tunnel [...] Having a job, such as being a display carver or a cafeteria cashier, that requires you to repeatedly move [...] and midd (more content not included)... Normal [facility] Physician Referralon 022 Physician Referral [id number] #[id number] Normal [facility] Vital Signs Date Time Vital Sign Value Performing Clinician Ayad lozoya 02-13-2025 08:58-0400 Body mass index (BMI) [Ratio] 38.11 kg/m2 Gary Enriqueta DO Work Phone: [facility] 02-13-2025 08:58-0400 Body weight 103.87 kg Gary Enriqueta DO Work Phone: [facility] 02-13-2025 08:58-0400 Diastolic blood pressure 74 mm[Hg] Gary Enriqueta DO Work Phone: [facility] 02-13-2025 08:58-0400 Systolic blood pressure 120 mm[Hg] Gary Enriqueta DO Work Phone: [facility] 01-16-2025 08:41-0500 Body mass index (BMI) [Ratio] 38.07 kg/m2 Gary Enriqueta DO Work Phone: [facility] 01-16-2025 08:41-0500 Body weight 103.78 kg Gary Enriqueta DO Work Phone: [facility] 01-16-2025 08:41-0500 Diastolic blood pressure 70 mm[Hg] Gary Enriqueta DO Work Phone: [facility] 01-16-2025 08:41-0500 Systolic blood pressure 110 mm[Hg] Gary Enriqueta DO Work Phone: [facility] 12-19-2024 10:19-0500 Body mass index (BMI) [Ratio] 37.44 kg/m2 Gary Enriqueta DO Work Phone: [facility] 12-19-2024 10:19-0500 Body weight 102.06 kg Gary Enriqueta DO Work Phone: [facility] 12-19-2024 10:19-0500 Diastolic blood pressure 76 mm[Hg] Gary Enriqueta DO Work Phone: [facility] 12-19-2024 10:19-0500 Systolic blood pressure 122 mm[Hg] Gary Enriqueta DO Work Phone: [facility] 11-20-2024 09:42-0500 Body mass index (BMI) [Ratio] 36.61 kg/m2 Genevieve MARIA Work Phone: [facility] 11-20-2024 09:42-0500 Body weight 99.79 kg Genevieve MARIA Work Phone: [facility] 11-20-2024 09:42-0500 Diastolic blood pressure 74 mm[Hg] Genevieve MARIA Work Phone: [facility] 11-20-2024 09:42-0500 Systolic blood pressure 120 mm[Hg] Genevieve MARIA Work Phone: [facility] 10-17-2024 13:10-0500 Body mass index (BMI) [Ratio] 35.35 kg/m2 Gary Enriqueta DO Work Phone: [facility] 10-17-2024 13:10-0500 Body weight 96.34 kg Gary Enriqueta DO Work Phone: [facility] 10-17-2024 13:10-0500 Diastolic blood pressure 70 mm[Hg] Gary Enriqueta DO Work Phone: [facility] 10-17-2024 13:10-0500 Systolic blood pressure 120 mm[Hg] Gary Enriqueta DO Work Phone: [facility] 09-18-2024 11:15-0400 Body mass index (BMI) [Ratio] 35.2 kg/m2 Gary Enriqueta DO Work Phone: [facility] 09-18-2024 11:15-0400 Body weight 95.94 kg Gary Enriqueta DO Work Phone: [facility] 09-18-2024 11:15-0400 Diastolic blood pressure 74 mm[Hg] Gary Enriqueta DO Work Phone: [facility] 09-18-2024 11:15-0400 Systolic blood pressure 122 mm[Hg] Gary Enriqueta DO Work Phone: [facility] 08-18-2024 10:28-0400 Body mass index (BMI) [Ratio] 34.95 kg/m2 [facility] Nurse [facility] 08-18-2024 10:28-0400 Body weight 95.25 kg [facility] Nurse [facility] 01-10-2023 14:29-0500 Body height 165.1 cm Fei Canales MD Work Phone: [employer] [facility] 01-10-2023 14:29-0500 Body mass index (BMI) [Ratio] 34.35 kg/m2 Fei Canales MD Work Phone: [employer] [facility] 01-10-2023 14:29-0500 Body temperature 98.49 [degF] Fei Canales MD Work Phone: [employer] [facility] [employer] 01-10-2023 14:29-0500 Body weight 93.62 kg Fei Canales MD Work Phone: [facility] 01-10-2023 14:29-0500 Diastolic blood pressure 79 mm[Hg] Fei Canales MD Work Phone: [employer] [facility] 01-10-2023 14:29-0500 Heart rate 75 /min Fei Canales MD Work Phone: [employer] [facility] 01-10-2023 14:29-0500 Respiratory rate 16 /min Fei Canales MD Work Phone: [facility] 01-10-2023 14:29-0500 SaO2% (BldA) [Mass fraction] 99 % Fei Canales MD Work Phone: [facility] 01-10-2023 14:29-0500 Systolic blood pressure 140 mm[Hg] Fei Canales MD Work Phone: [facility] 12-08-2022 11:51-0500 Blood Pressure Location Keyon DAVIS [facility] 12-08-2022 11:51-0500 Body temperature 98.24 [degF] Garfieldsarah DAVIS [facility] 12-08-2022 11:51-0500 Diastolic blood pressure 78 mm[Hg] Keyon DAVIS [facility] [place] 12-08-2022 11:51-0500 Heart rate 84 /min Keyon DAVIS [facility] Kim 12-08-2022 11:51-0500 Respiratory rate 16 /min Keyon DAVIS [facility] 12-08-2022 11:51-0500 SaO2% (BldA) [Mass fraction] 100 % Keyon DAVIS [facility] 12-08-2022 11:51-0500 Systolic blood pressure 114 mm[Hg] Keyon BROWN [facility] 12-04-2022 16:32-0500 Body mass index (BMI) [Ratio] 33.66 kg/m2 Jason Tracy MD Work Phone: [facility] 12-04-2022 16:32-0500 Body temperature 98.49 [degF] Jason Tracy MD Work Phone: [facility] 12-04-2022 16:32-0500 Body weight 91.76 kg Jason Tracy MD Work Phone: [facility] 12-04-2022 16:32-0500 Diastolic blood pressure 75 mm[Hg] Jason Tracy MD Work Phone: [facility] 12-04-2022 16:32-0500 Heart rate 91 /min Jason Tracy MD Work Phone: [facility] 12-04-2022 16:32-0500 Respiratory rate 16 /min Jason Tracy MD Work Phone: [facility] 12-04-2022 16:32-0500 SaO2% (BldA) [Mass fraction] 99 % Jason Tracy MD Work Phone: [facility] [employer] 12-04-2022 16:32-0500 Systolic blood pressure 123 mm[Hg] Jason Tracy MD Work Phone: [facility] [employer] 06-01-2022 12:50-0400 Blood Pressure Location Meena Siddhartha [facility] 06-01-2022 12:50-0400 Body temperature 96.98 [degF] Meena Siddhartha [facility] 06-01-2022 12:50-0400 Diastolic blood pressure 60 mm[Hg] Meena Siddhartha [facility] 06-01-2022 12:50-0400 Heart rate 88 /min Meena Carl [facility] 06-01-2022 12:50-0400 SaO2% (BldA) [Mass fraction] 97 % Meena Carl [facility] 06-01-2022 12:50-0400 Systolic blood pressure 122 mm[Hg] Meena Carl [facility] 09-14-2021 10:15-0400 Body mass index (BMI) [Ratio] 31.62 kg/m2 Keyon Wilkinson MD Work Phone: [employer] Work Phone: 09-14-2021 10:15-0400 Body weight 86.18 kg Keyon Wilkinson MD Work Phone: [employer] Work Phone: 09-14-2021 10:14-0400 Body height 165.1 cm Keyon Wilkinson MD Work Phone: [employer] Work Phone: 09-14-2021 10:14-0400 Body temperature 98.2 [degF] Keyon Wilkinson MD Work Phone: [employer] Work Phone: 09-14-2021 10:14-0400 Diastolic blood pressure 93 mm[Hg] Keyon Wilkinson MD Work Phone: [employer] Work Phone: 09-14-2021 10:14-0400 Heart rate 91 /min Keyon Wilkinson MD Work Phone: [employer] Work Phone: 09-14-2021 10:14-0400 Respiratory rate 20 /min Keyon Wilkinson MD Work Phone: [employer] Work Phone: 09-14-2021 10:14-0400 SaO2% (BldA) [Mass fraction] 96 % Keyon Wilkinson MD Work Phone: [employer] Work Phone: 09-14-2021 10:14-0400 Systolic blood pressure 131 mm[Hg] Keyon Wilkinson MD Work Phone: [employer] Work Phone: Encounters Encounter Date Encounter Type Care Provider Facility Start: 02-14-2025 End: 02-14-2025 Subsequent hospital visit by physician John Partida DO Work Phone: [facility] Start: 02-13-2025 End: 02-13-2025 Office outpatient visit 15 minutes Gary Enriqueta DO Work Phone: [facility] Comment on above: Third trimester preg wily; 32 weeks gestation of ; Excessive growth affecting management of , antepartum, single or unspecified fetus Start: 02-13-2025 End: 02-13-2025 ambulatory GARY CAMPBELLO Not Available Start: 01-30-2025 End: 01-30-2025 ambulatory GENEVIEVE CALDERON Not Available Start: 01-29-2025 End: 01-29-2025 ambulatory JOHN PARTIDA [facility] Start: 01-29-2025 End: 01-29-2025 Subsequent hospital visit [...] ENRIQUETA Not Available Start: 01-15-2025 End: 01-15-2025 [facility] Start: 01-15-2025 End: 01-15-2025 Subsequent hospital visit by physician John Partida DO Work Phone: [facility] Comment on above: Arrived Start: 01-12-2025 End: 01-12-2025 [facility] Start: 01-12-2025 End: 01-12-2025 Subsequent hospital visit by physician John Partida DO Work Phone: [facility] Comment on above: Arrived Start: 01-10-2025 End: 01-10-2025 [facility] Start: 01-10-2025 End: 01-10-2025 Subsequent hospital visit by physician John Partida DO Work Phone: [facility] Comment on above: Arrived Start: 01-05-2025 End: 01-05-2025 [facility] Start: 01-05-2025 End: 01-05-2025 Subsequent hospital visit by physician John Partida DO Work Phone: [facility] Comment on above: Arrived Start: 01-02-2025 End: 01-02-2025 [facility] Start: 01-02-2025 End: 01-02-2025 Subsequent hospital visit by physician John Partida DO Work Phone: [facility] Comment on above: Arrived Start: 12-29-2024 End: 12-29-2024 [facility] Start: 12-29-2024 End: 12-29-2024 Subsequent hospital visit by physician John Partida DO Work Phone: [facility] Comment on above: Arrived Start: 12-27-2024 End: 12-27-2024 [facility] Start: 12-27-2024 End: 12-27-2024 Subsequent hospital visit by physician John Partida DO Work Phone: [facility] Comment on above: Arrived Start: 12-25-2024 End: 12-25-2024 Clinisync Result Encounter Gary Enriqueta DO Work Phone: [facility] Unsolicited Start: 12-25-2024 End: 12-25-2024 Clinisync Result Encounter Gary Enriqueta DO Work Phone: [facility] Unsolicited Start: 12-22-2024 End: 12-22-2024 [facility] Start: 12-22-2024 End: 12-22-2024 Subsequent hospital visit by physician John Partida DO Work Phone: [facility] Comment on above: Arrived Start: 12-20-2024 End: 12-20-2024 [facility] Start: 12-20-2024 End: 12-20-2024 Subsequent hospital visit by physician John Partida DO Work Phone: [facility] Comment on above: Arrived Start: 12-19-2024 End: 12-19-2024 Clinisync Result Encounter Genevieve MARIA Work Phone: [facility] Unsolicited Start: 12-19-2024 End: 12-19-2024 Clinisync Result Encounter Genevieve MARIA Work Phone: [facility] Unsolicited Start: 12-19-2024 End: 12-19-2024 Office outpatient visit 15 minutes Gary Robison DO Work Phone: [facility] Comment on above: Second trimester pre gnancy; 24 weeks gestation of ; Diabetes mellitus screening; Low platelet count (CMS/HCC); Thrombocytopenia affecting , antepartum (CMS/HCC); 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, antepartum Start: 12-19-2024 End: 12-19-2024 ambulatory GARY ROBISON Not Available Start: 12-15-2024 End: 12-15-2024 ambulatory [facility] Start: 12-13-2024 End: 12-13-2024 [facility] Start: 12-13-2024 End: 12-13-2024 Subsequent hospital visit by physician John Partida DO Work Phone: [facility] Comment on above: Arrived Start: 12-06-2024 End: 12-06-2024 [facility] Start: 12-06-2024 End: 12-06-2024 Subsequent hospital [...] by physician John Partida DO Work Phone: [facility] Start: 10-17-2024 End: 10-29-2024 Clinisync [...] encounter status Gary Enriqueta DO Work Phone: [facility] Start: 10-12-2024 End: 10-12-2024 ambulatory [facility] Start: 10-12-2024 End: 10-12-2024 Subsequent hospital visit by physician John Partida DO Work Phone: [facility] Comment on above: Arrived Start: 10-10-2024 End: 10-10-2024 ambulatory [facility] Start: 10-10-2024 End: 10-10-2024 Subsequent hospital visit by physician John Partida DO Work Phone: [facility] Comment on above: Arrived Start: 10-04-2024 End: 10-04-2024 Subsequent hospital visit by physician John Partida DO Work Phone: [facility] Start: 10-04-2024 ambulatory [place] Start: 09-18-2024 End: 09-18-2024 Office [...] Department Unsolicited Start: 08-07-2024 End: 08-07-2024 [facility]: 08-07-[facility]24 End: 08-07-2024 Subsequent hospital visit by physician Óscar Villagran DNP Work Phone: [facility] Start: 08-02-2024 End: 08-02-2024 Clinisync Result Encounter Gary Enriqueta DO Work Phone: [facility] Unsolicited Start: 08-02-2024 End: 08-02-2024 Clinisync Result Encounter Gary Enriqueta DO Work Phone: [facility] Unsolicited Start: 08-02-2024 End: 08-02-2024 [facility] Start: 07-31-2024 End: 07-31-2024 Clinisync Result Encounter Gary Enriqueta DO Work Phone: [facility] Unsolicited Start: 07-31-2024 End: 07-31-2024 Clinisync Result Encounter Gary Enriqueta DO Work Phone: [facility] Unsolicited Start: 07-31-2024 End: 07-31-2024 ambulatory [facility] Start: 07-31-2024 End: 07-31-2024 Subsequent hospital visit by physician Óscar Villagran DNP Work Phone: [facility] Start: 07-29-2024 End: 07-29-2024 Clinisync Result Encounter Gary Enriqueta DO Work Phone: [facility] Unsolicited Start: 07-29-2024 End: 07-29-2024 Clinisync Result Encounter Gary Enriqueta DO Work Phone: [facility] Unsolicited Start: 07-29-2024 End: 07-29-2024 ambulatory [facility] Start: 07-27-2024 End: 07-27-2024 Clinisync Result Encounter Gary Enriqueta DO Work Phone: [facility] Unsolicited Start: 07-27-2024 End: 07-27-2024 Clinisync Result Encounter Gary Enriqueta DO Work Phone: [facility] Unsolicited Start: 07-27-2024 End: 07-27-2024 [facility] Start: 07-27-2024 End: 07-27-2024 Subsequent hospital visit by physician John Partida DO Work Phone: [facility] Comment on above: Arrived Start: 07-25-2024 End: 07-25-2024 ambulatory [facility] Start: 07-21-2024 End: 07-21-2024 [facility] Start: 07-19-2024 End: 07-19-2024 ambulatory [facility] Start: 07-13-2024 End: 07-13-2024 Subsequent hospital visit by physician John Partida DO Work Phone: [facility] Comment on above: Arrived Start: 07-13-2024 End: 07-13-2024 ambulatory [facility] Start: 07-06-2024 End: 07-06-2024 Subsequent hospital visit by physician John Partida DO Work Phone: [facility] Start: 06-29-2024 End: 06-29-2024 ambulatory [facility] Start: 06-29-2024 End: 06-29-2024 Subsequent hospital visit by physician John Partida DO Work Phone: [facility] Comment on above: Arrived Start: 06-26-2024 End: 06-26-2024 [facility] Start: 06-22-2024 End: 06-22-2024 ambulatory [facility] Start: 06-20-2024 End: 06-20-2024 ambulatory [facility] Start: 06-16-2024 End: 06-16-2024 ambulatory [facility] Start: 06-14-2024 End: 06-14-2024 ambulatory [facility] Start: 06-08-2024 End: 06-08-2024 [facility] Start: 06-08-2024 End: 06-08-2024 ambulatory [facility] Start: 05-22-2024 End: 05-24-2024 ambulatory JOHN PARTIDA [facility] Start: 05-22-2024 End: 05-24-2024 Subsequent hospital visit by physician Óscar Villagran DNP Work Phone: [facility] Start: 03-06-2024 End: 03-06-2024 ambulatory GARY ROBISON Not Available Start: 03-04-2024 End: 03-04-2024 ambulatory [facility] Start: 03-04-2024 Emergency department patient visit [facility] Start: 04-09-[address] NONE LISTED REQUEST Facility: Start: 01-29-2023 End: 01-31-2023 Subsequent hospital visit by physician Neeru Additional Xray At [facility] Comment on above: Other closed fractur e of proximal end of right fibula with routine healing, subsequent encounter Start: 01-29-2023 End: 01-31-2023 Subsequent hospital visit by physician Keyon Davis MD Work Phone: [facility] Start: 01-10-2023 End: 01-10-2023 Emergency department patient visit Fei Canales MD Work Phone: [facility] ED Comment on above: Injury of right ankl e, initial encounter (Primary Dx) Start: 12-08-2022 End: 12-09-2022 ambulatory Keyon DAVIS Facility:[facility] Start: 12-08-2022 End: 12-08-2022 Patient encounter procedure Keyon DAVIS [facility] [place] Start: 12-04-2022 End: 12-04-2022 Emergency department patient visit Jason Tracy MD Work Phone: [facility] ED Comment on above: Viral illness (Prima ry Dx) Start: 09-03-2022 End: 09-03-2022 Emergency department patient visit Evan Moyer Facility:[facility] Start: 06-19-2022 End: 06-21-2022 Subsequent hospital visit by physician [facility] Additional Xray [facility] Comment on above: Left wrist pain Start: 06-01-2022 End: 06-02-2022 ambulatory [employer] Meena Carl Facility:[facility] Start: 06-01-2022 End: 06-01-2022 Patient encounter procedure Meena Carl [facility] Start: 05-28-2022 ambulatory [employer] Meena Carl Faci lity:[facility] Start: 09-14-2021 End: 09-14-2021 Emergency department patient visit Keyon Wilkinson MD Work Phone: [facility] ED Comment on above: Subacute bronchitis (Primary Dx) Procedures Date Procedure Procedure Detail Performing Clinician Start: 02-13-2025 Urnls dip stick/tabl et rgnt non-auto w/o micrscp Gary Enriqueta DO Work Phone: Start: 01-22-2025 ALL PLATELET COUNT Core y [...] Phone: Start: 07-27-2024 ALL HCG SERUM,QUALITATIVE Gary Enriqueta DO Work Phone: Start: 05-26-2023 Cytp cerv/vag [...] 06-19-2022 Radex wrist complete minimum 3 views sIrael Rehman MD Work Phone: Start: 11-22-2014 Cholecystectomy Meena Carl Tonsillectomy Meena Carl Tonsils and adenoids postoperative education Meena Carl Plan of Treatment Date Care Activity Detail Author Start: 2069 Respiratory Syncytia l Virus (RSV) or age 60 yrs+ (1 - 1-dose 75+ series) Respiratory Syncytial Virus (RSV) or age 60 yrs+ (1 - 1-dose 75+ series) [facility] Start: 2054 Respiratory Syncytia l Virus (RSV) or age 60 yrs+ (1 - 1-dose 60+ series) Respiratory Syncytial Virus (RSV) or age 60 yrs+ (1 - 1-dose 60+ series) [facility] Start: 05-26-2028 Screening for malign ant neoplasm of cervix HPV/Cotest [facility] Start: 10-17-2027 Screening for malign ant neoplasm of cervix [facility] Start: 03-14-2025 Depression Screen Depression Screen [facility] Start: 02-28-2025 End: 02-28-2025 Patient encounter procedure 02/28/2025 11:10 AM EDT Routine [facility] [address] [place] [address] [place] [address] Gary Robison DO [address] [place] [address] [facility] Start: 02-28-2025 End: 02-28-2025 Professional / ancillary services management 02/28/2025 10:30 AM EDT Ancillary Procedure [facility] [address] [facility] [address] [facility] Start: 02-14-2025 End: 02-14-2025 Patient encounter procedure 02/14/2025 9:00 AM EDT Appointment [facility] [address] [place] [id number] John Partida, DO [address] [place] [address] Clara Castrejon, PT *[facility] 15 of 30 Sacral Pain, [facility] Comment on above: *[facility] 15 of 30 Sacral Pain, Start: 02-13-2025 End: 02-13-2026 US for US OB follow up transabdominal approach Imaging Routine Excessive growth affecting management of , antepartum, single or unspecified fetus Expected: 02/13/2025, Expires: 02/13/2026 [facility] Work Phone: Comment on above: Expected: 02/13/2025 , Expires: 02/13/2026 Start: 01-30-2025 End: 01-30-2025 Patient encounter procedure 01/30/2025 8:50 AM EDT Routine [facility] [address] [facility] [address] Genevieve Calderon PA [address] [place], [place] [id number] [facility] Start: 01-29-2025 End: 01-29-2025 Patient encounter procedure 01/29/2025 9:00 AM EDT Appointment [facility] [address] [place] [address] John Partida, DO [address] [place] [address] Clara Castrejon, PT *[employer] 15 of 30 Sacral Pain, [facility] Comment on above: *[employer] 15 of 30 Sacral Pain, Start: 01-18-2025 End: 01-18-2025 Patient encounter procedure 01/18/2025 8:00 AM EST Appointment [facility] [address] [place] [address] John Partida, DO [address] [place] [address] Clara Castrejon, PT *[facility] 14 of 30 Sacral Pain, [facility] Comment on above: *[facility] 14 of 30 Sacral Pain, Start: 01-16-2025 End: 01-16-2025 Patient encounter procedure [facility] Comment on above: Arrived Start: 01-16-2025 End: 01-16-2025 Professional / ancillary services management 01/16/2025 8:00 AM EST Ancillary Procedure [facility] [address] [place] [address] [place] [id number] [facility] Start: 01-15-2025 End: 01-15-2025 Patient encounter procedure 01/15/2025 9:00 AM EST Appointment [facility] [address] [place] [address] John Partida, DO [address] [place] [address] Clara Casrtejon, PT *[facility]ource 13 of 30 Sacral Pain, [...] Hospital Encounter [facility] [address] [place] [address] John Partida, DO [address] [facility] [place] [address] Lauryn Edwards [facility] Start: 01-02-2025 End: 01-02-2025 Patient encounter procedure 01/02/2025 8:00 AM EST Appointment [facility] [address] [place] [address] John Partida, DO [address] [place] [address] Clara Castrejon, PT *[facility] 8 of 30 Sacral Pain, [facility] Comment on above: *[facility]ource 8 of 30 Sacral Pain, Start: 12-29-2024 End: 12-29-2024 Patient encounter procedure 12/29/2024 11:15 AM EST Appointment [facility] [address] [place] [address] John Partida, DO [address] [place] [address] Clara Castrejon, PT *[facility] 7 of 30 Sacral Pain, [facility] Comment on above: *[facility]aresource 7 of 30 Sacral Pain, Start: 12-27-2024 End: 12-27-2024 Patient encounter procedure 12/27/2024 9:00 AM EST Appointment [facility] [address] [place] [address] John Partida, DO [address] [place] [address] Austen Puga PTA *[facility] 6 of 30 Sacral Pain, [facility] Comment on above: *[facility]ource 6 of 30 Sacral Pain, Start: 12-22-2024 End: 12-22-2024 Patient encounter procedure 12/22/2024 8:00 AM EST Appointment [facility] [address] [place] [address] John Partida, DO [address] [facility] [place] [address] Austen Puga PTA *[facility] 5 of 30 Sacral Pain, [facility] Comment on above: *[facility] 5 of 30 Sacral Pain, Start: 12-20-2024 End: 12-20-2024 Patient encounter procedure 12/20/2024 9:00 AM EST Appointment [facility] [address] [place] [address] John Partida, DO [address] [facility] [place] [address] Clara Castrejon, PT *[facility] 4 of 30 Sacral Pain, [facility] Comment on above: *[facility] 4 of 30 Sacral Pain, Start: 12-19-2024 End: 12-19-2024 Patient encounter procedure 12/19/2024 9:50 AM EST Routine [facility] [address] [facility] [address] Gary Robison DO [address] [place] [address] [facility] Start: 12-15-2024 End: 12-15-2024 Patient encounter procedure 12/15/2024 8:15 AM EST Appointment [facility] [address] [place] [address] John Partida, DO [address] [place] [address] Clara Castrejon, PT *[facility] 3 of 30 Sacral Pain, [facility] Comment on above: *[facility] 3 of 30 Sacral Pain, Start: 12-13-2024 End: 12-13-2024 Patient encounter procedure 12/13/2024 9:45 AM EST Appointment [facility] [address] [place] [address] John Partida, DO [address] [place] [address] Trinity Browning *[facility] 2 of 30 Sacral Pain, [facility] Comment on above: *[facility] 2 of 30 Sacral Pain, Start: 2024 Screening for malign ant neoplasm of cervix [facility] Start: 11-20-2024 End: 11-20-2025 CBC panel - Blood by Automated count CBC Lab Routine Diabetes mellitus screening Expected: 11/20/2024 (Approximate), Expires: 11/20/2025 [facility] Work Phone: Comment on above: Expected: 11/20/2024 (Approximate), Expires: 11/20/2025 Start: 11-20-2024 End: 11-20-2025 Measurement of glucose 1 hour after glucose challenge for glucose tolerance test Glucose tolerance, 1 hour Lab Routine Diabetes mellitus screening Expected: 11/20/2024 (Approximate), Expires: 11/20/2025 [facility] Comment on above: Expected: 11/20/2024 (Approximate), Expires: 11/20/2025 Start: 11-20-2024 End: 11-20-2024 Patient encounter procedure 11/20/2024 9:20 AM EST Routine [facility] [address] [facility] [place] [phone] Genevieve Calderon PA [address] [place] [address] [facility] Start: 11-20-2024 End: 11-20-2024 Professional / ancillary services management 11/20/2024 8:00 AM EST Ancillary Procedure [facility] [address] [facility] [phone] [facility] Start: 10-17-2024 End: 01-17-2025 [...] EST Routine [facility] [address] [facility] [phone] Gary Robison, DO [address] [facility] [place] [address] [facility] Start: 10-17-2024 End: 10-17-2024 Patient encounter procedure 10/17/2024 8:15 AM EST Appointment [facility] [address] [place] [address] John Partida, DO [address] [place] [address] Trinity Browning 16 30 Sacral Pain, [facility] Comment on above: 16 of 30 Sacral Pain , Start: 10-12-2024 End: 10-12-2024 Patient encounter procedure 10/12/2024 8:00 AM EST Appointment [facility] [address] [place] [address] John Partida, DO [address] [facility] [place] [address] Clara Castrejon, PT 15 of 30 Sacral Pain, [facility] Comment on above: 15 of 30 Sacral Pain , Start: 10-10-2024 End: 10-10-2024 Patient encounter procedure 10/10/2024 9:30 AM EST Appointment [facility] [address] [place] [address] John Partida, DO [address] [facility] [place] [address] Clara Castrejon, PT 14 of 30 Sacral Pain, [facility] Comment on above: 14 of 30 Sacral Pain , Start: 09-18-2024 End: 09-18-2024 Patient encounter procedure 09/18/2024 10:40 AM EDT Routine [facility] [address] [facility] [phone] Gary Robison DO [address] [facility] [place] [address] [facility] Start: 08-18-2024 End: 08-18-2025 [...] EDT Initial [facility] [address] [facility] [address] [facility] Start: 08-18-2024 End: 08-18-2024 Professional / ancillary services management 08/18/2024 9:00 AM EDT Ancillary Procedure [facility] [address] [facility] [place] [address] [facility] Start: 07-23-2024 COVID-19 Vaccine ( season) COVID-19 Vaccine ( season) [facility] Start: 07-23-2024 COVID-19 Vaccine ( season) COVID-19 Vaccine ( season) [facility] Start: 07-23-2024 Influenza vaccination Influenza Vacc ine (#1) [facility] Start: 07-19-2024 End: 07-19-2024 Patient encounter procedure 07/19/2024 8:[address] [facility] [address] [place] [address] John Partida, DO [address] [place] [address] Asia Mix, PT [address] [place] [address] [facility] Therapy Start: 07-13-2024 End: 07-13-[address] [facility] Start: 07-06-2024 End: 07-06-2024 Patient encounter procedure 07/06/2024 9:[address] [facility] [address] [facility] [place] [address] John Partida, DO [address] [place] [address] Asia Mix, PT [address] [facility] [place] [address] [facility] Therapy Start: 06-22-2024 Influenza vaccination Flu vaccine (# 1) [facility] Start: 07-23-2023 COVID-19 Vaccine ( season) COVID-19 Vaccine ( season) [facility] Start: 07-23-2022 Influenza vaccination Flu vaccine (# 1) [facility] Start: 06-22-2022 Influenza vaccination Flu vaccine (# 1) [facility] Start: 07-23-2021 Influenza vaccination Flu vaccine (# 1) [facility] Work Phone: Start: 08-02-2017 DTaP/Tdap/Td vaccine (2 - Td or Tdap) DTaP/Tdap/Td vaccine (2 - Td or Tdap) [facility] Start: 2015 Screening for malign ant neoplasm of cervix Pap smear [facility] Start: 2013 DTaP/Tdap/Td vaccine (1 - Tdap) DTaP/Tdap/Td vaccine (1 - Tdap) [facility] Phone: Start: 2013 Hepatitis B vaccine (1 of 3 - 19+ 3-dose series) Hepatitis B vaccine (1 of 3 - 19+ 3-dose series) [facility] Start: 2012 Hepatitis C screening Hepatitis C sc reen [facility] Start: 2009 HIV screening [facility] Start: 2006 COVID-19 Vaccine (1) COVID-19 Vaccin e (1) [facility] Start: 2006 [facility] Screen [facility] Start: 2005 HPV vaccine (1 - 2-d ose series) HPV vaccine (1 - 2-dose series) [facility]: Start: 1998 Varicella vaccine (2 of 2 - 2-dose childhood series) Varicella vaccine (2 of 2 - 2-dose childhood series) [facility] Start: 1995 Varicella vaccine (1 of 2 - 2-dose childhood series) Varicella vaccine (1 of 2 - 2-dose childhood series) [facility]: Start: 05-30-1995 COVID-19 Vaccine (#1) COVID-19 Vacci ne (#1) [facility] Start: 1994 Hepatitis B vaccine (1 of 3 - 3-dose series) Hepatitis B vaccine (1 of 3 - 3-dose series) [facility] Start: 1994 Hepatitis C screening Hepatitis C ar thaddeusn [facility] Phone: Bacteria identified in Urine by Culture Urine culture Microbiology Routine Missed menses Ordered: 08/18/2024 [facility] Comment on above: Ordered: 08/18/2024 CBC W Auto Different ial panel - Blood CBC and differential Lab Routine Missed menses , unspecified gestational age Ordered: 08/18/2024 [facility] Comment on above: Ordered: 08/18/2024 CHLAMYDIA TRACHOMATI S (GENITO/STI) CHLAMYDIA TRACHOMATIS (GENITO/STI) Lab Routine Vaginal discharge STD exposure Ordered: 10/17/2024 [facility] Comment on above: Ordered: 10/17/2024 Cytology Cervical or vaginal smear or scraping study Pap Smear Pathology and Cytology Routine Encounter for gynecological examination without abnormal finding Ordered: 10/17/2024 [facility] Comment on above: Ordered: 10/17/2024 Hemoglobin A1c/Hemoglobin.total in Blood Hemoglobin A1c Lab Routine Missed menses , unspecified gestational age Ordered: 08/18/2024 [facility] Comment on above: Ordered: 08/18/2024 Hepatitis B virus surface Ag [Presence] in Serum or Plasma by Immunoassay Hepatitis B surface antigen Lab Routine Missed menses , unspecified gestational age Ordered: 08/18/2024 [facility] Comment on above: Ordered: 08/18/2024 Hepatitis C virus Ab [Presence] in Serum or Plasma by Immunoassay Hepatitis C antibody Lab Routine Missed menses , unspecified gestational age Ordered: 08/18/2024 [facility] Comment on above: Ordered: 08/18/2024 HIV-1/HIV-2 antigen/antibody combination immunoassay HIV-1 and HIV-2 antibodies Lab Routine Missed menses , unspecified gestational age Ordered: 08/18/2024 [facility] Comment on above: Ordered: 08/18/2024 Neisseria gonorrhoea e DNA [Presence] in Unspecified specimen by WADE with probe detection Neisseria gonorrhea DNA probe, direct Lab Routine Vaginal discharge STD exposure Ordered: 10/17/2024 [facility] Comment on above: Ordered: 10/17/2024 Platelets [#/volume] in Blood Platelet count Lab Routine Low platelet count (CMS/HCC) Ordered: 12/19/2024 [facility] Work Phone: Comment on above: Ordered: 12/19/2024 Reagin Ab [Presence] in Serum by RPR RPR Lab Routine Missed menses , unspecified gestational age Ordered: 08/18/2024 [facility] Comment on above: Ordered: 08/18/2024 Rubella antibody, IgG Rubella an tibody, IgG Lab Routine Missed menses , unspecified gestational age Ordered: 08/18/2024 [facility] Comment on above: Ordered: 08/18/2024 SURESWAB(R) ADVANCED VAGINITIS PLUS, TMA SURESWAB(R) ADVANCED VAGINITIS PLUS, TMA Pathology and Cytology Routine Vaginal discharge STD exposure Ordered: 10/17/2024 [facility] Comment on above: Ordered: 10/17/2024 Immunizations Immunization Date Immunization Notes Care Provider Jaci masterson 02-16-2008 Hep A, unspecified formulation Meena Aguilarell [facility] 08-02-2007 Hep A, unspecified formulation Meena Carl [facility] 08-02-2007 meningococcal ACWY vaccine, unspecified formulation Meena Carl [facility] 08-02-2007 tetanus toxoid, reduced diphtheria toxoid, and acellular pertussis vaccine, adsorbed Meena Carl [facility] 08-19-2000 DTaP, unspecified formulation Meena Carl [facility] 08-19-2000 measles, mumps and rubella virus vaccine Meena Carl [facility] 10-10-1997 varicella virus vaccine Meena Carl [facility] 03-09-1996 DTaP, unspecified formulation Meena Carl [facility] 03-09-1996 Hib, unspecified formulation Meena Aguilarell [facility] 03-09-1996 measles, mumps and rubella virus vaccine Meenazachariah Aguilarell [facility] 06-11-1995 DTP-Hib Meena Carl [facility] 06-11-1995 hepatitis B vaccine, pediatric or pediatric/adolescent dosage Meena Aguilarell [facility] 04-05-1995 DTP-Hib Meena Aguilarell [facility] 02-01-1995 DTP-Hib Meena Aguilarell [facility] 01-04-1995 hepatitis B vaccine, pediatric or pediatric/adolescent dosage Meena Carl [facility] 1994 hepatitis B vaccine, pediatric or pediatric/adolescent dosage Meena Carl [facility] NEGATED: Highlighted row has not occurred!12-08-2022 influenza virus vaccine, unspecified formulation Keyon DAVIS [facility] Stella Alvarez NEGATED: Highlighted row has not occurred!12-08-2022 SARS-CoV-2 mRNA (tozinameran 5y-11y) vaccine Keyon DAVIS [facility] Payers Date Payer Category Payer Medicaid [employer] [place] [id number] 2022-Present [address] [place] [address] [id number] 2022 Private Health Insurance [facility] MEDICAID [id number] 2014 Unknown [id number] 1.2.840.649098.1.13.239.2. 7.3.087547.315 1994 Unknown [id number] 2.16.840.1.720276.3.579.2. 727 1994 Unknown [id number] 2.16.840.1.468447.3.579.2. 727 1994 Unknown [id number] 2.16.840.1.449284.3.579.2. 727 1994 Unknown [id number] 2.16.840.1.038696.3.579.2. 727 1994 Unknown [id number] 2.16.840.1.699942.3.579.2. 593 1994 Unknown [id number] 2.16.840.1.919152.3.579.2. 1259 1994 Unknown [id number] 2.16.840.1.446390.3.579.2. 1259 1994 Unknown [id number] 2.16.840.1.495522.3.579.2. 9 1994 Unknown [id number] 2.16.840.1.968240.3.579.2. 1259 1994 Unknown [id number] 2.16.840.1.349348.3.579.2. 9 1994 Unknown [id number] 2.16.840.1.079758.3.579.2. 1259 1994 Unknown [id number] 2.16.840.1.206033.3.579.2. 1259 1994 Unknown [id number] 2.16.840.1.765479.3.579.2. 1259 1994 Unknown [id number] 2.16.840.1.467187.3.579.2. 174 1994 Unknown [id number] 2.16.840.1.865410.3.579.2. 174 1994 Unknown [id number] 2.16.840.1.984557.3.579.2. 174 1994 Unknown [id number] 2.16.840.1.666311.3.579.2. 174 1994 Unknown [id number] 2.16.840.1.685268.3.579.2. 174 1994 Unknown [id number] 2.16.840.1.968483.3.579.2. 174 1994 Unknown [id number] 2.16.840.1.534307.3.579.2. 174 1994 Unknown [id number] 2.16.840.1.290734.3.579.2. 174 1994 Unknown [id number] 2.16.840.1.830248.3.579.2. 174 1994 Unknown [id number] 2.16.840.1.046763.3.579.2. 174 1994 Unknown [id number] 2.16.840.1.178630.3.579.2. 174 1994 Unknown [id number] 2.16.840.1.463474.3.579.2. 174 1994 Unknown [id number] 2.16.840.1.563299.3.579.2. 174 1994 Unknown [id number] 2.16.840.1.157642.3.579.2. 174 1994 Unknown [id number] 2.16.840.1.305559.3.579.2. 174 1994 Unknown [id number] 2.16.840.1.297886.3.579.2. 174 1994 Unknown [id number] 2.16.840.1.339334.3.579.2. 174 1994 Unknown [id number] 2.16.840.1.266254.3.579.2. 174 1994 Unknown [id number] 2.16.840.1.744977.3.579.2. 174 1994 Unknown [id number] 2.16.840.1.231517.3.579.2. 174 1994 Unknown [id number] 2.16.840.1.992762.3.579.2. 174 1994 Unknown [id number] 2.16.840.1.436992.3.579.2. 174 1994 Unknown [id number] 2.16.840.1.116352.3.579.2. 174 1994 Unknown [id number] 2.16.840.1.861410.3.579.2. 174 1994 Unknown [id number] 2.16.840.1.208248.3.579.2. 174 1994 Unknown [id number] 2.16.840.1.738751.3.579.2. 174 1994 Unknown [id number] 2.16.840.1.549641.3.579.2. 174 1994 Unknown [id number] 2.16.840.1.328148.3.579.2. 174 1994 Unknown [id number] 2.16.840.1.792613.3.579.2. 174 1994 Unknown [id number] 2.16.840.1.467937.3.579.2. 174 1994 Unknown [id number] 2.16.840.1.118466.3.579.2. 174 1994 Unknown [id number] 2.16.840.1.972143.3.579.2. 174 1994 Unknown [id number] 2.16.840.1.095021.3.579.2. 174 1994 Unknown [id number] 2.16.840.1.612223.3.579.2. 174 1994 Unknown [id number] 2.16.840.1.615615.3.579.2. 174 1994 Unknown [id number] 2.16.840.1.264328.3.579.2. 174 1994 Unknown [id number] 2.16.840.1.910958.3.579.2. 174 1994 Unknown [id number] 2.16.840.1.006453.3.579.2. 174 1994 Unknown [id number] 2.16.840.1.523590.3.579.2. 174 1994 Unknown [id number] 2.16.840.1.295992.3.579.2. 174 1959 Unknown [id number] 1.2.840.481237.1.13.239.2. 7.3.334749.315 Social History Date Type Detail Facility Start: 09-14-2021 End: 09-18-2024 Tobacco smoking status [facility] Never smoker [facility] Phone: Start: 09-14-2021 End: 09-18-2024 Tobacco use and exposure Never used [facility] Start: 09-14-2021 End: 08-21-2024 Alcohol intake Current non-drinker of alcohol (finding) [facility] Phone: Start: 1995 Sex Assigned At Not on file [facility] Phone: Start: 11-24-2022 End: 01-10-2023 Exposure to SARS-CoV-2 (event) Not sure [facility] Tobacco smoking status Never [facility] Start: 07-19-2023 End: 02-07-2025 Sex Assigned At Female [facility] Start: 12-04-2022 End: 01-10-2023 History SDOH Alcohol Frequency 1 [facility] Work Phone: Start: 07-19-2023 End: 02-07-2025 History of Social function [facility] How often to you hav e a drink containing alcohol? Never [facility] (I/We) worried artemio smith (my/our) food would run out before (I/we) got money to buy more. Never true [employer] At any time in the p ast 12 months, were you homeless or living in group home [including now]? No [facility] Start: 1995 Sex Assigned At Female [facility] Start: 07-19-2023 Gender identity Identifies as female gender (finding) [facility] Start: 07-19-2023 Sexual orientation Heterosexual (finding) [facility] Start: 07-16-2024 [facility] Start: 09-18-2024 End: 02-13-2025 Alcoholic beverage intake Lifetime non-drinker (finding) [facility] Start: 01-03-2013 Sex Female (finding) [facility] Functional Status Date Assessment Result Facility 12-08-2022 Functional Status N/A [facility] [place] 06-01-2022 Functional Status N/A [facility] Clinical Notes 06-01-2022 to 02-14-2025 Clara Castrejon, PT - 02/14/2025 9:00 AM Chata Olea LPN - 02/13/2025 9:00 AM Clara Seals, PT - 01/29/2025 9:00 AM Chata Olea LPN - 01/16/2025 8:40 AM ESTDischarge Instructions Note Date & Type Note Facility 02-14-2025 History of Present illness Narrative [facility] Date: 02/14/2025 Patient Name: Meena Lucero : 1995 Pt No Showed Appt- Follow up call, left voicemail for patient to call back to reschedule if wants. Clara Castrejon, PT Date: 02/14/2025 documented in this encounter [facility] 02-13-2025 History of Present illness Narrative Reason for Appointment: Patient ID: Meena Lucero is a 29 y.o. female who presents for Routine Visit Patient presents today for Return OB appointment. MEDICATIONS Current Outpatient Medications Medication Instructions omeprazole (PRILOSEC) 20 mg, Oral, Daily before breakfast, Do not crush or chew. pantoprazole (PROTONIX) 40 mg, Oral, Daily before breakfast, Do not crush, chew, or split. 27-1 MG tablet Every 24 hours ALLERGIES [...] nursing note reviewed. Exam conducted with a scrubber system attendant present. Vitals: Estimated body mass index is 38.11 kg/m as calculated from the following: Height as of 04/09/23: 5' 5 . Weight as of this encounter: 229 lb. BP: 120/74 Patient's last menstrual period was 06/23/2024. ASSESSMENT & PLAN ICD-10-CM 1. Third trimester Z34.93 POCT urinalysis dipstick manually resulted 2. 32 weeks gestation of Z3A.32 Return OB: Patient presents today for a routine obstetrics appointment. Patient is currently 32w2d . Patient states she is doing well but has complaints of being tired due to current . Patient has verbalizes frequent movement. labor precautions was discussed/given and patient was instructed to perform kick counts three times a day. Pt given growth ultrasound to have obtained. Orders Placed This Encounter Procedures US OB follow up transabdominal approach POCT urinalysis dipstick manually resulted Follow Up: Patient is to return to office in 2 week for routine OB appointment. Documented by Marlene Olea LPN on behalf of: Gary Robison DO documented in this encounter [facility] 01-29-2025 History of Present illness Narrative Images from the original note were not included. [facility] Daily Note Date: 01/29/2025 Patient Name: Meena Lucero : 1995 (29 y.o.) Referring Provider (secondary): Dr. Partida Diagnosis: R buttock pain, sacral pain Treatment Diagnosis: back pain, SI pain Onset Date: 09/28/24 (Referral) PT Insurance Information: Viss Total # of Visits Approved: 16 Per [...] pelvic stability-Met STG Goal 3 Status:: Met Skilled Nursing Goals Time Frame for Skilled Nursing Goals : 16 [employer] Goal 1: Improve functional mobility with Oswestry score <15/50 (from 22/50) [employer] Goal 2: Decrease R SI pain 4/10 at worst x3 days Treatment Tolerance: Treatment Tolerance: Tolerated treatment well. Post Treatment Pain: 4/10 Time In: 9:00 Time Out : 9:33 Timed Code Treatment Minutes: 33 Minutes Total Treatment Time: 33 Minutes Clara Castrejon, PT Date: 01/29/2025 documented in this encounter [facility] 01-16-2025 History of Present illness Narrative Reason [...] nursing note reviewed. Exam conducted with a scrubber system attendant present. Vitals: Estimated body mass index is [...] Gary Robison DO documented in this encounter [facility] 01-15-2025 History of Present illness Narrative Images from the original note were not included. [facility] Daily Note Date: [...] pelvic stability-Met STG Goal 3 Status:: Met Skilled Nursing Goals Time Frame for Test And Research Reactor Operator Goals : 16 Skilled Nursing Goal 1: Improve functional mobility with Oswestry score <15/50 (from 22/50) Test And Research Reactor Operator Goal 2: Decrease R SI pain 4/10 at worst x3 days Treatment Tolerance: Treatment Tolerance: Tolerated treatment well. Post Treatment Pain: 5/10 Time In: 9:05 Time Out : 9:35 Timed Code Treatment Minutes: 30 Minutes Total Treatment Time: 30 Minutes Clara Castrejon PT Date: 01/15/2025 documented in this encounter [facility] 01-12-2025 History of Present illness Narrative Images from the original note were not included. [facility] Daily Note Date: 01/12/2025 Patient Name: Meena Lucero : 1995 (29 y.o.) Referring Provider (secondary): Dr. Partida Diagnosis: R buttock pain, sacral pain Treatment Diagnosis: back pain, SI pain Onset Date: 09/28/24 (Referral) PT Insurance Information: [facility] Total # of Visits Approved: 16 Per [...] pelvic stability-Met STG Goal 3 Status:: Met Test And Research Reactor Operator Goals Time Frame for Skilled Nursing Goals : 16 Test And Research Reactor Operator Goal 1: Improve functional mobility with Oswestry score <15/50 (from /50) Skilled Nursing Goal 2: Decrease R SI pain 4/10 at worst x3 days Treatment Tolerance: Treatment Tolerance: Tolerated treatment well. Post Treatment Pain: 3/10 Time In: 8:13 Time Out : 8:54 Timed Code Treatment Minutes: 41 Minutes Total Treatment Time: 41 Minutes Clara Castrejon PT Date: 01/12/2025 documented in this encounter [facility] 01-10-2025 History of Present illness Narrative Images from the original note were not included. [facility] Daily Note Date: 01/10/2025 Patient Name: Meena Lucero : 1995 (29 y.o.) Referring Provider (secondary): Dr. Partida Diagnosis: R buttock pain, sacral pain Treatment Diagnosis: back pain, SI pain Onset Date: 09/28/24 (Referral) PT Insurance Information: [facility] Total # of Visits Approved: 16 Per [...] pelvic stability-Met STG Goal 3 Status:: Met Test And Research Reactor Operator Goals Time Frame for Skilled Nursing Goals : 16 Skilled Nursing Goal 1: Improve functional mobility with Oswestry score <15/50 (from 50) Skilled Nursing Goal 2: Decrease R SI pain 4/10 at worst x3 days Treatment Tolerance: Treatment Tolerance: Tolerated treatment well. Post Treatment Pain: 4/10 Time In: 0902 Time Out: 0933 Timed Code Treatment Minutes: 31 Minutes Total Treatment Time: 31 Minutes Austen Puga, VITA Date: 01/10/2025 documented in this encounter [facility] 01-05-2025 History of Present illness Narrative Images from the original note were not included. [facility] Daily Note Date: [...] pelvic stability-Met STG Goal 3 Status:: Met Skilled Nursing Goals Time Frame for Skilled Nursing Goals : 16 Test And Research Reactor Operator Goal 1: Improve functional mobility with Oswestry score <15/50 (from 50) Skilled Nursing Goal 2: Decrease R SI pain 4/10 at worst x3 days Treatment Tolerance: Treatment Tolerance: Tolerated treatment well. Post Treatment Pain: 5/10 Time In: 0802 Time Out: 0838 Timed Code Treatment Minutes: 36 Minutes Total Treatment Time: 36 Minutes Austen Puga, VITA Date: 01/05/2025 documented in this encounter [facility] 01-02-2025 History of Present illness Narrative Images from the original note were not included. [facility] Daily Note Date: 01/02/2025 Patient Name: Meean Lucero : 1995 (29 y.o.) Referring Provider (secondary): Dr. Partida Diagnosis: R buttock pain, sacral pain Treatment Diagnosis: back pain, SI pain Onset Date: 09/28/24 (Referral) PT Insurance Information: [facility] Total # of Visits Approved: 16 Per [...] pelvic stability-Met STG Goal 3 Status:: Met Skilled Nursing Goals Time Frame for Skilled Nursing Goals : 16 Test And Research Reactor Operator Goal 1: Improve functional mobility with Oswestry score <15/50 (from ) Skilled Nursing Goal 2: Decrease R SI pain 4/10 at worst x3 days Treatment Tolerance: Treatment Tolerance: Tolerated treatment well. Post Treatment Pain: 8/10 Time In: 1114 Time Out : 1152 Timed Code Treatment Minutes: 37 Minutes Total Treatment Time: 37 Minutes Lauryn Edwards,EVENT ORGANIZER Date: 01/02/2025 documented in this encounter [facility] 12-29-2024 History of Present illness Narrative Images from the original note were not included. [facility] Daily Note Date: 12/29/2024 Patient Name: Meena Lucero : 1995 (29 y.o.) Referring Provider (secondary): Dr. Partida Diagnosis: R buttock pain, sacral pain Treatment Diagnosis: back pain, SI pain Onset Date: 09/28/24 (Referral) PT [facility] Total # of Visits Approved: 16 Per [...] pelvic stability-Met STG Goal 3 Status:: Met Skilled Nursing Goals Time Frame for Skilled Nursing Goals : 16 Skilled Nursing Goal 1: Improve functional mobility with Oswestry score <15/50 (from 22/50) Test And Research Reactor Operator Goal 2: Decrease R SI pain 4/10 at worst x3 days Treatment Tolerance: Treatment Tolerance: Tolerated treatment well. Post Treatment Pain: 4/10 Time In: 11;15 Time Out : 11:43 Timed Code Treatment Minutes: 28 Minutes Total Treatment Time: 28 Minutes Clara Castrejon, PT Date: 12/29/2024 documented in this encounter [facility] 12-27-2024 History of Present illness Narrative Images from the original note were not included. [facility] Daily Note Date: 12/27/2024 Patient Name: Meena Lucero : 1995 (29 y.o.) Referring Provider (secondary): Dr. Partida Diagnosis: R buttock pain, sacral pain Treatment Diagnosis: back pain, SI pain Onset Date: 09/28/24 (Referral) PT Insurance Information: [facility] Total # of Visits Approved: 16 Per [...] pelvic stability STG Goal 3 Status:: Met Test And Research Reactor Operator Goals Time Frame for Skilled Nursing Goals : 16 Test And Research Reactor Operator Goal 1: Improve functional mobility with Oswestry score <15/50 (from 2250) Skilled Nursing Goal 2: Decrease R SI pain 4/10 at worst x3 days Treatment Tolerance: Treatment Tolerance: Tolerated treatment well. Post Treatment Pain: 5/10 Time In: 0900 Time Out: 0935 Timed Code Treatment Minutes: 35 Minutes Total Treatment Time: 35 Minutes Austen Puga PTA Date: 12/27/2024 documented in this encounter [facility] 12-22-2024 History of Present illness Narrative Images from the original note were not included. [facility] Daily Note Date: 12/22/2024 Patient Name: Meena Lucero : 1995 (29 y.o.) Referring Provider (secondary): Dr. Partida Diagnosis: R buttock pain, sacral pain Treatment Diagnosis: back pain, SI pain Onset Date: 09/28/24 (Referral) PT Insurance Information: [facility] Total # of Visits Approved: 16 Per [...] hip abd 4+/5 for improved pelvic stability Test And Research Reactor Operator Goals Time Frame for Skilled Nursing Goals : 16 Test And Research Reactor Operator Goal 1: Improve functional mobility with Oswestry score <15/50 (from 2250) Skilled Nursing Goal 2: Decrease R SI pain 4/10 at worst x3 days Treatment Tolerance: Treatment Tolerance: Tolerated treatment well. Post Treatment Pain: 5-6/10 Time In: 0801 Time Out: 0836 Timed Code Treatment Minutes: 35 Minutes Total Treatment Time: 35 Minutes Austen Puga PTA Date: 12/22/2024 documented in this encounter [facility] 12-20-2024 History of Present illness Narrative Images from the original note were not included. [facility] Daily Note Date: 12/20/2024 Patient Name: Meena Lucero : 1995 (29 y.o.) Referring Provider (secondary): Dr. Partida Diagnosis: R buttock pain, sacral pain Treatment Diagnosis: back pain, SI pain Onset Date: 09/28/24 (Referral) PT [facility] Total # of Visits Approved: 16 Per [...] hip abd 4+/5 for improved pelvic stability Test And Research Reactor Operator Goals Time Frame for Test And Research Reactor Operator Goals : 16 Test And Research Reactor Operator Goal 1: Improve functional mobility with Oswestry score <15/50 (from 2250) Skilled Nursing Goal 2: Decrease R SI pain 4/10 at worst x3 days Treatment Tolerance: Treatment Tolerance: Tolerated treatment well. Post Treatment Pain: 6/10 Time In: 9;00 Time Out : 9:26 Timed Code Treatment Minutes: 26 Minutes Total Treatment Time: 26 Minutes Clara Castrejon, PT Date: 12/20/2024 documented in this encounter [facility] 12-19-2024 History of Present illness [...] PO) Oral ALLERGIES Allergies Allergen Reactions Hydrocodone [place] Oil Hives Codeine Rash and Unknown Chest [...] nursing note reviewed. Exam conducted with a scrubber system attendant present. Vitals: Estimated body mass index is [...] Gary Robison DO documented in this encounter [facility] 12-13-2024 History of Present illness Narrative Images from the original note were not included. [facility] Daily Note Date: 12/13/2024 Patient Name: Meena Lucero : 1995 (29 y.o.) Referring Provider (secondary): Dr. Partida Diagnosis: R buttock pain, sacral pain Treatment Diagnosis: back pain, SI pain Onset Date: 09/28/24 (Referral) PT Insurance Information: [facility] Total # of Visits Approved: 16 Per [...] hip abd 4+/5 for improved pelvic stability Skilled Nursing Goals Time Frame for Test And Research Reactor Operator Goals : 16 Test And Research Reactor Operator Goal 1: Improve functional mobility with Oswestry score <15/50 (from ) Skilled Nursing Goal 2: Decrease R SI pain 4/10 at worst x3 days Treatment Tolerance: Treatment Tolerance: Tolerated treatment well. Post Treatment Pain: 6/10 Time In: 0945 Time Out: 1018 Timed Code Treatment Minutes: 33 Minutes Total Treatment Time: 33 Minutes Austen Puga PTA Date: 12/13/2024 documented in this encounter [facility] 12-06-2024 History of Present illness Narrative Images from the original note were not included. [facility] Daily Note Date: 12/06/2024 Patient Name: Meena Lucero : 1995 (29 y.o.) Referring Provider (secondary): Dr. Partida Diagnosis: R buttock pain, sacral pain Treatment Diagnosis: back pain, SI pain Onset Date: 09/28/24 (Referral) PT Insurance Information: [facility] Total # of Visits Approved: 16 Per [...] hip abd 4+/5 for improved pelvic stability Test And Research Reactor Operator Goals Time Frame for Test And Research Reactor Operator Goals : 16 Test And Research Reactor Operator Goal 1: Improve functional mobility with Oswestry score <15/50 (from 22/50) Test And Research Reactor Operator Goal 2: Decrease R SI pain 4/10 at worst x3 days Treatment Tolerance: Treatment Tolerance: Tolerated treatment well. Post Treatment Pain: 6/10 Time In: 9:45 Time Out : 10:18 Timed Code Treatment Minutes: 33 Minutes Total Treatment Time: 33 Minutes Clara Castrejon, PT Date: 12/06/2024 Images from the original note were not included. [facility] Progress Report Date: 12/06/2024 Patient: Meena Lucero : 1995 Referring Provider (secondary): Dr. Partida Diagnosis: R buttock pain, sacral pain Treatment Diagnosis: back pain, SI pain Onset Date: 09/28/24 (Referral) PT Insurance Information: [facility] Total # of Visits Approved: 16 Per [...] hip abd 4+/5 for improved pelvic stability Test And Research Reactor Operator Goals Time Frame for Test And Research Reactor Operator Goals : 16 Test And Research Reactor Operator Goal 1: Improve functional mobility with Oswestry score <15/50 (from ) Skilled Nursing Goal 2: Decrease R SI pain 4/10 at worst x3 days Clara Castrejon, PT Date: 12/06/2024 documented in this encounter [facility] 11-20-2024 History of Present illness [...] hours PRN ALLERGIES Allergies Allergen Reactions Hydrocodone [place] Oil Hives Codeine Rash and Unknown Chest [...] of: CANDACE Avitia documented in this encounter [facility] 11-26-2024 History of Present illness Narrative Reason for [...] hours PRN ALLERGIES Allergies Allergen Reactions Hydrocodone [place] Oil Hives Codeine Rash and Unknown Chest [...] nursing note reviewed. Exam conducted with a scrubber system attendant present. Vitals: Estimated body mass index is [...] Gary Robison DO documented in this encounter [facility] 10-17-2024 History of Present illness Narrative Occupational Therapy [facility] Date: 10/17/2024 Patient Name: Meena Lucero : 1995 Pt Cancelled Appt due to no reason for cancel Trinity Harris Date: 10/17/2024 documented in this encounter [facility] 10-12-2024 History of Present illness Narrative Images from the original note were not included. [facility] Daily Note Date: 10/12/2024 Patient Name: Meena Lucero : 1995 (28 y.o.) Referring Provider (secondary): Dr. Partida Diagnosis: R buttock pain, sacral pain Treatment Diagnosis: back pain, SI pain Onset Date: 09/28/24 (Referral) PT Insurance Information: [facility] Total # of Visits Approved: 16 Per [...] hip abd 4+/5 for improved pelvic stability Skilled Nursing Goals Time Frame for Test And Research Reactor Operator Goals : 16 Skilled Nursing Goal 1: Improve functional mobility with Oswestry score <15/50 (from ) Test And Research Reactor Operator Goal 2: Decrease R SI pain 4/10 at worst x3 days Post Treatment Pain: 4/10 Time In: 8:00 Time Out : 8:33 Timed Code Treatment Minutes: 33 Minutes Total Treatment Time: 33 Minutes Clara Castrejon, PT Date: 10/12/2024 documented in this encounter [facility] 10-04-2024 History of Present illness Narrative Physical Therapy [facility] Date: 10/04/2024 Patient Name: Meena Lucero : 1995 Pt Cancelled Appt due to therapist ill Trinity Harris Date: 10/04/2024 documented in this encounter [facility] 09-18-2024 History of Present illness [...] hours PRN ALLERGIES Allergies Allergen Reactions Hydrocodone [place] Oil Hives Codeine Rash and Unknown Chest [...] nursing note reviewed. Exam conducted with a scrubber system attendant present. Vitals: Estimated body mass index is [...] or undercooked meat, and stay away from [facility]. Patient has been consulted regarding any [...] Gary Robison DO documented in this encounter [facility] 08-18-2024 History of Present illness Narrative [...] Date CHOLECYSTECTOMY TONSILLECTOMY Allergies Allergen Reactions Hydrocodone [place] Oil Hives Codeine Rash and Unknown Chest [...] screen, urine; Future Nurse Note: Pt given [place] and advised to have labs done [...] Daxa Martinez MA documented in this encounter [facility] 07-27-2024 History of Present illness Narrative Images from the original note were not included. [facility] Daily Note Date: 07/27/2024 Patient Name: Meena Lucero : 1995 (28 y.o.) Referring Provider (secondary): Dr. Partida Diagnosis: Sacral pain Treatment Diagnosis: SI pain Onset Date: 05/29/24 PT [place] [facility] [facility] Total # of Visits Approved: 16 Per [...] Goals Short Term Goal 1: STG= LTG Skilled Nursing Goals Time Frame for Skilled Nursing Goals : 16 visits Test And Research Reactor Operator Goal 1: Decrease subjective SI/right gluteal pain to <3/10 with activity and transitional movements Post Treatment Pain: 5/10 Time In: 0910 Time Out : 0935 Timed Code Treatment Minutes: 25 Minutes Total Treatment Time: 25 Minutes Onel Davis, PT Date: 07/27/2024 documented in this encounter [facility] 07-06-2024 History of Present illness Narrative Images from the original note were not included. [facility] Daily Note Date: [...] strengthening for self-correction of pelvic asymetry- MET Test And Research Reactor Operator Goals Time Frame for Test And Research Reactor Operator Goals : 10 visits Test And Research Reactor Operator Goal 1: Decrease subjective SI/right gluteal pain to <3/10 with activity and transitional movements Skilled Nursing Goal 2: Upgrade HEP for pelvic stab ex Test And Research Reactor Operator Goal 3: Maintain symetrical pelvic alignment for 5 consecutive days Post Treatment Pain: 4/10 Time In: 0910 Time Out : 0945 Timed Code Treatment Minutes: 35 Minutes Total Time: 35 Minutes ASIA MIX PT Date: 07/06/2024 documented in this encounter [facility] 06-29-2024 History of Present illness Narrative Images from the original note were not included. [facility] Daily Note Date: [...] strengthening for self-correction of pelvic asymetry- MET Skilled Nursing Goals Time Frame for Skilled Nursing Goals : 10 visits Skilled Nursing Goal 1: Decrease subjective SI/right gluteal pain to <3/10 with activity and transitional movements Skilled Nursing Goal 2: Upgrade HEP for pelvic stab ex Skilled Nursing Goal 3: Maintain symetrical pelvic alignment for 5 consecutive days Post Treatment Pain: 2-3/10 Time In: 0915 Time Out : 0955 Timed Code Treatment Minutes: 35 Minutes Total Time: 40 Minutes ASIA MIX PT Date: 06/29/2024 documented in this encounter [facility] [employer] 01-10-2023 Hospital Discharge instructions Fei Canales MD - 01/10/2023 3:17 PM EST There was a possible concern for fracture of the fibula. Please follow-up with Dr. Rehman for further evaluation and be sure to use crutches and be nonweightbearing until then. The following attachments cannot be sent through Care Everywhere.Ankle Sprain (Mongolian)documented in this encounter [facility] [employer] Work Phone: 12-08-2022 Hospital Discharge instructions Patient [...] and water are not available, use hand livestock farm manager. Make sure that all people in your household wash their hands well and often. Take [id number]-[id number] and prescription medicines only as told by [...] and water are not available, use hand livestock farm manager. This information is not intended to replace advice given to you by your health care provider. Make sure you discuss any questions you have with your health care provider. Document Released: 11/08/2006 Document Revised: 04/26/2020 Document Reviewed: 09/13/2019 [employer] Patient Education 2020 [employer]. Follow Up Care 12/08/2022 09:17:52 With:Keyon DAVIS MD, FAM Address: When: only if needed [facility] 12-04-2022 Hospital Discharge instructions Jason Tracy MD - 12/04/2022 4:33 PM EST Increase fluids at home. Take Zofran for any nausea. Try Imodium/loperamide for diarrhea. Call primary care doctor for close follow-up. Use Tylenol or Motrin to keep fever down. The following attachments cannot be sent through Care Everywhere.Viral Infections (Mongolian)documented in this encounter [facility] [employer] Phone: 06-01-2022 Hospital Discharge instructions Patient Education [...] height. This can be done either in [place]ian ([place] or metric measurements. Note that charts are available to help you find your BMI quickly and easily without having to do these calculations yourself. To calculate your BMI in [place]ian ([place] measurements, your health care provider will: [...] medical problems. BMI can be measured using Mongolian measurements or metric measurements. To interpret your [...] 07/20/2005 Document Revised: 10/21/2018 Document Reviewed: 09/21/2018 [employer] Patient Education 2020 [employer] 06/01/2022 13:15:39 Carpal Tunnel Syndrome Carpal [...] Having a job, such as being a display carver or a cafeteria cashier, that requires you to repeatedly move [...] 3 times per day. General instructions Take hmcj-twi-rxykakf and prescription medicines only as told by [...] 11/05/2001 Document Revised: 03/17/2019 Document Reviewed: 03/17/2019 [employer] Patient Education 2020 [employer]. Follow Up Care 05/28/2022 08:22:05 With:Meena Carl CNP Address: When: only if needed [facility] Evaluation + Plan note [facility] Evaluation note Diagnosis Subacute bronchitis- Primary Acute bronchitis documented in this encounter [employer] Phone: evalodmses note* Diagnosis Left wrist pain Pain in joint, forearm documented in this encounter [employer] Phone: evaluation note* Diagnosis Viral illness- Primary Unspecified viral infection, in conditions classified elsewhere and of unspecified site documented in this encounter [facility] [employer] Phone: evaluation note* Diagnosis Injury of right ankle, initial encounter- Primary documented in this encounter [employer] Phone: evaluation note* Diagnosis Other closed fracture of proximal end of right fibula with routine healing, subsequent encounter documented in this encounter [facility] [employer] Phone: evaluation note* Diagnosis First trimester state, [...] for diabetes mellitus [facility] Diagnosis Second trimester state, incidental 24 weeks gestation of Diabetes mellitus screening Screening for diabetes mellitus Low platelet count (CMS/HCC) Thrombocytopenia affecting , antepartum (CMS/HCC) 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, antepartum [facility] Diagnosis 28 weeks gestation of Third trimester state, incidental Heartburn during in third trimester [facility] Diagnosis Third trimester state, incidental 32 weeks gestation of Excessive growth affecting management of , antepartum, single or unspecified fetus [facility] Narr[facility] No data available for this section [facility] Discharge instructions* Attachments The following attachments cannot be sent through Care Everywhere. * Bronchitis (Mongolian) [facility] note No data available for this section [facility] Reason for referral (narrative) Referred by: Meena Carl CNP [facility] Advance Directives Documents on File Type Date Recorded Patient Information Resource Consultant Expl anation ACP-Advance Directive ACP-Power of Twister Hand Summary Purpose Family History No Family History [...] Care Team (unrecognized sect ion and content) Gas Scrubber Operator Relationship Specialty Start Date End Date Keyon Davis MD [address] [place] [address] [place] [address] PCP - General Family Medicine 12/04/22 Gas Scrubber Operator Relationship Specialty Start Date End Date Keyon Davis MD [address] [place] [address] PCP - General Family Medicine 12/04/22 Gas Scrubber Operator Relationship Specialty Start Date End Date Keyon Davis MD [address] [place] [address] PCP - General Family Medicine 12/04/22 Gas Scrubber Operator Relationship Specialty Start Date End Date Óscar Villagran DNP [address] [place] [phone] PCP - General Family Nurse Practitioner 03/14/24 Gas Scrubber Operator Relationship Specialty Start Date End Date Óscar Villagran DNP [address] [phone] PCP - General Family Nurse Practitioner 03/14/24 Gas Scrubber Operator Relationship Specialty Start Date End Date Óscar Villagran DNP [address] [phone] PCP - General Family Nurse Practitioner 03/14/24 Gas Scrubber Operator Relationship Specialty Start Date End Date Óscar Villagran DNP [address] [place] [address] PCP - General Family Nurse Practitioner 03/14/24 Gas Scrubber Operator Relationship Specialty Start Date End Date Keyon Davis MD [address] [place] [address] [place] [address] PCP - General 05/12/23 Gary Robison DO [address] [place] [address] PCP - [facility] 02/21/24 Gas Scrubber Operator Relationship Specialty Start Date End Date Keyon Davis MD [address] [place] [phone] PCP - General 05/12/23 Gary Robison, [facility] [place] [address] PCP [facility] 02/21/24 Gas Scrubber Operator Relationship Specialty Start Date End Date Óscar Villagran DNP [address] [place] [phone] PCP - General Family Nurse Practitioner 03/14/24 Gas Scrubber Operator Relationship Specialty Start Date End Date Keyon Davis MD [address] [place], [place] [address] [phone] PCP - General 05/12/23 Gary Robison, [address] [place], [place] [address]Sun[place] [address] PCP [facility] 02/21/24 Gas Scrubber Operator Relationship Specialty Start Date End Date Keyon Davis MD [address] [place], [place] [address]y [place] [address] PCP - General 05/12/23 Gary Robison DO [facility] [place] [address] PCP [facility] 02/21/24 Gas Scrubber Operator Relationship Specialty Start Date End Date Keyon Davis MD [address] [place] [phone] PCP - General 05/12/23 Gary Robison DO [facility] [place], [place] [phone] PCP - [facility] 02/21/24 Gas Scrubber Operator Relationship Specialty Start Date End Date Keyon Davis MD [address] [place], [place] [address]k[place]y [place] [address] PCP - General 05/12/23 Gary Robison, [facility] [place] [phone] PCP - [facility] 02/21/24 Gas Scrubber Operator Relationship Specialty Start Date End Date Keyon Davis MD [address] [place], [place] [address]k[place]y [place] [address] PCP - General 05/12/23 Gary Robison, DO [facility] [place], [place] [phone] PCP - [facility] 02/21/24 Gas Scrubber Operator Relationship Specialty Start Date End Date Óscar Villagran DNP [address] [place] [address] [place] [phone] PCP - [facility] Family Nurse Practitioner 03/14/24 Gas Scrubber Operator Relationship Specialty Start Date End Date Keyon Davis MD [address] [place], [place] [address]k[place]y [place] [address] PCP - General 05/12/23 Gary Robison, DO [address], [facility] PCP - [facility] 02/21/24 Gas Scrubber Operator Relationship Specialty Start Date End Date Keyon Davis MD [address] [place] [phone] PCP - General 05/12/23 Gary Robison, DO [address] [place] [address] PCP [facility] 02/21/24 Gas Scrubber Operator Relationship Specialty Start Date End Date Óscar Villagran DNP [address] [place], [place] [phone] PCP - General Family Nurse Practitioner 03/14/24 Gas Scrubber Operator Relationship Specialty Start Date End Date Keyon Davis MD [address] [place] [phone] PCP - General 05/12/23 Gary Robison, DO [address], [place] [address] PCP - [facility] 02/21/24 Gas Scrubber Operator Relationship Specialty Start Date End Date Keyon Davis MD [address] [place] [phone] PCP - General 05/12/23 Gary Robison, DO [address] [place] [phone] PCP - [facility] 02/21/24 Gas Scrubber Operator Relationship Specialty Start Date End Date Aleusebiarao Óscar HUMA Moreno [address] [facility] [place] [phone] PCP - General Family Nurse Practitioner 03/14/24 Gas Scrubber Operator Relationship Specialty Start Date End Date Keyon Davis MD [address] [place] [address] [place] [address] PCP - General 05/12/23 Gary Robison DO [address] [place] [address] [place] [address] PCP - [facility] 02/21/24 INFORMATION SOURCE (unrecogn ized section and content) DATE CREATED AUTHOR 02/01/2023 [facility] DATE CREATED AUTHOR AUTHOR'S ORGANIZ ATION 04/01/2023 [facility] DATE CREATED AUTHOR AUTHOR'S ORGANIZ ATION 02/14/2025 [facility] DATE CREATED AUTHOR AUTHOR'S ORGANIZ ATION 02/15/2025 [...] BE BASED ON THE PRIMARY CLINICAL RECORDS. [facility] [employer] [facility]. provides no warranty or guarantee of the accuracy or completeness of information in this document.
[2025-02-20 08:41] VITALS: BP 122/74; PULSE 69
== END 2025-02-20 09:06 | disposition home or self-care (01) ==
LOC: US 08:17 → FBC 08:19
PROVIDERS: Visit Provider Physician Assistant
DX: O43.113 Circumvallate placenta, third trimester (principal); Z3A.33 33 weeks gestation of pregnancy
CPT/HCPCS: 76818

== ENCOUNTER 2025-02-23 08:20 | Outpatient (OUT) | payer OTHER, SELFPAY ==
[2025-02-23 08:25] VITALS: BP 123/78; PULSE 77
== END 2025-02-23 09:00 | disposition home or self-care (01) ==
LOC: FBCO 08:20 → FBC 08:22
PROVIDERS: Visit Provider Obstetrics & Gynecology
DX: O43.893 Other placental disorders, third trimester (principal); Z3A.33 33 weeks gestation of pregnancy
CPT/HCPCS: 59025

== ENCOUNTER 2025-02-27 08:26 | Outpatient (OUT) | payer OTHER, SELFPAY ==
--- NOTE | 2025-02-27 08:27 | US_ITS ---
[address] [address] Patient Name: RUEL READ MRN: [id number] date: 1995 Sex: F Assigned Patient Location: [facility] Current Patient Location: Accession/Order Number: [id number] Exam Date: 02/27/2025 10:35 Report Date: 02/27/2025 10:36 At the request of: BEVERLY PINTO Procedure: US OB BPP w non-stress Obstetrical biophysical profile HISTORY: Circumvallate placenta There is adequate breathing movement, gross body movement, tone and amniotic fluid volume for total score of 8 out of 8. The amniotic fluid index is 11.2 cm within normal limits. The heart rate is 157 bpm. US/US OB BPP w non-stress IMPRESSION: Adequate ultrasound biophysical profile. Impression dictated by: Jones Clemente M.D.02/27/2025 10:36 AM Dictation Location: [place] [address] Electronically authenticated by: [id number] Y Date: 02/27/2025 10:36
--- OUTSIDE RECORDS SUMMARY | 2025-02-27 08:39 | XMS_ITS | CCD ---
Author Organization [facility] Care Team Providers Care Conveyor Belt Installer Name Role Phone Unavailable Primary Care Provider UnavailCharli Browne Primary Care Physician Keyon Davis MD Primary Care Provider ANTHONY Carl Attending UnavailKeyon Lockett Attending Unavailable Evan Moyer Attending Unavailable LISHA, DR DRUMMOND LISTED Consulting Unavaila ble [facility], DR NICOLE Primary Care Unavailable ENRIQUETA ., DR BENDER Attending Unavailable ENRIQUETA ., DR BENDER Admitting Unavailable Clingman HUMA, Óscar Moreno Primary Care Provider Tyshawn FINN, Óscar Moreno Primary Care Provider Keyon Davis MD Primary Care Provider [phone] Gary Robison DO Unavailable GARY ROBISON Attending Unavailable GARY ROBISON Attending Unavailable GENEVIEVE CALDERON Attending Unavailable GARY ROBISON Attending Unavailable ENRIQUETAGARY WOODS Attending Unavailable GARY ROBISON Attending Unavailable GENEVIEVE [...] Primary Care Unavailable GARY ROBISON Referring Unavailable ENRIQUETAGARY WOODS Referring Unavailable CLINGMAN, ÓSCAR A Primary Care [...] ROBISON Referring Unavailable OLEWIJOHN GOODMAN Attending Unavailable OLELUCRECIALER, JOHN Dockery Referring Unavailable CLINGMAN, ÓSCAR A Primary Care Unavailable OLEANT, JOHN Dockery Attending Unavailable OLEWILER, JOHN J Referring Unavailable CLINGMAN, ÓSCAR A Primary Care Unavailable JOHN PARTIDA Attending Unavailable JOHN PARTIDA Referring Unavailable CLINGMAN, ÓSCAR A Primary Care Unavailable OLEJOHN CAIN Attending Unavailable OLEWILERBHAVIKJOHN J Referring Unavailable CLINGMAN, ÓSCAR A Primary Care Unavailable OLEJOHN CAIN Attending Unavailable OLEJOHN CAIN Referring Unavailable CLINGMAN, ÓSCAR A Primary Care Unavailable OLEJOHN CAIN Attending Unavailable OLEWIJOHN GOODMAN Referring Unavailable CLINGMAN, ÓSCAR [...] / HYDROcodone Drug Allergy 7 Rash, Unknown [facility] (20 sources) Acetaminophen / oxyCODONE Drug Allergy 5 Rash, Unknown [facility] (20 sources) Codeine; Translations: [codeine] Drug Allergy 7 Rash, Cutaneous eruption (morphologic abnormality), Unknown [facility] (3 sources) Acetaminophen / HYDROcodone; Translations: [acetaminophen-hy drocodone] Drug Allergy [facility] (3 sources) Acetaminophen / oxyCODONE; Translations: [acetaminophen-ox ycodone] Drug Allergy Cutaneous eruption (morphologic abnormality) [facility] (1 source) Acetaminophen / HYDROcodone Drug Allergy [facility] (1 source) Acetaminophen / oxyCODONE Drug Allergy [facility] (1 source) Codeine Drug Allergy [facility] (20 sources) HYDROcodone Drug Allergy 3 [facility] (20 sources) orange allergenic extract Drug Allergy 5 [facility] Medications Current Medications Medication Drug Class(es) Dates [...] extended release oral tablet (6 sources) Uncompetitive M-btiuwp-J-aspartate Receptor Antagonist, Sigma-1 Agonist Start: 09-14-2021 take 1 tablet by mouth every twelve hours as needed for cough Dextromethorphan-g uaiFENesin 60-1200 MG TB12 Take 1 tablet by mouth every 12 hours as needed (COUGH CONGESTION) 28 tablet 0 09/14/2021 Active dextromethorphan hydrobromide 3 mg/ml / promethazine hydrochloride 1.25 mg/ml oral solution (6 sources) Phenothiazine, Uncompetitive E-uwlxkw-B-aspartate Receptor Antagonist, Sigma-1 Agonist Start: 05-31-2018 promethazine-dextr [...] day(s), # 30 tab(s), Refills(s) 1, Pharmacy: [facility], 170, cm, 06/01/22 12:55:00 EDT, Height/Length [...] pantoprazole 40 mg delayed release oral tablet (8 sources) Proton Pump Inhibitor Start: 01-16-2025 End: [...] TID, # 15 tab(s), Refills(s) 0, Pharmacy: [facility], 170, cm, 09/03/22 14:31:00 EDT, Height/Length [...] Value Interpretation Reference Range Facility US OB BPP W NON-STRESS on 02-20-2025 [place] [address] Ultrasound Report Signed Patient: MEENA LUCERO MR#: [id number] : 1995 Acct:[id number] Age/Sex: 29 / F ADM Date: 02/20/25 Loc: US Attending Dr: Genevieve Calderon Ordering Physician: Genevieve Calderon Date of Service: 02/20/25 Procedure(s): US OB BPP w non-stress Accession Number(s): [id number] cc: Genevieve Calderon; Physician,Non-Staff M.D. The [address] [address] Patient Name: MEENA LUCERO MRN: [id number] date: 1995 Sex: F Assigned Patient Location: [facility] Current Patient Location: Accession/Order Number: [id number] Exam Date: 02/20/2025 09:19 Report Date: 02/20/2025 09:20 At the request of: GENEVIEVE CALDERON Procedure: US OB BPP w non-stress BIOPHYSICAL PROFILE: CLINICAL INFORMATION: Circumvallate placenta COMPARISON: 02/13/2025 There is a single live intrauterine gestation in cephalic presentation. The reported gestational age is 33 weeks 2 days. The heart rate [id number] beats per minute. FINDINGS: TONE: 1 or more episodes of activity extension and flexion of extremity or opening and closing of the hand [Y] 2/2 GROSS BODY MOVEMENTS: 3 or more discrete body or limb movements [Y] 2/2 BREATHING MOVEMENTS: 1 or more episodes of breathing lasting at least 30 seconds [Y] 2/2 MAXIMILIANO: A single deepest vertical pocket of amniotic fluid greater than 2 cm [Y] 2/2 MAXIMILIANO: 12.3 cm. This is in low-normal range. Total score: 8/8 US/US OB BPP w non-stress IMPRESSION: NORMAL BIOPHYSICAL PROFILE. Impression dictated by: Marlene Orellana M.D.02/20/2025 9:20 AM Dictation Location: [place] [address] Electronically authenticated by: [id number] Y Date: 02/20/2025 09:20 Dictated By: Marlene Orellana M.D. Signed By: 02/20/25922 DD/ 9 TD/TT: Split And Drum Room Supervisor: [facility] Radiology, Radiologist, MD - 02/20/2025 [place] [address] Ultrasound Report Signed Patient: MEENA LUCERO MR#: [id number] : 1995 Acct:[id number] Age/Sex: 29 / F ADM Date: 02/20/25 Loc: US Attending Dr: Genevieve Calderon Ordering Physician: Genevieve Calderon Date of Service: 02/20/25 Procedure(s): US OB BPP w non-stress Accession Number(s): [id number] cc: Genevieve Calderon; Physician,Non-Staff Del The [address] [address] Patient Name: MEENA LUCERO MRN: [facility]:[id number] date: 1995 Sex: F Assigned Patient Location: [facility] Current Patient Location: Accession/Order Number: [id number] Exam Date: 02/20/2025 09:19 Report Date: 02/20/2025 09:20 At the request of: GENEVIEVE CALDERON Procedure: US OB BPP w non-stress BIOPHYSICAL PROFILE: CLINICAL INFORMATION: Circumvallate placenta COMPARISON: 02/13/2025 There is a single live intrauterine gestation in cephalic presentation. The reported gestational age is 33 weeks 2 days. The heart rate [id number] beats per minute. FINDINGS: TONE: 1 or more episodes of activity extension and flexion of extremity or opening and closing of the hand [Y] 2/2 GROSS BODY MOVEMENTS: 3 or more discrete body or limb movements [Y] 2/2 BREATHING MOVEMENTS: 1 or more episodes of breathing lasting at least 30 seconds [Y] 2/2 MAXIMILIANO: A single deepest vertical pocket of amniotic fluid greater than 2 cm [Y] 2/2 MAXIMILIANO: 12.3 cm. This is in low-normal range. Total score: 8/8 US/US OB BPP w non-stress IMPRESSION: NORMAL BIOPHYSICAL PROFILE. Impression dictated by: Marlene Orellana M.D.02/20/2025 9:20 AM Dictation Location: [place] [address] Electronically authenticated by: [id number] Y Date: 02/20/2025 09:20 Dictated By: Marlene Orellana M.D. Signed By: 02/20/25922 DD/ 9 TD/TT: Split And Drum Room Supervisor: [facility] Radiology Study observation (narrative) [facility] OB BPP W NON-STRESS Ordered By: Radiologist Radiology on 02-20-2025 [facility] [employer] Work Phone: Urinalysis macro (dipstick) panel (U)on 02-13-2025 Bilirubin, UA Negative Negative - 4(70) +++ mg/dL [facility] Blood, UA Negative Negative - 50 Darnell/mcL [facility] Clarity, UA Clear [facility] [employer] re Color, UA Yellow [facility] Glucose, UA Negative Negative - 2000(110) ++++ mg/dL [facility] Interpretation and review of laboratory results Abnormal [facility] [employer] re Ketones, UA Negative Negative - 160(16) ++++ mg/dL [facility] Leukocytes, UA Positive Negative - 500+++ Shona/mcL [facility] Comment on above: small Nitrite, UA Negative Negative - Positive [facility] pH, UA 6 5 - 9 [facility] Health[facility] e Protein, UA Trace Negative - 1999(20) ++++ mg/dL [facility] Spec Grav, UA 1.025 1 - 1.03 [facility] Urobilinogen, UA 0.2 0.2 - 12 mg/dL [facility] ALL PLATELET COUNTon 025 [facility] PLT 151 [facility] US OB PLACENTAon 01-17-2025 [place] [address] Ultrasound Report Signed Patient: MEENA LUCERO MR#: [id number] : 1995 Acct:[id number] Age/Sex: 29 / F ADM Date: 01/16/25 Loc: US Attending Dr: Gary Robison D.O. Ordering Physician: Gary Robison D.O. Date of Service: 01/16/25 Procedure(s): US OB placenta Accession Number(s): [id number] cc: Gary Robison D.O.; Physician,Non-Staff MFelipe The [place] [address] Patient Name: MEENA LUCERO MRN: [facility]:[id number] date: 1995 Sex: F Assigned Patient Location: Current Patient Location: [facility] Accession/Order Number: [id number] Exam Date: 01/16/2025 11:08 Report Date: 01/16/2025 [...] Marlene Orellana M.D.01/16/2025 11:19 AM Dictation Location: [place] [address] Electronically authenticated by: [id number] Y Date: 01/16/2025 11:19 Dictated By: Marlene Orellana M.D. Signed By: 01/17/25 1034 DD/ 1119 TD/TT: Split And Drum Room Supervisor: [facility] Radiology, Radiologist, MD - 01/17/2025 [place] [address] Ultrasound Report Signed Patient: MEENA LUCERO MR#: [id number] : 1995 Acct:[id number] Age/Sex: 29 / F ADM Date: 01/16/25 Loc: US Attending Dr: Gary Robison D.O. Ordering Physician: Gary Robison D.O. Date of Service: 01/16/25 Procedure(s): US OB placenta Accession Number(s): [id number] cc: Gary Robison D.O.; Physician,Non-Staff Del The [address] [address] Patient Name: MEENA LUCERO MRN: [facility]:[id number] date: 1995 Sex: F Assigned Patient Location: Current Patient Location: [facility] Accession/Order Number: [id number] Exam Date: 01/16/2025 11:08 Report Date: 01/16/2025 [...] Marlene Orellana M.D.01/16/2025 11:19 AM Dictation Location: [place] [address] Electronically authenticated by: [id number] Y Date: 01/16/2025 11:19 Dictated By: Marlene Orellana M.D. Signed By: 01/17/25 1034 DD/ 1119 TD/TT: Split And Drum Room Supervisor: [facility] OB PLACENTAOrdered By: Ra duncan Radiology on 01-17-2025 [facility]St[facility] Energycar e Work Phone: No Panel Informationon 01-16 Radiology Study observation (narrative) [facility] OB GROWTHon 01-16-[address] [address] Ultrasound Report Signed Patient: MEENA LUCERO MR#: [id number] : 1995 Acct:[id number] Age/Sex: 29 / F ADM Date: 01/16/25 Loc: US Attending Dr: Gary Robison D.O. Ordering Physician: Gary Robison D.O. Date of Service: 01/16/25 Procedure(s): US OB growth Accession Number(s): [id number] cc: Gary Robison D.O.; Physician,Non-Staff Del [place] [address] Patient Name: MEENA LUCERO MRN: [facility]:[id number] date: 1995 Sex: F Assigned Patient Location: US Current Patient Location: US Accession/Order Number: [id number] Exam Date: 01/16/2025 11:08 Report Date: 01/16/2025 [...] Marlene Orellana M.D.01/16/2025 11:19 AM Dictation Location: [facility] Electronically authenticated by: [id number] Y Date: 01/16/2025 11:19 Dictated By: Marlene Orellana M.D. Signed By: 01/16/25 1122 DD/ 1119 TD/TT: Split And Drum Room Supervisor: [facility] Radiology, Radiologist, - 01/16/2025 [place] [address] Ultrasound Report Signed Patient: MEENA LUCERO MR#: [id number] : 1995 Acct:[id number] Age/Sex: 29 / F ADM Date: 01/16/25 Loc: US Attending Dr: Gary Robison D.O. Ordering Physician: Gary Robison D.O. Date of Service: 01/16/25 Procedure(s): US OB growth Accession Number(s): [id number] cc: Gary Robison D.O.; Physician,Non-Staff Del The [place] [address] Patient Name: MEENA LUCERO MRN: [facility]:[id number] date: 1995 Sex: F Assigned Patient Location: US Current Patient Location: Accession/Order Number: [id number] Exam Date: 01/16/2025 11:08 Report Date: 01/16/2025 [...] Marlene Orellana M.D.01/16/2025 11:19 AM Dictation Location: [place] [address] Electronically authenticated by: [id number] Y Date: 01/16/2025 11:19 Dictated By: Marlene Orellana M.D. Signed By: 01/16/25 1122 DD/ 1119 TD/TT: Split And Drum Room Supervisor: [facility] OB GROWTHOrdered By: Braxton ologist Radiology on 01-16-2025 [facility] Health[facility] Work Phone: Urinalysis macro (dipstick) panel (U)on 01-16-2025 Bilirubin, UA Negative Negative - 4(70) +++ mg/dL [facility] Blood, UA Negative Negative - 50 Darnell/mcL [facility] Clarity, UA Clear [facility] Health[employer] re Color, UA Yellow [facility] Health[facility] e Glucose, UA Negative Negative - 1999(110) ++++ mg/dL [facility] Interpretation and review of laboratory results Abnormal [facility] Healthca re Ketones, UA Negative Negative - 160(16) ++++ mg/dL [facility] Leukocytes, UA Moderate Negative - 500+++ Shona/mcL [facility] Nitrite, UA Negative Negative - Positive [facility] pH, UA 7 5 - 9 [facility] Health[facility] Protein, UA Negative Negative - 1999(20) ++++ mg/dL [facility] Spec Grav, UA 1.015 1 - 1.03 [facility] Urobilinogen, UA 0.2 0.2 - 12 mg/dL [facility] ALL PLATELET COUNTon 025 Interpretation and review of laboratory results Abnormal [facility] Healthca re TBH PLT 139 Low [facility] CLINIS[facility] Health[facility] ALL CBC WITH AUTO DIFFon BASOPHILS ABSOLUTE AUTO 0 [facility] Basophils/100 WBC (Bld) 0.2 % 0.2 - 2.0 % [facility] Eosinophils/100 WBC (Bld) 0.9 % 0.9 - 7.0 % [facility] Erythrocyte distribution width (RBC) [Ratio] 13.2 % 11.0 - 15.0 % [facility] Hematocrit (Bld) [Volume fraction] 34.6 % Low 36.0 - 48.0 % [facility] Healthcar e Hemoglobin (Bld) [Mass/Vol] 11.5 g/dL Low 12.0 - 16.0 g/dL [facility] IMMATURE GRANULOCYTES ABS AUTO 0.02 [facility] Immature granulocytes/100 WBC (Bld) 0.3 % 0.0 - 0.5 % [facility] Interpretation and review of laboratory results Abnormal [facility] re LYMPHOCYTES ABSOLUTE AUTO 1.3 [facility] Lymphocytes/100 WBC (Bld) 22 % 20.5 - 60.0 % [facility] MCH (RBC) [Entitic mass] 28.8 pg 26.7 - 34.0 pg [facility] MCHC (RBC) [Mass/Vol] 33.2 g/dL 29.9 - 35.2 g/dL [facility] MCV (RBC) [Entitic vol] 86.5 fL 81.0 - 99.0 fL [facility] MONOCYTES ABSOLUTE AUTO 0.4 [facility] Monocytes/100 WBC (Bld) 7.2 % 1.7 - 12.0 % [facility] NEUTROPHILS ABSOLUTE AUTO 4 [facility] Neutrophils/100 WBC (Bld) 69.4 % 43.0 - 75.0 % [facility] Platelet mean volume (Bld) [Entitic vol] 11.7 fL 9.5 - 13.5 fL [facility] TBH EO # 0.1 [facility] TBH PLT 117 Low [facility] Healthcar e TBH RBC 4 Low [facility] Healthcar e TBH WBC 5.7 [facility] CLINISYNC [facility] Healthcar e Urinalysis macro (dipstick) panel (U)on 12-19-2024 Bilirubin, UA Negative Negative - 4(70) +++ mg/dL [facility] Blood, UA Negative Negative - 50 Darnell/mcL [facility] Clarity, UA Clear [facility] re Color, UA Yellow [facility] Health[facility] e Glucose, UA Positive Negative - 1999(110) ++++ mg/dL [facility] Comment on above: 100 mg Interpretation and review of laboratory results Abnormal [facility] Ketones, UA Negative Negative - 160(16) ++++ mg/dL [facility] Leukocytes, UA Positive Negative - 500+++ Shona/mcL [facility] Comment on above: small Nitrite, UA Negative Negative - Positive [facility] pH, UA 7 5 - 9 [facility] Protein, UA Negative Negative - 1999(20) ++++ mg/dL [facility] Spec Grav, UA 1.02 1 - 1.03 [facility] Urobilinogen, UA 0.2 0.2 - 12 mg/dL [facility] Healthcar e Urinalysis macro (dipstick) panel (U)on 11-20-2024 Bilirubin, UA Negative Negative - 4(70) +++ mg/dL [facility] Blood, UA Negative Negative - 50 Darnell/mcL [facility] Clarity, UA Clear [facility] Healthca re Color, UA Yellow [facility] Health[facility] Glucose, UA Negative Negative - 1999(110) ++++ mg/dL [facility] Interpretation and review of laboratory results Abnormal [facility] Ketones, UA Negative Negative - 160(16) ++++ mg/dL [facility] Leukocytes, UA Positive Negative - 500+++ Shona/mcL [facility] Comment on above: small Nitrite, UA Negative Negative - Positive [facility] pH, UA 7.5 5 - 9 [facility] Protein, UA Negative Negative - 1999(20) ++++ mg/dL [facility] Spec Grav, UA 1.015 1 - 1.03 [facility] Urobilinogen, UA 0.2 0.2 - 12 mg/dL [facility] Healthcar e IGP,APTIMA HPV,AGE GDLNon AGE GDLN ACOG TESTING Note . [facility] Comment on above: TESTS RESULT FLAG UN ITS REF RANGE LAB Clinician Provided Cytology Information Source.............Cervix No. of containers..01 ThinPrep Vial Age Jermain ANGEL Subha... FLAG LEGEND: L-Low Normal,H-High Normal,LL-Alert Low,HH-Alert High <-Panic Low,>-Panic High,A-Abnormal,AA-Critical Abnormal Performed at: 01 =G [address] [address] Yulisa Mustafa MD, IGP, RFX APTIMA HPV ASCU Note . [facility] Comment on above: TESTS RESULT FLAG U NITS REF RANGE LAB DIAGNOSIS: 02 NEGATIVE FOR INTRAEPITHELIAL LESION OR MALIGNANCY. FUNGAL ORGANISMS MORPHOLOGICALLY CONSISTENT WITH FELIPE SPECIES ARE PRESENT. Specimen adequacy: 02 Satisfactory for evaluation. Endocervical and/or squamous metaplastic cells (endocervical component) are present. Performed by: 02 Susan Boucher, Learning Coordinator ([facility]) . 02 Note: Note 03 The [...] <-Panic Low,>-Panic High,A-Abnormal,AA-Critical Abnormal Performed at: [address] [place] [address] Pily Shields PhD, [address] [address] Yulisa Mustafa MD, Performed at: =[address] [id number] Biztalk Developer: Yulisa Mustafa MD, Phone: [phone] Performed at: [address] [place] [id number] [employer]iz[employer] Developer: Pily Shields PhD, Phone: [phone] SPATULA-ALONE CERVIX CLINIS[facility]NC [facility] Healthcar e RECURRENT VAGINITIS (HTRX)on 10-18-2024 ATOPOBIUM VAGINAE 0 [facility] ATOPOBIUM VAGINAE Not detected [facility] BVAB 2,3 (BACTERIAL VAGINOSIS ASSOCIATED BACTERIA 2, 3); MOBILUNCUS SPP 0 [facility] BVAB 2,3 (BACTERIAL VAGINOSIS ASSOCIATED BACTERIA 2, 3); MOBILUNCUS SPP Not detected [facility] FELIPE ALBICANS, PARAPSILOSIS, TROPICALIS 0 [facility] FELIPE ALBICANS, PARAPSILOSIS, TROPICALIS Not detected [facility] F[facility]IPE [facility]ATA [facility] GLABRATA Not detected [facility] FELIPE KRUSEI 0 [facility] Healt hcare FELIPE KRUSEI Not detected NOM Hea lthcare CHLAMYDIA TRACHOMATIS 0 [facility] Healthcare CHLAMYDIA TRACHOMATIS Not detected [facility] GARDNERELLA VAGINALIS 0 [facility] GARDNERELLA VAGINALIS Not detected [facility] MEGASPHAERA (TYPES 1, 2) 0 [facility] MEGASPHAERA (TYPES 1, 2) Not detected [facility] MYCOPLASMA GENITALIUM 0 [facility] MYCOPLASMA GENITALIUM Not detected [facility] NEISSERIA GONORRHOEAE 0 [facility] NEISSERIA GONORRHOEAE Not detected [facility] TRICHOMONAS VAGINALIS 0 [facility] TRICHOMONAS VAGINALIS Not detected [facility] Urinalysis macro (dipstick) panel (U)on 10-17-2024 Bilirubin, UA Negative Negative - (70) +++ mg/dL [facility] Comment on above: n Blood, UA Negative Negative - 50 Darnell/mcL [facility] Clarity, UA Clear [facility] Healthca re Color, UA Yellow [facility] Health[facility] e Glucose, UA Negative Negative - 1999(110) ++++ mg/dL [facility] Interpretation and review of laboratory results Normal [facility] Healthaz re Ketones, UA Negative Negative - 160(16) ++++ mg/dL [facility] Leukocytes, UA Negative Negative - 500+++ Shona/mcL [facility] Nitrite, UA Negative Negative - Positive [facility] pH, UA 6 5 - 9 [facility] Healthcar e Protein, UA Negative Negative - 1999(20) ++++ mg/dL [facility] Spec Grav, UA 1.03 1 - 1.03 [facility] Urobilinogen, UA 0.2 0.2 - 12 mg/dL [facility] Urinalysis macro (dipstick) panel (U)on 09-18-2024 Bilirubin, UA Negative Negative - 4(70) +++ mg/dL [facility] Blood, UA Negative Negative - 50 Darnell/mcL [facility] Clarity, UA Clear [facility] re Color, UA Yellow [facility] Glucose, UA Negative Negative - 1999(110) ++++ mg/dL [facility] Interpretation and review of laboratory results Normal [facility] Healthca re Ketones, UA Negative Negative - 160(16) ++++ mg/dL [facility] Leukocytes, UA Negative Negative - 500+++ Shona/mcL [facility] Nitrite, UA Negative Negative - Positive [facility] pH, UA 6.5 5 - 9 [facility] Healthcar e Protein, UA Negative Negative - 1999(20) ++++ mg/dL [facility] Spec Grav, UA 1.015 1 - 1.03 [facility] Urobilinogen, UA 0.2 0.2 - 12 mg/dL [facility] Healthcar e BOX TESTon 09-11-2024 BOX TEST SENT OUT [facility] [address] [facility] Healthcar e [address] 11/11/24 [facility] UN[facility] BOX [facility] e HCG ( test) Ql (U)o n 08-18-2024 Interpretation and review of laboratory results Abnormal [facility] re Preg Test, Ur Positive [facility] Healthcar e Urinalysis macro (dipstick) panel (U)on 08-18-2024 Bilirubin, UA Negative Negative - 4(70) +++ mg/dL [facility] Blood, UA Negative Negative - 50 Darnell/mcL [facility] Clarity, UA Clear [facility] Color, UA Yellow [facility] e Glucose, UA Negative Negative - 1999(110) ++++ mg/dL [facility] Hospital Interpretation and review of laboratory results Abnormal [facility] re Ketones, UA Negative Negative - 160(16) ++++ mg/dL [facility] Leukocytes, UA Negative Negative - 500+++ Shona/mcL [facility] Nitrite, UA Positive Negative - Positive [facility] Comment on above: small pH, UA 7.0 5 - 9 [facility] Protein, UA Negative Negative - 1999(20) ++++ mg/dL [facility] Spec Grav, UA 1.015 1 - 1.03 [facility] Urobilinogen, UA 0.2 0.2 - 12 mg/dL [facility] e ALL HCG, QUANTITATIVEon 07-23 Interpretation and review of laboratory results Abnormal [facility] Healthaz re MHPT HCG, QUANT 88175.0 High NINF [facility] Comment on above: Non-preg premeno <=5 Postmeno <=8 Male <=3 If HCG results do not concur with clinical observations, additional testing to confirm results is recommended. Original Ordering Provider: GARY MEI [facility] HCG, Quanton 08-07-2024 HCG, Quant 42177.0 mIU/mL High <5 [facility] Comment on above: Result Comment: Non-preg premeno <=5 Postmeno <=8 Male <=3 If HCG results do not concur with clinical observations, additional testing to confirm results is recommended. Performed By: #### B HCG #### [facility] [address] [place] [address] [employer]iztalk Developer: Armen Madrigal MD HCG, Quantitative, on 08-07-2024 [place] [address].0 m[IU]/mL High [facility] Comment on above: Non-preg premeno <=5 Postmeno <=8 Male <=3 If HCG results do not concur with clinical observations, additional testing to confirm results is recommended. Interpretation and review of laboratory results Abnormal [facility] ALL HCG, QUANTITATIVEon 07-23 Interpretation and review of laboratory results Abnormal [facility] MHPT HCG, QUANT 1366.0 High NINF [facility] Comment on above: Non-preg premeno <=5 Postmeno <=8 Male <=3 If HCG results do not concur with clinical observations, additional testing to confirm results is recommended. Original Ordering Provider: GARY AGUILAR DO [facility] HCG, Quanton 08-02-2024 HCG, Quant 1366.0 mIU/mL High <5 [facility] Comment on above: Result Comment: Non-preg premeno <=5 Postmeno <=8 Male <=3 If HCG results do not concur with clinical observations, additional testing to confirm results is recommended. Performed By: #### B HCG #### [facility] [address] [place], [place] [id number] [employer]iztalk Developer: Armen Madrigal MD ALL HCG, QUANTITATIVEon Interpretation [...] 07-31-2024 HCG, Quant 506.3 mIU/mL High <5 [facility] Comment on above: Result Comment: Non-preg premeno <=5 Postmeno <=8 Male <=3 If HCG results do not concur with clinical observations, additional testing to confirm results is recommended. Performed By: #### B HCG #### [facility] [address] [place] [address] [employer]iztalk Developer: Armen Madrigal MD HCG, Quantitative, on 07-31-2024 [...] Interpretation and review of laboratory results Abnormal [facility] re MHPT HCG, QUANT 200.3 High NINF [facility] Comment on above: Non-preg premeno <=5 Postmeno <=8 Male <=3 If HCG results do not concur with clinical observations, additional testing to confirm results is recommended. Original Ordering Provider: GARY AGUILAR DO [facility] HCG, Quanton 07-29-2024 HCG, Quant 200.3 mIU/mL High <5 [facility] Comment on above: Result Comment: Non-preg premeno <=5 Postmeno <=8 Male <=3 If HCG results do not concur with clinical observations, additional testing to confirm results is recommended. Performed By: #### B HCG #### [facility] [address] [place] [address] [employer]iztalk Developer: Armen Madrigal MD ALL HCG SERUM,QUALITATIVEon 09-05-2024 Interpretation and review of laboratory results Abnormal [facility] MHPT HCG SCREEN, BLOOD Positive Abnormal NEG [facility] Comment on above: If HCG results do not concur with clinical observations, additional testing to confirm result is recommended. This test is not labeled for use as a tumor marker. [facility] has confirmed the use of plasma for this test. This has not been cleared or approved by the U.S. Food and Drug Administration. The FDA has determined that such clearance is not necessary. Original Ordering Provider: GARY SANDERS [facility] e HCG Screen, Bloodon 07-27-20 24 HCG Screen, Blood Positive Abnormal NEG [facility] Comment on above: Result Comment: If HCG results do not concur with clinical observations, additional testing to confirm result is recommended. This test is not labeled for use as a tumor marker. [facility] has confirmed the use of plasma for this test. This has not been cleared or approved by the U.S. Food and Drug Administration. The FDA has determined that such clearance is not necessary. Performed By: #### H CG #### [facility] [address] [place] [address] Biztalk Developer: Armen Madrigal MD HCG, Quanton 07-27-2024 HCG, Quant 73.4 mIU/mL High <5 [facility] Comment on above: Result Comment: Non-preg premeno <=5 Postmeno <=8 Male <=3 If HCG results do not concur with clinical observations, additional testing to confirm results is recommended. Performed By: #### B HCG #### [facility] [address] [place] [address] [employer]iztalk Developer: Armen Madrigal MD HCG, Quanton 06-08-2024 HCG, Quant <1.0 Normal <[address] [place] [address] Comment on above: Result Comment: Non-preg premeno <=5 Postmeno <=8 Male <=3 If HCG results do not concur with clinical observations, additional testing to confirm results is recommended. Performed By: #### B HCG #### [facility] [address] [place] [address] Biztalk Developer: Armen Madrigal MD XR SACRUM COCCYX (MIN 2 VIEW S)on 05-24-2024 XR SACRUM COCCYX (MIN 2 VIEWS) HISTORY: Sacral pain. TECHNIQUE: 3 views sacrum and coccyx. COMPARISON: None. FINDINGS: Sacroiliac joints are normal. No fracture or acute osseous abnormality is identified. IMPRESSION: No acute process. Interpreted by: Parker Coleman MD Signed by: Parker Coleman MD 05/24/24 Final result Normal [facility] HCG, Quanton 03-04-2024 HCG, Quant 3680.0 mIU/mL High <5 [facility] Comment on above: Result Comment: Non-preg premeno <=5 Postmeno <=8 Male <=3 If HCG results do not concur with clinical observations, additional testing to confirm results is recommended. Performed By: #### B HCG #### [facility] [address] [place] [address] [employer]iztalk Developer: Armen Madrigal MD Cytology Cervical or vaginal smear or scraping studyon 05-26-2023 [facility] Health[facility] e RAD - MISCon 02-01-2023 RAD - MISC [id number] #1.00CD:127 [facility] XR ANKLE RIGHT (MIN 3 [...] 3. Soft tissue swelling has resolved. [id number] Phone: Radiology Study observation (narrative) [employer] Phone: XR ANKLE RIGHT (MIN 3 VIEWS) Ordered By: Mauro Anton on 01-29-2023 [employer] Phone: RAD - MISCon 01-11-2023 RAD - MIS [id number] #1.00CD:127 [facility] XR ANKLE RIGHT (MIN 3 [...] arthritis or acute bony abnormality is seen. [employer] Phone: Radiology Study observation (narrative) [employer] Phone: XR ANKLE RIGHT (MIN 3 VIEWS) Ordered By: João Amezquita on 01-10-2023 [employer] Phone: Ambulatory Visit Summaryon 0 12-08-2022 Ambulatory Visit Summary MEENA LUCERO :1995 Visit Date:12/08/2022 Ambulatory Visit Instructions Your Diagnosis Gastroenteritis due to Chavies-like virus Obesity due to excess calories BMI [...] to 60 minutes before meals Pickup at [facility] Unchanged multivitamin, ( Multivitamins with Vitamin B Complex, Vitamin C, Minerals and L-Methylfolate oral capsule) 1 Capsules By Mouth Every day Contact prescribing physician if questions or concerns Unchanged ondansetron (Zofran ODT 4 mg Tab-Dis) 1 Tablets By Mouth 3 times a day Contact prescribing physician if questions or concerns Pharmacy Information [email or web address]: [address], [place] [id number] [phone] Medications and Immunizations Administered Not Given influenza virus vaccine, inactivated, Postpone due to refusal SARS-CoV-2 mRNA (tozinameran 5y-11y) vac, Postpone due to refusal Allergies Percocet 5/325 (Hives, Rash) Vicodin (Hives) codeine (Hives, Rash) Problems Ongoing - Any problem that you are currently receiving treatment for. BMI 31.0-31.9,adult Gastroenteritis due to Chavies-like virus Non-smoker Obesity due to excess calories [...] immune system (more content not included)... [facility] ED Note-Physicianon 12-08-19 ED Note-Physician [id number] #1.00CD:[address] [facility] Medicine Office/Clini c Noteon 12-08-2022 Family [...] influenza and COVID. 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 Gastroenteritis due to Chavies-like virus (A08.8: Other specified intestinal infections) Viral [...] day(s), # 30 tab(s), Refills(s) 0, Pharmacy: [facility], 170, cm, 12/08/22 12:00:00 EST, Height/Length Dosing, 90.5, kg, 12/08/22 12:00:00 EST, Weight Dosing Follow-up With When Contact Information SUSAN BENAVIDEZ, KANDY Caban Only if needed Additional Instructions: Patient Education Viral Gastroenteritis, Adult Problem List/Past Medical History Ongoing BMI 31.0-31.9,adult Gastroenteritis due to Chavies-like virus Non-smoker Obesity due to excess calories [...] Alcohol Use, 05/26/2017 Employment/School 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 [facility] Comment on above: Result Comment: [...] and water are not available, use hand private wealth advisor. ? Make sure that all people in your household wash their hands well and often. ? Take dzez-nlc-puaqikt and prescription medicines only as told by [...] to person (more content not included)... [facility] COVID-19, Rapidon 12-04-2022 SARS-CoV-2 (COVID-19) RNA [...] management decisions. Fact sheet for Healthcare Providers: https://www.fda.gov/media/296088/download Fact sheet for Patients: https://www.fda.gov/media/133787/download Methodology: Isothermal Nucleic Acid Amplification Specimen Description .NASOPHARYNGEAL SWAB [facility] Rapid influenza A/B antigens on 12-04-2022 [...] Locations R1: This test was performed at: [facility], [address] [place] [address], [facility] , , [facility] Comment on above: Performed By: #### 2 [id number], [id number], [id number] ####[place] [address] Coding Summary.on 09-04-2022 Coding Summary. CD:[id number] Gh0bWw+PGhlYWQ+PE1FV ADsF12ryCZemO4UL5eDZ N7ENFQLBCFCKJ7PTP4vl WS0KGdaT6FrtoRf UsxguGFaBV80VRu8AOO7 rIghOCjnrD0jlZQkN1n0 JpMxTH62nE58DRarYYVn QvE8IrBybsptfYXl X4noTpFxcYKbRik+PHRh YmxlIHdpZHRoPScxMDAl LwVymIllZB5dFw3bRLCu LWNvbGxhcHNlOiBj n4htIGChNLrzEF9kkWoa N4QnqWD3AMNgy9f4Re07 dHI+HVRfULM8gLekFXmu r869PmHsq7eiMQG8 eRXwDCeeCHL3B22fv4B2 XYBvVGOxCBG2tNL6lY7x eLxlclhdA7BviNPhLtN4 BFU1xHOupN4fcDaq jrxbgV0nEbh+V49LKO3D IWSGEV5ETiq2M0EaHkei dHI+QZ79AURjEL32zMEe hDIjp3uwmPt8AnBz XHPmGOQ9sOwyKYhol2Kc NRPyP19diLRfe5X5FFTz uXmcuQGaAtBuvFJ2lI1i XQnbpaxxr8onkwpa Qvfvz5sszy64nY71V68q EXfdQONgRUJ7TOYeKUKh kGtibk6naR5lUb6+IDxj u6amy2himEe5JnNl JVNjsmRlzFmcZNM3z7Qt Vi30L3AsmEyxr5FjBej8 db40bEUhn6J2wKU3YQla GTDpiL7sKMcqRhB1 ITWkAbZuuK22gCLwXOpf Ph2oeBaiiSewXO7lDDJf dxxdYNNdlW3nGASwxGUi iJgrFH2dRCRvaqdb z565IvWrKAL5VCAnlRDx Z0XruK8sTgLgTZCkCYSf K3AudOIyRSryN762CRct ClH9WRAbqaOnT7Pj IIGytLrxZiW8o8F0Kl6F t3RjitiiHVZ1XMtkEZGt JwJ5WwGuIpU7E9OjIiv5 OKKnfGxpFT3fE6Nr JZIqasqjqoypmVY4GBJl MTPvgM76vPYwWUbnKz6l r1C6r028YEPaWVYopB90 Gr0slXayPIWrjZFO aK8xazlkb8fqcbqdOwGd KYWkLWe0ZOh3DZZzuYkd EzJaDTV5ZyS9EFJ7iWGv pZ7kmQoffsfrlC8l Oyc+O87rdK0iIRQ1THA7 rgntOLZqllDwJL99JI54 E7VwXtwgnUNiqEP+PGRp bkLcvTzdAR5uQxYw y1seh1QfWAwfI5EcVEBv KQszLkp8VETtVEB2rAP1 tK5bSOWsFXijt6J9nIY8 H3GghkYjcl9yc1om CYNnQLreX05nhELiq8L1 BYWdkDE8FHAanSxsRyUs bX24Gvn+LFEtzSstu4Gw Rmikf4bnd8bdyEu6 IjMwJSIgdmFsaWduPSJ0 e7HoTh76A72tNBzdKZBm TPHmURQnFAWuwEtguy3q eG3kYd0+PGNvbCB3 jIQ5tS2gENUoQjP1NQuy Q281WzImuGExRdebw8dc l3ztzGc1RyVaNCXrobPx fYehWRZ8g8WnVr26 N44bTNkqVQFySDUvASOy ISJdcJdywq9ysJ4yJm4+ KH0ub7dnpd03iE57pDG+ PXNfFMQ1sSsjIAqc KARpdJ9vRDqeHfO5XROb OuVzeZ52mNMtTGeoKj3v aKfksYayQL3hKSYnklsj m723BmJbh7ysEFUw mWDvEZddXJY8Z88bh1A5 VBNjSTAnNOA4gEP5kV3p bGlnbjogbGVmdDsgdmVy oKqyGSszBLvmL337 IHRvcDsnPlBhdGllbnQg EwFfLCd5X4LmOgt5LOLg fMyxKD1ifHPjQMaaNe6f lQnhjRwbVD1dUCJr ujlpa586LaHau8gcMHOv iZPfZMmsSVH2V26sm5N0 WHKqWZXgPQU9qTD9rT0r bGlnbjogbGVmdDsg evWvrWrrVBogPDowM412 IHRvcDsnPkJpcnRoIERh cNN8OQ00XF89bGTdo7L0 lEX9M8FoFTGbgrcx htuofWK4DMFfANLgkJ35 Ts3ukOrsGu2nCRMxKBR0 BQHacXQlA5VjxP1gSoMg EIIyDLNvE4DvqCPk HFfyB992CMdsBeN3DBSy bdVkC9WfNRNtvVcyLtT6 s4Y2Jl7GN9C4ER23KT44 pBGko0U8tIE3G4Xs WOBipdwzbzfltFO2GAAl JFIcdN12Oc2gjIbePx9i GQHnNKY2ALHltRZeD6Hp aW1wKqQjZQUjLGDh J5LgoZUcVMfzI256MXue BoS8KTBqzzPfS6StNAKh hFlpIqN8g8J3Jj5KBNc4 TW46AP51cMDqx8S8 vZB9Z1OtQDZuldzjermk xZB8OUQbNMDsuU58Ue4u gThwCp1aTIRnMKB3LDEk pHSsZ3OjmA3pQxOs IBIoAEKtP4KlvEFyGClt C557HQxrPkT6ZWQmmvFi U0LxJMBroHilCjB9c0Y8 Bn9ELWFwZI21EZR3 pVB5BD33ST44A9UaJkgb dGFibGU+PHRhYmxlIHdp ZHRoPScxMDAlJyBzdHls EL8vAd9wLJZeYDIt nCibxKHzKgLyp9rmGAIw CTwmQX8keUicL3HvyZE0 WYZrw1w2Od29A29cG4Hw dXA+SAWpkJM6oWT3 sG4jQmRaRiA9MOngH744 LbUirFIkVqhhb8vsk8mo dDa0LjT2VWXqevOqsBod ISH3y0SsDh67Y92z IHdpZHRoPSIxNSUiIHZh kJwuji0mhI4qSi9+PGNv rMF5bVH5jB6pPxMdHyS6 JJgyH071CfGjiZAh Znodp0xlp8wuzJp4PvAd RSZmexRxbGntCZQ4z8Qp Eb59Q9CpyFlqt3VuLhr1 rd97kHEsw4L8oXL6 M6SiMWCduiqrtKZluAat PD7qZLPqfipwGCHyvB2j XISjZ9c0VtKnXjB5NLzm S9HnpiW2IXBqkCRg LFxzYRC2A26sv7V5JXMh UZKpBVH4xYY3kT0elMtr bjogbGVmdDsgdmVydGlj CAszBMjoT086HTJh jUolOFSgbU9wSKCihOSi zHaoSE1uZWElxggmYhUJ Qk7FAFEfUJmFZMzQVI6o RTwvdGQ+PHRkIHN0 sEknGLatLHOgkG1vLDQa O6b5KaRwSjU9ZIcgQ3Bm YGJdgldaVe67oY0lQtRy MnB2PGjdF1UzgbN5 IPGvaLQfYAyiGFT1K84t z6Q9DCGnNRRwYIZ4rPQ0 cS1clHsiqqapgWJwaScb dmVydGljYWwtYWxp N315PLVsxDscOwJgFnA6 EgI0AOV6H4JfVgn2BZLe pRykSO3gdVYjBHhqPv5k dItdsYnjLK3lRGGs kpafCZYaoR6jDMVqtVEc iDrtBT3jAWJoubkzd275 PyWxOZQ0KVLplUQtG9Jw sF1uTbWdDMWmCHPx T9SxvUDfTVslR146ANam GsF3OEXkdaRxV3EfZHBr kSeuLiM6d7C2Ho6vPbTS ZWFyczwvdGQ+PHRk QHC0qUskXSoyENBuhH6q MIUoR6o8LyMoTvG3YAfy G1BmLAWakudpVy34iN0p UtOkWbT6FRmwP1Zr jrD0RMRckJRnXBovAPF9 Y08bj5W1NNTqHWQzVHE0 gJT5wU7zxOqbnohdfMAk dDsgdmVydGljYWwt TDmcF348OLLmeNzbBtJb bWFsZTwvdGQ+PHRkIHN0 uLnkWBiwSPEtdU5kCTDm J6z0VnPoWkD3VFlh Q1EjPIEidkckSy76pD1i FlJuErE3RIhdK8BagdY0 JYWjnZNvVRiqUEB2V06j t8M0QRDkXUSzADW6 iHF6xC9fsJeiybhsbXSj dDsgdmVydGljYWwtYWxp U373CZCruPrwXsEgWYSo KL1flVqpwOM+PC90 mv96A0PnJxirZiv2CQVs CGL0zWK1rP0bJRHlQMhh n5D5bJP6I4LgrqGllz8o e1gmLIBrBVjcM13o zRAve3U1RSTnxYH4XBOy oKnlYdMofT22Ixu+PGNv dTyme0QnDcotw8gfk1oh lZt7ReQhCITlvoKd sRniATM5x3MfRi09K63g IHdpZHRoPSIzMCUiIHZh xZcunp3kqX8cNh7+PGNv zUL4zIP0vA9jCoUd YyF7DCbnU164UjDjqPBo Txmpj7bom8glnWk1FmWo RJXyqzXjlCpvAJR1h5Tt En77E6TcoFvmt3In Str2mq52cQAkr1V2rSE0 R1UpJFKodclxfIEjrObe CD6oJCMamlkmERHtvZ3k HSNfP1g5EvSoSxZ7 WTkyO5RlxnR3KLNxmPJy YTQcqBOLiQ5gtixhc4zp qgadJsCoSUKdGHf0UNn4 LWFsaWduOiBsZWZ0 FqW3MPG1uQPruU1afWow yeayaD1eNyj+HCt1k6vd xYZpAC2mxYW1HV73JK58 uRYwn2I2tPE4L1Tf SEUqeuddiiwdwYY2VJQs NPXhaS65Kl9zrUjaXi0s NCLqWCF2PYGvhGXmN4Rj dI0uMdMrWTJyEYOy L8TnyYDvKGlyC495HMet CzN2TNIlcnInG5RmEPUr oWmeJcM7r9E8Mm4ZLA04 WO52AB73zUHec1I0 vHS8L4XcVAYwehvsdsop xLG6TIWkFAAqoN88Wc9y uUujHc2tLRWzKLN3OUKx kRIvE8VscO6aTpDs BBWpGBVbF3TwyOVeEElh Q230GFbhEsE2KOBhcrAe U4ZrZCIdxNjrSgL0a0H7 Mu3ODp55KT49TL43 aAYpp0I1iMU8A1RuDNHd ayrkudsuwFM8RRIbXGJk sM20Es3gfFjzAu5rHGNn SFX8OUElfVDmV3Ex sI9yKcGyROLvGCTeQ3Dm bTHtDTlqD696PImhMdQ8 ZPBzaoTjS3JfKUHjzJdi SjY8h1E8Pl7LHMqy gie9M8WoXvowkMX+PC90 FAVmOT01sSCfcKSfa6lg dHv1EwUwWJOgYOR9lGcw PIvjy4PeCOSjG30w bGFw (more content not included)... [facility] Consent for Treatmenton 08-22 Consent for Treatment [id number] #1.00CD:127 [facility] Discharge Instructionson Discharge Instructions [id number] #1.00CD:127 Normal [facility] ED Clinical Summaryon 2021 ED Clinical Summary [place] [id number] ED Clinical Summary Person Information Name: MEENA LUCERO Gayathri/[facility] Age: 26 Years : 1995 Sex: Female Language: Citizen Of [place] PCP: Charli LOPEZ Marital Status: Single Visit [...] 09/03/2022 15:51:51 09/03/2022 15:51:51 09/03/2022 15:51:51 ADDRESS: [address] [place] [phone] PHYS DOC NOTES: MEDICAL INFORMATION: Prescriptions Given: New Medications [facility], [address] [place], [place] [id number], [phone] ondansetron (Zofran ODT 4 mg Tab-Dis) 1 Tablets By Mouth 3 times a day. Refills: 0. Medications to Continue with No Changes Other Medications multivitamin, ( Multivitamins with Vitamin B Complex, Vitamin C, Minerals and L-Methylfolate oral capsule) 1 Capsules By Mouth every day. Refills: 0. PATIENT EDUCATION INFORMATION: Instructions: Nausea and Vomiting, Adult Follow up: With: Address: When: [place] [address] Business (1) In 3 days 09/06/2022 DIAGNOSIS: Nausea & vomiting [facility] ED Note-Physicianon 09-03-20 ED Note-Physician [...] TID, # 15 tab(s), Refills(s) 0, Pharmacy: [facility], 170, cm, 09/03/22 14:31:00 EDT, Height/Length [...] CARLSON In 3 days 09/06/2022 EDT [address] [place] [id number] [facility] (1) Additional Instructions: Patient Education Nausea and Vomiting, Adult Attestation Patient seen and evaluated by the physician intellectual property legal assistant. Attending physician was present in the emergency department and supervised care. This visit was performed by both the physician and an APC. I performed all aspects of the MDM as documented. This report was transcribed using voice recognition software. Every effort was made to ensure accuracy, however, inadvertently computerized gradall operator mistakes may be present. Appropriate healthcare [...] (09/03/22 14:49:0 (more content not included)... [facility] Comment on above: Result Comment: [...] added (diluted fruit juice). ? Eat bland, kayf-db-pvpdai foods in small amounts as you are able. These foods include bananas, applesauce, rice, lean meats, toast, and crackers. ? Avoid fluids that contain a lot of sugar or caffeine, such as energy drinks, sports drinks, and soda. ? Avoid alcohol. ? Avoid spicy or fatty foods. General instructions ? Take gonz-rgb-phplqva and prescription medicines only as told by your health care provider. ? Drink enough fluid to keep your urine pale yellow. ? Wash your hands often using soap and water. If soap and water are not available, use hand private wealth advisor. ? Make sure that all people in [...] and drinking to prevent dehydration. ? Take doda-lvq-ygfzpoi and prescription medicines only as told by [...] 11/08/2006 Document Revised: 03/01/2020 Document Reviewed: 04/18/2019 [employer] Patient Education ? 2019 [employer] [facility] ED Patient Summaryon 022 ED Patient Summary [place] [id number] Patient Discharge Instructions Person Information Name: MEENA LUCERO Age: 26 Years Arrival Date: 09/03/2022 14:27:10 Discharge Diagnosis: Nausea & vomiting Primary Care Physician: Charli LOPEZ Provider Information Primary Provider: Evan Moyer DO Advanced Finger Buffs Assembler:Neil Meza PA-C The exam and treatment you received in the Emergency Department were for an urgent problem and are not intended as complete care. It is important that you follow up with a doctor, nurse practitioner, or physician?s intellectual property legal assistant for ongoing care. If your symptoms [...] Follow-up Instructions: With: Address: When: Charli CARLSON [address] [place], [place] [id number] Business (1) In 3 days 09/06/2022 In the event that this physician does not participate in your insurance network, please consult with your insurance company to find a nearby participating provider. Patient Education Materials: Nausea and Vomiting, Adult A MESSAGE TO ALL PATIENTS REGARDING OPIOIDS PRESCRIPTION OPIOIDS: WHAT YOU NEED TO KNOW Prescription opioids can be used to help relieve prgjdysi-fe-jcubei pain and are often prescribed following a [...] struggling with addiction, tell your health healthcare management and ask for guidance or call SAMHSA?S National Helpline at 2-164-742-HELP. v Source: [place] Dep (more content not included)... [facility] U BetaHcg Qualon 09-03-2022 HCG.beta subunit (U) [Moles/Vol] Negative [facility] Comment on above: Performed By: #### 2 [id number], [id number] ####[facility] [address] [place] [address] UA With Cult Reflexon 2021 Bacteria LM Ql (Urine sed) 2+ /HPF Abnormal Trace [facility] Comment on above: Performed By: #### 2 [id number] ####[facility] [address] [place] [address] Bilirubin Ql (U) Negative Normal Negative [facility] Comment on above: Performed By: #### 2 [id number], [id number] ####[facility] [address] [place] [address] Clarity (U) CLEAR Normal Clear [facility] Comment on above: Performed By: #### 2 [id number] ####[facility] [address] [place] [address] Color (U) YELLOW Normal Yellow [facility] Comment on above: Performed By: #### 2 [id number], [id number], [id number] ####[facility] [address] [place] [address] Epithelial cells.squamous LM.HPF (Urine sed) [#/Area] 5-8 Normal 0-2 [facility] Comment on above: Performed By: #### 2 [id number], [id number], [id number] ####[facility] [address] [place] [address] Glucose Test strip (U) [Mass/Vol] Negative Normal Negative [facility] Comment on above: Performed By: #### 2 [id number], [id number], [id number] ####[facility] [address] [place] [address] Hemoglobin Ql (U) Negative Normal Negative [facility] Comment on above: Performed By: #### 2 [id number], [id number], [id number] ####[facility] [address] [place] [address] Ketones (U) [Mass/Vol] Negative Normal Negative [facility] Comment on above: Performed By: #### 2 [id number], [id number], [id number] ####[facility] [address] [place] [address] [place].plasma/Lith ium.RBC (Bld) [Mass ratio] 0-3 Normal 0-3 [facility] Comment on above: Performed By: #### 2 [id number], [id number], [id number] ####[facility] [address] [place] [address] Mucus Ql (Urine sed) 1+ Normal [facility] Comment on above: Performed By: #### 2 [id number], [id number], [id number] ####[facility] [address] [place] [address] Nitrite Ql (U) Negative Normal Negative [facility] Comment on above: Performed By: #### 2 [id number], [id number], 0570043 ####[address] [address] pH (U) 5.5 [pH] Invalid Interpretation Code 5.0-9.0 [facility] Comment on above: Performed By: #### 2 [id number], [id number], [id number] ####[address] [address] Protein (U) [Mass/Vol] Negative Normal Negative [facility] Comment on above: Performed By: #### 2 [id number], [id number], 8030918 ####[address] [address] Specific gravity (U) [Rel density] >=1.030 Invalid Interpretation Code 1.005-1.030 [facility] Comment on above: Performed By: #### 2 [id number], [id number], [id number] ####[address] [address] Type of Urine collection method Clean Catch Normal [facility] Comment on above: Performed By: #### 2 [id number], [id number], [id number] ####[facility] [address] [place] [address] Urobilinogen Qn (U) 0.2 {Elver'U}/dL Normal 0.0-1.0 [facility] Comment on above: Performed By: #### 2 [id number] ####[facility] [address] [place] [address] WBC Auto Ql (U) Negative Normal Negative [facility] Comment on above: Performed By: #### 2 [id number] ####[facility] [address] [place] [address] WBC LM.HPF (Urine sed) [#/Area] 0-5 Normal 0-5 [facility] Comment on above: Performed By: #### 2 [id number] ####[facility] [address] [place] [address] XR WRIST LEFT (MIN 3 VIEWS)o n [...] erosion or chondrocalcinosis. IMPRESSION: Normal left wrist. 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 pain has been constant for about 1 week now. History of Present Illness Pt presents today to [facility] care. Previous pt of [facility] in [place]. Concerned today about left wrist pain which started about 1 yr ago; pain has worsened over the last week. 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 Carries everything in her left hand. Right handed. Pain location: medial martinez hand, radiating to wrist Pain description: shooting Pain rated: 2/10, 7/10 with certain movements. 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 Negative Tinels and DeQuervians. + Phalens. Broadcast News Producer strength equal. Neurologic: Cranial nerves II-XII grossly intact. Skin: Mallory, warm and dry. No rashes, ulcerations, or suspicious lesions noted on visible/exposed skin. Mental status: alert and oriented x 3. Normal mood and affect, normal behavior for age. Assessment/Plan 1. Carpal tunnel syndrome on left (G56.02: Carpal tunnel syndrome, left upper limb) Discussed options. Will treat with Ibuprofen, dosing and s/e. reviewed. Declines PT. Will refer to specialist shraddha Kim, advised she will be called to set up appt. Continue to wear wrist brace. Avoid heavy lifting or exacerbating activities. Ordered: ibuprofen, 800 mg = 1 tab(s), Oral, TID, Take with food. Not to exceed 3200 mg/day, X 10 day(s), # 30 tab(s), Refills(s) 1, Pharmacy: [facility], 170, cm, 06/01/22 12:55:00 EDT, Height/Length Dosing, 91.3, kg, 06/01/22 12:55:00 EDT, Weight Dosing [facility] External Ambulatory Referral 2. BMI 31.0-31.9,adult (Z68.31: Body mass index [BMI] 31.0-31.9, adult) The standard range for ages 18 and older is >=18.5 and < 25 kg/m2. Your BMI today was above this range, this falls in the obese category and there are medical benefits to weight loss. We can offer counselling, referral, and/or medical support in addressing this problem. Visit GLIIF.gov for useful information to help make better [...] unspecified fo (more content not included)... Normal [facility] Comment on above: Result Comment: [...] height. This can be done either in [place] or metric measurements. Note that charts are available to help you find your BMI quickly and easily without having to do these calculations yourself. To calculate your BMI in [place] measurements, your health care provider will: [...] problems. ? BMI can be measured using [place] measurements or metric measurements. ? To interpret [...] 07/20/2005 Document Revised: 10/21/2018 Document Reviewed: 09/21/2018 Yu Rong Patient Education ? 2019 [email or web address]. Orthopedics Carpal Tunnel Syndrome Carpal tunnel syndrome [...] Having a job, such as being a call center agent or a deputy director of nursing, that requires you to repeatedly move your [...] and midd (more content not included)... Normal [facility] Physician Referralon 022 Physician Referral [id number] #[id number] Normal [facility] Vital Signs Date Time Vital Sign Value Performing Clinician Ayad lozoya 02-13-2025 08:58-0400 Body mass index (BMI) [Ratio] 38.11 kg/m2 Gary Robison [employer] Work Phone: [facility] 02-13-2025 08:58-0400 Body weight 103.87 kg Gary Enriqueta DO Work Phone: [facility] 02-13-2025 08:58-0400 Diastolic blood pressure 74 mm[Hg] Gary Enriqueta DO Work Phone: [facility] 02-13-2025 08:58-0400 Systolic blood pressure 120 mm[Hg] Gary Enriqueta DO Work Phone: [facility] 01-16-2025 08:41-0500 Body mass index (BMI) [Ratio] 38.07 kg/m2 Gary Enriqueta DO Work Phone: [facility] 01-16-2025 08:41-0500 Body weight 103.78 kg Gary Enriqueta DO Work Phone: [facility] 01-16-2025 08:41-0500 Diastolic blood pressure 70 mm[Hg] Gary Enriqueta DO Work Phone: [facility] 01-16-2025 08:41-0500 Systolic blood pressure 110 mm[Hg] Gary Enriqueta DO Work Phone: [facility] 12-19-2024 10:19-0500 Body mass index (BMI) [Ratio] 37.44 kg/m2 Gary Enriqueta DO Work Phone: [facility] 12-19-2024 10:19-0500 Body weight 102.06 kg Gary Enriqueta DO Work Phone: [facility] 12-19-2024 10:19-0500 Diastolic blood pressure 76 mm[Hg] Gary Enriqueta DO Work Phone: [facility] 12-19-2024 10:19-0500 Systolic blood pressure 122 mm[Hg] Gary Enriqueta DO Work Phone: [facility] 11-20-2024 09:42-0500 Body mass index (BMI) [Ratio] 36.61 kg/m2 Genevieve MARIA Work Phone: [facility] 11-20-2024 09:42-0500 Body weight 99.79 kg Genevieve MARIA Work Phone: [facility] 11-20-2024 09:42-0500 Diastolic blood pressure 74 mm[Hg] Genevieve MARIA Work Phone: [facility] 11-20-2024 09:42-0500 Systolic blood pressure 120 mm[Hg] Genevieve MARIA Work Phone: [facility] 10-17-2024 13:10-0500 Body mass index (BMI) [Ratio] 35.35 kg/m2 Gary Enriqueta DO Work Phone: [facility] 10-17-2024 13:10-0500 Body weight 96.34 kg Gary Enriqueta DO Work Phone: [facility] 10-17-2024 13:10-0500 Diastolic blood pressure 70 mm[Hg] Gary Enriqueta DO Work Phone: [facility] 10-17-2024 13:10-0500 Systolic blood pressure 120 mm[Hg] Gary Enriqueta DO Work Phone: [facility] 09-18-2024 11:15-0400 Body mass index (BMI) [Ratio] 35.2 kg/m2 Gary Enriqueta DO Work Phone: [facility] 09-18-2024 11:15-0400 Body weight 95.94 kg Gary Enriqueta DO Work Phone: [facility] 09-18-2024 11:15-0400 Diastolic blood pressure 74 mm[Hg] Gary Enriqueta DO Work Phone: [facility] 09-18-2024 11:15-0400 Systolic blood pressure 122 mm[Hg] Gary Enriqueta DO Work Phone: [facility] 08-18-2024 10:28-0400 Body mass index (BMI) [Ratio] 34.95 kg/m2 [facility] Nurse [facility] 08-18-2024 10:28-0400 Body weight 95.25 kg [facility] Nurse [facility] 01-10-2023 14:29-0500 Body height 165.1 cm Fei Canales MD Work Phone: [facility] 01-10-2023 14:29-0500 Body mass index (BMI) [Ratio] 34.35 kg/m2 Fei Canales MD Work Phone: [facility] 01-10-2023 14:29-0500 Body temperature 98.49 [degF] Fei Canales MD Work Phone: [facility] 01-10-2023 14:29-0500 Body weight 93.62 kg Fei Canales MD Work Phone: [facility] 01-10-2023 14:29-0500 Diastolic blood pressure 79 mm[Hg] Fei Canales MD Work Phone: [facility] 01-10-2023 14:29-0500 Heart rate 75 /min Fei Canales MD Work Phone: [facility] 01-10-2023 14:29-0500 Respiratory rate 16 /min Fei Canales MD Work Phone: [facility] 01-10-2023 14:29-0500 SaO2% (BldA) [Mass fraction] 99 % Fei Canales MD Work Phone: [facility] 01-10-2023 14:29-0500 Systolic blood pressure 140 mm[Hg] Fei Canales MD Work Phone: [facility] 12-08-2022 11:51-0500 Blood Pressure Location Keyon DAVIS [facility] 12-08-2022 11:51-0500 Body temperature 98.24 [degF] Keyon DAVIS [facility] 12-08-2022 11:51-0500 Diastolic blood pressure 78 mm[Hg] Keyon DAVIS [facility] 12-08-2022 11:51-0500 Heart rate 84 /min Keyon DAVIS [facility] 12-08-2022 11:51-0500 Respiratory rate 16 /min Keyon DAVIS [facility] 12-08-2022 11:51-0500 SaO2% (BldA) [Mass fraction] 100 % Keyon DAVIS [facility] 12-08-2022 11:51-0500 Systolic blood pressure 114 mm[Hg] Keyon DAVIS [facility] 12-04-2022 16:32-0500 Body mass index (BMI) [Ratio] 33.66 kg/m2 Jason Tracy MD Work Phone: [facility] 12-04-2022 16:32-0500 Body temperature 98.49 [degF] Jason Tracy MD Work Phone: [facility] 12-04-2022 16:32-0500 Body weight 91.76 kg Jason Tracy MD Work Phone: [facility] 12-04-2022 16:32-0500 Diastolic blood pressure 75 mm[Hg] Jason Tracy MD Work Phone: [facility] 12-04-2022 16:32-0500 Heart rate 91 /min Jason Tracy MD Work Phone: [facility] 12-04-2022 16:32-0500 Respiratory rate 16 /min Jason Tracy MD Work Phone: [facility] 12-04-2022 16:32-0500 SaO2% (BldA) [Mass fraction] 99 % Jason Tracy MD Work Phone: [facility] 12-04-2022 16:32-0500 Systolic blood pressure 123 mm[Hg] Jason Tracy MD Work Phone: [facility] 06-01-2022 12:50-0400 Blood Pressure Location Meena Carl [facility] 06-01-2022 12:50-0400 Body temperature 96.98 [degF] Meena Carl [facility] 06-01-2022 12:50-0400 Diastolic blood pressure 60 mm[Hg] Meena Carl [facility] 06-01-2022 12:50-0400 Heart rate 88 /min Meena Carl [facility] 06-01-2022 12:50-0400 SaO2% (BldA) [Mass fraction] 97 % Meena Carl [facility] 06-01-2022 12:50-0400 Systolic blood pressure 122 mm[Hg] Meena Carl [facility] 09-14-2021 10:15-0400 Body mass index (BMI) [Ratio] 31.62 kg/m2 Keyon Wilkinson MD Work Phone: [facility] Work Phone: 09-14-2021 10:15-0400 Body weight 86.18 kg Keyon Wilkinson MD Work Phone: [facility] Work Phone: 09-14-2021 10:14-0400 Body height 165.1 cm Keyon Wilkinson MD Work Phone: [facility] Work Phone: 09-14-2021 10:14-0400 Body temperature 98.2 [degF] Keyon Wilkinson MD Work Phone: [facility] Work Phone: 09-14-2021 10:14-0400 Diastolic blood pressure 93 mm[Hg] Keyon Wilkinson MD Work Phone: [facility] Work Phone: 09-14-2021 10:14-0400 Heart rate 91 /min Keyon Wilkinson MD Work Phone: [facility] Work Phone: 09-14-2021 10:14-0400 Respiratory rate 20 /min Keyon Wilkinson MD Work Phone: [facility] Work Phone: 09-14-2021 10:14-0400 SaO2% (BldA) [Mass fraction] 96 % Keyon Wilkinson MD Work Phone: [facility] Work Phone: 09-14-2021 10:14-0400 Systolic blood pressure 131 mm[Hg] Keyon Wilkinson MD Work Phone: [facility] Work Phone: Encounters Encounter Date Encounter Type Care Provider Facility Start: 02-20-2025 End: 02-20-2025 Clinisync Result Encounter Genevieve MARIA Work Phone: [facility] Unsolicited Start: 02-20-2025 End: 02-20-2025 Clinisync Result Encounter Genevieve MARIA Work Phone: [facility] Unsolicited Start: 02-14-2025 End: 02-14-2025 Subsequent hospital visit by physician John Partida DO Work Phone: [facility] Start: 02-13-2025 End: 02-13-2025 Office outpatient visit 15 minutes Gary Robison DO Work Phone: [facility] Comment on above: Third trimester preg wily; 32 weeks gestation of ; Excessive growth affecting management of , antepartum, single or unspecified fetus Start: 02-13-2025 End: 02-13-2025 ambulatory GARY ENRIQUETA Not Available Start: 01-30-2025 End: 01-30-2025 ambulatory GENEVIEVE CALDERON Not Available Start: 01-29-2025 End: 01-29-2025 ambulatory JOHN Sarkis [facility] Start: 01-29-2025 End: 01-29-2025 Subsequent hospital visit by physician John Partida DO Work Phone: [facility] Comment on above: Arrived [...] Not Available Start: 01-15-2025 End: [facility] Start: 01-15-2025 End: 01-15-2025 Subsequent hospital visit by physician John Partida DO Work Phone: [facility] Comment on above: Arrived Start: 01-12-2025 End: 01-12-2025 ambulatory [facility] Start: 01-12-2025 End: 01-12-2025 Subsequent hospital visit by physician John Partida DO Work Phone: [facility] Comment on above: Arrived Start: 01-10-2025 End: 01-10-2025 [facility] Start: 01-10-2025 End: 01-10-2025 Subsequent hospital visit by physician John Partida DO Work Phone: [facility] Comment on above: Arrived Start: 01-05-2025 End: 01-05-2025 [facility] Start: 01-05-2025 End: 01-05-2025 Subsequent hospital visit by physician John Partida DO Work Phone: [facility] Comment on above: Arrived Start: 01-02-2025 End: 01-02-2025 [facility] Start: 01-02-2025 End: 01-02-2025 Subsequent hospital visit by physician John Partida DO Work Phone: [facility] Comment on above: Arrived Start: 12-29-2024 End: 12-29-2024 [facility] Start: 12-29-2024 End: 12-29-2024 Subsequent hospital visit by physician John Partida DO Work Phone: [facility] Comment on above: Arrived Start: 12-27-2024 End: 12-27-2024 ambulatory [facility] Start: 12-27-2024 End: 12-27-2024 Subsequent hospital visit by physician John Partida DO Work Phone: [facility] Comment on above: Arrived Start: 12-25-2024 End: 12-25-2024 Clinisync Result Encounter Gary Barcenaso DO Work Phone: [facility] Unsolicited Start: 12-25-2024 End: 12-25-2024 Clinisync Result Encounter Gary Enriqueta DO Work Phone: [facility] Unsolicited Start: 12-22-2024 End: 12-22-2024 [facility] Start: 12-22-2024 End: 12-22-2024 Subsequent hospital visit by physician John Partida DO Work Phone: [facility] Comment on above: Arrived Start: 12-20-2024 End: 12-20-2024 [facility] Start: 12-20-2024 End: 12-20-2024 Subsequent hospital visit by physician John Partida DO Work Phone: [facility] Comment on above: Arrived Start: 12-19-2024 End: 12-19-2024 Clinisync Result Encounter Genevieve MARIA Work Phone: [facility] Unsolicited Start: 12-19-2024 End: 12-19-2024 Clinisync Result Encounter Genevieve Liceacait MARIA Work Phone: [facility] External [facility] Unsolicited [...] ENRIQUETA Not Available Start: 12-15-2024 End: 12-15-2024 [facility] Start: 12-13-2024 End: 12-13-2024 [facility] Start: 12-13-2024 End: 12-13-2024 Subsequent hospital visit by physician John Partida DO Work Phone: [facility] Comment on above: Arrived Start: 12-06-2024 End: 12-06-2024 ambulatory JOHN J [facility] Start: 12-06-2024 End: 12-06-2024 Subsequent hospital visit by physician John Partida DO Work Phone: [facility] Comment on above: Arrived Start: [...] by physician John Partida DO Work Phone: [facility] Start: 10-17-2024 End: 10-29-2024 Clinisync [...] encounter status Gary Enriqueta DO Work Phone: [facility] Start: 10-12-2024 End: 10-12-2024 [facility] Start: 10-12-2024 End: 10-12-2024 Subsequent hospital visit by physician John Partida DO Work Phone: [facility] Comment on above: Arrived Start: 10-10-2024 End: 10-10-2024 [facility] Start: 10-10-2024 End: 10-10-2024 Subsequent hospital visit by physician John Partida DO Work Phone: [facility] Comment on above: Arrived Start: 10-04-2024 End: 10-04-2024 Subsequent hospital visit by physician John Partida DO Work Phone: [facility] Start: 10-04-2024 [facility] Start: 09-18-2024 End: 09-18-2024 Office [...] Unsolicited Start: 08-07-2024 End: 08-07-2024 ambulatory GARY AGUILAR [facility] Start: 08-07-2024 End: 08-07-2024 Subsequent hospital visit by physician Óscar Nassar DNP Work Phone: [facility] Start: 08-02-2024 End: 08-02-2024 Clinisync Result Encounter Gary Enriqueta DO Work Phone: [facility] Unsolicited Start: 08-02-2024 End: 08-02-2024 Clinisync Result Encounter Gary Enriqueta DO Work Phone: [facility] Unsolicited Start: 08-02-2024 End: 08-02-2024 ambulatory [facility] Start: 07-31-2024 End: 07-31-2024 Clinisync Result Encounter Gary Enriqueta DO Work Phone: [facility] Unsolicited Start: 07-31-2024 End: 07-31-2024 Clinisync Result Encounter Gary Enriqueta DO Work Phone: [facility] Unsolicited Start: 07-31-2024 End: 07-31-2024 ambulatory [facility] Start: 07-31-2024 End: 07-31-2024 Subsequent hospital visit by physician Óscar Nassar DNP Work Phone: [facility] Start: 07-29-2024 End: 07-29-2024 Clinisync Result Encounter Gary Enriqueta DO Work Phone: [facility] Unsolicited Start: 07-29-2024 End: 07-29-2024 Clinisync Result Encounter Gary Enriqueta DO Work Phone: [facility] Unsolicited Start: 07-29-2024 End: 07-29-2024 ambulatory [facility] Start: 07-27-2024 End: 07-27-2024 Clinisync Result Encounter Gary Enriqueta DO Work Phone: [facility] Unsolicited Start: 07-27-2024 End: 07-27-2024 Clinisync Result Encounter Gary Enriqueta DO Work Phone: [facility] Unsolicited Start: 07-27-2024 End: 07-27-2024 [facility] Start: 07-27-2024 End: 07-27-2024 Subsequent hospital visit by physician John Partida DO Work Phone: [facility] Comment on above: Arrived Start: 07-25-2024 End: 07-25-2024 [facility] Start: 07-21-2024 End: 07-21-2024 [facility] Start: 07-19-2024 End: 07-19-2024 [facility] Start: 07-13-2024 End: 07-13-2024 Subsequent hospital visit by physician John Partida DO Work Phone: [facility] Comment on above: Arrived Start: 07-13-2024 End: 07-13-2024 [facility] Start: 07-06-2024 End: 07-06-2024 Subsequent hospital visit by physician John Partida DO Work Phone: [facility] Start: 06-29-2024 End: 06-29-2024 [facility] Start: 06-29-2024 End: 06-29-2024 Subsequent hospital visit by physician Jonh Partida DO Work Phone: [facility] Physical [facility] Comment on above: Arrived Start: 06-26-2024 End: 06-26-2024 ambulatory [facility] Start: 06-22-2024 End: 06-22-2024 ambulatory [facility] Start: 06-20-2024 End: 06-20-2024 ambulatory [facility] Start: 06-16-2024 End: 06-16-2024 ambulatory [facility] Start: 06-14-2024 End: 06-14-2024 ambulatory [facility] Start: 06-08-2024 End: 06-08-2024 ambulatory ÓSCAR NASSAR [facility] Start: 06-08-2024 End: 06-08-2024 [facility] Start: 05-22-2024 End: 05-24-2024 [facility] Start: 05-22-2024 End: 05-24-2024 Subsequent hospital visit by physician Óscar Nassar DNP Work Phone: [facility] Start: 03-06-2024 End: 03-06-2024 ambulatory GARY ROBISON Not Available Start: 03-04-2024 End: 03-04-2024 ambulatory [facility] Start: 03-04-2024 Emergency department patient visit [facility] Start: 04-09-[address] NONE LISTED REQUEST Facility: Start: 01-29-2023 End: 01-31-2023 Subsequent hospital visit by physician Neeru [facility] Comment on above: Other closed fractur e of proximal end of right fibula with routine healing, subsequent encounter Start: 01-29-2023 End: 01-31-2023 Subsequent hospital visit by physician Keyon Davis MD Work Phone: [facility] Start: 01-10-2023 End: 01-10-2023 Emergency department patient visit Fei Canales MD Work Phone: [facility] Comment on above: Injury of right ankl e, initial encounter (Primary Dx) Start: 12-08-2022 End: 12-09-2022 ambulatory Cordellorin DAVIS Facility:[facility] Start: 12-08-2022 End: 12-08-2022 Patient encounter procedure Keyon DAVIS [facility] [place] Start: 12-04-2022 End: 12-04-2022 Emergency department patient visit Jason Tracy MD Work Phone: [facility] Comment on above: Viral illness (Prima ry Dx) Start: 09-03-2022 End: 09-03-2022 Emergency department patient visit Evan Moyer Facility[facility] Start: 06-19-2022 End: 06-21-2022 Subsequent hospital visit by physician [facility] Comment on above: Left wrist pain Start: 06-01-2022 End: 06-02-2022 ambulatory ANTHONY Carl Facility:[facility] Start: 06-01-2022 End: 06-01-2022 Patient encounter procedure Meena Carl [facility] Start: 05-28-2022 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 Meena Carl Faci lity:[facility] Start: 09-14-2021 End: 09-14-2021 Emergency department patient visit Keyon Wilkinson MD Work Phone: [facility] Comment on above: Subacute bronchitis (Primary Dx) Procedures Date Procedure Procedure Detail Performing Clinician Start: 02-20-2025 US OB BPP W NON-STRESS Genevieve MARIA Work Phone: Start: 02-13-2025 Urnls dip stick/tabl et rgnt [...] Start: 08-07-2024 ALL HCG, QUANTITATIVE C marco Barcenaso DO Work Phone: Start: 08-07-2024 Gonadotropin [...] Carl Tonsils and adenoids postoperative education Meena Siddhartha Plan of Treatment Date Care Activity Detail Author Start: 2069 Respiratory Syncytia l Virus (RSV) or age 60 yrs+ (1 - 1-dose 75+ series) Respiratory Syncytial Virus (RSV) or age 60 yrs+ (1 - 1-dose 75+ series) [facility] Start: 2054 Respiratory Syncytia l Virus (RSV) or age 60 yrs+ (1 - 1-dose 60+ series) Respiratory Syncytial Virus (RSV) or age 60 yrs+ (1 - 1-dose 60+ series) [facility] Start: 05-26-2028 Screening for malign ant neoplasm of cervix HPV/Cotest [facility] Start: 10-17-2027 Screening for malign ant neoplasm of cervix [facility] Start: 03-14-2025 Depression Screen Depression Screen [facility] Start: 02-28-2025 End: 02-28-2025 Patient encounter procedure 02/28/2025 11:10 AM EDT Routine [facility] [address] [address] Gary Robison DO [address] Emma Juarez, [facility] Start: 02-28-2025 End: 02-28-2025 Professional / ancillary services management 02/28/2025 10:30 AM EDT Ancillary Procedure [facility] [address] [place] [address] [facility] Start: 02-14-2025 End: 02-14-2025 Patient encounter procedure 02/14/2025 9:00 AM EDT Appointment [facility] [address] [place] [address] John Partida, DO [address] [place] [address] Clara Castrejon, PT *[employer] 15 of 30 [...] procedure 01/30/2025 8:50 AM EDT Routine [facility] [address] [id number] Genevieve Calderon PA [address] [place] [address] [facility] Start: 01-29-2025 End: 01-29-2025 Patient encounter procedure 01/29/2025 9:00 AM EDT Appointment [facility] [address] [place] [address] John Partida, DO [address] [place] [address] Clara Castrejon, PT *[employer] 15 of 30 Sacral Pain, [facility] Comment on above: *[employer] 15 of 30 Sacral Pain, Start: 01-18-2025 End: 01-18-2025 Patient encounter procedure 01/18/2025 8:00 AM EST Appointment [facility] [address] [place] [address] John Partida, DO [address] [place] [address] Clara Castrejon, PT *[facility] 14 of 30 Sacral Pain, [facility] Comment on above: *[facility] 14 of 30 Sacral Pain, Start: 01-16-2025 End: 01-16-2025 Patient encounter procedure [facility] Comment on above: Arrived Start: 01-16-2025 End: 01-16-2025 Professional / ancillary services management 01/16/2025 8:00 AM EST Ancillary Procedure [facility] [address] [place] [id number] [facility] Start: 01-15-2025 End: 01-15-2025 Patient encounter procedure 01/15/2025 9:00 AM EST Appointment [facility] [address] [place] [address] John Partida, [address] [place] [address] Clara Castrejon, PT *[employer] 13 of 30 [...] Hospital Encounter [facility] [address] [place] [address] John Partida DO [address] [place] [address] Lauryn Edwards [facility] Start: 01-02-2025 End: 01-02-2025 Patient encounter procedure 01/02/2025 8:00 AM EST Appointment [facility] [address] [place] [address] John Partida, DO [address] [facility] [place] [address] Clara Castrejon, PT *[facility] 8 of 30 Sacral Pain, [facility] Comment on above: *[facility] 8 of 30 Sacral Pain, Start: 12-29-2024 End: 12-29-2024 Patient encounter procedure 12/29/2024 11:15 AM EST Appointment [facility] [address] [place] [address] John Partida, DO [address] [facility] [place] [address] Clara Castrejon, PT *[facility] 7 of 30 Sacral Pain, [facility] Comment on above: *[facility] 7 of 30 Sacral Pain, Start: 12-27-2024 End: 12-27-2024 Patient encounter procedure 12/27/2024 9:00 AM EST Appointment [facility] [address] [place] [address] John Partida, DO [address] [place] [address] Austen Puga PTA *[facility] 6 of 30 Sacral Pain, [facility] Comment on above: *[facility] 6 of 30 Sacral Pain, Start: 12-22-2024 End: 12-22-2024 Patient encounter procedure 12/22/2024 8:00 AM EST Appointment [facility] [address] [place] [address] John Partida, DO [address] [facility] [place] [address] Austen Puga MELON PACKER *[facility] 5 of 30 Sacral Pain, [facility] Comment on above: *[facility] 5 of 30 Sacral Pain, Start: 12-20-2024 End: 12-20-2024 Patient encounter procedure 12/20/2024 9:00 AM EST Appointment [facility] [address] [place] [address] John Partida, DO [address] [place] [address] Clara Castrejon, PT *[facility] 4 of 30 Sacral Pain, [facility] Comment on above: *[facility] 4 of 30 Sacral Pain, Start: 12-19-2024 End: 12-19-2024 Patient encounter procedure 12/19/2024 9:50 AM EST Routine [facility] [address] [place] [address] Gary Robison DO [address] [place] [address] [facility] Start: 12-15-2024 End: 12-15-2024 Patient encounter procedure 12/15/2024 8:15 AM EST Appointment [facility] [address] [place] [address] John Partida, DO [address] [facility] [place] [address] Clara Castrejon, PT *[facility]ource 3 of 30 Sacral Pain, [facility] Comment on above: *[facility]aresource 3 of 30 Sacral Pain, Start: 12-13-2024 End: 12-13-2024 Patient encounter procedure 12/13/2024 9:45 AM EST Appointment [facility] [address] [place] [address] John Partida, DO [address] [facility] [place] [address] Trinity Browning *[facility]ource 2 of 30 Sacral Pain, [facility] Comment on above: *[facility] 2 of 30 Sacral Pain, Start: 2024 Screening for malign ant neoplasm of cervix [facility] Start: 11-20-2024 End: 11-20-2025 CBC panel - [...] mellitus screening Expected: 11/20/2024 (Approximate), Expires: 11/20/2025 [facility] Comment on above: Expected: 11/20/2024 (Approximate), Expires: 11/20/2025 Start: 11-20-2024 End: 11-20-2024 Patient encounter procedure 11/20/2024 9:20 AM EST Routine [facility] [address] [place] [address] Genevieve Calderon PA [address] [facility] [address] [place], [place] [id number] [facility] Start: 11-20-2024 End: 11-20-2024 Professional / ancillary services management 11/20/2024 8:00 AM EST Ancillary Procedure [facility] [address] [place] [address] [facility] Start: 10-17-2024 End: 01-17-2025 Alpha [...] AM EST Routine [facility] [address] [address] Gary Robison DO [address] [facility] [place] [address] [facility] Start: 10-17-2024 End: 10-17-2024 Patient encounter procedure 10/17/2024 8:15 AM EST Appointment [facility] [address] [facility] [place] [address] John Partida, DO [address] [place] [address] Trinity Browning 16 of 30 Sacral Pain, [facility] Comment on above: 16 of 30 Sacral Pain , Start: 10-12-2024 End: 10-12-2024 Patient encounter procedure 10/12/2024 8:00 AM EST Appointment [facility] [address] [place] [address] John Partida, DO [address] [place] [address] Clara Castrejon, PT 15 of 30 Sacral Pain, [facility] Comment on above: 15 of 30 Sacral Pain , Start: 10-10-2024 End: 10-10-2024 Patient encounter procedure 10/10/2024 9:30 AM EST Appointment [facility] [address] [place] [address] John Partida, DO [address] [place] [address] Clara Castrejon, PT 14 of 30 Sacral Pain, [facility] Comment on above: 14 of 30 Sacral Pain , Start: 09-18-2024 End: 09-18-2024 Patient encounter procedure 09/18/2024 10:40 AM EDT Routine [facility] [address] [place] [id number] Gary Robison DO [address] [place] [address] [facility] Start: 08-18-2024 End: 08-18-2025 ABO/Rh ABO/Rh Lab Routine Missed menses , unspecified gestational age Expected: 08/18/2024 (Approximate), Expires: 08/18/2025 [facility] Comment on above: Expected: 08/18/2024 (Approximate), Expires: 08/18/2025 Start: 08-18-2024 End: 08-18-2025 Blood type and Indirect antibody screen panel - Blood Type and screen Lab Routine Missed menses , unspecified gestational age Expected: 08/18/2024 (Approximate), Expires: 08/18/2025 [facility] Work Phone: Comment on above: Expected: 08/18/2024 (Approximate), Expires: 08/18/2025 Start: 08-18-2024 End: 08-18-2025 Drugs of abuse panel - Urine by Screen method Rapid drug screen, urine Lab Routine , unspecified gestational age Encounter for supervision of normal first in first trimester Expected: 08/18/2024 (Approximate), Expires: 08/18/2025 [facility] Comment on above: Expected: 08/18/2024 (Approximate), Expires: 08/18/2025 Start: 08-18-2024 End: 08-18-2025 US Pelvis transvaginal US OB transvaginal Imaging Routine Missed menses Expected: 08/18/2024 (Approximate), Expires: 08/18/2025 [facility] Comment on above: Expected: 08/18/2024 (Approximate), Expires: 08/18/2025 Start: 08-18-2024 End: 08-18-2024 ambulatory 08/18/2024 9:30 AM EDT Initial [facility] [address] [facility] [place] [address] [facility] Start: 08-18-2024 End: 08-18-2024 Professional / ancillary services management 08/18/2024 9:00 AM EDT Ancillary Procedure [facility] [address] [place] [address] [facility] Start: 07-23-2024 COVID-19 Vaccine ( season) COVID-19 Vaccine ( season) [facility] Start: 07-23-2024 COVID-19 Vaccine ( season) COVID-19 Vaccine ( season) [facility] Start: 07-23-2024 Influenza vaccination Influenza Vacc ine (#1) [facility] Start: 07-19-2024 End: 07-19-2024 Patient encounter procedure 07/19/2024 8:00 AM EDT Appointment [facility] [address] [place] [id number] John Partida, DO [address] [place] [id number] Asia Mix, PT [address] [place] [id number] [facility] Start: 07-13-2024 End: 07-13-2024 Patient encounter procedure [facility] Start: 07-06-2024 End: 07-06-2024 Patient encounter procedure 07/06/2024 9:00 AM EDT Appointment [facility] [address] [place] [address] John Partida, DO [address] [place] [address] Asia Mix, PT [address] [place] [address] [facility] Start: 06-22-2024 Influenza vaccination Flu vaccine (# 1) [facility] Start: 07-23-2023 COVID-19 Vaccine ( season) COVID-19 Vaccine ( season) [facility] Start: 07-23-2022 Influenza vaccination Flu vaccine (# 1) [facility] Start: 06-22-2022 Influenza vaccination Flu vaccine (# 1) [facility] Start: 07-23-2021 Influenza vaccination Flu vaccine (# 1) [facility] [employer] Phone: Start: 08-02-2017 DTaP/Tdap/Td vaccine (2 - Td or Tdap) DTaP/Tdap/Td vaccine (2 - Td or Tdap) [facility] Start: 2015 Screening for malign ant neoplasm of cervix Pap smear [facility] Start: 2013 DTaP/Tdap/Td vaccine (1 - Tdap) DTaP/Tdap/Td vaccine (1 - Tdap) [facility] [employer] Phone: Start: 2013 Hepatitis B vaccine (1 of 3 - 19+ 3-dose series) Hepatitis B vaccine (1 of 3 - 19+ 3-dose series) [facility] Start: 2012 Hepatitis C screening Hepatitis C sc reen [facility] Start: 2009 HIV screening HIV screen [facility] Start: 2006 COVID-19 Vaccine (1) COVID-19 Vaccin e (1) [facility] Phone: Start: 2006 Depression Screen Depression Screen [facility] Start: 2005 HPV vaccine (1 - 2-d ose series) HPV vaccine (1 - 2-dose series) [facility] [employer] Phone: Start: 1998 Varicella vaccine (2 of 2 - 2-dose childhood series) Varicella vaccine (2 of 2 - 2-dose childhood series) [facility] Start: 1995 Varicella vaccine (1 of 2 - 2-dose childhood series) Varicella vaccine (1 of 2 - 2-dose childhood series) [employer] Phone: Start: 05-30-1995 COVID-19 Vaccine (#1) COVID-19 Vacci ne (#1) [facility] Start: 1994 Hepatitis B vaccine (1 of 3 - 3-dose series) Hepatitis B vaccine (1 of 3 - 3-dose series) [facility] Start: 1994 Hepatitis C screening Hepatitis C sc [facility] [employer] Phone: Bacteria identified in Urine by Culture Urine culture Microbiology Routine Missed menses Ordered: 08/18/2024 [facility] Comment on above: Ordered: 08/18/2024 CBC W Auto Different ial panel - Blood CBC and differential Lab Routine Missed menses , unspecified gestational age Ordered: 08/18/2024 [facility] Comment on above: Ordered: 08/18/2024 CHLAMYDIA TRACHOMATI S (GENITO/STI) CHLAMYDIA TRACHOMATIS (GENITO/STI) Lab Routine Vaginal discharge STD exposure Ordered: 10/17/2024 [facility] Comment on above: Ordered: 10/17/2024 Cytology Cervical or vaginal smear or scraping study Pap Smear Pathology and Cytology Routine Encounter for gynecological examination without abnormal finding Ordered: 10/17/2024 [facility] Comment on above: Ordered: 10/17/2024 Hemoglobin A1c/Hemoglobin.total in Blood Hemoglobin A1c Lab Routine Missed menses , unspecified gestational age Ordered: 08/18/2024 [facility] Comment on above: Ordered: 08/18/2024 Hepatitis B virus surface Ag [Presence] in Serum or Plasma by Immunoassay Hepatitis B surface antigen Lab Routine Missed menses , unspecified gestational age Ordered: 08/18/2024 [facility] Comment on above: Ordered: 08/18/2024 Hepatitis C virus Ab [Presence] in Serum or Plasma by Immunoassay Hepatitis C antibody Lab Routine Missed menses , unspecified gestational age Ordered: 08/18/2024 [facility] Comment on above: Ordered: 08/18/2024 HIV-1/HIV-2 antigen/antibody combination immunoassay HIV-1 and HIV-2 antibodies Lab Routine Missed menses , unspecified gestational age Ordered: 08/18/2024 [facility] Comment on above: Ordered: 08/18/2024 Neisseria gonorrhoea e DNA [Presence] in Unspecified specimen by WADE with probe detection Neisseria gonorrhea DNA probe, direct Lab Routine Vaginal discharge STD exposure Ordered: 10/17/2024 [facility] Comment on above: Ordered: 10/17/2024 Platelets [#/volume] in Blood Platelet count Lab Routine Low platelet count (CMS/HCC) Ordered: 12/19/2024 [facility] Work Phone: Comment on above: Ordered: 12/19/2024 Reagin Ab [Presence] in Serum by RPR RPR Lab Routine Missed menses , unspecified gestational age Ordered: 08/18/2024 [facility] Comment on above: Ordered: 08/18/2024 Rubella antibody, IgG Rubella an tibody, IgG Lab Routine Missed menses , unspecified gestational age Ordered: 08/18/2024 [facility] Comment on above: Ordered: 08/18/2024 SURESWAB(R) ADVANCED VAGINITIS PLUS, TMA SURESWAB(R) ADVANCED VAGINITIS PLUS, TMA Pathology and Cytology Routine Vaginal discharge STD exposure Ordered: 10/17/2024 [facility] Comment on above: Ordered: 10/17/2024 Immunizations Immunization Date Immunization Notes Care Provider Jaci masterson 02-16-2008 Hep A, unspecified formulation Meena Carl [facility] 08-02-2007 Hep A, unspecified formulation Meena Carl [facility] 08-02-2007 meningococcal ACWY vaccine, unspecified formulation Meena Carl [facility] 08-02-2007 tetanus toxoid, reduced diphtheria toxoid, and acellular pertussis vaccine, adsorbed Meena Carl [facility] 08-19-2000 DTaP, unspecified formulation Meena Carl [facility] 08-19-2000 measles, mumps and rubella virus vaccine Meena Carl [facility] 10-10-1997 varicella virus vaccine Meena Carl [facility] 03-09-1996 DTaP, unspecified formulation Meena Carl [facility] 03-09-1996 Hib, unspecified formulation Meena Carl [facility] 03-09-1996 measles, mumps and rubella virus vaccine Meena Carl [facility] 06-11-1995 DTP-Hib Meena Carl [facility] 06-11-1995 hepatitis B vaccine, pediatric or pediatric/adolescent dosage Meena Carl [facility] 04-05-1995 DTP-Hib Meena Carl [facility] 02-01-1995 DTP-Hib Meena Aguilarell [facility] 01-04-1995 hepatitis B vaccine, pediatric or pediatric/adolescent dosage Meena Siddhartha [facility] 1994 hepatitis B vaccine, pediatric or pediatric/adolescent dosage Meena Siddhartha [facility] NEGATED: Highlighted row has not occurred!12-08-2022 influenza virus vaccine, unspecified formulation Keyon DAVIS [facility] [place] NEGATED: Highlighted row has not occurred!12-08-2022 SARS-CoV-2 mRNA (tozinameran 5y-11y) vaccine Keyon DAVIS [facility] [place] Payers Date Payer Category Payer Medicaid [employer] [place] [id number] 2022-Present [address] [place] [id number] 2022 Private Health Insurance [facility] MEDICAID [id number] 2014 Unknown [id number] 1.2.840.534906.1.13.239.2. 7.3.125525.315 1994 Unknown [id number] 2.840.1.768411.3.579.2. 727 1994 Unknown [id number] 2.16.840.1.801499.3.579.2. 727 1994 Unknown [id number] 2.16.840.1.013928.3.579.2. 727 1994 Unknown [id number] 2.16.840.1.633379.3.579.2. 727 1994 Unknown [id number] 2.16.840.1.342915.3.579.2. 593 1994 Unknown [id number] 2.16.840.1.891722.3.579.2. 1259 1994 Unknown [id number] 2.16.840.1.628135.3.579.2. 1259 1994 Unknown [id number] 2.16.840.1.030254.3.579.2. 9 1994 Unknown [id number] 2.16.840.1.282242.3.579.2. 9 1994 Unknown [id number] 2.16.840.1.058323.3.579.2. 1259 1994 Unknown [id number] 2.16.840.1.696630.3.579.2. 1258 1994 Unknown [id number] 2.16.840.1.810182.3.579.2. 1259 1994 Unknown [id number] 2.16.840.1.929094.3.579.2. 1259 1994 Unknown [id number] 2.16.840.1.946277.3.579.2. 174 1994 Unknown [id number] 2.16.840.1.262955.3.579.2. 174 1994 Unknown [id number] 2.16.840.1.426420.3.579.2. 174 1994 Unknown [id number] 2.16.840.1.471739.3.579.2. 174 1994 Unknown [id number] 2.16.840.1.221319.3.579.2. 174 1994 Unknown [id number] 2.16.840.1.138401.3.579.2. 174 1994 Unknown [id number] 2.16.840.1.743495.3.579.2. 174 1994 Unknown [id number] 2.16.840.1.573482.3.579.2. 174 1994 Unknown [id number] 2.16.840.1.830369.3.579.2. 174 1994 Unknown [id number] 2.16.840.1.810378.3.579.2. 174 1994 Unknown [id number] 2.16.840.1.480949.3.579.2. 174 1994 Unknown [id number] 2.16.840.1.203562.3.579.2. 174 1994 Unknown [id number] 2.16.840.1.193263.3.579.2. 174 1994 Unknown [id number] 2.16.840.1.738123.3.579.2. 174 1994 Unknown [id number] 2.16.840.1.478176.3.579.2. 174 1994 Unknown [id number] 2.16.840.1.577219.3.579.2. 174 1994 Unknown [id number] 2.16.840.1.563498.3.579.2. 174 1994 Unknown [id number] 2.16.840.1.324462.3.579.2. 174 1994 Unknown [id number] 2.16.840.1.353121.3.579.2. 174 1994 Unknown [id number] 2.16.840.1.193453.3.579.2. 174 1994 Unknown [id number] 2.16.840.1.346423.3.579.2. 174 1994 Unknown [id number] 2.16.840.1.120107.3.579.2. 174 1994 Unknown [id number] 2.16.840.1.689658.3.579.2. 174 1994 Unknown [id number] 2.16.840.1.232813.3.579.2. 174 1994 Unknown [id number] 2.16.840.1.786170.3.579.2. 174 1994 Unknown [id number] 2.16.840.1.924683.3.579.2. 174 1994 Unknown [id number] 2.16.840.1.315005.3.579.2. 174 1994 Unknown [id number] 2.16.840.1.235879.3.579.2. 174 1994 Unknown [id number] 2.16.840.1.622258.3.579.2. 174 1994 Unknown [id number] 2.16.840.1.294679.3.579.2. 174 1994 Unknown [id number] 2.16.840.1.681551.3.579.2. 174 1994 Unknown [id number] 2.16.840.1.671915.3.579.2. 174 1994 Unknown [id number] 2.16.840.1.958205.3.579.2. 174 1994 Unknown [id number] 2.16.840.1.887896.3.579.2. 174 1994 Unknown [id number] 2.16.840.1.492868.3.579.2. 174 1994 Unknown [id number] 2.16.840.1.085642.3.579.2. 174 1994 Unknown [id number] 2.16.840.1.381137.3.579.2. 174 1994 Unknown [id number] 2.16.840.1.127539.3.579.2. 174 1994 Unknown [id number] 2.16.840.1.164886.3.579.2. 174 1994 Unknown [id number] 2.16.840.1.362945.3.579.2. 174 1959 Unknown [id number] 1.2.840.148579.1.13.239.2. 7.3.950524.315 Social History Date Type Detail Facility Start: 09-14-2021 End: 09-18-2024 Tobacco smoking status AKIS Never smoker [facility] Work Phone: Start: 09-14-2021 End: 09-18-2024 Tobacco use and exposure Never used [facility] Start: 09-14-2021 End: 08-21-2024 Alcohol intake Current non-drinker of alcohol (finding) [facility] Work Phone: Start: 1995 Sex Assigned At Not on file [facility] Work Phone: Start: 11-24-2022 End: 01-10-2023 Exposure to SARS-CoV-2 (event) Not sure [facility] Tobacco smoking status Never [facility] Start: 07-19-2023 End: 02-07-2025 Sex Assigned At Female [facility] Start: 12-04-2022 End: 01-10-2023 History SDOH Alcohol Frequency 1 [facility] Work Phone: Start: 07-19-2023 End: 02-07-2025 History of Social function [facility] How often to you hav e a drink containing alcohol? Never [facility] (I/We) worried wheth er (my/our) food would run out before (I/we) got money to buy more. Never true [facility] At any time in the p ast 12 months, were you homeless or living in longterm [including now]? No [facility] Start: 1995 Sex Assigned At Female [facility] Start: 07-19-2023 Gender identity Identifies as female gender (finding) [facility] Start: 07-19-2023 Sexual orientation Heterosexual (finding) [facility] Start: 07-16-2024 [facility] Start: 09-18-2024 End: 02-13-2025 Alcoholic beverage intake Lifetime non-drinker (finding) [facility] Start: 01-03-2013 Sex Female (finding) [facility] Functional Status Date Assessment Result Facility 12-08-2022 Functional Status N/A [facility] [place] 06-01-2022 Functional Status N/A [facility] Clinical Notes 06-01-2022 to 02-14-2025 Clara Castrejon, PT - 02/14/2025 9:00 AM Chata Olea LPN - 02/13/2025 9:00 AM Clara Seals, PT - 01/29/2025 9:00 AM Chata Olea LPN - 01/16/2025 8:40 AM ESTDischarge Instructions Note Date & Type Note Facility 02-14-2025 History of Present illness Narrative [facility] Date: 02/14/2025 Patient Name: Meena Lucero : 1995 Pt No Showed Appt- Follow up call, left voicemail for patient to call back to reschedule if wants. Clara Castrejon, PT Date: 02/14/2025 [facility] 02-13-2025 History of Present illness Narrative Reason [...] nursing note reviewed. Exam conducted with a aluminum boat inspector present. Vitals: Estimated body mass index is [...] Gary Robison DO documented in this encounter [facility] 01-29-2025 History of Present illness Narrative Images from the original note were not included. [facility] Daily Note Date: 01/29/2025 Patient Name: Meena Lucero : 1995 (29 y.o.) Referring Provider (secondary): Dr. Partida Diagnosis: R buttock pain, sacral pain Treatment Diagnosis: back pain, SI pain Onset Date: 09/28/24 (Referral) PT Insurance Information: [facility] Total # of Visits Approved: 16 Per [...] pelvic stability-Met STG Goal 3 Status:: Met Religion Department Chair Goals Time Frame for Religion Department Chair Goals : 16 Religion Department Chair Goal 1: Improve functional mobility with Oswestry score <15/50 (from 2250) [facility] Goal 2: Decrease R SI pain 4/10 at worst x3 days Treatment Tolerance: Treatment Tolerance: Tolerated treatment well. Post Treatment Pain: 4/10 Time In: 9:00 Time Out : 9:33 Timed Code Treatment Minutes: 33 Minutes Total Treatment Time: 33 Minutes Clara Castrejon, PT Date: 01/29/2025 documented in this encounter [facility] 01-16-2025 History of Present illness Narrative Reason [...] nursing note reviewed. Exam conducted with a aluminum boat inspector present. Vitals: Estimated body mass index is [...] Gary Robison DO documented in this encounter [facility] 01-15-2025 History of Present illness Narrative Images from the original note were not included. [facility] Daily Note Date: 01/15/2025 Patient Name: Meena Lucero : 1995 (29 y.o.) Referring Provider (secondary): Dr. Partida Diagnosis: R buttock pain, sacral pain Treatment Diagnosis: back pain, SI pain Onset Date: 09/28/24 (Referral) PT Insurance Information: Active-Semi Total # of Visits Approved: 16 Per [...] pelvic stability-Met STG Goal 3 Status:: Met Religion Department Chair Goals Time Frame for Religion Department Chair Goals : 16 [facility] Goal 1: Improve functional mobility with Oswestry score <15/50 (from 22/50) Religion Department Chair Goal 2: Decrease R SI pain 4/10 at worst x3 days Treatment Tolerance: Treatment Tolerance: Tolerated treatment well. Post Treatment Pain: 5/10 Time In: 9:05 Time Out : 9:35 Timed Code Treatment Minutes: 30 Minutes Total Treatment Time: 30 Minutes Clara Castrejon PT Date: 01/15/2025 documented in this encounter [facility] 01-12-2025 History of Present illness Narrative Images from the original note were not included. [facility] Daily Note Date: 01/12/2025 Patient Name: Meena Lucero : 1995 (29 y.o.) Referring Provider (secondary): Dr. Partida Diagnosis: R buttock pain, sacral pain Treatment Diagnosis: back pain, SI pain Onset Date: 09/28/24 (Referral) PT Insurance Information: [facility] Total # of Visits Approved: 16 [...] pelvic stability-Met STG Goal 3 Status:: Met Religion Department Chair Goals Time Frame for Religion Department Chair Goals : 16 Religion Department Chair Goal 1: Improve functional mobility with Oswestry score <15/50 (from ) [facility]ci Goal 2: Decrease R SI pain 4/10 at worst x3 days Treatment Tolerance: Treatment Tolerance: Tolerated treatment well. Post Treatment Pain: 3/10 Time In: 8:13 Time Out : 8:54 Timed Code Treatment Minutes: 41 Minutes Total Treatment Time: 41 Minutes Clara Castrejon PT Date: 01/12/2025 documented in this encounter [facility] 01-10-2025 History of Present illness Narrative Images from the original note were not included. [facility] Daily Note Date: 01/10/2025 Patient Name: Meena Lucero : 1995 (29 y.o.) Referring Provider (secondary): Dr. Partida Diagnosis: R buttock pain, sacral pain Treatment Diagnosis: back pain, SI pain Onset Date: 09/28/24 (Referral) PT Insurance Information: [facility] Total # of Visits Approved: 16 [...] Time Frame for Fci Goals : 16 Religion Department Chair Goal 1: Improve functional mobility with Oswestry score <15/50 (from ) [facility]ci Goal 2: Decrease R SI pain 4/10 at worst x3 days Treatment Tolerance: Treatment Tolerance: Tolerated treatment well. Post Treatment Pain: 4/10 Time In: 0902 Time Out: 932 Timed Code Treatment Minutes: 31 Minutes Total Treatment Time: 31 Minutes Austen Puga, MELON PACKER Date: 01/10/2025 documented in this encounter [facility] 01-05-2025 History of Present illness Narrative Images from the original note were not included. [facility] Daily Note Date: 01/05/2025 [...] Status:: Met Fci Goals Time Frame for Religion Department Chair Goals : 16 Religion Department Chair Goal 1: Improve functional mobility with Oswestry score <15/50 (from 2250) Fci Goal 2: Decrease R SI pain 4/10 at worst x3 days Treatment Tolerance: Treatment Tolerance: Tolerated treatment well. Post Treatment Pain: 5/10 Time In: 0802 Time Out: 08 Timed Code Treatment Minutes: 36 Minutes Total Treatment Time: 36 Minutes Austen Puga, VITA Date: 01/05/2025 documented in this encounter [facility] 01-02-2025 History of Present illness Narrative Images from the original note were not included. [facility] Daily Note Date: 01/02/2025 Patient Name: Meena Lucero : 1995 (29 y.o.) Referring Provider (secondary): Dr. Partida Diagnosis: R buttock pain, sacral pain Treatment Diagnosis: back pain, SI pain Onset Date: 09/28/24 (Referral) PT Insurance Information: [facility] Total # of Visits Approved: 16 [...] pelvic stability-Met STG Goal 3 Status:: Met Religion Department Chair Goals Time Frame for Fci Goals : 16 Religion Department Chair Goal 1: Improve functional mobility with Oswestry score <15/50 (from 2250) Religion Department Chair Goal 2: Decrease R SI pain 4/10 at worst x3 days Treatment Tolerance: Treatment Tolerance: Tolerated treatment well. Post Treatment Pain: 8/10 Time In: 1114 Time Out : 1152 Timed Code Treatment Minutes: 37 Minutes Total Treatment Time: 37 Minutes Lauryn Edwards PTA Date: 01/02/2025 documented in this encounter [facility] 12-29-2024 History of Present illness Narrative Images from the original note were not included. [facility] Daily Note Date: 12/29/2024 Patient Name: Meena uLcero : 1995 (29 y.o.) Referring Provider (secondary): Dr. Partida Diagnosis: R buttock pain, sacral pain Treatment Diagnosis: back pain, SI pain Onset Date: 09/28/24 (Referral) PT Insurance Information: [facility] Total # of Visits Approved: 16 [...] Date: 12/29/2024 documented in this encounter [facility] 12-27-2024 History of Present illness Narrative Images from the original note were not included. [facility] Daily Note Date: 12/27/2024 Patient Name: Meena Lucero : 1995 (29 y.o.) Referring Provider (secondary): Dr. Partida Diagnosis: R buttock pain, sacral pain Treatment Diagnosis: back pain, SI pain Onset Date: 09/28/24 (Referral) PT [facility] [employer] [facility] Total # of Visits Approved: 16 Per Physician Order Total # of Visits to Date: 8 Plan of Care/Certification Expiration Date: 01/19/25 Pre-Treatment Pain: 6/10 Assessment Assessment: Pt reports pain in back today /10, pelvic pain /10. She reports feeling the baby's head is [...] pelvic stability STG Goal 3 Status:: Met Religion Department Chair Goals Time Frame for Religion Department Chair Goals : 16 Fci Goal 1: Improve functional mobility with Oswestry score <15/50 (from 22/50) Religion Department Chair Goal 2: Decrease R SI pain 4/10 at worst x3 days Treatment Tolerance: Treatment Tolerance: Tolerated treatment well. Post Treatment Pain: 5/10 Time In: 0900 Time Out: 0935 Timed Code Treatment Minutes: 35 Minutes Total Treatment Time: 35 Minutes Austen Puga PTA Date: 12/27/2024 documented in this encounter [facility] 12-22-2024 History of Present illness Narrative Images from the original note were not included. [facility] Daily Note Date: 12/22/2024 Patient Name: Meena Lucero : 1995 (29 y.o.) Referring Provider (secondary): Dr. Partida Diagnosis: R buttock pain, sacral pain Treatment Diagnosis: back pain, SI pain Onset Date: 09/28/24 (Referral) PT Insurance Information: [facility] Total # of Visits Approved: 16 [...] Time Frame for Fci Goals : 16 Religion Department Chair Goal 1: Improve functional mobility with Oswestry score <15/50 (from 22/50) Fci Goal 2: Decrease R SI pain 4/10 at worst x3 days Treatment Tolerance: Treatment Tolerance: Tolerated treatment well. Post Treatment Pain: 5-6/10 Time In: 0801 Time Out: 0836 Timed Code Treatment Minutes: 35 Minutes Total Treatment Time: 35 Minutes Austen Puga PTA Date: 12/22/2024 documented in this encounter [facility] 12-20-2024 History of Present illness Narrative Images from the original note were not included. [facility] Daily Note Date: 12/20/2024 Patient Name: Meena Lucero : 1995 (29 y.o.) Referring Provider (secondary): Dr. Partida Diagnosis: R buttock pain, sacral pain Treatment Diagnosis: back pain, SI pain Onset Date: 09/28/24 (Referral) PT Insurance Information: [facility] Total # of Visits Approved: 16 [...] mobility with Oswestry score <15/50 (from 22/50) Religion Department Chair Goal 2: Decrease R SI pain 4/10 at worst x3 days Treatment Tolerance: Treatment Tolerance: Tolerated treatment well. Post Treatment Pain: 6/10 Time In: 9;00 Time Out : 9:26 Timed Code Treatment Minutes: 26 Minutes Total Treatment Time: 26 Minutes Clara Castrejon, PT Date: 12/20/2024 documented in this encounter [facility] 12-19-2024 History of Present illness Narrative Reason [...] PO) Oral ALLERGIES Allergies Allergen Reactions Hydrocodone Newport Oil Hives Codeine Rash and Unknown Chest [...] nursing note reviewed. Exam conducted with a aluminum boat inspector present. Vitals: Estimated body mass index is [...] tolerance, 1 hour 4. Low platelet count ([facility]) D69.6 Platelet count 5. Thrombocytopenia affecting , antepartum ([facility]) O99.119 D69.6 6. Circumvallate placenta during in [...] Gary Robison DO documented in this encounter [facility] 12-13-2024 History of Present illness Narrative Images from the original note were not included. [facility] Daily Note Date: 12/13/2024 Patient Name: Meena Lucero : 1995 (29 y.o.) Referring Provider (secondary): Dr. Partida Diagnosis: R buttock pain, sacral pain Treatment Diagnosis: back pain, SI pain Onset Date: 09/28/24 (Referral) PT Insurance Information: [facility] Total # of Visits Approved: 16 [...] hip abd 4+/5 for improved pelvic stability Religion Department Chair Goals Time Frame for Fci Goals : 16 Religion Department Chair Goal 1: Improve functional mobility with Oswestry score <15/50 (from 22/50) Fci Goal 2: Decrease R SI pain 4/10 at worst x3 days Treatment Tolerance: Treatment Tolerance: Tolerated treatment well. Post Treatment Pain: 6/10 Time In: 0945 Time Out: 1018 Timed Code Treatment Minutes: 33 Minutes Total Treatment Time: 33 Minutes Austen Puga, VITA Date: 12/13/2024 documented in this encounter [facility] 12-06-2024 History of Present illness Narrative Images from the original note were not included. [facility] Daily Note Date: 12/06/2024 Patient Name: Meena Lucero : 1995 (29 y.o.) Referring Provider (secondary): Dr. Partida Diagnosis: R buttock pain, sacral pain Treatment Diagnosis: back pain, SI pain Onset Date: 09/28/24 (Referral) PT Insurance Information: [facility] Total # of Visits Approved: 16 [...] Time Frame for Fci Goals : 16 Religion Department Chair Goal 1: Improve functional mobility with Oswestry score <15/50 (from 22/50) Religion Department Chair Goal 2: Decrease R SI pain 4/10 at worst x3 days Treatment Tolerance: Treatment Tolerance: Tolerated treatment well. Post Treatment Pain: 6/10 Time In: 9:45 Time Out : 10:18 Timed Code Treatment Minutes: 33 Minutes Total Treatment Time: 33 Minutes Clara Castrejon, PT Date: 12/06/2024 Images from the original note were not included. [facility] Progress Report Date: 12/06/2024 Patient: Meena Lucero : 1995 Referring Provider (secondary): Dr. Partida Diagnosis: R buttock pain, sacral pain Treatment Diagnosis: back pain, SI pain Onset Date: 09/28/24 (Referral) PT Insurance Information: [facility] Total # of Visits Approved: 16 [...] hip abd 4+/5 for improved pelvic stability Religion Department Chair Goals Time Frame for Religion Department Chair Goals : 16 Religion Department Chair Goal 1: Improve functional mobility with Oswestry score <15/50 (from ) Fci Goal 2: Decrease R SI pain 4/10 at worst x3 days Clara Castrejon, PT Date: 12/06/2024 documented in this encounter [facility] 11-20-2024 History of Present illness [...] hours PRN ALLERGIES Allergies Allergen Reactions Hydrocodone Newport Oil Hives Codeine Rash and Unknown Chest [...] of: CANDACE Avitia documented in this encounter [facility] 10-17-2024 History of Present illness Narrative [...] hours PRN ALLERGIES Allergies Allergen Reactions Hydrocodone Newport Oil Hives Codeine Rash and Unknown Chest [...] nursing note reviewed. Exam conducted with a aluminum boat inspector present. Vitals: Estimated body mass index is [...] Gary Robison DO documented in this encounter [facility] 10-17-2024 History of Present illness Narrative Occupational Therapy [facility] Date: 10/17/2024 Patient Name: Meena Lucero : 1995 Pt Cancelled Appt due to no reason for cancel Trinity Harris Date: 10/17/2024 documented in this encounter [facility] 10-12-2024 History of Present illness Narrative Images from the original note were not included. [facility] Daily Note Date: 10/12/2024 Patient Name: Meena Lucero : 1995 (28 y.o.) Referring Provider (secondary): Dr. Partida Diagnosis: R buttock pain, sacral pain Treatment Diagnosis: back pain, SI pain Onset Date: 09/28/24 (Referral) PT Insurance Information: [facility] Total # of Visits Approved: 16 [...] hip abd 4+/5 for improved pelvic stability Religion Department Chair Goals Time Frame for Religion Department Chair Goals : 16 Religion Department Chair Goal 1: Improve functional mobility with Oswestry score <15/50 (from 22/50) Fci Goal 2: Decrease R SI pain 4/10 at worst x3 days Post Treatment Pain: 4/10 Time In: 8:00 Time Out : 8:33 Timed Code Treatment Minutes: 33 Minutes Total Treatment Time: 33 Minutes Clara Castrejon PT Date: 10/12/2024 documented in this encounter [facility] 10-04-2024 History of Present illness Narrative Physical Therapy [facility] Date: 10/04/2024 Patient Name: Meena Lucero : 1995 Pt Cancelled Appt due to therapist darron Harris Date: 10/04/2024 documented in this encounter [facility] 09-18-2024 History of Present illness Narrative Reason for Appointment: Patient ID: Meena Lucero is a 28 y.o. female who presents for Routine Visit Patient presents today for Return OB appointment. MEDICATIONS Current Outpatient Medications Medication Instructions 27-1 MG tablet Every 24 hours MV-Min-Fe Fum-FA-DHA ( 1 PO) Oral promethazine (PHENERGAN) 12.5 mg, Oral, Every 6 hours PRN ALLERGIES Allergies Allergen Reactions Hydrocodone Newport Oil Hives Codeine Rash and Unknown Chest [...] nursing note reviewed. Exam conducted with a aluminum boat inspector present. Vitals: Estimated body mass index is [...] Gary Robison DO documented in this encounter [facility] 08-18-2024 History of Present illness Narrative [...] Date CHOLECYSTECTOMY TONSILLECTOMY Allergies Allergen Reactions Hydrocodone Newport Oil Hives Codeine Rash and Unknown Chest [...] screen, urine; Future Nurse Note: Pt given Loleta 21 and advised to have labs done together at 10 weeks. Pt verbally understood. Pt requests to only see Enriqueta through out her . I noted this on Flowsheet. Pt was advised that there will times that she will not be able to see him due to being called out for a delivery. Pt may have to reschedule unless she agrees to see Genevivee Calderon. Follow Up: Patient is to have labs drawn at directed and return to office for initial OB appointment with provider. Patient may call office as needed with any concerns or questions. Nurse Visit Completed by: Daxa Martinez MA documented in this encounter [facility] 07-27-2024 History of Present illness Narrative Images from the original note were not included. [facility] Daily Note Date: 07/27/2024 Patient Name: Meena Lucero : 1995 (28 y.o.) Referring Provider (secondary): Dr. Partida Diagnosis: Sacral pain Treatment Diagnosis: SI pain Onset Date: 05/29/24 PT [facility] Total # of Visits Approved: 16 [...] Frame for Fci Goals : 16 visits Religion Department Chair Goal 1: Decrease subjective SI/right gluteal pain to <3/10 with activity and transitional movements Post Treatment Pain: 5/10 Time In: 0910 Time Out : 0935 Timed Code Treatment Minutes: 25 Minutes Total Treatment Time: 25 Minutes Onel Davis, PT Date: 07/27/2024 documented in this encounter [facility] 07-06-2024 History of Present illness Narrative Images from the original note were not included. [facility] Daily Note Date: 07/06/2024 [...] strengthening for self-correction of pelvic asymetry- MET Religion Department Chair Goals Time Frame for Fci Goals : 10 visits Religion Department Chair Goal 1: Decrease subjective SI/right gluteal pain [...] from the original note were not included. [facility] Daily Note Date: 06/29/2024 [...] strengthening for self-correction of pelvic asymetry- MET Religion Department Chair Goals Time Frame for Fci Goals : 10 visits Religion Department Chair Goal 1: Decrease subjective SI/right gluteal pain [...] Date: 06/29/2024 documented in this encounter [facility] 01-10-2023 Hospital Discharge instructions Fei Canales MD - 01/10/2023 3:17 PM EST There was a possible concern for fracture of the fibula. Please follow-up with Dr. Rehman for further evaluation and be sure to use crutches and be nonweightbearing until then. The following attachments cannot be sent through Care Everywhere.Ankle Sprain ([place]izen [place])documented in this encounter [facility] [employer] Work Phone: 12-08-2022 Hospital Discharge instructions Patient [...] and water are not available, use hand private wealth advisor. Make sure that all people in your household wash their hands well and often. Take ujwj-uhs-wlxxkis and prescription medicines only as told by [...] and water are not available, use hand private wealth advisor. This information is not intended to replace advice given to you by your health care provider. Make sure you discuss any questions you have with your health care provider. Document Released: 11/08/2006 Document Revised: 04/26/2020 Document Reviewed: 09/13/2019 [employer] Patient Education 2020 [email or web address]. Follow Up Care 12/08/2022 09:17:52 With:SUSAN BENAVIDEZ, KANDY Caban Address: When: only if needed [facility] [place] 12-04-2022 Hospital Discharge instructions Jason Tracy MD - 12/04/2022 4:33 PM EST Increase fluids at home. Take Zofran for any nausea. Try Imodium/loperamide for diarrhea. Call primary care doctor for close follow-up. Use Tylenol or Motrin to keep fever down. The following attachments cannot be sent through Care Everywhere.Viral Infections ([place]izen [place])documented in this encounter [facility] Work Phone: 06-01-2022 Hospital Discharge instructions Patient [...] height. This can be done either in [place] or metric measurements. Note that charts are available to help you find your BMI quickly and easily without having to do these calculations yourself. To calculate your BMI in [place] measurements, your health care provider will: [...] medical problems. BMI can be measured using [place] measurements or metric measurements. To interpret your [...] 07/20/2005 Document Revised: 10/21/2018 Document Reviewed: 09/21/2018 [employer] Patient Education 2020 [email or web address]. 06/01/2022 13:15:39 Carpal Tunnel Syndrome Carpal Tunnel [...] Having a job, such as being a call center agent or a deputy director of nursing, that requires you to repeatedly move your [...] 3 times per day. General instructions Take yuyl-sox-raylmjz and prescription medicines only as told by [...] 11/05/2001 Document Revised: 03/17/2019 Document Reviewed: 03/17/2019 [employer] Patient Education Missingames Follow Up Care 05/28/2022 08:22:05 With:Meena Carl CNP Address: When: only if needed [facility] Evaluation + Plan note [facility] Evaluation note Diagnosis Subacute bronchitis- Primary Acute bronchitis documented in this encounter [employer] Phone: [email or web address] note* Diagnosis Left wrist pain Pain in joint, forearm documented in this encounter [employer] Phone: evaluation note* Diagnosis Viral illness- Primary Unspecified viral infection, in conditions classified elsewhere and of unspecified site documented in this encounter [employer] Phone: evaluation note* Diagnosis Injury of right ankle, initial encounter- Primary documented in this encounter [employer] Phone: [email or web address] note* Diagnosis Other closed fracture of proximal end of right fibula with routine healing, subsequent encounter documented in this encounter [employer] Phone: [email or web address] note* Diagnosis First trimester state, incidental 11 weeks gestation of Encounter for sterilization education [facility] Diagnosis Screening, , for anatomic survey Encounter for anatomic survey 15 weeks gestation of Second trimester state, incidental Encounter for gynecological examination without abnormal finding Vaginal discharge Leukorrhea, not specified as infective STD exposure Nausea and vomiting during documented [facility]* Diagnosis Missed menses First trimester state, incidental 6 weeks gestation of , unspecified gestational age Encounter for supervision of normal first in first trimester documented in this encounter [facility]* Diagnosis Second trimester state, incidental 20 weeks gestation of Diabetes mellitus screening Screening for diabetes mellitus documented in this encounter [facility]* Diagnosis Second trimester state, incidental 24 weeks gestation of Diabetes mellitus screening Screening for diabetes mellitus Low platelet count (CMS/HCC) Thrombocytopenia affecting , antepartum (CMS/HCC) 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, antepartum documented in this encounter [facility]* Diagnosis 28 weeks gestation of Third trimester state, incidental Heartburn during in third trimester documented in this encounter [facility]* Diagnosis Third trimester state, incidental 32 weeks gestation of Excessive growth affecting management of , antepartum, single or unspecified fetus [facility] N[facility] No data available for this section [facility] Hospital Discharge instructions* Attachments The following attachments cannot be sent through Care Everywhere. * Bronchitis ([place]) [facility] [employer] Work Phone: progress note No data available for this section [facility] Reason for referral (narrative) Referred by: Meena Carl CNP [facility] Advance Directives Documents on File Type Date Recorded Patient Project Designer Expl anation ACP-Advance Directive ACP-Power of Crew Attendant Summary Purpose Family History No Family History [...] Care Team (unrecognized sect ion and content) Conveyor Belt Installer Relationship Specialty Start Date End Date Keyon Davis MD [address] [place] [address] [place] [address] PCP - General Family Medicine 12/04/22 Conveyor Belt Installer Relationship Specialty Start Date End Date Keyon Davis MD [address] [place] [address] [place] [address] PCP - General Family Medicine 12/04/22 Conveyor Belt Installer Relationship Specialty Start Date End Date Keyon Davis MD [address] [place] [address] [place] [address] PCP - General Family Medicine 12/04/22 Conveyor Belt Installer Relationship Specialty Start Date End Date Óscar Nassar DNP [address] [place] [phone] PCP - General Family Nurse Practitioner 03/14/24 Conveyor Belt Installer Relationship Specialty Start Date End Date Óscar Nassar DNP [address] [place] [address] PCP - General Family Nurse Practitioner 03/14/24 Conveyor Belt Installer Relationship Specialty Start Date End Date Óscar Nassar DNP [address] [place] [address] PCP - General Family Nurse Practitioner 03/14/24 Conveyor Belt Installer Relationship Specialty Start Date End Date Óscar Nassar DNP [address] [place] [address] PCP - General Family Nurse Practitioner 03/14/24 Conveyor Belt Installer Relationship Specialty Start Date End Date Keyon Davis MD [address] [place], [place] [address]kristy [place] [phone] PCP - General 05/12/23 Gary Robison DO [facility] [place] [address] PCP - [facility] 02/21/24 Conveyor Belt Installer Relationship Specialty Start Date End Date Keyon Davis MD [facility] Matilde [place] [phone] PCP - General 05/12/23 Gary Robison DO [address] [place], [place] [address] [address] PCP - [facility] 02/21/24 Conveyor Belt Installer Relationship Specialty Start Date End Date Óscar Nassar DNP [address] [place] [address] PCP - General Family Nurse Practitioner 03/14/24 Conveyor Belt Installer Relationship Specialty Start Date End Date Keyon Davis MD [address] [place] [phone] PCP - General 05/12/23 Gary Robison DO [facility] [place] [phone] PCP - [facility] 02/21/24 Conveyor Belt Installer Relationship Specialty Start Date End Date Keyon Davis MD [facility] [place] [phone] PCP - General 05/12/23 Gary Robison DO [facility] [place] [place] [address] PCP - [facility] 02/21/24 Conveyor Belt Installer Relationship Specialty Start Date End Date Keyon Davis MD [facility] [place] [phone] PCP - General 05/12/23 Gary Robison DO [facility] [place] [place] [address] PCP - [facility] 02/21/24 Conveyor Belt Installer Relationship Specialty Start Date End Date Keyon aDvis MD [facility] [place] [phone] PCP - General 05/12/23 Gary Robison DO [facility] [place] [phone] PCP - [facility] 02/21/24 Conveyor Belt Installer Relationship Specialty Start Date End Date Keyon Davis MD [address] [place] [phone] PCP - General 05/12/23 Gary Robison DO [facility] Leia Juarez, [facility] PCP - [facility] 02/21/24 Conveyor Belt Installer Relationship Specialty Start Date End Date Óscar Nassar DNP [address] [place], [place] [phone] PCP - General Family Nurse Practitioner 03/14/24 Conveyor Belt Installer Relationship Specialty Start Date End Date Keyon Davis MD [facility] [place] [phone] PCP - General 05/12/23 Gary Robison DO [facility] Leia Juarez, [facility] PCP - [facility] 02/21/24 Conveyor Belt Installer Relationship Specialty Start Date End Date Keyon Davis MD [facility] [place] [phone] PCP - General 05/12/23 Gary Robison DO [facility] Leia Juarez, [facility] PCP [facility] 02/21/24 Conveyor Belt Installer Relationship Specialty Start Date End Date Óscar Nassar DNP [address] [place] [phone] PCP - General Family Nurse Practitioner 03/14/24 Conveyor Belt Installer Relationship Specialty Start Date End Date Keyon Davis MD [address] [place] [phone] PCP - General 05/12/23 Gary Robison, [facility] Leia Juarez, [facility] PCP [facility] 02/21/24 Conveyor Belt Installer Relationship Specialty Start Date End Date Keyon Davis MD [address] [place], [place] [address]k[place] [address] PCP - General 05/12/23 Gary Robison, [facility] Leia Juarez, [facility] PCP [facility] 02/21/24 Conveyor Belt Installer Relationship Specialty Start Date End Date Óscar Nassar DNP [address] [place] [phone] PCP - General Family Nurse Practitioner 03/14/24 Conveyor Belt Installer Relationship Specialty Start Date End Date Keyon Davis MD [facility] [place] [address] PCP - General 05/12/23 Gary Robison DO [facility] Leia Juarez, [place] [phone] PCP [facility] 02/21/24 INFORMATION SOURCE (unrecogn ized section and content) DATE CREATED AUTHOR 02/01/2023 Papito Monge [facility] DATE CREATED AUTHOR AUTHOR'S ORGANIZ ATION 04/01/2023 [facility] DATE CREATED AUTHOR AUTHOR'S ORGANIZ ATION 02/14/[address] [facility] dical [facility] DATE CREATED AUTHOR AUTHOR'S ORGANIZ ATION [...] BASED ON THE PRIMARY CLINICAL RECORDS. [facility] [email or web address] [facility]. provides no warranty or guarantee of the accuracy or completeness of information in this document.
[2025-02-27 09:01] VITALS: BP 118/80; PULSE 80
== END 2025-02-27 09:32 | disposition home or self-care (01) ==
LOC: US 08:26 → FBC 08:27
PROVIDERS: Visit Provider Physician Assistant
DX: O43.113 Circumvallate placenta, third trimester (principal); Z3A.34 34 weeks gestation of pregnancy
CPT/HCPCS: 76818

== ENCOUNTER 2025-03-02 08:21 | Outpatient (OUT) | payer OTHER, SELFPAY ==
[2025-03-02 08:37] LABS: Platelet Count 158 10^3/uL (150-450)
== END 2025-03-02 08:22 | disposition home or self-care (01) ==
LOC: LAB 08:23
PROVIDERS: Visit Provider Obstetrics & Gynecology
DX: D69.6 Thrombocytopenia, unspecified (principal)
CPT/HCPCS: 36415; 85049

== ENCOUNTER 2025-03-02 08:32 | Outpatient (OUT) | payer OTHER, SELFPAY ==
--- OUTSIDE RECORDS SUMMARY | 2025-03-02 08:39 | XMS_ITS | CCD ---
Author Organization [facility] Care Team Providers Care Sprue Knocker Name Role Phone Unavailable Primary Care Provider UnavailCharli Browne Primary Care Physician [phone] Keyon Davis MD Primary Care Provider ANTHONY Carl Attending UnavailKeyon Lockett Attending Unavailable Evan Moyer Attending Unavailable LISHA, DR DRUMMOND LISTED Consulting Unavaila ble [facility] [place] NICOLE Primary Care Unavailable ENRIQUETA ., DR BENDER Attending Unavailable ENRIQUETA ., DR BENDER Admitting Unavailable Clingman HUMA, Óscar Moreno Primary Care Provider [phone] Tyshawn FINN, Óscar Moreno Primary Care Provider Keyon Davis MD Primary Care Provider [phone] Gary Robison DO Unavailable JOHN PARTIDA Attending Unavailable JOHN PARTIDA Referring Unavailable CLINGMAN, ÓSCAR A Primary Care Unavailable JOHN PARTIDA Attending Unavailable JOHN PARTIDA Referring Unavailable CLINGMAN, ÓSCAR A Primary Care Unavailable JOHN PARTIDA Attending Unavailable CLINJEFFN, ÓSCAR [...] Primary Care Unavailable GARY ROBISON Attending Unavailable ENRIQUETA, GARY Attending Unavailable GENEVIEVE CALDERON Attending Unavailable ENRIQUETA, GARY Attending Unavailable ENRIQUETA, GARY Attending Unavailable MILLIEGENEVIEVE WELLS Attending Unavailable ENRIQUETA, GARY Attending Unavailable ENRIQUETACONRADY Referring Unavailable ENRIQUETAGARY Attending Unavailable Allergies Allergy Classification Reported Allergen(s) Allergy Type Date of Onset Reaction(s) Facility (20 sources) Acetaminophen / HYDROcodone Drug Allergy 7 Rash, Unknown [facility] (20 sources) Acetaminophen / oxyCODONE Drug Allergy 5 Rash, Unknown [facility] (20 sources) Codeine; Translations: [codeine] Drug Allergy 7 Rash, Cutaneous eruption (morphologic abnormality), Unknown [facility] (3 sources) Acetaminophen / HYDROcodone; Translations: [acetaminophen-hy drocodone] Drug Allergy Hives [facility] Care (3 sources) Acetaminophen / oxyCODONE; Translations: [acetaminophen-ox ycodone] Drug Allergy Cutaneous eruption (morphologic abnormality) [facility] Care (1 source) Acetaminophen / HYDROcodone Drug Allergy [facility] Repository (1 source) Acetaminophen / oxyCODONE Drug Allergy [facility] Repository (1 source) Codeine Drug Allergy [facility] Repository (20 sources) HYDROcodone Drug Allergy 3 [facility] Healthcare (20 sources) orange allergenic extract Drug Allergy 5 [facility] Healthcare Medications Current Medications Medication Drug Class(es) Dates [...] extended release oral tablet (6 sources) Uncompetitive K-fwcrur-E-aspartate Receptor Antagonist, Sigma-1 Agonist Start: 09-14-2021 take 1 tablet by mouth every twelve hours as needed for cough Dextromethorphan-g uaiFENesin 60-1200 MG TB12 Take 1 tablet by mouth every 12 hours as needed (COUGH CONGESTION) 28 tablet 0 09/14/2021 Active dextromethorphan hydrobromide 3 mg/ml / promethazine hydrochloride 1.25 mg/ml oral solution (6 sources) Phenothiazine, Uncompetitive C-fdwibs-Q-aspartate Receptor Antagonist, Sigma-1 Agonist Start: 05-31-2018 promethazine-dextr [...] day(s), # 30 tab(s), Refills(s) 1, Pharmacy: [facility], 170, cm, 06/01/22 12:55:00 EDT, Height/Length [...] crush or chew.. 30 capsule 11 11/20/2024 02/28/2025 Discontinued take 1 capsule by mouth once brittney ly omeprazole (PRILOSEC) 20 MG capsule Take 20 mg by mouth daily 0 Active ondansetron 4 mg disintegrating oral tablet (7 sources) Serotonin-3 Receptor Antagonist Start: 08-07-2024 End: [...] or Vomiting 12 tablet 0 12/04/2022 Active take 1 tablet by aurelia th every eight hours as needed for nausea and vomiting ondansetron ODT (Zofran-ODT) 4 MG disintegrating tablet Take 4 mg by mouth every 8 (eight) hours if needed for nausea or vomiting Active pantoprazole 40 mg delayed release oral tablet (11 sources) Proton Pump Inhibitor Start: 01-16-2025 End: [...] TID, # 15 tab(s), Refills(s) 0, Pharmacy: [facility], 170, cm, 09/03/22 14:31:00 EDT, Height/Length Dosing, 92, kg, 09/03/22 14:31:00 EDT, Weight Dosing Start Date: 09/03/22 Status: Ordered Completed/Discontinued Medications Medication Drug Class(es) Dates Sig (Normalized) Sig (Original) promethazine hydrochloride 12.5 mg oral tablet (20 sources) Phenothiazine Start: 02-10-2024 End: 01-28-2025 take 1 tablet by mouth every six [...] bronchitis, unspecified] Episodic Coagulation and hemorrhagic disorders (4 sources) Platelet count below reference range; Translations: [...] unspecified trimester] 12-19-2024 Episodic Other complications of (4 sources) Placenta circumvallata; Translations: [Circumvallate placenta, second trimester] 12-19-2024 Episodic Other complications of (2 sources) Heartburn; Translations: [Other specified related conditions, third trimester] 01-16-2025 Episodic Other complications of (4 sources) Excessive growth affecting management of mother; [...] [32 weeks gestation of ] 02-13-2025 Episodic Residual codes; unclassified (2 sources) Gestation period, 34 weeks; Translations: [34 weeks gestation of ] 02-28-2025 Episodic Spondylosis; intervertebral disc disorders; other back [...] Range Facility Urinalysis macro (dipstick) panel (U)on 02-28-2025 Bilirubin, UA Negative Negative - 4(70) +++ mg/dL [facility] Blood, UA Negative Negative - 50 Darnell/mcL [facility] Clarity, UA Clear [facility] re Color, UA Yellow [facility] Healthcar e Glucose, UA Negative Negative - 1999(110) ++++ mg/dL [facility] Interpretation and review of laboratory results [facility]normal [facility] Ketones, UA Negative Negative - 160(16) ++++ mg/dL [facility] Leukocytes, UA Positive Negative - 500+++ Shona/mcL [facility] Comment on above: small Nitrite, UA Negative Negative - Positive [facility] pH, UA 6 5 - 9 [facility] Protein, UA Trace Negative - 1999(20) ++++ mg/dL [facility] Spec Grav, UA 1.025 1 - 1.03 [facility] Urobilinogen, UA 0.2 0.2 - 12 mg/dL [facility] Healthcar e US OB BPP W NON-STRESS on 02-27-2025 The [place] [id number] Ultrasound Report Signed Patient: MEENA LUCERO MR#: [id number] : 1995 Acct:[id number] Age/Sex: 29 / F ADM Date: 02/27/25 Loc: US Attending Dr: Genevieve Calderon Ordering Physician: Genevieve Calderon Date of Service: 02/27/25 Procedure(s): US OB BPP w non-stress Accession Number(s): [id number] cc: Genevieve Calderon; Physician,Non-Staff MFelipe The [place] [id number] Patient Name: MEENA LUCERO MRN: [facility]:[id number] date: 1995 Sex: F Assigned Patient Location: [facility] Current Patient Location: Accession/Order Number: [id number] Exam Date: 02/27/2025 10:35 Report Date: 02/27/2025 10:36 At the request of: GENEVIEVE CALDERON Procedure: US OB BPP w non-stress Obstetrical biophysical profile HISTORY: Circumvallate placenta There is adequate breathing movement, gross body movement, tone and amniotic fluid volume for total score of 8 out of 8. The amniotic fluid index is 11.2 cm within normal limits. The heart rate is 157 bpm. US/US OB BPP w non-stress IMPRESSION: Adequate ultrasound biophysical profile. Impression dictated by: Jones Clemente M.D.02/27/2025 10:36 AM Dictation Location: [place] [address] Electronically authenticated by: [id number] Y Date: 02/27/2025 10:36 Dictated By: Jones Clemente D.O. Signed By: 02/27/25 1039 DD/ 1036 TD/TT: Loan Adviser: [facility] Radiology, Radiologist, - 02/27/2025 The [place] [id number] Ultrasound Report Signed Patient: MEENA LUCERO MR#: [id number] : 1995 Acct:[id number] Age/Sex: 29 / F ADM Date: 02/27/25 Loc: US Attending Dr: Genevieve Calderon Ordering Physician: Genevieve Calderon Date of Service: 02/27/25 Procedure(s): US OB BPP w non-stress Accession Number(s): [id number] cc: Genevieve Calderon; Physician,Non-Staff M.DRosa The [address] [address] Patient Name: MEENA LUCERO MRN: [id number] date: 1995 Sex: F Assigned Patient Location: [facility] Current Patient Location: Accession/Order Number: [id number] Exam Date: 02/27/2025 10:35 Report Date: 02/27/2025 10:36 At the request of: GENEVIEVE CALDERON Procedure: US OB BPP w non-stress Obstetrical biophysical profile HISTORY: Circumvallate placenta There is adequate breathing movement, gross body movement, tone and amniotic fluid volume for total score of 8 out of 8. The amniotic fluid index is 11.2 cm within normal limits. The heart rate is 157 bpm. US/US OB BPP w non-stress IMPRESSION: Adequate ultrasound biophysical profile. Impression dictated by: Jones Clemente M.D.02/27/2025 10:36 AM Dictation Location: [place] [address] Electronically authenticated by: [id number] Y Date: 02/27/2025 10:36 Dictated By: Jones Clemente D.O. Signed By: 02/27/25 1039 DD/ 1036 TD/TT: Loan Adviser: [facility] [employer] Radiology Study observation (narrative) [facility] US OB BPP W NON-STRESS Ordered By: Radiologist Radiology on 02-27-2025 [facility] Labscar e Work Phone: US OB BPP W NON-STRESS on 02-20-[address] [address] Ultrasound Report Signed Patient: MEENA LUCERO MR#: [id number] : 1995 Acct:[id number] Age/Sex: 29 / F ADM Date: 02/20/25 Loc: US Attending Dr: Genevieve Calderon Ordering Physician: Genevieve Calderon Date of Service: 02/20/25 Procedure(s): OB BPP w non-stress Accession Number(s): [id number] cc: Genevieve Calderon; Physician,Non-Staff M.DRosa [place] [id number] Patient Name: MEENA LUCERO MRN: [id number]:[id number] date: 1995 Sex: F Assigned Patient Location: [facility] Current Patient Location: Accession/Order Number: [id number] Exam Date: 02/20/2025 09:19 Report Date: 02/20/2025 09:20 At the request of: GENEVIEVE CALDERON Procedure: US OB BPP w non-stress BIOPHYSICAL PROFILE: CLINICAL INFORMATION: Circumvallate placenta COMPARISON: 02/13/2025 There is a single live intrauterine gestation in cephalic presentation. The reported gestational age is 33 weeks 2 days. The heart rate [id number] beats per minute. FINDINGS: TONE: 1 or [...] Marlene Orellana M.D.02/20/2025 9:20 AM Dictation Location: [place] [address] Electronically authenticated by: [id number] Y Date: 02/20/2025 09:20 Dictated By: Marlene Orellana M.D. Signed By: 02/20/25922 DD/ 0920 TD/TT: Loan Adviser: [facility] Radiology, Radiologist, MD - 02/20/[address] [address] Ultrasound Report Signed Patient: MEENA LUCERO MR#: [id number] : 1995 Acct:[id number] Age/Sex: 29 / F ADM Date: 02/20/25 Loc: US Attending Dr: Genevieve Calderon Ordering Physician: Genevieve Calderon Date of Service: 02/20/25 Procedure(s): US OB BPP w non-stress Accession Number(s): [id number] cc: Genevieve Calderon; Physician,Non-Staff Del The [address] [address] Patient Name: MEENA LUCERO MRN: [facility]:[id number] date: 1995 Sex: F Assigned Patient Location: [facility] Current Patient Location: Accession/Order Number: [id number] Exam Date: 02/20/2025 09:19 Report Date: 02/20/2025 09:20 At the request of: GENEVIEVE CALDERON Procedure: US OB BPP w non-stress BIOPHYSICAL PROFILE: CLINICAL INFORMATION: Circumvallate placenta COMPARISON: 02/13/2025 There is a single live intrauterine gestation in cephalic presentation. The reported gestational age is 33 weeks 2 days. The heart rate [id number] beats per minute. FINDINGS: TONE: 1 or [...] Marlene Orellana M.D.02/20/2025 9:20 AM Dictation Location: [place] [address] Electronically authenticated by: [id number] Y Date: 02/20/2025 09:20 Dictated By: Marlene Orellana M.D. Signed By: 02/20/25922 DD/ 9 TD/TT: Loan Adviser: [facility] Radiology Study observation (narrative) [facility] US OB BPP W NON-STRESS Ordered By: Radiologist Radiology on 02-20-2025 [facility] Healthcar e Work Phone: Urinalysis macro (dipstick) panel (U)on 02-13-2025 Bilirubin, UA Negative Negative - 4(70) +++ mg/dL [facility] Blood, UA Negative Negative - 50 Darnell/mcL [facility] Clarity, UA Clear [facility] re Color, UA Yellow [facility] e Glucose, UA Negative Negative - 1999(110) ++++ mg/dL [facility] Interpretation and review of laboratory results Abnormal [facility] re Ketones, UA Negative Negative - 160(16) ++++ mg/dL [facility] Leukocytes, UA Positive Negative - 500+++ Shona/mcL [facility] Comment on above: small Nitrite, UA Negative Negative - Positive [facility] pH, UA 6 5 - 9 [facility] Protein, UA Trace Negative - 1999(20) ++++ mg/dL [facility] Spec Grav, UA 1.025 1 - 1.03 [facility] Urobilinogen, UA 0.2 0.2 - 12 mg[facility]dL [facility] ALL PLATELET COUNTon 025 TBH PLT 151 [facility] CLINISYNC [facility] Healthcar e US OB PLACENTAon 01-17-2025 [place] [address] Ultrasound Report Signed Patient: MEENA LUCERO MR#: [id number] : 1995 Acct:[id number] Age/Sex: 29 / F ADM Date: 01/16/25 Loc: US Attending Dr: Gary Robison D.O. Ordering Physician: Gary Robison D.O. Date of Service: 01/16/25 Procedure(s): US OB placenta Accession Number(s): [id number] cc: Gary Robison D.O.; Physician,Non-Staff Del The [place] [id number] Patient Name: MEENA LUCERO MRN: [id number]:[id number] date: 1995 Sex: F Assigned Patient Location: US Current Patient Location: [facility] Accession/Order Number: [id number] Exam Date: 01/16/2025 11:08 Report Date: 01/16/2025 [...] Marlene Orellana M.D.01/16/2025 11:19 AM Dictation Location: [place] [address] Electronically authenticated by: [id number] Y Date: 01/16/2025 11:19 Dictated By: Marlene Orellana M.D. Signed By: 01/17/25 1034 DD/ 1119 TD/TT: Loan Adviser: [facility] Radiology, Radiologist, MD - 01/17/2025 [place] [address] Ultrasound Report Signed Patient: MEENA LUCERO MR#: [id number] : 1995 Acct:[id number] Age/Sex: 29 / F ADM Date: 01/16/25 Loc: US Attending Dr: Gary Robison D.O. Ordering Physician: Gary Robison D.O. Date of Service: 01/16/25 Procedure(s): US OB placenta Accession Number(s): [id number] cc: Gary Robison D.O.; Physician,Non-Staff Del The [place] [id number] Patient Name: MEENA LUCERO MRN: [facility]:[id number] date: 1995 Sex: F Assigned Patient Location: Current Patient Location: [facility] Accession/Order Number: [id number] Exam Date: 01/16/2025 11:08 Report Date: 01/16/2025 [...] Marlene Orellana M.D.01/16/2025 11:19 AM Dictation Location: [place] [address] Electronically authenticated by: [id number] Y Date: 01/16/2025 11:19 Dictated By: Marlene Orellana M.D. Signed By: 01/17/25 1034 DD/ 1119 TD/TT: Loan Adviser: [facility] [employer] OB PLACENTAOrdered By: Ra duncan Radiology on 01-17-2025 [facility]: No Panel Informationon 01-16 Radiology Study observation (narrative) [facility] US OB GROWTHon 01-16-2025 [place] [address] Ultrasound Report Signed Patient: MEENA LUCERO MR#: [id number] : 1995 Acct:[id number] Age/Sex: 29 / F ADM Date: 01/16/25 Loc: US Attending Dr: Gary Robison D.O. Ordering Physician: Gary Robison D.O. Date of Service: 01/16/25 Procedure(s): US OB growth Accession Number(s): [id number] cc: Gary Robison D.O.; Physician,Non-Staff Del The [address] [address] Patient Name: MEENA LUCERO MRN: [id number]:[id number] date: 1995 Sex: F Assigned Patient Location: US Current Patient Location: US Accession/Order Number: [id number] Exam Date: 01/16/2025 11:08 Report Date: 01/16/2025 [...] Marlene Orellana M.D.01/16/2025 11:19 AM Dictation Location: [place] [address] Electronically authenticated by: [id number] Y Date: 01/16/2025 11:19 Dictated By: Marlene Orellana M.D. Signed By: 01/16/25 1122 DD/ 1119 TD/TT: Loan Adviser: [facility] Radiology, Radiologist, - 01/16/2025 [place] [address] Ultrasound Report Signed Patient: MEENA LUCERO MR#: [id number] : 1995 Acct:[id number] Age/Sex: 29 / F ADM Date: 01/16/25 Loc: US Attending Dr: Gary Robison D.O. Ordering Physician: Gary Robison D.O. Date of Service: 01/16/25 Procedure(s): US OB growth Accession Number(s): [id number] cc: Gary Robison D.O.; Physician,Non-Staff Del The [address] [address] Patient Name: MEENA LUCERO MRN: [id number] date: 1995 Sex: F Assigned Patient Location: Current Patient Location: Accession/Order Number: [id number] Exam Date: 01/16/2025 11:08 Report Date: 01/16/2025 [...] Marlene Orellana M.D.01/16/2025 11:19 AM Dictation Location: [place] [address] Electronically authenticated by: [id number] Y Date: 01/16/2025 11:19 Dictated By: Marlene Orellana M.D. Signed By: 01/16/25 1122 DD/ 1119 TD/TT: Loan Adviser: [facility] OB GROWTHOrdered By: Braxton ologist Radiology on 01-16-2025 [facility] Work Phone: Urinalysis macro (dipstick) panel (U)on 01-16-2025 Bilirubin, UA Negative Negative - 4(70) +++ mg/dL [facility] Blood, UA Negative Negative - 50 Darnell/mcL [facility] Clarity, UA Clear [facility] Labsma re Color, UA Yellow [facility] Exinda e Glucose, UA Negative Negative - 1999(110) ++++ mg/dL [facility] Interpretation and review of laboratory results Abnormal [facility] Ketones, UA Negative Negative - 160(16) ++++ mg/dL [facility] Leukocytes, UA Moderate Negative - 500+++ Shona/mcL [facility] Nitrite, UA Negative Negative - Positive [facility] pH, UA 7 5 - 9 [facility] Exinda e Protein, UA Negative Negative - 1999(20) ++++ mg/dL [facility] Spec Grav, UA 1.015 1 - 1.03 [facility] Urobilinogen, UA 0.2 0.2 - 12 mg/dL [facility] Exinda e ALL PLATELET COUNTon 025 Interpretation and review of laboratory results Abnormal [facility] TBH PLT 139 Low [facility] Exinda e CLINIS[facility]NC [facility] Exinda e ALL CBC WITH AUTO DIFFon BASOPHILS ABSOLUTE AUTO 0 [facility] Basophils/100 WBC (Bld) 0.2 % 0.2 - 2.0 % [facility] Eosinophils/100 WBC (Bld) 0.9 % 0.9 - 7.0 % [facility] Erythrocyte distribution width (RBC) [Ratio] 13.2 % 11.0 - 15.0 % [facility] Hematocrit (Bld) [Volume fraction] 34.6 % Low 36.0 - 48.0 % [facility] Exinda e Hemoglobin (Bld) [Mass/Vol] 11.5 g/dL Low 12.0 - 16.0 g/dL [facility] IMMATURE GRANULOCYTES ABS AUTO 0.02 [facility] Immature granulocytes/100 WBC (Bld) 0.3 % 0.0 - 0.5 % [facility] Interpretation and review of laboratory results Abnormal [facility] re LYMPHOCYTES ABSOLUTE AUTO 1.3 [facility] Lymphocytes/100 WBC (Bld) 22 % 20.5 - 60.0 % [facility] MCH (RBC) [Entitic mass] 28.8 pg 26.7 - 34.0 pg [facility] MCHC (RBC) [Mass/Vol] 33.2 g/dL 29.9 - 35.2 g/dL [facility] MCV (RBC) [Entitic vol] 86.5 fL 81.0 - 99.0 fL [facility] MONOCYTES ABSOLUTE AUTO 0.4 [facility] Monocytes/100 WBC (Bld) 7.2 % 1.7 - 12.0 % [facility] NEUTROPHILS ABSOLUTE AUTO 4 [facility] Neutrophils/100 WBC (Bld) 69.4 % 43.0 - 75.0 % [facility] Platelet mean volume (Bld) [Entitic vol] 11.7 fL 9.5 - 13.5 fL [facility] TBH EO # 0.1 [facility] TB PLT 117 Low [facility] Healthcar e TBH RBC 4 Low [facility] Healthcar e TBH WBC 5.7 [facility] Healthcar e CLIN[facility]NC [facility] Healthcar e Urinalysis macro (dipstick) panel (U)on 12-19-2024 Bilirubin, UA Negative Negative - 4(70) +++ mg/dL [facility] Blood, UA Negative Negative - 50 Darnell/mcL [facility] Clarity, UA Clear [facility] re Color, UA Yellow [facility] Glucose, UA Positive Negative - 1999(110) ++++ mg/dL [facility] Comment on above: 100 mg Interpretation and review of laboratory results Abnormal [facility] re Ketones, UA Negative Negative - 160(16) ++++ mg/dL [facility] Leukocytes, UA Positive Negative - 500+++ Shona/mcL [facility] Comment on above: small Nitrite, UA Negative Negative - Positive [facility] pH, UA 7 5 - 9 [facility] Healthcar e Protein, UA Negative Negative - 1999(20) ++++ mg/dL [facility] Spec Grav, UA 1.02 1 - 1.03 [facility] Urobilinogen, UA 0.2 0.2 - 12 mg/dL [facility] Urinalysis macro (dipstick) panel (U)on 11-20-2024 Bilirubin, UA Negative Negative - 4(70) +++ mg/dL [facility] Blood, UA Negative Negative - 50 Darnell/mcL [facility] Clarity, UA Clear [facility] [employer] re Color, UA Yellow [facility] Labscar e Glucose, UA Negative Negative - 1999(110) ++++ mg/dL [facility] Interpretation and review of laboratory results Abnormal [facility] Labsma re Ketones, UA Negative Negative - 160(16) ++++ mg/dL [facility] Leukocytes, UA Positive Negative - 500+++ Shona/mcL [facility] Comment on above: small Nitrite, UA Negative Negative - Positive [facility] pH, UA 7.5 5 - 9 [facility] Exinda e Protein, UA Negative Negative - 1999(20) ++++ mg/dL [facility] Spec Grav, UA 1.015 1 - 1.03 [facility] Urobilinogen, UA 0.2 0.2 - 12 mg/dL [facility] Exinda e IGP,APTIMA HPV,AGE GDLNon AGE GDLN ACOG TESTING Note . [facility] Comment on above: TESTS RESULT FLAG UN ITS REF RANGE LAB Clinician Provided Cytology Information Source.............Cervix No. of containers..01 ThinPrep Vial Age Algo ACOG Subha... - 01 FLAG LEGEND: L-Low Normal,H-High Normal,LL-Alert Low,HH-Alert High <-Panic Low,>-Panic High,A-Abnormal,AA-Critical Abnormal Performed at: 01 =[address] [place] [address] Yulisa Mustafa MD, IGP, RFX APTIMA HPV ASCU Note . [facility] Comment on above: TESTS RESULT FLAG UN ITS REF RANGE LAB DIAGNOSIS: 02 NEGATIVE FOR INTRAEPITHELIAL LESION OR MALIGNANCY. FUNGAL ORGANISMS MORPHOLOGICALLY CONSISTENT WITH FELIPE SPECIES ARE PRESENT. Specimen adequacy: 02 Satisfactory for evaluation. Endocervical and/or squamous metaplastic cells (endocervical component) are present. Performed by: 02 Susan Boucher, Oncology Social Worker ([facility]) . 02 Note: Note 03 The Pap [...] <-Panic Low,>-Panic High,A-Abnormal,AA-Critical Abnormal Performed at: 02 [facility] [address] [place] [address] Piyl Shields PhD, [address] [address] Yulisa Mustafa MD, Performed at: [facility] [id number] Hospital Aide: Yulisa Mustafa MD, Phone: [phone] Performed at: [address] [id number] Hospital Aide: Pily Shields PhD, Phone: [phone] SPATULA-ALONE CERVIX CLINIS[facility]NC [facility] Healthcar e RECURRENT VAGINITIS (HTRX)on 10-18-2024 ATOPOBIUM VAGINAE 0 [facility]care ATOPOBIUM VAGINAE Not detected [facility] BVAB 2,3 (BACTERIAL VAGINOSIS ASSOCIATED BACTERIA 2, 3); MOBILUNCUS SPP 0 [facility] BVAB 2,3 (BACTERIAL VAGINOSIS ASSOCIATED BACTERIA 2, 3); MOBILUNCUS SPP Not detected [facility] FELIPE ALBICANS, PARAPSILOSIS, TROPICALIS 0 [facility] FELIPE ALBICANS, PARAPSILOSIS, TROPICALIS Not detected [facility] FELIPE GLABRATA 0 [facility] Hea lthcare FELIPE GLABRATA Not detected [facility] FELIPE KRUSEI 0 [facility] Healt hcare FELIPE KRUSEI Not detected [facility] Hea lthcare CHLAMYDIA TRACHOMATIS 0 [facility] CHLAMYDIA TRACHOMATIS Not detected [facility] GARDNERELLA VAGINALIS 0 [facility] GARDNERELLA VAGINALIS Not detected [facility] MEGASPHAERA (TYPES 1, 2) 0 [facility] MEGASPHAERA (TYPES 1, 2) Not detected [facility] MYCOPLASMA GENITALIUM 0 [facility] MYCOPLASMA GENITALIUM Not detected [facility] NEISSERIA GONORRHOEAE 0 [facility] NEISSERIA GONORRHOEAE Not detected [facility] TRICHOMONAS VAGINALIS 0 [facility] TRICHOMONAS VAGINALIS Not [facility] macro (dipstick) panel (U)on 10-17-2024 Bilirubin, UA Negative Negative - 4(70) +++ mg/dL [facility] Comment on above: n Blood, UA Negative Negative - 50 Darnell/mcL [facility] Clarity, UA Clear [facility] Color, UA Yellow [facility] Glucose, UA Negative Negative - 2000(110) ++++ mg/dL [facility] Interpretation and review of laboratory results [facility] Ketones, UA Negative Negative - 160(16) ++++ mg/dL [facility] Leukocytes, UA Negative Negative - 500+++ Shona/mcL [facility] Nitrite, UA Negative Negative - Positive [facility] pH, UA 6 5 - 9 [facility] Health[facility] Protein, UA Negative Negative - 1999(20) ++++ mg/dL [facility] Spec Grav, UA 1.03 1 - 1.03 [facility] Urobilinogen, UA 0.2 0.2 - 12 mg/dL [facility] Urinalysis macro (dipstick) panel (U)on 09-18-2024 Bilirubin, UA Negative Negative - 4(70) +++ mg/dL [facility] Blood, UA Negative Negative - 50 Darnell/mcL [facility] Clarity, UA Clear [facility] re Color, UA Yellow [facility] Glucose, UA Negative Negative - 1999(110) ++++ mg/dL [facility] Interpretation and review of laboratory results Normal [facility] re Ketones, UA Negative Negative - 160(16) ++++ mg/dL [facility] Leukocytes, UA Negative Negative - 500+++ Shona/mcL [facility] Nitrite, UA Negative Negative - Positive [facility] pH, UA 6.5 5 - 9 [facility] Protein, UA Negative Negative - 1999(20) ++++ mg/dL [facility] Spec Grav, UA 1.015 1 - 1.03 [facility] Urobilinogen, UA 0.2 0.2 - 12 mg/dL [facility] BOX TESTon 09-11-2024 BOX TEST SENT OUT [facility] [address] Jamii [facility] Exinda e BOX2 11/11/24 [facility]FO [facility] Jamii BOX [facility]IN[facility] Exinda e HCG ( test) Ql (U)o n 08-18-2024 Interpretation and review of laboratory results Abnormal [facility] Healthca re Preg Test, Ur [facility] macro (dipstick) panel (U)on 08-18-2024 Bilirubin, UA Negative Negative - 4(70) +++ mg/dL [facility] Blood, UA Negative Negative - 50 Darnell/mcL [facility] Clarity, UA Clear [facility] Healthca re Color, UA Yellow [facility] Glucose, UA Negative Negative - 1999(110) ++++ mg/dL [facility] Interpretation and review of laboratory results Abnormal [facility] re Ketones, UA Negative Negative - 160(16) ++++ mg/dL [facility] Leukocytes, UA Negative Negative - 500+++ Shona/mcL [facility] Nitrite, UA Positive Negative - Positive [facility] Comment on above: small pH, UA 7.0 5 - 9 [facility] Health[facility] Protein, UA Negative Negative - 1999(20) ++++ mg/dL [facility] Spec Grav, UA 1.015 1 - 1.03 [facility] Urobilinogen, UA 0.2 0.2 - 12 mg/dL [facility] ALL HCG, QUANTITATIVEon 07-23 Interpretation and review of laboratory results Abnormal [facility] Healthca re MHPT HCG, QUANT 26110.0 High [facility] thcare Comment on above: Non-preg premeno <=5 Postmeno <=8 Male <=3 If HCG results do not concur with clinical observations, additional testing to confirm results is recommended. Original Ordering Provider: [facility] HCG, Quanton 08-07-2024 HCG, Quant 86293.0 mIU/mL High <5 [facility] Comment on above: Result Comment: Non-preg premeno <=5 Postmeno <=8 Male <=3 If HCG results do not concur with clinical observations, additional testing to confirm results is recommended. Performed By: #### B HCG #### [facility] [address] [place] [address] Hospital Aide: Armen Madrigal MD HCG, Quantitative, on 08-07-2024 [place] [address].0 m[IU]/mL High NINF [facility] Comment on above: Non-preg premeno <=5 Postmeno <=8 Male <=3 If HCG results do not concur with clinical observations, additional testing to confirm results is recommended. Interpretation and review of laboratory results Abnormal [facility] ALL HCG, QUANTITATIVEon 07-23 Interpretation [...] 08-02-2024 HCG, Quant 1366.0 mIU/mL High <5 [facility] Comment on above: Result Comment: Non-preg premeno <=5 Postmeno <=8 Male <=3 If HCG results do not concur with clinical observations, additional testing to confirm results is recommended. Performed By: #### B HCG #### [facility] [address] [place] [address] Hospital Aide: Armen Madrigal MD ALL HCG, QUANTITATIVEon Interpretation [...] Quant 506.3 mIU/mL High <5 [facility] Comment on above: Result Comment: Non-preg premeno <=5 Postmeno <=8 Male <=3 If HCG results do not concur with clinical observations, additional testing to confirm results is recommended. Performed By: #### B HCG #### [facility] [address] [place] [address] Hospital Aide: Armen Madrigal MD HCG, Quantitative, on 07-31-2024 HCG.beta subunit Qn 506.3 m[IU]/mL High NINF B ON [facility] Comment on above: Non-preg premeno <=5 Postmeno <=8 Male <=3 If HCG results do not concur with clinical observations, additional testing to confirm results is recommended. Interpretation and review of laboratory results Abnormal [facility] ALL HCG, QUANTITATIVEon Interpretation and review of laboratory results Abnormal [facility] MHPT HCG, QUANT 200.3 High NINF [facility] Comment on above: Non-preg premeno <=5 Postmeno <=8 Male <=3 If HCG results do not concur with clinical observations, additional testing to confirm results is recommended. Original Ordering Provider: [facility] HCG, Quanton 07-29-2024 HCG, Quant 200.3 mIU/mL High <5 [facility] Comment on above: Result Comment: Non-preg premeno <=5 Postmeno <=8 Male <=3 If HCG results do not concur with clinical observations, additional testing to confirm results is recommended. Performed By: #### B HCG #### [facility] [address] [place] [address] Hospital Aide: Armen Madrigal MD ALL HCG SERUM,QUALITATIVEon 07-27-2024 Interpretation and review of laboratory results Abnormal [facility] MHPT HCG SCREEN, BLOOD Positive Abnormal NEG [facility] Comment on above: If HCG results do not concur with clinical observations, additional testing to confirm result is recommended. This test is not labeled for use as a tumor marker. [facility] has confirmed the use of plasma for this test. This has not been cleared or approved by the U.S. Food and Drug Administration. The FDA has determined that such clearance is not necessary. Original Ordering Provider: [facility] HCG Screen, Bloodon 07-27-20 HCG Screen, Blood Positive Abnormal NEG [facility] Comment on above: Result Comment: If HCG results do not concur with clinical observations, additional testing to confirm result is recommended. This test is not labeled for use as a tumor marker. [employer] has confirmed the use of plasma for this test. This has not been cleared or approved by the U.S. Food and Drug Administration. The FDA has determined that such clearance is not necessary. Performed By: #### H CG #### [facility] [address] [place] [address] Hospital Aide: Armen Madrigal MD HCG, Quanton 07-27-2024 HCG, Quant 73.4 mIU/mL High <5 [facility] Comment on above: Result Comment: Non-preg premeno <=5 Postmeno <=8 Male <=3 If HCG results do not concur with clinical observations, additional testing to confirm results is recommended. Performed By: #### B HCG #### [facility] [address] [place] [address] Hospital Aide: Armen Madrigal MD HCG, Quanton 06-08-2024 HCG, Quant <1.0 Normal <5 [facility] Comment on above: Result Comment: Non-preg premeno <=5 Postmeno <=8 Male <=3 If HCG results do not concur with clinical observations, additional testing to confirm results is recommended. Performed By: #### B HCG #### [facility] [address] [place] [address] Hospital Aide: Armen Madrigal MD XR SACRUM COCCYX (MIN 2 VIEW S)on 05-24-2024 XR SACRUM COCCYX (MIN 2 VIEWS) HISTORY: Sacral pain. TECHNIQUE: 3 views sacrum and coccyx. COMPARISON: None. FINDINGS: Sacroiliac joints are normal. No fracture or acute osseous abnormality is identified. IMPRESSION: No acute process. Interpreted by: Parker Coleman MD Signed by: Parker Coleman MD 05/24/24 Final result Normal [facility] HCG, Quanton 03-04-2024 HCG, Quant 3680.0 mIU/mL High <5 [facility] Comment on above: Result Comment: Non-preg premeno <=5 Postmeno <=8 Male <=3 If HCG results do not concur with clinical observations, additional testing to confirm results is recommended. Performed By: #### B HCG #### [facility] [address], [place] [id number] Hospital Aide: Armen Madrigal MD Cytology Cervical or vaginal smear or scraping studyon 05-26-2023 [facility] RAD - MISCon 02-01-2023 RAD - MISC [id number] #1.00CD:127 Normal [facility] XR ANKLE RIGHT (MIN 3 VIEWS) on 01-29-2023 FINDINGS/IMPRESSION: 1. Compression fracture tip of the fibula no longer separately seen. 2. Anatomic alignment throughout. 3. Soft tissue swelling has resolved. [facility] EXAM: XR ANKLE RIGHT (MIN 3 VIEWS). HISTORY: Other closed fracture of proximal end of right fibula with routine healing, subsequent encounter. COMPARISON: 01/10/2023. [facility] Mauro Anton Jr., MD - 01/29/2023 EXAM: XR ANKLE RIGHT (MIN 3 VIEWS). HISTORY: Other closed fracture of proximal end of right fibula with routine healing, subsequent encounter. COMPARISON: 01/10/2023. IMPRESSION: FINDINGS/IMPRESSION: 1. Compression fracture tip of the fibula no longer separately seen. 2. Anatomic alignment throughout. 3. Soft tissue swelling has resolved. [employer] Phone: Radiology Study observation (narrative) [employer] Phone: XR ANKLE RIGHT (MIN 3 VIEWS) Ordered By: Mauro Anton on 01-29-2023 [employer] Phone: RAD - MISCon 01-11-2023 RAD - MISC [id number] #1.00CD:127 Normal [facility] XR ANKLE RIGHT (MIN 3 VIEWS) on 01-10-2023 FINDINGS/IMPRESSION: 1. Very small nondisplaced incomplete fracture is questioned in the distal tip of the right fibula, with mild surrounding soft tissue swelling. 2. No other fracture, malalignment, significant arthritis or acute bony abnormality is seen. [facility] CLINICAL HISTORY: Right ankle pain and swelling since an injury yesterday. RIGHT ANKLE 3 VIEWS: [facility] João Amezquita MD - 01/10/2023 CLINICAL HISTORY: Right ankle pain and swelling since an injury yesterday. RIGHT ANKLE 3 VIEWS: IMPRESSION: FINDINGS/IMPRESSION: 1. Very small nondisplaced incomplete fracture is questioned in the distal tip of the right fibula, with mild surrounding soft tissue swelling. 2. No other fracture, malalignment, significant arthritis or acute bony abnormality is seen. [employer] Phone: Radiology Study observation (narrative) [employer] Phone: XR ANKLE RIGHT (MIN 3 VIEWS) Ordered By: João Amezquita on 01-10-2023 [employer] Phone: Ambulatory Visit Summaryon 0 12-08-2022 Ambulatory Visit Summary MEENA LUCERO :1995 Visit Date:12/08/2022 Ambulatory Visit Instructions Your Diagnosis Gastroenteritis due to Altoona-like virus Obesity due to excess calories BMI [...] to 60 minutes before meals Pickup at [facility] Unchanged multivitamin, ( Multivitamins with Vitamin B Complex, Vitamin C, Minerals and L-Methylfolate oral capsule) 1 Capsules By Mouth Every day Contact prescribing physician if questions or concerns Unchanged ondansetron (Zofran ODT 4 mg Tab-Dis) 1 Tablets By Mouth 3 times a day Contact prescribing physician if questions or concerns Pharmacy Information [facility]: [address], [place] [id number] [phone] Medications and Immunizations Administered Not Given influenza virus vaccine, inactivated, Postpone due to refusal SARS-CoV-2 mRNA (tozinameran 5y-11y) vac, Postpone due to refusal Allergies Percocet 5/325 (Hives, Rash) Vicodin (Hives) codeine (Hives, Rash) Problems Ongoing - Any problem that you are currently receiving treatment for. BMI 31.0-31.9,adult Gastroenteritis due to Altoona-like virus Non-smoker Obesity due to excess calories [...] system (more content not included)... Normal [facility] ED Note-Physicianon 12-08-19 ED Note-Physician [id number] #1.00CD:127 Normal [facility] Family Medicine Office/Clini c Noteon 12-08-2022 [...] and COVID. 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 Gastroenteritis due to Altoona-like virus (A08.8: Other specified intestinal infections) Viral [...] day(s), # 30 tab(s), Refills(s) 0, Pharmacy: [facility], 170, cm, 12/08/22 12:00:00 EST, Height/Length Dosing, 90.5, kg, 12/08/22 12:00:00 EST, Weight Dosing Follow-up With When Contact Information SUSAN BENAVIDEZ, [place], FAM Only if needed Additional Instructions: Patient Education Viral Gastroenteritis, Adult Problem List/Past Medical History Ongoing BMI 31.0-31.9,adult Gastroenteritis due to Altoona-like virus Non-smoker Obesity due to excess calories [...] Alcohol Use, 05/26/2017 Employment/School 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 Normal [facility] Comment on above: Result Comment: Kathie houston Signed By: Keyon DAVIS MD\.mariann\Date and Time Signed: 12/08/22 12:20 EST Patient [...] and water are not available, use hand dyeing machine feeder. ? Make sure that all people in your household wash their hands well and often. ? Take smcd-psc-dzrgkhq and prescription medicines only as told by [...] person (more content not included)... Normal [facility] COVID-19, Rapidon 12-04-2022 SARS-CoV-2 (COVID-19) RNA WADE+probe Ql (Unsp spec) Not detected Not Detected [facility] Comment on above: Rapid [...] management decisions. Fact sheet for Healthcare Providers: https://www.fda.gov/media/991218/download Fact sheet for Patients: https://www.fda.gov/media/507911/download Methodology: Isothermal Nucleic Acid Amplification Specimen Description .NASOPHARYNGEAL SWAB [facility] Rapid influenza A/B antigens on 12-04-2022 Flu A Antigen Negative NEGATIVE [facility] Comment on above: for Influenza A Anti gen Flu B Antigen Negative NEGATIVE [facility] Comment on above: for Influenza B Anti gen. [facility] C Urineon 09-06-2022 Bacteria [...] Locations R1: This test was performed at: [facility], [address] [place] [address], [phone] , [facility] Comment on above: Performed By: #### 2 [id number] ####[facility] [address] [place] [address] Coding Summary.on 09-04-2022 Coding Summary. CD:[id number] Gh0bWw+PGhlYWQ+PE1FV QKlK39slMAtrF9MJ8nAO L3IQJVVEPOBGX6UFO6xm XZ3OFxpR3ZplqLt FswcjAMiOD93PKw4EDP3 kWhxTMjwlX8agFGhL9h7 HlUbMI76sO25TKftWIKf VlP1JsGgudqabNKy S1bwBpEvfCUiAoc+PHRh YmxlIHdpZHRoPScxMDAl NgIbpLwoOM4jHa2eNKMt LWNvbGxhcHNlOiBj s7cqDPNgMQkqVR9taTij J6OlgJT5DAWbn0d1Li28 dHI+DWPjENC0rZepAMgx n180RvZub8zrDLE9 nYJyIBshDGU5Q72qz7U1 MNVsHWYaOUC3oZQ0oU5g jOgijtjdB5TknKTqEpU0 UHE0nYCjgU0cjTkx xhvbjV0yOha+R34SJF8U KUHSJH2HGzx0E2BkXfuf dHI+EI41IFGfVT07hXTb kEZxz9lzcZb5UlNl OIYkGUX9yRnxQTcgp0Tt WRTiB07dhCRnh6T0RJYc uKaezVImUsEdzIE3kP8e PKmduzdfg4oargkn Pibpp2mbwb09xQ34K29f ZBvsLYKvMMG0LHPuLKPl pAoqei0hzY5mXy6+IDxj w8zcu0xbdKv9YsYq HCQyhoPovDiwGWI7k4Mj Ym09U5NgdFxod0CgHpj1 gb92iHTvn0S0iHI1IMpf MUOwgR0dPXifNoY3 UQRrWiOfhV94dTCkLQif Cx7dvQrycXvfGX4aYNBd lvndKCItbS5cGNXlpOMn mXaxOE6oZMVggtzb o101MsUjSSB2ZGFkbBYx X9EiaB0hQrYpHWZgSTIv S5VfnJWaBGoeQ416DMot HwA1UOHlbyYlH6Ye WGVmiThpDtA2u8X5Wt5G o3FkhllmHPT0UWvgJMRv EnL4QxNxCbR4I3LmUdl2 BJPcoDvjNE6gX5Qa RXFhwucklivoqCV5VMZd CPSuaN51xMMfCHglJu2a o4Z9k605EMKfUAFwtW80 Tq8gpUarWCMdjTGX aV3ormcyd0coplwjPnYu VCNlEKp1QLw9ZNCuwVqe AnYxQQX2IrM2DOB1lOVy oD2geWzmeoamtV7n Oyc+Z10zmI2tSEV8JPT5 xeqwUXTcihAiJD59KO70 Z4ZwQlykvWJpyRU+PGRp noMdrDpbQE3pSqPb t1mti6MaXAghY9PoHPOa WYznOan4HPKhFWM5zYM5 yJ0bQFPmIKdan4B4nHN5 H1SxozRqku0ru5pt XTNrSQveJ30czHByi5N6 OERyyUM3XJKkaZwxBeSo aB11Ejs+BOQfrVxaq4Bq Gxyux3trx9zvsOw7 IjMwJSIgdmFsaWduPSJ0 c7GdYn73A43vFUuwGHCc BZWaLQEvFSVofSzqux2x pE7uVi5+PGNvbCB3 vJZ8gV5yCBNfQeZ2ZTfp Y575LrAgxOJgMnald4lx y6yiaKs2MtWtVGGfjuVg oYmzXJP3a3YoZa16 X67iJJbcINCxBKVhKLMt LPNemLuslj5bjL8wFd5+ CT0ue1sszq21mC15qSJ+ QPNsLXZ2sEpyNXeq HPIfgX2gYXphPwE7FFRy RjNvyZ91gFQmQTckXj7v aDugtIpoMA6sBELiiksi e043CjWrv0wlHRKt qTTlPXqkUZS8L44wq7M4 YTLmUFEmQPG4cMS5jM7t bGlnbjogbGVmdDsgdmVy tOhhFQxcARneX106 IHRvcDsnPlBhdGllbnQg ZjOnXUi8A9IbBsn1JNTu yKzdHW4pbTKoBCsfVu8c nXtwlPtoZC3dSEFa bvtgc461EjWul5lyCKCd tMFuCVylCRG4Q15ke2P9 FURoWHCaVYK3dAO5gE4y bGlnbjogbGVmdDsg jfMjvZuzYYsyGQdiO529 IHRvcDsnPkJpcnRoIERh wII5OV25BC64yGIvm0G2 dAH0R7YaOELbfcln oemafKG8AQOpWSNsaZ50 Mf8leKjzGl9aPIAzGVY7 AIShvUZjM6AjdW5zNiMh HCIrYYXqK1LvcYPo FCuaO051ABtcRvJ1CQAw jtFdN5RiMEMqhZfkSuH3 g3J5Cq8JJ8S3YW93OE05 hWNxs8P6jSF7D6Rf TBHigojuapcywDW9ZHUf PAMhpQ10Wd5oaRtcQb9p CCJcONU1DVTnqNAtF9Zd pA0wZiHgERPfUOBx D5QesFIwORfrJ771FPly NwW1GEUghiZxC3KuUAMp lEfzFpV2g2M4Ja4LOUa1 ML00DL42tNUee7W8 oUB1N0TbUUJiodkmqeqy yMJ0BETnGPWydQ44Ig9b jNabFk3fUAVmZRG9SEPl zPHzS2LwgW0uEkMv GBKhIQOiC8GxyBYuPXde Q286BXhgBxS1NXFzwqPr N0EtDZRteMyzHhK8k3Q8 Lb4WBWXuKB12LDK0 jZB6EZ55LL90W6GsRzct dGFibGU+PHRhYmxlIHdp ZHRoPScxMDAlJyBzdHls PW1lGl9tWTNlBNQo aJdvyRTfKnHqo8rnVPRg VFxiLZ7dwNfhF2JdeDR9 OVLse0q3Il72Y01dH0Fn dXA+ODFplQR8oLB3 pT3fRcVzIcP7BMefT039 TzGrhEEsVvlch8gfz9it zUc9AnM3VVMwnbMmuCdt GUD5z5CwNq17T31v IHdpZHRoPSIxNSUiIHZh lJaliq5pgY7vMt5+PGNv eHD8bVT9bX5eSySeWiC5 ZZvyZ628BuVvhVIo Tnkdu7ser1rbkJr9TiOp RVVanzOiqMdxTCD3o5Zu Ud10Z6MxvFupy8ZuKav9 zh79tUDnk5T0fJW0 P7YuWTXnuudbfLTgsZwb VW5kAGDveupdVCJtkG9t HFUoK2i4HmJbBcF0CCuo X6YorbS8KILstKOy CYtyWNT0J35wa9X1KSUe PRZpXLD2sWN0kS2vlAxc bjogbGVmdDsgdmVydGlj NKphSQutV976HQBe pIvmHJIiaZ0fDNStaQUt zEtwLW3jNGXeckjkMcSN Nj4FNLVfFSkXQZrAJZ5o RTwvdGQ+PHRkIHN0 uRamTRbgVAKbwP7vFYLt U9r5JgWlIoA8AArkA8Gy LPPnflxrDs63nT5pUoYn NrU4VPruE4HzmhB3 NLEieBImHWnqDKB5C89v j5Z1LGJtBOMzKGR2wPL2 gX0nhJibllvvwVUqfBkl dmVydGljYWwtYWxp U909XBGbqCemQwOaOqT2 PuO3ZRD8I8ZvBzr5GOFs aWysXO1oqRKhCClbMi4w xEhgqZfxER4cKLKj vjkcXWMlsO3fJFNkvCJo fHscIT5tSSCmykeri745 BrSeTML5PWWomZQsK8Xp jI1fDwGmPYFsIWZw O7YpdDQwFKxwT749NUwf UlG8FXOxwqWjG2DfKBMg xLjuYrW1f5M8Cv9gXySW ZWFyczwvdGQ+PHRk FTS8lOefOTzfPYAwvA0b AXHjX1v3ShFwRwM7TUhu N6GbEIGozxwdEf94iL8u IfXpKeI8LDffT7Ia aeG2TRWojMQvOEeaSXE8 H56sz3N6AKSgURIhZJZ1 qZW4vK4kwMvpwcdjzJAs dDsgdmVydGljYWwt CJcoH455JACifZfqNbPj bWFsZTwvdGQ+PHRkIHN0 pItuLNmqPRWndY9tYOUt A7u6ZpKsFaL8QHkg S7BmHANppngtWu69aJ8d XvAsAgG2WQpuB1FgjhJ1 ECImoBQeUZewVSC2D52o a5V7IFZtYGQmXMP6 pOK9oF3cwKxbequxdXVc dDsgdmVydGljYWwtYWxp R163DICbhSaaRgBoHTLt IB6vsSyndPS+PC90 oo16S4BuJxseXtb2NIWn USJ1sHW4pQ4cEKCvQLeu i6M4pRK9K5WfpxFjsn9m m0ybHHUlQHncO10k mVJpg7N3PZTsvIR4ZJLp rCdeMdJroL89Djm+PGNv lPeua1CjYfhbh9sqs0fq nIu1RoCdNRVjmmLk pBfxIZC0d4EeTx27B62h IHdpZHRoPSIzMCUiIHZh sKqrjv8hjO6gIb2+PGNv qTU8nGY4wW0mToNd MsN5UYcyU643JuAzgICn Ixect7eda2bjiRq4XhWu DQZhicCooOjfMPC9x9Pm Ub80W3CidInad8Bv Urb2ha87pRVmf4Q1fKD0 L2NmNSUwajnuqEJjlPhc HY5yETZuxtcmKCRhdK7i ZFEqR7n7SrUzRoT7 OFmhV6LfwgQ6EPWhsCUr UAKccYTWuK9edskhw8mq imlnIcJnCRDvPWd0UId9 LWFsaWduOiBsZWZ0 KoE4FIG8mEZtbP7alXep xqvsiP3hMlj+TEl7o2rx kQBmDA7mgKQ3BD25VG57 rPEsy7Y7uWJ6G7Lb TLIigwxyipjkdFI4HNNr EAUulT78Yh5ybEkgUn8i TWRsLXJ1WYAypKSaK1Pe lN4zWoVgGVVjHRCu J0IfrXNbIIbmM610BYir BqI3CRYehdNwO6LcYODn hVpzOhY4c8C3Dh9CAA04 GL73WC67nVEqh0A1 iKY6J5WuUQIydmhcopyt kCW2ZYNsWMHnqD21Qm1k gVxtKw2qOOFmLDH7ZKNq iBJnQ8KeaT2sVzPr GFBnZMWmT3BixRMjQVzi E883HVgsYvG0AUYbeqVh V9RlXTImwNdvRgR1a6A8 Wb0RZg45IV77VQ89 aALii1H8mAU5D0OuNJFm vlbiddkerRC6SGRiJFQc uG73Ni0mnMooAi5yYSSx REH8ARRbyFTfU5Pq zN3jWwSaORGjVTWtY2Uo qHFzTShvX753IKzbKuX5 GLYaytPvO2LwPXJjfQor YiC3t3P9Xd0QCIks zpr7M2ShKqftdBL+PC90 SULfTQ56sCOqjJPrl7cx uNb6IhRxDVJcTYD0pWdu CAztt3LhIMNrE82w bGFw (more content not included)... Normal [facility] Consent for Treatmenton 08-22 Consent for Treatment [id number] #1.00CD:127 Normal [facility] Discharge Instructionson Discharge Instructions [id number] #1.00CD:127 Normal [facility] ED Clinical Summaryon 2021 ED Clinical Summary [address] [address] ED Clinical Summary Person Information Name: MEENA LUCERO [place] Age: 26 Years : 1995 Sex: Female Language: Croatian PCP: Charli LOPEZ Marital Status: Single Visit [...] 09/03/2022 15:51:51 09/03/2022 15:51:51 09/03/2022 15:51:51 ADDRESS: [address] [place] [phone] PHYS DOC NOTES: MEDICAL INFORMATION: Prescriptions Given: New Medications [facility], [address], [place] [id number], [phone] ondansetron (Zofran ODT 4 mg Tab-Dis) 1 Tablets By Mouth 3 times a day. Refills: 0. Medications to Continue with No Changes Other Medications multivitamin, ( Multivitamins with Vitamin B Complex, Vitamin C, Minerals and L-Methylfolate oral capsule) 1 Capsules By Mouth every day. Refills: 0. PATIENT EDUCATION INFORMATION: Instructions: Nausea and Vomiting, Adult Follow up: With: Address: When: Charli CARLSON [address] [place] [id number] Business (1) In 3 days 09/06/2022 DIAGNOSIS: Nausea & vomiting Normal [facility] ED Note-Physicianon 09-03-20 ED Note-Physician Basic [...] TID, # 15 tab(s), Refills(s) 0, Pharmacy: [facility], 170, cm, 09/03/22 14:31:00 EDT, Height/Length [...] CARLSON In 3 days 09/06/2022 EDT [address] [place] [address]- Business (1) Additional Instructions: Patient Education Nausea and Vomiting, Adult Attestation Patient seen and evaluated by the physician audiology assistant. Attending physician was present in the emergency department and supervised care. This visit was performed by both the physician and an APC. I performed all aspects of the MDM as documented. This report was transcribed using voice recognition software. Every effort was made to ensure accuracy, however, inadvertently computerized forming machine upkeep mechanic helper mistakes may be present. Appropriate healthcare [...] 14:49:0 (more content not included)... Normal [facility] Comment on above: Result Comment: Elec [...] added (diluted fruit juice). ? Eat bland, slba-tz-lwppde foods in small amounts as you are able. These foods include bananas, applesauce, rice, lean meats, toast, and crackers. ? Avoid fluids that contain a lot of sugar or caffeine, such as energy drinks, sports drinks, and soda. ? Avoid alcohol. ? Avoid spicy or fatty foods. General instructions ? Take xyqf-oau-dguapec and prescription medicines only as told by your health care provider. ? Drink enough fluid to keep your urine pale yellow. ? Wash your hands often using soap and water. If soap and water are not available, use hand dyeing machine feeder. ? Make sure that all [...] and drinking to prevent dehydration. ? Take xzuf-ebi-aumkcfu and prescription medicines only as told by [...] 11/08/2006 Document Revised: 03/01/2020 Document Reviewed: 04/18/2019 [employer] Patient Education ? 2019 [employer]. Normal [facility] ED Patient Summaryon 022 ED Patient Summary [address] [address] Patient Discharge Instructions Person Information Name: MEENA LUCERO Age: 26 Years Arrival Date: 09/03/2022 14:27:10 Discharge Diagnosis: Nausea & vomiting Primary Care Physician: Charli LOPEZ Provider Information Primary Provider: Evan Moyer DO Advanced Director Commercial Sales:Neil Meza PA-C The exam and treatment you received in the Emergency Department were for an urgent problem and are not intended as complete care. It is important that you follow up with a doctor, nurse practitioner, or physician?s audiology assistant for ongoing care. If your symptoms become worse or you do not improve as expected and you are unable to reach your usual health care provider, you should return to the Emergency Department. We are available 24 hours a day. NIC MEENA Lissa has been given the following list of patient education materials, prescriptions and follow-up instructions: Follow-up Instructions: With: Address: When: Charli CARLSON [address] [place] [id number] Business (1) In 3 days 09/06/2022 In the event that this physician does not participate in your insurance network, please consult with your insurance company to find a nearby participating provider. Patient Education Materials: Nausea and Vomiting, Adult A MESSAGE TO ALL PATIENTS REGARDING OPIOIDS PRESCRIPTION OPIOIDS: WHAT YOU NEED TO KNOW Prescription opioids can be used to help relieve cghxpoii-bh-indrge pain and are often prescribed following a [...] be struggling with addiction, tell your health caretaker resort and ask for guidance or call [facility]?S National Helpline at 2-378-867-TGKR. o Source: Dep (more content not included)... Normal [facility] U BetaHcg Qualon 09-03-2022 HCG.beta subunit (U) [Moles/Vol] Negative Normal [facility] Comment on above: Performed By: #### 2 [id number], [id number], [id number] ####[facility] [address] [place] [address] UA With Cult Reflexon 2021 Bacteria LM Ql (Urine sed) 2+ /HPF Abnormal Trace [facility] Comment on above: Performed By: #### 2 [id number], [id number], [id number] ####[facility] [address] [place] [address] Bilirubin Ql (U) Negative Normal Negative [facility] Comment on above: Performed By: #### 2 [id number], [id number], [id number] ####[facility] [address] [place] [address] Clarity (U) CLEAR Normal Clear [facility] Comment on above: Performed By: #### 2 [id number], [id number], [id number] ####[facility] [address] [place] [address] Color (U) YELLOW Normal Yellow [facility] Comment on above: Performed By: #### 2 [id number], [id number], [id number] ####[facility] [address] [place] [address] Epithelial cells.squamous LM.HPF (Urine sed) [#/Area] 5-8 Normal 0-2 [facility] Comment on above: Performed By: #### 2 [id number], [id number], [id number] ####[facility] [address] [place] [address] Glucose Test strip (U) [Mass/Vol] Negative Normal Negative [facility] Comment on above: Performed By: #### 2 [id number], [id number], [id number] ####[facility] [address] [place] [address] Hemoglobin Ql (U) Negative Normal Negative [facility] Comment on above: Performed By: #### 2 [id number], [id number], [id number] ####[facility] [address] [place] [address] Ketones (U) [Mass/Vol] Negative Normal Negative [facility] Comment on above: Performed By: #### 2 [id number], [id number], [id number] ####[facility] [address] [place] [address] [place].plasma/Lith ium.RBC (Bld) [Mass ratio] 0-3 Normal 0-3 [facility] Comment on above: Performed By: #### 2 [id number], [id number], [id number] ####[facility] [address] [place] [address] Mucus Ql (Urine sed) 1+ Normal [facility] Comment on above: Performed By: #### 2 [id number], [id number], [id number] ####[facility] [address] [place] [address] Nitrite Ql (U) Negative Normal Negative [facility] Comment on above: Performed By: #### 2 [id number], [id number], [id number] ####[facility] [address] [place] [address] pH (U) 5.5 [pH] Invalid Interpretation Code 5.0-9.0 [facility] Comment on above: Performed By: #### 2 [id number], [id number], [id number] ####[facility] [address] [place] [address] Protein (U) [Mass/Vol] Negative Normal Negative [facility] Comment on above: Performed By: #### 2 [id number], [id number], [id number] ####[place] [id number] Specific gravity (U) [Rel density] >=1.030 Invalid Interpretation Code 1.005-1.030 [facility] Comment on above: Performed By: #### 2 [id number], [id number], [id number] ####[place] 3286857 Type of Urine collection method Clean Catch Normal [facility] Comment on above: Performed By: #### 2 [id number], [id number], [id number] ####[place] 3286857 Urobilinogen Qn (U) 0.2 {Elver'U}/dL Normal 0.0-1.0 [facility] Comment on above: Performed By: #### 2 [id number], [id number], [id number] ####[address] [address] WBC Auto Ql (U) Negative Normal Negative [facility] Comment on above: Performed By: #### 2 [id number], [id number], [id number] ####[place] 3286857 WBC LM.HPF (Urine sed) [#/Area] 0-5 Normal 0-5 [facility] Comment on above: Performed By: #### 2 [id number], [id number], [id number] ####[address] [address] XR WRIST LEFT (MIN 3 VIEWS)o n 06-19-2022 Normal left wrist. [facility] RIS CONSOLIDATED EXAM: XR WRIST LEFT (MIN 3 VIEWS) HISTORY: M25.532. 26-year-old female, left wrist pain. COMPARISON: None. TECHNIQUE: Three views left wrist. FINDINGS: The radiocarpal joint and wrist are normal. Normal scapholunate distance. No erosion or chondrocalcinosis. [facility] RIS Mauro Dhaliwal Jr., MD - 06/19/2022 EXAM: XR WRIST LEFT (MIN 3 VIEWS) HISTORY: M25.532. 26-year-old female, left wrist pain. COMPARISON: None. TECHNIQUE: Three views left wrist. FINDINGS: The radiocarpal joint and wrist are normal. Normal scapholunate distance. No erosion or chondrocalcinosis. IMPRESSION: Normal left wrist. 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 pain has been constant for about 1 week now. History of Present Illness Pt presents today to [facility] care. Previous pt of [facility] in [place]. Concerned today about left wrist pain which started about 1 yr ago; pain has worsened over the last week. 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 Carries everything in her left hand. Right handed. Pain location: medial martinez hand, radiating to wrist Pain description: shooting Pain rated: 2/10, 7/10 with certain movements. 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 Negative Tinels and DeQuervians. + Phalens. Systems Coordinator strength equal. Neurologic: Cranial nerves II-XII grossly intact. Skin: [place], warm and dry. No rashes, ulcerations, or [...] day(s), # 30 tab(s), Refills(s) 1, Pharmacy: [facility], 170, cm, 06/01/22 12:55:00 EDT, Height/Length Dosing, 91.3, kg, 06/01/22 12:55:00 EDT, Weight Dosing [facility] External Ambulatory Referral 2. BMI 31.0-31.9,adult (Z68.31: [...] fo (more content not included)... Normal [facility] Comment on above: Result Comment: Elec [...] height. This can be done either in Croatian (U.S[place] or metric measurements. Note that charts are available to help you find your BMI quickly and easily without having to do these calculations yourself. To calculate your BMI in Croatian ([place] measurements, your health care provider will: [...] problems. ? BMI can be measured using Croatian measurements or metric measurements. ? To interpret [...] 07/20/2005 Document Revised: 10/21/2018 Document Reviewed: 09/21/2018 [employer] Patient Education ? 2020 [employer] Orthopedics Carpal Tunnel Syndrome Carpal tunnel [...] Having a job, such as being a svp digital sales or a cashier and waiter/waitress, that requires you to repeatedly move your [...] midd (more content not included)... Normal [facility] Physician Referralon 022 Physician Referral [id number] Normal [facility] Vital Signs Date Time Vital Sign Value Performing Clinician Ayad lozoya 02-28-2025 11:18-0400 Body mass index (BMI) [Ratio] 38.74 kg/m2 Gary Enriqueta DO Work Phone: [facility] 02-28-2025 11:18-0400 Body weight 105.6 kg Gary Enriqueta DO Work Phone: [facility] 02-28-2025 11:18-0400 Diastolic blood pressure 80 mm[Hg] Gary Enriqueta DO Work Phone: [facility] 02-28-2025 11:18-0400 Systolic blood pressure 120 mm[Hg] Gary Enriqueta DO Work Phone: [facility] 02-13-2025 08:58-0400 Body mass index (BMI) [Ratio] 38.11 kg/m2 Gary Enriqueta DO Work Phone: [facility] 02-13-2025 08:58-0400 Body weight 103.87 kg Gary Enriqueta DO Work Phone: [facility] 02-13-2025 08:58-0400 Diastolic blood pressure 74 mm[Hg] Gary Enriqueta DO Work Phone: [facility] 02-13-2025 08:58-0400 Systolic blood pressure 120 mm[Hg] Gary Enriqueta DO Work Phone: [facility] 01-16-2025 08:41-0500 Body mass index (BMI) [Ratio] 38.07 kg/m2 Gary Enriqueta DO Work Phone: [facility] 01-16-2025 08:41-0500 Body weight 103.78 kg Gayr Enriqueta DO Work Phone: [facility] 01-16-2025 08:41-0500 Diastolic blood pressure 70 mm[Hg] Gary Enriqueta DO Work Phone: [facility] 01-16-2025 08:41-0500 Systolic blood pressure 110 mm[Hg] Gary Enriqueta DO Work Phone: [facility] 12-19-2024 10:19-0500 Body mass index (BMI) [Ratio] 37.44 kg/m2 Gary Enriqueta DO Work Phone: [facility] 12-19-2024 10:19-0500 Body weight 102.06 kg Gary Enriqueta DO Work Phone: [facility] 12-19-2024 10:19-0500 Diastolic blood pressure 76 mm[Hg] Gary Enriqueta DO Work Phone: [facility] 12-19-2024 10:19-0500 Systolic blood pressure 122 mm[Hg] Gary Enriqueta DO Work Phone: [facility] 11-20-2024 09:42-0500 Body mass index (BMI) [Ratio] 36.61 kg/m2 Genevieve MARIA Work Phone: [facility] 11-20-2024 09:42-0500 Body weight 99.79 kg Genevieve MARIA Work Phone: [facility] 11-20-2024 09:42-0500 Diastolic blood pressure 74 mm[Hg] Genevieve MARIA Work Phone: [facility] 11-20-2024 09:42-0500 Systolic blood pressure 120 mm[Hg] Genevieve MARIA Work Phone: [facility] 10-17-2024 13:10-0500 Body mass index (BMI) [Ratio] 35.35 kg/m2 Gary Enriqueta DO Work Phone: [facility] 10-17-2024 13:10-0500 Body weight 96.34 kg Gary Enriqueta DO Work Phone: [facility] 10-17-2024 13:10-0500 Diastolic blood pressure 70 mm[Hg] Gary Enriqueta DO Work Phone: [facility] 10-17-2024 13:10-0500 Systolic blood pressure 120 mm[Hg] Gary Enriqueta DO Work Phone: [facility] 09-18-2024 11:15-0400 Body mass index (BMI) [Ratio] 35.2 kg/m2 Gary Enriqueta DO Work Phone: [facility] 09-18-2024 11:15-0400 Body weight 95.94 kg Gary Enriqueta DO Work Phone: [facility] 09-18-2024 11:15-0400 Diastolic blood pressure 74 mm[Hg] Gary Enriqueta DO Work Phone: [facility] 09-18-2024 11:15-0400 Systolic blood pressure 122 mm[Hg] Gary Enriqueta DO Work Phone: [facility] 08-18-2024 10:28-0400 Body mass index (BMI) [Ratio] 34.95 kg/m2 [facility] 08-18-2024 10:28-0400 Body weight 95.25 kg [facility] 01-10-2023 14:29-0500 Body height 165.1 cm Fei Canales MD Work Phone: [facility] 01-10-2023 14:29-0500 Body mass index (BMI) [Ratio] 34.35 kg/m2 Fei Canales MD Work Phone: [facility] 01-10-2023 14:29-0500 Body temperature 98.49 [degF] Fei Canales MD Work Phone: [address] 01-10-2023 14:29-0500 Body weight 93.62 kg Fei Canales MD Work Phone: [address] 01-10-2023 14:29-0500 Diastolic blood pressure 79 mm[Hg] Fei Canales MD Work Phone: [address] 01-10-2023 14:29-0500 Heart rate 75 /min Fei Canales MD Work Phone: [address] 01-10-2023 14:29-0500 Respiratory rate 16 /min Fei Canales MD Work Phone: [address] 01-10-2023 14:29-0500 SaO2% (BldA) [Mass fraction] 99 % Fei Canales MD Work Phone: [address] 01-10-2023 14:29-0500 Systolic blood pressure 140 mm[Hg] Fei Canales MD Work Phone: [address] 12-08-2022 11:51-0500 Blood Pressure Location Cordellsheriekwesi DAVIS [facility] 12-08-2022 11:51-0500 Body temperature 98.24 [degF] Keyon SUSAN [facility] 12-08-2022 11:51-0500 Diastolic blood pressure 78 mm[Hg] Keyon DAVIS [facility] 12-08-2022 11:51-0500 Heart rate 84 /min Keyon DAVIS [facility] 12-08-2022 11:51-0500 Respiratory rate 16 /min Keyon DAVIS [facility] 12-08-2022 11:51-0500 SaO2% (BldA) [Mass fraction] 100 % Keyon DAVIS [facility] 12-08-2022 11:51-0500 Systolic blood pressure 114 mm[Hg] Keyon DAVIS [facility] 12-04-2022 16:32-0500 Body mass index (BMI) [Ratio] 33.66 kg/m2 Jason Tracy MD Work Phone: [address] 12-04-2022 16:32-0500 Body temperature 98.49 [degF] Jason Tracy MD Work Phone: [address] 12-04-2022 16:32-0500 Body weight 91.76 kg Jason Tracy MD Work Phone: [address] 12-04-2022 16:32-0500 Diastolic blood pressure 75 mm[Hg] Jason Tracy MD Work Phone: [address] 12-04-2022 16:32-0500 Heart rate 91 /min Jason Tracy MD Work Phone: [address] 12-04-2022 16:32-0500 Respiratory rate 16 /min Jason Tracy MD Work Phone: [address] 12-04-2022 16:32-0500 SaO2% (BldA) [Mass fraction] 99 % Jason Tracy MD Work Phone: [address] 12-04-2022 16:32-0500 Systolic blood pressure 123 mm[Hg] Jason Tracy MD Work Phone: [address] 06-01-2022 12:50-0400 Blood Pressure Location Meena Carl [facility] 06-01-2022 12:50-0400 Body temperature 96.98 [degF] Meena Carl [facility] 06-01-2022 12:50-0400 Diastolic blood pressure 60 mm[Hg] Meena Carl [facility] 06-01-2022 12:50-0400 Heart rate 88 /min Meena Carl [facility] 06-01-2022 12:50-0400 SaO2% (BldA) [Mass fraction] 97 % Meena Carl [facility] 06-01-2022 12:50-0400 Systolic blood pressure 122 mm[Hg] Meena Carl [facility] 09-14-2021 10:15-0400 Body mass index (BMI) [Ratio] 31.62 kg/m2 Keyon Wilkinson MD Work Phone: [email or web address] Work Phone: 09-14-2021 10:15-0400 Body weight 86.18 kg Keyon Wilkinson MD Work Phone: [email or web address] Work Phone: 09-14-2021 10:14-0400 Body height 165.1 cm Keyon Wilkinson MD Work Phone: [email or web address] Work Phone: 09-14-2021 10:14-0400 Body temperature 98.2 [degF] Keyon Wilkinson MD Work Phone: [email or web address] Work Phone: 09-14-2021 10:14-0400 Diastolic blood pressure 93 mm[Hg] Keyon Wilkinson MD Work Phone: [email or web address] Work Phone: 09-14-2021 10:14-0400 Heart rate 91 /min Keyon Wilkinson MD Work Phone: [email or web address] Work Phone: 09-14-2021 10:14-0400 Respiratory rate 20 /min Keyon Wilkinson MD Work Phone: [email or web address] Work Phone: 09-14-2021 10:14-0400 SaO2% (BldA) [Mass fraction] 96 % Keyon Wilkinson MD Work Phone: [email or web address] Work Phone: 09-14-2021 10:14-0400 Systolic blood pressure 131 mm[Hg] Keyon Wilkinson MD Work Phone: [email or web address] Work Phone: Encounters Encounter Date Encounter Type Care Provider Facility Start: 02-28-2025 End: 02-28-2025 Office outpatient visit 15 minutes Gary Enriquetarafael LAMB Work Phone: [facility] Comment on above: 34 weeks gestation o f ; Third trimester ; Low platelet count (CMS/HCC); 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, antepartum; Excessive growth affecting management of , antepartum, single or unspecified fetus Start: 02-28-2025 End: 02-28-2025 ambulatory GARY ENRIQUETA Not Available Start: 02-27-2025 End: 02-27-2025 Clinisync Result Encounter Genevieve MARIA Work Phone: [facility] Unsolicited Start: 02-27-2025 End: 02-27-2025 Clinisync Result Encounter Genevieve MARIA Work Phone: [facility] Unsolicited Start: 02-20-2025 End: 02-20-2025 Clinisync Result Encounter Genevieve MARIA Work Phone: [facility] Unsolicited Start: 02-20-2025 End: 02-20-2025 Clinisync Result Encounter Genevieve Calderon PA Work Phone: [facility] Unsolicited Start: [...] Not Available Start: 01-29-2025 End: 01-29-2025 ambulatory JOHNGERARDO PARTIDA [facility] Start: 01-29-2025 End: 01-29-2025 Subsequent hospital [...] BARCENASO Not Available Start: 01-15-2025 End: 01-15-2025 [facility] Start: 01-15-2025 End: 01-15-2025 Subsequent hospital visit by physician John Partida DO Work Phone: [facility] Comment on above: Arrived Start: 01-12-2025 End: 01-12-2025 [facility] Start: 01-12-2025 End: 01-12-2025 Subsequent hospital visit by physician John Partida DO Work Phone: [facility] Comment on above: Arrived Start: 01-10-2025 End: 01-10-2025 [facility] Start: 01-10-2025 End: 01-10-2025 Subsequent hospital visit by physician John Partida DO Work Phone: [facility] Comment on above: Arrived Start: 01-05-2025 End: 01-05-2025 [facility] Start: 01-05-2025 End: 01-05-2025 Subsequent hospital visit by physician John Partida DO Work Phone: [facility] Comment on above: Arrived Start: 01-02-2025 End: 01-02-2025 [facility] Start: 01-02-2025 End: 01-02-2025 Subsequent hospital visit by physician John Partida DO Work Phone: [facility] Comment on above: Arrived Start: 12-29-2024 End: 12-29-2024 [facility] Start: 12-29-2024 End: 12-29-2024 Subsequent hospital visit by physician John Partida DO Work Phone: [facility] Comment on above: Arrived Start: 12-27-2024 End: 12-27-2024 [facility] Start: 12-27-2024 End: 12-27-2024 Subsequent hospital visit by physician John Partida DO Work Phone: [facility] Comment on above: Arrived Start: 12-25-2024 End: 12-25-2024 Clinisync Result Encounter Gary Enriqueta DO Work Phone: [facility] Unsolicited Start: 12-25-2024 End: 12-25-2024 Clinisync Result Encounter Gary Enriqueta DO Work Phone: [facility] Unsolicited Start: 12-22-2024 End: 12-22-2024 [facility] Start: 12-22-2024 End: 12-22-2024 Subsequent hospital visit by physician John Partida DO Work Phone: [facility] Comment on above: Arrived Start: 12-20-2024 End: 12-20-2024 [facility] Start: 12-20-2024 End: 12-20-2024 Subsequent [...] 15 minutes Gary Enriqueta DO Work Phone: [facility] Comment on above: Second trimester pre gnancy; 24 weeks gestation of ; Diabetes mellitus screening; Low platelet count (CMS/HCC); Thrombocytopenia affecting , antepartum (CMS/HCC); 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, antepartum Start: 12-19-2024 End: 12-19-2024 ambulatory GARY ROBISON Not Available Start: 12-15-2024 End: 12-15-2024 [facility] Start: 12-13-2024 End: 12-13-2024 [facility] Start: 12-13-2024 End: 12-13-2024 Subsequent hospital visit by physician John Partida DO Work Phone: [facility] Comment on above: Arrived Start: 12-06-2024 End: 12-06-2024 [facility] Start: 12-06-2024 End: 12-06-2024 Subsequent hospital visit by physician John Partida DO Work Phone: [facility] Comment on above: Arrived Start: 11-20-2024 End: 11-20-2024 Bamboo flowsheet Genevieve MARIA Work Phone: [facility] Start: 11-20-2024 End: 11-20-2024 Bamboo flowsheet Genevieve MARIA Work Phone: [facility] Start: 11-20-2024 End: 11-20-2024 ambulatory GENEVIEVE CALDERON Not Available Start: 11-20-2024 End: 11-20-2024 Office outpatient visit 15 minutes Genevieve MARIA Work Phone: [facility] Comment on above: Second trimester [...] encounter status Gary Robison DO Work Phone: [facility] Start: 10-12-2024 End: 10-12-2024 [facility] Start: 10-12-2024 End: 10-12-2024 Subsequent hospital visit by physician John Partida DO Work Phone: [facility] Comment on above: Arrived Start: 10-10-2024 End: 10-10-2024 [facility] Start: 10-10-2024 End: 10-10-2024 Subsequent hospital visit by physician John Partida DO Work Phone: [facility] Comment on above: Arrived Start: 10-04-2024 End: 10-04-2024 Subsequent hospital visit by physician John Partida DO Work Phone: [facility] Start: 10-04-2024 [facility] Start: 09-18-2024 End: 09-18-2024 Office [...] Department Unsolicited Start: 08-07-2024 End: 08-07-2024 ambulatory GARYMallorie AGUILAR [facility] Start: 08-07-2024 End: 08-07-2024 Subsequent hospital visit by physician Óscar Nassar DNP Work Phone: [email or web address] Start: 08-02-2024 End: 08-02-2024 Clinisync Result Encounter Gary Enriqueta DO Work Phone: [facility] Unsolicited Start: 08-02-2024 End: 08-02-2024 Clinisync Result Encounter Gary Enriqueta DO Work Phone: [facility] Unsolicited Start: 08-02-2024 End: 08-02-2024 ambulatory ÓSCARSCARLETT NASSAR [facility] Start: 07-31-2024 End: 07-31-2024 Clinisync Result Encounter Gary Enriqueta DO Work Phone: [facility] Unsolicited Start: 07-31-2024 End: 07-31-2024 Clinisync Result Encounter Gary Enriqueta DO Work Phone: [facility] Unsolicited Start: 07-31-2024 End: 07-31-2024 [facility] Start: 07-31-2024 End: 07-31-2024 Subsequent hospital visit by physician Óscar Nassar DNP Work Phone: [facility] Start: 07-29-2024 End: 07-29-2024 Clinisync Result Encounter Gary Enriqueta DO Work Phone: [facility] Unsolicited Start: 07-29-2024 End: 07-29-2024 Clinisync Result Encounter Gary Enriqueta DO Work Phone: [facility] Unsolicited Start: 07-29-2024 End: 07-29-2024 [facility] Start: 07-27-2024 End: 07-27-2024 Clinisync Result Encounter Gary Enriqueta DO Work Phone: [facility] Unsolicited Start: 07-27-2024 End: 07-27-2024 Clinisync Result Encounter Gary Enriqueta DO Work Phone: [facility] Unsolicited Start: 07-27-2024 End: 07-27-2024 [facility] Start: 07-27-2024 End: 07-27-2024 Subsequent hospital visit by physician John Partida DO Work Phone: [facility] Comment on above: Arrived Start: 07-25-2024 End: 07-25-2024 [facility] Start: 07-21-2024 End: 07-21-2024 [facility] Start: 07-19-2024 End: 07-19-2024 [facility] Start: 07-13-2024 End: 07-13-2024 Subsequent hospital visit by physician John Partida DO Work Phone: [facility] Comment on above: Arrived Start: 07-13-2024 End: 07-13-2024 ambulatory [facility] Start: 07-06-2024 End: 07-06-2024 Subsequent hospital visit by physician John Partida DO Work Phone: [facility] Start: 06-29-2024 End: 06-29-2024 ambulatory [facility] Start: 06-29-2024 End: 06-29-2024 Subsequent hospital visit by physician John Partida DO Work Phone: [facility] Comment on above: Arrived Start: 06-26-2024 End: 06-26-2024 [facility] Start: 06-22-2024 End: 06-22-2024 [facility] Start: 06-20-2024 End: 06-20-2024 [facility] Start: 06-16-2024 End: 06-16-2024 [facility] Start: 06-14-2024 End: 06-14-2024 [facility] Start: 06-08-2024 End: 06-08-2024 ambulatory ÓSCAR NASSAR [facility] Start: 06-08-2024 End: 06-08-2024 [facility] Start: 05-22-2024 End: 05-24-2024 ambulatory [facility] Start: 05-22-2024 End: 05-24-2024 Subsequent hospital visit by physician Óscar Nassar DNP Work Phone: [facility] Start: 03-06-2024 End: 03-06-2024 ambulatory GARY ROBISON Not Available Start: 03-04-2024 End: 03-04-2024 [facility] Start: 03-04-2024 [facility] Start: 04-09-[address] NONE LISTED REQUEST Facility: Start: 01-29-2023 End: 01-31-2023 Subsequent hospital visit by physician Betito Additional [facility] Comment on above: Other closed fractur e of proximal end of right fibula with routine healing, subsequent encounter Start: 01-29-2023 End: 01-31-2023 Subsequent hospital visit by physician Keyon Davis MD Work Phone: [facility] Start: 01-10-2023 End: 01-10-2023 Emergency department patient visit Fei Canales MD Work Phone: [facility] Comment on above: Injury of right ankl e, initial encounter (Primary Dx) Start: 12-08-2022 End: 12-09-2022 [facility]ulatory [facility] Start: 12-08-2022 End: 12-08-2022 Patient encounter procedure Keyon DAVIS [facility] [place] Start: 12-04-2022 End: 12-04-2022 Emergency department patient visit Jason Tracy MD Work Phone: [facility] Comment on above: Viral illness (Prima ry Dx) Start: 09-03-2022 End: 09-03-2022 Emergency department patient visit Evan Moyer Facility:[facility] Start: 06-19-2022 End: 06-21-2022 Subsequent hospital visit by physician Betito Additional Xray [facility] Comment on above: Left wrist pain Start: 06-01-2022 End: 06-02-2022 ambulatory WORT EXTRACTOR Meena Carl Facility:[facility] Start: 06-01-2022 End: 06-01-2022 Patient encounter procedure Meena Carl [facility] Start: 05-28-2022 ambulatory WORT EXTRACTOR Meena Carl Faci lity:[facility] Start: 09-14-2021 End: 09-14-2021 Emergency department patient visit Keyon Wilkinson MD Work Phone: [facility] Comment on above: Subacute bronchitis (Primary Dx) Procedures Date Procedure Procedure Detail Performing Clinician Start: 02-28-2025 Urnls dip stick/tabl et rgnt non-auto w/o micrscp Gary Enriqueta DO Work Phone: Start: 02-27-2025 US OB BPP W NON-STRESS Genevieve MARIA Work Phone: Start: 02-20-2025 US OB BPP W NON-STRESS [...] dip stick/tabl et rgnt non-auto w/o micrscp Gray Enriqueta DO Work Phone: Start: 12-25-2024 ALL [...] 60 yrs+ (1 - 1-dose 75+ series) [facility] Start: 2054 Respiratory Syncytia l Virus (RSV) or age 60 yrs+ (1 - 1-dose 60+ series) Respiratory Syncytial Virus (RSV) or age 60 yrs+ (1 - 1-dose 60+ series) [facility] Start: 05-26-2028 Screening for malign ant neoplasm of cervix HPV/Cotest [facility] Start: 10-17-2027 Screening for malign ant neoplasm of cervix [facility] Start: 07-23-2025 Influenza vaccination Influenz a Vaccine (Season Ended) [facility] Start: 03-19-2025 End: 03-19-2025 Patient encounter procedure 03/19/2025 8:30 AM EDT Routine [facility] [address] [place] [address] [place] [address] Gayr Robison DO [address] [place] [address] [facility] Start: 03-19-2025 End: 03-19-2025 Professional / ancillary services management 03/19/2025 8:00 AM EDT Ancillary Procedure [facility] [address] [facility] [place] [address] [facility] Start: 03-14-2025 Depression Screen Depression Screen [facility] Start: 02-28-2025 End: 06-30-2025 US for US OB follow up transabdominal approach Imaging Routine Excessive growth affecting management of , antepartum, single or unspecified fetus Expected: 02/28/2025, Expires: 06/30/2025 [facility] Comment on above: Expected: 02/28/2025 , Expires: 06/30/2025 Start: 02-28-2025 End: 02-28-2025 Patient encounter procedure 02/28/2025 11:10 AM EDT Routine [facility] [address] [facility] [place] [address] Gary Robison, [address] [facility] [place] [address] [facility] Start: 02-28-2025 End: 02-28-2025 Professional / ancillary services management 02/28/2025 10:30 AM EDT Ancillary Procedure [facility] [address] [place] [id number] [facility] Start: 02-14-2025 End: 02-14-2025 Patient encounter procedure 02/14/2025 9:00 AM EDT Appointment [facility] [address] [place] [address] John Partida, DO [address] [place] [address] Clara Castrejon, PT *[employer] 15 [...] procedure 01/30/2025 8:50 AM EDT Routine [facility] [address] [place] [address] Genevieve Calderon PA [address] [facility] [place] [address] [facility] Start: 01-29-2025 End: 01-29-2025 Patient encounter procedure 01/29/2025 9:00 AM EDT Appointment [facility] [address] [place] [address] John Partida, DO [address] [place] [address] Clara Castrejon, PT *[employer] 15 of 30 Sacral Pain, [facility] Comment on above: *[employer] 15 of 30 Sacral Pain, Start: 01-18-2025 End: 01-18-2025 Patient encounter procedure 01/18/2025 8:00 AM EST Appointment [facility] [address] [place] [address] John Partida, DO [address] [place] [address] Clara Castrejon, PT *[employer] 14 of 30 Sacral Pain, [facility] Comment on above: *[employer]ource 14 of 30 Sacral Pain, Start: 01-16-2025 End: 01-16-2025 Patient encounter procedure [facility] Comment on above: Arrived Start: 01-16-2025 End: 01-16-2025 Professional / ancillary services management 01/16/2025 8:00 AM EST Ancillary Procedure [facility] [address] [facility] [place] [address] [facility] Start: 01-15-2025 End: 01-15-2025 Patient encounter procedure 01/15/2025 9:00 AM EST Appointment [facility] [address] [place] [address] John Partida, [address] [place] [address] Clara Castrejon, PT *[employer] 13 of 30 [...] Encounter [facility] [address] [place] [address] John Partida, [address] [place] [address] Lauryn Edwards [facility] Start: 01-02-2025 End: 01-02-2025 Patient encounter procedure 01/02/2025 8:00 AM EST Appointment [facility] [address] [place] [address] John Partida, DO [address] [facility] [place] [address] Clara Castrejon, PT *[employer] 8 of 30 Sacral Pain, [facility] Comment on above: *[employer]ource 8 of 30 Sacral Pain, Start: 12-29-2024 End: 12-29-2024 Patient encounter procedure 12/29/2024 11:15 AM EST Appointment [facility] [address] [place] [address] John Partida, DO [address] [facility] [place] [address] Clara Castrejon, PT *[employer] 7 of 30 Sacral Pain, [facility] Comment on above: *[employer]ource 7 of 30 Sacral Pain, Start: 12-27-2024 End: 12-27-2024 Patient encounter procedure 12/27/2024 9:00 AM EST Appointment [facility] [address] [place] [address] John Partida, DO [address] [facility] [place] [address] Austen Puga PTA *[employer] 6 of 30 Sacral Pain, [facility] Comment on above: *[employer]ource 6 of 30 Sacral Pain, Start: 12-22-2024 End: 12-22-2024 Patient encounter procedure 12/22/2024 8:00 AM EST Appointment [facility] [address] [place] [address] John Partida, DO [address] [place] [address] Austen Puga STATION EXAMINER *[employer] 5 of 30 Sacral Pain, [facility] Comment on above: *[employer]ource 5 of 30 Sacral Pain, Start: 12-20-2024 End: 12-20-2024 Patient encounter procedure 12/20/2024 9:00 AM EST Appointment [facility] [address] [place] [address] John Partida, DO [address] [place] [address] Clara Castrejon, PT *[employer] 4 of 30 Sacral Pain, [facility] Comment on above: *Caresource 4 of 30 Sacral Pain, Start: 12-19-2024 End: 12-19-2024 Patient encounter procedure 12/19/2024 9:50 AM EST Routine [facility] [address] [facility] [place] [address] Gary Robison DO [address] [place] [address] [facility] Start: 12-15-2024 End: 12-15-2024 Patient encounter procedure 12/15/2024 8:15 AM EST Appointment [facility] [address] [place] [address] John aPrtida, DO [address] [facility] [place] [address] Clara Castrejon, PT *[employer] 3 of 30 Sacral Pain, [facility] Comment on above: *Caresource 3 of 30 Sacral Pain, Start: 12-13-2024 End: 12-13-2024 Patient encounter procedure 12/13/2024 9:45 AM EST Appointment [facility] [address] [place] [address] John Partida, DO [address] [facility] [place] [address] Trinity Browning *[employer]ource 2 of 30 Sacral Pain, [facility] Comment on above: *Caresource 2 of 30 Sacral Pain, Start: 2024 Screening for malign ant neoplasm of cervix [facility] Start: 11-20-2024 End: 11-20-2025 CBC [...] mellitus screening Expected: 11/20/2024 (Approximate), Expires: 11/20/2025 [facility] Comment on above: Expected: 11/20/2024 (Approximate), Expires: 11/20/2025 Start: 11-20-2024 End: 11-20-2024 Patient encounter procedure 11/20/2024 9:20 AM EST Routine [facility] [address] [facility] [place] [phone] Genevieve Calderon PA [address] [place], [place] [id number] [facility] Start: 11-20-2024 End: 11-20-2024 Professional / ancillary services management 11/20/2024 8:00 AM EST Ancillary Procedure [facility] [address] [facility] [place] [address] [facility] Start: 10-17-2024 End: [...] AM EST Routine [facility] [address] [place] [address] Gary Robison DO [address] [facility] [place] [address] [facility] Start: 10-17-2024 End: 10-17-2024 Patient encounter procedure 10/17/2024 8:15 AM EST Appointment [facility] [address] [place] [address] John Partida, DO [address] [place] [address] Trinity Browning 16 of 30 Sacral Pain, [facility] Comment on above: 16 of 30 Sacral Pain , Start: 10-12-2024 End: 10-12-2024 Patient encounter procedure 10/12/2024 8:00 AM EST Appointment [facility] [address] [place] [address] John Partida, DO [address] [place] [address] Clara Castrejon, PT 15 of 30 Sacral Pain, [facility] Comment on above: 15 of 30 Sacral Pain , Start: 10-10-2024 End: 10-10-2024 Patient encounter procedure 10/10/2024 9:30 AM EST Appointment [facility] [address] [place] [address] John Partida, DO [address] [place] [address] Clara Castrejon, PT 14 of 30 Sacral Pain, [facility] Comment on above: 14 of 30 Sacral Pain , Start: 09-18-2024 End: 09-18-2024 Patient encounter procedure 09/18/2024 10:40 AM EDT Routine [facility] [address] [facility] [place] [id number] Gary Robison DO [address] [facility] [place] [address] [facility] Start: 08-18-2024 End: 08-18-2025 ABO/Rh ABO/Rh Lab Routine Missed menses , unspecified gestational age Expected: 08/18/2024 (Approximate), Expires: 08/18/2025 [facility] Comment on above: Expected: 08/18/2024 (Approximate), Expires: 08/18/2025 Start: 08-18-2024 End: 08-18-2025 Blood type and Indirect antibody screen panel - Blood Type and screen Lab Routine Missed menses , unspecified gestational age Expected: 08/18/2024 (Approximate), Expires: 08/18/2025 [facility] Work Phone: Comment on above: Expected: 08/18/2024 (Approximate), Expires: 08/18/2025 Start: 08-18-2024 End: 08-18-2025 Drugs of abuse panel - Urine by Screen method Rapid drug screen, urine Lab Routine , unspecified gestational age Encounter for supervision of normal first in first trimester Expected: 08/18/2024 (Approximate), Expires: 08/18/2025 [facility] Comment on above: Expected: 08/18/2024 (Approximate), Expires: 08/18/2025 Start: 08-18-2024 End: 08-18-2025 US Pelvis transvaginal US OB transvaginal Imaging Routine Missed menses Expected: 08/18/2024 (Approximate), Expires: 08/18/2025 [facility] Comment on above: Expected: 08/18/2024 (Approximate), Expires: 08/18/2025 Start: 08-18-2024 End: 08-18-2024 ambulatory 08/18/2024 9:30 AM EDT Initial [facility] [address] [facility] [place] [address] [facility] Start: 08-18-2024 End: 08-18-2024 Professional / ancillary services management 08/18/2024 9:00 AM EDT Ancillary Procedure [facility] [address] [place] [address] [facility] Start: 07-23-2024 COVID-19 Vaccine ( season) COVID-19 Vaccine ( season) [facility] Start: 07-23-2024 COVID-19 Vaccine ( season) COVID-19 Vaccine ( season) [facility] Start: 07-23-2024 Influenza vaccination Influenza Vacc ine (#1) [facility] Start: 07-19-2024 End: 07-19-2024 Patient encounter procedure 07/19/2024 8:00 AM EDT Appointment [facility] [address] [place] [id number] John Partida DO [address] [place] [address] Asia Mix, PT [address] [place] [id number] [facility] Start: 07-13-2024 End: 07-13-2024 Patient encounter procedure [facility] Start: 07-06-2024 End: 07-06-2024 Patient encounter procedure 07/06/2024 9:00 AM EDT Appointment [facility] [address] [place] [address] John Partida, DO [address] [place] [address] Asia Mix PT [address] [place] [address] [facility] Start: 06-22-2024 Influenza vaccination Flu vaccine (# 1) [facility] Start: 07-23-2023 COVID-19 Vaccine ( season) COVID-19 Vaccine ( season) [facility] Start: 07-23-2022 Influenza vaccination Flu vaccine (# 1) [facility] Start: 06-22-2022 Influenza vaccination Flu vaccine (# 1) [facility] Start: 07-23-2021 Influenza vaccination Flu vaccine (# 1) [facility] Phone: Start: 08-02-2017 DTaP/Tdap/Td vaccine (2 - Td or Tdap) DTaP/Tdap/Td vaccine (2 - Td or Tdap) [facility] Start: 2015 Screening for malign ant neoplasm of cervix Pap smear [facility] Start: 2013 DTaP/Tdap/Td vaccine (1 - Tdap) DTaP/Tdap/Td vaccine (1 - Tdap) [facility] Phone: Start: 2013 Hepatitis B vaccine (1 of 3 - 19+ 3-dose series) Hepatitis B vaccine (1 of 3 - 19+ 3-dose series) [facility] Start: 2012 Hepatitis C screening Hepatitis C sc reen [facility] Start: 2009 HIV screening HIV screen [facility] Start: 2006 COVID-19 Vaccine (1) COVID-19 Vaccin e (1) [facility]: Start: 2006 Depression Screen Depression Screen [facility] Start: 2005 HPV vaccine (1 - 2-d ose series) HPV vaccine (1 - 2-dose series) [facility] Phone: Start: 1998 Varicella vaccine (2 of 2 - 2-dose childhood series) Varicella vaccine (2 of 2 - 2-dose childhood series) [address] Start: 1995 Varicella vaccine (1 of 2 - 2-dose childhood series) Varicella vaccine (1 of 2 - 2-dose childhood series) [facility] Phone: Start: 05-30-1995 COVID-19 Vaccine (#1) COVID-19 Vacci ne (#1) [facility] Start: 1994 Hepatitis B vaccine (1 of 3 - 3-dose series) Hepatitis B vaccine (1 of 3 - 3-dose series) [facility] Start: 1994 Hepatitis C screening Hepatitis C sc mary [facility] Phone: Bacteria identified in Urine by Culture Urine culture Microbiology Routine Missed menses Ordered: 08/18/2024 [facility] Comment on above: Ordered: 08/18/2024 CBC W Auto Different ial panel - Blood CBC and differential Lab Routine Missed menses , unspecified gestational age Ordered: 08/18/2024 [facility] Comment on above: Ordered: 08/18/2024 CHLAMYDIA TRACHOMATI S (GENITO/STI) CHLAMYDIA TRACHOMATIS (GENITO/STI) Lab Routine Vaginal discharge STD exposure Ordered: 10/17/2024 [facility] Comment on above: Ordered: 10/17/2024 Cytology Cervical or vaginal smear or scraping study Pap Smear Pathology and Cytology Routine Encounter for gynecological examination without abnormal finding Ordered: 10/17/2024 [facility] Comment on above: Ordered: 10/17/2024 Hemoglobin A1c/Hemoglobin.total in Blood Hemoglobin A1c Lab Routine Missed menses , unspecified gestational age Ordered: 08/18/2024 [facility] Comment on above: Ordered: 08/18/2024 Hepatitis B virus surface Ag [Presence] in Serum or Plasma by Immunoassay Hepatitis B surface antigen Lab Routine Missed menses , unspecified gestational age Ordered: 08/18/2024 [facility] Comment on above: Ordered: 08/18/2024 Hepatitis C virus Ab [Presence] in Serum or Plasma by Immunoassay Hepatitis C antibody Lab Routine Missed menses , unspecified gestational age Ordered: 08/18/2024 [facility] Comment on above: Ordered: 08/18/2024 HIV-1/HIV-2 antigen/antibody combination immunoassay HIV-1 and HIV-2 antibodies Lab Routine Missed menses , unspecified gestational age Ordered: 08/18/2024 [facility] Comment on above: Ordered: 08/18/2024 Neisseria gonorrhoea e DNA [Presence] in Unspecified specimen by WADE with probe detection Neisseria gonorrhea DNA probe, direct Lab Routine Vaginal discharge STD exposure Ordered: 10/17/2024 [facility] Comment on above: Ordered: 10/17/2024 Platelets [#/volume] in Blood Platelet count Lab Routine Low platelet count ([facility]) Ordered: 12/19/2024 [facility] Work Phone: Comment on above: Ordered: 12/19/2024 Platelets [#/volume] in Blood Platelet count Lab Routine Low platelet count ([facility]) Ordered: 02/28/2025 [facility] Work Phone: Comment on above: Ordered: 02/28/2025 Reagin Ab [Presence] in Serum by RPR RPR Lab Routine Missed menses , unspecified gestational age Ordered: 08/18/2024 [facility] Comment on above: Ordered: 08/18/2024 Rubella antibody, IgG Rubella an tibody, IgG Lab Routine Missed menses , unspecified gestational age Ordered: 08/18/2024 [facility] Comment on above: Ordered: 08/18/2024 SURESWAB(R) ADVANCED VAGINITIS PLUS, TMA SURESWAB(R) ADVANCED VAGINITIS PLUS, TMA Pathology and Cytology Routine Vaginal discharge STD exposure Ordered: 10/17/2024 [facility] Comment on above: Ordered: 10/17/2024 Immunizations Immunization Date Immunization Notes Care Provider Jaci masetrson 02-16-2008 Hep A, unspecified formulation Meena Carl [facility] 08-02-2007 Hep A, unspecified formulation Meena Carl [facility] 08-02-2007 meningococcal ACWY vaccine, unspecified formulation Meena Carl [facility] 08-02-2007 tetanus toxoid, reduced diphtheria toxoid, and acellular pertussis vaccine, adsorbed Meena Carl [facility] 08-19-2000 DTaP, unspecified formulation Meena Carl [facility] 08-19-2000 measles, mumps and rubella virus vaccine Meena Carl [facility] 10-10-1997 varicella virus vaccine Meena Carl [facility] 03-09-1996 DTaP, unspecified formulation Meena Carl [facility] 03-09-1996 Hib, unspecified formulation Meena Carl [facility] 03-09-1996 measles, mumps and rubella virus vaccine Meena Carl [facility] 06-11-1995 DTP-Hib Meena Carl [facility] 06-11-1995 hepatitis B vaccine, pediatric or pediatric/adolescent dosage Meena Carl [facility] 04-05-1995 DTP-Hib Meena Carl [facility] 02-01-1995 DTP-Hib Meena Carl [facility] 01-04-1995 hepatitis B vaccine, pediatric or pediatric/adolescent dosage Meena Carl [facility] 1994 hepatitis B vaccine, pediatric or pediatric/adolescent dosage Meena Carl [facility] NEGATED: Highlighted row has not occurred!12-08-2022 influenza virus vaccine, unspecified formulation Keyon DAVIS [facility] NEGATED: Highlighted row has not occurred!12-08-2022 SARS-CoV-2 mRNA (tozinameran 5y-11y) vaccine Keyon DAVIS [facility] Payers Date Payer Category Payer Medicaid [employer] [place] [id number] 2022-Present [address] [place] [id number] 2022 Private Health Insurance [facility] [id number] 2014 Unknown [id number] 1.2.840.171833.1.13.239.2. 7.3.503106.315 1994 Unknown [id number] 2.16.840.1.221441.3.579.2. 727 1994 Unknown [id number] 2.16.840.1.274417.3.579.2. 727 1994 Unknown [id number] 2.16.840.1.497739.3.579.2. 727 1994 Unknown [id number] 2.16.840.1.014188.3.579.2. 727 1994 Unknown [id number] 2.16.840.1.578072.3.579.2. 593 1994 Unknown [id number] 2.16.840.1.442806.3.579.2. 174 1994 Unknown [id number] 2.16.840.1.265957.3.579.2. 174 1994 Unknown [id number] 2.16.840.1.714503.3.579.2. 174 1994 Unknown [id number] 2.16.840.1.200541.3.579.2. 174 1994 Unknown [id number] 2.16.840.1.366405.3.579.2. 174 1994 Unknown [id number] 2.16.840.1.997232.3.579.2. 174 1994 Unknown [id number] 2.16.840.1.580923.3.579.2. 174 1994 Unknown [id number] 2.16.840.1.106076.3.579.2. 174 1994 Unknown [id number] 2.16.840.1.574683.3.579.2. 174 1994 Unknown [id number] 2.16.840.1.221943.3.579.2. 174 1994 Unknown [id number] 2.16.840.1.998533.3.579.2. 174 1994 Unknown [id number] 2.16.840.1.224887.3.579.2. 174 1994 Unknown [id number] 2.16.840.1.311866.3.579.2. 174 1994 Unknown [id number] 2.16.840.1.455029.3.579.2. 174 1994 Unknown [id number] 2.16.840.1.043582.3.579.2. 174 1994 Unknown [id number] 2.16.840.1.727071.3.579.2. 174 1994 Unknown [id number] 2.16.840.1.656311.3.579.2. 174 1994 Unknown [id number] 2.16.840.1.345147.3.579.2. 174 1994 Unknown [id number] 2.16.840.1.420376.3.579.2. 174 1994 Unknown [id number] 2.16.840.1.986419.3.579.2. 174 1994 Unknown [id number] 2.16.840.1.799995.3.579.2. 174 1994 Unknown [id number] 2.16.840.1.650127.3.579.2. 174 1994 Unknown [id number] 2.16.840.1.643309.3.579.2. 174 1994 Unknown [id number] 2.16.840.1.846313.3.579.2. 174 1994 Unknown [id number] 2.16.840.1.097966.3.579.2. 174 1995 Unknown [id number] 2.16.840.1.598207.3.579.2. 174 1995 Unknown [id number] 2.16.840.1.904736.3.579.2. 174 1994 Unknown [id number] 2.16.840.1.036665.3.579.2. 174 1994 Unknown [id number] 2.16.840.1.428329.3.579.2. 174 1994 Unknown [id number] 2.16.840.1.596801.3.579.2. 174 1994 Unknown [id number] 2.16.840.1.979868.3.579.2. 174 1994 Unknown [id number] 2.16.840.1.806513.3.579.2. 174 1994 Unknown [id number] 2.16.840.1.012169.3.579.2. 174 1994 Unknown [id number] 2.16.840.1.511195.3.579.2. 174 1994 Unknown [id number] 2.16.840.1.088369.3.579.2. 174 1994 Unknown [id number] 2.16.840.1.994887.3.579.2. 174 1994 Unknown [id number] 2.16.840.1.755218.3.579.2. 174 1994 Unknown [id number] 2.16.840.1.178945.3.579.2. 174 1994 Unknown [id number] 2.16.840.1.547389.3.579.2. 174 1994 Unknown [id number] 2.16.840.1.893466.3.579.2. 174 1994 Unknown [id number] 2.16.840.1.409429.3.579.2. 1259 1994 Unknown [id number] 2.16.840.1.136478.3.579.2. 1259 1994 Unknown [id number] 2.16.840.1.070523.3.579.2. 1259 1994 Unknown [id number] 2.16.840.1.926503.3.579.2. 1259 1994 Unknown [id number] 2.16.840.1.266311.3.579.2. 9 1994 Unknown [id number] 2.16.840.1.563187.3.579.2. 1259 1994 Unknown [id number] 2.16.840.1.240839.3.579.2. 9 1994 Unknown [id number] 2.16.840.1.793045.3.579.2. 9 1994 Unknown [id number] 2.16.840.1.001022.3.579.2. 9 1994 Unknown [id number] 2.16.840.1.949173.3.579.2. 1259 1959 Unknown [id number] 1.2.840.679921.1.13.239.2. 7.3.763572.315 Social History Date Type Detail Facility Start: 09-14-2021 End: 09-18-2024 Tobacco smoking status [facility] Never smoker [email or web address] Work Phone: Start: 09-14-2021 End: 09-18-2024 Tobacco use and exposure Never used [email or web address] Start: 09-14-2021 End: 08-21-2024 Alcohol intake Current non-drinker of alcohol (finding) [email or web address] Work Phone: Start: 1995 Sex Assigned At Not on file [email or web address] Work Phone: Start: 11-24-2022 End: 01-10-2023 Exposure to SARS-CoV-2 (event) Not sure [email or web address] Tobacco smoking status Never [facility] Start: 07-19-2023 End: 02-07-2025 Sex Assigned At Female [facility] Start: 12-04-2022 End: 01-10-2023 History SDOH Alcohol Frequency [address] Work Phone: Start: 07-19-2023 End: 02-07-2025 History of Social function [address] How often to you hav e a drink containing alcohol? Never [address] (I/We) worried wheth er (my/our) food would run out before (I/we) got money to buy more. Never true [address] At any time in the p ast 12 months, were you homeless or living in fdc [including now]? No [address] Start: 1995 Sex Assigned At Female [address] Start: 07-19-2023 Gender identity Identifies as female gender (finding) [address] Start: 07-19-2023 Sexual orientation Heterosexual (finding) [address] Start: 07-16-2024 [facility] Start: 09-18-2024 End: 02-28-2025 Alcoholic beverage intake Lifetime non-drinker (finding) [facility] Start: 01-03-2013 Sex Female (finding) [email or web address] Functional Status Date Assessment Result Facility 12-08-2022 Functional Status N/A [facility] Kim 06-01-2022 Functional Status N/A [facility] Clinical Notes 06-01-2022 to 02-28-2025 Marlene Olea LPN - 02/28/2025 11:10 AM Clara Seals, PT - 02/14/2025 9:00 AM Chata Olea LPN - 02/13/2025 9:00 AM Clara Seals, PT - 01/29/2025 9:00 AM EDTDischarge Instructions Note Date & Type Note Facility 02-28-2025 History of Present illness Narrative Reason for Appointment: Patient ID: Meena Lucero is a 29 y.o. female who presents for Routine Visit Patient presents today for Return OB appointment. MEDICATIONS Current Outpatient Medications Medication Instructions ondansetron ODT (ZOFRAN-ODT) 4 mg, Every 8 hours PRN pantoprazole (PROTONIX) 40 mg, Oral, Daily before breakfast, Do not crush, chew, or split. 27-1 MG tablet Every 24 hours promethazine (PHENERGAN) 12.5 mg, Every 6 hours PRN ALLERGIES Allergies Allergen Reactions Hydrocodone Codeine Rash [...] nursing note reviewed. Exam conducted with a baggage porter head present. Vitals: Estimated body mass index is 38.74 kg/m as calculated from the following: Height as of 04/09/23: 5' 5 . Weight as of this encounter: 232 lb 12.8 oz. BP: 120/80 Patient's last menstrual period was 06/23/2024. ASSESSMENT & PLAN ICD-10-CM 1. 34 weeks gestation of Z3A.34 POCT urinalysis dipstick manually resulted 2. Third trimester Z34.93 POCT urinalysis dipstick manually resulted 3. Low platelet count (CMS/HCC) D69.6 Platelet count 4. 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, antepartum O43.112 5. Excessive growth affecting management of , antepartum, single or unspecified fetus O36.60X0 US OB follow up transabdominal approach Return OB: Patient presents today for a routine obstetrics appointment. Patient is currently 34w3d . Patient states she is doing well but has complaints of being tired due to current . Patient has verbalizes frequent movement. labor precautions was discussed/given and patient was instructed to perform kick counts three times a day. Given repeat platelet order to have obtained. Pt given growth ultrasound to have on 03/16/25 or 03/19/25. Pt states has been hard- worried about mental health after delivery- pt denies suicidal and homicidal ideations. Discussed celexa. Orders Placed This Encounter Procedures US OB follow up transabdominal approach Platelet count POCT urinalysis dipstick manually resulted Follow Up: Patient is to return to office in 2 week for routine OB appointment. Documented by Marlene Olea LPN on behalf of: Gary Robison DO documented in this encounter [facility] 02-14-2025 History of Present illness Narrative [facility] Date: 02/14/2025 Patient Name: Meena Lucero : 1995 Pt No Showed Appt- Follow up call, left voicemail for patient to call back to reschedule if wants. Clara Castrejon, JASPER Date: 02/14/2025 documented in this encounter [facility] 02-13-2025 History of Present illness Narrative Reason [...] nursing note reviewed. Exam conducted with a baggage porter head present. Vitals: Estimated body mass index is [...] Gary Robison DO documented in this encounter [facility] 01-29-2025 History of Present illness Narrative Images from the original note were not included. [facility] Daily Note Date: 01/29/2025 Patient Name: Meena Lucero : 1995 (29 y.o.) Referring Provider (secondary): Dr. Partida Diagnosis: R buttock pain, sacral pain Treatment Diagnosis: back pain, SI pain Onset Date: 09/28/24 (Referral) PT Insurance Information: [facility] Total # of Visits Approved: 16 [...] pelvic stability-Met STG Goal 3 Status:: Met Mcfp Goals Time Frame for Mcfp Goals : 16 Mcfp Goal 1: Improve functional mobility with Oswestry score <15/50 (from 22/50) Mcfp Goal 2: Decrease R SI pain 4/10 at worst x3 days Treatment Tolerance: Treatment Tolerance: Tolerated treatment well. Post Treatment Pain: 4/10 Time In: 9:00 Time Out : 9:33 Timed Code Treatment Minutes: 33 Minutes Total Treatment Time: 33 Minutes Clara Castrejon, JASPER Date: 01/29/2025 documented in this encounter [facility] 01-16-2025 History of Present illness Narrative Reason [...] nursing note reviewed. Exam conducted with a baggage porter head present. Vitals: Estimated body mass index is [...] Gary Robison DO documented in this encounter [facility] 01-15-2025 History of Present illness Narrative Images from the original note were not included. [facility] Daily Note Date: 01/15/2025 Patient Name: Meena Lucero : 1995 (29 y.o.) Referring Provider (secondary): Dr. Partida Diagnosis: R buttock pain, sacral pain Treatment Diagnosis: back pain, SI pain Onset Date: 09/28/24 (Referral) PT Insurance Information: [facility] Total # of Visits Approved: 16 [...] pelvic stability-Met STG Goal 3 Status:: Met Sheet Rock Taper Goals Time Frame for Mcfp Goals : 16 Mcfp Goal 1: Improve functional mobility with Oswestry score <15/50 (from 22/50) Sheet Rock Taper Goal 2: Decrease R SI pain 4/10 at worst x3 days Treatment Tolerance: Treatment Tolerance: Tolerated treatment well. Post Treatment Pain: 5/10 Time In: 9:05 Time Out : 9:35 Timed Code Treatment Minutes: 30 Minutes Total Treatment Time: 30 Minutes Clara Castrejon, PT Date: 01/15/2025 documented in this encounter [facility] 01-12-2025 History of Present illness Narrative Images from the original note were not included. [facility] Daily Note Date: 01/12/2025 Patient Name: Meena Lucero : 1995 (29 y.o.) Referring Provider (secondary): Dr. Partida Diagnosis: R buttock pain, sacral pain Treatment Diagnosis: back pain, SI pain Onset Date: 09/28/24 (Referral) PT Insurance Information: [facility] Total # of Visits Approved: 16 [...] pelvic stability-Met STG Goal 3 Status:: Met Mcfp Goals Time Frame for Sheet Rock Taper Goals : 16 Sheet Rock Taper Goal 1: Improve functional mobility with Oswestry score <15/50 (from 22/50) Sheet Rock Taper Goal 2: Decrease R SI pain 4/10 at worst x3 days Treatment Tolerance: Treatment Tolerance: Tolerated treatment well. Post Treatment Pain: 3/10 Time In: 8:13 Time Out : 8:54 Timed Code Treatment Minutes: 41 Minutes Total Treatment Time: 41 Minutes Claar Castrejon PT Date: 01/12/2025 documented in this encounter [facility] 01-10-2025 History of Present illness Narrative Images from the original note were not included. [facility] Daily Note Date: 01/10/2025 Patient Name: Meena Lucero : 1995 (29 y.o.) Referring Provider (secondary): Dr. Partida Diagnosis: R buttock pain, sacral pain Treatment Diagnosis: back pain, SI pain Onset Date: 09/28/24 (Referral) PT Insurance Information: [facility] Total # of Visits Approved: 16 [...] pelvic stability-Met STG Goal 3 Status:: Met Mcfp Goals Time Frame for Mcfp Goals : 16 Mcfp Goal 1: Improve functional mobility with Oswestry score <15/50 (from 22/50) Mcfp Goal 2: Decrease R SI pain 4/10 at worst x3 days Treatment Tolerance: Treatment Tolerance: Tolerated treatment well. Post Treatment Pain: 4/10 Time In: 0902 Time Out: 0933 Timed Code Treatment Minutes: 31 Minutes Total Treatment Time: 31 Minutes Austen Puga, VITA Date: 01/10/2025 documented in this encounter [facility] 01-05-2025 History of Present illness Narrative Images from the original note were not included. [facility] Daily Note Date: 01/05/2025 Patient Name: Meena Lucero : 1995 (29 y.o.) Referring Provider (secondary): Dr. Partida Diagnosis: R buttock pain, sacral pain Treatment Diagnosis: back pain, SI pain Onset Date: 09/28/24 (Referral) PT Insurance Information: [facility] Total # of Visits Approved: 16 [...] pelvic stability-Met STG Goal 3 Status:: Met Mcfp Goals Time Frame for Sheet Rock Taper Goals : 16 Sheet Rock Taper Goal 1: Improve functional mobility with Oswestry score <15/50 (from ) Sheet Rock Taper Goal 2: Decrease R SI pain 4/10 at worst x3 days Treatment Tolerance: Treatment Tolerance: Tolerated treatment well. Post Treatment Pain: 5/10 Time In: 0802 Time Out: 0838 Timed Code Treatment Minutes: 36 Minutes Total Treatment Time: 36 Minutes Austen Puga, VITA Date: 01/05/2025 documented in this encounter [facility] 01-02-2025 History of Present illness Narrative Images from the original note were not included. [facility] Daily Note Date: 01/02/2025 Patient Name: Meena Lucero : 1995 (29 y.o.) Referring Provider (secondary): Dr. Partida Diagnosis: R buttock pain, sacral pain Treatment Diagnosis: back pain, SI pain Onset Date: 09/28/24 (Referral) PT Insurance Information: [facility] Total # of Visits Approved: 16 [...] pelvic stability-Met STG Goal 3 Status:: Met Mcfp Goals Time Frame for Sheet Rock Taper Goals : 16 Mcfp Goal 1: Improve functional mobility with Oswestry score <15/50 (from ) Sheet Rock Taper Goal 2: Decrease R SI pain 4/10 at worst x3 days Treatment Tolerance: Treatment Tolerance: Tolerated treatment well. Post Treatment Pain: 8/10 Time In: 1114 Time Out : 1152 Timed Code Treatment Minutes: 37 Minutes Total Treatment Time: 37 Minutes Lauryn Edwards PTA Date: 01/02/2025 documented in this encounter [facility] 12-29-2024 History of Present illness Narrative Images from the original note were not included. [facility] Daily Note Date: 12/29/2024 Patient Name: Meena Lucero : 1995 (29 y.o.) Referring Provider (secondary): Dr. Partida Diagnosis: R buttock pain, sacral pain Treatment Diagnosis: back pain, SI pain Onset Date: 09/28/24 (Referral) PT [facility] Total # of Visits Approved: 16 [...] pelvic stability-Met STG Goal 3 Status:: Met Sheet Rock Taper Goals Time Frame for Sheet Rock Taper Goals : 16 Sheet Rock Taper Goal 1: Improve functional mobility with Oswestry score <15/50 (from ) Sheet Rock Taper Goal 2: Decrease R SI pain 4/10 at worst x3 days Treatment Tolerance: Treatment Tolerance: Tolerated treatment well. Post Treatment Pain: 4/10 Time In: 11;15 Time Out : 11:43 Timed Code Treatment Minutes: 28 Minutes Total Treatment Time: 28 Minutes Clara Castrejon, PT Date: 12/29/2024 documented in this encounter [facility] 12-27-2024 History of Present illness Narrative Images from the original note were not included. [facility] Daily Note Date: 12/27/2024 Patient Name: Meena Lucero : 1995 (29 y.o.) Referring Provider (secondary): Dr. Partida Diagnosis: R buttock pain, sacral pain Treatment Diagnosis: back pain, SI pain Onset Date: 09/28/24 (Referral) PT Insurance Information: [employer] Total # of Visits Approved: 16 Per [...] pelvic stability STG Goal 3 Status:: Met Mcfp Goals Time Frame for Mcfp Goals : 16 Mcfp Goal 1: Improve functional mobility with Oswestry score <15/50 (from ) Sheet Rock Taper Goal 2: Decrease R SI pain 4/10 at worst x3 days Treatment Tolerance: Treatment Tolerance: Tolerated treatment well. Post Treatment Pain: 5/10 Time In: 0900 Time Out: 0935 Timed Code Treatment Minutes: 35 Minutes Total Treatment Time: 35 Minutes Austen Puga PTA Date: 12/27/2024 documented in this encounter [facility] 12-22-2024 History of Present illness Narrative Images from the original note were not included. [facility] Daily Note Date: 12/22/2024 Patient Name: Meena Lucero : 1995 (29 y.o.) Referring Provider (secondary): Dr. Partida Diagnosis: R buttock pain, sacral pain Treatment Diagnosis: back pain, SI pain Onset Date: 09/28/24 (Referral) PT Insurance Information: [employer] Total # of Visits Approved: 16 Per [...] hip abd 4+/5 for improved pelvic stability Sheet Rock Taper Goals Time Frame for Sheet Rock Taper Goals : 16 Mcfp Goal 1: Improve functional mobility with Oswestry score <15/50 (from 22/50) Mcfp Goal 2: Decrease R SI pain 4/10 at worst x3 days Treatment Tolerance: Treatment Tolerance: Tolerated treatment well. Post Treatment Pain: 5-6/10 Time In: 0801 Time Out: 0836 Timed Code Treatment Minutes: 35 Minutes Total Treatment Time: 35 Minutes Austen Puga PTA Date: 12/22/2024 documented in this encounter [facility] 12-20-2024 History of Present illness Narrative Images from the original note were not included. [facility] Daily Note Date: 12/20/2024 Patient Name: Meena Lucero : 1995 (29 y.o.) Referring Provider (secondary): Dr. Partida Diagnosis: R buttock pain, sacral pain Treatment Diagnosis: back pain, SI pain Onset Date: 09/28/24 (Referral) PT Insurance Information: [facility] Total # of Visits Approved: 16 [...] hip abd 4+/5 for improved pelvic stability Mcfp Goals Time Frame for Sheet Rock Taper Goals : 16 Mcfp Goal 1: Improve functional mobility with Oswestry score <15/50 (from ) Mcfp Goal 2: Decrease R SI pain 4/10 at worst x3 days Treatment Tolerance: Treatment Tolerance: Tolerated treatment well. Post Treatment Pain: 6/10 Time In: 9;00 Time Out : 9:26 Timed Code Treatment Minutes: 26 Minutes Total Treatment Time: 26 Minutes Clara Castrejon, PT Date: 12/20/2024 documented in this encounter [facility] 12-19-2024 History of Present illness [...] PO) Oral ALLERGIES Allergies Allergen Reactions Hydrocodone Ransom Oil Hives Codeine Rash and Unknown Chest [...] nursing note reviewed. Exam conducted with a baggage porter head present. Vitals: Estimated body mass index is [...] tolerance, 1 hour 4. Low platelet count (CMS/[facility]) D69.6 Platelet count 5. Thrombocytopenia affecting , antepartum (CMS/[facility]) O99.119 D69.6 6. Circumvallate placenta during in [...] Gary Robison DO documented in this encounter [facility] 12-13-2024 History of Present illness Narrative Images from the original note were not included. [facility] Daily Note Date: 12/13/2024 Patient Name: Meena Lucero : 1995 (29 y.o.) Referring Provider (secondary): Dr. Partida Diagnosis: R buttock pain, sacral pain Treatment Diagnosis: back pain, SI pain Onset Date: 09/28/24 (Referral) PT [facility] Total # of Visits Approved: 16 [...] hip abd 4+/5 for improved pelvic stability Sheet Rock Taper Goals Time Frame for Mcfp Goals : 16 Mcfp Goal 1: Improve functional mobility with Oswestry score <15/50 (from ) Mcfp Goal 2: Decrease R SI pain 4/10 at worst x3 days Treatment Tolerance: Treatment Tolerance: Tolerated treatment well. Post Treatment Pain: 6/10 Time In: 0945 Time Out: 1018 Timed Code Treatment Minutes: 33 Minutes Total Treatment Time: 33 Minutes Austen Puga PTA Date: 12/13/2024 documented in this encounter [facility] 12-06-2024 History of Present illness Narrative Images from the original note were not included. [facility] Daily Note Date: 12/06/2024 Patient Name: Meena Lucero : 1995 (29 y.o.) Referring Provider (secondary): Dr. Partida Diagnosis: R buttock pain, sacral pain Treatment Diagnosis: back pain, SI pain Onset Date: 09/28/24 (Referral) PT Insurance Information: [facility] Total # of Visits Approved: 16 [...] hip abd 4+/5 for improved pelvic stability Sheet Rock Taper Goals Time Frame for Sheet Rock Taper Goals : 16 Mcfp Goal 1: Improve functional mobility with Oswestry score <15/50 (from 22/50) Mcfp Goal 2: Decrease R SI pain 4/10 at worst x3 days Treatment Tolerance: Treatment Tolerance: Tolerated treatment well. Post Treatment Pain: 6/10 Time In: 9:45 Time Out : 10:18 Timed Code Treatment Minutes: 33 Minutes Total Treatment Time: 33 Minutes Clara Castrejon, PT Date: 12/06/2024 Images from the original note were not included. [facility] Progress Report Date: 12/06/2024 Patient: Meena Lucero : 1995 Referring Provider (secondary): Dr. Partida Diagnosis: R buttock pain, sacral pain Treatment Diagnosis: back pain, SI pain Onset Date: 09/28/24 (Referral) PT [facility] Total # of Visits Approved: 16 Per [...] hip abd 4+/5 for improved pelvic stability Mcfp Goals Time Frame for Mcfp Goals : 16 Mcfp Goal 1: Improve functional mobility with Oswestry score <15/50 (from 22/50) Mcfp Goal 2: Decrease R SI pain 4/10 at worst x3 days Clara Castrejon, PT Date: 12/06/2024 documented in this encounter [facility] 11-20-2024 History of Present illness [...] hours PRN ALLERGIES Allergies Allergen Reactions Hydrocodone Ransom Oil Hives Codeine Rash and Unknown Chest [...] of: CANDACE Avitia documented in this encounter [facility] 10-17-2024 History of Present illness [...] hours PRN ALLERGIES Allergies Allergen Reactions Hydrocodone Ransom Oil Hives Codeine Rash and Unknown Chest [...] nursing note reviewed. Exam conducted with a baggage porter head present. Vitals: Estimated body mass index is [...] Gary Robison DO documented in this encounter [facility] 10-17-2024 History of Present illness Narrative Occupational Therapy [facility] Date: 10/17/2024 Patient Name: Meena Lucero : 1995 Pt Cancelled Appt due to no reason for cancel Trinity Harris Date: 10/17/2024 documented in this encounter [facility] 10-12-2024 History of Present illness Narrative Images from the original note were not included. [facility] Daily Note Date: 10/12/2024 Patient Name: Meena Lucero : 1995 (28 y.o.) Referring Provider (secondary): Dr. Partida Diagnosis: R buttock pain, sacral pain Treatment Diagnosis: back pain, SI pain Onset Date: 09/28/24 (Referral) PT Insurance Information: [facility] Total # of Visits Approved: 16 [...] hip abd 4+/5 for improved pelvic stability Sheet Rock Taper Goals Time Frame for Mcfp Goals : 16 Mcfp Goal 1: Improve functional mobility with Oswestry score <15/50 (from 22/50) Sheet Rock Taper Goal 2: Decrease R SI pain 4/10 at worst x3 days Post Treatment Pain: 4/10 Time In: 8:00 Time Out : 8:33 Timed Code Treatment Minutes: 33 Minutes Total Treatment Time: 33 Minutes Clara Castrejon, PT Date: 10/12/2024 documented in this encounter [facility] 10-04-2024 History of Present illness Narrative Physical Therapy [facility] Date: 10/04/2024 Patient Name: Meena Lucero : 1995 Pt Cancelled Appt due to therapist darron Harris Date: 10/04/2024 documented in this encounter [facility] 09-18-2024 History of Present illness [...] hours PRN ALLERGIES Allergies Allergen Reactions Hydrocodone Ransom Oil Hives Codeine Rash and Unknown Chest [...] nursing note reviewed. Exam conducted with a baggage porter head present. Vitals: Estimated body mass index is [...] or undercooked meat, and stay away from [facility]. Patient has been consulted regarding any [...] Gary Robison DO documented in this encounter [facility] 08-18-2024 History of Present illness [...] Date CHOLECYSTECTOMY TONSILLECTOMY Allergies Allergen Reactions Hydrocodone Ransom Oil Hives Codeine Rash and Unknown Chest [...] screen, urine; Future Nurse Note: Pt given Merigold 21 and advised to have labs done [...] Daxa Martinez MA documented in this encounter [facility] 07-27-2024 History of Present illness Narrative Images from the original note were not included. [facility] Daily Note Date: 07/27/2024 Patient Name: Meena Lucero : 1995 (28 y.o.) Referring Provider (secondary): Dr. Partida Diagnosis: Sacral pain Treatment Diagnosis: SI pain Onset Date: 05/29/24 PT Insurance Information: [facility] Total # of Visits Approved: 16 [...] Goals Short Term Goal 1: STG= LTG Sheet Rock Taper Goals Time Frame for Sheet Rock Taper Goals : 16 visits Mcfp Goal 1: Decrease subjective SI/right gluteal pain to <3/10 with activity and transitional movements Post Treatment Pain: 5/10 Time In: 0910 Time Out : 0935 Timed Code Treatment Minutes: 25 Minutes Total Treatment Time: 25 Minutes Onel Davsi, PT Date: 07/27/2024 documented in this encounter [facility] 07-06-2024 History of Present illness Narrative Images from the original note were not included. [facility] Daily Note Date: [...] strengthening for self-correction of pelvic asymetry- MET Sheet Rock Taper Goals Time Frame for Mcfp Goals : 10 visits Sheet Rock Taper Goal 1: Decrease subjective SI/right gluteal pain to <3/10 with activity and transitional movements Sheet Rock Taper Goal 2: Upgrade HEP for pelvic stab ex Mcfp Goal 3: Maintain symetrical pelvic alignment for 5 consecutive days Post Treatment Pain: 4/10 Time In: 09 Time Out : 45 Timed Code Treatment Minutes: 35 Minutes Total Time: 35 Minutes ASIA MIX, PT Date: 07/06/2024 documented in this encounter [facility] 06-29-2024 History of Present illness Narrative Images from the original note were not included. [facility] Outpatient Physical Therapy Daily Note Date: [...] strengthening for self-correction of pelvic asymetry- MET Mcfp Goals Time Frame for Mcfp Goals : 10 visits Sheet Rock Taper Goal 1: Decrease subjective SI/right gluteal pain to <3/10 with activity and transitional movements Sheet Rock Taper Goal 2: Upgrade HEP for pelvic stab ex Mcfp Goal 3: Maintain symetrical pelvic alignment for 5 consecutive days Post Treatment Pain: 2-3/10 Time In: 0915 Time Out : 0955 Timed Code Treatment Minutes: 35 Minutes Total Time: 40 Minutes ASIA MIX PT Date: 06/29/2024 documented in this encounter [facility] [employer] 01-10-2023 Hospital Discharge instructions Fei Canales MD - 01/10/2023 3:17 PM EST There was a possible concern for fracture of the fibula. Please follow-up with Dr. Rehman for further evaluation and be sure to use crutches and be nonweightbearing until then. The following attachments cannot be sent through Care Everywhere.Ankle Sprain (Croatian)documented in this encounter [facility] [employer] [facility] Work Phone: 12-08-2022 Hospital Discharge instructions Patient [...] and water are not available, use hand dyeing machine feeder. Make sure that all people in your household wash their hands well and often. Take hrfv-lvi-dwmqrjp and prescription medicines only as told by [...] and water are not available, use hand dyeing machine feeder. This information is not intended to replace advice given to you by your health care provider. Make sure you discuss any questions you have with your health care provider. Document Released: 11/08/2006 Document Revised: 04/26/2020 Document Reviewed: 09/13/2019 [employer] Patient Education 2020 [employer]. Follow Up Care 12/08/2022 09:17:52 With:Keyon DAVIS MD, FAM Address: When: only if needed [facility] Kim 12-04-2022 Hospital Discharge instructions Jason Tracy MD - 12/04/2022 4:33 PM EST Increase fluids at home. Take Zofran for any nausea. Try Imodium/loperamide for diarrhea. Call primary care doctor for close follow-up. Use Tylenol or Motrin to keep fever down. The following attachments cannot be sent through Care Everywhere.Viral Infections (Croatian)documented in this encounter [facility] [employer] Work Phone: 06-01-2022 Hospital Discharge instructions Patient [...] height. This can be done either in Croatian ([place] or metric measurements. Note that charts are available to help you find your BMI quickly and easily without having to do these calculations yourself. To calculate your BMI in Croatian ([place] measurements, your health care provider will: [...] medical problems. BMI can be measured using Croatian measurements or metric measurements. To interpret your [...] 07/20/2005 Document Revised: 10/21/2018 Document Reviewed: 09/21/2018 [employer] Patient Education 2020 [employer] 06/01/2022 13:15:39 Carpal Tunnel Syndrome Carpal [...] Having a job, such as being a svp digital sales or a cashier and waiter/waitress, that requires you to repeatedly move your [...] 3 times per day. General instructions Take llbs-xuw-wszcvsg and prescription medicines only as told by [...] 11/05/2001 Document Revised: 03/17/2019 Document Reviewed: 03/17/2019 [employer] Patient Education 2020 [employer]. Follow Up Care 05/28/2022 08:22:05 With:Meena Carl CNP Address: When: only if needed [facility] Primary [facility] Evaluation + Plan note [facility] Primary [facility] Evaluation note Diagnosis Subacute bronchitis- Primary Acute bronchitis documented in this encounter [facility] Phone: evaluation note* Diagnosis Left wrist pain Pain in joint, forearm documented in this encounter [employer] Phone: evaluation note* Diagnosis Viral illness- Primary Unspecified viral infection, in conditions classified elsewhere and of unspecified site documented in this encounter [employer] Phone: evaluation note* Diagnosis Injury of right ankle, initial encounter- Primary documented in this encounter [employer] Phone: evaluation note* Diagnosis Other closed fracture of proximal end of right fibula with routine healing, subsequent encounter documented in this encounter [facility] [employer] Phone: evalxrxcmn note* Diagnosis First trimester state, incidental 11 [...] unspecified fetus [facility] encounter [facility] Diagnosis 34 weeks gestation of Third trimester state, incidental Low platelet count (CMS/HCC) 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, antepartum Excessive growth affecting management of , antepartum, single or unspecified fetus documented in this encounter [facility] Narrative No data available for this section [facility] Hospital Discharge instructions* Attachments The following attachments cannot be sent through Care Everywhere. * Bronchitis (Croatian) [facility] [employer] Work Phone: progress note No data available for this section [facility] Reason for referral (narrative) Referred by: Meena Carl CNP [facility] Advance Directives No Advanced Directives Records FoundDocuments on File Type Date Recorded Patient [employer] Expl anation ACP-Advance Directive ACP-Power of Nurse Reviewer Summary Purpose Family History No Family History [...] Care Team (unrecognized sect ion and content) Sprue Knocker Relationship Specialty Start Date End Date Keyon Davis MD [address] [place] [address] PCP - General Family Medicine 12/04/22 Sprue Knocker Relationship Specialty Start Date End Date Keyon Davis MD [address] [place] [address] PCP - General Family Medicine 12/04/22 Sprue Knocker Relationship Specialty Start Date End Date Keyon Davis MD [address] [place] [address] PCP - General Family Medicine 12/04/22 Sprue Knocker Relationship Specialty Start Date End Date Óscar Nassar DNP [address] [phone] PCP - General Family Nurse Practitioner 03/14/24 Sprue Knocker Relationship Specialty Start Date End Date Óscar Nassar DNP [address] [phone] PCP - General Family Nurse Practitioner 03/14/24 Sprue Knocker Relationship Specialty Start Date End Date Óscar Nassar DNP [address] [phone] PCP - General Family Nurse Practitioner 03/14/24 Sprue Knocker Relationship Specialty Start Date End Date Óscar Nassar DNP [address] [phone] PCP - General Family Nurse Practitioner 03/14/24 Sprue Knocker Relationship Specialty Start Date End Date Keyon Davis MD [facility] [place] [address] PCP - General 05/12/23 Gary oRbison DO [address] [place] [address] [address] [place], [place] [phone] PCP - [facility] 02/21/24 Sprue Knocker Relationship Specialty Start Date End Date Keyon Davis MD [facility] [address] [place] [phone] PCP - General 05/12/23 Gary Robison, [facility] [place] [address] PCP - [facility] 02/21/24 Sprue Knocker Relationship Specialty Start Date End Date Óscar Nassar DNP [address] [place], [place] [phone] PCP - General Family Nurse Practitioner 03/14/24 Sprue Knocker Relationship Specialty Start Date End Date Keyon Davis MD [address] [place] [phone] PCP - General 05/12/23 Gary Robison, [facility] [address], [place] [address] PCP - [facility] 02/21/24 Sprue Knocker Relationship Specialty Start Date End Date Keyon Davis MD [address] [place], [place] [address] [place] [phone] PCP - General 05/12/23 Gary Robison, [facility] [address] [place], [facility] PCP - [facility] 02/21/24 Sprue Knocker Relationship Specialty Start Date End Date Keyon Davis MD [address] [place] [phone] PCP - General 05/12/23 Gary Robison DO [facility] [place] [address] PCP - [facility] 02/21/24 Sprue Knocker Relationship Specialty Start Date End Date Keyon Davis MD [address] [place] [phone] PCP - General 05/12/23 Gary Robison, [facility] [address] [place], [facility] PCP - [facility] 02/21/24 Sprue Knocker Relationship Specialty Start Date End Date Keyon Davis MD [facility] [address] [place] [phone] PCP - General 05/12/23 Gary Robison, DO [facility] [address] [place], [facility] PCP [facility] 02/21/24 Sprue Knocker Relationship Specialty Start Date End Date Óscar Nassar DNP [address] [place] [phone] PCP - General Family Nurse Practitioner 03/14/24 Sprue Knocker Relationship Specialty Start Date End Date Keyon Davis MD [facility] [place] [address] PCP - General 05/12/23 Gary Robison, [facility] [address] [place], [place] [phone] PCP [facility] 02/21/24 Sprue Knocker Relationship Specialty Start Date End Date Keyon Davis MD [address] [place] [phone] PCP - General 05/12/23 Gary Robison DO [facility] [address] [place], [place] [phone] PCP - [facility] 02/21/24 Sprue Knocker Relationship Specialty Start Date End Date Óscar Nassar DNP [address] [place] [phone] PCP - General Family Nurse Practitioner 03/14/24 Sprue Knocker Relationship Specialty Start Date End Date Keyon Davis MD [address] [place], [place] [address] [phone] PCP - General 05/12/23 Gary Robison DO [facility] [address] [place] [phone] PCP [facility] 02/21/24 Sprue Knocker Relationship Specialty Start Date End Date Keyon Davis MD [facility] [address] [place] [phone] PCP - General 05/12/23 Gary Robison DO [facility] [address] [place] [phone] PCP [facility] 02/21/24 Sprue Knocker Relationship Specialty Start Date End Date Óscar Nassar DNP [address] [place] [phone] PCP - General Family Nurse Practitioner 03/14/24 Sprue Knocker Relationship Specialty Start Date End Date Keyon Davis MD [address] [place] [phone] PCP - General 05/12/23 Gary Robison DO [facility] [place] [address] PCP - [facility] 02/21/24 Sprue Knocker Relationship Specialty Start Date End Date Keyon Davis MD [address] [place] [phone] PCP - General 05/12/23 Gary Robison DO [address] [place] [address] PCP - [facility] 02/21/24 INFORMATION SOURCE (unrecogn ized section and content) DATE CREATED AUTHOR 02/01/2023 [facility] DATE CREATED AUTHOR AUTHOR'S ORGANIZ ATION 04/01/2023 Lisa Juarez [facility] DATE CREATED AUTHOR AUTHOR'S ORGANIZ ATION 02/15/2025 Kirsty charles DATE CREATED AUTHOR AUTHOR'S ORGANIZ ATION 03/01/2025 [facility] FOR RECORDS PERTAINING TO PATIENTS WHO [...] BE BASED ON THE PRIMARY CLINICAL RECORDS. [employer] provides no warranty or guarantee of the accuracy or completeness of information in this document.
[2025-03-02 08:40] VITALS: BP 122/73; PULSE 73
== END 2025-03-02 09:35 | disposition home or self-care (01) ==
LOC: FBCO 08:33 → FBC 08:34
PROVIDERS: Visit Provider Obstetrics & Gynecology
DX: O43.119 Circumvallate placenta, unspecified trimester (principal); Z3A.00 Weeks of gestation of pregnancy not specified; D69.6 Thrombocytopenia, unspecified
CPT/HCPCS: 36415; 59025; 85049

== ENCOUNTER 2025-03-06 08:34 | Outpatient (OUT) | payer OTHER, SELFPAY ==
--- NOTE | 2025-03-06 | US_ITS ---
The [address] [address] Patient Name: RUEL READ MRN: [id number] date: 1995 Sex: F Assigned Patient Location: [facility] Current Patient Location: Accession/Order Number: [id number] Exam Date: 03/06/2025 09:42 Report Date: 03/06/2025 09:44 At the request of: BEVERLY PINTO Procedure: US OB BPP w non-stress BIOPHYSICAL PROFILE: CLINICAL INFORMATION: CIRCUMVALLATE PLACENTA O43.112 COMPARISON: 02/27/2025 There is a single live intrauterine gestation in cephalic presentation. The reported gestational age is 35 weeks 2 days. The heart rate measures 163 beats per minute. FINDINGS: TONE: 1 or more episodes of activity extension and flexion of extremity or opening and closing of the hand [Y] 2/2 GROSS BODY MOVEMENTS: 3 or more discrete body or limb movements [Y] 2/2 BREATHING MOVEMENTS: 1 or more episodes of breathing lasting at least 30 seconds [Y] 2/2 MAXIMILIANO: A single deepest vertical pocket of amniotic fluid greater than 2 cm [Y] 2/2 MAXIMILIANO: 12.2 cm . This is in low-normal range. Total score: 06/29 US/US OB BPP w non-stress IMPRESSION: NORMAL BIOPHYSICAL PROFILE. Impression dictated by: Marlene Orellana M.D.03/06/2025 9:44 AM Dictation Location: [place] [address] Electronically authenticated by: [id number] Y Date: 03/06/2025 09:44
[2025-03-06 08:59] VITALS: BP 119/64; PULSE 80
== END 2025-03-06 09:30 | disposition home or self-care (01) ==
LOC: US 08:34 → FBC 08:37
PROVIDERS: Visit Provider Physician Assistant
DX: O43.893 Other placental disorders, third trimester (principal); O43.113 Circumvallate placenta, third trimester; Z3A.35 35 weeks gestation of pregnancy
CPT/HCPCS: 76818

== ENCOUNTER 2025-03-09 08:21 | Outpatient (OUT) | payer OTHER, SELFPAY ==
--- OUTSIDE RECORDS SUMMARY | 2025-03-09 08:29 | XMS_ITS | CCD ---
Author Organization [facility] Care Team Providers Care Dispensary Attendant Name Role Phone Unavailable Primary Care Provider UnavailCharli Browne Primary Care Physician [phone] Keyon Davis MD Primary Care Provider ANTHONY Carl Attending UnavailKeyon Lockett Attending Unavailable Evan Moyer Attending Unavailable LISHA, DR DRUMMOND LISTED Consulting Unavaila ble [facility] [place]ICOLE Primary Care Unavailable ENRIQUETA ., DR BENDER Attending Unavailable ENRIQUETA ., DR BENDER Admitting Unavailable Clingman HUMA, Óscar Moreno Primary Care Provider Tyshawn FINN, Óscar Moreno Primary Care Provider [phone] Keyon Davis MD Primary Care Provider [phone] Gary Robison DO Unavailable JOHN PARTIDA Attending [...] CLINGMAN, ÓSCAR A Primary Care Unavailable JOHN PARTDIA Attending Unavailable JOHN PARTIDA Referring Unavailable CLINGMAN, [...] / HYDROcodone Drug Allergy 7 Rash, Unknown [facility] (20 sources) Acetaminophen / oxyCODONE Drug Allergy 5 Rash, Unknown [facility] (20 sources) Codeine; Translations: [codeine] Drug Allergy 7 Rash, Cutaneous eruption (morphologic abnormality), Unknown [facility] (3 sources) Acetaminophen / HYDROcodone; Translations: [acetaminophen-hy drocodone] Drug Allergy Hives [facility] (3 sources) Acetaminophen / oxyCODONE; Translations: [acetaminophen-ox ycodone] Drug Allergy Cutaneous eruption (morphologic abnormality) [facility] (1 source) Acetaminophen / HYDROcodone Drug Allergy [facility] (1 source) Acetaminophen / oxyCODONE Drug Allergy [facility] (1 source) Codeine Drug Allergy [facility] (20 sources) HYDROcodone Drug Allergy 3 [facility] (20 sources) orange allergenic extract Drug Allergy 5 [facility] Medications Current Medications Medication Drug Class(es) [...] extended release oral tablet (6 sources) Uncompetitive D-gxremq-Q-aspartate Receptor Antagonist, Sigma-1 Agonist Start: 09-14-2021 take 1 tablet by mouth every twelve hours as needed for cough Dextromethorphan-g uaiFENesin 60-1200 MG TB12 Take 1 tablet by mouth every 12 hours as needed (COUGH CONGESTION) 28 tablet 0 09/14/2021 Active dextromethorphan hydrobromide 3 mg/ml / promethazine hydrochloride 1.25 mg/ml oral solution (6 sources) Phenothiazine, Uncompetitive J-idhzra-G-aspartate Receptor Antagonist, Sigma-1 Agonist Start: 05-31-2018 promethazine-dextr [...] day(s), # 30 tab(s), Refills(s) 1, Pharmacy: [facility], 170, cm, 06/01/22 12:55:00 EDT, Height/Length [...] Active ondansetron 4 mg disintegrating oral tablet (9 sources) Serotonin-3 Receptor Antagonist Start: 08-07-2024 End: [...] pantoprazole 40 mg delayed release oral tablet (13 sources) Proton Pump Inhibitor Start: 01-16-2025 End: [...] TID, # 15 tab(s), Refills(s) 0, Pharmacy: [facility], 170, cm, 09/03/22 14:31:00 EDT, Height/Length [...] Test Name Value Interpretation Reference Range Facility OB BPP W NON-STRESS on 03-06-[address] [address] Ultrasound Report Signed Patient: MEENA LUCERO MR#: [id number] : 1995 Acct:[id number] Age/Sex: 29 / F ADM Date: 03/06/25 Loc: US Attending Dr: Genevieve Calderon Ordering Physician: Genevieve Calderon Date of Service: 03/06/25 Procedure(s): US OB BPP w non-stress Accession Number(s): [id number] cc: Genevieve Calderon; Physician,Non-Staff M.DRosa The [address] [address] Patient Name: MEENA LUCERO MRN: [facility]:[id number] date: 1995 Sex: F Assigned Patient Location: [facility] Current Patient Location: Accession/Order Number: [id number] Exam Date: 03/06/2025 09:42 Report Date: 03/06/2025 09:44 At the request of: GENEVIEVE CALDERON Procedure: US OB BPP w non-stress BIOPHYSICAL PROFILE: CLINICAL INFORMATION: CIRCUMVALLATE PLACENTA O43.112 COMPARISON: 02/27/2025 There is a single live intrauterine gestation in cephalic presentation. The reported gestational age is 35 weeks 2 days. The heart rate measures 163 beats per minute. FINDINGS: TONE: 1 or [...] greater than 2 cm [Y] 2/2 MAXIMILIANO: 12.2 cm . This is in low-normal range. Total score: 06/29 US/US OB BPP w non-stress IMPRESSION: NORMAL BIOPHYSICAL PROFILE. Impression dictated by: Marlene Orellana M.D.03/06/2025 9:44 AM Dictation Location: [place] [address] Electronically authenticated by: [id number] Y Date: 03/06/2025 09:44 Dictated By: Marlene Orellana M.D. Signed By: 03/06/2547 DD/ TD/TT: Surveying Crew Stake Runner: [facility] Radiology, Radiologist, - 03/06/2025 [place] [address] Ultrasound Report Signed Patient: MEENA LUCERO MR#: [id number] : 1995 Acct:[id number] Age/Sex: 29 / F ADM Date: 03/06/25 Loc: US Attending Dr: Genevieve Calderon Ordering Physician: Genevieve Calderon Date of Service: 03/06/25 Procedure(s): US OB BPP w non-stress Accession Number(s): [id number] cc: Genevieve Calderon; Physician,Non-Staff Del The [address] [address] Patient Name: MEENA LUCERO MRN: [facility]:[id number] date: 1995 Sex: F Assigned Patient Location: [facility] Current Patient Location: Accession/Order Number: [id number] Exam Date: 03/06/2025 09:42 Report Date: 03/06/2025 09:44 At the request of: GENEVIEVE CALDERON Procedure: US OB BPP w non-stress BIOPHYSICAL PROFILE: CLINICAL INFORMATION: CIRCUMVALLATE PLACENTA O43.112 COMPARISON: 02/27/2025 There is a single live intrauterine gestation in cephalic presentation. The reported gestational age is 35 weeks 2 days. The heart rate measures 163 beats per minute. FINDINGS: TONE: 1 or [...] greater than 2 cm [Y] 2/2 MAXIMILIANO: 12.2 cm . This is in low-normal range. Total score: 06/29 US/US OB BPP w non-stress IMPRESSION: NORMAL BIOPHYSICAL PROFILE. Impression dictated by: Marlene Orellana M.D.03/06/2025 9:44 AM Dictation Location: [place] [address] Electronically authenticated by: [id number] Y Date: 03/06/2025 09:44 Dictated By: Marlene Orellana M.D. Signed By: 03/06/25 0947 DD/ 3 TD/TT: Surveying Crew Stake Runner: [facility] [employer] Radiology Study observation (narrative) [facility] [employer] US OB BPP W NON-STRESS Ordered By: Radiologist Radiology on 03-06-2025 [facility] [employer] Work Phone: ALL PLATELET COUNTon 025 TBH PLT 158 [facility] US OB FOLLOW UP TRANSABDOMIN AL APPROACHon 02-28-2025 US OB FOLLOW UP TRANSABDOMINAL APPROACH EXAM: US OB FOLLOW UP TRANSABDOMINAL APPROACH HISTORY: Large for gestational age. COMPARISON: OB ultrasound 11/20/2024. TECHNIQUE: Two-dimensional transabdominal grayscale ultrasound imaging of the pelvis was performed. FINDINGS: Gestation: Single Presentation: Cephalic Cardiac Activity: 134 beats per minute Placental Location: Posterior with no sonographic abnormalities identified. Cervical canal: Not visualized Amniotic Fluid Index: 10.7 cm MEASUREMENTS: BPD: 8.6 cm EGA: 34 weeks 4 days HC: 32.5 cm EGA: 36 weeks 5 days AC: 32.4 cm EGA: 36 weeks 2 days FL: 7.1 cm EGA: 36 weeks 2 days HC/AC Ratio: 1.00 The gestational age by today's ultrasound is 36 weeks 0 days (+/- 18 days gestation). Estimated Weight: 2873 grams, +/- 431 grams ( 6 lb 5 oz). Weight Percentile for gestational age: 90 % IMPRESSION: 1. Single, live intrauterine gestation 34 weeks, 3 days by LMP. Today's ultrasound measurements correlate with a gestational age of 36 weeks 0 days. Estimated weight is 2873 grams, +/- 431 grams ( 6 lb 5 oz) which correlates to 90 %. SHADY is 03/28/2025. 2. growth is large for gestational age. Interpreted by: Electronically signed by BEST EATON II, MD, PHD at 02-Mar-2025 06:24:22 AM [facility] Normal Not Available Comment on above: Order Comment: US OB SCAN FOR GROWTH Estimated Date of Delivery: 04/08/25 Gestational Age as of 02/13/2025: 32w2d Urinalysis macro (dipstick) panel (U)on 02-28-2025 Bilirubin, UA Negative Negative - 4(70) +++ mg/dL [facility] Blood, UA Negative Negative - 50 Darnell/mcL [facility] Clarity, UA Clear [facility] Color, UA Yellow [facility] Glucose, UA Negative Negative - 2000(110) ++++ mg/dL [facility] Interpretation and review of laboratory results Abnormal [facility] Ketones, UA Negative Negative - 160(16) ++++ mg/dL [facility] Leukocytes, UA Positive Negative - 500+++ Shona/mcL [facility] Comment on above: small Nitrite, UA Negative Negative - Positive [facility] pH, UA 6 5 - 9 [facility] Protein, UA Trace Negative - 1999(20) ++++ mg/dL [facility] Spec Grav, UA 1.025 1 - 1.03 [facility] care Urobilinogen, UA 0.2 0.2 - 12 mg/dL [facility] OB BPP W NON-STRESS on 02-27-2025 [place] [address] Ultrasound Report Signed Patient: MEENA LUCERO MR#: [id number] : 1995 Acct:[id number] Age/Sex: 29 / F ADM Date: 02/27/25 Loc: US Attending Dr: Genevieve Calderon Ordering Physician: Genevieve Calderon Date of Service: 02/27/25 Procedure(s): US OB BPP w non-stress Accession Number(s): [id number] cc: Genevieve Calderon; Physician,Non-Staff M.D. [place] [id number] Patient Name: MEENA LUCERO MRN: [id number]:[id number] date: 1995 Sex: F Assigned Patient Location: [facility] Current Patient Location: Accession/Order Number: [id number] Exam Date: 02/27/2025 10:35 Report Date: 02/27/2025 [...] Jones Clemente M.D.02/27/2025 10:36 AM Dictation Location: [place] [address] Electronically authenticated by: [id number] Y Date: 02/27/2025 10:36 Dictated By: Jones Clemente D.O. Signed By: 02/27/251038 DD/ 35 TD/TT: Surveying Crew Stake Runner: [facility] Radiology, Radiologist, - 02/27/2025 The [place] [id number] Ultrasound Report Signed Patient: MEENA LUCERO MR#: [id number] : 1995 Acct:[id number] Age/Sex: 29 / F ADM Date: 02/27/25 Loc: US Attending Dr: Genevieve Calderon Ordering Physician: Genevieve Calderon Date of Service: 02/27/25 Procedure(s): US OB BPP w non-stress Accession Number(s): [id number] cc: Genevieve Calderon; Physician,Non-Staff M.Martinez The [place] [id number] Patient Name: MEENA LUCERO MRN: [facility]:[id number] date: 1995 Sex: F Assigned Patient Location: [facility] Current Patient Location: Accession/Order Number: [id number] Exam Date: 02/27/2025 10:35 Report Date: 02/27/2025 [...] Jones Clemente M.D.02/27/2025 10:36 AM Dictation Location: [place] [address] Electronically authenticated by: [id number] Y Date: 02/27/2025 10:36 Dictated By: Jones Clemente D.O. Signed By: 02/27/251038 DD/ 35 TD/TT: Surveying Crew Stake Runner: [facility] Radiology Study observation (narrative) [facility] OB BPP W NON-STRESS Ordered By: Radiologist Radiology on 02-27-2025 [facility] Work Phone: US OB BPP W NON-STRESS on 02-20-[address] [address] Ultrasound Report Signed Patient: MEENA LUCERO MR#: [id number] : 1995 Acct:[id number] Age/Sex: 29 / F ADM Date: 02/20/25 Loc: US Attending Dr: Genevieve Calderon Ordering Physician: Genevieve Calderon Date of Service: 02/20/25 Procedure(s): US OB BPP w non-stress Accession Number(s): [id number] cc: Genevieve Calderon; Physician,Non-Staff MFelipe [address] [address] Patient Name: MEENA LUCERO MRN: [id number] date: 1995 Sex: F Assigned Patient Location: [facility] Current Patient Location: Accession/Order Number: [id number] Exam Date: 02/20/2025 09:19 Report Date: 02/20/2025 09:20 At the request of: GENEVIEVE CALDERON Procedure: US OB BPP w non-stress BIOPHYSICAL PROFILE: CLINICAL INFORMATION: Circumvallate placenta COMPARISON: 02/13/2025 There is a single live intrauterine gestation in cephalic presentation. The reported gestational age is 33 weeks 2 days. The heart rate [id number] beats per minute. FINDINGS: TONE: 1 or [...] Marlene Orellana M.D.02/20/2025 9:20 AM Dictation Location: [place] [address] Electronically authenticated by: [id number] Y Date: 02/20/2025 09:20 Dictated By: Marlene Orellana M.D. Signed By: 02/20/25922 DD/ 9 TD/TT: Surveying Crew Stake Runner: [facility] Radiology, Radiologist, MD - 02/20/2025 [place] [address] Ultrasound Report Signed Patient: MEENA LUCERO MR#: [id number] : 1995 Acct:[id number] Age/Sex: 29 / F ADM Date: 02/20/25 Loc: US Attending Dr: Genevieve Calderon Ordering Physician: Genevieve Calderon Date of Service: 02/20/25 Procedure(s): US OB BPP w non-stress Accession Number(s): [id number] cc: Genevieve Calderon; Physician,Non-Staff Del The [place] [address] Patient Name: MEENA LUCERO MRN: [facility]:[id number] date: 1995 Sex: F Assigned Patient Location: [facility] Current Patient Location: Accession/Order Number: [id number] Exam Date: 02/20/2025 09:19 Report Date: 02/20/2025 09:20 At the request of: GENEVIEVE CALDERON Procedure: US OB BPP w non-stress BIOPHYSICAL PROFILE: CLINICAL INFORMATION: Circumvallate placenta COMPARISON: 02/13/2025 There is a single live intrauterine gestation in cephalic presentation. The reported gestational age is 33 weeks 2 days. The heart rate [id number] beats per minute. FINDINGS: TONE: 1 or [...] amniotic fluid greater than 2 cm [Y] / MAXIMILIANO: 12.3 cm. This is in low-normal range. Total score: 06/29 US/US OB BPP w non-stress IMPRESSION: NORMAL BIOPHYSICAL PROFILE. Impression dictated by: Marlene Orellana M.D.02/20/2025 9:20 AM Dictation Location: [place] [address] Electronically authenticated by: [id number] Y Date: 02/20/2025 09:20 Dictated By: Marlene Orellana M.D. Signed By: 02/20/25922 DD/ 9 TD/TT: Surveying Crew Stake Runner: [facility] Radiology Study observation (narrative) [facility] US OB BPP W NON-STRESS Ordered By: Radiologist Radiology on 02-20-2025 [facility] Work Phone: Urinalysis macro (dipstick) panel (U)on 02-13-2025 Bilirubin, UA Negative Negative - 4(70) +++ mg/dL [facility] Blood, UA Negative Negative - 50 Darnell/mcL [facility] Clarity, UA Clear [facility] Color, UA Yellow [facility] Glucose, UA Negative Negative - 1999(110) ++++ mg/dL [facility] Interpretation and review of laboratory results Abnormal [facility] Ketones, UA Negative Negative - 160(16) ++++ mg/dL [facility] Leukocytes, UA Positive Negative - 500+++ Shona/mcL [facility] Comment on above: small Nitrite, UA Negative Negative - Positive [facility] pH, UA 6 5 - 9 [facility] Protein, UA Trace Negative - 1999(20) ++++ mg/dL [facility] Spec Grav, UA 1.025 1 - 1.03 [facility] care Urobilinogen, UA 0.2 0.2 - 12 mg/dL [facility] ALL PLATELET COUNTon 025 [facility]H PLT 151 [facility] US OB PLACENTAon 01-17-[address] [address] Ultrasound Report Signed Patient: MEENA LUCERO MR#: [id number] : 1995 Acct:[id number] Age/Sex: 29 / F ADM Date: 01/16/25 Loc: US Attending Dr: Gary Robison D.O. Ordering Physician: Gary Robison D.O. Date of Service: 01/16/25 Procedure(s): US OB placenta Accession Number(s): [id number] cc: Gary Robison D.O.; Physician,Non-Staff M.DRosa [place] [address] Patient Name: MEENA LUCERO MRN: [facility]:[id number] date: 1995 Sex: F Assigned Patient Location: Current Patient Location: [facility] Accession/Order Number: [id number] Exam Date: 01/16/2025 11:08 Report Date: 01/16/2025 [...] Marlene Orellana M.D.01/16/2025 11:19 AM Dictation Location: [place] [address] Electronically authenticated by: [id number] Y Date: 01/16/2025 11:19 Dictated By: Marlene Orellana M.D. Signed By: 01/17/25 1034 DD/ 1119 TD/TT: Surveying Crew Stake Runner: [facility] Radiology, Radiologist, - 01/17/2025 [place] [address] Ultrasound Report Signed Patient: MEENA LUCERO MR#: [id number] : 1995 Acct:[id number] Age/Sex: 29 / F ADM Date: 01/16/25 Loc: US Attending Dr: Gary Robison D.O. Ordering Physician: Gary Robison D.O. Date of Service: 01/16/25 Procedure(s): US OB placenta Accession Number(s): [id number] cc: Gary Robison D.O.; Physician,Non-Staff Del The [place] [address] Patient Name: MEENA LUCERO MRN: [facility]:[id number] date: 1995 Sex: F Assigned Patient Location: Current Patient Location: [facility] Accession/Order Number: [id number] Exam Date: 01/16/2025 11:08 Report Date: 01/16/2025 [...] Marlene Orellana M.D.01/16/2025 11:19 AM Dictation Location: [place] [address] Electronically authenticated by: [id number] Y Date: 01/16/2025 11:19 Dictated By: Marlene Orellana M.D. Signed By: 01/17/25 1034 DD/ 1119 TD/TT: Surveying Crew Stake Runner: [facility] [employer] OB PLACENTAOrdered By: Ra duncan Radiology on 01-17-2025 [facility] Work Phone: No Panel Informationon 01-16 Radiology Study observation (narrative) [facility] [employer] OB GROWTHon 01-16-2025 [place] [address] Ultrasound Report Signed Patient: MEENA LUCERO MR#: [id number] : 1995 Acct:[id number] Age/Sex: 29 / F ADM Date: 01/16/25 Loc: US Attending Dr: Gary Robison D.O. Ordering Physician: Gary Robison D.O. Date of Service: 01/16/25 Procedure(s): US OB growth Accession Number(s): [id number] cc: Gary Robison D.O.; Physician,Non-Staff Del [address] [address] Patient Name: MEENA LUCERO MRN: [id number] date: 1995 Sex: F Assigned Patient Location: Current Patient Location: Accession/Order Number: [id number] Exam Date: 01/16/2025 11:08 Report Date: 01/16/2025 [...] Marlene Orellana M.D.01/16/2025 11:19 AM Dictation Location: [place] [address] Electronically authenticated by: [id number] Y Date: 01/16/2025 11:19 Dictated By: Marlene Orellana M.D. Signed By: 01/16/25 1122 DD/ 1119 TD/TT: Surveying Crew Stake Runner: [facility] Radiology, Radiologist, - 01/16/[address] [address] Ultrasound Report Signed Patient: MEENA LUCERO MR#: [id number] : 1995 Acct:[id number] Age/Sex: 29 / F ADM Date: 01/16/25 Loc: US Attending Dr: Gary Robison D.O. Ordering Physician: Gary Robison D.O. Date of Service: 01/16/25 Procedure(s): US OB growth Accession Number(s): [id number] cc: Gary Robison D.O.; Physician,Non-Staff Del [place] [id number] Patient Name: MEENA LUCERO MRN: [facility]:[id number] date: 1995 Sex: F Assigned Patient Location: Current Patient Location: US Accession/Order Number: [id number] Exam Date: 01/16/2025 11:08 Report Date: 01/16/2025 [...] Marlene Orellana M.D.01/16/2025 11:19 AM Dictation Location: [place] Electronically authenticated by: [id number] Y Date: 01/16/2025 11:19 Dictated By: Marlene Orellana M.D. Signed By: 01/16/25 1122 DD/ 1119 TD/TT: Surveying Crew Stake Runner: [facility] OB GROWTHOrdered By: Braxton ologrolo Radiology on 01-16-2025 [facility] [employer] Work Phone: Urinalysis macro (dipstick) panel (U)on 01-16-2025 Bilirubin, UA Negative Negative - 4(70) +++ mg/dL [facility] Blood, UA Negative Negative - 50 Darnell/mcL [facility] Clarity, UA Clear [facility] Color, UA Yellow [facility] Glucose, UA Negative Negative - 1999(110) ++++ mg/dL [facility] Interpretation and review of laboratory results Abnormal [facility] Ketones, UA Negative Negative - 160(16) ++++ mg/dL [facility] Leukocytes, UA Moderate Negative - 500+++ Shona/mcL [facility] Nitrite, UA Negative Negative - Positive [facility] pH, UA 7 5 - 9 [facility] Protein, UA Negative Negative - 1999(20) ++++ mg/dL [facility] Spec Grav, UA 1.015 1 - 1.03 [facility] Urobilinogen, UA 0.2 0.2 - 12 mg/dL [facility] ALL PLATELET COUNTon 025 Interpretation and review of laboratory results Abnormal [facility] TBH PLT 139 Low [facility] ALL CBC WITH AUTO DIFFon BASOPHILS ABSOLUTE AUTO 0 [facility] Basophils/100 WBC (Bld) 0.2 % 0.2 - 2.0 % [facility] Eosinophils/100 WBC (Bld) 0.9 % 0.9 - 7.0 % [facility] Erythrocyte distribution width (RBC) [Ratio] 13.2 % 11.0 - 15.0 % [facility] Hematocrit (Bld) [Volume fraction] 34.6 % Low 36.0 - 48.0 % [facility] [employer] Hemoglobin (Bld) [Mass/Vol] 11.5 g/dL Low 12.0 - 16.0 g/dL [facility] IMMATURE GRANULOCYTES ABS AUTO 0.02 [facility] Immature granulocytes/100 WBC (Bld) 0.3 % 0.0 - 0.5 % [facility] Interpretation and review of laboratory results Abnormal [facility] LYMPHOCYTES ABSOLUTE AUTO 1.3 [facility] Lymphocytes/100 WBC (Bld) 22 % 20.5 - 60.0 % [facility] MCH (RBC) [Entitic mass] 28.8 pg 26.7 - 34.0 pg [facility] MCHC (RBC) [Mass/Vol] 33.2 g/dL 29.9 - 35.2 g/dL [facility] MCV (RBC) [Entitic vol] 86.5 fL 81.0 - 99.0 fL [facility] MONOCYTES ABSOLUTE AUTO 0.4 [facility] Monocytes/100 WBC (Bld) 7.2 % 1.7 - 12.0 % [facility] NEUTROPHILS ABSOLUTE AUTO 4 [facility] Neutrophils/100 WBC (Bld) 69.4 % 43.0 - 75.0 % [facility] Platelet mean volume (Bld) [Entitic vol] 11.7 fL 9.5 - 13.5 fL [facility] TBH EO # 0.1 [facility] TB PLT 117 Low [facility] TBH RBC 4 Low [facility] TBH WBC 5.7 [facility] Urinalysis macro (dipstick) panel (U)on 12-19-2024 Bilirubin, UA Negative Negative - 4(70) +++ mg/dL [facility] Blood, UA Negative Negative - 50 Darnell/mcL [facility] Clarity, UA Clear [facility] re Color, UA Yellow [facility] Glucose, UA Positive Negative - 1999(110) ++++ mg/dL [facility] Comment on above: 100 mg Interpretation and review of laboratory results Abnormal [facility] Ketones, UA Negative Negative - 160(16) ++++ mg/dL [facility] Leukocytes, UA Positive Negative - 500+++ Shona/mcL [facility] Comment on above: small Nitrite, UA Negative Negative - Positive [facility] pH, UA 7 5 - 9 [facility] Protein, UA Negative Negative - 1999(20) ++++ mg/dL [facility] Spec Grav, UA 1.02 1 - 1.03 [facility] Urobilinogen, UA 0.2 0.2 - 12 mg/dL [facility] Urinalysis macro (dipstick) panel (U)on 11-20-2024 Bilirubin, UA Negative Negative - 4(70) +++ mg/dL [facility] Blood, UA Negative Negative - 50 Darnell/mcL [facility] Clarity, UA Clear [facility] [place] re Color, UA Yellow [facility] Est[facility] e Glucose, UA Negative Negative - 1999(110) ++++ mg/dL [facility] Interpretation and review of laboratory results Abnormal [facility] re Ketones, UA Negative Negative - 160(16) ++++ mg/dL [facility] Leukocytes, UA Positive Negative - 500+++ Shona/mcL [facility] Comment on above: small Nitrite, UA Negative Negative - Positive [facility] pH, UA 7.5 5 - 9 [facility] Protein, UA Negative Negative - 1999(20) ++++ mg/dL [facility] Spec Grav, UA 1.015 1 - 1.03 [facility] Urobilinogen, UA 0.2 0.2 - 12 mg/dL [facility] HealthThermaSource e IGP,APTIMA HPV,AGE GDLNon AGE GDLN ACOG TESTING Note . [facility] Comment on above: TESTS RESULT FLAG UN ITS REF RANGE LAB Clinician Provided Cytology Information Source.............Cervix No. of containers..01 ThinPrep Vial Age Algo ACOG Subha... -20 12 FLAG LEGEND: L-Low Normal,H-High Normal,LL-Alert Low,HH-Alert High <-Panic Low,>-Panic High,A-Abnormal,AA-Critical Abnormal Performed at: 01 =G [facility] [address] [place] [address] Yulisa Mustafa MD, IGP, RFX APTIMA HPV ASCU Note . [facility] Comment on above: TESTS RESULT FLAG UN ITS REF RANGE LAB DIAGNOSIS: 02 NEGATIVE FOR INTRAEPITHELIAL LESION OR MALIGNANCY. FUNGAL ORGANISMS MORPHOLOGICALLY CONSISTENT WITH FELIPE SPECIES ARE PRESENT. Specimen adequacy: 02 Satisfactory for evaluation. Endocervical and/or squamous metaplastic cells (endocervical component) are present. Performed by: 02 Susan Boucher, Senior Marketing Specialist ([facility]) . 02 Note: Note 03 The [...] <-Panic Low,>-Panic High,A-Abnormal,AA-Critical Abnormal Performed at: [address] [place] [address] Pily Shields PhD, [address] [address] Yulisa Mustafa MD, Performed at: =[facility] [id number] Ham Pumper: Yulisa Mustafa MD, Phone: [phone] Performed at: [address], [place] [id number] Ham Pumper: Pily Shields PhD, Phone: [phone] SPATULA-ALONE CERVIX [facility] e RECURRENT VAGINITIS (HTRX)on 10-18-2024 ATOPOBIUM VAGINAE 0 [facility] ATOPOBIUM VAGINAE Not detected [facility] BVAB 2,3 (BACTERIAL VAGINOSIS ASSOCIATED BACTERIA 2, 3); MOBILUNCUS SPP 0 [facility] BVAB 2,3 (BACTERIAL VAGINOSIS ASSOCIATED BACTERIA 2, 3); MOBILUNCUS SPP Not detected [facility] FELIPE ALBICANS, PARAPSILOSIS, TROPICALIS 0 [facility] FELIPE ALBICANS, PARAPSILOSIS, TROPICALIS Not detected [facility] FELIPE GLABRATA 0 [facility] FELIPE GLABRATA Not detected [facility] FELIPE KRUSEI [facility] FELIPE KRUSEI Not detected [facility] lthcare CHLAMYDIA TRACHOMATIS 0 [facility] CHLAMYDIA [...] Healthcare TRICHOMONAS VAGINALIS Not detected [facility] Healthcar e Urinalysis macro (dipstick) panel (U)on 10-17-2024 Bilirubin, UA Negative Negative - 4(70) +++ mg/dL [facility] Comment on above: n Blood, UA Negative Negative - 50 Darnell/mcL [facility] Healthcare Clarity, UA Clear [facility] re Color, UA Yellow [facility] Healthcar e Glucose, UA Negative Negative - 1999(110) ++++ mg/dL [facility] Interpretation and review of laboratory results Normal [facility] re Ketones, UA Negative Negative - 160(16) ++++ mg/dL [facility] Leukocytes, UA Negative Negative - 500+++ Shona/mcL [facility] Nitrite, UA Negative Negative - Positive [facility] pH, UA 6 5 - 9 [facility] Healthcar e Protein, UA Negative Negative - 1999(20) ++++ mg/dL [facility] Spec Grav, UA 1.03 1 - 1.03 [facility] Urobilinogen, UA 0.2 0.2 - 12 mg/dL [facility] Healthcar e Urinalysis macro (dipstick) panel (U)on 09-18-2024 Bilirubin, UA Negative Negative - 4(70) +++ mg/dL [facility] Blood, UA Negative Negative - 50 Darnell/mcL [facility] Clarity, UA Clear [facility] re Color, UA Yellow [facility] Health[facility] e Glucose, UA Negative Negative - 1999(110) ++++ mg/dL [facility] Interpretation and review of laboratory results Normal [facility] re Ketones, UA Negative Negative - 160(16) ++++ mg/dL [facility] Leukocytes, UA Negative Negative - 500+++ Shona/mcL [facility] Nitrite, UA Negative Negative - Positive [facility] pH, UA 6.5 5 - 9 [facility] Healthcar e Protein, UA Negative Negative - 1999(20) ++++ mg/dL [facility] Spec Grav, UA 1.015 1 - 1.03 [facility] Urobilinogen, UA 0.2 0.2 - 12 mg/dL [facility] BOX TESTon 09-11-2024 BOX TEST SENT OUT [employer] [facility] BOX1 [facility] Healthcar e BOX2 11/11/24 [facility] HealthThermaSource e Tap [employer] Tap [facility] Healthcar e HCG ( test) Ql (U)o n 08-18-2024 Interpretation and review of laboratory results Abnormal [facility] Healthca re Preg Test, Ur Positive [facility] Healthcar e Urinalysis macro (dipstick) panel (U)on 08-18-2024 Bilirubin, UA Negative Negative - 4(70) +++ mg/dL [facility] Blood, UA Negative Negative - 50 Darnell/mcL [facility] Clarity, UA Clear [facility] re Color, UA Yellow [facility] e Glucose, UA Negative Negative - 1999(110) ++++ mg/dL [facility] Interpretation and review of laboratory results Abnormal [facility] re Ketones, UA Negative Negative - 160(16) ++++ mg/dL [facility] Leukocytes, UA Negative Negative - 500+++ Shona/mcL [facility] Nitrite, UA Positive Negative - Positive [facility] Comment on above: small pH, UA 7.0 5 - 9 [facility] e Protein, UA Negative Negative - 1999(20) ++++ mg/dL [facility] Spec Grav, UA 1.015 1 - 1.03 [facility] Urobilinogen, UA 0.2 0.2 - 12 mg/dL [facility] Healthcar e ALL HCG, QUANTITATIVEon 07-23 Interpretation and review of laboratory results Abnormal [facility] re MHPT HCG, QUANT 26527.0 High NINF [facility] thcare Comment on above: Non-preg premeno <=5 Postmeno <=8 Male <=3 If HCG results do not concur with clinical observations, additional testing to confirm results is recommended. Original Ordering Provider: GARY MEI [facility] Healthcar e HCG, Quanton 08-07-2024 HCG, Quant 10175.0 mIU/mL High <5 [facility] Comment on above: Result Comment: Non-preg premeno <=5 Postmeno <=8 Male <=3 If HCG results do not concur with clinical observations, additional testing to confirm results is recommended. Performed By: #### B HCG #### [facility] [address] [place] [address] Ham Pumper: Armen Madrigal MD HCG, Quantitative, on 08-07-2024 [place] [address].0 m[IU]/mL High NINF [facility] Comment on above: Non-preg premeno <=5 Postmeno <=8 Male <=3 If HCG results do not concur with clinical observations, additional testing to confirm results is recommended. Interpretation and review of laboratory results Abnormal [facility] ALL HCG, QUANTITATIVEon 07-23 Interpretation and review of laboratory results Abnormal [facility] re MHPT HCG, QUANT 1366.0 High NINF [facility] Comment on above: Non-preg premeno <=5 Postmeno <=8 Male <=3 If HCG results do not concur with clinical observations, additional testing to confirm results is recommended. Original Ordering Provider: GARY AGUILAR DO [facility] Health[facility] e HCG, Quanton 08-02-2024 HCG, Quant 1366.0 mIU/mL High <5 [facility] Comment on above: Result Comment: Non-preg premeno <=5 Postmeno <=8 Male <=3 If HCG results do not concur with clinical observations, additional testing to confirm results is recommended. Performed By: #### B HCG #### [facility] [address] [place] [address] Ham Pumper: Armen Madrigal MD ALL HCG, QUANTITATIVEon Interpretation and review of laboratory results Abnormal [facility] re MHPT HCG, QUANT 506.3 High [facility] Comment on above: Non-preg premeno <=5 Postmeno <=8 Male <=3 If HCG results do not concur with clinical observations, additional testing to confirm results is recommended. Original Ordering Provider: GAYR HARRELLCHI [facility] HCG, Quanton 07-31-2024 HCG, Quant 506.3 mIU/mL High <5 [facility] Comment on above: Result Comment: Non-preg premeno <=5 Postmeno <=8 Male <=3 If HCG results do not concur with clinical observations, additional testing to confirm results is recommended. Performed By: #### B HCG #### [facility] [address] [place], [place] [id number] Ham Pumper: Armen Madrigal MD HCG, Quantitative, on 07-31-2024 HCG.beta subunit Qn 506.3 m[IU]/mL High NINF B ON [facility] Comment on above: Non-preg premeno <=5 Postmeno <=8 Male <=3 If HCG results do not concur with clinical observations, additional testing to confirm results is recommended. Interpretation and review of laboratory results Abnormal [facility] ALL HCG, QUANTITATIVEon Interpretation and review of laboratory results Abnormal [facility] re MHPT HCG, QUANT 200.3 High NINF [facility] Comment on above: Non-preg premeno <=5 Postmeno <=8 Male <=3 If HCG results do not concur with clinical observations, additional testing to confirm results is recommended. Original Ordering Provider: GARY FOSTERO [facility] HCG, Quanton 07-29-2024 HCG, Quant 200.3 mIU/mL High <5 [facility] Comment on above: Result Comment: Non-preg premeno <=5 Postmeno <=8 Male <=3 If HCG results do not concur with clinical observations, additional testing to confirm results is recommended. Performed By: #### B HCG #### [facility] [address] [place], [place] [id number] Ham Pumper: Armen Madrigal MD ALL HCG SERUM,QUALITATIVEon 07-27-2024 Interpretation and review of laboratory results Abnormal [facility] MHPT HCG SCREEN, BLOOD Positive Abnormal NEG [facility] Healthcare Comment on above: If HCG results do not concur with clinical observations, additional testing to confirm result is recommended. This test is not labeled for use as a tumor marker. [facility] has confirmed the use of plasma for this test. This has not been cleared or approved by the U.S. Food and Drug Administration. The FDA has determined that such clearance is not necessary. Original Ordering Provider: GARY MEI [facility] HCG Screen, Bloodon 07-27-20 24 HCG Screen, Blood Positive Abnormal NEG [facility] Comment on above: Result Comment: If HCG results do not concur with clinical observations, additional testing to confirm result is recommended. This test is not labeled for use as a tumor marker. [facility] has confirmed the use of plasma for this test. This has not been cleared or approved by the U.S. Food and Drug Administration. The FDA has determined that such clearance is not necessary. Performed By: #### H CG #### [facility] [address] [place], [place] [id number] Ham Pumper: Armen Madrigal MD HCG, Quanton 07-27-2024 HCG, Quant 73.4 mIU/mL High <5 [facility] Comment on above: Result Comment: Non-preg premeno <=5 Postmeno <=8 Male <=3 If HCG results do not concur with clinical observations, additional testing to confirm results is recommended. Performed By: #### B HCG #### [facility] [address] [place] [address] Ham Pumper: Armen Madrigal MD HCG, Quanton 06-08-2024 HCG, Quant <1.0 Normal <5 [facility] Comment on above: Result Comment: Non-preg premeno <=5 Postmeno <=8 Male <=3 If HCG results do not concur with clinical observations, additional testing to confirm results is recommended. Performed By: #### B HCG #### [facility] [address] [place] [address] Ham Pumper: Armen Madrigal MD XR SACRUM COCCYX (MIN 2 VIEW S)on 05-24-2024 XR SACRUM COCCYX (MIN 2 VIEWS) HISTORY: Sacral pain. TECHNIQUE: 3 views sacrum and coccyx. COMPARISON: None. FINDINGS: Sacroiliac joints are normal. No fracture or acute osseous abnormality is identified. IMPRESSION: No acute process. Interpreted by: Parker Coleman MD Signed by: Parker Coleman MD 05/24/24 Final result Normal [facility] HCG, Quanton 03-04-2024 HCG, Quant 3680.0 mIU/mL High <5 [facility] Comment on above: Result Comment: Non-preg premeno <=5 Postmeno <=8 Male <=3 If HCG results do not concur with clinical observations, additional testing to confirm results is recommended. Performed By: #### B HCG #### [facility] [address] [place] [address] Ham Pumper: Armen Madrigal MD Cytology Cervical or vaginal smear or scraping studyon 05-26-2023 [facility] e RAD - MISCon 02-01-2023 RAD - MISC [id number] #1.00CD:127 Normal [facility] XR ANKLE RIGHT (MIN 3 VIEWS) on 01-29-2023 FINDINGS/IMPRESSION: 1. Compression fracture tip of the fibula no longer separately seen. 2. Anatomic alignment throughout. 3. Soft tissue swelling has resolved. [facility] EXAM: XR ANKLE RIGHT (MIN 3 VIEWS). HISTORY: Other closed fracture of proximal end of right fibula with routine healing, subsequent encounter. COMPARISON: 01/10/2023. [facility] Mauro Anton Jr., MD - 01/29/2023 EXAM: XR ANKLE RIGHT (MIN 3 VIEWS). HISTORY: Other closed fracture of proximal end of right fibula with routine healing, subsequent encounter. COMPARISON: 01/10/2023. IMPRESSION: FINDINGS/IMPRESSION: 1. Compression fracture tip of the fibula no longer separately seen. 2. Anatomic alignment throughout. 3. Soft tissue swelling has resolved. Friday Phone: Radiology Study observation (narrative) Friday Phone: XR ANKLE RIGHT (MIN 3 VIEWS) Ordered By: Mauro Anton on 01-29-2023 Phone: RAD - MISCon 01-11-2023 RAD - MISC [id number] #1.00CD:127 Normal [facility] XR ANKLE RIGHT (MIN 3 VIEWS) on 01-10-2023 FINDINGS/IMPRESSION: 1. Very small nondisplaced incomplete fracture is questioned in the distal tip of the right fibula, with mild surrounding soft tissue swelling. 2. No other fracture, malalignment, significant arthritis or acute bony abnormality is seen. [facility] CLINICAL HISTORY: Right ankle pain and swelling since an injury yesterday. RIGHT ANKLE 3 VIEWS: [facility] João Amezquita MD - 01/10/2023 CLINICAL HISTORY: Right ankle pain and swelling since an injury yesterday. RIGHT ANKLE 3 VIEWS: IMPRESSION: FINDINGS/IMPRESSION: 1. Very small nondisplaced incomplete fracture is questioned in the distal tip of the right fibula, with mild surrounding soft tissue swelling. 2. No other fracture, malalignment, significant arthritis or acute bony abnormality is seen. Friday Phone: Radiology Study observation (narrative) Friday Phone: XR ANKLE RIGHT (MIN 3 VIEWS) Ordered By: João Amezquita on 01-10-2023 Phone: Ambulatory Visit Summaryon 0 12-08-2022 Ambulatory Visit Summary MEENA LUCERO Lissa :1995 Visit Date:12/08/2022 Ambulatory Visit Instructions Your Diagnosis Gastroenteritis due to Broadview-like virus Obesity due to excess calories BMI 31.0-31.9,adult Your Care Team Attending Physician - SUSAN BENAVIDEZ, [facility] Primary Care Physician - Charli LOPEZ This [...] to 60 minutes before meals Pickup at [facility] Unchanged multivitamin, ( Multivitamins with Vitamin B Complex, Vitamin C, Minerals and L-Methylfolate oral capsule) 1 Capsules By Mouth Every day Contact prescribing physician if questions or concerns Unchanged ondansetron (Zofran ODT 4 mg Tab-Dis) 1 Tablets By Mouth 3 times a day Contact prescribing physician if questions or concerns Pharmacy Information [facility]: [address], [place] [id number] [phone] Medications and Immunizations Administered Not Given influenza virus vaccine, inactivated, Postpone due to refusal SARS-CoV-2 mRNA (tozinameran 5y-11y) vac, Postpone due to refusal Allergies Percocet 5/325 (Hives, Rash) Vicodin (Hives) codeine (Hives, Rash) Problems Ongoing - Any problem that you are currently receiving treatment for. BMI 31.0-31.9,adult Gastroenteritis due to Broadview-like virus Non-smoker Obesity due to excess calories [...] immune system (more content not included)... Normal [facility] ED Note-Physicianon 12-08-19 ED Note-Physician [id number] #1.00CD:127 Normal [facility] Family Medicine Office/Clini c Noteon 12-08-2022 [...] influenza and COVID. 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 Gastroenteritis due to Broadview-like virus (A08.8: Other specified intestinal infections) Viral [...] day(s), # 30 tab(s), Refills(s) 0, Pharmacy: [facility], 170, cm, 12/08/22 12:00:00 EST, Height/Length Dosing, 90.5, kg, 12/08/22 12:00:00 EST, Weight Dosing Follow-up With When Contact Information SUSAN BENAVIDEZ, KANDY Caban Only if needed Additional Instructions: Patient Education Viral Gastroenteritis, Adult Problem List/Past Medical History Ongoing BMI 31.0-31.9,adult Gastroenteritis due to Broadview-like virus Non-smoker Obesity due to excess calories [...] Alcohol Use, 05/26/2017 Employment/School 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 Normal [facility] Comment on above: Result Comment: Elec [...] and water are not available, use hand cottage master. ? Make sure that all people in your household wash their hands well and often. ? Take dfhd-hzy-sdtqwtm and prescription medicines only as told by [...] to person (more content not included)... Normal [facility] COVID-19, Rapidon 12-04-2022 SARS-CoV-2 (COVID-19) RNA [...] management decisions. Fact sheet for Healthcare Providers: https://www.fda.gov/media/756088/download Fact sheet for Patients: https://www.fda.gov/media/602292/download Methodology: Isothermal Nucleic Acid Amplification Specimen Description .NASOPHARYNGEAL SWAB [facility] Rapid influenza A/B antigens on 12-04-2022 [...] This test was performed at: [facility], [address] [place] [address], [address] [place] [address], [facility] Comment on above: Performed By: #### 2 [id number], [id number], [id number] ####[facility] [address] [place] [address] Coding Summary.on 09-04-2022 Coding Summary. CD:[id number] Gh0bWw+PGhlYWQ+PE1FV UEbY50qkYPaxJ8TA8aZY U3UBMNXPUMUPQ7HFN7bd CN6OQaoY1SbumWs TenxpXGlXA45XEc9VHF6 oVuwUWoozL3kqCCtT0f8 ItSkJZ64vG41JDczTEHn XzT1NlIbnifohDTw Y0tcWjOmbJYuFcz+PHRh YmxlIHdpZHRoPScxMDAl KoHaoNqtIX7aEo7gFKPo LWNvbGxhcHNlOiBj z3arEIQdWAeaPZ7qyNfu M1QejJX4KDRlf9j2Uz21 dHI+DXTiIJI8nXgcINpq d881AiTve1haWNX4 pNZjKCcqVTO0S03kw1C7 YLUgXVPzARW4uHJ5eN4w rMqcaattW8QnfPJiXmD8 KQG8dNDbzR1igVdr xnhzuM1qZvn+F97STF2V OYQZQX0ETmv7M6BgAart dHI+IA25SQIrHI38jCGe zLPck2ufzJh0CiJu MVNrSLL0gUuuSYuij2Yn MYDhW16wcBFeq7M5OMGh aTrlhIHqTaApsYI4tR1f EKigeybsc6wexkhz Fcghf4mtsk95bL35Y20t SQreNHNxGCC5RXFbIMHm gOfyug9frQ9wNv7+IDxj a2qmy3tsuEd3JnVi BLAgzeNxmGolWIG0m0Qo Zs74O2FltGsta8SqEfk8 hx30rWVtt6J9hTN6TMxp GQLxeC4tWOmnHzB9 RIKoNnRgxN53pZNsSMtc Vt0buBszvRmbYV2qYLPp exnyVAPdeX7eBEFctUDv vWjgIH8nVYPbjgts c596BuHdRAR7CJNpeUBh T0LwiT8cXwJqYHGdSHGo X3UdvEQgZHilI705EUtb IwG3QAAossNiB2Ii VJDduCozWdY9c4R8Tz2I c8AzjcroLBC5PZmrZDBy TrZ9SdAbHpL2N0YuTcq5 HEOchCdtXU2mI7Ev KVLcbrmuzxppgGV8FYHu JAJuvM11fELzEUssJm8p c5Q6o238FJKlPVIjpT62 Kq0vtSiqSHHakYJB gX1qahsiy5tdaehtAyQx LAZiQKh8IYr1GJBodUro YtBvZAF8GbI0NGH0pYMd mV4xcKpsjmifjJ1p Oyc+P61ufA0hRZA1CFH5 mvqaNBBgkiIzHE65YD76 O1HaGtkqmFMwmPM+PGRp mmCnoBzsKX9wCfWs z0wmf3KqBGshX2HsNNHg BNrqLje9QXQgSUC7wNM0 hH4tBHAeFSrec1M6xAY3 S5IkpyZgkb3br3dc QUPrFTwyZ20qlATxb6B7 OWMutAK0UGThcBpoIjRd uY33Lmh+QCPvwFejl0Rm Zajbj8iqs6mmfUb6 IjMwJSIgdmFsaWduPSJ0 x9BqWa87K09qXEgpIKEx GVOfNBKlBIDrvEhygi6v tH4jHe8+PGNvbCB3 fMY6dJ6nJFCtBmF3SFiu X272HpKlvLRdYvlcn2pi a9ucwWb5UkMwCHJqktLi wTngFBT3m7PzMv47 S91uVYzhKDEwMUPnMKUw IBErkSyjce8xyV3nLr3+ QK0pz8bpvi19mR65xQB+ MOGcNWC7pDvcVZeh FMPcqL3uERimKqJ8EKVi ZeCduL56yENuMIwjXn3e gDgzxTniBS8mJGZotbcz x896MqNxs4hoWIEt yNLdHQnkIJX5R07wa2P8 AHKwTPHuHMS0yVD8yG7x bGlnbjogbGVmdDsgdmVy iYddHYclBQwfQ510 IHRvcDsnPlBhdGllbnQg HpYdSRp9V6BdVjh5XFYi rLjqVB9tqURaVGvkUz5s dLjttGszAF0wHIZo vnokh230SuLxl0izOQRy wDMvLVaoIOH0I47cp6H8 RANgGUWxGBF9zBW2lH4g bGlnbjogbGVmdDsg zrZbjOkqSKepQPtqN379 IHRvcDsnPkJpcnRoIERh xMO6WJ08KT14jJWvv4U4 zQD9X1QuMQJjvtfj lgjddSM6YIDhKHLycM55 Kx5lxIidHl1eOWDwDPZ9 VZUjePHbW7EhtG8fNmHc LGOoDFGkP8AyaWBj PCzoX223FNzpUpQ7KLVp bbCdA0SmHWEyaHzbKpX0 o7B0Tx5HI6P0JZ59XO29 hKLqc9M0vLP2A0Ww LQRpjxwwihqtlDT3TIRk CPKhdM41Cx9hvDokTp1r ZMIqXXB0EMVmtFDaM1Hb zU4cMdPdDUTmWOYl C1PxbRUeENktA870RBkl EwC5YBLndfBwN0AcSAVg jLswJwS1i6B6Xh7OVVp1 AI69FS25hUJll5F1 hFR6U5VxSAJjifkgijlb wVM7GEClHPWuyF18Kh1r xEkdXy3pKHXeJDF3DCFb aPHwZ3ChcU3uSeBh YHHqIGWfP2MlpCYbPIvl W019BZzgVrD9FEOwvcDz Q2YfKDUlkGoiVlR2e0Z8 Du7ZHIMjRI99BWL0 qQC8YL61KN59Y9TcXjoe dGFibGU+PHRhYmxlIHdp ZHRoPScxMDAlJyBzdHls RA5vEl6zSYRcBRLh aKqcyRZkByZgl2qkTWXl QMebWL2ftAdsJ9XsvFX3 BMQog7l1Tw72X45rI3Mo dXA+FHKqaQV3kSN8 nI9fTxKtElY1SXagJ088 ScAxcXCtDqoks9vbc0ym xKt9PwL6THLzodMveEbg MHA3o9DfLe56M66o IHdpZHRoPSIxNSUiIHZh wHcvas9cdL5pYv8+PGNv zAI7zKV4nZ5vDzKwOtF0 QEgiW638FyRtbYXu Lnoad3qex6ztoXn8CgLu ZIEspdTdbWagRLU5a8We Xp34M9HyeNfyp2UbWww5 fg67xMDra3O8bWA0 I0KrFATkejpzzTNmlUnt ZQ3gIQWtdqpxBDJsiE2r DIDvP0a6UxCzVfE5VLjx D5TsrqC7WQDxtMTp WVmfPCF4K99uu4Y6WSBh KYDoNJU0cFK4yG9luQgl bjogbGVmdDsgdmVydGlj OGdpTIrpJ738HVRd vYwfONNduF2rFDYukLPm zEjzFW4wMXJlgkirZqCS Xx0JUNMyWJvMBGxRXV3x RTwvdGQ+PHRkIHN0 lWrhWKdqGZVgwM0eZZTc X6t9BsUjVnX3IVumC1Ra XKKgnpqzJq08yW8wWmXn JtD8DXyyQ7NimyR9 FQLzfQWlLAuiEFJ1H99i l8I5UBAhKIMbPIA6lAL5 qL9juThewoqjcHWfdMha dmVydGljYWwtYWxp D664VTQqvIzbJqUgGeL0 NyN2ZPW1R3JdDeq3MXGm xXbzDJ7asIEmWPusOg3k wKnlfWvkKC4yOPRe osojVILtnM9gCAKplSXg uEasCS8qRCIetqdja296 MxYrOTY8TEBblJOsT7Pc tB8qWjJcHGUeTISm U9RxlEObLGdeR143YSmk YkW9SWNpvzIyC4QpKMYl hXfwWdG7o0W6Jj9dLaEB ZWFyczwvdGQ+PHRk MOP7cRvcVXknKSQdvY7o UVAaG2h7YuRkSfV4HOit A2RsAJBphhjjHf06yK4c AbYbSvB1FDdxD0Jj wyH7HLVwhYRgKNruNMG2 R74ut1T3MXKpXXEmTNH2 hCE0wM9muQrqzbegrAIe dDsgdmVydGljYWwt PVomO323KQMgvCkgOgMf bWFsZTwvdGQ+PHRkIHN0 xVkiWNooWTNtnV0aGKFj S8z4XuNfBjW3MClv G0NbLIBrqarlJl62fH4k AmYlZwS2IVyhC9PpysS4 VKOnvZGqZUvwTAN6G96a i3B5FPStUNFxIRR4 nLL8lI5ejGmxfxejpXAa dDsgdmVydGljYWwtYWxp X800JGWyrWycWzAxYQUj TN8svLfxzNK+PC90 em42W2LhIpryIsg7WLXr BTA6cZJ6uO8zTCKiASzd p0D7yND6P9MbpgOnea5v m5yeNVQtLFbgQ05k tPJmd1F3RMTpcSI8ZLXl hAmpUbLrpT98Bvp+PGNv gVmzo1UfYooaz6qpq1hk dEp8AwQiGYBuzmGi iUrvJVX7t3KvMg92G47g IHdpZHRoPSIzMCUiIHZh zUzbem1qrW4fFy3+PGNv qWJ5cLE2dP9hWnKy LhE0SWjkV775ZfPlkCOa Hvhuw1vbh9lzxYl9FeLi UPRjreSpcSjzAXB7o0Mg Un01T8KcwBjnm0Pl Ggg1cz44oPBtj2S3eDE3 U9AzLVPfmkscoLDxrDwo NM9eXNChmublRMPwuS5v NJYgN3u5HoNhOlP3 XDeyH2TuhoP9FIBneBNv OZEmsVOZzK6tfqbvd3qm afzoWkUeSWNhONj6VYn2 LWFsaWduOiBsZWZ0 QoH6VXV4uTUicM0kcQhy egyfdA0bQoy+GJx4i6tu rEDvII1ssFE0ET90XJ77 oCSac6G7nFA8Z5Fo QVRdwwelxooqlOX8YOLa FFJqfN77Ny3dxFoaCu2o NSRcQBS2MBQimQDxO6Ew aB1yBkMqXVZnLTGf C2OjnQEpDBehW531FLic DuK2XKQrluYfS3FkFDSo yMkgJlD0a4R8Du5ICB72 XN31MD15aCSvt5R7 sTV7F3FdZOLfufjdcdwf aJC4OBZkTSDoqQ04Ii6y lFzvWt5wOFQzVDF7ONUc fVSwH6SaxG3dSjJo FBZkOUInD9NtzWJbGDvv V946TVioIzG0OEKtgsJv B6HyPJSdoAstAxW8l2U2 Ym9UQx86VE38QQ43 wNQlk1M8aHJ7B8FsNVWr whjrnygjpTQ1CEBzLBNi lT32Jy1qqZruSx8eYJWa HIU7BZYatXQgO6Kt uS3hIjGnVMQuGJJiH9Bt qBZgWCpzO061GIanCtB8 TWIzjvFoY5LbMVNmsEga JwB5e5N1Fd6YFVnq cjt8T1BsHmlisWZ+PC90 PRCoWD31jYIygHIoa0dw qRy0BeMzBJBqECI3uFeq QNfsk3FdVPDhL37v bGFw (more content not included)... [facility] Consent for Treatmenton 08-22 Consent for Treatment [id number] #1.00CD:127 [facility] Discharge Instructionson Discharge Instructions [id number] #1.00CD:127 [facility] ED Clinical Summaryon 2021 ED Clinical Summary [place] [id number] ED Clinical Summary Person Information Name: MEENA LUCERO/NewBharathi Age: 26 Years : 1995 Sex: Female [...] 09/03/2022 15:51:51 09/03/2022 15:51:51 09/03/2022 15:51:51 ADDRESS: [address] [place] [id number] PHYS DOC NOTES: MEDICAL INFORMATION: Prescriptions Given: New Medications [facility], [address], [place] [id number], [phone] ondansetron (Zofran ODT 4 mg Tab-Dis) 1 Tablets By Mouth 3 times a day. Refills: 0. Medications to Continue with No Changes Other Medications multivitamin, ( Multivitamins with Vitamin B Complex, Vitamin C, Minerals and L-Methylfolate oral capsule) 1 Capsules By Mouth every day. Refills: 0. PATIENT EDUCATION INFORMATION: Instructions: Nausea and Vomiting, Adult Follow up: With: Address: When: [place] [address] Business (1) In 3 days 09/06/2022 DIAGNOSIS: Nausea & vomiting Normal [facility] ED Note-Physicianon 09-03-20 ED Note-Physician Basic [...] TID, # 15 tab(s), Refills(s) 0, Pharmacy: [facility], 170, cm, 09/03/22 14:31:00 EDT, Height/Length [...] CARLSON In 3 days 09/06/2022 EDT [address] [place] [address]- Business (1) Additional Instructions: Patient Education Nausea and Vomiting, Adult Attestation Patient seen and evaluated by the physician mobile unit assistant. Attending physician was present in the emergency department and supervised care. This visit was performed by both the physician and an APC. I performed all aspects of the MDM as documented. This report was transcribed using voice recognition software. Every effort was made to ensure accuracy, however, inadvertently computerized liquor grinding mill operator mistakes may be present. Appropriate healthcare [...] (09/03/22 14:49:0 (more content not included)... Normal [facility] Comment on above: Result Comment: Elec [...] added (diluted fruit juice). ? Eat bland, gbfd-ma-ertiti foods in small amounts as you are able. These foods include bananas, applesauce, rice, lean meats, toast, and crackers. ? Avoid fluids that contain a lot of sugar or caffeine, such as energy drinks, sports drinks, and soda. ? Avoid alcohol. ? Avoid spicy or fatty foods. General instructions ? Take aamf-alz-bnqzvkk and prescription medicines only as told by your health care provider. ? Drink enough fluid to keep your urine pale yellow. ? Wash your hands often using soap and water. If soap and water are not available, use hand cottage master. ? Make sure that all people in [...] and drinking to prevent dehydration. ? Take vvay-rvt-rhfeiys and prescription medicines only as told by [...] 11/08/2006 Document Revised: 03/01/2020 Document Reviewed: 04/18/2019 [employer] Patient Education ? [address] Normal [facility] ED Patient Summaryon 022 ED Patient Summary [address] [address] Patient Discharge Instructions Person Information Name: MEENA LUCERO Age: 26 Years Arrival Date: 09/03/2022 14:27:10 Discharge Diagnosis: Nausea & vomiting Primary Care Physician: Charli LOPEZ Provider Information Primary Provider: Evan Moyer DO Advanced Sports Betting Manager:Neil Meza PA-C The exam and treatment you received in the Emergency Department were for an urgent problem and are not intended as complete care. It is important that you follow up with a doctor, nurse practitioner, or physician?s mobile unit assistant for ongoing care. If your symptoms become worse or you do not improve as expected and you are unable to reach your usual health care provider, you should return to the Emergency Department. We are available 24 hours a day. MEENA LUCERO Lissa has been given the following list of patient education materials, prescriptions and follow-up instructions: Follow-up Instructions: With: Address: When: Charli CARLSON [address] [place] [id number] Business (1) In 3 days 09/06/2022 In the event that this physician does not participate in your insurance network, please consult with your insurance company to find a nearby participating provider. Patient Education Materials: Nausea and Vomiting, Adult A MESSAGE TO ALL PATIENTS REGARDING OPIOIDS PRESCRIPTION OPIOIDS: WHAT YOU NEED TO KNOW Prescription opioids can be used to help relieve ynbtuafl-ph-vpczep pain and are often prescribed following a [...] be struggling with addiction, tell your health acute care certified nursing assistant and ask for guidance or call [facility]?S National Helpline at 6-956-595-RCOJ. Domain Surgical Source: Dep (more content not included)... Normal [facility] U BetaHcg Qualon 09-03-2022 HCG.beta subunit (U) [Moles/Vol] Negative Normal [facility] Comment on above: Performed By: #### 2 [id number], [id number], [id number] ####[facility] [address] [place] [address] UA With Cult Reflexon 2021 Bacteria LM Ql (Urine sed) 2+ /HPF Abnormal Trace [facility] Comment on above: Performed By: #### 2 [id number], [id number], [id number] ####[facility] [address] [place] [address] Bilirubin Ql (U) Negative Normal Negative [facility] Comment on above: Performed By: #### 2 [id number], [id number], 0155395 ####[facility] [address] [place] [address] Clarity (U) CLEAR Normal Clear [facility] Comment on above: Performed By: #### 2 [id number], [id number], 9127526 ####[facility] [address] [place] [address] Color (U) YELLOW Normal Yellow [facility] Comment on above: Performed By: #### 2 [id number], [id number], 2482657 ####[address] [address] Epithelial cells.squamous LM.HPF (Urine sed) [#/Area] 5-8 Normal 0-2 [facility] Comment on above: Performed By: #### 2 7761667, 13409016, 7667445 ####[place] [address] Glucose Test strip (U) [Mass/Vol] Negative Normal Negative [facility] Comment on above: Performed By: #### 2 2799726, 13725754, 2554953 ####[place] [address] Hemoglobin Ql (U) Negative Normal Negative [facility] Comment on above: Performed By: #### 2 4826073, 62113861, 5082676 ####[place] 2888357 Ketones (U) [Mass/Vol] Negative Normal Negative [facility] Comment on above: Performed By: #### 2 0957827, 06741858, 3860629 ####[place] [address] [place].plasma/Lith ium.RBC (Bld) [Mass ratio] 0-3 Normal 0-3 [facility] Comment on above: Performed By: #### 2 3415529, 41926324, 6291247 ####[place] 2[address]357 Mucus Ql (Urine sed) 1+ Normal [facility] Comment on above: Performed By: #### 2 8357431, 75987565, 9961838 ####[place] [address]357 Nitrite Ql (U) Negative Normal Negative [facility] Comment on above: Performed By: #### 2 7497404, 39180422, 0725578 ####[facility] [address] [place] [address] pH (U) 5.5 [pH] Invalid Interpretation Code 5.0-9.0 [facility] Comment on above: Performed By: #### 2 7702021, 74834103, 8115960 ####[address] [address] Protein (U) [Mass/Vol] Negative Normal Negative [facility] Comment on above: Performed By: #### 2 6143458, 75376147, 8206873 ####[address] [address] Specific gravity (U) [Rel density] >=1.030 Invalid Interpretation Code 1.005-1.030 [facility] Comment on above: Performed By: #### 2 7703748, 45230427, 2583551 ####[facility] [address] [place] [address] Type of Urine collection method Clean Catch Normal [facility] Comment on above: Performed By: #### 2 9186565, 37541706, 6397590 ####[address] [address] Urobilinogen Qn (U) 0.2 {Elver'U}/dL Normal 0.0-1.0 [facility] Comment on above: Performed By: #### 2 5248297, 25543385, 9220748 ####[address] [address] WBC Auto Ql (U) Negative Normal Negative [facility] Comment on above: Performed By: #### 2 0327870, 95597083, 3768116 ####[facility] [address] [place] [address] WBC LM.HPF (Urine sed) [#/Area] 0-5 Normal 0-5 [facility] Comment on above: Performed By: #### 2 2929449, 61501088, 9633489 ####[facility] [address] [place] [address] XR WRIST LEFT (MIN 3 VIEWS)o n 06-19-2022 Normal left wrist. [facility] EXAM: XR WRIST LEFT (MIN 3 VIEWS) HISTORY: M25.532. 26-year-old female, left wrist pain. COMPARISON: None. TECHNIQUE: Three views left wrist. FINDINGS: The radiocarpal joint and wrist are normal. Normal scapholunate distance. No erosion or chondrocalcinosis. [facility] Mauro Anton Jr., MD - 06/19/2022 EXAM: XR WRIST LEFT (MIN 3 VIEWS) HISTORY: M25.532. 26-year-old female, left wrist pain. COMPARISON: None. TECHNIQUE: Three views left wrist. FINDINGS: The radiocarpal joint and wrist are normal. Normal scapholunate distance. No erosion or chondrocalcinosis. IMPRESSION: Normal left wrist. 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 pain has been constant for about 1 week now. History of Present Illness Pt presents [facility]. Previous pt of [facility] in [place]. Concerned today about left wrist pain which started about 1 yr ago; pain has worsened over the last week. 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 Carries everything in her left hand. Right handed. Pain location: medial martinez hand, radiating to wrist Pain description: shooting Pain rated: 2/10, 7/10 with certain movements. 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 + Phalens. Systems Integration Engineer strength equal. Neurologic: Cranial nerves II-XII grossly intact. Skin: [place], warm and dry. No rashes, ulcerations, or [...] day(s), # 30 tab(s), Refills(s) 1, Pharmacy: [facility], 170, cm, 06/01/22 12:55:00 EDT, Height/Length Dosing, 91.3, kg, 06/01/22 12:55:00 EDT, Weight Dosing [facility] External Ambulatory Referral 2. BMI 31.0-31.9,adult (Z68.31: Body mass index [BMI] 31.0-31.9, adult) The standard range for ages 18 and older is >=18.5 and < 25 kg/m2. Your BMI today was above this range, this falls in the obese category and there are medical benefits to weight loss. We can offer counselling, referral, and/or medical support in addressing this problem. Visit [employer] for useful information to help make better [...] unspecified fo (more content not included)... Normal [facility] Comment on above: Result Comment: Elec [...] 07/20/2005 Document Revised: 10/21/2018 Document Reviewed: 09/21/2018 [employer] Patient Education ? 2020 [employer] Orthopedics Carpal Tunnel Syndrome Carpal tunnel [...] Having a job, such as being a industrial hygenist or a parimutuel ticket cashier, that requires you to repeatedly move [...] and midd (more content not included)... Normal [facility] Physician Referralon 022 Physician Referral [id number] #1.00CD:127 Normal [facility] Vital Signs Date Time Vital Sign Value Performing Clinician Ayad lozoya 02-28-2025 11:18-0400 Body mass index (BMI) [Ratio] 38.74 kg/m2 Shahab P. Tabatabai, Broker DO Work Phone: [facility] 02-28-2025 11:18-0400 Body weight 105.6 kg Shahab P. Tabatabai, Broker DO Work Phone: [facility] 02-28-2025 11:18-0400 Diastolic blood pressure 80 mm[Hg] Shahab P. Tabatabai, Broker DO Work Phone: [facility] 02-28-2025 11:18-0400 Systolic blood pressure 120 mm[Hg] Gary Enriqueta DO Work Phone: [facility] 02-13-2025 08:58-0400 Body mass index (BMI) [Ratio] 38.11 kg/m2 Shahab P. Tabatabai, Broker DO Work Phone: [facility] 02-13-2025 08:58-0400 Body weight 103.87 kg Gary Enriqueta DO Work Phone: [facility] 02-13-2025 08:58-0400 Diastolic blood pressure 74 mm[Hg] Gary Enriqueta DO Work Phone: [facility] 02-13-2025 08:58-0400 Systolic blood pressure 120 mm[Hg] Gary Enriqueta DO Work Phone: [facility] 01-16-2025 08:41-0500 Body mass index (BMI) [Ratio] 38.07 kg/m2 Gary Enriqueta DO Work Phone: [facility] 01-16-2025 08:41-0500 Body weight 103.78 kg Gary Enriqueta DO Work Phone: [facility] 01-16-2025 08:41-0500 Diastolic blood pressure 70 mm[Hg] Gary Enriqueta DO Work Phone: [facility] 01-16-2025 08:41-0500 Systolic blood pressure 110 mm[Hg] Gary Enriqueta DO Work Phone: [facility] 12-19-2024 10:19-0500 Body mass index (BMI) [Ratio] 37.44 kg/m2 Gary Enriqueta DO Work Phone: [facility] 12-19-2024 10:19-0500 Body weight 102.06 kg Gary Enriqueta DO Work Phone: [facility] 12-19-2024 10:19-0500 Diastolic blood pressure 76 mm[Hg] Gary Enriqueta DO Work Phone: [facility] 12-19-2024 10:19-0500 Systolic blood pressure 122 mm[Hg] Gary Enriqueta DO Work Phone: [facility] 11-20-2024 09:42-0500 Body mass index (BMI) [Ratio] 36.61 kg/m2 Genevieve MARIA Work Phone: [facility] 11-20-2024 09:42-0500 Body weight 99.79 kg Genevieve MARIA Work Phone: [facility] 11-20-2024 09:42-0500 Diastolic blood pressure 74 mm[Hg] Genevieve MARIA Work Phone: [facility] 11-20-2024 09:42-0500 Systolic blood pressure 120 mm[Hg] Genevieve MARIA Work Phone: [facility] 10-17-2024 13:10-0500 Body mass index (BMI) [Ratio] 35.35 kg/m2 Gary Enriqueta DO Work Phone: [facility] 10-17-2024 13:10-0500 Body weight 96.34 kg Gary Enriqueta DO Work Phone: [facility] 10-17-2024 13:10-0500 Diastolic blood pressure 70 mm[Hg] Gary Enriqueta DO Work Phone: [facility] 10-17-2024 13:10-0500 Systolic blood pressure 120 mm[Hg] Gary Enriqueta DO Work Phone: [facility] 09-18-2024 11:15-0400 Body mass index (BMI) [Ratio] 35.2 kg/m2 Gary Enriqueta DO Work Phone: [facility] 09-18-2024 11:15-0400 Body weight 95.94 kg Gary Enriqueta DO Work Phone: [facility] 09-18-2024 11:15-0400 Diastolic blood pressure 74 mm[Hg] Gary Enriqueta DO Work Phone: [facility] 09-18-2024 11:15-0400 Systolic blood pressure 122 mm[Hg] Gary Enriqueta DO Work Phone: [facility] 08-18-2024 10:28-0400 Body mass index (BMI) [Ratio] 34.95 kg/m2 Nom Nurse [facility] 08-18-2024 10:28-0400 Body weight 95.25 kg [facility] Nurse [facility] 02-19-2023 14:29-0500 Body height 165.1 cm Best Canales MD Work Phone: [employer] 01-10-2023 14:29-0500 Body mass index (BMI) [Ratio] 34.35 kg/m2 Best Canales MD Work Phone: [employer] 01-10-2023 14:29-0500 Body temperature 98.49 [degF] Best Canales MD Work Phone: [employer] 01-10-2023 14:29-0500 Body weight 93.62 kg Best Canales MD Work Phone: [employer] 01-10-2023 14:29-0500 Diastolic blood pressure 79 mm[Hg] Best Canales MD Work Phone: [employer] 01-10-2023 14:29-0500 Heart rate 75 /min Best Canales MD Work Phone: [employer] 01-10-2023 14:29-0500 Respiratory rate 16 /min Best Canales MD Work Phone: [employer] 01-10-2023 14:29-0500 SaO2% (BldA) [Mass fraction] 99 % Best Canales MD Work Phone: [employer] 01-10-2023 14:29-0500 Systolic blood pressure 140 mm[Hg] Best Canales MD Work Phone: [employer] 12-08-2022 11:51-0500 Blood Pressure Location Keyon DAVIS [facility] 12-08-2022 11:51-0500 Body temperature 98.24 [degF] Keyon DAVIS [facility] 12-08-2022 11:51-0500 Diastolic blood pressure 78 mm[Hg] Keyon DAVIS [facility] 12-08-2022 11:51-0500 Heart rate 84 /min Keyon DAVIS [facility] 12-08-2022 11:51-0500 Respiratory rate 16 /min Keyon DAVIS [facility] 12-08-2022 11:51-0500 SaO2% (BldA) [Mass fraction] 100 % Keyon DAVIS [facility] 12-08-2022 11:51-0500 Systolic blood pressure 114 mm[Hg] Keyon DAVIS [facility] 12-04-2022 16:32-0500 Body mass index (BMI) [Ratio] 33.66 kg/m2 Jason Tracy MD Work Phone: [facility] [employer] 12-04-2022 16:32-0500 Body temperature 98.49 [degF] Jason Tracy MD Work Phone: [employer] 12-04-2022 16:32-0500 Body weight 91.76 kg Jason Tracy MD Work Phone: [facility] [employer] 12-04-2022 16:32-0500 Diastolic blood pressure 75 mm[Hg] Jason Tracy MD Work Phone: [employer] 12-04-2022 16:32-0500 Heart rate 91 /min Jason Tracy MD Work Phone: [employer] 12-04-2022 16:32-0500 Respiratory rate 16 /min Jason Tracy MD Work Phone: [facility] [employer] 12-04-2022 16:32-0500 SaO2% (BldA) [Mass fraction] 99 % Jason Tracy MD Work Phone: [facility] [employer] 12-04-2022 16:32-0500 Systolic blood pressure 123 mm[Hg] Jason Tracy MD Work Phone: [facility] [employer] 06-01-2022 12:50-0400 Blood Pressure Location Meena Carl [facility] 06-01-2022 12:50-0400 Body temperature 96.98 [degF] Meena Carl [facility] 06-01-2022 12:50-0400 Diastolic blood pressure 60 mm[Hg] Meena Carl [facility] 06-01-2022 12:50-0400 Heart rate 88 /min Meena Carl [facility] 06-01-2022 12:50-0400 SaO2% (BldA) [Mass fraction] 97 % Meena Carl [facility] 06-01-2022 12:50-0400 Systolic blood pressure 122 mm[Hg] Meena Carl [facility] 09-14-2021 10:15-0400 Body mass index (BMI) [Ratio] 31.62 kg/m2 Keyon Wilkinson MD Work Phone: [employer] Work Phone: 09-14-2021 10:15-0400 Body weight 86.18 kg Keyon Wilkinson MD Work Phone: [employer] Work Phone: 09-14-2021 10:14-0400 Body height 165.1 cm Keyon Wilkinson MD Work Phone: [employer] Work Phone: 09-14-2021 10:14-0400 Body temperature 98.2 [degF] Keyon Wilkinson MD Work Phone: [employer] Work Phone: 09-14-2021 10:14-0400 Diastolic blood pressure 93 mm[Hg] Keyon Wilkinson MD Work Phone: [employer] Work Phone: 09-14-2021 10:14-0400 Heart rate 91 /min Keyon Wilkinson MD Work Phone: [employer] Work Phone: 09-14-2021 10:14-0400 Respiratory rate 20 /min Keyon Wilkinson MD Work Phone: [employer] Work Phone: 09-14-2021 10:14-0400 SaO2% (BldA) [Mass fraction] 96 % Keyon Wilkinson MD Work Phone: [employer] Work Phone: 09-14-2021 10:14-0400 Systolic blood pressure 131 mm[Hg] Keyon Wilkinson MD Work Phone: [employer] Work Phone: Encounters Encounter Date Encounter Type Care Provider Facility Start: 03-06-2025 End: 03-06-2025 Clinisync Result Encounter Genevieve MARIA Work Phone: [facility] External Department Unsolicited Start: 03-06-2025 End: 03-06-2025 Clinisync Result Encounter Genevieve MAIRA Work Phone: [facility] External Department Unsolicited Start: 03-02-2025 End: 03-02-2025 Clinisync Result Encounter Gary Enriqueta DO Work Phone: [facility] External Department Unsolicited Start: 03-02-2025 End: 03-02-2025 Clinisync Result Encounter Gary Enriqueta DO Work Phone: [facility] External Department Unsolicited Start: 02-28-2025 End: 02-28-2025 Office outpatient visit 15 minutes Gary Enriqueta [...] Start: 01-29-2025 End: 01-29-2025 ambulatory JOHN PARTIDA [facility] Start: 01-29-2025 End: 01-29-2025 Subsequent hospital visit [...] Not Available Start: 01-15-2025 End: 01-15-2025 ambulatory [facility] Start: 01-15-2025 End: 01-15-2025 Subsequent hospital visit by physician John Partida DO Work Phone: [facility] Comment on above: Arrived Start: 01-12-2025 End: 01-12-2025 [facility] [facility] [facility] Start: 01-12-2025 End: 01-12-2025 Subsequent hospital visit by physician John Partida DO Work Phone: [facility] Comment on above: Arrived Start: 01-10-2025 End: 01-10-2025 [facility] Start: 01-10-2025 End: 01-10-2025 Subsequent hospital visit by physician John Partida DO Work Phone: [facility] Comment on above: Arrived Start: 01-05-2025 End: 01-05-2025 [facility] Start: 01-05-2025 End: 01-05-2025 Subsequent hospital visit by physician John Partida DO Work Phone: [facility] Comment on above: Arrived Start: 01-02-2025 End: 01-02-2025 [facility] Start: 01-02-2025 End: 01-02-2025 Subsequent hospital visit by physician John Partida DO Work Phone: [facility] Comment on above: Arrived Start: 12-29-2024 End: 12-29-2024 [facility] Start: 12-29-2024 End: 12-29-2024 Subsequent hospital visit by physician John Partida DO Work Phone: [facility] Comment on above: Arrived Start: 12-27-2024 End: 12-27-2024 [facility] Start: 12-27-2024 End: 12-27-2024 Subsequent hospital visit by physician John Partida DO Work Phone: [facility] Comment on above: Arrived Start: 12-25-2024 End: 12-25-2024 Clinisync Result Encounter Gary Enriqueta DO Work Phone: [facility] Unsolicited Start: 12-25-2024 End: 12-25-2024 Clinisync Result Encounter Gary Enriqueta DO Work Phone: [facility] Unsolicited Start: 12-22-2024 End: 12-22-2024 [facility] Start: 12-22-2024 End: 12-22-2024 Subsequent hospital visit by physician John Partida DO Work Phone: [facility] Comment on above: Arrived Start: 12-20-2024 End: 12-20-2024 [facility] Start: 12-20-2024 End: 12-20-2024 Subsequent hospital visit by physician John Partida DO Work Phone: [facility] Comment on above: Arrived Start: [...] BARCENASO Not Available Start: 12-15-2024 End: 12-15-2024 [facility] Start: 12-13-2024 End: 12-13-2024 [facility] Start: 12-13-2024 End: 12-13-2024 Subsequent hospital visit by physician John Partida DO Work Phone: [facility] Comment on above: Arrived Start: 12-06-2024 End: 12-06-2024 [facility] Start: 12-06-2024 End: 12-06-2024 Subsequent hospital visit by physician John Paritda DO Work Phone: [facility] Comment on above: Arrived Start: 11-20-2024 End: 11-20-2024 Bamboo flowsheet Genevieve Calderon PA Work Phone: [facility] Start: 11-20-2024 End: 11-20-2024 Bamboo flowsheet Genevieve MARIA Work Phone: [facility] Start: 11-20-2024 End: 11-20-2024 ambulatory GENEVIEVE CALDERON Not Available Start: 11-20-2024 End: 11-20-2024 Office outpatient visit 15 minutes Genevieve MARIA Work Phone: [facility] Comment on above: Second trimester pre gnancy; 20 weeks gestation of ; Diabetes mellitus screening Start: 10-17-2024 End: 10-17-2024 Subsequent hospital visit by physician John Partida DO Work Phone: [facility] Start: 10-17-2024 End: 10-29-2024 Clinisync Result Encounter Gary Enriqueta DO Work Phone: [facility] External Department Unsolicited Start: 10-17-2024 End: 10-18-2024 External Result Encounter Gary Enriqueta DO Work Phone: [facility] External Department Unsolicited Start: 10-17-2024 End: 10-29-2024 External Result Encounter Gary Enriqueta DO Work Phone: [facility] External Department Unsolicited Start: 10-17-2024 End: 10-17-2024 Office outpatient visit 15 minutes Gary Enriqueta DO Work Phone: [facility] Comment on above: Screening, , for anatomic survey; 15 weeks gestation of ; Second trimester ; Encounter for gynecological examination without abnormal finding; Vaginal discharge; STD exposure; Nausea and vomiting during Start: 10-17-2024 End: 10-17-2024 Patient encounter status Gary Enriqueta DO Work Phone: [facility] Start: 10-12-2024 End: 10-12-2024 ambulatory [facility] Start: 10-12-2024 End: 10-12-2024 Subsequent hospital visit by physician John Partida DO Work Phone: [facility] Comment on above: Arrived Start: 10-10-2024 End: 10-10-2024 ambulatory [facility] Start: 10-10-2024 End: 10-10-2024 Subsequent hospital visit by physician John Partida DO Work Phone: [facility] Comment on above: Arrived Start: 10-04-2024 End: 10-04-2024 Subsequent hospital visit by physician John Partida DO Work Phone: [facility] Start: 10-04-2024 [facility] Start: 09-18-2024 End: 09-18-2024 Office outpatient visit [...] Unsolicited Start: 08-07-2024 End: 08-07-2024 [facility] Start: 08-07-2024 End: 08-07-2024 Subsequent hospital visit by physician Óscar Nassar DNP Work Phone: [facility] Start: 08-02-2024 End: 08-02-2024 Clinisync Result Encounter Gary Alvarezzio DO Work Phone: [facility] Unsolicited Start: 08-02-2024 End: 08-02-2024 Clinisync Result Encounter Gary Enriqueta DO Work Phone: [facility] Unsolicited Start: 08-02-2024 End: 08-02-2024 ambulatory [facility] Start: 07-31-2024 End: 07-31-2024 Clinisync Result Encounter Gary Alvarezzio DO Work Phone: [facility] Unsolicited Start: 07-31-2024 End: 07-31-2024 Clinisync Result Encounter Gary Alvarezzio DO Work Phone: [facility] Unsolicited Start: 07-31-2024 End: 07-31-2024 [facility] Start: 07-31-2024 End: 07-31-2024 Subsequent hospital visit by physician Óscar Nassar DNP Work Phone: [facility] Start: 07-29-2024 End: 07-29-2024 Clinisync Result Encounter Gary Alvarezzio DO Work Phone: [facility] Unsolicited Start: 07-29-2024 End: 07-29-2024 Clinisync Result Encounter Gary Enriqueta DO Work Phone: [facility] Unsolicited Start: 07-29-2024 End: 07-29-2024 ambulatory [facility] Start: 07-27-2024 End: 07-27-2024 Clinisync Result Encounter Gary Enriqueta DO Work Phone: [facility] Unsolicited Start: 07-27-2024 End: 07-27-2024 Clinisync Result Encounter Gary Enriqueta DO Work Phone: [facility] Unsolicited Start: 07-27-2024 End: 07-27-2024 ambulatory [facility] Start: 07-27-2024 End: 07-27-2024 Subsequent hospital visit by physician John Partida DO Work Phone: [facility] Comment on above: Arrived Start: 07-25-2024 End: 07-25-2024 [facility] Start: 07-21-2024 End: 07-21-2024 [facility] Start: 07-19-2024 End: 07-19-2024 [facility] Start: 07-13-2024 End: 07-13-2024 Subsequent hospital visit by physician John Partida DO Work Phone: [facility] Comment on above: Arrived Start: 07-13-2024 End: 07-13-2024 [facility] Start: 07-06-2024 End: 07-06-2024 Subsequent hospital visit by physician John Partida DO Work Phone: [facility] Start: 06-29-2024 End: 06-29-2024 ambulatory [facility] Start: 06-29-2024 End: 06-29-2024 Subsequent hospital visit by physician John Partida DO Work Phone: [facility] Comment on above: Arrived Start: 06-26-2024 End: 06-26-2024 [facility] Start: 06-22-2024 End: 06-22-2024 [facility] Start: 06-20-2024 End: 06-20-2024 ambulatory [facility] Start: 06-16-2024 End: 06-16-2024 ambulatory [facility] Start: 06-14-2024 End: 06-14-2024 ambulatory [facility] Start: 06-08-2024 End: 06-08-2024 ambulatory ÓSCAR NASSAR [facility] Start: 06-08-2024 End: 06-08-2024 ambulatory [facility] Start: 05-22-2024 End: 05-24-2024 ambulatory [facility] Start: 05-22-2024 End: 05-24-2024 Subsequent hospital visit by physician Óscar Nassar DNP Work Phone: [facility] Start: 03-06-2024 End: 03-06-2024 ambulatory GARY ROBISON Not Available Start: 03-04-2024 End: 03-04-2024 [facility] Start: 03-04-2024 [facility] Start: 04-09-[address] NONE LISTED REQUEST Facility: Start: 01-29-2023 End: 01-31-2023 Subsequent hospital visit by physician Neeru Additional Xray At [facility] Comment on above: Other closed fractur e of proximal end of right fibula with routine healing, subsequent encounter Start: 01-29-2023 End: 01-31-2023 Subsequent hospital visit by physician Keyon Davis MD Work Phone: [facility] Start: 01-10-2023 End: 01-10-2023 Emergency department patient visit Best Canales MD Work Phone: [facility] ED Comment on above: Injury of right ankl e, initial encounter (Primary Dx) Start: 12-08-2022 End: 12-09-2022 ambulatory Keyon DAVIS Facility:[facility] Start: 12-08-2022 End: 12-08-2022 Patient encounter procedure Keyon DAVIS [facility] [place] Start: 12-04-2022 End: 12-04-2022 Emergency department patient visit Jason Tracy MD Work Phone: [facility] ED Comment on above: Viral illness (Prima ry Dx) Start: 09-03-2022 End: 09-03-2022 Emergency department patient visit Evan Moyer Facility:[facility] Start: 06-19-2022 End: 06-21-2022 Subsequent hospital visit by physician [facility] Additional Xray At [facility] Comment on above: Left wrist pain Start: 06-01-2022 End: 06-02-2022 ambulatory [employer]M [employer]TER HELPER Meena Carl Facility:[facility] Start: 06-01-2022 End: 06-01-2022 Patient encounter procedure Meena Carl [facility] Start: 05-28-2022 ambulatory FORM SETTER HELPER Meena Carl Faci lity:[facility] Start: 09-14-2021 End: 09-14-2021 Emergency department patient visit Keyon Wilkinson MD Work Phone: [facility] ED Comment on above: Subacute bronchitis (Primary Dx) Procedures Date Procedure Procedure Detail Performing Clinician Start: 03-06-2025 US OB BPP W NON-STRESS Genevieve MARIA Work Phone: Start: 03-02-2025 ALL PLATELET COUNT Core y Enriqueta DO Work Phone: Start: 02-28-2025 Urnls dip stick/tabl et rgnt [...] Work Phone: Start: 09-11-2024 BOX TEST Gary Jacizi o DO Work Phone: Start: 08-18-2024 End: 08-18-2024 Urnls dip stick/tablet rgnt non-auto w/o micrscp Gary Enriqueta DO Work Phone: Start: 08-07-2024 ALL HCG, QUANTITATIVE C oremariya Barcenaso DO Work Phone: Start: 08-07-2024 Gonadotropin chorion ic quantitative Gary Robison MD Work Phone: Start: 08-02-2024 ALL HCG, QUANTITATIVE C marco Barcenaso DO Work Phone: Start: 07-31-2024 ALL HCG, QUANTITATIVE C marco Barcenaso DO Work Phone: Start: 07-31-2024 Gonadotropin chorion [...] Radex ankle complete minimum 3 views Best Canales MD Work Phone: Start: 12-04-2022 Iaadiadoo [...] yrs+ (1 - 1-dose 75+ series) [facility] Start: 2054 Respiratory Syncytia l Virus (RSV) or age 60 yrs+ (1 - 1-dose 60+ series) Respiratory Syncytial Virus (RSV) or age 60 yrs+ (1 - 1-dose 60+ series) [facility] Start: 05-26-2028 Screening for malign ant neoplasm of cervix HPV/Cotest [facility] Start: 10-17-2027 Screening for malign ant neoplasm of cervix [facility] Start: 07-23-2025 Influenza vaccination Influenz a Vaccine (Season Ended) [facility] Start: 03-19-2025 End: 03-19-2025 Patient encounter procedure 03/19/2025 8:30 AM EDT Routine [facility] [address] [place] [id number] Gary Robison, DO [address] [place] [address] [facility] Start: 03-19-2025 End: 03-19-2025 Professional / ancillary services management 03/19/2025 8:00 AM EDT Ancillary Procedure [facility] [address] [place] [phone] [facility] Start: 03-14-2025 Depression Screen Depression Screen [facility] Start: 02-28-2025 End: 06-30-2025 US for US OB follow up transabdominal approach Imaging Routine Excessive growth affecting management of , antepartum, single or unspecified fetus Expected: 02/28/2025, Expires: 06/30/2025 [facility] Comment on above: Expected: 02/28/2025 , Expires: 06/30/2025 Start: 02-28-2025 End: 02-28-2025 Patient encounter procedure 02/28/2025 11:10 AM EDT Routine [facility] [address] [place] [address] Gary Robison DO [address] [facility] [address] [place], [facility] Start: 02-28-2025 End: 02-28-2025 Professional / ancillary services management 02/28/2025 10:30 AM EDT Ancillary Procedure [facility] [address] [place] [address] [place] [address] [facility] Start: 02-14-2025 End: 02-14-2025 Patient encounter procedure 02/14/2025 9:00 AM EDT Appointment [facility] [address] [place] [address] John Partida, DO [address] [facility] [address] [place], [place] [id number] Clara Castrejon, PT *[employer] 15 of 30 [...] AM EDT Routine [facility] [address] [facility] [place] [address] Genevieve Calderon PA [address] [facility] [place] [address] [facility] Start: 01-29-2025 End: 01-29-2025 Patient encounter procedure 01/29/2025 9:00 AM EDT Appointment [facility] [address] [place] [address] John Partida, DO [address] [place] [address] Clara Castrejon, PT *[employer] 15 of 30 Sacral Pain, [facility] Comment on above: *[employer] 15 of 30 Sacral Pain, Start: 01-18-2025 End: 01-18-2025 Patient encounter procedure 01/18/2025 8:00 AM EST Appointment [facility] [address] [place] [address] John Partida, DO [address] [place] [address] Clara Castrejon, PT *[employer] 14 of 30 Sacral Pain, [facility] Comment on above: *[employer] 14 of 30 Sacral Pain, Start: 01-16-2025 End: 01-16-2025 Patient encounter procedure [facility] Comment on above: Arrived Start: 01-16-2025 End: 01-16-2025 Professional / ancillary services management 01/16/2025 8:00 AM EST Ancillary Procedure [facility] [address] [place] [address] [facility] Start: 01-15-2025 End: 01-15-2025 Patient encounter procedure 01/15/2025 9:00 AM EST Appointment [facility] [address] [place] [address] John Partida, DO [address] [place] [address] Clara Castrejon, PT *[employer] 13 of 30 [...] Encounter [facility] [address] [place] [address] John Partida, DO [address] [place] [address] Lauryn Edwards [facility] Start: 01-02-2025 End: 01-02-2025 Patient encounter procedure 01/02/2025 8:00 AM EST Appointment [facility] [address] [place] [address] John Partida DO [address] [place] [address] Clara Castrejon, PT *[employer] 8 of 30 Sacral Pain, [facility] Comment on above: *[employer]ource 8 of 30 Sacral Pain, Start: 12-29-2024 End: 12-29-2024 Patient encounter procedure 12/29/2024 11:15 AM EST Appointment [facility] [address] [place] [address] John Partida DO [address] [place] [address] Clara Castrejon, PT *[employer] 7 of 30 Sacral Pain, [facility] Comment on above: *[employer] 7 of 30 Sacral Pain, Start: 12-27-2024 End: 12-27-2024 Patient encounter procedure 12/27/2024 9:00 AM EST Appointment [facility] [address] [place] [address] John Partida, DO [address] [place] [address] Austen Puga PTA *[employer] 6 of 30 Sacral Pain, [facility] Comment on above: *[employer] 6 of 30 Sacral Pain, Start: 12-22-2024 End: 12-22-2024 Patient encounter procedure 12/22/2024 8:00 AM EST Appointment [facility] [address] [place] [address] John Partida, DO [address] [place] [address] Austen Puga PTA *[employer] 5 of 30 Sacral Pain, [facility] Comment on above: *[employer]ource 5 of 30 Sacral Pain, Start: 12-20-2024 End: 12-20-2024 Patient encounter procedure 12/20/2024 9:00 AM EST Appointment [facility] [address] [place] [address] John Partida, DO [address] [place] [address] Clara Castrejon, PT *[employer] 4 of 30 Sacral Pain, [facility] Comment on above: *Caresource 4 of 30 Sacral Pain, Start: 12-19-2024 End: 12-19-2024 Patient encounter procedure 12/19/2024 9:50 AM EST Routine [facility] [address] [place] [address] Gary Robison, DO [address] [facility] [place] [address] [facility] Start: 12-15-2024 End: 12-15-2024 Patient encounter procedure 12/15/2024 8:15 AM EST Appointment [facility] [address] [place] [address] John Partida, DO [address] [place] [address] Clara Castrejon, PT *[employer] 3 of 30 Sacral Pain, [facility] Comment on above: *[employer]ource 3 of 30 Sacral Pain, Start: 12-13-2024 End: 12-13-2024 Patient encounter procedure 12/13/2024 9:45 AM EST Appointment [facility] [address] [place] [address] John Partida, DO [address] [place] [address] Trinity Browning *[employer] 2 of 30 Sacral Pain, [facility] Comment on above: *[employer] 2 of 30 Sacral Pain, Start: 2024 Screening for malign ant neoplasm of cervix [facility] Start: 11-20-2024 End: 11-20-2025 CBC panel - Blood by Automated count CBC Lab Routine Diabetes mellitus screening Expected: 11/20/2024 (Approximate), Expires: 11/20/2025 [facility] Work Phone: Comment on above: [...] AM EST Routine [facility] [address] [place] [phone] Genevieve Calderon PA [address] [facility] [place] [address] [facility] Start: 11-20-2024 End: 11-20-2024 Professional / ancillary services management 11/20/2024 8:00 AM EST Ancillary Procedure [facility] [address] [place] [phone] [facility] Start: 10-17-2024 End: 01-17-2025 Alpha fetoprotein, maternal Alpha fetoprotein, maternal Lab Routine 15 weeks gestation of Expected: 10/17/2024 (Approximate), Expires: 01/17/2025 [facility] Work Phone: Comment on above: Expected: 10/17/2024 (Approximate), Expires: 01/17/2025 Start: 10-17-2024 End: 10-17-2025 US for US OB ANATOMY SINGLE W US OB CERVICAL LENGTH Imaging Routine Screening, , for anatomic survey 15 weeks gestation of Expected: 10/17/2024 (Approximate), Expires: 10/17/2025 [facility] Comment on above: Expected: 10/17/2024 (Approximate), Expires: 10/17/2025 Start: 10-17-2024 End: 10-17-2024 Patient encounter procedure 10/17/2024 10:50 AM EST Routine [facility] [address] [place] [id number] Gary Robison DO [address] [facility] [place] [address] [facility] Start: 10-17-2024 End: 10-17-2024 Patient encounter procedure 10/17/2024 8:15 AM EST Appointment [facility] [address] [place] [address] John Partida, DO [address] [place] [address] Trinity Browning 16 of 30 Sacral Pain, [facility] Comment on above: 16 of 30 Sacral Pain , Start: 10-12-2024 End: 10-12-2024 Patient encounter procedure 10/12/2024 8:00 AM EST Appointment [facility] [address] [place] [address] John Partida, DO [address] [place] [address] Clara Castrejon, PT 15 of 30 Sacral Pain, [facility] Comment on above: 15 of 30 Sacral Pain , Start: 10-10-2024 End: 10-10-2024 Patient encounter procedure 10/10/2024 9:30 AM EST Appointment [facility] [address] [place] [address] John Partida, DO [address] [facility] [address] Clara Castrejon, PT 14 of 30 Sacral Pain, [facility] Comment on above: 14 of 30 Sacral Pain , Start: 09-18-2024 End: 09-18-2024 Patient encounter procedure 09/18/2024 10:40 AM EDT Routine [facility] [address] [facility] [phone] Gary Robison DO [address] [place] [address] [facility] Start: 08-18-2024 End: 08-18-2025 ABO/Rh ABO/Rh Lab Routine Missed menses , unspecified gestational age Expected: 08/18/2024 (Approximate), Expires: 08/18/2025 [facility] Comment on above: Expected: 08/18/2024 (Approximate), [...] Missed menses Expected: 08/18/2024 (Approximate), Expires: 08/18/2025 [facility] Comment on above: Expected: 08/18/2024 (Approximate), Expires: 08/18/2025 Start: 08-18-2024 End: 08-18-2024 ambulatory 08/18/2024 9:30 AM EDT Initial [facility] [address] [facility] [place] [place] [address] [facility] Start: 08-18-2024 End: 08-18-2024 Professional / ancillary services management 08/18/2024 9:00 AM EDT Ancillary Procedure [facility] [address] [facility] [place] [address] [facility] Start: 07-23-2024 COVID-19 Vaccine () COVID-19 Vaccine () [facility] Start: 07-23-2024 COVID-19 Vaccine ( season) COVID-19 Vaccine ( season) [facility] Start: 07-23-2024 Influenza vaccination Influenza Vacc ine (#1) [facility] Start: 07-19-2024 End: 07-19-2024 Patient encounter procedure 07/19/2024 8:00 AM EDT Appointment [facility] [address] [place] [address] John Partida, [address] [place] [address] Asia Mix, PT [address] [place] [address] [facility] Start: 07-13-2024 End: 07-13-2024 Patient encounter procedure [facility] Start: 07-06-2024 End: 07-06-2024 Patient encounter procedure 07/06/2024 9:00 AM EDT Appointment [facility] [address] [place] [address] John Partida, [address] [place] [address] Asia Mix, PT [address] [facility] [place] [address] [facility] Start: 06-22-2024 Influenza vaccination Flu vaccine (# 1) [facility] Start: 07-23-2023 COVID-19 Vaccine ( season) COVID-19 Vaccine ( season) [facility] Start: 07-23-2022 Influenza vaccination Flu vaccine (# 1) [facility] Start: 06-22-2022 Influenza vaccination Flu vaccine (# 1) [facility] Start: 07-23-2021 Influenza vaccination Flu vaccine (# 1) [facility] Work Phone: Start: 08-02-2017 DTaP/Tdap/Td vaccine (2 - Td or Tdap) DTaP/Tdap/Td vaccine (2 - Td or Tdap) [facility] Start: 2015 Screening for malign ant neoplasm of cervix Pap smear [facility] Start: 2013 DTaP/Tdap/Td vaccine (1 - Tdap) DTaP/Tdap/Td vaccine (1 - Tdap) [facility] Phone: Start: 2013 Hepatitis B vaccine (1 of 3 - 19+ 3-dose series) Hepatitis B vaccine (1 of 3 - 19+ 3-dose series) [facility] Start: 2012 Hepatitis C screening Hepatitis C sc reen [facility] Start: 2009 HIV screening HIV screen [facility] Start: 2006 COVID-19 Vaccine (1) COVID-19 Vaccin e (1) [facility] Phone: Start: 2006 Depression Screen Depression Screen [facility] Start: 2005 HPV vaccine (1 - 2-d ose series) HPV vaccine (1 - 2-dose series) [facility] [employer] Phone: Start: 1998 Varicella vaccine (2 of 2 - 2-dose childhood series) Varicella vaccine (2 of 2 - 2-dose childhood series) [facility] Start: 1995 Varicella vaccine (1 of 2 - 2-dose childhood series) Varicella vaccine (1 of 2 - 2-dose childhood series) [facility] [employer] Phone: Start: 05-30-1995 COVID-19 Vaccine (#1) COVID-19 Vacci ne (#1) [facility] Start: 1994 Hepatitis B vaccine (1 of 3 - 3-dose series) Hepatitis B vaccine (1 of 3 - 3-dose series) [facility] Start: 1994 Hepatitis C screening Hepatitis C sc reen [facility] [employer] Phone: Bacteria identified in Urine by Culture Urine culture Microbiology Routine Missed menses Ordered: 08/18/2024 [facility] Comment on above: Ordered: 08/18/2024 CBC W Auto Different ial panel - Blood CBC and differential Lab Routine Missed menses , unspecified gestational age Ordered: 08/18/2024 [facility] Comment on above: Ordered: 08/18/2024 CHLAMYDIA TRACHOMATI S (GENITO/STI) CHLAMYDIA TRACHOMATIS (GENITO/STI) Lab Routine Vaginal discharge STD exposure Ordered: 10/17/2024 [facility] Comment on above: Ordered: 10/17/2024 Cytology Cervical or vaginal smear or scraping study Pap Smear Pathology and Cytology Routine Encounter for gynecological examination without abnormal finding Ordered: 10/17/2024 [facility] Comment on above: Ordered: 10/17/2024 Hemoglobin A1c/Hemoglobin.total in Blood Hemoglobin A1c Lab Routine Missed menses , unspecified gestational age Ordered: 08/18/2024 [facility] Comment on above: Ordered: 08/18/2024 Hepatitis B virus surface Ag [Presence] in Serum or Plasma by Immunoassay Hepatitis B surface antigen Lab Routine Missed menses , unspecified gestational age Ordered: 08/18/2024 [facility] Comment on above: Ordered: 08/18/2024 Hepatitis C virus Ab [Presence] in Serum or Plasma by Immunoassay Hepatitis C antibody Lab Routine Missed menses , unspecified gestational age Ordered: 08/18/2024 [facility] Comment on above: Ordered: 08/18/2024 HIV-1/HIV-2 antigen/antibody combination immunoassay HIV-1 and HIV-2 antibodies Lab Routine Missed menses , unspecified gestational age Ordered: 08/18/2024 [facility] Comment on above: Ordered: 08/18/2024 Neisseria gonorrhoea e DNA [Presence] in Unspecified specimen by WADE with probe detection Neisseria gonorrhea DNA probe, direct Lab Routine Vaginal discharge STD exposure Ordered: 10/17/2024 [facility] Comment on above: Ordered: 10/17/2024 Platelets [#/volume] in Blood Platelet count Lab Routine Low platelet count (CMS/HCC) Ordered: 12/19/2024 [facility] Work Phone: Comment on above: Ordered: 12/19/2024 Platelets [#/volume] in Blood Platelet count Lab Routine Low platelet count (CMS/HCC) Ordered: 02/28/2025 [facility] Work Phone: Comment on above: Ordered: 02/28/2025 Reagin Ab [Presence] in Serum by RPR RPR Lab Routine Missed menses , unspecified gestational age Ordered: 08/18/2024 [facility] Comment on above: Ordered: 08/18/2024 Rubella antibody, IgG Rubella an tibody, IgG Lab Routine Missed menses , unspecified gestational age Ordered: 08/18/2024 [facility] Comment on above: Ordered: 08/18/2024 SURESWAB(R) ADVANCED VAGINITIS PLUS, TMA SURESWAB(R) ADVANCED VAGINITIS PLUS, TMA Pathology and Cytology Routine Vaginal discharge STD exposure Ordered: 10/17/2024 [facility] Comment on above: Ordered: 10/17/2024 Immunizations Immunization Date Immunization Notes Care Provider Jaci masterson 02-16-2008 Hep A, unspecified formulation Meena Carl [facility] 08-02-2007 Hep A, unspecified formulation Meena Carl [facility] 08-02-2007 meningococcal ACWY vaccine, unspecified formulation Meena Carl [facility] 08-02-2007 tetanus toxoid, reduced diphtheria toxoid, and acellular pertussis vaccine, adsorbed Meena Carl [facility] 08-19-2000 DTaP, unspecified formulation Meena Carl [facility] 08-19-2000 measles, mumps and rubella virus vaccine Meena Carl [facility] 10-10-1997 varicella virus vaccine Meena Carl [facility] 03-09-1996 DTaP, unspecified formulation Meena Carl [facility] 03-09-1996 Hib, unspecified formulation Meena Carl [facility] 03-09-1996 measles, mumps and rubella virus vaccine Meena Carl [facility] 06-11-1995 DTP-Hib Meena Carl [facility] 06-11-1995 hepatitis B vaccine, pediatric or pediatric/adolescent dosage Meena Carl [facility] 04-05-1995 DTP-Hib Meena Carl [facility] 02-01-1995 DTP-Hib Meena Carl [facility] 01-04-1995 hepatitis B vaccine, pediatric or pediatric/adolescent dosage Meena Carl [facility] 1994 hepatitis B vaccine, pediatric or pediatric/adolescent dosage Meena Aguilarell [facility] NEGATED: Highlighted row has not occurred!12-08-2022 influenza virus vaccine, unspecified formulation Keyon DAVIS [facility] NEGATED: Highlighted row has not occurred!12-08-2022 SARS-CoV-2 mRNA (tozinamerarao 5y-11y) vaccine Keyon DAVIS [facility] Payers Date Payer Category Payer Medicaid [facility] MED[facility] [employer] [place] [id number] 2022-Present [address] [place] [address] [id number] 2022 Private Health Insurance [facility] MEDICA[facility] [id number] 2014 Unknown [id number] 1.2.840.861912.1.13.239.2. 7.3.175434.315 1994 Unknown [id number] 2.16.840.1.889760.3.579.2. 727 1994 Unknown [id number] 2.16.840.1.623024.3.579.2. 727 1994 Unknown [id number] 2.16.840.1.898865.3.579.2. 727 1994 Unknown [id number] 2.16.840.1.423069.3.579.2. 727 1994 Unknown [id number] 2.16.840.1.330682.3.579.2. 593 1994 Unknown [id number] 2.16.840.1.225948.3.579.2. 174 1994 Unknown [id number] 2.16.840.1.100430.3.579.2. 174 1994 Unknown [id number] 2.16.840.1.051584.3.579.2. 174 1994 Unknown [id number] 2.16.840.1.942328.3.579.2. 174 1994 Unknown [id number] 2.16.840.1.938725.3.579.2. 174 1994 Unknown [id number] 2.16.840.1.991029.3.579.2. 174 1994 Unknown [id number] 2.16.840.1.429058.3.579.2. 174 1994 Unknown [id number] 2.16.840.1.421627.3.579.2. 174 1994 Unknown [id number] 2.16.840.1.436733.3.579.2. 174 1994 Unknown [id number] 2.16.840.1.740657.3.579.2. 174 1994 Unknown [id number] 2.16.840.1.005460.3.579.2. 174 1994 Unknown [id number] 2.16.840.1.008092.3.579.2. 174 1994 Unknown [id number] 2.16.840.1.449132.3.579.2. 174 1994 Unknown [id number] 2.16.840.1.463395.3.579.2. 174 1994 Unknown [id number] 2.16.840.1.996357.3.579.2. 174 1994 Unknown [id number] 2.16.840.1.692272.3.579.2. 174 1994 Unknown [id number] 2.16.840.1.142565.3.579.2. 174 1994 Unknown [id number] 2.16.840.1.787498.3.579.2. 174 1994 Unknown [id number] 2.16.840.1.601032.3.579.2. 174 1994 Unknown [id number] 2.16.840.1.945908.3.579.2. 174 1994 Unknown [id number] 2.16.840.1.185403.3.579.2. 174 1994 Unknown [id number] 2.16.840.1.449818.3.579.2. 174 1994 Unknown [id number] 2.16.840.1.746849.3.579.2. 174 1994 Unknown [id number] 2.16.840.1.999075.3.579.2. 174 1994 Unknown [id number] 2.16.840.1.812112.3.579.2. 174 1994 Unknown [id number] 2.16.840.1.835087.3.579.2. 174 1994 Unknown [id number] 2.16.840.1.057244.3.579.2. 174 1994 Unknown [id number] 2.16.840.1.430273.3.579.2. 174 1994 Unknown [id number] 2.16.840.1.609011.3.579.2. 174 1994 Unknown [id number] 2.16.840.1.936837.3.579.2. 174 1994 Unknown [id number] 2.16.840.1.171002.3.579.2. 174 1994 Unknown [id number] 2.16.840.1.794725.3.579.2. 174 1994 Unknown [id number] 2.16.840.1.953012.3.579.2. 174 1994 Unknown [id number] 2.16.840.1.196672.3.579.2. 174 1994 Unknown [id number] 2.16.840.1.784414.3.579.2. 174 1994 Unknown [id number] 2.16.840.1.161892.3.579.2. 174 1994 Unknown [id number] 2.16.840.1.350278.3.579.2. 174 1994 Unknown [id number] 2.16.840.1.699254.3.579.2. 174 1994 Unknown [id number] 2.16.840.1.185953.3.579.2. 174 1994 Unknown [id number] 2.16.840.1.809831.3.579.2. 174 1994 Unknown [id number] 2.16.840.1.593718.3.579.2. 1258 1994 Unknown [id number] 2.16.840.1.467718.3.579.2. 1258 1994 Unknown [id number] 2.16.840.1.133821.3.579.2. 1258 1994 Unknown [id number] 2.16.840.1.823572.3.579.2. 1258 1994 Unknown [id number] 2.16.840.1.211028.3.579.2. 1258 1994 Unknown [id number] 2.16.840.1.469851.3.579.2. 1258 1994 Unknown [id number] 2.16.840.1.193372.3.579.2. 1258 1994 Unknown [id number] 2.16.840.1.410494.3.579.2. 1258 1994 Unknown [id number] 2.16.840.1.089752.3.579.2. 1258 1994 Unknown [id number] 2.16.840.1.659067.3.579.2. 1259 1959 Unknown [id number] 1.2.840.009503.1.13.239.2. 7.3.743257.315 Social History Date Type Detail Facility Start: 09-14-2021 End: 09-18-2024 Tobacco smoking status [facility] Never smoker [employer] Work Phone: Start: 09-14-2021 End: 09-18-2024 Tobacco use and exposure Never used [employer] Start: 09-14-2021 End: 08-21-2024 Alcohol intake Current non-drinker of alcohol (finding) [employer] Work Phone: Start: 1995 Sex Assigned At Not on file [employer] Work Phone: Start: 11-24-2022 End: 01-10-2023 Exposure to SARS-CoV-2 (event) Not sure [employer] Tobacco smoking status Never [facility] Start: 07-19-2023 End: 02-07-2025 Sex Assigned At Female [facility] Start: 12-04-2022 End: 01-10-2023 History SDOH Alcohol Frequency 1 [employer] Work Phone: Start: 07-19-2023 End: 02-07-2025 History of Social function [employer] How often to you hav e a drink containing alcohol? Never [employer] (I/We) worried wheth er (my/our) food would run out before (I/we) got money to buy more. Never true [employer] At any time in the p ast 12 months, were you homeless or living in nursing home [including now]? No [employer] Start: 1995 Sex Assigned At Female [employer] Start: 07-19-2023 Gender identity Identifies as female gender (finding) [employer] Start: 07-19-2023 Sexual orientation Heterosexual (finding) [facility] [employer] [facility] Start: 07-16-2024 [facility] Start: 09-18-2024 End: 02-28-2025 Alcoholic beverage intake Lifetime non-drinker (finding) [facility] Start: 01-03-2013 [facility] Functional Status Date Assessment Result Facility 12-08-2022 Functional Status N/A [facility] 06-01-2022 Functional Status N/A [facility] Clinical Notes 06-01-2022 to 02-28-2025 Marlene Olea, RUTH - 02/28/2025 11:10 AM Clara Seals, PT [...] nursing note reviewed. Exam conducted with a mobile home mechanic present. Vitals: Estimated body mass index is [...] Gary Robison DO documented in this encounter [facility] 02-14-2025 History of Present illness Narrative [facility] Date: 02/14/2025 Patient Name: Meena Lucero : 1995 Pt No Showed Appt- Follow up call, left voicemail for patient to call back to reschedule if wants. Clara Castrejon, PT Date: 02/14/2025 documented in this encounter [facility] 02-13-2025 History of Present illness Narrative [...] nursing note reviewed. Exam conducted with a mobile home mechanic present. Vitals: Estimated body mass index is [...] Gary Robison DO documented in this encounter [facility] 01-29-2025 History of Present illness Narrative Images from the original note were not included. [facility] Outpatient Physical Therapy Daily Note Date: 01/29/2025 Patient Name: Meena Lucero : 1995 (29 y.o.) Referring Provider (secondary): Dr. Partida Diagnosis: R buttock pain, sacral pain Treatment Diagnosis: back pain, SI pain Onset Date: 09/28/24 (Referral) PT Insurance Information: [facility] Total # of Visits Approved: 16 [...] pelvic stability-Met STG Goal 3 Status:: Met Senior Care Goals Time Frame for Die Lay Out Worker Goals : 16 [employer] Out Worker Goal 1: Improve functional mobility with Oswestry score <15/50 (from 22/50) Senior Care Goal 2: Decrease R SI pain 4/10 at worst x3 days Treatment Tolerance: Treatment Tolerance: Tolerated treatment well. Post Treatment Pain: 4/10 Time In: 9:00 Time Out : 9:33 Timed Code Treatment Minutes: 33 Minutes Total Treatment Time: 33 Minutes Clara Castrejon, PT Date: 01/29/2025 documented in this encounter [facility] 01-16-2025 History of Present illness [...] nursing note reviewed. Exam conducted with a mobile home mechanic present. Vitals: Estimated body mass index is [...] Gary Robison DO documented in this encounter [facility] 01-15-2025 History of Present illness Narrative Images from the original note were not included. [facility] Outpatient Physical Therapy Daily Note Date: 01/15/2025 Patient Name: Meena Lucero : 1995 (29 y.o.) Referring Provider (secondary): Dr. Partida Diagnosis: R buttock pain, sacral pain Treatment Diagnosis: back pain, SI pain Onset Date: 09/28/24 (Referral) PT Insurance Information: [facility] Total # of Visits Approved: 16 Per [...] pelvic stability-Met STG Goal 3 Status:: Met Die Lay Out Worker Goals Time Frame for Die Lay Out Worker Goals : 16 Die Lay Out Worker Goal 1: Improve functional mobility with Oswestry score <15/50 (from 22/50) Die Lay Out Worker Goal 2: Decrease R SI pain 4/10 at worst x3 days Treatment Tolerance: Treatment Tolerance: Tolerated treatment well. Post Treatment Pain: 5/10 Time In: 9:05 Time Out : 9:35 Timed Code Treatment Minutes: 30 Minutes Total Treatment Time: 30 Minutes Clara Castrejon, JASPER Date: 01/15/2025 documented in this encounter [facility] 01-12-2025 History of Present illness Narrative Images from the original note were not included. [facility] Outpatient Physical Therapy Daily Note Date: 01/12/2025 Patient Name: Meena Lucero : 1995 (29 y.o.) Referring Provider (secondary): Dr. Partida Diagnosis: R buttock pain, sacral pain Treatment Diagnosis: back pain, SI pain Onset Date: 09/28/24 (Referral) PT Insurance Information: [facility] Total # of Visits Approved: 16 [...] pelvic stability-Met STG Goal 3 Status:: Met Senior Care Goals Time Frame for Die Lay Out Worker Goals : 16 Senior Care Goal 1: Improve functional mobility with Oswestry score <15/50 (from 22/50) Die Lay Out Worker Goal 2: Decrease R SI pain 4/10 at worst x3 days Treatment Tolerance: Treatment Tolerance: Tolerated treatment well. Post Treatment Pain: 3/10 Time In: 8:13 Time Out : 8:54 Timed Code Treatment Minutes: 41 Minutes Total Treatment Time: 41 Minutes Clara Castrejon, PT Date: 01/12/2025 documented in this encounter [facility] 01-10-2025 History of Present illness Narrative Images from the original note were not included. [facility] Outpatient Physical Therapy Daily Note Date: 01/10/2025 Patient Name: Meena Lucero : 1995 (29 y.o.) Referring Provider (secondary): Dr. Partida Diagnosis: R buttock pain, sacral pain Treatment Diagnosis: back pain, SI pain Onset Date: 09/28/24 (Referral) PT Insurance Information: [facility] Total # of Visits Approved: 16 Per [...] pelvic stability-Met STG Goal 3 Status:: Met Die Lay Out Worker Goals Time Frame for Die Lay Out Worker Goals : 16 Senior Care Goal 1: Improve functional mobility with Oswestry score <15/50 (from 22/50) Die Lay Out Worker Goal 2: Decrease R SI pain 4/10 at worst x3 days Treatment Tolerance: Treatment Tolerance: Tolerated treatment well. Post Treatment Pain: 4/10 Time In: 0902 Time Out: 0933 Timed Code Treatment Minutes: 31 Minutes Total Treatment Time: 31 Minutes Austen Puga PTA Date: 01/10/2025 documented in this encounter [facility] 01-05-2025 History of Present illness Narrative Images from the original note were not included. [facility] Outpatient Physical Therapy Daily Note Date: 01/05/2025 Patient Name: Meena Lucero : 1995 (29 y.o.) Referring Provider (secondary): Dr. Partida Diagnosis: R buttock pain, sacral pain Treatment Diagnosis: back pain, SI pain Onset Date: 09/28/24 (Referral) PT Insurance Information: [facility] Total # of Visits Approved: 16 [...] pelvic stability-Met STG Goal 3 Status:: Met Die Lay Out Worker Goals Time Frame for Die Lay Out Worker Goals : 16 Senior Care Goal 1: Improve functional mobility with Oswestry score <15/50 (from 22/50) Die Lay Out Worker Goal 2: Decrease R SI pain 4/10 at worst x3 days Treatment Tolerance: Treatment Tolerance: Tolerated treatment well. Post Treatment Pain: 5/10 Time In: 0802 Time Out: 0838 Timed Code Treatment Minutes: 36 Minutes Total Treatment Time: 36 Minutes Austen Puga, VITA Date: 01/05/2025 documented in this encounter [facility] 01-02-2025 History of Present illness Narrative Images from the original note were not included. [facility] Outpatient Physical Therapy Daily Note Date: 01/02/2025 Patient Name: Meena Lucero : 1995 (29 y.o.) Referring Provider (secondary): Dr. Partida Diagnosis: R buttock pain, sacral pain Treatment Diagnosis: back pain, SI pain Onset Date: 09/28/24 (Referral) PT Insurance Information: [facility] Total # of Visits Approved: 16 [...] pelvic stability-Met STG Goal 3 Status:: Met Die Lay Out Worker Goals Time Frame for Senior Care Goals : 16 Senior Care Goal 1: Improve functional mobility with Oswestry score <15/50 (from 22/50) Senior Care Goal 2: Decrease R SI pain 4/10 at worst x3 days Treatment Tolerance: Treatment Tolerance: Tolerated treatment well. Post Treatment Pain: 8/10 Time In: 1114 Time Out : 1152 Timed Code Treatment Minutes: 37 Minutes Total Treatment Time: 37 Minutes Lauryn Edwards,EMT P Date: 01/02/2025 documented in this encounter [facility] 12-29-2024 History of Present illness Narrative Images from the original note were not included. [facility] Outpatient Physical Therapy Daily Note Date: 12/29/2024 Patient Name: Meena Lucero : 1995 (29 y.o.) Referring Provider (secondary): Dr. Partida Diagnosis: R buttock pain, sacral pain Treatment Diagnosis: back pain, SI pain Onset Date: 09/28/24 (Referral) PT Insurance Information: [facility] Total # of Visits Approved: 16 [...] pelvic stability-Met STG Goal 3 Status:: Met Die Lay Out Worker Goals Time Frame for Die Lay Out Worker Goals : 16 Die Lay Out Worker Goal 1: Improve functional mobility with Oswestry score <15/50 (from 22/50) Die Lay Out Worker Goal 2: Decrease R SI pain 4/10 at worst x3 days Treatment Tolerance: Treatment Tolerance: Tolerated treatment well. Post Treatment Pain: 4/10 Time In: 11;15 Time Out : 11:43 Timed Code Treatment Minutes: 28 Minutes Total Treatment Time: 28 Minutes Clara Castrejon, PT Date: 12/29/2024 documented in this encounter [facility] 12-27-2024 History of Present illness Narrative Images from the original note were not included. [facility] Outpatient Physical Therapy Daily Note Date: 12/27/2024 Patient Name: Meena Lucero : 1995 (29 y.o.) Referring Provider (secondary): Dr. Partida Diagnosis: R buttock pain, sacral pain Treatment Diagnosis: back pain, SI pain Onset Date: 09/28/24 (Referral) PT Insurance Information: [facility] Total # of Visits Approved: 16 [...] pelvic stability STG Goal 3 Status:: Met Die Lay Out Worker Goals Time Frame for Senior Care Goals : 16 Die Lay Out Worker Goal 1: Improve functional mobility with Oswestry score <15/50 (from 22/50) Senior Care Goal 2: Decrease R SI pain 4/10 at worst x3 days Treatment Tolerance: Treatment Tolerance: Tolerated treatment well. Post Treatment Pain: 5/10 Time In: 0900 Time Out: 0935 Timed Code Treatment Minutes: 35 Minutes Total Treatment Time: 35 Minutes Austen Puga PTA Date: 12/27/2024 documented in this encounter [facility] 12-22-2024 History of Present illness Narrative Images from the original note were not included. [facility] Outpatient Physical Therapy Daily Note Date: 12/22/2024 Patient Name: Meena Lucero : 1995 (29 y.o.) Referring Provider (secondary): Dr. Partida Diagnosis: R buttock pain, sacral pain Treatment Diagnosis: back pain, SI pain Onset Date: 09/28/24 (Referral) PT Insurance Information: [facility] Total # of Visits Approved: 16 [...] hip abd 4+/5 for improved pelvic stability Die Lay Out Worker Goals Time Frame for Die Lay Out Worker Goals : 16 Die Lay Out Worker Goal 1: Improve functional mobility with Oswestry score <15/50 (from 22/50) Die Lay Out Worker Goal 2: Decrease R SI pain 4/10 at worst x3 days Treatment Tolerance: Treatment Tolerance: Tolerated treatment well. Post Treatment Pain: 5-6/10 Time In: 0801 Time Out: 0836 Timed Code Treatment Minutes: 35 Minutes Total Treatment Time: 35 Minutes Austen Puga, VITA Date: 12/22/2024 documented in this encounter [facility] 12-20-2024 History of Present illness Narrative Images from the original note were not included. [facility] Outpatient Physical Therapy Daily Note Date: 12/20/2024 Patient Name: Meena Lucero : 1995 (29 y.o.) Referring Provider (secondary): Dr. Partida Diagnosis: R buttock pain, sacral pain Treatment Diagnosis: back pain, SI pain Onset Date: 09/28/24 (Referral) PT Insurance Information: [facility] Total # of Visits Approved: 16 [...] hip abd 4+/5 for improved pelvic stability Senior Care Goals Time Frame for Die Lay Out Worker Goals : 16 Senior Care Goal 1: Improve functional mobility with Oswestry score <15/50 (from 22/50) Senior Care Goal 2: Decrease R SI pain 4/10 at worst x3 days Treatment Tolerance: Treatment Tolerance: Tolerated treatment well. Post Treatment Pain: 6/10 Time In: 9;00 Time Out : 9:26 Timed Code Treatment Minutes: 26 Minutes Total Treatment Time: 26 Minutes Clara Castrejon, PT Date: 12/20/2024 documented in this encounter [facility] 12-19-2024 History of Present illness [...] PO) Oral ALLERGIES Allergies Allergen Reactions Hydrocodone [place] Oil Hives Codeine Rash and Unknown Chest [...] nursing note reviewed. Exam conducted with a mobile home mechanic present. Vitals: Estimated body mass index is [...] Gary Robison DO documented in this encounter [facility] 12-13-2024 History of Present illness Narrative Images from the original note were not included. [facility] Outpatient Physical Therapy Daily Note [...] hip abd 4+/5 for improved pelvic stability Die Lay Out Worker Goals Time Frame for Senior Care Goals : 16 Die Lay Out Worker Goal 1: Improve functional mobility with Oswestry score <15/50 (from ) Senior Care Goal 2: Decrease R SI pain 4/10 at worst x3 days Treatment Tolerance: Treatment Tolerance: Tolerated treatment well. Post Treatment Pain: 6/10 Time In: 0945 Time Out: 1018 Timed Code Treatment Minutes: 33 Minutes Total Treatment Time: 33 Minutes Austen Puga PTA Date: 12/13/2024 documented in this encounter [facility] 12-06-2024 History of Present illness Narrative Images from the original note were not included. [facility] Outpatient Physical Therapy Daily Note [...] hip abd 4+/5 for improved pelvic stability Die Lay Out Worker Goals Time Frame for Senior Care Goals : 16 Senior Care Goal 1: Improve functional mobility with Oswestry score <15/50 (from 22/50) Die Lay Out Worker Goal 2: Decrease R SI pain 4/10 at worst x3 days Treatment Tolerance: Treatment Tolerance: Tolerated treatment well. Post Treatment Pain: 6/10 Time In: 9:45 Time Out : 10:18 Timed Code Treatment Minutes: 33 Minutes Total Treatment Time: 33 Minutes Clara Castrejon, PT Date: 12/06/2024 Images from the original note were not included. [facility] Outpatient Physical Therapy Progress Report Date: 12/06/2024 Patient: Meena Lucero : 1995 Referring Provider (secondary): Dr. Partida Diagnosis: R buttock pain, sacral pain Treatment Diagnosis: back pain, SI pain Onset Date: 09/28/24 (Referral) PT Insurance Information: [facility] Total # of Visits Approved: 16 [...] hip abd 4+/5 for improved pelvic stability Senior Care Goals Time Frame for Die Lay Out Worker Goals : 16 Senior Care Goal 1: Improve functional mobility with Oswestry score <15/50 (from 22/50) Die Lay Out Worker Goal 2: Decrease R SI pain 4/10 at worst x3 days Clara Castrejon, PT Date: 12/06/2024 documented in this encounter [facility] 11-20-2024 History of Present illness [...] hours PRN ALLERGIES Allergies Allergen Reactions Hydrocodone [place] Oil Hives Codeine Rash and Unknown Chest [...] of: CANDACE Avitia documented in this encounter [facility] 10-17-2024 History of Present illness [...] hours PRN ALLERGIES Allergies Allergen Reactions Hydrocodone [place] Oil Hives Codeine Rash and Unknown Chest [...] nursing note reviewed. Exam conducted with a mobile home mechanic present. Vitals: Estimated body mass index is [...] Gary Robison DO documented in this encounter [facility] 10-17-2024 History of Present illness Narrative Occupational Therapy [facility] Date: 10/17/2024 Patient Name: Meena Lucero : 1995 Pt Cancelled Appt due to no reason for cancel Trinity Keys Kimberly Date: 10/17/2024 documented in this encounter [facility] 10-12-2024 History of Present illness Narrative Images from the original note were not included. [facility] Outpatient Physical Therapy Daily Note [...] hip abd 4+/5 for improved pelvic stability Senior Care Goals Time Frame for Die Lay Out Worker Goals : 16 Senior Care Goal 1: Improve functional mobility with Oswestry score <15/50 (from 22/50) Die Lay Out Worker Goal 2: Decrease R SI pain 4/10 at worst x3 days Post Treatment Pain: 4/10 Time In: 8:00 Time Out : 8:33 Timed Code Treatment Minutes: 33 Minutes Total Treatment Time: 33 Minutes Clara Castrejon, PT Date: 10/12/2024 documented in this encounter [facility] 10-04-2024 History of Present illness Narrative Physical Therapy [facility] Date: 10/04/2024 Patient Name: Meena Lucero : 1995 Pt Cancelled Appt due to therapist ill Trinity Harris Date: 10/04/2024 documented in this encounter [facility] 09-18-2024 History of Present illness [...] hours PRN ALLERGIES Allergies Allergen Reactions Hydrocodone [place] Oil Hives Codeine Rash and Unknown Chest [...] nursing note reviewed. Exam conducted with a mobile home mechanic present. Vitals: Estimated body mass index is [...] or undercooked meat, and stay away from [facility]. Patient has been consulted regarding any [...] Gary Robison DO documented in this encounter [facility] 08-18-2024 History of Present illness [...] Date CHOLECYSTECTOMY TONSILLECTOMY Allergies Allergen Reactions Hydrocodone [place] Oil Hives Codeine Rash and Unknown Chest [...] screen, urine; Future Nurse Note: Pt given Cre[place] 21 and advised to have labs done [...] Daxa Martinez MA documented in this encounter [facility] 07-27-2024 History of Present illness Narrative Images from the original note were not included. [facility] Outpatient Physical Therapy Daily Note Date: 07/27/2024 Patient Name: Meena Lucero : 1995 (28 y.o.) Referring Provider (secondary): Dr. Partida Diagnosis: Sacral pain Treatment Diagnosis: SI pain Onset Date: 05/29/24 PT [facility] Information[facility] Total # of Visits Approved: 16 Per [...] Goals Short Term Goal 1: STG= LTG Die Lay Out Worker Goals Time Frame for Senior Care Goals : 16 visits Senior Care Goal 1: Decrease subjective SI/right gluteal pain to <3/10 with activity and transitional movements Post Treatment Pain: 5/10 Time In: 0910 Time Out : 0935 Timed Code Treatment Minutes: 25 Minutes Total Treatment Time: 25 Minutes Onel Davis, PT Date: 07/27/2024 documented in this encounter [facility] 07-06-2024 History of Present illness Narrative Images from the original note were not included. [facility] Outpatient Physical Therapy Daily Note Date: 07/06/2024 Patient Name: Meena Lucero : 1995 (28 y.o.) Referring Provider (secondary): Dr. Olewiler Diagnosis: Sacral pain Treatment Diagnosis: SI pain [...] strengthening for self-correction of pelvic asymetry- MET Die Lay Out Worker Goals Time Frame for Die Lay Out Worker Goals : 10 visits Senior Care Goal 1: Decrease subjective SI/right gluteal pain to <3/10 with activity and transitional movements Die Lay Out Worker Goal 2: Upgrade HEP for pelvic stab ex Die Lay Out Worker Goal 3: Maintain symetrical pelvic alignment for 5 consecutive days Post Treatment Pain: 4/10 Time In: 0910 Time Out : 0945 Timed Code Treatment Minutes: 35 Minutes Total Time: 35 Minutes ASIA MIX PT Date: 07/06/2024 documented in this encounter [facility] 06-29-2024 History of Present illness Narrative Images from the original note were not included. [facility] Outpatient Physical Therapy Daily Note [...] strengthening for self-correction of pelvic asymetry- MET Die Lay Out Worker Goals Time Frame for Die Lay Out Worker Goals : 10 visits Senior Care Goal 1: Decrease subjective SI/right gluteal pain to <3/10 with activity and transitional movements Die Lay Out Worker Goal 2: Upgrade HEP for pelvic stab ex Senior Care Goal 3: Maintain symetrical pelvic alignment for 5 consecutive days Post Treatment Pain: 2-3/10 Time In: 0915 Time Out : 0955 Timed Code Treatment Minutes: 35 Minutes Total Time: 40 Minutes ASIA MIX PT Date: 06/29/2024 documented in this encounter [facility] 01-10-2023 Hospital Discharge instructions Best Canales MD - 01/10/2023 3:17 PM EST There was a possible concern for fracture of the fibula. Please follow-up with Dr. Rehman for further evaluation and be sure to use crutches and be nonweightbearing until then. The following attachments cannot be sent through Care Everywhere.Ankle Sprain (Angolan)documented in this encounter [facility] Work Phone: 12-08-2022 Hospital Discharge instructions [...] and water are not available, use hand cottage master. Make sure that all people in your household wash their hands well and often. Take qpgq-zrs-qopmwtk and prescription medicines only as told by [...] and water are not available, use hand cottage master. This information is not intended to replace advice given to you by your health care provider. Make sure you discuss any questions you have with your health care provider. Document Released: 11/08/2006 Document Revised: 04/26/2020 Document Reviewed: 09/13/2019 [employer] Patient Education [address] Follow Up Care 12/08/2022 09:17:52 With:Keyon DAVIS MD, FAM Address: When: only if needed [facility] Kim 12-04-2022 Hospital Discharge instructions Jason Tracy MD - 12/04/2022 4:33 PM EST Increase fluids at home. Take Zofran for any nausea. Try Imodium/loperamide for diarrhea. Call primary care doctor for close follow-up. Use Tylenol or Motrin to keep fever down. The following attachments cannot be sent through Care Everywhere.Viral Infections (Angolan)documented in this encounter [facility] [employer] Work Phone: 06-01-2022 Hospital Discharge instructions Patient [...] 07/20/2005 Document Revised: 10/21/2018 Document Reviewed: 09/21/2018 [employer] Patient Education [address] 06/01/2022 13:15:39 Carpal Tunnel Syndrome Carpal Tunnel [...] Having a job, such as being a industrial hygenist or a parimutuel ticket cashier, that requires you to repeatedly move [...] 3 times per day. General instructions Take tgun-pgw-mdotilb and prescription medicines only as told by [...] 11/05/2001 Document Revised: 03/17/2019 Document Reviewed: 03/17/2019 [employer] Patient Education [address] Follow Up Care 05/28/2022 08:22:05 With:Meena Carl CNP Address: When: only if needed [facility] Evaluation + Plan note [facility] Primary [facility] Evaluation note Diagnosis Subacute bronchitis- Primary Acute bronchitis documented in this encounter [place] Phone: evaluation note* Diagnosis Left wrist pain Pain in joint, forearm documented in this encounter Friday Phone: evaluation note* Diagnosis Viral illness- Primary Unspecified viral infection, in conditions classified elsewhere and of unspecified site documented in this encounter Friday Phone: evaluation note* Diagnosis Injury of right ankle, initial encounter- Primary documented in this encounter Friday Phone: evaluation note* Diagnosis Other closed fracture of proximal end of right fibula with routine healing, subsequent encounter documented in this encounter Friday Phone: evaluation note* Diagnosis First trimester state, [...] for diabetes mellitus documented in this encounter [facility] HealthcareEvaluation note* Diagnosis Second trimester state, incidental 24 weeks gestation of Diabetes mellitus screening Screening for diabetes mellitus Low platelet count (CMS/HCC) Thrombocytopenia affecting , antepartum (CMS/HCC) 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, antepartum documented in this encounter [facility] HealthcareEvaluation note* Diagnosis 28 weeks gestation of Third trimester state, incidental Heartburn during in third trimester documented in this encounter [facility] HealthcareEvaluation note* Diagnosis Third trimester state, incidental 32 weeks gestation of Excessive growth affecting management of , antepartum, single or unspecified fetus documented in this encounter [facility] HealthcareEvaluation note* Diagnosis 34 weeks gestation of Third trimester state, incidental Low platelet count (CMS/HCC) 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, antepartum Excessive growth affecting management of , antepartum, single or unspecified fetus [facility] N[facility] No data available for this section [facility] Hospital Discharge instructions* Attachments The following attachments cannot be sent through Care Everywhere. * Bronchitis (Angolan) [facility] progress note No data available for this section [facility] Reason for referral (narrative) Referred by: Meena Carl CNP [facility] Advance Directives Documents on File Type Date Recorded Patient Warehouse Lead Expl anation ACP-Advance Directive ACP-Power of Chairperson Anesthesiology Summary Purpose Family History No Family History [...] Care Team (unrecognized sect ion and content) Dispensary Attendant Relationship Specialty Start Date End Date Keyon Davis MD [address] [place] [address] PCP - General Family Medicine 12/04/22 Dispensary Attendant Relationship Specialty Start Date End Date Keyon Davis MD [address] [place] [address] [place] [address] PCP - General Family Medicine 12/04/22 Dispensary Attendant Relationship Specialty Start Date End Date Keyon Davis MD [address] [place] [address] PCP - General Family Medicine 12/04/22 Dispensary Attendant Relationship Specialty Start Date End Date Óscar Nassar DNP [address] [place] [address] PCP - General Family Nurse Practitioner 03/14/24 Dispensary Attendant Relationship Specialty Start Date End Date Óscar Nassar DNP [address] [place] [address] PCP - General Family Nurse Practitioner 03/14/24 Dispensary Attendant Relationship Specialty Start Date End Date Óscar Nassar DNP [address] [place] [phone] PCP - General Family Nurse Practitioner 03/14/24 Dispensary Attendant Relationship Specialty Start Date End Date Óscar Nassar DNP [address] [place], [place] [phone] PCP - General Family Nurse Practitioner 03/14/24 Dispensary Attendant Relationship Specialty Start Date End Date Keyon Davis MD [address] [place], [place] [address]k[place]y [place] [phone] PCP - General 05/12/23 Gary Robison DO [address] [place] [address] [place] [address] PCP - [facility] 02/21/24 Dispensary Attendant Relationship Specialty Start Date End Date eKyon Davis MD [address] [place] [address] Dr [place] [phone] PCP - General 05/12/23 Gary Robison DO [address] [place] [address] [place] [address] PCP - [facility] 02/21/24 Dispensary Attendant Relationship Specialty Start Date End Date Óscar Nassar DNP [address] [place], [place] [phone] PCP - General Family Nurse Practitioner 03/14/24 Dispensary Attendant Relationship Specialty Start Date End Date Keyon Davis MD [address] [place] [phone] PCP - General 05/12/23 Gary Robison DO [facility] [place] [address] PCP [place] [facility] 02/21/24 Dispensary Attendant Relationship Specialty Start Date End Date Keyon Davis MD [address] [place], [place] [address]y [place] [phone] PCP - General 05/12/23 Gary Robison, [facility] [place] [address] PCP [place] [facility] 02/21/24 Dispensary Attendant Relationship Specialty Start Date End Date Keyon Davis MD [address] [place], [place] [address]kristy [place], [phone] PCP - General 05/12/23 Gary Robison, [address] [place], [place] [address] [address] PCP [place] [facility] 02/21/24 Dispensary Attendant Relationship Specialty Start Date End Date Keyon Davis MD [facility] [place] [phone] PCP - General 05/12/23 Gary Robison DO [facility] [place] [address] PCP [place] [facility] 02/21/24 Dispensary Attendant Relationship Specialty Start Date End Date Keyon Davis MD [address] [place] [phone] PCP - General 05/12/23 Gary Robison DO [facility] [place] [address] PCP - [facility] 02/21/24 Dispensary Attendant Relationship Specialty Start Date End Date Óscar Nassar DNP [address] [place] [address] PCP - General Family Nurse Practitioner 03/14/24 Dispensary Attendant Relationship Specialty Start Date End Date Keyon Davis MD [address] [place], [place] [address]k[place]y [place] [phone] PCP - General 05/12/23 Gary Robison DO [address] [place], [place] [address] [address] PCP [place] [facility] 02/21/24 Dispensary Attendant Relationship Specialty Start Date End Date Keyon Davis MD [facility] [place] [phone] PCP - General 05/12/23 Gary Robison DO [facility] [place], [place] [phone] PCP [place] [facility] 02/21/24 Dispensary Attendant Relationship Specialty Start Date End Date Óscar Nassar DNP [address] [place] [address] PCP - General Family Nurse Practitioner 03/14/24 Dispensary Attendant Relationship Specialty Start Date End Date Keyon Davis MD [address] [place] [phone] PCP - General 05/12/23 Gary Robison DO [facility] [place] [phone] PCP [place] [facility] 02/21/24 Dispensary Attendant Relationship Specialty Start Date End Date Keyon Davis MD [address] [place] [phone] PCP - General 05/12/23 Gary Robison DO [facility] [place] [address] PCP [place] [facility] 02/21/24 Dispensary Attendant Relationship Specialty Start Date End Date Óscar Nassar DNP [address] [place], [place] [phone] PCP - General Family Nurse Practitioner 03/14/24 Dispensary Attendant Relationship Specialty Start Date End Date Keyon Davis MD [facility] [place] [phone] PCP - General 05/12/23 Gary Robison DO [facility] [place] [address] PCP [place] [facility] 02/21/24 Dispensary Attendant Relationship Specialty Start Date End Date Keyon Davis MD [facility] [place] [phone] PCP - General 05/12/23 Gary Robison DO [address] [place] [address] [place] [address] PCP - [facility] 02/21/24 INFORMATION SOURCE (unrecogn ized section and content) DATE CREATED AUTHOR 02/01/2023 Papito Saleem [facility] DATE CREATED AUTHOR AUTHOR'S ORGANIZ ATION 04/01/2023 [facility] DATE CREATED AUTHOR AUTHOR'S ORGANIZ ATION 02/15/2025 Kirsty Meza spimilady DATE CREATED AUTHOR AUTHOR'S ORGANIZ ATION 03/03/2025 [facility] FOR RECORDS PERTAINING TO PATIENTS WHO [...] BE BASED ON THE PRIMARY CLINICAL RECORDS. [facility] [email or web address]. provides no warranty or guarantee of the accuracy or completeness of information in this document.
[2025-03-09 08:35] VITALS: BP 122/67; PULSE 82
== END 2025-03-09 09:07 | disposition home or self-care (01) ==
LOC: FBCO 08:26 → FBC 08:28
PROVIDERS: Visit Provider Obstetrics & Gynecology
DX: O43.893 Other placental disorders, third trimester (principal); Z3A.35 35 weeks gestation of pregnancy
CPT/HCPCS: 59025

== ENCOUNTER 2025-03-13 08:10 | Outpatient (OUT) | payer OTHER, SELFPAY ==
--- NOTE | 2025-03-13 | US_ITS ---
The [address] [address] Patient Name: RUEL READ MRN: [id number] date: 1995 Sex: F Assigned Patient Location: [facility] Current Patient Location: Accession/Order Number: [id number] Exam Date: 03/13/2025 09:26 Report Date: 03/13/2025 09:27 At the request of: BEVERLY PINTO Procedure: US OB BPP w non-stress Ultrasound biophysical profile There is adequate breathing movement, gross body movement, tone and amniotic fluid volume for total score of 8 out of 8. The amniotic fluid index is 12.4 cm within normal limits. The heart rate is 139 bpm. US/US OB BPP w non-stress IMPRESSION: Adequate ultrasound biophysical profile. Impression dictated by: Jones Clemente M.D.03/13/2025 9:27 AM Dictation Location: [place] Electronically authenticated by: [id number] Y Date: 03/13/2025 09:27
[2025-03-13 09:06] VITALS: BP 121/74; PULSE 81
== END 2025-03-13 09:12 | disposition home or self-care (01) ==
LOC: US 08:10 → FBC 08:12
PROVIDERS: Visit Provider Physician Assistant
DX: O43.113 Circumvallate placenta, third trimester (principal); Z3A.36 36 weeks gestation of pregnancy
CPT/HCPCS: 76818

== ENCOUNTER 2025-03-16 08:23 | Outpatient (OUT) | payer OTHER, SELFPAY ==
[2025-03-16 08:32] VITALS: BP 117/77; PULSE 77
== END 2025-03-16 08:55 | disposition home or self-care (01) ==
LOC: FBCO 08:23 → FBC 08:25
PROVIDERS: Visit Provider Obstetrics & Gynecology
DX: O43.899 Other placental disorders, unspecified trimester (principal)
CPT/HCPCS: 59025

== ENCOUNTER 2025-03-19 11:57 | Outpatient (REF) | payer OTHER, SELFPAY | END 2025-03-19 11:58 | disposition home or self-care (01) | LOC: LAB 11:57 | PROVIDERS: Visit Provider Obstetrics & Gynecology | DX: Z34.93 Encounter for supervision of normal pregnancy, unspecified, third trimester (principal) | CPT/HCPCS: 87081 ==

== ENCOUNTER 2025-03-20 08:21 | Outpatient (OUT) | payer OTHER, SELFPAY ==
--- NOTE | 2025-03-20 08:24 | US_ITS ---
The [place] [id number] Patient Name: RUEL READ MRN: [id number] date: 1995 Sex: F Assigned Patient Location: [facility] Current Patient Location: Accession/Order Number: [id number] Exam Date: 03/20/2025 09:36 Report Date: 03/20/2025 09:38 At the request of: BEVERLY PINTO Procedure: US OB BPP w non-stress BIOPHYSICAL PROFILE: CLINICAL INFORMATION: Circumvallate placenta during COMPARISON: 03/13/2025 There is a single live intrauterine gestation in cephalic presentation. The reported gestational age is 37 weeks 2 days. The heart rate beats per minute. FINDINGS: TONE: 1 or more episodes of activity extension and flexion of extremity or opening and closing of the hand [Y] 2/2 GROSS BODY MOVEMENTS: 3 or more discrete body or limb movements [Y] 2/2 BREATHING MOVEMENTS: 1 or more episodes of breathing lasting at least 30 seconds [Y] 2/2 MAXIMILIANO: A single deepest vertical pocket of amniotic fluid greater than 2 cm [Y] 2/2 MAXIMILIANO: 16.4 cm . This is in upper normal range. Total score: 8/8 US/US OB BPP w non-stress IMPRESSION: NORMAL BIOPHYSICAL PROFILE. Impression dictated by: Marlene Orellana M.D. 03/20/2025 9:38 AM Dictation Location: [place] [address] Electronically authenticated by: [id number] Y Date: 03/20/2025 09:38
[2025-03-20 09:03] VITALS: PULSE 71
== END 2025-03-20 09:38 | disposition home or self-care (01) ==
LOC: US 08:21 → FBC 08:23
PROVIDERS: Visit Provider Physician Assistant
DX: O43.893 Other placental disorders, third trimester (principal); Z3A.37 37 weeks gestation of pregnancy
CPT/HCPCS: 76818

== ENCOUNTER 2025-03-23 00:06 | Inpatient (IN) | payer OTHER, SELFPAY ==
[2025-03-23] VITALS (25 sets, daily range): BP systolic 99–141; BP diastolic 54–89; PULSE 53–95; TEMP 36.1–37.1
[2025-03-23] MEDS: 0.9 % SODIUM CHLORIDE 1,000 ML 125 ML IV (00:38)
[2025-03-23] MEDS: OXYTOCIN/0.9 % SODIUM CHLORIDE 10 UNITS/500 ML PLAST..BAG 6 UNIT IV (00:56)
[2025-03-23 00:57] LABS: Hematocrit 30.1 % (36.0-48.0); Hemoglobin 9.9 g/dL (12.0-16.0); Mean Corpuscular HGB Conc 32.9 g/dL (29.9-35.2); Mean Corpuscular Hemoglobin 25.7 pg (26.7-34.0); Mean Corpuscular Volume 78.2 fL (81.0-99.0); Mean Platelet Volume 12.8 fL (9.5-13.5); Platelet Count 147 10^3/uL (150-450); Red Blood Count 3.85 10^6/uL (4.20-5.40); Red Cell Distribution Width 13.8 % (11.0-15.0); White Blood Count 6.4 10^3/uL (4.0-11.0)
[2025-03-23] MEDS: AMPICILLIN SODIUM 2,000 MG in 0.9 % SODIUM CHLORIDE 100 ML 200 MG IV (00:57)
[2025-03-23 01:05] LABS: Amphetamine Screen Urine NEGATIVE (NEGATIVE); Barbiturates Screen Urine NEGATIVE (NEGATIVE); Benzodiazepines Screen Urine NEGATIVE (NEGATIVE); Buprenorphine Screen Urine NEGATIVE (NEGATIVE); Cannabinoid Screen Urine NEGATIVE (NEGATIVE); Cocaine Screen Urine NEGATIVE (NEGATIVE); Methadone Screen Urine NEGATIVE (NEGATIVE); Methamphetamines Screen Urine NEGATIVE (NEGATIVE); Opiate Screen Urine NEGATIVE (NEGATIVE); Oxycodone Screen Urine NEGATIVE (NEGATIVE); Phencyclidine Screen Urine NEGATIVE (NEGATIVE); Tricyclic Antidepressant Urine NEGATIVE (NEGATIVE)
[2025-03-23] MEDS: AMPICILLIN SODIUM 1,000 MG in 0.9 % SODIUM CHLORIDE 50 ML 100 MG IV ×2 (05:03→09:02)
[2025-03-23] MEDS: 0.9 % SODIUM CHLORIDE 1,000 ML 1000 ML IV (09:02)
[2025-03-23] MEDS: ROPIVACAINE HCL/PF 400 MG/200 ML PREMIX 6 MG EPIDURAL (09:40)
[2025-03-23] MEDS: OXYTOCIN/0.9 % SODIUM CHLORIDE 20 UNITS/1,000 ML PLAST..BAG 125 UNIT IV (09:51)
[2025-03-23] MEDS: LIDOCAINE HCL 1% 200 MG/20 ML MDV INJ (10:28)
[2025-03-23] MEDS: IBUPROFEN 600 MG TABLET PO (15:37)
[2025-03-23] MEDS: BENZOCAINE/MENTHOL 85 GRAM SPRAY BOTTLE 1 APPLIC TOPICAL (15:37)
[2025-03-23] MEDS: GLYCERIN/WITCH HAZEL PADS 1 PAD TOPICAL (15:37)
[2025-03-24 00:12] VITALS: BP 107/56; PULSE 56; TEMP 36.9
[2025-03-24] MEDS: IBUPROFEN 600 MG TABLET PO ×3 (02:32→22:02)
[2025-03-24 06:23] LABS: Basophils Percent Auto 0.3 % (0.2-2.0); Eosinophils Absolute Auto 0.1 10^3/uL (0.0-0.7); Eosinophils Percent Auto 1.4 % (0.9-7.0); Hematocrit 28.6 % (36.0-48.0); Hemoglobin 9.4 g/dL (12.0-16.0); Immature Granulocytes Abs Auto 0.03 10^3/uL (0.00-0.03); Immature Granulocytes Pct Auto 0.4 % (0.0-0.5); Lymphocytes Absolute Auto 2.1 10^3/uL (1.2-3.8); Lymphocytes Percent Auto 28.5 % (20.5-60.0); Mean Corpuscular HGB Conc 32.9 g/dL (29.9-35.2); Mean Corpuscular Hemoglobin 26.2 pg (26.7-34.0); Mean Corpuscular Volume 79.7 fL (81.0-99.0); Mean Platelet Volume 12.7 fL (9.5-13.5); Monocytes Absolute Auto 0.5 10^3/uL (0.3-0.8); Monocytes Percent Auto 7.5 % (1.7-12.0); Neutrophils Absolute Auto 4.5 10^3/uL (1.4-6.5); Neutrophils Percent Auto 61.9 % (43.0-75.0); Platelet Count 122 10^3/uL (150-450); Red Blood Count 3.59 10^6/uL (4.20-5.40); Red Cell Distribution Width 13.9 % (11.0-15.0); White Blood Count 7.2 10^3/uL (4.0-11.0)
--- NOTE | 2025-03-24 06:50 | PM.OBPN ---
OB - PN: Subj Subjective Patient comments: no complaints [place] status: doing well feeding status: exclusively Exam Constitutional Vital Signs, click to edit/add: Last Vital Signs Temp 98.5 F 03/24/25 00:12 Pulse 56 L 03/24/25 00:12 Resp 16 03/24/25 00:15 BP 107/56 03/24/25 00:12 O2 Del Method Room Air 03/24/25 00:15 Documenting provider has reviewed patient's vital signs: yes Common normals: no apparent distress General appearance: cooperative Orientation/consciousness: Yes awake, Yes oriented to person, Yes oriented to place and Yes oriented to time HENMT Common normals: normocephalic Eye Common normals: EOMs intact bilaterally General eye: normal appearance of both eyes Visual acuity: acuity normal Neck & C-Spine Common normals: full ROM and no lymphadenopathy Lymph Lymphatic: no lymphadenopathy noted Chest Common normals: inspection of chest normal Respiratory Common normals: normal respiratory effort, no retractions, no use of accessory muscles, clear to auscultation bilaterally and percussion normal Effort & inspection: able to speak in complete sentences Auscultation: clear to auscultation bilaterally Cardio Common normals: no JVD, regular rate and regular rhythm Rate: regular rate Rhythm: regular rhythm GI Common normals: Normal to inspection, nondistended, normoactive bowel sounds present Inspection: normal to inspection Common normals: no CVA tenderness Back & Pelvis Common normals: no CVA tenderness Extremity Common normals: normal to inspection Neuro Common normals: oriented x3 Sensorium/orientation: awake, alert, oriented to person, oriented to place and oriented to time Psych Common normals: mental status grossly normal, thought process normal, cooperative, affect normal, speech normal, activity/motor behavior normal, denies hallucinations, denies homicidal ideation and denies suicidal ideation Appearance: grossly normal Attitude: calm Activity/motor behavior: appropriate eye contact Results Labs Labs: Short CBC 03/24/25 Range/Units 06:07 WBC 7.2 (4.0-11.0) 10^3/uL Hgb 9.4 L (12.0-16.0) g/dL Hct 28.6 L (36.0-48.0) % Plt Count 122 L (150-450) 10^3/uL OB - PN: A/P Plan - Vaginal Delivery day: 1 Plan: discharge home Time Spent with Patient Time: Total time spent is greater than 50% in coordination of care (as documented) at patient's floor/unit and/or counseling patient: Total time spent with greater than 50% in coordination of care (as documented) at patient's floor/unit and/or counseling patient: less than 15 minutes
--- NOTE | 2025-03-24 07:38 | W.PC.ACHO ---
Registration Status: ADM IN Primary Language: Preferred Language: Amharic Report received from Laura SINCLAIR at 0700. Care assumed. Active Medications Generic Name Dose Route Start Last Admin Trade Name Magaly PRN Reason Stop Dose Admin Acetaminophen 650 mg 03/23/25 13:27 Acetaminophen 325 Mg Tablet PO Q6H PRN Mild Pain Al Hydroxide/Mg Hydroxide 2,400 mg 03/23/25 13:27 Magnesium Hydroxide 2,400 Mg/10 Ml Oral.Susp PO Q6H PRN Dyspepsia Benzocaine/Menthol 1 applic 03/23/25 13:27 03/23/25 15:37 Benzocaine/Menthol 85 Gram [place] Bottle TOPICAL 1 applic Q2H PRN Administration Pain Carboprost Tromethamine 250 mcg 03/23/25 00:01 Carboprost Tromethamine 250 Mcg/Ml 1 Ml Vial IM 03/25/25 00:01 Q15M PRN Bleeding Diphtheria/Pertussis/Tetanus Vacc 0.5 ml 03/25/25 09:00 Adacel Diph,Pertuss(Acell),Tet Vac/Pf 0.5 Ml Adult Syringe IM 03/25/25 09:01 .ONCE ONE Docusate Sodium 100 mg 03/24/25 09:00 Docusate Sodium 100 Mg Capsule PO BID CANDIDA Tranexamic Acid 1,000 mg/ 110 mls @ 440 mls/hr 03/23/25 00:01 Sodium Chloride IV 03/25/25 00:01 ONCE PRN Uterine Bleeding Ibuprofen 600 mg 03/23/25 13:27 03/24/25 02:32 Ibuprofen 600 Mg Tablet PO 600 mg Q6H PRN Administration Moderate Pain Lidocaine 5 ml 03/23/25 00:01 Lidocaine Viscous 2% 15 Ml Solution TOPICAL 03/25/25 00:04 ONCE PRN Pain Methylergonovine Maleate 0.2 mg 03/23/25 00:01 Methylergonovine Maleate 0.2 Mg/Ml Ampule IM 03/25/25 00:01 ONCE PRN Uterine Contractility/Contract Methylergonovine Maleate 0.2 mg 03/23/25 00:01 Methylergonovine Maleate 0.2 Mg Tablet PO 03/25/25 00:01 Q4H PRN Uterine Contractility/Contract Misoprostol 600 mcg 03/23/25 00:01 Misoprostol 100 Mcg Tablet PO 03/25/25 00:01 ONCE PRN Uterine Bleeding Misoprostol 800 mcg 03/23/25 00:01 Misoprostol 100 Mcg Tablet SL 03/25/25 00:01 ONCE PRN Uterine Bleeding Misoprostol 1,000 mcg 03/23/25 00:01 Misoprostol 100 Mcg Tablet SD 03/25/25 00:01 ONCE PRN Uterine Bleeding Ondansetron HCl 4 mg 03/23/25 00:01 Ondansetron Pf 4 Mg/2 Ml Vial IV Q6H PRN Nausea And Vomiting Ondansetron HCl 4 mg 03/23/25 00:01 Ondansetron 4 Mg Rapdis Tablet SL Q6H PRN Nausea And Vomiting Oxytocin 10 unit 03/23/25 00:01 Oxytocin 10 Unit/Ml Vial IM 03/25/25 00:01 ONCE PRN bleeding Senna 17.2 mg 03/23/25 20:00 Sennosides 8.6 Mg Tablet PO QHS PRN Constipation Simethicone 80 mg 03/23/25 13:27 Simethicone 80 Mg Tab.Chew PO QID PRN Abdominal Distention Temazepam 15 mg 03/23/25 13:27 Temazepam 15 Mg Capsule PO QHS PRN Sleep Witch Alysia/Glycerin 1 pad 03/23/25 13:27 03/23/25 15:37 Glycerin/Witch Alysia Pads TOPICAL 1 pad Q2H PRN Administration Pain Diet Category Date Time Status Regular Consistency Diet Diet 03/23/25 13:27 Active Respiratory Oxygen Delivery Method Room Air Oxygen Delivery Method Room Air Oxygen Delivery Method Room Air Cardiology Heart Sounds Strong,Regular Heart Sounds Strong,Regular Heart Sounds Strong,Regular Bowels Bowel Pattern No Bowel Movement Renal Bladder Pattern Continent Bladder Pattern Continent Bladder Pattern Continent
[2025-03-24 08:35] VITALS: TEMP 36.3
[2025-03-24] MEDS: RHO(D) IMMUNE GLOBULIN 1,500 UNIT SYRINGE 1500 UNIT IV (08:42)
[2025-03-24 08:48] VITALS: BP 114/74; PULSE 60
[2025-03-24 17:30] VITALS: TEMP 36.6
[2025-03-24 17:34] VITALS: BP 121/59; PULSE 65
[2025-03-24] MEDS: ACETAMINOPHEN 325 MG TABLET 650 MG PO (17:44)
--- NOTE | 2025-03-24 20:58 | W.PC.ACHO ---
Registration Status: ADM IN Primary Language: Preferred Language: Telugu Report given to Laura SINCLAIR at 1900. Care relinquished. Active Medications Generic Name Dose Route Start Last Admin Trade Name Magaly PRN Reason Stop Dose Admin Acetaminophen 650 mg 03/23/25 13:27 03/24/25 17:44 Acetaminophen 325 Mg Tablet PO 650 mg Q6H PRN Administration Mild Pain Al Hydroxide/Mg Hydroxide 2,400 mg 03/23/25 13:27 Magnesium Hydroxide 2,400 Mg/10 Ml Oral.Susp PO Q6H PRN Dyspepsia Benzocaine/Menthol 1 applic 03/23/25 13:27 03/23/25 15:37 Benzocaine/Menthol 85 Gram [place] Bottle TOPICAL 1 applic Q2H PRN Administration Pain Carboprost Tromethamine 250 mcg 03/23/25 00:01 Carboprost Tromethamine 250 Mcg/Ml 1 Ml Vial IM 03/25/25 00:01 Q15M PRN Bleeding Diphtheria/Pertussis/Tetanus Vacc 0.5 ml 03/25/25 09:00 Adacel Diph,Pertuss(Acell),Tet Vac/Pf 0.5 Ml Adult Syringe IM 03/25/25 09:01 .ONCE ONE Docusate Sodium 100 mg 03/24/25 09:00 03/24/25 09:30 Docusate Sodium 100 Mg Capsule PO Not Given BID CANDIDA Tranexamic Acid 1,000 mg/ 110 mls @ 440 mls/hr 03/23/25 00:01 Sodium Chloride IV 03/25/25 00:01 ONCE PRN Uterine Bleeding Ibuprofen 600 mg 03/23/25 13:27 03/24/25 14:04 Ibuprofen 600 Mg Tablet PO 600 mg Q6H PRN Administration Moderate Pain Lidocaine 5 ml 03/23/25 00:01 Lidocaine Viscous 2% 15 Ml Solution TOPICAL 03/25/25 00:04 ONCE PRN Pain Methylergonovine Maleate 0.2 mg 03/23/25 00:01 Methylergonovine Maleate 0.2 Mg/Ml Ampule IM 03/25/25 00:01 ONCE PRN Uterine Contractility/Contract Methylergonovine Maleate 0.2 mg 03/23/25 00:01 Methylergonovine Maleate 0.2 Mg Tablet PO 03/25/25 00:01 Q4H PRN Uterine Contractility/Contract Misoprostol 600 mcg 03/23/25 00:01 Misoprostol 100 Mcg Tablet PO 03/25/25 00:01 ONCE PRN Uterine Bleeding Misoprostol 800 mcg 03/23/25 00:01 Misoprostol 100 Mcg Tablet SL 03/25/25 00:01 ONCE PRN Uterine Bleeding Misoprostol 1,000 mcg 03/23/25 00:01 Misoprostol 100 Mcg Tablet MS 03/25/25 00:01 ONCE PRN Uterine Bleeding Ondansetron HCl 4 mg 03/23/25 00:01 Ondansetron Pf 4 Mg/2 Ml Vial IV Q6H PRN Nausea And Vomiting Ondansetron HCl 4 mg 03/23/25 00:01 Ondansetron 4 Mg Rapdis Tablet SL Q6H PRN Nausea And Vomiting Oxytocin 10 unit 03/23/25 00:01 Oxytocin 10 Unit/Ml Vial IM 03/25/25 00:01 ONCE PRN bleeding Senna 17.2 mg 03/23/25 20:00 Sennosides 8.6 Mg Tablet PO QHS PRN Constipation Simethicone 80 mg 03/23/25 13:27 Simethicone 80 Mg Tab.Chew PO QID PRN Abdominal Distention Temazepam 15 mg 03/23/25 13:27 Temazepam 15 Mg Capsule PO QHS PRN Sleep Witch Alysia/Glycerin 1 pad 03/23/25 13:27 03/23/25 15:37 Glycerin/Witch Alysia Pads TOPICAL 1 pad Q2H PRN Administration Pain Respiratory Oxygen Delivery Method Room Air Oxygen Delivery Method Room Air Oxygen Delivery Method Room Air Oxygen Delivery Method Room Air Cardiology Heart Sounds Strong,Regular Bowels Bowel Pattern No Bowel Movement Renal Bladder Pattern Continent Bladder Pattern Continent Bladder Pattern Continent
[2025-03-25 00:51] VITALS: BP 119/76; PULSE 55; TEMP 35.9
[2025-03-25] MEDS: IBUPROFEN 600 MG TABLET PO (05:57)
[2025-03-25] MEDS: DOCUSATE SODIUM 100 MG CAPSULE PO (09:14)
[2025-03-25] MEDS: ACETAMINOPHEN 325 MG TABLET 650 MG PO (09:16)
[2025-03-25 09:24] VITALS: BP 130/82; PULSE 63; TEMP 35.6
[2025-03-25 09:28] VITALS: TEMP 36.4
--- NOTE | 2025-03-25 09:41 | PM.OBPN ---
OB - PN: Subj Subjective Patient comments: no complaints and pain well controlled [place] status: doing well Exam Constitutional Vital Signs, click to edit/add: Last Vital Signs Temp 97.6 F 03/25/25 09:28 Pulse 63 03/25/25 09:24 Resp 16 03/25/25 09:28 BP 130/82 03/25/25 09:24 O2 Del Method Room Air 03/25/25 09:30 Documenting provider has reviewed patient's vital signs: yes Common normals: no apparent distress Respiratory Common normals: normal respiratory effort and clear to auscultation bilaterally Cardio Common normals: regular rate and regular rhythm GI Common normals: Normal to inspection, nondistended, normoactive bowel sounds present Extremity Common normals: no clubbing, cyanosis or edema and no calf tenderness OB - PN: A/P Plan - Vaginal Delivery day: 2 Plan: routine care, discharge home and follow up 6 weeks Time Spent with Patient Time: Total time spent is greater than 50% in coordination of care (as documented) at patient's floor/unit and/or counseling patient: Total time spent with greater than 50% in coordination of care (as documented) at patient's floor/unit and/or counseling patient: less than 15 minutes
--- NOTE | 2025-03-28 11:51 | PM.OBPRCVD ---
Procedure events: Labor Induction Intrapartal events: None and Precipitous Labor < 3 hours Induction method: per pitocin protocol Delivery augmentation: rupture of membranes and pitocin Delivery monitor: external FHT and external uterine Route of delivery: Episiotomy Description: none L&D Laceration Description: none Estimated blood loss (mL): 200 Anesthesia type: Epidural Disposition: floor Delivery date: 03/23/25 Gender: male presentation: vertex Placental delivery description: Spontaneous and Expressed cord description: 3 Vessels, Nuchal Cord, Loose and Reduced Stage 1 Duration Labor - Stage 1 Duration: 1 hours and 46 minutes Labor State Duration Total Length of Latency: 1 hours and 54 minutes
== END 2025-03-25 13:27 | disposition home or self-care (01) | DRG 560 ==
PROVIDERS: Admitting Provider Obstetrics & Gynecology; Visit Provider Obstetrics & Gynecology
DX: O36.63X0 Maternal care for excessive fetal growth, third trimester, not applicable or unspecified (principal); O62.3 Precipitate labor; O69.81X0 Labor and delivery complicated by cord around neck, without compression, not applicable or unspecified; Z3A.37 37 weeks gestation of pregnancy; O26.893 Other specified pregnancy related conditions, third trimester; Z67.91 Unspecified blood type, Rh negative; Z37.0 Single live birth; Z23 Encounter for immunization; Z88.5 Allergy status to narcotic agent; Z88.6 Allergy status to analgesic agent; Z79.899 Other long term (current) drug therapy
CPT/HCPCS: 36415; 59050; 59410; 76818; 80307; 85025; 85027; 85461; 86850; 86900; 86901; J0290; J2791; J2795

== ENCOUNTER 2025-04-11 10:25 | Outpatient (OUT) | payer OTHER, SELFPAY ==
--- OUTSIDE RECORDS SUMMARY | 2025-04-11 10:31 | XMS_ITS | CCD ---
Author Organization [facility] Care Team Providers Care Tile Classifier Name Role Phone Unavailable Primary Care Provider UnavailCharli Browne Primary Care Physician [phone] Keyon Davis MD Primary Care Provider ANTHONY Carl Attending UnavailKeyon Lockett Attending Unavailable Evan Moyer Attending Unavailable LISHA, DR DRUMMOND LISTED Consulting Unavaila ble [facility] [place]ICO[place] Primary Care Unavailable ENRIQUETA ., DR BENDER Attending Unavailable ENRIQUETA ., DR BENDER Admitting Unavailable Clingman HUMA, Óscar Moreno Primary Care Provider [phone] Tyshawn FINN, Óscar Moreno Primary Care Provider [...] ÓSCAR A Primary Care Unavailable OJHN PARTIDA Attending Unavailable JOHN PARTIDA Referring Unavailable CLINGMAN, ÓSCAR A Primary Care Unavailable OLEJOHN CAIN Attending Unavailable JOHN PARTIDA Referring Unavailable CLINGMAN, ÓSCAR A Primary Care Unavailable OJHN PARTIDA Attending Unavailable JOHN PARTIDA Referring Unavailable [...] Primary Care Unavailable GARY ROBISON Attending Unavailable ENRIQUETAGARY Attending Unavailable GENEVIEVE CALDERON Attending Unavailable ENRIQUETAGARY Santos Attending Unavailable ENRIQUETAGARY Referring Unavailable ENRIQUETAGARY Attending Unavailable ENRIQUETA, GARY Attending Unavailable GENEVIEVE CALDERON Attending Unavailable ENRIQUETAGARY Santos Attending Unavailable Allergies Allergy Classification Reported Allergen(s) Allergy Type Date of Onset Reaction(s) Facility (20 sources) Acetaminophen / HYDROcodone Drug Allergy 7 Rash, Unknown [facility] (20 sources) Acetaminophen / oxyCODONE Drug Allergy 5 Rash, Unknown [facility] (20 sources) Codeine; Translations: [codeine] Drug Allergy 7 Rash, Cutaneous eruption (morphologic abnormality), Unknown [facility] (3 sources) Acetaminophen / HYDROcodone; Translations: [acetaminophen-hy drocodone] Drug Allergy Hives [facility] (3 sources) Acetaminophen / oxyCODONE; Translations: [acetaminophen-ox ycodone] Drug Allergy Cutaneous eruption (morphologic abnormality) [facility] (1 source) Acetaminophen / HYDROcodone Drug Allergy [facility] (1 source) Acetaminophen / oxyCODONE Drug Allergy [facility] (1 source) Codeine Drug Allergy [facility] (20 sources) HYDROcodone Drug Allergy 3 [facility] (20 sources) orange allergenic extract Drug Allergy 5 [facility] Medications Current Medications Medication Drug [...] extended release oral tablet (6 sources) Uncompetitive N-rskqtc-G-aspartate Receptor Antagonist, Sigma-1 Agonist Start: 09-14-2021 take 1 tablet by mouth every twelve hours as needed for cough Dextromethorphan-g uaiFENesin 60-1200 MG TB12 Take 1 tablet by mouth every 12 hours as needed (COUGH CONGESTION) 28 tablet 0 09/14/2021 Active dextromethorphan hydrobromide 3 mg/ml / promethazine hydrochloride 1.25 mg/ml oral solution (6 sources) Phenothiazine, Uncompetitive X-cssgmd-T-aspartate Receptor Antagonist, Sigma-1 Agonist Start: 05-31-2018 promethazine-dextr omethorphan (PROMETHAZINE-DM) 6.25-15 MG/5ML syrup Take 5 mLs by mouth 4 times daily as needed for Cough 120 mL 0 05/31/2018 Active dicyclomine hydrochloride 20 mg oral tablet (7 sources) Anticholinergic Start: 07-20-2015 End: 12-18-2022 dicyclomine (BENTYL) 20 MG tablet docusate sodium 250 mg oral capsule (6 sources) take 1 capsule by mouth once daily docusate sodium (Colace) 250 MG capsule Take 250 mg by mouth Daily Active ibuprofen 800 mg oral tablet (1 source) Nonsteroidal Anti-inflammatory Drug Start: 06-01-2022 End: 06-21-2022 take 1 tablet by mouth three times daily at mealtime, then take 4 tablets by mouth once daily ibuprofen 800 mg Tab 800 mg = 1 tab(s), Oral, TID, Take with food. Not to exceed 3200 mg/day, X 10 day(s), # 30 tab(s), Refills(s) 1, Pharmacy: [facility], 170, cm, 06/01/22 12:55:00 EDT, Height/Length [...] Active ondansetron 4 mg disintegrating oral tablet (15 sources) Serotonin-3 Receptor Antagonist Start: 08-07-2024 End: [...] pantoprazole 40 mg delayed release oral tablet (19 sources) Proton Pump Inhibitor Start: 01-16-2025 End: [...] TID, # 15 tab(s), Refills(s) 0, Pharmacy: [facility], 170, cm, 09/03/22 14:31:00 EDT, Height/Length Dosing, 92, kg, 09/03/22 14:31:00 EDT, Weight Dosing Start Date: 09/03/22 Status: Ordered Completed/Discontinued Medications Medication Drug Class(es) Dates Sig (Normalized) Sig (Original) promethazine hydrochloride 12.5 mg oral tablet (20 sources) Phenothiazine Start: 02-10-2024 End: 12-19-2024 take [...] third trimester] 01-16-2025 Episodic Other complications of (6 sources) Excessive growth affecting management of mother; [...] [34 weeks gestation of ] 02-28-2025 Episodic Residual codes; unclassified (2 sources) Gestation period, 37 weeks; Translations: [37 weeks gestation of ] 03-19-2025 Episodic Spondylosis; intervertebral disc disorders; other back [...] WITH AUTO DIFFon BASOPHILS ABSOLUTE AUTO 0 [facility] Basophils/100 WBC (Bld) 0.3 % 0.2 - 2.0 % [facility] Eosinophils/100 WBC (Bld) 1.4 % 0.9 - 7.0 % [facility] Erythrocyte distribution width (RBC) [Ratio] 13.9 % 11.0 - 15.0 % [facility] Hematocrit (Bld) [Volume fraction] 28.6 % Low 36.0 - 48.0 % [facility] Hem[facility] (Bld) [Mass/Vol] 9.4 g/dL Low 12.0 - 16.0 g/dL [facility] IMMATURE GRANULOCYTES ABS AUTO 0.03 [facility] Immature granulocytes/100 WBC (Bld) 0.4 % 0.0 - 0.5 % [facility] Interpretation and review of laboratory results Abnormal [facility] LYMPHOCYTES ABSOLUTE AUTO 2.1 [facility] Lymphocytes/100 WBC (Bld) 28.5 % 20.5 - 60.0 % [facility] MCH (RBC) [Entitic mass] 26.2 pg Low 26.7 - 34.0 pg [facility] MCHC (RBC) [Mass/Vol] 32.9 g/dL 29.9 - 35.2 g/dL [facility] MCV (RBC) [Entitic vol] 79.7 fL Low 81.0 - 99.0 fL [facility] MONOCYTES ABSOLUTE AUTO 0.5 [facility] Monocytes/100 WBC (Bld) 7.5 % 1.7 - 12.0 % [facility] NEUTROPHILS ABSOLUTE AUTO 4.5 [facility] Neutrophils/100 WBC (Bld) 61.9 % 43.0 - 75.0 % [facility] Platelet mean volume (Bld) [Entitic vol] 12.7 fL 9.5 - 13.5 fL [facility] TBH EO # 0.1 [facility] TB PLT 122 Low [facility] TB RBC 3.59 Low [facility] TB WBC 7.2 [facility] HP CBC WITH PLATELET NO DI FFERENTIALon 03-23-2025 Erythrocyte distribution width (RBC) [Ratio] 13.8 % 11.0 - 15.0 % [facility] Hematocrit (Bld) [Volume fraction] 30.1 % Low 36.0 - 48.0 % [facility] Hemoglobin (Bld) [Mass/Vol] 9.9 g/dL Low 12.0 - 16.0 g/dL [facility] Interpretation and review of laboratory results Abnormal [facility] MCH (RBC) [Entitic mass] 25.7 pg Low 26.7 - 34.0 pg [facility] MCHC (RBC) [Mass/Vol] 32.9 g/dL 29.9 - 35.2 g/dL [facility] MCV (RBC) [Entitic vol] 78.2 fL Low 81.0 - 99.0 fL [facility] Platelet mean volume (Bld) [Entitic vol] 12.8 fL 9.5 - 13.5 fL [facility] TBH PLT 147 Low [facility] TB[facility] RBC 3.85 Low [facility] TBH WBC 6.4 [facility] US OB BPP W NON-STRESS on 03-20-[address] [address] Ultrasound Report Signed Patient: MEENA LUCERO MR#: [id number] : 1995 Acct:[id number] Age/Sex: 29 / F ADM Date: 03/20/25 Loc: US Attending Dr: Genevieve Calderon Ordering Physician: Genevieve Calderon Date of Service: 03/20/25 Procedure(s): US OB BPP w non-stress Accession Number(s): [id number] cc: Genevieve Calderon; Physician,Non-Staff M.DRosa The [place] [id number] Patient Name: MEENA LUCERO MRN: [facility]:[id number] date: 1995 Sex: F Assigned Patient Location: [facility] Current Patient Location: Accession/Order Number: [id number] Exam Date: 03/20/2025 09:36 Report Date: 03/20/2025 09:38 At the request of: GENEVIEVE CALDERON Procedure: US OB BPP w non-stress BIOPHYSICAL PROFILE: CLINICAL INFORMATION: Circumvallate placenta during COMPARISON: 03/13/2025 There is a single live intrauterine gestation in cephalic presentation. The reported gestational age is 37 weeks 2 days. The heart rate beats per minute. FINDINGS: TONE: 1 or [...] greater than 2 cm [Y] 2/2 MAXIMILIANO: 16.4 cm . This is in upper normal range. Total score: 8/8 US/US OB BPP w non-stress IMPRESSION: NORMAL BIOPHYSICAL PROFILE. Impression dictated by: Marlene Orellana M.D. 03/20/2025 9:38 AM Dictation Location: [place] [address] Electronically authenticated by: [id number] Y Date: 03/20/2025 09:38 Dictated By: Marlene Orellana M.D. Signed By: 03/20/2541 DD/ 7 TD/TT: Bench Worker Apprentice: [facility] Radiology, Radiologist, MD - 03/20/2025 [place] [address] Ultrasound Report Signed Patient: MEENA LUCERO MR#: [id number] : 1995 Acct:[id number] Age/Sex: 29 / F ADM Date: 03/20/25 Loc: US Attending Dr: Genevieve Calderon Ordering Physician: Genevieve Calderon Date of Service: 03/20/25 Procedure(s): US OB BPP w non-stress Accession Number(s): [id number] cc: Genevieve Calderon; Physician,Non-Staff Del The [place] [id number] Patient Name: MEENA LUCERO MRN: [facility]:[id number] date: 1995 Sex: F Assigned Patient Location: [facility] Current Patient Location: Accession/Order Number: [id number] Exam Date: 03/20/2025 09:36 Report Date: 03/20/2025 09:38 At the request of: GENEVIEVE CALDERON Procedure: US OB BPP w non-stress BIOPHYSICAL PROFILE: CLINICAL INFORMATION: Circumvallate placenta during COMPARISON: 03/13/2025 There is a single live intrauterine gestation in cephalic presentation. The reported gestational age is 37 weeks 2 days. The heart rate beats per minute. FINDINGS: TONE: 1 or [...] greater than 2 cm [Y] 2/2 MAXIMILIANO: 16.4 cm . This is in upper normal range. Total score: 8/ US/US OB BPP w non-stress IMPRESSION: NORMAL BIOPHYSICAL PROFILE. Impression dictated by: Marlene Orellana M.D. 03/20/2025 9:38 AM Dictation Location: [employer] Electronically authenticated by: [id number] Y Date: 03/20/2025 09:38 Dictated By: Marlene Orellana M.D. Signed By: 03/20/25940 DD/ 7 TD/TT: Bench Worker Apprentice: [facility] [employer] Radiology Study observation (narrative) [facility] US OB BPP W NON-STRESS Ordered By: Radiologist Radiology on 03-20-2025 [facility] [employer] Work Phone: US OB FOLLOW UP TRANSABDOMIN AL APPROACHon 03-19-2025 US OB FOLLOW UP TRANSABDOMINAL APPROACH EXAM: US OB FOLLOW UP TRANSABDOMINAL APPROACH HISTORY: Circumvallate placenta. A1. SHADY 04/08/2025. A1. TECHNIQUE: Two-dimensional transabdominal grayscale ultrasound imaging of the pelvis was performed. FINDINGS: Gestation: Single Presentation: Cephalic Cardiac Activity: 145 beats per minute Placental Location: Suboptimally visualized Distance from Placental Tip to Cervix: Not visualized Cervical Length: Obscured by overlying fetus Amniotic Fluid Index: 16.9 cm; MVP: 5.4 cm MEASUREMENTS: BPD: 8.9 cm EGA: 35 weeks 6 days HC: 34.2 cm EGA: 39 weeks 3 days AC: 35.5 cm EGA: 39 weeks 3 days FL: 7.7 cm EGA: 39 weeks 1 days HC/AC Ratio: 0.96 (0.88-1.06) Gestational age by today's ultrasound is 38 weeks 3 days (+/- nineteen days gestation). Estimated Weight: 3630 grams, +/- 545 grams ( 8 lb 0 oz). Weight Percentile for gestational age: 93rd IMPRESSION: 1. Single, live intrauterine gestation 37 weeks, 1 days by LMP. Today's ultrasound measurements correlate with a gestational age of 38 weeks 3 days. is in the 93rd weight percentile. Interpreted by: Electronically signed by BEST EATON II, MD, PHD at 20-Mar-2025 07:18:05 PM [facility] Normal Not Available Comment on above: Order Comment: US OB SCAN FOR GROWTH Estimated Date of Delivery: 04/08/25 Gestational Age as of 02/28/2025: 34w3d Urinalysis macro (dipstick) panel (U)on 03-19-2025 Bilirubin, UA Negative Negative - 4(70) +++ mg/dL [facility] Blood, UA Negative Negative - 50 Darnell/mcL [facility] Clarity, UA Clear [facility] Color, UA Yellow [facility] Glucose, UA Negative Negative - 1999(110) ++++ mg/dL [facility] Interpretation and review of laboratory results Abnormal [facility] Ketones, UA Negative Negative - 160(16) ++++ mg/dL [facility] Leukocytes, UA Negative Negative - 500+++ Shona/mcL [facility] Nitrite, UA Negative Negative - Positive [facility] pH, UA 5.5 5 - 9 [facility] Protein, UA Trace Negative - 1999(20) ++++ mg/dL [facility] Spec Grav, UA 1.02 1 - 1.03 [facility] care Urobilinogen, UA 1.0 0.2 - 12 mg/dL [facility] US OB BPP W NON-STRESS on 03-13-[address] [address] Ultrasound Report Signed Patient: MEENA LUCERO MR#: [id number] : 1995 Acct:[id number] Age/Sex: 29 / F ADM Date: 03/13/25 Loc: US Attending Dr: Genevieve Calderon Ordering Physician: Genevieve Calderon Date of Service: 03/13/25 Procedure(s): US OB BPP w non-stress Accession Number(s): [id number] cc: Genevieve Calderon; Physician,Non-Staff M.D. The [address] [address] Patient Name: MEENA LUCERO MRN: [facility]:[id number] date: 1995 Sex: F Assigned Patient Location: [facility] Current Patient Location: Accession/Order Number: [id number] Exam Date: 03/13/2025 09:26 Report Date: 03/13/2025 09:27 At the request of: GENEVIEVE CALDERON Procedure: US OB BPP w non-stress Ultrasound biophysical profile There is adequate breathing movement, gross body movement, tone and amniotic fluid volume for total score of 8 out of 8. The amniotic fluid index is 12.4 cm within normal limits. The heart rate is 139 bpm. US/US OB BPP w non-stress IMPRESSION: Adequate ultrasound biophysical profile. Impression dictated by: Jones Clemente M.D.03/13/2025 9:27 AM Dictation Location: [place] [address] Electronically authenticated by: [id number] Y Date: 03/13/2025 09:27 Dictated By: Jones Clemente D.O. Signed By: 03/13/25929 DD/ 6 TD/TT: Bench Worker Apprentice: [facility] Radiology, Radiologist, MD - 03/13/[address] [address] Ultrasound Report Signed Patient: MEENA LUCERO MR#: [id number] : 1995 Acct:[id number] Age/Sex: 29 / F ADM Date: 03/13/25 Loc: US Attending Dr: Genevieve Calderon Ordering Physician: Genevieve Calderon Date of Service: 03/13/25 Procedure(s): US OB BPP w non-stress Accession Number(s): [id number] cc: Genevieve Calderon; Physician,Non-Staff Del The [address] [address] Patient Name: MEENA LUCERO MRN: [facility]:[id number] date: 1995 Sex: F Assigned Patient Location: [facility] Current Patient Location: Accession/Order Number: [id number] Exam Date: 03/13/2025 09:26 Report Date: 03/13/2025 09:27 At the request of: GENEVIEVE CALDERON Procedure: US OB BPP w non-stress Ultrasound biophysical profile There is adequate breathing movement, gross body movement, tone and amniotic fluid volume for total score of 8 out of 8. The amniotic fluid index is 12.4 cm within normal limits. The heart rate is 139 bpm. US/US OB BPP w non-stress IMPRESSION: Adequate ultrasound biophysical profile. Impression dictated by: Jones Clemente M.D.03/13/2025 9:27 AM Dictation Location: [place] [address] Electronically authenticated by: [id number] Y Date: 03/13/2025 09:27 Dictated By: Jones Clemente D.O. Signed By: 03/13/25929 DD/ 6 TD/TT: Bench Worker Apprentice: [facility] Radiology Study observation (narrative) [facility] US OB BPP W NON-STRESS Ordered By: Radiologist Radiology on 03-13-2025 [facility] [employer] Work Phone: US OB BPP W NON-STRESS on 03-06-[address] [address] Ultrasound Report Signed Patient: MEENA LUCERO MR#: [id number] : 1995 Acct:[id number] Age/Sex: 29 / F ADM Date: 03/06/25 Loc: US Attending Dr: Genevieve Calderon Ordering Physician: Genevieve Calderon Date of Service: 03/06/25 Procedure(s): US OB BPP w non-stress Accession Number(s): [id number] cc: Genevieve Calderon; Physician,Non-Staff Del [address] [address] Patient Name: MEENA LUCERO MRN: [facility]:[id number] date: 1995 Sex: F Assigned Patient Location: [facility] Current Patient Location: Accession/Order Number: [id number] Exam Date: 03/06/2025 09:42 Report Date: 03/06/2025 [...] Marlene Orellana M.D.03/06/2025 9:44 AM Dictation Location: [place] [address] Electronically authenticated by: [id number] Y Date: 03/06/2025 09:44 Dictated By: Marlene Orellana M.D. Signed By: 03/06/2547 DD/ TD/TT: Bench Worker Apprentice: [facility] Radiology, Radiologist, MD - 03/06/2025 [place] [address] Ultrasound Report Signed Patient: MEENA LUCERO MR#: [id number] : 1995 Acct:[id number] Age/Sex: 29 / F ADM Date: 03/06/25 Loc: US Attending Dr: Genevieve Calderon Ordering Physician: Genevieve Calderon Date of Service: 03/06/25 Procedure(s): US OB BPP w non-stress Accession Number(s): [id number] cc: Genevieve Calderon; Physician,Non-Staff Del The [address] [address] Patient Name: MEENA LUCERO MRN: [facility]:[id number] date: 1995 Sex: F Assigned Patient Location: [facility] Current Patient Location: Accession/Order Number: [id number] Exam Date: 03/06/2025 09:42 Report Date: 03/06/2025 [...] Marlene Orellana M.D.03/06/2025 9:44 AM Dictation Location: [place] [address] Electronically authenticated by: [id number] Y Date: 03/06/2025 09:44 Dictated By: Marlene Orellana M.D. Signed By: 03/06/2547 DD/ TD/TT: Bench Worker Apprentice: [employer] Radiology Study observation (narrative) [facility] [employer] US OB BPP W NON-STRESS Ordered By: Radiologist Radiology on 03-06-2025 [facility] Work Phone: ALL PLATELET COUNTon 025 TBH PLT 158 [facility] [employer] [facility] [employer] US OB FOLLOW UP TRANSABDOMIN AL [...] II, MD, PHD at 02-Mar-2025 06:24:22 AM [facility] Normal Not Available Comment on above: Order Comment: US OB SCAN FOR GROWTH Estimated Date of Delivery: 04/08/25 Gestational Age as of 02/13/2025: 32w2d Urinalysis macro (dipstick) panel (U)on 02-28-2025 Bilirubin, UA Negative Negative - 4(70) +++ mg/dL [facility] Blood, UA Negative Negative - 50 Darnell/mcL [facility] Clarity, UA Clear [facility] Color, UA Yellow [facility] Glucose, UA Negative Negative - 2000(110) ++++ mg/dL [facility] Interpretation and review of laboratory results Abnormal [facility] Ketones, UA Negative Negative - 160(16) ++++ mg/dL [facility] Leukocytes, UA Positive Negative - 500+++ Shona/mcL [facility] Comment on above: small Nitrite, UA Negative Negative - Positive [facility] Healthcare pH, UA 6 5 - 9 [facility] Protein, UA Trace Negative - 1999(20) ++++ mg/dL [facility] Spec Grav, UA 1.025 1 - 1.03 [facility] Urobilinogen, UA 0.2 0.2 - 12 mg/dL [facility] US OB BPP W NON-STRESS on 02-27-2025 The [place] [id number] Ultrasound Report Signed Patient: MEENA LUCERO MR#: [id number] : 1995 Acct:[id number] Age/Sex: 29 / F ADM Date: 02/27/25 Loc: US Attending Dr: Genevieve Calderon Ordering Physician: Genevieve Calderon Date of Service: 02/27/25 Procedure(s): US OB BPP w non-stress Accession Number(s): [id number] cc: Genevieve Calderon; Physician,Non-Staff M.Martinez The [place] [id number] Patient Name: MEENA LUCERO MRN: [facility]:[id number] date: 1995 Sex: F Assigned Patient Location: [facility] Current Patient Location: Accession/Order Number: [id number] Exam Date: 02/27/2025 10:35 Report Date: 02/27/2025 [...] Jones Clemente M.D.02/27/2025 10:36 AM Dictation Location: [place] [address] Electronically authenticated by: [id number] Y Date: 02/27/2025 10:36 Dictated By: Jones Clemente D.O. Signed By: 02/27/25 1039 DD/ 103 TD/TT: Bench Worker Apprentice: [facility] Radiology, Radiologist, - 02/27/2025 The [place] [id number] Ultrasound Report Signed Patient: MEENA LUCERO MR#: [id number] : 1995 Acct:[id number] Age/Sex: 29 / F ADM Date: 02/27/25 Loc: US Attending Dr: Genevieve Calderon Ordering Physician: Genevieve Calderon Date of Service: 02/27/25 Procedure(s): US OB BPP w non-stress Accession Number(s): [id number] cc: Genevieve Calderon; Physician,Non-Staff M.DRosa The [place] [id number] Patient Name: MEENA LUCERO MRN: [facility]:[id number] date: 1995 Sex: F Assigned Patient Location: [facility] Current Patient Location: Accession/Order Number: [id number] Exam Date: 02/27/2025 10:35 Report Date: 02/27/2025 [...] Jones Clemente M.D.02/27/2025 10:36 AM Dictation Location: [place] [address] Electronically authenticated by: [id number] Y Date: 02/27/2025 10:36 Dictated By: Jones Clemente D.O. Signed By: 02/27/25 1039 DD/ 35 TD/TT: Bench Worker Apprentice: [facility] Radiology Study observation (narrative) [facility] US OB BPP W NON-STRESS Ordered By: Radiologist Radiology on 02-27-2025 [facility] Work Phone: US OB BPP W NON-STRESS on 02-20-[address] [address] Ultrasound Report Signed Patient: MEENA LUCERO MR#: [id number] : 1995 Acct:[id number] Age/Sex: 29 / F ADM Date: 02/20/25 Loc: US Attending Dr: Genevieve Calderon Ordering Physician: Genevieve Calderon Date of Service: 02/20/25 Procedure(s): US OB BPP w non-stress Accession Number(s): [id number] cc: Genevieve Calderon; Physician,Non-Staff M.Martinez The [address] [address] Patient Name: MEENA LUCERO MRN: [facility]:[id number] date: 1995 Sex: F Assigned Patient Location: [facility] Current Patient Location: Accession/Order Number: [id number] Exam Date: 02/20/2025 09:19 Report Date: 02/20/2025 09:20 At the request of: GENEVIEVE CALDERON Procedure: US OB BPP w non-stress BIOPHYSICAL PROFILE: CLINICAL INFORMATION: Circumvallate placenta COMPARISON: 02/13/2025 There is a single live intrauterine gestation in cephalic presentation. The reported gestational age is 33 weeks 2 days. The heart rate [id number] beats per minute. FINDINGS: TONE: 1 or [...] Marlene Orellana M.D.02/20/2025 9:20 AM Dictation Location: [place] [address] Electronically authenticated by: [id number] Y Date: 02/20/2025 09:20 Dictated By: Marlene Orellana M.D. Signed By: 02/20/25922 DD/ 9 TD/TT: Bench Worker Apprentice: [facility] Radiology, Radiologist, - 02/20/2025 [place] [address] Ultrasound Report Signed Patient: MEENA LUCERO MR#: [id number] : 1995 Acct:[id number] Age/Sex: 29 / F ADM Date: 02/20/25 Loc: US Attending Dr: Genevieve Calderon Ordering Physician: Genevieve Calderon Date of Service: 02/20/25 Procedure(s): US OB BPP w non-stress Accession Number(s): [id number] cc: Genevieve Calderon; Physician,Non-Staff Del The [place] [id number] Patient Name: MEENA LUCERO MRN: [facility]:[id number] date: 1995 Sex: F Assigned Patient Location: [facility] Current Patient Location: Accession/Order Number: [id number] Exam Date: 02/20/2025 09:19 Report Date: 02/20/2025 09:20 At the request of: GENEVIEVE CALDERON Procedure: US OB BPP w non-stress BIOPHYSICAL PROFILE: CLINICAL INFORMATION: Circumvallate placenta COMPARISON: 02/13/2025 There is a single live intrauterine gestation in cephalic presentation. The reported gestational age is 33 weeks 2 days. The heart rate [id number] beats per minute. FINDINGS: TONE: 1 or [...] Marlene Orellana M.D.02/20/2025 9:20 AM Dictation Location: [place] [address] Electronically authenticated by: [id number] Y Date: 02/20/2025 09:20 Dictated By: Marlene Orellana M.D. Signed By: 02/20/25922 DD/ 9 TD/TT: Bench Worker Apprentice: [facility] Radiology Study observation (narrative) [facility] US OB BPP W NON-STRESS Ordered By: Radiologist Radiology on 02-20-2025 [facility] Work Phone: Urinalysis macro (dipstick) panel (U)on 02-13-2025 Bilirubin, UA Negative Negative - 4(70) +++ mg/dL [facility] Blood, UA Negative Negative - 50 Darnell/mcL [facility] Clarity, UA Clear [facility] re Color, UA Yellow [facility] Glucose, UA Negative Negative - 1999(110) ++++ mg/dL [facility] Interpretation and review of laboratory results Abnormal [facility] re Ketones, UA Negative Negative - 160(16) ++++ mg/dL [facility] Leukocytes, UA Positive Negative - 500+++ Shona/mcL [facility] Comment on above: small Nitrite, UA Negative Negative - Positive [facility] pH, UA 6 5 - 9 [facility] Protein, UA Trace Negative - 1999(20) ++++ mg/dL [facility] Spec Grav, UA 1.025 1 - 1.03 [facility] care Urobilinogen, UA 0.2 0.2 - 12 mg/dL [facility] Healthcare [facility] ALL PLATELET COUNTon 025 TBH PLT 151 [facility] CLINIS[facility] US OB PLACENTAon 01-17-[address] [address] Ultrasound Report Signed Patient: MEENA LUCERO MR#: [id number] : 1995 Acct:[id number] Age/Sex: 29 / F ADM Date: 01/16/25 Loc: US Attending Dr: Gary Robison D.O. Ordering Physician: Gary Robison D.O. Date of Service: 01/16/25 Procedure(s): US OB placenta Accession Number(s): [id number] cc: Gary Robison D.O.; Physician,Non-Staff [place] [id number] Patient Name: MEENA LUCERO MRN: [id number] date: 1995 Sex: F Assigned Patient Location: Current Patient Location: [facility] Accession/Order Number: [id number] Exam Date: 01/16/2025 11:08 Report Date: 01/16/2025 [...] Marlene Orellana M.D.01/16/2025 11:19 AM Dictation Location: [employer] Electronically authenticated by: [id number] Y Date: 01/16/2025 11:19 Dictated By: Marlene Orellana M.D. Signed By: 01/17/25 1034 DD/ 1119 TD/TT: Bench Worker Apprentice: [facility] Radiology, Radiologist, - 01/17/2025 [place] [address] Ultrasound Report Signed Patient: MEENA LUCERO MR#: [id number] : 1995 Acct:[id number] Age/Sex: 29 / F ADM Date: 01/16/25 Loc: US Attending Dr: Gary Robison D.O. Ordering Physician: Gary Robison D.O. Date of Service: 01/16/25 Procedure(s): US OB placenta Accession Number(s): [id number] cc: Gary Robison D.O.; Physician,Non-Staff [place] [id number] Patient Name: MEENA LUCERO MRN: [facility]:[id number] date: 1995 Sex: F Assigned Patient Location: Current Patient Location: [facility] Accession/Order Number: [id number] Exam Date: 01/16/2025 11:08 Report Date: 01/16/2025 [...] Marlene Orellana M.D.01/16/2025 11:19 AM Dictation Location: [place] [address] Electronically authenticated by: [id number] Y Date: 01/16/2025 11:19 Dictated By: Malrene Orellana M.D. Signed By: 01/17/25 1034 DD/ 1119 TD/TT: Bench Worker Apprentice: [facility] OB PLACENTAOrdered By: Ra duncan Radiology on 01-17-2025 [facility] [employer] Work Phone: No Panel Informationon 01-16 Radiology Study observation (narrative) [facility] OB GROWTHon 01-16-2025 [place] [address] Ultrasound Report Signed Patient: MEENA LUCERO MR#: [id number] : 1995 Acct:[id number] Age/Sex: 29 / F ADM Date: 01/16/25 Loc: US Attending Dr: Gary Robison D.O. Ordering Physician: Gary Robison D.O. Date of Service: 01/16/25 Procedure(s): US OB growth Accession Number(s): [id number] cc: Gary Robison D.O.; Physician,Non-Staff Del The [address] [address] Patient Name: MEENA LUCERO MRN: [id number] date: 1995 Sex: F Assigned Patient Location: US Current Patient Location: US Accession/Order Number: [id number] Exam Date: 01/16/2025 11:08 Report Date: 01/16/2025 [...] Marlene Orellana M.D.01/16/2025 11:19 AM Dictation Location: [place] [address] Electronically authenticated by: [id number] Y Date: 01/16/2025 11:19 Dictated By: Marlene Orellana M.D. Signed By: 01/16/25 1122 DD/ 1119 TD/TT: Bench Worker Apprentice: [facility] Radiology, Radiologist, MD - 01/16/2025 [place] [address] Ultrasound Report Signed Patient: MEENA LUCERO MR#: [id number] : 1995 Acct:[id number] Age/Sex: 29 / F ADM Date: 01/16/25 Loc: US Attending Dr: Gary Enriqueta D.O. Ordering Physician: Gary Robison D.O. Date of Service: 01/16/25 Procedure(s): US OB growth Accession Number(s): [id number] cc: Gary Robison D.O.; Physician,Non-Staff Del [address] [address] Patient Name: MEENA LUCERO MRN: [facility]:[id number] date: 1995 Sex: F Assigned Patient Location: Current Patient Location: US Accession/Order Number: [id number] Exam Date: 01/16/2025 11:08 Report Date: 01/16/2025 [...] Marlene Orellana M.D.01/16/2025 11:19 AM Dictation Location: [place] [address] Electronically authenticated by: [id number] Y Date: 01/16/2025 11:19 Dictated By: Marlene Orellana M.D. Signed By: 01/16/25 1122 DD/ 1119 TD/TT: Bench Worker Apprentice: [facility] OB GROWTHOrdered By: Braxton ologrolo Radiology on 01-16-2025 [facility] Work Phone: Urinalysis macro (dipstick) panel (U)on 01-16-2025 Bilirubin, UA Negative Negative - 4(70) +++ mg/dL [facility] Blood, UA Negative Negative - 50 Darnell/mcL [facility] Clarity, UA Clear [facility] [employer] re Color, UA Yellow [facility] [employer] Glucose, UA Negative Negative - 1999(110) ++++ mg/dL [facility] Interpretation and review of laboratory results Abnormal [facility] [employer] re Ketones, UA Negative Negative - 160(16) ++++ mg/dL [facility] Leukocytes, UA Moderate Negative - 500+++ Shona/mcL [facility] Nitrite, UA Negative Negative - Positive [facility] pH, UA 7 5 - 9 [facility] Protein, UA Negative Negative - 1999(20) ++++ mg/dL [facility] Spec Grav, UA 1.015 1 - 1.03 [facility] Urobilinogen, UA 0.2 0.2 - 12 mg/dL [facility] Health[facility] e ALL PLATELET COUNTon 025 Interpretation and review of laboratory results Abnormal [facility] [employer] re TBH PLT 139 Low [facility] CLINISYNC [facility] Healthpayleven e ALL CBC WITH AUTO DIFFon BASOPHILS ABSOLUTE AUTO 0 [facility] Basophils/100 WBC (Bld) 0.2 % 0.2 - 2.0 % [facility] Eosinophils/100 WBC (Bld) 0.9 % 0.9 - 7.0 % [facility] Erythrocyte distribution width (RBC) [Ratio] 13.2 % 11.0 - 15.0 % [facility] Hematocrit (Bld) [Volume fraction] 34.6 % Low 36.0 - 48.0 % [facility] [employer] Hemoglobin (Bld) [Mass/Vol] 11.5 g/dL Low 12.0 - 16.0 g/dL [facility] IMMATURE GRANULOCYTES ABS AUTO 0.02 [facility] Immature granulocytes/100 WBC (Bld) 0.3 % 0.0 - 0.5 % [facility] Interpretation and review of laboratory results Abnormal [facility] Health[facility] re LYMPHOCYTES ABSOLUTE AUTO 1.3 [facility] Lymphocytes/100 WBC (Bld) 22 % 20.5 - 60.0 % [facility] MCH (RBC) [Entitic mass] 28.8 pg 26.7 - 34.0 pg [facility] MCHC (RBC) [Mass/Vol] 33.2 g/dL 29.9 - 35.2 g/dL [facility] MCV (RBC) [Entitic vol] 86.5 fL 81.0 - 99.0 fL [facility] MONOCYTES ABSOLUTE AUTO 0.4 [facility] Monocytes/100 WBC (Bld) 7.2 % 1.7 - 12.0 % [facility] NEUTROPHILS ABSOLUTE AUTO 4 [facility] Neutrophils/100 WBC (Bld) 69.4 % 43.0 - 75.0 % [facility] Platelet mean volume (Bld) [Entitic vol] 11.7 fL 9.5 - 13.5 fL [facility] TBH EO # 0.1 [facility] e TB PLT 117 Low [facility] e TB RBC 4 Low [facility] e TB WBC 5.7 [facility] CLINISYNC [facility] Urinalysis macro (dipstick) panel (U)on 12-19-2024 Bilirubin, UA Negative Negative - 4(70) +++ mg/dL [facility] Blood, UA Negative Negative - 50 Darnell/mcL [facility] Clarity, UA Clear [facility] re Color, UA Yellow [facility] e Glucose, UA Positive Negative - 1999(110) ++++ mg/dL [facility] Comment on above: 100 mg Interpretation and review of laboratory results Abnormal [facility] re Ketones, UA Negative Negative - 160(16) ++++ mg/dL [facility] Leukocytes, UA Positive Negative - 500+++ Shona/mcL [facility] Comment on above: small Nitrite, UA Negative Negative - Positive [facility] pH, UA 7 5 - 9 [facility] e Protein, UA Negative Negative - 1999(20) ++++ mg/dL [facility] Spec Grav, UA 1.02 1 - 1.03 [facility] Urobilinogen, UA 0.2 0.2 - 12 mg/dL [facility] Health[facility] Urinalysis macro (dipstick) panel (U)on 11-20-2024 Bilirubin, UA Negative Negative - 4(70) +++ mg/dL [facility] Blood, UA Negative Negative - 50 Darnell/mcL [facility] Clarity, UA Clear [facility] [employer] re Color, UA Yellow [facility] [facility] Glucose, UA Negative Negative - 1999(110) ++++ mg/dL [facility] Interpretation and review of laboratory results Abnormal [facility] re Ketones, UA Negative Negative - 160(16) ++++ mg/dL [facility] Leukocytes, UA Positive Negative - 500+++ Shona/mcL [facility] Comment on above: small Nitrite, UA Negative Negative - Positive [facility] pH, UA 7.5 5 - 9 [facility] Protein, UA Negative Negative - 1999(20) ++++ mg/dL [facility] Spec Grav, UA 1.015 1 - 1.03 [facility] Urobilinogen, UA 0.2 0.2 - 12 mg/dL [facility] e IGP,APTIMA HPV,AGE GDLNon AGE GDLN ACOG TESTING Note . [facility] Comment on above: TESTS RESULT FLAG UN ITS REF RANGE LAB Clinician Provided Cytology Information Source.............Cervix No. of containers..01 ThinPrep Vial Age Algo ACOG Subha... FLAG LEGEND: L-Low Normal,H-High Normal,LL-Alert Low,HH-Alert High <-Panic Low,>-Panic High,A-Abnormal,AA-Critical Abnormal Performed at: 01 [facility] [address] [place] [address] Yulisa Yudy Mustafa MD, IGP, RFX APTIMA HPV ASCU Note . [facility] Comment on above: TESTS RESULT FLAG UN ITS REF RANGE LAB DIAGNOSIS: 02 NEGATIVE FOR INTRAEPITHELIAL LESION OR MALIGNANCY. FUNGAL ORGANISMS MORPHOLOGICALLY CONSISTENT WITH FELIPE SPECIES ARE PRESENT. Specimen adequacy: 02 Satisfactory for evaluation. Endocervical and/or squamous metaplastic cells (endocervical component) are present. Performed by: Estefany Boucher, Vest Front Presser ([facility]) . 02 Note: Note 03 The [...] <-Panic Low,>-Panic High,A-Abnormal,AA-Critical Abnormal Performed at: [address] [place] [address] [place] [address] Pily Shields PhD, [facility] Lab[address] [address] Yulisa Mustafa MD, Performed at: =[address] [id number] Wine Specialist: Yulisa Mustafa MD, Phone: [phone] Performed at: [facility] Lab[address], [place] [id number] Wine Specialist: Pily Shields PhD, Phone: [phone] SPATULA-ALONE CERVIX CLIN[facility] e RECURRENT VAGINITIS (HTRX)on 10-18-2024 ATOPOBIUM VAGINAE 0 [facility] ATOPOBIUM VAGINAE Not detected [facility] BVAB 2,3 (BACTERIAL VAGINOSIS ASSOCIATED BACTERIA 2, 3); MOBILUNCUS SPP 0 [facility] BVAB 2,3 (BACTERIAL VAGINOSIS ASSOCIATED BACTERIA 2, 3); MOBILUNCUS SPP Not detected [facility] FELIPE ALBICANS, PARAPSILOSIS, TROPICALIS 0 [facility] FELIPE ALBICANS, PARAPSILOSIS, TROPICALIS Not detected [facility]IPE [facility]ABRATA [address] [facility]IPE GLABRATA Not detected [facility]USEI [facility] KRUSEI Not detected [facility] CHLAMYDIA TRACHOMATIS 0 [facility] CHLAMYDIA TRACHOMATIS Not detected [facility] GARDNERELLA VAGINALIS 0 [facility] GARDNERELLA VAGINALIS Not detected [facility] MEGASPHAERA (TYPES 1, 2) 0 [facility] MEGASPHAERA (TYPES 1, 2) Not detected [facility] MYCOPLASMA GENITALIUM 0 [facility] MYCOPLASMA GENITALIUM Not detected [facility] NEISSERIA GONORRHOEAE 0 [facility] NEISSERIA GONORRHOEAE Not detected [facility] TRICHOMONAS VAGINALIS 0 [facility] TRICHOMONAS VAGINALIS Not detected [facility] Urinalysis macro (dipstick) panel (U)on 10-17-2024 Bilirubin, UA Negative Negative - 4(70) +++ mg/dL [facility] Comment on above: n Blood, UA Negative Negative - 50 Darnell/mcL [facility] Clarity, UA Clear [facility] Health[facility] re Color, UA Yellow [facility] Glucose, UA Negative Negative - 1999(110) ++++ mg/dL [facility] Interpretation and review of laboratory results Normal [facility] re Ketones, UA Negative Negative - 160(16) ++++ mg/dL [facility] Leukocytes, UA Negative Negative - 500+++ Shona/mcL [facility] Nitrite, UA Negative Negative - Positive [facility] pH, UA 6 5 - 9 [facility] Protein, UA Negative Negative - 1999(20) ++++ mg/dL [facility] Spec Grav, UA 1.03 1 - 1.03 [facility] Urobilinogen, UA 0.2 0.2 - 12 mg/dL [facility] Urinalysis macro (dipstick) panel (U)on 09-18-2024 Bilirubin, UA Negative Negative - 4(70) +++ mg/dL [facility] Blood, UA Negative Negative - 50 Darnell/mcL [facility] Clarity, UA Clear [facility] Color, UA Yellow [facility] Glucose, UA Negative Negative - 1999(110) ++++ mg/dL [facility] Interpretation and review of laboratory results Normal [facility] Ketones, UA Negative Negative - 160(16) ++++ mg/dL [facility] Leukocytes, UA Negative Negative - 500+++ Shona/mcL [facility] Nitrite, UA Negative Negative - Positive [facility] pH, UA 6.5 5 - 9 [facility] Healthpay[facility] e Protein, UA Negative Negative - 1999(20) ++++ mg/dL [facility] Spec Grav, UA 1.015 1 - 1.03 [facility] Urobilinogen, UA 0.2 0.2 - 12 mg/dL [facility] Health[facility] BOX TESTon 09-11-2024 BOX TEST SENT OUT [facility] BOX1 UNITY [facility] Nearbox e BOX2 11/11/24 [facility] Near[facility] UNITY BOX [facility] Near[facility] e HCG ( test) Ql (U)o n 08-18-2024 Interpretation and review of laboratory results Abnormal [facility] Health[facility] re Preg Test, Ur Positive [facility] Urinalysis macro (dipstick) panel (U)on 08-18-2024 Bilirubin, UA Negative Negative - 4(70) +++ mg/dL [facility] Blood, UA Negative Negative - 50 Darnell/mcL [facility] Clarity, UA Clear [facility] Health[facility] re Color, UA Yellow [facility] Health[facility] e Glucose, UA Negative Negative - 1999(110) ++++ mg/dL [facility] Interpretation and review of laboratory results Abnormal [facility] Health[facility] re Ketones, UA Negative Negative - 160(16) ++++ mg/dL [facility] Leukocytes, UA Negative Negative - 500+++ Shona/mcL [facility] Nitrite, UA Positive Negative - Positive [facility] Comment on above: small pH, UA 7.0 5 - 9 [facility] Protein, UA Negative Negative - 1999(20) ++++ mg/dL [facility] Spec Grav, UA 1.015 1 - 1.03 [facility] Urobilinogen, UA 0.2 0.2 - 12 mg/dL [facility] Health[facility] e ALL HCG, QUANTITATIVEon 07-23 Interpretation and review of laboratory results Abnormal [facility] Healthin re MHPT HCG, QUANT 30349.0 High [facility] Heal thcare Comment on above: Non-preg premeno <=5 Postmeno <=8 Male <=3 If HCG results do not concur with clinical observations, additional testing to confirm results is recommended. Original Ordering Provider: G[facility] WAL[facility]SISYBARN[facility] HCG, Quanton 08-07-2024 HCG, Quant 22323.0 mIU/mL High <5 [facility] Comment on above: Result Comment: Non-preg premeno <=5 Postmeno <=8 Male <=3 If HCG results do not concur with clinical observations, additional testing to confirm results is recommended. Performed By: #### B HCG #### [facility] Lab [address] [place] [address] Wine Specialist: Armen Madrigal MD HCG, Quantitative, on 08-07-2024 [place] [address].0 m[IU]/mL High [facility] Comment on above: Non-preg premeno <=5 Postmeno <=8 Male <=3 If HCG results do not concur with clinical observations, additional testing to confirm results is recommended. Interpretation and review of laboratory results Abnormal [facility] ALL HCG, QUANTITATIVEon 07-23 Interpretation and review of laboratory results Abnormal [facility] MHPT HCG, QUANT 1366.0 High NINF [facility] Comment on above: Non-preg premeno <=5 Postmeno <=8 Male <=3 If HCG results do not concur with clinical observations, additional testing to confirm results is recommended. Original Ordering Provider: GARY AGUILAR DO ENRIQUETA CLINISYIA [facility] HCG, Quanton 08-02-2024 HCG, Quant 1366.0 mIU/mL High <5 [facility] Comment on above: Result Comment: Non-preg premeno <=5 Postmeno <=8 Male <=3 If HCG results do not concur with clinical observations, additional testing to confirm results is recommended. Performed By: #### B HCG #### [facility] [address] [place] [address] Wine Specialist: Armen Madrigal MD ALL HCG, QUANTITATIVEon Interpretation and review of laboratory results Abnormal [facility] MHPT HCG, QUANT 506.3 High NINF [facility] Comment on above: Non-preg premeno <=5 Postmeno <=8 Male <=3 If HCG results do not concur with clinical observations, additional testing to confirm results is recommended. Original Ordering Provider: [facility] Health[facility] HCG, Quanton 07-31-2024 HCG, Quant 506.3 mIU/mL High <5 [facility] Comment on above: Result Comment: Non-preg premeno <=5 Postmeno <=8 Male <=3 If HCG results do not concur with clinical observations, additional testing to confirm results is recommended. Performed By: #### B HCG #### [facility] [address] [place] [address] Wine Specialist: Armen Madrigal MD HCG, Quantitative, on 07-31-2024 HCG.beta subunit Qn 506.3 m[IU]/mL High NINF B ON [facility] Comment on above: Non-preg premeno <=5 Postmeno <=8 Male <=3 If HCG results do not concur with clinical observations, additional testing to confirm results is recommended. Interpretation and review of laboratory results Abnormal [facility] ALL HCG, QUANTITATIVEon Interpretation and review of laboratory results Abnormal [facility] MHPT HCG, QUANT 200.3 High NINF [facility] Comment on above: Non-preg premeno <=5 Postmeno <=8 Male <=3 If HCG results do not concur with clinical observations, additional testing to confirm results is recommended. Original Ordering Provider: GARY WALTERSCHRISTIANACARE [facility] HCG, Quanton 07-29-2024 HCG, Quant 200.3 mIU/mL High <5 [facility] Comment on above: Result Comment: Non-preg premeno <=5 Postmeno <=8 Male <=3 If HCG results do not concur with clinical observations, additional testing to confirm results is recommended. Performed By: #### B HCG #### [facility] [address] [place] [address] Wine Specialist: Armen Madrigal MD ALL HCG SERUM,QUALITATIVEon 07-27-2024 Interpretation and review of laboratory results Abnormal [facility] PT HCG SCREEN, BLOOD Positive Abnormal NEG [facility] Comment on above: If HCG results do not concur with clinical observations, additional testing to confirm result is recommended. This test is not labeled for use as a tumor marker. [facility] has confirmed the use of plasma for this test. This has not been cleared or approved by the U.S. Food and Drug Administration. The FDA has determined that such clearance is not necessary. Original Ordering Provider: GARY WALTERSISYRAMON [facility] HCG Screen, Bloodon 07-27-20 24 HCG Screen, Blood Positive Abnormal NEG [facility] Comment on above: Result Comment: If HCG results do not concur with clinical observations, additional testing to confirm result is recommended. This test is not labeled for use as a tumor marker. [facility] has confirmed the use of plasma for this test. This has not been cleared or approved by the U.S. Food and Drug Administration. The FDA has determined that such clearance is not necessary. Performed By: #### H CG #### [facility] [address] [place] [address] Wine Specialist: Armen Madrigal MD HCG, Quanton 07-27-2024 HCG, Quant 73.4 mIU/mL High <5 [facility] Comment on above: Result Comment: Non-preg premeno <=5 Postmeno <=8 Male <=3 If HCG results do not concur with clinical observations, additional testing to confirm results is recommended. Performed By: #### B HCG #### [facility] [address] [place] [address] Wine Specialist: Armen Madrigal MD HCG, Quanton 06-08-2024 HCG, Quant <1.0 Normal <5 [facility] Comment on above: Result Comment: Non-preg premeno <=5 Postmeno <=8 Male <=3 If HCG results do not concur with clinical observations, additional testing to confirm results is recommended. Performed By: #### B HCG #### [facility] [address] [place] [address] Wine Specialist: Armen Madrigal MD XR SACRUM COCCYX (MIN 2 VIEW S)on 05-24-2024 XR SACRUM COCCYX (MIN 2 VIEWS) HISTORY: Sacral pain. TECHNIQUE: 3 views sacrum and coccyx. COMPARISON: None. FINDINGS: Sacroiliac joints are normal. No fracture or acute osseous abnormality is identified. IMPRESSION: No acute process. Interpreted by: Parker Coleman MD Signed by: Parker Coleman MD 05/24/24 Final result Normal [facility] HCG, Quanton 03-04-2024 HCG, Quant 3680.0 mIU/mL High <5 [facility] Comment on above: Result Comment: Non-preg premeno <=5 Postmeno <=8 Male <=3 If HCG results do not concur with clinical observations, additional testing to confirm results is recommended. Performed By: #### B HCG #### [facility] [address] [place] [address] Wine Specialist: Armen Madrigal MD Cytology Cervical or vaginal smear or scraping studyon 05-26-2023 [facility] l[facility] RAD - MISCon 02-01-2023 RAD - MISC [id number] #1.00CD:127 Normal [facility] XR ANKLE RIGHT (MIN 3 VIEWS) on 01-29-2023 FINDINGS/IMPRESSION: 1. Compression fracture tip of the fibula no longer separately seen. 2. Anatomic alignment throughout. 3. Soft tissue swelling has resolved. [facility] EXAM: XR ANKLE RIGHT (MIN 3 VIEWS). HISTORY: Other closed fracture of proximal end of right fibula with routine healing, subsequent encounter. COMPARISON: 01/10/2023. [facility] Mauro Anton Jr., MD - 01/29/2023 EXAM: XR ANKLE RIGHT (MIN 3 VIEWS). HISTORY: Other closed fracture of proximal end of right fibula with routine healing, subsequent encounter. COMPARISON: 01/10/2023. IMPRESSION: FINDINGS/IMPRESSION: 1. Compression fracture tip of the fibula no longer separately seen. 2. Anatomic alignment throughout. 3. Soft tissue swelling has resolved. [employer] Phone: Radiology Study observation (narrative) [employer] Phone: XR ANKLE RIGHT (MIN 3 VIEWS) Ordered By: Mauro Anton on 01-29-2023 [employer] Phone: RAD - MISCon 01-11-2023 RAD - MISC [id number] #1.00CD:127 Normal [facility] XR ANKLE RIGHT (MIN 3 VIEWS) on 01-10-2023 FINDINGS/IMPRESSION: 1. Very small nondisplaced incomplete fracture is questioned in the distal tip of the right fibula, with mild surrounding soft tissue swelling. 2. No other fracture, malalignment, significant arthritis or acute bony abnormality is seen. [facility] CLINICAL HISTORY: Right ankle pain and swelling since an injury yesterday. RIGHT ANKLE 3 VIEWS: [facility] João Amezquita MD - 01/10/2023 CLINICAL HISTORY: Right ankle pain and swelling since an injury yesterday. RIGHT ANKLE 3 VIEWS: IMPRESSION: FINDINGS/IMPRESSION: 1. Very small nondisplaced incomplete fracture is questioned in the distal tip of the right fibula, with mild surrounding soft tissue swelling. 2. No other fracture, malalignment, significant arthritis or acute bony abnormality is seen. [employer] Phone: Radiology Study observation (narrative) [employer] Phone: XR ANKLE RIGHT (MIN 3 VIEWS) Ordered By: João Ameqzuita on 01-10-2023 [employer] Phone: Ambulatory Visit Summaryon 0 12-08-2022 Ambulatory Visit Summary MEENA LUCERO :1995 Visit Date:12/08/2022 Ambulatory Visit Instructions Your Diagnosis Gastroenteritis due to [place]-like virus Obesity due to excess calories BMI [...] to 60 minutes before meals Pickup at [facility] Unchanged multivitamin, ( Multivitamins with Vitamin B Complex, Vitamin C, Minerals and L-Methylfolate oral capsule) 1 Capsules By Mouth Every day Contact prescribing physician if questions or concerns Unchanged ondansetron (Zofran ODT 4 mg Tab-Dis) 1 Tablets By Mouth 3 times a day Contact prescribing physician if questions or concerns Pharmacy Information [facility]: [address], [place] [id number] [phone] Medications and Immunizations Administered Not Given influenza virus vaccine, inactivated, Postpone due to refusal SARS-CoV-2 mRNA (tozinameran 5y-11y) vac, Postpone due to refusal Allergies Percocet 5/325 (Hives, Rash) Vicodin (Hives) codeine (Hives, Rash) Problems Ongoing - Any problem that you are currently receiving treatment for. BMI 31.0-31.9,adult Gastroenteritis due to [place]-like virus Non-smoker Obesity due to excess calories [...] immune system (more content not included)... Normal [facility] ED Note-Physicianon 12-08-19 ED Note-Physician [id number] #1.00CD:127 Normal [facility] Family Medicine Office/Clini c Noteon 12-08-2022 [...] and COVID. 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 Gastroenteritis due to [place]-like virus (A08.8: Other specified intestinal infections) Viral [...] day(s), # 30 tab(s), Refills(s) 0, Pharmacy: [facility], 170, cm, 12/08/22 12:00:00 EST, Height/Length Dosing, 90.5, kg, 12/08/22 12:00:00 EST, Weight Dosing Follow-up With When Contact Information Keyon DAVIS MD, FAM Only if needed Additional Instructions: Patient Education Viral Gastroenteritis, Adult Problem List/Past Medical History Ongoing BMI 31.0-31.9,adult Gastroenteritis due to [place]-like virus Non-smoker Obesity due to excess calories [...] Alcohol Use, 05/26/2017 Employment/School 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 Normal [facility] Comment on above: Result Comment: [...] and water are not available, use hand inspector government property. ? Make sure that all people in your household wash their hands well and often. ? Take fvab-efk-vnotycc and prescription medicines only as told by [...] to person (more content not included)... Normal [facility] COVID-19, Rapidon 12-04-2022 SARS-CoV-2 (COVID-19) [...] management decisions. Fact sheet for Healthcare Providers: https://www.fda.gov/media/173906/download Fact sheet for Patients: https://www.fda.gov/media/452673/download Methodology: Isothermal Nucleic Acid Amplification Specimen Description .NASOPHARYNGEAL SWAB [facility] Rapid influenza A/B antigens on 12-04-2022 [...] Locations R1: This test was performed at: [facility], [address] [place] [address], [facility]- , , [facility] Comment on above: Performed By: #### 2 [id number], [id number], [id number] ####[facility] [address] [place] [address] Coding Summary.on 09-04-2022 Coding Summary. CD:[id number] Gh0bWw+PGhlYWQ+PE1FV WHcQ37fkIFhfJ7PT3dJG K2GGWTKYYCZLO9HQI1at MH9ZBcyY2MhhuLv WtbweWNiAV38WWh0VGL6 aUcgVFqdzK1syVHbK8d0 SvXlMG66dY18EOcdWFNs JqS9CuHqgzmkfNSx T6oxNaWlrOXuGht+PHRh YmxlIHdpZHRoPScxMDAl QaAlvKksFB4qNz5rVTHr LWNvbGxhcHNlOiBj o4gaPELvHFtbMG5klOce R2VctAT9SKZrp3c9Wg22 dHI+KTVeIUL1bMwxTOvt o819MsWib1ybXKL0 qSLnYGhjJXA3B15op3L5 UVXeHSBnEHW6iCB7uR4g pXjnqzybN6RjxPLhVvO3 OCG9jESqgQ5yrQrm tkazuT2eTps+S70TBO9N LCUARN8HRsj8F8EgLuxh dHI+JX05AIDtKC96eNMf fAAlr8hjqOj7LgLm XUNnIVA2bRyqUYlva8Yz UXAmC21giMEex9G1QOHh bBkdhAOwRtBpdCZ8hR0k CLitkocou8pgmely Qeqje2sjef44yX43Z53n XKysGPBrHCI6SJYlNTLn hHkjpv3kzM7kUl0+IDxj z5ton4phkYl8OqXy GTKsgnEmiTqnCOE6f3Zf Lu77O4JokLosw1JaYxc9 zy10sDHeq0Y2jXP5VAvb EBHukL5kVFvmAwB5 PACkOpUazE13qTFeRIwj Dn8osAejbWwcKG8oVLMs uqknBHVmeZ2aAVEwgTXb aPuqAO6kVKKlzrmi e725ApJyXLM6XPThoYGg L4RjdS3vAdLnJPToCMUt H8DehAGjBAplZ271TDxb IiC3BZQclnDbX7Vp SMOldFzgAvA4g5G3Ew2H b7FqpylcPNK5CTkzRNWl GtQ3EbXlOeT8L9TuBrk7 LKYvtTorUR5wL1Vo MAGpymarggbftCH2BBWp WPNdjS63aPJhQYzxSl7r l9H2a771IGFdGIGgmE25 Jn8qgIcsAWFyzMXN tU4uwcojs9zwzeojHnEw BQUwPYa0PZo1FABogNwm MrVxRGH1AdS6IZF1wSCq lP8wcNipebxcfK6v Oyc+D76isV7sSBM8WKO3 vxbrBVHkqvYmGJ55DK94 P9RsEkfhlNOreUR+PGRp brHvdQixLT0aNfPo o0wwh9TzBUksU6FnKNLj EHuzHwb9IJUuESJ8aWQ4 vD6pSWHdOXrnv9K8mWE5 H4KevjUdiu6aj8rt CHWoXWqwD95xqVXea5V8 EOSgdVL5XBXumGnqZbTq tQ43Ftr+ZNLavTyoq2Sj Pixiu4hio8fgyPz8 IjMwJSIgdmFsaWduPSJ0 f6RqBe16O42gFOnpLIEf VIOuGYEpKBUsaUbvkb3r fH7dWd3+PGNvbCB3 fVT3sL8zCSZbFfY0WEnr C220VbWynQMaClkbz7bi f4ugdQl1KdDyZMChiyCg oVbbYWR6z7NoMv66 P02cYRppWVMxSCMmTWQm SIIvtTcroc6ywN7yWf3+ FH8mw7palu66fT86dVP+ SZUoYIZ6tNcrPRrb UKKixY9lLRooNyN0RFBl OnQiiM89hXLbLTpcDi7c wCmflDyyDO2sMFYiwwji e033UtUlb2eyBSUk aZIyQFplHRP4W99rj3I1 TQEjNHCpOTJ6nTD3dP1g bGlnbjogbGVmdDsgdmVy vYnaLVfoHKcuE861 IHRvcDsnPlBhdGllbnQg CsPhNTi0P8LrLsu6XTYm rRqkBW6fkAUuSSfxIs6f aIqquAkhYX1eQVTm fkuhq826CqPrf7ddMWRr kWVfNQkqTMG8R77cm2N3 URYqAUTkYHL8aXY2dM3l bGlnbjogbGVmdDsg joKvfJpoRJhwSZltD409 IHRvcDsnPkJpcnRoIERh dLS3AN60SS43rUWye0H3 eUK2O0LlETKttvrn jcwonAZ8NAYgYAEqyJ81 Rt1imSwlGd3dRBNzNAP3 QHDqsBOpB2XnkO2bHsGm YJIhAZKqY9KiaBZj XWwfV923QRsqFiU0RNWn fkCuP8XbLTUqsHcgNbC4 q5C2Zg8NM0U1LS85JN88 mAXuk4P9bJB9K0Tn BLAahvrgnwslpUS6KNUp QEPffI51Tt9upKrvAs9l NXStZTS1LOLobYLoC8Jr gJ0sFjRjEITpHWLe F1RjxTPsCYtgT349WYxo MmF5HFElmfXtO8OdAKJy uAlpEnN3b8H6Sz7YUEt8 XL86PM67yHMed3F4 pHW4X1TbGXYwcxltgkcd uKF8PJPvLPAicB06Vr1t hOgoVc0tUMDsOLQ0GWBu ySFeE6XboK2tDmMt NPZsUNVxF1OjyWLfCNiq F329UDqtAaA4ZSNhcyUk O3QbHYYnhTveCdY2n7B8 Jt3SGOAhHN18ZKT7 qWX2BP67XB27L4DvNjty dGFibGU+PHRhYmxlIHdp ZHRoPScxMDAlJyBzdHls JZ6sTm2nRHUdFBMa aYxmfXNcSlXgs1baNCUs IMbvQR5ueBcwX7GxrMV6 PIWev3k8Wz55G92qQ1Eu dXA+DGXxdIT1wFG0 vO5sUjOgOoU7EYajU856 JjSycCNxXbpcs5iln7if tNz3CcH9OESbznLbpThq WRV1z2XpXg18D30l IHdpZHRoPSIxNSUiIHZh cOjgqe0kkM2cFj6+PGNv eYE8nCS2iE3gOzUzIrP1 BLadM296TrLwgQJl Ctuwd3nyl7rhrPo8CkLv KBKcfuKyqGedCAB7z9Rt Rn29W7SwhPvyw4EvXda5 yy10qWFtz2R5vHV3 D4CtVAJghafwwDUxfNcf YK0uMIDkjldpMHZkmG1r CSRuX5h7EbRlTsC0BYga T9AlvbM6DYZnqVCk NKxrAZH4D69bg2O0KBCj GGMiSNL2dBL5oQ3noBxs bjogbGVmdDsgdmVydGlj CMpqCKdiZ216VAOf sDdxPHEwuT0sMEZctXZv oQabKT6xYCMrdsyoYsFZ Ky6GXIKuOPyUYMkFSJ6a RTwvdGQ+PHRkIHN0 tOwuGMeeDFPtpL5lETAk T4x2UeWfQhK2HKpiY9Mf CHUtvnufBa00xB1cVpMb UkU9ADkaC6QeedL1 KOKmtMSjNHerYWI5V20n g7L2HXXnVAQvWTI3hZD8 oL8acYqlcgsrxGFohLmf dmVydGljYWwtYWxp S641PROxdDveIkJeTxJ5 CdV8DXD1G8ObDrf9OIEz yZeiKM8wgTUwYOrnKj8a lXxkhBiiJU4cAOHx sljjACPpeP4kIUZoyDOu cTxgCC0fKJKfunsdz607 VrYlYSF0TNQdtZHrQ8Nm hL3wVcTlKCFdDCQu N2OdbHIuKDxhZ341YBtl ByA8BIRwlpNlR7PmMCHc zAjrYiV7r6R8Qp8zWjOG ZWFyczwvdGQ+PHRk ECC1bBhmWAlgPCPeeA4b PYEjK3i3RyBxFaR0IKdp X3WzMFQegmkvKx32aF0u WuFrFxK6CTboL9Nn waO6RIWkhZLcDKokMMG0 S94lu7Q6KDVfWJNrRKK2 fVL1wU1myAymxddlgYIw dDsgdmVydGljYWwt QBpeM272SFCbxOusAkUr bWFsZTwvdGQ+PHRkIHN0 bHkvFZxsTSKlzH5pCYYu X1g9DpFcWdP6PVad J3KnSNAvzxnaXr68uK0r GwCtFpV9SHhpG2TebvV1 ORTnyONsQDixCMS7S91p k4J1OJQiKFCiQWI5 vDN9cM7mwHlcpktbiMRm dDsgdmVydGljYWwtYWxp H659RAUlcNjhLqIpNQCa QD9wrIirfZQ+PC90 jh51H8FiWvkbYif0JUEa QGM9jRN6zA8kHTZoITac l8K1zQB9X1UennJhkj6g l3wgIHKpXUzlQ43r jPXsv6S3MHNydHF5JSZp wWfhIwGzyI86Pzf+PGNv fGrkp4UjNchco6iig8oh nCy1KjCcIEChnePc mIqwKWE7g2EkFd05H90n IHdpZHRoPSIzMCUiIHZh lLdjuu8ilZ0qQy3+PGNv mUZ4uUZ2oU1oJhKc ScH9VEglW618GxGboNXm Vgpjc7dfs0juqAm8SpNk PPUxacFjvRdhKKX9r9Eb Uh61M0WamSnbh9Cu Txi8sw26hFDai4R7fZC7 C2LxVSUmimkaaLZiyZeo ZW0yNNDwrvozHJKguW9l IVOjS4v0PeAcWoL6 ITbrY5WjsrU2VMKdmLAc TYWkwQBYjC0enyaxv0lt rptrXpKdZPKdMJt9DCy0 LWFsaWduOiBsZWZ0 RfU4HWH7lIEtxH8rdTwc xrdlcS9vUgd+YNa0a7ye sDSlRZ2kqRV7FU89LT26 kVHlj2D2lIX3V6Qx IJRrazycivkiqVG9RJLn HKDdhT08Rv3gcQeiCh8y VVEnVZN8KXXoxBEjE3Jm zK0lCwSdTGTmOBCm G7GitPGnUHnoX700PUth XcR2BUOsxlGtA6WlWFLn rHqvBfI2x5M2Ip9NIY25 DU85OW57nZJhi4D2 vST4V4LgBMOociegfscd jPZ0XCFcXRBgaU52Fb4c dWpsTl6nARQiGFC0LTAg zONrI7WkcM4cVjMn NSQbGXQtW4FaiASvWKhh R487EJfsHvU1IVHvzlJc W0MoJTBfpZraFvK9h0P6 Gt6OLk75PE04OR35 vTYka2T4iWC2B8PyCKVa gdrzahbyuKE9KOMuWSXw vH85Yb3uzJalMc5uOFXd KXW5RCYydMPoY2Pe gL5bOcPfPDScJQTwP4Wi nAUtYXeqW953RIagVuZ0 ZFMihkBnH1FrZUJvhHdv MwY9i1P2Ld6QTSuy osl9U3OcOrbmnDB+PC90 RFJxZM62gYAvpQHuz3pz kHt7HoVlUFNfZWS0jTnu QWibo5HxCOXaZ99k bGFw (more content not included)... Normal [facility] Consent for Treatmenton 08-22 Consent for Treatment [id number] #1.00CD:127 Normal [facility] Discharge Instructionson Discharge Instructions [id number] #1.00CD:127 Normal [facility] ED Clinical Summaryon 2021 ED Clinical Summary [address] [address] ED Clinical Summary Person Information Name: MEENA LUCERO [place] Age: 26 Years : 1995 Sex: Female Language: Eritrean PCP: Charli LOPEZ Marital Status: Single Visit [...] 09/03/2022 15:51:51 09/03/2022 15:51:51 09/03/2022 15:51:51 ADDRESS: [address] [place] [phone] PHYS DOC NOTES: MEDICAL INFORMATION: Prescriptions Given: New Medications [facility], [address], [place] [id number], [phone] ondansetron (Zofran ODT 4 mg Tab-Dis) 1 Tablets By Mouth 3 times a day. Refills: 0. Medications to Continue with No Changes Other Medications multivitamin, ( Multivitamins with Vitamin B Complex, Vitamin C, Minerals and L-Methylfolate oral capsule) 1 Capsules By Mouth every day. Refills: 0. PATIENT EDUCATION INFORMATION: Instructions: Nausea and Vomiting, Adult Follow up: With: Address: When: Charli CARLSON [address] [place] [phone] Business (1) In 3 days 09/06/2022 DIAGNOSIS: Nausea & vomiting Normal [facility] ED Note-Physicianon 09-03-20 ED Note-Physician [...] TID, # 15 tab(s), Refills(s) 0, Pharmacy: [facility], 170, cm, 09/03/22 14:31:00 EDT, Height/Length [...] CARLSON In 3 days 09/06/2022 EDT [address] [place] [address] [facility] (1) Additional Instructions: Patient Education Nausea and Vomiting, Adult Attestation Patient seen and evaluated by the physician assistant chief train dispatcher. Attending physician was present in the emergency department and supervised care. This visit was performed by both the physician and an APC. I performed all aspects of the MDM as documented. This report was transcribed using voice recognition software. Every effort was made to ensure accuracy, however, inadvertently computerized sack cleaning hand mistakes may be present. Appropriate healthcare PPE [...] (09/03/22 14:49:0 (more content not included)... Normal [facility] Comment on above: Result [...] added (diluted fruit juice). ? Eat bland, blqz-wy-gpxwmu foods in small amounts as you are able. These foods include bananas, applesauce, rice, lean meats, toast, and crackers. ? Avoid fluids that contain a lot of sugar or caffeine, such as energy drinks, sports drinks, and soda. ? Avoid alcohol. ? Avoid spicy or fatty foods. General instructions ? Take ggtg-han-kfvxqnl and prescription medicines only as told by your health care provider. ? Drink enough fluid to keep your urine pale yellow. ? Wash your hands often using soap and water. If soap and water are not available, use hand inspector government property. ? Make sure that all people in [...] and drinking to prevent dehydration. ? Take myjc-tyu-pueupsl and prescription medicines only as told by [...] Reviewed: 04/18/2019 Elsevier Patient Education ? 2019 [employer]. [facility] ED Patient Summaryon ED Patient Summary [address] [address] Patient Discharge Instructions Person Information Name: MEENA LUCERO Age: 26 Years Arrival Date: 09/03/2022 14:27:10 Discharge Diagnosis: Nausea & vomiting Primary Care Physician: Charli LOPEZ Provider Information Primary Provider: Evan Moyer DO Advanced Actuarial Science Teacher:Neil Meza PA-C The exam and treatment you received in the Emergency Department were for an urgent problem and are not intended as complete care. It is important that you follow up with a doctor, nurse practitioner, or physician?s assistant chief train dispatcher for ongoing care. If your symptoms become worse or you do not improve as expected and you are unable to reach your usual health care provider, you should return to the Emergency Department. We are available 24 hours a day. EMENA LUCERO has been given the following list of patient education materials, prescriptions and follow-up instructions: Follow-up Instructions: With: Address: When: Charli CARLSON [address] [place] [address] Business (1) In 3 days 09/06/2022 In the event that this physician does not participate in your insurance network, please consult with your insurance company to find a nearby participating provider. Patient Education Materials: Nausea and Vomiting, Adult A MESSAGE TO ALL PATIENTS REGARDING OPIOIDS PRESCRIPTION OPIOIDS: WHAT YOU NEED TO KNOW Prescription opioids can be used to help relieve wtahxoip-mo-oaztiv pain and are often prescribed following a [...] be struggling with addiction, tell your health home health caregiver and ask for guidance or call [facility] official.fm Helpline at [phone]-IAKQ. Bee Resilient Source: [place] Dep (more content not included)... Normal [facility] U BetaHcg Qualon 09-03-2022 HCG.beta subunit (U) [Moles/Vol] Negative Normal [facility] Comment on above: Performed By: #### 2 [id number], [id number], [id number] ####[facility] [address] [place] [address] UA With Cult Reflexon 2021 Bacteria LM Ql (Urine sed) 2+ /HPF Abnormal Trace [facility] Comment on above: Performed By: #### 2 [id number], [id number], [id number] ####[facility] [address] [place] [address] Bilirubin Ql (U) Negative Normal Negative [facility] Comment on above: Performed By: #### 2 [id number], [id number], [id number] ####[facility] [address] [place] [address] Clarity (U) CLEAR Normal Clear [facility] Comment on above: Performed By: #### 2 [id number], [id number], [id number] ####[facility] [address] [place] [address] Color (U) YELLOW Normal Yellow [facility] Comment on above: Performed By: #### 2 1780469, [id number], 0523960 ####[facility] [address] [place] [address] Epithelial cells.squamous LM.HPF (Urine sed) [#/Area] 5-8 Normal 0-2 [facility] Comment on above: Performed By: #### 2 9988973, 41308055, 3634832 ####[facility] [address] [place] [address] Glucose Test strip (U) [Mass/Vol] Negative Normal Negative [facility] Comment on above: Performed By: #### 2 9432235, 30284218, 4238316 ####[address] [address] Hemoglobin Ql (U) Negative Normal Negative [facility] Comment on above: Performed By: #### 2 3699235, 92918570, [id number] ####[facility] [address] [place] [address] Ketones (U) [Mass/Vol] Negative Normal Negative [facility] Comment on above: Performed By: #### 2 0869501, 78324477, 2802293 ####[facility] [address] [place] [address] [place].plasma/Lith ium.RBC (Bld) [Mass ratio] 0-3 Normal 0-3 [facility] Comment on above: Performed By: #### 2 2667466, 20894606, 2090737 ####[facility] [address] [place] [address] Mucus Ql (Urine sed) 1+ Normal [facility] Comment on above: Performed By: #### 2 1213534, 76262987, 7798123 ####[facility] [address] [place] [address] Nitrite Ql (U) Negative Normal Negative [facility] Comment on above: Performed By: #### 2 8841071, 43247014, 9345780 ####[address] [address] pH (U) 5.5 [pH] Invalid Interpretation Code 5.0-9.0 [facility] Comment on above: Performed By: #### 2 6767920, 51532076, 9914818 ####[place] [id number] Protein (U) [Mass/Vol] Negative Normal Negative [facility] Comment on above: Performed By: #### 2 0280121, 56663177, 5034039 ####[place] [address] Specific gravity (U) [Rel density] >=1.030 Invalid Interpretation Code 1.005-1.030 [facility] Comment on above: Performed By: #### 2 3015262, 73762347, 8082797 ####[place] [address] Type of Urine collection method Clean Catch Normal [facility] Comment on above: Performed By: #### 2 3427554, 54967291, 2493454 ####[place] [address] Urobilinogen Qn (U) 0.2 {Elver'U}/dL Normal 0.0-1.0 [facility] Comment on above: Performed By: #### 2 4144157, 95101536, 5186685 ####[place] [address]257 WBC Auto Ql (U) Negative Normal Negative [facility] Comment on above: Performed By: #### 2 2715687, 15986259, 6926019 ####[place] 4[address]257 WBC LM.HPF (Urine sed) [#/Area] 0-5 Normal 0-5 [facility] Comment on above: Performed By: #### 2 4082662, 62398156, 1391813 ####[facility] [address] [place] [address] XR WRIST LEFT (MIN 3 VIEWS)o n 06-19-2022 Normal left wrist. [facility] EXAM: XR WRIST LEFT (MIN 3 VIEWS) HISTORY: M25.532. 26-year-old female, left wrist pain. COMPARISON: None. TECHNIQUE: Three views left wrist. FINDINGS: The radiocarpal joint and wrist are normal. Normal scapholunate distance. No erosion or chondrocalcinosis. [facility] Mauro Anton Jr., MD - 06/19/2022 EXAM: XR WRIST LEFT (MIN 3 VIEWS) HISTORY: M25.532. 26-year-old female, left wrist pain. COMPARISON: None. TECHNIQUE: Three views left wrist. FINDINGS: The radiocarpal joint and wrist are normal. Normal scapholunate distance. No erosion or chondrocalcinosis. IMPRESSION: Normal left wrist. 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 pain has been constant for about 1 week now. History of Present Illness Pt presents today to [facility]. Previous pt of [facility] in [place]. Concerned today about left wrist pain which started about 1 yr ago; pain has worsened over the last week. 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 Carries everything in her left hand. Right handed. Pain location: medial martinez hand, radiating to wrist Pain description: shooting Pain rated: 2/10, 7/10 with certain movements. 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 Negative Tinels and DeQuervians. + Phalens. Corporate Tutor strength equal. Neurologic: Cranial nerves II-XII grossly intact. Skin: [place], warm and dry. No rashes, ulcerations, or [...] day(s), # 30 tab(s), Refills(s) 1, Pharmacy: [id number], 170, cm, 06/01/22 12:55:00 EDT, Height/Length Dosing, 91.3, kg, 06/01/22 12:55:00 EDT, Weight Dosing [facility] External Ambulatory Referral 2. BMI 31.0-31.9,adult (Z68.31: Body mass index [BMI] 31.0-31.9, adult) The standard range for ages 18 and older is >=18.5 and < 25 kg/m2. Your BMI today was above this range, this falls in the obese category and there are medical benefits to weight loss. We can offer counselling, referral, and/or medical support in addressing this problem. Visit [employer] for useful information to help make [...] unspecified fo (more content not included)... Normal [facility] Comment on above: Result Comment: Kathie adhikarially Signed By: Meena Carl CNP.mariann\Date and Time [...] height. This can be done either in [place] or metric measurements. Note that charts are available to help you find your BMI quickly and easily without having to do these calculations yourself. To calculate your BMI in [place] measurements, your health care provider will: [...] problems. ? BMI can be measured using [place] measurements or metric measurements. ? To interpret [...] 07/20/2005 Document Revised: 10/21/2018 Document Reviewed: 09/21/2018 [employer] Patient Education ? 2020 [employer] Orthopedics Carpal Tunnel Syndrome Carpal tunnel [...] Having a job, such as being a park keeper or a head cashier, that requires you to repeatedly move [...] and midd (more content not included)... Normal [facility] Physician Referralon 022 Physician Referral [id number] #[id number] Normal [facility] Vital Signs Date Time Vital Sign Value Performing Clinician Chucki gayla 03-19-2025 09:04-0400 Body mass index (BMI) [Ratio] 39.77 kg/m2 [employer] DO Work Phone: [facility] 03-19-2025 09:04-0400 Body weight 108.41 kg Gary Enriqueta DO Work Phone: [facility] 03-19-2025 09:04-0400 Diastolic blood pressure 78 mm[Hg] Gary Enriqueta DO Work Phone: [facility] 03-19-2025 09:04-0400 Systolic blood pressure 116 mm[Hg] Gary Enriqueta DO Work Phone: [facility] 02-28-2025 11:18-0400 Body mass index (BMI) [Ratio] 38.74 kg/m2 Gary Enriqueta DO Work Phone: [facility] 02-28-2025 11:18-0400 Body weight 105.6 kg Gary Enriqueta DO Work Phone: [facility] 02-28-2025 11:18-0400 Diastolic blood pressure 80 mm[Hg] Gary Enriqueta DO Work Phone: [facility] 02-28-2025 11:18-0400 Systolic blood pressure 120 mm[Hg] Gary Enriqueta DO Work Phone: [facility] 02-13-2025 08:58-0400 Body mass index (BMI) [Ratio] 38.11 kg/m2 Gary Enriqueta DO Work Phone: [facility] 02-13-2025 08:58-0400 Body weight 103.87 kg Gary Enriqueta DO Work Phone: [facility] 02-13-2025 08:58-0400 Diastolic blood pressure 74 mm[Hg] Gary Enriqueta DO Work Phone: [facility] 02-13-2025 08:58-0400 Systolic blood pressure 120 mm[Hg] Gary Enriqueta DO Work Phone: [facility] 01-16-2025 08:41-0500 Body mass index (BMI) [Ratio] 38.07 kg/m2 Gary Enriqueta DO Work Phone: [facility] 01-16-2025 08:41-0500 Body weight 103.78 kg Gary Enriqueta DO Work Phone: [facility] 01-16-2025 08:41-0500 Diastolic blood pressure 70 mm[Hg] Gary Enriqueta DO Work Phone: [facility] 01-16-2025 08:41-0500 Systolic blood pressure 110 mm[Hg] Gary Enriqueta DO Work Phone: [facility] 12-19-2024 10:19-0500 Body mass index (BMI) [Ratio] 37.44 kg/m2 Gary Enriqueta DO Work Phone: [facility] 12-19-2024 10:19-0500 Body weight 102.06 kg Gary Enriqueta DO Work Phone: [facility] 12-19-2024 10:19-0500 Diastolic blood pressure 76 mm[Hg] Gary Enriqueta DO Work Phone: [facility] 12-19-2024 10:19-0500 Systolic blood pressure 122 mm[Hg] Gary Enriqueta DO Work Phone: [facility] 11-20-2024 09:42-0500 Body mass index (BMI) [Ratio] 36.61 kg/m2 Genevieve MARIA Work Phone: [facility] 11-20-2024 09:42-0500 Body weight 99.79 kg Genevieve MARIA Work Phone: [facility] 11-20-2024 09:42-0500 Diastolic blood pressure 74 mm[Hg] Genevieve MARIA Work Phone: [facility] 11-20-2024 09:42-0500 Systolic blood pressure 120 mm[Hg] Genevieve MARIA Work Phone: [facility] 10-17-2024 13:10-0500 Body mass index (BMI) [Ratio] 35.35 kg/m2 Gary Enriqueta DO Work Phone: [facility] 10-17-2024 13:10-0500 Body weight 96.34 kg Gary Enriqueta DO Work Phone: [facility] 10-17-2024 13:10-0500 Diastolic blood pressure 70 mm[Hg] Gary Enriqueta DO Work Phone: [facility] 10-17-2024 13:10-0500 Systolic blood pressure 120 mm[Hg] Gary Enriqueta DO Work Phone: [facility] 09-18-2024 11:15-0400 Body mass index (BMI) [Ratio] 35.2 kg/m2 Gary Enriqueta DO Work Phone: [facility] 09-18-2024 11:15-0400 Body weight 95.94 kg Gary Enriqueta DO Work Phone: [facility] 09-18-2024 11:15-0400 Diastolic blood pressure 74 mm[Hg] Gary Enriqueta DO Work Phone: [facility] 09-18-2024 11:15-0400 Systolic blood pressure 122 mm[Hg] Gary Enriqueta DO Work Phone: [facility] 08-18-2024 10:28-0400 Body mass index (BMI) [Ratio] 34.95 kg/m2 [facility] Nurse [facility] 08-18-2024 10:28-0400 Body weight 95.25 kg [facility] Nurse [facility] 01-10-2023 14:29-0500 Body height 165.1 cm Best Canales MD Work Phone: [facility] 01-10-2023 14:29-0500 Body mass index (BMI) [Ratio] 34.35 kg/m2 Best Canales MD Work Phone: [facility] 01-10-2023 14:29-0500 Body temperature 98.49 [degF] Bets Canales MD Work Phone: [facility] 01-10-2023 14:29-0500 Body weight 93.62 kg Best Canales MD Work Phone: [facility] 01-10-2023 14:29-0500 Diastolic blood pressure 79 mm[Hg] Best Canales MD Work Phone: [facility] 01-10-2023 14:29-0500 Heart rate 75 /min Best Canales MD Work Phone: [facility] 01-10-2023 14:29-0500 Respiratory rate 16 /min Best Canales MD Work Phone: [facility] 01-10-2023 14:29-0500 SaO2% (BldA) [Mass fraction] 99 % Best Canales MD Work Phone: [facility] 01-10-2023 14:29-0500 Systolic blood pressure 140 mm[Hg] Best Canales MD Work Phone: [facility] 12-08-2022 11:51-0500 Blood Pressure Location Keyon DAVIS [facility] 12-08-2022 11:51-0500 Body temperature 98.24 [degF] Keyon DAVIS [facility] 12-08-2022 11:51-0500 Diastolic blood pressure 78 mm[Hg] Keyon DAVIS [facility] 12-08-2022 11:51-0500 Heart rate 84 /min Keyon DAVIS [facility] 12-08-2022 11:51-0500 Respiratory rate 16 /min Keyon DAVIS [facility] 12-08-2022 11:51-0500 SaO2% (BldA) [Mass fraction] 100 % Keyon DAVIS [facility] 12-08-2022 11:51-0500 Systolic blood pressure 114 mm[Hg] Keyon DAVIS [facility] 12-04-2022 16:32-0500 Body mass index (BMI) [Ratio] 33.66 kg/m2 Jason Tracy MD Work Phone: [facility] 12-04-2022 16:32-0500 Body temperature 98.49 [degF] Jason Tracy MD Work Phone: [facility] 12-04-2022 16:32-0500 Body weight 91.76 kg Jason Tracy MD Work Phone: [facility] 12-04-2022 16:32-0500 Diastolic blood pressure 75 mm[Hg] Jason Tracy MD Work Phone: [facility] 12-04-2022 16:32-0500 Heart rate 91 /min Jason [...] Pressure Location [facility] 06-01-2022 12:50-0400 Body temperature 96.98 [degF] [facility] 06-01-2022 12:50-0400 Diastolic blood pressure 60 mm[Hg] [facility]ena [facility] 06-01-2022 12:50-0400 Heart rate 88 /min [facility]ena [facility] 06-01-2022 12:50-0400 SaO2% (BldA) [Mass fraction] 97 % [facility] 06-01-2022 12:50-0400 Systolic blood pressure 122 mm[Hg] [facility]ena [facility] 09-14-2021 10:15-0400 Body mass index (BMI) [Ratio] 31.62 kg/m2 Keyon Wilkinson MD Work Phone: [employer] Work Phone: 09-14-2021 10:15-0400 Body weight 86.18 kg Keyon Wilkinson MD Work Phone: [employer] Work Phone: 09-14-2021 10:14-0400 Body height 165.1 cm Keyon Wilkinson MD Work Phone: [employer] Work Phone: 09-14-2021 10:14-0400 Body temperature 98.2 [degF] Keyon Wilkinson MD Work Phone: [employer] Work Phone: 09-14-2021 10:14-0400 Diastolic blood pressure 93 mm[Hg] Keyon Wilkinson MD Work Phone: [employer] Work Phone: 09-14-2021 10:14-0400 Heart rate 91 /min Keyon Wilkinson MD Work Phone: [employer] Work Phone: 09-14-2021 10:14-0400 Respiratory rate 20 /min Keyon Wilkinson MD Work Phone: [employer] Work Phone: 09-14-2021 10:14-0400 SaO2% (BldA) [Mass fraction] 96 % Keyon Wilkinson MD Work Phone: [employer] Work Phone: 09-14-2021 10:14-0400 Systolic blood pressure 131 mm[Hg] Keyon Wilkinson MD Work Phone: [employer] Work Phone: Encounters Encounter Date Encounter Type Care Provider Facility Start: 03-24-2025 End: 03-24-2025 [facility] Result Encounter Gary Enriqueta DO Work Phone: [facility] Start: 03-24-2025 End: 03-24-2025 [facility] Result Encounter Gary Enriqueta DO Work Phone: [facility] Start: 03-23-2025 End: 03-23-2025 [facility] Result Encounter Gary Enriqueta DO Work Phone: [facility] Start: 03-23-2025 End: 03-23-2025 [facility] Result Encounter Gary Enriqueta DO Work Phone: [facility] Start: 03-20-2025 End: 03-20-2025 Clinisync Result Encounter Genevieve MARIA Work Phone: [facility] Start: 03-20-2025 End: 03-20-2025 [facility]inisync Result Encounter Genevieve MARIA Work Phone: [facility] Start: 03-19-2025 End: 03-19-2025 Office outpatient visit 15 minutes Gary Enriqueta DO Work Phone: [facility] Comment on above: Third trimester preg wily; 37 weeks gestation of ; Macrosomia of fetus affecting management of mother, antepartum, fetus 1 of multiple gestation Start: 03-19-2025 End: 03-19-2025 ambulatory GARY ENRIQUETA Not Available Start: 03-13-2025 End: 03-13-2025 Clinisync Result Encounter Genevieve MARIA Work Phone: [facility]olic[facility] Start: 03-13-2025 End: 03-13-2025 Clinisync Result Encounter Genevieve MARIA Work Phone: [...] Start: 01-29-2025 End: 01-29-2025 ambulatory JOHN Sarkis [facility] Start: 01-29-2025 End: 01-29-2025 Subsequent hospital [...] Not Available Start: 01-15-2025 End: 01-15-2025 ambulatory [facility] Start: 01-15-2025 End: 01-15-2025 Subsequent hospital visit by physician John Partida DO Work Phone: [facility] Comment on above: Arrived Start: 01-12-2025 End: 01-12-2025 [facility] Start: 01-12-2025 End: 01-12-2025 Subsequent hospital visit by physician John Partida DO Work Phone: [facility] Comment on above: Arrived Start: 01-10-2025 End: 01-10-2025 [facility] Start: 01-10-2025 End: 01-10-2025 Subsequent hospital visit by physician John Partida DO Work Phone: [facility] Comment on above: Arrived Start: 01-05-2025 End: 01-05-2025 [facility] Start: 01-05-2025 End: 01-05-2025 Subsequent hospital visit by physician John Pratida DO Work Phone: [facility] Comment on above: Arrived Start: 01-02-2025 End: 01-02-2025 [facility] Start: 01-02-2025 End: 01-02-2025 Subsequent hospital visit by physician John Partida DO Work Phone: [facility] Comment on above: Arrived Start: 12-29-2024 End: 12-29-2024 [facility] Start: 12-29-2024 End: 12-29-2024 Subsequent hospital visit by physician John Partida DO Work Phone: [facility] Comment on above: Arrived Start: 12-27-2024 End: 12-27-2024 [facility] Start: 12-27-2024 End: 12-27-2024 Subsequent hospital visit by physician John Partida DO Work Phone: [facility] Comment on above: Arrived Start: 12-25-2024 End: 12-25-2024 Clinisync Result Encounter Gary Enriqueta DO Work Phone: [facility] Start: 12-25-2024 End: 12-25-2024 [facility] Result Encounter Gary Enriqueta DO Work Phone: [facility]solic[facility] Start: 12-22-2024 End: 12-22-2024 [facility] Start: 12-22-2024 End: 12-22-2024 Subsequent hospital visit by physician John Partida DO Work Phone: [facility] Comment on above: Arrived Start: 12-20-2024 End: 12-20-2024 [facility] Start: 12-20-2024 End: 12-20-2024 Subsequent hospital [...] ENRIQUETA Not Available Start: 12-15-2024 End: 12-15-2024 [facility] Start: 12-13-2024 End: 12-13-2024 [facility] Start: 12-13-2024 End: 12-13-2024 Subsequent hospital visit by physician John Partida DO Work Phone: [facility] Comment on above: Arrived Start: 12-06-2024 End: 12-06-2024 ambulatory JOHN PARTIDA [facility] Start: 12-06-2024 End: 12-06-2024 Subsequent [...] encounter status Gary Enriqueta DO Work Phone: [facility] Start: 10-12-2024 End: 10-12-2024 ambulatory [facility] Start: 10-12-2024 End: 10-12-2024 Subsequent hospital visit by physician John Partida DO Work Phone: [facility] Comment on above: Arrived Start: 10-10-2024 End: 10-10-2024 [facility] Start: 10-10-2024 End: 10-10-2024 Subsequent hospital visit by physician John Partida DO Work Phone: [facility] Comment on above: Arrived Start: 10-04-2024 End: 10-04-2024 Subsequent hospital visit by physician John Partida DO Work Phone: [facility] Start: 10-04-2024 [facility] Start: 09-18-2024 End: 09-18-2024 Office outpatient [...] Start: 08-07-2024 End: 08-07-2024 ambulatory GARY AGUILAR [facility] Start: 08-07-2024 End: 08-07-2024 Subsequent hospital visit by physician Óscar Villagran DNP Work Phone: [facility] Start: 08-02-2024 End: 08-02-2024 Clinisync Result Encounter Gary Enriqueta DO Work Phone: [facility] Start: 08-02-2024 End: 08-02-2024 [facility] Result Encounter Gary Enriqueta DO Work Phone: [facility]solic[facility] Start: 08-02-2024 End: 08-02-2024 ambulatory [facility] Start: 07-31-2024 End: 07-31-2024 [facility]inis[facility] Result Encounter Gary Enriqueta DO Work Phone: [facility] Unsolic[facility] Start: 07-31-2024 End: 07-31-2024 [facility] Result Encounter Gary Enriqueta DO Work Phone: [facility] Unsolic[facility] Start: 07-31-2024 End: 07-31-2024 ambulatory [facility] Start: 07-31-2024 End: 07-31-2024 Subsequent hospital visit by physician Óscar Villagran DNP Work Phone: [facility] Start: 07-29-2024 End: 07-29-2024 [facility] Result Encounter Gary Enriqueta DO Work Phone: [facility] Start: 07-29-2024 End: 07-29-2024 [facility] Result Encounter Gary Enriqueta DO Work Phone: [facility]olic[facility] Start: 07-29-2024 End: 07-29-2024 [facility] Start: 07-27-2024 End: 07-27-2024 Clinisync Result Encounter Gary Enriqueta DO Work Phone: [facility]solic[facility] Start: 07-27-2024 End: 07-27-2024 [facility] Result Encounter Gary Enriqueta DO Work Phone: [facility]solic[facility] Start: 07-27-2024 End: 07-27-2024 [facility] Start: 07-27-2024 End: 07-27-2024 Subsequent hospital visit by physician John Partida DO Work Phone: [facility] Comment on above: Arrived Start: 07-25-2024 End: 07-25-2024 [facility] Start: 07-21-2024 End: 07-21-2024 [facility] Start: 07-19-2024 End: 07-19-2024 [facility] Start: 07-13-2024 End: 07-13-2024 Subsequent hospital visit by physician John Partida DO Work Phone: [facility] Comment on above: Arrived Start: 07-13-2024 End: 07-13-2024 [facility] Start: 07-06-2024 End: 07-06-2024 Subsequent hospital visit by physician John Partida DO Work Phone: [facility] Start: 06-29-2024 End: 06-29-2024 [facility] Start: 06-29-2024 End: 06-29-2024 Subsequent hospital visit by physician John Partida DO Work Phone: [facility] Therapy Comment on above: Arrived Start: 06-26-2024 End: 06-26-2024 ambulatory [facility] Start: 06-22-2024 End: 06-22-2024 [facility] Start: 06-20-2024 End: 06-20-2024 ambulatory [facility] Start: 06-16-2024 End: 06-16-2024 ambulatory [facility] Start: 06-14-2024 End: 06-14-2024 ambulatory [facility] Start: 06-08-2024 End: 06-08-2024 ambulatory [facility] Start: 06-08-2024 End: 06-08-2024 [facility] Start: 05-22-2024 End: 05-24-2024 [facility] Start: 05-22-2024 End: 05-24-2024 Subsequent hospital visit by physician Óscar Villagran DNP Work Phone: [facility] Start: 03-04-2024 End: 03-04-2024 ambulatory [facility] Start: 03-04-2024 [facility] Start: 04-09-[address] NONE LISTED REQUEST Facility: Start: 01-29-2023 End: 01-31-2023 Subsequent hospital visit by physician [facility] Additional Xray At [facility] Comment on above: Other closed fractur e of proximal end of right fibula with routine healing, subsequent encounter Start: 01-29-2023 End: 01-31-2023 Subsequent hospital visit by physician Keyon Davis MD Work Phone: [facility] Start: 01-10-2023 End: 01-10-2023 Emergency department patient visit Best Canales MD Work Phone: [facility] ED Comment on above: Injury of right ankl e, initial encounter (Primary Dx) Start: 12-08-2022 End: 12-09-2022 ambulatory Keyon DAVIS Facility:[facility] Start: 12-08-2022 End: 12-08-2022 Patient encounter procedure [facility]ell[facility] Start: 12-04-2022 End: 12-04-2022 Emergency department patient visit Jason Tracy MD Work Phone: [facility] ED Comment on above: Viral illness (Prima ry Dx) Start: 09-03-2022 End: 09-03-2022 Emergency department patient visit Evan Moyer Facility:[facility] Start: 06-19-2022 End: 06-21-2022 Subsequent hospital visit by physician [facility] Additional Xray At [facility] Comment on above: Left wrist pain Start: 06-01-2022 End: 06-02-2022 ambulatory [employer] Meena Carl Facility:[facility] Start: 06-01-2022 End: 06-01-2022 Patient encounter procedure Meena Carl [facility] Start: 05-28-2022 ambulatory [employer] SUPER[employer] Meena Carl Faci lity:[facility] Start: 09-14-2021 End: 09-14-2021 Emergency department patient visit Keyon Wilkinson MD Work Phone: [facility] ED Comment on above: Subacute bronchitis (Primary Dx) Procedures Date Procedure Procedure Detail Performing Clinician Start: 03-24-2025 ALL CBC WITH AUTO DIFF Gary Enriqueta DO Work Phone: Start: 03-23-2025 [facility] CBC WITH PLATEL ET NO DIFFERENTIAL Gary Enriqueta DO Work Phone: Start: 03-20-2025 US OB BPP W NON-STRESS Genevieve MARIA Work Phone: Start: 03-19-2025 Urnls dip stick/tabl et rgnt non-auto w/o micrscp Gary Enriqueta DO Work Phone: Start: 03-13-2025 US OB BPP W NON-STRESS Genevieve MARIA Work Phone: Start: 03-06-2025 US OB BPP W NON-STRESS [...] 60 yrs+ (1 - 1-dose 75+ series) [facility] Start: 2054 Respiratory Syncytia l Virus (RSV) or age 60 yrs+ (1 - 1-dose 60+ series) Respiratory Syncytial Virus (RSV) or age 60 yrs+ (1 - 1-dose 60+ series) [facility] Start: 05-26-2028 Screening for malign ant neoplasm of cervix HPV/Cotest [facility] Start: 10-17-2027 Screening for malign ant neoplasm of cervix [facility] Start: 07-23-2025 Influenza vaccination Influenz a Vaccine (Season Ended) [facility] Start: 03-19-2025 End: 03-19-2026 CULTURE, GROUP B STREP WITH SUSCEPTIBLITY CULTURE, GROUP B STREP WITH SUSCEPTIBLITY Lab Routine Third trimester Expected: 03/19/2025, Expires: 03/19/2026 [facility] Work Phone: Comment on above: Expected: 03/19/2025 , Expires: 03/19/2026 Start: 03-19-2025 End: 03-19-2025 Patient encounter procedure 03/19/2025 8:30 AM EDT Routine [facility] [address] [place] [id number] Gary Robison DO [address] [place] [address] [facility] Start: 03-19-2025 End: 03-19-2025 Professional / ancillary services management 03/19/2025 8:00 AM EDT Ancillary Procedure [facility] [address] [place] [id number] [facility] Start: 03-14-2025 Depression Screen Depression Screen [facility] Start: 02-28-2025 End: 06-30-2025 US for US OB follow up transabdominal approach Imaging Routine Excessive growth affecting management of , antepartum, single or unspecified fetus Expected: 02/28/2025, Expires: 06/30/2025 [facility] Comment on above: Expected: 02/28/2025 , Expires: 06/30/2025 Start: 02-28-2025 End: 02-28-2025 Patient encounter procedure 02/28/2025 11:10 AM EDT Routine [facility] [address] [place] [id number] Gary Robison, [address] [place] [address] [facility] Start: 02-28-2025 End: 02-28-2025 Professional / ancillary services management 02/28/2025 10:30 AM EDT Ancillary Procedure [facility] [address] [place] [id number] [facility] Start: 02-14-2025 End: 02-14-2025 Patient encounter procedure 02/14/2025 9:00 AM EDT Appointment [facility] [address] [place] [address] John Partida, DO [address] [place] [place] [address] Clara Castrejon, PT *[employer] 15 of 30 Sacral Pain, [facility] Comment on above: *[employer] 15 of 30 Sacral Pain, Start: 02-13-2025 End: 02-13-2026 US for US OB follow up transabdominal approach Imaging Routine Excessive growth affecting management of , antepartum, single or unspecified fetus Expected: 02/13/2025, Expires: 02/13/2026 [facility] Work Phone: Comment on above: Expected: 02/13/2025 , Expires: 02/13/2026 Start: 01-30-2025 End: 01-30-2025 Patient encounter procedure 01/30/2025 8:50 AM EDT Routine [facility] [address] [place] [id number] Genevieve Calderon PA [address] [place] [address] [facility] Start: 01-29-2025 End: 01-29-2025 Patient encounter procedure 01/29/2025 9:00 AM EDT Appointment [facility] [address] [place] [address] John Partida, DO [address] [place] [address] Clara Castrejon, PT *[employer] 15 of 30 Sacral Pain, [facility] Comment on above: *[employer] 15 of 30 Sacral Pain, Start: 01-18-2025 End: 01-18-2025 Patient encounter procedure 01/18/2025 8:00 AM EST Appointment [facility] [address] [place] [address] John Partida, DO [address] [place] [address] Clara Castrejon, PT *[employer] 14 of 30 Sacral Pain, [facility] Comment on above: *[employer] 14 of 30 Sacral Pain, Start: 01-16-2025 End: 01-16-2025 Patient encounter procedure [facility] Comment on above: Arrived Start: 01-16-2025 End: 01-16-2025 Professional / ancillary services management 01/16/2025 8:00 AM EST Ancillary Procedure [facility] [address] [place] [address] [place] [phone] [facility] Start: 01-15-2025 End: 01-15-2025 Patient encounter procedure 01/15/2025 9:00 AM EST Appointment [facility] [address] [place] [address] John Partida, DO [address] [place] [address] Clara Castrejon, PT *[employer] 13 of 30 [...] Hospital Encounter [facility] [address] [place] [address] John Partida, DO [address] [place] [address] Lauryn Edwards [facility] Start: 01-02-2025 End: 01-02-2025 Patient encounter procedure 01/02/2025 8:00 AM EST Appointment [facility] [address] [place] [address] John Partida, DO [address] [facility] [facility] [place] [address] Clara Castrejon, PT *[employer] 8 of 30 Sacral Pain, [facility] Comment on above: *[employer] 8 of 30 Sacral Pain, Start: 12-29-2024 End: 12-29-2024 Patient encounter procedure 12/29/2024 11:15 AM EST Appointment [facility] [address] [place] [address] John Partida, DO [address] [facility] [place] [address] Clara Castrejon, PT *[employer] 7 of 30 Sacral Pain, [facility] Comment on above: *[employer] 7 of 30 Sacral Pain, Start: 12-27-2024 End: 12-27-2024 Patient encounter procedure 12/27/2024 9:00 AM EST Appointment [facility] [address] [place] [address] John Partida, DO [address] [facility] [place] [address] Austen Puga, STATE TESTED NURSING ASSISTANT *[facility] 6 of 30 Sacral Pain, [facility] Comment on above: *[employer] 6 of 30 Sacral Pain, Start: 12-22-2024 End: 12-22-2024 Patient encounter procedure 12/22/2024 8:00 AM EST Appointment [facility] [address] [place] [address] John Partida, DO [address] [place] [address] Austen Puga PTA *[employer] 5 of 30 Sacral Pain, [facility] Comment on above: *[employer] 5 of 30 Sacral Pain, Start: 12-20-2024 End: 12-20-2024 Patient encounter procedure 12/20/2024 9:00 AM EST Appointment [facility] [address] [place] [address] John Partida, DO [address] [place] [address] Clara Castrejon, PT *[employer] 4 of 30 Sacral Pain, [facility] Comment on above: *[employer] 4 of 30 Sacral Pain, Start: 12-19-2024 End: 12-19-2024 Patient encounter procedure 12/19/2024 9:50 AM EST Routine [facility] [address] [place] [address] Gary Robison, DO [address] [place] [address] [facility] Start: 12-15-2024 End: 12-15-2024 Patient encounter procedure 12/15/2024 8:15 AM EST Appointment [facility] [address] [place] [address] John Partida, DO [address] [place] [address] Clara Castrejon, PT *[employer] 3 of 30 Sacral Pain, [facility] Comment on above: *[employer] 3 of 30 Sacral Pain, Start: 12-13-2024 End: 12-13-2024 Patient encounter procedure 12/13/2024 9:45 AM EST Appointment [facility] [address] [place] [address] John Partida, DO [address] [place] [address] Trinity Browning *[employer] 2 of 30 Sacral Pain, [facility] Comment on above: *[employer] 2 of 30 Sacral Pain, Start: 2024 Screening for malign ant neoplasm of cervix [facility] Start: 11-20-2024 End: 11-20-2025 CBC panel - Blood by Automated count CBC Lab Routine Diabetes mellitus screening Expected: 11/20/2024 (Approximate), Expires: 11/20/2025 [facility] Work Phone: Comment on above: Expected: 11/20/2024 (Approximate), Expires: 11/20/2025 Start: 11-20-2024 End: 11-20-2025 Measurement of glucose 1 hour after glucose challenge for glucose tolerance test Glucose tolerance, 1 hour Lab Routine Diabetes mellitus screening Expected: 11/20/2024 (Approximate), Expires: 11/20/2025 [facility] Comment on above: Expected: 11/20/2024 (Approximate), Expires: 11/20/2025 Start: 11-20-2024 End: 11-20-2024 Patient encounter procedure 11/20/2024 9:20 AM EST Routine [facility] [address] [place] [address] Genevieve Calderon PA [address] [place] [address] [facility] Start: 11-20-2024 End: 11-20-2024 Professional / ancillary services management 11/20/2024 8:00 AM EST Ancillary Procedure [facility] [address] [place] [address] [facility] Start: 10-17-2024 End: 01-17-2025 [...] procedure 10/17/2024 10:50 AM EST Routine [facility] [address] [place] [address] Gary Robison DO [address] [place] [address] [facility] Start: 10-17-2024 End: 10-17-2024 Patient encounter procedure 10/17/2024 8:15 AM EST Appointment [facility] [address] [place] [address] John Partida, DO [address] [place] [address] Trinity Browning 16 of 30 Sacral Pain, [facility] Comment on above: 16 of 30 Sacral Pain , Start: 10-12-2024 End: 10-12-2024 Patient encounter procedure 10/12/2024 8:00 AM EST Appointment [facility] [address] [place] [address] John Partida, DO [address] [place] [address] Clara Castrejon, PT 15 of 30 Sacral Pain, [facility] Comment on above: 15 of 30 Sacral Pain , Start: 10-10-2024 End: 10-10-2024 Patient encounter procedure 10/10/2024 9:30 AM EST Appointment [facility] [address] [place] [address] John Partida, DO [address] [place] [place] [address] Clara Castrejon, PT 14 of 30 Sacral Pain, [facility] Comment on above: 14 of 30 Sacral Pain , Start: 09-18-2024 End: 09-18-2024 Patient encounter procedure 09/18/2024 10:40 AM EDT Routine [facility] OB [address] [place] [address] Gary Robison DO [address] [place] [address] [facility] Start: 08-18-2024 End: 08-18-2025 ABO/Rh ABO/Rh Lab Routine Missed menses , unspecified gestational age Expected: 08/18/2024 (Approximate), Expires: 08/18/2025 [facility] Comment on above: Expected: 08/18/2024 (Approximate), Expires: 08/18/2025 Start: 08-18-2024 End: 08-18-2025 Blood type and Indirect antibody screen panel - Blood Type and screen Lab Routine Missed menses , unspecified gestational age Expected: 08/18/2024 (Approximate), Expires: 08/18/2025 [facility] Work Phone: Comment on above: Expected: 08/18/2024 (Approximate), Expires: 08/18/2025 Start: 08-18-2024 End: 08-18-2025 Drugs of abuse panel - Urine by Screen method Rapid drug screen, urine Lab Routine , unspecified gestational age Encounter for supervision of normal first in first trimester Expected: 08/18/2024 (Approximate), Expires: 08/18/2025 [facility] Comment on above: Expected: 08/18/2024 (Approximate), Expires: 08/18/2025 Start: 08-18-2024 End: 08-18-2025 US Pelvis transvaginal US OB transvaginal Imaging Routine Missed menses Expected: 08/18/2024 (Approximate), Expires: 08/18/2025 [facility] Comment on above: Expected: 08/18/2024 (Approximate), Expires: 08/18/2025 Start: 08-18-2024 End: 08-18-2024 ambulatory 08/18/2024 9:30 AM EDT Initial [facility] [address] [place] [address] [facility] Start: 08-18-2024 End: 08-18-2024 Professional / ancillary services management 08/18/2024 9:00 AM EDT Ancillary Procedure [facility] OB [address] [place] [address] [facility] Start: 07-23-2024 COVID-19 Vaccine ( season) COVID-19 Vaccine ( season) [facility] Start: 07-23-2024 COVID-19 Vaccine ( season) COVID-19 Vaccine ( season) [facility] Start: 07-23-2024 Influenza vaccination Influenza Vacc ine (#1) [facility] Start: 07-19-2024 End: 07-19-2024 Patient encounter procedure 07/19/2024 8:00 AM EDT Appointment [facility] [address] [place] [id number] John Partida, DO [address] [place] [id number] Asia Mix, PT [address] [place] [id number] [facility] Start: 07-13-2024 End: 07-13-2024 Patient encounter procedure [facility] Start: 07-06-2024 End: 07-06-2024 Patient encounter procedure 07/06/2024 9:00 AM EDT Appointment [facility] [address] [place] [address] John Partida, DO [address] [place] [address] Asia Mix, PT [address] [place] [address] [facility] Start: 06-22-2024 Influenza [...] vaccine (# 1) [facility] [employer] Phone: Start: 08-02-2017 DTaP/Tdap/Td vaccine (2 - Td or Tdap) DTaP/Tdap/Td vaccine (2 - Td or Tdap) [facility] Start: 2015 Screening for malign ant neoplasm of cervix Pap smear [facility] Start: 2013 DTaP/Tdap/Td vaccine (1 - Tdap) DTaP/Tdap/Td vaccine (1 - Tdap) [facility] Work Phone: Start: 2013 Hepatitis B vaccine (1 of 3 - 19+ 3-dose series) Hepatitis B vaccine (1 of 3 - 19+ 3-dose series) [facility] Start: 2012 Hepatitis C screening Hepatitis C caro hernandez [facility] [employer] Start: 2009 HIV screening HIV screen [facility] [employer] Start: 2006 COVID-19 Vaccine (1) COVID-19 Vaccin e (1) [employer] Phone: Start: 2006 Depression Screen Depression Screen [facility] Start: 2005 HPV vaccine (1 - 2-d ose series) HPV vaccine (1 - 2-dose series) [employer] Phone: Start: 1998 Varicella vaccine (2 of 2 - 2-dose childhood series) Varicella vaccine (2 of 2 - 2-dose childhood series) [facility] Start: 1995 Varicella vaccine (1 of 2 - 2-dose childhood series) Varicella vaccine (1 of 2 - 2-dose childhood series) [employer] Phone: Start: 05-30-1995 COVID-19 Vaccine (#1) COVID-19 Vacci ne (#1) [facility] [employer] Start: 1994 Hepatitis B vaccine (1 of 3 - 3-dose series) Hepatitis B vaccine (1 of 3 - 3-dose series) [facility] [employer] Start: 1994 Hepatitis C screening Hepatitis C [facility]nandez [facility] Phone: Bacteria identified in Urine by Culture Urine culture Microbiology Routine Missed menses Ordered: 08/18/2024 [facility] Comment on above: Ordered: 08/18/2024 CBC W Auto Different ial panel - Blood CBC and differential Lab Routine Missed menses , unspecified gestational age Ordered: 08/18/2024 [facility] Comment on above: Ordered: 08/18/2024 CHLAMYDIA TRACHOMATI S (GENITO/STI) CHLAMYDIA TRACHOMATIS (GENITO/STI) Lab Routine Vaginal discharge STD exposure Ordered: 10/17/2024 [facility] Comment on above: Ordered: 10/17/2024 Cytology Cervical or vaginal smear or scraping study Pap Smear Pathology and Cytology Routine Encounter for gynecological examination without abnormal finding Ordered: 10/17/2024 [facility] Comment on above: Ordered: 10/17/2024 Hemoglobin A1c/Hemoglobin.total in Blood Hemoglobin A1c Lab Routine Missed menses , unspecified gestational age Ordered: 08/18/2024 [facility] Comment on above: Ordered: 08/18/2024 Hepatitis B virus surface Ag [Presence] in Serum or Plasma by Immunoassay Hepatitis B surface antigen Lab Routine Missed menses , unspecified gestational age Ordered: 08/18/2024 [facility] Comment on above: Ordered: 08/18/2024 Hepatitis C virus Ab [Presence] in Serum or Plasma by Immunoassay Hepatitis C antibody Lab Routine Missed menses , unspecified gestational age Ordered: 08/18/2024 [facility] Comment on above: Ordered: 08/18/2024 HIV-1/HIV-2 antigen/antibody combination immunoassay HIV-1 and HIV-2 antibodies Lab Routine Missed menses , unspecified gestational age Ordered: 08/18/2024 [facility] Comment on above: Ordered: 08/18/2024 Neisseria gonorrhoea e DNA [Presence] in Unspecified specimen by AWDE with probe detection Neisseria gonorrhea DNA probe, direct Lab Routine Vaginal discharge STD exposure Ordered: 10/17/2024 [facility] Comment on above: Ordered: 10/17/2024 Platelets [#/volume] in Blood Platelet count Lab Routine Low platelet count ([facility]/HCC) Ordered: 12/19/2024 [facility] Work Phone: Comment on above: Ordered: 12/19/2024 Platelets [#/volume] in Blood Platelet count Lab Routine Low platelet count ([facility]/HCC) Ordered: 02/28/2025 [facility] Work Phone: Comment on above: Ordered: 02/28/2025 Reagin Ab [Presence] in Serum by RPR RPR Lab Routine Missed menses , unspecified gestational age Ordered: 08/18/2024 [facility] Comment on above: Ordered: 08/18/2024 Rubella antibody, IgG Rubella an tibody, IgG Lab Routine Missed menses , unspecified gestational age Ordered: 08/18/2024 [facility] Comment on above: Ordered: 08/18/2024 SURESWAB(R) ADVANCED VAGINITIS PLUS, TMA SURESWAB(R) ADVANCED VAGINITIS PLUS, TMA Pathology and Cytology Routine Vaginal discharge STD exposure Ordered: 10/17/2024 [facility] Comment on above: Ordered: 10/17/2024 Immunizations Immunization Date Immunization Notes Care Provider Jaci masterson 02-16-2008 Hep A, unspecified formulation [facility] 08-02-2007 Hep A, unspecified formulation [facility]ena [facility] 08-02-2007 meningococcal ACWY vaccine, unspecified formulation Meena [facility] 08-02-2007 tetanus toxoid, reduced diphtheria toxoid, and acellular pertussis vaccine, adsorbed Meena [facility] 08-19-2000 DTaP, unspecified formulation Meena [facility] 08-19-2000 measles, mumps and rubella virus vaccine Meena [facility] 10-10-1997 varicella virus vaccine Meena [facility] 03-09-1996 DTaP, unspecified formulation Meena [facility] 03-09-1996 Hib, unspecified formulation Meena [facility] 03-09-1996 measles, mumps and rubella virus vaccine Me[facility]azachariah [facility] 06-11-1995 DTP-Hib Meena [facility] 06-11-1995 hepatitis B vaccine, pediatric or pediatric/adolescent dosage Meena [facility] 04-05-1995 DTP-Hib Meean [facility] 02-01-1995 DTP-Hib Meena [facility] 01-04-1995 hepatitis B vaccine, pediatric or pediatric/adolescent dosage Meena [facility] 1994 hepatitis B vaccine, pediatric or pediatric/adolescent dosage Meena [facility] NEGATED: Highlighted row has not occurred!12-08-2022 influenza virus vaccine, unspecified formulation [facility]on DAV[facility] NEGATED: Highlighted row has not occurred!12-08-2022 SARS-CoV-2 mRNA (tozinameran 5y-11y) vaccine Keyon DAVIS [facility] Payers Date Payer Category Payer Medicaid [employer] [place] [id number] 2022-Present [address] [place] [address] [id number] 2022 Private Health Insurance [facility] [id number] 2014 Unknown [id number] 1.2.840.845113.1.13.239.2. 7.3.223751.315 1994 Unknown [id number] 2.16.840.1.606681.3.579.2. 727 1994 Unknown [id number] 2.16.840.1.353114.3.579.2. 727 1994 Unknown [id number] 2.16.840.1.443896.3.579.2. 727 1994 Unknown [id number] 2.16.840.1.080276.3.579.2. 727 1994 Unknown [id number] 2.16.840.1.514499.3.579.2. 593 1994 Unknown [id number] 2.16.840.1.487761.3.579.2. 174 1994 Unknown [id number] 2.16.840.1.405739.3.579.2. 174 1994 Unknown [id number] 2.16.840.1.892870.3.579.2. 174 1994 Unknown [id number] 2.16.840.1.682152.3.579.2. 174 1994 Unknown [id number] 2.16.840.1.091991.3.579.2. 174 1994 Unknown [id number] 2.16.840.1.991717.3.579.2. 174 1994 Unknown [id number] 2.16.840.1.736428.3.579.2. 174 1994 Unknown [id number] 2.16.840.1.730577.3.579.2. 174 1994 Unknown [id number] 2.16.840.1.699290.3.579.2. 174 1994 Unknown [id number] 2.16.840.1.746123.3.579.2. 174 1994 Unknown [id number] 2.16.840.1.612378.3.579.2. 174 1994 Unknown [id number] 2.16.840.1.411956.3.579.2. 174 1994 Unknown [id number] 2.16.840.1.053000.3.579.2. 174 1994 Unknown [id number] 2.16.840.1.428527.3.579.2. 174 1994 Unknown [id number] 2.16.840.1.990154.3.579.2. 174 1994 Unknown [id number] 2.16.840.1.156704.3.579.2. 174 1994 Unknown [id number] 2.16.840.1.535379.3.579.2. 174 1994 Unknown [id number] 2.16.840.1.500844.3.579.2. 174 1994 Unknown [id number] 2.16.840.1.680888.3.579.2. 174 1994 Unknown [id number] 2.16.840.1.442680.3.579.2. 174 1994 Unknown [id number] 2.16.840.1.280042.3.579.2. 174 1994 Unknown [id number] 2.16.840.1.994282.3.579.2. 174 1994 Unknown [id number] 2.16.840.1.587474.3.579.2. 174 1994 Unknown [id number] 2.16.840.1.411904.3.579.2. 174 1994 Unknown [id number] 2.16.840.1.081835.3.579.2. 174 1994 Unknown [id number] 2.16.840.1.358555.3.579.2. 174 1994 Unknown [id number] 2.16.840.1.194314.3.579.2. 174 1994 Unknown [id number] 2.16.840.1.142034.3.579.2. 174 1994 Unknown [id number] 2.16.840.1.378627.3.579.2. 174 1994 Unknown [id number] 2.16.840.1.905729.3.579.2. 174 1994 Unknown [id number] 2.16.840.1.185917.3.579.2. 174 1994 Unknown [id number] 2.16.840.1.590677.3.579.2. 174 1994 Unknown [id number] 2.16.840.1.000231.3.579.2. 174 1994 Unknown [id number] 2.16.840.1.964691.3.579.2. 174 1994 Unknown [id number] 2.16.840.1.032569.3.579.2. 174 1994 Unknown [id number] 2.16.840.1.269468.3.579.2. 174 1994 Unknown [id number] 2.16.840.1.555471.3.579.2. 174 1994 Unknown [id number] 2.16.840.1.872106.3.579.2. 174 1994 Unknown [id number] 2.16.840.1.498558.3.579.2. 174 1994 Unknown [id number] 2.16.840.1.313464.3.579.2. 174 1994 Unknown [id number] 2.16.840.1.974558.3.579.2. 9 1994 Unknown [id number] 2.16.840.1.888707.3.579.2. 1258 1994 Unknown [id number] 2.16.840.1.597348.3.579.2. 1258 1994 Unknown [id number] 2.16.840.1.250665.3.579.2. 1258 1994 Unknown [id number] 2.16.840.1.379976.3.579.2. 1258 1994 Unknown [id number] 2.16.840.1.357663.3.579.2. 1258 1994 Unknown [id number] 2.16.840.1.719089.3.579.2. 9 1994 Unknown [id number] 2.16.840.1.006153.3.579.2. 1258 1994 Unknown [id number] 2.16.840.1.386888.3.579.2. 9 1994 Unknown [id number] 2.16.840.1.536633.3.579.2. 1258 1994 Unknown [id number] 2.16.840.1.856222.3.579.2. 9 1959 Unknown [id number] 1.2.840.572580.1.13.239.2. 7.3.457178.315 Social History Date Type Detail Facility Start: 09-14-2021 End: 09-18-2024 Tobacco smoking status NCIS Never smoker [employer] Phone: Start: 09-14-2021 End: 09-18-2024 Tobacco use and exposure Never used [employer] Start: 09-14-2021 End: 08-21-2024 Alcohol intake Current non-drinker of alcohol (finding) [employer] Work Phone: Start: 1995 Sex Assigned At Not on file [employer] Work Phone: Start: 11-24-2022 End: 01-10-2023 Exposure to SARS-CoV-2 (event) Not sure [employer] Tobacco smoking status Never [facility] Start: 07-19-2023 End: 03-08-2025 Sex Assigned At Female [facility] Start: 12-04-2022 End: 01-10-2023 History SDOH Alcohol Frequency 1 [employer] Work Phone: Start: 07-19-2023 End: 03-08-2025 History of Social function [facility] How often to you hav e a drink containing alcohol? Never [employer] (I/We) worried artemio er (my/our) food would run out before (I/we) got money to buy more. Never true [employer] At any time in the p ast 12 months, were you homeless or living in halfway [including now]? No [employer] Start: 1995 Sex Assigned At Female [facility] Start: 07-19-2023 Gender identity Identifies as female gender (finding) [facility] Start: 07-19-2023 Sexual orientation Heterosexual (finding) [facility] Start: 07-16-2024 [facility] Start: 09-18-2024 End: 02-28-2025 Alcoholic beverage intake Lifetime non-drinker (finding) [facility] Start: 01-03-2013 Sex Female (finding) [facility] Functional Status Date Assessment Result Facility 12-08-2022 Functional Status N/A [facility] [place] 06-01-2022 Functional Status N/A [facility] Clinical Notes 06-01-2022 to 03-19-2025 Bre Cordova, CHILD CARE WORKER - 03/19/2025 8:30 AM Chata Olea, CHILD CARE WORKER - 02/28/2025 11:10 AM Clara Seals, PT - 02/14/2025 9:00 AM Chata [place]a, CHILD CARE WORKER - 02/13/2025 9:00 AM EDTDischarge Instructions Note Date & Type Note Facility 03-19-2025 History of Present illness Narrative Reason for Appointment: Patient ID: Meena Lucero is a 29 y.o. female who presents for Routine Visit Patient presents today for Return OB appointment. MEDICATIONS Current Outpatient Medications Medication Instructions docusate sodium (COLACE) 250 mg, Daily ondansetron ODT (ZOFRAN-ODT) 4 mg, Every 8 [...] Constitutional: Appearance: Normal appearance. She is well-developed. Genitourinary: Vulva normal. Cardiovascular: Rate and Rhythm: Normal rate and [...] nursing note reviewed. Exam conducted with a cyber security instructor present. Vitals: Estimated body mass index is 39.77 kg/m as calculated from the following: Height as of 04/09/23: 5' 5 . Weight as of this encounter: 239 lb. BP: 116/78 Patient's last menstrual period was 06/23/2024. ASSESSMENT & PLAN ICD-10-CM 1. Third trimester Z34.93 POCT urinalysis dipstick manually resulted CULTURE, GROUP B STREP WITH SUSCEPTIBLITY CULTURE, GROUP B STREP WITH SUSCEPTIBLITY 2. 37 weeks gestation of Z3A.37 POCT urinalysis dipstick manually resulted 3. Macrosomia of fetus affecting management of mother, antepartum, fetus 1 of multiple gestation O36.60X1 Patient is doing well but has complaints of being tired and having maternal discomfort due to . Patient verbalized frequent movement and was instructed to perform kick counts three times per day. labor precautions were given, LARC consent was signed/declined, and GBS was obtained. Cervical check was performed and patient is 1cm dilated. Patient to have induction of labor on 03/23/25 @ 0500 @[facility]. Called [facility] and spoke with Amparo who confirmed induction of labor instructions and date. Orders Placed This Encounter Procedures CULTURE, GROUP B STREP WITH SUSCEPTIBLITY POCT urinalysis dipstick manually resulted Follow Up: Patient is to return to office in for 6 week post appointment. Documented by Bre Cordova LPN on behalf of: Gary Robison DO documented in this encounter [facility] 02-28-2025 History of Present illness Narrative Reason [...] nursing note reviewed. Exam conducted with a cyber security instructor present. Vitals: Estimated body mass index is [...] Gary Robison DO documented in this encounter [facility] 02-14-2025 History of Present illness Narrative [facility] Date: 02/14/2025 Patient Name: Meena Lucero : 1995 Pt No Showed Appt- Follow up call, left voicemail for patient to call back to reschedule if wants. Clara Castrejon, PT Date: 02/14/2025 documented in this encounter [facility] 02-13-2025 History of Present illness Narrative [...] nursing note reviewed. Exam conducted with a cyber security instructor present. Vitals: Estimated body mass index is [...] Gary Robison DO documented in this encounter [facility] 01-29-2025 History of Present illness Narrative Images from the original note were not included. [facility] Daily Note Date: 01/29/2025 Patient Name: Meena Lucero : 1995 (29 y.o.) Referring Provider (secondary): Dr. Partida Diagnosis: R buttock pain, sacral pain Treatment Diagnosis: back pain, SI pain Onset Date: 09/28/24 (Referral) PT Insurance Information: [facility] Total # of Visits Approved: [...] Status:: Met Correction Goals Time Frame for Leather Belt Maker Goals : 16 Leather Belt Maker Goal 1: Improve functional mobility with Oswestry score <15/50 (from 22/50) Leather Belt Maker Goal 2: Decrease R SI pain 4/10 at worst x3 days Treatment Tolerance: Treatment Tolerance: Tolerated treatment well. Post Treatment Pain: 4/10 Time In: 9:00 Time Out : 9:33 Timed Code Treatment Minutes: 33 Minutes Total Treatment Time: 33 Minutes Clara Castrejon PT Date: 01/29/2025 documented in this encounter [facility] 01-16-2025 History of Present illness Narrative [...] nursing note reviewed. Exam conducted with a cyber security instructor present. Vitals: Estimated body mass index is [...] Gary Robison DO documented in this encounter [facility] 01-15-2025 History of Present illness Narrative Images from the original note were not included. [facility] Daily Note Date: 01/15/2025 Patient Name: Meena Lucero : 1995 (29 y.o.) Referring Provider (secondary): Dr. Partida Diagnosis: R buttock pain, sacral pain Treatment Diagnosis: back pain, SI pain Onset Date: 09/28/24 (Referral) PT Insurance Information: [facility] Total # of Visits Approved: [...] pelvic stability-Met STG Goal 3 Status:: Met Leather Belt Maker Goals Time Frame for Leather Belt Maker Goals : 16 Leather Belt Maker Goal 1: Improve functional mobility with Oswestry score <15/50 (from /50) Correction Goal 2: Decrease R SI pain 4/10 at worst x3 days Treatment Tolerance: Treatment Tolerance: Tolerated treatment well. Post Treatment Pain: 5/10 Time In: 9:05 Time Out : 9:35 Timed Code Treatment Minutes: 30 Minutes Total Treatment Time: 30 Minutes Clara Castrejon, PT Date: 01/15/2025 documented in this encounter [facility] 01-12-2025 History of Present illness Narrative Images from the original note were not included. [facility] Outpatient Physical Therapy Daily Note Date: 01/12/2025 Patient Name: Meena Lucero : 1995 (29 y.o.) Referring Provider (secondary): Dr. Partida Diagnosis: R buttock pain, sacral pain Treatment Diagnosis: back pain, SI pain Onset Date: 09/28/24 (Referral) PT Insurance Information: [facility] Total # of Visits Approved: [...] pelvic stability-Met STG Goal 3 Status:: Met Leather Belt Maker Goals Time Frame for Correction Goals : 16 Leather Belt Maker Goal 1: Improve functional mobility with Oswestry score <15/50 (from 50) Correction Goal 2: Decrease R SI pain 4/10 at worst x3 days Treatment Tolerance: Treatment Tolerance: Tolerated treatment well. Post Treatment Pain: 3/10 Time In: 8:13 Time Out : 8:54 Timed Code Treatment Minutes: 41 Minutes Total Treatment Time: 41 Minutes Clara Castrejon PT Date: 01/12/2025 documented in this encounter [facility] 01-10-2025 History of Present illness Narrative Images from the original note were not included. [facility] Outpatient Physical Therapy Daily Note Date: 01/10/2025 Patient Name: Meena Lucero : 1995 (29 y.o.) Referring Provider (secondary): Dr. Partida Diagnosis: R buttock pain, sacral pain Treatment Diagnosis: back pain, SI pain Onset Date: 09/28/24 (Referral) PT Insurance Information: [facility] Total # of Visits Approved: [...] pelvic stability-Met STG Goal 3 Status:: Met Leather Belt Maker Goals Time Frame for Correction Goals : 16 Correction Goal 1: Improve functional mobility with Oswestry score <15/50 (from 22/50) Leather Belt Maker Goal 2: Decrease R SI pain 4/10 at worst x3 days Treatment Tolerance: Treatment Tolerance: Tolerated treatment well. Post Treatment Pain: 4/10 Time In: 0902 Time Out: 0933 Timed Code Treatment Minutes: 31 Minutes Total Treatment Time: 31 Minutes Austen Puga, VITA Date: 01/10/2025 documented in this encounter [facility] 01-05-2025 History of Present illness Narrative Images from the original note were not included. [facility] Outpatient Physical Therapy Daily Note Date: 01/05/2025 Patient Name: Meena Lucero : 1995 (29 y.o.) Referring Provider (secondary): Dr. Partida Diagnosis: R buttock pain, sacral pain Treatment Diagnosis: back pain, SI pain Onset Date: 09/28/24 (Referral) PT Insurance Information: [facility] Total # of Visits Approved: [...] mobility with Oswestry score <15/50 (from 22/50) Leather Belt Maker Goal 2: Decrease R SI pain 4/10 at worst x3 days Treatment Tolerance: Treatment Tolerance: Tolerated treatment well. Post Treatment Pain: 5/10 Time In: 0802 Time Out: 0838 Timed Code Treatment Minutes: 36 Minutes Total Treatment Time: 36 Minutes Austen Puga, STATE TESTED NURSING ASSISTANT Date: 01/05/2025 documented in this encounter [facility] 01-02-2025 History of Present illness Narrative Images from the original note were not included. [facility] Outpatient Physical Therapy Daily Note Date: 01/02/2025 Patient Name: Meena Lucero : 1995 (29 y.o.) Referring Provider (secondary): Dr. Partida Diagnosis: R buttock pain, sacral pain Treatment Diagnosis: back pain, SI pain Onset Date: 09/28/24 (Referral) PT Insurance Information: [facility] Total # of Visits Approved: [...] Status:: Met Correction Goals Time Frame for Leather Belt Maker Goals : 16 Leather Belt Maker Goal 1: Improve functional mobility with Oswestry score <15/50 (from ) Correction Goal 2: Decrease R SI pain 4/10 at worst x3 days Treatment Tolerance: Treatment Tolerance: Tolerated treatment well. Post Treatment Pain: 810 Time In: 1114 Time Out : 1152 Timed Code Treatment Minutes: 37 Minutes Total Treatment Time: 37 Minutes Lauryn Edwards,STATE TESTED NURSING ASSISTANT Date: 01/02/2025 documented in this encounter [facility] 12-29-2024 History of Present illness Narrative Images from the original note were not included. [facility] Outpatient Physical Therapy Daily Note Date: 12/29/2024 Patient Name: Meena Lucero : 1995 (29 y.o.) Referring Provider (secondary): Dr. Partida Diagnosis: R buttock pain, sacral pain Treatment Diagnosis: back pain, SI pain Onset Date: 09/28/24 (Referral) PT Insurance Information: [facility] Total # of Visits Approved: [...] pelvic stability-Met STG Goal 3 Status:: Met Leather Belt Maker Goals Time Frame for Leather Belt Maker Goals : 16 Leather Belt Maker Goal 1: Improve functional mobility with Oswestry score <15/50 (from ) Correction Goal 2: Decrease R SI pain 4/10 at worst x3 days Treatment Tolerance: Treatment Tolerance: Tolerated treatment well. Post Treatment Pain: 4/10 Time In: 11;15 Time Out : 11:43 Timed Code Treatment Minutes: 28 Minutes Total Treatment Time: 28 Minutes Clara Castrejon, PT Date: 12/29/2024 documented in this encounter [facility] 12-27-2024 History of Present illness Narrative Images from the original note were not included. [facility] Outpatient Physical Therapy Daily Note Date: 12/27/2024 Patient Name: Meena Lucero : 1995 (29 y.o.) Referring Provider (secondary): Dr. Partida Diagnosis: R buttock pain, sacral pain Treatment Diagnosis: back pain, SI pain Onset Date: 09/28/24 (Referral) PT Insurance Information: [employer] Total # of Visits Approved: 16 Per [...] Status:: Met Correction Goals Time Frame for Leather Belt Maker Goals : 16 Leather Belt Maker Goal 1: Improve functional mobility with Oswestry score <15/50 (from 22/50) Leather Belt Maker Goal 2: Decrease R SI pain 4/10 at worst x3 days Treatment Tolerance: Treatment Tolerance: Tolerated treatment well. Post Treatment Pain: 5/10 Time In: 0900 Time Out: 0935 Timed Code Treatment Minutes: 35 Minutes Total Treatment Time: 35 Minutes Austen Puga PTA Date: 12/27/2024 documented in this encounter [facility] 12-22-2024 History of Present illness Narrative Images from the original note were not included. [facility] Outpatient Physical Therapy Daily Note Date: 12/22/2024 Patient Name: Meena Lucero : 1995 (29 y.o.) Referring Provider (secondary): Dr. Partida Diagnosis: R buttock pain, sacral pain Treatment Diagnosis: back pain, SI pain Onset Date: 09/28/24 (Referral) PT Insurance Information: [facility] Total # of Visits Approved: [...] pelvic stability Correction Goals Time Frame for Leather Belt Maker Goals : 16 Leather Belt Maker Goal 1: Improve functional mobility with Oswestry score <15/50 (from 22/50) Leather Belt Maker Goal 2: Decrease R SI pain 4/10 at worst x3 days Treatment Tolerance: Treatment Tolerance: Tolerated treatment well. Post Treatment Pain: 5-6/10 Time In: 0801 Time Out: 0836 Timed Code Treatment Minutes: 35 Minutes Total Treatment Time: 35 Minutes Austen Puga, VITA Date: 12/22/2024 documented in this encounter [facility] 12-20-2024 History of Present illness Narrative Images from the original note were not included. [facility] Outpatient Physical Therapy Daily Note Date: 12/20/2024 Patient Name: Meena Lucero : 1995 (29 y.o.) Referring Provider (secondary): Dr. Partida Diagnosis: R buttock pain, sacral pain Treatment Diagnosis: back pain, SI pain Onset Date: 09/28/24 (Referral) PT Insurance Information: [facility] Total # of Visits Approved: [...] mobility with Oswestry score <15/50 (from 22/50) Leather Belt Maker Goal 2: Decrease R SI pain 4/10 at worst x3 days Treatment Tolerance: Treatment Tolerance: Tolerated treatment well. Post Treatment Pain: 6/10 Time In: 9;00 Time Out : 9:26 Timed Code Treatment Minutes: 26 Minutes Total Treatment Time: 26 Minutes Clara Castrejon, PT Date: 12/20/2024 documented in this encounter [facility] 12-19-2024 History of Present illness Narrative [...] PO) Oral ALLERGIES Allergies Allergen Reactions Hydrocodone Meriwether Oil Hives Codeine Rash and Unknown Chest [...] nursing note reviewed. Exam conducted with a cyber security instructor present. Vitals: Estimated body mass index is [...] tolerance, 1 hour 4. Low platelet count ([facility]) D69.6 Platelet count 5. Thrombocytopenia affecting , antepartum ([facility]) O99.119 D69.6 6. Circumvallate placenta during [...] Gary Robison DO documented in this encounter [facility] 12-13-2024 History of Present illness Narrative Images from the original note were not included. [facility] Outpatient Physical Therapy Daily Note Date: 12/13/2024 Patient Name: Meena Lucero : 1995 (29 y.o.) Referring Provider (secondary): Dr. Partida Diagnosis: R buttock pain, sacral pain Treatment Diagnosis: back pain, SI pain Onset Date: 09/28/24 (Referral) PT Insurance Information: [employer] Total # of Visits Approved: 16 Per [...] hip abd 4+/5 for improved pelvic stability Leather Belt Maker Goals Time Frame for Leather Belt Maker Goals : 16 Correction Goal 1: Improve functional mobility with Oswestry score <15/50 (from ) Correction Goal 2: Decrease R SI pain 4/10 at worst x3 days Treatment Tolerance: Treatment Tolerance: Tolerated treatment well. Post Treatment Pain: 6/10 Time In: 0945 Time Out: 1018 Timed Code Treatment Minutes: 33 Minutes Total Treatment Time: 33 Minutes Austen Puga PTA Date: 12/13/2024 documented in this encounter [facility] 12-06-2024 History of Present illness Narrative Images from the original note were not included. [facility] Outpatient Physical Therapy Daily Note Date: 12/06/2024 Patient Name: Meena Lucero : 1995 (29 y.o.) Referring Provider (secondary): Dr. Partida Diagnosis: R buttock pain, sacral pain Treatment Diagnosis: back pain, SI pain Onset Date: 09/28/24 (Referral) PT Insurance Information: [facility] Total # of Visits Approved: [...] mobility with Oswestry score <15/50 (from 22/50) Leather Belt Maker Goal 2: Decrease R SI pain 4/10 at worst x3 days Treatment Tolerance: Treatment Tolerance: Tolerated treatment well. Post Treatment Pain: 6/10 Time In: 9:45 Time Out : 10:18 Timed Code Treatment Minutes: 33 Minutes Total Treatment Time: 33 Minutes Clara Castrejon, PT Date: 12/06/2024 Images from the original note were not included. [facility] Outpatient Physical Therapy Progress Report Date: 12/06/2024 Patient: Meena Lucero : 1995 Referring Provider (secondary): Dr. Partida Diagnosis: R buttock pain, sacral pain Treatment Diagnosis: back pain, SI pain Onset Date: 09/28/24 (Referral) PT Insurance Information: [facility] Total # of Visits Approved: [...] hip abd 4+/5 for improved pelvic stability Leather Belt Maker Goals Time Frame for Leather Belt Maker Goals : 16 Leather Belt Maker Goal 1: Improve functional mobility with Oswestry score <15/50 (from ) Leather Belt Maker Goal 2: Decrease R SI pain 4/10 at worst x3 days Clara Castrejon, PT Date: 12/06/2024 documented in this encounter [facility] 11-20-2024 History of Present illness Narrative [...] hours PRN ALLERGIES Allergies Allergen Reactions Hydrocodone Meriwether Oil Hives Codeine Rash and Unknown Chest [...] of: CANDACE Avitia documented in this encounter [facility] 10-17-2024 History of Present illness Narrative [...] hours PRN ALLERGIES Allergies Allergen Reactions Hydrocodone Meriwether Oil Hives Codeine Rash and Unknown Chest [...] nursing note reviewed. Exam conducted with a cyber security instructor present. Vitals: Estimated body mass index is [...] Gary Robison DO documented in this encounter [facility] 10-17-2024 History of Present illness Narrative Occupational Therapy [facility] Date: 10/17/2024 Patient Name: Meena Lucero : 1995 Pt Cancelled Appt due to no reason for cancel Trinity Harris Date: 10/17/2024 documented in this encounter [facility] 10-12-2024 History of Present illness Narrative Images from the original note were not included. [facility] Outpatient Physical Therapy Daily Note Date: 10/12/2024 Patient Name: Meena Lucero : 1995 (28 y.o.) Referring Provider (secondary): Dr. Partida Diagnosis: R buttock pain, sacral pain Treatment Diagnosis: back pain, SI pain Onset Date: 09/28/24 (Referral) PT Insurance Information: [facility] Total # of Visits Approved: 16 Per [...] pelvic stability Correction Goals Time Frame for Leather Belt Maker Goals : 16 Leather Belt Maker Goal 1: Improve functional mobility with Oswestry score <15/50 (from 50) Correction Goal 2: Decrease R SI pain 4/10 at worst x3 days Post Treatment Pain: 4/10 Time In: 8:00 Time Out : 8:33 Timed Code Treatment Minutes: 33 Minutes Total Treatment Time: 33 Minutes Clara Castrejon PT Date: 10/12/2024 documented in this encounter [facility] 10-04-2024 History of Present illness Narrative Physical Therapy [facility] Date: 10/04/2024 Patient Name: Meena Lucero : 1995 Pt Cancelled Appt due to therapist ill Trinity Harris Date: 10/04/2024 documented in this encounter [facility] 09-18-2024 History of Present illness Narrative Reason for Appointment: Patient ID: Meena Lucero is a 28 y.o. female who presents for Routine Visit Patient presents today for Return OB appointment. MEDICATIONS Current Outpatient Medications Medication Instructions 27-1 MG tablet Every 24 hours MV-Min-Fe Fum-FA-DHA ( 1 PO) Oral promethazine (PHENERGAN) 12.5 mg, Oral, Every 6 hours PRN ALLERGIES Allergies Allergen Reactions Hydrocodone Meriwether Oil Hives Codeine Rash and Unknown Chest [...] nursing note reviewed. Exam conducted with a cyber security instructor present. Vitals: Estimated body mass index is [...] or undercooked meat, and stay away from [facility]. Patient has been consulted regarding any [...] Gary Robison DO documented in this encounter [facility] 08-18-2024 History of Present illness Narrative [...] Date CHOLECYSTECTOMY TONSILLECTOMY Allergies Allergen Reactions Hydrocodone Meriwether Oil Hives Codeine Rash and Unknown Chest [...] screen, urine; Future Nurse Note: Pt given [place] [facility] and advised to have labs done [...] Daxa Martinez MA documented in this encounter [facility] 07-27-2024 History of Present illness Narrative Images from the original note were not included. [facility] Outpatient Physical Therapy Daily Note Date: 07/27/2024 Patient Name: Meena Lucero : 1995 (28 y.o.) Referring Provider (secondary): Dr. Partida Diagnosis: Sacral pain Treatment Diagnosis: SI pain Onset Date: 05/29/24 PT [facility] Information[facility] Total # of Visits Approved: 16 Per [...] Goals Short Term Goal 1: STG= LTG Leather Belt Maker Goals Time Frame for Correction Goals : 16 visits Leather Belt Maker Goal 1: Decrease subjective SI/right gluteal pain to <3/10 with activity and transitional movements Post Treatment Pain: 510 Time In: 0910 Time Out : 09 Timed Code Treatment Minutes: 25 Minutes Total Treatment Time: 25 Minutes Onel Davis, PT Date: 07/27/2024 documented in this encounter [facility] 07-06-2024 History of Present illness Narrative Images from the original note were not included. [facility] Outpatient Physical Therapy Daily Note Date: [...] asymetry- MET Correction Goals Time Frame for Correction Goals : 10 visits Correction Goal 1: Decrease subjective SI/right gluteal pain to <3/10 with activity and transitional movements Leather Belt Maker Goal 2: Upgrade HEP for pelvic stab ex Correction Goal 3: Maintain symetrical pelvic alignment for 5 consecutive days Post Treatment Pain: 4/10 Time In: 0910 Time Out : 0945 Timed Code Treatment Minutes: 35 Minutes Total Time: 35 Minutes ASIA MIX PT Date: 07/06/2024 documented in this encounter [facility] 06-29-2024 History of Present illness Narrative Images from the original note were not included. [facility] Outpatient Physical Therapy Daily Note Date: 06/29/2024 Patient Name: eMena Lucero : 1995 (28 y.o.) Referring Provider [...] strengthening for self-correction of pelvic asymetry- MET Leather Belt Maker Goals Time Frame for Correction Goals : 10 visits Leather Belt Maker Goal 1: Decrease subjective SI/right gluteal pain to <3/10 with activity and transitional movements Correction Goal 2: Upgrade HEP for pelvic stab ex Leather Belt Maker Goal 3: Maintain symetrical pelvic alignment for 5 consecutive days Post Treatment Pain: 2-3/10 Time In: 0915 Time Out : 0955 Timed Code Treatment Minutes: 35 Minutes Total Time: 40 Minutes ASIA MIX PT Date: 06/29/2024 documented in this encounter [facility] [employer] 01-10-2023 Hospital Discharge instructions Best Canales MD - 01/10/2023 3:17 PM EST There was a possible concern for fracture of the fibula. Please follow-up with Dr. Rehman for further evaluation and be sure to use crutches and be nonweightbearing until then. The following attachments cannot be sent through Care Everywhere.Ankle Sprain ([place]an)documented in this encounter [facility] [employer] Work Phone: 12-08-2022 Hospital Discharge instructions Patient [...] and water are not available, use hand inspector government property. Make sure that all people in your household wash their hands well and often. Take pmxm-lxo-uhxfnlb and prescription medicines only as told by [...] and water are not available, use hand inspector government property. This information is not intended to replace advice given to you by your health care provider. Make sure you discuss any questions you have with your health care provider. Document Released: 11/08/2006 Document Revised: 04/26/2020 Document Reviewed: 09/13/2019 [employer] Patient Education 2020 [employer]. Follow Up Care 12/08/2022 09:17:52 With:Keyon DAVIS MD, FAM Address: When: only if needed [facility] [place] 12-04-2022 Hospital Discharge instructions Jason Tracy MD - 12/04/2022 4:33 PM EST Increase fluids at home. Take Zofran for any nausea. Try Imodium/loperamide for diarrhea. Call primary care doctor for close follow-up. Use Tylenol or Motrin to keep fever down. The following attachments cannot be sent through Care Everywhere.Viral Infections ([place]rit[place]an)documented in this encounter [facility] [employer] Work Phone: 06-01-2022 Hospital Discharge instructions Patient [...] height. This can be done either in [place] or metric measurements. Note that charts are available to help you find your BMI quickly and easily without having to do these calculations yourself. To calculate your BMI in [place] ([place] measurements, your health care provider will: [...] medical problems. BMI can be measured using [place]an measurements or metric measurements. To interpret your [...] 07/20/2005 Document Revised: 10/21/2018 Document Reviewed: 09/21/2018 [employer] Patient Education 2020 [employer] 06/01/2022 13:15:39 Carpal Tunnel Syndrome Carpal [...] Having a job, such as being a park keeper or a head cashier, that requires you to repeatedly move [...] 3 times per day. General instructions Take ufxp-zda-nyxddzz and prescription medicines only as told by [...] 11/05/2001 Document Revised: 03/17/2019 Document Reviewed: 03/17/2019 [employer] Patient Education 2020 [employer] Follow Up Care 05/28/2022 08:22:05 With:Meena Carl CNP Address: When: only if needed [facility] Evaluation + Plan note [facility] Evaluation note Diagnosis Subacute bronchitis- Primary Acute bronchitis documented in this encounter [employer] Phone: evaluation note* Diagnosis Left wrist pain Pain in joint, forearm documented in this encounter [facility] [employer] Phone: evaluation note* Diagnosis Viral illness- Primary Unspecified viral infection, in conditions classified elsewhere and of unspecified site documented in this encounter [employer] Phone: evaluation note* Diagnosis Injury of right ankle, initial encounter- Primary documented in this encounter [employer] Phone: evaluzhvco note* Diagnosis Other closed fracture of proximal end of right fibula with routine healing, subsequent encounter documented in this encounter [employer] Phone: evalmiqjqe note* Diagnosis First trimester state, incidental 11 [...] HealthcareEvaluation note* Diagnosis Third trimester state, incidental 37 weeks gestation of Macrosomia of fetus affecting management of mother, antepartum, fetus 1 of multiple gestation documented [facility] Narrative No data available for this section [facility] Hospital Discharge instructions* Attachments The following attachments cannot be sent through Care Everywhere. 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 Purpose Family History No Family History [...] Care Team (unrecognized sect ion and content) Tile Classifier Relationship Specialty Start Date End Date Keyon Davis MD [address] [place] [address] [place] [address] PCP - General Family Medicine 12/04/22 Tile Classifier Relationship Specialty Start Date End Date Keyon Davis MD [address] [place] [address] PCP - General Family Medicine 12/04/22 Tile Classifier Relationship Specialty Start Date End Date Keyon Davis MD [address] [place] [address] [place] [address] PCP - General Family Medicine 12/04/22 Tile Classifier Relationship Specialty Start Date End Date Óscar Villagran DNP [address] [phone] PCP - General Family Nurse Practitioner 03/14/24 Tile Classifier Relationship Specialty Start Date End Date Óscar Villagran DNP [address] [phone] PCP - General Family Nurse Practitioner 03/14/24 Tile Classifier Relationship Specialty Start Date End Date Óscar Villagran DNP [address] [place] [phone] PCP - General Family Nurse Practitioner 03/14/24 Tile Classifier Relationship Specialty Start Date End Date Óscar Villagran DNP [address] [place] [phone] PCP - General Family Nurse Practitioner 03/14/24 Tile Classifier Relationship Specialty Start Date End Date Keyon Davis MD [address] [place] [address] [place] [address] PCP - General 05/12/23 Gary Robison, DO [address], [place] [id number] PCP - [facility] 02/21/24 Tile Classifier Relationship Specialty Start Date End Date Keyon Davis MD [address] [place] [address] PCP - General 05/12/23 Gary Robison, DO [address], [place] [phone] PCP [facility] 02/21/24 Tile Classifier Relationship Specialty Start Date End Date Óscar Villagran DNP [address] [place] [phone] PCP - General Family Nurse Practitioner 03/14/24 Tile Classifier Relationship Specialty Start Date End Date Keyon Davis MD [address] [phone] PCP - General 05/12/23 Gary Robison, DO [facility] [address], [id number] PCP [facility] 02/21/24 Tile Classifier Relationship Specialty Start Date End Date Keyon Davis MD [address] [place] [address] PCP - General 05/12/23 Gary Robison, DO [address] [place] [address] [facility] Health 02/21/24 Tile Classifier Relationship Specialty Start Date End Date Keyon Davis MD [address] [place] [phone] PCP - General 05/12/23 Gary Robison DO [facility] [place] [phone] PCP - [facility] 02/21/24 Tile Classifier Relationship Specialty Start Date End Date Keyon Davis MD [facility] [place] [phone] PCP - General 05/12/23 Gary Robison DO [facility] [place] [address] PCP - [facility] 02/21/24 Tile Classifier Relationship Specialty Start Date End Date Keyon Davis MD [facility] [place] [phone] PCP - General 05/12/23 Gary Robison DO [facility] [place] [phone] PCP - [facility] 02/21/24 Tile Classifier Relationship Specialty Start Date End Date Óscar Villagran DNP [address] [place] [phone] PCP - General Family Nurse Practitioner 03/14/24 Tile Classifier Relationship Specialty Start Date End Date Keyon Davis MD [facility] [place] [phone] PCP - General 05/12/23 Gary Robison, [facility] [place], [facility] PCP - [facility] 02/21/24 Tile Classifier Relationship Specialty Start Date End Date Keyon Davis MD [address] [place] [phone] PCP - General 05/12/23 Gary Robison, [facility] [place] [address] PCP - [facility] 02/21/24 Tile Classifier Relationship Specialty Start Date End Date Óscar Villagran DNP [address] [place], [place] [phone] PCP - General Family Nurse Practitioner 03/14/24 Tile Classifier Relationship Specialty Start Date End Date Keyon Davis MD [facility] [place] [phone] PCP - General 05/12/23 Gary Robison, [facility] [place] [phone] PCP - [facility] 02/21/24 Tile Classifier Relationship Specialty Start Date End Date Keyon Davis MD [facility] [place] [phone] PCP - General 05/12/23 Gary Robison [place] [facility] [place] [address] PCP [facility] 02/21/24 Tile Classifier Relationship Specialty Start Date End Date Aljeffrao Óscar HUMA Moreno [address] [place] [address] [place] [phone] PCP - General Family Nurse Practitioner 03/14/24 Tile Classifier Relationship Specialty Start Date End Date Keyon Davis MD [address] [place], [place] [address] [address] PCP - General 05/12/23 Gary Robison, [facility] [place] [address] PCP [facility] 02/21/24 Tile Classifier Relationship Specialty Start Date End Date Keyon Davis MD [address] [place], [place] [address]y [place] [phone] PCP - General 05/12/23 Gary Robison, DO [facility] [place] [address] PCP [facility] 02/21/24 Tile Classifier Relationship Specialty Start Date End Date Keyon Davis MD [address] [place], [place] [address]y [place] [phone] PCP - General 05/12/23 Gray Robison, [facility] [place] [address] PCP [facility] 02/21/24 INFORMATION SOURCE (unrecogn ized section and content) DATE CREATED AUTHOR 02/01/2023 Papito Monge [facility] DATE CREATED AUTHOR AUTHOR'S ORGANIZ ATION 04/01/2023 [facility] DATE CREATED AUTHOR AUTHOR'S ORGANIZ ATION 02/15/2025 Kirsty charles DATE CREATED AUTHOR AUTHOR'S ORGANIZ ATION 03/22/2025 [facility] FOR RECORDS PERTAINING TO PATIENTS [...] BE BASED ON THE PRIMARY CLINICAL RECORDS. [facility] [employer] [facility]. provides no warranty or guarantee of the accuracy or completeness of information in this document.
== END 2025-04-11 12:23 | disposition home or self-care (01) ==
LOC: FBCO 10:26
PROVIDERS: Visit Provider Obstetrics & Gynecology
DX: Z39.1 Encounter for care and examination of lactating mother (principal)